=== PATIENT | male | born 1990 | race Two or more races ===

== ENCOUNTER 2016-12-29 13:28 | Inpatient (IN) | payer OTHER ==
--- NOTE | 2016-12-29 13:58 | PDOC ---
History of Present Illness - General History Source: EMS, Retirement Records, Old Records Exam Limitations: Clinical Condition - History of Present Illness Initial Comments: 12/29/16 16:01 The patient is a 26 year old male, with a significant past medical history of Cerebral palsy with spastic quadriparesis, severe developmental delay, Microcephaly, intractable seizures, cortical blindness, asthma, L hip Osteotomy , Scoliosis, Constipation, dysphagia BIBA from [facility] who presents to the emergency department s/p respiratory distress. As per EMS, the patient was found to be febrile, tachypneic, tachycardic and in respiratory distress saturating at 88%. Patient was sweating profusely in the [facility]. Patient received 2 Duonebs, additional nebulizer treatments and was suctioned. Subsequently, patient's O2 saturation zoila to 97% and was sent into the ED for further evaluation. Patient is a poor historian secondary to profound mental retardation. [facility] as patient is non verbal at baseline. Allergies: bee venom (honey bee), phenobarbita, pork derived (porcine) Past surgical history: See chart Social history: Noncontributory PCP: None <Bernice Riddle - Last Filed: 12/29/16 17:15> - General History Source: Retirement Records, Old Records Exam Limitations: Clinical Condition <Eboni Prasad - Last Filed: 12/30/16 09:19> - General Stated Complaint: RESPIRATORY Time Seen by Provider: 12/29/16 13:46 Past History <Bernice Riddle - Last Filed: 12/29/16 17:15> - Past Medical History Asthma: Yes COPD: Yes (asthma) GI Disorders: Yes (dysphagia, s/p peg insertion) Psychiatric Problems: (hyponatremia (due to meds)) Seizures: Yes - Surgical History Orthopedic Surgery: (Left Hip Osteotomy) - Immunization History Immunization Up to Date: Yes - Psycho/Social/Smoking Cessation Hx Suicidal Ideation: No Smoking History: Never smoked Have you smoked in the past 12 months: No Number of Cigarettes Smoked Daily: 0 Cigars Per Day: 0 Hx Alcohol Use: No Drug/Substance Use Hx: No Substance Use Type: None Hx Substance Use Treatment: No <Eboni Prasad - Last Filed: 12/30/16 09:19> - Past Medical History Allergies/Adverse Reactions: Allergies Allergy/AdvReac Type Severity Reaction Status Date / Time phenobarbital Allergy Verified 05/21/15 21:46 pork derived (porcine) Allergy Verified 05/21/15 21:46 venom-honey bee Allergy Verified 05/21/15 21:46 [bee venom (honey bee)] Home Medications: Ambulatory Orders Acetaminophen [Tylenol] 480 mg GT PRN PRN 01/19/15 Albuterol 2.5/Ipratropium 0.5 [Duoneb -] 1 neb IH QID PRN 01/19/15 Baclofen 20 mg PO BID 01/19/15 Cholecalciferol (Vitamin D3) [Vitamin D3] 2,000 unit GT DAILY 01/19/15 Clonidine HCl [Clonidine HCl ER] 0.2 mg PO HS 01/19/15 Diazepam *Pediatric Rectal* [Diastat *Pediatric Rectal Gel* -] 20 mg RC PRN Levetiracetam [Keppra Oral Solution -] 1,500 mg GT BID 01/19/15 Omeprazole [Prilosec] 20 mg GT DAILY 01/19/15 Budesonide [Pulmicort 0.5 mg Nebulizer -] 1 neb NEB BID 02/15/16 Tamsulosin HCl [Flomax -] 0.4 mg PO DAILY@0830 #30 cap.er.24h 02/25/16 Review of Systems - Review of Systems Able to Perform ROS?: No Comments:: 12/29/16 16:02 ROS unable to obtain due to clinical condition <Bernice Riddle - Last Filed: 12/29/16 17:15> *Physical Exam - Vital Signs Last Vital Signs Temp Pulse Resp BP Pulse Ox 98.2 F 129 H 22 122/88 98 12/29/16 13:57 12/29/16 13:57 12/29/16 13:57 12/29/16 13:57 12/29/16 13:57 - Physical Exam Comments: 12/29/16 16:02 GENERAL: The patient is in no acute distress. +contracted HEAD: Normal with no signs of trauma. EYES: PERRLA, EOMI, sclera anicteric, conjunctiva clear. ENT: Ears normal, nares patent, oropharynx clear without exudates. Moist mucous membranes. NECK: Normal range of motion, supple without lymphadenopathy, JVD, or masses. LUNGS: Breath sounds equal, clear to auscultation bilaterally. No wheezes, and no crackles. +Bilateral diffuse rhonchi. HEART:Regular rate and rhythm, normal S1 and S2 without murmur, rub or gallop. ABDOMEN: Soft, nontender, normoactive bowel sounds. No guarding, no rebound. EXTREMITIES: Normal range of motion, no edema. No clubbing or cyanosis. No erythema, or tenderness. NEUROLOGICAL: Cranial nerves II through XII grossly intact. No focal neurological deficits. MUSCULOSKELETAL: Back nontender to palpation, no CVA tenderness SKIN: Warm, Dry, normal turgor, no rashes or lesions noted. <Bernice Riddle - Last Filed: 12/29/16 17:15> Heart Score/ECG Review #1 ECG reviewed & interpreted by me at: 15:06 12/29/16 15:06 EKG: Sinus tachycardia rate of 109 bpm Chloride is normal Intervals: TN: 162ms, QRS:88ms, QTc: 417ms ? ST elevation II, t wave inversion v3 <Eboni Prasad - Last Filed: 12/30/16 09:19> ED Treatment Course - LABORATORY CBC & Chemistry Diagram: 12/29/16 14:26 12/29/16 14:00 <Bernice Riddle - Last Filed: 12/29/16 17:15> - LABORATORY CBC & Chemistry Diagram: 12/30/16 05:15 12/30/16 05:15 - RADIOLOGY Radiology Studies Ordered: Category Date Time Status CHEST X-RAY PORTABLE* [RAD] Stat Radiology 12/29/16 13:46 Ordered <Eboni Prasad - Last Filed: 12/30/16 09:19> Medical Decision Making - Medical Decision Making 12/29/16 14:23 Dr. Elizondo paged via phone answering service at 2:[address] Messina material handler floorperson, paged overhead at 2:24 PM <Bernice Riddle - Last Filed: 12/29/16 17:15> - Critical Care Time Total Critical Care Time (minutes): 60 Critical Care Statement: The care of this patient involved high complexity decision making to prevent further life threatening deterioration of the patient 's condition and/or to evalute & treat vital organ system(s) failure or risk of failure. - Medical Decision Making 12/29/16 13:57 A portion of this note was documented by scribe services under my direction. I have reviewed the details of the note, within reason, and agree with the documentation with the following case summary and management plan written by me. Nursing documentation reviewed and incorporated into medical decision making This is a 26 yo M from [place] who presents to the ER due to fevers, hypoxia and hypotension The patient is unable to give a history Per intermediate records, the patient was tachypneic, was give a neb which improved his hypoxia On examination: contractures Rhoncherous breath sounds diffusely No abd tendernesS??? Pt is 12/29/16 14:25 EKG concerning for ischemia I believe this is unlikely That said, will contact cardiology 12/29/16 15:14 Cardiology has seen this patient 12/29/16 16:11 Laboratory Tests 12/29/16 12/29/16 12/29/16 14:00 14:26 14:26 WBC 16.6 H D Hgb 14.2 D Hct 43.9 D Plt Count 316 Neutrophils % 86.4 H D Lymphocytes % 4.3 L D Sodium 137 Potassium 4.0 Chloride 99 Carbon Dioxide 26 BUN 11 Creatinine 0.7 D Random Glucose 68 L Lactic Acid 5.238 H* Creatine Kinase 628 H D Troponin I < 0.02 12/29/16 16:[address] Quintero Will admit to the ICU given temp 102, hypotension, elevated lactate, leukocytosis Given Vancomycin and Zosyn <Eboni Prasad - Last Filed: 12/30/16 09:19> *DC/Admit/Observation/Transfer - Attestations Scribe Attestion: 12/29/16 16:02 Documentation prepared by Bernice Riddle, acting as medical staff coordinator for Eboni Prasad MD/DO. <Brenice Riddle - Last Filed: 12/29/16 17:15> - Discharge Dispostion Admit: Yes <Eboni Prasad - Last Filed: 12/30/16 09:19> Diagnosis at time of Disposition: Sepsis Qualifiers: Sepsis type: sepsis due to unspecified organism Qualified Code(s): A41.9 - Sepsis, unspecified organism - Discharge Dispostion Condition at time of disposition: Guarded
[2016-12-29] MEDS ORDERED: SODIUM CHLORIDE 1,000 ML IV STA (14:08)
[2016-12-29 14:52] LABS: BASOPHIL 0.3 % (0-2.0); EOSINOPHIL 0.1 % (0-4.5); MCH 27.3 pg (25.7-33.7); MCHC 32.4 g/dl (32.0-35.9); MEAN CELL VOLUME 84.4 fl (80-96); MEAN PLT VOLUME 7.9 fl (7.5-11.1); NEUTROPHILS 86.4 % (42.8-82.8); PLATELET COUNT 316 K/MM3 (134-434); RDW 14.9 % (11.9-15.9); WHITE BLOOD COUNT 16.6 K/mm3 (4.0-10.0)
--- NOTE | 2016-12-29 15:05 | CON.CARD ---
[id number] Present Illness History of Present Illness: The patient is a 26 year old male, with a significant past medical history of Cerebral palsy with spastic quadriparesis, severe developmental delay, Microcephaly, intractable seizures, cortical blindness, asthma, L hip Osteotomy , Scoliosis, Constipation, dysphagia BIBA from [facility] who presents to the emergency department s/p respiratory distress. As per EMS, the patient was found to be febrile, tachypneic, tachycardic and in respiratory distress saturating at 88%. Patient was sweating profusely in the halfway. Patient received 2 Duonebs, additional nebulizer treatments and was suctioned. Subsequently, patient's O2 saturation zoila to 97% and was sent into the ED for further evaluation. Patient is a poor historian secondary to profound mental retardation. History provided by EMS, [facility] records as patient is non verbal at baseline. 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, Other (CP) Pulmonary: Yes: Asthma Musculoskeletal: Yes: Other (scoliosis) - Past Surgical History Past Surgical History: Yes: None - Alcohol/Substance Use Hx Alcohol Use: No History of Substance Use: reports: None - Smoking History Smoking history: Never smoked Have you smoked in the past 12 months: No Aproximately how many cigarettes per day: 0 - Social History Usual Living Arrangement: Half-Way ADL: Support Services History of Recent Travel: No Home Medications - Allergies Allergies/Adverse Reactions: Allergies Allergy/AdvReac Type Severity Reaction Status Date / Time phenobarbital Allergy Verified 05/21/15 21:46 pork derived (porcine) Allergy Verified 05/21/15 21:46 venom-honey bee Allergy Verified 05/21/15 21:46 [bee venom (honey bee)] - Home Medications Home Medications: Ambulatory Orders Acetaminophen [Tylenol] 480 mg GT PRN PRN 01/19/15 Albuterol 2.5/Ipratropium 0.5 [Duoneb -] 1 neb IH QID PRN 01/19/15 Baclofen 20 mg PO BID 01/19/15 Cholecalciferol (Vitamin D3) [Vitamin D3] 2,000 unit GT DAILY 01/19/15 Clonidine HCl [Clonidine HCl ER] 0.2 mg PO HS 01/19/15 Diazepam *Pediatric Rectal* [Diastat *Pediatric Rectal Gel* -] 20 mg RC PRN Levetiracetam [Keppra Oral Solution -] 1,500 mg GT BID 01/19/15 Omeprazole [Prilosec] 20 mg GT DAILY 01/19/15 Budesonide [Pulmicort 0.5 mg Nebulizer -] 1 neb NEB BID 02/15/16 Tamsulosin HCl [Flomax -] 0.4 mg PO DAILY@0830 #30 cap.er.24h 02/25/16 Review of Systems Unable to obtain ROS, reason: mental retarded; nonveral - Risk Factors Known Risk Factors: Yes: Physical Inactivity, Other (microencephaly) Vital Signs: Vital Signs Temperature 98.2 F 12/29/16 13:57 Pulse Rate 129 H 12/29/16 13:57 Respiratory Rate 22 12/29/16 13:57 Blood Pressure 122/88 12/29/16 13:57 O2 Sat by Pulse Oximetry (%) 98 12/29/16 13:57 Constitutional: Yes: Other (difficult to assess; appears in distress) Eyes: Yes: WNL HENT: Yes: Other (microencephaly; ? surgical scars of skull) Neck: Yes: Decreased ROM Respiratory: Yes: Tachypnea Gastrointestinal: Yes: Soft Renal/: No: Anuria Cardiovascular: Yes: Tachycardia JVD: No Carotid Bruit: No PMI: Non-Displaced Heart Sounds: Yes: S1, S2 Murmur: Yes: Systolic Murmur, Grade 2 Musculoskeletal: Yes: Muscle Weakness, Other (hands folded in and rigid; tremors of limbs) Edema: No Neurological: Yes: Pre-Existing Deficit, Tremors, Weakness Psychiatric: Yes: Other Imaging - Results EKG: Image Reviewed (sinus tachycardia; ST elevation 1 mV lead II; [address] depression V1, flat ST V2, mild depression V3) Problem List - Problems (1) Acute urinary retention Code(s): R33.8 - OTHER RETENTION OF URINE (2) Cerebral palsy Code(s): G80.9 - CEREBRAL PALSY, UNSPECIFIED Qualifiers: Cerebral palsy type: unspecified type Qualified Code(s): G80.9 - Cerebral palsy, unspecified (3) Hypoxemia Code(s): R09.02 - HYPOXEMIA (4) Lactic acidosis Assessment/Plan: markedly elevated latic acid; leukocytosis; tachypnea, tachycardia. F/u blood, urine cultures; on antibiotics. Code(s): E87.2 - ACIDOSIS (5) Pneumonia Code(s): J18.9 - PNEUMONIA, UNSPECIFIED ORGANISM Qualifiers: Pneumonia type: due to unspecified organism Laterality: left Lung location: lower lobe of lung Qualified Code(s): J18.1 - Lobar pneumonia, unspecified organism (6) Tachycardia Code(s): R00.0 - TACHYCARDIA, UNSPECIFIED (7) Tachypnea Code(s): R06.82 - TACHYPNEA, NOT ELSEWHERE CLASSIFIED (8) EKG abnormalities Assessment/Plan: EKG: sinus tachycardia; ?LAE; RAD; LVH; ST elevation lead II; R wave with mild ST depression V1 and V3. R/o infero-posterior NH, though pt is young, has LDL cholesterol 102, normal triglycerides and HDL 59 mg/dL. Septic. EKG with "posterior leads" (V7-9): no clear evidence of ST elevation. TNI serially (1st is 0.02). ECHO for LVEF, wall motion. TSH WNL. Consider IV heparin or Lovenox, statin. Treat septic state. Given pt's overall condition and mental status, I would recommend conservative therapy, even in the face of an NH. Code(s): R94.31 - ABNORMAL ELECTROCARDIOGRAM [ECG] [EKG] (9) Seizure Code(s): R56.9 - UNSPECIFIED CONVULSIONS
[2016-12-29 15:12] LABS: ALK PHOS 127 U/L (45-117); ANION GAP 12 (8-16); BILIRUBIN,TOTAL 0.3 mg/dL (0.2-1.0); CALCIUM 9.2 mg/dL (8.5-10.1); CO2 26 mmol/L (21-32); COCKROFT - GAULT 132.4; CREATININE 0.7 mg/dL (0.7-1.3); GLUCOSE,RANDOM 68 mg/dL (74-106); SGOT/AST 22 U/L (15-37); SGPT/ALT 34 U/L (12-78); TOT PROT 9.4 g/dl (6.4-8.2)
[2016-12-29 15:38] LABS: INR 1.25 (0.82-1.09); PROTHROMBIN TIME (PATIENT) 13.8 SEC (9.98-11.88)
[2016-12-29 15:40] LABS: ACTIVATED PTT 38.4 SECONDS (26.9-34.4)
[2016-12-29 15:50] LABS: CHOLESTEROL 168 mg/dL (50-200); LDL CHOLESTEROL (ONLY SJRH) 102 mg/dL (5-100)
[2016-12-29] MEDS ORDERED: PIPERACILLIN/TAZOB 3.375 GM/50 ML PRE-DOCKED IVPB ONE (15:52)
[2016-12-29] MEDS ORDERED: VANCOMYCIN 1,000 MG in DEXTROSE 5%-WATER - 250 ML IVPB ONE (15:52)
[2016-12-29 15:57] LABS: THYROID STIMULATING HORMONE 0.97 uIU/ml (0.358-3.74); TROPONIN I < 0.02 ng/ml (0.00-0.05)
[2016-12-29 15:59] LABS: URINE APPEARANCE CLEAR; URINE BILIRUBIN NEGATIVE (NEGATIVE); URINE BLOOD NEGATIVE (NEGATIVE); URINE COLOR STRAW; URINE GLUCOSE (UA) NEGATIVE (NEGATIVE); URINE KETONE NEGATIVE (NEGATIVE); URINE LEUK ESTERASE NEGATIVE (NEGATIVE); URINE NITRITE NEGATIVE (NEGATIVE); URINE PROTEIN NEGATIVE (NEGATIVE); URINE UROBILINOGEN NEGATIVE E.U./dl (0.2-1.0)
[2016-12-29] MEDS ORDERED: PIPERACILLIN/TAZOB 3.375 GM 50 ML IVPB ONE (16:06)
[2016-12-29] MEDS ORDERED: VANCOMYCIN 1 GRAM (PRE-DOCKED) 250 ML IVPB ONE (16:06)
[2016-12-29] MEDS ORDERED: ALBUTEROL SO4 0.083% IH SOL 2.5 MG/3 ML VIAL.NEB. NEB ONE ×2 (16:52→17:38)
[2016-12-29] MEDS ORDERED: methylPREDNISolone NA SUCC 125 MG/2 ML VIAL IVPB ONE (16:52)
--- NOTE | 2016-12-29 17:24 | HP ---
Admitting History and Physical - Admission Chief Complaint: hypoxia, tachycardia, tachypnea History of Present Illness: HPI: This is a 26 year old male of [facility] with PMHX of Cerebral palsy with spastic quadriparesis, severe developmental delay, Microcephaly, intractable seizures, cortical blindness, asthma, L hip Osteotomy, Scoliosis, Constipation, dysphagia BIBA presenting to the ED for resp distress. The patient is non verbal with MR at baseline. Information gathered from medical chart and ED record. Per EMS pt was diaphoretic, febrile, tachypneic and tachycardic with o2 saturation of 88% at [place]. He was given duonebs x2, suctioned and a third neb treatment with o2 sat rising to 97%. He is on chronic o2 There is an independent aid at the bedside. ED course: 1. Vanco/zosyn 2. Solumedrol 125mg 3. Lactic acid level 5.2 4. 1L bolus 5. EKG showed: Sinus tachycardia; ?LAE; RAD; LVH; ST elevation lead II; R wave with mild ST depression V1 and V3, posterior, seen by Cardiology r/o infero- posterior VT EKG with "posterior leads" (V7-9). 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, Other (CP) Pulmonary: Yes: Asthma Musculoskeletal: Yes: Other (scoliosis) - Past Surgical History Past Surgical History: Yes: None - Smoking History Smoking history: Never smoked Have you smoked in the past 12 months: No Aproximately how many cigarettes per day: 0 - Alcohol/Substance Use Hx Alcohol Use: No History of Substance Use: reports: None - Social History Usual Living Arrangement: Yes: Assisted Living ADL: Support Services History of Recent Travel: No Home Medications - Allergies Allergies/Adverse Reactions: Allergies Allergy/AdvReac Type Severity Reaction Status Date / Time phenobarbital Allergy Verified 05/21/15 21:46 pork derived (porcine) Allergy Verified 05/21/15 21:46 venom-honey bee Allergy Verified 05/21/15 21:46 [bee venom (honey bee)] - Home Medications Home Medications: Ambulatory Orders Acetaminophen [Tylenol] 480 mg GT PRN PRN 01/19/15 Albuterol 2.5/Ipratropium 0.5 [Duoneb -] 1 neb IH QID PRN 01/19/15 Baclofen 20 mg PO BID 01/19/15 Cholecalciferol (Vitamin D3) [Vitamin D3] 2,000 unit GT DAILY 01/19/15 Clonidine HCl [Clonidine HCl ER] 0.2 mg PO HS 01/19/15 Diazepam *Pediatric Rectal* [Diastat *Pediatric Rectal Gel* -] 20 mg RC PRN Levetiracetam [Keppra Oral Solution -] 1,500 mg GT BID 01/19/15 Omeprazole [Prilosec] 20 mg GT DAILY 01/19/15 Budesonide [Pulmicort 0.5 mg Nebulizer -] 1 neb NEB BID 02/15/16 Tamsulosin HCl [Flomax -] 0.4 mg PO DAILY@0830 #30 cap.er.24h 02/25/16 Review of Systems Unable to obtain ROS, reason: Non verbal at baseline Physical Examination Vital Signs: Vital Signs Temperature 97.6 F 12/29/16 15:33 Pulse Rate 79 12/29/16 15:33 Respiratory Rate 20 12/29/16 15:33 Blood Pressure 107/88 12/29/16 15:33 O2 Sat by Pulse Oximetry (%) 100 12/29/16 15:33 Constitutional: Yes: Diaphoresis Eyes: Yes: Conjunctiva Clear Neck: Yes: Supple Cardiovascular: Yes: Regular Rate and Rhythm, S1, S2 Respiratory: Yes: On Nasal O2, Rhonchi (bilateral), Other (gurgling) Gastrointestinal: Yes: Normal Bowel Sounds, Soft, Other (peg tube placed) Renal/: Yes: Qureshi Present (clear yellow urine) Extremities: Yes: Other (b/l UE contractrues) Edema: Yes (pedal edema +1) Integumentary: Yes: Other (PIV to B/l Lower extremeties) Neurological: Yes: Alert, Pre-Existing Deficit, Other (non verbal at baseline) Labs: CBC, BMP 12/29/16 14:26 12/29/16 14:00 Imaging - Results Chest X-ray: Report Reviewed (no acute pathology) Problem List - Problems (1) EKG abnormalities Code(s): R94.31 - ABNORMAL ELECTROCARDIOGRAM [ECG] [EKG] (2) Sepsis Code(s): A41.9 - SEPSIS, UNSPECIFIED ORGANISM Qualifiers: Sepsis type: sepsis due to unspecified organism Qualified Code(s): A41.9 - Sepsis, unspecified organism (3) Cerebral palsy Code(s): G80.9 - CEREBRAL PALSY, UNSPECIFIED Qualifiers: Cerebral palsy type: unspecified type Qualified Code(s): G80.9 - Cerebral palsy, unspecified (4) Hypoxemia Code(s): R09.02 - HYPOXEMIA (5) Lactic acidosis Code(s): E87.2 - ACIDOSIS (6) Pneumonia Code(s): J18.9 - PNEUMONIA, UNSPECIFIED ORGANISM Qualifiers: Pneumonia type: due to unspecified organism Laterality: left Lung location: lower lobe of lung Qualified Code(s): J18.1 - Lobar pneumonia, unspecified organism (7) Seizure Code(s): R56.9 - UNSPECIFIED CONVULSIONS (8) Tachycardia Code(s): R00.0 - TACHYCARDIA, UNSPECIFIED (9) Tachypnea Code(s): R06.82 - TACHYPNEA, NOT ELSEWHERE CLASSIFIED Assessment/Plan Assessment: 26 year old male admitted with lactic acidemia, PNA, and hypoxemia Plan: 1. Sepsis d/t possible HCAP - CXR negative for acute pathology - s/p vanco/zosyn in ED - Continue zosyn - Continue solumedrol for gurgling and rhonchi 40mg q8 - Duo nebs q4 magda - IVF @ 100cc/hr - Continue supplemental o2 - Repeat lactic acid level in 4 hrs - Sputum cx - CXR in AM - Follow blood and urine cultures - Viral panel - ICU monitoring - ID consulted 2. Lactic acidemia - Repeat level @1900 - Cont IVF; bolus as needed 3. Ischemic changes - Trop x1 negative - Cont serial trops - ECHO in AM assess LV - Cardiology seeing 4. Seizure - Continue Keppra 5. Chronic urinary retention - Flomax daily - Admitted with qureshi 6. HTN - Hold Clonidine 7. Hypoxemia - Improved with breathing treatment - Continue supplemental O2 - Follow ABG Visit type - Emergency Visit Emergency Visit: Yes ED Registration Date: 12/29/16 Care time: The patient presented to the Emergency Department on the above date and was hospitalized for further evaluation of their emergent condition. - New Patient This patient is new to me today: Yes Date on this admission: 12/30/16 - Critical Care Critical Care patient: No
[2016-12-29] MEDS ORDERED: methylPREDNISolone NA SUCC 125 MG/2 ML VIAL ONE (17:35)
[2016-12-29] MEDS ORDERED: IPRATROPIUM BR 0.02% 0.5 MG/2.5 ML VIAL.NEB. NEB ONE (17:35)
[2016-12-29] MEDS ORDERED: INSULIN REGULAR HUMAN 100 UNITS/ML *VIAL ONE (17:36)
[2016-12-29] MEDS ORDERED: SODIUM CHLORIDE 1,000 ML IV SCH (18:15)
[2016-12-29 18:59] LABS: ALLENS TEST POSITIVE; ARTERIAL BLD GAS O2 SATURATION 99.9 % (90-98.9); ARTERIAL BLOOD GAS BASE EXCESS -1.7 meq/l (-2-2)
[2016-12-29 19:00] LABS: ART PUNCT SITE LEFT RADIAL; ARTERIAL BLOOD GAS HCO3 18.8 meq/L (22-26); ARTERIAL BLOOD GAS pH 7.54 (7.35-7.45); LPM/O2% 3L; PT. ON O2? YES; TYPE OF O2 NASAL
[2016-12-29] MEDS: methylPREDNISolone NA SUCC 40 MG/1 ML VIAL IVPB SCH (19:00)
[2016-12-29] MEDS: ALBUTEROL SO4 2.5/IPRATROPIUM 0.5 INH SOL 3 ML VIAL.NEB. NEB SCH (19:00)
[2016-12-29] MEDS ORDERED: ALBUTEROL SO4 2.5/IPRATROPIUM 0.5 INH SOL 3 ML VIAL.NEB. NEB ONE ×2 (20:16→20:31)
[2016-12-29] MEDS ORDERED: methylPREDNISolone NA SUCC 40 MG/1 ML VIAL ONE (20:17)
[2016-12-29] MEDS ORDERED: levETIRAcetam 500 MG/5 ML ORAL SOLUTION (UNIT-DOSE CUPS) GT SCH (22:00)
[2016-12-29] MEDS ORDERED: SODIUM CHLORIDE 0.9% 1000 ML INFUS.BAG IV ONE (22:02)
[2016-12-29] MEDS ORDERED: levETIRAcetam 500 MG/5 ML INJECTION VIAL IVPB ONE (22:17)
--- NOTE | 2016-12-29 22:20 | EKG ---
Test Reason : Blood Pressure : / mmHG Vent. Rate : 109 BPM Atrial Rate : 109 BPM P-R Int : 162 ms QRS Dur : 088 ms QT Int : 310 ms P-R-T Axes : 048 082 054 degrees QTc Int : 417 ms SINUS TACHYCARDIA POSSIBLE LEFT ATRIAL ENLARGEMENT LEFT VENTRICULAR HYPERTROPHY INFERIOR-POSTERIOR INFARCT (CITED ON OR BEFORE 19-JAN-2015) ABNORMAL ECG WHEN COMPARED WITH ECG OF 18-FEB-2016 22:32, VENT. RATE HAS DECREASED Confirmed by ANJU ALMEIDA MD ([id number]) on 12/29/2016 10:19:40 PM Referred By: Confirmed By:ANJU ALMEIDA MD
--- NOTE | 2016-12-29 22:22 | CONSULT ---
Consult Consult Specialty:: Pulm/Critical Crae Reason for Consultation:: Sepsis, Hypoxemia - History of Present Illness Chief Complaint: Pt admitted to ICU for sepsis and hypoxemia History of Present Illness: This is a 26 y/o male who is a resident at [facility] with pmhx of Cerebral palsy with spastic quadriparesis, severe developmental delay with Intellectual Disability, Microcephaly, Seizure d/o, Cortical blindness, asthma, scoliosis, constipation, dysphagia s/p Peg insertion, who was BIBA today for respiratory distress. As per notes, pt was tachypneic, febrile, diaphoretic and tahcycardic with an SPO2 of 88%. He was given duonebs x2, suctioned and after 3rd neb treatment his spo2 increased to 97%. In the ED pt received a 1L NS bolus, blood culture and urine culture obtained and started on Vanco and Zosyn. Initial labs with lactic acidosis which improved post NS bolus. CXR with no acute pathology. Pt admitted to ICU for further medical care and monitoring. 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 (Cerebral Palsy, Intellectual Disability) Pulmonary: Yes: Asthma Musculoskeletal: Yes: Other (scoliosis) - Past Surgical History Past Surgical History: Yes: None - Alcohol/Substance Use Hx Alcohol Use: No History of Substance Use: reports: None - Smoking History Smoking history: Never smoked Have you smoked in the past 12 months: No Aproximately how many cigarettes per day: 0 - Social History Usual Living Arrangement: Correction ADL: Support Services History of Recent Travel: No Home Medications - Allergies Allergies/Adverse Reactions: Allergies Allergy/AdvReac Type Severity Reaction Status Date / Time phenobarbital Allergy Verified 05/21/15 21:46 pork derived (porcine) Allergy Verified 05/21/15 21:46 venom-honey bee Allergy Verified 05/21/15 21:46 [bee venom (honey bee)] - Home Medications Home Medications: Ambulatory Orders Acetaminophen [Tylenol] 480 mg GT PRN PRN 01/19/15 Albuterol 2.5/Ipratropium 0.5 [Duoneb -] 1 neb IH QID PRN 01/19/15 Baclofen 20 mg PO BID 01/19/15 Cholecalciferol (Vitamin D3) [Vitamin D3] 2,000 unit GT DAILY 01/19/15 Clonidine HCl [Clonidine HCl ER] 0.2 mg PO HS 01/19/15 Diazepam *Pediatric Rectal* [Diastat *Pediatric Rectal Gel* -] 20 mg RC PRN Levetiracetam [Keppra Oral Solution -] 1,500 mg GT BID 01/19/15 Omeprazole [Prilosec] 20 mg GT DAILY 01/19/15 Budesonide [Pulmicort 0.5 mg Nebulizer -] 1 neb NEB BID 02/15/16 Tamsulosin HCl [Flomax -] 0.4 mg PO DAILY@0830 #30 cap.er.24h 02/25/16 Physical Exam Vital Signs: Vital Signs Temperature 97.6 F 12/29/16 15:33 Pulse Rate 110 H 12/29/16 20:01 Respiratory Rate 25 H 12/29/16 20:01 Blood Pressure 104/50 12/29/16 20:01 O2 Sat by Pulse Oximetry (%) 98 12/29/16 20:55 Constitutional: Yes: No Distress, Calm, Diaphoresis HENT: Yes: Drooling, Other (Microcephaly) Neck: Yes: Supple, Trachea Midline Cardiovascular: Yes: Tachycardia, S1, S2 Respiratory: Yes: Rhonchi, Tachypnea Gastrointestinal: Yes: Normal Bowel Sounds, Soft, Other (PEG insertion site with erythema) ...Rectal Exam: Yes: Deferred Renal/: Yes: Werner Present Extremities: Yes: Other (B/L UE contractures) Edema: LUE: Trace, RUE: Trace, LLE: Trace, RLE: Trace Peripheral Pulses WNL: Yes Integumentary: Yes: WNL Neurological: Yes: Pre-Existing Deficit Labs: ABG Results ABG pH 7.54 (7.35-7.45) H 12/29/16 18:42 ABG pCO2 at Pt Temp 21.9 mmHg (35-45) L D 12/29/16 18:42 ABG pO2 at Pt Temp 209.0 mmHg (80-100) H* 12/29/16 18:42 ABG HCO3 18.8 meq/L (22-26) L 12/29/16 18:42 ABG O2 Sat (Measured) 99.9 % (90-98.9) H* 12/29/16 18:42 ABG O2 Content 19.6 % vol (15-22) 12/29/16 18:42 ABG Base Excess -1.7 meq/l (-2-2) 12/29/16 18:42 CBCD WBC 16.6 K/mm3 (4.0-10.0) H D 12/29/16 14:26 RBC 5.21 M/mm3 (4.00-5.60) D 12/29/16 14:26 Hgb 14.2 GM/dL (11.7-16.9) D 12/29/16 14:26 Hct 43.9 % (35.4-49) D 12/29/16 14:26 MCV 84.4 fl (80-96) 12/29/16 14:26 MCHC 32.4 g/dl (32.0-35.9) 12/29/16 14:26 RDW 14.9 % (11.9-15.9) 12/29/16 14:26 Plt Count 316 K/MM3 (134-434) 12/29/16 14:26 MPV 7.9 fl (7.5-11.1) 12/29/16 14:26 CMP Sodium 137 mmol/L (136-145) 12/29/16 14:00 Potassium 4.0 mmol/L (3.5-5.1) 12/29/16 14:00 Chloride 99 mmol/L (98-107) 12/29/16 14:00 Carbon Dioxide 26 mmol/L (21-32) 12/29/16 14:00 Anion Gap 12 (8-16) 12/29/16 14:00 BUN 11 mg/dL (7-18) 12/29/16 14:00 Creatinine 0.7 mg/dL (0.7-1.3) D 12/29/16 14:00 Creat Clearance w eGFR > 60 (>60) 12/29/16 14:00 Calcium 9.2 mg/dL (8.5-10.1) 12/29/16 14:00 Total Bilirubin 0.3 mg/dL (0.2-1.0) 12/29/16 14:00 AST 22 U/L (15-37) 12/29/16 14:00 ALT 34 U/L (12-78) 12/29/16 14:00 Alkaline Phosphatase 127 U/L (45-117) H 12/29/16 14:00 Total Protein 9.4 g/dl (6.4-8.2) H D 12/29/16 14:00 Albumin 4.0 g/dl (3.4-5.0) D 12/29/16 14:00 Hepatic Panel Total Bilirubin 0.3 mg/dL (0.2-1.0) 12/29/16 14:00 AST 22 U/L (15-37) 12/29/16 14:00 ALT 34 U/L (12-78) 12/29/16 14:00 Alkaline Phosphatase 127 U/L (45-117) H 12/29/16 14:00 Albumin 4.0 g/dl (3.4-5.0) D 12/29/16 14:00 Imaging - Results Chest X-ray: Image Reviewed (Poor inspiratory result, questionnable LLL pneumonia as diaphragm not well appreciated) Problem List - Problems (1) Sepsis Code(s): A41.9 - SEPSIS, UNSPECIFIED ORGANISM Qualifiers: Sepsis type: sepsis due to unspecified organism Qualified Code(s): A41.9 - Sepsis, unspecified organism (2) Hypoxemia Code(s): R09.02 - HYPOXEMIA (3) Lactic acidosis Code(s): E87.2 - ACIDOSIS (4) Pneumonia Code(s): J18.9 - PNEUMONIA, UNSPECIFIED ORGANISM Qualifiers: Pneumonia type: due to unspecified organism Laterality: left Lung location: lower lobe of lung Qualified Code(s): J18.1 - Lobar pneumonia, unspecified organism (5) Seizure Code(s): R56.9 - UNSPECIFIED CONVULSIONS (6) Tachycardia Code(s): R00.0 - TACHYCARDIA, UNSPECIFIED (7) Tachypnea Code(s): R06.82 - TACHYPNEA, NOT ELSEWHERE CLASSIFIED Assessment/Plan A: This is a 26 y/o male who is a resident at [facility] with a pmhx of Cerebral Palsy with spastic qaudriparesis, severe developmental delay and subsequent Intellectual Disability, Microcephaly, Seizures, cortical blindness, scoliosis and PEG insertion secondary to dysphagia who is now admitted to ICU with sepsis, possible HCAP. P: 1. 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 Lactic acidosis -Improving with fluid resuscitation -cont to trend 3. Hypoxemia -Possible secondary to LLL HCAP -Cont to trend SPO2 -pulimcort 0.5mg nebs bid -albuterol nebs prn 4. Seizure D/o -Keppra 1500mg IV [id number] as unable to access PEG Thank you for this interesting consult. Pt is critically ill. CCT 45 mins not including procedures
[2016-12-29] MEDS: levETIRAcetam 500 MG/5 ML INJECTION VIAL IVPB SCH (22:38)
[2016-12-30] MEDS: ALBUTEROL SO4 2.5/IPRATROPIUM 0.5 INH SOL 3 ML VIAL.NEB. NEB SCH ×4 (00:45→17:27)
[2016-12-30 01:35] VITALS: BMI 20.5
[2016-12-30] MEDS ORDERED: SODIUM CHLORIDE 0.9% 500 ML INFUS.BAG IV ONE (01:45)
[2016-12-30 02:17] LABS: ALLENS TEST POSITIVE; ART PUNCT SITE RIGHT RADIAL; ARTERIAL BLD GAS O2 SATURATION 95.2 % (90-98.9); ARTERIAL BLOOD GAS BASE EXCESS -5.1 meq/l (-2-2); ARTERIAL BLOOD GAS PO2 85.2 mmHg (80-100); ARTERIAL BLOOD GAS pH 7.37 (7.35-7.45); LPM/O2% 2L; PT. ON O2? YES; TYPE OF O2 NASAL
[2016-12-30 02:18] LABS: ARTERIAL BLOOD GAS HCO3 18.6 meq/L (22-26); PT'S TEMP 100.4
[2016-12-30] MEDS: PIPERACILLIN/TAZOB 3.375 GM/50 ML PRE-DOCKED IVPB SCH ×3 (02:39→17:29)
[2016-12-30] MEDS: methylPREDNISolone NA SUCC 40 MG/1 ML VIAL IVPB SCH ×3 (02:39→17:29)
[2016-12-30] MEDS: BACITRACIN 15 GM TUBE TOPICAL OINTMENT TP SCH ×3 (03:00→21:31)
[2016-12-30 06:12] LABS: BASOPHIL 0.2 % (0-2.0); MCH 27.9 pg (25.7-33.7); MCHC 33.4 g/dl (32.0-35.9); MEAN CELL VOLUME 83.6 fl (80-96); MEAN PLT VOLUME 8.1 fl (7.5-11.1); NEUTROPHILS 82.8 % (42.8-82.8); PLATELET COUNT 278 K/MM3 (134-434); RDW 14.9 % (11.9-15.9); WHITE BLOOD COUNT 5.8 K/mm3 (4.0-10.0)
[2016-12-30 06:35] LABS: ALBUMIN 3.3 g/dl (3.4-5.0); ANION GAP 11 (8-16); CALCIUM 8.6 mg/dL (8.5-10.1); CO2 22 mmol/L (21-32); GLUCOSE,RANDOM 99 mg/dL (74-106); MAGNESIUM 2.1 mg/dL (1.8-2.4); PHOSPHOROUS 3.6 mg/dL (2.5-4.9); SGOT/AST 33 U/L (15-37)
[2016-12-30 06:37] LABS: ALK PHOS 101 U/L (45-117); BILIRUBIN,TOTAL 0.3 mg/dL (0.2-1.0); CREATININE 0.5 mg/dL (0.7-1.3); SGPT/ALT 32 U/L (12-78); TOT PROT 7.8 g/dl (6.4-8.2)
[2016-12-30 06:52] LABS: COCKROFT - GAULT 155.32
--- NOTE | 2016-12-30 06:59 | PN ---
Physical Exam: SUBJECTIVE: Patient seen and examined patient lying in bed. Patient spikes of fever has decreased. will get influenza a and b rapid. follow cultures source of infection not clear, cxr reviewed: no infiltarte. Lactic acid is still elevated, will give him bolus of iv fluid and trend lactic acid b/l ronchi present, on solumedrol and duoneb, maintaing a saturation of 94 on 4L ECHO pending on zosyn and vanco. OBJECTIVE: Vital Signs Period Temp Pulse Resp BP Sys/Don Pulse Ox Last 24 Hr 99.7 F-100.6 F 108-142 22-31 91-137/50-95 97-98 GENERAL: The patient is awake, HEAD: Normal with no signs of trauma. EYES: PERRL, NECK: Trachea midline, LUNGS: Breath sounds equal, diffuse ronchi b/l HEART: Regular rate and rhythm, S1, S2 without murmur, rub or gallop. ABDOMEN: Soft, nontender, nondistended, normoactive bowel sounds, no guarding, no rebound, peg in situ . EXTREMITIES: 2+ pulses, warm, . SKIN: Warm, dry, Laboratory Results - last 24 hr 12/29/16 12/29/16 12/29/16 18:26 18:42 20:15 WBC RBC Hgb Hct MCV MCHC RDW Plt Count MPV Neutrophils % Lymphocytes % Monocytes % Eosinophils % Basophils % Anticoagulation Therapy Y Puncture Site Left radial Patient Temperature ABG pH 7.54 H ABG pCO2 at Pt Temp 21.9 L D ABG pO2 at Pt Temp 209.0 H* ABG HCO3 18.8 L ABG O2 Sat (Measured) 99.9 H* ABG O2 Content 19.6 ABG Base Excess -1.7 Richy Test Positive O2 Delivery Device Nasal Oxygen Flow Rate 3l Vent Mode Y Vent Rate Y Mechanical Rate Y PEEP 0.0 Pressure Support Vent Y Sodium Potassium Chloride Carbon Dioxide Anion Gap BUN Creatinine Creat Clearance w eGFR Random Glucose Lactic Acid 2.377 H* 2.820 H* Calcium Phosphorus Magnesium Total Bilirubin AST ALT Alkaline Phosphatase Total Protein Albumin 12/30/16 12/30/16 12/30/16 02:14 05:15 05:15 WBC 5.8 D RBC 4.21 Hgb 11.8 D Hct 35.1 L D MCV 83.6 MCHC 33.4 RDW 14.9 Plt Count 278 MPV 8.1 Neutrophils % 82.8 Lymphocytes % 14.9 D Monocytes % 2.1 L Eosinophils % 0.0 D Basophils % 0.2 Anticoagulation Therapy Puncture Site Right radial Patient Temperature 100.4 ABG pH 7.37 D ABG pCO2 at Pt Temp 33.1 L D ABG pO2 at Pt Temp 85.2 D ABG HCO3 18.6 L ABG O2 Sat (Measured) 95.2 ABG O2 Content 15.0 ABG Base Excess -5.1 L Richy Test Positive O2 Delivery Device Nasal Oxygen Flow Rate 2l Vent Mode Vent Rate Mechanical Rate PEEP 0.0 Pressure Support Vent Sodium 139 Potassium 4.2 Chloride 106 Carbon Dioxide 22 Anion Gap 11 BUN 4 L D Creatinine 0.5 L D Creat Clearance w eGFR > 60 Random Glucose 99 D Lactic Acid Calcium 8.6 Phosphorus 3.6 Magnesium 2.1 Total Bilirubin 0.3 AST 33 D ALT 32 Alkaline Phosphatase 101 D Total Protein 7.8 Albumin 3.3 L Active Medications Generic Name Dose Route Start Last Admin Trade Name Freq PRN Reason Stop Dose Admin Albuterol/Ipratropium 1 amp 12/29/16 18:00 12/30/16 06:00 Duoneb - NEB 1 amp QIDR ALEKSANDR Administration Bacitracin 1 applic 12/30/16 02:30 12/30/16 03:00 Bacitracin - TP 1 applic BID ALEKSANDR Administration Sodium Chloride 1,000 mls @ 100 mls/hr 12/29/16 18:15 12/29/16 20:56 Normal Saline - IV 100 mls/hr ASDIR ALEKSANDR Administration Levetiracetam 1,500 mg 12/29/16 22:30 12/29/16 22:38 Keppra Injection - IVPB 1,500 mg BID ALEKSANDR Administration Methylprednisolone Sodium Succinate 40 mg 12/29/16 18:00 12/30/16 02:39 Solu-Medrol - IVPB 40 mg Q8H-IV ALEKSANDR Administration Piperacillin Sod/Tazobactam Sod 3.375 gm 12/30/16 02:00 12/30/16 02:39 Zosyn 3.375gm Ivpb (Pre-Docked) IVPB 3.375 gm Q8H-IV ALEKSANDR Administration Protocol Tamsulosin HCl 0.4 mg 12/30/16 08:30 Flomax - PO DAILY@0830 ALEKSANDR Microbiology 12/29/16 14:26 Blood - Peripheral Venous Blood Culture - Preliminary NO GROWTH OBTAINED AFTER 24 HOURS, INCUBATION TO CONTINUE FOR 4 DAYS. 12/30/16 02:40 Nasopharyngeal Swab Influenza Types A,B Antigen (DIEGO) - Final 12/30/16 02:40 Nasopharyngeal Swab - Final 12/29/16 15:50 Urine - Urine - Catheterized Urine Culture - Final NO GROWTH OBTAINED 12/29/16 14:55 Blood - Peripheral Venous Blood Culture - Preliminary Pending Organism 12/30/16 02:40 Urine For Antigen Detection Legionella Antigen - Final ASSESSMENT/PLAN: 1. Sepsis - source not clear - wbc 5.8, spikes of fever decreased - CXR negative for acute pathology - continue with vanco and zosyn - IVF @ 100cc/hr - Continue supplemental o2 - lactic acid still high, will give him bolus of Iv fluid - follow blood, urine culture, influenza - ID consulted consult appreciated 2. Lactic acidemia - due to sepsis - trend lactic acid - on iv fluid - keep spo2> 90 and MAP > 65 3. Ischemic changes - Trop x1 negative - ECHO pending - started on aspirin and statin ( elevated LDL ) - allergic to porcine, so cant start on lovenox and heparin. - If AC required can start him on argatroban - cardiology on case 4. h/o Seizure - Continue Keppra 1500mg bid 5. Chronic urinary retention - Flomax daily 6. HTN - Clonidine on hold due to sepsis 7. Hypoxemia could be due to asthma excerbration - Continue supplemental O2 continue solumedrol 40mg bid continue duoneb keep spo2> 90 on venturi 4L fluid: NS 100ml/hr electrolyte: repeat in am nutrition : tube feed gi pro zantac dvt pro: scd b/l dispo: transfer to med surg Visit type - Emergency Visit Emergency Visit: Yes ED Registration Date: 12/29/16 Care time: The patient presented to the Emergency Department on the above date and was hospitalized for further evaluation of their emergent condition. - New Patient This patient is new to me today: Yes Date on this admission: 12/30/16 - Critical Care Critical Care patient: Yes Total Critical Care Time (in minutes): 45 Critical Care Statement: The care of this patient involved high complexity decision making to prevent further life threatening deterioration of the patient 's condition and/or to evalute & treat vital organ system(s) failure or risk of failure.
[2016-12-30] MEDS ORDERED: SODIUM CHLORIDE 500 ML IV STA (08:00)
[2016-12-30] MEDS ORDERED: TAMSULOSIN HCL 0.4 MG CAP.ER.24H (FP) PO SCH (08:30)
--- NOTE | 2016-12-30 08:43 | PN ---
Progress Note, Physician Chief Complaint: ID Full note dictated Vancomycin dose zosyn given Low grade fevers - Current Medication List Current Medications: Active Medications Albuterol/Ipratropium (Duoneb -) 1 amp NEB QIDR [facility] Last Admin: 12/30/16 06:00 Dose: 1 amp Atorvastatin Calcium (Lipitor -) 20 mg PO [facility] Bacitracin (Bacitracin -) 1 applic TP BID [facility] Last Admin: 12/30/16 03:00 Dose: 1 applic Sodium Chloride (Normal Saline -) 1,000 mls @ 100 mls/hr IV ASDIR [facility] Last Admin: 12/29/16 20:56 Dose: 100 mls/hr Sodium Chloride (Normal Saline -) 500 mls @ 500 mls/hr IV ASDIR STA Stop: 12/30/16 08:59 Last Admin: 12/30/16 08:31 Dose: 500 mls/hr Levetiracetam (Keppra Injection -) 1,500 mg IVPB BID [facility] Last Admin: 12/29/16 22:38 Dose: 1,500 mg Methylprednisolone Sodium Succinate (Solu-Medrol -) 40 mg IVPB Q8H-IV [facility] Last Admin: 12/30/16 02:39 Dose: 40 mg Piperacillin Sod/Tazobactam Sod (Zosyn 3.375gm Ivpb (Pre-Docked)) 3.375 gm IVPB Q8H-IV [facility] PRN Reason: Protocol Last Admin: 12/30/16 02:39 Dose: 3.375 gm Tamsulosin HCl (Flomax -) 0.4 mg PO DAILY@0830 [facility] - Objective Vital Signs: Vital Signs Temperature 99.8 F H 12/30/16 06:00 Pulse Rate 114 H 12/30/16 06:00 Respiratory Rate 25 H 12/30/16 06:00 Blood Pressure 124/72 12/30/16 06:00 O2 Sat by Pulse Oximetry (%) 97 12/29/16 22:00 Cardiovascular: Yes: Regular Rate and Rhythm, Tachycardia, S1, S2 Respiratory: Yes: Rhonchi Gastrointestinal: Yes: Soft Edema: No Labs: CBC, BMP 12/30/16 05:15 12/30/16 05:15 INR, PTT INR 1.25 (0.82-1.09) H 12/29/16 14:26 Problem List - Problems (1) Sepsis Code(s): A41.9 - SEPSIS, UNSPECIFIED ORGANISM Qualifiers: Sepsis type: sepsis due to unspecified organism Qualified Code(s): A41.9 - Sepsis, unspecified organism (2) Cerebral palsy Code(s): G80.9 - CEREBRAL PALSY, UNSPECIFIED Qualifiers: Cerebral palsy type: unspecified type Qualified Code(s): G80.9 - Cerebral palsy, unspecified Assessment/Plan Laboratory Tests 12/29/16 12/29/16 12/29/16 14:26 14:26 15:50 WBC 16.6 H D Hgb Hct Plt Count ABG pH Oxygen Flow Rate Lactic Acid 5.238 H* Urine Nitrite Negative 12/30/16 12/30/16 02:14 05:15 WBC 5.8 D Hgb 11.8 D Hct 35.1 L D Plt Count 278 ABG pH 7.37 D Oxygen Flow Rate 2l Lactic Acid Urine Nitrite Assessment Sepsis syndrome ? bacteremia Source of sepsis unclear Chest xray difficult to interpret Severe MR Respiratory distress Plan Pending cultures await continue with Sri Womack MD
[2016-12-30] MEDS ORDERED: PT OWN MED DRAWER 7, Y5N ONE (09:34)
[2016-12-30] MEDS: levETIRAcetam 500 MG/5 ML INJECTION VIAL IVPB SCH ×2 (09:36→21:32)
--- NOTE | 2016-12-30 09:52 | PN ---
Progress Note, Physician History of Present Illness: The patient is a 26 year old male, with a significant past medical history of Cerebral palsy with spastic quadriparesis, severe developmental delay, Microcephaly, intractable seizures, cortical blindness, asthma, L hip Osteotomy , Scoliosis, Constipation, dysphagia BIBA from [facility] who presents to the emergency department s/p respiratory distress. As per EMS, the patient was found to be febrile, tachypneic, tachycardic and in respiratory distress saturating at 88%. Patient was sweating profusely in the [facility]. Patient received 2 Duonebs, additional nebulizer treatments and was suctioned. Subsequently, patient's O2 saturation zoila to 97% and was sent into the ED for further evaluation. Patient is a poor historian secondary to profound mental retardation. History provided by EMS, [facility] records as patient is non verbal at baseline. Allergies: bee venom (honey bee), phenobarbital, pork derived (porcine) Past surgical history: See chart Social history: Noncontributory PCP: None - Current Medication List Current Medications: Active Medications Albuterol/Ipratropium (Duoneb -) 1 amp NEB QIDR [facility] Last Admin: 12/30/16 06:00 Dose: 1 amp Atorvastatin Calcium (Lipitor -) 20 mg PO HS ALEKSANDR Bacitracin (Bacitracin -) 1 applic TP BID [facility] Last Admin: 12/30/16 09:46 Dose: 1 applic Sodium Chloride (Normal Saline -) 1,000 mls @ 100 mls/hr IV ASDIR [facility] Last Admin: 12/29/16 20:56 Dose: 100 mls/hr Vancomycin HCl 750 mg/ (Dextrose) 250 mls @ 250 mls/hr IVPB BID [facility] PRN Reason: Protocol Last Admin: 12/30/16 09:37 Dose: 250 mls/hr Levetiracetam (Keppra Injection -) 1,500 mg IVPB BID [facility] Last Admin: 12/30/16 09:36 Dose: 1,500 mg Methylprednisolone Sodium Succinate (Solu-Medrol -) 40 mg IVPB Q8H-IV [facility] Last Admin: 12/30/16 09:37 Dose: 40 mg Piperacillin Sod/Tazobactam Sod (Zosyn 3.375gm Ivpb (Pre-Docked)) 3.375 gm IVPB Q8H-IV ALEKSANDR PRN Reason: Protocol Last Admin: 12/30/16 09:37 Dose: 3.375 gm Tamsulosin HCl (Flomax -) 0.4 mg PO DAILY@0830 [facility] - Objective Vital Signs: Vital Signs Temperature 99.8 F H 12/30/16 06:00 Pulse Rate 114 H 12/30/16 06:00 Respiratory Rate 25 H 12/30/16 06:00 Blood Pressure 124/72 12/30/16 06:00 O2 Sat by Pulse Oximetry (%) 97 12/29/16 22:00 Eyes: Yes: WNL, Conjunctiva Clear, EOM Intact HENT: Yes: WNL, Atraumatic, Normocephalic Neck: Yes: WNL, Supple, Trachea Midline Cardiovascular: Yes: WNL, Regular Rate and Rhythm Respiratory: Yes: WNL, Regular, CTA Bilaterally Gastrointestinal: Yes: WNL, Normal Bowel Sounds Genitourinary: Yes: WNL Musculoskeletal: Yes: WNL Extremities: Yes: WNL Edema: No Integumentary: Yes: WNL Neurological: Yes: Lethargy ...Motor Strength: WNL Psychiatric: Yes: WNL Labs: CBC, BMP 12/30/16 05:15 12/30/16 05:15 INR, PTT INR 1.25 (0.82-1.09) H 12/29/16 14:26 Assessment/Plan sepsis cerebral palsy HLP Ashley supportive care abx echo
[2016-12-30] MEDS ORDERED: VANCOMYCIN 750 MG in DEXTROSE 5%-WATER - 250 ML IVPB SCH (10:00)
--- NOTE | 2016-12-30 12:51 | PN ---
Teaching Attending Note Name of Resident: Supa Blackwell ATTENDING PHYSICIAN STATEMENT I saw and evaluated the patient. I reviewed the resident's note and discussed the case with the resident. I agree with the resident's findings and plan as documented. SUBJECTIVE: Pt seen and examined in the ICU. Fever curve trending down. Pt nonverbal. Hemodynamically stable. Lactate remains elevated. OBJECTIVE: Last Vital Signs Temp Pulse Resp BP Pulse Ox 98.6 F 90 18 122/70 98 12/30/16 11:00 12/30/16 11:00 12/30/16 11:00 12/30/16 11:00 12/30/16 10:36 Intake & Output 12/27/16 12/28/16 12/29/16 12/30/16 23:59 23:59 23:59 23:59 Intake Total 1200 1360 Output Total 800 1200 Balance 400 160 Weight 104 lb 12.8 oz 107 lb 3.2 oz Gen: mildly tachypneic at rest Heart: RRR Lung: bilateral rhonchi Abd: soft, nontender Ext: no edema, contracted CBC, BMP 12/30/16 05:15 12/30/16 05:15 Active Medications Albuterol/Ipratropium (Duoneb -) 1 amp NEB QIDR [facility] Last Admin: 12/30/16 12:10 Dose: 1 amp Aspirin (Asa -) 81 mg PO DAILY [facility] Atorvastatin Calcium (Lipitor -) 20 mg PO HS [facility] Bacitracin (Bacitracin -) 1 applic TP BID [facility] Last Admin: 12/30/16 09:46 Dose: 1 applic Sodium Chloride (Normal Saline -) 1,000 mls @ 100 mls/hr IV ASDIR [facility] Last Admin: 12/29/16 20:56 Dose: 100 mls/hr Vancomycin HCl 750 mg/ (Dextrose) 250 mls @ 250 mls/hr IVPB BID [facility] PRN Reason: Protocol Last Admin: 12/30/16 09:37 Dose: 250 mls/hr Levetiracetam (Keppra Injection -) 1,500 mg IVPB BID [facility] Last Admin: 12/30/16 09:36 Dose: 1,500 mg Methylprednisolone Sodium Succinate (Solu-Medrol -) 40 mg IVPB Q8H-IV [facility] Last Admin: 12/30/16 09:37 Dose: 40 mg Piperacillin Sod/Tazobactam Sod (Zosyn 3.375gm Ivpb (Pre-Docked)) 3.375 gm IVPB Q8H-IV ALEKSANDR PRN Reason: Protocol Last Admin: 12/30/16 09:37 Dose: 3.375 gm Tamsulosin HCl (Flomax -) 0.4 mg PO DAILY@0830 [facility] Last Admin: 12/30/16 10:28 Dose: 0.4 mg ASSESSMENT AND PLAN: r/o Pneumonia vs Viral Syndrome Acute Respiratory Distress r/o Acute Bronchospasm Sepsis Lactic Acidosis Mental Retardation Seizure Disorder - continue empiric antibiotics - send flu swab - continue empiric medrol - inhaled bronchodilators - IVF - trend lactate - aspiration precautions - DVT/GI prophylaxis - can monitor on floor
[2016-12-30] MEDS ORDERED: SODIUM CHLORIDE 1,000 ML IV STA (13:28)
--- NOTE | 2016-12-30 16:52 | CONS ---
DATE OF CONSULTATION: DATE OF DICTATION: 12/30/2016 INFECTIOUS DISEASE CONSULTATION HISTORY OF PRESENT ILLNESS: This is one of multiple prior admissions for this profoundly mentally retarded 26-year-old male from the [facility]. The patient has severe developmental delay with quadriparesis and microcephaly. He has been admitted now after he was noted to be febrile, tachypneic, and tachycardic with hypoxemia saturating at 88%. The patient was noted to be profusely diaphoretic in the half-way and was treated with nebulizer treatments which did improve his O2 saturation to 97%. He came to the hospital, where he is in the ICU now, empirically being treated for possible sepsis. He can of course offer no history. PAST MEDICAL HISTORY: As noted above. CURRENT MEDICATIONS: Include clonidine, Keppra, Prilosec, Pulmicort, Flomax. ALLERGIES: No antibiotic allergies. SOCIAL HISTORY: Living in a residential nursing facility. FAMILY HISTORY: Unobtainable. REVIEW OF SYSTEMS: Respiratory: Tachypnea, no cough. Cardiac: No chest pain, history of arrhythmia, heart murmur. Gastrointestinal: No abdominal pain, vomiting, diarrhea. Genitourinary: Incontinent of urine. No gross hematuria. PHYSICAL EXAMINATION: General: He appeared in mild respiratory distress, breathing approximately 25 times per minute. Vital signs: Temperature 100 degrees, pulse 114, blood pressure 124/72. Lungs: Bilateral rhonchi, upper airway sounds. Heart: S1, S2. Tachycardic. No audible murmur. Abdomen: Soft. No organomegaly. No obvious tenderness. Extremities: Contracted without edema. LABORATORY: White count is 16.6 initially, now 5.8. Hemoglobin 11.8, platelets 278. BUN of 4 with a creatinine 0.5 and initial lactic acid of 5.2. Urinalysis negative for nitrates. Blood cultures currently pending. Sputum culture pending. Chest x-ray was reviewed, shows spinal hardware difficult to determine for presence of infiltrate. Severe scoliosis. ASSESSMENT: Sepsis syndrome, source unclear. Bacteremia possible based on preliminary blood culture report. Difficult to rule out pneumonia. Obvious respiratory distress. Profound mental retardation, developmental delay. Continue current therapy, vancomycin and Zosyn as ordered pending cultures. MEENAKSHI OCONNOR M.D. ELISSA/[id number]
[2016-12-30] MEDS: SODIUM CHLORIDE 1,000 ML IV SCH (17:30)
--- NOTE | 2016-12-30 17:54 | PN ---
Physical Exam: SUBJECTIVE: Patient seen and examined in ICU. He appears stable in no acute distress Events: - Additional fluid bolus overnight OBJECTIVE: Vital Signs Period Temp Pulse Resp BP Sys/Don Pulse Ox Last 24 Hr 98.6 F-100.6 F 82-142 18-31 91-137/50-95 96-98 PE Neuro: awake, alert, non verbal at baseline Pulm: L lobe rhonci + crackles CV: s1 s2 rrr no mrg Abd: s nt nd +peg tube access Ext: b/l UE contractures, + pedal edema, le PIVs Laboratory Results - last 24 hr 12/30/16 12/30/16 12/30/16 02:14 05:15 05:15 WBC 5.8 D RBC 4.21 Hgb 11.8 D Hct 35.1 L D MCV 83.6 MCHC 33.4 RDW 14.9 Plt Count 278 MPV 8.1 Neutrophils % 82.8 Lymphocytes % 14.9 D Monocytes % 2.1 L Eosinophils % 0.0 D Basophils % 0.2 Anticoagulation Therapy Puncture Site Right radial Patient Temperature 100.4 ABG pH 7.37 D ABG pCO2 at Pt Temp 33.1 L D ABG pO2 at Pt Temp 85.2 D ABG HCO3 18.6 L ABG O2 Sat (Measured) 95.2 ABG O2 Content 15.0 ABG Base Excess -5.1 L Richy Test Positive O2 Delivery Device Nasal Oxygen Flow Rate 2l Vent Mode Vent Rate Mechanical Rate PEEP 0.0 Pressure Support Vent Sodium 139 Potassium 4.2 Chloride 106 Carbon Dioxide 22 Anion Gap 11 BUN 4 L D Creatinine 0.5 L D Creat Clearance w eGFR > 60 Random Glucose 99 D Lactic Acid Calcium 8.6 Phosphorus 3.6 Magnesium 2.1 Total Bilirubin 0.3 AST 33 D ALT 32 Alkaline Phosphatase 101 D Total Protein 7.8 Albumin 3.3 L 12/30/16 12/30/16 12/30/16 06:15 11:26 15:00 Lactic Acid 2.078 H* 2.138 H* 0.965 12/29/16 14:00 Triglycerides 106 Cholesterol 168 Total LDL Cholesterol 102 H HDL Cholesterol 59 TSH 0.97 Active Medications Generic Name Dose Route Start Last Admin Trade Name Freq PRN Reason Stop Dose Admin Albuterol/Ipratropium 1 amp 12/29/16 18:00 12/30/16 17:27 Duoneb - NEB 1 amp QIDR MAGDA Administration Aspirin 81 mg 12/31/16 10:00 Asa - PO DAILY MAGDA Atorvastatin Calcium 20 mg 12/30/16 22:00 Lipitor - PO HS MAGDA Bacitracin 1 applic 12/30/16 02:30 12/30/16 09:46 Bacitracin - TP 1 applic BID MAGDA Administration Vancomycin HCl 750 mg/ 250 mls @ 250 mls/hr 12/30/16 10:00 12/30/16 09:37 Dextrose IVPB 250 mls/hr BID MAGDA Administration Protocol Sodium Chloride 1,000 mls @ 75 mls/hr 12/30/16 17:19 12/30/16 17:30 Normal Saline - IV 75 mls/hr ASDIR MAGDA Administration Levetiracetam 1,500 mg 12/29/16 22:30 12/30/16 09:36 Keppra Injection - IVPB 1,500 mg BID MAGDA Administration Methylprednisolone Sodium Succinate 40 mg 12/29/16 18:00 12/30/16 17:29 Solu-Medrol - IVPB 40 mg Q8H-IV MAGDA Administration Piperacillin Sod/Tazobactam Sod 3.375 gm 12/30/16 02:00 12/30/16 17:29 Zosyn 3.375gm Ivpb (Pre-Docked) IVPB 3.375 gm Q8H-IV MAGDA Administration Protocol Ranitidine HCl 150 mg 12/30/16 22:00 Zantac - PO BID MAGDA Tamsulosin HCl 0.4 mg 12/30/16 08:30 12/30/16 10:28 Flomax - PO 0.4 mg DAILY@0830 MAGDA Administration Microbiology 12/29/16 14:26 Blood Culture - Preliminary Blood - Peripheral Venous NO GROWTH OBTAINED AFTER 24 HOURS, INCUBATION TO CONTINUE FOR 4 DAYS. 12/30/16 02:40 Influenza Types A,B Antigen (DIEGO) - Final Nasopharyngeal Swab - Final 12/29/16 15:50 Urine Culture - Final Urine - Urine - Catheterized NO GROWTH OBTAINED 12/29/16 14:55 Blood Culture - Preliminary Blood - Peripheral Venous Pending Organism 12/30/16 02:40 Legionella Antigen - Final Urine For Antigen Detection Assessment: 26 year old male admitted with lactic acidemia, PNA, and hypoxemia. Plan: 1. Sepsis d/t possible HCAP vs viral syndrome - CXR with no acute change - Continue emperic vanco/zosyn in ED - x1 BC positive; gm + cocci - Continue solumedrol 40mg q8, taper tomorrow pending resp status - Duo nebs q4 magda - IVF @ 75cc/hr - Continue supplemental o2 - Sputum cx pending - Influenza/legionella negative 2. Lactic acidemia - Resolved - Gentle fluids 75cc/hr 3. Ischemic changes - ECHO with lv normal, size, fxn, trace mild mr - Started on ASA and lipitor (LDL 102, consider d/c-ing) 4. Seizure - Continue IV Keppra 1500 BID 5. Chronic urinary retention - Flomax daily - Admitted with qureshi 6. HTN - Hold Clonidine 7. Hypoxemia with acute resp distress - Stable - Continue supplemental O2 8. PPX DVT: allergic porcine no lovenox, scds GI: Ranitidine 150 BID Problem List - Problems (1) EKG abnormalities Code(s): R94.31 - ABNORMAL ELECTROCARDIOGRAM [ECG] [EKG] (2) Sepsis Code(s): A41.9 - SEPSIS, UNSPECIFIED ORGANISM Qualifiers: Sepsis type: sepsis due to unspecified organism Qualified Code(s): A41.9 - Sepsis, unspecified organism (3) Cerebral palsy Code(s): G80.9 - CEREBRAL PALSY, UNSPECIFIED Qualifiers: Cerebral palsy type: unspecified type Qualified Code(s): G80.9 - Cerebral palsy, unspecified (4) Hypoxemia Code(s): R09.02 - HYPOXEMIA (5) Lactic acidosis Code(s): E87.2 - ACIDOSIS (6) Pneumonia Code(s): J18.9 - PNEUMONIA, UNSPECIFIED ORGANISM Qualifiers: Pneumonia type: due to unspecified organism Laterality: left Lung location: lower lobe of lung Qualified Code(s): J18.1 - Lobar pneumonia, unspecified organism (7) Seizure Code(s): R56.9 - UNSPECIFIED CONVULSIONS (8) Tachycardia Code(s): R00.0 - TACHYCARDIA, UNSPECIFIED (9) Tachypnea Code(s): R06.82 - TACHYPNEA, NOT ELSEWHERE CLASSIFIED Visit type - Emergency Visit Emergency Visit: Yes ED Registration Date: 12/29/16 Care time: The patient presented to the Emergency Department on the above date and was hospitalized for further evaluation of their emergent condition. - New Patient This patient is new to me today: No - Critical Care Critical Care patient: No
[2016-12-30] MEDS: ATORVASTATIN CA 20 MG TABLET (FP) PO SCH (21:32)
[2016-12-30] MEDS: RANITIDINE HCL 150 MG TABLET (FP) PO SCH (21:32)
[2016-12-30] MEDS: VANCOMYCIN 750 MG in DEXTROSE 5%-WATER - 250 ML IVPB SCH (21:41)
[2016-12-30] MEDS ORDERED: ATORVASTATIN CA 20 MG TABLET (FP) PO SCH (22:00)
[2016-12-31] MEDS: ALBUTEROL SO4 2.5/IPRATROPIUM 0.5 INH SOL 3 ML VIAL.NEB. NEB SCH ×4 (00:09→17:50)
[2016-12-31] MEDS: PIPERACILLIN/TAZOB 3.375 GM/50 ML PRE-DOCKED IVPB SCH ×3 (02:33→18:24)
[2016-12-31] MEDS: methylPREDNISolone NA SUCC 40 MG/1 ML VIAL IVPB SCH ×3 (02:33→18:25)
[2016-12-31] MEDS ORDERED: PT OWN MED DRAWER 7, Y5N ONE (05:59)
[2016-12-31 08:12] LABS: BASOPHIL 0.3 % (0-2.0); MCH 27.8 pg (25.7-33.7); MCHC 32.7 g/dl (32.0-35.9); MEAN CELL VOLUME 85.1 fl (80-96); MEAN PLT VOLUME 7.8 fl (7.5-11.1); NEUTROPHILS 79.9 % (42.8-82.8); PLATELET COUNT 284 K/MM3 (134-434); RDW 15.3 % (11.9-15.9); WHITE BLOOD COUNT 10.5 K/mm3 (4.0-10.0)
[2016-12-31 08:43] LABS: CALCIUM 9.1 mg/dL (8.5-10.1)
[2016-12-31 08:44] LABS: COCKROFT - GAULT 110.74; CREATININE 0.7 mg/dL (0.7-1.3)
[2016-12-31] MEDS: TAMSULOSIN HCL 0.4 MG CAP.ER.24H (FP) PO SCH (09:20)
--- NOTE | 2016-12-31 09:34 | PN ---
Physical Exam: SUBJECTIVE: Patient seen and examined. He is non verbal at baseline. OBJECTIVE: In no acute distress Rhonchi auscultated in bilateral lung bowie Monitor respiratory status Vital Signs Period Temp Pulse Resp BP Sys/Dno Pulse Ox Last 24 Hr 98.6 F-99.3 F 74-101 9-22 94-149/56-85 97-98 GENERAL: Hx of MR, non verbal HEAD: Normal with no signs of trauma. LUNGS: Rhonchi on anterior lungs HEART: Regular rate and rhythm ABDOMEN: Peg tube present EXTREMITIES: no edema. NEUROLOGICAL: seizure precautions PSYCH: Hx of MR SKIN: Warm, dry, normal turgor, no rashes or lesions noted Laboratory Results - last 24 hr 12/30/16 12/30/16 12/31/16 11:26 15:00 07:00 WBC 10.5 H D RBC 4.68 Hgb 13.0 D Hct 39.8 MCV 85.1 MCHC 32.7 RDW 15.3 Plt Count 284 MPV 7.8 Neutrophils % 79.9 Lymphocytes % 17.1 Monocytes % 2.7 L Eosinophils % 0.0 Basophils % 0.3 Sodium Potassium Chloride Carbon Dioxide Anion Gap BUN Creatinine Random Glucose Lactic Acid 2.138 H* 0.965 Calcium 12/31/16 07:00 WBC RBC Hgb Hct MCV MCHC RDW Plt Count MPV Neutrophils % Lymphocytes % Monocytes % Eosinophils % Basophils % Sodium 142 Potassium 3.9 Chloride 106 Carbon Dioxide 20 L Anion Gap 16 BUN 5 L D Creatinine 0.7 D Random Glucose 130 H D Lactic Acid Calcium 9.1 Active Medications Generic Name Dose Route Start Last Admin Trade Name Freq PRN Reason Stop Dose Admin Albuterol/Ipratropium 1 amp 12/31/16 00:00 12/31/16 07:17 Duoneb - NEB 1 amp QIDR ALEKSANDR Administration Aspirin 81 mg 12/31/16 10:00 Asa - PO DAILY ALEKSANDR Atorvastatin Calcium 20 mg 12/30/16 22:00 12/30/16 21:32 Lipitor - PO 20 mg HS ALEKSANDR Administration Bacitracin 1 applic 12/30/16 22:00 12/30/16 21:31 Bacitracin - TP 1 applic BID ALEKSANDR Administration Sodium Chloride 1,000 mls @ 75 mls/hr 12/30/16 17:19 12/30/16 17:30 Normal Saline - IV 75 mls/hr ASDIR ALEKSANDR Administration Vancomycin HCl 750 mg/ 250 mls @ 250 mls/hr 12/30/16 22:00 12/30/16 21:41 Dextrose IVPB 250 mls/hr BID ALEKSANDR Administration Protocol Levetiracetam 1,500 mg 12/30/16 22:00 12/30/16 21:32 Keppra Injection - IVPB 1,500 mg BID ALEKSANDR Administration Methylprednisolone Sodium Succinate 40 mg 12/31/16 02:00 12/31/16 02:33 Solu-Medrol - IVPB 40 mg Q8H-IV ALEKSANDR Administration Piperacillin Sod/Tazobactam Sod 3.375 gm 12/31/16 02:00 12/31/16 02:33 Zosyn 3.375gm Ivpb (Pre-Docked) IVPB 3.375 gm Q8H-IV ALEKSANDR Administration Protocol Ranitidine HCl 150 mg 12/30/16 22:00 12/30/16 21:32 Zantac - PO 150 mg BID ALEKSANDR Administration Tamsulosin HCl 0.4 mg 12/31/16 08:30 Flomax - PO DAILY@0830 [facility] ASSESSMENT/PLAN: Patient is a 26 year old male with a past medical history of profound MR and seizures, who was admitted on 12/29/2016 with sepsis, PNA, and hypoxemia. ID: Sepsis likely secondarty to HCAP Assessment/Plan: On Vanco and Zosyn On Solumedrol 40mg q8 NS @ 75cc/hr Oxygen as needed Scheduled duonebs Aspiration precautions Lactic acidosis resolved Neuro: Seizures Assessment/Plan: On Keppra 1500 mg BID Seizure precautions Cardiology: Hypertension Assessment/Plan: Monitor BP in setting of sepsis F.E.N. Fluids: Normal saline @ 75cc/hr Electrolytes: bmp in a.m. Nutrition: Jevity tube feeds Prophylaxis: SCDs Protonix Disposition: Requires inpatient hospitalization. Full Code. Visit type - Emergency Visit Emergency Visit: Yes ED Registration Date: 12/29/16 Care time: The patient presented to the Emergency Department on the above date and was hospitalized for further evaluation of their emergent condition. - New Patient This patient is new to me today: Yes Date on this admission: 01/03/17 - Critical Care Critical Care patient: No - Discharge Referral Referred to [facility] Med P.C.: No
[2016-12-31] MEDS ORDERED: ASPIRIN 81 MG CHEWABLE TABLETS PO SCH (10:00)
[2016-12-31] MEDS: RANITIDINE HCL 150 MG TABLET (FP) PO SCH ×2 (10:41→21:43)
[2016-12-31] MEDS: SODIUM CHLORIDE 1,000 ML IV SCH ×2 (10:42→18:25)
[2016-12-31] MEDS: ASPIRIN 81 MG CHEWABLE TABLETS PO SCH (10:42)
[2016-12-31] MEDS: levETIRAcetam 500 MG/5 ML INJECTION VIAL IVPB SCH ×2 (10:43→21:42)
[2016-12-31] MEDS: VANCOMYCIN 750 MG in DEXTROSE 5%-WATER - 250 ML IVPB SCH (10:44)
[2016-12-31] MEDS: BACITRACIN 15 GM TUBE TOPICAL OINTMENT TP SCH ×2 (10:52→21:42)
--- NOTE | 2016-12-31 11:00 | PN ---
Progress Note (short form) - Note Progress Note: Awake and in NAD on NC O2. Non-verbal. No acute events overnight. Intake & Output 12/28/16 12/29/16 12/30/16 12/31/16 23:59 23:59 23:59 23:59 Intake Total 1200 4035 1250 Output Total 800 2600 Balance 400 1435 1250 Weight 104 lb 12.8 oz 107 lb 3.2 oz 107 lb Last Vital Signs Temp Pulse Resp BP Pulse Ox 98.8 F 79 18 100/69 97 12/31/16 06:00 12/31/16 06:00 12/31/16 06:00 12/31/16 06:00 12/30/16 21:00 Active Medications Albuterol/Ipratropium (Duoneb -) 1 amp NEB QIDR [facility] Last Admin: 12/31/16 07:17 Dose: 1 amp Aspirin (Asa -) 81 mg PO DAILY [facility] Last Admin: 12/31/16 10:42 Dose: 81 mg Atorvastatin Calcium (Lipitor -) 20 mg PO HS [facility] Last Admin: 12/30/16 21:32 Dose: 20 mg Bacitracin (Bacitracin -) 1 applic TP BID [facility] Last Admin: 12/31/16 10:52 Dose: 1 applic Sodium Chloride (Normal Saline -) 1,000 mls @ 75 mls/hr IV ASDIR [facility] Last Admin: 12/31/16 10:42 Dose: 75 mls/hr Vancomycin HCl 750 mg/ (Dextrose) 250 mls @ 250 mls/hr IVPB BID [facility] PRN Reason: Protocol Last Admin: 12/31/16 10:44 Dose: 250 mls/hr Levetiracetam (Keppra Injection -) 1,500 mg IVPB BID [facility] Last Admin: 12/31/16 10:43 Dose: 1,500 mg Methylprednisolone Sodium Succinate (Solu-Medrol -) 40 mg IVPB Q8H-IV ALEKSANDR Last Admin: 12/31/16 10:43 Dose: 40 mg Piperacillin Sod/Tazobactam Sod (Zosyn 3.375gm Ivpb (Pre-Docked)) 3.375 gm IVPB Q8H-IV ALEKSANDR PRN Reason: Protocol Last Admin: 12/31/16 10:45 Dose: 3.375 gm Ranitidine HCl (Zantac -) 150 mg PO BID [facility] Last Admin: 12/31/16 10:41 Dose: 150 mg Tamsulosin HCl (Flomax -) 0.4 mg PO DAILY@0830 [facility] Last Admin: 12/31/16 09:20 Dose: 0.4 mg Gen: NAD Heart: RRR Lung: scattered bilateral rhonchi Abd: soft, nontender Ext: no edema, contracted Laboratory Results - last 24 hr 12/30/16 12/30/16 12/31/16 11:26 15:00 07:00 WBC 10.5 H D RBC 4.68 Hgb 13.0 D Hct 39.8 MCV 85.1 MCHC 32.7 RDW 15.3 Plt Count 284 MPV 7.8 Neutrophils % 79.9 Lymphocytes % 17.1 Monocytes % 2.7 L Eosinophils % 0.0 Basophils % 0.3 Sodium Potassium Chloride Carbon Dioxide Anion Gap BUN Creatinine Random Glucose Lactic Acid 2.138 H* 0.965 Calcium 12/31/16 07:00 WBC RBC Hgb Hct MCV MCHC RDW Plt Count MPV Neutrophils % Lymphocytes % Monocytes % Eosinophils % Basophils % Sodium 142 Potassium 3.9 Chloride 106 Carbon Dioxide 20 L Anion Gap 16 BUN 5 L D Creatinine 0.7 D Random Glucose 130 H D Lactic Acid Calcium 9.1 ASSESSMENT AND PLAN: r/o Pneumonia vs Viral Syndrome Acute Respiratory Distress Acute Bronchospasm Sepsis Lactic Acidosis Mental Retardation Seizure Disorder - ABX per ID - IV Medrol -> IF stable can quick taper starting tomorrow - inhaled bronchodilators - IVF - aspiration precautions - DVT/GI prophylaxis Dr Trevizo
--- NOTE | 2016-12-31 15:38 | PN ---
Progress Note (short form) - Note Progress Note: ID Vancomycin and Zosyn for presumed recurrent aspirations Selected Entries 12/31/16 14:31 Temperature 99.4 F Pulse Rate 111 H Respiratory 22 Rate Blood Pressure 113/58 Gurgling upper airway sounds noted Microbiology 12/30/16 02:40 Urine For Antigen Detection Legionella Antigen - Final 12/30/16 02:40 Nasopharyngeal Swab Influenza Types A,B Antigen (DIEGO) - Final 12/30/16 02:40 Nasopharyngeal Swab - Final 12/30/16 02:40 Nares - Mrsa Screen - Right MRSA Screen - Final NO MRSA ISOLATED 12/30/16 02:40 Nares - Mrsa Screen - Left MRSA Screen - Final NO MRSA ISOLATED 12/29/16 22:20 Sputum - Endotracheal Suction W/O Vent Sputum Culture - Preliminary 12/29/16 14:55 Blood - Peripheral Venous Blood Culture - Preliminary Staphylococcus Coagulase Neg 12/29/16 14:26 Blood - Peripheral Venous Blood Culture - Preliminary NO GROWTH OBTAINED AFTER 48 HOURS, INCUBATION TO CONTINUE FOR 3 DAYS. Laboratory Tests 12/29/16 12/30/16 12/31/16 14:26 15:00 07:00 WBC 16.6 H D 10.5 H D Hgb 13.0 D Plt Count 284 BUN Lactic Acid 0.965 12/31/16 07:00 WBC Hgb Plt Count BUN 5 L D Lactic Acid Assessment Unsure if had PNA but WBC elevation and lactic acid levels up improving Plan Tomorrow would consider switch to oral Aumentin solution bid for few more days >Kishan Womack MD Problem List - Problems (1) Sepsis Code(s): A41.9 - SEPSIS, UNSPECIFIED ORGANISM Qualifiers: Qualified Code(s): A41.9 - Sepsis, unspecified organism (2) Cerebral palsy Code(s): G80.9 - CEREBRAL PALSY, UNSPECIFIED Qualifiers: Qualified Code(s): G80.9 - Cerebral palsy, unspecified
--- NOTE | 2016-12-31 17:20 | EKG ---
Test Reason : Blood Pressure : / mmHG Vent. Rate : 077 BPM Atrial Rate : 077 BPM P-R Int : 138 ms QRS Dur : 090 ms QT Int : 362 ms P-R-T Axes : 036 033 065 degrees QTc Int : 409 ms SINUS RHYTHM WITH MARKED SINUS ARRHYTHMIA MODERATE VOLTAGE CRITERIA FOR LVH, MAY BE NORMAL VARIANT INFERIOR-POSTERIOR INFARCT (CITED ON OR BEFORE 19-JAN-2015) ABNORMAL ECG WHEN COMPARED WITH ECG OF 29-DEC-2016 15:43, NO SIGNIFICANT CHANGE WAS FOUND Confirmed by GIO FISCHER MD ([id number]) on 12/31/2016 5:20:09 PM Referred By: JULIA AYERS Confirmed By:GIO FISCHER MD
--- NOTE | 2016-12-31 17:33 | EKG ---
Test Reason : Blood Pressure : / mmHG Vent. Rate : 088 BPM Atrial Rate : 088 BPM P-R Int : 148 ms QRS Dur : 090 ms QT Int : 344 ms P-R-T Axes : 047 053 054 degrees QTc Int : 416 ms POOR DATA QUALITY, INTERPRETATION MAY BE ADVERSELY AFFECTED NORMAL SINUS RHYTHM WITH SINUS ARRHYTHMIA MINIMAL VOLTAGE CRITERIA FOR LVH, MAY BE NORMAL VARIANT INFERIOR-POSTERIOR INFARCT (CITED ON OR BEFORE 19-JAN-2015) ABNORMAL ECG WHEN COMPARED WITH ECG OF 29-DEC-2016 14:15, NO SIGNIFICANT CHANGE WAS FOUND Confirmed by GIO FISCHER MD ([id number]) on 12/31/2016 5:33:25 PM Referred By: Confirmed By:GIO FISCHER MD
[2016-12-31] MEDS: ATORVASTATIN CA 20 MG TABLET (FP) PO SCH (21:43)
[2017-01-01] MEDS: ALBUTEROL SO4 2.5/IPRATROPIUM 0.5 INH SOL 3 ML VIAL.NEB. NEB SCH ×5 (00:01→23:09)
[2017-01-01] MEDS: methylPREDNISolone NA SUCC 40 MG/1 ML VIAL IVPB SCH ×3 (01:38→17:18)
[2017-01-01] MEDS: PIPERACILLIN/TAZOB 3.375 GM/50 ML PRE-DOCKED IVPB SCH ×3 (02:16→18:07)
[2017-01-01] MEDS: SODIUM CHLORIDE 1,000 ML IV SCH ×3 (06:45→23:34)
[2017-01-01 08:25] LABS: MCH 27.8 pg (25.7-33.7); MEAN PLT VOLUME 7.9 fl (7.5-11.1); NEUTROPHILS 82.5 % (42.8-82.8); PLATELET COUNT 328 K/MM3 (134-434); RDW 15.5 % (11.9-15.9); WHITE BLOOD COUNT 12.1 K/mm3 (4.0-10.0)
[2017-01-01] MEDS: ACETAMINOPHEN 650 MG/20.3 ML ORAL SOLUTION (CUPS) PO PRN (09:00)
[2017-01-01] MEDS: ASPIRIN 81 MG CHEWABLE TABLETS PO SCH (09:01)
[2017-01-01] MEDS: TAMSULOSIN HCL 0.4 MG CAP.ER.24H (FP) PO SCH (09:01)
[2017-01-01] MEDS: RANITIDINE HCL 150 MG TABLET (FP) PO SCH ×2 (09:01→23:30)
[2017-01-01] MEDS: BACITRACIN 15 GM TUBE TOPICAL OINTMENT TP SCH ×2 (09:02→23:27)
[2017-01-01] MEDS: levETIRAcetam 500 MG/5 ML INJECTION VIAL IVPB SCH ×2 (09:28→23:28)
[2017-01-01] MEDS ORDERED: CLINDAMYCIN IVPB 300 MG in DEXTROSE 5%-WATER - 48 ML IVPB ONE (10:00)
[2017-01-01] MEDS ORDERED: CLINDAMYCIN 300 MG PREMIX IVPB 50 ML IVPB ONE (10:00)
[2017-01-01 11:40] LABS: URINE APPEARANCE CLEAR; URINE BILIRUBIN NEGATIVE (NEGATIVE); URINE BLOOD NEGATIVE (NEGATIVE); URINE COLOR LTYELLOW; URINE GLUCOSE (UA) 1+ (NEGATIVE); URINE KETONE 2+ (NEGATIVE); URINE NITRITE NEGATIVE (NEGATIVE); URINE UROBILINOGEN NEGATIVE E.U./dl (0.2-1.0)
--- NOTE | 2017-01-01 11:41 | PN ---
Physical Exam: SUBJECTIVE: Patient seen and examined pulmonology consult. patient lying in bed. Patient again had fever of > 101 Patient on 2L nasal canula 95% OBJECTIVE: Vital Signs Period Temp Pulse Resp BP Sys/Don Pulse Ox Last 24 Hr 98.8 F-101.5 F 98-111 18-22 95-149/41-88 95 GENERAL: The patient is awake, HEAD: Normal with no signs of trauma. EYES: PERRL, NECK: Trachea midline, LUNGS: Breath sounds equal, diffuse ronchi b/l HEART: Regular rate and rhythm, S1, S2 without murmur, rub or gallop. ABDOMEN: Soft, nontender, nondistended, normoactive bowel sounds, no guarding, no rebound, peg in situ, getting tube feed . EXTREMITIES: 2+ pulses, warm, . SKIN: Warm, dry, Laboratory Results - last 24 hr 01/01/17 06:30 WBC 12.1 H RBC 4.79 Hgb 13.3 Hct 40.3 MCV 84.0 MCHC 33.0 RDW 15.5 Plt Count 328 MPV 7.9 Neutrophils % 82.5 Lymphocytes % 11.6 D Monocytes % 5.9 D Eosinophils % 0.0 Basophils % 0.0 Active Medications Generic Name Dose Route Start Last Admin Trade Name Freq PRN Reason Stop Dose Admin Acetaminophen 650 mg 01/01/17 08:49 01/01/17 09:00 Tylenol Oral Solution - PO 650 mg Q6H PRN Administration FEVER OR PAIN Albuterol/Ipratropium 1 amp 12/31/16 00:00 01/01/17 06:55 Duoneb - NEB 1 amp QIDR ALEKSANDR Administration Aspirin 81 mg 12/31/16 10:00 01/01/17 09:01 Asa - PO 81 mg DAILY ALEKSANDR Administration Atorvastatin Calcium 20 mg 12/30/16 22:00 12/31/16 21:43 Lipitor - PO 20 mg HS ALEKSANDR Administration Bacitracin 1 applic 12/30/16 22:00 01/01/17 09:02 Bacitracin - TP 1 applic BID ALEKSANDR Administration Sodium Chloride 1,000 mls @ 75 mls/hr 12/30/16 17:19 01/01/17 06:45 Normal Saline - IV 75 mls/hr ASDIR ALEKSANDR Administration Levetiracetam 1,500 mg 12/30/16 22:00 01/01/17 09:28 Keppra Injection - IVPB 1,500 mg BID ALEKSANDR Administration Methylprednisolone Sodium Succinate 40 mg 12/31/16 02:00 01/01/17 01:38 Solu-Medrol - IVPB 40 mg Q8H-IV ALEKSANDR Administration Piperacillin Sod/Tazobactam Sod 3.375 gm 12/31/16 02:00 01/01/17 09:00 Zosyn 3.375gm Ivpb (Pre-Docked) IVPB 3.375 gm Q8H-IV ALEKSANDR Administration Protocol Ranitidine HCl 150 mg 12/30/16 22:00 01/01/17 09:01 Zantac - PO 150 mg BID ALEKSANDR Administration Tamsulosin HCl 0.4 mg 12/31/16 08:30 01/01/17 09:01 Flomax - PO 0.4 mg DAILY@0830 ALEKSANDR Administration Microbiology 12/30/16 02:40 Nasopharyngeal Swab Respiratory Virus Panel - Preliminary 12/29/16 22:20 Sputum - Endotracheal Suction W/O Vent Gram Stain - Final 12/29/16 22:20 Sputum - Endotracheal Suction W/O Vent Sputum Culture - Preliminary 12/29/16 14:26 Blood - Peripheral Venous Blood Culture - Preliminary NO GROWTH OBTAINED AFTER 48 HOURS, INCUBATION TO CONTINUE FOR 3 DAYS. 12/30/16 02:40 Nares - Mrsa Screen - Right MRSA Screen - Final NO MRSA ISOLATED 12/30/16 02:40 Nares - Mrsa Screen - Left MRSA Screen - Final NO MRSA ISOLATED 12/29/16 14:55 Blood - Peripheral Venous Blood Culture - Preliminary Staphylococcus Coagulase Neg 12/30/16 02:40 Nasopharyngeal Swab Influenza Types A,B Antigen (DIEGO) - Final 12/30/16 02:40 Nasopharyngeal Swab - Final 12/29/16 15:50 Urine - Urine - Catheterized Urine Culture - Final NO GROWTH OBTAINED 12/30/16 02:40 Urine For Antigen Detection Legionella Antigen - Final ASSESSMENT/PLAN: acute respiratry distress improved, ronchi decreased on 2L nc spo2 95% continue with solumedrol continue inhaled bronchodilator aspiration precautions/ keep headend elevated. sepsis improved but patient again had fever of >101 unknown source intial blod culture was positive for staphylococcuc coagulase cxr difficult to interpret antibiotics as per ID follow culture blood, urine dvt prophylaxis Visit type - Emergency Visit Emergency Visit: Yes ED Registration Date: 12/29/16 Care time: The patient presented to the Emergency Department on the above date and was hospitalized for further evaluation of their emergent condition. - New Patient This patient is new to me today: No - Critical Care Critical Care patient: No
[2017-01-01 11:57] LABS: URINE LEUK ESTERASE 1+ (NEGATIVE); URINE PROTEIN 1+ (NEGATIVE)
[2017-01-01 11:59] LABS: URINE BACTERIA RARE /hpf (NONE SEEN); URINE MUCUS RARE; URINE RBC 17 /hpf (0-3); URINE WBC 4 /hpf (3-5)
--- NOTE | 2017-01-01 12:06 | PN ---
Teaching Attending Note Name of Resident: Supa Blackwell ATTENDING PHYSICIAN STATEMENT I saw and evaluated the patient. I reviewed the resident's note and discussed the case with the resident. I agree with the resident's findings and plan as documented. Pedro Pablo Feldman MD
[2017-01-01 12:14] LABS: ALBUMIN 4.1 g/dl (3.4-5.0); ANION GAP 19 (8-16); BILIRUBIN,TOTAL 0.4 mg/dL (0.2-1.0); CALCIUM 9.4 mg/dL (8.5-10.1); CO2 18 mmol/L (21-32); COCKROFT - GAULT 96.89; CREATININE 0.8 mg/dL (0.7-1.3); GLUCOSE,RANDOM 95 mg/dL (74-106); SGOT/AST 44 U/L (15-37); SGPT/ALT 45 U/L (12-78); TOT PROT 9.2 g/dl (6.4-8.2)
[2017-01-01 12:15] LABS: ALK PHOS 96 U/L (45-117)
--- NOTE | 2017-01-01 16:38 | PN ---
Physical Exam: SUBJECTIVE: Patient seen and examined. Having fever today. OBJECTIVE: Fever of 101F: blood cultures, urine cultures, UA, chest xray ordered Unclear source but has qureshi catheter and is receiving tube feeds On Zosyn ID following Vital Signs Period Temp Pulse Resp BP Sys/Don Pulse Ox Last 24 Hr 98.8 F-101.5 F 94-110 18-22 95-149/41-88 95-97 GENERAL: Hx of MR, non verbal HEAD: Normal with no signs of trauma. LUNGS: Rhonchi on anterior lungs HEART: Regular rate and rhythm ABDOMEN: Peg tube present EXTREMITIES: no edema. NEUROLOGICAL: seizure precautions PSYCH: Hx of MR SKIN: Warm, dry, normal turgor, no rashes or lesions noted Laboratory Results - last 24 hr 01/01/17 01/01/17 01/01/17 06:30 06:30 10:00 WBC 12.1 H RBC 4.79 Hgb 13.3 Hct 40.3 MCV 84.0 MCHC 33.0 RDW 15.5 Plt Count 328 MPV 7.9 Neutrophils % 82.5 Lymphocytes % 11.6 D Monocytes % 5.9 D Eosinophils % 0.0 Basophils % 0.0 Sodium 143 Potassium 4.4 Chloride 106 Carbon Dioxide 18 L Anion Gap 19 H BUN 14 D Creatinine 0.8 Creat Clearance w eGFR > 60 Random Glucose 95 D Calcium 9.4 Total Bilirubin 0.4 D AST 44 H D ALT 45 D Alkaline Phosphatase 96 Total Protein 9.2 H Albumin 4.1 D Urine Color Ltyellow Urine Appearance Clear Urine pH 5.0 D Urine Protein 1+ H Urine Glucose (UA) 1+ H Urine Ketones 2+ H Urine Blood Negative Urine Nitrite Negative Urine Bilirubin Negative Urine Urobilinogen Negative Ur Leukocyte Esterase 1+ H Urine RBC 17 Urine WBC 4 Ur Epithelial Cells Rare Urine Bacteria Rare Urine Mucus Rare Active Medications Generic Name Dose Route Start Last Admin Trade Name Freq PRN Reason Stop Dose Admin Acetaminophen 650 mg 01/01/17 08:49 01/01/17 09:00 Tylenol Oral Solution - PO 650 mg Q6H PRN Administration FEVER OR PAIN Albuterol/Ipratropium 1 amp 12/31/16 00:00 01/01/17 11:53 Duoneb - NEB 1 amp QIDR ALEKSANDR Administration Aspirin 81 mg 12/31/16 10:00 05/05/17 09:01 Asa - PO 81 mg DAILY ALEKSANDR Administration Atorvastatin Calcium 20 mg 12/30/16 22:00 12/31/16 21:43 Lipitor - PO 20 mg HS ALEKSANDR Administration Bacitracin 1 applic 12/30/16 22:00 01/01/17 09:02 Bacitracin - TP 1 applic BID ALEKSANDR Administration Sodium Chloride 1,000 mls @ 75 mls/hr 12/30/16 17:19 01/01/17 06:45 Normal Saline - IV 75 mls/hr ASDIR ALEKSANDR Administration Levetiracetam 1,500 mg 12/30/16 22:00 01/01/17 09:28 Keppra Injection - IVPB 1,500 mg BID ALEKSANDR Administration Methylprednisolone Sodium Succinate 40 mg 12/31/16 02:00 01/01/17 11:45 Solu-Medrol - IVPB 40 mg Q8H-IV ALEKSANDR Administration Piperacillin Sod/Tazobactam Sod 3.375 gm 12/31/16 02:00 01/01/17 09:00 Zosyn 3.375gm Ivpb (Pre-Docked) IVPB 3.375 gm Q8H-IV ALEKSANDR Administration Protocol Ranitidine HCl 150 mg 12/30/16 22:00 01/01/17 09:01 Zantac - PO 150 mg BID ALEKSANDR Administration Tamsulosin HCl 0.4 mg 12/31/16 08:30 01/01/17 09:01 Flomax - PO 0.4 mg DAILY@0830 ALEKSANDR Administration ASSESSMENT/PLAN: Patient is a 26 year old male with a past medical history of profound MR and seizures, who was admitted on 12/29/2016 with sepsis, PNA, and hypoxemia. ID: Sepsis likely secondary to HCAP vs. aspiration pneumonia - fevers today - acute Assessment/Plan: On Zosyn, On Solumedrol 40mg q8 WBC 12.5, fevers of 101.5, tachycardia 90s-100s Again having fevers, tmax 101F, blood cultures, urine cultures and chest xray ordered Chest Xray reviewed NS @ 75cc/hr Oxygen as needed Scheduled duonebs Aspiration precautions Neuro: Seizures - chronic Assessment/Plan: On Keppra 1500 mg BID, Tegretol 100mg BID and Clonazepam TID Seizure precautions Cardiology: Hypertension - chronic Assessment/Plan: Monitor BP in setting of sepsis F.E.N. Fluids: Normal saline @ 75cc/hr Electrolytes: bmp in a.m. Nutrition: Jevity tube feeds Prophylaxis: DVT: SCDs bilaterally GI: Zantac 150mg BID via GTube Disposition: Requires inpatient hospitalization. Full Code. Visit type - Emergency Visit Emergency Visit: Yes ED Registration Date: 12/29/16 Care time: The patient presented to the Emergency Department on the above date and was hospitalized for further evaluation of their emergent condition. - New Patient This patient is new to me today: No - Critical Care Critical Care patient: No - Discharge Referral Referred to [facility] Med [facility] No
[2017-01-01] MEDS ORDERED: POLYETHYLENE GLYCOL 3350 119 GM BTL PO ONE (17:18)
[2017-01-01] MEDS ORDERED: BACLOFEN 10 MG TABLET (FP) PO SCH ×2 (18:00→22:00)
[2017-01-01] MEDS ORDERED: BACLOFEN 10 MG TABLET (FP) GT SCH ×2 (18:00)
[2017-01-01] MEDS: ENOXAPARIN NA (PORCINE) 40 MG/0.4 ML DISP.SYRIN SQ SCH (18:06)
[2017-01-01] MEDS ORDERED: carBAMazepine 200 MG/10 ML UNIT-DOSE CUP PO SCH (22:00)
[2017-01-01] MEDS: cloNIDine HCL 0.1 MG TABLET PO SCH (23:27)
[2017-01-01] MEDS: ATORVASTATIN CA 20 MG TABLET (FP) PO SCH (23:29)
[2017-01-01] MEDS: BACLOFEN 10 MG TABLET (FP) PO SCH (23:29)
[2017-01-01] MEDS: carBAMazepine 200 MG/10 ML UNIT-DOSE CUP GT SCH (23:30)
[2017-01-01] MEDS: clonazePAM 2 MG TABLET PO SCH (23:33)
[2017-01-02] MEDS: methylPREDNISolone NA SUCC 40 MG/1 ML VIAL IVPB SCH ×3 (01:54→17:56)
[2017-01-02] MEDS: PIPERACILLIN/TAZOB 3.375 GM/50 ML PRE-DOCKED IVPB SCH ×2 (01:54→11:15)
[2017-01-02] MEDS ORDERED: BACLOFEN 10 MG TABLET (FP) GT SCH (05:00)
[2017-01-02] MEDS: clonazePAM 2 MG TABLET PO SCH ×3 (05:48→22:01)
[2017-01-02] MEDS: ACETAMINOPHEN 650 MG/20.3 ML ORAL SOLUTION (CUPS) PO PRN (05:49)
[2017-01-02] MEDS: ALBUTEROL SO4 2.5/IPRATROPIUM 0.5 INH SOL 3 ML VIAL.NEB. NEB SCH ×4 (06:48→23:13)
[2017-01-02 07:52] LABS: BASOPHIL 0.1 % (0-2.0); MCHC 33.5 g/dl (32.0-35.9); MEAN CELL VOLUME 83.4 fl (80-96); MEAN PLT VOLUME 7.9 fl (7.5-11.1); NEUTROPHILS 83.2 % (42.8-82.8); PLATELET COUNT 265 K/MM3 (134-434); RDW 15.2 % (11.9-15.9); WHITE BLOOD COUNT 8.3 K/mm3 (4.0-10.0)
[2017-01-02 08:19] LABS: ALBUMIN 3.4 g/dl (3.4-5.0); ALK PHOS 74 U/L (45-117); ANION GAP 14 (8-16); BILIRUBIN,TOTAL 0.3 mg/dL (0.2-1.0); CO2 23 mmol/L (21-32); COCKROFT - GAULT 129.19; CREATININE 0.6 mg/dL (0.7-1.3); GLUCOSE,RANDOM 108 mg/dL (74-106); SGOT/AST 37 U/L (15-37); SGPT/ALT 49 U/L (12-78); TOT PROT 7.6 g/dl (6.4-8.2)
[2017-01-02] MEDS: ENOXAPARIN NA (PORCINE) 40 MG/0.4 ML DISP.SYRIN SQ SCH (09:01)
[2017-01-02] MEDS: levETIRAcetam 500 MG/5 ML INJECTION VIAL IVPB SCH ×2 (09:01→22:01)
[2017-01-02] MEDS: BACLOFEN 10 MG TABLET (FP) PO SCH ×2 (09:02→22:00)
[2017-01-02] MEDS: RANITIDINE HCL 150 MG TABLET (FP) PO SCH ×2 (09:02→22:01)
[2017-01-02] MEDS: ASPIRIN 81 MG CHEWABLE TABLETS PO SCH (09:03)
[2017-01-02] MEDS: TAMSULOSIN HCL 0.4 MG CAP.ER.24H (FP) PO SCH (09:03)
[2017-01-02] MEDS ORDERED: PT OWN MED DRAWER 7, Y5N ONE ×2 (09:07→23:31)
[2017-01-02] MEDS: carBAMazepine 200 MG/10 ML UNIT-DOSE CUP GT SCH ×2 (09:08→23:32)
[2017-01-02] MEDS ORDERED: POTASSIUM CHLORIDE ORAL LIQUID 20 MEQ/15 ML GT ONE (09:15)
--- NOTE | 2017-01-02 11:04 | PN ---
Physical Exam: SUBJECTIVE: Patient seen and examined. Having persistent fevers. Non verbal @ baseline. OBJECTIVE: Patient with persistent fevers >101.5 Spoke with ID who recommend pt be observed off antibiotics Will also stop Peg tube feeds now and order CT scan of abdomen Please change chronic qureshi catheter Vital Signs Period Temp Pulse Resp BP Sys/Don Pulse Ox Last 24 Hr 99.1 F-101.6 F 76-115 20-22 97-146/53-77 96-97 GENERAL: Hx of MR, non verbal HEAD: Normal with no signs of trauma. LUNGS: Rhonchi on anterior lungs HEART: Regular rate and rhythm ABDOMEN: Peg tube present - hard masses felt on RUQ and LLQ - CT of abdomen ordered EXTREMITIES: no edema. NEUROLOGICAL: seizure precautions PSYCH: Hx of MR SKIN: Warm, dry, normal turgor, no rashes or lesions noted Laboratory Results - last 24 hr 01/01/17 01/01/17 01/02/17 06:30 10:00 07:10 WBC 8.3 D RBC 4.29 Hgb 12.0 Hct 35.8 MCV 83.4 MCHC 33.5 RDW 15.2 Plt Count 265 MPV 7.9 Neutrophils % 83.2 H Lymphocytes % 10.8 Monocytes % 5.9 Eosinophils % 0.0 Basophils % 0.1 D Sodium 143 Potassium 4.4 Chloride 106 Carbon Dioxide 18 L Anion Gap 19 H BUN 14 D Creatinine 0.8 Creat Clearance w eGFR > 60 Random Glucose 95 D Calcium 9.4 Total Bilirubin 0.4 D AST 44 H D ALT 45 D Alkaline Phosphatase 96 Total Protein 9.2 H Albumin 4.1 D Urine Color Ltyellow Urine Appearance Clear Urine pH 5.0 D Ur Specific Kayenta 1.020 Urine Protein 1+ H Urine Glucose (UA) 1+ H Urine Ketones 2+ H Urine Blood Negative Urine Nitrite Negative Urine Bilirubin Negative Urine Urobilinogen Negative Ur Leukocyte Esterase 1+ H Urine RBC 17 Urine WBC 4 Ur Epithelial Cells Rare Urine Bacteria Rare Urine Mucus Rare 01/02/17 07:10 WBC RBC Hgb Hct MCV MCHC RDW Plt Count MPV Neutrophils % Lymphocytes % Monocytes % Eosinophils % Basophils % Sodium 146 H Potassium 3.3 L D Chloride 109 H Carbon Dioxide 23 D Anion Gap 14 BUN 18 D Creatinine 0.6 L D Creat Clearance w eGFR > 60 Random Glucose 108 H Calcium 9.0 Total Bilirubin 0.3 D AST 37 ALT 49 Alkaline Phosphatase 74 D Total Protein 7.6 Albumin 3.4 Urine Color Urine Appearance Urine pH Ur Specific Kayenta Urine Protein Urine Glucose (UA) Urine Ketones Urine Blood Urine Nitrite Urine Bilirubin Urine Urobilinogen Ur Leukocyte Esterase Urine RBC Urine WBC Ur Epithelial Cells Urine Bacteria Urine Mucus Active Medications Generic Name Dose Route Start Last Admin Trade Name Freq PRN Reason Stop Dose Admin Acetaminophen 650 mg 01/01/17 08:49 01/02/17 05:49 Tylenol Oral Solution - PO 650 mg Q6H PRN Administration FEVER OR PAIN Albuterol/Ipratropium 1 amp 12/31/16 00:00 01/02/17 06:48 Duoneb - NEB 1 amp QIDR ALEKSANDR Administration Aspirin 81 mg 12/31/16 10:00 01/02/17 09:03 Asa - PO 81 mg DAILY ALEKSANDR Administration Atorvastatin Calcium 20 mg 12/30/16 22:00 01/01/17 23:29 Lipitor - PO 20 mg HS ALEKSANDR Administration Bacitracin 1 applic 12/30/16 22:00 01/01/17 23:27 Bacitracin - TP 1 applic BID ALEKSANDR Administration Baclofen 30 mg 01/01/17 22:00 01/02/17 09:02 Lioresal - PO 30 mg BID ALEKSANDR Administration Carbamazepine 100 mg 01/01/17 22:00 01/02/17 09:08 Tegretol Oral Suspension - GT 100 mg BID ALEKSANDR Administration Clonazepam 1 mg 01/01/17 22:00 01/02/17 05:48 Klonopin - PO 1 mg TID ALEKSANDR Administration Clonidine 0.1 mg 01/01/17 22:00 01/01/17 23:27 Catapres - PO 0.1 mg HS ALEKSANDR Administration Enoxaparin Sodium 40 mg 01/01/17 17:00 01/02/17 09:01 Lovenox - SQ 40 mg DAILY ALEKSANDR Administration Sodium Chloride 1,000 mls @ 75 mls/hr 12/30/16 17:19 01/01/17 23:34 Normal Saline - IV 75 mls/hr ASDIR ALEKSANDR Administration Levetiracetam 1,500 mg 12/30/16 22:00 01/02/17 09:01 Keppra Injection - IVPB 1,500 mg BID ALEKSANDR Administration Methylprednisolone Sodium Succinate 40 mg 12/31/16 02:00 01/02/17 01:54 Solu-Medrol - IVPB 40 mg Q8H-IV ALEKSANDR Administration Ranitidine HCl 150 mg 12/30/16 22:00 01/02/17 09:02 Zantac - PO 150 mg BID ALEKSANDR Administration Tamsulosin HCl 0.4 mg 12/31/16 08:30 01/02/17 09:03 Flomax - PO 0.4 mg DAILY@0830 ALEKSANDR Administration ASSESSMENT/PLAN: Patient is a 26 year old male with a past medical history of profound MR and seizures, who was admitted on 12/29/2016 with sepsis, PNA, and hypoxemia. ID: Sepsis likely secondary to HCAP vs. aspiration pneumonia - having persistent fevers Assessment/Plan: Persistent fevers Spoke with ID who recommended pt to be monitored off Zosyn despite fever spikes Will d/c Zosyn and monitor fever curve Source of fever unknown, will stop Jevity feeds and order CT scan of abdomen after masses palpated on abdomen Continues on Solumedrol 40mg q8 for hypoxemia WBC improved today, but still with tachycardia Tmax 101F Blood cultures, urine cultures pending Chest Xray reviewed NS @ 75cc/hr Scheduled duonebs Aspiration precautions Neuro: Seizures - chronic Assessment/Plan: On Keppra 1500 mg BID, Tegretol 100mg BID and Clonazepam TID Seizure precautions Cardiology: Hypertension - chronic Assessment/Plan: Monitor BP in setting of sepsis F.E.N. Fluids: Normal saline @ 75cc/hr Electrolytes: bmp in a.m. Nutrition: Hold Jevity, OK to given GTube meds Prophylaxis: DVT: Lovenox 40mg daily GI: Zantac 150mg BID via GTube Disposition: Requires inpatient hospitalization. Full Code. Visit type - Emergency Visit Emergency Visit: Yes ED Registration Date: 12/29/16 Care time: The patient presented to the Emergency Department on the above date and was hospitalized for further evaluation of their emergent condition. - New Patient This patient is new to me today: No - Critical Care Critical Care patient: No - Discharge Referral Referred to [facility] Med P.C.: No
[2017-01-02] MEDS ORDERED: POTASSIUM CHLORIDE ORAL LIQUID 20 MEQ/15 ML ONE (11:17)
[2017-01-02] MEDS: BACITRACIN 15 GM TUBE TOPICAL OINTMENT TP SCH ×2 (11:20→21:59)
[2017-01-02] MEDS: SODIUM CHLORIDE 1,000 ML IV SCH (17:41)
[2017-01-02] MEDS: ATORVASTATIN CA 20 MG TABLET (FP) PO SCH (22:00)
[2017-01-02] MEDS: cloNIDine HCL 0.1 MG TABLET PO SCH (22:01)
--- NOTE | 2017-01-03 01:40 | PN ---
Progress Note, Physician Chief Complaint: Pt with eyes open; stentorous breathing intermittently. History of Present Illness: The patient is a 26 year old male, with a significant past medical history of Cerebral palsy with spastic quadriparesis, severe developmental delay, Microcephaly, intractable seizures, cortical blindness, asthma, L hip Osteotomy , Scoliosis, Constipation, dysphagia BIBA from [facility] who presents to the emergency department s/p respiratory distress. As per EMS, the patient was found to be febrile, tachypneic, tachycardic and in respiratory distress saturating at 88%. Patient was sweating profusely in the [facility]. Patient received 2 Duonebs, additional nebulizer treatments and was suctioned. Subsequently, patient's O2 saturation zoila to 97% and was sent into the ED for further evaluation. Patient is a poor historian secondary to profound mental retardation. History provided by EMS, old [facility] records as patient is non verbal at baseline. Allergies: bee venom (honey bee), phenobarbital, pork derived (porcine) Past surgical history: See chart Social history: Noncontributory PCP: None - Current Medication List Current Medications: Active Medications Acetaminophen (Tylenol Oral Solution -) 650 mg PO Q6H PRN PRN Reason: FEVER OR PAIN Last Admin: 01/02/17 05:49 Dose: 650 mg Albuterol/Ipratropium (Duoneb -) 1 amp NEB QIDR [facility] Last Admin: 01/02/17 23:13 Dose: 1 amp Aspirin (Asa -) 81 mg PO DAILY [facility] Last Admin: 01/02/17 09:03 Dose: 81 mg Atorvastatin Calcium (Lipitor -) 20 mg PO [facility] Last Admin: 01/02/17 22:00 Dose: 20 mg Bacitracin (Bacitracin -) 1 applic TP BID [facility] Last Admin: 01/02/17 21:59 Dose: 1 applic Baclofen (Lioresal -) 30 mg PO BID [facility] Last Admin: 01/02/17 22:00 Dose: 30 mg Carbamazepine (Tegretol Oral Suspension -) 100 mg GT BID [facility] Last Admin: 01/02/17 23:32 Dose: 100 mg Clonazepam (Klonopin -) 1 mg PO TID [facility] Last Admin: 01/02/17 22:01 Dose: 1 mg Clonidine (Catapres -) 0.1 mg PO [facility] Last Admin: 01/02/17 22:01 Dose: 0.1 mg Enoxaparin Sodium (Lovenox -) 40 mg SQ DAILY [facility] Last Admin: 01/02/17 09:01 Dose: 40 mg Sodium Chloride (Normal Saline -) 1,000 mls @ 75 mls/hr IV ASDIR [facility] Last Admin: 01/02/17 17:41 Dose: 75 mls/hr Levetiracetam (Keppra Injection -) 1,500 mg IVPB BID [facility] Last Admin: 01/02/17 22:01 Dose: 1,500 mg Methylprednisolone Sodium Succinate (Solu-Medrol -) 40 mg IVPB Q8H-IV [facility] Last Admin: 01/02/17 17:56 Dose: 40 mg Ranitidine HCl (Zantac -) 150 mg PO BID [facility] Last Admin: 01/02/17 22:01 Dose: 150 mg Tamsulosin HCl (Flomax -) 0.4 mg PO DAILY@0830 [facility] Last Admin: 01/02/17 09:03 Dose: 0.4 mg - Objective Vital Signs: Vital Signs Temperature 99.3 F 01/02/17 18:00 Pulse Rate 102 H 01/02/17 18:00 Respiratory Rate 18 01/02/17 18:00 Blood Pressure 126/77 01/02/17 18:00 O2 Sat by Pulse Oximetry (%) 96 01/02/17 09:30 Constitutional: Yes: Thin Eyes: Yes: WNL HENT: Yes: Drooling, Other (microencephaly) Neck: Yes: Decreased ROM Cardiovascular: Yes: Regular Rate and Rhythm Respiratory: Yes: Diminished Gastrointestinal: Yes: Soft Genitourinary: No: Anuria Musculoskeletal: Yes: Muscle Weakness Extremities: Yes: Cool, Other (arms drawn inward) Edema: No Peripheral Pulses WNL: Yes Neurological: Yes: Weakness, Other Psychiatric: Yes: Other Labs: CBC, BMP 01/02/17 07:10 01/02/17 07:10 INR, PTT INR 1.25 (0.82-1.09) H 12/29/16 14:26 Problem List - Problems (1) Acute urinary retention Code(s): R33.8 - OTHER RETENTION OF URINE (2) Cerebral palsy Code(s): G80.9 - CEREBRAL PALSY, UNSPECIFIED Qualifiers: Qualified Code(s): G80.9 - Cerebral palsy, unspecified (3) Hypoxemia Code(s): R09.02 - HYPOXEMIA (4) Lactic acidosis Assessment/Plan: markedly elevated latic acid; leukocytosis; tachypnea, tachycardia. F/u blood, urine cultures; on antibiotics. Code(s): E87.2 - ACIDOSIS (5) Pneumonia Code(s): J18.9 - PNEUMONIA, UNSPECIFIED ORGANISM Qualifiers: Qualified Code(s): J18.1 - Lobar pneumonia, unspecified organism (6) Tachycardia Code(s): R00.0 - TACHYCARDIA, UNSPECIFIED (7) Tachypnea Code(s): R06.82 - TACHYPNEA, NOT ELSEWHERE CLASSIFIED (8) EKG abnormalities Assessment/Plan: EKG: sinus tachycardia; ?LAE; RAD; LVH; ST elevation lead II; R wave with mild ST depression V1 and V3. R/o infero-posterior CO, though pt is young, has LDL cholesterol 102, normal triglycerides and HDL 59 mg/dL. Septic. EKG with "posterior leads" (V7-9): no clear evidence of ST elevation. TNI serially (1st is 0.02). ECHO for LVEF, wall motion. TSH WNL. Consider IV heparin or Lovenox, statin. Treat septic state. Given pt's overall condition and mental status, I would recommend conservative therapy, even in the face of an CO. Code(s): R94.31 - ABNORMAL ELECTROCARDIOGRAM [ECG] [EKG] (9) Seizure Code(s): R56.9 - UNSPECIFIED CONVULSIONS
--- NOTE | 2017-01-03 01:49 | PN ---
Progress Note, Physician Chief Complaint: Pt with eyes open; breathing changes when spoken to. History of Present Illness: The patient is a 26 year old male, with a significant past medical history of Cerebral palsy with spastic quadriparesis, severe developmental delay, Microcephaly, intractable seizures, cortical blindness, asthma, L hip Osteotomy , Scoliosis, Constipation, dysphagia BIBA from [facility] who presents to the emergency department s/p respiratory distress. As per EMS, the patient was found to be febrile, tachypneic, tachycardic and in respiratory distress saturating at 88%. Patient was sweating profusely in the [facility]. Patient received 2 Duonebs, additional nebulizer treatments and was suctioned. Subsequently, patient's O2 saturation zoila to 97% and was sent into the ED for further evaluation. Patient is a poor historian secondary to profound mental retardation. History provided by EMS, old [facility] records as patient is non verbal at baseline. Allergies: bee venom (honey bee), phenobarbital, pork derived (porcine) Past surgical history: See chart Social history: Noncontributory PCP: None - Current Medication List Current Medications: Active Medications Acetaminophen (Tylenol Oral Solution -) 650 mg PO Q6H PRN PRN Reason: FEVER OR PAIN Last Admin: 01/02/17 05:49 Dose: 650 mg Albuterol/Ipratropium (Duoneb -) 1 amp NEB QIDR [facility] Last Admin: 01/02/17 23:13 Dose: 1 amp Aspirin (Asa -) 81 mg PO DAILY [facility] Last Admin: 01/02/17 09:03 Dose: 81 mg Atorvastatin Calcium (Lipitor -) 20 mg PO [facility] Last Admin: 01/02/17 22:00 Dose: 20 mg Bacitracin (Bacitracin -) 1 applic TP BID [facility] Last Admin: 01/02/17 21:59 Dose: 1 applic Baclofen (Lioresal -) 30 mg PO BID [facility] Last Admin: 01/02/17 22:00 Dose: 30 mg Carbamazepine (Tegretol Oral Suspension -) 100 mg GT BID [facility] Last Admin: 01/02/17 23:32 Dose: 100 mg Clonazepam (Klonopin -) 1 mg PO TID [facility] Last Admin: 01/02/17 22:01 Dose: 1 mg Clonidine (Catapres -) 0.1 mg PO [facility] Last Admin: 01/02/17 22:01 Dose: 0.1 mg Enoxaparin Sodium (Lovenox -) 40 mg SQ DAILY [facility] Last Admin: 01/02/17 09:01 Dose: 40 mg Sodium Chloride (Normal Saline -) 1,000 mls @ 75 mls/hr IV ASDIR [facility] Last Admin: 01/02/17 17:41 Dose: 75 mls/hr Levetiracetam (Keppra Injection -) 1,500 mg IVPB BID [facility] Last Admin: 01/02/17 22:01 Dose: 1,500 mg Methylprednisolone Sodium Succinate (Solu-Medrol -) 40 mg IVPB Q8H-IV [facility] Last Admin: 01/02/17 17:56 Dose: 40 mg Ranitidine HCl (Zantac -) 150 mg PO BID [facility] Last Admin: 01/02/17 22:01 Dose: 150 mg Tamsulosin HCl (Flomax -) 0.4 mg PO DAILY@0830 [facility] Last Admin: 01/02/17 09:03 Dose: 0.4 mg - Objective Vital Signs: Vital Signs Temperature 99.3 F 01/02/17 18:00 Pulse Rate 102 H 01/02/17 18:00 Respiratory Rate 18 01/02/17 18:00 Blood Pressure 126/77 01/02/17 18:00 O2 Sat by Pulse Oximetry (%) 96 01/02/17 09:30 Constitutional: Yes: Thin Eyes: Yes: WNL Cardiovascular: Yes: Regular Rate and Rhythm, S1, S2 Respiratory: Yes: Diminished Gastrointestinal: Yes: Soft Genitourinary: No: Anuria Musculoskeletal: Yes: Other (dextroscoliosis; s/p [place] brown surgery) Extremities: Yes: Other Labs: CBC, BMP 01/02/17 07:10 01/02/17 07:10 INR, PTT INR 1.25 (0.82-1.09) H 12/29/16 14:26 - ....Imaging Chest X-ray: Image Reviewed (interestitial changes) EKG: Image Reviewed (no significant changes (?inferoposterior ischemia/injury).) Problem List - Problems (1) Acute urinary retention Code(s): R33.8 - OTHER RETENTION OF URINE (2) Cerebral palsy Code(s): G80.9 - CEREBRAL PALSY, UNSPECIFIED Qualifiers: Qualified Code(s): G80.9 - Cerebral palsy, unspecified (3) Hypoxemia Code(s): R09.02 - HYPOXEMIA (4) Lactic acidosis Assessment/Plan: markedly elevated latic acid initially; now 0.9; leukocytosis; tachypnea, tachycardia. F/u blood, urine cultures; on antibiotics. Code(s): E87.2 - ACIDOSIS (5) Pneumonia Code(s): J18.9 - PNEUMONIA, UNSPECIFIED ORGANISM Qualifiers: Qualified Code(s): J18.1 - Lobar pneumonia, unspecified organism (6) Tachycardia Code(s): R00.0 - TACHYCARDIA, UNSPECIFIED (7) Tachypnea Code(s): R06.82 - TACHYPNEA, NOT ELSEWHERE CLASSIFIED (8) EKG abnormalities Assessment/Plan: Cannot r/o myocardial injury, though pt's multiple physical and mental abnormalities may contribute to these changes. F/u TNI serially. Code(s): R94.31 - ABNORMAL ELECTROCARDIOGRAM [ECG] [EKG] (9) Seizure Code(s): R56.9 - UNSPECIFIED CONVULSIONS
[2017-01-03] MEDS: methylPREDNISolone NA SUCC 40 MG/1 ML VIAL IVPB SCH ×3 (02:24→17:04)
[2017-01-03] MEDS: clonazePAM 2 MG TABLET PO SCH ×3 (06:05→22:51)
[2017-01-03] MEDS: ALBUTEROL SO4 2.5/IPRATROPIUM 0.5 INH SOL 3 ML VIAL.NEB. NEB SCH ×4 (07:10→23:52)
[2017-01-03 07:52] LABS: BASOPHIL 0.1 % (0-2.0); MCH 28.3 pg (25.7-33.7); MCHC 33.6 g/dl (32.0-35.9); MEAN CELL VOLUME 84.4 fl (80-96); NEUTROPHILS 82.3 % (42.8-82.8); PLATELET COUNT 244 K/MM3 (134-434); RDW 14.9 % (11.9-15.9); WHITE BLOOD COUNT 9.5 K/mm3 (4.0-10.0)
[2017-01-03 08:25] LABS: ALBUMIN 3.3 g/dl (3.4-5.0); ALK PHOS 69 U/L (45-117); ANION GAP 15 (8-16); BILIRUBIN,TOTAL 0.6 mg/dL (0.2-1.0); CALCIUM 8.8 mg/dL (8.5-10.1); CO2 23 mmol/L (21-32); COCKROFT - GAULT 258.39; CREATININE 0.3 mg/dL (0.7-1.3); GLUCOSE,RANDOM 64 mg/dL (74-106); SGOT/AST 21 U/L (15-37); SGPT/ALT 43 U/L (12-78); TOT PROT 7.1 g/dl (6.4-8.2)
[2017-01-03] MEDS: ASPIRIN 81 MG CHEWABLE TABLETS PO SCH (09:06)
[2017-01-03] MEDS: BACLOFEN 10 MG TABLET (FP) PO SCH ×2 (09:06→22:51)
[2017-01-03] MEDS: RANITIDINE HCL 150 MG TABLET (FP) PO SCH ×2 (09:06→22:50)
[2017-01-03] MEDS: TAMSULOSIN HCL 0.4 MG CAP.ER.24H (FP) PO SCH (09:06)
[2017-01-03] MEDS: BACITRACIN 15 GM TUBE TOPICAL OINTMENT TP SCH ×2 (09:07→23:06)
[2017-01-03] MEDS: ENOXAPARIN NA (PORCINE) 40 MG/0.4 ML DISP.SYRIN SQ SCH (09:07)
[2017-01-03] MEDS: carBAMazepine 200 MG/10 ML UNIT-DOSE CUP GT SCH ×2 (09:18→22:52)
[2017-01-03] MEDS: levETIRAcetam 500 MG/5 ML INJECTION VIAL IVPB SCH ×2 (10:03→22:50)
[2017-01-03] MEDS: SODIUM CHLORIDE 1,000 ML IV SCH (10:46)
--- NOTE | 2017-01-03 12:03 | PN ---
Progress Note (short form) - Note Progress Note: PULMONARY NO OVERALL CHANGE IN EXAM NOTES/MICRO/MEDS/NOTES REVIEWED Febrile illness Acute Respiratory Distress resolving Sepsis Lactic Acidosis Mental Retardation Seizure Disorder - ABX on hold - IV Medrol to taper - inhaled bronchodilators - IVF - aspiration precautions - DVT/GI prophylaxis Brian SOLO MD
--- NOTE | 2017-01-03 16:54 | PN ---
Physical Exam: SUBJECTIVE: Patient seen and examined. His father at the bedside. OBJECTIVE: Fever curve improving, TMAX 101.6 on 01/02/17 0900 Monitor vitals Jevity feeds on hold secondary to persistent fevers CT scan negative for abscess Will start Jevity feeds tomorrow, for now D5 NS @75cc/hr Can still give patient his meds via Gtube Vital Signs Period Temp Pulse Resp BP Sys/Don Pulse Ox Last 24 Hr 97.7 F-99.3 F 82-102 18-22 110-126/43-77 95-95 GENERAL: Hx of MR, non verbal HEAD: Normal with no signs of trauma. LUNGS: Rhonchi on anterior lungs HEART: Regular rate and rhythm ABDOMEN: Peg tube present - masses felt on RUQ and LLQ - CT of abdomen ordered EXTREMITIES: no edema. NEUROLOGICAL: seizure precautions PSYCH: Hx of SKIN: Warm, dry, normal turgor, no rashes or lesions noted Laboratory Results - last 24 hr 01/03/17 01/03/17 06:20 06:20 WBC 9.5 RBC 4.32 Hgb 12.2 Hct 36.4 MCV 84.4 MCHC 33.6 RDW 14.9 Plt Count 244 MPV 8.0 Neutrophils % 82.3 Lymphocytes % 12.9 Monocytes % 4.7 Eosinophils % 0.0 Basophils % 0.1 Sodium 144 Potassium 3.9 Chloride 106 Carbon Dioxide 23 Anion Gap 15 BUN 18 Creatinine 0.3 L D Creat Clearance w eGFR > 60 Random Glucose 64 L D Calcium 8.8 Total Bilirubin 0.6 D AST 21 D ALT 43 Alkaline Phosphatase 69 Total Protein 7.1 Albumin 3.3 L Active Medications Generic Name Dose Route Start Last Admin Trade Name Freq PRN Reason Stop Dose Admin Acetaminophen 650 mg 01/01/17 08:49 01/02/17 05:49 Tylenol Oral Solution - PO 650 mg Q6H PRN Administration FEVER OR PAIN Albuterol/Ipratropium 1 amp 12/31/16 00:00 01/03/17 11:18 Duoneb - NEB 1 amp QIDR ALEKSANDR Administration Aspirin 81 mg 12/31/16 10:00 01/03/17 09:06 Asa - PO 81 mg DAILY ALEKSANDR Administration Atorvastatin Calcium 20 mg 12/30/16 22:00 01/02/17 22:00 Lipitor - PO 20 mg HS ALEKSANDR Administration Bacitracin 1 applic 12/30/16 22:00 01/03/17 09:07 Bacitracin - TP 1 applic BID ALEKSANDR Administration Baclofen 30 mg 01/01/17 22:00 01/03/17 09:06 Lioresal - PO 30 mg BID ALEKSANDR Administration Carbamazepine 100 mg 01/01/17 22:00 01/03/17 09:18 Tegretol Oral Suspension - GT 100 mg BID ALEKSANDR Administration Clonazepam 1 mg 01/01/17 22:00 01/03/17 13:04 Klonopin - PO 1 mg TID ALEKSANDR Administration Clonidine 0.1 mg 01/01/17 22:00 01/02/17 22:01 Catapres - PO 0.1 mg HS ALEKSANDR Administration Enoxaparin Sodium 40 mg 01/01/17 17:00 01/03/17 09:07 Lovenox - SQ 40 mg DAILY ALEKSANDR Administration Sodium Chloride 1,000 mls @ 75 mls/hr 12/30/16 17:19 01/03/17 10:46 Normal Saline - IV 75 mls/hr ASDIR ALEKSANDR Administration Levetiracetam 1,500 mg 12/30/16 22:00 01/03/17 10:03 Keppra Injection - IVPB 1,500 mg BID ALEKSANDR Administration Methylprednisolone Sodium Succinate 40 mg 12/31/16 02:00 01/03/17 09:05 Solu-Medrol - IVPB 40 mg Q8H-IV ALEKSANDR Administration Ranitidine HCl 150 mg 12/30/16 22:00 01/03/17 09:06 Zantac - PO 150 mg BID ALEKSANDR Administration Tamsulosin HCl 0.4 mg 12/31/16 08:30 01/03/17 09:06 Flomax - PO 0.4 mg DAILY@0830 ALEKSANDR Administration ASSESSMENT/PLAN: Patient is a 26 year old male with a past medical history of profound MR and seizures, who was admitted on 12/29/2016 with sepsis, PNA, and hypoxemia. Imaging: Abdominal CT 01/02/2017: No gross evidence of an intra-abdominal fluid collection that might represent an abscess. No evidence of bowel obstruction. Limited study. ID: Sepsis likely secondary to HCAP vs. aspiration pneumonia - having persistent fevers Assessment/Plan: Spoke with ID yesterday who recommended pt to be monitored off Zosyn despite fever spikes Zosyn d/c yesterday, tmax 101.6 on 01/02/2017, continue to monitor fever curve off antibiotics Source of fever unknown, will stop Jevity feeds and monitor CT scan of abdomen with no gross evidence of an intra-abdominal fluid collection that might represent an abscess Continues on Solumedrol 40mg q8 for hypoxemia WBC improving, but still with some tachycardia Blood cultures, urine cultures negative to date Chest Xray reviewed D5 NS @ 75cc/hr Scheduled duonebs Aspiration precautions Neuro: Seizures - chronic Assessment/Plan: On Keppra 1500 mg BID, Tegretol 100mg BID and Clonazepam TID Seizure precautions Cardiology: Hypertension - chronic Assessment/Plan: Monitor BP in setting of sepsis F.E.N. Fluids: D5 NS @ 75cc/hr Electrolytes: bmp in a.m. Nutrition: Hold Jevity, OK to given GTube meds Prophylaxis: DVT: Lovenox 40mg daily GI: Zantac 150mg BID via GTube Disposition: Requires inpatient hospitalization. Full Code. Visit type - Emergency Visit Emergency Visit: Yes ED Registration Date: 12/29/16 Care time: The patient presented to the Emergency Department on the above date and was hospitalized for further evaluation of their emergent condition. - New Patient This patient is new to me today: No - Critical Care Critical Care patient: No - Discharge Referral Referred to [facility] Med [facility] No
[2017-01-03] MEDS: DEXTROSE 5%-NORMAL SALINE 1,000 ML IV SCH (17:44)
[2017-01-03] MEDS ORDERED: PT OWN MED DRAWER 7, Y5N ONE ×2 (22:01→22:08)
[2017-01-03] MEDS: ATORVASTATIN CA 20 MG TABLET (FP) PO SCH (22:51)
[2017-01-03] MEDS: cloNIDine HCL 0.1 MG TABLET PO SCH (22:51)
[2017-01-04] MEDS: methylPREDNISolone NA SUCC 40 MG/1 ML VIAL IVPB SCH ×2 (02:31→09:14)
[2017-01-04] MEDS: clonazePAM 2 MG TABLET PO SCH ×2 (05:44→13:48)
[2017-01-04] MEDS: ALBUTEROL SO4 2.5/IPRATROPIUM 0.5 INH SOL 3 ML VIAL.NEB. NEB SCH ×3 (06:43→16:50)
[2017-01-04] MEDS: DEXTROSE 5%-NORMAL SALINE 1,000 ML IV SCH (07:44)
[2017-01-04 08:06] LABS: ANION GAP 13 (8-16); CALCIUM 8.3 mg/dL (8.5-10.1); CO2 24 mmol/L (21-32); GLUCOSE,RANDOM 102 mg/dL (74-106); SGOT/AST 15 U/L (15-37); SGPT/ALT 36 U/L (12-78)
[2017-01-04 08:07] LABS: ALK PHOS 63 U/L (45-117); BILIRUBIN,TOTAL 0.4 mg/dL (0.2-1.0); COCKROFT - GAULT 193.79; CREATININE 0.4 mg/dL (0.7-1.3); TOT PROT 6.6 g/dl (6.4-8.2)
[2017-01-04 08:14] LABS: BASOPHIL 0.1 % (0-2.0); MCH 28.3 pg (25.7-33.7); MCHC 33.7 g/dl (32.0-35.9); MEAN PLT VOLUME 7.8 fl (7.5-11.1); NEUTROPHILS 81.8 % (42.8-82.8); PLATELET COUNT 244 K/MM3 (134-434); RDW 14.8 % (11.9-15.9)
[2017-01-04] MEDS: TAMSULOSIN HCL 0.4 MG CAP.ER.24H (FP) PO SCH (08:40)
[2017-01-04] MEDS ORDERED: PT OWN MED DRAWER 7, Y5N ONE (09:07)
[2017-01-04] MEDS: RANITIDINE HCL 150 MG TABLET (FP) PO SCH (09:12)
[2017-01-04] MEDS: BACITRACIN 15 GM TUBE TOPICAL OINTMENT TP SCH (09:12)
[2017-01-04] MEDS: ASPIRIN 81 MG CHEWABLE TABLETS PO SCH (09:12)
[2017-01-04] MEDS: BACLOFEN 10 MG TABLET (FP) PO SCH (09:13)
[2017-01-04] MEDS: ENOXAPARIN NA (PORCINE) 40 MG/0.4 ML DISP.SYRIN SQ SCH (09:13)
[2017-01-04] MEDS: carBAMazepine 200 MG/10 ML UNIT-DOSE CUP GT SCH (09:14)
[2017-01-04] MEDS: levETIRAcetam 500 MG/5 ML INJECTION VIAL IVPB SCH (10:02)
[2017-01-04] MEDS ORDERED: KCL 10 MEQ IVPB 100 ML IVPB SCH (10:45)
--- NOTE | 2017-01-04 10:50 | PN ---
Physical Exam: SUBJECTIVE: Patient seen and examined lying comfortably in bed afebrile for> 24 hr on Iv fluid and tube feed. wbc 9.0, hr 70 OBJECTIVE: Vital Signs Period Temp Pulse Resp BP Sys/Don Pulse Ox Last 24 Hr 98.8 F-99.2 F 70-100 18-22 100-126/43-70 GENERAL: The patient is awake, HEAD: Normal with no signs of trauma. EYES: PERRL, LUNGS: Breath sounds equal, diffuse ronchi b/l HEART: Regular rate and rhythm, S1, S2 without murmur, rub or gallop. ABDOMEN: Soft, nontender, nondistended, normoactive bowel sounds, no guarding, no rebound, peg in situ, getting tube feed . EXTREMITIES: 2+ pulses, warm, . SKIN: Warm, dry, Laboratory Results - last 24 hr 01/04/17 01/04/17 06:45 07:40 WBC 9.0 RBC 4.13 Hgb 11.7 Hct 34.7 L MCV 84.0 MCHC 33.7 RDW 14.8 Plt Count 244 MPV 7.8 Neutrophils % 81.8 Lymphocytes % 13.5 Monocytes % 4.6 Eosinophils % 0.0 Basophils % 0.1 Sodium 144 Potassium 3.4 L Chloride 107 Carbon Dioxide 24 Anion Gap 13 BUN 10 D Creatinine 0.4 L D Creat Clearance w eGFR > 60 Random Glucose 102 D Calcium 8.3 L Total Bilirubin 0.4 D AST 15 D ALT 36 Alkaline Phosphatase 63 Total Protein 6.6 Albumin 3.0 L Active Medications Generic Name Dose Route Start Last Admin Trade Name Freq PRN Reason Stop Dose Admin Acetaminophen 650 mg 01/01/17 08:49 01/02/17 05:49 Tylenol Oral Solution - PO 650 mg Q6H PRN Administration FEVER OR PAIN Albuterol/Ipratropium 1 amp 12/31/16 00:00 01/04/17 06:43 Duoneb - NEB 1 amp QIDR ALEKSANDR Administration Aspirin 81 mg 12/31/16 10:00 01/04/17 09:12 Asa - PO 81 mg DAILY ALEKSANDR Administration Atorvastatin Calcium 20 mg 12/30/16 22:00 01/03/17 22:51 Lipitor - PO 20 mg HS ALEKSANDR Administration Bacitracin 1 applic 12/30/16 22:00 01/04/17 09:12 Bacitracin - TP 1 applic BID ALEKSANDR Administration Baclofen 30 mg 01/01/17 22:00 01/04/17 09:13 Lioresal - PO 30 mg BID ALEKSANDR Administration Carbamazepine 100 mg 01/01/17 22:00 01/04/17 09:14 Tegretol Oral Suspension - GT 100 mg BID ALEKSANDR Administration Clonazepam 1 mg 01/01/17 22:00 01/04/17 05:44 Klonopin - PO 1 mg TID ALEKSANDR Administration Clonidine 0.1 mg 01/01/17 22:00 01/03/17 22:51 Catapres - PO 0.1 mg HS ALEKSANDR Administration Enoxaparin Sodium 40 mg 01/01/17 17:00 01/04/17 09:13 Lovenox - SQ 40 mg DAILY ALEKSANDR Administration Dextrose/Sodium Chloride 1,000 mls @ 75 mls/hr 01/03/17 17:00 01/04/17 07:44 D5-Ns - IV 75 mls/hr ASDIR ALEKSANDR Administration Potassium Chloride 100 mls @ 100 mls/hr 01/04/17 10:45 Potassium Chloride 10 Meq Premix Ivpb - IVPB 01/04/17 11:44 Q60M ALEKSANDR Levetiracetam 1,500 mg 12/30/16 22:00 01/04/17 10:02 Keppra Injection - IVPB 1,500 mg BID ALEKSANDR Administration Methylprednisolone Sodium Succinate 40 mg 12/31/16 02:00 01/04/17 09:14 Solu-Medrol - IVPB 40 mg Q8H-IV ALEKSANDR Administration Ranitidine HCl 150 mg 12/30/16 22:00 01/04/17 09:12 Zantac - PO 150 mg BID ALEKSANDR Administration Tamsulosin HCl 0.4 mg 12/31/16 08:30 01/04/17 08:40 Flomax - PO 0.4 mg DAILY@0830 ALEKSANDR Administration Microbiology 01/01/17 09:45 Blood - Peripheral Venous Blood Culture - Preliminary NO GROWTH OBTAINED AFTER 72 HOURS, INCUBATION TO CONTINUE FOR 2 DAYS. 01/01/17 09:40 Blood - Peripheral Venous Blood Culture - Preliminary NO GROWTH OBTAINED AFTER 72 HOURS, INCUBATION TO CONTINUE FOR 2 DAYS. 12/29/16 14:26 Blood - Peripheral Venous Blood Culture - Final NO GROWTH AFTER 5 DAYS INCUBATION 12/29/16 14:55 Blood - Peripheral Venous Blood Culture - Final Staph Hominis Sub Sp Hominis 05/05/17 10:00 Urine - Urine Werner Urine Culture - Final NO GROWTH OBTAINED 12/29/16 22:20 Sputum - Endotracheal Suction W/O Vent Gram Stain - Final 12/29/16 22:20 Sputum - Endotracheal Suction W/O Vent Sputum Culture - Final 12/30/16 02:40 Nasopharyngeal Swab Respiratory Virus Panel - Preliminary 12/30/16 02:40 Nares - Mrsa Screen - Right MRSA Screen - Final NO MRSA ISOLATED 12/30/16 02:40 Nares - Mrsa Screen - Left MRSA Screen - Final NO MRSA ISOLATED 12/30/16 02:40 Nasopharyngeal Swab Influenza Types A,B Antigen (DIEGO) - Final 12/30/16 02:40 Nasopharyngeal Swab - Final 12/29/16 15:50 Urine - Urine - Catheterized Urine Culture - Final NO GROWTH OBTAINED 12/30/16 02:40 Urine For Antigen Detection Legionella Antigen - Final ASSESSMENT/PLAN: acute respiratry distress improved, on 2L nc spo2 > 95 taper steroid continue inhaled bronchodilator aspiration precautions/ keep headend elevated. sepsis improved afebrile for> 24 hr, hr 70, bp 102/70 antibiotics on hold recent blood and urine culture no growth. on IV fluid and tube feed. dvt prophylaxis : lovestephanie gi pro: zantac
--- NOTE | 2017-01-04 12:38 | PN ---
Progress Note (short form) - Note Progress Note: PULMONARY Pt nonverbal. No fevers recorded. Last Vital Signs Temp Pulse Resp BP Pulse Ox 98.9 F 70 18 102/70 95 01/04/17 06:00 01/04/17 06:00 01/04/17 06:00 01/04/17 06:00 01/03/17 09:36 Gen: NAD, breathing nonlabored Heart: RRR Lung: bilateral scattered rhonchi Abd: soft, nontender Ext: contracted, no edema CBC, BMP 01/04/17 07:40 01/04/17 06:45 Active Medications Acetaminophen (Tylenol Oral Solution -) 650 mg PO Q6H PRN PRN Reason: FEVER OR PAIN Last Admin: 01/02/17 05:49 Dose: 650 mg Albuterol/Ipratropium (Duoneb -) 1 amp NEB QIDR [facility] Last Admin: 01/04/17 06:43 Dose: 1 amp Aspirin (Asa -) 81 mg PO DAILY [facility] Last Admin: 01/04/17 09:12 Dose: 81 mg Atorvastatin Calcium (Lipitor -) 20 mg PO HS [facility] Last Admin: 01/03/17 22:51 Dose: 20 mg Bacitracin (Bacitracin -) 1 applic TP BID [facility] Last Admin: 01/04/17 09:12 Dose: 1 applic Baclofen (Lioresal -) 30 mg PO BID [facility] Last Admin: 01/04/17 09:13 Dose: 30 mg Carbamazepine (Tegretol Oral Suspension -) 100 mg GT BID [facility] Last Admin: 01/04/17 09:14 Dose: 100 mg Clonazepam (Klonopin -) 1 mg PO TID [facility] Last Admin: 01/04/17 05:44 Dose: 1 mg Clonidine (Catapres -) 0.1 mg PO HS [facility] Last Admin: 01/03/17 22:51 Dose: 0.1 mg Enoxaparin Sodium (Lovenox -) 40 mg SQ DAILY [facility] Last Admin: 01/04/17 09:13 Dose: 40 mg Dextrose/Sodium Chloride (D5-Ns -) 1,000 mls @ 75 mls/hr IV ASDIR [facility] Last Admin: 01/04/17 07:44 Dose: 75 mls/hr Levetiracetam (Keppra Injection -) 1,500 mg IVPB BID [facility] Last Admin: 01/04/17 10:02 Dose: 1,500 mg Methylprednisolone Sodium Succinate (Solu-Medrol -) 40 mg IVPB BID [facility] Ranitidine HCl (Zantac -) 150 mg PO BID [facility] Last Admin: 01/04/17 09:12 Dose: 150 mg Tamsulosin HCl (Flomax -) 0.4 mg PO DAILY@0830 [facility] Last Admin: 01/04/17 08:40 Dose: 0.4 mg A/P r/o Pneumonia vs Viral Syndrome Acute Respiratory Distress resolved r/o Acute Bronchospasm Sepsis resolving Lactic Acidosis resolved Mental Retardation Seizure Disorder - s/p empiric antibiotics - can change steroids to PO and rapidly taper off - inhaled bronchodilators - enteral feeds - aspiration precautions - DVT/GI prophylaxis
--- NOTE | 2017-01-04 14:14 | DS ---
Physical Exam: SUBJECTIVE: Patient seen and examined at the bedside. Appears comfortable at rest. OBJECTIVE: No fevers for 48 hours WBC within normal limits Abdominal CT negative Will restart Jevity feeds and monitor If tolerates feeds, can be d/cd back to [facility] today Left message for Dr. Mayorga to advise him of same and to provide sign out of the patient. Awaiting call back. Vital Signs Period Temp Pulse Resp BP Sys/Don Pulse Ox Last 24 Hr 98.1 F-99.2 F 63-100 18-22 100-126/43-70 95-97 PHYSICAL EXAM GENERAL: Hx of MR, non verbal HEAD: Normal with no signs of trauma. LUNGS: Rhonchi on anterior lungs HEART: Regular rate and rhythm ABDOMEN: Peg tube present - masses felt on RUQ and LLQ - CT of abdomen ordered EXTREMITIES: no edema. NEUROLOGICAL: seizure precautions PSYCH: Hx of MR SKIN: Warm, dry, normal turgor, no rashes or lesions noted LABS Laboratory Results - last 24 hr 01/04/17 01/04/17 06:45 07:40 WBC 9.0 RBC 4.13 Hgb 11.7 Hct 34.7 L MCV 84.0 MCHC 33.7 RDW 14.8 Plt Count 244 MPV 7.8 Neutrophils % 81.8 Lymphocytes % 13.5 Monocytes % 4.6 Eosinophils % 0.0 Basophils % 0.1 Sodium 144 Potassium 3.4 L Chloride 107 Carbon Dioxide 24 Anion Gap 13 BUN 10 D Creatinine 0.4 L D Creat Clearance w eGFR > 60 Random Glucose 102 D Calcium 8.3 L Total Bilirubin 0.4 D AST 15 D ALT 36 Alkaline Phosphatase 63 Total Protein 6.6 Albumin 3.0 L HOSPITAL COURSE: Date of Admission:12/29/16 Date of Discharge: 01/04/17 Patient is a 26 year old male with a past medical history of profound MR and seizures, who was admitted on 12/29/2016 with sepsis, PNA, and hypoxemia. Imaging: Abdominal CT 01/02/2017: No gross evidence of an intra-abdominal fluid collection that might represent an abscess. No evidence of bowel obstruction. Limited study. ID: Sepsis likely secondary to HCAP vs. aspiration pneumonia - resolved No fevers x 48 hours, WBC within normal limits CT scan of abdomen with no gross evidence of an intra-abdominal fluid collection that might represent an abscess Jevity feed restarted Prednisone quick taper ordered Blood cultures, urine cultures negative to date Aspiration precautions Neuro: Seizures - chronic Assessment/Plan: On Keppra 1500 mg BID, Tegretol 100mg BID and Clonazepam TID Seizure precautions Cardiology: Hypertension - chronic Assessment/Plan: Monitor BP Disposition: Return to [place] [facility]. Called Dr Mayorga, awaiting call back. Full Code. Minutes to complete discharge: 45 Discharge Summary Reason For Visit: SEPSIS Current Active Problems EKG abnormalities (Acute) Sepsis (Acute) Condition: Stable - Instructions Diet, Activity, Other Instructions: Please taper Prednisone as follows Date dose 01/05/2017 Prednisone 30mg 01/06/2017 Prednisone 20mg 01/07/2017 Prednisone 10mg 01/08/2017 Prednisone 5mg 01/09/2017 stop Prednisone Please return to the ER with persistent or worsening symptoms. Antibiotics completed on Wednesday, January 01. Recommendations: - TF Jevity 1.5 to 35 ml/hr (1260 kcal/53 gm Prot) - water flushes as per MD or 30 ml/hr (720 ml/d) - aspiration precautions- keep head elevated, re-position head as needed - MVI Disposition: ASSISTED FACILITY - Home Medications Comprehensive Discharge Medication List: Ambulatory Orders Acetaminophen [Tylenol] 480 mg GT PRN PRN 01/19/15 Albuterol 2.5/Ipratropium 0.5 [Duoneb -] 1 neb IH QID PRN 01/19/15 Baclofen 20 mg PO BID 01/19/15 Cholecalciferol (Vitamin D3) [Vitamin D3] 2,000 unit GT DAILY 01/19/15 Clonidine HCl [Clonidine HCl ER] 0.2 mg PO HS 01/19/15 Diazepam *Pediatric Rectal* [Diastat *Pediatric Rectal Gel* -] 20 mg RC PRN Levetiracetam [Keppra Oral Solution -] 1,500 mg GT BID 01/19/15 Omeprazole [Prilosec] 20 mg GT DAILY 01/19/15 Budesonide [Pulmicort 0.5 mg Nebulizer -] 1 neb NEB BID 02/15/16 Tamsulosin HCl [Flomax -] 0.4 mg PO DAILY@0830 #30 cap.er.24h 02/25/16 This patient is new to me today: Yes Date on this admission: 01/04/17 Emergency Visit: Yes ED Registration Date: 12/29/16 Care time: The patient presented to the Emergency Department on the above date and was hospitalized for further evaluation of their emergent condition. Critical Care patient: No - Discharge Referral Referred to [facility] No
[2017-01-04 18:34] VITALS: PULSE 59
[2017-01-04 19:03] VITALS: BP 122/60; TEMP 98
[2017-01-04] MEDS ORDERED: methylPREDNISolone NA SUCC 40 MG/1 ML VIAL IVPB SCH (22:00)
[2017-01-05] MEDS ORDERED: predniSONE 20 MG TABLET (UD) PO SCH (10:00)
== END 2017-01-04 19:38 | disposition home or self-care (01) | DRG 720 ==
LOC: JER 13:28 → JERBED 16:13 → JICU 21:15 → J5S 12-30 20:49
PROVIDERS: ADMIT Internal Medicine; ATTEND Nurse Practitioner Family
PROC: 3E0F7GC Introduction of Other Therapeutic Substance into Respiratory Tract, Via Natural or Artificial Opening (ICD-10-PCS; principal; 2016-12-29)
PROC: 3E0H76Z Introduction of Nutritional Substance into Lower GI, Via Natural or Artificial Opening (ICD-10-PCS; 2017-01-04)
DX: A41.9 Sepsis, unspecified organism (principal); J18.9 Pneumonia, unspecified organism; G80.0 Spastic quadriplegic cerebral palsy; Q02 Microcephaly; G40.909 Epilepsy, unspecified, not intractable, without status epilepticus; H47.619 Cortical blindness, unspecified side of brain; J45.909 Unspecified asthma, uncomplicated; R13.10 Dysphagia, unspecified; K59.00 Constipation, unspecified; R00.0 Tachycardia, unspecified; R09.02 Hypoxemia; M24.50 Contracture, unspecified joint; F72 Severe intellectual disabilities; M41.9 Scoliosis, unspecified; E87.2 Acidosis; R33.8 Other retention of urine; Z93.1 Gastrostomy status; I10 Essential (primary) hypertension; R94.31 Abnormal electrocardiogram [ECG] [EKG]; J80 Acute respiratory distress syndrome
CPT/HCPCS: 36415; 36600; 71010-TC; 74150-TC; 80048; 80053; 80061; 81003; 81015; 82550; 82553; 82803; 83605; 83721; 83735; 84100; 84443; 84484; 85025; 85610; 85730; 86850; 86900; 86901; 87040; 87070; 87081; 87086; 87186; 87205; 87254; 87804; 87899; 93005; 93010; 93306-TC; 94640; 94667; 97161-GP; 99283-25; J0475

== ENCOUNTER 2017-04-23 23:35 | Emergency (ER) | payer OTHER ==
[2017-04-24 00:17] VITALS: BMI 17.2
[2017-04-24] MEDS ORDERED: ALBUTEROL SO4 2.5/IPRATROPIUM 0.5 INH SOL 3 ML VIAL.NEB. NEB ONE (00:59)
--- NOTE | 2017-04-24 01:10 | PDOC ---
History of Present Illness - General Chief Complaint: Shortness of Breath Stated Complaint: SOB History Source: EMS, [facility] Exam Limitations: Physical Impairment - History of Present Illness Initial Comments: 04/24/17 01:05 26 yo M with h/o MR seizure disorder and CP and spastic quadriplegia, bedbound here from nursing facility ( [facility]) for hypoxia and sob. no f/c no n/v. was admitted recently in december for sepsis questionable aspiration pna vs. hcap. Past History - Past Medical History Allergies/Adverse Reactions: Allergies Allergy/AdvReac Type Severity Reaction Status Date / Time phenobarbital Allergy Verified 05/21/15 21:46 pork derived (porcine) Allergy Verified 05/21/15 21:46 venom-honey bee Allergy Verified 05/21/15 21:46 [bee venom (honey bee)] Home Medications: Ambulatory Orders Acetaminophen [Tylenol] 480 mg GT PRN PRN 01/19/15 Albuterol 2.5/Ipratropium 0.5 [Duoneb -] 1 neb IH QID PRN 01/19/15 Baclofen 20 mg PO BID 01/19/15 Cholecalciferol (Vitamin D3) [Vitamin D3] 2,000 unit GT DAILY 01/19/15 Clonidine HCl [Clonidine HCl ER] 0.2 mg PO HS 01/19/15 Diazepam *Pediatric Rectal* [Diastat *Pediatric Rectal Gel* -] 20 mg RC PRN Levetiracetam [Keppra Oral Solution -] 1,500 mg GT BID 01/19/15 Omeprazole [Prilosec] 20 mg GT DAILY 01/19/15 Budesonide [Pulmicort 0.5 mg Nebulizer -] 1 neb NEB BID 02/15/16 Tamsulosin HCl [Flomax -] 0.4 mg PO DAILY@0830 #30 cap.er.24h 02/25/16 Albuterol 2.5/Ipratropium 0.5 [Duoneb -] 1 amp NEB QIDR amp 01/04/17 Aspirin [ASA -] 81 mg PO DAILY tab.chew 01/04/17 Clonidine HCl [Catapres -] 0.1 mg PO HS tablet 01/04/17 Enoxaparin [Lovenox -] 40 mg SQ DAILY #30 syringe 01/04/17 Levetiracetam Injection [Keppra Injection -] 1,500 mg IVPB BID ml 01/04/17 Prednisone [Deltasone -] See Taper PO DAILY #14 tablet 01/04/17 Asthma: Yes COPD: Yes (asthma) Dementia: Yes (mental retardation) GI Disorders: Yes (dysphagia, s/p peg insertion) Psychiatric Problems: (hyponatremia (due to meds)) Seizures: Yes - Surgical History Orthopedic Surgery: (Left Hip Osteotomy) - Immunization History Immunization Up to Date: Yes - Psycho/Social/Smoking Cessation Hx Suicidal Ideation: No Smoking History: Never smoked Have you smoked in the past 12 months: No Number of Cigarettes Smoked Daily: 0 Cigars Per Day: 0 Information on smoking cessation initiated: No Hx Alcohol Use: No Drug/Substance Use Hx: No Substance Use Type: None Hx Substance Use Treatment: No Review of Systems - Review of Systems Able to Perform ROS?: No Is the patient limited [place] proficient: Yes *Physical Exam - Vital Signs Last Vital Signs Temp Pulse Resp BP Pulse Ox 91 H 19 80/54 99 04/24/17 00:14 04/24/17 00:14 04/24/17 00:14 04/24/17 00:14 - Physical Exam General Appearance: Yes: Nourished. No: Apparent Distress HEENT: negative: Normal Voice (nonverbal) Neck: positive: Trachea midline Respiratory/Chest: positive: Wheezing. negative: Chest Tender Cardiovascular: positive: Regular Rhythm, Regular Rate, S1, S2. negative: Edema , JVD, Murmur Gastrointestinal/Abdominal: positive: Normal Bowel Sounds Musculoskeletal: positive: Normal Inspection. negative: CVA Tenderness Integumentary: positive: Normal Color, Dry, Warm Neurologic: positive: Other (does not follow commands, nonverbal. ) ED Treatment Course - LABORATORY CBC & Chemistry Diagram: 04/24/17 01:34 04/24/17 01:34 - RADIOLOGY Radiology Studies Ordered: Category Date Time Status CHEST - PA [RAD] Stat Radiology 04/24/17 00:13 Taken Medical Decision Making - Medical Decision Making 04/24/17 01:13 26 yo M with h/o quadriplegia, mr seizure disorder, recent pneumonia, here wtih reports of hypoxia. pt with good sats here in ed. wheezin angela exam plan nebs. cxr labs r/o infection. reassess. bronchodilators. 04/24/17 02:31 pt saturation were 95 percent to 99 %. mild wheezing on exam. improved with nebs. pt on home oxygen at facility. labs unremarkable. wbc normal. cxr normal. will dc back to facility. *DC/Admit/Observation/Transfer Diagnosis at time of Disposition: Asthma attack - Discharge Dispostion Condition at time of disposition: Improved Admit: No - Patient Instructions Additional Instructions: use albuterol nebulized every 4 hours. oxygen saturation here in the ED was 95 % . return for any problems or concerns.
[2017-04-24 01:40] VITALS: TEMP 97.1
[2017-04-24 01:43] LABS: BASOPHIL 0.7 % (0-2.0); EOSINOPHIL 0.9 % (0-4.5); MCH 28.1 pg (25.7-33.7); MCHC 33.3 g/dl (32.0-35.9); MEAN CELL VOLUME 84.4 fl (80-96); MEAN PLT VOLUME 7.8 fl (7.5-11.1); NEUTROPHILS 54.5 % (42.8-82.8); PLATELET COUNT 371 K/MM3 (134-434); RDW 14.4 % (11.9-15.9); WHITE BLOOD COUNT 9.4 K/mm3 (4.0-10.0)
[2017-04-24 03:04] LABS: ALBUMIN 3.5 g/dl (3.4-5.0); ALK PHOS 107 U/L (45-117); ANION GAP 11 (8-16); BILIRUBIN,TOTAL 0.4 mg/dL (0.2-1.0); CALCIUM 8.7 mg/dL (8.5-10.1); CO2 26 mmol/L (21-32); CREATININE 0.3 mg/dL (0.7-1.3); GLUCOSE,RANDOM 96 mg/dL (74-106); SGPT/ALT 30 U/L (12-78); TOT PROT 7.7 g/dl (6.4-8.2)
[2017-04-24 03:22] LABS: SGOT/AST 27 U/L (15-37)
--- NOTE | 2017-04-24 05:22 | PDOC ---
*Physical Exam - Vital Signs Last Vital Signs Temp Pulse Resp BP Pulse Ox 97.1 F L 91 H 19 80/54 99 04/24/17 01:39 04/24/17 00:14 04/24/17 00:14 04/24/17 00:14 04/24/17 00:14 ED Treatment Course - LABORATORY CBC & Chemistry Diagram: 04/24/17 01:34 04/24/17 02:25 - ADDITIONAL ORDERS Additional order review: Laboratory Results 04/24/17 04/24/17 04/24/17 02:25 01:34 01:34 Sodium 136 Cancelled Potassium 3.5 Cancelled Chloride 99 Cancelled Carbon Dioxide 26 Cancelled Anion Gap 11 Cancelled BUN 8 Cancelled Creatinine 0.3 L D Cancelled Creat Clearance w eGFR > 60 Cancelled Random Glucose 96 Cancelled Lactic Acid 1.1 Calcium 8.7 Cancelled Total Bilirubin 0.4 Cancelled AST 27 D Cancelled ALT 30 Cancelled Alkaline Phosphatase 107 D Cancelled Creatine Kinase Cancelled Troponin I Cancelled Total Protein 7.7 Cancelled Albumin 3.5 Cancelled 04/24/17 01:34 RBC 4.94 MCV 84.4 MCHC 33.3 RDW 14.4 MPV 7.8 Neutrophils % 54.5 D Lymphocytes % 35.6 D Monocytes % 8.3 D Eosinophils % 0.9 D Basophils % 0.7 D - Medications Given in the ED: ED Medications Discontinued Medications Generic Name Dose Route Start Last Admin Trade Name Freq PRN Reason Stop Dose Admin Albuterol/Ipratropium 1 amp 04/24/17 00:59 04/24/17 01:39 Duoneb - NEB 04/24/17 01:00 1 amp ONCE ONE Administration Medical Decision Making - Medical Decision Making 04/24/17 05:10 Sign-out received from outgoing Emergency Physician Dr. Pompa Pt interviewed and examined Ancillary studies reviewed Case discussed in detail with oncoming Emergency Physician including history, physical exam and ancillary studies. Vital Signs Temp Pulse Resp BP Pulse Ox 97.1 F L 91 H 19 80/54 99 04/24/17 01:39 04/24/17 00:14 04/24/17 00:14 04/24/17 00:14 04/24/17 00:14 Was signed out this patient with multiple medical problems coming in with hypoxia from the nursing facility. Patient has been maintaining oxygenation saturation of 94-96% here in the emergency department. Patient was given nebulizers with improvement of symptoms. Was signed out awaiting chest x-ray and blood work. CBC, BMP 04/24/17 01:34 04/24/17 02:25 CMP Sodium 136 mmol/L (136-145) 04/24/17 02:25 Potassium 3.5 mmol/L (3.5-5.1) 04/24/17 02:25 Chloride 99 mmol/L (98-107) 04/24/17 02:25 Carbon Dioxide 26 mmol/L (21-32) 04/24/17 02:25 Anion Gap 11 (8-16) 04/24/17 02:25 BUN 8 mg/dL (7-18) 04/24/17 02:25 Creatinine 0.3 mg/dL (0.7-1.3) L D 04/24/17 02:25 Creat Clearance w eGFR > 60 (>60) 04/24/17 02:25 Random Glucose 96 mg/dL (74-106) 04/24/17 02:25 Lactic Acid 1.1 mmol/L (0.4-2.0) 04/24/17 01:34 Calcium 8.7 mg/dL (8.5-10.1) 04/24/17 02:25 Total Bilirubin 0.4 mg/dL (0.2-1.0) 04/24/17 02:25 AST 27 U/L (15-37) D 04/24/17 02:25 ALT 30 U/L (12-78) 04/24/17 02:25 Alkaline Phosphatase 107 U/L (45-117) D 04/24/17 02:25 Creatine Kinase Cancelled 04/24/17 01:34 Troponin I Cancelled 04/24/17 01:34 Total Protein 7.7 g/dl (6.4-8.2) 04/24/17 02:25 Albumin 3.5 g/dl (3.4-5.0) 04/24/17 02:25 Chest xray reviewed by me, pending official radiology read. No infiltrates. The patient is breathing more comfortably. Saturates 94 to 96 % I had spoken with the nurse at [facility] who states patient typically saturates at 94 to 96%. The patient can be discharged back to the [facility]. The facility accepts patient back. *DC/Admit/Observation/Transfer Diagnosis at time of Disposition: Asthma attack - Discharge Dispostion Disposition: [facility]IOR [facility]ARE FACILITY Condition at time of disposition: Improved Admit: No - Patient Instructions Printed Discharge Instructions: DI for Asthma -- Adult Additional Instructions: use albuterol nebulized every 4 hours for the next 24 hours. If the patient is persistently hypoxic, please return to the ER.
[2017-04-24 05:47] VITALS: BP 95/69; PULSE 96
== END 2017-04-24 05:51 ==
LOC: JER 23:35
PROC: 3E0F7GC Introduction of Other Therapeutic Substance into Respiratory Tract, Via Natural or Artificial Opening (ICD-10-PCS; principal; 2017-04-23)
DX: J45.901 Unspecified asthma with (acute) exacerbation (principal); G80.0 Spastic quadriplegic cerebral palsy; F79 Unspecified intellectual disabilities; G40.909 Epilepsy, unspecified, not intractable, without status epilepticus
CPT/HCPCS: 71010-TC; 80053; 83605; 85025; 87040; 94640; 99282-25

== ENCOUNTER 2017-07-07 18:21 | Inpatient (IN) | payer OTHER ==
--- NOTE | 2017-07-07 18:50 | PDOC ---
History of Present Illness - General History Source: Senior Living Records, Old Records Exam Limitations: Clinical Condition - History of Present Illness Initial Comments: 07/07/17 19:28 The patient is a 26 year old male brought via EMS from [facility] and presenting with his home care music therapist, with a significant past medical history of mental developmental delay, dysphagia, s/p peg insertion, seizures, hyponatremia (due to meds) and asthma, who presents to the emergency department with fever. The home care music therapist notes that the facility believes the patient may have pneumonia. He reports that the patient has been receiving antibiotics and Tylenol with little to no relief of the symptoms. On presentation the patient is nonverbal and uses a wheelchair on baseline. Allergies: Porcine, phenobarbital Past surgical history: Left Hip Osteotomy Social history: No alcohol, tobacco or drug use reported <Diego Bird - Last Filed: 07/07/17 19:28> <Rosemarie Jett - Last Filed: 07/08/17 19:49> - General Chief Complaint: SIRS, Suspected/Possible Stated Complaint: FEVER Time Seen by Provider: 07/07/17 18:24 Past History <Diego Bird - Last Filed: 07/07/17 19:28> - Past Medical History Asthma: Yes COPD: Yes (asthma) Dementia: Yes (mental retardation) GI Disorders: Yes (dysphagia, s/p peg insertion) Psychiatric Problems: (hyponatremia (due to meds)) Seizures: Yes - Surgical History Orthopedic Surgery: (Left Hip Osteotomy) - Immunization History Immunization Up to Date: Yes - Suicide/Smoking/Psychosocial Hx Smoking History: Never smoked Have you smoked in the past 12 months: No Number of Cigarettes Smoked Daily: 0 Cigars Per Day: 0 Information on smoking cessation initiated: No Hx Alcohol Use: No Drug/Substance Use Hx: No Substance Use Type: None Hx Substance Use Treatment: No <Rosemarie Jett - Last Filed: 07/08/17 19:49> - Past Medical History Allergies/Adverse Reactions: Allergies Allergy/AdvReac Type Severity Reaction Status Date / Time phenobarbital Allergy Verified 07/07/17 18:43 pork derived (porcine) Allergy Verified 07/07/17 18:43 venom-honey bee Allergy Verified 07/07/17 18:43 [bee venom (honey bee)] Home Medications: Ambulatory Orders Acetaminophen [Tylenol] 480 mg GT PRN PRN 01/19/15 Albuterol 2.5/Ipratropium 0.5 [Duoneb -] 1 neb IH QID PRN 01/19/15 Baclofen 20 mg PO BID 01/19/15 Cholecalciferol (Vitamin D3) [Vitamin D3] 2,000 unit GT DAILY 01/19/15 Clonidine HCl [Clonidine HCl ER] 0.2 mg PO HS 01/19/15 Diazepam *Pediatric Rectal* [Diastat *Pediatric Rectal Gel* -] 20 mg RC PRN Levetiracetam [Keppra Oral Solution -] 1,500 mg GT BID 01/19/15 Omeprazole [Prilosec] 20 mg GT DAILY 01/19/15 Budesonide [Pulmicort 0.5 mg Nebulizer -] 1 neb NEB BID 02/15/16 Tamsulosin HCl [Flomax -] 0.4 mg PO DAILY@0830 #30 cap.er.24h 02/25/16 Albuterol 2.5/Ipratropium 0.5 [Duoneb -] 1 amp NEB QIDR amp 01/04/17 Aspirin [ASA -] 81 mg PO DAILY tab.chew 01/04/17 Clonidine HCl [Catapres -] 0.1 mg PO HS tablet 01/04/17 Enoxaparin [Lovenox -] 40 mg SQ DAILY #30 syringe 01/04/17 Levetiracetam Injection [Keppra Injection -] 1,500 mg IVPB BID ml 01/04/17 Prednisone [Deltasone -] See Taper PO DAILY #14 tablet 01/04/17 Review of Systems - Review of Systems Able to Perform ROS?: No Comments:: 07/07/17 19:28 Unable to obtain ROS due to patient medical condition. <Diego Bird - Last Filed: 07/07/17 19:28> *Physical Exam - Vital Signs Last Vital Signs Temp Pulse Resp BP Pulse Ox 100.5 F H 119 H 22 97/64 97 07/07/17 18:43 07/07/17 18:43 07/07/17 18:43 07/07/17 18:43 07/07/17 18:43 <Diego Bird - Last Filed: 07/07/17 19:28> - Vital Signs Last Vital Signs Temp Pulse Resp BP Pulse Ox 100.5 F H 119 H 22 97/64 97 07/07/17 18:43 07/07/17 18:43 07/07/17 18:43 07/07/17 18:43 07/07/17 18:43 - Physical Exam Comments: GENERAL: Awake, alert, in no acute distress HEAD: No signs of trauma EYES: PERRLA, EOMI, sclera anicteric, conjunctiva clear ENT: Auricles normal inspection, hearing grossly normal, nares patent, oropharynx clear without exudates. Moist mucosa NECK: Normal ROM, supple, no lymphadenopathy, JVD, or masses LUNGS: Good air entry B/L, +diffuse rhonchi. HEART: Tachycardic with regular rhythm, normal S1 and S2, no murmurs, rubs or gallops ABDOMEN: Soft, +hyperactive bowel sounds. No guarding, no rebound. No masses. +PEG tube to LUQ, with erythema to the skin inferior to the insertion site. EXTREMITIES: Normal range of motion, no edema. No clubbing or cyanosis. No cords, erythema, or tenderness NEUROLOGICAL: Limited by severe MR, unable to follow commands. SKIN: Warm, Dry, normal turgor, no rashes or lesions noted. <Rosemarie Jett - Last Filed: 07/08/17 19:49> ED Treatment Course - LABORATORY CBC & Chemistry Diagram: 07/08/17 08:00 07/08/17 08:00 <Rosemarie Jett - Last Filed: 07/08/17 19:49> Medical Decision Making - Medical Decision Making Pt with fever, productive cough with copious sputum despite outpatient augmentin for 3 days so far. While the CXR is negative, patient's clinical presentation is concerning for pna (copious sputum production in ED requiring frequent suctioning), and he is high risk for aspiration. Also is a higher risk patient due to inability to communicate and chronically bedbound state. Treated with abx, admitted. <Rosemarie Jett - Last Filed: 07/08/17 19:49> *DC/Admit/Observation/Transfer - Attestations Scribe Attestion: 07/07/17 19:29 Documentation prepared by Diego Bird, acting as medical data entry clerk for Rosemarie Jett MD <Diego Bird - Last Filed: 07/07/17 19:28> - Discharge Dispostion Admit: Yes <Rosemarie Jett - Last Filed: 07/08/17 19:49> Diagnosis at time of Disposition: Pneumonia - Discharge Dispostion Condition at time of disposition: Guarded
[2017-07-07] MEDS ORDERED: SODIUM CHLORIDE 1,000 ML IV STA ×2 (19:15→22:51)
[2017-07-07 21:43] LABS: BASOPHIL 0.4 % (0-2.0); MCH 28.9 pg (25.7-33.7); MCHC 34.3 g/dl (32.0-35.9); MEAN PLT VOLUME 7.3 fl (7.5-11.1); NEUTROPHILS 49.4 % (42.8-82.8); PLATELET COUNT 318 K/MM3 (134-434); RDW 13.8 % (11.9-15.9); WHITE BLOOD COUNT 8.8 K/mm3 (4.0-10.0)
[2017-07-07 22:21] LABS: ALBUMIN 3.3 g/dl (3.4-5.0); ANION GAP 8 (8-16); CO2 26 mmol/L (21-32); CREATININE 0.4 mg/dL (0.7-1.3); GLUCOSE,RANDOM 88 mg/dL (74-106); SGPT/ALT 27 U/L (12-78)
[2017-07-07 22:23] LABS: ALK PHOS 100 U/L (45-117); BILIRUBIN,TOTAL 0.3 mg/dL (0.2-1.0); TOT PROT 7.5 g/dl (6.4-8.2)
[2017-07-07 22:25] LABS: SGOT/AST 26 U/L (15-37)
[2017-07-08] MEDS ORDERED: PIPERACILLIN/TAZOB 3.375 GM 50 ML IVPB ONE (00:53)
[2017-07-08] MEDS ORDERED: VANCOMYCIN 1,000 MG in DEXTROSE 5%-WATER - 250 ML IVPB ONE (00:54)
--- NOTE | 2017-07-08 04:55 | HP ---
CHIEF COMPLAINT: PCP: HISTORY OF PRESENT ILLNESS: 26 yo M from [facility] [place] with a significant PMHx of mental retardation, dysphagia, s/p peg insertion, seizures, hyponatremia (due to meds) and asthma, averbal and uses a wheel chair at baseline, presenting with an aide from the facility with fever and increased secretions. The aide reports that the patient has been receiving Augmentin at [place] for 5 days and Tylenol with little to no relief of the symptoms. Patient was noted to have a cough but appears able to protect his airway. ER course was notable for: (1) Tmax 1005 >97.5 (2) Lactic acid- 2.1>>1.2 (3) CXR- No acute pathology 4) CBC, CMP 5) Vanc and zosyn -given in ED Recent Travel: None PAST MEDICAL HISTORY: mental retardation, dysphagia, s/p peg insertion, seizures, hyponatremia (due to meds) asthma PAST SURGICAL HISTORY: Social History: Smoking: None Alcohol:None Drugs: None Family History: Allergies phenobarbital Allergy (Verified 07/07/17 18:43) pork derived (porcine) Allergy (Verified 07/07/17 18:43) venom-honey bee [bee venom (honey bee)] Allergy (Verified 07/07/17 18:43) HOME MEDICATIONS: Home Medications Medication Instructions Recorded Acetaminophen [Tylenol] 480 mg GT PRN PRN 01/19/15 Albuterol 2.5/Ipratropium 0.5 1 neb IH QID PRN 01/19/15 [Duoneb -] Baclofen 20 mg PO BID 01/19/15 Cholecalciferol (Vitamin D3) 2,000 unit GT DAILY 01/19/15 [Vitamin D3] Clonidine HCl [Clonidine HCl ER] 0.2 mg PO HS 01/19/15 Diazepam *Pediatric Rectal* 20 mg RC PRN 01/19/15 [Diastat *Pediatric Rectal Gel* -] Levetiracetam [Keppra Oral 1,500 mg GT BID 01/19/15 Solution -] Omeprazole [Prilosec] 20 mg GT DAILY 01/19/15 Budesonide [Pulmicort 0.5 mg 1 neb NEB BID 02/15/16 Nebulizer -] Tamsulosin HCl [Flomax -] 0.4 mg PO DAILY@0830 #30 cap.er.24h 02/25/16 Albuterol 2.5/Ipratropium 0.5 1 amp NEB QIDR amp 01/04/17 [Duoneb -] Aspirin [ASA -] 81 mg PO DAILY tab.chew 01/04/17 Clonidine HCl [Catapres -] 0.1 mg PO HS tablet 01/04/17 Enoxaparin [Lovenox -] 40 mg SQ DAILY #30 syringe 01/04/17 Levetiracetam Injection [Keppra 1,500 mg IVPB BID ml 01/04/17 Injection -] Prednisone [Deltasone -] See Taper PO DAILY #14 tablet 01/04/17 REVIEW OF SYSTEMS CONSTITUTIONAL: Absent: fever+, chills, diaphoresis, generalized weakness, malaise, loss of appetite, weight change HEENT: Absent: rhinorrhea, nasal congestion, throat pain, throat swelling, difficulty swallowing, mouth swelling, ear pain, eye pain, visual changes CARDIOVASCULAR: Absent: chest pain, syncope, palpitations, irregular heart rate, lightheadedness , peripheral edema RESPIRATORY: Absent: cough+, shortness of breath, dyspnea with exertion, orthopnea, wheezing , stridor, hemoptysis GASTROINTESTINAL: Absent: abdominal pain, abdominal distension, nausea, vomiting, diarrhea, constipation, melena, hematochezia GENITOURINARY: Absent: dysuria, frequency, urgency, hesitancy, hematuria, flank pain, genital pain MUSCULOSKELETAL: Absent: myalgia, arthralgia, joint swelling, back pain, neck pain SKIN: Absent: rash, itching, pallor HEMATOLOGIC/IMMUNOLOGIC: Absent: easy bleeding, easy bruising, lymphadenopathy, frequent infections ENDOCRINE: Absent: unexplained weight gain, unexplained weight loss, heat intolerance, cold intolerance NEUROLOGIC: Absent: headache, focal weakness or paresthesias, dizziness, unsteady gait, seizure, mentally retarded+, bladder or bowel incontinence PSYCHIATRIC: Absent: anxiety, depression, suicidal or homicidal ideation, hallucinations. PHYSICAL EXAMINATION Vital Signs - 24 hr 07/07/17 18:43 Temperature 100.5 F H Pulse Rate 119 H Respiratory 22 Rate Blood Pressure 97/64 O2 Sat by Pulse 97 Oximetry (%) GENERAL: Patient not awake HEAD: Normal with no signs of trauma. LUNGS:Coarse breath sounds HEART: Regular rhythm, tachycardic, S1 and S2 ABDOMEN: Soft, nontender, not distended, JPEG in place MUSCULOSKELETAL: contracted limbs UPPER EXTREMITIES: 2+ pulses, warm, well-perfused. No cyanosis. No clubbing. No peripheral edema. LOWER EXTREMITIES: 2+ pulses, warm, well-perfused. No calf tenderness. No peripheral edema. NEUROLOGICAL: Could not assess Laboratory Results - last 24 hr 07/07/17 07/07/17 07/07/17 21:30 21:30 21:30 WBC 8.8 RBC 4.80 Hgb 13.9 Hct 40.3 MCV 84.0 MCH 28.9 MCHC 34.3 RDW 13.8 Plt Count 318 MPV 7.3 L Neutrophils % 49.4 Lymphocytes % 39.7 Monocytes % 9.5 Eosinophils % 1.0 Basophils % 0.4 Sodium 135 L Potassium 3.8 Chloride 101 Carbon Dioxide 26 Anion Gap 8 BUN 7 Creatinine 0.4 L D Creat Clearance w eGFR > 60 Random Glucose 88 Lactic Acid 2.1 H* Calcium 8.0 L Total Bilirubin 0.3 D AST 26 ALT 27 Alkaline Phosphatase 100 Total Protein 7.5 Albumin 3.3 L 07/08/17 03:00 WBC RBC Hgb Hct MCV MCH MCHC RDW Plt Count MPV Neutrophils % Lymphocytes % Monocytes % Eosinophils % Basophils % Sodium Potassium Chloride Carbon Dioxide Anion Gap BUN Creatinine Creat Clearance w eGFR Random Glucose Lactic Acid 1.2 Calcium Total Bilirubin AST ALT Alkaline Phosphatase Total Protein Albumin ASSESSMENT/PLAN: [address] M from [facility] [place] with a significant PMHx of mental retardation, dysphagia, s/p peg insertion, seizures, hyponatremia (due to meds) and asthma, averbal presenting with fever cough and increased secretions and 5 days history of augmentin use #Sepsis 2/2 aspiration PNA Fever, tachycardia, cough and increased sputum production i.v. Zosyn 2.25mg- 2 doses given Stop Vancomycin ID consult- Dr Womack Pulm consult-Dr Trevizo Respiratory virus pcr iv normal saline @75/hr CXR Abd CT Hold Tube feeding for now Elevate head of bed Aspiration precautions #mental retardation Aspiration precautions #dysphagia, s/p peg insertion Hold JPEG for now #seizures Diazepam rectal PRN- on hold Levetiracetam [Keppra Oral #hyponatremia resolved Monitor lytes #asthma Resume Nebs #HTN Resume Clonidine #Urethral obstruction Resume Flomax #DVT propylaxis Resume lovenox SQ Visit type - Emergency Visit Emergency Visit: Yes ED Registration Date: 07/08/17 Care time: The patient presented to the Emergency Department on the above date and was hospitalized for further evaluation of their emergent condition. - New Patient This patient is new to me today: Yes Date on this admission: 07/08/17 - Critical Care Critical Care patient: No
[2017-07-08] MEDS ORDERED: PIPERACILLIN/TAZOB 2.25 GM/50 ML PREMIX BAG IVPB ONE (05:00)
--- NOTE | 2017-07-08 05:05 | PN ---
Teaching Attending Note Name of Resident: Shelbi Rodriguez ATTENDING PHYSICIAN STATEMENT I saw and evaluated the patient. Chart, data, imaging reviewed. I reviewed the resident's note and discussed the case with the resident. I agree with the resident's findings and plan as documented. SUBJECTIVE: 26 year old male with mental developmental delay, dysphagia, s/p peg insertion, seizures, brought via EMS from [facility] with matrix worker, presenting with fever of 100.5F and suspected aspiration PNA. Pt was taking Augmentin in longterm for 5 days with minimal improvement. He appears to have a productive cough and can protect his airway. Pt otherwise nonverbal. OBJECTIVE: Last Vital Signs Temp Pulse Resp BP Pulse Ox 97.5 F L 101 H 22 143/101 97 07/08/17 04:00 07/08/17 04:00 07/08/17 04:00 07/08/17 04:00 07/08/17 04:00 General- MR, bedbound, +cough HEENT- no sinus tenderness, moist oral mucosa neck -supple cv-s1+s2+ RRR Chest -coarse breath sounds b/l Abdomen - soft, NT, no masses appreciated, PEG +, no erythema around insertion site Abnormal Lab Results 07/07/17 07/07/17 07/07/17 21:30 21:30 21:30 MPV 7.3 L Sodium 135 L Creatinine 0.4 L D Lactic Acid 2.1 H* Calcium 8.0 L Albumin 3.[address] -reviewed ASSESSMENT AND PLAN: #26yo developmentally delayed man from longterm with fever, tachycardia, productive cough, coarse breath sounds, and some respiratory distress concerning for sepsis 2/2 aspiration PNA. Patient is at high risk for aspiration given his developmental delay. S/p vancomycin and pip/tazo in ER -admit to med/surg -supplemental oxygen via nasal cannula -pip/tazo 3.375g IV q6hrs -ID consult -IV fluid hydration -hold PEG feedings for now -aspiration precautions -elevate head of bed -EKG -repeat lactate Continue home medications for chronic medical problems #DVT ppx -heparin sc
[2017-07-08] MEDS: SODIUM CHLORIDE 1,000 ML IV SCH ×2 (05:25→20:58)
[2017-07-08 06:07] VITALS: BMI 21.3
[2017-07-08] MEDS ORDERED: ALBUTEROL SO4 2.5/IPRATROPIUM 0.5 INH SOL 3 ML VIAL.NEB. NEB PRN (06:11)
[2017-07-08 08:39] LABS: BASOPHIL 0.6 % (0-2.0); EOSINOPHIL 1.4 % (0-4.5); MCHC 33.3 g/dl (32.0-35.9); MEAN PLT VOLUME 7.4 fl (7.5-11.1); NEUTROPHILS 54.7 % (42.8-82.8); PLATELET COUNT 309 K/MM3 (134-434); RDW 13.4 % (11.9-15.9); WHITE BLOOD COUNT 6.1 K/mm3 (4.0-10.0)
[2017-07-08 09:00] LABS: ANION GAP 9 (8-16); CALCIUM 8.3 mg/dL (8.5-10.1); CO2 25 mmol/L (21-32); CREATININE 0.3 mg/dL (0.7-1.3); GLUCOSE,RANDOM 84 mg/dL (74-106); MAGNESIUM 2.1 mg/dL (1.8-2.4); PHOSPHOROUS 3.6 mg/dL (2.5-4.9)
[2017-07-08] MEDS ORDERED: PT OWN MED DRAWER 7, Y5N ONE ×2 (09:04→13:59)
[2017-07-08] MEDS: ENOXAPARIN NA (PORCINE) 40 MG/0.4 ML DISP.SYRIN SQ SCH (09:11)
[2017-07-08] MEDS: ASPIRIN 81 MG CHEWABLE TABLETS PO SCH (09:11)
[2017-07-08] MEDS: levETIRAcetam 500 MG/5 ML ORAL SOLUTION (UNIT-DOSE CUPS) GT SCH ×2 (09:11→21:40)
[2017-07-08] MEDS: TAMSULOSIN HCL 0.4 MG CAP.ER.24H (FP) PO SCH (09:11)
[2017-07-08] MEDS: BACLOFEN 10 MG TABLET (FP) PO SCH ×2 (09:11→21:40)
[2017-07-08] MEDS: PANTOPRAZOLE SOD 40 MG SUSPENSION PACKET GT SCH (09:11)
--- NOTE | 2017-07-08 09:15 | PN ---
Physical Exam: SUBJECTIVE: Patient seen and examined by me at bedside. Patient was coughing throughout examination. Suctioning was done and patient was then given DuoNeb with relief of cough. Patient is developmentally delayed and nonverbal. OBJECTIVE: Vital Signs Period Temp Pulse Resp BP Sys/Don Pulse Ox Last 24 Hr 97.5 F-100.5 F 101-119 22-22 97-143/64-101 97-97 GENERAL: The patient is drowsy, MR, nonverbal and disoriented. HEAD: Normal with no signs of trauma. EYES: Sclera anicteric, conjunctiva clear. ENT: Oropharynx clear without exudates, moist mucous membranes. LUNGS: Coarse breath sounds throughout bases bilaterally HEART:Tachycardic and regular rhythm, normal S1 and S2 without murmur, rub or gallop. ABDOMEN: Soft, nontender, nondistended, normoactive bowel sounds with no guarding. (+) PEG tube with mild erythema but no drainage around the insertion site. EXTREMITIES: No peripheral edema. NEUROLOGICAL: Non-verbal Laboratory Results - last 24 hr 07/07/17 07/07/17 07/07/17 21:30 21:30 21:30 WBC 8.8 RBC 4.80 Hgb 13.9 Hct 40.3 MCV 84.0 MCH 28.9 MCHC 34.3 RDW 13.8 Plt Count 318 MPV 7.3 L Neutrophils % 49.4 Lymphocytes % 39.7 Monocytes % 9.5 Eosinophils % 1.0 Basophils % 0.4 Sodium 135 L Potassium 3.8 Chloride 101 Carbon Dioxide 26 Anion Gap 8 BUN 7 Creatinine 0.4 L D Creat Clearance w eGFR > 60 Random Glucose 88 Lactic Acid 2.1 H* Calcium 8.0 L Total Bilirubin 0.3 D AST 26 ALT 27 Alkaline Phosphatase 100 Total Protein 7.5 Albumin 3.3 L 07/08/17 07/08/17 03:00 08:00 WBC 6.1 D RBC 4.48 Hgb 12.5 D Hct 37.6 MCV 84.0 MCH 28.0 MCHC 33.3 RDW 13.4 Plt Count 309 MPV 7.4 L Neutrophils % 54.7 Lymphocytes % 36.1 Monocytes % 7.2 Eosinophils % 1.4 Basophils % 0.6 Sodium Potassium Chloride Carbon Dioxide Anion Gap BUN Creatinine Creat Clearance w eGFR Random Glucose Lactic Acid 1.2 Calcium Total Bilirubin AST ALT Alkaline Phosphatase Total Protein Albumin Active Medications Generic Name Dose Route Start Last Admin Trade Name Freq PRN Reason Stop Dose Admin Albuterol/Ipratropium 1 amp 07/08/17 12:00 Duoneb - NEB QIDR ALEKSANDR Albuterol/Ipratropium 1 amp 07/08/17 06:11 Duoneb - NEB QID PRN COUGH Aspirin 81 mg 07/08/17 10:00 Asa - PO DAILY ALEKSANDR Baclofen 20 mg 07/08/17 10:00 Lioresal - PO BID ALEKSANDR Budesonide 1 amp 07/08/17 10:00 Pulmicort 0.5 Mg Nebulizer - NEB BID ALEKSANDR Cholecalciferol 2,000 unit 07/08/17 10:00 Vitamin D3 - GT DAILY ALEKSANDR Clonidine 0.1 mg 07/08/17 22:00 Catapres - PO HS ALEKSANDR Enoxaparin Sodium 40 mg 07/08/17 10:00 Lovenox - SQ DAILY [facility] Sodium Chloride 1,000 mls @ 75 mls/hr 07/08/17 04:45 07/08/17 05:25 Normal Saline - IV 75 mls/hr ASDIR ALEKSANDR Administration Levetiracetam 1,500 mg 07/08/17 10:00 Keppra Oral Solution - GT BID [facility] Non-Formulary Medication 0.2 mg 07/08/17 22:00 Clonidine Hcl [Clonidine Hcl Er] PO HS ALEKSANDR Pantoprazole Sodium 40 mg 07/08/17 10:00 Protonix Packets For Oral Suspension - GT DAILY [facility] Tamsulosin HCl 0.4 mg 07/08/17 08:30 Flomax - PO DAILY@0830 [facility] IMAGES: Chest X-ray (07/07/17): The heart size is within normal limits. No acute infiltrates or pleural effusions are present. Patient is S/P thoracic brown placement for a dextroscoliosis. Abdomen/Pelvis/Chest CT (07/07/17): Marked elevation of the right hemidiaphragm. Mild atelectatic changes/consolidation in the right lung base, posteriorly. Cannot rule out superimposed infiltrates. In the abdomen and pelvis , there is fluid stools in the sigmoid colon with an air-fluid level in the distal sigmoid colon at the rectosigmoid junction. Dislocated right femoral head , superiorly. Otherwise, there is no CT evidence of an acute process in the abdomen pelvis ASSESSMENT/PLAN: Patient is a 26 year old developmentally delayed male from [facility] who was brought in for a week history of cough and fevers. Patient was found to be septic and admitted to med/surg for further monitoring and management. Sepsis Likely secondary to RLL Pneumonia -Presented with fevers, tachycardia, tachypnea, lactic acidosis -Chest X-ray revealed no acute pathology. CT revealed possible superimposed infiltrates with mild atelectatic changes and consolidation in the right lung base. -Flu negative -Respratory virus PCR, urine legionella, and mycoplasma peumoniae IGM sent -Blood cultures pending -Continue Duo/Neb 1 amp NEB QID -IV NS @75mls/hr -Zosyn 2.25mg given -Ceftriaxone 1gm IV daily and Azithromycin 500mg IV daily -O2 NC PRN -ID consult ordered -Pulmonology consult ordered -Tube feeds held -Elevate head and aspiration precautions Seizure Disorder-Controlled -Continue Keppra 1500mg BID GT -Continue Baclofen 20mg BID GT Asthma- Controlled -Currently in no acute exacerbation -Continue Pulmicort 1 amp BID NEB -Continue DuoNebs QID -Continue to monitor 02 saturation -O2 NC HTN-Controlled -Continue Clonidine 0.1mg PO HS daily -Continue to monitor BP F/E/N -On IV NS @75mls/hr -Elevctrolytes wnl -NPO Prophylaxis -High risk due to immobility. Lovenox 40mg SQ daily for DVT -Protonix 40mg GT daily for GI Deconditioning -Patient is immobile and requires total care. Disposition -Full code -Requires IV antibiotics. Will need to remain inpatient for another night at least. Visit type - Emergency Visit Emergency Visit: Yes ED Registration Date: 07/08/17 Care time: The patient presented to the Emergency Department on the above date and was hospitalized for further evaluation of their emergent condition. - New Patient This patient is new to me today: Yes Date on this admission: 07/08/17 - Critical Care Critical Care patient: No
[2017-07-08] MEDS ORDERED: CHOLECALCIFEROL (VITAMIN D3) 1,000 UNIT TABLET (FP) GT SCH (10:00)
--- NOTE | 2017-07-08 10:27 | CON.PULM ---
Consult Consult Specialty:: PULM/CCM Referred by:: PMNgozi Reason for Consultation:: SOB - History of Present Illness Chief Complaint: Fever / SOB - History Source History Provided By: Medical Record Limitations to Obtaining History: Clinical Condition - Past Medical History [employer]: Yes: Seizure, Other (CP) Pulmonary: Yes: Asthma Musculoskeletal: Yes: Other (scoliosis) - Past Surgical History Past Surgical History: Yes: None - Alcohol/Substance Use Hx Alcohol Use: No History of Substance Use: reports: None - Smoking History Smoking history: Never smoked Have you smoked in the past 12 months: No Aproximately how many cigarettes per day: 0 - Social History Usual Living Arrangement: [facility] ADL: Support Services History of Recent Travel: No Home Medications - Allergies Allergies/Adverse Reactions: Allergies Allergy/AdvReac Type Severity Reaction Status Date / Time phenobarbital Allergy Verified 07/07/17 18:43 pork derived (porcine) Allergy Verified 07/07/17 18:43 venom-honey bee Allergy Verified 07/07/17 18:43 [bee venom (honey bee)] - Home Medications Home Medications: Ambulatory Orders Acetaminophen [Tylenol] 480 mg GT PRN PRN 01/19/15 Albuterol 2.5/Ipratropium 0.5 [Duoneb -] 1 neb IH QID PRN 01/19/15 Baclofen 20 mg PO BID 01/19/15 Cholecalciferol (Vitamin D3) [Vitamin D3] 2,000 unit GT DAILY 01/19/15 Clonidine HCl [Clonidine HCl ER] 0.2 mg PO HS 01/19/15 Diazepam *Pediatric Rectal* [Diastat *Pediatric Rectal Gel* -] 20 mg RC PRN Levetiracetam [Keppra Oral Solution -] 1,500 mg GT BID 01/19/15 Omeprazole [Prilosec] 20 mg GT DAILY 01/19/15 Budesonide [Pulmicort 0.5 mg Nebulizer -] 1 neb NEB BID 02/15/16 Tamsulosin HCl [Flomax -] 0.4 mg PO DAILY@0830 #30 cap.er.24h 02/25/16 Albuterol 2.5/Ipratropium 0.5 [Duoneb -] 1 amp NEB QIDR amp 01/04/17 Aspirin [ASA -] 81 mg PO DAILY tab.chew 05/08/17 Clonidine HCl [Catapres -] 0.1 mg PO HS tablet 01/04/17 Enoxaparin [Lovenox -] 40 mg SQ DAILY #30 syringe 01/04/17 Levetiracetam Injection [Keppra Injection -] 1,500 mg IVPB BID ml 01/04/17 Prednisone [Deltasone -] See Taper PO DAILY #14 tablet 01/04/17 Review of Systems Unable to obtain ROS, reason: not able to provide Physical Exam Vital Sings: Vital Signs Temperature 98.6 F 07/08/17 06:39 Pulse Rate 101 H 07/08/17 04:00 Respiratory Rate 22 07/08/17 04:00 Blood Pressure 143/101 07/08/17 04:00 O2 Sat by Pulse Oximetry (%) 97 07/08/17 04:00 Constitutional: Yes: No Distress Eyes: Yes: Conjunctiva Clear, EOM Intact HENT: Yes: Atraumatic, Normocephalic Neck: Yes: Supple, Trachea Midline Cardiovascular: Yes: Regular Rate and Rhythm Respiratory: Yes: Cough, Diminished, Dullness, On Nasal O2, Rhonchi. No: Accessory Muscle Use, Rales, Stridor, Tachypnea, Wheezes ...Inspection: Yes: WNL ...Clubbing: No Gastrointestinal: Yes: Normal Bowel Sounds, Soft, Other (PEG ) Renal/: Yes: WNL Musculoskeletal: Yes: WNL Extremities: Yes: WNL Edema: No Peripheral Pulses WNL: Yes Integumentary: Yes: WNL Neurological: Yes: Alert Psychiatric: Yes: Alert Labs: CBC, BMP 07/08/17 08:00 07/08/17 08:00 Imaging - Results Chest X-ray: Report Reviewed, Image Reviewed Cat Scan: Report Reviewed, Image Reviewed Problem List - Problems (1) Atelectasis of right lung Code(s): J98.11 - ATELECTASIS (2) Asthma Code(s): J45.909 - UNSPECIFIED ASTHMA, UNCOMPLICATED (3) Cerebral palsy Code(s): G80.9 - CEREBRAL PALSY, UNSPECIFIED Qualifiers: Cerebral palsy type: unspecified type Qualified Code(s): G80.9 - Cerebral palsy, unspecified (4) Lactic acidosis Code(s): E87.2 - ACIDOSIS (5) Seizure Code(s): R56.9 - UNSPECIFIED CONVULSIONS (6) Pneumonia Code(s): J18.9 - PNEUMONIA, UNSPECIFIED ORGANISM Assessment/Plan CT findings more consistent with focal consolidation/atelectasis in the RLL rather than a true aspiration. Noted ABX coverage. O2 as needed. Aspiration precautions. Check urinary antigen. BD TX PRN. If clinical condition worsens, can add Medrol 40mg daily Can likely restart feedings Will follow Thank you. Dr Trevizo
[2017-07-08 12:50] LABS: URINE APPEARANCE SLCLOUDY; URINE BILIRUBIN NEGATIVE (NEGATIVE); URINE BLOOD NEGATIVE (NEGATIVE); URINE COLOR LTYELLOW; URINE GLUCOSE (UA) NEGATIVE (NEGATIVE); URINE KETONE NEGATIVE (NEGATIVE); URINE NITRITE NEGATIVE (NEGATIVE); URINE PROTEIN NEGATIVE (NEGATIVE); URINE UROBILINOGEN NEGATIVE mg/dL (0.2-1.0)
--- NOTE | 2017-07-08 13:26 | PN ---
Progress Note (short form) - Note Progress Note: ID Consult dictated RLL pneumonia Possible sepsis secondary to pneumonia MR Pending cultures empiric ceftriaxone/ zithromax Aspiration precautions
--- NOTE | 2017-07-08 13:51 | CONS ---
DATE OF CONSULTATION: HISTORY: The patient is a 26-year-old male with a history of profound mental retardation, seizure disorder evaluated for pneumonia. The patient is a resident of [facility]. He was noted at the center to have fever. He was treated with Augmentin and Tylenol for presumed pneumonia. He was transferred to [facility] with reports of persistent fever. Chest x-ray on admission was read as negative; however, CAT scan of the chest, abdomen, and pelvis shows an elevated right hemidiaphragm and a right basilar infiltrate. He was empirically treated with vancomycin and Zosyn. He is unable to give any additional history. According to the aide, his breathing has been nonlabored. He has an occasional cough. He was last admitted to the hospital in March for respiratory issues. PAST MEDICAL HISTORY: Positive for profound mental retardation, seizure disorder, bronchial asthma. PAST SURGICAL HISTORY: Status post feeding gastrostomy and left hip osteotomy. ALLERGIES: PHENOBARBITAL. SOCIAL HISTORY: He is normally bed bound and wheelchair bound. He is not verbally responsive. LABORATORY DATA: White count 6.1, hematocrit 37.6, platelet count 309, BUN 4, creatinine 0.3, lactic acid 2.1. Influenza swab negative. Cultures pending. PHYSICAL EXAMINATION: General: He is in no acute distress. Vital Signs: Temperature 97.2, T-max 100.5, blood pressure 113/52, pulse 92 and regular, respirations 22 per minute. HEENT: Sclerae anicteric. There is conjunctival injection right eye without purulent drainage. Heart: Sounds S1, S2. Lungs: Bilateral rhonchi. Abdomen: Soft with feeding gastrostomy tube. Extremities: Positive for contractures. IMPRESSION: 1. Right lower lobe pneumonia. 2. Possible sepsis secondary to pneumonia. 3. Profound mental retardation. PLAN: Await cultures. Legionella and pneumococcal antigen. Empiric antibiotic coverage with Zithromax and ceftriaxone pending cultures. Aspiration precautions. We will follow. Thank you for the kind referral. SUNITA DALAL M.D. OMARI/[id number]
[2017-07-08] MEDS: CEFTRIAXONE 1 G/50 ML PREMIX 50 ML IVPB SCH (14:01)
[2017-07-08] MEDS: AZITHROMYCIN IVPB 500 MG in DEXTROSE 5%-WATER - 250 ML IVPB SCH (15:31)
[2017-07-08 16:18] LABS: URINE LEUK ESTERASE Negative (NEGATIVE)
[2017-07-08] MEDS: ALBUTEROL SO4 2.5/IPRATROPIUM 0.5 INH SOL 3 ML VIAL.NEB. NEB SCH ×2 (17:00→23:06)
[2017-07-08] MEDS: clonazePAM 2 MG TABLET PO SCH (18:30)
--- NOTE | 2017-07-08 20:33 | PN ---
Teaching Attending Note Name of Resident: Sara Tinsley ATTENDING PHYSICIAN STATEMENT I saw and evaluated the patient. I reviewed the resident's note and discussed the case with the resident. I agree with the resident's findings and plan as documented. SUBJECTIVE: Lying in bed with no acute distress, aid is at bedside. OBJECTIVE: Vital Signs Temperature 98.3 F 07/08/17 15:08 Pulse Rate 106 H 07/08/17 15:08 Respiratory Rate 18 07/08/17 15:08 Blood Pressure 98/54 07/08/17 15:08 O2 Sat by Pulse Oximetry (%) 97 07/08/17 09:00 CBCD WBC 6.1 K/mm3 (4.0-10.0) D 07/08/17 08:00 RBC 4.48 M/mm3 (4.00-5.60) 07/08/17 08:00 Hgb 12.5 GM/dL (11.7-16.9) D 07/08/17 08:00 Hct 37.6 % (35.4-49) 07/08/17 08:00 MCV 84.0 fl (80-96) 07/08/17 08:00 MCHC 33.3 g/dl (32.0-35.9) 07/08/17 08:00 RDW 13.4 % (11.9-15.9) 07/08/17 08:00 Plt Count 309 K/MM3 (134-434) 07/08/17 08:00 MPV 7.4 fl (7.5-11.1) L 07/08/17 08:00 CMP Sodium 140 mmol/L (136-145) 07/08/17 08:00 Potassium 3.8 mmol/L (3.5-5.1) 07/08/17 08:00 Chloride 106 mmol/L (98-107) 07/08/17 08:00 Carbon Dioxide 25 mmol/L (21-32) 07/08/17 08:00 Anion Gap 9 (8-16) 07/08/17 08:00 BUN 4 mg/dL (7-18) L D 07/08/17 08:00 Creatinine 0.3 mg/dL (0.7-1.3) L D 07/08/17 08:00 Creat Clearance w eGFR > 60 (>60) 07/07/17 21:30 Random Glucose 84 mg/dL (74-106) 07/08/17 08:00 Calcium 8.3 mg/dL (8.5-10.1) L 07/08/17 08:00 Total Bilirubin 0.3 mg/dL (0.2-1.0) D 07/07/17 21:30 AST 26 U/L (15-37) 07/07/17 21:30 ALT 27 U/L (12-78) 07/07/17 21:30 Alkaline Phosphatase 100 U/L (45-117) 07/07/17 21:30 Total Protein 7.5 g/dl (6.4-8.2) 07/07/17 21:30 Albumin 3.3 g/dl (3.4-5.0) L 07/07/17 21:30 Current Medications Generic Name Dose Route Start Last Admin Trade Name Freq PRN Reason Stop Dose Admin Albuterol/Ipratropium 1 amp 07/08/17 12:00 07/08/17 17:00 Duoneb - NEB 1 amp QIDR ALEKSANDR Administration Albuterol/Ipratropium 1 amp 07/08/17 06:11 Duoneb - NEB QID PRN COUGH Aspirin 81 mg 07/08/17 10:00 07/08/17 09:11 Asa - PO 81 mg DAILY ALEKSANDR Administration Baclofen 20 mg 07/08/17 10:00 07/08/17 09:11 Lioresal - PO 20 mg BID ALEKSANDR Administration Budesonide 1 amp 07/08/17 10:00 Pulmicort 0.5 Mg Nebulizer - NEB BID ALEKSANDR Carbamazepine 280 mg 07/08/17 18:15 Tegretol Oral Suspension - GT BID ALEKSANDR Clonazepam 1 mg 07/08/17 18:15 07/08/17 18:30 Klonopin - PO 1 mg TID ALEKSANDR Administration Clonidine 0.1 mg 07/08/17 22:00 Catapres - PO HS ALEKSANDR Enoxaparin Sodium 40 mg 07/08/17 10:00 07/08/17 09:11 Lovenox - SQ 40 mg DAILY ALEKSANDR Administration Sodium Chloride 1,000 mls @ 75 mls/hr 07/08/17 04:45 07/08/17 05:25 Normal Saline - IV 75 mls/hr ASDIR ALEKSANDR Administration CEFTRIAXONE 1 G/50 ML PREMIX 50 mls @ 100 mls/hr 07/08/17 13:30 07/08/17 14: 01 Ceftriaxone 1 Gm-D5w Bag IVPB 100 mls/hr DAILY ALEKSANDR Administration Azithromycin 500 mg/ Dextrose 250 mls @ 250 mls/hr 07/08/17 14:00 07/08/17 15 :31 IVPB 250 mls/hr DAILY ALEKSANDR Administration Levetiracetam 1,500 mg 07/08/17 10:00 07/08/17 09:11 Keppra Oral Solution - GT 1,500 mg BID ALEKSANDR Administration Pantoprazole Sodium 40 mg 07/08/17 10:00 07/08/17 09:11 Protonix Packets For Oral Suspension - GT 40 mg DAILY ALEKSANDR Administration Tamsulosin HCl 0.4 mg 07/08/17 08:30 07/08/17 09:11 Flomax - PO 0.4 mg DAILY@0830 ALEKSANDR Administration Home Medications Medication Instructions Recorded Acetaminophen [Tylenol] 480 mg GT PRN PRN 01/19/15 Albuterol 2.5/Ipratropium 0.5 1 neb IH QID PRN 01/19/15 [Duoneb -] Baclofen 20 mg PO BID 01/19/15 Cholecalciferol (Vitamin D3) 2,000 unit GT DAILY 01/19/15 [Vitamin D3] Clonidine HCl [Clonidine HCl ER] 0.2 mg PO HS 01/19/15 Diazepam *Pediatric Rectal* 20 mg RC PRN 01/19/15 [Diastat *Pediatric Rectal Gel* -] Levetiracetam [Keppra Oral 1,500 mg GT BID 01/19/15 Solution -] Omeprazole [Prilosec] 20 mg GT DAILY 01/19/15 Budesonide [Pulmicort 0.5 mg 1 neb NEB BID 02/15/16 Nebulizer -] Tamsulosin HCl [Flomax -] 0.4 mg PO DAILY@0830 #30 cap.er.24h 02/25/16 Albuterol 2.5/Ipratropium 0.5 1 amp NEB QIDR amp 01/04/17 [Duoneb -] Aspirin [ASA -] 81 mg PO DAILY tab.chew 01/04/17 Clonidine HCl [Catapres -] 0.1 mg PO HS tablet 01/04/17 Enoxaparin [Lovenox -] 40 mg SQ DAILY #30 syringe 01/04/17 Levetiracetam Injection [Keppra 1,500 mg IVPB BID ml 01/04/17 Injection -] Prednisone [Deltasone -] See Taper PO DAILY #14 tablet 01/04/17 PE: per resident's note ASSESSMENT AND PLAN: Patient is a 26yo developmentally delayed man from retirement presented with fever, tachycardia, productive cough, coarse breath sounds. #Acute respiratory distress possible due to aspiration PNA. Patient is at high risk for aspiration given his developmental delay. On vancomycin and pip/tazo continue, ID consult to see the patient. Continue to elevate head of Bed to 30- 45 degrees at all time to avoid aspiration. also ordered RSV , follow the result. # RLL pneumonia on IV Rocephin and Zithromax # Sepsis due to RLL PNA, on IV antibiotic, iD on the case # Continue home medications for chronic medical problems #DVT ppx: heparin sc
[2017-07-08] MEDS: carBAMazepine 200 MG/10 ML UNIT-DOSE CUP GT SCH (20:34)
[2017-07-08] MEDS: BUDESONIDE 0.5 MG/2 ML INH SUSP VIAL NEB SCH (21:34)
[2017-07-08] MEDS: cloNIDine HCL 0.1 MG TABLET PO SCH (21:40)
[2017-07-08] MEDS ORDERED: CLONIDINE HCL 0.2 MG PO SCH (22:00)
[2017-07-08] MEDS ORDERED: ACETAMINOPHEN 325 MG TABLET (FP) PO PRN (22:38)
[2017-07-08] MEDS ORDERED: ACETAMINOPHEN 650 MG/20.3 ML ORAL SOLUTION (CUPS) PO PRN (22:52)
[2017-07-09] MEDS: clonazePAM 2 MG TABLET PO SCH ×3 (05:57→23:02)
[2017-07-09] MEDS: SODIUM CHLORIDE 1,000 ML IV SCH (05:58)
[2017-07-09] MEDS: ALBUTEROL SO4 2.5/IPRATROPIUM 0.5 INH SOL 3 ML VIAL.NEB. NEB SCH ×4 (06:12→23:03)
--- NOTE | 2017-07-09 07:57 | PN ---
Physical Exam: SUBJECTIVE: Patient seen and examined by me at bedside. Patient continues to have cough with productive sputum. Low grade fever overnight of 100.3 with Tylenol ordered by the overnight team. Patient nonverbal requiring total care. OBJECTIVE: Vital Signs Period Temp Pulse Resp BP Sys/Don Pulse Ox Last 24 Hr 97.2 F-100.3 F 90-126 18-22 98-129/52-70 92-97 GENERAL: MR, nonverbal and disoriented. EYES: Sclera anicteric with green drainage out of right eye. ENT: Oropharynx clear without exudates, moist mucous membranes. LUNGS: Coarse breath sounds throughout bases bilaterally HEART:Tachycardic and regular rhythm, normal S1 and S2 without murmur, rub or gallop. ABDOMEN: Soft, nontender, nondistended, normoactive bowel sounds with no guarding. (+) PEG tube with mild erythema but no drainage around the insertion site. EXTREMITIES: No peripheral edema. NEUROLOGICAL: Non-verbal Laboratory Results - last 24 hr 07/08/17 07/08/17 07/08/17 06:07 08:00 08:00 WBC 6.1 D RBC 4.48 Hgb 12.5 D Hct 37.6 MCV 84.0 MCH 28.0 MCHC 33.3 RDW 13.4 Plt Count 309 MPV 7.4 L Neutrophils % 54.7 Lymphocytes % 36.1 Monocytes % 7.2 Eosinophils % 1.4 Basophils % 0.6 Sodium 140 Potassium 3.8 Chloride 106 Carbon Dioxide 25 Anion Gap 9 BUN 4 L D Creatinine 0.3 L D Random Glucose 84 Calcium 8.3 L Phosphorus 3.6 Magnesium 2.1 Urine Color Ltyellow Urine Appearance Slcloudy Urine pH 7.0 D Ur Specific [place] 1.008 Urine Protein Negative Urine Glucose (UA) Negative Urine Ketones Negative Urine Blood Negative Urine Nitrite Negative Urine Bilirubin Negative Urine Urobilinogen Negative Ur Leukocyte Esterase Negative Active Medications Generic Name Dose Route Start Last Admin Trade Name Freq PRN Reason Stop Dose Admin Acetaminophen 650 mg 07/08/17 22:38 07/08/17 23:12 Tylenol - PO 650 mg Q6H PRN Administration FEVER OR PAIN Acetaminophen 650 mg 07/08/17 22:52 Tylenol Oral Solution - PO Q6H PRN FEVER OR PAIN Albuterol/Ipratropium 1 amp 07/08/17 12:00 07/09/17 06:12 Duoneb - NEB 1 amp QIDR ALEKSANDR Administration Albuterol/Ipratropium 1 amp 07/08/17 06:11 Duoneb - NEB QID PRN COUGH Aspirin 81 mg 07/08/17 10:00 07/08/17 09:11 Asa - PO 81 mg DAILY ALEKSANDR Administration Baclofen 20 mg 07/08/17 10:00 07/08/17 21:40 Lioresal - PO 20 mg BID ALEKSANDR Administration Budesonide 1 amp 07/08/17 10:00 07/08/17 21:34 Pulmicort 0.5 Mg Nebulizer - NEB 1 amp BID ALEKSANDR Administration Carbamazepine 280 mg 07/08/17 18:15 07/08/17 20:34 Tegretol Oral Suspension - GT 280 mg BID ALEKSANDR Administration Clonazepam 1 mg 07/08/17 18:15 07/09/17 05:57 Klonopin - PO 1 mg TID ALEKSANDR Administration Clonidine 0.1 mg 07/08/17 22:00 07/08/17 21:40 Catapres - PO 0.1 mg HS ALEKSANDR Administration Enoxaparin Sodium 40 mg 07/08/17 10:00 07/08/17 09:11 Lovenox - SQ 40 mg DAILY ALEKSANDR Administration Sodium Chloride 1,000 mls @ 75 mls/hr 07/08/17 04:45 07/09/17 05:58 Normal Saline - IV Not Given ASDIR ALEKSANDR CEFTRIAXONE 1 G/50 ML PREMIX 50 mls @ 100 mls/hr 07/08/17 13:30 07/08/17 14: 01 Ceftriaxone 1 Gm-D5w Bag IVPB 100 mls/hr DAILY ALEKSANDR Administration Azithromycin 500 mg/ Dextrose 250 mls @ 250 mls/hr 07/08/17 14:00 07/08/17 15 :31 IVPB 250 mls/hr DAILY ALEKSANDR Administration Levetiracetam 1,500 mg 07/08/17 10:00 07/08/17 21:40 Keppra Oral Solution - GT 1,500 mg BID ALEKSANDR Administration Pantoprazole Sodium 40 mg 07/08/17 10:00 07/08/17 09:11 Protonix Packets For Oral Suspension - GT 40 mg DAILY ALEKSANDR Administration Tamsulosin HCl 0.4 mg 07/08/17 08:30 07/08/17 09:11 Flomax - PO 0.4 mg DAILY@0830 [facility] Administration Microbiology 07/07/17 22:38 Blood - Peripheral Venous Blood Culture - Preliminary NO GROWTH OBTAINED AFTER 24 HOURS, INCUBATION TO CONTINUE FOR 4 DAYS. 07/08/17 11:45 Urine For Antigen Detection Legionella Antigen - Final 07/08/17 11:45 Urine For Antigen Detection Streptococcus pneumoniae Antigen (M - Final 07/07/17 21:50 Nasopharyngeal Swab Influenza Types A,B Antigen (DIEGO) - Final 07/07/17 21:50 Nasopharyngeal Swab - Final IMAGES: Chest X-ray (07/07/17): The heart size is within normal limits. No acute infiltrates or pleural effusions are present. Patient is S/P thoracic brown placement for a dextroscoliosis. Abdomen/Pelvis/Chest CT (07/07/17): Marked elevation of the right hemidiaphragm. Mild atelectatic changes/consolidation in the right lung base, posteriorly. Cannot rule out superimposed infiltrates. In the abdomen and pelvis , there is fluid stools in the sigmoid colon with an air-fluid level in the distal sigmoid colon at the rectosigmoid junction. Dislocated right femoral head , superiorly. Otherwise, there is no CT evidence of an acute process in the abdomen pelvis ASSESSMENT/PLAN: Patient is a 26 year old developmentally delayed male from [facility] who was brought in for a week history of cough and fevers. Patient was found to be septic and admitted to med/surg for further monitoring and management. Sepsis Likely secondary to RLL Pneumonia -Presented with fevers, tachycardia, tachypnea, lactic acidosis -Chest X-ray revealed no acute pathology. CT revealed possible superimposed infiltrates with mild atelectatic changes and consolidation in the right lung base. -Flu negative -Respratory virus PCR, urine legionella, and mycoplasma peumoniae negative -Blood cultures NGTD -Continue Duo/Neb 1 amp NEB QID -IV NS @75mls/hr -Continue Ceftriaxone 1gm IV daily and Azithromycin 500mg IV daily day #2 -O2 NC PRN -ID consult ordered -Pulmonology consult appreciated -Tube feeds held -Elevate head and aspiration precautions Cerebral Palsy with Seizure Disorder-Controlled -Continue Keppra 1500mg BID GT -Continue Klonopin 1mg TID -Continue Tegretol 280mg BID -Continue Baclofen 20mg BID GT Asthma- Controlled -Currently in no acute exacerbation -Continue Pulmicort 1 amp BID NEB -Continue DuoNebs QID -Continue to monitor 02 saturation -O2 NC HTN-Controlled -Continue Clonidine 0.1mg PO HS daily -Continue to monitor BP Urinary Incontinence- controlled -Continue Flomax 0.4mg daily F/E/N -On IV NS @75mls/hr -Elevctrolytes wnl -NPO Prophylaxis -High risk due to immobility. Lovenox 40mg SQ daily for DVT -Protonix 40mg GT daily for GI Deconditioning -Patient is immobile and requires total care. Disposition -Full code -Requires IV antibiotics. Will need to remain inpatient for another night at least. Visit type - Emergency Visit Emergency Visit: Yes ED Registration Date: 07/08/17 Care time: The patient presented to the Emergency Department on the above date and was hospitalized for further evaluation of their emergent condition. - New Patient This patient is new to me today: No - Critical Care Critical Care patient: No
[2017-07-09 08:10] LABS: MCH 28.1 pg (25.7-33.7); MCHC 33.7 g/dl (32.0-35.9); MEAN CELL VOLUME 83.4 fl (80-96); MEAN PLT VOLUME 7.2 fl (7.5-11.1); PLATELET COUNT 318 K/MM3 (134-434); RDW 13.8 % (11.9-15.9)
[2017-07-09] MEDS: TAMSULOSIN HCL 0.4 MG CAP.ER.24H (FP) PO SCH (08:31)
[2017-07-09] MEDS ORDERED: PT OWN MED DRAWER 7, Y5N ONE ×2 (09:17→18:53)
[2017-07-09] MEDS: BUDESONIDE 0.5 MG/2 ML INH SUSP VIAL NEB SCH ×2 (09:34→22:45)
[2017-07-09] MEDS: PANTOPRAZOLE SOD 40 MG SUSPENSION PACKET GT SCH (09:38)
[2017-07-09] MEDS: ASPIRIN 81 MG CHEWABLE TABLETS PO SCH (09:38)
[2017-07-09] MEDS: BACLOFEN 10 MG TABLET (FP) PO SCH ×2 (09:38→23:02)
[2017-07-09] MEDS: ENOXAPARIN NA (PORCINE) 40 MG/0.4 ML DISP.SYRIN SQ SCH (09:39)
[2017-07-09] MEDS: levETIRAcetam 500 MG/5 ML ORAL SOLUTION (UNIT-DOSE CUPS) GT SCH ×2 (09:39→23:01)
[2017-07-09] MEDS: carBAMazepine 200 MG/10 ML UNIT-DOSE CUP GT SCH ×2 (09:41→23:04)
--- NOTE | 2017-07-09 13:11 | PN ---
Progress Note (short form) - Note Progress Note: PULMONARY TEMP CURVE DECREASING AWAKE/APPEARS STABLE ANICTERIC/MICROCEPHALIC SCATTERED MINIMAL RHONCHI S1S2 BS+ NO EDEMA LABS/MEDS/NOTES/IMAGES/MICRO REVIEWED (1) Atelectasis of right lung Code(s): J98.11 - ATELECTASIS (2) Asthma Code(s): J45.909 - UNSPECIFIED ASTHMA, UNCOMPLICATED (3) Cerebral palsy Code(s): G80.9 - CEREBRAL PALSY, UNSPECIFIED Qualifiers: Cerebral palsy type: unspecified type Qualified Code(s): G80.9 - Cerebral palsy, unspecified (4) Lactic acidosis Code(s): E87.2 - ACIDOSIS (5) Seizure Code(s): R56.9 - UNSPECIFIED CONVULSIONS (6) Pneumonia Code(s): J18.9 - PNEUMONIA, UNSPECIFIED ORGANISM Assessment/Plan ABX coverage. O2 as needed. Aspiration precautions. Negative urinary antigen. BD TX PRN. R GERMANIA PATRICK
--- NOTE | 2017-07-09 13:30 | PN ---
Progress Note, Physician History of Present Illness: Appears more comfortable Breathing non-labored Temps down afebrile - Current Medication List Current Medications: Active Medications Acetaminophen (Tylenol -) 650 mg PO Q6H PRN PRN Reason: FEVER OR PAIN Last Admin: 07/08/17 23:12 Dose: 650 mg Acetaminophen (Tylenol Oral Solution -) 650 mg PO Q6H PRN PRN Reason: FEVER OR PAIN Albuterol/Ipratropium (Duoneb -) 1 amp NEB QIDR [facility] Last Admin: 07/09/17 11:21 Dose: 1 amp Albuterol/Ipratropium (Duoneb -) 1 amp NEB QID PRN PRN Reason: COUGH Aspirin (Asa -) 81 mg PO DAILY [facility] Last Admin: 07/09/17 09:38 Dose: 81 mg Baclofen (Lioresal -) 20 mg PO BID [facility] Last Admin: 07/09/17 09:38 Dose: 20 mg Budesonide (Pulmicort 0.5 Mg Nebulizer -) 1 amp NEB BID [facility] Last Admin: 07/09/17 09:34 Dose: 1 amp Carbamazepine (Tegretol Oral Suspension -) 280 mg GT BID [facility] Last Admin: 07/09/17 09:41 Dose: 280 mg Clonazepam (Klonopin -) 1 mg PO TID [facility] Last Admin: 07/09/17 05:57 Dose: 1 mg Clonidine (Catapres -) 0.1 mg PO HS [facility] Last Admin: 07/08/17 21:40 Dose: 0.1 mg Enoxaparin Sodium (Lovenox -) 40 mg SQ DAILY [facility] Last Admin: 07/09/17 09:39 Dose: 40 mg Sodium Chloride (Normal Saline -) 1,000 mls @ 75 mls/hr IV ASDIR [facility] Last Admin: 07/09/17 05:58 Dose: Not Given CEFTRIAXONE 1 G/50 ML PREMIX (Ceftriaxone 1 Gm-D5w Bag) 50 mls @ 100 mls/hr IVPB DAILY [facility] Last Admin: 07/08/17 14:01 Dose: 100 mls/hr Azithromycin 500 mg/ Dextrose 250 mls @ 250 mls/hr IVPB DAILY [facility] Last Admin: 07/08/17 15:31 Dose: 250 mls/hr Levetiracetam (Keppra Oral Solution -) 1,500 mg GT BID [facility] Last Admin: 07/09/17 09:39 Dose: 1,500 mg Pantoprazole Sodium (Protonix Packets For Oral Suspension -) 40 mg GT DAILY [facility] Last Admin: 07/09/17 09:38 Dose: 40 mg Tamsulosin HCl (Flomax -) 0.4 mg PO DAILY@0830 [facility] Last Admin: 07/09/17 08:31 Dose: 0.4 mg - Objective Vital Signs: Vital Signs Temperature 98.4 F 07/09/17 06:46 Pulse Rate 90 07/09/17 06:46 Respiratory Rate 18 07/09/17 06:46 Blood Pressure 129/70 07/09/17 06:46 O2 Sat by Pulse Oximetry (%) 92 L 07/08/17 21:00 Constitutional: Yes: No Distress Cardiovascular: Yes: Regular Rate and Rhythm, S1, S2 Respiratory: Yes: Rhonchi Gastrointestinal: Yes: Normal Bowel Sounds, Soft. No: Tenderness Edema: No Labs: CBC, BMP 07/09/17 07:40 07/08/17 08:00 Assessment/Plan Pneumonia Possible sepsis secondary to pneumonia- improved MR Continue empiric ceftriaxone/ zithromax
[2017-07-09] MEDS: AZITHROMYCIN IVPB 500 MG in DEXTROSE 5%-WATER - 250 ML IVPB SCH (13:33)
[2017-07-09] MEDS: CEFTRIAXONE 1 G/50 ML PREMIX 50 ML IVPB SCH ×2 (13:33→15:50)
--- NOTE | 2017-07-09 15:56 | PN ---
Teaching Attending Note Name of Resident: Sara Tinsley ATTENDING PHYSICIAN STATEMENT I saw and evaluated the patient. I reviewed the resident's note and discussed the case with the resident. I agree with the resident's findings and plan as documented. SUBJECTIVE: Patient is comfortable wit no acute distress, continues to spit his sputum. No fever, no shortness of breath. OBJECTIVE: Vital Signs Temperature 98.3 F 07/09/17 14:00 Pulse Rate 101 H 07/09/17 14:00 Respiratory Rate 18 07/09/17 14:00 Blood Pressure 120/67 07/09/17 14:00 O2 Sat by Pulse Oximetry (%) 92 L 07/09/17 09:00 CBCD WBC 7.0 K/mm3 (4.0-10.0) 07/09/17 07:40 RBC 4.70 M/mm3 (4.00-5.60) 07/09/17 07:40 Hgb 13.2 GM/dL (11.7-16.9) 07/09/17 07:40 Hct 39.1 % (35.4-49) 07/09/17 07:40 MCV 83.4 fl (80-96) 07/09/17 07:40 MCHC 33.7 g/dl (32.0-35.9) 07/09/17 07:40 RDW 13.8 % (11.9-15.9) 07/09/17 07:40 Plt Count 318 K/MM3 (134-434) 07/09/17 07:40 MPV 7.2 fl (7.5-11.1) L 07/09/17 07:40 CMP Sodium 140 mmol/L (136-145) 07/08/17 08:00 Potassium 3.8 mmol/L (3.5-5.1) 07/08/17 08:00 Chloride 106 mmol/L (98-107) 07/08/17 08:00 Carbon Dioxide 25 mmol/L (21-32) 07/08/17 08:00 Anion Gap 9 (8-16) 07/08/17 08:00 BUN 4 mg/dL (7-18) L D 07/08/17 08:00 Creatinine 0.3 mg/dL (0.7-1.3) L D 07/08/17 08:00 Creat Clearance w eGFR > 60 (>60) 07/07/17 21:30 Random Glucose 84 mg/dL (74-106) 07/08/17 08:00 Calcium 8.3 mg/dL (8.5-10.1) L 07/08/17 08:00 Total Bilirubin 0.3 mg/dL (0.2-1.0) D 07/07/17 21:30 AST 26 U/L (15-37) 07/07/17 21:30 ALT 27 U/L (12-78) 07/07/17 21:30 Alkaline Phosphatase 100 U/L (45-117) 07/07/17 21:30 Total Protein 7.5 g/dl (6.4-8.2) 07/07/17 21:30 Albumin 3.3 g/dl (3.4-5.0) L 07/07/17 21:30 Current Medications Generic Name Dose Route Start Last Admin Trade Name Freq PRN Reason Stop Dose Admin Acetaminophen 650 mg 07/08/17 22:38 07/08/17 23:12 Tylenol - PO 650 mg Q6H PRN Administration FEVER OR PAIN Acetaminophen 650 mg 07/08/17 22:52 Tylenol Oral Solution - PO Q6H PRN FEVER OR PAIN Albuterol/Ipratropium 1 amp 07/08/17 12:00 07/09/17 11:21 Duoneb - NEB 1 amp QIDR LAEKSANDR Administration Albuterol/Ipratropium 1 amp 07/08/17 06:11 Duoneb - NEB QID PRN COUGH Aspirin 81 mg 07/08/17 10:00 07/09/17 09:38 Asa - PO 81 mg DAILY ALEKSANDR Administration Baclofen 20 mg 07/08/17 10:00 07/09/17 09:38 Lioresal - PO 20 mg BID ALEKSANDR Administration Budesonide 1 amp 07/08/17 10:00 07/09/17 09:34 Pulmicort 0.5 Mg Nebulizer - NEB 1 amp BID ALEKSANDR Administration Carbamazepine 280 mg 07/08/17 18:15 07/09/17 09:41 Tegretol Oral Suspension - GT 280 mg BID ALEKSANDR Administration Clonazepam 1 mg 07/08/17 18:15 07/09/17 05:57 Klonopin - PO 1 mg TID ALEKSANDR Administration Clonidine 0.1 mg 07/08/17 22:00 07/08/17 21:40 Catapres - PO 0.1 mg HS ALEKSANDR Administration Enoxaparin Sodium 40 mg 07/08/17 10:00 07/09/17 09:39 Lovenox - SQ 40 mg DAILY ALEKSANDR Administration Sodium Chloride 1,000 mls @ 75 mls/hr 07/08/17 04:45 07/09/17 05:58 Normal Saline - IV Not Given ASDIR ALEKSANDR CEFTRIAXONE 1 G/50 ML PREMIX 50 mls @ 100 mls/hr 07/08/17 13:30 07/09/17 15: 50 Ceftriaxone 1 Gm-D5w Bag IVPB 100 mls/hr DAILY ALEKSANDR Administration Azithromycin 500 mg/ Dextrose 250 mls @ 250 mls/hr 07/08/17 14:00 07/09/17 13 :33 IVPB Not Given DAILY ALEKSANDR Levetiracetam 1,500 mg 07/08/17 10:00 07/09/17 09:39 Keppra Oral Solution - GT 1,500 mg BID ALEKSANDR Administration Pantoprazole Sodium 40 mg 07/08/17 10:00 07/09/17 09:38 Protonix Packets For Oral Suspension - GT 40 mg DAILY ALEKSANDR Administration Tamsulosin HCl 0.4 mg 07/08/17 08:30 07/09/17 08:31 Flomax - PO 0.4 mg DAILY@0830 ALEKSANDR Administration PE: PER resident's note Lungs: BL rhonchi, with increased secretions. ASSESSMENT AND PLAN: Patient is a 26yo developmentally [place] presented with fever, tachycardia, productive cough, coarse breath sounds. #Acute respiratory distress possible due to aspiration PNA. Patient is at high risk for aspiration given his developmental delay. per ID , patient was placed on rocephin and Zithromax . Continue to elevate head of Bed to 30-45 degrees at all time to avoid aspiration. also ordered RSV still pending the result. # RLL pneumonia on IV Rocephin and Zithromax, switched to po antibiotic to Ceftin after the past dose of Rocephin and Zithromax. As per ID can switch to po antibiotic. Will start his tube feeding and and scopalamine patch since increased salivation. # Sepsis due to RLL PNA, on IV antibiotic, iD on the case # Continue home medications for chronic medical problems #DVT ppx: heparin sc if patient stays stable will discharge him in am back to [facility].
[2017-07-09] MEDS ORDERED: SCOPOLAMINE HYDROBROMIDE 1 PATCH PATCH.TD72 TD SCH (16:15)
[2017-07-09] MEDS ORDERED: CEFUROXIME AXETIL 250 MG/5 ML BOTTLE PO SCH (16:15)
[2017-07-09] MEDS: cloNIDine HCL 0.1 MG TABLET PO SCH (23:00)
[2017-07-09] MEDS: CEFUROXIME AXETIL 250 MG/5 ML BOTTLE PEG SCH (23:00)
[2017-07-10] MEDS: SODIUM CHLORIDE 1,000 ML IV SCH (06:07)
[2017-07-10] MEDS: clonazePAM 2 MG TABLET PO SCH ×3 (06:22→22:42)
[2017-07-10] MEDS: ALBUTEROL SO4 2.5/IPRATROPIUM 0.5 INH SOL 3 ML VIAL.NEB. NEB SCH ×3 (06:34→17:51)
[2017-07-10] MEDS ORDERED: PT OWN MED DRAWER 7, Y5N ONE (09:09)
[2017-07-10] MEDS: BUDESONIDE 0.5 MG/2 ML INH SUSP VIAL NEB SCH ×2 (09:15→23:20)
[2017-07-10] MEDS: ASPIRIN 81 MG CHEWABLE TABLETS PO SCH (09:17)
[2017-07-10] MEDS: ENOXAPARIN NA (PORCINE) 40 MG/0.4 ML DISP.SYRIN SQ SCH (09:17)
[2017-07-10] MEDS: BACLOFEN 10 MG TABLET (FP) PO SCH ×2 (09:17→22:42)
[2017-07-10] MEDS: PANTOPRAZOLE SOD 40 MG SUSPENSION PACKET GT SCH (09:17)
[2017-07-10] MEDS: TAMSULOSIN HCL 0.4 MG CAP.ER.24H (FP) PO SCH (09:17)
[2017-07-10] MEDS: levETIRAcetam 500 MG/5 ML ORAL SOLUTION (UNIT-DOSE CUPS) GT SCH ×2 (09:18→22:43)
[2017-07-10] MEDS: carBAMazepine 200 MG/10 ML UNIT-DOSE CUP GT SCH ×2 (09:19→22:43)
[2017-07-10] MEDS: CEFUROXIME AXETIL 250 MG/5 ML BOTTLE PEG SCH ×2 (09:20→22:46)
--- NOTE | 2017-07-10 10:08 | DS ---
Physical Exam: SUBJECTIVE: Patient seen and examined Lying in bed comfortably with no acute distress. OBJECTIVE: Vital Signs Temperature 98.1 F 07/10/17 06:00 Pulse Rate 81 07/10/17 10:00 Respiratory Rate 18 07/10/17 10:00 Blood Pressure 108/68 07/10/17 10:00 O2 Sat by Pulse Oximetry (%) 97% RA 07/09/17 10:00 PHYSICAL EXAM GENERAL: The patient is awake, alert, and fully oriented, in no acute distress. HEAD: Normal with no signs of trauma. EYES: PERRL, extraocular movements intact, sclera anicteric, conjunctiva clear. ENT: Ears normal, oropharynx clear without exudates, moist mucous membranes. NECK: Trachea midline, full range of motion, supple. LUNGS: Breath sounds equal, clear to auscultation bilaterally, no wheezes, no crackles, no accessory muscle use. HEART: Regular rate and rhythm, S1, S2 without murmur, rub or gallop. ABDOMEN: Soft, nontender, nondistended, normoactive bowel sounds, no guarding, no rebound, no hepatosplenomegaly, no masses. EXTREMITIES: 2+ pulses, warm, well-perfused, no edema. NEUROLOGICAL: Cranial nerves II through XII grossly intact. Normal speech, gait not observed. PSYCH: Normal mood, normal affect. SKIN: Warm, dry, normal turgor, no rashes or lesions noted. LABS Laboratory Results - last 24 hr 07/08/17 11:00 M.pneumoniae IgM Titer <770 CBCD WBC 7.0 K/mm3 (4.0-10.0) 07/09/17 07:40 RBC 4.70 M/mm3 (4.00-5.60) 07/09/17 07:40 Hgb 13.2 GM/dL (11.7-16.9) 07/09/17 07:40 Hct 39.1 % (35.4-49) 07/09/17 07:40 MCV 83.4 fl (80-96) 07/09/17 07:40 MCHC 33.7 g/dl (32.0-35.9) 07/09/17 07:40 RDW 13.8 % (11.9-15.9) 07/09/17 07:40 Plt Count 318 K/MM3 (134-434) 07/09/17 07:40 MPV 7.2 fl (7.5-11.1) L 07/09/17 07:40 CMP Sodium 140 mmol/L (136-145) 07/08/17 08:00 Potassium 3.8 mmol/L (3.5-5.1) 07/08/17 08:00 Chloride 106 mmol/L (98-107) 07/08/17 08:00 Carbon Dioxide 25 mmol/L (21-32) 07/08/17 08:00 Anion Gap 9 (8-16) 07/08/17 08:00 BUN 4 mg/dL (7-18) L D 07/08/17 08:00 Creatinine 0.3 mg/dL (0.7-1.3) L D 07/08/17 08:00 Creat Clearance w eGFR > 60 (>60) 07/07/17 21:30 Random Glucose 84 mg/dL (74-106) 07/08/17 08:00 Calcium 8.3 mg/dL (8.5-10.1) L 07/08/17 08:00 Total Bilirubin 0.3 mg/dL (0.2-1.0) D 07/07/17 21:30 AST 26 U/L (15-37) 07/07/17 21:30 ALT 27 U/L (12-78) 07/07/17 21:30 Alkaline Phosphatase 100 U/L (45-117) 07/07/17 21:30 Total Protein 7.5 g/dl (6.4-8.2) 07/07/17 21:30 Albumin 3.3 g/dl (3.4-5.0) L 07/07/17 21:30 Home Medication List Medication Instructions Recorded Confirmed Type Acetaminophen [Tylenol] 480 mg GT PRN PRN 01/19/15 07/08/17 History Albuterol 2.5/Ipratropium 0.5 1 neb IH QID PRN 01/19/15 07/08/17 History [Duoneb -] Baclofen 20 mg PO BID 01/19/15 07/08/17 History Cholecalciferol (Vitamin D3) 2,000 unit GT DAILY 01/19/15 07/08/17 History [Vitamin D3] Clonidine HCl [Clonidine HCl ER] 0.2 mg PO HS 01/19/15 07/08/17 History Diazepam *Pediatric Rectal* 20 mg RC PRN 01/19/15 07/08/17 History [Diastat *Pediatric Rectal Gel* -] Levetiracetam [Keppra Oral 1,500 mg GT BID 01/19/15 07/08/17 History Solution -] Omeprazole [Prilosec] 20 mg GT DAILY 01/19/15 07/08/17 History Budesonide [Pulmicort 0.5 mg 1 neb NEB BID 02/15/16 07/08/17 History Nebulizer -] Active Medications Generic Name Dose Route Start Last Admin Trade Name Freq PRN Reason Stop Dose Admin Acetaminophen 650 mg 07/08/17 22:38 07/08/17 23:12 Tylenol - PO 650 mg Q6H PRN Administration FEVER OR PAIN Acetaminophen 650 mg 07/08/17 22:52 Tylenol Oral Solution - PO Q6H PRN FEVER OR PAIN Albuterol/Ipratropium 1 amp 07/08/17 12:00 07/10/17 06:34 Duoneb - NEB 1 amp QIDR ALEKSANDR Administration Albuterol/Ipratropium 1 amp 07/08/17 06:11 Duoneb - NEB QID PRN COUGH Aspirin 81 mg 07/08/17 10:00 07/10/17 09:17 Asa - PO 81 mg DAILY ALEKSANDR Administration Baclofen 20 mg 07/08/17 10:00 07/10/17 09:17 Lioresal - PO 20 mg BID ALEKSANDR Administration Budesonide 1 amp 07/08/17 10:00 07/09/17 22:45 Pulmicort 0.5 Mg Nebulizer - NEB 1 amp BID ALEKSANDR Administration Carbamazepine 280 mg 07/08/17 18:15 07/10/17 09:19 Tegretol Oral Suspension - GT 280 mg BID ALEKSANDR Administration Cefuroxime Axetil 500 mg 07/09/17 22:00 07/10/17 09:20 Ceftin Oral Suspension - PEG 500 mg BID ALEKSANDR Administration Clonazepam 1 mg 07/08/17 18:15 07/10/17 06:22 Klonopin - PO 1 mg TID ALEKSANDR Administration Clonidine 0.1 mg 07/08/17 22:00 07/09/17 23:00 Catapres - PO 0.1 mg HS ALEKSANDR Administration Enoxaparin Sodium 40 mg 07/08/17 10:00 07/10/17 09:17 Lovenox - SQ 40 mg DAILY ALEKSANDR Administration Sodium Chloride 1,000 mls @ 75 mls/hr 07/08/17 04:45 07/10/17 06:07 Normal Saline - IV Not Given ASDIR ALEKSANDR Levetiracetam 1,500 mg 07/08/17 10:00 07/10/17 09:18 Keppra Oral Solution - GT 1,500 mg BID ALEKSANDR Administration Pantoprazole Sodium 40 mg 07/08/17 10:00 07/10/17 09:17 Protonix Packets For Oral Suspension - GT 40 mg DAILY ALEKSANDR Administration Scopolamine HBr 1 patch 07/09/17 16:15 07/09/17 18:23 Transderm-Scop - TD 1 patch Q72H ALEKSANDR Administration Tamsulosin HCl 0.4 mg 07/08/17 08:30 07/10/17 09:17 Flomax - PO 0.4 mg DAILY@0830 ALEKSANDR Administration HOSPITAL COURSE: Date of Admission:07/08/17 Date of Discharge: 07/10/17 Patient is a 26yo developmentally delayed man from [facility] presented with fever, tachycardia, productive cough, coarse breath sounds. #Acute respiratory distress possible due to aspiration PNA. Patient is at high risk for aspiration given his developmental delay. per ID , patient was placed on rocephin and Zithromax . Continue to elevate head of Bed to 30-45 degrees at all time to avoid aspiration. also ordered RSV still pending the result. # RLL pneumonia on IV Rocephin and Zithromax, switched to po antibiotic to Ceftin after the past dose of Rocephin and Zithromax. As per ID can switch to po antibiotic. Will start his tube feeding and and scopalamine patch since increased salivation. # Sepsis due to RLL PNA, on IV antibiotic, iD on the case # Continue home medications for chronic medical problems #DVT ppx: heparin sc if patient stays stable will discharge him in am back to [facility]. Discharge Summary Reason For Visit: PNEUMONIA Current Active Problems Atelectasis of right lung (Acute) Pneumonia (Acute) Pneumonia (Acute) Condition: Guarded - Instructions - Home Medications Comprehensive Discharge Medication List: Ambulatory Orders Acetaminophen [Tylenol] 480 mg GT PRN PRN 01/19/15 Albuterol 2.5/Ipratropium 0.5 [Duoneb -] 1 neb IH QID PRN 01/19/15 Baclofen 20 mg PO BID 01/19/15 Cholecalciferol (Vitamin D3) [Vitamin D3] 2,000 unit GT DAILY 01/19/15 Clonidine HCl [Clonidine HCl ER] 0.2 mg PO HS 01/19/15 Diazepam *Pediatric Rectal* [Diastat *Pediatric Rectal Gel* -] 20 mg RC PRN Levetiracetam [Keppra Oral Solution -] 1,500 mg GT BID 01/19/15 Omeprazole [Prilosec] 20 mg GT DAILY 01/19/15 Budesonide [Pulmicort 0.5 mg Nebulizer -] 1 neb NEB BID 02/15/16 Tamsulosin HCl [Flomax -] 0.4 mg PO DAILY@0830 #30 cap.er.24h 02/25/16 Albuterol 2.5/Ipratropium 0.5 [Duoneb -] 1 amp NEB QIDR amp 01/04/17 Aspirin [ASA -] 81 mg PO DAILY tab.chew 01/04/17 Clonidine HCl [Catapres -] 0.1 mg PO HS tablet 01/04/17 Enoxaparin [Lovenox -] 40 mg SQ DAILY #30 syringe 01/04/17 Levetiracetam Injection [Keppra Injection -] 1,500 mg IVPB BID ml 01/04/17 Prednisone [Deltasone -] See Taper PO DAILY #14 tablet 01/04/17
--- NOTE | 2017-07-10 11:35 | PN ---
Progress Note (short form) - Note Progress Note: PULMONARY No fevers recorded. Saturating well on room air. Last Vital Signs Temp Pulse Resp BP Pulse Ox 98.1 F 87 18 80/60 94 L 07/10/17 06:00 07/10/17 06:00 07/10/17 06:00 07/10/17 06:00 07/09/17 21:00 Gen: NAD at rest Heart: RRR Lung: decreased breath sounds at the bases Abd: soft, nontender Ext: contracted, no edema CBC, BMP 07/09/17 07:40 07/08/17 08:00 Active Medications Acetaminophen (Tylenol -) 650 mg PO Q6H PRN PRN Reason: FEVER OR PAIN Last Admin: 07/08/17 23:12 Dose: 650 mg Acetaminophen (Tylenol Oral Solution -) 650 mg PO Q6H PRN PRN Reason: FEVER OR PAIN Albuterol/Ipratropium (Duoneb -) 1 amp NEB QIDR [facility] Last Admin: 07/10/17 11:15 Dose: 1 amp Albuterol/Ipratropium (Duoneb -) 1 amp NEB QID PRN PRN Reason: COUGH Aspirin (Asa -) 81 mg PO DAILY [facility] Last Admin: 07/10/17 09:17 Dose: 81 mg Baclofen (Lioresal -) 20 mg PO BID [facility] Last Admin: 07/10/17 09:17 Dose: 20 mg Budesonide (Pulmicort 0.5 Mg Nebulizer -) 1 amp NEB BID [facility] Last Admin: 07/10/17 09:15 Dose: 1 amp Carbamazepine (Tegretol Oral Suspension -) 280 mg GT BID [facility] Last Admin: 07/10/17 09:19 Dose: 280 mg Cefuroxime Axetil (Ceftin Oral Suspension -) 500 mg PEG BID [facility] Last Admin: 07/10/17 09:20 Dose: 500 mg Clonazepam (Klonopin -) 1 mg PO TID [facility] Last Admin: 07/10/17 06:22 Dose: 1 mg Clonidine (Catapres -) 0.1 mg PO HS [facility] Last Admin: 07/09/17 23:00 Dose: 0.1 mg Enoxaparin Sodium (Lovenox -) 40 mg SQ DAILY [facility] Last Admin: 07/10/17 09:17 Dose: 40 mg Sodium Chloride (Normal Saline -) 1,000 mls @ 75 mls/hr IV ASDIR [facility] Last Admin: 07/10/17 06:07 Dose: Not Given Levetiracetam (Keppra Oral Solution -) 1,500 mg GT BID [facility] Last Admin: 07/10/17 09:18 Dose: 1,500 mg Pantoprazole Sodium (Protonix Packets For Oral Suspension -) 40 mg GT DAILY [facility] Last Admin: 07/10/17 09:17 Dose: 40 mg Scopolamine HBr (Transderm-Scop -) 1 patch TD Q72H [facility] Last Admin: 07/09/17 18:23 Dose: 1 patch Tamsulosin HCl (Flomax -) 0.4 mg PO DAILY@0830 [facility] Last Admin: 07/10/17 09:17 Dose: 0.4 mg A/P Pneumonia Seizure Disorder Mental Retardation Asthma Dysphagia - continue antibiotics - aspiration precautions - DVT prophylaxis - d/c planning
--- NOTE | 2017-07-10 18:21 | PN ---
Progress Note (short form) - Note Progress Note: Patient is saturating 97% on RA. No fever or chills, no shortness of breath. Vital Signs Temperature 98.1 F 07/10/17 17:06 Pulse Rate 104 H 07/10/17 17:06 Respiratory Rate 20 07/10/17 17:06 Blood Pressure 113/65 07/10/17 17:06 O2 Sat by Pulse Oximetry (%) 97 07/10/17 09:00 GENERAL: mentally delayed patient , in no acute distress. HEAD: AT, EYES: extraocular movements intact, sclera anicteric, conjunctiva clear. ENT: Ears normal, oropharynx clear without exudates, moist mucous membranes. NECK: Trachea midline, full range of motion, supple. LUNGS: GAEBL , no wheezes, no crackles, no accessory muscle use. HEART: Regular rate and rhythm, S1, S2 without murmur, rub or gallop. ABDOMEN: Soft, nontender, nondistended, normoactive bowel sounds, no guarding, no rebound, no hepatosplenomegaly, no masses. EXTREMITIES: 2+ pulses, warm, well-perfused, no edema. NEUROLOGICAL: Cranial nerves II through XII grossly intact. PSYCH: mentally delayed unable to access SKIN: Warm, dry, normal turgor, no rashes or lesions noted. CBCD WBC 7.0 K/mm3 (4.0-10.0) 07/09/17 07:40 RBC 4.70 M/mm3 (4.00-5.60) 07/09/17 07:40 Hgb 13.2 GM/dL (11.7-16.9) 07/09/17 07:40 Hct 39.1 % (35.4-49) 07/09/17 07:40 MCV 83.4 fl (80-96) 07/09/17 07:40 MCHC 33.7 g/dl (32.0-35.9) 07/09/17 07:40 RDW 13.8 % (11.9-15.9) 07/09/17 07:40 Plt Count 318 K/MM3 (134-434) 07/09/17 07:40 MPV 7.2 fl (7.5-11.1) L 07/09/17 07:40 CMP Sodium 140 mmol/L (136-145) 07/08/17 08:00 Potassium 3.8 mmol/L (3.5-5.1) 07/08/17 08:00 Chloride 106 mmol/L (98-107) 07/08/17 08:00 Carbon Dioxide 25 mmol/L (21-32) 07/08/17 08:00 Anion Gap 9 (8-16) 07/08/17 08:00 BUN 4 mg/dL (7-18) L D 07/08/17 08:00 Creatinine 0.3 mg/dL (0.7-1.3) L D 07/08/17 08:00 Creat Clearance w eGFR > 60 (>60) 07/07/17 21:30 Random Glucose 84 mg/dL (74-106) 07/08/17 08:00 Calcium 8.3 mg/dL (8.5-10.1) L 07/08/17 08:00 Total Bilirubin 0.3 mg/dL (0.2-1.0) D 07/07/17 21:30 AST 26 U/L (15-37) 07/07/17 21:30 ALT 27 U/L (12-78) 07/07/17 21:30 Alkaline Phosphatase 100 U/L (45-117) 07/07/17 21:30 Total Protein 7.5 g/dl (6.4-8.2) 07/07/17 21:30 Albumin 3.3 g/dl (3.4-5.0) L 07/07/17 21:30 Home Medication List Medication Instructions Recorded Confirmed Type Acetaminophen [Tylenol] 480 mg GT PRN PRN 01/19/15 07/08/17 History Albuterol 2.5/Ipratropium 0.5 1 neb IH QID PRN 01/19/15 07/08/17 History [Duoneb -] Baclofen 20 mg PO BID 01/19/15 07/08/17 History Cholecalciferol (Vitamin D3) 2,000 unit GT DAILY 01/19/15 07/08/17 History [Vitamin D3] Clonidine HCl [Clonidine HCl ER] 0.2 mg PO HS 01/19/15 07/08/17 History Diazepam *Pediatric Rectal* 20 mg RC PRN 01/19/15 07/08/17 History [Diastat *Pediatric Rectal Gel* -] Levetiracetam [Keppra Oral 1,500 mg GT BID 01/19/15 07/08/17 History Solution -] Omeprazole [Prilosec] 20 mg GT DAILY 01/19/15 07/08/17 History Budesonide [Pulmicort 0.5 mg 1 neb NEB BID 02/15/16 07/08/17 History Nebulizer -] Active Medications Generic Name Dose Route Start Last Admin Trade Name Freq PRN Reason Stop Dose Admin Acetaminophen 650 mg 07/08/17 22:38 07/08/17 23:12 Tylenol - PO 650 mg Q6H PRN Administration FEVER OR PAIN Acetaminophen 650 mg 07/08/17 22:52 Tylenol Oral Solution - PO Q6H PRN FEVER OR PAIN Albuterol/Ipratropium 1 amp 07/08/17 12:00 07/10/17 17:51 Duoneb - NEB 1 amp QIDR ALEKSANDR Administration Albuterol/Ipratropium 1 amp 07/08/17 06:11 Duoneb - NEB QID PRN COUGH Aspirin 81 mg 07/08/17 10:00 07/10/17 09:17 Asa - PO 81 mg DAILY ALEKSANDR Administration Baclofen 20 mg 07/08/17 10:00 07/10/17 09:17 Lioresal - PO 20 mg BID ALEKSANDR Administration Budesonide 1 amp 07/08/17 10:00 07/10/17 09:15 Pulmicort 0.5 Mg Nebulizer - NEB 1 amp BID ALEKSANDR Administration Carbamazepine 280 mg 07/08/17 18:15 07/10/17 09:19 Tegretol Oral Suspension - GT 280 mg BID ALEKSANDR Administration Cefuroxime Axetil 500 mg 07/09/17 22:00 07/10/17 09:20 Ceftin Oral Suspension - PEG 500 mg BID ALEKSANDR Administration Clonazepam 1 mg 07/08/17 18:15 07/10/17 13:35 Klonopin - PO 1 mg TID ALEKSANDR Administration Clonidine 0.1 mg 07/08/17 22:00 07/09/17 23:00 Catapres - PO 0.1 mg HS ALEKSANDR Administration Enoxaparin Sodium 40 mg 07/08/17 10:00 07/10/17 09:17 Lovenox - SQ 40 mg DAILY ALEKSANDR Administration Sodium Chloride 1,000 mls @ 75 mls/hr 07/08/17 04:45 07/10/17 06:07 Normal Saline - IV Not Given ASDIR ALEKSANDR Levetiracetam 1,500 mg 07/08/17 10:00 07/10/17 09:18 Keppra Oral Solution - GT 1,500 mg BID ALEKSANDR Administration Pantoprazole Sodium 40 mg 07/08/17 10:00 07/10/17 09:17 Protonix Packets For Oral Suspension - GT 40 mg DAILY ALEKSANDR Administration Scopolamine HBr 1 patch 07/09/17 16:15 07/09/17 18:23 Transderm-Scop - TD 1 patch Q72H ALEKSANDR Administration Tamsulosin HCl 0.4 mg 07/08/17 08:30 07/10/17 09:17 Flomax - PO 0.4 mg DAILY@0830 ALEKSANDR Administration A/P: Patient is a 26yo developmentally delayed man [facility] presented with fever, tachycardia, productive cough, coarse breath sounds. #Acute respiratory distress improved keep the head of the bed to 30-45 degrees at all time to avoid aspiration. also ordered RSV still pending the result. # RLL pneumonia on Ceftin now s/p Rocephin and Zithromax. On tube feeding now , doing well on scopalamine patch since increased salivation. # Sepsis due to RLL PNA, s/p IV antibiotic. As per iD can be discharged if stable # Continue home medications for chronic medical problems #DVT ppx: heparin sc Tried to discharge the patient back to [facility] [place] [facility], As per [facility] VICTOR[facility] in [facility] , will not accept any patient over the weekend. Visit type - Emergency Visit Emergency Visit: Yes ED Registration Date: 07/08/17 Care time: The patient presented to the Emergency Department on the above date and was hospitalized for further evaluation of their emergent condition. - New Patient This patient is new to me today: No - Critical Care Critical Care patient: No
[2017-07-10] MEDS: cloNIDine HCL 0.1 MG TABLET PO SCH (22:00)
[2017-07-11] MEDS: ALBUTEROL SO4 2.5/IPRATROPIUM 0.5 INH SOL 3 ML VIAL.NEB. NEB SCH ×5 (00:06→23:08)
[2017-07-11] MEDS: clonazePAM 2 MG TABLET PO SCH ×3 (06:42→22:26)
[2017-07-11] MEDS ORDERED: PT OWN MED DRAWER 7, Y5N ONE ×3 (09:03→19:36)
[2017-07-11] MEDS: TAMSULOSIN HCL 0.4 MG CAP.ER.24H (FP) PO SCH (09:19)
[2017-07-11] MEDS: ASPIRIN 81 MG CHEWABLE TABLETS PO SCH (09:19)
[2017-07-11] MEDS: BACLOFEN 10 MG TABLET (FP) PO SCH ×2 (09:19→22:27)
[2017-07-11] MEDS: ENOXAPARIN NA (PORCINE) 40 MG/0.4 ML DISP.SYRIN SQ SCH (09:20)
[2017-07-11] MEDS: PANTOPRAZOLE SOD 40 MG SUSPENSION PACKET GT SCH (09:20)
[2017-07-11] MEDS: levETIRAcetam 500 MG/5 ML ORAL SOLUTION (UNIT-DOSE CUPS) GT SCH ×2 (09:20→22:27)
[2017-07-11] MEDS: carBAMazepine 200 MG/10 ML UNIT-DOSE CUP GT SCH ×2 (09:21→22:27)
[2017-07-11] MEDS: CEFUROXIME AXETIL 250 MG/5 ML BOTTLE PEG SCH ×2 (09:22→22:28)
--- NOTE | 2017-07-11 10:37 | PN ---
Progress Note (short form) - Note Progress Note: Patient is comfortable with no ACUTE DISTRESS. No fever or chills. Vital Signs Temperature 100.1 F H 07/11/17 06:00 Pulse Rate 99 H 07/11/17 06:00 Respiratory Rate 20 07/11/17 06:00 Blood Pressure 100/64 07/11/17 06:00 O2 Sat by Pulse Oximetry (%) 97 07/10/17 21:00 GENERAL: mentally delayed patient , in no acute distress. HEAD: AT EYES: extraocular movements intact, sclera anicteric, conjunctiva clear. ENT: Ears normal, oropharynx clear without exudates, moist mucous membranes. NECK: Trachea midline, full range of motion, supple. LUNGS: GAEBL , no wheezes, no crackles, no accessory muscle use. HEART: Regular rate and rhythm, S1, S2 without murmur, rub or gallop. ABDOMEN: Soft, nontender, nondistended, normoactive bowel sounds, no guarding, no rebound, no hepatosplenomegaly, no masses. EXTREMITIES: 2+ pulses, warm, well-perfused, no edema. NEUROLOGICAL: Cranial nerves II through XII grossly intact. PSYCH: mentally delayed unable to access SKIN: Warm, dry, normal turgor, no rashes or lesions noted. CBCD WBC 7.0 K/mm3 (4.0-10.0) 07/09/17 07:40 RBC 4.70 M/mm3 (4.00-5.60) 07/09/17 07:40 Hgb 13.2 GM/dL (11.7-16.9) 07/09/17 07:40 Hct 39.1 % (35.4-49) 07/09/17 07:40 MCV 83.4 fl (80-96) 07/09/17 07:40 MCHC 33.7 g/dl (32.0-35.9) 07/09/17 07:40 RDW 13.8 % (11.9-15.9) 07/09/17 07:40 Plt Count 318 K/MM3 (134-434) 07/09/17 07:40 MPV 7.2 fl (7.5-11.1) L 07/09/17 07:40 CMP Sodium 140 mmol/L (136-145) 07/08/17 08:00 Potassium 3.8 mmol/L (3.5-5.1) 07/08/17 08:00 Chloride 106 mmol/L (98-107) 07/08/17 08:00 Carbon Dioxide 25 mmol/L (21-32) 07/08/17 08:00 Anion Gap 9 (8-16) 07/08/17 08:00 BUN 4 mg/dL (7-18) L D 07/08/17 08:00 Creatinine 0.3 mg/dL (0.7-1.3) L D 07/08/17 08:00 Creat Clearance w eGFR > 60 (>60) 07/07/17 21:30 Random Glucose 84 mg/dL (74-106) 07/08/17 08:00 Calcium 8.3 mg/dL (8.5-10.1) L 07/08/17 08:00 Total Bilirubin 0.3 mg/dL (0.2-1.0) D 07/07/17 21:30 AST 26 U/L (15-37) 07/07/17 21:30 ALT 27 U/L (12-78) 07/07/17 21:30 Alkaline Phosphatase 100 U/L (45-117) 07/07/17 21:30 Total Protein 7.5 g/dl (6.4-8.2) 07/07/17 21:30 Albumin 3.3 g/dl (3.4-5.0) L 07/07/17 21:30 Current Medications Generic Name Dose Route Start Last Admin Trade Name Freq PRN Reason Stop Dose Admin Acetaminophen 650 mg 07/08/17 22:38 07/08/17 23:12 Tylenol - PO 650 mg Q6H PRN Administration FEVER OR PAIN Acetaminophen 650 mg 07/08/17 22:52 Tylenol Oral Solution - PO Q6H PRN FEVER OR PAIN Albuterol/Ipratropium 1 amp 07/08/17 12:00 07/11/17 05:50 Duoneb - NEB 1 amp QIDR ALEKSANDR Administration Albuterol/Ipratropium 1 amp 07/08/17 06:11 Duoneb - NEB QID PRN COUGH Aspirin 81 mg 07/08/17 10:00 07/11/17 09:19 Asa - PO 81 mg DAILY ALEKSANDR Administration Baclofen 20 mg 07/08/17 10:00 07/11/17 09:19 Lioresal - PO 20 mg BID ALEKSANDR Administration Budesonide 1 amp 07/08/17 10:00 07/10/17 23:20 Pulmicort 0.5 Mg Nebulizer - NEB 1 amp BID ALEKSANDR Administration Carbamazepine 280 mg 07/08/17 18:15 07/11/17 09:21 Tegretol Oral Suspension - GT 280 mg BID ALEKSANDR Administration Cefuroxime Axetil 500 mg 07/09/17 22:00 07/11/17 09:22 Ceftin Oral Suspension - PEG 500 mg BID ALEKSANDR Administration Clonazepam 1 mg 07/08/17 18:15 07/11/17 06:42 Klonopin - PO 1 mg TID ALEKSANDR Administration Clonidine 0.1 mg 07/08/17 22:00 07/10/17 22:00 Catapres - PO 0.1 mg HS ALEKSANDR Administration Enoxaparin Sodium 40 mg 07/08/17 10:00 07/11/17 09:20 Lovenox - SQ 40 mg DAILY ALEKSANDR Administration Levetiracetam 1,500 mg 07/08/17 10:00 07/11/17 09:20 Keppra Oral Solution - GT 1,500 mg BID ALEKSANDR Administration Pantoprazole Sodium 40 mg 07/08/17 10:00 07/11/17 09:20 Protonix Packets For Oral Suspension - GT 40 mg DAILY ALEKSANDR Administration Scopolamine HBr 1 patch 07/09/17 16:15 07/09/17 18:23 Transderm-Scop - TD 1 patch Q72H ALEKSANDR Administration Tamsulosin HCl 0.4 mg 07/08/17 08:30 07/11/17 09:19 Flomax - PO 0.4 mg DAILY@0830 ALEKSANDR Administration Home Medication List Medication Instructions Recorded Confirmed Type Acetaminophen [Tylenol] 480 mg GT PRN PRN 01/19/15 07/08/17 History Albuterol 2.5/Ipratropium 0.5 1 neb IH QID PRN 01/19/15 07/08/17 History [Duoneb -] Baclofen 20 mg PO BID 01/19/15 07/08/17 History Cholecalciferol (Vitamin D3) 2,000 unit GT DAILY 01/19/15 07/08/17 History [Vitamin D3] Clonidine HCl [Clonidine HCl ER] 0.2 mg PO HS 01/19/15 07/08/17 History Diazepam *Pediatric Rectal* 20 mg RC PRN 01/19/15 07/08/17 History [Diastat *Pediatric Rectal Gel* -] Levetiracetam [Keppra Oral 1,500 mg GT BID 01/19/15 07/08/17 History Solution -] Omeprazole [Prilosec] 20 mg GT DAILY 01/19/15 07/08/17 History Budesonide [Pulmicort 0.5 mg 1 neb NEB BID 02/15/16 07/08/17 History Nebulizer -] Active Medications Generic Name Dose Route Start Last Admin Trade Name Freq PRN Reason Stop Dose Admin Acetaminophen 650 mg 07/08/17 22:38 07/08/17 23:12 Tylenol - PO 650 mg Q6H PRN Administration FEVER OR PAIN Acetaminophen 650 mg 07/08/17 22:52 Tylenol Oral Solution - PO Q6H PRN FEVER OR PAIN Albuterol/Ipratropium 1 amp 07/08/17 12:00 07/11/17 05:50 Duoneb - NEB 1 amp QIDR ALEKSANDR Administration Albuterol/Ipratropium 1 amp 07/08/17 06:11 Duoneb - NEB QID PRN COUGH Aspirin 81 mg 07/08/17 10:00 07/11/17 09:19 Asa - PO 81 mg DAILY ALEKSANDR Administration Baclofen 20 mg 07/08/17 10:00 07/11/17 09:19 Lioresal - PO 20 mg BID ALEKSANDR Administration Budesonide 1 amp 07/08/17 10:00 07/10/17 23:20 Pulmicort 0.5 Mg Nebulizer - NEB 1 amp BID ALEKSANDR Administration Carbamazepine 280 mg 07/08/17 18:15 07/11/17 09:21 Tegretol Oral Suspension - GT 280 mg BID ALEKSANDR Administration Cefuroxime Axetil 500 mg 07/09/17 22:00 07/11/17 09:22 Ceftin Oral Suspension - PEG 500 mg BID ALEKSANDR Administration Clonazepam 1 mg 07/08/17 18:15 07/11/17 06:42 Klonopin - PO 1 mg TID ALEKSANDR Administration Clonidine 0.1 mg 07/08/17 22:00 07/10/17 22:00 Catapres - PO 0.1 mg HS ALEKSANDR Administration Enoxaparin Sodium 40 mg 07/08/17 10:00 07/11/17 09:20 Lovenox - SQ 40 mg DAILY ALEKSANDR Administration Levetiracetam 1,500 mg 07/08/17 10:00 07/11/17 09:20 Keppra Oral Solution - GT 1,500 mg BID ALEKSANDR Administration Pantoprazole Sodium 40 mg 07/08/17 10:00 07/11/17 09:20 Protonix Packets For Oral Suspension - GT 40 mg DAILY ALEKSANDR Administration Scopolamine HBr 1 patch 07/09/17 16:15 07/09/17 18:23 Transderm-Scop - TD 1 patch [id number] ALEKSANDR Administration Tamsulosin HCl 0.4 mg 07/08/17 08:30 07/11/17 09:19 Flomax - PO 0.4 mg DAILY@0830 ALEKSANDR Administration A/P: Patient is a 26yo developmentally delayed man from [facility] presented with fever, tachycardia, productive cough, coarse breath sounds. #Acute respiratory distress improved keep the head of the bed to 30-45 degrees at all time to avoid aspiration. also ordered RSV still pending the result. # RLL pneumonia on Ceftin continue s/p Rocephin and Zithromax. On tube feeding continue , doing well on scopalamine patch since patient has increased salivation but is improving post scopalamine patch. # Sepsis due to RLL PNA,on oral Ceftin now s/p IV antibiotic. As per iD can be discharged if stable # Continue home medications for chronic medical problems #DVT ppx: heparin sc will discharge the patient back t [facility] home in am. Visit type - Emergency Visit Emergency Visit: Yes ED Registration Date: 07/08/17 Care time: The patient presented to the Emergency Department on the above date and was hospitalized for further evaluation of their emergent condition. - New Patient This patient is new to me today: No - Critical Care Critical Care patient: No
[2017-07-11] MEDS: BUDESONIDE 0.5 MG/2 ML INH SUSP VIAL NEB SCH ×2 (11:00→22:07)
--- NOTE | 2017-07-11 13:14 | PN ---
Progress Note (short form) - Note Progress Note: PULMONARY No fevers recorded. More tachypneic today. Last Vital Signs Temp Pulse Resp BP Pulse Ox 98.9 F 88 20 139/71 95 07/11/17 10:00 07/11/17 10:00 07/11/17 10:00 07/11/17 10:00 07/11/17 09:00 Gen: mildly tachypneic at rest Heart: RRR Lung: scattered rhonchi Abd: soft, nontender Ext: contracted, no edema CBC, BMP 07/09/17 07:40 07/08/17 08:00 Active Medications Acetaminophen (Tylenol -) 650 mg PO Q6H PRN PRN Reason: FEVER OR PAIN Last Admin: 07/08/17 23:12 Dose: 650 mg Acetaminophen (Tylenol Oral Solution -) 650 mg PO Q6H PRN PRN Reason: FEVER OR PAIN Albuterol/Ipratropium (Duoneb -) 1 amp NEB QIDR [facility] Last Admin: 07/11/17 12:00 Dose: 1 amp Albuterol/Ipratropium (Duoneb -) 1 amp NEB QID PRN PRN Reason: COUGH Aspirin (Asa -) 81 mg PO DAILY [facility] Last Admin: 07/11/17 09:19 Dose: 81 mg Baclofen (Lioresal -) 20 mg PO BID [facility] Last Admin: 07/11/17 09:19 Dose: 20 mg Budesonide (Pulmicort 0.5 Mg Nebulizer -) 1 amp NEB BID [facility] Last Admin: 07/11/17 12:00 Dose: 1 amp Carbamazepine (Tegretol Oral Suspension -) 280 mg GT BID [facility] Last Admin: 07/11/17 09:21 Dose: 280 mg Cefuroxime Axetil (Ceftin Oral Suspension -) 500 mg PEG BID [facility] Last Admin: 07/11/17 09:22 Dose: 500 mg Clonazepam (Klonopin -) 1 mg PO TID [facility] Last Admin: 07/11/17 06:42 Dose: 1 mg Clonidine (Catapres -) 0.1 mg PO HS [facility] Last Admin: 07/10/17 22:00 Dose: 0.1 mg Enoxaparin Sodium (Lovenox -) 40 mg SQ DAILY [facility] Last Admin: 07/11/17 09:20 Dose: 40 mg Levetiracetam (Keppra Oral Solution -) 1,500 mg GT BID [facility] Last Admin: 07/11/17 09:20 Dose: 1,500 mg Pantoprazole Sodium (Protonix Packets For Oral Suspension -) 40 mg GT DAILY [facility] Last Admin: 07/11/17 09:20 Dose: 40 mg Scopolamine HBr (Transderm-Scop -) 1 patch TD Q72H [facility] Last Admin: 07/09/17 18:23 Dose: 1 patch Tamsulosin HCl (Flomax -) 0.4 mg PO DAILY@0830 [facility] Last Admin: 07/11/17 09:19 Dose: 0.4 mg A/P Pneumonia Seizure Disorder Mental Retardation Asthma Dysphagia - continue antibiotics - inhaled bronchodilators - aspiration precautions - DVT prophylaxis
[2017-07-11] MEDS: cloNIDine HCL 0.1 MG TABLET PO SCH (22:26)
[2017-07-12] MEDS: clonazePAM 2 MG TABLET PO SCH ×2 (06:23→13:30)
[2017-07-12] MEDS: ALBUTEROL SO4 2.5/IPRATROPIUM 0.5 INH SOL 3 ML VIAL.NEB. NEB SCH ×2 (06:49→11:27)
[2017-07-12] MEDS ORDERED: PT OWN MED DRAWER 7, Y5N ONE ×2 (09:20→11:18)
[2017-07-12] MEDS: BACLOFEN 10 MG TABLET (FP) PO SCH (09:24)
[2017-07-12] MEDS: ASPIRIN 81 MG CHEWABLE TABLETS PO SCH (09:24)
[2017-07-12] MEDS: TAMSULOSIN HCL 0.4 MG CAP.ER.24H (FP) PO SCH (09:24)
[2017-07-12] MEDS: levETIRAcetam 500 MG/5 ML ORAL SOLUTION (UNIT-DOSE CUPS) GT SCH (09:25)
[2017-07-12] MEDS: PANTOPRAZOLE SOD 40 MG SUSPENSION PACKET GT SCH (09:25)
[2017-07-12] MEDS: carBAMazepine 200 MG/10 ML UNIT-DOSE CUP GT SCH (09:26)
[2017-07-12] MEDS: ENOXAPARIN NA (PORCINE) 40 MG/0.4 ML DISP.SYRIN SQ SCH (09:27)
[2017-07-12] MEDS: CEFUROXIME AXETIL 250 MG/5 ML BOTTLE PEG SCH (09:29)
--- NOTE | 2017-07-12 10:01 | DS ---
Physical Exam: SUBJECTIVE: Patient seen and examined. Pt looks better today, smiling. No fevers or chills. No events overnight. OBJECTIVE: Vital Signs Period Temp Pulse Resp BP Sys/Don Pulse Ox Last 24 Hr 97.8 F-98.9 F 86-107 18-20 112-139/68-83 PHYSICAL EXAM GENERAL: The patient is awake, alert, in no acute distress, MR, nonverbal. HEAD: No signs of trauma. EYES: Extraocular movements intact, sclera anicteric, conjunctiva clear. ENT: Moist mucous membranes. NECK: Trachea midline, supple. LUNGS: Breath sounds equal, clear to anterior auscultation bilaterally. HEART: Regular rate and rhythm, S1, S2 without murmur, rub or gallop. ABDOMEN: Soft, nontender, nondistended, normoactive bowel sounds, slight erythema around the G-Tube noted. EXTREMITIES: Warm, well-perfused, no edema. SKIN: Warm, dry, normal turgor, no rashes or lesions noted. LABS HOSPITAL COURSE: Date of Admission:07/08/17 Date of Discharge: 07/12/17 26yo M with PMH of developmental delay from [facility] presented with fever, tachycardia, productive cough, and coarse breath sounds, found to be septic likely secondary to Right lower lobe pneumonia. Pt received Rocephin and Zithromax for RLL pneumonia. Tube feeding resumed. Pt switched to po antibiotics, Ceftin BID x 5 days. 07/07/17 CXR -> no acute pathology 07/07/17 CT Chest/Ab/Pelvis -> cannot rule out superimposed infiltrates. Anteriorly dislocated Right femoral head also noted. 07/07/17 Influenza A&B (-) 07/07/17 blood cultures (-) x 96 hrs 07/08/17 urine culture (-) 07/08/17 Legionella and Strep pneumoniae (-) 07/08/17 repeat blood culture (-) x 72 hrs 07/08/17 RSV (PCR) pending Baseline mentation and functioning resumed. Pt medically stable to return to [facility]. Minutes to complete discharge: 35 Discharge Summary Reason For Visit: PNEUMONIA Current Active Problems Atelectasis of right lung (Acute) Lactic acidosis (Acute) Pneumonia (Acute) Pneumonia (Acute) Sepsis (Acute) Tachycardia (Acute) Tachypnea (Acute) Condition: Guarded - Instructions Diet, Activity, Other Instructions: You were treated for sepsis related to pneumonia. Please continue to take your medications as prescribed. Take Ceftin twice a day , including this evening's dose and through tomorrow, for a total of 3 more doses. Please see your Primary Care Practitioner (Brittany Bell) within 1 week of leaving the hospital. Please return to the hospital immediately if you experience persistent or increased difficulty breathing, fevers, or for any medical emergency. Referrals: Brittany Bell MD [Non Staff, Medical] - 1 Week - Home Medications Comprehensive Discharge Medication List: Ambulatory Orders Acetaminophen [Tylenol] 480 mg GT PRN PRN 01/19/15 Albuterol 2.5/Ipratropium 0.5 [Duoneb -] 1 neb IH QID PRN 01/19/15 Baclofen 20 mg PO BID 01/19/15 Cholecalciferol (Vitamin D3) [Vitamin D3] 2,000 unit GT DAILY 01/19/15 Clonidine HCl [Clonidine HCl ER] 0.2 mg PO HS 01/19/15 Diazepam *Pediatric Rectal* [Diastat *Pediatric Rectal Gel* -] 20 mg RC PRN Levetiracetam [Keppra Oral Solution -] 1,500 mg GT BID 01/19/15 Omeprazole [Prilosec] 20 mg GT DAILY 01/19/15 Budesonide [Pulmicort 0.5 mg Nebulizer -] 1 neb NEB BID 02/15/16 Tamsulosin HCl [Flomax -] 0.4 mg PO DAILY@0830 #30 cap.er.24h 02/25/16 Albuterol 2.5/Ipratropium 0.5 [Duoneb -] 1 amp NEB QIDR amp 01/04/17 Aspirin [ASA -] 81 mg PO DAILY tab.chew 01/04/17 Clonidine HCl [Catapres -] 0.1 mg PO HS tablet 01/04/17 Enoxaparin [Lovenox -] 40 mg SQ DAILY #30 syringe 01/04/17 Levetiracetam Injection [Keppra Injection -] 1,500 mg IVPB BID ml 01/04/17 Prednisone [Deltasone -] See Taper PO DAILY #14 tablet 01/04/17 This patient is new to me today: No Emergency Visit: Yes ED Registration Date: 07/08/17 Care time: The patient presented to the Emergency Department on the above date and was hospitalized for further evaluation of their emergent condition. Critical Care patient: No - Discharge Referral [facility]erred to [facility] No
[2017-07-12] MEDS: BUDESONIDE 0.5 MG/2 ML INH SUSP VIAL NEB SCH (11:27)
[2017-07-12 11:37] VITALS: BP 72/42; PULSE 84; TEMP 97.5
--- NOTE | 2017-07-12 16:29 | PN ---
Teaching Attending Note Name of Resident: Sara Tinsley ATTENDING PHYSICIAN STATEMENT I saw and evaluated the patient. I reviewed the resident's note and discussed the case with the resident. I agree with the resident's findings and plan as documented. SUBJECTIVE: Patient is feeling better, smiling today, looks very Happy. OBJECTIVE: Vital Signs Temperature 97.5 F L 07/12/17 08:25 Pulse Rate 84 07/12/17 08:25 Respiratory Rate 21 07/12/17 08:25 Blood Pressure 72/42 07/12/17 08:25 O2 Sat by Pulse Oximetry (%) 95 07/11/17 09:00 CBCD WBC 7.0 K/mm3 (4.0-10.0) 07/09/17 07:40 RBC 4.70 M/mm3 (4.00-5.60) 07/09/17 07:40 Hgb 13.2 GM/dL (11.7-16.9) 07/09/17 07:40 Hct 39.1 % (35.4-49) 07/09/17 07:40 MCV 83.4 fl (80-96) 07/09/17 07:40 MCHC 33.7 g/dl (32.0-35.9) 07/09/17 07:40 RDW 13.8 % (11.9-15.9) 07/09/17 07:40 Plt Count 318 K/MM3 (134-434) 07/09/17 07:40 MPV 7.2 fl (7.5-11.1) L 07/09/17 07:40 CMP Sodium 140 mmol/L (136-145) 07/08/17 08:00 Potassium 3.8 mmol/L (3.5-5.1) 07/08/17 08:00 Chloride 106 mmol/L (98-107) 07/08/17 08:00 Carbon Dioxide 25 mmol/L (21-32) 07/08/17 08:00 Anion Gap 9 (8-16) 07/08/17 08:00 BUN 4 mg/dL (7-18) L D 07/08/17 08:00 Creatinine 0.3 mg/dL (0.7-1.3) L D 07/08/17 08:00 Creat Clearance w eGFR > 60 (>60) 07/07/17 21:30 Random Glucose 84 mg/dL (74-106) 07/08/17 08:00 Calcium 8.3 mg/dL (8.5-10.1) L 07/08/17 08:00 Total Bilirubin 0.3 mg/dL (0.2-1.0) D 07/07/17 21:30 AST 26 U/L (15-37) 07/07/17 21:30 ALT 27 U/L (12-78) 07/07/17 21:30 Alkaline Phosphatase 100 U/L (45-117) 07/07/17 21:30 Total Protein 7.5 g/dl (6.4-8.2) 07/07/17 21:30 Albumin 3.3 g/dl (3.4-5.0) L 07/07/17 21:30 Home Medications Medication Instructions Recorded Acetaminophen [Tylenol] 480 mg GT PRN PRN 01/19/15 Albuterol 2.5/Ipratropium 0.5 1 neb IH QID PRN 01/19/15 [Duoneb -] Baclofen 20 mg PO BID 01/19/15 Cholecalciferol (Vitamin D3) 2,000 unit GT DAILY 01/19/15 [Vitamin D3] Clonidine HCl [Clonidine HCl ER] 0.2 mg PO HS 01/19/15 Diazepam *Pediatric Rectal* 20 mg RC PRN 01/19/15 [Diastat *Pediatric Rectal Gel* -] Levetiracetam [Keppra Oral 1,500 mg GT BID 01/19/15 Solution -] Omeprazole [Prilosec] 20 mg GT DAILY 01/19/15 Budesonide [Pulmicort 0.5 mg 1 neb NEB BID 02/15/16 Nebulizer -] Tamsulosin HCl [Flomax -] 0.4 mg PO DAILY@0830 #30 cap.er.24h 02/25/16 Albuterol 2.5/Ipratropium 0.5 1 amp NEB QIDR amp 01/04/17 [Duoneb -] Aspirin [ASA -] 81 mg PO DAILY tab.chew 01/04/17 Clonidine HCl [Catapres -] 0.1 mg PO HS tablet 01/04/17 Enoxaparin [Lovenox -] 40 mg SQ DAILY #30 syringe 01/04/17 Cefuroxime Axetil Suspension 500 mg PEG BID #3 ml 07/12/17 [Ceftin Suspension -] Clonazepam [KlonoPIN -] 1 mg PO TID tablet MDD 1.5 tabs 07/12/17 Mupirocin Ointment [Bactroban] 1 applic TP BID #1 tube 07/12/17 PE: per residenrt's note ASSESSMENT AND PLAN: Patient is a 26[facility] with fever, tachycardia, productive cough, coarse breath sounds. #Acute respiratory distress improved , will snd him back to [facility], comfortable with no acute distress, No shortness of breath. Continue to keep the head of the bed to 30-45 degrees at all time to avoid aspiration. # RLL pneumonia on Ceftin one more day . s/p Rocephin and Zithromax. On tube feeding continue , doing well on scopalamine patch since patient has increased salivation but is improving post scopalamine patch. # Sepsis due to RLL PNA,on oral Ceftin now s/p IV antibiotic. As per iD can be discharged if stable # Continue home medications for chronic medical problems will discharge the patient back t [facility] today .
== END 2017-07-12 15:11 | disposition home or self-care (01) | DRG 720 ==
LOC: JER 18:21 → JERBED 07-08 02:03 → UNDOADMIN 07-08 02:05 → JERBED 07-08 02:05 → J8W 07-08 03:56
PROVIDERS: ADMIT Internal Medicine; ATTEND Internal Medicine
DX: A41.9 Sepsis, unspecified organism (principal); R53.2 Functional quadriplegia; J18.9 Pneumonia, unspecified organism; E87.2 Acidosis; F72 Severe intellectual disabilities; R13.10 Dysphagia, unspecified; Z93.1 Gastrostomy status; M41.9 Scoliosis, unspecified; G40.89 Other seizures; G80.9 Cerebral palsy, unspecified; J45.909 Unspecified asthma, uncomplicated; R32 Unspecified urinary incontinence; E78.2 Mixed hyperlipidemia; J98.11 Atelectasis; I10 Essential (primary) hypertension; R00.0 Tachycardia, unspecified; Q02 Microcephaly
CPT/HCPCS: 36415; 71010-TC; 71250-TC; 74176-TC; 80048; 80053; 81003; 83605; 83735; 84100; 85025; 85027; 86738; 87040; 87086; 87633; 87804; 87899; 94640; 99281-25; J0475

== ENCOUNTER 2018-03-17 04:51 | Inpatient (IN) | payer OTHER ==
[2018-03-17] MEDS ORDERED: SODIUM CHLORIDE 0.9% 1000 ML INFUS.BAG IV STA (04:54)
--- NOTE | 2018-03-17 05:05 | PDOC ---
History of Present Illness - General Stated Complaint: SHORTNESS OF BREATH Time Seen by Provider: 03/17/18 04:54 - History of Present Illness Initial Comments: 03/17/18 04:59 26 yo M with h/o MR, non verbal and non communicative, dysphagia s/p peg insertion, seizures, hyponatremia (due to meds), asthma, who p/w fever, cough, SOB. Patient with aide at bedside p/w fever Tmax 101.1, "crackly cough," increased secretions, and wheezing. Received Tylenol at [facility], combivent x 1, and placed on NRB. Patient denies N/V, F,C, CP, SOB, urinary complaints, abdominal pain, diarrhea, constipation, lightheadedness, weakness, sensory changes. PMHx: as noted above ROS: as noted Allergies: Phenobarbital Past History - Past Medical History Allergies/Adverse Reactions: Allergies Allergy/AdvReac Type Severity Reaction Status Date / Time phenobarbital Allergy Verified 03/17/18 05:00 pork derived (porcine) Allergy Verified 03/17/18 05:00 venom-honey bee Allergy Verified 03/17/18 05:00 [bee venom (honey bee)] Home Medications: Ambulatory Orders Acetaminophen [Tylenol] 480 mg GT PRN PRN 01/19/15 Albuterol 2.5/Ipratropium 0.5 [Duoneb -] 1 neb IH QID PRN 01/19/15 Baclofen 10 mg PO ASDIR 01/19/15 Diazepam *Pediatric Rectal* [Diastat *Pediatric Rectal Gel* -] 20 mg RC PRN PRN 01/19/15 levETIRAcetam [Keppra Oral Solution -] 1,500 mg GT BID 01/19/15 Albuterol 2.5/Ipratropium 0.5 [Duoneb -] 1 amp NEB QIDR amp 01/04/17 Enoxaparin 80 mg SCJ DAILY 01/27/18 Aspirin [ASA -] 81 mg GT DAILY 03/17/18 Azithromycin 500 mg PO DAILY #5 tablet MDD 1 tab 03/17/18 Carbamazepine [Tegretol -] 280 mg GT BID 03/17/18 Cholecalciferol (Vitamin D3) [Vitamin D3] 2,000 unit GT DAILY 03/17/18 Omeprazole Magnesium [Prilosec] 20 mg GT DAILY 03/17/18 Tamsulosin HCl [Flomax -] 0.4 mg GT DAILY 03/17/18 cloNIDine HCL [Catapres -] 0.2 mg PO HS 03/17/18 clonazePAM [KlonoPIN -] 1 mg GT TID MDD 1.5 tabs 03/17/18 Asthma: Yes COPD: Yes (asthma) Dementia: Yes (mental retardation) GI Disorders: Yes (dysphagia, s/p peg insertion) Psychiatric Problems: (hyponatremia (due to meds)) Seizures: Yes - Surgical History Orthopedic Surgery: (Left Hip Osteotomy) - Immunization History Immunization Up to Date: Yes - Suicide/Smoking/Psychosocial Hx Smoking History: Never smoked Have you smoked in the past 12 months: No Number of Cigarettes Smoked Daily: 0 Cigars Per Day: 0 Hx Alcohol Use: No Drug/Substance Use Hx: No Substance Use Type: None Hx Substance Use Treatment: No Review of Systems - Review of Systems Comments:: 03/17/18 05:05 Unable to obtain d/t mental disability *Physical Exam - Physical Exam Comments: 03/17/18 05:06 GENERAL: Awake, alert. HEAD: No signs of trauma, normocephalic, atraumatic EYES: PERRLA, EOMI, sclera anicteric, conjunctiva clear ENT: Auricles normal inspection, hearing grossly normal, nares patent, oropharynx clear without exudates. Moist mucosa NECK: Normal ROM, supple, no lymphadenopathy, JVD, or masses LUNGS: Lungs CTA. Coarse exp lung sounds. HEART: Regular rate and rhythm, normal S1 and S2, no murmurs, rubs or gallops, peripheral pulses normal and equal bilaterally. ABDOMEN: Soft, nontender, normoactive bowel sounds. No guarding, no rebound. No masses EXTREMITIES : Normal inspection, Normal range of motion, no edema. No clubbing or cyanosis. SKIN: Warm, Dry, normal turgor, no rashes or lesions noted ED Treatment Course - LABORATORY CBC & Chemistry Diagram: 03/17/18 05:22 03/17/18 05:22 - RADIOLOGY Radiology Studies Ordered: Category Date Time Status CHEST X-RAY PORTABLE* [RAD] Stat Radiology 03/17/18 04:54 Ordered Medical Decision Making - Medical Decision Making 03/17/18 05:10 26 yo M with h/o MR, non verbal and non communicative, dysphagia s/p peg insertion, seizures, hyponatremia (due to meds), asthma, BIBA w/ fever Tmax 101.1, Spo2 73-80% RA, cough, SOB. HR 116, temp 99.3, vitals otherwise wnl. Likely infection from respiratory source, suspect aspiration PNA. Sepsis protocol initiated in ED. Ed course: CBC,CMP, LA, VBG, EKG, CXR UA 30 cc/kg NS Urine Cx. , Blood Cx. Tejinder Noriega 03/17/18 06:02 WBC: 10.6 03/17/18 06:24 EKG: ST elevation lead II consitent with previous EKG's. No acute ST changes, Nml interval and axis 03/17/18 06:46 Azithromycin sent to pharmacy CMP: Unremarkable Patient stable for d/c back to facility. *DC/Admit/Observation/Transfer Diagnosis at time of Disposition: Bronchitis - Discharge Dispostion Disposition: HOME Condition at time of disposition: Stable Decision to Admit order: No - Referrals - Patient Instructions Printed Discharge Instructions: DI for Acute Bronchitis Additional Instructions: Patient evaluated and treated at [facility] Emergency Department on. He/ She is safe and advised to return to work on the specified date with no restrictions. - Post Discharge Activity - Attestations Physician Attestion: 03/17/18 06:44 I attest to the information provided in this note.
--- NOTE | 2018-03-17 05:11 | PDOC ---
Attending Attestation - HPI HPI: 03/17/18 05:30 The patient is a 27 year old male brought in by EMS from [facility] and presenting with his excel developer, with a significant past medical history of mental developmental delay, hyponatremia (due to meds), dysphagia, s/p peg insertion, seizures, and asthma, who presents to the ED for evaluation of shortness of breath. As per excel developer, the patient had a fever of Tmax 101.1. The patient reports moderate cough, described as crackly. Pt reports associated symptoms of fever, wheezing, and increased secretions. The patient denies chest pain, headache, lightheadedness, chills, nausea, vomiting, any bowel/urinary symptoms. Allergies: Phenobarbital, pork derived, venom-honey bee. Social History: No reported alcohol, cigarette, or drug use. Surgical History: Peg insertion. - Physicial Exam PE: General Appearance: Yes: Appropriately Dressed. No: Apparent Distress, Intoxicated HEENT: positive: EOMI, SILVESTRE, Normal ENT Inspection, Normal Voice, TMs Normal, Pharynx Normal. negative: Pale Conjunctivae, Photophobia, Scleral Icterus (R), Scleral Icterus (L) Neck: positive: Trachea midline, Normal Thyroid, Supple. negative: Tender, Rigid, Carotid bruit, Stridor, Lymphadenopathy (R), Lymphadenopathy (L), Thyromegaly Respiratory/Chest: positive: Lungs Clear, Normal Breath Sounds. negative: Chest Tender, Respiratory Distress, Accessory Muscle Use, Labored Respiration, RES, Crackles, Rales, Rhonchi, Stridor, Wheezing, Dullness Cardiovascular: positive: Regular Rhythm, Regular Rate, S1, S2. negative: Edema , JVD, Murmur, Bradycardia, Tachycardia Vascular Pulses: Dorsalis-Pedis (R): 2+, Doralis-Pedis (L): 2+ Gastrointestinal/Abdominal: positive: Normal Bowel Sounds, Flat, Soft. negative : Tender, Organomegaly, Pulsatile Mass, Increased Bowel Sounds, Decreased BS, Distended, Guarding, Rebound, Hernia, Hepatomegaly, Splenomegaly Lymphatic: negative: Adenopathy, Tenderness Musculoskeletal: positive: Normal Inspection. negative: CVA Tenderness, Decreased Range of Motion Extremity: positive: Contracted. Normal Capillary Refill, Pelvis Stable. negative: Tender, Pedal Edema, Swelling, Erythema Integumentary: positive: Normal Color, Dry, Warm. negative: Cyanotic, Erythema , Jaundice, Rash Neurologic: positive: Nonverbal. negative: EOM Palsy, Facial Droop, Sensory Deficit <Ana Cristina Colbert - Last Filed: 03/17/18 05:45> - Resident Resident Name: Luis Enrique Duran - ED Attending Attestation I have performed the following: I have examined & evaluated the patient, The case was reviewed & discussed with the resident, I agree w/resident's findings & plan, Exceptions are as noted - Medical Decision Making 03/17/18 19:50 Pt admited for further evaluation and care <Diego Jerez - Last Filed: 03/17/18 19:50> Attestations - Attestations Documentation prepared by Ana Cristina Colbert, acting as medical laboratory technicians for Diego Jerez DO. <Ana Cristina Colbert - Last Filed: 03/17/18 05:45>
[2018-03-17 05:37] LABS: BASO % 0.5 % (0-2.0); EOS % 0.3 % (0-4.5); HEMATOCRIT 38.7 % (35.4-49); HEMOGLOBIN 13.3 GM/dL (11.7-16.9); LYMPH % 8.5 % (8-40); MCH 28.8 pg (25.7-33.7); MCHC 34.4 g/dl (32.0-35.9); MEAN CELL VOLUME 83.7 fl (80-96); MONO % 9.8 % (3.8-10.2); NEUT % 80.9 % (42.8-82.8); PLATELET COUNT 265 K/MM3 (134-434); RBC 4.62 M/mm3 (4.00-5.60); RDW 14.5 % (11.9-15.9); WHITE BLOOD COUNT 10.6 K/mm3 (4.0-10.0)
[2018-03-17 05:48] LABS: INR 1.18 (0.82-1.09); PROTHROMBIN TIME (PATIENT) 13.3 SEC (9.7-13.0)
[2018-03-17 05:51] LABS: ACTIVATED PTT 24.3 SECONDS (25.2-36.5)
[2018-03-17] MEDS ORDERED: PIPERACILLIN/TAZOB 4.5 GM 4.5 GM in DEXTROSE 5%-WATER 100 ML IVPB ONE (06:02)
[2018-03-17] MEDS ORDERED: VANCOMYCIN 1,500 MG in DEXTROSE 5%-WATER - 250 ML IVPB ONE (06:02)
[2018-03-17] MEDS ORDERED: VANCOMYCIN 1 GRAM (PRE-DOCKED) 1,000 MG/250 ML BAG IVPB ONE ×2 (06:08→08:14)
[2018-03-17] MEDS ORDERED: PIPERACILLIN/TAZOB 4.5 GM 4.5 GM/100 ML BAG IVPB ONE (06:08)
[2018-03-17 06:10] LABS: VENOUS PH 7.45 (7.32-7.42)
[2018-03-17 06:11] LABS: VENOUS PC02 33.8 mmHg (38-52)
[2018-03-17 06:17] LABS: URINE APPEARANCE CLOUDY; URINE BILIRUBIN NEGATIVE (<2.0 mg/dL); URINE COLOR YELLOW; URINE GLUCOSE (UA) NEGATIVE (NEGATIVE); URINE KETONE NEGATIVE (NEGATIVE); URINE LEUK ESTERASE NEGATIVE (NEGATIVE); URINE NITRITE NEGATIVE (NEGATIVE); URINE UROBILINOGEN NEGATIVE mg/dL (0.2-1.0)
[2018-03-17 06:25] LABS: ALBUMIN 3.7 g/dl (3.4-5.0); ANION GAP 11 (8-16); BLOOD UREA NITROGEN 14 mg/dL (7-18); CALCIUM 8.7 mg/dL (8.5-10.1); CHLORIDE 101 mmol/L (98-107); CO2 23 mmol/L (21-32); CREATININE 0.7 mg/dL (0.7-1.3); GLUCOSE,RANDOM 80 mg/dL (74-106); POTASSIUM 4.1 mmol/L (3.5-5.1); SGOT/AST 13 U/L (15-37); SGPT/ALT 27 U/L (12-78); SODIUM 135 mmol/L (136-145)
[2018-03-17 06:26] LABS: URINE PROTEIN 1+ (NEGATIVE)
[2018-03-17 06:28] LABS: URINE BACTERIA RARE /hpf (NONE SEEN); URINE MUCUS RARE
[2018-03-17 06:29] LABS: ALK PHOS 111 U/L (45-117); BILIRUBIN,TOTAL 0.2 mg/dL (0.2-1.0); TOT PROT 8.3 g/dl (6.4-8.2)
--- NOTE | 2018-03-17 07:22 | PDOC ---
*Physical Exam - Vital Signs Last Vital Signs Temp Pulse Resp BP Pulse Ox 99.3 F 116 H 24 106/63 100 03/17/18 05:00 03/17/18 05:00 03/17/18 05:00 03/17/18 05:00 03/17/18 05:00 - Physical Exam General Appearance: Yes: Thin, Other (Upper extremities contracted. ) Respiratory/Chest: positive: Other (Periodic snoring respirations, baseline per caregiver.). negative: Decreased Breath Sounds, Crackles, Rales, Rhonchi, Stridor, Wheezing Cardiovascular: positive: Regular Rhythm, Regular Rate Gastrointestinal/Abdominal: positive: Other (G-tube in place; site clean, dry, and intact.). negative: Tender, Soft ED Treatment Course - LABORATORY CBC & Chemistry Diagram: 03/17/18 05:22 03/17/18 05:22 - ADDITIONAL ORDERS Additional order review: Laboratory Results 03/17/18 03/17/18 03/17/18 06:00 05:45 05:22 PT with INR INR PTT (Actin FS) VBG pH 7.45 H POC VBG pCO2 33.8 L D POC VBG pO2 106.0 H D Mixed VBG HCO3 22.9 Sodium Potassium Chloride Carbon Dioxide Anion Gap BUN Creatinine Creat Clearance w eGFR Random Glucose Lactic Acid 3.7 H* Calcium Total Bilirubin AST ALT Alkaline Phosphatase Troponin I Total Protein Albumin Urine Color Yellow Urine Appearance Cloudy Urine pH 8.0 Ur Specific [place] 1.018 Urine Protein 1+ H Urine Glucose (UA) Negative Urine Ketones Negative Urine Blood Negative Urine Nitrite Negative Urine Bilirubin Negative Urine Urobilinogen Negative Ur Leukocyte Esterase Negative Urine WBC (Auto) 4 Urine RBC (Auto) 1 Urine Bacteria Rare Urine Mucus Rare 03/17/18 03/17/18 05:22 05:22 PT with INR 13.30 H INR 1.18 H PTT (Actin FS) 24.3 L D VBG pH POC VBG pCO2 POC VBG pO2 Mixed VBG HCO3 Sodium 135 L Potassium 4.1 Chloride 101 Carbon Dioxide 23 Anion Gap 11 BUN 14 Creatinine 0.7 Creat Clearance w eGFR > 60 Random Glucose 80 Lactic Acid Calcium 8.7 Total Bilirubin 0.2 AST 13 L D ALT 27 Alkaline Phosphatase 111 Troponin I < 0.02 Total Protein 8.3 H Albumin 3.7 Urine Color Urine Appearance Urine pH Ur Specific [place] Urine Protein Urine Glucose (UA) Urine Ketones Urine Blood Urine Nitrite Urine Bilirubin Urine Urobilinogen Ur Leukocyte Esterase Urine WBC (Auto) Urine RBC (Auto) Urine Bacteria Urine Mucus 03/17/18 05:22 RBC 4.62 MCV 83.7 MCHC 34.4 RDW 14.5 MPV 8.0 D Neutrophils % 80.9 D Lymphocytes % 8.5 D Monocytes % 9.8 Eosinophils % 0.3 Basophils % 0.5 - Medications Given in the ED: ED Medications Discontinued Medications Generic Name Dose Route Start Last Admin Trade Name Mercedez PRN Reason Stop Dose Admin Vancomycin HCl 1,500 mg/ 250 mls @ 250 mls/hr 03/17/18 06:02 03/17/18 06:51 Dextrose IVPB 03/17/18 07:01 Not Given ONCE ONE Protocol Piperacillin Sod/Tazobactam 100 mls @ 200 mls/hr 03/17/18 06:02 03/17/18 06: 16 Sod 4.5 gm/ Dextrose IVPB 03/17/18 06:31 200 mls/hr ONCE ONE Administration Protocol Sodium Chloride 1,500 ml 03/17/18 04:54 03/17/18 05:56 Normal Saline - IV 03/17/18 04:55 1,500 ml ONCE STA Administration Medical Decision Making - Medical Decision Making 03/17/18 07:51 Received sign out from Dr. Duran. 27 y/o developmentally delayed, non-verbal, G-tube dependent male presenting to [facility] from [facility] complaining of fever to 101F, diaphoresis, and hypoxia to high 80s (per EMS) around 3am this morning. Hypoxia resolved w/ 15LPM oxygen. CBC revealed leukocytosis to 10.4. Lactic Acid elevated to 3.7. CXR and UA unrevealing. BGL and urine cultures pending. Received 1500cc of NS and Pip-tazo. Ordered Vancomycin 1g to continue broad spectrum abx for sepsis of unknown origin. Repeat Lactic Acid ordered. 03/17/18 07:50 Microblog sent to [facility] for admission. 03/17/18 08:34 Afebrile on repeat oral temp. Hypotensive trend; maintaining MAP >65. Ordered additional 30cc/kg NS bolus. 03/17/18 08:51 Telephone consult with HILARY Noble with [facility]. Agrees to admit pt for observation. Pt admitted to hospitalist service for observation with concern for hypotension and elevated lactic acid in setting of recent fever without source. *DC/Admit/Observation/Transfer Diagnosis at time of Disposition: Hypotensive episode, Fever and chills, Lactic acid blood increased - Discharge Dispostion Condition at time of disposition: Guarded Decision to Admit order: Yes - Prescriptions - Referrals - Patient Instructions - Post Discharge Activity
[2018-03-17] MEDS ORDERED: VANCOMYCIN 1 GM PREMIX - 1 GM/200 ML BAG IVPB ONE (07:26)
[2018-03-17] MEDS ORDERED: SODIUM CHLORIDE 0.9% 500 ML INFUS.BAG IV ONE (08:31)
[2018-03-17] MEDS ORDERED: ACETAMINOPHEN 650 MG/20.3 ML ORAL SOLUTION (CUPS) PO PRN (09:22)
--- NOTE | 2018-03-17 09:28 | HP ---
CHIEF COMPLAINT: Fever, hypoxia PCP: [facility] HISTORY OF PRESENT ILLNESS: Per [facility] records, at 3:30pm patient displayed shortness of breath, diaphoresis, chest congestion, yellowish secretions around his mouth, temp 101.1 , pulse 181, SpO2 73-80%, RR 35, BP 107/23. He was sent to the ED. ER course was notable for: (1) (2) (3) Recent Travel: No PAST MEDICAL HISTORY: PAST SURGICAL HISTORY: Social History: Smoking: no Alcohol: no Drugs: no Family History: Allergies phenobarbital Allergy (Verified 03/17/18 05:00) venom-honey bee [bee venom (honey bee)] Allergy (Verified 03/17/18 05:00) Home Medications Medication Instructions Recorded Acetaminophen [Tylenol] 480 mg GT PRN PRN 01/19/15 Albuterol 2.5/Ipratropium 0.5 1 neb IH QID PRN 01/19/15 [Duoneb -] Baclofen 10 mg PO ASDIR 01/19/15 Diazepam *Pediatric Rectal* 20 mg RC PRN PRN 01/19/15 [Diastat *Pediatric Rectal Gel* -] levETIRAcetam [Keppra Oral 1,500 mg GT BID 01/19/15 Solution -] Albuterol 2.5/Ipratropium 0.5 1 amp NEB QIDR amp 01/04/17 [Duoneb -] Enoxaparin 80 mg SCJ DAILY 01/27/18 Aspirin [ASA -] 81 mg GT DAILY 03/17/18 Azithromycin 500 mg PO DAILY #5 tablet MDD 1 tab 03/17/18 Carbamazepine [Tegretol -] 280 mg GT BID 03/17/18 Cholecalciferol (Vitamin D3) 2,000 unit GT DAILY 03/17/18 [Vitamin D3] Omeprazole Magnesium [Prilosec] 20 mg GT DAILY 03/17/18 Tamsulosin HCl [Flomax -] 0.4 mg GT DAILY 03/17/18 cloNIDine HCL [Catapres -] 0.2 mg PO HS 03/17/18 clonazePAM [KlonoPIN -] 1 mg GT TID MDD 1.5 tabs 03/17/18 REVIEW OF SYSTEMS: Unable to obtain PHYSICAL EXAMINATION Vital Signs Temperature 98.2 F 03/17/18 15:32 Pulse Rate 76 03/17/18 15:32 Respiratory Rate 18 03/17/18 17:19 Blood Pressure 92/54 03/17/18 15:32 O2 Sat by Pulse Oximetry (%) 96 03/17/18 17:19 GENERAL: Awake. Nonverbal. Responds to physical stimuli. HEAD: microcephalic LUNGS: Snoring. Mild expiratory wheezing. HEART: Regular rate and rhythm, normal S1 and S2 ABDOMEN: Soft, nontender, not distended; PEG tube, surrounding skin intact UPPER EXTREMITIES: Contracted. 2+ pulses, warm, well-perfused. No cyanosis. No clubbing. No peripheral edema. LOWER EXTREMITIES: 2+ pulses, warm, well-perfused. No peripheral edema. Laboratory Results - last 24 hr 03/17/18 03/17/18 03/17/18 05:22 05:22 05:22 WBC 10.6 H RBC 4.62 Hgb 13.3 Hct 38.7 MCV 83.7 MCH 28.8 MCHC 34.4 RDW 14.5 Plt Count 265 MPV 8.0 D Absolute Neuts (auto) 8.6 Neutrophils % 80.9 D Lymphocytes % 8.5 D Monocytes % 9.8 Eosinophils % 0.3 Basophils % 0.5 Nucleated RBC % 0 PT with INR 13.30 H INR 1.18 H PTT (Actin FS) 24.3 L D VBG pH POC VBG pCO2 POC VBG pO2 Mixed VBG HCO3 Sodium 135 L Potassium 4.1 Chloride 101 Carbon Dioxide 23 Anion Gap 11 BUN 14 Creatinine 0.7 Creat Clearance w eGFR > 60 Random Glucose 80 Lactic Acid Calcium 8.7 Total Bilirubin 0.2 AST 13 L D ALT 27 Alkaline Phosphatase 111 Troponin I < 0.02 Total Protein 8.3 H Albumin 3.7 Urine Color Urine Appearance Urine pH Ur Specific [place] Urine Protein Urine Glucose (UA) Urine Ketones Urine Blood Urine Nitrite Urine Bilirubin Urine Urobilinogen Ur Leukocyte Esterase Urine WBC (Auto) Urine RBC (Auto) Urine Bacteria Urine Mucus 03/17/18 03/17/18 03/17/18 05:22 05:45 06:00 WBC RBC Hgb Hct MCV MCH MCHC RDW Plt Count MPV Absolute Neuts (auto) Neutrophils % Lymphocytes % Monocytes % Eosinophils % Basophils % Nucleated RBC % PT with INR INR PTT (Actin FS) VBG pH 7.45 H POC VBG pCO2 33.8 L D POC VBG pO2 106.0 H D Mixed VBG HCO3 22.9 Sodium Potassium Chloride Carbon Dioxide Anion Gap BUN Creatinine Creat Clearance w eGFR Random Glucose Lactic Acid 3.7 H* Calcium Total Bilirubin AST ALT Alkaline Phosphatase Troponin I Total Protein Albumin Urine Color Yellow Urine Appearance Cloudy Urine pH 8.0 Ur Specific [place] 1.018 Urine Protein 1+ H Urine Glucose (UA) Negative Urine Ketones Negative Urine Blood Negative Urine Nitrite Negative Urine Bilirubin Negative Urine Urobilinogen Negative Ur Leukocyte Esterase Negative Urine WBC (Auto) 4 Urine RBC (Auto) 1 Urine Bacteria Rare Urine Mucus Rare ASSESSMENT/PLAN 27 year-old male with a PMH significant for profound mental retardation, cerebral palsy with spastic quadriparesis, microcephaly, intractable seizures, cortical blindness, and asthma. Presented to the ED with a report of fever, chest congestion, and hypoxia while at [facility]. Fever Hypoxia Chest congestion --CXR unremarkable, CT chest significant only for RUL discoid atelectasis; CTAP unremarkable --has been afebrile since arrival, no leukocytosis --UA negative --received vanc and zosyn in ED; observe off antibiotics --duonebs --chest PT --titrate O2 to SpO2>92% h/o DVT --per conversation with Dr. Mayorga, in November 2015 had partially occluding thrombus right popliteal vein and has been on therapeutic lovenox since then; requested we get dopplers; in meantime, continue lovenox 60mg daily (1.5mg/kg). --Note: verified patient is NOT allergic to pork derived products; removed from allergy list Functional quadriplegia --profound mental retardation --spastic quadriparesis --cortical blindness --dependent for all ADLs Visit type - Emergency Visit Emergency Visit: Yes ED Registration Date: 03/17/18 Care time: The patient presented to the Emergency Department on the above date and was hospitalized for further evaluation of their emergent condition. - New Patient This patient is new to me today: Yes Date on this admission: 03/17/18 - Critical Care Critical Care patient: No Hospitalist Screening - Colonoscopy Questionnaire Colonoscopy Questionnaire: Colonoscopy Questionnaire - Patient: 50 - 75 years old and never had a screening colonoscopy: No History of colon or rectal polyps, or CA: No History of IBD, Crohn's disease or UC: No History of abdominal radiation therapy as a child: No - Relative: 1 with colon or rectal CA, or polyps at age 60 or younger: Unknown Colon or rectal CA diagnosed at age 45 or younger: Unknown Multiple relatives with colon or rectal CA: Unknown - Outcome: Screening Result: Negative Screen
[2018-03-17] MEDS ORDERED: PATIENT'S OWN MEDICATION (NON-FORMULARY) (Baclofen [Baclofen] 10 MG) PO SCH (09:30)
[2018-03-17] MEDS ORDERED: PATIENT'S OWN MEDICATION (NON-FORMULARY) (Omeprazole Magnesium [Prilosec] 20 MG) GT SCH (10:00)
[2018-03-17] MEDS ORDERED: ENOXAPARIN NA (PORCINE) 80 MG/0.8 ML DISP.SYRIN SQ SCH (10:00)
[2018-03-17] MEDS ORDERED: ENOXAPARIN 80 MG SCJ SCH (10:00)
[2018-03-17] MEDS ORDERED: DIAZEPAM ACUDIAL 12.5-15-20 20 MG KIT RC PRN (10:07)
[2018-03-17] MEDS: ASPIRIN 81 MG CHEWABLE TABLETS GT SCH (11:49)
[2018-03-17] MEDS: TAMSULOSIN HCL 0.4 MG CAP.ER.24H (FP) NR SCH (11:49)
[2018-03-17] MEDS: PANTOPRAZOLE SOD 40 MG SUSPENSION PACKET NGT SCH (11:50)
[2018-03-17] MEDS: levETIRAcetam 500 MG/5 ML ORAL SOLUTION (UNIT-DOSE CUPS) GT SCH ×2 (11:50→22:53)
[2018-03-17] MEDS: carBAMazepine 200 MG/10 ML UNIT-DOSE CUP GT SCH ×2 (11:51→22:53)
[2018-03-17] MEDS: ALBUTEROL SO4 2.5/IPRATROPIUM 0.5 INH SOL 3 ML VIAL.NEB. NEB SCH (11:51)
[2018-03-17] MEDS ORDERED: ASPIRIN 81 MG CHEWABLE TABLETS ONE (11:56)
[2018-03-17] MEDS ORDERED: ALBUTEROL SO4 2.5/IPRATROPIUM 0.5 INH SOL 3 ML VIAL.NEB. NEB ONE (12:09)
[2018-03-17] MEDS ORDERED: clonazePAM 0.5 MG TABLET ONE (13:27)
[2018-03-17] MEDS: clonazePAM 2 MG TABLET GT SCH ×2 (13:32→22:53)
--- NOTE | 2018-03-17 14:21 | EKG ---
Test Reason : Blood Pressure : / mmHG Vent. Rate : 089 BPM Atrial Rate : 089 BPM P-R Int : 152 ms QRS Dur : 088 ms QT Int : 348 ms P-R-T Axes : 033 079 058 degrees QTc Int : 423 ms NORMAL SINUS RHYTHM INFERIOR INFARCT (CITED ON OR BEFORE 19-JAN-2015) ACUTE OH / STEMI ABNORMAL ECG WHEN COMPARED WITH ECG OF 31-DEC-2016 13:51, T WAVE INVERSION LESS EVIDENT IN ANTERIOR LEADS Confirmed by GIO FISCHER MD ([id number]) on 03/17/2018 2:20:56 PM Referred By: Confirmed By:GIO FISCHER MD
[2018-03-17] MEDS: BACLOFEN 10 MG TABLET (FP) GT SCH (18:44)
[2018-03-17] MEDS: cloNIDine HCL 0.1 MG TABLET PO SCH (22:53)
[2018-03-18] MEDS: BACLOFEN 10 MG TABLET (FP) GT SCH ×2 (00:05→17:50)
[2018-03-18] MEDS: BACLOFEN 10 MG TABLET (FP) PO SCH ×2 (06:29→11:49)
[2018-03-18] MEDS: clonazePAM 2 MG TABLET GT SCH ×3 (06:29→21:40)
[2018-03-18] MEDS: ALBUTEROL SO4 2.5/IPRATROPIUM 0.5 INH SOL 3 ML VIAL.NEB. NEB SCH ×4 (07:38→21:20)
[2018-03-18] MEDS: TAMSULOSIN HCL 0.4 MG CAP.ER.24H (FP) NR SCH (08:18)
[2018-03-18 08:35] LABS: ALBUMIN 3.3 g/dl (3.4-5.0); ANION GAP 7 (8-16); BILIRUBIN,TOTAL 0.2 mg/dL (0.2-1.0); BLOOD UREA NITROGEN 7 mg/dL (7-18); CALCIUM 8.6 mg/dL (8.5-10.1); CHLORIDE 105 mmol/L (98-107); CO2 24 mmol/L (21-32); CREATININE 0.3 mg/dL (0.7-1.3); GLUCOSE,RANDOM 67 mg/dL (74-106); MAGNESIUM 2.2 mg/dL (1.8-2.4); SGOT/AST 20 U/L (15-37); SGPT/ALT 27 U/L (12-78); SODIUM 136 mmol/L (136-145); TOT PROT 7.2 g/dl (6.4-8.2)
[2018-03-18 08:36] LABS: ALK PHOS 99 U/L (45-117)
[2018-03-18 08:37] LABS: BASO % 0.7 % (0-2.0); EOS % 5.9 % (0-4.5); HEMATOCRIT 35.8 % (35.4-49); HEMOGLOBIN 11.8 GM/dL (11.7-16.9); LYMPH % 25.3 % (8-40); MCH 28.4 pg (25.7-33.7); MCHC 33.1 g/dl (32.0-35.9); MEAN CELL VOLUME 85.7 fl (80-96); MEAN PLT VOLUME 8.4 fl (7.5-11.1); MONO % 10.3 % (3.8-10.2); NEUT % 57.8 % (42.8-82.8); PLATELET COUNT 238 K/MM3 (134-434); RBC 4.17 M/mm3 (4.00-5.60); RDW 14.4 % (11.9-15.9); WHITE BLOOD COUNT 5.9 K/mm3 (4.0-10.0)
--- NOTE | 2018-03-18 08:44 | PN ---
Progress Note, Physician Chief Complaint: ID Respiratory distress and fever recorded at [facility] - Current Medication List Current Medications: Active Medications Acetaminophen (Tylenol Oral Solution -) 650 mg PO Q6H PRN PRN Reason: FEVER Albuterol/Ipratropium (Duoneb -) 1 amp NEB RTID [facility] Last Admin: 03/18/18 07:38 Dose: 1 amp Aspirin (Asa -) 81 mg GT DAILY [facility] Last Admin: 03/17/18 11:49 Dose: 81 mg Baclofen (Lioresal -) 10 mg PO DAILY@0600,1200 [facility] Last Admin: 03/18/18 06:29 Dose: 10 mg Baclofen (Lioresal -) 20 mg GT DAILY@1800,0000 [facility] Last Admin: 03/18/18 00:05 Dose: 20 mg Carbamazepine (Tegretol Oral Suspension -) 280 mg GT BID [facility] Last Admin: 03/17/18 22:53 Dose: 280 mg Clonazepam (Klonopin -) 1 mg GT TID [facility] Last Admin: 03/18/18 06:29 Dose: 1 mg Clonidine (Catapres -) 0.2 mg PO HS [facility] Last Admin: 03/17/18 22:53 Dose: Not Given Diazepam (Diastat Rectal Gel -) 20 mg RC PRN PRN PRN Reason: seizures Enoxaparin Sodium (Lovenox -) 60 mg SQ DAILY [facility] Levetiracetam (Keppra Oral Solution -) 1,500 mg GT BID [facility] Last Admin: 03/17/18 22:53 Dose: 1,500 mg Pantoprazole Sodium (Protonix Packets For Oral Suspension -) 20 mg NGT DAILY [facility] Last Admin: 03/17/18 11:50 Dose: 20 mg Tamsulosin HCl (Flomax -) 0.4 mg NR DAILY@0830 [facility] Last Admin: 03/18/18 08:18 Dose: 0.4 mg - Objective Vital Signs: Vital Signs Temperature 97.3 F L 03/18/18 06:40 Pulse Rate 90 03/18/18 06:40 Respiratory Rate 20 03/18/18 06:40 Blood Pressure 122/73 03/18/18 06:40 O2 Sat by Pulse Oximetry (%) 96 03/18/18 01:00 Labs: INR, PTT INR 1.18 (0.82-1.09) H 03/17/18 05:22 Problem List - Problems (1) Fever and chills Code(s): R50.9 - FEVER, UNSPECIFIED (2) Hypotensive episode Code(s): I95.9 - HYPOTENSION, UNSPECIFIED (3) Hypoxemia Code(s): R09.02 - HYPOXEMIA Assessment/Plan Microbiology 03/17/18 05:22 Blood - Peripheral Venous Blood Culture - Preliminary NO GROWTH OBTAINED AFTER 24 HOURS, INCUBATION TO CONTINUE FOR 4 DAYS. 03/17/18 05:00 Blood - Peripheral Venous Blood Culture - Preliminary NO GROWTH OBTAINED AFTER 24 HOURS, INCUBATION TO CONTINUE FOR 4 DAYS. Laboratory Tests 03/17/18 03/17/18 03/17/18 05:22 05:22 06:00 WBC 10.6 H Plt Count 265 Lactic Acid 3.7 H* Urine WBC (Auto) 4 Urine RBC (Auto) 1 03/17/18 08:48 WBC Plt Count Lactic Acid 3.8 H* Urine WBC (Auto) Urine RBC (Auto) Assessment Fever hypotension respiratory distress ? recurrent aspiration though no infiltrate seen Lactic acid not new Plan BLood cultures RSV screen Viral panel Vancomycin and Unasyn for now Vu PATRICK
--- NOTE | 2018-03-18 09:18 | CONS ---
DATE OF CONSULTATION: DATE OF DICTATION: 03/18/2018 HISTORY OF PRESENT ILLNESS: This is a one of several admissions for this 27-year-old male from the [facility] brought because of shortness of breath, diaphoresis, fever to 101, hypoxemia, and transient hypotension documented here in the emergency room. He underwent a CT scan of the chest which did not show evidence of acute pneumonia. He has apparently had prior admissions here with diagnosis of aspiration pneumonia in the past. He was empirically treated with broad spectrum antibiotics in the emergency room with 1.5 mg of vancomycin and piperacillin tazobactam, and I am asked to see him for further evaluation and treatment. PAST MEDICAL HISTORY: Includes [facility] residential status. MEDICATIONS: Flomax, Tegretol, Keppra, Klonopin, Duo-Neb, Catapres, Lioresal, aspirin, Protonix. ALLERGIES: To PHENOBARBITAL. SOCIAL HISTORY: A long-term residential facility, nonsmoker, no history of substance/alcohol abuse. FAMILY HISTORY: Unobtainable. REVIEW OF SYSTEMS: Respiratory: Shortness of breath, hypoxemia. Cardiac: No history of congenital heart disease. Gastrointestinal: PEG feeding tube. No vomiting, diarrhea. Genitourinary: Incontinent of urine. PHYSICAL EXAMINATION: General: Revealed a contracted male in no acute distress. Vital signs: Temperature 97.3, pulse 90, blood pressure 122/73, respirations 20. Lungs: Bilateral rhonchi. Heart: S1, S2, regular rhythm, no murmur. Abdomen: PEG feeding tube. Soft. Extremities: Contracted. No edema. Urinalysis with 4 RBCs, 1 WBC. White count of 10.6, hemoglobin 13.3, platelets 265. BUN 14, creatinine 0.7, lactic acid 3.7. Liver enzymes within normal limits. Two sets of blood cultures currently no growth. CT of the chest . ASSESSMENT: A 27-year-old male with history of aspirations in the past presents with acute respiratory distress and hypotension. The differential diagnosis would include sepsis. Aspiration always a consideration in this setting. He will be treated empirically with vancomycin 750 mg q.12 along with 2 g of ceftriaxone pending blood and urine cultures. Lactic acid noted, but has been elevated during previous admissions. Not sure an indicator of sepsis in this case. Will get RSV and viral panel screening for common respiratory viruses. MEENAKSHI OCONNOR M.D. ELISSA/[id number]
[2018-03-18] MEDS ORDERED: ENOXAPARIN NA (PORCINE) 60 MG/0.6 ML DISP.SYRIN SQ SCH (10:00)
[2018-03-18] MEDS ORDERED: cefTRIAXone SODIUM 1 GM VIAL ONE (10:08)
[2018-03-18] MEDS ORDERED: PT OWN MED DRAWER 7, Y5N ONE ×3 (10:08→20:55)
[2018-03-18] MEDS ORDERED: DEXTROSE 5%-WATER - 50 ML IVPB ONE (10:08)
[2018-03-18] MEDS: ASPIRIN 81 MG CHEWABLE TABLETS GT SCH (10:19)
[2018-03-18] MEDS: PANTOPRAZOLE SOD 40 MG SUSPENSION PACKET NGT SCH ×2 (10:19→11:58)
[2018-03-18] MEDS: carBAMazepine 200 MG/10 ML UNIT-DOSE CUP GT SCH ×2 (10:31→21:40)
[2018-03-18] MEDS: CEFTRIAXONE 1 GM in DEXTROSE 5%-WATER - 50 ML IVPB SCH (10:33)
[2018-03-18] MEDS: VANCOMYCIN 750 MG in DEXTROSE 5%-WATER - 250 ML IVPB SCH (11:08)
--- NOTE | 2018-03-18 11:43 | PN ---
Progress Note (short form) - Note Progress Note: Subjective: The patient is non-verbal at baseline WBC wnl Afebrile Current Medications Generic Name Dose Route Start Last Admin Trade Name Freq PRN Reason Stop Dose Admin Acetaminophen 650 mg 03/17/18 09:22 Tylenol Oral Solution - PO Q6H PRN FEVER Albuterol/Ipratropium 1 amp 03/18/18 08:00 03/18/18 07:38 Duoneb - NEB 1 amp RTID [facility]KSANDR Administration Aspirin 81 mg 03/17/18 10:00 03/18/18 10:19 Asa - GT 81 mg DAILY ALEKSANDR Administration Baclofen 10 mg 03/18/18 06:00 03/18/18 06:29 Lioresal - PO 10 mg DAILY@0600,1200 [facility] Administration Baclofen 20 mg 03/17/18 18:00 03/18/18 00:05 Lioresal - GT 20 mg DAILY@1800,0000 [facility] Administration Carbamazepine 280 mg 03/17/18 10:00 03/18/18 10:31 Tegretol Oral Suspension - GT 280 mg BID [facility]ANDR Administration Clonazepam 1 mg 03/17/18 14:00 03/18/18 06:29 Klonopin - GT 1 mg TID A[facility]ANDR Administration Clonidine 0.2 mg 03/17/18 22:00 03/17/18 22:53 Catapres - PO Not Given HS ALEKSANDR Diazepam 20 mg 03/17/18 10:07 Diastat Rectal Gel - RC PRN PRN seizures Enoxaparin Sodium 60 mg 03/18/18 10:00 03/18/18 10:31 Lovenox - SQ 60 mg DAILY [facility]ANDR Administration Vancomycin HCl 750 mg/ 250 mls @ 150 mls/hr 03/18/18 10:00 03/18/18 11:08 Dextrose IVPB 150 mls/hr DAILY@1000 [facility]AN[facility] Administration Protocol Ceftriaxone Sodium 1 gm/ 50 mls @ 100 mls/hr 03/18/18 10:00 03/18/18 10:33 Dextrose IVPB 100 mls/hr DAILY [facility]ANDR Administration Protocol Levetiracetam 1,500 mg 03/17/18 10:00 03/17/18 22:53 Keppra Oral Solution - GT 1,500 mg BID A[facility]KSANDR Administration Ranitidine HCl 150 mg 03/18/18 11:00 Zantac Oral Solution - NGT BID ALEKSANDR Tamsulosin HCl 0.4 mg 03/17/18 10:00 03/18/18 08:18 Flomax - NR 0.4 mg DAILY@0830 A[facility]ANDR Administration Objective: Vital Signs Period Temp Pulse Resp BP Sys/Don Pulse Ox Last 24 Hr 97.3 F-98.9 F 75-90 18-20 92-128/49-73 96-97 Physical Exam: CBCD WBC 5.9 K/mm3 (4.0-10.0) 03/18/18 06:20 RBC 4.17 M/mm3 (4.00-5.60) 03/18/18 06:20 Hgb 11.8 GM/dL (11.7-16.9) 03/18/18 06:20 Hct 35.8 % (35.4-49) 03/18/18 06:20 MCV 85.7 fl (80-96) 03/18/18 06:20 MCHC 33.1 g/dl (32.0-35.9) 03/18/18 06:20 RDW 14.4 % (11.9-15.9) 03/18/18 06:20 Plt Count 238 K/MM3 (134-434) 03/18/18 06:20 MPV 8.4 fl (7.5-11.1) 03/18/18 06:20 CMP Sodium 136 mmol/L (136-145) 03/18/18 06:20 Potassium 4.0 mmol/L (3.5-5.1) 03/18/18 06:20 Chloride 105 mmol/L (98-107) 03/18/18 06:20 Carbon Dioxide 24 mmol/L (21-32) 03/18/18 06:20 Anion Gap 7 (8-16) L 03/18/18 06:20 BUN 7 mg/dL (7-18) 03/18/18 06:20 Creatinine 0.3 mg/dL (0.7-1.3) L 03/18/18 06:20 Creat Clearance w eGFR > 60 (>60) 03/18/18 06:20 Random Glucose 67 mg/dL (74-106) L 03/18/18 06:20 Calcium 8.6 mg/dL (8.5-10.1) 03/18/18 06:20 Total Bilirubin 0.2 mg/dL (0.2-1.0) 03/18/18 06:20 AST 20 U/L (15-37) D 03/18/18 06:20 ALT 27 U/L (12-78) 03/18/18 06:20 Alkaline Phosphatase 99 U/L (45-117) D 03/18/18 06:20 Total Protein 7.2 g/dl (6.4-8.2) 03/18/18 06:20 Albumin 3.3 g/dl (3.4-5.0) L 03/18/18 06:20 CARDIAC ENZYMES Troponin I < 0.02 ng/ml (0.00-0.05) 03/17/18 05:22 Microbiology 03/17/18 06:00 Urine - Urine - Catheterized Urine Culture - Final NO GROWTH OBTAINED 03/17/18 05:00 Blood - Peripheral Venous Blood Culture - Preliminary NO GROWTH OBTAINED AFTER 24 HOURS, INCUBATION TO CONTINUE FOR 4 DAYS. 03/17/18 05:22 Blood - Peripheral Venous Blood Culture - Preliminary NO GROWTH OBTAINED AFTER 24 HOURS, INCUBATION TO CONTINUE FOR 4 DAYS. Assessment: This is a 27 year old male with PMHx of profound mental retardation , cerebral palsy, microcephaly, seizures, cortical blindness, asthma, who presented to the ED with fever, chest congestion, hypoxia while at [facility] Plan: 1) Fever, hypoxia, respiratory distress? - Symptoms reported at [facility], patient has been asymptomatic since arrive at [facility] - Lactic acid elevated, continue to trend, has had elevation in the past - Blood cultures with NGTD - F/u RSV Ag - Continue Vancomycin - Continue Ceftriaxone - Appreciate ID consult 2) Seizures - Continue Tegretol - Continue Keppra 3) Hx of DVT - Patient has a history of popliteal DVT diagnosed in 2016 - Doppler here negative for DVT - Will discontinue Lovenox - Outpatient follow-up with hematology 4) F/E/N - Tube feeds - Monitor electrolytes 5) Prophylaxis: - Heparin 5,000u sq bid 6) Dispo: - Requires continued inpatient care Visit type - Emergency Visit Emergency Visit: Yes ED Registration Date: 03/17/18 Care time: The patient presented to the Emergency Department on the above date and was hospitalized for further evaluation of their emergent condition. - New Patient This patient is new to me today: Yes Date on this admission: 03/18/18 - Critical Care Critical Care patient: No
[2018-03-18] MEDS: levETIRAcetam 500 MG/5 ML ORAL SOLUTION (UNIT-DOSE CUPS) GT SCH ×2 (11:48→21:41)
[2018-03-18] MEDS: RANITIDINE HCL 150 MG/10 ML UNIT-DOSE NGT SCH ×2 (11:57→21:40)
[2018-03-18] MEDS: cloNIDine HCL 0.1 MG TABLET PO SCH (21:45)
[2018-03-19] MEDS: BACLOFEN 10 MG TABLET (FP) GT SCH ×2 (00:03→17:14)
[2018-03-19] MEDS: clonazePAM 2 MG TABLET GT SCH ×3 (05:57→22:12)
[2018-03-19] MEDS: BACLOFEN 10 MG TABLET (FP) PO SCH ×2 (05:58→12:58)
[2018-03-19] MEDS: ALBUTEROL SO4 2.5/IPRATROPIUM 0.5 INH SOL 3 ML VIAL.NEB. NEB SCH ×3 (07:30→20:20)
--- NOTE | 2018-03-19 09:05 | PN ---
Progress Note (short form) - Note Progress Note: Subjective: The patient is non-verbal at baseline Afebrile Current Medications Generic Name Dose Route Start Last Admin Trade Name Freq PRN Reason Stop Dose Admin Acetaminophen 650 mg 03/17/18 09:22 Tylenol Oral Solution - PO Q6H PRN FEVER Albuterol/Ipratropium 1 amp 03/18/18 08:00 03/19/18 07:30 Duoneb - NEB 1 amp RTID ALEKSANDR Administration Aspirin 81 mg 03/17/18 10:00 03/18/18 10:19 Asa - GT 81 mg DAILY ALEKSANDR Administration Baclofen 10 mg 03/18/18 06:00 03/19/18 05:58 Lioresal - PO 10 mg DAILY@0600,1200 ALEKSANDR Administration Baclofen 20 mg 03/17/18 18:00 03/19/18 00:03 Lioresal - GT 20 mg DAILY@1800,0000 ALE[facility]ANDR Administration Carbamazepine 280 mg 03/17/18 10:00 03/18/18 21:40 Tegretol Oral Suspension - GT 280 mg BID ALEKSANDR Administration Clonazepam 1 mg 03/17/18 14:00 03/19/18 05:57 Klonopin - GT 1 mg TID ALEKSANDR Administration Clonidine 0.2 mg 03/17/18 22:00 03/18/18 21:45 Catapres - PO 0.2 mg HS ALEKSANDR Administration Diazepam 20 mg 03/17/18 10:07 Diastat Rectal Gel - RC PRN PRN seizures Heparin Sodium (Porcine) 5,000 unit 03/19/18 10:00 Heparin - SQ BID ALEKSANDR Vancomycin HCl 750 mg/ 250 mls @ 150 mls/hr 03/18/18 10:00 03/18/18 11:08 Dextrose IVPB 150 mls/hr DAILY@1000 ALEKSANDR Administration Protocol Ceftriaxone Sodium 1 gm/ 50 mls @ 100 mls/hr 03/18/18 10:00 03/18/18 10:33 Dextrose IVPB 100 mls/hr DAILY ALEKSANDR Administration Protocol Levetiracetam 1,500 mg 03/17/18 10:00 03/18/18 21:41 Keppra Oral Solution - GT 1,500 mg BID ALEKSANDR Administration Ranitidine HCl 150 mg 03/18/18 11:00 03/18/18 21:40 Zantac Oral Solution - NGT 150 mg BID ALEKSANDR Administration Tamsulosin HCl 0.4 mg 03/17/18 10:00 03/18/18 08:18 Flomax - NR 0.4 mg DAILY@0830 ALEKSANDR Administration Objective: Vital Signs Period Temp Pulse Resp BP Sys/Don Pulse Ox Last 24 Hr 97.4 F-98.4 F 49-83 20-20 96-137/46-89 96-96 Physical Exam: GENERAL: Awake. Nonverbal. Responds to physical stimuli. HEAD: microcephalic LUNGS: B/l rhonchi, no wheezing HEART: Regular rate and rhythm, normal S1 and S2 ABDOMEN: Soft, nontender, not distended; PEG tube, surrounding skin intact UPPER EXTREMITIES: Contracted. 2+ pulses, warm, well-perfused. No cyanosis. No clubbing. No peripheral edema. LOWER EXTREMITIES: 2+ pulses, warm, well-perfused. No peripheral edema. CBCD WBC 5.9 K/mm3 (4.0-10.0) 03/18/18 06:20 RBC 4.17 M/mm3 (4.00-5.60) 03/18/18 06:20 Hgb 11.8 GM/dL (11.7-16.9) 03/18/18 06:20 Hct 35.8 % (35.4-49) 03/18/18 06:20 MCV 85.7 fl (80-96) 03/18/18 06:20 MCHC 33.1 g/dl (32.0-35.9) 03/18/18 06:20 RDW 14.4 % (11.9-15.9) 03/18/18 06:20 Plt Count 238 K/MM3 (134-434) 03/18/18 06:20 MPV 8.4 fl (7.5-11.1) 03/18/18 06:20 CMP Sodium 136 mmol/L (136-145) 03/18/18 06:20 Potassium 4.0 mmol/L (3.5-5.1) 03/18/18 06:20 Chloride 105 mmol/L (98-107) 03/18/18 06:20 Carbon Dioxide 24 mmol/L (21-32) 03/18/18 06:20 Anion Gap 7 (8-16) L 03/18/18 06:20 BUN 7 mg/dL (7-18) 03/18/18 06:20 Creatinine 0.3 mg/dL (0.7-1.3) L 03/18/18 06:20 Creat Clearance w eGFR > 60 (>60) 03/18/18 06:20 Random Glucose 67 mg/dL (74-106) L 03/18/18 06:20 Calcium 8.6 mg/dL (8.5-10.1) 03/18/18 06:20 Total Bilirubin 0.2 mg/dL (0.2-1.0) 03/18/18 06:20 AST 20 U/L (15-37) D 03/18/18 06:20 ALT 27 U/L (12-78) 03/18/18 06:20 Alkaline Phosphatase 99 U/L (45-117) D 03/18/18 06:20 Total Protein 7.2 g/dl (6.4-8.2) 03/18/18 06:20 Albumin 3.3 g/dl (3.4-5.0) L 03/18/18 06:20 CARDIAC ENZYMES Troponin I < 0.02 ng/ml (0.00-0.05) 03/17/18 05:22 Microbiology 03/17/18 05:00 Blood - Peripheral Venous Blood Culture - Preliminary NO GROWTH OBTAINED AFTER 48 HOURS, INCUBATION TO CONTINUE FOR 3 DAYS. 03/17/18 05:22 Blood - Peripheral Venous Blood Culture - Preliminary NO GROWTH OBTAINED AFTER 48 HOURS, INCUBATION TO CONTINUE FOR 3 DAYS. 03/18/18 10:45 Nasopharyngeal Swab Respiratory Syncytial Virus Ag - Final 03/18/18 10:45 Nasopharyngeal Swab Respiratory Virus (PCR) - Preliminary 03/17/18 06:00 Urine - Urine - Catheterized Urine Culture - Final NO GROWTH OBTAINED Assessment: This is a 27 year old male with PMHx of profound mental retardation , cerebral palsy, microcephaly, seizures, cortical blindness, asthma, who presented to the ED with fever, chest congestion, hypoxia while at [place] Plan: 1) Fever, hypoxia, respiratory distress? - Symptoms reported at [place], patient has been asymptomatic since arrive at [facility] - Lactic acid wnl - Blood cultures with NGTD - F/u RSV Ag - Continue Vancomycin - Continue Ceftriaxone - Appreciate ID consult 2) Seizures - Continue Tegretol - Continue Keppra 3) Hx of DVT - Patient has a history of popliteal DVT diagnosed in 2016 - Doppler here negative for DVT - Will discontinue Lovenox - Outpatient follow-up with hematology 4) F/E/N - Tube feeds - Monitor electrolytes 5) Prophylaxis: - Heparin 5,000u sq bid 6) Dispo: - Requires continued inpatient care Visit type - Emergency Visit Emergency Visit: Yes ED Registration Date: 03/17/18 Care time: The patient presented to the Emergency Department on the above date and was hospitalized for further evaluation of their emergent condition. - New Patient This patient is new to me today: No - Critical Care Critical Care patient: No
[2018-03-19] MEDS ORDERED: PT OWN MED DRAWER 7, Y5N ONE (09:37)
[2018-03-19] MEDS ORDERED: cefTRIAXone SODIUM 1 GM VIAL ONE (09:38)
[2018-03-19] MEDS ORDERED: DEXTROSE 5%-WATER - 50 ML IVPB ONE (09:38)
[2018-03-19] MEDS: RANITIDINE HCL 150 MG/10 ML UNIT-DOSE NGT SCH ×2 (09:48→22:12)
[2018-03-19] MEDS: VANCOMYCIN 750 MG in DEXTROSE 5%-WATER - 250 ML IVPB SCH (09:48)
[2018-03-19] MEDS: ASPIRIN 81 MG CHEWABLE TABLETS GT SCH (09:48)
[2018-03-19] MEDS: HEPARIN NA (PORCINE) 5,000 UNITS/ML 1ML VIAL SQ SCH ×2 (09:53→22:11)
[2018-03-19] MEDS: levETIRAcetam 500 MG/5 ML ORAL SOLUTION (UNIT-DOSE CUPS) GT SCH ×2 (09:54→22:49)
[2018-03-19] MEDS: TAMSULOSIN HCL 0.4 MG CAP.ER.24H (FP) NR SCH (09:55)
[2018-03-19] MEDS: carBAMazepine 200 MG/10 ML UNIT-DOSE CUP GT SCH ×2 (09:57→22:49)
[2018-03-19] MEDS: CEFTRIAXONE 1 GM in DEXTROSE 5%-WATER - 50 ML IVPB SCH (11:01)
--- NOTE | 2018-03-19 11:16 | PN ---
Progress Note, Physician History of Present Illness: Not verbally responsive Breathing non-labored Afebrile WBC improved WNL - Current Medication List Current Medications: Active Medications Acetaminophen (Tylenol Oral Solution -) 650 mg PO Q6H PRN PRN Reason: FEVER Albuterol/Ipratropium (Duoneb -) 1 amp NEB RTID [facility] Last Admin: 03/19/18 07:30 Dose: 1 amp Aspirin (Asa -) 81 mg GT DAILY [facility] Last Admin: 03/19/18 09:48 Dose: 81 mg Baclofen (Lioresal -) 10 mg PO DAILY@0600,1200 [facility] Last Admin: 03/19/18 05:58 Dose: 10 mg Baclofen (Lioresal -) 20 mg GT DAILY@1800,0000 [facility] Last Admin: 03/19/18 00:03 Dose: 20 mg Carbamazepine (Tegretol Oral Suspension -) 280 mg GT BID [facility] Last Admin: 03/19/18 09:57 Dose: 280 mg Clonazepam (Klonopin -) 1 mg GT TID [facility] Last Admin: 03/19/18 05:57 Dose: 1 mg Clonidine (Catapres -) 0.2 mg PO HS [facility] Last Admin: 03/18/18 21:45 Dose: 0.2 mg Diazepam (Diastat Rectal Gel -) 20 mg RC PRN PRN PRN Reason: seizures Heparin Sodium (Porcine) (Heparin -) 5,000 unit SQ BID [facility] Last Admin: 03/19/18 09:53 Dose: 5,000 unit Vancomycin HCl 750 mg/ (Dextrose) 250 mls @ 150 mls/hr IVPB DAILY@1000 [facility]; Protocol Last Admin: 03/19/18 09:48 Dose: 150 mls/hr Ceftriaxone Sodium 1 gm/ (Dextrose) 50 mls @ 100 mls/hr IVPB DAILY [facility]; Protocol Last Admin: 03/19/18 11:01 Dose: 100 mls/hr Levetiracetam (Keppra Oral Solution -) 1,500 mg GT BID [facility] Last Admin: 03/19/18 09:54 Dose: 1,500 mg Ranitidine HCl (Zantac Oral Solution -) 150 mg NGT BID [facility] Last Admin: 03/19/18 09:48 Dose: 150 mg Tamsulosin HCl (Flomax -) 0.4 mg NR DAILY@0830 [facility] Last Admin: 03/19/18 09:55 Dose: 0.4 mg - Objective Vital Signs: Vital Signs Temperature 98.2 F 03/19/18 02:00 Pulse Rate 49 L 03/19/18 02:00 Respiratory Rate 20 03/19/18 05:00 Blood Pressure 96/46 03/19/18 02:00 O2 Sat by Pulse Oximetry (%) 96 03/19/18 05:00 Constitutional: Yes: No Distress Eyes: Yes: Conjunctiva Clear Cardiovascular: Yes: Regular Rate and Rhythm, S1, S2 Respiratory: Yes: Diminished Gastrointestinal: Yes: Normal Bowel Sounds, Soft. No: Tenderness Labs: CBC, BMP 03/18/18 06:20 03/18/18 06:20 INR, PTT INR 1.18 (0.82-1.09) H 03/17/18 05:22 Assessment/Plan S/P respiratory distress Probable aspiration pneumonia Lactic acidosis- resolved CP/MR may substitute Augmentin susp via GT bid x 7d
[2018-03-19] MEDS: cloNIDine HCL 0.1 MG TABLET PO SCH (22:12)
[2018-03-20] MEDS: BACLOFEN 10 MG TABLET (FP) GT SCH ×2 (00:33→17:18)
[2018-03-20] MEDS: clonazePAM 2 MG TABLET GT SCH ×3 (06:01→21:44)
[2018-03-20] MEDS: BACLOFEN 10 MG TABLET (FP) PO SCH ×2 (06:01→12:04)
[2018-03-20] MEDS: ALBUTEROL SO4 2.5/IPRATROPIUM 0.5 INH SOL 3 ML VIAL.NEB. NEB SCH ×3 (07:40→20:27)
[2018-03-20 08:03] LABS: BASO % 0.7 % (0-2.0); EOS % 3.2 % (0-4.5); HEMATOCRIT 38.7 % (35.4-49); HEMOGLOBIN 13.1 GM/dL (11.7-16.9); LYMPH % 21.4 % (8-40); MCH 28.7 pg (25.7-33.7); MCHC 33.9 g/dl (32.0-35.9); MEAN CELL VOLUME 84.6 fl (80-96); MEAN PLT VOLUME 8.4 fl (7.5-11.1); MONO % 8.2 % (3.8-10.2); NEUT % 66.5 % (42.8-82.8); PLATELET COUNT 247 K/MM3 (134-434); RBC 4.58 M/mm3 (4.00-5.60); RDW 14.3 % (11.9-15.9); WHITE BLOOD COUNT 6.6 K/mm3 (4.0-10.0)
[2018-03-20] MEDS ORDERED: cefTRIAXone SODIUM 1 GM VIAL ONE (09:47)
[2018-03-20] MEDS ORDERED: PT OWN MED DRAWER 7, Y5N ONE (09:47)
[2018-03-20] MEDS ORDERED: DEXTROSE 5%-WATER - 50 ML IVPB ONE (09:47)
[2018-03-20] MEDS: TAMSULOSIN HCL 0.4 MG CAP.ER.24H (FP) NR SCH (09:49)
[2018-03-20] MEDS: HEPARIN NA (PORCINE) 5,000 UNITS/ML 1ML VIAL SQ SCH ×2 (09:49→21:45)
[2018-03-20] MEDS: levETIRAcetam 500 MG/5 ML ORAL SOLUTION (UNIT-DOSE CUPS) GT SCH ×2 (09:50→21:46)
[2018-03-20] MEDS: CEFTRIAXONE 1 GM in DEXTROSE 5%-WATER - 50 ML IVPB SCH (09:51)
[2018-03-20] MEDS: carBAMazepine 200 MG/10 ML UNIT-DOSE CUP GT SCH ×2 (09:51→21:50)
[2018-03-20] MEDS: RANITIDINE HCL 150 MG/10 ML UNIT-DOSE NGT SCH ×2 (09:52→21:45)
[2018-03-20] MEDS: ASPIRIN 81 MG CHEWABLE TABLETS GT SCH (09:52)
--- NOTE | 2018-03-20 10:25 | PN ---
Progress Note (short form) - Note Progress Note: Subjective: The patient is non-verbal at baseline Afebrile Current Medications Generic Name Dose Route Start Last Admin Trade Name Mercedez PRN Reason Stop Dose Admin Acetaminophen 650 mg 03/17/18 09:22 Tylenol Oral Solution - PO Q6H PRN FEVER Albuterol/Ipratropium 1 amp 03/18/18 08:00 03/20/18 07:40 Duoneb - NEB 1 amp RTID [facility]LE[facility]ANDR Administration Aspirin 81 mg 03/17/18 10:00 03/20/18 09:52 Asa - GT 81 mg DAILY [facility] Administration Baclofen 10 mg 03/18/18 06:00 03/20/18 06:01 Lioresal - PO 10 mg DAILY@0600,1200 [facility] Administration Baclofen 20 mg 03/17/18 18:00 03/20/18 00:33 Lioresal - GT 20 mg DAILY@1800,0000 [facility] Administration Carbamazepine 280 mg 03/17/18 10:00 03/20/18 09:51 Tegretol Oral Suspension - GT 280 mg BID [facility]AN[facility] Administration Clonazepam 1 mg 03/17/18 14:00 03/20/18 06:01 Klonopin - GT 1 mg TID [facility]AN[facility] Administration Clonidine 0.2 mg 03/17/18 22:00 03/19/18 22:12 Catapres - PO 0.2 mg HS [facility]LEKSANDR Administration Heparin Sodium (Porcine) 5,000 unit 03/19/18 10:00 03/20/18 09:49 Heparin - SQ 5,000 unit BID [facility] Administration Vancomycin HCl 750 mg/ 250 mls @ 150 mls/hr 03/18/18 10:00 03/19/18 09:48 Dextrose IVPB 150 mls/hr DAILY@1000 [facility] Administration Protocol Ceftriaxone Sodium 1 gm/ 50 mls @ 100 mls/hr 03/18/18 10:00 03/20/18 09:51 Dextrose IVPB 100 mls/hr DAILY [facility] Administration Protocol Levetiracetam 1,500 mg 03/17/18 10:00 03/20/18 09:50 Keppra Oral Solution - GT 1,500 mg BID [facility] Administration Ranitidine HCl 150 mg 03/18/18 11:00 03/20/18 09:52 Zantac Oral Solution - NGT 150 mg BID [facility]AN[facility] Administration Tamsulosin HCl 0.4 mg 03/17/18 10:00 03/20/18 09:49 Flomax - NR 0.4 mg DAILY@0830 [facility] Administration Objective: Vital Signs Period Temp Pulse Resp BP Sys/Don Pulse Ox Last 24 Hr 98.2 F-99.0 F 73-94 18-20 106-142/69-85 96-96 Physical Exam: GENERAL: Awake. Nonverbal. Responds to physical stimuli. HEAD: microcephalic LUNGS: B/l rhonchi, no wheezing HEART: Regular rate and rhythm, normal S1 and S2 ABDOMEN: Soft, nontender, not distended; PEG tube, surrounding skin intact UPPER EXTREMITIES: Contracted. 2+ pulses, warm, well-perfused. No cyanosis. No clubbing. No peripheral edema. LOWER EXTREMITIES: 2+ pulses, warm, well-perfused. No peripheral edema. CBCD WBC 6.6 K/mm3 (4.0-10.0) 03/20/18 07:30 RBC 4.58 M/mm3 (4.00-5.60) 03/20/18 07:30 Hgb 13.1 GM/dL (11.7-16.9) 03/20/18 07:30 Hct 38.7 % (35.4-49) 03/20/18 07:30 MCV 84.6 fl (80-96) 03/20/18 07:30 MCHC 33.9 g/dl (32.0-35.9) 03/20/18 07:30 RDW 14.3 % (11.9-15.9) 03/20/18 07:30 Plt Count 247 K/MM3 (134-434) 03/20/18 07:30 MPV 8.4 fl (7.5-11.1) 03/20/18 07:30 CMP Sodium 136 mmol/L (136-145) 03/18/18 06:20 Potassium 4.0 mmol/L (3.5-5.1) 03/18/18 06:20 Chloride 105 mmol/L (98-107) 03/18/18 06:20 Carbon Dioxide 24 mmol/L (21-32) 03/18/18 06:20 Anion Gap 7 (8-16) L 03/18/18 06:20 BUN 7 mg/dL (7-18) 03/18/18 06:20 Creatinine 0.3 mg/dL (0.7-1.3) L 03/18/18 06:20 Creat Clearance w eGFR > 60 (>60) 03/18/18 06:20 Random Glucose 67 mg/dL (74-106) L 03/18/18 06:20 Calcium 8.6 mg/dL (8.5-10.1) 03/18/18 06:20 Total Bilirubin 0.2 mg/dL (0.2-1.0) 03/18/18 06:20 AST 20 U/L (15-37) D 03/18/18 06:20 ALT 27 U/L (12-78) 03/18/18 06:20 Alkaline Phosphatase 99 U/L (45-117) D 03/18/18 06:20 Total Protein 7.2 g/dl (6.4-8.2) 03/18/18 06:20 Albumin 3.3 g/dl (3.4-5.0) L 03/18/18 06:20 CARDIAC ENZYMES Troponin I < 0.02 ng/ml (0.00-0.05) 03/17/18 05:22 Microbiology 03/17/18 05:00 Blood - Peripheral Venous Blood Culture - Preliminary NO GROWTH OBTAINED AFTER 72 HOURS, INCUBATION TO CONTINUE FOR 2 DAYS. 03/17/18 05:22 Blood - Peripheral Venous Blood Culture - Preliminary NO GROWTH OBTAINED AFTER 72 HOURS, INCUBATION TO CONTINUE FOR 2 DAYS. 03/18/18 10:45 Nasopharyngeal Swab Respiratory Syncytial Virus Ag - Final 03/18/18 10:45 Nasopharyngeal Swab Respiratory Virus (PCR) - Preliminary 03/17/18 06:00 Urine - Urine - Catheterized Urine Culture - Final NO GROWTH OBTAINED Assessment: This is a 27 year old male with PMHx of profound mental retardation , cerebral palsy, microcephaly, seizures, cortical blindness, asthma, who presented to the ED with fever, chest congestion, hypoxia while at [place] Plan: 1) Fever, hypoxia, respiratory distress? - Symptoms reported at [place], patient has been asymptomatic since arrive at [facility] - Lactic acid wnl - Blood cultures with NGTD - F/u RSV Ag - Continue Vancomycin - Continue Ceftriaxone - Appreciate ID consult 2) Seizures - Continue Tegretol - Continue Keppra 3) Hx of DVT - Patient has a history of popliteal DVT diagnosed in 2016 - Doppler here negative for DVT - Will discontinue Lovenox - Outpatient follow-up with hematology 4) F/E/N - Tube feeds - Monitor electrolytes 5) Prophylaxis: - Heparin 5,000u sq bid 6) Dispo: - Requires continued inpatient care Visit type - Emergency Visit Emergency Visit: Yes ED Registration Date: 03/17/18 Care time: The patient presented to the Emergency Department on the above date and was hospitalized for further evaluation of their emergent condition. - New Patient This patient is new to me today: No - Critical Care Critical Care patient: No
[2018-03-20] MEDS: VANCOMYCIN 750 MG in DEXTROSE 5%-WATER - 250 ML IVPB SCH (10:32)
[2018-03-20 12:01] LABS: ALBUMIN 3.5 g/dl (3.4-5.0); ANION GAP 11 (8-16); BLOOD UREA NITROGEN 10 mg/dL (7-18); CALCIUM 8.9 mg/dL (8.5-10.1); CHLORIDE 100 mmol/L (98-107); CO2 25 mmol/L (21-32); CREATININE 0.4 mg/dL (0.7-1.3); GLUCOSE,RANDOM 88 mg/dL (74-106); POTASSIUM 4.3 mmol/L (3.5-5.1); SGOT/AST 12 U/L (15-37); SGPT/ALT 26 U/L (12-78); SODIUM 136 mmol/L (136-145)
[2018-03-20 12:03] LABS: ALK PHOS 110 U/L (45-117); BILIRUBIN,TOTAL 0.2 mg/dL (0.2-1.0); TOT PROT 8.1 g/dl (6.4-8.2)
[2018-03-20] MEDS ORDERED: ACETAMINOPHEN 650 MG/20.3 ML ORAL SOLUTION (CUPS) PO PRN (14:55)
[2018-03-20] MEDS ORDERED: cloNIDine HCL 0.1 MG TABLET PO SCH (22:00)
[2018-03-21] MEDS: BACLOFEN 10 MG TABLET (FP) GT SCH (00:46)
[2018-03-21] MEDS: BACLOFEN 10 MG TABLET (FP) PO SCH ×2 (06:04→11:40)
[2018-03-21] MEDS: clonazePAM 2 MG TABLET GT SCH (06:04)
[2018-03-21] MEDS: ALBUTEROL SO4 2.5/IPRATROPIUM 0.5 INH SOL 3 ML VIAL.NEB. NEB SCH (08:14)
[2018-03-21] MEDS ORDERED: TAMSULOSIN HCL 0.4 MG CAP.ER.24H (FP) NR SCH (08:30)
--- NOTE | 2018-03-21 08:54 | DS ---
Physical Examination Vital Signs: Vital Signs Temperature 99.9 F H 03/21/18 06:53 Pulse Rate 102 H 03/21/18 06:53 Respiratory Rate 20 03/21/18 06:53 Blood Pressure 159/100 03/21/18 06:53 O2 Sat by Pulse Oximetry (%) 96 03/20/18 22:52 Labs: CBC, BMP 03/20/18 07:30 03/20/18 07:30 Discharge Summary Reason For Visit: FEVER W CHILLS,HYPOTENSIVE EPISODE Current Active Problems Fever and chills (Acute) Hypotensive episode (Acute) Lactic acid blood increased (Acute) Condition: Improved - Instructions Diet, Activity, Other Instructions: Please return to the ED with new, persistent, or worsening symptoms. Please follow-up with providers as indicated. Continue Augmentin 875mg bid for 5 days. Please follow-up with your primary care provider within 1 week. Disposition: HOME - Home Medications Comprehensive Discharge Medication List: Ambulatory Orders Acetaminophen [Tylenol] 480 mg GT PRN PRN 01/19/15 Albuterol 2.5/Ipratropium 0.5 [Duoneb -] 1 neb IH QID PRN 01/19/15 Diazepam *Pediatric Rectal* [Diastat *Pediatric Rectal Gel* -] 20 mg RC PRN PRN 01/19/15 levETIRAcetam [Keppra Oral Solution -] 1,500 mg GT BID 01/19/15 Aspirin [ASA -] 81 mg GT DAILY 03/17/18 Carbamazepine [Tegretol -] 280 mg GT BID 03/17/18 Cholecalciferol (Vitamin D3) [Vitamin D3] 2,000 unit GT DAILY 03/17/18 Jevity 100 ml GT DAILY 03/17/18 Omeprazole Magnesium [Prilosec] 20 mg GT DAILY 03/17/18 Tamsulosin HCl [Flomax -] 0.4 mg GT DAILY 03/17/18 cloNIDine HCL [Catapres -] 0.2 mg PO HS 03/17/18 clonazePAM [KlonoPIN -] 1 mg GT TID MDD 1.5 tabs 03/17/18 Albuterol 2.5/Ipratropium 0.5 [Duoneb -] 1 amp NEB RTID amp 03/21/18 Baclofen [Lioresal -] 10 mg PO DAILY@0600,1200 tablet 03/21/18 Baclofen [Lioresal -] 20 mg GT DAILY@1800,0000 tablet 03/21/18
[2018-03-21] MEDS ORDERED: cefTRIAXone SODIUM 1 GM VIAL ONE (09:50)
[2018-03-21] MEDS ORDERED: DEXTROSE 5%-WATER - 50 ML IVPB ONE (09:51)
[2018-03-21] MEDS: CEFTRIAXONE 1 GM in DEXTROSE 5%-WATER - 50 ML IVPB SCH (09:53)
[2018-03-21] MEDS: VANCOMYCIN 750 MG in DEXTROSE 5%-WATER - 250 ML IVPB SCH (09:55)
[2018-03-21] MEDS: levETIRAcetam 500 MG/5 ML ORAL SOLUTION (UNIT-DOSE CUPS) GT SCH (09:56)
[2018-03-21] MEDS: HEPARIN NA (PORCINE) 5,000 UNITS/ML 1ML VIAL SQ SCH (09:57)
[2018-03-21] MEDS: RANITIDINE HCL 150 MG/10 ML UNIT-DOSE NGT SCH (09:57)
[2018-03-21] MEDS: carBAMazepine 200 MG/10 ML UNIT-DOSE CUP GT SCH (09:57)
[2018-03-21] MEDS ORDERED: ASPIRIN 81 MG CHEWABLE TABLETS GT SCH (10:00)
[2018-03-21 12:12] VITALS: BP 105/70; PULSE 101; TEMP 98.7
== END 2018-03-21 12:25 | disposition home or self-care (01) | DRG 137 ==
LOC: JER 04:51 → JERBED 09:09 → UNDOADMOB 09:09 → INTOOBSV 09:09 → JERBED 09:13 → J8W 15:35 → INTOOBSV 03-20 12:05 → OBSVTOIN 03-20 12:05 → UNDODISIN 03-20 14:48
PROVIDERS: ADMIT Hospitalist; ATTEND Registered Nurse
DX: J69.0 Pneumonitis due to inhalation of food and vomit (principal); I95.9 Hypotension, unspecified; R50.9 Fever, unspecified; E87.2 Acidosis; F73 Profound intellectual disabilities; R09.02 Hypoxemia; R53.2 Functional quadriplegia; J98.11 Atelectasis; H47.619 Cortical blindness, unspecified side of brain; Q02 Microcephaly; J45.909 Unspecified asthma, uncomplicated
CPT/HCPCS: 36415; 71045-TC-FY; 71260-TC; 74177-TC; 80053; 81003; 81015; 82803; 83605; 83735; 84100; 84484; 85025; 85610; 85730; 87040; 87086; 87420; 87633; 93005; 93010; 93970-TC; 94640; 99283-25; G0378; J0475; J0735; J1644; J7030; J7620

== ENCOUNTER 2018-07-12 03:19 | Inpatient (IN) | payer OTHER ==
[2018-07-12 03:44] VITALS: BMI 18.8
--- NOTE | 2018-07-12 04:13 | PDOC ---
History of Present Illness - General Chief Complaint: Respiratory Stated Complaint: FEVER, SOB Time Seen by Provider: 07/12/18 04:05 History Source: Patient Exam Limitations: No Limitations - History of Present Illness Initial Comments: 07/12/18 04:13 Mr Lara is a 26 yo M from [facility] with a significant PMHx of mental retardation, dysphagia, s/p peg insertion, seizures, hyponatremia (due to meds) and asthma, averbal and uses a wheel chair at baseline, presenting with an aide from the facility with fever and increased secretions. Temperature at 2am 101.2. Pt noted to be diaphoretic. He was given rectal tylenol and a neb. Pt sent to the ER for further evaluation (+) cough PAST MEDICAL HISTORY: mental retardation, dysphagia, s/p peg insertion, seizures, hyponatremia asthma Social History: Smoking: None Alcohol:None Drugs: None Allergies phenobarbital ROS: LIMITED PE: GENERAL: The patient is in no acute distress, resting comfortably, awake. HEAD: microcephaly EYES: pupils dilated 5 mm bilaterally, EOMI ENT: oropharynx clear without exudates. Moist mucous membranes. NECK: Normal range of motion, supple . LUNGS: rhoncherous breath sounds bilaterally HEART: Tachycardiac, regular rhythme, no murmur appreciated over rhoncherous lung sounds ABDOMEN: Soft, nontender, PEG in place, no surrounding erythema EXTREMITIES: (+) contractures, no edema, no erythema NEUROLOGICAL: at baseline, eyes open, limited extremity movement SKIN: Warm, Dry, normal turgor, no rashes or lesions noted. Past History - Past Medical History Allergies/Adverse Reactions: Allergies Allergy/AdvReac Type Severity Reaction Status Date / Time Beef Containing Products Allergy Unknown Verified 07/12/18 08:20 erythromycin base Allergy Verified 07/12/18 08:43 phenobarbital Allergy Verified 07/12/18 08:19 venom-honey bee Allergy Verified 07/12/18 08:19 [bee venom (honey bee)] Home Medications: Ambulatory Orders Acetaminophen [Tylenol] 480 mg GT PRN PRN 01/19/15 levETIRAcetam [Keppra Oral Solution -] 1,500 mg GT BID 01/19/15 Aspirin [ASA -] 81 mg GT HS 03/17/18 Carbamazepine [Tegretol -] 280 mg GT BID 03/17/18 Cholecalciferol (Vitamin D3) [Vitamin D3] 2,000 unit GT DAILY 03/17/18 Omeprazole Magnesium [Prilosec] 20 mg GT DAILY 03/17/18 Tamsulosin HCl [Flomax -] 0.4 mg GT DAILY 03/17/18 cloNIDine HCL [Catapres -] 0.2 mg PO HS 03/17/18 clonazePAM [KlonoPIN -] 1 mg GT TID 03/17/18 Baclofen [Lioresal -] 10 mg PO DAILY@0600,1200 tablet 03/21/18 Baclofen [Lioresal -] 20 mg GT DAILY@1800,0000 tablet 03/21/18 Bisacodyl 10 mg RC PRN PRN 07/12/18 Budesonide [Pulmicort 0.5 mg Nebulizer -] 1 neb NEB BID 07/12/18 Cholecalciferol (Vitamin D3) [Vitamin D3] 2,000 unit PO HS 07/12/18 Diazepam [Diastat Acudial] 20 mg RC PRN PRN 07/12/18 Ipratropium/Albuterol Sulfate [Iprat-Albut 0.5-3(2.5) mg/3 ml] 3 ml IH QID PRN 07/12/18 Lactose-Reduced Food/Fiber [Jevity 1.5 Hermes Liquid] 948 ml GT BID 07/12/18 Nystatin Ointment [Mycostatin Ointment -] 1 applic TP BID 07/12/18 Triamcinolone 0.1% Cream [Aristocort] 1 applic TP BID 07/12/18 Asthma: Yes COPD: Yes (asthma, aspiration pnuemonia and respiratory distress) Dementia: Yes (mental retardation) GI Disorders: Yes (dysphagia, s/p peg insertion) Psychiatric Problems: (hyponatremia (due to meds)) Seizures: Yes - Surgical History Orthopedic Surgery: (Left Hip Osteotomy) - Immunization History Immunization Up to Date: Yes - Suicide/Smoking/Psychosocial Hx Smoking History: Never smoked Have you smoked in the past 12 months: No Number of Cigarettes Smoked Daily: 0 Cigars Per Day: 0 Information on smoking cessation initiated: No Hx Alcohol Use: No Drug/Substance Use Hx: No Substance Use Type: None Hx Substance Use Treatment: No *Physical Exam - Vital Signs Last Vital Signs Temp Pulse Resp BP Pulse Ox 100.9 F H 127 H 24 H 165/78 98 1113/18 03:20 07/12/18 03:20 07/12/18 03:20 07/12/18 03:20 07/12/18 03:20 ED Treatment Course - LABORATORY CBC & Chemistry Diagram: 07/12/18 07:10 07/12/18 07:10 - RADIOLOGY Radiology Studies Ordered: Category Date Time Status CHEST X-RAY PORTABLE* [RAD] Stat Radiology 07/12/18 04:05 Ordered Medical Decision Making - Medical Decision Making 07/12/18 05:35 CXR seems similar to prior Will cover broadly Labs not reported NS 30 cc/kg bolus ordered Motrin per peg Vanc/Zosyn ordered EKG: Sinus tachycardia rate of 123bpm, Right axis deviation, t wave inversions anteriorly, no st elevations 07/12/18 07:02 HR noted to elevate Pt appears to be staring to the left ? seizure Ativan 2 mg IV ordered Continues to seize Ativan 2mg IV ordered again Keppra 1000mg ordered as well Labs pending Signed out *DC/Admit/Observation/Transfer Diagnosis at time of Disposition: Sepsis Qualifiers: Sepsis type: sepsis due to unspecified organism Qualified Code(s): A41.9 - Sepsis, unspecified organism - Discharge Dispostion Condition at time of disposition: Fair - Referrals - Patient Instructions - Post Discharge Activity
[2018-07-12] MEDS ORDERED: IBUPROFEN 100 MG/5 ML UNIT DOSE CUPS PEG ONE (05:45)
[2018-07-12] MEDS ORDERED: VANCOMYCIN 1,000 MG in DEXTROSE 5%-WATER - 250 ML IVPB ONE (06:25)
[2018-07-12] MEDS ORDERED: PIPERACILLIN/TAZOB 4.5 GM 4.5 GM in DEXTROSE 5%-WATER 100 ML IVPB ONE (06:25)
[2018-07-12] MEDS ORDERED: LORazepam 2 MG/ML SDV VIAL ONE ×3 (06:53→21:07)
[2018-07-12] MEDS ORDERED: VANCOMYCIN 1 GRAM (PRE-DOCKED) 1,000 MG/250 ML BAG IVPB ONE (06:54)
[2018-07-12] MEDS ORDERED: PIPERACILLIN/TAZOB 4.5 GM 4.5 GM/100 ML BAG IVPB ONE (06:54)
[2018-07-12] MEDS ORDERED: levETIRAcetam 500 MG/5 ML INJECTION VIAL IVPB ONE ×2 (06:59→07:09)
[2018-07-12 07:00] LABS: VENOUS PC02 35.8 mmHg (38-52); VENOUS PH 7.39 (7.32-7.42); VENOUS PO2 78.8 mmHg (28-48)
[2018-07-12] MEDS ORDERED: SODIUM CHLORIDE 0.9% 1000 ML INFUS.BAG IV SCH (07:00)
[2018-07-12] MEDS ORDERED: IBUPROFEN 100 MG/5 ML UNIT DOSE CUPS ONE (07:10)
[2018-07-12 07:31] LABS: BASO % 0.2 % (0-2.0); HEMATOCRIT 44.3 % (35.4-49); HEMOGLOBIN 14.7 GM/dL (11.7-16.9); MCH 28.4 pg (25.7-33.7); MCHC 33.2 g/dl (32.0-35.9); MEAN CELL VOLUME 85.4 fl (80-96); MEAN PLT VOLUME 8.3 fl (7.5-11.1); MONO % 6.8 % (3.8-10.2); PLATELET COUNT 284 K/MM3 (134-434); RBC 5.19 M/mm3 (4.00-5.60); RDW 14.7 % (11.9-15.9); WHITE BLOOD COUNT 14.7 K/mm3 (4.0-10.0)
[2018-07-12 08:04] LABS: INR 1.28 (0.83-1.09); PROTHROMBIN TIME (PATIENT) 15.2 SEC (9.7-13.0); URINE APPEARANCE CLEAR; URINE BILIRUBIN NEGATIVE (<2.0 mg/dL); URINE COLOR LTYELLOW; URINE GLUCOSE (UA) NEGATIVE (NEGATIVE); URINE KETONE NEGATIVE (NEGATIVE); URINE LEUK ESTERASE NEGATIVE (NEGATIVE); URINE NITRITE NEGATIVE (NEGATIVE); URINE PROTEIN NEGATIVE (NEGATIVE); URINE UROBILINOGEN NEGATIVE mg/dL (0.2-1.0)
[2018-07-12 08:07] LABS: ACTIVATED PTT 29.2 SECONDS (25.2-36.5)
[2018-07-12 08:19] LABS: ALBUMIN 4.4 g/dl (3.4-5.0); ALK PHOS 150 U/L (45-117); ANION GAP 12 MMOL/L (8-16); BILIRUBIN,TOTAL 0.4 mg/dL (0.2-1); BLOOD UREA NITROGEN 16 mg/dL (7-18); CALCIUM 9.4 mg/dL (8.5-10.1); CHLORIDE 98 mmol/L (98-107); CO2 22 mmol/L (21-32); CREATININE 0.6 mg/dL (0.55-1.3); GLUCOSE,RANDOM 95 mg/dL (74-106); SGOT/AST 27 U/L (15-37); SGPT/ALT 29 U/L (13-61); SODIUM 132 mmol/L (136-145); TOT PROT 9.6 g/dl (6.4-8.2)
--- NOTE | 2018-07-12 12:23 | PDOC ---
*Physical Exam - Vital Signs Last Vital Signs Temp Pulse Resp BP Pulse Ox 99.2 F 75 16 107/74 97 07/12/18 10:54 07/12/18 10:54 07/12/18 10:54 07/12/18 10:54 07/12/18 10:54 - Physical Exam Comments: 07/12/18 12:21 heart rate 100, afebrile, blood pressure within normal limits Nonverbal at baseline Respirations unchanged Abdomen soft and nontender ED Treatment Course - LABORATORY CBC & Chemistry Diagram: 07/12/18 07:10 07/12/18 07:10 - ADDITIONAL ORDERS Additional order review: Laboratory Results 07/12/18 07/12/18 07/12/18 08:25 07:10 07:10 PT with INR INR PTT (Actin FS) VBG pH POC VBG pCO2 POC VBG pO2 Mixed VBG HCO3 Sodium 132 L Potassium 4.0 Chloride 98 Carbon Dioxide 22 Anion Gap 12 BUN 16 Creatinine 0.6 Creat Clearance w eGFR > 60 Random Glucose 95 Lactic Acid 1.9 Calcium 9.4 Total Bilirubin 0.4 AST 27 ALT 29 Alkaline Phosphatase 150 H Troponin I 0.09 H Total Protein 9.6 H Albumin 4.4 Urine Color Urine Appearance Urine pH Ur Specific [place] Urine Protein Urine Glucose (UA) Urine Ketones Urine Blood Urine Nitrite Urine Bilirubin Urine Urobilinogen Ur Leukocyte Esterase 07/12/18 07/12/18 07/12/18 07:10 07:10 06:15 PT with INR 15.20 H INR 1.28 H PTT (Actin FS) 29.2 VBG pH POC VBG pCO2 POC VBG pO2 Mixed VBG HCO3 Sodium Potassium Chloride Carbon Dioxide Anion Gap BUN Creatinine Creat Clearance w eGFR Random Glucose Lactic Acid 2.3 H* Calcium Total Bilirubin AST ALT Alkaline Phosphatase Troponin I Total Protein Albumin Urine Color Ltyellow Urine Appearance Clear Urine pH 8.0 Ur Specific [place] 1.008 L Urine Protein Negative Urine Glucose (UA) Negative Urine Ketones Negative Urine Blood Negative Urine Nitrite Negative Urine Bilirubin Negative Urine Urobilinogen Negative Ur Leukocyte Esterase Negative 07/12/18 04:05 PT with INR INR PTT (Actin FS) VBG pH 7.39 POC VBG pCO2 35.8 L POC VBG pO2 78.8 H D Mixed VBG HCO3 21.4 Sodium Potassium Chloride Carbon Dioxide Anion Gap BUN Creatinine Creat Clearance w eGFR Random Glucose Lactic Acid Calcium Total Bilirubin AST ALT Alkaline Phosphatase Troponin I Total Protein Albumin Urine Color Urine Appearance Urine pH Ur Specific [place] Urine Protein Urine Glucose (UA) Urine Ketones Urine Blood Urine Nitrite Urine Bilirubin Urine Urobilinogen Ur Leukocyte Esterase 07/12/18 08:26 Influenza Types A,B Antigen - Final Nasopharyngeal Swab - Final 07/12/18 07:10 RBC 5.19 MCV 85.4 MCHC 33.2 RDW 14.7 MPV 8.3 Neutrophils % 88.0 H D Lymphocytes % 5.0 L D Monocytes % 6.8 Eosinophils % 0.0 D Basophils % 0.2 - RADIOLOGY Radiology Studies Ordered: Category Date Time Status ABDOMEN & PELVIS CT WITH CONTR [CT] Stat CT Scan 07/12/18 09:37 Completed - Medications Given in the ED: ED Medications Discontinued Medications Generic Name Dose Route Start Last Admin Trade Name Freq PRN Reason Stop Dose Admin Vancomycin HCl 1,000 mg/ 250 mls @ 166.667 mls/hr 07/12/18 06:25 07/12/18 08: 26 Dextrose IVPB 07/12/18 07:54 166.667 mls/hr ONCE ONE Administration Protocol Piperacillin Sod/Tazobactam 100 mls @ 200 mls/hr 07/12/18 06:25 07/12/18 07: 10 Sod 4.5 gm/ Dextrose IVPB 07/12/18 06:54 200 mls/hr ONCE ONE Administration Protocol Ibuprofen 600 mg 07/12/18 05:45 07/12/18 08:26 Motrin Oral Suspension - PEG 07/12/18 05:46 600 mg ONCE ONE Administration Levetiracetam 1,000 mg 07/12/18 06:59 07/12/18 08:26 Keppra Injection - IVPB 07/12/18 07:00 1,000 mg ONCE ONE Administration Lorazepam 2 mg 07/12/18 06:51 07/12/18 06:55 Ativan Injection - IVPUSH 07/12/18 06:52 2 mg ONCE ONE Administration Lorazepam 2 mg 07/12/18 07:01 07/12/18 07:05 Ativan Injection - IVPUSH 07/12/18 07:02 2 mg ONCE ONE Administration Medical Decision Making - Medical Decision Making 07/12/18 12:21 Received signout on this 27-year-old male with severe MRCP from [facility] home with fever, workup initially revealed leukocytosis with slightly elevated lactate, had episode of seizure in the emergency Department controlled with Ativan and Keppra. Urinalysis and chest x-ray were normal, so plan at sign out was to perform CT of the abdomen and pelvis to rule out intra-abdominal pathology given limited exam and to proceed with admission. CT shows no acute pathology, hemodynamically unchanged, lactate improved to 1.9 after fluid resuscitation, no further seizure activity, proceed with admission and sepsis workup. 07/12/18 12:43 accepted to inpatient tele by Dr. Holbrook, signout given to MADHURI Christina. *DC/Admit/Observation/Transfer Diagnosis at time of Disposition: Sepsis Qualifiers: Sepsis type: sepsis due to unspecified organism Qualified Code(s): A41.9 - Sepsis, unspecified organism - Discharge Dispostion Condition at time of disposition: Fair Decision to Admit order: Yes - Referrals - Patient Instructions - Post Discharge Activity
--- NOTE | 2018-07-12 12:41 | HP ---
CHIEF COMPLAINT: shortness of breath, fevers PCP: Stiven Henderson HISTORY OF PRESENT ILLNESS: Patient is a 26 year old male with a significant past medical history of mental retardation, dysphagia, s/p peg insertion, seizures, hyponatremia and asthma. Patient presents to the ED on 07/12/2018, accompanied by his aide for fevers, increased work of breathing and increased weakness. In the ED, initial workup revealed leukocytosis with slightly elevated lactate at 2.3. Patient then had an episode of seizure in the emergency fepartment that lasted apx 1 minute. Seizure controlled with Ativan and Keppra loading dose 1000mg. UA, chest xray CT of the abdomen and pelvis shows no acute pathology. Blood and urine cultures pending. Patient given Zosyn and Vanco in the ED. ER course was notable for: (1) Tmax 100.9 (2) Lactic acid- 2.3>>1.9 (3) CXR- No acute pathology (4) CBC, CMP (5) Vanc and zosyn -given in ED (6) wbc 14.7 (7) ck 2300 (8) trops 0.9, 0.18 Recent Travel: None PAST MEDICAL HISTORY: mental retardation, dysphagia, s/p peg insertion, seizures, hyponatremia (due to meds) asthma PAST SURGICAL HISTORY: Social History: Smoking: n/a Alcohol: n/a Drugs: n/a Family History: Allergies Beef Containing Products Allergy (Unknown, Verified 07/12/18 08:20) erythromycin base Allergy (Verified 07/12/18 08:43) phenobarbital Allergy (Verified 07/12/18 08:19) venom-honey bee [bee venom (honey bee)] Allergy (Verified 07/12/18 08:19) HOME MEDICATIONS: Home Medications Medication Instructions Recorded Acetaminophen [Tylenol] 480 mg GT PRN PRN 01/19/15 levETIRAcetam [Keppra Oral 1,500 mg GT BID 01/19/15 Solution -] Aspirin [ASA -] 81 mg GT HS 03/17/18 Carbamazepine [Tegretol -] 280 mg GT BID 03/17/18 Cholecalciferol (Vitamin D3) 2,000 unit GT DAILY 03/17/18 [Vitamin D3] Omeprazole Magnesium [Prilosec] 20 mg GT DAILY 03/17/18 Tamsulosin HCl [Flomax -] 0.4 mg GT DAILY 03/17/18 cloNIDine HCL [Catapres -] 0.2 mg PO HS 03/17/18 clonazePAM [KlonoPIN -] 1 mg GT TID 03/17/18 Baclofen [Lioresal -] 10 mg PO DAILY@0600,1200 tablet 03/21/18 Baclofen [Lioresal -] 20 mg GT DAILY@1800,0000 tablet 03/21/18 Bisacodyl 10 mg RC PRN PRN 07/12/18 Budesonide [Pulmicort 0.5 mg 1 neb NEB BID 07/12/18 Nebulizer -] Cholecalciferol (Vitamin D3) 2,000 unit PO HS 07/12/18 [Vitamin D3] Diazepam [Diastat Acudial] 20 mg RC PRN PRN 07/12/18 Ipratropium/Albuterol Sulfate 3 ml IH QID PRN 07/12/18 [Iprat-Albut 0.5-3(2.5) mg/3 ml] Lactose-Reduced Food/Fiber [Jevity 948 ml GT BID 07/12/18 1.5 Hermes Liquid] Nystatin Ointment [Mycostatin 1 applic TP BID 07/12/18 Ointment -] Triamcinolone 0.1% Cream 1 applic TP BID 07/12/18 [Aristocort] PHYSICAL EXAMINATION GENERAL: The patient is in no acute distress, mild shortness of breath at rest HEAD: microcephaly ENT: Ears normal, nares patent, oropharynx clear without exudates. Moist mucous membranes. NECK: Normal range of motion, supple without lymphadenopathy, JVD, or masses. LUNGS: mild wheezing on anterior lung bowie, diminished posteriorly HEART:Regular rate and rhythm ABDOMEN: Soft, nontender, normoactive bowel sounds. +peg tube EXTREMITIES: Normal range of motion, no edema. No clubbing or cyanosis. No erythema, or tenderness. NEUROLOGICAL: No focal neurological deficits. MUSCULOSKELETAL: contracted upper and lower ext. SKIN: Warm, Dry, normal turgor, no rashes or lesions noted Vital Signs - 24 hr 07/12/18 07/12/18 07/12/18 03:20 05:00 07:30 Temperature 100.9 F H 99.4 F Pulse Rate 127 H Pulse Rate [ Left Apical] Respiratory 24 H Rate Blood Pressure 165/78 Blood Pressure [Right Arm] O2 Sat by Pulse 98 97 Oximetry (%) 07/12/18 07/12/18 07/12/18 08:50 10:54 12:37 Temperature 99.2 F 99.0 F Pulse Rate Pulse Rate [ 114 H 75 73 Left Apical] Respiratory 22 H 16 16 Rate Blood Pressure Blood Pressure 153/84 107/74 108/65 [Right Arm] O2 Sat by Pulse 97 95 Oximetry (%) Laboratory Results - last 24 hr 07/12/18 07/12/18 07/12/18 04:05 06:15 07:10 WBC 14.7 H RBC 5.19 Hgb 14.7 Hct 44.3 MCV 85.4 MCH 28.4 MCHC 33.2 RDW 14.7 Plt Count 284 MPV 8.3 Absolute Neuts (auto) 13.0 H Neutrophils % 88.0 H D Lymphocytes % 5.0 L D Monocytes % 6.8 Eosinophils % 0.0 D Basophils % 0.2 Nucleated RBC % 0 PT with INR INR PTT (Actin FS) VBG pH 7.39 POC VBG pCO2 35.8 L POC VBG pO2 78.8 H D Mixed VBG HCO3 21.4 Sodium Potassium Chloride Carbon Dioxide Anion Gap BUN Creatinine Creat Clearance w eGFR Random Glucose Lactic Acid 2.3 H* Calcium Total Bilirubin AST ALT Alkaline Phosphatase Troponin I Total Protein Albumin Urine Color Urine Appearance Urine pH Ur Specific Turney Urine Protein Urine Glucose (UA) Urine Ketones Urine Blood Urine Nitrite Urine Bilirubin Urine Urobilinogen Ur Leukocyte Esterase 07/12/18 07/12/18 07/12/18 07:10 07:10 07:10 WBC RBC Hgb Hct MCV MCH MCHC RDW Plt Count MPV Absolute Neuts (auto) Neutrophils % Lymphocytes % Monocytes % Eosinophils % Basophils % Nucleated RBC % PT with INR 15.20 H INR 1.28 H PTT (Actin FS) 29.2 VBG pH POC VBG pCO2 POC VBG pO2 Mixed VBG HCO3 Sodium 132 L Potassium 4.0 Chloride 98 Carbon Dioxide 22 Anion Gap 12 BUN 16 Creatinine 0.6 Creat Clearance w eGFR > 60 Random Glucose 95 Lactic Acid Calcium 9.4 Total Bilirubin 0.4 AST 27 ALT 29 Alkaline Phosphatase 150 H Troponin I Total Protein 9.6 H Albumin 4.4 Urine Color Ltyellow Urine Appearance Clear Urine pH 8.0 Ur Specific Turney 1.008 L Urine Protein Negative Urine Glucose (UA) Negative Urine Ketones Negative Urine Blood Negative Urine Nitrite Negative Urine Bilirubin Negative Urine Urobilinogen Negative Ur Leukocyte Esterase Negative 07/12/18 07/12/18 07:10 08:25 WBC RBC Hgb Hct MCV MCH MCHC RDW Plt Count MPV Absolute Neuts (auto) Neutrophils % Lymphocytes % Monocytes % Eosinophils % Basophils % Nucleated RBC % PT with INR INR PTT (Actin FS) VBG pH POC VBG pCO2 POC VBG pO2 Mixed VBG HCO3 Sodium Potassium Chloride Carbon Dioxide Anion Gap BUN Creatinine Creat Clearance w eGFR Random Glucose Lactic Acid 1.9 Calcium Total Bilirubin AST ALT Alkaline Phosphatase Troponin I 0.09 H Total Protein Albumin Urine Color Urine Appearance Urine pH Ur Specific Turney Urine Protein Urine Glucose (UA) Urine Ketones Urine Blood Urine Nitrite Urine Bilirubin Urine Urobilinogen Ur Leukocyte Esterase ASSESSMENT/PLAN: Patient is a 26 year old male with a significant past medical history of mental retardation, dysphagia, s/p peg insertion, seizures, hyponatremia and asthma. Patient presents to the ED on 07/12/2018, accompanied by his aide for fevers, increased work of breathing and increased weakness. In the ED, initial workup revealed leukocytosis with slightly elevated lactate at 2.3. Patient then had an episode of seizure in the emergency fepartment that lasted apx 1 minute. Seizure controlled with Ativan and Keppra loading dose 1000mg. UA, chest xray CT of the abdomen and pelvis shows no acute pathology. Blood and urine cultures pending. Patient given Zosyn and Vanco in the ED. ID: Sepsis/unclear etiology Presents with leukocytosis, tachycardia, fever and lactic acidosis. Chest xray negative for acute process. mild wheezing on anterior lobes, clear to auscultation on posterior lobes. Chest Ct of abdomen/pelvis without acute pathology Blood and urine cultures pending Possible aspiration pneumoina, has chronic jevity feeds Vanco and zosyn given in the ED Duonebs ordered Card: Elevated troponins EKG with ST and possible inferior infarct, t wave abnormality, non specific changes in st segment in anterior leads Rule out for ACS Echo ordered Cardiology consult Neuro: Seizure, likely provoked due to acute illness, high fever Given Keppra loading dose in the ED Patient on keppra 1500 BID via gtube Ativan 1mg prn for any breakthrough seizure Tylenol IV for fevers Renal elevated CPK @ 2300 with normal bun/creat IVF hydrate and repeat cpk fen NS @ 100/cchr monitor electrolytes hold ngt feeds prophy heparin TID Visit type - Emergency Visit Emergency Visit: Yes ED Registration Date: 07/12/18 Care time: The patient presented to the Emergency Department on the above date and was hospitalized for further evaluation of their emergent condition. - New Patient This patient is new to me today: Yes Date on this admission: 07/12/18 - Critical Care Critical Care patient: No
[2018-07-12] MEDS ORDERED: PIPERACILLIN/TAZOB 3.375 GM 3.375 GM in DEXTROSE 5%-WATER - 50 ML IVPB ONE (14:15)
[2018-07-12] MEDS ORDERED: PIPERACILLIN/TAZOB 3.375 GM 3.375 GM/50 ML BAG IVPB ONE ×2 (15:47→19:48)
--- NOTE | 2018-07-12 16:23 | EKG ---
Test Reason : Blood Pressure : / mmHG Vent. Rate : 123 BPM Atrial Rate : 123 BPM P-R Int : 146 ms QRS Dur : 086 ms QT Int : 312 ms P-R-T Axes : 052 104 038 degrees QTc Int : 446 ms SINUS TACHYCARDIA POSSIBLE LEFT ATRIAL ENLARGEMENT RIGHTWARD AXIS POSSIBLE INFERIOR INFARCT (CITED ON OR BEFORE 19-JAN-2015) T WAVE ABNORMALITY, CONSIDER ANTERIOR ISCHEMIA ABNORMAL ECG WHEN COMPARED WITH ECG OF 17-MAR-2018 05:22, NON-SPECIFIC CHANGE IN ST SEGMENT IN ANTERIOR LEADS T WAVE INVERSION MORE EVIDENT IN ANTERIOR LEADS Confirmed by MD Dayanara, Junior ([id number]) on 07/12/2018 4:23:24 PM Referred By: Confirmed By:Junior Nichole MD
--- NOTE | 2018-07-12 17:31 | CON.ID ---
Consult Consult Specialty:: infectious disease Referred by:: hospitalist Reason for Consultation:: fever, cough - History of Present Illness Chief Complaint: fever, increased secretions, cough History of Present Illness: 27 yo man with cp/mr from [facility] nonverbal admitted with fever and cough not hypoxic admitting cxray unremarkable influenza screen negative wbc 14k LA 2.4 cpk over 1999 - History Source History Provided By: Medical Record, Caregiver Limitations to Obtaining History: Clinical Condition - Past Medical History [employer]: Yes: Seizure, Other (CP?MR) Pulmonary: Yes: Asthma Musculoskeletal: Yes: Other (scoliosis) - Past Surgical History Additional Surgical History: GT, scoliosis repair - Alcohol/Substance Use Hx Alcohol Use: No History of Substance Use: reports: None - Smoking History Smoking history: Never smoked Have you smoked in the past 12 months: No Aproximately how many cigarettes per day: 0 - Social History Usual Living Arrangement: Custodial ADL: Support Services History of Recent Travel: No Home Medications - Allergies Allergies/Adverse Reactions: Allergies Allergy/AdvReac Type Severity Reaction Status Date / Time Beef Containing Products Allergy Unknown Verified 07/12/18 08:20 erythromycin base Allergy Verified 07/12/18 08:43 phenobarbital Allergy Verified 07/12/18 08:19 venom-honey bee Allergy Verified 07/12/18 08:19 [bee venom (honey bee)] - Home Medications Home Medications: Ambulatory Orders Acetaminophen [Tylenol] 480 mg GT PRN PRN 01/19/15 levETIRAcetam [Keppra Oral Solution -] 1,500 mg GT BID 01/19/15 Aspirin [ASA -] 81 mg GT HS 03/17/18 Carbamazepine [Tegretol -] 280 mg GT BID 03/17/18 Cholecalciferol (Vitamin D3) [Vitamin D3] 2,000 unit GT DAILY 03/17/18 Omeprazole Magnesium [Prilosec] 20 mg GT DAILY 03/17/18 Tamsulosin HCl [Flomax -] 0.4 mg GT DAILY 03/17/18 cloNIDine HCL [Catapres -] 0.2 mg PO HS 03/17/18 clonazePAM [KlonoPIN -] 1 mg GT TID 03/17/18 Baclofen [Lioresal -] 10 mg PO DAILY@0600,1200 tablet 03/21/18 Baclofen [Lioresal -] 20 mg GT DAILY@1800,0000 tablet 03/21/18 Bisacodyl 10 mg RC PRN PRN 07/12/18 Budesonide [Pulmicort 0.5 mg Nebulizer -] 1 neb NEB BID 07/12/18 Cholecalciferol (Vitamin D3) [Vitamin D3] 2,000 unit PO HS 07/12/18 Diazepam [Diastat Acudial] 20 mg RC PRN PRN 07/12/18 Ipratropium/Albuterol Sulfate [Iprat-Albut 0.5-3(2.5) mg/3 ml] 3 ml IH QID PRN 07/12/18 Lactose-Reduced Food/Fiber [Jevity 1.5 Hermes Liquid] 948 ml GT BID 07/12/18 Nystatin Ointment [Mycostatin Ointment -] 1 applic TP BID 07/12/18 Triamcinolone 0.1% Cream [Aristocort] 1 applic TP BID 07/12/18 Family Disease History - Family Disease History Family History: Unable to Obtain Review of Systems - Review of Systems Constitutional: reports: Fever Respiratory: reports: Cough Physical Exam Vital Signs: Vital Signs Temperature 99.0 F 07/12/18 12:37 Pulse Rate 105 H 07/12/18 15:32 Respiratory Rate 16 07/12/18 15:32 Blood Pressure 111/70 07/12/18 15:32 O2 Sat by Pulse Oximetry (%) 96 07/12/18 15:32 Constitutional: Yes: No Distress, Calm HENT: Yes: Atraumatic Neck: Yes: Supple Cardiovascular: Yes: Regular Rate and Rhythm Respiratory: Yes: CTA Bilaterally, Diminished (at bases) Gastrointestinal: Yes: Normal Bowel Sounds, Soft, Other (GT) ...Rectal Exam: Yes: Deferred Edema: No Peripheral Pulses WNL: No Labs: CBC, BMP 07/12/18 07:10 07/12/18 07:10 Microbiology 07/12/18 08:26 Nasopharyngeal Swab Influenza Types A,B Antigen - Final 07/12/18 08:26 Nasopharyngeal Swab - Final Imaging - Results Chest X-ray: Report Reviewed, Image Reviewed Cat Scan: Report Reviewed (no acute pathology) Problem List - Problems (1) Pneumonia Code(s): J18.9 - PNEUMONIA, UNSPECIFIED ORGANISM (2) Cerebral palsy Code(s): G80.9 - CEREBRAL PALSY, UNSPECIFIED Qualifiers: Cerebral palsy type: unspecified type Qualified Code(s): G80.9 - Cerebral palsy, unspecified (3) Seizure Code(s): R56.9 - UNSPECIFIED CONVULSIONS Assessment/Plan continue zosyn alone for possible aspiration f/u cultures send RSV antigen and resp virus PCR screen legionella urinary antigen will follow erythromycin allergy
[2018-07-12] MEDS ORDERED: PIPERACILLIN/TAZOB 3.375 GM 3.375 GM in DEXTROSE 5%-WATER - 50 ML IVPB SCH (18:00)
[2018-07-12] MEDS: SODIUM CHLORIDE 1,000 ML IV SCH (18:54)
[2018-07-12] MEDS ORDERED: ALBUTEROL SO4 2.5/IPRATROPIUM 0.5 INH SOL 3 ML VIAL.NEB. NEB ONE ×2 (19:48→19:57)
[2018-07-12] MEDS ORDERED: clonazePAM 0.5 MG TABLET ONE (19:48)
[2018-07-12] MEDS ORDERED: ASPIRIN 81 MG CHEWABLE TABLETS ONE (19:48)
[2018-07-12] MEDS ORDERED: ALBUTEROL SO4 2.5/IPRATROPIUM 0.5 INH SOL 3 ML VIAL.NEB. NEB SCH (20:00)
[2018-07-12] MEDS: PIPERACILLIN/TAZOB 3.375 GM 3.375 GM in DEXTROSE 5%-WATER - 50 ML IVPB SCH (20:10)
[2018-07-12] MEDS: BACLOFEN 10 MG TABLET (FP) GT SCH (20:10)
[2018-07-12] MEDS: methylPREDNISolone NA SUCC 40 MG/1 ML VIAL IVPUSH SCH (20:11)
[2018-07-12] MEDS: levETIRAcetam 500 MG/5 ML ORAL SOLUTION (UNIT-DOSE CUPS) GT SCH (21:19)
[2018-07-12] MEDS: clonazePAM 0.5 MG TABLET GT SCH (21:19)
[2018-07-12] MEDS: carBAMazepine 200 MG/10 ML UNIT-DOSE CUP GT SCH (21:19)
[2018-07-12] MEDS: ASPIRIN 81 MG CHEWABLE TABLETS GT SCH (21:19)
[2018-07-12] MEDS: cloNIDine HCL 0.1 MG TABLET PO SCH (21:19)
[2018-07-12] MEDS: LORazepam 2 MG/ML SDV VIAL IVPUSH PRN (21:27)
[2018-07-12] MEDS ORDERED: SODIUM CHLORIDE 0.9% 500 ML INFUS.BAG IV ONE (22:03)
[2018-07-12] MEDS ORDERED: SODIUM CHLORIDE 1,000 ML IV ONE (22:15)
[2018-07-12] MEDS: ACETAMINOPHEN 1000 MG/100 ML VIAL (NON FORMULARY) IVPB PRN (22:32)
[2018-07-12] MEDS ORDERED: ACETAMINOPHEN INJECTION 100 ML IVPB ONE (22:33)
[2018-07-12] MEDS: TRIAMCINOLONE ACET 0.1% CREAM 15 GM TUBE TP SCH (22:53)
[2018-07-13] MEDS ORDERED: PIPERACILLIN/TAZOBACTAM 3.375 GM VIAL IVPB ONE ×2 (01:15→10:55)
[2018-07-13] MEDS ORDERED: DEXTROSE 5%-WATER - 50 ML IVPB ONE ×3 (01:15→12:33)
[2018-07-13] MEDS: BACLOFEN 10 MG TABLET (FP) GT SCH ×4 (01:34→17:52)
[2018-07-13] MEDS: methylPREDNISolone NA SUCC 40 MG/1 ML VIAL IVPUSH SCH ×3 (01:35→17:52)
[2018-07-13] MEDS: PIPERACILLIN/TAZOB 3.375 GM 3.375 GM in DEXTROSE 5%-WATER - 50 ML IVPB SCH ×2 (01:35→11:03)
[2018-07-13] MEDS: clonazePAM 0.5 MG TABLET GT SCH ×3 (06:58→22:06)
[2018-07-13] MEDS ORDERED: PT OWN MED DRAWER 7, Y5N ONE ×4 (07:10→21:09)
[2018-07-13 09:19] LABS: BASO % 0.2 % (0-2.0); HEMATOCRIT 40.3 % (35.4-49); HEMOGLOBIN 13.3 GM/dL (11.7-16.9); LYMPH % 5.5 % (8-40); MCH 28.6 pg (25.7-33.7); MCHC 33.1 g/dl (32.0-35.9); MEAN CELL VOLUME 86.4 fl (80-96); MEAN PLT VOLUME 7.7 fl (7.5-11.1); NEUT % 92.3 % (42.8-82.8); PLATELET COUNT 262 K/MM3 (134-434); RBC 4.66 M/mm3 (4.00-5.60); RDW 14.6 % (11.9-15.9); WHITE BLOOD COUNT 9.2 K/mm3 (4.0-10.0)
[2018-07-13 09:57] LABS: ALBUMIN 3.7 g/dl (3.4-5.0); ALK PHOS 123 U/L (45-117); ANION GAP 13 MMOL/L (8-16); BILIRUBIN,TOTAL 0.5 mg/dL (0.2-1); BLOOD UREA NITROGEN 10 mg/dL (7-18); CALCIUM 7.9 mg/dL (8.5-10.1); CHLORIDE 105 mmol/L (98-107); CO2 18 mmol/L (21-32); CREATININE 0.4 mg/dL (0.55-1.3); GLUCOSE,RANDOM 66 mg/dL (74-106); MAGNESIUM 2.1 mg/dL (1.8-2.4); PHOSPHOROUS 3.6 mg/dL (2.5-4.9); POTASSIUM 4.5 mmol/L (3.5-5.1); SGOT/AST 63 U/L (15-37); SGPT/ALT 36 U/L (13-61); SODIUM 136 mmol/L (136-145); TOT PROT 8.2 g/dl (6.4-8.2)
[2018-07-13] MEDS ORDERED: FLU VACCINE QUAD 60 MCG/0.5 ML (MDV 18-19) IM ONE (10:00)
--- NOTE | 2018-07-13 10:56 | CON.CARD ---
Consult Consult Specialty:: cardiology - History of Present Illness History of Present Illness: Patient is a 26 year old male with a significant past medical history of mental retardation, dysphagia, s/p peg insertion, seizures, hyponatremia and asthma. Patient presents to the ED on 07/12/2018, accompanied by his aide for fevers, increased work of breathing and increased weakness. In the ED, initial workup revealed leukocytosis with slightly elevated lactate at 2.3. Patient then had an episode of seizure in the emergency fepartment that lasted apx 1 minute. Seizure controlled with Ativan and Keppra loading dose 1000mg. UA, chest xray CT of the abdomen and pelvis shows no acute pathology. Blood and urine cultures pending. Patient given Zosyn and Vanco in the ED. 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[employer]: Yes: Seizure, Other (CP?MR) Pulmonary: Yes: Asthma Musculoskeletal: Yes: Other (scoliosis) - Past Surgical History Additional Surgical History: GT, scoliosis repair - Alcohol/Substance Use Hx Alcohol Use: No History of Substance Use: reports: None - Smoking History Smoking history: Never smoked Have you smoked in the past 12 months: No Aproximately how many cigarettes per day: 0 - Social History Usual Living Arrangement: Senior Care ADL: Support Services History of Recent Travel: No Home Medications - Allergies Allergies/Adverse Reactions: Allergies Allergy/AdvReac Type Severity Reaction Status Date / Time Beef Containing Products Allergy Unknown Verified 07/12/18 08:20 erythromycin base Allergy Verified 07/12/18 08:43 phenobarbital Allergy Verified 07/12/18 08:19 venom-honey bee Allergy Verified 07/12/18 08:19 [bee venom (honey bee)] - Home Medications Home Medications: Ambulatory Orders Acetaminophen [Tylenol] 480 mg GT PRN PRN 01/19/15 levETIRAcetam [Keppra Oral Solution -] 1,500 mg GT BID 01/19/15 Aspirin [ASA -] 81 mg GT HS 03/17/18 Carbamazepine [Tegretol -] 280 mg GT BID 03/17/18 Cholecalciferol (Vitamin D3) [Vitamin D3] 2,000 unit GT DAILY 03/17/18 Omeprazole Magnesium [Prilosec] 20 mg GT DAILY 03/17/18 Tamsulosin HCl [Flomax -] 0.4 mg GT DAILY 03/17/18 cloNIDine HCL [Catapres -] 0.2 mg PO HS 03/17/18 clonazePAM [KlonoPIN -] 1 mg GT TID 03/17/18 Baclofen [Lioresal -] 10 mg PO DAILY@0600,1200 tablet 03/21/18 Baclofen [Lioresal -] 20 mg GT DAILY@1800,0000 tablet 03/21/18 Bisacodyl 10 mg RC PRN PRN 07/12/18 Budesonide [Pulmicort 0.5 mg Nebulizer -] 1 neb NEB BID 07/12/18 Cholecalciferol (Vitamin D3) [Vitamin D3] 2,000 unit PO HS 07/12/18 Diazepam [Diastat Acudial] 20 mg RC PRN PRN 07/12/18 Ipratropium/Albuterol Sulfate [Iprat-Albut 0.5-3(2.5) mg/3 ml] 3 ml IH QID PRN 07/12/18 Lactose-Reduced Food/Fiber [Jevity 1.5 Hermes Liquid] 948 ml GT BID 07/12/18 Nystatin Ointment [Mycostatin Ointment -] 1 applic TP BID 07/12/18 Triamcinolone 0.1% Cream [Aristocort] 1 applic TP BID 07/12/18 Review of Systems Unable to obtain ROS, reason: mental retardation Vital Signs: Vital Signs Temperature 100.2 F H 07/13/18 06:00 Pulse Rate 138 H 07/13/18 10:00 Respiratory Rate 26 H 07/13/18 10:00 Blood Pressure 117/64 07/13/18 10:00 O2 Sat by Pulse Oximetry (%) 97 07/13/18 00:00 Constitutional: Yes: Well Nourished, No Distress, Calm Eyes: Yes: WNL, Conjunctiva Clear, EOM Intact HENT: Yes: WNL, Atraumatic, Normocephalic Neck: Yes: WNL, Supple, Trachea Midline Respiratory: Yes: WNL, Regular, CTA Bilaterally Gastrointestinal: Yes: WNL, Normal Bowel Sounds Renal/: Yes: WNL Cardiovascular: Yes: WNL, Regular Rate and Rhythm Musculoskeletal: Yes: WNL Extremities: Yes: WNL Integumentary: Yes: WNL ...Motor Strength: WNL Psychiatric: Yes: WNL, Alert, Oriented - Other Data Labs, Other Data: CBC, BMP 07/13/18 08:56 07/13/18 08:56 INR, PTT INR 1.28 (0.83-1.09) H 07/12/18 07:10 Troponin, BNP 07/12/18 07/12/18 15:41 23:00 Troponin I 0.18 H 0.14 H Troponin, BNP 07/12/18 07/12/18 15:41 23:00 Troponin I 0.18 H 0.14 H Imaging - Results Chest X-ray: Image Reviewed (no i/e) EKG: Image Reviewed (s tachy) Problem List - Problems (1) Sepsis Code(s): A41.9 - SEPSIS, UNSPECIFIED ORGANISM Qualifiers: Sepsis type: sepsis due to unspecified organism Qualified Code(s): A41.9 - Sepsis, unspecified organism (2) Acute urinary retention Code(s): R33.8 - OTHER RETENTION OF URINE (3) Asthma attack Code(s): J45.901 - UNSPECIFIED ASTHMA WITH (ACUTE) EXACERBATION (4) Atelectasis of right lung Code(s): J98.11 - ATELECTASIS (5) EKG abnormalities Code(s): R94.31 - ABNORMAL ELECTROCARDIOGRAM [ECG] [EKG] (6) Fever and chills Code(s): R50.9 - FEVER, UNSPECIFIED (7) Hypotensive episode Code(s): I95.9 - HYPOTENSION, UNSPECIFIED (8) Hypoxemia Code(s): R09.02 - HYPOXEMIA (9) Lactic acid blood increased Code(s): R79.89 - OTHER SPECIFIED ABNORMAL FINDINGS OF BLOOD CHEMISTRY (10) Lactic acidosis Code(s): E87.2 - ACIDOSIS (11) Pneumonia Code(s): J18.9 - PNEUMONIA, UNSPECIFIED ORGANISM Qualifiers: (12) Pneumonia Code(s): J18.9 - PNEUMONIA, UNSPECIFIED ORGANISM (13) RSV (acute bronchiolitis due to respiratory syncytial virus) Code(s): J21.0 - ACUTE BRONCHIOLITIS DUE TO RESPIRATORY SYNCYTIAL VIRUS (14) Rhinovirus Code(s): B34.8 - OTHER VIRAL INFECTIONS OF UNSPECIFIED SITE (15) Tachycardia Code(s): R00.0 - TACHYCARDIA, UNSPECIFIED (16) Tachypnea Code(s): R06.82 - TACHYPNEA, NOT ELSEWHERE CLASSIFIED (17) Asthma Code(s): J45.909 - UNSPECIFIED ASTHMA, UNCOMPLICATED (18) Cerebral palsy Code(s): G80.9 - CEREBRAL PALSY, UNSPECIFIED Qualifiers: Cerebral palsy type: unspecified type Qualified Code(s): G80.9 - Cerebral palsy, unspecified (19) Seizure Code(s): R56.9 - UNSPECIFIED CONVULSIONS Assessment/Plan sepsis seizures pos tnis most likely due to sepsis plan abx ivf echo will f/u
[2018-07-13] MEDS: SODIUM CHLORIDE 1,000 ML IV SCH ×2 (12:01→17:52)
--- NOTE | 2018-07-13 12:12 | ECHO ---
Name: ALETA MOYA Exam:Adult Echocardiogram Study Date: 07/13/2018 10:02 AM Age: 27 yrs Reason For Study: ELEVATED TROPONINS Height: 60 in Weight: 90 lb BSA: 1.3 m2 MMode/2D Measurements & Calculations IVSd: 0.71 cm Ao root diam: 3.3 cm LVIDd: 4.7 cm LA dimension: 3.1 cm LVIDs: 2.4 cm ACS: 2.1 cm LVPWd: 0.65 cm IVSs: 0.87 cm LVPWs: 1.1 cm EDV(Teich): 99.9 ml ESV(Teich): 20.8 ml Doppler Measurements & Calculations Ao V2 max: 105.9 cm/sec PA V2 max: 153.4 cm/sec Ao max P.5 mmHg PA max P.4 mmHg Ao V2 mean: 78.5 cm/sec PA V2 mean: 100.1 cm/sec Ao mean P.7 mmHg PA mean P.7 mmHg Ao V2 VTI: 14.5 cm PA V2 VTI: 14.8 cm Med Peak E' Mak: 22.6 cm/sec Lat Peak E' Mak: 5.3 cm/sec Procedure A two-dimensional transthoracic echocardiogram with color flow and Doppler was performed. The study w as technically difficult with many images being suboptimal in quality. Left Ventricle The left ventricular size, thickness and function are normal. The left ventricular ejection fraction is normal. Regional wall motion abnormalities cannot be excluded due to limited visualization. Right Ventricle The right ventricle is not well visualized. Atria Normal left and right atrial size and function. Mitral Valve There is mild mitral valve thickening. There is no mitral valve stenosis. There is trace to mild mitr al regurgitation. Tricuspid Valve The tricuspid valve is not well visualized. There is no tricuspid stenosis. There was insufficient TR detected to calculate RV systolic pressure. Aortic Valve The aortic valve is normal in structure and function. No hemodynamically significant valvular aortic stenosis. No aortic regurgitation is present. Pulmonic Valve The pulmonic valve is not well visualized. Great Vessels The aortic root is normal size. Pericardium/Pleura There is no pericardial effusion. Interpretation Summary The study was technically difficult with many images being suboptimal in quality. The left ventricular size, thickness and function are normal The left ventricular ejection fraction is normal. There is trace to mild mitral regurgitation. There was insufficient TR detected to calculate RV systolic pressure. Regional wall motion abnormalities cannot be excluded due to limited visualization. MD aTiwo Shanks 07/13/2018 12:11 PM
[2018-07-13] MEDS: LORazepam 2 MG/ML SDV VIAL IVPUSH PRN (12:22)
[2018-07-13] MEDS: carBAMazepine 200 MG/10 ML UNIT-DOSE CUP GT SCH ×2 (12:23→22:09)
--- NOTE | 2018-07-13 12:23 | PN ---
Progress Note (short form) - Note Progress Note: suspect he is seizing low grade fevers tachycardic this am, grunting tremor- ?seizure elevated cpk Vital Signs Period Temp Pulse Resp BP Sys/Don Pulse Ox Last 24 Hr 98.6 F-100.2 F 73-157 16-28 108-149/60-87 95-100 cor-rrr lungs decreased bs at bases abd soft,+GT ext no edema CBC, BMP 07/13/18 08:56 07/13/18 08:56 Microbiology 07/12/18 18:30 Urine For Antigen Detection Legionella Antigen - Preliminary- negative 07/12/18 18:30 Urine For Antigen Detection Streptococcus pneumoniae Antigen (M - Preliminary-negative 07/12/18 07:10 Urine - Urine - Catheterized Urine Culture - Final NO GROWTH OBTAINED 07/12/18 06:25 Blood - Peripheral Venous Blood Culture - Preliminary NO GROWTH OBTAINED AFTER 24 HOURS, INCUBATION TO CONTINUE FOR 4 DAYS. 07/12/18 06:30 Blood - Peripheral Venous Blood Culture - Preliminary NO GROWTH OBTAINED AFTER 24 HOURS, INCUBATION TO CONTINUE FOR 4 DAYS. 07/12/18 08:26 Nasopharyngeal Swab Influenza Types A,B Antigen - Final 07/12/18 08:26 Nasopharyngeal Swab - Final a/p seizures rhabdomyolysis ?bronchitis- bacterial versus viral d/c kirk fisher for now Problem List - Problems (1) Pneumonia Code(s): J18.9 - PNEUMONIA, UNSPECIFIED ORGANISM (2) Cerebral palsy Code(s): G80.9 - CEREBRAL PALSY, UNSPECIFIED Qualifiers: Cerebral palsy type: unspecified type Qualified Code(s): G80.9 - Cerebral palsy, unspecified (3) Seizure Code(s): R56.9 - UNSPECIFIED CONVULSIONS
[2018-07-13] MEDS: TRIAMCINOLONE ACET 0.1% CREAM 15 GM TUBE TP SCH ×2 (12:24→22:08)
[2018-07-13] MEDS: levETIRAcetam 500 MG/5 ML ORAL SOLUTION (UNIT-DOSE CUPS) GT SCH ×2 (12:24→22:09)
--- NOTE | 2018-07-13 12:25 | PN ---
Progress Note (short form) - Note Progress Note: PULMONARY CONSULTATION DICTATED 07/13/18 IMP ACUTE RESPIRATORY DISTRESS ? PNEUMONIA ? ASPIRATION ACUTE BRONCHITIS ASTHMA SEIZURES CEREBRAL PALSY MENTAL RETARDATION PLAN IV STEROIDS INHALED BRONCHODILATORS O2 ABX PER ID SEIZURE PRECAUTIONS ASPIRATION PRECAUTIONS ORAL PHARYNGEAL SUCTIONING DR WALSH
[2018-07-13] MEDS ORDERED: LORazepam 2 MG/ML SDV VIAL IVPUSH PRN (12:27)
[2018-07-13] MEDS ORDERED: cefTRIAXone SODIUM 1 GM VIAL ONE (12:33)
[2018-07-13] MEDS: CEFTRIAXONE 1 GM in DEXTROSE 5%-WATER - 50 ML IVPB SCH (12:36)
[2018-07-13] MEDS: METOPROLOL TARTRATE 5 MG/5 ML VIAL IVPUSH PRN ×2 (12:45→17:58)
[2018-07-13] MEDS: ALBUTEROL SO4 2.5/IPRATROPIUM 0.5 INH SOL 3 ML VIAL.NEB. NEB SCH ×3 (13:57→20:20)
[2018-07-13 14:15] LABS: ACANTHOCYTES 0; ANISOCYTOSIS 0; HELMET CELLS 0; HOWELL-JOLLY BODIES 0; MACROCYTOSIS 0; OVALOCYTE 0; PLATELET ESTIMATE NORMAL; ROULEAU 0; SICKELED CELLS 0; TARGET CELLS 0; TEAR DROP CELLS 0; TOXIC GRANULATION 0
--- NOTE | 2018-07-13 14:36 | PN ---
Physical Exam: SUBJECTIVE: Patient seen and examined at the bedside. non verbal at beside. grunting, staring to the right. some shaking of upper extremities noted. may be a seizure. having fevers, feels warm to touch. OBJECTIVE: patient had a seizure on admission, and likely had one when I was examining him. Will consult neurology on keppra, tegretol, baclophen, ativan prn for breakthrough seizures. further recommendations appreciated. rhabdomyolysis 2340->3324 tachycardia, given lopressor 5mg @ 1245, ekg now, start on lopressor 25mg bid Vital Signs Period Temp Pulse Resp BP Sys/Don Pulse Ox Last 24 Hr 98.6 F-100.2 F 82-159 16-28 108-149/60-87 96-100 GENERAL: The patient is in no acute distress, mild shortness of breath at rest HEAD: microcephaly ENT: Ears normal, nares patent, oropharynx clear without exudates. Moist mucous membranes. NECK: Normal range of motion, supple without lymphadenopathy, JVD, or masses. LUNGS: mild wheezing on anterior lung bowie, diminished posteriorly HEART:Regular rate and rhythm ABDOMEN: Soft, nontender, normoactive bowel sounds. +peg tube EXTREMITIES: Normal range of motion, no edema. No clubbing or cyanosis. No erythema, or tenderness. NEUROLOGICAL: seizure on exam, given ativan MUSCULOSKELETAL: contracted upper and lower ext. SKIN: Warm, Dry, normal turgor, no rashes or lesions noted Laboratory Results - last 24 hr 07/12/18 07/12/18 07/12/18 15:41 18:30 23:00 WBC RBC Hgb Hct MCV MCH MCHC RDW Plt Count MPV Absolute Neuts (auto) Neutrophils % Neutrophils % (Manual) Band Neutrophils % Lymphocytes % Lymphocytes % (Manual) Monocytes % Monocytes % (Manual) Eosinophils % Eosinophils % (Manual) Basophils % Basophils % (Manual) Myelocytes % (Man) Promyelocytes % (Man) Blast Cells % (Manual) Nucleated RBC % Metamyelocytes Hypochromia Toxic Granulation Dohle Bodies Platelet Estimate Polychromasia Poikilocytosis Basophilic Stippling Anisocytosis Microcytosis Macrocytosis Spherocytes Sickle Cells Target Cells Tear Drop Cells Ovalocytes Stomatocytes Helmet Cells [place] Bodies [place] Rings Christina Cells Acanthocytes (Spur) Rouleaux Fragmented RBCs Schistocytes Sodium Potassium Chloride Carbon Dioxide Anion Gap BUN Creatinine Creat Clearance w eGFR POC Glucometer Random Glucose Calcium Phosphorus Magnesium Total Bilirubin AST ALT Alkaline Phosphatase Creatine Kinase 2340 H Creatine Kinase Index 0.3 CK-MB (CK-2) 7.7 H Troponin I 0.18 H 0.14 H Total Protein Albumin RSV Rapid Negative 07/13/18 07/13/18 07/13/18 06:16 08:56 08:56 WBC 9.2 RBC 4.66 Hgb 13.3 Hct 40.3 MCV 86.4 MCH 28.6 MCHC 33.1 RDW 14.6 Plt Count 262 MPV 7.7 Absolute Neuts (auto) 8.5 H Neutrophils % 92.3 H Neutrophils % (Manual) 95.0 H Band Neutrophils % 0.0 Lymphocytes % 5.5 L Lymphocytes % (Manual) 3.0 L Monocytes % 2.0 L Monocytes % (Manual) 2 L Eosinophils % 0.0 Eosinophils % (Manual) 0.0 Basophils % 0.2 Basophils % (Manual) 0.0 Myelocytes % (Man) 0 Promyelocytes % (Man) 0 Blast Cells % (Manual) 0 Nucleated RBC % 0 Metamyelocytes 0 Hypochromia 0 Toxic Granulation 0 Dohle Bodies 0 Platelet Estimate Normal Polychromasia 0 Poikilocytosis 0 Basophilic Stippling 0 Anisocytosis 0 Microcytosis 0 Macrocytosis 0 Spherocytes 0 Sickle Cells 0 Target Cells 0 Tear Drop Cells 0 Ovalocytes 0 Stomatocytes 0 Helmet Cells 0 [place] Bodies 0 [place] Rings 0 Boelus Cells 0 Acanthocytes (Spur) 0 Rouleaux 0 Fragmented RBCs 0 Schistocytes 0 Sodium 136 Potassium 4.5 Chloride 105 Carbon Dioxide 18 L Anion Gap 13 BUN 10 Creatinine 0.4 L Creat Clearance w eGFR > 60 POC Glucometer 79 Random Glucose 66 L Calcium 7.9 L Phosphorus 3.6 Magnesium 2.1 Total Bilirubin 0.5 AST 63 H ALT 36 Alkaline Phosphatase 123 H Creatine Kinase 3324 H Creatine Kinase Index 0.2 CK-MB (CK-2) 9.4 H Troponin I Total Protein 8.2 Albumin 3.7 RSV Rapid 07/13/18 14:05 WBC RBC Hgb Hct MCV MCH MCHC RDW Plt Count MPV Absolute Neuts (auto) Neutrophils % Neutrophils % (Manual) Band Neutrophils % Lymphocytes % Lymphocytes % (Manual) Monocytes % Monocytes % (Manual) Eosinophils % Eosinophils % (Manual) Basophils % Basophils % (Manual) Myelocytes % (Man) Promyelocytes % (Man) Blast Cells % (Manual) Nucleated RBC % Metamyelocytes Hypochromia Toxic Granulation Dohle Bodies Platelet Estimate Polychromasia Poikilocytosis Basophilic Stippling Anisocytosis Microcytosis Macrocytosis Spherocytes Sickle Cells Target Cells Tear Drop Cells Ovalocytes Stomatocytes Helmet Cells [place]-Jewett Bodies [place] Rings Boelus Cells Acanthocytes (Spur) Rouleaux Fragmented RBCs Schistocytes Sodium Potassium Chloride Carbon Dioxide Anion Gap BUN Creatinine Creat Clearance w eGFR POC Glucometer 86 Random Glucose Calcium Phosphorus Magnesium Total Bilirubin AST ALT Alkaline Phosphatase Creatine Kinase Creatine Kinase Index CK-MB (CK-2) Troponin I Total Protein Albumin RSV Rapid Active Medications Generic Name Dose Route Start Last Admin Trade Name Freq PRN Reason Stop Dose Admin Acetaminophen 1,000 mg 07/12/18 17:31 07/12/18 22:32 Ofirmev Injection - IVPB 1,000 mg Q6H PRN Administration FEVER Albuterol/Ipratropium 1 amp 07/13/18 12:45 07/13/18 13:57 Duoneb - NEB 1 amp RQ4H ALEKSANDR Administration Aspirin 81 mg 07/12/18 22:00 07/12/18 21:19 Asa - GT 81 mg HS ALEKSANDR Administration Baclofen 10 mg 07/13/18 06:00 07/13/18 12:36 Lioresal - GT 10 mg DAILY@0600,1200 ALEKSANDR Administration Baclofen 20 mg 07/12/18 18:00 07/13/18 01:34 Lioresal - GT 20 mg DAILY@1800,0000 ALEKSANDR Administration Carbamazepine 280 mg 07/12/18 22:00 07/13/18 12:23 Tegretol Oral Suspension - GT 280 mg BID ALEKSANDR Administration Clonazepam 1 mg 07/12/18 22:00 07/13/18 06:58 Klonopin - GT 1 mg TID ALEKSANDR Administration Clonidine 0.2 mg 07/12/18 22:00 07/12/18 21:19 Catapres - PO Not Given HS ALEKSANDR Sodium Chloride 1,000 mls @ 100 mls/hr 07/12/18 17:45 07/13/18 12:01 Normal Saline - IV 100 mls/hr ASDIR ALEKSANDR Administration Ceftriaxone Sodium 1 gm/ 50 mls @ 100 mls/hr 07/13/18 12:45 07/13/18 12:36 Dextrose IVPB 100 mls/hr DAILY ALEKSANDR Administration Protocol Levalbuterol HCl 0.31 mg 07/13/18 08:00 Xopenex IH RTID ALEKSANDR Levetiracetam 1,500 mg 07/12/18 22:00 07/13/18 12:24 Keppra Oral Solution - GT 1,500 mg BID ALEKSANDR Administration Lorazepam 2 mg 07/13/18 12:27 Ativan Injection - IVPUSH Q6H PRN seizures Methylprednisolone Sodium Succinate 40 mg 07/12/18 20:00 07/13/18 11:03 Solu-Medrol - IVPUSH 40 mg Q8H-IV ALEKSANDR Administration Metoprolol Tartrate 5 mg 07/13/18 12:29 07/13/18 12:45 Lopressor Injection - IVPUSH 5 mg Q4H PRN Administration TACHYCARDIA Triamcinolone Acetonide 1 applic 07/12/18 22:00 07/13/18 12:24 Aristocort 0.1% Cream - TP Not Given BID ALEKSANDR ASSESSMENT/PLAN: Patient is a 26 year old male with a significant past medical history of mental retardation, dysphagia, s/p peg insertion, seizures, hyponatremia and asthma. Patient presents to the ED on 07/12/2018, accompanied by his aide for fevers, increased work of breathing and increased weakness. problem list ------- profound mental retardation microcephaly dysphagia with gt seizures hyponatremia asthma aspiration pneumonia ------ ID: Sepsis/unclear etiology. Presents with leukocytosis 14.2 now trending down within normal range Still with tachycardia, fevers, lactic acidosis now resolved Chest xray negative for acute process. mild wheezing on anterior lobes, clear to auscultation on posterior lobes. Chest Ct of abdomen/pelvis without acute pathology Blood and urine cultures pending Possible aspiration pneumoina, has chronic jevity feeds-which are on hold Vanco and zosyn given in the ED, now on ceftriaxone Duonebs ordered Card: Elevated troponins EKG with ST and possible inferior infarct, t wave abnormality, non specific changes in st segment in anterior leads Rule out for ACS, trops flat trending Echo reviewed Cardiology consulted Tachycardia ekg with sinus tachycardia, heart rate elevated 140-160s started on lopressor 5mg prn and lopressor 25mg bid Neuro: Seizures, likely provoked due to acute illness, high fevers Given Keppra loading dose in the ED, started on home dose of keppra 1500 BID via gtube Ativan 2mg prn for any breakthrough seizure on keppra, tegretol, baclophen Tylenol IV for fevers neurology consulted Renal rhabdo elevated CPK 2300>3200 with normal bun/creat IVF hydrate and repeat cpk in a.m. fen NS @ 100/cchr monitor electrolytes hold ngt feeds dispositon. full code. Visit type - Emergency Visit Emergency Visit: Yes ED Registration Date: 07/12/18 Care time: The patient presented to the Emergency Department on the above date and was hospitalized for further evaluation of their emergent condition. - New Patient This patient is new to me today: No - Critical Care Critical Care patient: No - Discharge Referral Referred to [facility] Med P.C.: No
--- NOTE | 2018-07-13 18:11 | CON.NEURO ---
Consult Consult Specialty:: Ramona Referred by:: PCP - History of Present Illness History of Present Illness: 27 years old manw ith Motor CP Spasicticity Dysphagia Asthma MR According to [facility] nurse Patient will have bilateral arma nd leg shaking with no gaze devaition Tonic movements Patient came in with fever Seen by ID and pulmonary - History Source History Provided By: Patient Limitations to Obtaining History: No Limitations - Past Medical History [employer]: Yes: Seizure, Other (CP?MR) Pulmonary: Yes: Asthma Musculoskeletal: Yes: Other (scoliosis) - Past Surgical History Additional Surgical History: GT, scoliosis repair - Alcohol/Substance Use Hx Alcohol Use: No History of Substance Use: reports: None - Smoking History Smoking history: Never smoked Have you smoked in the past 12 months: No Aproximately how many cigarettes per day: 0 - Social History Usual Living Arrangement: Prison ADL: Support Services History of Recent Travel: No Home Medications - Allergies Allergies/Adverse Reactions: Allergies Allergy/AdvReac Type Severity Reaction Status Date / Time Beef Containing Products Allergy Unknown Verified 07/12/18 08:20 erythromycin base Allergy Verified 07/12/18 08:43 phenobarbital Allergy Verified 07/12/18 08:19 venom-honey bee Allergy Verified 07/12/18 08:19 [bee venom (honey bee)] - Home Medications Home Medications: Ambulatory Orders Acetaminophen [Tylenol] 480 mg GT PRN PRN 01/19/15 levETIRAcetam [Keppra Oral Solution -] 1,500 mg GT BID 01/19/15 Aspirin [ASA -] 81 mg GT HS 03/17/18 Carbamazepine [Tegretol -] 280 mg GT BID 03/17/18 Cholecalciferol (Vitamin D3) [Vitamin D3] 2,000 unit GT DAILY 03/17/18 Omeprazole Magnesium [Prilosec] 20 mg GT DAILY 03/17/18 Tamsulosin HCl [Flomax -] 0.4 mg GT DAILY 03/17/18 cloNIDine HCL [Catapres -] 0.2 mg PO HS 03/17/18 clonazePAM [KlonoPIN -] 1 mg GT TID 03/17/18 Baclofen [Lioresal -] 10 mg PO DAILY@0600,1200 tablet 03/21/18 Baclofen [Lioresal -] 20 mg GT DAILY@1800,0000 tablet 03/21/18 Bisacodyl 10 mg RC PRN PRN 07/12/18 Budesonide [Pulmicort 0.5 mg Nebulizer -] 1 neb NEB BID 07/12/18 Cholecalciferol (Vitamin D3) [Vitamin D3] 2,000 unit PO HS 07/12/18 Diazepam [Diastat Acudial] 20 mg RC PRN PRN 07/12/18 Ipratropium/Albuterol Sulfate [Iprat-Albut 0.5-3(2.5) mg/3 ml] 3 ml IH QID PRN 07/12/18 Lactose-Reduced Food/Fiber [Jevity 1.5 Hermes Liquid] 948 ml GT BID 07/12/18 Nystatin Ointment [Mycostatin Ointment -] 1 applic TP BID 07/12/18 Triamcinolone 0.1% Cream [Aristocort] 1 applic TP BID 07/12/18 Family Disease History - Family Disease History Family History: Unable to Obtain Review of Systems Unable to obtain ROS, reason: ? Physical Exam-Neuro Vital Signs: Vital Signs Temperature 99.4 F 07/13/18 14:05 Pulse Rate 138 H 07/13/18 17:58 Respiratory Rate 24 H 07/13/18 14:05 Blood Pressure 112/64 07/13/18 17:58 O2 Sat by Pulse Oximetry (%) 97 07/13/18 09:00 Constitutional: Yes: Well Nourished Neck: Yes: WNL Labs: CBC, BMP 07/13/18 08:56 07/13/18 08:56 INR, PTT INR 1.28 (0.83-1.09) H 07/12/18 07:10 - Neuro Exam Level Of Consciousness: Yes: Alert Eyes: Yes: PERRLA Speech: Other Dominant Hand: Right Cranial Nerves II-XII Intact: Yes Gag: Present DTR's: 3+ Left Bicep, 3+ Right Bicep, 3+ Right Tricep, 3+ Left Brachioradialis, 3+ Left Achilles Motor Strength: 0/5: Left Arm (incraesed tone with contracutre ) Problem List - Problems (1) Seizure Assessment/Plan: Sz wont be induced with stimulus Seizure precautions Tegretol level Ativan prn meet [facility] same Code(s): R56.9 - UNSPECIFIED CONVULSIONS
[2018-07-13] MEDS: ACETAMINOPHEN 1000 MG/100 ML VIAL (NON FORMULARY) IVPB PRN (21:23)
[2018-07-13] MEDS ORDERED: METOPROLOL TARTRATE 25 MG TABLET (FP) GT SCH (22:00)
[2018-07-13] MEDS: METOPROLOL TARTRATE 50 MG TABLET (FP) GT SCH (22:06)
[2018-07-13] MEDS: cloNIDine HCL 0.1 MG TABLET PO SCH (22:06)
[2018-07-13] MEDS: ASPIRIN 81 MG CHEWABLE TABLETS GT SCH (22:06)
[2018-07-14] MEDS: ALBUTEROL SO4 2.5/IPRATROPIUM 0.5 INH SOL 3 ML VIAL.NEB. NEB SCH ×7 (00:09→23:00)
[2018-07-14] MEDS: BACLOFEN 10 MG TABLET (FP) GT SCH ×4 (01:11→17:27)
[2018-07-14] MEDS: methylPREDNISolone NA SUCC 40 MG/1 ML VIAL IVPUSH SCH ×3 (01:12→17:27)
[2018-07-14] MEDS: clonazePAM 0.5 MG TABLET GT SCH ×3 (07:08→22:48)
[2018-07-14 08:44] LABS: HEMATOCRIT 39.6 % (35.4-49); HEMOGLOBIN 12.8 GM/dL (11.7-16.9); MCH 28.3 pg (25.7-33.7); MCHC 32.5 g/dl (32.0-35.9); MEAN CELL VOLUME 87.2 fl (80-96); MEAN PLT VOLUME 7.7 fl (7.5-11.1); PLATELET COUNT 271 K/MM3 (134-434); RBC 4.54 M/mm3 (4.00-5.60); RDW 14.5 % (11.9-15.9); WHITE BLOOD COUNT 9.4 K/mm3 (4.0-10.0)
[2018-07-14 08:45] LABS: BASO % 0.1 % (0-2.0); LYMPH % 9.6 % (8-40); MONO % 5.2 % (3.8-10.2); NEUT % 85.1 % (42.8-82.8)
[2018-07-14] MEDS ORDERED: PT OWN MED DRAWER 7, Y5N ONE ×3 (09:40→22:45)
[2018-07-14] MEDS ORDERED: DEXTROSE 5%-WATER - 50 ML IVPB ONE (09:41)
[2018-07-14] MEDS ORDERED: cefTRIAXone SODIUM 1 GM VIAL ONE (09:41)
[2018-07-14] MEDS: SODIUM CHLORIDE 1,000 ML IV SCH ×2 (09:43→13:39)
[2018-07-14] MEDS: METOPROLOL TARTRATE 50 MG TABLET (FP) GT SCH ×2 (09:45→22:49)
[2018-07-14] MEDS: levETIRAcetam 500 MG/5 ML ORAL SOLUTION (UNIT-DOSE CUPS) GT SCH ×2 (09:46→22:48)
[2018-07-14] MEDS: CEFTRIAXONE 1 GM in DEXTROSE 5%-WATER - 50 ML IVPB SCH (09:47)
[2018-07-14 09:48] LABS: ALBUMIN 3.5 g/dl (3.4-5.0); ALK PHOS 116 U/L (45-117); ANION GAP 13 MMOL/L (8-16); BILIRUBIN,TOTAL 0.4 mg/dL (0.2-1); BLOOD UREA NITROGEN 12 mg/dL (7-18); CALCIUM 8.2 mg/dL (8.5-10.1); CHLORIDE 108 mmol/L (98-107); CO2 16 mmol/L (21-32); CREATININE 0.5 mg/dL (0.55-1.3); GLUCOSE,RANDOM 77 mg/dL (74-106); POTASSIUM 4.4 mmol/L (3.5-5.1); SGOT/AST 72 U/L (15-37); SGPT/ALT 39 U/L (13-61); SODIUM 138 mmol/L (136-145); TOT PROT 8.2 g/dl (6.4-8.2)
[2018-07-14] MEDS: TRIAMCINOLONE ACET 0.1% CREAM 15 GM TUBE TP SCH ×2 (09:50→22:38)
[2018-07-14] MEDS: carBAMazepine 200 MG/10 ML UNIT-DOSE CUP GT SCH ×2 (09:50→22:49)
[2018-07-14] MEDS: HEPARIN NA (PORCINE) 5,000 UNITS/ML 1ML VIAL SQ SCH ×2 (10:19→23:34)
--- NOTE | 2018-07-14 11:41 | PN ---
Progress Note, Physician Chief Complaint: Pt opens eyes to the light; regular breathing. History of Present Illness: Mr Lara is a 26 yo M from [facility] with a significant PMHx of cerebral palsy, mental retardation, dysphagia, s/p peg insertion, seizures, hyponatremia (due to meds) and asthma, averbal and uses a wheel chair at baseline, presenting with an aide from the facility with fever and increased secretions. Temperature at 2am 101.2. Pt noted to be diaphoretic. He was given rectal tylenol and a neb. Pt sent to the ER for further evaluation (+) cough Social History: Smoking: None Alcohol:None Drugs: None - Current Medication List Current Medications: Active Medications Acetaminophen (Ofirmev Injection -) 1,000 mg IVPB Q6H PRN PRN Reason: FEVER Last Admin: 07/13/18 21:23 Dose: 1,000 mg Albuterol/Ipratropium (Duoneb -) 1 amp NEB RQ4H ALEKSANDR Last Admin: 07/14/18 08:10 Dose: 1 amp Aspirin (Asa -) 81 mg GT HS ALEKSANDR Last Admin: 07/13/18 22:06 Dose: 81 mg Baclofen (Lioresal -) 10 mg GT DAILY@0600,1200 ALEKSANDR Last Admin: 07/14/18 07:09 Dose: 10 mg Baclofen (Lioresal -) 20 mg GT DAILY@1800,0000 [facility] Last Admin: 07/14/18 01:11 Dose: 20 mg Carbamazepine (Tegretol Oral Suspension -) 280 mg GT BID ALEKSANDR Last Admin: 07/14/18 09:50 Dose: 280 mg Clonazepam (Klonopin -) 1 mg GT TID ALEKSANDR Last Admin: 07/14/18 07:08 Dose: 1 mg Clonidine (Catapres -) 0.2 mg PO HS ALEKSANDR Last Admin: 07/13/18 22:06 Dose: 0.2 mg Heparin Sodium (Porcine) (Heparin -) 5,000 unit SQ BID ALEKSANDR Last Admin: 07/14/18 10:19 Dose: 5,000 unit Sodium Chloride (Normal Saline -) 1,000 mls @ 100 mls/hr IV ASDIR ALEKSANDR Last Admin: 07/14/18 09:43 Dose: 100 mls/hr Ceftriaxone Sodium 1 gm/ (Dextrose) 50 mls @ 100 mls/hr IVPB DAILY ALEKSANDR; Protocol Last Admin: 07/14/18 09:47 Dose: 100 mls/hr Levalbuterol HCl (Xopenex) 0.31 mg IH RTID ALEKSANDR Levetiracetam (Keppra Oral Solution -) 1,500 mg GT BID [facility] Last Admin: 07/14/18 09:46 Dose: 1,500 mg Lorazepam (Ativan Injection -) 2 mg IVPUSH Q6H PRN PRN Reason: seizures Methylprednisolone Sodium Succinate (Solu-Medrol -) 40 mg IVPUSH Q8H-IV ALEKSANDR Last Admin: 07/14/18 09:47 Dose: 40 mg Metoprolol Tartrate (Lopressor Injection -) 5 mg IVPUSH Q4H PRN PRN Reason: TACHYCARDIA Last Admin: 07/13/18 17:58 Dose: 5 mg Metoprolol Tartrate (Lopressor -) 50 mg GT BID [facility] Last Admin: 07/14/18 09:45 Dose: 50 mg Triamcinolone Acetonide (Aristocort 0.1% Cream -) 1 applic TP BID [facility] Last Admin: 07/14/18 09:50 Dose: Not Given - Objective Vital Signs: Vital Signs Temperature 99.0 F 07/14/18 08:53 Pulse Rate 117 H 07/14/18 08:53 Respiratory Rate 26 H 07/14/18 08:53 Blood Pressure 109/52 L 07/14/18 08:53 O2 Sat by Pulse Oximetry (%) 97 07/13/18 21:00 Constitutional: Yes: Other (upper limbs contracted) Eyes: Yes: WNL HENT: Yes: Other Neck: Yes: Decreased ROM Cardiovascular: Yes: Tachycardia, S1, S2 Respiratory: Yes: Poor Air Entry, Tachypnea Gastrointestinal: Yes: Other (PEG) Genitourinary: No: Anuria Musculoskeletal: Yes: Joint Stiffness, Muscle Weakness Extremities: Yes: Shortened, Other (contracted UEs) Edema: No Peripheral Pulses WNL: Yes Integumentary: Yes: Other Neurological: Yes: Other (cerebral palsy) Psychiatric: Yes: Other (mental retardation) Labs: CBC, BMP 07/14/18 08:10 07/14/18 08:10 INR, PTT INR 1.28 (0.83-1.09) H 07/12/18 07:10 Abnormal Lab Results 07/14/18 07/14/18 07/14/18 08:10 08:10 08:10 Neutrophils % 85.1 H Chloride 108 H Carbon Dioxide 16 L Creatinine 0.5 L Calcium 8.2 L AST 72 H Creatine Kinase 3002 H CK-MB (CK-2) 10.6 H TSH 0.25 L D Carbamazepine 12.8 H - ....Imaging Chest X-ray: Image Reviewed (?new right basal infiltrate; elevated Rt hemidiaphragm) Ultrasound: Report Reviewed (ECHO: limited study; normal LVEF) Problem List - Problems (1) Sepsis Assessment/Plan: ?PNA Initially leukocytotic. On antibiotics and antipyretics; f/u c/s. Code(s): A41.9 - SEPSIS, UNSPECIFIED ORGANISM Qualifiers: Sepsis type: sepsis due to unspecified organism Qualified Code(s): A41.9 - Sepsis, unspecified organism (2) Atelectasis of right lung Code(s): J98.11 - ATELECTASIS (3) EKG abnormalities Assessment/Plan: body habitus makes placement of precordial leads, and subsequent interpretation , difficult. TNI mildly elevated; CKMB unremarkable; while CAD cannot be ruled out, other factors, e.g. sepsis with tachycardia, CHF, may contribute to the rise. ECHO: normal LVEF. Code(s): R94.31 - ABNORMAL ELECTROCARDIOGRAM [ECG] [EKG] (4) Fever and chills Assessment/Plan: On antibiotics and antipyretics. Maintain fluids; f/u Is and Os. Code(s): R50.9 - FEVER, UNSPECIFIED (5) Hypotensive episode Code(s): I95.9 - HYPOTENSION, UNSPECIFIED (6) Tachycardia Assessment/Plan: Maintain fluids. Antipyretics. F/u BUN/Cr, Is and Os. F/u with caddie; r/o PE; on steroids, antibiotics, bronchodilators. 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
--- NOTE | 2018-07-14 11:50 | EKG ---
Test Reason : Blood Pressure : / mmHG Vent. Rate : 133 BPM Atrial Rate : 133 BPM P-R Int : 130 ms QRS Dur : 078 ms QT Int : 302 ms P-R-T Axes : 057 125 019 degrees QTc Int : 449 ms POOR DATA QUALITY, INTERPRETATION MAY BE ADVERSELY AFFECTED SINUS TACHYCARDIA POSSIBLE LEFT ATRIAL ENLARGEMENT RIGHT AXIS DEVIATION INFERIOR-POSTERIOR INFARCT (CITED ON OR BEFORE 19-JAN-2015) ABNORMAL ECG WHEN COMPARED WITH ECG OF 12-JUL-2018 05:09, NO SIGNIFICANT CHANGE WAS FOUND PATIENT CONTRACTED Confirmed by AALIYAH PATRICK, GIO ([id number]) on 07/14/2018 11:50:42 AM Referred By: Ngozi MINAYA Confirmed By:GIO FISCHER MD
[2018-07-14] MEDS ORDERED: LEVALBUTEROL HCL 0.31 MG/3 ML VIAL.NEB IH SCH (11:54)
--- NOTE | 2018-07-14 11:57 | PN ---
Physical Exam: SUBJECTIVE: Patient seen and examined at the bedside. Father present, discussed POC with father. will also call patient's mother later today after she gets home from work. father phone no. [phone]. I called medical management specialist at [facility] for update (Dr. Mayorga) [phone]. VM , left my cell phone no. awaiting call back. OBJECTIVE: Vital Signs Period Temp Pulse Resp BP Sys/Don Pulse Ox Last 24 Hr 98.8 F-101.0 F 103-159 18-28 99-145/46-78 97 GENERAL: The patient is in no acute distress, mild shortness of breath at rest HEAD: microcephaly ENT: Ears normal, nares patent, oropharynx clear without exudates. Moist mucous membranes. NECK: Normal range of motion, supple without lymphadenopathy, CHEST: scattered rhonchi, likely secondary to fluid overload. will give lasix 20mg x 1 dose now. HEART:Regular rate and rhythm ABDOMEN: Soft, nontender, normoactive bowel sounds. +peg tube EXTREMITIES: contracted upper and lower ext. bilateral hand edema noted. NEUROLOGICAL: more awake, more alert. looking around room. MUSCULOSKELETAL: contracted upper and lower ext. SKIN: Warm, Dry, normal turgor, no rashes or lesions noted Laboratory Results - last 24 hr 07/13/18 07/13/18 07/13/18 08:56 14:05 16:55 WBC RBC Hgb Hct MCV MCH MCHC RDW Plt Count MPV Absolute Neuts (auto) Neutrophils % Neutrophils % (Manual) 95.0 H Band Neutrophils % 0.0 Lymphocytes % Lymphocytes % (Manual) 3.0 L Monocytes % Monocytes % (Manual) 2 L Eosinophils % Eosinophils % (Manual) 0.0 Basophils % Basophils % (Manual) 0.0 Myelocytes % (Man) 0 Promyelocytes % (Man) 0 Blast Cells % (Manual) 0 Nucleated RBC % Metamyelocytes 0 Hypochromia 0 Toxic Granulation 0 Dohle Bodies 0 Platelet Estimate Normal Polychromasia 0 Poikilocytosis 0 Basophilic Stippling 0 Anisocytosis 0 Microcytosis 0 Macrocytosis 0 Spherocytes 0 Sickle Cells 0 Target Cells 0 Tear Drop Cells 0 Ovalocytes 0 Stomatocytes 0 Helmet Cells 0 [place] Bodies 0 [place] Rings 0 Christina Cells 0 Acanthocytes (Spur) 0 Rouleaux 0 Fragmented RBCs 0 Schistocytes 0 Sodium Potassium Chloride Carbon Dioxide Anion Gap BUN Creatinine Creat Clearance w eGFR POC Glucometer 86 75 Random Glucose Calcium Magnesium Total Bilirubin AST ALT Alkaline Phosphatase Creatine Kinase Creatine Kinase Index CK-MB (CK-2) Total Protein Albumin Carbamazepine 07/13/18 07/14/18 07/14/18 23:06 07:04 08:10 WBC 9.4 RBC 4.54 Hgb 12.8 Hct 39.6 MCV 87.2 MCH 28.3 MCHC 32.5 RDW 14.5 Plt Count 271 MPV 7.7 Absolute Neuts (auto) 8.0 Neutrophils % 85.1 H Neutrophils % (Manual) Band Neutrophils % Lymphocytes % 9.6 D Lymphocytes % (Manual) Monocytes % 5.2 D Monocytes % (Manual) Eosinophils % 0.0 Eosinophils % (Manual) Basophils % 0.1 Basophils % (Manual) Myelocytes % (Man) Promyelocytes % (Man) Blast Cells % (Manual) Nucleated RBC % 0 Metamyelocytes Hypochromia Toxic Granulation Dohle Bodies Platelet Estimate Polychromasia Poikilocytosis Basophilic Stippling Anisocytosis Microcytosis Macrocytosis Spherocytes Sickle Cells Target Cells Tear Drop Cells Ovalocytes Stomatocytes Helmet Cells [place] Bodies [place] Rings Hope Cells Acanthocytes (Spur) Rouleaux Fragmented RBCs Schistocytes Sodium Potassium Chloride Carbon Dioxide Anion Gap BUN Creatinine Creat Clearance w eGFR POC Glucometer 93 92 Random Glucose Calcium Magnesium Total Bilirubin AST ALT Alkaline Phosphatase Creatine Kinase Creatine Kinase Index CK-MB (CK-2) Total Protein Albumin Carbamazepine 07/14/18 07/14/18 08:10 08:10 WBC RBC Hgb Hct MCV MCH MCHC RDW Plt Count MPV Absolute Neuts (auto) Neutrophils % Neutrophils % (Manual) Band Neutrophils % Lymphocytes % Lymphocytes % (Manual) Monocytes % Monocytes % (Manual) Eosinophils % Eosinophils % (Manual) Basophils % Basophils % (Manual) Myelocytes % (Man) Promyelocytes % (Man) Blast Cells % (Manual) Nucleated RBC % Metamyelocytes Hypochromia Toxic Granulation Dohle Bodies Platelet Estimate Polychromasia Poikilocytosis Basophilic Stippling Anisocytosis Microcytosis Macrocytosis Spherocytes Sickle Cells Target Cells Tear Drop Cells Ovalocytes Stomatocytes Helmet Cells [place] Bodies [place] Rings Hope Cells Acanthocytes (Spur) Rouleaux Fragmented RBCs Schistocytes Sodium 138 Potassium 4.4 Chloride 108 H Carbon Dioxide 16 L Anion Gap 13 BUN 12 Creatinine 0.5 L Creat Clearance w eGFR > 60 POC Glucometer Random Glucose 77 Calcium 8.2 L Magnesium 2.0 Total Bilirubin 0.4 AST 72 H ALT 39 Alkaline Phosphatase 116 Creatine Kinase 3002 H Creatine Kinase Index 0.3 CK-MB (CK-2) 10.6 H Total Protein 8.2 Albumin 3.5 Carbamazepine 12.8 H Active Medications Generic Name Dose Route Start Last Admin Trade Name Freq PRN Reason Stop Dose Admin Acetaminophen 1,000 mg 07/12/18 17:31 07/13/18 21:23 Ofirmev Injection - IVPB 1,000 mg Q6H PRN Administration FEVER Albuterol/Ipratropium 1 amp 07/13/18 12:45 07/14/18 08:10 Duoneb - NEB 1 amp RQ4H ALEKSANDR Administration Aspirin 81 mg 07/12/18 22:00 07/13/18 22:06 Asa - GT 81 mg HS ALEKSANDR Administration Baclofen 10 mg 07/13/18 06:00 07/14/18 07:09 Lioresal - GT 10 mg DAILY@0600,1200 ALEKSANDR Administration Baclofen 20 mg 07/12/18 18:00 07/14/18 01:11 Lioresal - GT 20 mg DAILY@1800,0000 ALEKSANDR Administration Carbamazepine 280 mg 07/12/18 22:00 07/14/18 09:50 Tegretol Oral Suspension - GT 280 mg BID ALEKSANDR Administration Clonazepam 1 mg 07/12/18 22:00 07/14/18 07:08 Klonopin - GT 1 mg TID ALEKSANDR Administration Clonidine 0.2 mg 07/12/18 22:00 07/13/18 22:06 Catapres - PO 0.2 mg HS ALEKSANDR Administration Heparin Sodium (Porcine) 5,000 unit 07/14/18 10:15 07/14/18 10:19 Heparin - SQ 5,000 unit BID ALEKSANDR Administration Sodium Chloride 1,000 mls @ 100 mls/hr 07/12/18 17:45 07/14/18 09:43 Normal Saline - IV 100 mls/hr ASDIR ALEKSANDR Administration Ceftriaxone Sodium 1 gm/ 50 mls @ 100 mls/hr 07/13/18 12:45 07/14/18 09:47 Dextrose IVPB 100 mls/hr DAILY ALEKSANDR Administration Protocol Levalbuterol HCl 0.31 mg 07/14/18 11:54 Xopenex IH RTID ALEKSANDR Levetiracetam 1,500 mg 07/12/18 22:00 07/14/18 09:46 Keppra Oral Solution - GT 1,500 mg BID ALEKSANDR Administration Lorazepam 2 mg 07/13/18 12:27 Ativan Injection - IVPUSH Q6H PRN seizures Methylprednisolone Sodium Succinate 40 mg 07/12/18 20:00 07/14/18 09:47 Solu-Medrol - IVPUSH 40 mg Q8H-IV ALEKSANDR Administration Metoprolol Tartrate 5 mg 07/13/18 12:29 07/13/18 17:58 Lopressor Injection - IVPUSH 5 mg Q4H PRN Administration TACHYCARDIA Metoprolol Tartrate 50 mg 07/13/18 22:00 07/14/18 09:45 Lopressor - GT 50 mg BID ALEKSANDR Administration Triamcinolone Acetonide 1 applic 07/12/18 22:00 07/14/18 09:50 Aristocort 0.1% Cream - TP Not Given BID [facility] ASSESSMENT/PLAN: Patient is a 26 year old male with a significant past medical history of profound mental retardation, dysphagia, s/p peg insertion, seizures, hyponatremia and asthma. Patient presents to the ED on 07/12/2018, accompanied by his aide for fevers, increased work of breathing and increased weakness. problem list ------- profound mental retardation microcephaly dysphagia with gt seizures hyponatremia asthma aspiration pneumonia respiratory distress acute bronchitis ------ ID: Sepsis/unclear etiology, likely secondary to aspiration pnemonia, vs cap vs. acute bronchitis Presents with leukocytosis 14.2 now trending down within normal range Still with tachycardia, fevers. Patient started on metoprolol 50mg BID and lopressor 5mg pushes for tachycardia Fever curve improving More congested today, IVF decreased, chest xray ordered and given lasix 20mg x [address] of abdomen/pelvis without acute pathology Blood and urine cultures pending but negative for any growth so far Possible aspiration pneumoina? has chronic jevity feeds-which are on hold - may restart feeds tomorrow. consider changing to g/j tube once more stable. On ceftriaxone Duonebs ordered scheduled. Card: Elevated troponins EKG with ST and possible inferior infarct, t wave abnormality, non specific changes in st segment in anterior leads trops flat trending Echo reviewed Cardiology consulted Tachycardia ekg with sinus tachycardia, heart rate elevated at times to 140-160s started on lopressor 5mg prn and lopressor 50mg bid cardiology following. Neuro: Seizures, likely provoked due to acute illness, high fevers Given Keppra loading dose in the ED, started on home dose of keppra 1500 BID via gtube Ativan 2mg prn for any breakthrough seizure on keppra, tegretol, baclophen. keppra and tegretol levels pending. Tylenol IV for fevers neurology consulted and following. notes reviewed, recommendations appreciated. Renal rhabdo elevated CPK 2300>3000 with normal bun/creat IVF hydrate and repeat cpk in a.m. fen NS @ 50/cchr - decreased for congestion. monitor electrolytes hold ngt feeds dispositon. full code. Visit type - Emergency Visit Emergency Visit: Yes ED Registration Date: 07/12/18 Care time: The patient presented to the Emergency Department on the above date and was hospitalized for further evaluation of their emergent condition. - New Patient This patient is new to me today: No - Critical Care Critical Care patient: No - Discharge Referral Referred to [facility] Med P.C.: No
[2018-07-14] MEDS: LEVALBUTEROL HCL 0.31 MG/3 ML VIAL.NEB IH SCH ×2 (12:18→12:19)
--- NOTE | 2018-07-14 12:21 | CONS ---
DATE OF CONSULTATION: 07/13/2018 PULMONARY CONSULTATION REFERRING PHYSICIAN: Anand Fortune NP HISTORY OF PRESENT ILLNESS: History is obtained from the chart. The patient has severe mental retardation. He is a 27-year-old white male, a resident of [facility], with a past medical history of mental retardation, cerebral palsy, dysphagia status post PEG insertion, seizures, hyponatremia and asthma. He is essentially bed and wheelchair bound. He was transferred to [facility] secondary to fever and increased secretions. The patient apparently had a fever of 101.2 at the [facility] and was diaphoretic. He was transferred to [facility] for this. He was placed on antibiotic therapy and transferred to the medical floor for further management. A chest x-ray done on admission showed no acute infiltrates. He was evaluated by Infectious Disease and placed on steroids as well as antibiotics. PAST MEDICAL HISTORY: Again, this includes severe mental retardation, seizures , a history of PEG insertion, dysphagia, asthma. REVIEW OF SYSTEMS: Unable to obtain. CURRENT MEDICATIONS: Solu-Medrol, Aristocort, piperacillin, Keppra, Klonopin, Ativan, Catapres,and aspirin. PHYSICAL EXAMINATION: General: The patient is a thin male, awake, congested, in no acute distress. Vital Signs: Temperature is 99.8, heart rate is 138, respiratory rate 26. HEENT: Head is normocephalic, atraumatic. Neck: Supple. Heart: Tachycardic with S1, S2. Chest: Scattered bibasilar rhonchi. Abdomen: Soft. Bowel sounds are positive. Extremities: No cyanosis. He has bilateral lower extremity contractures. LABORATORY: WBC is 9.2, hemoglobin 13.3, hematocrit 40.4, platelet count of 262 ,000. INR is 1.28. Blood gases: pH is 7.38, PCO2 of 35, PO2 of 78. Chemistries: BUN 10, creatinine 0.4, CK is 3324. Troponin is 0.14. Legionella antigen is negative. Pneumococcal antigen negative. Influenza screen negative. A chest x-ray shows no infiltrates or effusions. IMPRESSION: 1. Chest congestion, likely acute bronchitis. 2. Asthma exacerbation secondary to no. 1. 3. Severe mental retardation. 4. Seizure disorder. 5. Cerebral palsy. 6. Positive troponins. 7. Rule out possible pneumonia, aspiration, although not evident on chest x- ray. PLAN: 1. Abx as per ID. 2. Aspiration precautions. 3. Pulmonary toilet. 4. Frequent oropharyngeal suctioning. 5. Cultures 6. F/U Chest x-rays 7. Inhaled bronchodilators 8. Solumedrol ZULEYKA WALSH M.D. EDDA/[id number] MTDD
[2018-07-14 12:56] LABS: CHOLESTEROL 145 mg/dL (50-200); HDL CHOLESTEROL 57 mg/dL (40-60); TRIGLYCERIDES 58 mg/dL (0-150)
[2018-07-14] MEDS ORDERED: MORPHINE SULFATE 2 MG/ML VIAL IM PRN (13:23)
--- NOTE | 2018-07-14 14:29 | PN ---
Progress Note (short form) - Note Progress Note: nad intermittent cough Vital Signs Period Temp Pulse Resp BP Sys/Don Pulse Ox Last 24 Hr 98.8 F-101.0 F 103-144 18-26 99-145/46-64 97 cor-rrr lungs scattered rhonchi abd soft, +GT ext no edema CBC, BMP 07/14/18 08:10 07/14/18 08:10 Microbiology 07/12/18 06:25 Blood - Peripheral Venous Blood Culture - Preliminary NO GROWTH OBTAINED AFTER 48 HOURS, INCUBATION TO CONTINUE FOR 3 DAYS. 07/12/18 06:30 Blood - Peripheral Venous Blood Culture - Preliminary NO GROWTH OBTAINED AFTER 48 HOURS, INCUBATION TO CONTINUE FOR 3 DAYS. 07/12/18 18:30 Urine For Antigen Detection Legionella Antigen - Final 07/12/18 18:30 Urine For Antigen Detection Streptococcus pneumoniae Antigen (M - Final 07/12/18 07:10 Urine - Urine - Catheterized Urine Culture - Final NO GROWTH OBTAINED 07/12/18 08:26 Nasopharyngeal Swab Influenza Types A,B Antigen - Final 07/12/18 08:26 Nasopharyngeal Swab - Final a/p seizures rhabdomyolysis ?bronchitis- bacterial versus viral resend rsv antigen and resp viral panel continue rocephin d/w father at bedside Problem List - Problems (1) Pneumonia Code(s): J18.9 - PNEUMONIA, UNSPECIFIED ORGANISM (2) Cerebral palsy Code(s): G80.9 - CEREBRAL PALSY, UNSPECIFIED Qualifiers: Cerebral palsy type: unspecified type Qualified Code(s): G80.9 - Cerebral palsy, unspecified (3) Seizure Code(s): R56.9 - UNSPECIFIED CONVULSIONS
--- NOTE | 2018-07-14 14:32 | PN ---
Progress Note (short form) - Note Progress Note: NAD on NC O2. Breathing is non-labored. Intake & Output 07/11/18 07/12/18 07/13/18 07/14/18 23:59 23:59 23:59 23:59 Intake Total 1500 1100 Balance 1500 1100 Weight 90 lb Last Vital Signs Temp Pulse Resp BP Pulse Ox 99.0 F 117 H 26 H 109/52 L 97 07/14/18 08:53 07/14/18 08:53 07/14/18 08:53 07/14/18 08:53 07/13/18 21:00 Active Medications Acetaminophen (Ofirmev Injection -) 1,000 mg IVPB Q6H PRN PRN Reason: FEVER Last Admin: 07/13/18 21:23 Dose: 1,000 mg Albuterol/Ipratropium (Duoneb -) 1 amp NEB RQ4H [facility] Last Admin: 07/14/18 12:02 Dose: 1 amp Aspirin (Asa -) 81 mg GT HS [facility] Last Admin: 07/13/18 22:06 Dose: 81 mg Baclofen (Lioresal -) 10 mg GT DAILY@0600,1200 [facility] Last Admin: 07/14/18 12:58 Dose: 10 mg Baclofen (Lioresal -) 20 mg GT DAILY@1800,0000 [facility] Last Admin: 07/14/18 01:11 Dose: 20 mg Carbamazepine (Tegretol Oral Suspension -) 280 mg GT BID [facility] Last Admin: 07/14/18 09:50 Dose: 280 mg Clonazepam (Klonopin -) 1 mg GT TID [facility] Last Admin: 07/14/18 13:37 Dose: 1 mg Clonidine (Catapres -) 0.2 mg PO HS [facility] Last Admin: 07/13/18 22:06 Dose: 0.2 mg Heparin Sodium (Porcine) (Heparin -) 5,000 unit SQ BID [facility] Last Admin: 07/14/18 10:19 Dose: 5,000 unit Ceftriaxone Sodium 1 gm/ (Dextrose) 50 mls @ 100 mls/hr IVPB DAILY [facility]; Protocol Last Admin: 07/14/18 09:47 Dose: 100 mls/hr Sodium Chloride (Normal Saline -) 1,000 mls @ 50 mls/hr IV ASDIR [facility] Last Admin: 07/14/18 13:39 Dose: 50 mls/hr Levetiracetam (Keppra Oral Solution -) 1,500 mg GT BID [facility] Last Admin: 07/14/18 09:46 Dose: 1,500 mg Lorazepam (Ativan Injection -) 2 mg IVPUSH Q6H PRN PRN Reason: seizures Methylprednisolone Sodium Succinate (Solu-Medrol -) 40 mg IVPUSH Q8H-IV ALEKSANDR Last Admin: 07/14/18 09:47 Dose: 40 mg Metoprolol Tartrate (Lopressor Injection -) 5 mg IVPUSH Q4H PRN PRN Reason: TACHYCARDIA Last Admin: 07/13/18 17:58 Dose: 5 mg Metoprolol Tartrate (Lopressor -) 50 mg GT BID [facility] Last Admin: 07/14/18 09:45 Dose: 50 mg Morphine Sulfate (Morphine Sulfate) 0.5 mg IM Q6H PRN PRN Reason: PAIN LEVEL 7 - 10 Last Admin: 07/14/18 13:37 Dose: 0.5 mg Triamcinolone Acetonide (Aristocort 0.1% Cream -) 1 applic TP BID [facility] Last Admin: 07/14/18 09:50 Dose: Not Given GENERAL: NAD HEAD: (-) trauma. EYES: PERRL, extraocular movements intact, sclera anicteric, conjunctiva clear. No ptosis. ENT: clear NECK: Trachea midline, full range of motion, supple. LUNGS: Bibasilar rhonchi, no accessory muscle use. HEART: Tachy ABDOMEN: Soft, NT, ND, EXTREMITIES: no edema. NEUROLOGICAL: non-focal Laboratory Results - last 24 hr 07/13/18 07/13/18 07/14/18 16:55 23:06 07:04 WBC RBC Hgb Hct MCV MCH MCHC RDW Plt Count MPV Absolute Neuts (auto) Neutrophils % Lymphocytes % Monocytes % Eosinophils % Basophils % Nucleated RBC % Sodium Potassium Chloride Carbon Dioxide Anion Gap BUN Creatinine Creat Clearance w eGFR POC Glucometer 75 93 92 Random Glucose Calcium Magnesium Total Bilirubin AST ALT Alkaline Phosphatase Creatine Kinase Creatine Kinase Index CK-MB (CK-2) Total Protein Albumin Triglycerides Cholesterol Total LDL Cholesterol HDL Cholesterol TSH Carbamazepine 07/14/18 07/14/18 07/14/18 08:10 08:10 08:10 WBC 9.4 RBC 4.54 Hgb 12.8 Hct 39.6 MCV 87.2 MCH 28.3 MCHC 32.5 RDW 14.5 Plt Count 271 MPV 7.7 Absolute Neuts (auto) 8.0 Neutrophils % 85.1 H Lymphocytes % 9.6 D Monocytes % 5.2 D Eosinophils % 0.0 Basophils % 0.1 Nucleated RBC % 0 Sodium 138 Potassium 4.4 Chloride 108 H Carbon Dioxide 16 L Anion Gap 13 BUN 12 Creatinine 0.5 L Creat Clearance w eGFR > 60 POC Glucometer Random Glucose 77 Calcium 8.2 L Magnesium 2.0 Total Bilirubin 0.4 AST 72 H ALT 39 Alkaline Phosphatase 116 Creatine Kinase 3002 H Creatine Kinase Index 0.3 CK-MB (CK-2) 10.6 H Total Protein 8.2 Albumin 3.5 Triglycerides 58 Cholesterol 145 Total LDL Cholesterol 79 HDL Cholesterol 57 TSH 0.25 L D Carbamazepine 12.8 H 07/14/18 12:21 WBC RBC Hgb Hct MCV MCH MCHC RDW Plt Count MPV Absolute Neuts (auto) Neutrophils % Lymphocytes % Monocytes % Eosinophils % Basophils % Nucleated RBC % Sodium Potassium Chloride Carbon Dioxide Anion Gap BUN Creatinine Creat Clearance w eGFR POC Glucometer 90 Random Glucose Calcium Magnesium Total Bilirubin AST ALT Alkaline Phosphatase Creatine Kinase Creatine Kinase Index CK-MB (CK-2) Total Protein Albumin Triglycerides Cholesterol Total LDL Cholesterol HDL Cholesterol TSH Carbamazepine Problem List - Problems (1) Pneumonia Code(s): J18.9 - PNEUMONIA, UNSPECIFIED ORGANISM (2) Cerebral palsy Code(s): G80.9 - CEREBRAL PALSY, UNSPECIFIED Qualifiers: Cerebral palsy type: unspecified type Qualified Code(s): G80.9 - Cerebral palsy, unspecified (3) Seizure Code(s): R56.9 - UNSPECIFIED CONVULSIONS IMP ACUTE RESPIRATORY DISTRESS ? PNEUMONIA ? ASPORATION ACUTE BRONCHITIS ASTHMA SEIZURES CEREBRAL PALSY MENTAL RETARDATION PLAN STEROIDS INHALED BRONCHODILATORS O2 ABX PER ID SEIZURE PRECAUTIONS ASPIRATION PRECAUTIONS ORAL PHARYNGEAL SUCTIONING DR HARKINS
[2018-07-14] MEDS ORDERED: FUROSEMIDE 40 MG/4 ML INJECTABLE VIAL IVPUSH ONE (16:16)
[2018-07-14] MEDS: METOPROLOL TARTRATE 5 MG/5 ML VIAL IVPUSH PRN (18:03)
[2018-07-14] MEDS: ACETAMINOPHEN 1000 MG/100 ML VIAL (NON FORMULARY) IVPB PRN (21:36)
[2018-07-14] MEDS: ASPIRIN 81 MG CHEWABLE TABLETS GT SCH (22:47)
[2018-07-14] MEDS: cloNIDine HCL 0.1 MG TABLET PO SCH (22:47)
[2018-07-15] MEDS: BACLOFEN 10 MG TABLET (FP) GT SCH ×4 (01:44→17:07)
[2018-07-15] MEDS: methylPREDNISolone NA SUCC 40 MG/1 ML VIAL IVPUSH SCH ×4 (01:44→22:08)
[2018-07-15] MEDS: ALBUTEROL SO4 2.5/IPRATROPIUM 0.5 INH SOL 3 ML VIAL.NEB. NEB SCH ×5 (04:12→21:25)
[2018-07-15] MEDS: clonazePAM 0.5 MG TABLET GT SCH ×3 (06:41→22:08)
[2018-07-15 09:35] LABS: BASO % 0.2 % (0-2.0); EOS % 0.1 % (0-4.5); HEMATOCRIT 41.6 % (35.4-49); HEMOGLOBIN 13.5 GM/dL (11.7-16.9); LYMPH % 5.5 % (8-40); MCH 28.6 pg (25.7-33.7); MCHC 32.4 g/dl (32.0-35.9); MEAN CELL VOLUME 88.4 fl (80-96); MEAN PLT VOLUME 8.6 fl (7.5-11.1); MONO % 6.5 % (3.8-10.2); NEUT % 87.7 % (42.8-82.8); PLATELET COUNT 255 K/MM3 (134-434); RDW 14.9 % (11.9-15.9); WHITE BLOOD COUNT 14.7 K/mm3 (4.0-10.0)
[2018-07-15] MEDS ORDERED: cefTRIAXone SODIUM 1 GM VIAL ONE (09:38)
[2018-07-15] MEDS ORDERED: DEXTROSE 5%-WATER - 50 ML IVPB ONE (09:38)
[2018-07-15] MEDS ORDERED: PT OWN MED DRAWER 7, Y5N ONE (09:38)
[2018-07-15] MEDS: METOPROLOL TARTRATE 50 MG TABLET (FP) GT SCH ×2 (09:40→22:08)
[2018-07-15] MEDS: CEFTRIAXONE 1 GM in DEXTROSE 5%-WATER - 50 ML IVPB SCH (09:40)
[2018-07-15] MEDS: levETIRAcetam 500 MG/5 ML ORAL SOLUTION (UNIT-DOSE CUPS) GT SCH ×2 (09:40→22:10)
[2018-07-15] MEDS: HEPARIN NA (PORCINE) 5,000 UNITS/ML 1ML VIAL SQ SCH ×2 (09:40→22:08)
[2018-07-15] MEDS: carBAMazepine 200 MG/10 ML UNIT-DOSE CUP GT SCH ×2 (09:41→22:11)
--- NOTE | 2018-07-15 09:42 | PN ---
Progress Note (short form) - Note Progress Note: nad resting comfortably Vital Signs Period Temp Pulse Resp BP Sys/Don Pulse Ox Last 24 Hr 98 F-100.3 F 100-142 18-24 91-125/55-77 94 cor-rrr llungs clear abd soft,nt +GT ext no edema CBC, BMP 07/15/18 06:30 07/15/18 05:30 Microbiology 07/12/18 06:25 Blood - Peripheral Venous Blood Culture - Preliminary NO GROWTH OBTAINED AFTER 72 HOURS, INCUBATION TO CONTINUE FOR 2 DAYS. 07/12/18 06:30 Blood - Peripheral Venous Blood Culture - Preliminary NO GROWTH OBTAINED AFTER 72 HOURS, INCUBATION TO CONTINUE FOR 2 DAYS. 07/12/18 18:30 Urine For Antigen Detection Legionella Antigen - Final 07/12/18 18:30 Urine For Antigen Detection Streptococcus pneumoniae Antigen (M - Final 07/12/18 07:10 Urine - Urine - Catheterized Urine Culture - Final NO GROWTH OBTAINED 07/12/18 08:26 Nasopharyngeal Swab Influenza Types A,B Antigen - Final 07/12/18 08:26 Nasopharyngeal Swab - Final RSV negative a/p seizures rhabdomyolysis fevers improved- ?viral vs bacterial suspect bronchitis no clear infiltrate on cxray, not hypoxic continue rocephin, f/u resp virus pcr Problem List - Problems (1) Pneumonia Code(s): J18.9 - PNEUMONIA, UNSPECIFIED ORGANISM (2) Cerebral palsy Code(s): G80.9 - CEREBRAL PALSY, UNSPECIFIED Qualifiers: Cerebral palsy type: unspecified type Qualified Code(s): G80.9 - Cerebral palsy, unspecified (3) Seizure Code(s): R56.9 - UNSPECIFIED CONVULSIONS
[2018-07-15 10:05] LABS: ALBUMIN 3.5 g/dl (3.4-5.0); ALK PHOS 104 U/L (45-117); ANION GAP 18 MMOL/L (8-16); BILIRUBIN,TOTAL 0.5 mg/dL (0.2-1); BLOOD UREA NITROGEN 20 mg/dL (7-18); CALCIUM 8.1 mg/dL (8.5-10.1); CHLORIDE 110 mmol/L (98-107); CO2 15 mmol/L (21-32); CREATININE 0.7 mg/dL (0.55-1.3); GLUCOSE,RANDOM 80 mg/dL (74-106); POTASSIUM 3.6 mmol/L (3.5-5.1); SGOT/AST 48 U/L (15-37); SGPT/ALT 41 U/L (13-61); SODIUM 143 mmol/L (136-145); TOT PROT 7.9 g/dl (6.4-8.2)
--- NOTE | 2018-07-15 11:13 | PN ---
Progress Note, Physician History of Present Illness: PULMONARY SLEEPING ,-RESP DISTRESS - Current Medication List Current Medications: Active Medications Acetaminophen (Ofirmev Injection -) 1,000 mg IVPB Q6H PRN PRN Reason: FEVER Last Admin: 07/14/18 21:36 Dose: 1,000 mg Albuterol/Ipratropium (Duoneb -) 1 amp NEB RQ4H ALEKSANDR Last Admin: 07/15/18 07:48 Dose: 1 amp Aspirin (Asa -) 81 mg GT HS ALEKSANDR Last Admin: 07/14/18 22:47 Dose: 81 mg Baclofen (Lioresal -) 10 mg GT DAILY@0600,1200 [facility] Last Admin: 07/15/18 06:41 Dose: 10 mg Baclofen (Lioresal -) 20 mg GT DAILY@1800,0000 [facility] Last Admin: 07/15/18 01:44 Dose: 20 mg Carbamazepine (Tegretol Oral Suspension -) 280 mg GT BID [facility] Last Admin: 07/15/18 09:41 Dose: 280 mg Clonazepam (Klonopin -) 1 mg GT TID [facility] Last Admin: 07/15/18 06:41 Dose: 1 mg Clonidine (Catapres -) 0.2 mg PO HS [facility] Last Admin: 07/14/18 22:47 Dose: 0.2 mg Heparin Sodium (Porcine) (Heparin -) 5,000 unit SQ BID [facility] Last Admin: 07/15/18 09:40 Dose: 5,000 unit Ceftriaxone Sodium 1 gm/ (Dextrose) 50 mls @ 100 mls/hr IVPB DAILY [facility]; Protocol Last Admin: 07/15/18 09:40 Dose: 100 mls/hr Sodium Chloride (Normal Saline -) 1,000 mls @ 50 mls/hr IV ASDIR ALEKSANDR Last Admin: 07/14/18 13:39 Dose: 50 mls/hr Levetiracetam (Keppra Oral Solution -) 1,500 mg GT BID [facility] Last Admin: 07/15/18 09:40 Dose: 1,500 mg Lorazepam (Ativan Injection -) 2 mg IVPUSH Q6H PRN PRN Reason: seizures Methylprednisolone Sodium Succinate (Solu-Medrol -) 40 mg IVPUSH Q8H-IV ALEKSANDR Last Admin: 07/15/18 09:40 Dose: 40 mg Metoprolol Tartrate (Lopressor Injection -) 5 mg IVPUSH Q4H PRN PRN Reason: TACHYCARDIA Last Admin: 07/14/18 18:03 Dose: 5 mg Metoprolol Tartrate (Lopressor -) 50 mg GT BID [facility] Last Admin: 07/15/18 09:40 Dose: 50 mg Morphine Sulfate (Morphine Sulfate) 0.5 mg IM Q6H PRN PRN Reason: PAIN LEVEL 7 - 10 Last Admin: 07/14/18 13:37 Dose: 0.5 mg Triamcinolone Acetonide (Aristocort 0.1% Cream -) 1 applic TP BID [facility] Last Admin: 07/14/18 22:38 Dose: Not Given - Objective Vital Signs: Vital Signs Temperature 98.8 F 07/15/18 10:00 Pulse Rate 70 07/15/18 10:00 Respiratory Rate 22 H 07/15/18 10:00 Blood Pressure 104/50 L 07/15/18 10:00 O2 Sat by Pulse Oximetry (%) 94 L 07/14/18 21:00 Constitutional: Yes: Thin, Other (SLEEPING) Eyes: Yes: WNL HENT: Yes: WNL Neck: Yes: WNL Cardiovascular: Yes: Regular Rate and Rhythm, S1, S2 Respiratory: Yes: Rhonchi (SCATTERED RHONCHI) Gastrointestinal: Yes: Normal Bowel Sounds, Soft Extremities: Yes: Other (CONTRACTURES) Labs: CBC, BMP 07/15/18 06:30 07/15/18 05:30 INR, PTT INR 1.28 (0.83-1.09) H 07/12/18 07:10 Problem List - Problems (1) Asthma attack Code(s): J45.901 - UNSPECIFIED ASTHMA WITH (ACUTE) EXACERBATION (2) Fever and chills Code(s): R50.9 - FEVER, UNSPECIFIED (3) Pneumonia Code(s): J18.9 - PNEUMONIA, UNSPECIFIED ORGANISM Qualifiers: (4) Tachycardia Code(s): R00.0 - TACHYCARDIA, UNSPECIFIED (5) Tachypnea Code(s): R06.82 - TACHYPNEA, NOT ELSEWHERE CLASSIFIED (6) Cerebral palsy Code(s): G80.9 - CEREBRAL PALSY, UNSPECIFIED Qualifiers: Cerebral palsy type: unspecified type Qualified Code(s): G80.9 - Cerebral palsy, unspecified (7) Seizure Code(s): R56.9 - UNSPECIFIED CONVULSIONS Assessment/Plan IMP ACUTE RESPIRATORY DISTRESS ? PNEUMONIA ? ASPIRATION ACUTE BRONCHITIS ASTHMA SEIZURES CEREBRAL PALSY MENTAL RETARDATION PLAN STEROIDS INHALED BRONCHODILATORS O2 ABX PER ID SEIZURE PRECAUTIONS ASPIRATION PRECAUTIONS ORAL PHARYNGEAL SUCTIONING DR WALSH
[2018-07-15] MEDS: TRIAMCINOLONE ACET 0.1% CREAM 15 GM TUBE TP SCH ×2 (11:48→22:11)
--- NOTE | 2018-07-15 14:13 | PN ---
Physical Exam: SUBJECTIVE: Patient seen and examined at the bedside. non verbal at baseline. appears improved. restart feeds. less congested OBJECTIVE: Vital Signs Period Temp Pulse Resp BP Sys/Don Pulse Ox Last 24 Hr 98 F-100.3 F 70-142 18-24 91-125/50-77 94 GENERAL: The patient is in no acute distress, awake. profound MR, unable to make his needs known. HEAD: microcephaly ENT: Ears normal, nares patent, oropharynx clear without exudates. Moist mucous membranes. NECK: Normal range of motion, supple without lymphadenopathy, CHEST: mild rhonchi on anterior lobes. on nasal cannula HEART:Regular rate and rhythm ABDOMEN: Soft, nontender, normoactive bowel sounds. +peg tube EXTREMITIES: contracted upper and lower ext. mild bilateral hand edema noted. NEUROLOGICAL: more awake, more alert. looking around room. MUSCULOSKELETAL: contracted upper and lower ext. SKIN: Warm, Dry, normal turgor, no rashes or lesions noted Laboratory Results - last 24 hr 07/14/18 07/15/18 07/15/18 17:31 01:51 05:30 WBC RBC Hgb Hct MCV MCH MCHC RDW Plt Count MPV Absolute Neuts (auto) Neutrophils % Lymphocytes % Monocytes % Eosinophils % Basophils % Nucleated RBC % Sodium Cancelled Potassium Cancelled Chloride Cancelled Carbon Dioxide Cancelled Anion Gap Cancelled BUN Cancelled Creatinine Cancelled Creat Clearance w eGFR Cancelled POC Glucometer 84 90 Random Glucose Cancelled Calcium Cancelled Magnesium Cancelled Total Bilirubin Cancelled AST Cancelled ALT Cancelled Alkaline Phosphatase Cancelled Total Protein Cancelled Albumin Cancelled Free T4 07/15/18 07/15/18 07/15/18 05:30 06:30 06:35 WBC 14.7 H RBC 4.70 Hgb 13.5 Hct 41.6 MCV 88.4 MCH 28.6 MCHC 32.4 RDW 14.9 Plt Count 255 MPV 8.6 D Absolute Neuts (auto) 12.9 H Neutrophils % 87.7 H Lymphocytes % 5.5 L D Monocytes % 6.5 Eosinophils % 0.1 D Basophils % 0.2 Nucleated RBC % 0 Sodium 143 Potassium 3.6 Chloride 110 H Carbon Dioxide 15 L Anion Gap 18 H BUN 20 H Creatinine 0.7 Creat Clearance w eGFR > 60 POC Glucometer 100 Random Glucose 80 Calcium 8.1 L Magnesium 2.0 Total Bilirubin 0.5 AST 48 H ALT 41 Alkaline Phosphatase 104 Total Protein 7.9 Albumin 3.5 Free T4 0.90 Active Medications Generic Name Dose Route Start Last Admin Trade Name Mercedez PRN Reason Stop Dose Admin Acetaminophen 1,000 mg 07/12/18 17:31 07/14/18 21:36 Ofirmev Injection - IVPB 1,000 mg Q6H PRN Administration FEVER Albuterol/Ipratropium 1 amp 07/13/18 12:45 07/15/18 11:29 Duoneb - NEB 1 amp RQ4H ALEKSANDR Administration Aspirin 81 mg 07/12/18 22:00 07/14/18 22:47 Asa - GT 81 mg HS ALEKSANDR Administration Baclofen 10 mg 07/13/18 06:00 07/15/18 11:52 Lioresal - GT 10 mg DAILY@0600,1200 ALEKSANDR Administration Baclofen 20 mg 07/12/18 18:00 07/15/18 01:44 Lioresal - GT 20 mg DAILY@1800,0000 ALEKSANDR Administration Carbamazepine 280 mg 07/12/18 22:00 07/15/18 09:41 Tegretol Oral Suspension - GT 280 mg BID ALEKSANDR Administration Clonazepam 1 mg 07/12/18 22:00 07/15/18 06:41 Klonopin - GT 1 mg TID ALEKSANDR Administration Clonidine 0.2 mg 07/12/18 22:00 07/14/18 22:47 Catapres - PO 0.2 mg HS ALEKSANDR Administration Heparin Sodium (Porcine) 5,000 unit 07/14/18 10:15 07/15/18 09:40 Heparin - SQ 5,000 unit BID ALEKSANDR Administration Ceftriaxone Sodium 1 gm/ 50 mls @ 100 mls/hr 07/13/18 12:45 07/15/18 09:40 Dextrose IVPB 100 mls/hr DAILY ALEKSANDR Administration Protocol Sodium Chloride 1,000 mls @ 50 mls/hr 07/14/18 13:22 07/14/18 13:39 Normal Saline - IV 50 mls/hr ASDIR ALEKSANDR Administration Levetiracetam 1,500 mg 07/12/18 22:00 07/15/18 09:40 Keppra Oral Solution - GT 1,500 mg BID ALEKSANDR Administration Lorazepam 2 mg 07/13/18 12:27 Ativan Injection - IVPUSH Q6H PRN seizures Methylprednisolone Sodium Succinate 40 mg 07/12/18 20:00 07/15/18 09:40 Solu-Medrol - IVPUSH 40 mg Q8H-IV ALEKSANDR Administration Metoprolol Tartrate 5 mg 07/13/18 12:29 07/14/18 18:03 Lopressor Injection - IVPUSH 5 mg Q4H PRN Administration TACHYCARDIA Metoprolol Tartrate 50 mg 07/13/18 22:00 07/15/18 09:40 Lopressor - GT 50 mg BID ALEKSANDR Administration Morphine Sulfate 0.5 mg 07/14/18 13:23 07/14/18 13:37 Morphine Sulfate IM 0.5 mg Q6H PRN Administration PAIN LEVEL 7 - 10 Triamcinolone Acetonide 1 applic 07/12/18 22:00 07/15/18 11:48 Aristocort 0.1% Cream - TP Not Given BID ALEKSANDR ASSESSMENT/PLAN: Patient is a 26 year old male with a significant past medical history of profound mental retardation, dysphagia, s/p peg insertion, seizures, hyponatremia and asthma. Patient presents to the ED on 07/12/2018, accompanied by his aide for fevers, increased work of breathing and increased weakness. problem list ------- profound mental retardation microcephaly dysphagia with gt seizures hyponatremia asthma aspiration pneumonia respiratory distress acute bronchitis ------ ID: Sepsis/unclear etiology, likely secondary to aspiration pnemonia, vs cap vs. acute bronchitis Presents with leukocytosis 14.2 now trending down within normal range Still with tachycardia, fevers. Patient started on metoprolol 50mg BID and lopressor 5mg pushes for tachycardia Fever curve improving Less congested, less dyspnea at rest. now on nasal cannula. Blood and urine cultures pending but negative for any growth so far Possible aspiration pneumoina? has chronic jevity feeds-which are on hold - may restart feeds tomorrow. consider changing to g/j tube once more stable. On ceftriaxone per ID Duenedina ordered scheduled. Card: Elevated troponins EKG with ST and possible inferior infarct, t wave abnormality, non specific changes in st segment in anterior leads trops flat trending Echo reviewed Cardiology consulted Tachycardia, improved on lopressor 5mg prn and lopressor 50mg bid cardiology following. Neuro: Seizures, likely provoked due to acute illness and elevated temps. seizures have now resolved Had 2 witnessed seizure since admission. no further seizure activity reported. On keppra, tegretol, baclophen. keppra and tegretol levels pending. neurology consulted and following. notes reviewed, recommendations appreciated. Renal rhabdo elevated CPK 2300>3000 with normal bun/creat IVF hydrate and repeat cpk in a.m. fen NS @ 50/cchr - decreased for congestion. monitor electrolytes restart jevity feeds, dietary consulted disposition. full code. Visit type - Emergency Visit Emergency Visit: Yes ED Registration Date: 07/12/18 Care time: The patient presented to the Emergency Department on the above date and was hospitalized for further evaluation of their emergent condition. - New Patient This patient is new to me today: No - Critical Care Critical Care patient: No - Discharge Referral Referred to [facility] Med P.C.: No
[2018-07-15] MEDS: SODIUM CHLORIDE 1,000 ML IV SCH (14:19)
[2018-07-15] MEDS: ASPIRIN 81 MG CHEWABLE TABLETS GT SCH (22:08)
[2018-07-15] MEDS: cloNIDine HCL 0.1 MG TABLET PO SCH (22:09)
[2018-07-16] MEDS: ALBUTEROL SO4 2.5/IPRATROPIUM 0.5 INH SOL 3 ML VIAL.NEB. NEB SCH ×6 (01:30→20:00)
[2018-07-16] MEDS: BACLOFEN 10 MG TABLET (FP) GT SCH ×5 (01:33→17:09)
[2018-07-16] MEDS: SODIUM CHLORIDE 1,000 ML IV SCH ×2 (05:16→14:13)
[2018-07-16] MEDS: clonazePAM 0.5 MG TABLET GT SCH ×3 (05:20→22:02)
[2018-07-16 07:00] LABS: BASO % 0.1 % (0-2.0); HEMATOCRIT 37.5 % (35.4-49); HEMOGLOBIN 12.1 GM/dL (11.7-16.9); MCH 28.2 pg (25.7-33.7); MCHC 32.3 g/dl (32.0-35.9); MEAN CELL VOLUME 87.2 fl (80-96); MEAN PLT VOLUME 7.8 fl (7.5-11.1); MONO % 11.6 % (3.8-10.2); NEUT % 53.3 % (42.8-82.8); PLATELET COUNT 240 K/MM3 (134-434); RDW 14.7 % (11.9-15.9); WHITE BLOOD COUNT 7.4 K/mm3 (4.0-10.0)
[2018-07-16] MEDS ORDERED: METOPROLOL TARTRATE 25 MG TABLET (FP) GT SCH (07:37)
[2018-07-16 08:07] LABS: ALBUMIN 3.2 g/dl (3.4-5.0); ALK PHOS 88 U/L (45-117); ANION GAP 14 MMOL/L (8-16); BILIRUBIN,TOTAL 0.4 mg/dL (0.2-1); BLOOD UREA NITROGEN 17 mg/dL (7-18); CALCIUM 8.3 mg/dL (8.5-10.1); CHLORIDE 110 mmol/L (98-107); CO2 21 mmol/L (21-32); CREATININE 0.5 mg/dL (0.55-1.3); GLUCOSE,RANDOM 71 mg/dL (74-106); POTASSIUM 3.4 mmol/L (3.5-5.1); SGOT/AST 27 U/L (15-37); SGPT/ALT 34 U/L (13-61); SODIUM 145 mmol/L (136-145); TOT PROT 7.2 g/dl (6.4-8.2)
--- NOTE | 2018-07-16 09:20 | PN ---
Progress Note, Physician History of Present Illness: pulmonary awake,congested,-resp distress - Current Medication List Current Medications: Active Medications Acetaminophen (Ofirmev Injection -) 1,000 mg IVPB Q6H PRN PRN Reason: FEVER Last Admin: 07/14/18 21:36 Dose: 1,000 mg Albuterol/Ipratropium (Duoneb -) 1 amp NEB RQ4H [facility] Last Admin: 07/16/18 05:00 Dose: 1 amp Aspirin (Asa -) 81 mg GT HS [facility] Last Admin: 07/15/18 22:08 Dose: 81 mg Baclofen (Lioresal -) 10 mg GT DAILY@0600,1200 [facility] Last Admin: 07/16/18 05:22 Dose: 10 mg Baclofen (Lioresal -) 20 mg GT DAILY@1800,0000 [facility] Last Admin: 07/16/18 01:38 Dose: 20 mg Carbamazepine (Tegretol Oral Suspension -) 280 mg GT BID [facility] Last Admin: 07/15/18 22:11 Dose: 280 mg Clonazepam (Klonopin -) 1 mg GT TID [facility] Last Admin: 07/16/18 05:20 Dose: 1 mg Clonidine (Catapres -) 0.2 mg PO HS [facility] Last Admin: 07/15/18 22:09 Dose: 0.2 mg Heparin Sodium (Porcine) (Heparin -) 5,000 unit SQ BID [facility] Last Admin: 07/15/18 22:08 Dose: 5,000 unit Ceftriaxone Sodium 1 gm/ (Dextrose) 50 mls @ 100 mls/hr IVPB DAILY [facility]; Protocol Last Admin: 07/15/18 09:40 Dose: 100 mls/hr Sodium Chloride (Normal Saline -) 1,000 mls @ 50 mls/hr IV ASDIR [facility] Last Admin: 07/16/18 05:16 Dose: 50 mls/hr Levetiracetam (Keppra Oral Solution -) 1,500 mg GT BID [facility] Last Admin: 07/15/18 22:10 Dose: 1,500 mg Lorazepam (Ativan Injection -) 2 mg IVPUSH Q6H PRN PRN Reason: seizures Methylprednisolone Sodium Succinate (Solu-Medrol -) 40 mg IVPUSH BID [facility] Last Admin: 07/15/18 22:08 Dose: 40 mg Metoprolol Tartrate (Lopressor -) 25 mg GT BID [facility] Morphine Sulfate (Morphine Sulfate) 0.5 mg IM Q6H PRN PRN Reason: PAIN LEVEL 7 - 10 Last Admin: 07/14/18 13:37 Dose: 0.5 mg Triamcinolone Acetonide (Aristocort 0.1% Cream -) 1 applic TP BID [facility] Last Admin: 07/15/18 22:11 Dose: Not Given - Objective Vital Signs: Vital Signs Temperature 98.2 F 07/16/18 05:14 Pulse Rate 102 H 07/16/18 05:14 Respiratory Rate 20 07/16/18 05:14 Blood Pressure 119/72 07/16/18 05:14 O2 Sat by Pulse Oximetry (%) 98 07/15/18 21:00 Constitutional: Yes: Calm, Thin, Other (contracted) Eyes: Yes: WNL HENT: Yes: WNL Neck: Yes: WNL Cardiovascular: Yes: Regular Rate and Rhythm, S1, S2 Respiratory: Yes: Rhonchi (bilateral rhonchi) Gastrointestinal: Yes: Normal Bowel Sounds, Soft Extremities: Yes: Other (contracted) Edema: No Labs: CBC, BMP 07/16/18 05:30 07/16/18 05:30 INR, PTT INR 1.28 (0.83-1.09) H 07/12/18 07:10 Assessment/Plan IMP ACUTE RESPIRATORY DISTRESS ? PNEUMONIA ? ASPIRATION ACUTE BRONCHITIS ASTHMA SEIZURES CEREBRAL PALSY MENTAL RETARDATION PLAN STEROIDS SAME DOSE INHALED BRONCHODILATORS O2 ABX PER ID SEIZURE PRECAUTIONS ASPIRATION PRECAUTIONS ORAL PHARYNGEAL SUCTIONING DR WALSH
[2018-07-16] MEDS ORDERED: PT OWN MED DRAWER 7, Y5N ONE ×2 (10:03→21:34)
[2018-07-16] MEDS ORDERED: cefTRIAXone SODIUM 1 GM VIAL ONE (10:04)
[2018-07-16] MEDS ORDERED: DEXTROSE 5%-WATER - 50 ML IVPB ONE (10:04)
[2018-07-16] MEDS: TRIAMCINOLONE ACET 0.1% CREAM 15 GM TUBE TP SCH ×2 (10:23→22:00)
[2018-07-16] MEDS: carBAMazepine 200 MG/10 ML UNIT-DOSE CUP GT SCH ×2 (10:24→22:03)
[2018-07-16] MEDS: levETIRAcetam 500 MG/5 ML ORAL SOLUTION (UNIT-DOSE CUPS) GT SCH ×2 (10:24→22:03)
[2018-07-16] MEDS: CEFTRIAXONE 1 GM in DEXTROSE 5%-WATER - 50 ML IVPB SCH (10:24)
[2018-07-16] MEDS: HEPARIN NA (PORCINE) 5,000 UNITS/ML 1ML VIAL SQ SCH ×2 (10:24→22:05)
[2018-07-16] MEDS: methylPREDNISolone NA SUCC 40 MG/1 ML VIAL IVPUSH SCH ×2 (10:25→22:02)
--- NOTE | 2018-07-16 11:57 | PN ---
Physical Exam: SUBJECTIVE: Patient seen and examined at the bedside. non verbal at baseline. clinically improving. bp low overnight, decreased dose of metoprolol. parameters added to bp meds. OBJECTIVE: Vital Signs Period Temp Pulse Resp BP Sys/Don Pulse Ox Last 24 Hr 97.7 F-98.8 F 53-102 14-22 71-135/43-72 98-98 GENERAL: The patient is in no acute distress, awake. profound MR, unable to make his needs known. HEAD: microcephaly ENT: Ears normal, nares patent, oropharynx clear without exudates. Moist mucous membranes. NECK: Normal range of motion, supple without lymphadenopathy, CHEST: mild rhonchi on anterior lobes. on nasal cannula HEART:Regular rate and rhythm ABDOMEN: Soft, nontender, normoactive bowel sounds. +peg tube EXTREMITIES: contracted upper and lower ext. mild bilateral hand edema noted. NEUROLOGICAL: more awake, more alert. looking around room. MUSCULOSKELETAL: contracted upper and lower ext. SKIN: Warm, Dry, normal turgor, no rashes or lesions noted Laboratory Results - last 24 hr 07/15/18 07/15/18 07/15/18 10:58 17:06 22:07 WBC RBC Hgb Hct MCV MCH MCHC RDW Plt Count MPV Absolute Neuts (auto) Neutrophils % Lymphocytes % Monocytes % Eosinophils % Basophils % Nucleated RBC % Sodium Potassium Chloride Carbon Dioxide Anion Gap BUN Creatinine Creat Clearance w eGFR POC Glucometer 88 106 Random Glucose Calcium Total Bilirubin AST ALT Alkaline Phosphatase Creatine Kinase Creatine Kinase Index CK-MB (CK-2) Total Protein Albumin Prolactin 23.6 H 07/16/18 07/16/18 07/16/18 05:30 05:30 06:08 WBC 7.4 RBC 4.30 Hgb 12.1 Hct 37.5 MCV 87.2 MCH 28.2 MCHC 32.3 RDW 14.7 Plt Count 240 MPV 7.8 Absolute Neuts (auto) 4.0 Neutrophils % 53.3 D Lymphocytes % 35.0 D Monocytes % 11.6 H Eosinophils % 0.0 D Basophils % 0.1 Nucleated RBC % 0 Sodium 145 Potassium 3.4 L Chloride 110 H Carbon Dioxide 21 Anion Gap 14 BUN 17 Creatinine 0.5 L Creat Clearance w eGFR > 60 POC Glucometer 87 Random Glucose 71 L Calcium 8.3 L Total Bilirubin 0.4 AST 27 ALT 34 Alkaline Phosphatase 88 Creatine Kinase 652 H Creatine Kinase Index 0.5 CK-MB (CK-2) 3.5 Total Protein 7.2 Albumin 3.2 L Prolactin 07/16/18 11:31 WBC RBC Hgb Hct MCV MCH MCHC RDW Plt Count MPV Absolute Neuts (auto) Neutrophils % Lymphocytes % Monocytes % Eosinophils % Basophils % Nucleated RBC % Sodium Potassium Chloride Carbon Dioxide Anion Gap BUN Creatinine Creat Clearance w eGFR POC Glucometer 153 Random Glucose Calcium Total Bilirubin AST ALT Alkaline Phosphatase Creatine Kinase Creatine Kinase Index CK-MB (CK-2) Total Protein Albumin Prolactin Active Medications Generic Name Dose Route Start Last Admin Trade Name Freq PRN Reason Stop Dose Admin Acetaminophen 1,000 mg 07/12/18 17:31 07/14/18 21:36 Ofirmev Injection - IVPB 1,000 mg Q6H PRN Administration FEVER Albuterol/Ipratropium 1 amp 07/13/18 12:45 07/16/18 11:53 Duoneb - NEB 1 amp RQ4H ALEKSANDR Administration Aspirin 81 mg 07/12/18 22:00 07/15/18 22:08 Asa - GT 81 mg HS ALEKSANDR Administration Baclofen 10 mg 07/13/18 06:00 07/16/18 11:32 Lioresal - GT 10 mg DAILY@0600,1200 ALEKSANDR Administration Baclofen 20 mg 07/12/18 18:00 07/16/18 01:38 Lioresal - GT 20 mg DAILY@1800,0000 ALEKSANDR Administration Carbamazepine 280 mg 07/12/18 22:00 07/16/18 10:24 Tegretol Oral Suspension - GT 280 mg BID ALEKSANDR Administration Clonazepam 1 mg 07/12/18 22:00 07/16/18 05:20 Klonopin - GT 1 mg TID ALEKSANDR Administration Clonidine 0.2 mg 07/12/18 22:00 07/15/18 22:09 Catapres - PO 0.2 mg HS ALEKSANDR Administration Heparin Sodium (Porcine) 5,000 unit 07/14/18 10:15 07/16/18 10:24 Heparin - SQ 5,000 unit BID ALEKSANDR Administration Ceftriaxone Sodium 1 gm/ 50 mls @ 100 mls/hr 07/13/18 12:45 07/16/18 10:24 Dextrose IVPB 100 mls/hr DAILY ALEKSANDR Administration Protocol Sodium Chloride 1,000 mls @ 50 mls/hr 07/14/18 13:22 07/16/18 05:16 Normal Saline - IV 50 mls/hr ASDIR ALEKSANDR Administration Levetiracetam 1,500 mg 07/12/18 22:00 07/16/18 10:24 Keppra Oral Solution - GT 1,500 mg BID ALEKSANDR Administration Lorazepam 2 mg 07/13/18 12:27 Ativan Injection - IVPUSH Q6H PRN seizures Methylprednisolone Sodium Succinate 40 mg 07/15/18 22:00 07/16/18 10:25 Solu-Medrol - IVPUSH 40 mg BID ALEKSANDR Administration Metoprolol Tartrate 25 mg 07/16/18 07:37 07/16/18 10:24 Lopressor - GT 25 mg BID ALEKSANDR Administration Morphine Sulfate 0.5 mg 07/14/18 13:23 07/14/18 13:37 Morphine Sulfate IM 0.5 mg Q6H PRN Administration PAIN LEVEL 7 - 10 Triamcinolone Acetonide 1 applic 07/12/18 22:00 07/16/18 10:23 Aristocort 0.1% Cream - TP Not Given BID [facility] ASSESSMENT/PLAN: Patient is a 27 year old male with a significant past medical history of profound mental retardation, dysphagia, s/p peg insertion, seizures, hyponatremia and asthma. Patient presents to the ED on 07/12/2018, accompanied by his aide for fevers, increased work of breathing and increased weakness. problem list ------- profound mental retardation microcephaly dysphagia with gt seizures hyponatremia asthma aspiration pneumonia respiratory distress acute bronchitis ------ ID: Sepsis. likely secondary to aspiration pneumonia, vs cap vs. acute bronchitis. improving. Leukocytosis resolved. No fevers recorded. tachycardia resolved. Metopolol decreased secondary to hypotension. parameters added. Less congested, less dyspnea at rest. now on nasal cannula. Blood and urine negative for any growth so far On ceftriaxone per ID Duonebs ordered scheduled. Card: Elevated troponins. not ACS per cardiology EKG with ST and possible inferior infarct, t wave abnormality, non specific changes in st segment in anterior leads trops flat trending. Echo reviewed Cardiology consulted Tachycardia, resolved. Metoprolol decreased. cardiology following. Neuro: Seizures, resolved. Had 2 witnessed seizure since admission. no further seizure activity reported. On keppra, tegretol, baclophen. keppra and tegretol levels pending. Renal rhabdo, resolving. CPK 2300>600 with normal bun/creat gently hydrate and repeat cpk in a.m. fen NS @ 50/cchr - decreased for congestion. monitor electrolytes on jevity feeds, dietary consulted disposition. full code. Visit type - Emergency Visit Emergency Visit: Yes ED Registration Date: 07/12/18 Care time: The patient presented to the Emergency Department on the above date and was hospitalized for further evaluation of their emergent condition. - New Patient This patient is new to me today: No - Critical Care Critical Care patient: No - Discharge Referral Referred to [facility] Med P.C.: No
--- NOTE | 2018-07-16 15:27 | PN ---
Progress Note (short form) - Note Progress Note: nad resting comfortably no fevers not tachycardic today Vital Signs Period Temp Pulse Resp BP Sys/Don Pulse Ox Last 24 Hr 98 F-98.9 F 53-102 20-22 71-135/40-72 98-98 cor-rrr lungs clear abd soft,nt +gt ext no edema CBC, BMP 07/16/18 05:30 07/16/18 05:30 Microbiology 07/12/18 06:25 Blood - Peripheral Venous Blood Culture - Preliminary NO GROWTH OBTAINED AFTER 96 HOURS, INCUBATION TO CONTINUE FOR 1 DAYS. 07/12/18 06:30 Blood - Peripheral Venous Blood Culture - Preliminary NO GROWTH OBTAINED AFTER 96 HOURS, INCUBATION TO CONTINUE FOR 1 DAYS. 07/12/18 18:30 Nasopharyngeal Swab Respiratory Virus (PCR) - Final 07/14/18 15:25 Nasopharyngeal Swab Respiratory Virus (PCR) - Preliminary 07/12/18 18:30 Urine For Antigen Detection Legionella Antigen - Final 07/12/18 18:30 Urine For Antigen Detection Streptococcus pneumoniae Antigen (M - Final 07/12/18 07:10 Urine - Urine - Catheterized Urine Culture - Final NO GROWTH OBTAINED 07/12/18 08:26 Nasopharyngeal Swab Influenza Types A,B Antigen - Final 07/12/18 08:26 Nasopharyngeal Swab - Final RSV negative a/p seizures rhabdomyolysis fevers improved- continue rocephin day #4 resp virus PCR panel is NEGATIVE planto switch to ceftin at time of discharge- ?wednesday Problem List - Problems (1) Pneumonia Code(s): J18.9 - PNEUMONIA, UNSPECIFIED ORGANISM (2) Cerebral palsy Code(s): G80.9 - CEREBRAL PALSY, UNSPECIFIED Qualifiers: Cerebral palsy type: unspecified type Qualified Code(s): G80.9 - Cerebral palsy, unspecified (3) Seizure Code(s): R56.9 - UNSPECIFIED CONVULSIONS
[2018-07-16] MEDS: METOPROLOL TARTRATE 25 MG TABLET (FP) GT SCH (21:23)
[2018-07-16] MEDS: cloNIDine HCL 0.1 MG TABLET PO SCH (22:02)
[2018-07-16] MEDS: ASPIRIN 81 MG CHEWABLE TABLETS GT SCH (22:02)
[2018-07-17] MEDS: ALBUTEROL SO4 2.5/IPRATROPIUM 0.5 INH SOL 3 ML VIAL.NEB. NEB SCH ×7 (00:27→23:53)
[2018-07-17] MEDS: BACLOFEN 10 MG TABLET (FP) GT SCH ×4 (00:42→17:50)
[2018-07-17] MEDS: clonazePAM 0.5 MG TABLET GT SCH ×3 (06:30→21:42)
[2018-07-17] MEDS ORDERED: DEXTROSE 5%-WATER - 50 ML IVPB ONE (09:05)
[2018-07-17] MEDS ORDERED: cefTRIAXone SODIUM 1 GM VIAL ONE (09:05)
[2018-07-17] MEDS ORDERED: PT OWN MED DRAWER 7, Y5N ONE ×2 (09:08→21:33)
--- NOTE | 2018-07-17 09:22 | PN ---
Progress Note, Physician History of Present Illness: PULMONARY AWAKE ALERT,STILL CONGESTED. - Current Medication List Current Medications: Active Medications Acetaminophen (Ofirmev Injection -) 1,000 mg IVPB Q6H PRN PRN Reason: FEVER Last Admin: 07/14/18 21:36 Dose: 1,000 mg Albuterol/Ipratropium (Duoneb -) 1 amp NEB RQ4H [facility] Last Admin: 07/17/18 07:45 Dose: 1 amp Aspirin (Asa -) 81 mg GT HS [facility] Last Admin: 07/16/18 22:02 Dose: 81 mg Baclofen (Lioresal -) 10 mg GT DAILY@0600,1200 [facility] Last Admin: 07/17/18 06:30 Dose: 10 mg Baclofen (Lioresal -) 20 mg GT DAILY@1800,0000 [facility] Last Admin: 07/17/18 00:42 Dose: 20 mg Carbamazepine (Tegretol Oral Suspension -) 280 mg GT BID [facility] Last Admin: 07/16/18 22:03 Dose: 280 mg Clonazepam (Klonopin -) 1 mg GT TID [facility] Last Admin: 07/17/18 06:30 Dose: 1 mg Clonidine (Catapres -) 0.2 mg PO HS [facility] Last Admin: 07/16/18 22:02 Dose: 0.2 mg Heparin Sodium (Porcine) (Heparin -) 5,000 unit SQ BID [facility] Last Admin: 07/16/18 22:05 Dose: 5,000 unit Ceftriaxone Sodium 1 gm/ (Dextrose) 50 mls @ 100 mls/hr IVPB DAILY [facility]; Protocol Last Admin: 07/16/18 10:24 Dose: 100 mls/hr Sodium Chloride (Normal Saline -) 1,000 mls @ 50 mls/hr IV ASDIR [facility] Last Admin: 07/16/18 14:13 Dose: 50 mls/hr Levetiracetam (Keppra Oral Solution -) 1,500 mg GT BID [facility] Last Admin: 07/16/18 22:03 Dose: 1,500 mg Lorazepam (Ativan Injection -) 2 mg IVPUSH Q6H PRN PRN Reason: seizures Methylprednisolone Sodium Succinate (Solu-Medrol -) 40 mg IVPUSH BID [facility] Last Admin: 07/16/18 22:02 Dose: 40 mg Metoprolol Tartrate (Lopressor -) 25 mg GT BID [facility] Last Admin: 07/16/18 21:23 Dose: Not Given Morphine Sulfate (Morphine Sulfate) 0.5 mg IM Q6H PRN PRN Reason: PAIN LEVEL 7 - 10 Last Admin: 07/14/18 13:37 Dose: 0.5 mg Scopolamine HBr (Transderm-Scop -) 1 patch TD Q72H [facility] Triamcinolone Acetonide (Aristocort 0.1% Cream -) 1 applic TP BID [facility] Last Admin: 07/16/18 22:00 Dose: Not Given - Objective Vital Signs: Vital Signs Temperature 98.2 F 07/17/18 05:00 Pulse Rate 98 H 07/17/18 05:00 Respiratory Rate 22 H 07/17/18 05:00 Blood Pressure 88/54 L 07/17/18 05:00 O2 Sat by Pulse Oximetry (%) 97 07/16/18 21:00 Constitutional: Yes: Calm, Thin Eyes: Yes: WNL HENT: Yes: WNL Neck: Yes: WNL Cardiovascular: Yes: Regular Rate and Rhythm, S1, S2 Respiratory: Yes: Rhonchi (BILATERAL RHONCHI) Gastrointestinal: Yes: Normal Bowel Sounds, Soft Extremities: Yes: WNL Edema: No Labs: CBC, BMP 07/16/18 05:30 07/16/18 05:30 INR, PTT INR 1.28 (0.83-1.09) H 07/12/18 07:10 Assessment/Plan IMP ACUTE RESPIRATORY DISTRESS ? PNEUMONIA ? ASPIRATION ACUTE BRONCHITIS ASTHMA SEIZURES CEREBRAL PALSY MENTAL RETARDATION PLAN CONTINUE STEROIDS WILL INCREASE TO 40 Q 8 INHALED BRONCHODILATORS O2 ABX PER ID SEIZURE PRECAUTIONS ASPIRATION PRECAUTIONS ORAL PHARYNGEAL SUCTIONING CHEST X-RAY DR WALSH
[2018-07-17] MEDS: carBAMazepine 200 MG/10 ML UNIT-DOSE CUP GT SCH ×2 (09:25→21:46)
[2018-07-17] MEDS: HEPARIN NA (PORCINE) 5,000 UNITS/ML 1ML VIAL SQ SCH (09:25)
[2018-07-17] MEDS: levETIRAcetam 500 MG/5 ML ORAL SOLUTION (UNIT-DOSE CUPS) GT SCH ×2 (09:25→21:46)
[2018-07-17] MEDS: methylPREDNISolone NA SUCC 40 MG/1 ML VIAL IVPUSH SCH ×3 (09:25→17:50)
[2018-07-17] MEDS: METOPROLOL TARTRATE 25 MG TABLET (FP) GT SCH ×2 (09:25→21:43)
[2018-07-17] MEDS: CEFTRIAXONE 1 GM in DEXTROSE 5%-WATER - 50 ML IVPB SCH (09:25)
[2018-07-17] MEDS: TRIAMCINOLONE ACET 0.1% CREAM 15 GM TUBE TP SCH ×2 (09:26→21:41)
[2018-07-17 09:36] LABS: BASO % 0.2 % (0-2.0); EOS % 0.2 % (0-4.5); HEMATOCRIT 34.8 % (35.4-49); HEMOGLOBIN 11.2 GM/dL (11.7-16.9); LYMPH % 39.2 % (8-40); MCH 27.9 pg (25.7-33.7); MCHC 32.2 g/dl (32.0-35.9); MEAN CELL VOLUME 86.6 fl (80-96); MEAN PLT VOLUME 7.6 fl (7.5-11.1); MONO % 9.5 % (3.8-10.2); NEUT % 50.9 % (42.8-82.8); PLATELET COUNT 217 K/MM3 (134-434); RBC 4.01 M/mm3 (4.00-5.60); RDW 14.7 % (11.9-15.9); WHITE BLOOD COUNT 7.9 K/mm3 (4.0-10.0)
[2018-07-17 10:04] LABS: ALK PHOS 82 U/L (45-117); ANION GAP 8 MMOL/L (8-16); BILIRUBIN,TOTAL 0.4 mg/dL (0.2-1); BLOOD UREA NITROGEN 13 mg/dL (7-18); CALCIUM 7.9 mg/dL (8.5-10.1); CHLORIDE 110 mmol/L (98-107); CO2 27 mmol/L (21-32); CREATININE 0.3 mg/dL (0.55-1.3); GLUCOSE,RANDOM 84 mg/dL (74-106); MAGNESIUM 1.9 mg/dL (1.8-2.4); SGOT/AST 18 U/L (15-37); SGPT/ALT 33 U/L (13-61); SODIUM 145 mmol/L (136-145); TOT PROT 6.7 g/dl (6.4-8.2)
[2018-07-17 10:15] LABS: POTASSIUM 2.6 mmol/L (3.5-5.1)
[2018-07-17] MEDS ORDERED: ACETAMINOPHEN 1000 MG/100 ML VIAL (NON FORMULARY) IVPB PRN (11:29)
[2018-07-17] MEDS ORDERED: SODIUM CHLORIDE 1,000 ML IV SCH (11:29)
[2018-07-17] MEDS: KCL 10 MEQ IVPB 10 MEQ/100 ML INFUS.BAG IVPB SCH ×3 (11:49→13:57)
[2018-07-17] MEDS: SCOPOLAMINE HYDROBROMIDE 1 PATCH PATCH.TD72 TD SCH (12:41)
--- NOTE | 2018-07-17 13:17 | PN ---
Physical Exam: SUBJECTIVE: Patient seen and examined at the bedside. more awake and alert, smiling, making brief eye contact.. OBJECTIVE: for g/j tube exchange multiple hospitalizations for aspiration pnemonia Vital Signs Period Temp Pulse Resp BP Sys/Don Pulse Ox Last 24 Hr 98.2 F-99.1 F 73-107 20-22 88-119/40-75 97-97 GENERAL: The patient is in no acute distress, awake. profound MR, unable to make his needs known. HEAD: microcephaly ENT: Ears normal, nares patent, oropharynx clear without exudates. Moist mucous membranes. NECK: Normal range of motion, supple without lymphadenopathy, CHEST: mild rhonchi on anterior lobes. on nasal cannula HEART:Regular rate and rhythm ABDOMEN: Soft, nontender, normoactive bowel sounds. +peg tube EXTREMITIES: contracted upper and lower ext. mild bilateral hand edema noted. NEUROLOGICAL: more awake, more alert. looking around room. MUSCULOSKELETAL: contracted upper and lower ext. SKIN: Warm, Dry, normal turgor, no rashes or lesions noted Laboratory Results - last 24 hr 07/17/18 07/17/18 09:05 09:05 WBC 7.9 RBC 4.01 Hgb 11.2 L Hct 34.8 L MCV 86.6 MCH 27.9 MCHC 32.2 RDW 14.7 Plt Count 217 MPV 7.6 Absolute Neuts (auto) 4.0 Neutrophils % 50.9 Lymphocytes % 39.2 Monocytes % 9.5 Eosinophils % 0.2 D Basophils % 0.2 Nucleated RBC % 0 Sodium 145 Potassium 2.6 L* Chloride 110 H Carbon Dioxide 27 Anion Gap 8 BUN 13 Creatinine 0.3 L Creat Clearance w eGFR > 60 Random Glucose 84 Calcium 7.9 L Magnesium 1.9 Total Bilirubin 0.4 AST 18 ALT 33 Alkaline Phosphatase 82 Total Protein 6.7 Albumin 3.0 L Active Medications Generic Name Dose Route Start Last Admin Trade Name Freq PRN Reason Stop Dose Admin Acetaminophen 1,000 mg 07/17/18 11:29 Ofirmev Injection - IVPB Q6H PRN FEVER Albuterol/Ipratropium 1 amp 07/17/18 12:00 07/17/18 12:59 Duoneb - NEB 1 amp RQ4H ALKESANDR Administration Aspirin 81 mg 07/17/18 22:00 Asa - GT HS ALEKSANDR Baclofen 10 mg 07/17/18 12:00 07/17/18 12:45 Lioresal - GT 10 mg DAILY@0600,1200 ALEKSANDR Administration Baclofen 20 mg 07/17/18 18:00 Lioresal - GT DAILY@1800,0000 ALEKSANDR Carbamazepine 280 mg 07/17/18 22:00 Tegretol Oral Suspension - GT BID ALEKSANDR Clonazepam 1 mg 07/17/18 14:00 Klonopin - GT TID ALEKSANDR Clonidine 0.2 mg 07/17/18 22:00 Catapres - PO HS ALEKSANDR Heparin Sodium (Porcine) 5,000 unit 07/17/18 22:00 Heparin - SQ BID ALEKSANDR Potassium Chloride 10 meq in 100 mls @ 100 mls/hr 07/17/18 10:45 07/17/18 12: 43 Potassium Chloride 10 Meq Premix Ivpb - IVPB 07/17/18 13:44 100 mls/hr Q60M ALEKSANDR Administration Ceftriaxone Sodium 1 gm/ 50 mls @ 100 mls/hr 07/18/18 10:00 Dextrose IVPB DAILY [facility] Protocol Sodium Chloride 1,000 mls @ 50 mls/hr 07/17/18 11:29 07/17/18 12:43 Normal Saline - IV 50 mls/hr ASDIR ALEKSANDR Administration Levetiracetam 1,500 mg 07/17/18 22:00 Keppra Oral Solution - GT BID [facility] Methylprednisolone Sodium Succinate 40 mg 07/17/18 10:00 07/17/18 11:46 Solu-Medrol - IVPUSH Not Given Q8H-IV ALEKSANDR Metoprolol Tartrate 25 mg 07/16/18 15:13 07/17/18 09:25 Lopressor - GT Not Given BID [facility] Scopolamine HBr 1 patch 07/17/18 10:00 07/17/18 12:41 Transderm-Scop - TD 1 patch Q72H ALEKSANDR Administration Triamcinolone Acetonide 1 applic 07/17/18 22:00 Aristocort 0.1% Cream - TP BID [facility] ASSESSMENT/PLAN: Patient is a 27 year old male with a significant past medical history of profound mental retardation, dysphagia, s/p peg insertion, seizures, hyponatremia and asthma. Patient presents to the ED on 07/12/2018, accompanied by his aide for fevers, increased work of breathing and increased weakness. problem list ------- profound mental retardation microcephaly dysphagia with gt seizures hyponatremia asthma aspiration pneumonia respiratory distress acute bronchitis ------ ID: Sepsis. likely secondary to aspiration pneumonia, vs cap vs. acute bronchitis. improving. Leukocytosis resolved. No fevers recorded. tachycardia resolved. Metopolol decreased secondary to hypotension. parameters added. Less congested, less dyspnea at rest. now on nasal cannula. Blood and urine negative for any growth so far On ceftriaxone per ID-possible change to GT antibiotics tomorrow. Duonebs ordered scheduled. Aspiration pneumonia. resolving. consider g tube change to g/j tube for recurrent asp. pna scopolamine patch placed for increased secretions. Card: Elevated troponins. not ACS per cardiology Tachycardia, resolved. Metoprolol decreased. cardiology following. Neuro: Seizures, resolved. Had 2 witnessed seizure since admission. no further seizure activity reported. On keppra, tegretol, baclophen. keppra and tegretol levels pending. Renal rhabdo, resolving. CPK 2300>600 with normal bun/creat gently hydrate and repeat cpk in a.m. fen NS @ 50/cchr - decreased for congestion. monitor electrolytes on jevity feeds, dietary consulted disposition. full code. Visit type - Emergency Visit Emergency Visit: Yes ED Registration Date: 07/12/18 Care time: The patient presented to the Emergency Department on the above date and was hospitalized for further evaluation of their emergent condition. - New Patient This patient is new to me today: No - Critical Care Critical Care patient: No - Discharge Referral Referred to [facility] Med P.C.: No
[2018-07-17] MEDS ORDERED: ACETAMINOPHEN 650 MG/20.3 ML ORAL SOLUTION (CUPS) GT PRN (16:59)
[2018-07-17] MEDS ORDERED: POTASSIUM CHLORIDE ORAL LIQUID 20 MEQ/15 ML GT ONE (21:00)
[2018-07-17] MEDS: cloNIDine HCL 0.1 MG TABLET PO SCH (21:48)
[2018-07-17] MEDS ORDERED: HEPARIN NA (PORCINE) 5,000 UNITS/ML 1ML VIAL SQ SCH (22:00)
[2018-07-17] MEDS: ASPIRIN 81 MG CHEWABLE TABLETS GT SCH (22:12)
[2018-07-18] MEDS: BACLOFEN 10 MG TABLET (FP) GT SCH ×5 (00:11→23:51)
[2018-07-18] MEDS: methylPREDNISolone NA SUCC 40 MG/1 ML VIAL IVPUSH SCH ×2 (02:47→10:01)
[2018-07-18] MEDS: clonazePAM 0.5 MG TABLET GT SCH ×3 (05:46→21:55)
[2018-07-18] MEDS: ALBUTEROL SO4 2.5/IPRATROPIUM 0.5 INH SOL 3 ML VIAL.NEB. NEB SCH ×4 (07:20→21:00)
[2018-07-18 07:50] LABS: BASO % 0.1 % (0-2.0); EOS % 0.3 % (0-4.5); HEMATOCRIT 38.3 % (35.4-49); HEMOGLOBIN 12.4 GM/dL (11.7-16.9); LYMPH % 22.8 % (8-40); MCH 28.1 pg (25.7-33.7); MCHC 32.3 g/dl (32.0-35.9); MEAN PLT VOLUME 7.9 fl (7.5-11.1); MONO % 3.3 % (3.8-10.2); NEUT % 73.5 % (42.8-82.8); PLATELET COUNT 233 K/MM3 (134-434); RDW 14.4 % (11.9-15.9); WHITE BLOOD COUNT 5.1 K/mm3 (4.0-10.0)
[2018-07-18 07:53] LABS: INR 1.24 (0.83-1.09); PROTHROMBIN TIME (PATIENT) 14.7 SEC (9.7-13.0)
[2018-07-18 09:08] LABS: ALBUMIN 3.2 g/dl (3.4-5.0); ALK PHOS 87 U/L (45-117); ANION GAP 9 MMOL/L (8-16); BILIRUBIN,TOTAL 0.3 mg/dL (0.2-1); BLOOD UREA NITROGEN 7 mg/dL (7-18); CALCIUM 8.6 mg/dL (8.5-10.1); CHLORIDE 103 mmol/L (98-107); CO2 28 mmol/L (21-32); CREATININE 0.3 mg/dL (0.55-1.3); GLUCOSE,RANDOM 104 mg/dL (74-106); MAGNESIUM 2.1 mg/dL (1.8-2.4); POTASSIUM 3.6 mmol/L (3.5-5.1); SGOT/AST 18 U/L (15-37); SGPT/ALT 34 U/L (13-61); SODIUM 140 mmol/L (136-145); TOT PROT 7.4 g/dl (6.4-8.2)
[2018-07-18] MEDS ORDERED: DEXTROSE 5%-WATER - 50 ML IVPB ONE (10:00)
[2018-07-18] MEDS ORDERED: CEFTRIAXONE 1 GM in DEXTROSE 5%-WATER - 50 ML IVPB SCH (10:00)
[2018-07-18] MEDS ORDERED: cefTRIAXone SODIUM 1 GM VIAL ONE (10:00)
--- NOTE | 2018-07-18 10:29 | DS ---
Physical Exam: SUBJECTIVE: Patient seen and examined at the bedside. awake, alert, smiling. making brief eye contact. comfortable at rest. no overnight events reported OBJECTIVE: had g/j tube replacement to minimize the risk of aspiration scopalamine patch placed, to be changed q [address] Mayorga, accepted pt back to [facility] will need 1 more day of antibiotic to complete a 7 day course of antibiotics. ceftriaxone started Vital Signs Period Temp Pulse Resp BP Sys/Don Pulse Ox Last 24 Hr 98.3 F-98.8 F 19-73 18-75 100-114/50-60 97 PHYSICAL EXAM GENERAL: The patient is in no acute distress, awake. profound MR, unable to make his needs known. non verbal at baseline. HEAD: microcephaly ENT: Ears normal, nares patent, oropharynx clear without exudates. Moist mucous membranes. NECK: Normal range of motion, supple without lymphadenopathy, CHEST: mild rhonchi on anterior lobes. on nasal cannula HEART:Regular rate and rhythm ABDOMEN: Soft, nontender, normoactive bowel sounds. +peg tube EXTREMITIES: contracted upper and lower ext. mild bilateral hand edema noted. NEUROLOGICAL: more awake, more alert. looking around room. MUSCULOSKELETAL: contracted upper and lower ext. SKIN: Warm, Dry, normal turgor, no rashes or lesions noted LABS Laboratory Results - last 24 hr 07/13/18 07/17/18 07/18/18 20:00 15:50 06:30 WBC 5.1 RBC 4.40 Hgb 12.4 Hct 38.3 MCV 87.0 MCH 28.1 MCHC 32.3 RDW 14.4 Plt Count 233 MPV 7.9 Absolute Neuts (auto) 3.8 Neutrophils % 73.5 D Lymphocytes % 22.8 D Monocytes % 3.3 L Eosinophils % 0.3 Basophils % 0.1 Nucleated RBC % 0 PT with INR INR Sodium Potassium 3.4 L Chloride Carbon Dioxide Anion Gap BUN Creatinine Creat Clearance w eGFR Random Glucose Calcium Magnesium Total Bilirubin AST ALT Alkaline Phosphatase Creatine Kinase Creatine Kinase Index CK-MB (CK-2) Total Protein Albumin Levetiracetam 25.1 07/18/18 07/18/18 07/18/18 06:30 06:30 06:30 WBC RBC Hgb Hct MCV MCH MCHC RDW Plt Count MPV Absolute Neuts (auto) Neutrophils % Lymphocytes % Monocytes % Eosinophils % Basophils % Nucleated RBC % PT with INR 14.70 H INR 1.24 H Sodium 140 Potassium 3.6 Chloride 103 Carbon Dioxide 28 Anion Gap 9 BUN 7 Creatinine 0.3 L Creat Clearance w eGFR > 60 Random Glucose 104 Calcium 8.6 Magnesium 2.1 Total Bilirubin 0.3 AST 18 ALT 34 Alkaline Phosphatase 87 Creatine Kinase 262 Creatine Kinase Index 0.6 CK-MB (CK-2) 1.6 Total Protein 7.4 Albumin 3.2 L Levetiracetam HOSPITAL COURSE: Patient is a 27 year old male with a significant past medical history of profound mental retardation, dysphasia, s/p peg insertion, seizures, hyponatremia and asthma. Patient presents to the ED on 07/12/2018, accompanied by his aide for fevers, increased work of breathing and increased weakness. problem list ------- profound mental retardation microcephaly dysphagia with gt feeds seizures hyponatremia asthma aspiration pneumonia/respiratory distress/acute bronchitis ------ ID: Sepsis. likely secondary to aspiration pneumonia, vs cap vs. acute bronchitis.resolved Leukocytosis resolved. No fevers. tachycardia resolved. Metopolol stopped, as pt is no longer tachycardic and is bp is on the lower side Less congested. now on nasal cannula at 2 liters, can be weaned off at [facility] Blood and urine negative for any growth Continue Ceftin 250mg bid x 1 more day to complete 7 day course Duonebs ordered scheduled. Aspiration pneumonia. resolved patient had g/j tube exchanged today. for discharge back to [facility] Jevity 1.5 feeds to be started at 30cc, then in 4 hours can be increased to 40cc /hr. if tolerated w/o issue can be discharged back to [facility]. scopolamine patch placed for increased secretions q 3 days. taper off steriods as noted in discharge instructions. Card: Elevated troponins. not ACS per cardiology, resolved. Tachycardia, resolved. blood pressure, controlled. Neuro: Seizures, resolved. Had 2 witnessed seizure since admission. no further seizure activity reported. On keppra, tegretol, baclophen. keppra and tegretol levels are within normal limits. Renal rhabdo, resolved. Functional quadriplegia. total care with all ADLs. Date of Admission:07/12/18 Date of Discharge: 07/18/18 Minutes to complete discharge: 60 Discharge Summary Reason For Visit: SEPSIS Current Active Problems Elevated prolactin level (Acute) Low TSH level (Acute) Sepsis (Acute) Condition: Improved - Instructions Diet, Activity, Other Instructions: Mr. Lara: You were admitted to [facility] on 07/12/2018 for sepsis secondary to aspiration pneumonia. Here are our recommendations: #Sepsis. secondary to aspiration pneumonia.resolved You have improved and we will be discharging you back to [facility]. We have treated you with IV antibiotics of Ceftriaxone and your last dose will be converted to pill form to be given via your GTube. (ceftin 250mg twice per day at 8am and 8pm -take on 07/19/2018. this is your last dose. We gave you an IV form during your stay at the hospital) Your Blood and urine cultures are negative for any growth, RSV negative. We recommend that you continue the duonebs/albuterol nebulizers as needed. #Aspiration pneumonia. resolved Please elevate the HOB to 45 degrees at all times during feeds. If care are to be given to patient, please stop the feeds. Patient had a G/J tube placed today 07/18/2018. Jevity feeds should be given through the J tube, medications should be given through the G tube. scopolamine patch placed for increased secretions q 3 days. Patient was treated with steroids during hospitalization. We virgen send him home with a taper as follows: On 07/19/2018 take Prednisone 40mg by GT at 8am - once per day On 07/20/2018 take Prednisone 30mg by GT at 8am - once per day On 07/21/2018 take Prednisone 20mg by GT at 8am - once per day On 07/22/2018 take Prednisone 10mg by GT at 8am - once per day - this is your last dose #Seizures, resolved. Had 2 witnessed seizures during hospitalization. no further seizure activity reported. On keppra, tegretol, baclophen. keppra and tegretol levels are within normal limits. Low TSH leve. @ 0.25. Please repeat as an outpatient. rhabdo, resolved. cpk elevated on admission, treated with IVF and now are within normal limits. Date of Admission:07/12/18 Date of Discharge: 07/18/18 Disposition: [facility] FACILITY - Home Medications Comprehensive Discharge Medication List: Ambulatory Orders Acetaminophen [Tylenol] 480 mg GT PRN PRN 05/23/15 levETIRAcetam [Keppra Oral Solution -] 1,500 mg GT BID 01/19/15 Aspirin [ASA -] 81 mg GT HS 03/17/18 Carbamazepine [Tegretol -] 280 mg GT BID 03/17/18 Cholecalciferol (Vitamin D3) [Vitamin D3] 2,000 unit GT DAILY 03/17/18 Omeprazole Magnesium [Prilosec] 20 mg GT DAILY 03/17/18 Tamsulosin HCl [Flomax -] 0.4 mg GT DAILY 03/17/18 cloNIDine HCL [Catapres -] 0.2 mg PO HS 03/17/18 clonazePAM [KlonoPIN -] 1 mg GT TID 03/17/18 Baclofen [Lioresal -] 10 mg PO DAILY@0600,1200 tablet 03/21/18 Baclofen [Lioresal -] 20 mg GT DAILY@1800,0000 tablet 03/21/18 Bisacodyl 10 mg RC PRN PRN 07/12/18 Budesonide [Pulmicort 0.5 mg Nebulizer -] 1 neb NEB BID 07/12/18 Cholecalciferol (Vitamin D3) [Vitamin D3] 2,000 unit PO HS 07/12/18 Diazepam [Diastat Acudial] 20 mg RC PRN PRN 07/12/18 Ipratropium/Albuterol Sulfate [Iprat-Albut 0.5-3(2.5) mg/3 ml] 3 ml IH QID PRN 07/12/18 Lactose-Reduced Food/Fiber [Jevity 1.5 Hermes Liquid] 948 ml GT BID 07/12/18 Nystatin Ointment [Mycostatin Ointment -] 1 applic TP BID 07/12/18 Triamcinolone 0.1% Cream [Aristocort] 1 applic TP BID 07/12/18 This patient is new to me today: No Emergency Visit: Yes ED Registration Date: 07/12/18 Care time: The patient presented to the Emergency Department on the above date and was hospitalized for further evaluation of their emergent condition. Critical Care patient: No - Discharge Referral Referred to [facility] Med P.C.: No
[2018-07-18] MEDS ORDERED: PT OWN MED DRAWER 7, Y5N ONE ×2 (12:10→21:23)
[2018-07-18] MEDS: levETIRAcetam 500 MG/5 ML ORAL SOLUTION (UNIT-DOSE CUPS) GT SCH ×2 (12:18→21:54)
[2018-07-18] MEDS: TRIAMCINOLONE ACET 0.1% CREAM 15 GM TUBE TP SCH ×2 (12:18→21:54)
[2018-07-18] MEDS: carBAMazepine 200 MG/10 ML UNIT-DOSE CUP GT SCH ×2 (12:18→21:55)
[2018-07-18] MEDS: METOPROLOL TARTRATE 25 MG TABLET (FP) GT SCH (12:27)
--- NOTE | 2018-07-18 12:27 | PN ---
Progress Note (short form) - Note Progress Note: PULMONARY Pt nonverbal. No fevers recorded. Vital Signs Period Temp Pulse Resp BP Sys/Don Pulse Ox Last 24 Hr 98.3 F-98.8 F 19-73 18-75 100-131/50-66 97 Gen: NAD at rest Heart: RRR Lung: scattered rhonchi Abd: soft, nontender Ext: contracted CBC, BMP 07/18/18 06:30 07/18/18 06:30 Active Medications Acetaminophen (Tylenol Oral Solution -) 650 mg GT Q6H PRN PRN Reason: PAIN LEVEL 6-10 Albuterol/Ipratropium (Duoneb -) 1 amp NEB RQ4H [facility] Last Admin: 07/18/18 11:08 Dose: Not Given Aspirin (Asa -) 81 mg GT HS [facility] Last Admin: 07/17/18 22:12 Dose: 81 mg Baclofen (Lioresal -) 10 mg GT DAILY@0600,1200 [facility] Last Admin: 07/18/18 05:46 Dose: Not Given Baclofen (Lioresal -) 20 mg GT DAILY@1800,0000 [facility] Last Admin: 07/18/18 00:11 Dose: 20 mg Carbamazepine (Tegretol Oral Suspension -) 280 mg GT BID [facility] Last Admin: 07/17/18 21:46 Dose: 280 mg Clonazepam (Klonopin -) 1 mg GT TID [facility] Last Admin: 07/18/18 05:46 Dose: Not Given Clonidine (Catapres -) 0.2 mg PO HS [facility] Last Admin: 07/17/18 21:48 Dose: Not Given Heparin Sodium (Porcine) (Heparin -) 5,000 unit SQ BID [facility] Last Admin: 07/17/18 21:45 Dose: 5,000 unit Ceftriaxone Sodium 1 gm/ (Dextrose) 50 mls @ 100 mls/hr IVPB DAILY [facility]; Protocol Last Admin: 07/18/18 10:01 Dose: 100 mls/hr Sodium Chloride (Normal Saline -) 1,000 mls @ 50 mls/hr IV ASDIR [facility] Last Admin: 07/17/18 12:43 Dose: 50 mls/hr Levetiracetam (Keppra Oral Solution -) 1,500 mg GT BID [facility] Last Admin: 07/17/18 21:46 Dose: 1,500 mg Scopolamine HBr (Transderm-Scop -) 1 patch TD Q72H [facility] Last Admin: 07/17/18 12:41 Dose: 1 patch Triamcinolone Acetonide (Aristocort 0.1% Cream -) 1 applic TP BID [facility] Last Admin: 07/17/18 21:41 Dose: 1 applic A/P Pneumonia Acute Bronchitis Seizure Disorder Mental Retardation Cerebral Palsy Functional Quadriplegia - complete antibiotics - f/u cultures - O2 to keep Spo2 >90% - can change steroids to PO prednisone and taper - DVT prophylaxis
[2018-07-18] MEDS: cloNIDine HCL 0.1 MG TABLET PO SCH (21:54)
[2018-07-18] MEDS: ASPIRIN 81 MG CHEWABLE TABLETS GT SCH (21:54)
[2018-07-19] MEDS: ALBUTEROL SO4 2.5/IPRATROPIUM 0.5 INH SOL 3 ML VIAL.NEB. NEB SCH ×6 (00:30→20:38)
[2018-07-19] MEDS: BACLOFEN 10 MG TABLET (FP) GT SCH ×3 (05:32→18:07)
[2018-07-19] MEDS: clonazePAM 0.5 MG TABLET GT SCH ×3 (05:33→22:06)
[2018-07-19] MEDS ORDERED: predniSONE 20 MG TABLET (UD) PO ONE (08:00)
[2018-07-19] MEDS ORDERED: CEFUROXIME AXETIL 250 MG TABLET GT ONE ×2 (08:00)
--- NOTE | 2018-07-19 08:55 | PN ---
Progress Note (short form) - Note Progress Note: Patient is lying in bed with no acute distress. No fever or chills. Vital Signs Temperature 98.4 F 07/19/18 07:51 Pulse Rate 78 07/19/18 07:51 Respiratory Rate 18 07/19/18 07:51 Blood Pressure 119/64 07/19/18 07:51 O2 Sat by Pulse Oximetry (%) 97 07/18/18 21:00 GENERAL: The patient is in no acute distress, awake. profound MR, non verbal at baseline. HEAD: microcephaly ENT: Ears normal, oropharynx clear without exudates. Moist mucous membranes. NECK: Normal range of motion, supple without lymphadenopathy, CHEST: decreased BS BL , improving . on nasal cannula HEART:Regular rate and rhythm ABDOMEN: Soft, nontender, normoactive bowel sounds. +peg tube EXTREMITIES: contracted upper and lower ext. mild bilateral hand edema noted. NEUROLOGICAL: more awake, more alert. looking around room. MUSCULOSKELETAL: contracted upper and lower ext. SKIN: Warm, Dry, normal turgor, no rashes or lesions noted CBCD WBC 5.1 K/mm3 (4.0-10.0) 07/18/18 06:30 RBC 4.40 M/mm3 (4.00-5.60) 07/18/18 06:30 Hgb 12.4 GM/dL (11.7-16.9) 07/18/18 06:30 Hct 38.3 % (35.4-49) 07/18/18 06:30 MCV 87.0 fl (80-96) 07/18/18 06:30 MCHC 32.3 g/dl (32.0-35.9) 07/18/18 06:30 RDW 14.4 % (11.9-15.9) 07/18/18 06:30 Plt Count 233 K/MM3 (134-434) 07/18/18 06:30 MPV 7.9 fl (7.5-11.1) 07/18/18 06:30 CMP Sodium 140 mmol/L (136-145) 07/18/18 06:30 Potassium 3.6 mmol/L (3.5-5.1) 07/18/18 06:30 Chloride 103 mmol/L (98-107) 07/18/18 06:30 Carbon Dioxide 28 mmol/L (21-32) 07/18/18 06:30 Anion Gap 9 MMOL/L (8-16) 07/18/18 06:30 BUN 7 mg/dL (7-18) 07/18/18 06:30 Creatinine 0.3 mg/dL (0.55-1.3) L 07/18/18 06:30 Creat Clearance w eGFR > 60 (>60) 07/18/18 06:30 Random Glucose 104 mg/dL (74-106) 07/18/18 06:30 Calcium 8.6 mg/dL (8.5-10.1) 07/18/18 06:30 Total Bilirubin 0.3 mg/dL (0.2-1) 07/18/18 06:30 AST 18 U/L (15-37) 07/18/18 06:30 ALT 34 U/L (13-61) 07/18/18 06:30 Alkaline Phosphatase 87 U/L (45-117) 07/18/18 06:30 Total Protein 7.4 g/dl (6.4-8.2) 07/18/18 06:30 Albumin 3.2 g/dl (3.4-5.0) L 07/18/18 06:30 CARDIAC ENZYMES Creatine Kinase 262 IU/L (26-308) 07/18/18 06:30 Troponin I 0.14 ng/ml (0.00-0.05) H 07/12/18 23:00 Current Medications Generic Name Dose Route Start Last Admin Trade Name Freq PRN Reason Stop Dose Admin Acetaminophen 650 mg 07/17/18 16:59 Tylenol Oral Solution - GT Q6H PRN PAIN LEVEL 6-10 Albuterol/Ipratropium 1 amp 07/17/18 12:00 07/19/18 04:30 Duoneb - NEB 1 amp RQ4H ALEKSANDR Administration Aspirin 81 mg 07/17/18 22:00 07/18/18 21:54 Asa - GT 81 mg HS ALEKSANDR Administration Baclofen 10 mg 07/17/18 12:00 07/19/18 05:32 Lioresal - GT 10 mg DAILY@0600,1200 ALEKSANDR Administration Baclofen 20 mg 07/17/18 18:00 07/18/18 23:51 Lioresal - GT 20 mg DAILY@1800,0000 ALEKSANDR Administration Carbamazepine 280 mg 07/17/18 22:00 07/18/18 21:55 Tegretol Oral Suspension - GT 280 mg BID ALEKSANDR Administration Clonazepam 1 mg 07/17/18 14:00 07/19/18 05:33 Klonopin - GT 1 mg TID ALEKSANDR Administration Clonidine 0.2 mg 07/17/18 22:00 07/18/18 21:54 Catapres - PO 0.2 mg HS ALEKSANDR Administration Heparin Sodium (Porcine) 5,000 unit 07/17/18 22:00 07/17/18 21:45 Heparin - SQ 5,000 unit BID ALEKSANDR Administration Levetiracetam 1,500 mg 07/17/18 22:00 07/18/18 21:54 Keppra Oral Solution - GT 1,500 mg BID ALEKSANDR Administration Scopolamine HBr 1 patch 07/17/18 10:00 07/17/18 12:41 Transderm-Scop - TD 1 patch Q72H ALEKSANDR Administration Triamcinolone Acetonide 1 applic 07/17/18 22:00 07/18/18 21:54 Aristocort 0.1% Cream - TP 1 applic BID ALEKSANDR Administration Home Medications Medication Instructions Recorded Acetaminophen [Tylenol] 480 mg GT PRN PRN 01/19/15 levETIRAcetam [Keppra Oral 1,500 mg GT BID 01/19/15 Solution -] Aspirin [ASA -] 81 mg GT HS 03/17/18 Carbamazepine [Tegretol -] 280 mg GT BID 03/17/18 Cholecalciferol (Vitamin D3) 2,000 unit GT DAILY 03/17/18 [Vitamin D3] Omeprazole Magnesium [Prilosec] 20 mg GT DAILY 03/17/18 Tamsulosin HCl [Flomax -] 0.4 mg GT DAILY 03/17/18 cloNIDine HCL [Catapres -] 0.2 mg PO HS 03/17/18 clonazePAM [KlonoPIN -] 1 mg GT TID 03/17/18 Baclofen [Lioresal -] 10 mg PO DAILY@0600,1200 tablet 03/21/18 Baclofen [Lioresal -] 20 mg GT DAILY@1800,0000 tablet 03/21/18 Bisacodyl 10 mg RC PRN PRN 07/12/18 Budesonide [Pulmicort 0.5 mg 1 neb NEB BID 07/12/18 Nebulizer -] Cholecalciferol (Vitamin D3) 2,000 unit PO HS 07/12/18 [Vitamin D3] Diazepam [Diastat Acudial] 20 mg RC PRN PRN 07/12/18 Ipratropium/Albuterol Sulfate 3 ml IH QID PRN 07/12/18 [Iprat-Albut 0.5-3(2.5) mg/3 ml] Lactose-Reduced Food/Fiber [Jevity 948 ml GT BID 07/12/18 1.5 Hermes Liquid] Nystatin Ointment [Mycostatin 1 applic TP BID 07/12/18 Ointment -] Triamcinolone 0.1% Cream 1 applic TP BID 07/12/18 [Aristocort 0.1% Cream -] Albuterol 2.5/Ipratropium 0.5 1 amp NEB RQ4H amp 07/18/18 [Duoneb -] Cefuroxime Axetil Suspension 250 mg PO BID #100 ml 07/18/18 [Ceftin Oral Suspension -] Prednisone 10 mg PO DAILY #10 tablet 07/18/18 Scopolamine Hydrobromide 1 patch TD Q72H #10 patch.td72 07/18/18 [Transderm-Scop -] Microbiology 07/14/18 15:25 Nasopharyngeal Swab Respiratory Virus (PCR) - Final----> Positive for Rhinovirus the culture 07/12/18 06:25 Blood - Peripheral Venous Blood Culture - Final NO GROWTH AFTER 5 DAYS INCUBATION 07/12/18 06:30 Blood - Peripheral Venous Blood Culture - Final NO GROWTH AFTER 5 DAYS INCUBATION 07/12/18 18:30 Nasopharyngeal Swab Respiratory Virus (PCR) - Final 07/12/18 18:30 Urine For Antigen Detection Legionella Antigen - Final 07/12/18 18:30 Urine For Antigen Detection Streptococcus pneumoniae Antigen (M - Final 07/12/18 07:10 Urine - Urine - Catheterized Urine Culture - Final NO GROWTH OBTAINED 07/12/18 08:26 Nasopharyngeal Swab Influenza Types A,B Antigen - Final 07/12/18 08:26 Nasopharyngeal Swab - Final A/P: Patient is a 27 year old male with a significant PMHx of profound mental retardation, dysphagia, s/p peg insertion, seizures, hyponatremia and asthma. Patient presents to the ED on 07/12/2018, accompanied by his aide for fevers, labored breathing and lethargy . # S/p Sepsis. likely secondary to aspiration pneumonia /acute bronchitis. improving. requiring o2 around 2-3 liter. off antibiotic now Positive for Rhinovirus the culture. will place him on contact isolation. scopolamine patch placed for increased secretions. #Aspiration pneumonia. resolving. G- tube changed j-tube for recurrent asp. pna # Elevated troponins. not ACS per cardiology #Tachycardia, resolved. Metoprolol decreased. cardiology following. #Seizures, resolved. Had 2 witnessed seizure since admission. no further seizure activity reported. On keppra, tegretol, baclophen. keppra and tegretol levels pending. #Rhabdo, resolving. CPK 2300>600 with normal bun/cr. on jevity feeds, dietary consulted, disposition. full code. # hyponatremia improved dvt px: Heparin sq will need oxygen to go to [facility] in am discussed with 's today , is accepted for am. [facility] home will get oxygen tank for him. Visit type - Emergency Visit Emergency Visit: Yes ED Registration Date: 07/12/18 Care time: The patient presented to the Emergency Department on the above date and was hospitalized for further evaluation of their emergent condition. - New Patient This patient is new to me today: Yes Date on this admission: 07/19/18 - Critical Care Critical Care patient: No - Discharge Referral Referred to [facility] Med P.C.: No
[2018-07-19] MEDS ORDERED: PT OWN MED DRAWER 7, Y5N ONE (09:25)
[2018-07-19] MEDS: carBAMazepine 200 MG/10 ML UNIT-DOSE CUP GT SCH ×2 (09:27→22:07)
[2018-07-19] MEDS: TRIAMCINOLONE ACET 0.1% CREAM 15 GM TUBE TP SCH ×2 (09:27→22:07)
[2018-07-19] MEDS: levETIRAcetam 500 MG/5 ML ORAL SOLUTION (UNIT-DOSE CUPS) GT SCH ×2 (09:27→22:07)
--- NOTE | 2018-07-19 11:16 | PN ---
Progress Note (short form) - Note Progress Note: PULMONARY Pt nonverbal. No fevers recorded but appears diaphoretic. Vital Signs Period Temp Pulse Resp BP Sys/Don Pulse Ox Last 24 Hr 98.1 F-99.2 F 71-115 18-20 95-149/60-96 97 Gen: NAD at rest Heart: RRR Lung: scattered rhonchi Abd: soft, nontender Ext: contracted CBC, BMP 07/18/18 06:30 07/18/18 06:30 Active Medications Acetaminophen (Tylenol Oral Solution -) 650 mg GT Q6H PRN PRN Reason: PAIN LEVEL 6-10 Albuterol/Ipratropium (Duoneb -) 1 amp NEB RQ4H [facility] Last Admin: 07/19/18 08:00 Dose: 1 amp Aspirin (Asa -) 81 mg GT HS [facility] Last Admin: 07/18/18 21:54 Dose: 81 mg Baclofen (Lioresal -) 10 mg GT DAILY@0600,1200 [facility] Last Admin: 07/19/18 05:32 Dose: 10 mg Baclofen (Lioresal -) 20 mg GT DAILY@1800,0000 [facility] Last Admin: 07/18/18 23:51 Dose: 20 mg Carbamazepine (Tegretol Oral Suspension -) 280 mg GT BID [facility] Last Admin: 07/19/18 09:27 Dose: 280 mg Clonazepam (Klonopin -) 1 mg GT TID [facility] Last Admin: 07/19/18 05:33 Dose: 1 mg Clonidine (Catapres -) 0.2 mg PO HS [facility] Last Admin: 07/18/18 21:54 Dose: 0.2 mg Heparin Sodium (Porcine) (Heparin -) 5,000 unit SQ BID [facility] Last Admin: 07/17/18 21:45 Dose: 5,000 unit Levetiracetam (Keppra Oral Solution -) 1,500 mg GT BID [facility] Last Admin: 07/19/18 09:27 Dose: 1,500 mg Scopolamine HBr (Transderm-Scop -) 1 patch TD Q72H [facility] Last Admin: 07/17/18 12:41 Dose: 1 patch Triamcinolone Acetonide (Aristocort 0.1% Cream -) 1 applic TP BID [facility] Last Admin: 07/19/18 09:27 Dose: 1 applic A/P Pneumonia Acute Bronchitis Seizure Disorder Mental Retardation Cerebral Palsy Functional Quadriplegia - completed antibiotics - O2 to keep Spo2 >90% - aspiration precautions - DVT prophylaxis
[2018-07-19] MEDS: ASPIRIN 81 MG CHEWABLE TABLETS GT SCH (22:06)
[2018-07-19] MEDS: cloNIDine HCL 0.1 MG TABLET PO SCH (22:16)
[2018-07-20] MEDS: BACLOFEN 10 MG TABLET (FP) GT SCH ×4 (00:10→17:12)
[2018-07-20] MEDS: ALBUTEROL SO4 2.5/IPRATROPIUM 0.5 INH SOL 3 ML VIAL.NEB. NEB SCH ×4 (00:43→16:01)
[2018-07-20] MEDS: clonazePAM 0.5 MG TABLET GT SCH ×2 (05:54→14:06)
[2018-07-20] MEDS: TRIAMCINOLONE ACET 0.1% CREAM 15 GM TUBE TP SCH (09:52)
[2018-07-20] MEDS: SCOPOLAMINE HYDROBROMIDE 1 PATCH PATCH.TD72 TD SCH (09:53)
[2018-07-20] MEDS: carBAMazepine 200 MG/10 ML UNIT-DOSE CUP GT SCH (09:56)
[2018-07-20] MEDS: levETIRAcetam 500 MG/5 ML ORAL SOLUTION (UNIT-DOSE CUPS) GT SCH (09:56)
--- NOTE | 2018-07-20 17:55 | DS ---
Physical Exam: SUBJECTIVE: Patient seen and examined, awake, alert, smiling. making brief eye contact. Comfortable at rest. no overnight events reported OBJECTIVE: Vital Signs Period Temp Pulse Resp BP Sys/Don Pulse Ox Last 24 Hr 97.9 F-98.7 F 73-110 18-20 92-136/56-77 94-99 PHYSICAL EXAM GENERAL: The patient is in no acute distress, awake. profound MR, unable to make his needs known. non verbal at baseline. HEAD: microcephaly ENT: Ears normal, nares patent, oropharynx clear without exudates. Moist mucous membranes. NECK: Normal range of motion, supple without lymphadenopathy, CHEST: mild rhonchi on anterior lobes. on nasal cannula HEART:Regular rate and rhythm ABDOMEN: Soft, nontender, normoactive bowel sounds. +peg tube EXTREMITIES: contracted upper and lower ext. mild bilateral hand edema noted. NEUROLOGICAL: more awake, more alert. looking around room. MUSCULOSKELETAL: contracted upper and lower ext. SKIN: Warm, Dry, normal turgor, no rashes or lesions noted LABS HOSPITAL COURSE: Date of Admission:07/12/18 Date of Discharge: 07/20/18 27 year old male with a PMH significant for profound mental retardation, dysphasia, s/p peg insertion, seizures, hyponatremia and asthma. Patient presented to the ED on 07/12/2018 with fever, weakness, and SOB. He was admitted for sepsis and terated with IV antibioties. Sepsis - Resolved; likely secondary to aspiration pneumonia, vs HAP vs. acute bronchitis. - Completed course of Ceftin and Ceftriaxone - Completed steroid taper - Metoprolol d/gerry for tachycardia - Weaned off nasal cannula, passed, pre and post test - Blood and urine cultures negative - G/j tube exchanged Seizures - Resolved; had 2 witnessed seizure since admission, no further seizure activity reported. - Continue keppra, tegretol, baclophen. - keppra and tegretol levels WNL Functional quadriplegia. total care with all ADLs. Discussed with Dr. Mayorga, accepted pt back to [facility] Minutes to complete discharge: 35 Discharge Summary Reason For Visit: SEPSIS Current Active Problems Elevated prolactin level (Acute) Low TSH level (Acute) Sepsis (Acute) Condition: Improved - Instructions Diet, Activity, Other Instructions: Mr. Lara: You were admitted to [facility] on 07/12/2018 for sepsis secondary to aspiration pneumonia you also had two seizures during your hospitalization. Here are our recommendations: #Sepsis. secondary to aspiration pneumonia.resolved You have improved and we will be discharging you back to [place]. We have treated you with IV antibiotics of Ceftriaxone and Ceftin. Your Blood and urine cultures are negative for any growth, RSV negative. We recommend that you continue the duonebs/albuterol nebulizers as needed. Continue supplemental oxygen as needed and titrate off as tolerated. #Aspiration pneumonia. resolved Please elevate the HOB to 45 degrees at all times during feeds. If care are to be given to patient, please stop the feeds. Patient had a G/J tube [id number]. Jevity feeds should be given through the J tube, medications should be given through the G tube. scopolamine patch placed for increased secretions q 3 days. Patient was treated with steroids during hospitalization. We virgen send him home with a taper as follows: On 07/21/2018 take Prednisone 20mg by GT at 8am - once per day On 07/22/2018 take Prednisone 10mg by GT at 8am - once per day - this is your last dose #Seizures, resolved. Had 2 witnessed seizures during hospitalization. no further seizure activity reported. On keppra, tegretol, baclophen. keppra and tegretol levels are within normal limits. Low TSH level. @ 0.25. Please repeat levels as an outpatient. rhabdo, resolved. cpk elevated on admission, treated with IVF and now are within normal limits. Date of Admission:07/12/18 Date of Discharge: 07/20/18 Disposition: [facility] - Home Medications Comprehensive Discharge Medication List: Ambulatory Orders Acetaminophen [Tylenol] 480 mg GT PRN PRN 01/19/15 levETIRAcetam [Keppra Oral Solution -] 1,500 mg GT BID 01/19/15 Aspirin [ASA -] 81 mg GT HS 03/17/18 Carbamazepine [Tegretol -] 280 mg GT BID 03/17/18 Cholecalciferol (Vitamin D3) [Vitamin D3] 2,000 unit GT DAILY 03/17/18 Omeprazole Magnesium [Prilosec] 20 mg GT DAILY 03/17/18 Tamsulosin HCl [Flomax -] 0.4 mg GT DAILY 03/17/18 cloNIDine HCL [Catapres -] 0.2 mg PO HS 03/17/18 clonazePAM [KlonoPIN -] 1 mg GT TID 03/17/18 Baclofen [Lioresal -] 10 mg PO DAILY@0600,1200 tablet 03/21/18 Baclofen [Lioresal -] 20 mg GT DAILY@1800,0000 tablet 03/21/18 Bisacodyl 10 mg RC PRN PRN 07/12/18 Budesonide [Pulmicort 0.5 mg Nebulizer -] 1 neb NEB BID 07/12/18 Cholecalciferol (Vitamin D3) [Vitamin D3] 2,000 unit PO HS 07/12/18 Diazepam [Diastat Acudial] 20 mg RC PRN PRN 07/12/18 Ipratropium/Albuterol Sulfate [Iprat-Albut 0.5-3(2.5) mg/3 ml] 3 ml IH QID PRN 07/12/18 Lactose-Reduced Food/Fiber [Jevity 1.5 Hermes Liquid] 948 ml GT BID 07/12/18 Nystatin Ointment [Mycostatin Ointment -] 1 applic TP BID 07/12/18 Triamcinolone 0.1% Cream [Aristocort 0.1% Cream -] 1 applic TP BID 07/12/18 Albuterol 2.5/Ipratropium 0.5 [Duoneb -] 1 amp NEB RQ4H amp 07/18/18 Cefuroxime Axetil Suspension [Ceftin Oral Suspension -] 250 mg PO BID #100 ml Prednisone 10 mg PO DAILY #10 tablet 07/18/18 Scopolamine Hydrobromide [Transderm-Scop -] 1 patch TD Q72H #10 patch.td72 07/18 This patient is new to me today: Yes Date on this admission: 07/20/18 Emergency Visit: No Critical Care patient: No - Discharge Referral Referred to [facility] No
[2018-07-20 19:23] VITALS: BP 104/64; PULSE 106; TEMP 99.1
== END 2018-07-20 19:05 | DRG 720 ==
LOC: JER 03:19 → JERBED 12:44 → J4W 07-13 00:41 → J6S 07-17 10:39
PROVIDERS: ADMIT Internal Medicine; ATTEND Nurse Practitioner Adult Health
DX: A41.9 Sepsis, unspecified organism (principal); J69.0 Pneumonitis due to inhalation of food and vomit; R53.2 Functional quadriplegia; E87.2 Acidosis; M62.82 Rhabdomyolysis; F73 Profound intellectual disabilities; R56.9 Unspecified convulsions; E87.1 Hypo-osmolality and hyponatremia; R13.10 Dysphagia, unspecified; Z93.1 Gastrostomy status; J44.9 Chronic obstructive pulmonary disease, unspecified; G80.9 Cerebral palsy, unspecified; J45.909 Unspecified asthma, uncomplicated; J20.9 Acute bronchitis, unspecified; Q02 Microcephaly
CPT/HCPCS: 36415; 49440; 71045-TC-FY; 74177-TC; 80053; 80061; 80156; 80177; 81003; 82550; 82553; 82803; 82962; 83605; 83721; 83735; 84100; 84132; 84146; 84439; 84443; 84484; 85025; 85610; 85730; 87040; 87086; 87633; 87804; 87899; 93005; 93010; 93306-TC; 94640; 94761; 99285-25; J0131; J0475; J0735; J1644; J7030

== ENCOUNTER 2018-08-05 01:27 | Observation (INO) | payer OTHER ==
--- NOTE | 2018-08-05 02:37 | PDOC ---
History of Present Illness - General Chief Complaint: G Tube Problem Stated Complaint: GT TUBE CLOGGED Time Seen by Provider: 08/05/18 02:23 History Source: Alf Records Exam Limitations: Clinical Condition - History of Present Illness Initial Comments: 08/05/18 02:32 The patient is a 27M with a PMH of profound MR (nonverbal), CP w/ spastic quadriparesis, severe developmental delay, intractable seizures, cortical blindness, asthma who presents to the ER for clogged JT and GT. The patient is unable to provide any history. The history is entirely from his medical records. Past History - Past Medical History Allergies/Adverse Reactions: Allergies Allergy/AdvReac Type Severity Reaction Status Date / Time Beef Containing Products Allergy Unknown Verified 07/12/18 08:20 erythromycin base Allergy Verified 07/12/18 08:43 phenobarbital Allergy Verified 07/12/18 08:19 venom-honey bee Allergy Verified 07/12/18 08:19 [bee venom (honey bee)] Home Medications: Ambulatory Orders Acetaminophen [Tylenol] 480 mg GT PRN PRN 01/19/15 levETIRAcetam [Keppra Oral Solution -] 1,500 mg GT BID 01/19/15 Aspirin [ASA -] 81 mg GT HS 03/17/18 Carbamazepine [Tegretol -] 280 mg GT BID 03/17/18 Cholecalciferol (Vitamin D3) [Vitamin D3] 2,000 unit GT DAILY 03/17/18 Omeprazole Magnesium [Prilosec] 20 mg GT DAILY 03/17/18 Tamsulosin HCl [Flomax -] 0.4 mg GT DAILY 03/17/18 cloNIDine HCL [Catapres -] 0.2 mg PO HS 03/17/18 clonazePAM [KlonoPIN -] 1 mg GT TID 03/17/18 Baclofen [Lioresal -] 10 mg PO DAILY@0600,1200 tablet 03/21/18 Baclofen [Lioresal -] 20 mg GT DAILY@1800,0000 tablet 03/21/18 Bisacodyl 10 mg RC PRN PRN 07/12/18 Budesonide [Pulmicort 0.5 mg Nebulizer -] 1 neb NEB BID 07/12/18 Cholecalciferol (Vitamin D3) [Vitamin D3] 2,000 unit PO HS 07/12/18 Diazepam [Diastat Acudial] 20 mg RC PRN PRN 07/12/18 Ipratropium/Albuterol Sulfate [Iprat-Albut 0.5-3(2.5) mg/3 ml] 3 ml IH QID PRN 07/12/18 Lactose-Reduced Food/Fiber [Jevity 1.5 Hermes Liquid] 948 ml GT BID 07/12/18 Nystatin Ointment [Mycostatin Ointment -] 1 applic TP BID 07/12/18 Triamcinolone 0.1% Cream [Aristocort 0.1% Cream -] 1 applic TP BID 07/12/18 Albuterol 2.5/Ipratropium 0.5 [Duoneb -] 1 amp NEB RQ4H amp 07/18/18 Cefuroxime Axetil Suspension [Ceftin Oral Suspension -] 250 mg PO BID #100 ml Prednisone 10 mg PO DAILY #10 tablet 07/18/18 Scopolamine Hydrobromide [Transderm-Scop -] 1 patch TD Q72H #10 patch.td72 07/18 Asthma: Yes COPD: Yes (asthma, aspiration pnuemonia and respiratory distress) Dementia: Yes (mental retardation) GI Disorders: Yes (dysphagia, s/p peg insertion) Psychiatric Problems: (hyponatremia (due to meds)) Seizures: Yes - Surgical History Orthopedic Surgery: (Left Hip Osteotomy) - Immunization History Immunization Up to Date: Yes - Suicide/Smoking/Psychosocial Hx Smoking History: Never smoked Have you smoked in the past 12 months: No Number of Cigarettes Smoked Daily: 0 Cigars Per Day: 0 Hx Alcohol Use: No Drug/Substance Use Hx: No Substance Use Type: None Hx Substance Use Treatment: No Review of Systems - Review of Systems Able to Perform ROS?: No (nonverbal) *Physical Exam - Physical Exam General Appearance: Yes: Nourished. No: Apparent Distress, Mild Distress HEENT: negative: Normal Voice Respiratory/Chest: positive: Lungs Clear, Normal Breath Sounds Cardiovascular: positive: Regular Rhythm, Regular Rate, S1, S2. negative: Diastolic Murmur, Systolic Murmur Gastrointestinal/Abdominal: positive: Flat, Soft, Other (G tube present). negative: Tender Musculoskeletal: positive: Muscle Spasm ED Treatment Course - LABORATORY CBC & Chemistry Diagram: 08/05/18 05:20 08/05/18 05:20 Medical Decision Making - Medical Decision Making 08/05/18 04:26 The patient is a 27M with MMP who presents to the ER with complaints of JG tube dysfunction. Due to the fact that it is also a J tube which was placed by IR on 07/19/18, will place pt in obs and have IR replace the tube. Microblog sent. Will order labs, T&S, and PT/INR. 08/05/18 07:15 Labs WNL. Order placed for IR replacement. I have endorsed the pt to Dr. Ferrari for admission. *DC/Admit/Observation/Transfer Diagnosis at time of Disposition: Gastrostomy tube dysfunction - Discharge Dispostion Condition at time of disposition: Guarded Decision to Admit order: Yes - Referrals - Patient Instructions - Post Discharge Activity
--- NOTE | 2018-08-05 04:09 | PDOC ---
Attending Attestation - Resident Resident Name: Chuck Russo - ED Attending Attestation I have performed the following: I have examined & evaluated the patient, The case was reviewed & discussed with the resident, I agree w/resident's findings & plan - HPI HPI: 08/05/18 04:09 27y/o M asphyxiation at with severe MR and developmental delay, h/o aspiration s/p GJ tube placement by IR on 07/19/18 presents now for tube dysfunction - leak from G-tube tract, obstructed J-tube tract. - Physicial Exam PE: 08/05/18 04:13 afebrile nonverbal, contracted, wheelchair bound GJ tube in place: confirmed leak from distal portion of tube when infusing fluids through G-tube portion, unable to infuse through J-tube portion abd otherwise soft/nt/nd - Medical Decision Making 08/05/18 04:15 27y/o M with GJ tube dysfunction, will need replacement obs med-surg for IR procedure in AM
[2018-08-05 06:03] LABS: BASO % 0.6 % (0-2.0); EOS % 1.1 % (0-4.5); HEMATOCRIT 40.4 % (35.4-49); HEMOGLOBIN 13.3 GM/dL (11.7-16.9); LYMPH % 34.3 % (8-40); MCH 28.5 pg (25.7-33.7); MEAN CELL VOLUME 86.6 fl (80-96); MEAN PLT VOLUME 7.5 fl (7.5-11.1); PLATELET COUNT 291 K/MM3 (134-434); RBC 4.66 M/mm3 (4.00-5.60); RDW 14.8 % (11.9-15.9); WHITE BLOOD COUNT 6.4 K/mm3 (4.0-10.0)
[2018-08-05 06:24] LABS: INR 1.19 (0.83-1.09); PROTHROMBIN TIME (PATIENT) 14.1 SEC (9.7-13.0)
[2018-08-05 06:29] LABS: ALBUMIN 3.3 g/dl (3.4-5.0); ALK PHOS 120 U/L (45-117); ANION GAP 8 MMOL/L (8-16); BILIRUBIN,TOTAL 0.2 mg/dL (0.2-1); BLOOD UREA NITROGEN 5 mg/dL (7-18); CALCIUM 8.5 mg/dL (8.5-10.1); CHLORIDE 102 mmol/L (98-107); CO2 26 mmol/L (21-32); CREATININE 0.3 mg/dL (0.55-1.3); GLUCOSE,RANDOM 85 mg/dL (74-106); SGOT/AST 19 U/L (15-37); SGPT/ALT 31 U/L (13-61); SODIUM 136 mmol/L (136-145); TOT PROT 7.6 g/dl (6.4-8.2)
[2018-08-05 07:07] VITALS: BMI 20.9
[2018-08-05] MEDS ORDERED: TAMSULOSIN HCL 0.4 MG CAP PO SCH (08:30)
[2018-08-05] MEDS ORDERED: ACETAMINOPHEN 325 MG TABLET (FP) PO PRN ×2 (09:08→09:33)
[2018-08-05] MEDS ORDERED: diazePAM ACUDIAL 5-7.5-10 MG 1 EACH KIT RC PRN (09:08)
[2018-08-05] MEDS ORDERED: BISACODYL 10 MG SUPP.RECT RC PRN (09:08)
[2018-08-05] MEDS ORDERED: ALBUTEROL SO4 2.5/IPRATROPIUM 0.5 INH SOL 3 ML VIAL.NEB. NEB PRN (09:08)
[2018-08-05] MEDS ORDERED: SCOPOLAMINE HYDROBROMIDE 1 PATCH PATCH.TD72 TD SCH (09:15)
--- NOTE | 2018-08-05 09:19 | HP ---
CHIEF COMPLAINT: G-tube failure PCP: [facility] HISTORY OF PRESENT ILLNESS: Pt is a 27 y/o M with numerous medical problems including dysphagia for which a G/J-tube was placed on 07/19. He was sent from [facility] because of tube malfunction. The tube was reportedly clogged and nicked. IR was made aware by ED. Pt is nonverbal at baseline. [employer] was present at bedside and stated adamantly that no other active issues were present. He stated that the tube leaks and sprays water out the side when flush is attempted. ER course was notable for: (1) vitals and labs unremarkable (2) (3) Recent Travel: none PAST MEDICAL HISTORY: profound MR (nonverbal), CP w/ spastic quadriparesis, severe developmental delay , intractable seizures, cortical blindness, asthma PAST SURGICAL HISTORY: G/J tube Social History: Smoking: no Alcohol: no Drugs: no Family History: Allergies Beef Containing Products Allergy (Unknown, Verified 07/12/18 08:20) erythromycin base Allergy (Verified 07/12/18 08:43) phenobarbital Allergy (Verified 07/12/18 08:19) venom-honey bee [bee venom (honey bee)] Allergy (Verified 07/12/18 08:19) HOME MEDICATIONS: Home Medications Medication Instructions Recorded Acetaminophen [Tylenol] 480 mg GT PRN PRN 01/19/15 levETIRAcetam [Keppra Oral 1,500 mg GT BID 01/19/15 Solution -] Aspirin [ASA -] 81 mg GT HS 03/17/18 Carbamazepine [Tegretol -] 280 mg GT BID 03/17/18 Cholecalciferol (Vitamin D3) 2,000 unit GT DAILY 03/17/18 [Vitamin D3] Omeprazole Magnesium [Prilosec] 20 mg GT DAILY 03/17/18 Tamsulosin HCl [Flomax -] 0.4 mg GT DAILY 03/17/18 cloNIDine HCL [Catapres -] 0.2 mg PO HS 03/17/18 clonazePAM [KlonoPIN -] 1 mg GT TID 03/17/18 Baclofen [Lioresal -] 10 mg PO DAILY@0600,1200 tablet 03/21/18 Baclofen [Lioresal -] 20 mg GT DAILY@1800,0000 tablet 03/21/18 Bisacodyl 10 mg RC PRN PRN 07/12/18 Budesonide [Pulmicort 0.5 mg 1 neb NEB BID 07/12/18 Nebulizer -] Cholecalciferol (Vitamin D3) 2,000 unit PO HS 07/12/18 [Vitamin D3] Diazepam [Diastat Acudial] 20 mg RC PRN PRN 07/12/18 Ipratropium/Albuterol Sulfate 3 ml IH QID PRN 07/12/18 [Iprat-Albut 0.5-3(2.5) mg/3 ml] Lactose-Reduced Food/Fiber [Jevity 948 ml GT BID 07/12/18 1.5 Hermes Liquid] Nystatin Ointment [Mycostatin 1 applic TP BID 07/12/18 Ointment -] Triamcinolone 0.1% Cream 1 applic TP BID 07/12/18 [Aristocort 0.1% Cream -] Albuterol 2.5/Ipratropium 0.5 1 amp NEB RQ4H amp 07/18/18 [Duoneb -] Cefuroxime Axetil Suspension 250 mg PO BID #100 ml 07/18/18 [Ceftin Oral Suspension -] Prednisone 10 mg PO DAILY #10 tablet 07/18/18 Scopolamine Hydrobromide 1 patch TD Q72H #10 patch.td72 07/18/18 [Transderm-Scop -] REVIEW OF SYSTEMS Unobtainable PHYSICAL EXAMINATION Vital Signs - 24 hr 08/05/18 03:32 Temperature 98.3 F Pulse Rate 97 H Respiratory 18 Rate Blood Pressure 114/56 L O2 Sat by Pulse 96 Oximetry (%) Gen: contracted, nonverbal, NAD HEENT: NCAT Cardio: rrr, normal s1s2, no mrg Pulm: cta b/l Abd: J/G tube in place, cdi Ext: wasting, contracted Laboratory Results - last 24 hr 08/05/18 08/05/18 08/05/18 05:20 05:20 05:20 WBC 6.4 RBC 4.66 Hgb 13.3 Hct 40.4 MCV 86.6 MCH 28.5 MCHC 33.0 RDW 14.8 Plt Count 291 D MPV 7.5 Absolute Neuts (auto) 3.7 Neutrophils % 57.0 D Lymphocytes % 34.3 D Monocytes % 7.0 D Eosinophils % 1.1 D Basophils % 0.6 D Nucleated RBC % 0 PT with INR 14.10 H INR 1.19 H Sodium 136 Potassium 4.0 Chloride 102 Carbon Dioxide 26 Anion Gap 8 BUN 5 L Creatinine 0.3 L Creat Clearance w eGFR > 60 Random Glucose 85 Calcium 8.5 Total Bilirubin 0.2 AST 19 ALT 31 Alkaline Phosphatase 120 H Total Protein 7.6 Albumin 3.3 L Blood Type Antibody Screen 08/05/18 05:20 WBC RBC Hgb Hct MCV MCH MCHC RDW Plt Count MPV Absolute Neuts (auto) Neutrophils % Lymphocytes % Monocytes % Eosinophils % Basophils % Nucleated RBC % PT with INR INR Sodium Potassium Chloride Carbon Dioxide Anion Gap BUN Creatinine Creat Clearance w eGFR Random Glucose Calcium Total Bilirubin AST ALT Alkaline Phosphatase Total Protein Albumin Blood Type A POSITIVE Antibody Screen Negative ASSESSMENT/PLAN: Pt is a 27 y/o M nonverbal sent from [facility] for adjustment/replacement of JG tube, which was placed by IR on 07/19. IR made aware by ED staff. Will follow up for recommendations and/or procedure by IR. Continue home meds for chronic medical problems. For G-tube meds, hold medication until G-tube is replaced. Visit type - Emergency Visit Emergency Visit: Yes ED Registration Date: 08/05/18 Care time: The patient presented to the Emergency Department on the above date and was hospitalized for further evaluation of their emergent condition. - New Patient This patient is new to me today: Yes Date on this admission: 08/05/18 - Critical Care Critical Care patient: No
[2018-08-05] MEDS ORDERED: LORazepam 2 MG/ML SDV VIAL IVPUSH PRN (09:31)
[2018-08-05] MEDS ORDERED: BUDESONIDE 0.5 MG/2 ML INH SUSP VIAL NEB SCH (09:45)
[2018-08-05] MEDS ORDERED: levETIRAcetam 500 MG/5 ML ORAL SOLUTION (UNIT-DOSE CUPS) GT SCH (10:00)
[2018-08-05] MEDS ORDERED: NYSTATIN 100000 UNIT/GM TOPICAL OINTMENT 15 GM TUBE TP SCH (10:00)
[2018-08-05] MEDS ORDERED: carBAMazepine 200 MG/10 ML UNIT-DOSE CUP GT SCH (10:00)
[2018-08-05] MEDS ORDERED: predniSONE 10 MG TABLET (UD) PO SCH (10:00)
[2018-08-05] MEDS ORDERED: CEFUROXIME AXETIL 250 MG/5 ML BOTTLE GT SCH (10:00)
[2018-08-05] MEDS ORDERED: TRIAMCINOLONE ACET 0.1% CREAM 15 GM TUBE TP SCH (10:00)
[2018-08-05] MEDS ORDERED: RANITIDINE HCL 150 MG/10 ML UNIT-DOSE GT SCH (10:00)
[2018-08-05] MEDS ORDERED: CHOLECALCIFEROL (VITAMIN D3) 1,000 UNIT TABLET (FP) GT SCH (10:00)
--- NOTE | 2018-08-05 11:59 | DS ---
Physical Exam: SUBJECTIVE: Patient seen and examined at bedside. Nonverbal OBJECTIVE: Vital Signs Period Temp Pulse Resp BP Sys/Don Pulse Ox Last 24 Hr 98.3 F-100 F 97-98 18-18 114-116/56-84 96-99 PHYSICAL EXAM Gen: contracted, nonverbal, NAD HEENT: NCAT Cardio: rrr, normal s1s2, no mrg Pulm: cta b/l Abd: J/G tube in place, cdi Ext: wasting, contracted LABS Laboratory Results - last 24 hr 08/05/18 08/05/18 08/05/18 05:20 05:20 05:20 WBC 6.4 RBC 4.66 Hgb 13.3 Hct 40.4 MCV 86.6 MCH 28.5 MCHC 33.0 RDW 14.8 Plt Count 291 D MPV 7.5 Absolute Neuts (auto) 3.7 Neutrophils % 57.0 D Lymphocytes % 34.3 D Monocytes % 7.0 D Eosinophils % 1.1 D Basophils % 0.6 D Nucleated RBC % 0 PT with INR 14.10 H INR 1.19 H Sodium 136 Potassium 4.0 Chloride 102 Carbon Dioxide 26 Anion Gap 8 BUN 5 L Creatinine 0.3 L Creat Clearance w eGFR > 60 Random Glucose 85 Calcium 8.5 Total Bilirubin 0.2 AST 19 ALT 31 Alkaline Phosphatase 120 H Total Protein 7.6 Albumin 3.3 L Blood Type Antibody Screen 08/05/18 05:20 WBC RBC Hgb Hct MCV MCH MCHC RDW Plt Count MPV Absolute Neuts (auto) Neutrophils % Lymphocytes % Monocytes % Eosinophils % Basophils % Nucleated RBC % PT with INR INR Sodium Potassium Chloride Carbon Dioxide Anion Gap BUN Creatinine Creat Clearance w eGFR Random Glucose Calcium Total Bilirubin AST ALT Alkaline Phosphatase Total Protein Albumin Blood Type A POSITIVE Antibody Screen Negative HOSPITAL COURSE: Date of Admission:08/05/18 Date of Discharge: 08/05/18 Pt is a 27 y/o M with multiple medical problems sent from [facility] for a malfunctioning G/J tube. The tube was replaced by IR. Pt is stable for transfer back to [place]. Minutes to complete discharge: 35 Discharge Summary Reason For Visit: GASTROSTOMY TUBE DYSFUNCTION,CEREBRAL PALSY Current Active Problems Gastrostomy tube dysfunction (Acute) Condition: Stable - Instructions Diet, Activity, Other Instructions: This patient was in the hospital because of a dysfunctional gastric tube. The tube will need proper care and maintenance to ensure it continues functioning appropriately. Special care should be taken with any sharp implement near the tube. Please make sure to flush the tube regularly, especially after feeding. Disposition: HOME - Home Medications Comprehensive Discharge Medication List: Ambulatory Orders Acetaminophen [Tylenol] 480 mg GT PRN PRN 01/19/15 levETIRAcetam [Keppra Oral Solution -] 1,500 mg GT BID 01/19/15 Aspirin [ASA -] 81 mg GT HS 03/17/18 Carbamazepine [Tegretol -] 280 mg GT BID 03/17/18 Cholecalciferol (Vitamin D3) [Vitamin D3] 2,000 unit GT DAILY 03/17/18 Omeprazole Magnesium [Prilosec] 20 mg GT DAILY 03/17/18 Tamsulosin HCl [Flomax -] 0.4 mg GT DAILY 03/17/18 cloNIDine HCL [Catapres -] 0.2 mg PO HS 03/17/18 clonazePAM [KlonoPIN -] 1 mg GT TID 03/17/18 Baclofen [Lioresal -] 10 mg PO DAILY@0600,1200 tablet 03/21/18 Baclofen [Lioresal -] 20 mg GT DAILY@1800,0000 tablet 03/21/18 Bisacodyl 10 mg RC PRN PRN 07/12/18 Budesonide [Pulmicort 0.5 mg Nebulizer -] 1 neb NEB BID 07/12/18 Cholecalciferol (Vitamin D3) [Vitamin D3] 2,000 unit PO HS 07/12/18 Diazepam [Diastat Acudial] 20 mg RC PRN PRN 07/12/18 Ipratropium/Albuterol Sulfate [Iprat-Albut 0.5-3(2.5) mg/3 ml] 3 ml IH QID PRN 07/12/18 Lactose-Reduced Food/Fiber [Jevity 1.5 Hermes Liquid] 948 ml GT BID 07/12/18 Nystatin Ointment [Mycostatin Ointment -] 1 applic TP BID 07/12/18 Triamcinolone 0.1% Cream [Aristocort 0.1% Cream -] 1 applic TP BID 07/12/18 Albuterol 2.5/Ipratropium 0.5 [Duoneb -] 1 amp NEB RQ4H amp 07/18/18 Cefuroxime Axetil Suspension [Ceftin Suspension -] 250 mg PO BID #100 ml Prednisone 10 mg PO DAILY #10 tablet 07/18/18 Scopolamine Hydrobromide [Transderm-Scop -] 1 patch TD Q72H #10 patch.td72 07/18 This patient is new to me today: Yes Date on this admission: 08/08/18 Emergency Visit: Yes ED Registration Date: 08/05/18 Care time: The patient presented to the Emergency Department on the above date and was hospitalized for further evaluation of their emergent condition. Critical Care patient: No - Discharge Referral Referred to [facility] No
[2018-08-05] MEDS ORDERED: ALBUTEROL SO4 2.5/IPRATROPIUM 0.5 INH SOL 3 ML VIAL.NEB. NEB SCH (12:00)
--- NOTE | 2018-08-05 13:33 | PN ---
Teaching Attending Note Name of Resident: Kalyan Ferrari ATTENDING PHYSICIAN STATEMENT I saw and evaluated the patient. I reviewed the resident's note and discussed the case with the resident. I agree with the resident's findings and plan as documented. SUBJECTIVE: Patient is a 27yo male from [facility], presented for G-tube replacement to ED. OBJECTIVE: Vital Signs Temperature 98.2 F 08/05/18 14:21 Pulse Rate 98 08/05/18 14:21 Respiratory Rate 20 08/05/18 14:21 Blood Pressure 145/85 08/05/18 14:21 O2 Sat by Pulse Oximetry (%) 98 08/05/18 14:21 Initial Vital Signs Temp Pulse Resp BP Pulse Ox 98.3 F 97 H 18 114/56 L 96 08/05/18 03:32 08/05/18 03:32 08/05/18 03:32 08/05/18 03:32 08/05/18 03:32 Gen: contracted, nonverbal, NAD HEENT: NCAT Cardio:mild tachycardia, RR, S1S2 positive, no murmur Pulm: CTA bl Abd: G-tube is placed, soft, NT, Ext: pulses are positive, wasted, contracted Neuro: non verbal CBCD WBC 6.4 K/mm3 (4.0-10.0) 08/05/18 05:20 RBC 4.66 M/mm3 (4.00-5.60) 08/05/18 05:20 Hgb 13.3 GM/dL (11.7-16.9) 08/05/18 05:20 Hct 40.4 % (35.4-49) 08/05/18 05:20 MCV 86.6 fl (80-96) 08/05/18 05:20 MCHC 33.0 g/dl (32.0-35.9) 08/05/18 05:20 RDW 14.8 % (11.9-15.9) 08/05/18 05:20 Plt Count 291 K/MM3 (134-434) D 08/05/18 05:20 MPV 7.5 fl (7.5-11.1) 08/05/18 05:20 CMP Sodium 136 mmol/L (136-145) 08/05/18 05:20 Potassium 4.0 mmol/L (3.5-5.1) 08/05/18 05:20 Chloride 102 mmol/L (98-107) 08/05/18 05:20 Carbon Dioxide 26 mmol/L (21-32) 08/05/18 05:20 Anion Gap 8 MMOL/L (8-16) 08/05/18 05:20 BUN 5 mg/dL (7-18) L 08/05/18 05:20 Creatinine 0.3 mg/dL (0.55-1.3) L 08/05/18 05:20 Creat Clearance w eGFR > 60 (>60) 08/05/18 05:20 Random Glucose 85 mg/dL (74-106) 08/05/18 05:20 Calcium 8.5 mg/dL (8.5-10.1) 08/05/18 05:20 Total Bilirubin 0.2 mg/dL (0.2-1) 08/05/18 05:20 AST 19 U/L (15-37) 08/05/18 05:20 ALT 31 U/L (13-61) 08/05/18 05:20 Alkaline Phosphatase 120 U/L (45-117) H 08/05/18 05:20 Total Protein 7.6 g/dl (6.4-8.2) 08/05/18 05:20 Albumin 3.3 g/dl (3.4-5.0) L 08/05/18 05:20 Current Medications Generic Name Dose Route Start Last Admin Trade Name Freq PRN Reason Stop Dose Admin Acetaminophen 325 mg 08/05/18 09:33 Tylenol - PO Q6H PRN FEVER Albuterol/Ipratropium 1 amp 08/05/18 12:00 Duoneb - NEB RQ4H ALEKSANDR Bisacodyl 10 mg 08/05/18 09:08 Dulcolax Suppository - RC PRN PRN CONSTIPATION Budesonide 1 amp 08/05/18 09:45 Pulmicort 0.5 Mg Nebulizer - NEB RBID ALEKSANDR Carbamazepine 280 mg 08/05/18 10:00 Tegretol Oral Suspension - GT BID [facility] Cefuroxime Axetil 250 mg 08/05/18 10:00 Ceftin Oral Suspension - GT BID [facility] Cholecalciferol 2,000 unit 08/05/18 10:00 Vitamin D3 - GT DAILY ALEKSANDR Cholecalciferol 2,000 unit 08/05/18 22:00 Vitamin D3 - PO HS [facility] Clonazepam 1 mg 08/05/18 14:00 Klonopin - GT TID ALEKSANDR Clonidine 0.2 mg 08/05/18 22:00 Catapres - PO HS ALEKSANDR Levetiracetam 1,500 mg 08/05/18 10:00 Keppra Oral Solution - GT BID ALEKSANDR Lorazepam 2 mg 08/05/18 09:31 Ativan Injection - IVPUSH Q6H PRN AGITATION Nystatin 1 applic 08/05/18 10:00 Mycostatin Ointment - TP BID ALEKSANDR Prednisone 10 mg 08/05/18 10:00 Deltasone - PO DAILY ALEKSANDR Ranitidine HCl 150 mg 08/05/18 10:00 Zantac Oral Solution - GT BID [facility] Scopolamine HBr 1 patch 08/05/18 09:15 Transderm-Scop - TD Q72H ALEKSANDR Triamcinolone Acetonide 1 applic 08/05/18 10:00 Aristocort 0.1% Cream - TP BID [facility] Home Medications Medication Instructions Recorded Acetaminophen [Tylenol] 480 mg GT PRN PRN 01/19/15 levETIRAcetam [Keppra Oral 1,500 mg GT BID 01/19/15 Solution -] Aspirin [ASA -] 81 mg GT HS 03/17/18 Carbamazepine [Tegretol -] 280 mg GT BID 03/17/18 Cholecalciferol (Vitamin D3) 2,000 unit GT DAILY 03/17/18 [Vitamin D3] Omeprazole Magnesium [Prilosec] 20 mg GT DAILY 03/17/18 Tamsulosin HCl [Flomax -] 0.4 mg GT DAILY 03/17/18 cloNIDine HCL [Catapres -] 0.2 mg PO HS 03/17/18 clonazePAM [KlonoPIN -] 1 mg GT TID 03/17/18 Baclofen [Lioresal -] 10 mg PO DAILY@0600,1200 tablet 03/21/18 Baclofen [Lioresal -] 20 mg GT DAILY@1800,0000 tablet 03/21/18 Bisacodyl 10 mg RC PRN PRN 07/12/18 Budesonide [Pulmicort 0.5 mg 1 neb NEB BID 07/12/18 Nebulizer -] Cholecalciferol (Vitamin D3) 2,000 unit PO HS 07/12/18 [Vitamin D3] Diazepam [Diastat Acudial] 20 mg RC PRN PRN 07/12/18 Ipratropium/Albuterol Sulfate 3 ml IH QID PRN 07/12/18 [Iprat-Albut 0.5-3(2.5) mg/3 ml] Lactose-Reduced Food/Fiber [Jevity 948 ml GT BID 07/12/18 1.5 Hermes Liquid] Nystatin Ointment [Mycostatin 1 applic TP BID 07/12/18 Ointment -] Triamcinolone 0.1% Cream 1 applic TP BID 07/12/18 [Aristocort 0.1% Cream -] Albuterol 2.5/Ipratropium 0.5 1 amp NEB RQ4H amp 07/18/18 [Duoneb -] Cefuroxime Axetil Suspension 250 mg PO BID #100 ml 07/18/18 [Ceftin Suspension -] Prednisone 10 mg PO DAILY #10 tablet 07/18/18 Scopolamine Hydrobromide 1 patch TD Q72H #10 patch.td72 07/18/18 [Transderm-Scop -] ASSESSMENT AND PLAN: Patient is a 27 yo male ,nonverbal sent from [facility] for adjustment/ replacement of J-G tube, which was placed by IR on 07/19. # G-tube replacement by IR. patient is returning back to [facility] home. G- tube can be used and flush the tube post feed and avoid sharp instruments Continue home meds for chronic medical problems. Patient can be discharged back to [facility]. discussed with the field nurse case manager.
[2018-08-05] MEDS ORDERED: clonazePAM 2 MG TABLET GT SCH (14:00)
[2018-08-05 17:40] VITALS: BP 123/78; PULSE 104; TEMP 99.1
[2018-08-05] MEDS ORDERED: cloNIDine HCL 0.1 MG TABLET PO SCH (22:00)
[2018-08-05] MEDS ORDERED: CHOLECALCIFEROL (VITAMIN D3) 1,000 UNIT TABLET (FP) PO SCH (22:00)
== END 2018-08-05 17:00 | disposition home or self-care (01) ==
LOC: JER 01:27 → JERBED 04:10
PROVIDERS: ADMIT Internal Medicine; ATTEND Internal Medicine
PROC: 0D20XUZ Change Feeding Device in Upper Intestinal Tract, External Approach (ICD-10-PCS; principal; 2018-08-05)
DX: K94.23 Gastrostomy malfunction (principal); G80.0 Spastic quadriplegic cerebral palsy; F73 Profound intellectual disabilities; R62.50 Unspecified lack of expected normal physiological development in childhood; G40.909 Epilepsy, unspecified, not intractable, without status epilepticus; H47.619 Cortical blindness, unspecified side of brain; J45.909 Unspecified asthma, uncomplicated
CPT/HCPCS: 36415; 49440; 71045-TC-FY; 76000-TC-FY; 80053; 85025; 85610; 86850; 86900; 86901; 99281-25; C1769; C1887; G0378

== ENCOUNTER 2018-08-11 07:23 | Observation (INO) | payer OTHER ==
[2018-08-11 07:52] VITALS: BMI 18.8
--- NOTE | 2018-08-11 08:15 | PDOC ---
Attending Attestation - HPI HPI: 08/11/18 11:03 Patient is a 27 year old male with a significant past medical history of MR, spastic quadriparesis, cerebral palsy, intractable seizures, cortical blindness , who presents to the ED with complaints of obstructed GJ tube. As per staff, patient had tube placed on 07/18/2018, and had a replacement placed on 2017. Denies chest pain, sob. Denies nausea, vomiting. Denies fevers, chills. Denies diarrhea, constipation. Denies dysuria, hematuria. Denies trauma to affected area. Denies contact with sick individuals, out of state travelling. Denies any other symptoms. Allergies: Beef Containing Products, erythromycin base, phenobarbital, venom- honey bee Social history: No smoking. No alcohol. No illicit drugs. Surgical history: G/J tube. PMD: Dr. Saleem <Jeffery Alvarenga - Last Filed: 08/11/18 11:03> - Resident Resident Name: Landon Velasquez - ED Attending Attestation I have performed the following: I have examined & evaluated the patient, The case was reviewed & discussed with the resident, I agree w/resident's findings & plan, Exceptions are as noted - Physicial Exam PE: GENERAL: Awake, alert, and fully oriented, in no acute distress HEAD: +Microcephaly. EYES: PERRLA, EOMI, sclera anicteric, conjunctiva clear ENT: Auricles normal inspection, hearing grossly normal, nares patent, oropharynx clear without exudates. Moist mucosa NECK: Normal ROM, supple, no lymphadenopathy, JVD, or masses LUNGS: Breath sounds equal, clear to auscultation bilaterally. No wheezes, and no crackles HEART: Regular rate and rhythm, normal S1 and S2, no murmurs, rubs or gallops ABDOMEN: Soft, nontender, normoactive bowel sounds. No guarding, no rebound. No masses. +JG tube in place, J-tube not flushing. EXTREMITIES: Normal range of motion, no edema. No clubbing or cyanosis. No cords, erythema, or tenderness NEUROLOGICAL: Limited by severe MR. Intermittent myoclonus in the limbs. Moving all extremities. SKIN: Warm, Dry, normal turgor, no rashes or lesions noted. - Medical Decision Making Pt with malfunctioning JG tube. Attempted to flush with go nicholas and with creon, both did not help. Will contact IR for replacement. <Rosemarie Jett - Last Filed: 08/11/18 14:42>
--- NOTE | 2018-08-11 08:28 | PDOC ---
History of Present Illness - General Chief Complaint: Pain, Acute Stated Complaint: CLOGGED GT TUBE Time Seen by Provider: 08/11/18 07:40 History Source: Patient, Group Home Records, Other ([place] nurse aid) Exam Limitations: No Limitations - History of Present Illness Initial Comments: 08/11/18 08:25 27 yo male pmh profound MR, spastic quadraparesis, cerebral palsy, intractable seizures, cortical blindness and multiple recent issues with GJ tube presents from [place] with a clogged GJ tube. Pt had tube placed on 07/18/2018 by IR with re-placement 08/05/2018. No recent changes or signs of distress as per [facility] Nurse Aid who is present Past History - Past Medical History Allergies/Adverse Reactions: Allergies Allergy/AdvReac Type Severity Reaction Status Date / Time Beef Containing Products Allergy Unknown Verified 08/11/18 13:21 erythromycin base Allergy Verified 08/11/18 13:21 phenobarbital Allergy Verified 08/11/18 13:21 venom-honey bee Allergy Verified 08/11/18 13:21 [bee venom (honey bee)] Home Medications: Ambulatory Orders levETIRAcetam [Keppra Oral Solution -] 1,500 mg GT BID 01/19/15 Aspirin [ASA -] 81 mg GT HS 03/17/18 Carbamazepine [Tegretol -] 280 mg GT BID 03/17/18 Cholecalciferol (Vitamin D3) [Vitamin D3] 2,000 unit GT DAILY 03/17/18 Omeprazole Magnesium [Prilosec] 20 mg GT DAILY 03/17/18 Tamsulosin HCl [Flomax -] 0.4 mg GT DAILY 03/17/18 cloNIDine HCL [Catapres -] 0.2 mg PO HS 03/17/18 clonazePAM [KlonoPIN -] 1 mg GT TID 03/17/18 Baclofen [Lioresal -] 10 mg PO DAILY@0600,1200 tablet 03/21/18 Baclofen [Lioresal -] 20 mg GT DAILY@1800,0000 tablet 03/21/18 Budesonide [Pulmicort 0.5 mg Nebulizer -] 1 neb NEB BID 07/12/18 Diazepam [Diastat Acudial] 20 mg RC PRN PRN 07/12/18 Ipratropium/Albuterol Sulfate [Iprat-Albut 0.5-3(2.5) mg/3 ml] 3 ml IH QID PRN 07/12/18 Nystatin Ointment [Mycostatin Ointment -] 1 applic TP BID 07/12/18 Triamcinolone 0.1% Cream [Aristocort 0.1% Cream -] 1 applic TP BID 07/12/18 Albuterol 2.5/Ipratropium 0.5 [Duoneb -] 1 amp NEB RQ4H amp 07/18/18 Scopolamine Hydrobromide [Transderm-Scop -] 1 patch TD Q72H #10 patch.td72 07/18 Lactose-Reduced Food/Fiber [Jevity 1.5 Hermes Liquid] 100 ml GT DAILY 08/11/18 Mupirocin Ointment [Bactroban] 1 applic TP TID 08/11/18 Asthma: Yes COPD: Yes (asthma, aspiration pnuemonia and respiratory distress) Dementia: Yes (mental retardation) GI Disorders: Yes (dysphagia, s/p peg insertion) Psychiatric Problems: (hyponatremia (due to meds)) Seizures: Yes - Surgical History Orthopedic Surgery: (Left Hip Osteotomy) - Immunization History Immunization Up to Date: Yes - Suicide/Smoking/Psychosocial Hx Smoking History: Never smoked Have you smoked in the past 12 months: No Number of Cigarettes Smoked Daily: 0 Cigars Per Day: 0 Hx Alcohol Use: No Drug/Substance Use Hx: No Substance Use Type: None Hx Substance Use Treatment: No Review of Systems - Review of Systems Able to Perform ROS?: No (MR and CP) *Physical Exam - Vital Signs Last Vital Signs Temp Pulse Resp BP Pulse Ox 97.8 F 57 L 16 134/96 99 08/11/18 07:36 08/11/18 07:36 08/11/18 07:36 08/11/18 07:36 08/11/18 07:36 - Physical Exam General Appearance: Yes: Nourished, Appropriately Dressed. No: Apparent Distress (at baseline) Respiratory/Chest: positive: Lungs Clear, Normal Breath Sounds Cardiovascular: positive: Regular Rhythm, Regular Rate. negative: Edema Vascular Pulses: Dorsalis-Pedis (R): 3+, Doralis-Pedis (L): 3+ Gastrointestinal/Abdominal: positive: Normal Bowel Sounds, Flat, Soft, Other ( gastric tube patent but Jejunal tube not with both water and go nicholas). negative: Distended Extremity: positive: Normal Capillary Refill Integumentary: positive: Normal Color, Dry, Warm Moderate Sedation - Procedure Monitoring Vital Signs: Procedure Monitoring Vital Signs Temperature 97.8 F 08/11/18 07:36 Pulse Rate 57 L 08/11/18 07:36 Respiratory Rate 16 08/11/18 07:36 Blood Pressure 134/96 08/11/18 07:36 O2 Sat by Pulse Oximetry (%) 99 08/11/18 07:36 Medical Decision Making - Medical Decision Making 08/11/18 08:42 27 yo male with MR and CP with GJ tube presents with clogged J tube portion. Vitals WNL G tube flushes easily with water. J tube portion does not flush with either water or go nicholas *DC/Admit/Observation/Transfer Diagnosis at time of Disposition: Encounter for gastrojejunal (GJ) tube placement - Discharge Dispostion Condition at time of disposition: Stable Decision to Admit order: Yes - Referrals - Patient Instructions - Post Discharge Activity
[2018-08-11] MEDS ORDERED: LIPASE/PROTEASE/AMYLASE 6,000 UNIT CAPSULE PO SCH ×3 (12:00)
[2018-08-11] MEDS ORDERED: LIPASE/PROTEASE/AMYLASE 36,000 UNIT CAPSULE PO SCH (12:00)
[2018-08-11] MEDS: LIPASE/PROTEASE/AMYLASE 6,000 UNIT CAPSULE PO SCH ×3 (12:58→23:00)
--- NOTE | 2018-08-11 16:42 | HP ---
CHIEF COMPLAINT: clogged G/J tube PCP: Dr. Mayorga HISTORY OF PRESENT ILLNESS: Pt was sent from [facility] because of clogged G/J tube. Pt was recently here for the same issue and had the tube changed by IR. Gastric portion of the tube found to be patent by ED team. J-tube port was clogged. ED team attempted to flush the tube and attempted pancreatic enzymes, which were unfortunately unsuccessful. Aide from [place] denies pt having fever, cough, rapid breathing. Will call Dr. Mayorga ([phone])in the morning to discuss options. Pt's father ([phone]) ER course was notable for: (1) pancreatic enzymes to open GJ tube (2) (3) Recent Travel: no PAST MEDICAL HISTORY: profound MR, spastic quadraparesis, cerebral palsy, intractable seizures, cortical blindness and multiple recent issues with GJ tube PAST SURGICAL HISTORY: G tube placed in 2004 Social History: Smoking: no Alcohol: no Drugs: no Family History: no Allergies Beef Containing Products Allergy (Unknown, Verified 08/11/18 13:21) erythromycin base Allergy (Verified 08/11/18 13:21) phenobarbital Allergy (Verified 08/11/18 13:21) venom-honey bee [bee venom (honey bee)] Allergy (Verified 08/11/18 13:21) HOME MEDICATIONS: Home Medications Medication Instructions Recorded levETIRAcetam [Keppra Oral 1,500 mg GT BID 01/19/15 Solution -] Aspirin [ASA -] 81 mg GT HS 03/17/18 Carbamazepine [Tegretol -] 280 mg GT BID 03/17/18 Cholecalciferol (Vitamin D3) 2,000 unit GT DAILY 03/17/18 [Vitamin D3] Omeprazole Magnesium [Prilosec] 20 mg GT DAILY 03/17/18 Tamsulosin HCl [Flomax -] 0.4 mg GT DAILY 03/17/18 cloNIDine HCL [Catapres -] 0.2 mg PO HS 03/17/18 clonazePAM [KlonoPIN -] 1 mg GT TID 03/17/18 Baclofen [Lioresal -] 10 mg PO DAILY@0600,1200 tablet 03/21/18 Baclofen [Lioresal -] 20 mg GT DAILY@1800,0000 tablet 03/21/18 Budesonide [Pulmicort 0.5 mg 1 neb NEB BID 07/12/18 Nebulizer -] Diazepam [Diastat Acudial] 20 mg RC PRN PRN 07/12/18 Ipratropium/Albuterol Sulfate 3 ml IH QID PRN 07/12/18 [Iprat-Albut 0.5-3(2.5) mg/3 ml] Nystatin Ointment [Mycostatin 1 applic TP BID 07/12/18 Ointment -] Triamcinolone 0.1% Cream 1 applic TP BID 07/12/18 [Aristocort 0.1% Cream -] Albuterol 2.5/Ipratropium 0.5 1 amp NEB RQ4H amp 07/18/18 [Duoneb -] Scopolamine Hydrobromide 1 patch TD Q72H #10 patch.td72 07/18/18 [Transderm-Scop -] Lactose-Reduced Food/Fiber [Jevity 100 ml GT DAILY 08/11/18 1.5 Hermes Liquid] Mupirocin Ointment [Bactroban] 1 applic TP TID 08/11/18 REVIEW OF SYSTEMS Unable to assess PHYSICAL EXAMINATION Vital Signs - 24 hr 08/11/18 08/11/18 07:36 08:00 Temperature 97.8 F Pulse Rate 57 L Respiratory 16 Rate Blood Pressure 134/96 O2 Sat by Pulse 99 99 Oximetry (%) Gen: nonverbal, NAD HEENT: tracks intermittently with eyes, moist membranes Neck: supple, no bruits Cardio: rrr, no mrg Pulm: cta b/l Abd: soft, nondistended. Tube in place, cdi extremities: nonedematous, contracted ASSESSMENT/PLAN: Pt is a 27 y/o M with profound MR, spastic quadraparesis, cerebral palsy, intractable seizures, cortical blindness and multiple recent issues with GJ tube who presents to the hospital with malfunctioning GJ tube. Will consult surgery for potential procedure in am. C/w home medsvia g-tube. Hold feeds for now. G-tube is evidently patent. Consider resuming once tube is replaced. Visit type - Emergency Visit Emergency Visit: Yes ED Registration Date: 08/11/18 Care time: The patient presented to the Emergency Department on the above date and was hospitalized for further evaluation of their emergent condition. - New Patient This patient is new to me today: Yes Date on this admission: 08/11/18 - Critical Care Critical Care patient: No
--- NOTE | 2018-08-11 16:44 | HP ---
CHIEF COMPLAINT: clogged J tube PCP: Dr. Mayorga HISTORY OF PRESENT ILLNESS: Patient is a 27 y/o male with a history of MR, spastic quadriparesis, cerebral palsy, intractable seizures, and cortical blindness who presents for clogged J tube. Aid is present at bedside and reports she does not know the story. Patient is non verbal. From ED sign out patient was sent in from [place] this am for clogged tube. Patient has a similar episode of clogged tube on 08/05, tube was successfully changed. G tube still functioning. ER course was notable for: (1) (2) (3) Recent Travel: no PAST MEDICAL HISTORY: MR, spastic quadriparesis, cerebral palsy, intractable seizures, and cortical blindness PAST SURGICAL HISTORY: GTube placement 2004 Social History: Smoking: no Alcohol: no Drugs: no Family History: Allergies Beef Containing Products Allergy (Unknown, Verified 08/11/18 13:21) erythromycin base Allergy (Verified 08/11/18 13:21) phenobarbital Allergy (Verified 08/11/18 13:21) venom-honey bee [bee venom (honey bee)] Allergy (Verified 08/11/18 13:21) HOME MEDICATIONS: Home Medications Medication Instructions Recorded levETIRAcetam [Keppra Oral 1,500 mg GT BID 01/19/15 Solution -] Aspirin [ASA -] 81 mg GT HS 03/17/18 Carbamazepine [Tegretol -] 280 mg GT BID 03/17/18 Cholecalciferol (Vitamin D3) 2,000 unit GT DAILY 03/17/18 [Vitamin D3] Omeprazole Magnesium [Prilosec] 20 mg GT DAILY 03/17/18 Tamsulosin HCl [Flomax -] 0.4 mg GT DAILY 03/17/18 cloNIDine HCL [Catapres -] 0.2 mg PO HS 03/17/18 clonazePAM [KlonoPIN -] 1 mg GT TID 03/17/18 Baclofen [Lioresal -] 10 mg PO DAILY@0600,1200 tablet 03/21/18 Baclofen [Lioresal -] 20 mg GT DAILY@1800,0000 tablet 03/21/18 Budesonide [Pulmicort 0.5 mg 1 neb NEB BID 07/12/18 Nebulizer -] Diazepam [Diastat Acudial] 20 mg RC PRN PRN 07/12/18 Ipratropium/Albuterol Sulfate 3 ml IH QID PRN 07/12/18 [Iprat-Albut 0.5-3(2.5) mg/3 ml] Nystatin Ointment [Mycostatin 1 applic TP BID 07/12/18 Ointment -] Triamcinolone 0.1% Cream 1 applic TP BID 07/12/18 [Aristocort 0.1% Cream -] Albuterol 2.5/Ipratropium 0.5 1 amp NEB RQ4H amp 07/18/18 [Duoneb -] Scopolamine Hydrobromide 1 patch TD Q72H #10 patch.td72 07/18/18 [Transderm-Scop -] Lactose-Reduced Food/Fiber [Jevity 100 ml GT DAILY 08/11/18 1.5 Hermes Liquid] Mupirocin Ointment [Bactroban] 1 applic TP TID 08/11/18 REVIEW OF SYSTEMS not able to answer PHYSICAL EXAMINATION Vital Signs - 24 hr 08/11/18 08/11/18 07:36 08:00 Temperature 97.8 F Pulse Rate 57 L Respiratory 16 Rate Blood Pressure 134/96 O2 Sat by Pulse 99 99 Oximetry (%) GENERAL: Awake, contracted, nonverbal HEAD: Normal with no signs of trauma. EYES: Pupils equal, round and reactive to light, extraocular movements intact, EARS, NOSE, THROAT: Ears normal, nares patent, oropharynx clear without exudates. Moist mucous membranes. LUNGS: Breath sounds equal, clear to auscultation bilaterally. No wheezes, and no crackles. No accessory muscle use. HEART: Regular rate and rhythm, normal S1 and S2 without murmur, rub or gallop. ABDOMEN: no erythema around G tube sight, no skin breakdown LOWER EXTREMITIES: 2+ pulses, warm, well-perfused. No calf tenderness. No peripheral edema. SKIN: no evidence of skin breakdown, no sacral or heel ulcer ASSESSMENT/PLAN: Patient is a 27 y/o male with a history of MR, spastic quadriparesis, cerebral palsy, intractable seizures, and cortical blindness who presents for clogged J tube. #clogged J tube - IR requested surgery to evaluate patient for treatment of clogged J tube. - ED spoke with Aleksey who reports, he will evaluate patient in the morning - continue medications through G tube - NPO for now #hx seizures - continue home medication through working G tube - continue home medications as prescribed from [facility] #DVT ppx - heparin TID Dispo: f/u with Dr. Mayorga in [facility] for code status, who makes decisions for patient and if patient has been fed through G tube before Visit type - Emergency Visit Emergency Visit: No - New Patient This patient is new to me today: No - Critical Care Critical Care patient: No
--- NOTE | 2018-08-11 16:45 | CONSULT ---
Consult Consult Specialty:: General Surgery Reason for Consultation:: clogged Jejunostomy port - History of Present Illness Chief Complaint: clogged GJ History of Present Illness: 27 yo male PMH severe MR, spastic quadriparesis, cerebral palsy, intractable seizures, and cortical blindness who presents for clogged J tube. Aid is present at bedside and reports she does not know the story. Patient is non verbal. From ED sign out patient was sent in from [facility] this am for clogged tube. Patient has a similar episode of clogged tube on 08/05, tube was successfully changed. G tube still functioning. we were called to assess and assist. Attemped bedside unclogging. Not successful. - History Source History Provided By: Patient, Medical Record Limitations to Obtaining History: No Limitations - Past Medical History COMMODITY LEAD: Yes: Seizure, Other (CP?MR) Pulmonary: Yes: Asthma Musculoskeletal: Yes: Other (scoliosis) - Alcohol/Substance Use Hx Alcohol Use: No History of Substance Use: reports: None - Smoking History Smoking history: Never smoked Have you smoked in the past 12 months: No Aproximately how many cigarettes per day: 0 - Social History Usual Living Arrangement: Long Term ADL: Support Services History of Recent Travel: No Home Medications - Allergies Allergies/Adverse Reactions: Allergies Allergy/AdvReac Type Severity Reaction Status Date / Time Beef Containing Products Allergy Unknown Verified 08/11/18 13:21 erythromycin base Allergy Verified 08/11/18 13:21 phenobarbital Allergy Verified 08/11/18 13:21 venom-honey bee Allergy Verified 08/11/18 13:21 [bee venom (honey bee)] - Home Medications Home Medications: Ambulatory Orders levETIRAcetam [Keppra Oral Solution -] 1,500 mg GT BID 01/19/15 Aspirin [ASA -] 81 mg GT HS 03/17/18 Carbamazepine [Tegretol -] 280 mg GT BID 03/17/18 Cholecalciferol (Vitamin D3) [Vitamin D3] 2,000 unit GT DAILY 03/17/18 Omeprazole Magnesium [Prilosec] 20 mg GT DAILY 03/17/18 Tamsulosin HCl [Flomax -] 0.4 mg GT DAILY 03/17/18 cloNIDine HCL [Catapres -] 0.2 mg PO HS 03/17/18 clonazePAM [KlonoPIN -] 1 mg GT TID 03/17/18 Baclofen [Lioresal -] 10 mg PO DAILY@0600,1200 tablet 03/21/18 Baclofen [Lioresal -] 20 mg GT DAILY@1800,0000 tablet 03/21/18 Budesonide [Pulmicort 0.5 mg Nebulizer -] 1 neb NEB BID 07/12/18 Diazepam [Diastat Acudial] 20 mg RC PRN PRN 07/12/18 Ipratropium/Albuterol Sulfate [Iprat-Albut 0.5-3(2.5) mg/3 ml] 3 ml IH QID PRN 07/12/18 Nystatin Ointment [Mycostatin Ointment -] 1 applic TP BID 07/12/18 Triamcinolone 0.1% Cream [Aristocort 0.1% Cream -] 1 applic TP BID 07/12/18 Albuterol 2.5/Ipratropium 0.5 [Duoneb -] 1 amp NEB RQ4H amp 07/18/18 Scopolamine Hydrobromide [Transderm-Scop -] 1 patch TD Q72H #10 patch.td72 07/18 Lactose-Reduced Food/Fiber [Jevity 1.5 Hermes Liquid] 100 ml GT DAILY 08/11/18 Mupirocin Ointment [Bactroban] 1 applic TP TID 08/11/18 Review of Systems - Review of Systems Constitutional: denies: Chills, Fever Eyes: denies: Blind Spots, Recent Change in Vision HENT: denies: Difficult Swallowing, Throat Pain Neck: denies: Pain on Movement, Tenderness Cardiovascular: denies: Chest Pain, Palpitations Respiratory: denies: Cough Gastrointestinal: denies: Abdominal Pain, Constipation, Diarrhea Genitourinary: denies: Discharge, Flank Pain Musculoskeletal: reports: Muscle Pain, Muscle Cramps, Muscle Weakness. denies: Back Pain Neurological: reports: Confusion. denies: Syncope, Tremors Endocrine: denies: Unexplained Weight Gain, Unexplained Weight Loss Hematology/Lymphatic: denies: Easily Bruised, Excessive Bleeding Psychiatric: denies: Altered Sleep Pattern, Anxiety, Depression Physical Exam Vital Signs: Vital Signs Temperature 97.8 F 08/11/18 07:36 Pulse Rate 57 L 08/11/18 07:36 Respiratory Rate 16 08/11/18 07:36 Blood Pressure 134/96 08/11/18 07:36 O2 Sat by Pulse Oximetry (%) 99 08/11/18 08:00 Constitutional: Yes: No Distress, Calm, Thin Eyes: Yes: Conjunctiva Clear, EOM Intact HENT: Yes: Atraumatic, Normocephalic Neck: Yes: Supple, Trachea Midline Cardiovascular: Yes: Regular Rate and Rhythm, S1, S2 Respiratory: Yes: Regular, CTA Bilaterally Gastrointestinal: Yes: Normal Bowel Sounds, Soft, Other (G-J tube with - patent gastrostomy and occluded jujunostomy) ...Rectal Exam: Yes: Deferred Renal/: No: CVA Tenderness - Left, CVA Tenderness - Right Musculoskeletal: Yes: Muscle Weakness. No: Muscle Pain Extremities: Yes: Other (contracted and stiff). No: Cool, Cyanosis Edema: No Peripheral Pulses WNL: Yes Integumentary: No: Jaundice, Rash, Skin Tear Wound/Incision: Yes: Clean/Dry, Well Approximated Neurological: Yes: Alert. No: Oriented Psychiatric: Yes: Alert. No: Oriented Imaging - Results X-ray: Report Reviewed, Image Reviewed Problem List - Problems (1) Gastrostomy tube dysfunction Assessment/Plan: 27yo male MMP clogged jejunostomy tube sent from [facility]. This feeing access has been placed multiple times most recently by Dr. Guillory on 08/05. IR is clearly the least invasive and safest way to manage this patient going forward and hopefully for the last time. He is a poor surgical candidate. This device dysfunction is NOT a technical error on the part of the medical team. The problem is NOT the method in which the feeing access is placed (IR for a Gastro Jejunostomy tube and Surgery for open jejunostomy). The problem is IMPROPER USE OF THE ACCESS BY [facility] STAFF at [facility]. Not running free water after tube feeds Not adding medication to adequate liquid Not flushing medication through the tube to assure that it remains patent THE STAFF REQUIRES TRAINING AND ADEQUATE SUPERVISION ON PROPER USE. PLEASE ADDRESS THIS WITH THE LEADERSHIP OF [facility]. Thank you for the opportunity to participate in the care of this patient. Code(s): K94.23 - GASTROSTOMY MALFUNCTION (2) Acute urinary retention Code(s): R33.8 - OTHER RETENTION OF URINE (3) Cerebral palsy Code(s): G80.9 - CEREBRAL PALSY, UNSPECIFIED Qualifiers: Cerebral palsy type: unspecified type Qualified Code(s): G80.9 - Cerebral palsy, unspecified (4) Seizure Code(s): R56.9 - UNSPECIFIED CONVULSIONS
[2018-08-11] MEDS ORDERED: diazePAM ACUDIAL 5-7.5-10 MG 1 EACH KIT RC PRN (17:14)
[2018-08-11] MEDS ORDERED: ALBUTEROL SO4 2.5/IPRATROPIUM 0.5 INH SOL 3 ML VIAL.NEB. NEB PRN (17:14)
--- NOTE | 2018-08-11 17:16 | PN ---
Teaching Attending Note Name of Resident: Carrie Jones ATTENDING PHYSICIAN STATEMENT I saw and evaluated the patient. I reviewed the resident's note and discussed the case with the resident. I agree with the resident's findings and plan as documented. SUBJECTIVE: CC: per aid and ER : dysfunctional J tube HPI: 27 y/o man with/o spastic quadriplegia, HTN, cerebral palsy, seizures, cortical blindness, and otehr medical problems who was sent from [facility] for dysfunctional J tube. has G-J tube and was here on 08/05 with same problem, at that time tube was changed by IR. no report of vomiting, fever, or abd distention . OBJECTIVE: NAD , pleasant, non verbal MMM, no facial droop. CV: RRR, no MRG Lungs: CTAB Abd: soft, NT, ND, feeding tube in epigastric area. nl BS Ext : non pitting edema on feet. foot drop ASSESSMENT AND PLAN: 27 y/o man with/o spastic quadriplegia, HTN, cerebral palsy, seizures, cortical blindness, and otehr medical problems who was sent from [place] for dysfunctional J tube. 1- Dysfunctional J tube: case was d/dw IR, who recommended surgical evaluation due to recurrent problems with tube - Surgery Recs pending - hold TF for now - give meds through G tube 2- H/o Seizures. - meds to be reconciled. - resume meds through G tube 3- H/o HTN: cont meds through G tube 4- DVT PX : SCDS and heparin. can hold heparin in am for any surgical intervention 5- Nutrition : Jevity to be held for now. add low dose IVF over night to contact [facility] for code status, decision making for him ., and other details
[2018-08-11] MEDS ORDERED: SCOPOLAMINE HYDROBROMIDE 1 PATCH PATCH.TD72 TD SCH (17:45)
[2018-08-11] MEDS ORDERED: SODIUM CHLORIDE 500 ML IV STA (18:07)
[2018-08-11] MEDS: SODIUM CHLORIDE 1,000 ML IV SCH (18:11)
[2018-08-11 18:27] LABS: BASO % 0.4 % (0-2.0); EOS % 1.4 % (0-4.5); HEMATOCRIT 41.2 % (35.4-49); HEMOGLOBIN 14.1 GM/dL (11.7-16.9); LYMPH % 28.8 % (8-40); MCH 29.6 pg (25.7-33.7); MCHC 34.3 g/dl (32.0-35.9); MEAN CELL VOLUME 86.3 fl (80-96); MEAN PLT VOLUME 7.8 fl (7.5-11.1); NEUT % 60.4 % (42.8-82.8); PLATELET COUNT 324 K/MM3 (134-434); RBC 4.77 M/mm3 (4.00-5.60); RDW 15.5 % (11.9-15.9); WHITE BLOOD COUNT 5.9 K/mm3 (4.0-10.0)
[2018-08-11 19:13] LABS: ALBUMIN 3.7 g/dl (3.4-5.0); ALK PHOS 131 U/L (45-117); ANION GAP 10 MMOL/L (8-16); BILIRUBIN,TOTAL 0.2 mg/dL (0.2-1); BLOOD UREA NITROGEN 5 mg/dL (7-18); CALCIUM 8.6 mg/dL (8.5-10.1); CHLORIDE 104 mmol/L (98-107); CO2 23 mmol/L (21-32); CREATININE 0.4 mg/dL (0.55-1.3); GLUCOSE,RANDOM 94 mg/dL (74-106); SGOT/AST 12 U/L (15-37); SGPT/ALT 29 U/L (13-61); SODIUM 137 mmol/L (136-145); TOT PROT 8.2 g/dl (6.4-8.2)
[2018-08-11] MEDS: BUDESONIDE 0.5 MG/2 ML INH SUSP VIAL NEB SCH (19:46)
[2018-08-11] MEDS: ALBUTEROL SO4 2.5/IPRATROPIUM 0.5 INH SOL 3 ML VIAL.NEB. NEB SCH (19:46)
[2018-08-11] MEDS ORDERED: cloNIDine HCL 0.1 MG TABLET PO SCH (22:00)
[2018-08-11] MEDS ORDERED: ASPIRIN 81 MG CHEWABLE TABLETS GT SCH (22:00)
[2018-08-11] MEDS ORDERED: PT OWN MED DRAWER 7, Y5N ONE (22:33)
[2018-08-11] MEDS: BACLOFEN 10 MG TABLET (FP) GT SCH ×2 (22:51→23:00)
[2018-08-11] MEDS: clonazePAM 2 MG TABLET GT SCH (22:56)
[2018-08-11] MEDS: TRIAMCINOLONE ACET 0.1% CREAM 15 GM TUBE TP SCH (22:57)
[2018-08-11] MEDS: MUPIROCIN 2% TOPICAL OINTMENT 22 GM TUBE TP SCH (22:57)
[2018-08-11] MEDS: levETIRAcetam 500 MG/5 ML ORAL SOLUTION (UNIT-DOSE CUPS) GT SCH (22:58)
[2018-08-11] MEDS: carBAMazepine 200 MG/10 ML UNIT-DOSE CUP GT SCH (22:58)
[2018-08-11] MEDS: HEPARIN NA (PORCINE) 5,000 UNITS/ML 1ML VIAL SQ SCH (22:58)
[2018-08-11] MEDS: NYSTATIN 100000 UNIT/GM TOPICAL OINTMENT 15 GM TUBE TP SCH (22:59)
[2018-08-12] MEDS: ALBUTEROL SO4 2.5/IPRATROPIUM 0.5 INH SOL 3 ML VIAL.NEB. NEB SCH ×5 (00:09→15:13)
[2018-08-12] MEDS: MUPIROCIN 2% TOPICAL OINTMENT 22 GM TUBE TP SCH ×2 (06:06→15:46)
[2018-08-12] MEDS: HEPARIN NA (PORCINE) 5,000 UNITS/ML 1ML VIAL SQ SCH (06:13)
[2018-08-12] MEDS: clonazePAM 2 MG TABLET GT SCH ×2 (07:08→14:00)
[2018-08-12] MEDS: LIPASE/PROTEASE/AMYLASE 6,000 UNIT CAPSULE PO SCH ×3 (07:08→17:39)
[2018-08-12] MEDS: BACLOFEN 10 MG TABLET (FP) PO SCH ×2 (07:08→13:00)
[2018-08-12 07:22] LABS: BASO % 0.3 % (0-2.0); EOS % 1.2 % (0-4.5); HEMATOCRIT 41.4 % (35.4-49); HEMOGLOBIN 13.4 GM/dL (11.7-16.9); LYMPH % 27.8 % (8-40); MCH 28.3 pg (25.7-33.7); MCHC 32.4 g/dl (32.0-35.9); MEAN CELL VOLUME 87.3 fl (80-96); MEAN PLT VOLUME 7.5 fl (7.5-11.1); MONO % 11.9 % (3.8-10.2); NEUT % 58.8 % (42.8-82.8); PLATELET COUNT 279 K/MM3 (134-434); RBC 4.74 M/mm3 (4.00-5.60); RDW 15.1 % (11.9-15.9); WHITE BLOOD COUNT 6.5 K/mm3 (4.0-10.0)
[2018-08-12 07:28] VITALS: TEMP 97.8
[2018-08-12] MEDS: BUDESONIDE 0.5 MG/2 ML INH SUSP VIAL NEB SCH (07:30)
[2018-08-12 08:08] LABS: ALBUMIN 3.5 g/dl (3.4-5.0); ALK PHOS 126 U/L (45-117); ANION GAP 9 MMOL/L (8-16); BILIRUBIN,TOTAL 0.2 mg/dL (0.2-1); BLOOD UREA NITROGEN 10 mg/dL (7-18); CALCIUM 8.4 mg/dL (8.5-10.1); CHLORIDE 105 mmol/L (98-107); CO2 24 mmol/L (21-32); CREATININE 0.5 mg/dL (0.55-1.3); GLUCOSE,RANDOM 84 mg/dL (74-106); POTASSIUM 4.3 mmol/L (3.5-5.1); SGOT/AST 12 U/L (15-37); SGPT/ALT 27 U/L (13-61); SODIUM 138 mmol/L (136-145); TOT PROT 7.8 g/dl (6.4-8.2)
[2018-08-12] MEDS ORDERED: PATIENT'S OWN MEDICATION (NON-FORMULARY) (Lactose-Reduced Food/Fiber [Jevity 1.5 Cal Liqui GT SCH (10:00)
[2018-08-12] MEDS ORDERED: RANITIDINE HCL 150 MG/10 ML UNIT-DOSE GT SCH (10:00)
[2018-08-12] MEDS ORDERED: CHOLECALCIFEROL (VITAMIN D3) 1,000 UNIT TABLET (FP) GT SCH (10:00)
--- NOTE | 2018-08-12 10:19 | EKG ---
Test Reason : Blood Pressure : / mmHG Vent. Rate : 079 BPM Atrial Rate : 079 BPM P-R Int : 138 ms QRS Dur : 082 ms QT Int : 382 ms P-R-T Axes : 035 099 069 degrees QTc Int : 438 ms POOR DATA QUALITY, INTERPRETATION MAY BE ADVERSELY AFFECTED SINUS RHYTHM WITH MARKED SINUS ARRHYTHMIA RIGHTWARD AXIS INFERIOR INFARCT (CITED ON OR BEFORE 19-JAN-2015) T WAVE ABNORMALITY, CONSIDER ANTERIOR ISCHEMIA ABNORMAL ECG WHEN COMPARED WITH ECG OF 13-JUL-2018 15:25, VENT. RATE HAS DECREASED BY 54 BPM T WAVE INVERSION NO LONGER EVIDENT IN INFERIOR LEADS Confirmed by WILBUR PATRICK, FELIZ ([id number]) on 08/12/2018 10:19:01 AM Referred By: Confirmed By:FELIZ BOWLES MD
[2018-08-12] MEDS: levETIRAcetam 500 MG/5 ML ORAL SOLUTION (UNIT-DOSE CUPS) GT SCH (11:42)
[2018-08-12] MEDS: carBAMazepine 200 MG/10 ML UNIT-DOSE CUP GT SCH (11:42)
[2018-08-12] MEDS: TRIAMCINOLONE ACET 0.1% CREAM 15 GM TUBE TP SCH (11:42)
[2018-08-12] MEDS: NYSTATIN 100000 UNIT/GM TOPICAL OINTMENT 15 GM TUBE TP SCH (11:43)
[2018-08-12] MEDS ORDERED: PT OWN MED DRAWER 7, Y5N ONE (15:41)
--- NOTE | 2018-08-12 15:48 | DS ---
Physical Exam: SUBJECTIVE: Patient is a 27 y/o male with a history of MR, spastic quadriparesis , cerebral palsy, intractable seizures, and cortical blindness who presents for clogged J tube. No acute events overnight. OBJECTIVE: Vital Signs Temperature 97.8 F 08/12/18 15:07 Pulse Rate 60 08/12/18 16:34 Respiratory Rate 22 H 08/12/18 16:34 Blood Pressure 110/71 08/12/18 16:34 O2 Sat by Pulse Oximetry (%) 98 08/12/18 16:00 PHYSICAL EXAM GENERAL: Awake, contracted, nonverbal HEAD: Normal with no signs of trauma. EYES: Pupils equal, round and reactive to light, extraocular movements intact, EARS, NOSE, THROAT: Ears normal, nares patent, oropharynx clear without exudates. Moist mucous membranes. LUNGS: Breath sounds equal, clear to auscultation bilaterally. No wheezes, and no crackles. No accessory muscle use. HEART: Regular rate and rhythm, normal S1 and S2 without murmur, rub or gallop. ABDOMEN: no erythema around G tube sight, no skin breakdown LOWER EXTREMITIES: 2+ pulses, warm, well-perfused. No calf tenderness. No peripheral edema. SKIN: no evidence of skin breakdown, no sacral or heel ulcer LABS CBC, BMP 08/12/18 06:45 08/12/18 06:45 HOSPITAL COURSE: Date of Admission:08/11/18 Patient was admitted from [facility] for clogged GJ tube. Patient was evaluated by IR and by surgery. Patients GJ tube was removed and a G tube was placed. Patients medications and feeds able to be continued through the Gtube. All medications remained the same. Spoke to patients family and made aware of the use of the G tube. Date of Discharge: 08/12/18 Minutes to complete discharge: 35 Discharge Summary Reason For Visit: GASTROSTOMY TUBE DYSFUNCTION Current Active Problems Gastrostomy tube dysfunction (Acute) Condition: Good - Instructions Diet, Activity, Other Instructions: You were admitted to the hospital for a clogged GJ tube. - continue medication and feeds through the G tube portion of your GJ tube. - need surgical eval. please refer to Dr. Astorga to fix J tube Please continue your home medications as prescribed. Return to the Emergency Department if you have fever, chills, trouble breathing , vomiting, or diarrhea. Referrals: Bernardo Mayorga Jr [Non Staff, Medical] - Phil Ryder MD [Staff Physician] - Disposition: HOME - Home Medications Comprehensive Discharge Medication List: Ambulatory Orders levETIRAcetam [Keppra Oral Solution -] 1,500 mg GT BID 01/19/15 Aspirin [ASA -] 81 mg GT HS 03/17/18 Carbamazepine [Tegretol -] 280 mg GT BID 03/17/18 Cholecalciferol (Vitamin D3) [Vitamin D3] 2,000 unit GT DAILY 03/17/18 Omeprazole Magnesium [Prilosec] 20 mg GT DAILY 03/17/18 Tamsulosin HCl [Flomax -] 0.4 mg GT DAILY 03/17/18 cloNIDine HCL [Catapres -] 0.2 mg PO HS 03/17/18 clonazePAM [KlonoPIN -] 1 mg GT TID 03/17/18 Baclofen [Lioresal -] 10 mg PO DAILY@0600,1200 tablet 03/21/18 Baclofen [Lioresal -] 20 mg GT DAILY@1800,0000 tablet 03/21/18 Budesonide [Pulmicort 0.5 mg Nebulizer -] 1 neb NEB BID 07/12/18 Diazepam [Diastat Acudial] 20 mg RC PRN PRN 07/12/18 Ipratropium/Albuterol Sulfate [Iprat-Albut 0.5-3(2.5) mg/3 ml] 3 ml IH QID PRN 07/12/18 Nystatin Ointment [Mycostatin Ointment -] 1 applic TP BID 07/12/18 Triamcinolone 0.1% Cream [Aristocort 0.1% Cream -] 1 applic TP BID 07/12/18 Albuterol 2.5/Ipratropium 0.5 [Duoneb -] 1 amp NEB RQ4H amp 07/18/18 Scopolamine Hydrobromide [Transderm-Scop -] 1 patch TD Q72H #10 patch.td72 07/18 Lactose-Reduced Food/Fiber [Jevity 1.5 Hermes Liquid] 100 ml GT DAILY 08/11/18 Mupirocin Ointment [Bactroban] 1 applic TP TID 08/11/18 This patient is new to me today: No Emergency Visit: No Critical Care patient: No - Discharge Referral Referred to [facility] Med P.C.: No
[2018-08-12] MEDS: SODIUM CHLORIDE 1,000 ML IV SCH (15:50)
[2018-08-12 16:35] VITALS: BP 110/71; PULSE 60
--- NOTE | 2018-08-12 16:45 | PN ---
Teaching Attending Note Name of Resident: Carrie Jones ATTENDING PHYSICIAN STATEMENT I saw and evaluated the patient. I reviewed the resident's note and discussed the case with the resident. I agree with the resident's findings and plan as documented. SUBJECTIVE: no events over night . OBJECTIVE: NAD, pleasant, non verbal MMM, no facial droop. CV: RRR, no MRG Lungs: CTAB Abd: soft, NT, ND, feeding tube in epigastric area. nl BS Ext : non pitting edema on feet. foot drop ASSESSMENT AND PLAN: 27 y/o man with/o spastic quadriplegia, HTN, cerebral palsy, seizures, cortical blindness, and otehr medical problems who was sent from [place] for dysfunctional J tube. 1- Dysfunctional J tube:GJ tube was replaced with a G tube at bed side by Dr. Guillory. resume feeding 2- H/o Seizures. - cont meds 3- H/o HTN: cont meds through G tube DC back to [facility] today
[2018-08-12] MEDS: BACLOFEN 10 MG TABLET (FP) GT SCH (17:42)
== END 2018-08-12 18:43 | disposition home or self-care (01) ==
LOC: JER 07:23 → JERBED 16:05 → J5S 18:46
PROVIDERS: ADMIT Internal Medicine; ATTEND Internal Medicine
PROC: 0D2DXUZ Change Feeding Device in Lower Intestinal Tract, External Approach (ICD-10-PCS; principal; 2018-08-11)
PROC: 3E0337Z Introduction of Electrolytic and Water Balance Substance into Peripheral Vein, Percutaneous Approach (ICD-10-PCS; 2018-08-11)
PROC: 3E0F7GC Introduction of Other Therapeutic Substance into Respiratory Tract, Via Natural or Artificial Opening (ICD-10-PCS; 2018-08-11)
DX: K94.23 Gastrostomy malfunction (principal); F73 Profound intellectual disabilities; G80.0 Spastic quadriplegic cerebral palsy; G40.919 Epilepsy, unspecified, intractable, without status epilepticus; H47.619 Cortical blindness, unspecified side of brain; J45.909 Unspecified asthma, uncomplicated; R33.8 Other retention of urine; Z79.82 Long term (current) use of aspirin
CPT/HCPCS: 36415; 49450; 71047-TC-FY; 74018-TC-FY; 80053; 85025; 93005; 93010; 94640; 96360; 99285-25; G0378; J0475; J0735; J7030

== ENCOUNTER 2018-09-22 03:44 | Inpatient (IN) | payer OTHER ==
--- NOTE | 2018-09-22 03:56 | PDOC ---
History of Present Illness - General Stated Complaint: FEVER History Source: Care Provider (Jacquelyn) Exam Limitations: Clinical Condition - History of Present Illness Initial Comments: 09/22/18 06:12 28 yo M with a hx of MR, spastic quadraparesis, cerebral palsy, intractable seizures, and cortical blindness ELINA presents to the emergency department with respiratory distress and fevers. Per the health aide, she states he began this evening feeling feverish, shaking, and breathing with effort at a fast rate. Denies other members at [facility] of having an illness. The patient's healthcare is decided by Dr. Mayorga. The patient is non verbal. Past History - Past Medical History Allergies/Adverse Reactions: Allergies Allergy/AdvReac Type Severity Reaction Status Date / Time Beef Containing Products Allergy Unknown Verified 09/22/18 04:04 erythromycin base Allergy Verified 09/22/18 04:04 phenobarbital Allergy Verified 09/22/18 04:04 venom-honey bee Allergy Verified 09/22/18 04:04 [bee venom (honey bee)] Home Medications: Ambulatory Orders levETIRAcetam [Keppra Oral Solution -] 1,500 mg GT BID 01/19/15 Aspirin [ASA -] 81 mg GT HS 03/17/18 Carbamazepine [Tegretol -] 280 mg GT BID 03/17/18 Cholecalciferol (Vitamin D3) [Vitamin D3] 2,000 unit GT DAILY 03/17/18 Omeprazole Magnesium [Prilosec] 20 mg GT DAILY 03/17/18 Tamsulosin HCl [Flomax -] 0.4 mg GT DAILY 03/17/18 cloNIDine HCL [Catapres -] 0.2 mg PO HS 03/17/18 clonazePAM [KlonoPIN -] 1 mg GT TID 03/17/18 Baclofen [Lioresal -] 10 mg PO DAILY@0600,1200 tablet 03/21/18 Baclofen [Lioresal -] 20 mg GT DAILY@1800,0000 tablet 03/21/18 Budesonide [Pulmicort 0.5 mg Nebulizer -] 1 neb NEB BID 07/12/18 Diazepam [Diastat Acudial] 20 mg RC PRN PRN 07/12/18 Ipratropium/Albuterol Sulfate [Iprat-Albut 0.5-3(2.5) mg/3 ml] 3 ml IH QID PRN 07/12/18 Nystatin Ointment [Mycostatin Ointment -] 1 applic TP BID 07/12/18 Triamcinolone 0.1% Cream [Aristocort 0.1% Cream -] 1 applic TP BID 07/12/18 Albuterol 2.5/Ipratropium 0.5 [Duoneb -] 1 amp NEB RQ4H amp 07/18/18 Scopolamine Hydrobromide [Transderm-Scop -] 1 patch TD Q72H #10 patch.td72 07/18 Lactose-Reduced Food/Fiber [Jevity 1.5 Hermes Liquid] 100 ml GT DAILY 08/11/18 Mupirocin Ointment [Bactroban] 1 applic TP TID 08/11/18 Asthma: Yes COPD: Yes (asthma, aspiration pnuemonia and respiratory distress) Dementia: Yes (mental retardation) GI Disorders: Yes (dysphagia, s/p peg insertion) Psychiatric Problems: (hyponatremia (due to meds)) Seizures: Yes - Surgical History Orthopedic Surgery: (Left Hip Osteotomy) - Immunization History Immunization Up to Date: Yes - Suicide/Smoking/Psychosocial Hx Smoking History: Never smoked Have you smoked in the past 12 months: No Number of Cigarettes Smoked Daily: 0 Cigars Per Day: 0 Hx Alcohol Use: No Drug/Substance Use Hx: No Substance Use Type: None Hx Substance Use Treatment: No Review of Systems - Review of Systems Able to Perform ROS?: No (non verbal) *Physical Exam - Physical Exam General Appearance: Yes: Nourished, Appropriately Dressed, Moderate Distress, Other (contracted extremities. microcephaly) HEENT: positive: Excessive drooling. negative: SILVESTRE, Pale Conjunctivae, Scleral Icterus (R), Scleral Icterus (L), Pharyngeal Erythema, Tonsillar Exudate , Tonsillar Erythema Neck: positive: Trachea midline. negative: Tender, Lymphadenopathy (L), Rigidity, Tender lateral, Tender midline Respiratory/Chest: positive: Respiratory Distress, Accessory Muscle Use, Labored Respiration, Rapid RR, Crackles, Rales, Rhonchi. negative: Chest Tender , Lungs Clear, Normal Breath Sounds Cardiovascular: positive: Regular Rhythm, S1, S2, Tachycardia. negative: Systolic Murmur Gastrointestinal/Abdominal: positive: Normal Bowel Sounds, Flat, Soft, Other (g tube in place without exudative process). negative: Tender Lymphatic: negative: Adenopathy Musculoskeletal: positive: Other (contracted in all 4 extremities). negative: Normal Inspection Extremity: positive: Normal Capillary Refill. negative: Normal Inspection, Normal Range of Motion, Tender, Swelling, Calf Tenderness, Erythema Integumentary: positive: Normal Color, Warm, Diaphoresis Neurologic: positive: Alert. negative: cleaning maid II-XII NML intact, Fully Oriented, Normal Mood/Affect, Motor Strength 5/5 Procedures - Intubation Time of Intubation: 05:00 Intubation Method: orotracheal Blade used: Mac Tube Size (Fr): 7.0 Medications: Etomidate, Rocuronium Tube position @ lip (cm): 22 Tube position confirmed by: Direct visualization, CO2 detector, Chest x-ray, Breath sounds Breath Sounds after Intubation: equal Intubation Complications: no complications Post Intubation Xray: Yes ED Treatment Course - LABORATORY CBC & Chemistry Diagram: 09/22/18 04:58 09/22/18 04:58 Medical Decision Making - Medical Decision Making 09/22/18 07:34 28 yo M with a hx of MR, spastic quadraparesis, cerebral palsy, intractable seizures, and cortical blindness BIBEMS presents to the emergency department with respiratory distress and fevers. Initial vitals: Initial Vital Signs Temp Pulse Resp BP Pulse Ox 101.7 F H 140 H 20 96/63 95 09/22/18 03:57 09/22/18 03:57 09/22/18 03:57 09/22/18 03:57 09/22/18 03:57 Work up: sepsis work up will commence. source of infection will be elucidated with CXR, UA, and labs Laboratory Tests 09/22/18 09/22/18 09/22/18 04:58 04:58 04:58 WBC Cancelled Corrected WBC (auto) Cancelled RBC Cancelled Hgb Cancelled Hct Cancelled MCV Cancelled MCH Cancelled MCHC Cancelled RDW Cancelled Plt Count Cancelled MPV Cancelled Absolute Neuts (auto) Cancelled Neutrophils % Cancelled Lymphocytes % Cancelled Monocytes % Cancelled Eosinophils % Cancelled Basophils % Cancelled Nucleated RBC % Cancelled Platelet Estimate Cancelled Platelet Comment Cancelled PT with INR Cancelled INR Cancelled PTT (Actin FS) Cancelled Sodium Cancelled Potassium Cancelled Chloride Cancelled Carbon Dioxide Cancelled Anion Gap Cancelled BUN Cancelled Creatinine Cancelled Creat Clearance w eGFR Cancelled Random Glucose Cancelled Lactic Acid Calcium Cancelled Total Bilirubin Cancelled AST Cancelled ALT Cancelled Alkaline Phosphatase Cancelled Troponin I Total Protein Cancelled Albumin Cancelled Urine Color Urine Appearance Urine pH Ur Specific [place] Urine Protein Urine Glucose (UA) Urine Ketones Urine Blood Urine Nitrite Urine Bilirubin Urine Urobilinogen Ur Leukocyte Esterase Urine WBC (Auto) Urine RBC (Auto) Ur Epithelial Cells Hyaline Casts Urine Mucus 09/22/18 09/22/18 09/22/18 04:58 05:00 05:47 WBC Corrected WBC (auto) RBC Hgb Hct MCV MCH MCHC RDW Plt Count MPV Absolute Neuts (auto) Neutrophils % Lymphocytes % Monocytes % Eosinophils % Basophils % Nucleated RBC % Platelet Estimate Platelet Comment PT with INR INR PTT (Actin FS) Sodium Potassium Chloride Carbon Dioxide Anion Gap BUN Creatinine Creat Clearance w eGFR Random Glucose Lactic Acid 5.2 H* Calcium Total Bilirubin AST ALT Alkaline Phosphatase Troponin I Cancelled Total Protein Albumin Urine Color Le Urine Appearance Cloudy Urine pH 5.0 D Ur Specific [place] 1.025 Urine Protein 2+ H Urine Glucose (UA) 1+ H Urine Ketones Trace H Urine Blood Negative Urine Nitrite Negative Urine Bilirubin Negative Urine Urobilinogen Negative Ur Leukocyte Esterase Negative Urine WBC (Auto) 3 Urine RBC (Auto) 3 Ur Epithelial Cells Rare Hyaline Casts 26 Urine Mucus Rare labs were hemolyzed per the lab. patient has respiratory distress in the department with increased work of breathing requiring greater O2 requirement plan to intubate initiated and was successful with 7.0 diameter plan to have placement of central line via subclavian initiated by Dr. Breaux Central line placement not successful. will sign out patient to day team to have central line placed. Patient signed out to Dr. Cueto. *DC/Admit/Observation/Transfer Diagnosis at time of Disposition: Sepsis Qualifiers: Sepsis type: sepsis due to unspecified organism Qualified Code(s): A41.9 - Sepsis, unspecified organism - Referrals - Patient Instructions - Post Discharge Activity
--- NOTE | 2018-09-22 03:57 | PDOC ---
Attending Attestation - Resident Resident Name: Rob Porter - ED Attending Attestation I have performed the following: I have examined & evaluated the patient, The case was reviewed & discussed with the resident, I agree w/resident's findings & plan - HPI HPI: 09/22/18 06:54 28-year-old male with history of cerebral palsy sent in for evaluation of acute onset of shortness of breath. Patient resides in a long-term care facility. - Physicial Exam PE: 09/22/18 06:55 Agree with resident's exam - Critical Care Time Total Critical Care Time: 55 (W not want any) Critical Care Statement: The care of this patient involved high complexity decision making to prevent further life threatening deterioration of the patient 's condition and/or to evaluate & treat vital organ system(s) failure or risk of failure. - Medical Decision Making 09/22/18 06:56 28-year-old male with fever and acute respiratory distress Sepsis protocol initiated Patient intubated due to severe respiratory distress and oxygen saturation of 80 % on nonrebreather ET tube placement confirmed with chest x-ray Attempts made to insert subclavian central lines bilaterally without success due to patient's body habitus Repeat chest x-ray as well as labs pending, plan for ICU admission when resulted Impression acute respiratory failure Sepsis
[2018-09-22] MEDS ORDERED: SODIUM CHLORIDE 1,000 ML IV STA (04:00)
[2018-09-22] MEDS ORDERED: ACETAMINOPHEN 1000 MG/100 ML VIAL (NON FORMULARY) IVPB ONE (04:00)
[2018-09-22] MEDS ORDERED: ACETAMINOPHEN INJECTION 100 ML IVPB ONE (04:35)
[2018-09-22] MEDS ORDERED: RAPID SEQUENCE INTUBATION KIT NR ONE (05:16)
[2018-09-22] MEDS ORDERED: ETOMIDATE 40 MG/20 ML VIAL IVPUSH ONE (05:38)
[2018-09-22] MEDS ORDERED: ROCURONIUM BROMIDE 50 MG/5 ML VIAL IV ONE (05:38)
[2018-09-22] MEDS ORDERED: PROPOFOL 200 MG/20 ML VIAL IVPUSH ONE (06:26)
[2018-09-22 06:38] LABS: URINE APPEARANCE CLOUDY; URINE BILIRUBIN NEGATIVE (<2.0 mg/dL); URINE COLOR AMBER; URINE GLUCOSE (UA) 1+ (NEGATIVE); URINE KETONE TRACE (NEGATIVE); URINE LEUK ESTERASE NEGATIVE (NEGATIVE); URINE NITRITE NEGATIVE (NEGATIVE); URINE PROTEIN 2+ (NEGATIVE); URINE UROBILINOGEN NEGATIVE mg/dL (0.2-1.0)
[2018-09-22] MEDS ORDERED: VANCOMYCIN 1,000 MG in DEXTROSE 5%-WATER - 250 ML IVPB ONE (06:39)
[2018-09-22] MEDS ORDERED: PIPERACILLIN/TAZOB 3.375 GM 3.375 GM in DEXTROSE 5%-WATER - 50 ML IVPB ONE (06:39)
[2018-09-22] MEDS ORDERED: PROPOFOL 1,000,000 MCG/100 ML VIAL ONE (06:43)
[2018-09-22 07:06] LABS: EPI CELLS RARE /HPF (FEW); URINE HYALINE CAST 26 /lpf; URINE MUCUS RARE
[2018-09-22] MEDS: FENTANYL INJECTION 500 MCG in DEXTROSE 5%-WATER - 90 ML IVPB SCH (07:33)
--- NOTE | 2018-09-22 07:52 | PDOC ---
*Physical Exam - Vital Signs Last Vital Signs Temp Pulse Resp BP Pulse Ox 101.7 F H 132 H 20 96/63 100 09/22/18 05:15 09/22/18 05:15 09/22/18 07:16 09/22/18 03:57 09/22/18 05:15 ED Treatment Course - LABORATORY CBC & Chemistry Diagram: 09/25/18 05:30 09/25/18 05:30 - ADDITIONAL ORDERS Additional order review: Laboratory Results 09/22/18 09/22/18 09/22/18 05:47 05:00 04:58 PT with INR INR PTT (Actin FS) Sodium Potassium Chloride Carbon Dioxide Anion Gap BUN Creatinine Creat Clearance w eGFR Random Glucose Lactic Acid 5.2 H* Calcium Total Bilirubin AST ALT Alkaline Phosphatase Troponin I Cancelled Total Protein Albumin Urine Color Le Urine Appearance Cloudy Urine pH 5.0 D Ur Specific [place] 1.025 Urine Protein 2+ H Urine Glucose (UA) 1+ H Urine Ketones Trace H Urine Blood Negative Urine Nitrite Negative Urine Bilirubin Negative Urine Urobilinogen Negative Ur Leukocyte Esterase Negative 09/22/18 09/22/18 04:58 04:58 PT with INR Cancelled INR Cancelled PTT (Actin FS) Cancelled Sodium Cancelled Potassium Cancelled Chloride Cancelled Carbon Dioxide Cancelled Anion Gap Cancelled BUN Cancelled Creatinine Cancelled Creat Clearance w eGFR Cancelled Random Glucose Cancelled Lactic Acid Calcium Cancelled Total Bilirubin Cancelled AST Cancelled ALT Cancelled Alkaline Phosphatase Cancelled Troponin I Total Protein Cancelled Albumin Cancelled Urine Color Urine Appearance Urine pH Ur Specific [place] Urine Protein Urine Glucose (UA) Urine Ketones Urine Blood Urine Nitrite Urine Bilirubin Urine Urobilinogen Ur Leukocyte Esterase 09/22/18 04:58 RBC Cancelled MCV Cancelled MCHC Cancelled RDW Cancelled MPV Cancelled Neutrophils % Cancelled Lymphocytes % Cancelled Monocytes % Cancelled Eosinophils % Cancelled Basophils % Cancelled - Medications Given in the ED: ED Medications Discontinued Medications Generic Name Dose Route Start Last Admin Trade Name Merced[place] PRN Reason Stop Dose Admin Acetaminophen 1,000 mg 09/22/18 04:00 09/22/18 05:02 Ofirmev Injection - IVPB 09/22/18 04:01 1,000 mg ONCE ONE Administration Etomidate 15 mg 09/22/18 05:38 09/22/18 06:01 Amidate - IVPUSH 09/22/18 05:39 15 mg NOW ONE Administration Fentanyl 100 mcg 09/22/18 07:20 09/22/18 07:33 Sublimaze Injection - IVPUSH 09/22/18 07:21 100 mcg ONCE ONE Administration Sodium Chloride 1,000 mls @ 1,000 mls/hr 09/22/18 04:00 09/22/18 05:02 Normal Saline - IV 09/22/18 04:59 1,000 mls/hr ASDIR STA Administration Propofol 40,000 mcg 09/22/18 06:26 09/22/18 07:33 Diprivan - IVPUSH 09/22/18 06:27 40,000 mcg ONCE ONE Administration Rocuronium [place] 50 mg 09/22/18 05:38 09/22/18 06:01 Zemuron - IV 09/22/18 05:39 50 mg ONCE ONE Administration Medical Decision Making - Critical Care Time Total Critical Care Time (minutes): 120 Critical Care Statement: The care of this patient involved high complexity decision making to prevent further life threatening deterioration of the patient 's condition and/or to evaluate & treat vital organ system(s) failure or risk of failure. - Medical Decision Making 09/22/18 10:57 09/22/18 07:46 Care received at 0700 Briefly, pt in septic shock, lactate 5, intubated, subclavean central line attempt b/l unsuccessful labs sent after fem stick 24G IV in R foot On propofol gtt and 1L NS On my evaluation, pt agitated HR 108, sinus tachy Sat 96%, BP 96/72 Switched propofol to fentanyl 100mcg bolus, started gtt Review of CXR with possible pneumothorax on R likely 2/2 subclavean attempt US with decreased lung sliding Plan for pig tail and central line access at this time 09/22/18 08:[address] Medina w/o ptx Spoke with Dr. Medina, does not see ptx but requests repeat CXR Obtaining central line at this time Will rpt CXR 09/22/18 10:06 Attempt at femoral line x2 unsuccessful R IJ placed successfully using ultrasound guidance under sterile conditions Post procedural CXR ordered HR 87, O2 sat 98%, BP 112/74, vitals stable Labs pending Once back, will get ICU bed. 09/22/18 10:57 +definite R ptx on CXR, setting up pigtail chest tube at this time CXR with central line in R atrium, plan to pull back 09/22/18 12:03 R sided pig tail placed w/o complication Connected to wall suction Rpt CXR ordered Case discussed with Dr. Trevizo, pt accepted to ICU 09/22/18 12:37 Rpt CXR with good placement, good expansion on lung Updated Dr. Quintero of the above, pt awaiting bed in ICU *DC/Admit/Observation/Transfer Diagnosis at time of Disposition: Fever, Tachycardia Sepsis Qualifiers: Sepsis type: sepsis due to unspecified organism Qualified Code(s): A41.9 - Sepsis, unspecified organism - Discharge Dispostion Condition at time of disposition: Stable Decision to Admit order: Yes - Referrals - Patient Instructions - Post Discharge Activity - Attestations Physician Attestion: 09/22/18 12:04 I, Dr. Jose Zamora MD, attest that this document has been prepared under my direction and personally reviewed by me in its entirety. I further attest, that it accurately reflects all work, treatment, procedures and medical decision -making performed by me.
[2018-09-22] MEDS ORDERED: PIPERACILLIN/TAZOB 3.375 GM 3.375 GM/50 ML BAG IVPB ONE (09:10)
[2018-09-22] MEDS ORDERED: VANCOMYCIN 1 GRAM (PRE-DOCKED) 1,000 MG/250 ML BAG IVPB ONE (09:10)
--- NOTE | 2018-09-22 10:16 | PDOC ---
*Physical Exam - Vital Signs Last Vital Signs Temp Pulse Resp BP Pulse Ox 99.3 F 78 18 114/70 99 09/22/18 08:25 09/22/18 09:16 09/22/18 09:16 09/22/18 09:16 09/22/18 09:16 ED Treatment Course - LABORATORY CBC & Chemistry Diagram: 09/22/18 10:47 09/22/18 04:58 - ADDITIONAL ORDERS Additional order review: Laboratory Results 09/22/18 09/22/18 09/22/18 05:47 05:00 04:58 PT with INR INR PTT (Actin FS) Sodium Potassium Chloride Carbon Dioxide Anion Gap BUN Creatinine Creat Clearance w eGFR Random Glucose Lactic Acid 5.2 H* Calcium Total Bilirubin AST ALT Alkaline Phosphatase Troponin I Cancelled Total Protein Albumin Urine Color Le Urine Appearance Cloudy Urine pH 5.0 D Ur Specific [place] 1.025 Urine Protein 2+ H Urine Glucose (UA) 1+ H Urine Ketones Trace H Urine Blood Negative Urine Nitrite Negative Urine Bilirubin Negative Urine Urobilinogen Negative Ur Leukocyte Esterase Negative Urine WBC (Auto) 3 Urine RBC (Auto) 3 Ur Epithelial Cells Rare Hyaline Casts 26 Urine Mucus Rare 09/22/18 09/22/18 04:58 04:58 PT with INR Cancelled INR Cancelled PTT (Actin FS) Cancelled Sodium Cancelled Potassium Cancelled Chloride Cancelled Carbon Dioxide Cancelled Anion Gap Cancelled BUN Cancelled Creatinine Cancelled Creat Clearance w eGFR Cancelled Random Glucose Cancelled Lactic Acid Calcium Cancelled Total Bilirubin Cancelled AST Cancelled ALT Cancelled Alkaline Phosphatase Cancelled Troponin I Total Protein Cancelled Albumin Cancelled Urine Color Urine Appearance Urine pH Ur Specific [place] Urine Protein Urine Glucose (UA) Urine Ketones Urine Blood Urine Nitrite Urine Bilirubin Urine Urobilinogen Ur Leukocyte Esterase Urine WBC (Auto) Urine RBC (Auto) Ur Epithelial Cells Hyaline Casts Urine Mucus 09/22/18 04:58 RBC Cancelled MCV Cancelled MCHC Cancelled RDW Cancelled MPV Cancelled Neutrophils % Cancelled Lymphocytes % Cancelled Monocytes % Cancelled Eosinophils % Cancelled Basophils % Cancelled - Medications Given in the ED: ED Medications Discontinued Medications Generic Name Dose Route Start Last Admin Trade Name Freq PRN Reason Stop Dose Admin Acetaminophen 1,000 mg 09/22/18 04:00 09/22/18 05:02 Ofirmev Injection - IVPB 09/22/18 04:01 1,000 mg ONCE ONE Administration Etomidate 15 mg 09/22/18 05:38 09/22/18 06:01 Amidate - IVPUSH 09/22/18 05:39 15 mg NOW ONE Administration Fentanyl 100 mcg 09/22/18 07:20 09/22/18 07:33 Sublimaze Injection - IVPUSH 09/22/18 07:21 100 mcg ONCE ONE Administration Fentanyl 50 mcg 09/22/18 09:01 09/22/18 09:16 Sublimaze Injection - IVPUSH 09/22/18 09:02 50 mcg ONCE ONE Administration Sodium Chloride 1,000 mls @ 1,000 mls/hr 09/22/18 04:00 09/22/18 05:02 Normal Saline - IV 09/22/18 04:59 1,000 mls/hr ASDIR STA Administration Piperacillin Sod/Tazobactam 50 mls @ 100 mls/hr 09/22/18 06:39 09/22/18 09:17 Sod 3.375 gm/ Dextrose IVPB 09/22/18 07:08 100 mls/hr ONCE ONE Administration Protocol Propofol 40,000 mcg 09/22/18 06:26 09/22/18 07:33 Diprivan - IVPUSH 09/22/18 06:27 40,000 mcg ONCE ONE Administration Rocuronium [place] 50 mg 09/22/18 05:38 09/22/18 06:01 Zemuron - IV 09/22/18 05:39 50 mg ONCE ONE Administration Medical Decision Making - Medical Decision Making 09/22/18 10:15 I performed a sterile central line procedure with good draw back from all ports in R IJ. Line at 16cm. CXR ordered to confirm placement. 09/22/18 11:49 I have performed a pigtail catheter in the patient's R chest for PTX, stevenson of air heard. All done in sterile fashion. CXR ordered to confirm placement. *DC/Admit/Observation/Transfer Diagnosis at time of Disposition: Sepsis Qualifiers: Sepsis type: sepsis due to unspecified organism Qualified Code(s): A41.9 - Sepsis, unspecified organism - Referrals - Patient Instructions - Post Discharge Activity Procedures - Central Line Central Line Lumen: triple Central Line Position: internal jugular (R) Anesthesia: 1% Lidocaine Amount of anesthesia (ccs): 2 Complications: none Post Central Line Insertion: sutured, good blood return - Chest Tube Right Ant. Axillary Line 4th ICS Indication: Pneumothorax Anesthesia: 1% Lidocaine Volume(ml): 4 Sterile Draping: Yes Sterile Technique: Yes Stevenson of Air [place]: Yes Vaseline Gauze Dressing: Yes Suction: Yes Curved Clamp: No Tube Sutured to Skin: Yes Complications: No Post Procedure CXR: Yes (pending) Progress: 09/22/18 11:49 Pigtail catheter 14 fr used
--- NOTE | 2018-09-22 10:17 | PDOC ---
*Physical Exam - Vital Signs Last Vital Signs Temp Pulse Resp BP Pulse Ox 99.3 F 78 18 114/70 99 09/22/18 08:25 09/22/18 09:16 09/22/18 09:16 09/22/18 09:16 09/22/18 09:16 - Physical Exam Comments: 09/22/18 10:17 GENERAL: Sedated, microephalic, intubated, upper extremities contracted HEAD: No signs of trauma, microcephalic, atraumatic ENT: oropharynx clear without exudates. Moist mucosa LUNGS: No distress, speaks full sentences, decreased breath sounds on R upper HEART: Regular rate and rhythm, normal S1 and S2, no murmurs, rubs or gallops, peripheral pulses normal and equal bilaterally. ABDOMEN: Soft, nontender, normoactive bowel sounds. No guarding, no rebound. No masses EXTREMITIES : Normal inspection, Normal range of motion, no edema. No clubbing or cyanosis. NEUROLOGICAL: sedated, intubated SKIN: Warm, Dry, normal turgor, no rashes or lesions noted ED Treatment Course - LABORATORY CBC & Chemistry Diagram: 10/10/18 08:05 10/10/18 06:45 - ADDITIONAL ORDERS Additional order review: Laboratory Results 09/22/18 09/22/18 09/22/18 05:47 05:00 04:58 PT with INR INR PTT (Actin FS) Sodium Potassium Chloride Carbon Dioxide Anion Gap BUN Creatinine Creat Clearance w eGFR Random Glucose Lactic Acid 5.2 H* Calcium Total Bilirubin AST ALT Alkaline Phosphatase Troponin I Cancelled Total Protein Albumin Urine Color Le Urine Appearance Cloudy Urine pH 5.0 D Ur Specific [place] 1.025 Urine Protein 2+ H Urine Glucose (UA) 1+ H Urine Ketones Trace H Urine Blood Negative Urine Nitrite Negative Urine Bilirubin Negative Urine Urobilinogen Negative Ur Leukocyte Esterase Negative Urine WBC (Auto) 3 Urine RBC (Auto) 3 Ur Epithelial Cells Rare Hyaline Casts 26 Urine Mucus Rare 09/22/18 09/22/18 04:58 04:58 PT with INR Cancelled INR Cancelled PTT (Actin FS) Cancelled Sodium Cancelled Potassium Cancelled Chloride Cancelled Carbon Dioxide Cancelled Anion Gap Cancelled BUN Cancelled Creatinine Cancelled Creat Clearance w eGFR Cancelled Random Glucose Cancelled Lactic Acid Calcium Cancelled Total Bilirubin Cancelled AST Cancelled ALT Cancelled Alkaline Phosphatase Cancelled Troponin I Total Protein Cancelled Albumin Cancelled Urine Color Urine Appearance Urine pH Ur Specific [place] Urine Protein Urine Glucose (UA) Urine Ketones Urine Blood Urine Nitrite Urine Bilirubin Urine Urobilinogen Ur Leukocyte Esterase Urine WBC (Auto) Urine RBC (Auto) Ur Epithelial Cells Hyaline Casts Urine Mucus 09/22/18 04:58 RBC Cancelled MCV Cancelled MCHC Cancelled RDW Cancelled MPV Cancelled Neutrophils % Cancelled Lymphocytes % Cancelled Monocytes % Cancelled Eosinophils % Cancelled Basophils % Cancelled - RADIOLOGY Radiology Studies Ordered: Category Date Time Status CHEST X-RAY PORTABLE* [RAD] Stat Radiology 09/22/18 10:09 Ordered - Medications Given in the ED: ED Medications Discontinued Medications Generic Name Dose Route Start Last Admin Trade Name Freq PRN Reason Stop Dose Admin Acetaminophen 1,000 mg 09/22/18 04:00 09/22/18 05:02 Ofirmev Injection - IVPB 09/22/18 04:01 1,000 mg ONCE ONE Administration Etomidate 15 mg 09/22/18 05:38 09/22/18 06:01 Amidate - IVPUSH 09/22/18 05:39 15 mg NOW ONE Administration Fentanyl 100 mcg 09/22/18 07:20 09/22/18 07:33 Sublimaze Injection - IVPUSH 09/22/18 07:21 100 mcg ONCE ONE Administration Fentanyl 50 mcg 09/22/18 09:01 09/22/18 09:16 Sublimaze Injection - IVPUSH 09/22/18 09:02 50 mcg ONCE ONE Administration Sodium Chloride 1,000 mls @ 1,000 mls/hr 09/22/18 04:00 09/22/18 05:02 Normal Saline - IV 09/22/18 04:59 1,000 mls/hr ASDIR STA Administration Piperacillin Sod/Tazobactam 50 mls @ 100 mls/hr 09/22/18 06:39 09/22/18 09:17 Sod 3.375 gm/ Dextrose IVPB 09/22/18 07:08 100 mls/hr ONCE ONE Administration Protocol Propofol 40,000 mcg 09/22/18 06:26 09/22/18 07:33 Diprivan - IVPUSH 09/22/18 06:27 40,000 mcg ONCE ONE Administration Rocuronium [place] 50 mg 09/22/18 05:38 09/22/18 06:01 Zemuron - IV 09/22/18 05:39 50 mg ONCE ONE Administration Medical Decision Making - Medical Decision Making 09/22/18 10:13 Patient signed out by resident Dr. Porter. In short this patient comes in from [place] shortness of breath and coughing green mucus, tachycardic, hypotensive, required intubation overnight. Lactic of 5.2 pending labs for admission requiring central line placement. ED Course: Central line placed. Patient admitted to medicine for further workup and evaluation/treatment. Of note wbc of 12 *DC/Admit/Observation/Transfer Diagnosis at time of Disposition: Fever, Tachycardia Sepsis Qualifiers: Sepsis type: sepsis due to unspecified organism Qualified Code(s): A41.9 - Sepsis, unspecified organism - Discharge Dispostion Disposition: RESIDENTIAL FACILITY Condition at time of disposition: Improved - Prescriptions - Referrals - Patient Instructions - Post Discharge Activity
[2018-09-22 11:08] LABS: HEMATOCRIT 38.4 % (35.4-49); HEMOGLOBIN 13.3 GM/dL (11.7-16.9); MCH 29.5 pg (25.7-33.7); MCHC 34.5 g/dl (32.0-35.9); MEAN CELL VOLUME 85.4 fl (80-96); MEAN PLT VOLUME 7.5 fl (7.5-11.1); PLATELET COUNT 307 K/MM3 (134-434); RDW 15.1 % (11.9-15.9)
[2018-09-22 11:29] LABS: INR 1.28 (0.83-1.09); PROTHROMBIN TIME (PATIENT) 15.1 SEC (9.7-13.0)
[2018-09-22 11:32] LABS: ACTIVATED PTT 31.1 SECONDS (25.2-36.5)
[2018-09-22 11:51] LABS: ALBUMIN 3.5 g/dl (3.4-5.0); ALK PHOS 122 U/L (45-117); ANION GAP 10 MMOL/L (8-16); BILIRUBIN,TOTAL 0.4 mg/dL (0.2-1); BLOOD UREA NITROGEN 21 mg/dL (7-18); CALCIUM 7.8 mg/dL (8.5-10.1); CHLORIDE 105 mmol/L (98-107); CO2 25 mmol/L (21-32); CREATININE 0.6 mg/dL (0.55-1.3); GLUCOSE,RANDOM 113 mg/dL (74-106); MAGNESIUM 2.5 mg/dL (1.8-2.4); POTASSIUM 3.3 mmol/L (3.5-5.1); SGOT/AST 26 U/L (15-37); SGPT/ALT 31 U/L (13-61); SODIUM 140 mmol/L (136-145); TOT PROT 7.8 g/dl (6.4-8.2)
--- NOTE | 2018-09-22 12:21 | EKG ---
Test Reason : Blood Pressure : / mmHG Vent. Rate : 089 BPM Atrial Rate : 089 BPM P-R Int : 146 ms QRS Dur : 100 ms QT Int : 360 ms P-R-T Axes : 038 090 084 degrees QTc Int : 438 ms NORMAL SINUS RHYTHM RIGHTWARD AXIS INFERIOR-POSTERIOR INFARCT (CITED ON OR BEFORE 19-JAN-2015) ABNORMAL ECG WHEN COMPARED WITH ECG OF 11-AUG-2018 17:21, ST NO LONGER DEPRESSED IN ANTERIOR LEADS Confirmed by GIO FISCHER MD ([id number]) on 09/22/2018 12:20:39 PM Referred By: Confirmed By:GIO FISCHER MD
--- NOTE | 2018-09-22 13:30 | HP ---
CHIEF COMPLAINT: shortness of breath PCP: Stiven Moss HISTORY OF PRESENT ILLNESS: Patient is a 28 year old male with a significant past medical history of profound mental retardation, cerebral palsy, dysphagia, peg tube, seizures, hyponatremia and asthma. Patient is a resident at [facility]. He has had multiple admissions to [facility] for aspiration pneumonia. He comes in to the ED for shortness of breath and coughing up green mucus. In the ED he was noted to be with tachycardia and hypotension. He was intubated to protect his airway after noted to be in acute respiratory distress. A central line was placed. Patient then developed a pneumothorax per chest xray and a pig tail connected to chest tube was placed. Labs revealed lactic acid of 5.2, wbc 12, K. 3.3, ck 966 and trop 0.02. per COMPUTERIZED MACHINE [employer] C[employer]TER, who was at bedside. Patient was well yesterday and participated in activities. He was brought in when he was noted to be having shortness of breath with more fatigue. ER course was notable for: (1) right sided chest tube placement (2) intubation, fentanyl (3) lactic acid 5.2, wbc 12, k. 3.3, ck 966, trop 0.02, trop 0.02 Social History: Smoking: none Alcohol: none Drugs: none Family History: Allergies Beef Containing Products Allergy (Unknown, Verified 09/22/18 04:04) erythromycin base Allergy (Verified 09/22/18 04:04 phenobarbital Allergy (Verified 09/22/18 04:04) venom-honey bee [bee venom (honey bee)] Allergy (Verified 09/22/18 04:04) HOME MEDICATIONS: Home Medications Medication Instructions Recorded levETIRAcetam [Keppra Oral 1,500 mg GT BID 01/19/15 Solution -] Aspirin [ASA -] 81 mg GT HS 03/17/18 Carbamazepine [Tegretol -] 280 mg GT BID 03/17/18 Cholecalciferol (Vitamin D3) 2,000 unit GT DAILY 03/17/18 [Vitamin D3] Omeprazole Magnesium [Prilosec] 20 mg GT DAILY 03/17/18 Tamsulosin HCl [Flomax -] 0.4 mg GT DAILY 03/17/18 cloNIDine HCL [Catapres -] 0.2 mg PO HS 03/17/18 clonazePAM [KlonoPIN -] 1 mg GT TID 03/17/18 Baclofen [Lioresal -] 10 mg PO DAILY@0600,1200 tablet 03/21/18 Baclofen [Lioresal -] 20 mg GT DAILY@1800,0000 tablet 03/21/18 Budesonide [Pulmicort 0.5 mg 1 neb NEB BID 07/12/18 Nebulizer -] Diazepam [Diastat Acudial] 20 mg RC PRN PRN 07/12/18 Ipratropium/Albuterol Sulfate 3 ml IH QID PRN 07/12/18 [Iprat-Albut 0.5-3(2.5) mg/3 ml] Nystatin Ointment [Mycostatin 1 applic TP BID 07/12/18 Ointment -] Triamcinolone 0.1% Cream 1 applic TP BID 07/12/18 [Aristocort 0.1% Cream -] Albuterol 2.5/Ipratropium 0.5 1 amp NEB RQ4H amp 07/18/18 [Duoneb -] Scopolamine Hydrobromide 1 patch TD Q72H #10 patch.td72 07/18/18 [Transderm-Scop -] Lactose-Reduced Food/Fiber [Jevity 100 ml GT DAILY 08/11/18 1.5 Hermes Liquid] Mupirocin Ointment [Bactroban] 1 applic TP TID 08/11/18 REVIEW OF SYSTEMS patient is intubated, and non verbal at baseline. PHYSICAL EXAMINATION Vital Signs - 24 hr 09/22/18 09/22/18 09/22/18 03:57 05:15 05:40 Temperature 101.7 F H 101.7 F H Pulse Rate 140 H 132 H Pulse Rate [ Left Radial] Respiratory 20 14 Rate Blood Pressure 96/63 Blood Pressure [Right Arm] O2 Sat by Pulse 95 100 Oximetry (%) 09/22/18 09/22/18 09/22/18 07:16 07:26 07:55 Temperature Pulse Rate Pulse Rate [ 92 H 96 H Left Radial] Respiratory 20 19 18 Rate Blood Pressure Blood Pressure 94/61 100/63 [Right Arm] O2 Sat by Pulse 98 99 Oximetry (%) 09/22/18 09/22/18 09/22/18 08:25 09:16 10:03 Temperature 99.3 F Pulse Rate Pulse Rate [ 102 H 78 Left Radial] Respiratory 18 18 20 Rate Blood Pressure Blood Pressure 123/78 114/70 [Right Arm] O2 Sat by Pulse 99 99 Oximetry (%) 09/22/18 09/22/18 09/22/18 10:29 10:59 12:26 Temperature Pulse Rate Pulse Rate [ 83 95 H 85 Left Radial] Respiratory 20 20 20 Rate Blood Pressure Blood Pressure 108/79 116/90 99/70 [Right Arm] O2 Sat by Pulse 99 99 100 Oximetry (%) 09/22/18 09/22/18 13:07 13:29 Temperature Pulse Rate Pulse Rate [ 85 Left Radial] Respiratory 20 21 H Rate Blood Pressure Blood Pressure 99/70 [Right Arm] O2 Sat by Pulse 100 Oximetry (%) GENERAL: intubated, sedated HEAD: Normal with no signs of trauma. EYES: Pupils equal, round and reactive to light EARS, NOSE, THROAT: Ears normal, nares patent, oropharynx clear without exudates. Moist mucous membranes. NECK: Normal range of motion, supple without lymphadenopathy, JVD, or masses. LUNGS: clear to auscultation bilaterally HEART: tachycardia 90s ABDOMEN: Soft, nontender, not distended, + g/j tube MUSCULOSKELETAL: contracted on all extremities UPPER EXTREMITIES: No peripheral edema. LOWER EXTREMITIES: No peripheral edema. NEUROLOGICAL: non verbal at baseline PSYCHIATRIC: calm SKIN: abrasions noted on left upper chest, no skin breakdown. Laboratory Results - last 24 hr 09/22/18 09/22/18 09/22/18 04:58 04:58 04:58 WBC Cancelled Corrected WBC (auto) Cancelled RBC Cancelled Hgb Cancelled Hct Cancelled MCV Cancelled MCH Cancelled MCHC Cancelled RDW Cancelled Plt Count Cancelled MPV Cancelled Absolute Neuts (auto) Cancelled Neutrophils % Cancelled Lymphocytes % Cancelled Monocytes % Cancelled Eosinophils % Cancelled Basophils % Cancelled Nucleated RBC % Cancelled Platelet Estimate Cancelled Platelet Comment Cancelled PT with INR Cancelled INR Cancelled PTT (Actin FS) Cancelled Sodium Cancelled Potassium Cancelled Chloride Cancelled Carbon Dioxide Cancelled Anion Gap Cancelled BUN Cancelled Creatinine Cancelled Creat Clearance w eGFR Cancelled Random Glucose Cancelled Lactic Acid Calcium Cancelled Magnesium Total Bilirubin Cancelled AST Cancelled ALT Cancelled Alkaline Phosphatase Cancelled Creatine Kinase Creatine Kinase Index CK-MB (CK-2) Troponin I Total Protein Cancelled Albumin Cancelled Urine Color Urine Appearance Urine pH Ur Specific Given Urine Protein Urine Glucose (UA) Urine Ketones Urine Blood Urine Nitrite Urine Bilirubin Urine Urobilinogen Ur Leukocyte Esterase Urine WBC (Auto) Urine RBC (Auto) Ur Epithelial Cells Hyaline Casts Urine Mucus HIV 1&2 Antibody Screen HIV P24 Antigen Influenza A (Rapid) Influenza B (Rapid) 09/22/18 09/22/18 09/22/18 04:58 05:00 05:47 WBC Corrected WBC (auto) RBC Hgb Hct MCV MCH MCHC RDW Plt Count MPV Absolute Neuts (auto) Neutrophils % Lymphocytes % Monocytes % Eosinophils % Basophils % Nucleated RBC % Platelet Estimate Platelet Comment PT with INR INR PTT (Actin FS) Sodium Potassium Chloride Carbon Dioxide Anion Gap BUN Creatinine Creat Clearance w eGFR Random Glucose Lactic Acid 5.2 H* Calcium Magnesium Total Bilirubin AST ALT Alkaline Phosphatase Creatine Kinase Creatine Kinase Index CK-MB (CK-2) Troponin I Cancelled Total Protein Albumin Urine Color Le Urine Appearance Cloudy Urine pH 5.0 D Ur Specific Given 1.025 Urine Protein 2+ H Urine Glucose (UA) 1+ H Urine Ketones Trace H Urine Blood Negative Urine Nitrite Negative Urine Bilirubin Negative Urine Urobilinogen Negative Ur Leukocyte Esterase Negative Urine WBC (Auto) 3 Urine RBC (Auto) 3 Ur Epithelial Cells Rare Hyaline Casts 26 Urine Mucus Rare HIV 1&2 Antibody Screen HIV P24 Antigen Influenza A (Rapid) Influenza B (Rapid) 09/22/18 09/22/18 09/22/18 07:58 09:03 10:47 WBC Corrected WBC (auto) RBC Hgb Hct MCV MCH MCHC RDW Plt Count MPV Absolute Neuts (auto) Neutrophils % Lymphocytes % Monocytes % Eosinophils % Basophils % Nucleated RBC % Platelet Estimate Platelet Comment PT with INR INR PTT (Actin FS) Sodium Potassium Chloride Carbon Dioxide Anion Gap BUN Creatinine Creat Clearance w eGFR Random Glucose Lactic Acid 1.0 Calcium Magnesium Total Bilirubin AST ALT Alkaline Phosphatase Creatine Kinase Creatine Kinase Index CK-MB (CK-2) Troponin I Total Protein Albumin Urine Color Urine Appearance Urine pH Ur Specific Given Urine Protein Urine Glucose (UA) Urine Ketones Urine Blood Urine Nitrite Urine Bilirubin Urine Urobilinogen Ur Leukocyte Esterase Urine WBC (Auto) Urine RBC (Auto) Ur Epithelial Cells Hyaline Casts Urine Mucus HIV 1&2 Antibody Screen Negative HIV P24 Antigen Negative Influenza A (Rapid) Negative Influenza B (Rapid) Negative 01/09/22/18 09/22/18 10:47 10:47 10:47 WBC 12.0 H Corrected WBC (auto) RBC 4.50 Hgb 13.3 Hct 38.4 MCV 85.4 MCH 29.5 MCHC 34.5 RDW 15.1 Plt Count 307 MPV 7.5 Absolute Neuts (auto) Neutrophils % Lymphocytes % Monocytes % Eosinophils % Basophils % Nucleated RBC % Platelet Estimate Platelet Comment PT with INR 15.10 H INR 1.28 H PTT (Actin FS) 31.1 Sodium 140 Potassium 3.3 L Chloride 105 Carbon Dioxide 25 Anion Gap 10 BUN 21 H Creatinine 0.6 Creat Clearance w eGFR > 60 Random Glucose 113 H Lactic Acid Calcium 7.8 L Magnesium 2.5 H Total Bilirubin 0.4 AST 26 ALT 31 Alkaline Phosphatase 122 H Creatine Kinase 966 H Creatine Kinase Index 0.7 CK-MB (CK-2) 7.6 H Troponin I 0.02 Total Protein 7.8 Albumin 3.5 Urine Color Urine Appearance Urine pH Ur Specific Given Urine Protein Urine Glucose (UA) Urine Ketones Urine Blood Urine Nitrite Urine Bilirubin Urine Urobilinogen Ur Leukocyte Esterase Urine WBC (Auto) Urine RBC (Auto) Ur Epithelial Cells Hyaline Casts Urine Mucus HIV 1&2 Antibody Screen HIV P24 Antigen Influenza A (Rapid) Influenza B (Rapid) ASSESSMENT/PLAN: Patient is a 28 year old male with a significant past medical history of profound mental retardation, cerebral palsy, dysphagia, peg tube, seizures, hyponatremia and asthma. Patient is a resident at [facility]. He has had multiple admissions to [facility] for aspiration pneumonia. He comes in to the ED for shortness of breath and coughing up green mucus. In the ED he was noted to be with tachycardia and hypotension. He was intubated to protect his airway after noted to be in acute respiratory distress. A central line was placed. Patient then developed a pneumothorax per chest xray and a pig tail connected to chest tube was placed. Labs revealed lactic acid of 5.2, wbc 12, K. 3.3, ck 966 and trop 0.02. per COMPUTERIZED MACHINE [employer]TER, who was at bedside. Patient was well yesterday and participated in activities. He was brought in when he was noted to be having shortness of breath with more fatigue. problem list ------- profound mental retardation microcephaly dysphagia, peg tube dependent seizures hyponatremia asthma aspiration pneumonia respiratory distress acute bronchitis rhabdo ------ ID: Severe Sepsis/unclear etiology, likely secondary to aspiration pnemonia, vs cap vs. acute bronchitis Patient presents in respiratory distress, desats with NRB mask. Intubated to protect airway. on a/c mode Patient has a patent g/j tube. On scopalamine patch for increased secretions. Given Zosyn and Vancomycin Blood cultures pending Lactic acid elevated, will continue to trend will order -influenza swab -rsv swab -repeat lactic Pulm: Right pneumothrax. Chest tube placed in the ED. Monitor chest xrays for resolution Neuro: Seizure history. On keppra, tegretol, baclophen. No reported seizures Renal rhabdo. presents with elevated cpk On ivf. bun/creat normal limits Card: Rule out ACS Trend troponins Tachycardia, in the setting of sepsis Neuro: Seizures, history Seizures on previous admissions. On keppra, tegretol, baclophen. Renal rhabdo, resolving. CPK 2300>600 with normal bun/creat gently hydrate and repeat cpk in a.m. Functional Quadraplegia. He is a total care, and requires q2 position changes to prevent skin breakdown. fen NS @ 50/cchr monitor electrolytes hold feeds disposition. full code. Visit type - Emergency Visit Emergency Visit: Yes ED Registration Date: 09/22/18 Care time: The patient presented to the Emergency Department on the above date and was hospitalized for further evaluation of their emergent condition. - New Patient This patient is new to me today: Yes Date on this admission: 09/22/18 - Critical Care Critical Care patient: Yes Total Critical Care Time (in minutes): 60 Critical Care Statement: The care of this patient involved high complexity decision making to prevent further life threatening deterioration of the patient 's condition and/or to evaluate & treat vital organ system(s) failure or risk of failure.
--- NOTE | 2018-09-22 13:46 | PN ---
Teaching Attending Note Name of Resident: Rosemarie Marshall ATTENDING PHYSICIAN STATEMENT I saw and evaluated the patient. I reviewed the resident's note and discussed the case with the resident. I agree with the resident's findings and plan as documented. SUBJECTIVE: Pt seen and examined in the ICU. Briefly, 28yo male with h/o severe mental retardation, cerebral palsy, seizure disorder, asthma who was transferred from [place] for shortness of breath, fevers. Noted to be febrile to 101.7, hypotensive, tachypneic subsequently intubated, responded to IVF resuscitation. Found to have a right sided pneumothorax in the ER, now s/p right sided pigtail catheter placement. Pt unable to provide further history at this time. OBJECTIVE: Vital Signs Period Temp Pulse Resp BP Sys/Don Pulse Ox Last 24 Hr 99.3 F-101.7 F 78-140 14-21 94-123/61-90 95-100 Intake & Output 09/19/18 09/20/18 09/21/18 09/22/18 23:59 23:59 23:59 23:59 Intake Total 1300 Output Total 250 Balance 1050 Weight 45.359 kg Gen: intubated, sedated Heart: tachycardic, regular Lung: scattered rhonchi Abd: soft, nontender Ext: contracted, no edema CBC, BMP 09/22/18 10:47 09/22/18 10:47 Active Medications Fentanyl 500 mcg/ Dextrose 100 mls @ 10 mls/hr IVPB TITR ALEKSANDR Last Admin: 09/22/18 07:33 Dose: 50 mcg/hr, 10 mls/hr ASSESSMENT AND PLAN: Acute Respiratory Failure r/o Pneumonia Severe Sepsis Lactic Acidosis +Troponins likely Demand Ischemia Mental Retardation/Cerebral Palsy Seizure Disorder Asthma Functional Quadriplegia - broad spectrum IV antibiotics - f/u cultures - IVF - monitor urine output, creatinine - replete lytes - continue home meds - check ABG - hold sedation in AM - spontaneous breathing trials as tolerated - enteral feeds - DVT/GI prophylaxis - ICU monitoring critical care time spent in reviewing chart, evaluating patient and formulating plan 35 min
[2018-09-22] MEDS ORDERED: fentaNYL CITRATE 250 MCG/5 ML VIAL ONE (14:10)
[2018-09-22] MEDS ORDERED: DEXTROSE 5%-WATER 100 ML IVPB ONE ×2 (14:11→21:17)
[2018-09-22] MEDS ORDERED: PIPERACILLIN/TAZOBACTAM 4.5 GM VIAL IVPB ONE ×2 (14:11→21:17)
[2018-09-22] MEDS: PIPERACILLIN/TAZOB 4.5 GM 4.5 GM in DEXTROSE 5%-WATER 100 ML IVPB SCH ×2 (14:18→21:35)
[2018-09-22] MEDS ORDERED: SODIUM CHLORIDE 1,000 ML IV SCH (14:30)
[2018-09-22] MEDS ORDERED: CALCIUM CHLORIDE 10% 1 GM/10 ML *VIAL IVPB ONE (16:01)
[2018-09-22] MEDS: PANTOPRAZOLE SODIUM 40 MG VIAL IVPUSH SCH (16:12)
[2018-09-22] MEDS: SCOPOLAMINE HYDROBROMIDE 1 PATCH PATCH.TD72 TD SCH (16:12)
--- NOTE | 2018-09-22 16:20 | CONSULT ---
Consult - History of Present Illness History of Present Illness: 28yo M with PMH of MR, CP, Spastic quadriparesis, intractable seizures, cortical blindness, asthma presenting with respiratory distress and fever. He has had a cough with green mucus. He has had prior admissions for aspiration pneumonia, most recently from June 2018. Patient is nonverbal at baseline and unable to provide history. Due to increased work of breathing, patient intubated while in the ED. Subclavian central line placed. CXR found to have right sided pneumothorax for which pigtail chest tube was placed. (Per chart) PMH: As above PSH: GJ tube Social Hx: [facility] resident - Past Medical History POCKET CUTTER: Yes: Seizure, Other (CP?MR) Pulmonary: Yes: Asthma Musculoskeletal: Yes: Other (scoliosis) - Alcohol/Substance Use Hx Alcohol Use: No History of Substance Use: reports: None - Smoking History Smoking history: Never smoked Have you smoked in the past 12 months: No Aproximately how many cigarettes per day: 0 - Social History Usual Living Arrangement: [facility] ADL: Support Services History of Recent Travel: No Home Medications - Allergies Allergies/Adverse Reactions: Allergies Allergy/AdvReac Type Severity Reaction Status Date / Time Beef Containing Products Allergy Unknown Verified 09/22/18 04:04 erythromycin base Allergy Verified 09/22/18 04:04 phenobarbital Allergy Verified 09/22/18 04:04 venom-honey bee Allergy Verified 09/22/18 04:04 [bee venom (honey bee)] - Home Medications Home Medications: Ambulatory Orders levETIRAcetam [Keppra Oral Solution -] 1,500 mg GT BID 01/19/15 Aspirin [ASA -] 81 mg GT HS 03/17/18 Carbamazepine [Tegretol -] 280 mg GT BID 03/17/18 Cholecalciferol (Vitamin D3) [Vitamin D3] 2,000 unit GT DAILY 03/17/18 Omeprazole Magnesium [Prilosec] 20 mg GT DAILY 03/17/18 Tamsulosin HCl [Flomax -] 0.4 mg GT DAILY 03/17/18 cloNIDine HCL [Catapres -] 0.2 mg PO HS 03/17/18 clonazePAM [KlonoPIN -] 1 mg GT TID 03/17/18 Baclofen [Lioresal -] 10 mg PO DAILY@0600,1200 tablet 03/21/18 Baclofen [Lioresal -] 20 mg GT DAILY@1800,0000 tablet 03/21/18 Budesonide [Pulmicort 0.5 mg Nebulizer -] 1 neb NEB BID 07/12/18 Diazepam [Diastat Acudial] 20 mg RC PRN PRN 07/12/18 Ipratropium/Albuterol Sulfate [Iprat-Albut 0.5-3(2.5) mg/3 ml] 3 ml IH QID PRN 07/12/18 Nystatin Ointment [Mycostatin Ointment -] 1 applic TP BID 07/12/18 Triamcinolone 0.1% Cream [Aristocort 0.1% Cream -] 1 applic TP BID 07/12/18 Albuterol 2.5/Ipratropium 0.5 [Duoneb -] 1 amp NEB RQ4H amp 07/18/18 Scopolamine Hydrobromide [Transderm-Scop -] 1 patch TD Q72H #10 patch.td72 07/18 Lactose-Reduced Food/Fiber [Jevity 1.5 Hermes Liquid] 100 ml GT DAILY 08/11/18 Mupirocin Ointment [Bactroban] 1 applic TP TID 08/11/18 Review of Systems Unable to obtain ROS, reason: pt nonverbal; intubated Physical Exam Vital Signs: Vital Signs Temperature 98 F 09/22/18 13:55 Pulse Rate 84 09/22/18 14:23 Respiratory Rate 16 09/22/18 14:23 Blood Pressure 131/82 09/22/18 14:23 O2 Sat by Pulse Oximetry (%) 100 09/22/18 14:00 General: Intubated and sedated Head: No signs of trauma Eyes: EOMI, sclera anicteric ENT: Moist mucus membranes Neck: Normal ROM, supple Lungs: Scattered rhonchi Cardio: Regular rhythm, S1 and S2 present Abdomen: Soft, nontender Extremities: Distal pulses present SKIN: Warm, Dry, normal turgor Neurologic: Sedated, upper extremities contracted Labs: CBC, BMP 09/22/18 10:47 09/22/18 10:47 Imaging - Results Chest X-ray: Report Reviewed Assessment/Plan ASSESSMENT 28yo M with PMH of MR, CP, Spastic quadriparesis, intractable seizures, cortical blindness, asthma presenting with respiratory distress and fever. Due to increased work of breathing, patient intubated while in the ED. Subclavian central line placed. CXR found to have right sided pneumothorax for which pigtail chest tube was placed. PLAN NEURO Chronic MR, CP, Spastic quadriparesis, intractable seizures, cortical blindness -Continue home meds -Sedated for patient comfort and vent synchrony PULM Respiratory distress likely due to aspiration pneumonia -Covered with Vanc/Zosyn -Intubated -Settings: Rate 14/ TV 300/ PEEP 5/ FiO2 40 (from 60) Pneumothorax -Pigtail chest tube placed -on suction now, consider transitioning to water seal tomorrow -CXR for tomorrow AM CV Tpn negative EKG: rate 89, QTc 438, NSR, when compared with ECG of 08/11/18, ST no longer depressed in anterior leads RENAL Acute Kidney Injury -BUN/Cr 92/3.4 (from 16/1.1) -Follow BMP ID Severe sepsis, likely due to aspiration pneumonia -given Vanc/Zosyn in the ED -consult for ID -lactate of 5.2 decreased to 1.0 -Follow blood cultures -Follow urine cultures -HIV, influenza negative. HCV pending RENAL Rhabdomyolysis, resolving -CPK 2300>600 with normal BUN/Cr -Gently hydrate and repeat CPK in AM FEN Monitor electrolytes -Replete as needed -K low at 3.1 today, repleted -Ca low at 7.8, repleted NS 50cc/hr NPO PPX -VTE: Heparin -GI: Protonix 40 #DISPO: Continue to monitor in the ICU
[2018-09-22] MEDS ORDERED: CALCIUM CHLORIDE 1 GM/10 ML *DISP.SYRIN ONE (16:29)
[2018-09-22] MEDS: BACLOFEN 10 MG TABLET (FP) GT SCH (17:12)
[2018-09-22] MEDS ORDERED: PT OWN MED DRAWER 7, Y5N ONE ×2 (17:14→21:16)
[2018-09-22] MEDS ORDERED: POTASSIUM CHLORIDE 20 MEQ PREMIX IVPB 100 ML IVPB ONE (17:15)
[2018-09-22] MEDS: HEPARIN NA (PORCINE) 5,000 UNITS/ML 1ML VIAL SQ SCH (21:31)
[2018-09-22] MEDS: ASPIRIN 81 MG CHEWABLE TABLETS GT SCH (21:31)
[2018-09-22] MEDS: cloNIDine HCL 0.1 MG TABLET PO SCH (21:33)
[2018-09-22] MEDS: clonazePAM 0.5 MG TABLET GT SCH (21:33)
[2018-09-22] MEDS: CHLORHEXIDINE GLUCONATE 4% CLEANSER FOR DECOLONIZATION TP SCH (21:35)
[2018-09-22] MEDS: VANCOMYCIN 750 MG in DEXTROSE 5%-WATER - 250 ML IVPB SCH (21:39)
[2018-09-22] MEDS: MUPIROCIN 2% TOPICAL OINTMENT FOR DECOLONIZATION NS SCH (21:39)
[2018-09-22] MEDS ORDERED: carBAMazepine 100 MG TAB.CHEW GT SCH (22:00)
[2018-09-22] MEDS: levETIRAcetam 500 MG/5 ML ORAL SOLUTION (UNIT-DOSE CUPS) GT SCH (22:07)
[2018-09-22] MEDS: carBAMazepine 200 MG/10 ML UNIT-DOSE CUP PO SCH (22:07)
--- NOTE | 2018-09-22 23:25 | PN ---
Progress Note (short form) - Note Progress Note: ID CONSULT DICTATED R/O HCAP SEPSIS R/O SEPTIC SHOCK RESP FAILURE FEVER/LEUKOCYTOSIS PNEUMOTHORAX LACTIC ACIDOSIS PENDING SEPSIS WORKUP, EMPIRIC ZOSYN/VANCOMYCIN
[2018-09-23] MEDS: BACLOFEN 10 MG TABLET (FP) GT SCH ×4 (00:39→19:26)
[2018-09-23] MEDS ORDERED: PIPERACILLIN/TAZOBACTAM 3.375 GM VIAL IVPB ONE ×2 (01:17→09:44)
[2018-09-23] MEDS ORDERED: DEXTROSE 5%-WATER - 50 ML IVPB ONE ×2 (01:18→09:45)
[2018-09-23] MEDS: PIPERACILLIN/TAZOB 3.375 GM 3.375 GM in DEXTROSE 5%-WATER - 50 ML IVPB SCH ×3 (01:30→11:19)
[2018-09-23] MEDS ORDERED: fentaNYL CITRATE 250 MCG/5 ML VIAL ONE ×3 (02:57→14:39)
[2018-09-23] MEDS: FENTANYL INJECTION 500 MCG in DEXTROSE 5%-WATER - 90 ML IVPB SCH ×2 (03:35→14:44)
[2018-09-23] MEDS ORDERED: PT OWN MED DRAWER 7, Y5N ONE ×5 (05:30→22:31)
[2018-09-23] MEDS: clonazePAM 0.5 MG TABLET GT SCH ×3 (05:30→22:33)
--- NOTE | 2018-09-23 07:10 | CONS ---
DATE OF CONSULTATION: DATE OF DICTATION: 09/23/2018 HISTORY OF PRESENT ILLNESS: The patient is a 28-year-old male, a resident of [facility], who was admitted to the hospital on September 22, 2018, after a 1-day history of increasing shortness of breath, green sputum production, and fever. He was noted to be tachycardic and hypotensive. He was transferred to [facility] ER where he required intubation. Chest x-ray showed elevated right hemidiaphragm, but no evidence of pneumonia. His clinical course was complicated by hypotension, lactic acidosis. He was empirically treated with vancomycin and Zosyn. He developed iatrogenic pneumothorax and is status post chest tube insertion. At the present time, he is awake, he is in no acute respiratory distress. Patient suffers from profound mental retardation. He is unable to offer any additional details. PAST MEDICAL HISTORY: Positive for cerebral palsy, mental retardation, seizure disorder, history of recurrent aspiration pneumonia. ALLERGIES: To ERYTHROMYCIN, PHENOBARBITAL. SOCIAL HISTORY: He is a resident of a group home facility, totally dependent in activities of daily living, a nonsmoker/nondrinker. SYSTEMS REVIEW: Neurologic: Positive for profound mental retardation, cerebral palsy. No seizure activity or focal weakness. Cardiac: Negative for chest pain or palpitations. Respiratory: As per HPI. Gastrointestinal: Negative for vomiting or diarrhea. Genitourinary: Negative for urinary tract infection. LABORATORY DATA: White count 12.0, hematocrit 38.4, platelet count 307. Creatinine 0.6. Urinalysis 3 white cells. Influenza swab negative. Rapid HIV test negative. Blood and sputum cultures pending. Urine legionella and pneumococcal antigens negative. PHYSICAL EXAMINATION: General: He is not verbally responsive on mechanical ventilation. Vital signs: Temperature 98, blood pressure 127/78, pulse 102 and regular, respirations 21 per minute. HEENT: Sclerae anicteric. Heart: Heart sounds S1, S2. Lungs: Air entry bilaterally. Abdomen: Soft and nontender. Extremities: Negative for edema. Chest tube is in place. IMPRESSION: 1. Acute respiratory failure. 2. Possible aspiration pneumonia. 3. Fever, leukocytosis, probable sepsis secondary to aspiration. 4. Pneumothorax. 5. Lactic acidosis. Await culture results, empiric antibiotic coverage with Zosyn plus stat dose vancomycin, continue ventilatory and hemodynamic support, await culture results. Will follow. Thank you for the kind referral. SUNITA DALAL M.D. OMARI/[id number]
[2018-09-23 07:11] LABS: BASO % 0.6 % (0-2.0); EOS % 1.2 % (0-4.5); HEMATOCRIT 33.3 % (35.4-49); HEMOGLOBIN 11.5 GM/dL (11.7-16.9); LYMPH % 14.6 % (8-40); MCHC 34.5 g/dl (32.0-35.9); MEAN CELL VOLUME 87.1 fl (80-96); MEAN PLT VOLUME 8.1 fl (7.5-11.1); MONO % 11.2 % (3.8-10.2); NEUT % 72.4 % (42.8-82.8); PLATELET COUNT 253 K/MM3 (134-434); RBC 3.83 M/mm3 (4.00-5.60); RDW 14.5 % (11.9-15.9); WHITE BLOOD COUNT 10.6 K/mm3 (4.0-10.0)
[2018-09-23 07:29] LABS: ALK PHOS 99 U/L (45-117); ANION GAP 8 MMOL/L (8-16); BILIRUBIN,TOTAL 0.8 mg/dL (0.2-1); BLOOD UREA NITROGEN 15 mg/dL (7-18); CALCIUM 7.8 mg/dL (8.5-10.1); CHLORIDE 103 mmol/L (98-107); CO2 25 mmol/L (21-32); CREATININE 0.4 mg/dL (0.55-1.3); GLUCOSE,RANDOM 101 mg/dL (74-106); MAGNESIUM 1.9 mg/dL (1.8-2.4); PHOSPHOROUS 3.6 mg/dL (2.5-4.9); POTASSIUM 3.7 mmol/L (3.5-5.1); SGOT/AST 23 U/L (15-37); SGPT/ALT 26 U/L (13-61); SODIUM 136 mmol/L (136-145); TOT PROT 6.8 g/dl (6.4-8.2)
[2018-09-23 08:33] LABS: ARTERIAL BLD GAS O2 SATURATION 99.4 % (90-98.9); ARTERIAL BLOOD GAS BASE EXCESS 0.2 meq/l (-2-2); ARTERIAL BLOOD GAS PCO2 36.2 mmHg (35-45); ARTERIAL BLOOD GAS pH 7.43 (7.35-7.45)
[2018-09-23 08:40] LABS: ALLENS TEST POSITIVE
[2018-09-23 08:48] LABS: INR 1.4 (0.83-1.09); PROTHROMBIN TIME (PATIENT) 16.6 SEC (9.7-13.0)
[2018-09-23] MEDS ORDERED: CALCIUM GLUCONATE 10% - 1,000 MG/10 ML VIAL IVPB ONE (08:55)
--- NOTE | 2018-09-23 09:40 | PN ---
Physical Exam: SUBJECTIVE: Patient seen and examined in the icu. non verbal at baseline. OBJECTIVE: remains intubated awake, alert chest tube with <5cc sero sang output Vital Signs Period Temp Pulse Resp BP Sys/Don Pulse Ox Last 24 Hr 97.6 F-98.1 F 72-102 14-22 99-140/65-90 99-100 GENERAL: intubated, awake HEAD: Normal with no signs of trauma. EYES: Pupils equal, round and reactive to light EARS, NOSE, THROAT: Ears normal, nares patent, oropharynx clear without exudates. Moist mucous membranes. NECK: Normal range of motion, supple without lymphadenopathy, JVD, or masses. LUNGS: clear to auscultation anteriorly/bilaterally HEART: tachycardia 90s ABDOMEN: Soft, nontender, not distended, + g/j tube MUSCULOSKELETAL: contracted on all extremities UPPER EXTREMITIES: No peripheral edema. LOWER EXTREMITIES: No peripheral edema. NEUROLOGICAL: non verbal at baseline PSYCHIATRIC: calm SKIN: abrasions noted on left upper chest, no skin breakdown. Laboratory Results - last 24 hr 09/22/18 09/22/18 09/22/18 07:58 09:03 10:47 WBC RBC Hgb Hct MCV MCH MCHC RDW Plt Count MPV Absolute Neuts (auto) Neutrophils % Lymphocytes % Monocytes % Eosinophils % Basophils % Nucleated RBC % PT with INR INR PTT (Actin FS) Puncture Site ABG pH ABG pCO2 at Pt Temp ABG pO2 at Pt Temp ABG HCO3 ABG O2 Sat (Measured) ABG O2 Content ABG Base Excess Richy Test Oxygen Flow Rate Sodium Potassium Chloride Carbon Dioxide Anion Gap BUN Creatinine Creat Clearance w eGFR Random Glucose Lactic Acid 1.0 Calcium Phosphorus Magnesium Total Bilirubin AST ALT Alkaline Phosphatase Creatine Kinase Creatine Kinase Index CK-MB (CK-2) Troponin I Total Protein Albumin HIV 1&2 Antibody Screen Negative HIV P24 Antigen Negative Influenza A (Rapid) Negative Influenza B (Rapid) Negative 09/22/18 09/22/18 09/22/18 10:47 10:47 10:47 WBC 12.0 H RBC 4.50 Hgb 13.3 Hct 38.4 MCV 85.4 MCH 29.5 MCHC 34.5 RDW 15.1 Plt Count 307 MPV 7.5 Absolute Neuts (auto) Neutrophils % Lymphocytes % Monocytes % Eosinophils % Basophils % Nucleated RBC % PT with INR 15.10 H INR 1.28 H PTT (Actin FS) 31.1 Puncture Site ABG pH ABG pCO2 at Pt Temp ABG pO2 at Pt Temp ABG HCO3 ABG O2 Sat (Measured) ABG O2 Content ABG Base Excess Richy Test Oxygen Flow Rate Sodium 140 Potassium 3.3 L Chloride 105 Carbon Dioxide 25 Anion Gap 10 BUN 21 H Creatinine 0.6 Creat Clearance w eGFR > 60 Random Glucose 113 H Lactic Acid Calcium 7.8 L Phosphorus Magnesium 2.5 H Total Bilirubin 0.4 AST 26 ALT 31 Alkaline Phosphatase 122 H Creatine Kinase 966 H Creatine Kinase Index 0.7 CK-MB (CK-2) 7.6 H Troponin I 0.02 Total Protein 7.8 Albumin 3.5 HIV 1&2 Antibody Screen HIV P24 Antigen Influenza A (Rapid) Influenza B (Rapid) 09/22/18 09/23/18 09/23/18 21:00 05:15 05:15 WBC 10.6 H RBC 3.83 L Hgb 11.5 L Hct 33.3 L MCV 87.1 MCH 30.0 MCHC 34.5 RDW 14.5 Plt Count 253 MPV 8.1 Absolute Neuts (auto) 7.7 Neutrophils % 72.4 D Lymphocytes % 14.6 D Monocytes % 11.2 H Eosinophils % 1.2 Basophils % 0.6 Nucleated RBC % 0 PT with INR INR PTT (Actin FS) Puncture Site ABG pH ABG pCO2 at Pt Temp ABG pO2 at Pt Temp ABG HCO3 ABG O2 Sat (Measured) ABG O2 Content ABG Base Excess Richy Test Oxygen Flow Rate Sodium 136 Potassium 3.7 Chloride 103 Carbon Dioxide 25 Anion Gap 8 BUN 15 Creatinine 0.4 L Creat Clearance w eGFR > 60 Random Glucose 101 Lactic Acid Calcium 7.8 L Phosphorus 3.6 Magnesium 1.9 Total Bilirubin 0.8 AST 23 ALT 26 Alkaline Phosphatase 99 Creatine Kinase Creatine Kinase Index CK-MB (CK-2) Troponin I < 0.02 Total Protein 6.8 Albumin 3.0 L HIV 1&2 Antibody Screen HIV P24 Antigen Influenza A (Rapid) Influenza B (Rapid) 09/23/18 09/23/18 09/23/18 05:15 07:50 08:18 WBC RBC Hgb Hct MCV MCH MCHC RDW Plt Count MPV Absolute Neuts (auto) Neutrophils % Lymphocytes % Monocytes % Eosinophils % Basophils % Nucleated RBC % PT with INR 16.60 H INR 1.40 H PTT (Actin FS) Puncture Site No Result Required. ABG pH 7.43 ABG pCO2 at Pt Temp 36.2 ABG pO2 at Pt Temp 143.0 H D ABG HCO3 23.7 ABG O2 Sat (Measured) 99.4 H ABG O2 Content 15.3 ABG Base Excess 0.2 Richy Test Positive Oxygen Flow Rate Yes Sodium Potassium Chloride Carbon Dioxide Anion Gap BUN Creatinine Creat Clearance w eGFR Random Glucose Lactic Acid Calcium Phosphorus Magnesium Total Bilirubin AST ALT Alkaline Phosphatase Creatine Kinase 617 H Creatine Kinase Index 0.5 CK-MB (CK-2) 3.7 H Troponin I Total Protein Albumin HIV 1&2 Antibody Screen HIV P24 Antigen Influenza A (Rapid) Influenza B (Rapid) Active Medications Generic Name Dose Route Start Last Admin Trade Name Freq PRN Reason Stop Dose Admin Aspirin 81 mg 09/22/18 22:00 09/22/18 21:31 Asa - GT 81 mg HS ALEKSANDR Administration Baclofen 10 mg 09/23/18 06:00 09/23/18 05:30 Lioresal - GT 10 mg DAILY@0600,1200 ALEKSANDR Administration Baclofen 20 mg 09/22/18 18:00 09/23/18 00:39 Lioresal - GT 20 mg DAILY@1800,0000 ALEKSANDR Administration Carbamazepine 280 mg 09/22/18 22:00 09/22/18 22:07 Tegretol Oral Suspension - PO 280 mg BID ALEKSANDR Administration Chlorhexidine Gluconate 1 applic 09/22/18 22:00 09/22/18 21:35 Hibiclens For Decolonization - TP 1 applic HS ALEKSANDR Administration Cholecalciferol 2,000 unit 09/23/18 10:00 Vitamin D3 - GT DAILY ALEKSANDR Clonazepam 1 mg 09/22/18 22:00 09/23/18 05:30 Klonopin - GT 1 mg TID ALEKSANDR Administration Clonidine 0.2 mg 09/22/18 22:00 09/22/18 21:33 Catapres - PO 0.2 mg HS ALEKSANDR Administration Heparin Sodium (Porcine) 5,000 unit 09/22/18 22:00 09/22/18 21:31 Heparin - SQ 5,000 unit BID ALEKSANDR Administration Fentanyl 500 mcg/ Dextrose 100 mls @ 10 mls/hr 09/22/18 07:30 09/23/18 03:35 IVPB 50 mcg/hr TITR ALEKSANDR 10 mls/hr Administration 50 MCG/HR Vancomycin HCl 750 mg/ 250 mls @ 166.667 mls/hr 09/22/18 22:00 09/22/18 21:39 Dextrose IVPB 166.667 mls/hr BID@1000,2200 ALEKSANDR Administration Protocol Sodium Chloride 1,000 mls @ 50 mls/hr 09/22/18 14:30 09/22/18 14:29 Normal Saline - IV 09/23/18 14:20 50 mls/hr ASDIR ALEKSANDR Administration Piperacillin Sod/Tazobactam 50 mls @ 100 mls/hr 09/23/18 02:00 09/23/18 01:30 Sod 3.375 gm/ Dextrose IVPB 100 mls/hr Q8H-IV ALEKSANDR Administration Protocol Levetiracetam 1,500 mg 09/22/18 22:00 09/22/18 22:07 Keppra Oral Solution - GT 1,500 mg BID ALEKSANDR Administration Lorazepam 1 mg 09/22/18 14:15 Ativan Injection - IVPUSH Q6H PRN seizures Mupirocin 1 applic 09/22/18 22:00 09/22/18 21:39 Bactroban Ointment (For Decolonization) - NS 09/27/18 21:59 1 applic BID ALEKSANDR Administration Pantoprazole Sodium 40 mg 09/22/18 15:30 09/22/18 16:12 Protonix Iv IVPUSH 40 mg DAILY ALEKSANDR Administration Scopolamine HBr 1 patch 09/22/18 14:15 09/22/18 16:12 Transderm-Scop - TD 1 patch Q72H ALEKSANDR Administration ASSESSMENT/PLAN: Patient is a 28 year old male with a significant past medical history of profound mental retardation, cerebral palsy, dysphagia, peg tube, seizures, hyponatremia and asthma. Patient is a resident at [facility]. He has had multiple admissions to [facility] for aspiration pneumonia. He comes in to the ED for shortness of breath and coughing up green mucus. In the ED he was noted to be with tachycardia and hypotension. He was intubated to protect his airway after noted to be in acute respiratory distress. A central line was placed. Patient then developed a pneumothorax per chest xray and a pig tail connected to chest tube was placed. problem list ------- profound mental retardation microcephaly dysphagia, peg tube dependent seizures hyponatremia asthma aspiration pneumonia respiratory distress acute bronchitis rhabdo pneumothorax ------ ID: Severe Sepsis/unclear etiology, likely secondary to aspiration pnemonia, vs cap vs. acute bronchitis Intubated on admission to protect airway. on a/c mode Patient has a patent g/j tube. On scopalamine patch for increased secretions. Given Zosyn and Vancomycin Blood cultures pending Lactic acid normalized negative for flu rsv swab pending Pulm: Right pneumothrax. Chest tube placed in the ED. Monitor chest xrays for resolution Neuro: Seizure history. On keppra, tegretol, baclophen. No reported seizures Renal rhabdo. presents with elevated cpk, now 617 On ivf. bun/creat normal limits Card: Rule out ACS troponins negative Tachycardia, in the setting of sepsis Neuro: Seizures, history Seizures on previous admissions. On keppra, tegretol, baclophen. Functional Quadraplegia. He is a total care, and requires q2 position changes to prevent skin breakdown. fen NS @ 50/cchr monitor electrolytes jevity feeds on hold disposition. full code. Visit type - Emergency Visit Emergency Visit: Yes ED Registration Date: 09/22/18 Care time: The patient presented to the Emergency Department on the above date and was hospitalized for further evaluation of their emergent condition. - New Patient This patient is new to me today: No - Critical Care Critical Care patient: Yes Total Critical Care Time (in minutes): 45 Critical Care Statement: The care of this patient involved high complexity decision making to prevent further life threatening deterioration of the patient 's condition and/or to evaluate & treat vital organ system(s) failure or risk of failure.
[2018-09-23] MEDS: PANTOPRAZOLE SODIUM 40 MG VIAL IVPUSH SCH (09:48)
[2018-09-23] MEDS: CHOLECALCIFEROL (VITAMIN D3) 1,000 UNIT TABLET (FP) GT SCH (09:49)
[2018-09-23] MEDS: HEPARIN NA (PORCINE) 5,000 UNITS/ML 1ML VIAL SQ SCH ×2 (09:49→22:33)
[2018-09-23] MEDS: VANCOMYCIN 750 MG in DEXTROSE 5%-WATER - 250 ML IVPB SCH ×2 (10:01→22:34)
[2018-09-23] MEDS: MUPIROCIN 2% TOPICAL OINTMENT FOR DECOLONIZATION NS SCH ×2 (10:03→22:33)
--- NOTE | 2018-09-23 11:12 | PN ---
Teaching Attending Note Name of Resident: Rosemarie Marshall ATTENDING PHYSICIAN STATEMENT I saw and evaluated the patient. I reviewed the resident's note and discussed the case with the resident. I agree with the resident's findings and plan as documented. SUBJECTIVE: Patient seen and examined in the ICU. Intubated and sedated. AC Mode of vent, 40% FiO2, PEEP 5. No pressors. Pigtail intact without an air leak. CXR: No PTX / ETT in good position Intake & Output 09/20/18 09/21/18 09/22/18 09/23/18 23:59 23:59 23:59 23:59 Intake Total 2660 470 Output Total 550 300 Balance 2110 170 Weight 104 lb 4.458 oz 104 lb 2 oz Last Vital Signs Temp Pulse Resp BP Pulse Ox 88 F L 88 20 138/73 100 09/23/18 10:00 09/23/18 10:00 09/23/18 10:31 09/23/18 10:00 09/22/18 20:34 Active Medications Aspirin (Asa -) 81 mg GT HS [facility] Last Admin: 09/22/18 21:31 Dose: 81 mg Baclofen (Lioresal -) 10 mg GT DAILY@0600,1200 [facility] Last Admin: 09/23/18 05:30 Dose: 10 mg Baclofen (Lioresal -) 20 mg GT DAILY@1800,0000 [facility] Last Admin: 09/23/18 00:39 Dose: 20 mg Carbamazepine (Tegretol Oral Suspension -) 280 mg PO BID [facility] Last Admin: 09/22/18 22:07 Dose: 280 mg Chlorhexidine Gluconate (Hibiclens For Decolonization -) 1 applic TP [facility] Last Admin: 09/22/18 21:35 Dose: 1 applic Cholecalciferol (Vitamin D3 -) 2,000 unit GT DAILY [facility] Last Admin: 09/23/18 09:49 Dose: 2,000 unit Clonazepam (Klonopin -) 1 mg GT TID [facility] Last Admin: 09/23/18 05:30 Dose: 1 mg Clonidine (Catapres -) 0.2 mg PO HS [facility] Last Admin: 09/22/18 21:33 Dose: 0.2 mg Heparin Sodium (Porcine) (Heparin -) 5,000 unit SQ BID [facility] Last Admin: 09/23/18 09:49 Dose: 5,000 unit Fentanyl 500 mcg/ Dextrose 100 mls @ 10 mls/hr IVPB TITR [facility] Last Admin: 09/23/18 03:35 Dose: 50 mcg/hr, 10 mls/hr Vancomycin HCl 750 mg/ (Dextrose) 250 mls @ 166.667 mls/hr IVPB BID@1000,2200 ALEKSANDR; Protocol Last Admin: 09/23/18 10:01 Dose: 166.667 mls/hr Sodium Chloride (Normal Saline -) 1,000 mls @ 50 mls/hr IV ASDIR [facility] Stop: 09/23/18 14:20 Last Admin: 09/22/18 14:29 Dose: 50 mls/hr Piperacillin Sod/Tazobactam (Sod 3.375 gm/ Dextrose) 50 mls @ 100 mls/hr IVPB Q8H-IV ALEKSANDR; Protocol Last Admin: 09/23/18 01:30 Dose: 100 mls/hr Levetiracetam (Keppra Oral Solution -) 1,500 mg GT BID [facility] Last Admin: 09/22/18 22:07 Dose: 1,500 mg Lorazepam (Ativan Injection -) 1 mg IVPUSH Q6H PRN PRN Reason: seizures Mupirocin (Bactroban Ointment (For Decolonization) -) 1 applic NS BID [facility] Stop: 09/27/18 21:59 Last Admin: 09/23/18 10:03 Dose: 1 applic Pantoprazole Sodium (Protonix Iv) 40 mg IVPUSH DAILY [facility] Last Admin: 09/23/18 09:48 Dose: 40 mg Scopolamine HBr (Transderm-Scop -) 1 patch TD Q72H [facility] Last Admin: 09/22/18 16:12 Dose: 1 patch OBJECTIVE: Gen: intubated, sedated Heart: tachycardic, regular Lung: scattered rhonchi, right pigtail catheter intact W/O an air leak Abd: soft, nontender Ext: contracted, no edema Laboratory Results - last 24 hr 09/22/18 09/22/18 09/22/18 07:58 10:47 10:47 WBC RBC Hgb Hct MCV MCH MCHC RDW Plt Count MPV Absolute Neuts (auto) Neutrophils % Lymphocytes % Monocytes % Eosinophils % Basophils % Nucleated RBC % PT with INR INR PTT (Actin FS) Puncture Site ABG pH ABG pCO2 at Pt Temp ABG pO2 at Pt Temp ABG HCO3 ABG O2 Sat (Measured) ABG O2 Content ABG Base Excess Richy Test Oxygen Flow Rate Sodium 140 Potassium 3.3 L Chloride 105 Carbon Dioxide 25 Anion Gap 10 BUN 21 H Creatinine 0.6 Creat Clearance w eGFR > 60 Random Glucose 113 H Lactic Acid 1.0 Calcium 7.8 L Phosphorus Magnesium 2.5 H Total Bilirubin 0.4 AST 26 ALT 31 Alkaline Phosphatase 122 H Creatine Kinase 966 H Creatine Kinase Index 0.7 CK-MB (CK-2) 7.6 H Troponin I 0.02 Total Protein 7.8 Albumin 3.5 HIV 1&2 Antibody Screen Negative HIV P24 Antigen Negative 09/22/18 09/22/18 09/22/18 10:47 10:47 21:00 WBC 12.0 H RBC 4.50 Hgb 13.3 Hct 38.4 MCV 85.4 MCH 29.5 MCHC 34.5 RDW 15.1 Plt Count 307 MPV 7.5 Absolute Neuts (auto) Neutrophils % Lymphocytes % Monocytes % Eosinophils % Basophils % Nucleated RBC % PT with INR 15.10 H INR 1.28 H PTT (Actin FS) 31.1 Puncture Site ABG pH ABG pCO2 at Pt Temp ABG pO2 at Pt Temp ABG HCO3 ABG O2 Sat (Measured) ABG O2 Content ABG Base Excess Richy Test Oxygen Flow Rate Sodium Potassium Chloride Carbon Dioxide Anion Gap BUN Creatinine Creat Clearance w eGFR Random Glucose Lactic Acid Calcium Phosphorus Magnesium Total Bilirubin AST ALT Alkaline Phosphatase Creatine Kinase Creatine Kinase Index CK-MB (CK-2) Troponin I < 0.02 Total Protein Albumin HIV 1&2 Antibody Screen HIV P24 Antigen 09/23/18 09/23/18 09/23/18 05:15 05:15 05:15 WBC 10.6 H RBC 3.83 L Hgb 11.5 L Hct 33.3 L MCV 87.1 MCH 30.0 MCHC 34.5 RDW 14.5 Plt Count 253 MPV 8.1 Absolute Neuts (auto) 7.7 Neutrophils % 72.4 D Lymphocytes % 14.6 D Monocytes % 11.2 H Eosinophils % 1.2 Basophils % 0.6 Nucleated RBC % 0 PT with INR INR PTT (Actin FS) Puncture Site ABG pH ABG pCO2 at Pt Temp ABG pO2 at Pt Temp ABG HCO3 ABG O2 Sat (Measured) ABG O2 Content ABG Base Excess Richy Test Oxygen Flow Rate Sodium 136 Potassium 3.7 Chloride 103 Carbon Dioxide 25 Anion Gap 8 BUN 15 Creatinine 0.4 L Creat Clearance w eGFR > 60 Random Glucose 101 Lactic Acid Calcium 7.8 L Phosphorus 3.6 Magnesium 1.9 Total Bilirubin 0.8 AST 23 ALT 26 Alkaline Phosphatase 99 Creatine Kinase 617 H Creatine Kinase Index 0.5 CK-MB (CK-2) 3.7 H Troponin I Total Protein 6.8 Albumin 3.0 L HIV 1&2 Antibody Screen HIV P24 Antigen 09/23/18 09/23/18 07:50 08:18 WBC RBC Hgb Hct MCV MCH MCHC RDW Plt Count MPV Absolute Neuts (auto) Neutrophils % Lymphocytes % Monocytes % Eosinophils % Basophils % Nucleated RBC % PT with INR 16.60 H INR 1.40 H PTT (Actin FS) Puncture Site No Result Required. ABG pH 7.43 ABG pCO2 at Pt Temp 36.2 ABG pO2 at Pt Temp 143.0 H D ABG HCO3 23.7 ABG O2 Sat (Measured) 99.4 H ABG O2 Content 15.3 ABG Base Excess 0.2 Richy Test Positive Oxygen Flow Rate Yes Sodium Potassium Chloride Carbon Dioxide Anion Gap BUN Creatinine Creat Clearance w eGFR Random Glucose Lactic Acid Calcium Phosphorus Magnesium Total Bilirubin AST ALT Alkaline Phosphatase Creatine Kinase Creatine Kinase Index CK-MB (CK-2) Troponin I Total Protein Albumin HIV 1&2 Antibody Screen HIV P24 Antigen ASSESSMENT AND PLAN: Acute Respiratory Failure r/o Pneumonia Severe Sepsis Lactic Acidosis +Troponins likely Demand Ischemia Mental Retardation/Cerebral Palsy Seizure Disorder Asthma Functional Quadriplegia - Pigtail to water seal and can clamp later today and likely remove in AM - Empiric ABX - f/u cultures - IVF - monitor urine output, creatinine - replete lytes - Can start SBTs - enteral feeds - DVT/GI prophylaxis - ICU monitoring Dr Trevizo Critical care time spent in reviewing chart, evaluating patient and formulating plan 35 min
[2018-09-23] MEDS: levETIRAcetam 500 MG/5 ML ORAL SOLUTION (UNIT-DOSE CUPS) GT SCH (11:21)
[2018-09-23] MEDS: carBAMazepine 200 MG/10 ML UNIT-DOSE CUP PO SCH ×2 (12:03→22:34)
[2018-09-23] MEDS ORDERED: LORazepam 2 MG/ML SDV VIAL IVPUSH PRN (13:16)
[2018-09-23] MEDS ORDERED: ACETAMINOPHEN 1000 MG/100 ML VIAL (NON FORMULARY) IVPB PRN (14:31)
--- NOTE | 2018-09-23 14:48 | PN ---
Progress Note (short form) - Note Progress Note: SUBJECTIVE Patient seen and examined at the bedside. OBJECTIVE Vital Signs Temperature 88 F L 09/23/18 10:00 Pulse Rate 95 H 09/23/18 12:00 Respiratory Rate 19 09/23/18 12:05 Blood Pressure 150/79 09/23/18 12:00 O2 Sat by Pulse Oximetry (%) 100 09/22/18 20:34 General: Intubated and sedated Head: No signs of trauma Eyes: EOMI, sclera anicteric ENT: Moist mucus membranes, copious secretions Neck: Normal ROM, supple Lungs: Scattered rhonchi Cardio: Regular rhythm, S1 and S2 present Abdomen: Soft, nontender Extremities: Distal pulses present SKIN: Warm, Dry, normal turgor Neurologic: Sedated, upper extremities contracted ASSESSMENT 28yo M with PMH of MR, CP, Spastic quadriparesis, intractable seizures, cortical blindness, asthma presenting with respiratory distress and fever. Due to increased work of breathing, patient intubated while in the ED. Subclavian central line placed. CXR found to have right sided pneumothorax for which pigtail chest tube was placed. HOD#2. PLAN NEURO Chronic MR, CP, Spastic quadriparesis, intractable seizures, cortical blindness -Continue home meds -Sedated for patient comfort and vent synchrony PULM Respiratory distress likely due to aspiration pneumonia -Covered with Vanc/Zosyn -Intubated -Settings: Rate 14/ TV 300/ PEEP 5/ FiO2 40 (from 60) -Consider spontaneous breathing trial tomorrow Pneumothorax -Pigtail chest tube placed -on water seal now, consider removing the tube tomorrow -if unstable, put pleura-vac back on suction -CXR for tomorrow AM CV Tpn negative EKG: rate 89, QTc 438, NSR, when compared with ECG of 08/11/18, ST no longer depressed in anterior leads ID Severe sepsis, likely due to aspiration pneumonia -given Vanc/Zosyn in the ED -consult for ID -lactate of 5.2 decreased to 1.0 -Follow blood cultures -Follow urine cultures -HIV, influenza negative. HCV pending RENAL ABG is within normal limits Rhabdomyolysis, resolving -CPK 2300>600 with normal BUN/Cr -Gently hydrate and repeat CPK in AM FEN Monitor electrolytes -Replete as needed -Ca low at 7.8, repleted NS 50cc/hr NPO PPX -VTE: Heparin -GI: Protonix 40 #DISPO: Continue to monitor in the ICU
[2018-09-23] MEDS: CHLORHEXIDINE GLUCONATE 4% CLEANSER FOR DECOLONIZATION TP SCH (22:33)
[2018-09-23] MEDS: levETIRAcetam 500 MG/5 ML INJECTION VIAL IVPB SCH (22:33)
[2018-09-23] MEDS: cloNIDine HCL 0.1 MG TABLET PO SCH (22:33)
[2018-09-23] MEDS: ASPIRIN 81 MG CHEWABLE TABLETS GT SCH (22:33)
[2018-09-24] MEDS: BACLOFEN 10 MG TABLET (FP) GT SCH ×4 (00:32→17:11)
[2018-09-24] MEDS ORDERED: PIPERACILLIN/TAZOBACTAM 3.375 GM VIAL IVPB ONE ×3 (00:33→17:04)
[2018-09-24] MEDS ORDERED: DEXTROSE 5%-WATER - 50 ML IVPB ONE ×3 (00:33→17:04)
[2018-09-24] MEDS ORDERED: fentaNYL CITRATE 250 MCG/5 ML VIAL ONE ×2 (00:33→17:04)
[2018-09-24] MEDS ORDERED: SODIUM CHLORIDE 500 ML IV STA (02:25)
[2018-09-24] MEDS: PIPERACILLIN/TAZOB 3.375 GM 3.375 GM in DEXTROSE 5%-WATER - 50 ML IVPB SCH ×4 (02:51→17:12)
[2018-09-24 06:00] LABS: BASO % 0.5 % (0-2.0); EOS % 4.4 % (0-4.5); HEMATOCRIT 26.7 % (35.4-49); HEMOGLOBIN 9.4 GM/dL (11.7-16.9); LYMPH % 21.8 % (8-40); MCH 30.5 pg (25.7-33.7); MCHC 35.2 g/dl (32.0-35.9); MEAN CELL VOLUME 86.6 fl (80-96); MEAN PLT VOLUME 7.6 fl (7.5-11.1); MONO % 13.6 % (3.8-10.2); NEUT % 59.7 % (42.8-82.8); PLATELET COUNT 200 K/MM3 (134-434); RBC 3.08 M/mm3 (4.00-5.60); RDW 14.4 % (11.9-15.9); WHITE BLOOD COUNT 7.7 K/mm3 (4.0-10.0)
[2018-09-24] MEDS: clonazePAM 0.5 MG TABLET GT SCH ×3 (06:14→21:04)
[2018-09-24 06:40] LABS: ALBUMIN 2.4 g/dl (3.4-5.0); ALK PHOS 80 U/L (45-117); ANION GAP 7 MMOL/L (8-16); BILIRUBIN,TOTAL 0.6 mg/dL (0.2-1); BLOOD UREA NITROGEN 9 mg/dL (7-18); CALCIUM 7.2 mg/dL (8.5-10.1); CHLORIDE 105 mmol/L (98-107); CO2 24 mmol/L (21-32); CREATININE 0.3 mg/dL (0.55-1.3); GLUCOSE,RANDOM 95 mg/dL (74-106); MAGNESIUM 1.9 mg/dL (1.8-2.4); SGOT/AST 39 U/L (15-37); SGPT/ALT 28 U/L (13-61); SODIUM 136 mmol/L (136-145); TOT PROT 5.7 g/dl (6.4-8.2)
[2018-09-24] MEDS: FENTANYL INJECTION 500 MCG in DEXTROSE 5%-WATER - 90 ML IVPB SCH ×2 (07:55→17:13)
[2018-09-24] MEDS: SODIUM CHLORIDE 1,000 ML IV SCH (07:55)
--- NOTE | 2018-09-24 08:10 | PN ---
Progress Note (short form) - Note Progress Note: PULM/CCM Patient seen and examined in the ICU. Intubated and sedated. AC Mode of vent, 40% FiO2, PEEP 5. No pressors. Pigtail intact without an air leak off LWS. Active Medications Acetaminophen (Ofirmev Injection -) 750 mg IVPB Q6H PRN PRN Reason: FEVER Last Admin: 09/23/18 14:57 Dose: 750 mg Aspirin (Asa -) 81 mg GT HS [facility] Last Admin: 09/23/18 22:33 Dose: 81 mg Baclofen (Lioresal -) 10 mg GT DAILY@0600,1200 [facility] Last Admin: 09/24/18 11:32 Dose: 10 mg Baclofen (Lioresal -) 20 mg GT DAILY@1800,0000 [facility] Last Admin: 09/24/18 17:11 Dose: 20 mg Carbamazepine (Tegretol Oral Suspension -) 280 mg PO BID [facility] Last Admin: 09/24/18 09:19 Dose: 280 mg Chlorhexidine Gluconate (Hibiclens For Decolonization -) 1 applic TP HS [facility] Last Admin: 09/23/18 22:33 Dose: 1 applic Cholecalciferol (Vitamin D3 -) 2,000 unit GT DAILY [facility] Last Admin: 09/24/18 09:20 Dose: 2,000 unit Clonazepam (Klonopin -) 1 mg GT TID [facility] Last Admin: 09/24/18 13:37 Dose: 1 mg Clonidine (Catapres -) 0.2 mg PO HS [facility] Last Admin: 09/23/18 22:33 Dose: 0.2 mg Heparin Sodium (Porcine) (Heparin -) 5,000 unit SQ BID [facility] Last Admin: 09/24/18 09:19 Dose: 5,000 unit Fentanyl 500 mcg/ Dextrose 100 mls @ 10 mls/hr IVPB TITR [facility] Last Admin: 09/24/18 17:13 Dose: 25 mcg/hr, 5 mls/hr Vancomycin HCl 750 mg/ (Dextrose) 250 mls @ 166.667 mls/hr IVPB BID@1000,2200 [facility]; Protocol Last Admin: 09/24/18 09:30 Dose: 166.667 mls/hr Piperacillin Sod/Tazobactam (Sod 3.375 gm/ Dextrose) 50 mls @ 100 mls/hr IVPB Q8H-IV [facility]; Protocol Last Admin: 09/24/18 17:12 Dose: 100 mls/hr Sodium Chloride (Normal Saline -) 1,000 mls @ 100 mls/hr IV ASDIR [facility] Last Admin: 09/24/18 07:55 Dose: Not Given Potassium Chloride (Potassium Chloride 10 Meq Premix Ivpb -) 10 meq in 100 mls @ 100 mls/hr IVPB Q60M ALEKSANDR Stop: 09/24/18 18:44 Levetiracetam (Keppra Injection -) 1,500 mg IVPB BID [facility] Last Admin: 09/24/18 09:17 Dose: 1,500 mg Lorazepam (Ativan Injection -) 1 mg IVPUSH Q6H PRN PRN Reason: seizures Mupirocin (Bactroban Ointment (For Decolonization) -) 1 applic NS BID [facility] Stop: 09/27/18 21:59 Last Admin: 09/24/18 09:18 Dose: 1 applic Pantoprazole Sodium (Protonix Iv) 40 mg IVPUSH DAILY [facility] Last Admin: 09/24/18 09:19 Dose: 40 mg Potassium Chloride (Potassium Chloride 20 Meq Premix Ivpb -) 20 meq IVPB ONCE STA Stop: 09/24/18 17:32 Scopolamine HBr (Transderm-Scop -) 1 patch TD Q72H [facility] Last Admin: 09/22/18 16:12 Dose: 1 patch Vital Signs Period Temp Pulse Resp BP Sys/Don Pulse Ox Last 24 Hr 98 F-99.8 F 49-98 12-20 88-145/31-78 100-100 Intake & Output 09/21/18 09/22/18 09/23/18 09/24/18 23:59 23:59 23:59 23:59 Intake Total 2660 470 2645 Output Total 540 074 8315 Balance 2110 70 1245 Weight 47.3 kg 47.23 kg 47.5 kg Gen: intubated, sedated Heart: tachycardic, regular Lung: scattered rhonchi, right pigtail catheter intact W/O an air leak Abd: PEG, +BS, soft, nontender Ext: contracted, no edema CBC, BMP 09/24/18 05:30 09/24/18 13:30 Microbiology 09/22/18 14:00 Sputum - Endotrachea Suction/Ventilator Gram Stain - Final 09/22/18 14:00 Sputum - Endotrachea Suction/Ventilator Sputum Culture - Preliminary Pending Organism 09/22/18 05:00 Blood - Peripheral Venous Blood Culture - Preliminary Pending Organism 09/22/18 05:00 Blood - Peripheral Venous Blood Culture - Preliminary NO GROWTH OBTAINED AFTER 48 HOURS, INCUBATION TO CONTINUE FOR 3 DAYS. RECENT IMAGING TO NOTE: CXR 09/23: A single view the chest reveals an elevated right hemidiaphragm, right upper quadrant / right base tubing, spinal support hardware, right jugular line and endotracheal tube with tip above osmany. There is a large heart. An acute chest process is not seen. ASSESS: Resolving Acute Respiratory Failure r/o Pneumonia ResolvingSepsis Resolving Lactic Acidosis s/p +Troponins likely Demand Ischemia Mental Retardation/Cerebral Palsy Seizure Disorder Asthma Functional Quadriplegia PLAN: - D/c Sedation - Hold TFs after midnight - Check CXR - SBT & Extubate a/p - Maintain Pigtail to water seal - D/c pigtail once off PP - Empiric ABX - f/u cultures - IVFs - monitor urine output, creatinine - replete lytes - DVT/GI prophylaxis - D/c back to Med Surg CCT spent in reviewing chart, evaluating patient and formulating plan 36" JOANIE, VILMAP-BC [facility] ICU PULM/CCM [id number]
--- NOTE | 2018-09-24 08:22 | PN ---
Physical Exam: SUBJECTIVE: Patient seen and examined in the icu. awake alert. hypotensive overnight, still slightly hypotensive. on ivf @ 100 OBJECTIVE: replete K, repeat levels anerobic bottle + pending organism repeat blood cultures start jevity feeds Vital Signs Period Temp Pulse Resp BP Sys/Don Pulse Ox Last 24 Hr 88 F-100.7 F 51-95 12-20 88-150/34-79 100-100 GENERAL: intubated, awake HEAD: Normal with no signs of trauma. EYES: Pupils equal, round and reactive to light EARS, NOSE, THROAT: Ears normal, nares patent, oropharynx clear without exudates. Moist mucous membranes. NECK: Normal range of motion, supple without lymphadenopathy, JVD, or masses. LUNGS: mild congestion anteriorly HEART: tachycardia 90s ABDOMEN: Soft, nontender, not distended, + g/j tube intact MUSCULOSKELETAL: contracted on all extremities UPPER EXTREMITIES: No peripheral edema. LOWER EXTREMITIES: No peripheral edema. NEUROLOGICAL: non verbal at baseline PSYCHIATRIC: calm SKIN: abrasions noted on left upper chest, no skin breakdown. Laboratory Results - last 24 hr 09/22/18 09/23/18 09/23/18 07:50 05:15 07:50 WBC 10.6 H RBC 3.83 L Hgb 11.5 L Hct 33.3 L MCV 87.1 MCH 30.0 MCHC 34.5 RDW 14.5 Plt Count 253 MPV 8.1 Absolute Neuts (auto) 7.7 Neutrophils % 72.4 D Lymphocytes % 14.6 D Monocytes % 11.2 H Eosinophils % 1.2 Basophils % 0.6 Nucleated RBC % 0 PT with INR 16.60 H INR 1.40 H Puncture Site ABG pH ABG pCO2 at Pt Temp ABG pO2 at Pt Temp ABG HCO3 ABG O2 Sat (Measured) ABG O2 Content ABG Base Excess Richy Test Oxygen Flow Rate Sodium Potassium Chloride Carbon Dioxide Anion Gap BUN Creatinine Creat Clearance w eGFR Random Glucose Calcium Magnesium Total Bilirubin AST ALT Alkaline Phosphatase Total Protein Albumin HIV Genotype Non reactive 09/23/18 09/24/18 09/24/18 08:18 05:30 05:30 WBC 7.7 RBC 3.08 L Hgb 9.4 L Hct 26.7 L D MCV 86.6 MCH 30.5 MCHC 35.2 RDW 14.4 Plt Count 200 D MPV 7.6 Absolute Neuts (auto) 4.6 Neutrophils % 59.7 Lymphocytes % 21.8 D Monocytes % 13.6 H Eosinophils % 4.4 D Basophils % 0.5 Nucleated RBC % 0 PT with INR INR Puncture Site No Result Required. ABG pH 7.43 ABG pCO2 at Pt Temp 36.2 ABG pO2 at Pt Temp 143.0 H D ABG HCO3 23.7 ABG O2 Sat (Measured) 99.4 H ABG O2 Content 15.3 ABG Base Excess 0.2 Richy Test Positive Oxygen Flow Rate Yes Sodium 136 Potassium 3.0 L Chloride 105 Carbon Dioxide 24 Anion Gap 7 L BUN 9 Creatinine 0.3 L Creat Clearance w eGFR > 60 Random Glucose 95 Calcium 7.2 L Magnesium 1.9 Total Bilirubin 0.6 AST 39 H ALT 28 Alkaline Phosphatase 80 Total Protein 5.7 L Albumin 2.4 L HIV Genotype Active Medications Generic Name Dose Route Start Last Admin Trade Name Freq PRN Reason Stop Dose Admin Acetaminophen 750 mg 09/23/18 14:31 09/23/18 14:57 Ofirmev Injection - IVPB 750 mg Q6H PRN Administration FEVER Aspirin 81 mg 09/22/18 22:00 09/23/18 22:33 Asa - GT 81 mg HS ALEKSANDR Administration Baclofen 10 mg 09/23/18 06:00 09/24/18 06:14 Lioresal - GT 10 mg DAILY@0600,1200 ALEKSANDR Administration Baclofen 20 mg 09/22/18 18:00 09/24/18 00:32 Lioresal - GT 20 mg DAILY@1800,0000 ALEKSANDR Administration Carbamazepine 280 mg 09/22/18 22:00 09/23/18 22:34 Tegretol Oral Suspension - PO 280 mg BID ALEKSANDR Administration Chlorhexidine Gluconate 1 applic 09/22/18 22:00 09/23/18 22:33 Hibiclens For Decolonization - TP 1 applic HS ALEKSANDR Administration Cholecalciferol 2,000 unit 09/23/18 10:00 09/23/18 09:49 Vitamin D3 - GT 2,000 unit DAILY ALEKSANDR Administration Clonazepam 1 mg 09/22/18 22:00 09/24/18 06:14 Klonopin - GT 1 mg TID ALEKSANDR Administration Clonidine 0.2 mg 09/22/18 22:00 09/23/18 22:33 Catapres - PO 0.2 mg HS ALEKSANDR Administration Heparin Sodium (Porcine) 5,000 unit 09/22/18 22:00 09/23/18 22:33 Heparin - SQ 5,000 unit BID ALEKSANDR Administration Fentanyl 500 mcg/ Dextrose 100 mls @ 10 mls/hr 09/22/18 07:30 09/24/18 07:55 IVPB Not Given TITR ALEKSANDR 50 MCG/HR Vancomycin HCl 750 mg/ 250 mls @ 166.667 mls/hr 09/22/18 22:00 09/23/18 22:34 Dextrose IVPB 166.667 mls/hr BID@1000,2200 ALEKSANDR Administration Protocol Piperacillin Sod/Tazobactam 50 mls @ 100 mls/hr 09/23/18 02:00 09/24/18 02:51 Sod 3.375 gm/ Dextrose IVPB 100 mls/hr Q8H-IV ALEKSANDR Administration Protocol Sodium Chloride 1,000 mls @ 100 mls/hr 09/24/18 06:45 09/24/18 07:55 Normal Saline - IV Not Given ASDIR ALEKSANDR Potassium Chloride 10 meq in 100 mls @ 100 mls/hr 09/24/18 08:15 Potassium Chloride 10 Meq Premix Ivpb - IVPB 09/24/18 10:14 Q60M ALEKSANDR Levetiracetam 1,500 mg 09/23/18 22:00 09/23/18 22:33 Keppra Injection - IVPB 1,500 mg BID ALEKSANDR Administration Lorazepam 1 mg 09/23/18 13:16 Ativan Injection - IVPUSH Q6H PRN seizures Mupirocin 1 applic 09/22/18 22:00 09/23/18 22:33 Bactroban Ointment (For Decolonization) - NS 09/27/18 21:59 1 applic BID ALEKSANDR Administration Pantoprazole Sodium 40 mg 09/22/18 15:30 09/23/18 09:48 Protonix Iv IVPUSH 40 mg DAILY ALEKSANDR Administration Scopolamine HBr 1 patch 09/22/18 14:15 09/22/18 16:12 Transderm-Scop - TD 1 patch Q72H ALEKSANDR Administration ASSESSMENT/PLAN: Patient is a 28 year old male with a significant past medical history of profound mental retardation, cerebral palsy, dysphagia, peg tube, seizures, hyponatremia and asthma. Patient is a resident at [facility]. He has had multiple admissions to [facility] for aspiration pneumonia. He comes in to the ED for shortness of breath and coughing up green mucus. In the ED he was noted to be with tachycardia and hypotension. He was intubated to protect his airway after noted to be in acute respiratory distress. A central line was placed. Patient then developed a pneumothorax per chest xray and a pig tail connected to chest tube was placed. problem list ------- profound mental retardation microcephaly dysphagia, peg tube dependent seizures hyponatremia asthma aspiration pneumonia respiratory distress acute bronchitis rhabdo pneumothorax ------ ID: Severe Sepsis/unclear etiology, likely secondary to aspiration pnemonia, vs cap vs. acute bronchitis Intubated on admission to protect airway. on a/c mode. remains intubated hypotensive overnight blood cultures being re drawn On zosyn and vanco Pulm: Right pneumothrax. Chest tube placed in the ED. less than <5cc noted. sero sang. Neuro: Seizure history. On keppra, tegretol, baclophen. Renal rhabdo. presents with elevated cpk, cpk 600 as of 09/23. repeat levels today On ivf. bun/creat normal limits Card: Rule out ACS troponins negative Tachycardia, in the setting of sepsis Functional Quadraplegia. He is a total care, and requires q2 position changes to prevent skin breakdown. fen NS @ 100/cchr monitor electrolytes start jevity feeds disposition. full code. Visit type - Emergency Visit Emergency Visit: Yes ED Registration Date: 09/22/18 Care time: The patient presented to the Emergency Department on the above date and was hospitalized for further evaluation of their emergent condition. - New Patient This patient is new to me today: No - Critical Care Critical Care patient: Yes Total Critical Care Time (in minutes): 45 Critical Care Statement: The care of this patient involved high complexity decision making to prevent further life threatening deterioration of the patient 's condition and/or to evaluate & treat vital organ system(s) failure or risk of failure. - Discharge Referral Referred to [facility] No
[2018-09-24] MEDS: levETIRAcetam 500 MG/5 ML INJECTION VIAL IVPB SCH ×2 (09:17→21:04)
[2018-09-24] MEDS: MUPIROCIN 2% TOPICAL OINTMENT FOR DECOLONIZATION NS SCH ×2 (09:18→21:04)
[2018-09-24] MEDS: HEPARIN NA (PORCINE) 5,000 UNITS/ML 1ML VIAL SQ SCH ×2 (09:19→21:04)
[2018-09-24] MEDS: PANTOPRAZOLE SODIUM 40 MG VIAL IVPUSH SCH (09:19)
[2018-09-24] MEDS: carBAMazepine 200 MG/10 ML UNIT-DOSE CUP PO SCH ×2 (09:19→21:05)
[2018-09-24] MEDS: CHOLECALCIFEROL (VITAMIN D3) 1,000 UNIT TABLET (FP) GT SCH (09:20)
[2018-09-24] MEDS ORDERED: PT OWN MED DRAWER 7, Y5N ONE ×4 (09:25→21:06)
[2018-09-24] MEDS: KCL 10 MEQ IVPB 10 MEQ/100 ML INFUS.BAG IVPB SCH ×2 (09:28→09:29)
[2018-09-24] MEDS: VANCOMYCIN 750 MG in DEXTROSE 5%-WATER - 250 ML IVPB SCH ×2 (09:30→21:06)
[2018-09-24] MEDS ORDERED: BENZOIN/ALOE VERA/STORAX/TOLU 58 ML BOTTLE ONE (15:30)
[2018-09-24] MEDS ORDERED: POTASSIUM CHLORIDE 20 MEQ PREMIX IVPB 100 ML IVPB STA (17:31)
[2018-09-24] MEDS ORDERED: KCL 10 MEQ IVPB 10 MEQ/100 ML INFUS.BAG IVPB SCH (17:45)
[2018-09-24] MEDS ORDERED: INSULIN (NOVOLOG) ASPART 100 UNITS/ML 10ML VIAL ONE (20:21)
[2018-09-24] MEDS: CHLORHEXIDINE GLUCONATE 4% CLEANSER FOR DECOLONIZATION TP SCH (21:04)
[2018-09-24] MEDS: cloNIDine HCL 0.1 MG TABLET PO SCH (21:04)
[2018-09-24] MEDS: ASPIRIN 81 MG CHEWABLE TABLETS GT SCH (21:04)
[2018-09-24 23:42] VITALS: BMI 20.2
[2018-09-25] MEDS: BACLOFEN 10 MG TABLET (FP) GT SCH ×4 (00:49→17:38)
[2018-09-25] MEDS ORDERED: PIPERACILLIN/TAZOBACTAM 3.375 GM VIAL IVPB ONE ×3 (03:24→17:33)
[2018-09-25] MEDS ORDERED: DEXTROSE 5%-WATER - 50 ML IVPB ONE ×3 (03:24→17:34)
[2018-09-25] MEDS: PIPERACILLIN/TAZOB 3.375 GM 3.375 GM in DEXTROSE 5%-WATER - 50 ML IVPB SCH ×3 (03:39→17:37)
[2018-09-25] MEDS: clonazePAM 0.5 MG TABLET GT SCH ×3 (04:59→21:19)
[2018-09-25 05:48] LABS: BASO % 0.9 % (0-2.0); EOS % 5.8 % (0-4.5); HEMOGLOBIN 9.4 GM/dL (11.7-16.9); LYMPH % 29.3 % (8-40); MCH 30.2 pg (25.7-33.7); MCHC 34.9 g/dl (32.0-35.9); MEAN CELL VOLUME 86.6 fl (80-96); MEAN PLT VOLUME 7.8 fl (7.5-11.1); MONO % 2.4 % (3.8-10.2); NEUT % 61.6 % (42.8-82.8); PLATELET COUNT 203 K/MM3 (134-434); RBC 3.12 M/mm3 (4.00-5.60); RDW 14.9 % (11.9-15.9); WHITE BLOOD COUNT 5.8 K/mm3 (4.0-10.0)
[2018-09-25 07:00] LABS: ALBUMIN 2.4 g/dl (3.4-5.0); ALK PHOS 77 U/L (45-117); ANION GAP 8 MMOL/L (8-16); BILIRUBIN,TOTAL 0.6 mg/dL (0.2-1); BLOOD UREA NITROGEN 4 mg/dL (7-18); CALCIUM 7.5 mg/dL (8.5-10.1); CHLORIDE 108 mmol/L (98-107); CO2 24 mmol/L (21-32); CREATININE 0.5 mg/dL (0.55-1.3); GLUCOSE,RANDOM 90 mg/dL (74-106); MAGNESIUM 1.5 mg/dL (1.8-2.4); POTASSIUM 3.6 mmol/L (3.5-5.1); SGOT/AST 24 U/L (15-37); SGPT/ALT 29 U/L (13-61); SODIUM 141 mmol/L (136-145); TOT PROT 5.7 g/dl (6.4-8.2)
[2018-09-25] MEDS: FENTANYL INJECTION 500 MCG in DEXTROSE 5%-WATER - 90 ML IVPB SCH (08:35)
--- NOTE | 2018-09-25 09:01 | PN ---
Physical Exam: SUBJECTIVE: Patient seen and examined in the ICU. extubated. OBJECTIVE: tolerating feeds extubated today Vital Signs Period Temp Pulse Resp BP Sys/Don Pulse Ox Last 24 Hr 98 F-99.1 F 53-110 13-19 89-144/31-90 100-100 GENERAL:extubated today, awake alert. HEAD: Normal with no signs of trauma/microcephaly EYES: Pupils equal, round and reactive to light EARS, NOSE, THROAT: Ears normal, nares patent, oropharynx clear without exudates. Moist mucous membranes. NECK: Normal range of motion, supple without lymphadenopathy, JVD, or masses. LUNGS: mild congestion anteriorly HEART: tachycardia 90s ABDOMEN: Soft, nontender, not distended, + g/j tube intact MUSCULOSKELETAL: contracted on all extremities UPPER EXTREMITIES: No peripheral edema. LOWER EXTREMITIES: No peripheral edema. NEUROLOGICAL: non verbal at baseline PSYCHIATRIC: calm SKIN: abrasions noted on left upper chest, no skin breakdown. Laboratory Results - last 24 hr 09/22/18 09/24/18 09/24/18 12:42 05:30 13:30 WBC RBC Hgb Hct MCV MCH MCHC RDW Plt Count MPV Absolute Neuts (auto) Neutrophils % Lymphocytes % Monocytes % Eosinophils % Basophils % Nucleated RBC % Sodium 136 Potassium 3.0 L 3.2 L Chloride 105 Carbon Dioxide 24 Anion Gap 7 L BUN 9 Creatinine 0.3 L Creat Clearance w eGFR > 60 Random Glucose 95 Calcium 7.2 L Magnesium 1.9 Total Bilirubin 0.6 AST 39 H ALT 28 Alkaline Phosphatase 80 Creatine Kinase 1825 H Creatine Kinase Index 0.1 CK-MB (CK-2) 3.2 Total Protein 5.7 L Albumin 2.4 L HIV 1&2 Antibody Screen Cancelled HIV P24 Antigen Cancelled 09/25/18 09/25/18 05:30 05:30 WBC 5.8 RBC 3.12 L Hgb 9.4 L Hct 27.0 L MCV 86.6 MCH 30.2 MCHC 34.9 RDW 14.9 Plt Count 203 MPV 7.8 Absolute Neuts (auto) 3.6 Neutrophils % 61.6 Lymphocytes % 29.3 D Monocytes % 2.4 L D Eosinophils % 5.8 H Basophils % 0.9 Nucleated RBC % 0 Sodium 141 Potassium 3.6 Chloride 108 H Carbon Dioxide 24 Anion Gap 8 BUN 4 L Creatinine 0.5 L Creat Clearance w eGFR > 60 Random Glucose 90 Calcium 7.5 L Magnesium 1.5 L Total Bilirubin 0.6 AST 24 ALT 29 Alkaline Phosphatase 77 Creatine Kinase 1019 H Creatine Kinase Index 0.1 CK-MB (CK-2) 1.7 Total Protein 5.7 L Albumin 2.4 L HIV 1&2 Antibody Screen HIV P24 Antigen Active Medications Generic Name Dose Route Start Last Admin Trade Name Freq PRN Reason Stop Dose Admin Acetaminophen 750 mg 09/23/18 14:31 09/23/18 14:57 Ofirmev Injection - IVPB 750 mg Q6H PRN Administration FEVER Aspirin 81 mg 09/22/18 22:00 09/24/18 21:04 Asa - GT 81 mg HS ALEKSANDR Administration Baclofen 10 mg 09/23/18 06:00 09/25/18 05:01 Lioresal - GT 10 mg DAILY@0600,1200 ALEKSANDR Administration Baclofen 20 mg 09/22/18 18:00 09/25/18 00:49 Lioresal - GT 20 mg DAILY@1800,0000 ALEKSANDR Administration Carbamazepine 280 mg 09/22/18 22:00 09/24/18 21:05 Tegretol Oral Suspension - PO 280 mg BID ALEKSANDR Administration Chlorhexidine Gluconate 1 applic 09/22/18 22:00 09/24/18 21:04 Hibiclens For Decolonization - TP 1 applic HS ALEKSANDR Administration Cholecalciferol 2,000 unit 09/23/18 10:00 09/24/18 09:20 Vitamin D3 - GT 2,000 unit DAILY ALEKSANDR Administration Clonazepam 1 mg 09/22/18 22:00 09/25/18 04:59 Klonopin - GT 1 mg TID ALEKSANDR Administration Clonidine 0.2 mg 09/22/18 22:00 09/24/18 21:04 Catapres - PO 0.2 mg HS ALEKSANDR Administration Heparin Sodium (Porcine) 5,000 unit 09/22/18 22:00 09/24/18 21:04 Heparin - SQ 5,000 unit BID ALEKSANDR Administration Fentanyl 500 mcg/ Dextrose 100 mls @ 10 mls/hr 09/22/18 07:30 09/25/18 08:35 IVPB Not Given TITR ALEKSANDR 50 MCG/HR Vancomycin HCl 750 mg/ 250 mls @ 166.667 mls/hr 09/22/18 22:00 09/24/18 21:06 Dextrose IVPB 166.667 mls/hr BID@1000,2200 ALEKSANDR Administration Protocol Piperacillin Sod/Tazobactam 50 mls @ 100 mls/hr 09/23/18 02:00 09/25/18 03:39 Sod 3.375 gm/ Dextrose IVPB 100 mls/hr Q8H-IV ALEKSANDR Administration Protocol Sodium Chloride 1,000 mls @ 100 mls/hr 09/24/18 06:45 09/24/18 07:55 Normal Saline - IV Not Given ASDIR ALEKSANDR Levetiracetam 1,500 mg 09/23/18 22:00 09/24/18 21:04 Keppra Injection - IVPB 1,500 mg BID ALEKSANDR Administration Lorazepam 1 mg 09/23/18 13:16 09/24/18 18:43 Ativan Injection - IVPUSH 1 mg Q6H PRN Administration seizures Mupirocin 1 applic 09/22/18 22:00 09/24/18 21:04 Bactroban Ointment (For Decolonization) - NS 09/27/18 21:59 1 applic BID ALEKSANDR Administration Pantoprazole Sodium 40 mg 09/22/18 15:30 09/24/18 09:19 Protonix Iv IVPUSH 40 mg DAILY ALEKSANDR Administration Scopolamine HBr 1 patch 09/22/18 14:15 09/22/18 16:12 Transderm-Scop - TD 1 patch Q72H ALEKSANDR Administration ASSESSMENT/PLAN: Patient is a 28 year old male with a significant past medical history of profound mental retardation, cerebral palsy, dysphagia, peg tube, seizures, hyponatremia and asthma. Patient is a resident at [facility]. He has had multiple admissions to [facility] for aspiration pneumonia. He comes in to the ED for shortness of breath and coughing up green mucus. In the ED he was noted to be with tachycardia and hypotension. He was intubated on admission, extubated on 2018. On admission patient developed a pneumothorax per chest xray and a pig tail connected to chest tube was placed. problem list ------- profound mental retardation microcephaly dysphagia, peg tube dependent seizures hyponatremia asthma aspiration pneumonia respiratory distress acute bronchitis rhabdo pneumothorax ------ ID: Severe Sepsis/likely secondary to aspiration pnemonia, vs cap vs. acute bronchitis Severe sepsis resolved Intubated on admission to protect airway. extubated today BP more stable. repeat blood cultures pending, +1 positive blood culture On zosyn and vanco per ID Pulm: Right pneumothrax. Chest tube placed in the ED. less than 70cc noted. sero sang. Neuro: Seizure history. no seizures since admission On keppra, tegretol, baclophen. Renal rhabdo. presents with elevated cpk, cpk 600 as of 09/23. repeat levels today On ivf. bun/creat normal limits Card: Rule out ACS troponins negative Tachycardia, in the setting of sepsis - resolved Functional Quadraplegia. He is a total care, and requires q2 position changes to prevent skin breakdown. fen NS @ 100/cchr monitor electrolytes start jevity feeds disposition. full code. Visit type - Emergency Visit Emergency Visit: Yes ED Registration Date: 09/22/18 Care time: The patient presented to the Emergency Department on the above date and was hospitalized for further evaluation of their emergent condition. - New Patient This patient is new to me today: No - Critical Care Critical Care patient: No - Discharge Referral Referred to [facility] No
[2018-09-25] MEDS ORDERED: MAGNESIUM SULF 50% (8.12 MEQ/2 ML-1 GM VIAL) IVPB ONE (09:11)
[2018-09-25] MEDS: SODIUM CHLORIDE 1,000 ML IV SCH (09:55)
[2018-09-25] MEDS: HEPARIN NA (PORCINE) 5,000 UNITS/ML 1ML VIAL SQ SCH ×2 (09:56→21:20)
[2018-09-25] MEDS: levETIRAcetam 500 MG/5 ML INJECTION VIAL IVPB SCH ×2 (09:57→21:19)
[2018-09-25] MEDS: PANTOPRAZOLE SODIUM 40 MG VIAL IVPUSH SCH (09:57)
[2018-09-25] MEDS: CHOLECALCIFEROL (VITAMIN D3) 1,000 UNIT TABLET (FP) GT SCH (09:58)
--- NOTE | 2018-09-25 09:58 | PN ---
Progress Note (short form) - Note Progress Note: PULM/CCM Patient seen and examined in the ICU. Intubated, AC Mode of vent, 40% FiO2, PEEP 5. No pressors. Pigtail intact without an air leak off LWS. Active Medications Acetaminophen (Ofirmev Injection -) 750 mg IVPB Q6H PRN PRN Reason: FEVER Last Admin: 09/23/18 14:57 Dose: 750 mg Aspirin (Asa -) 81 mg GT HS [facility] Last Admin: 09/24/18 21:04 Dose: 81 mg Baclofen (Lioresal -) 10 mg GT DAILY@0600,1200 [facility] Last Admin: 09/25/18 05:01 Dose: 10 mg Baclofen (Lioresal -) 20 mg GT DAILY@1800,0000 [facility] Last Admin: 09/25/18 00:49 Dose: 20 mg Carbamazepine (Tegretol Oral Suspension -) 280 mg PO BID [facility] Last Admin: 09/24/18 21:05 Dose: 280 mg Chlorhexidine Gluconate (Hibiclens For Decolonization -) 1 applic TP HS [facility] Last Admin: 09/24/18 21:04 Dose: 1 applic Cholecalciferol (Vitamin D3 -) 2,000 unit GT DAILY [facility] Last Admin: 09/24/18 09:20 Dose: 2,000 unit Clonazepam (Klonopin -) 1 mg GT TID [facility] Last Admin: 09/25/18 04:59 Dose: 1 mg Clonidine (Catapres -) 0.2 mg PO HS [facility] Last Admin: 09/24/18 21:04 Dose: 0.2 mg Heparin Sodium (Porcine) (Heparin -) 5,000 unit SQ BID [facility] Last Admin: 09/24/18 21:04 Dose: 5,000 unit Fentanyl 500 mcg/ Dextrose 100 mls @ 10 mls/hr IVPB TITR [facility] Last Admin: 09/25/18 08:35 Dose: Not Given Vancomycin HCl 750 mg/ (Dextrose) 250 mls @ 166.667 mls/hr IVPB BID@1000,2200 [facility]; Protocol Last Admin: 09/24/18 21:06 Dose: 166.667 mls/hr Piperacillin Sod/Tazobactam (Sod 3.375 gm/ Dextrose) 50 mls @ 100 mls/hr IVPB Q8H-IV [facility]; Protocol Last Admin: 09/25/18 03:39 Dose: 100 mls/hr Sodium Chloride (Normal Saline -) 1,000 mls @ 100 mls/hr IV ASDIR [facility] Last Admin: 09/24/18 07:55 Dose: Not Given Levetiracetam (Keppra Injection -) 1,500 mg IVPB BID [facility] Last Admin: 09/24/18 21:04 Dose: 1,500 mg Lorazepam (Ativan Injection -) 1 mg IVPUSH Q6H PRN PRN Reason: seizures Last Admin: 09/24/18 18:43 Dose: 1 mg Mupirocin (Bactroban Ointment (For Decolonization) -) 1 applic NS BID [facility] Stop: 09/27/18 21:59 Last Admin: 09/24/18 21:04 Dose: 1 applic Pantoprazole Sodium (Protonix Iv) 40 mg IVPUSH DAILY [facility] Last Admin: 09/24/18 09:19 Dose: 40 mg Scopolamine HBr (Transderm-Scop -) 1 patch TD Q72H [facility] Last Admin: 09/22/18 16:12 Dose: 1 patch Vital Signs Period Temp Pulse Resp BP Sys/Don Pulse Ox Last 24 Hr 98 F-99.1 F 53-110 13-19 89-144/31-90 100-100 Intake & Output 09/22/18 09/23/18 09/24/18 09/25/18 23:59 23:59 23:59 23:59 Intake Total 2660 470 3445 1970 Output Total 422 533 7552 1000 Balance 2110 70 2045 970 Weight 47.3 kg 47.23 kg 47.174 kg 50.258 kg CBC, BMP 09/25/18 05:30 09/25/18 05:30 Microbiology 09/22/18 05:00 Blood - Peripheral Venous Blood Culture - Preliminary Corynebacterium Species 09/24/18 08:30 Blood - Peripheral Venous Blood Culture - Preliminary NO GROWTH OBTAINED AFTER 24 HOURS, INCUBATION TO CONTINUE FOR 4 DAYS. 09/24/18 08:30 Blood - Peripheral Venous Blood Culture - Preliminary NO GROWTH OBTAINED AFTER 24 HOURS, INCUBATION TO CONTINUE FOR 4 DAYS. 09/22/18 05:00 Blood - Peripheral Venous Blood Culture - Preliminary NO GROWTH OBTAINED AFTER 72 HOURS, INCUBATION TO CONTINUE FOR 2 DAYS. 09/22/18 14:00 Sputum - Endotrachea Suction/Ventilator Gram Stain - Final 09/22/18 14:00 Sputum - Endotrachea Suction/Ventilator Sputum Culture - Preliminary Pending Organism 09/22/18 05:47 Urine - Urine Clean Catch Urine Culture - Final NO GROWTH OBTAINED 09/22/18 14:00 Urine For Antigen Detection Legionella Antigen - Final 09/22/18 14:00 Urine For Antigen Detection Streptococcus pneumoniae Antigen (M - Final RECENT IMAGING TO NOTE: CXR 09/25: A single view the chest is been submitted. Since 09/23/2018, the right line, right-sided pigtail catheter spinal support hardware is again noted. There is a weak inspiration, scoliosis and some atelectatic changes at the bases. A right jugular line is again noted and the tip is to be in the right atrium. Correlation recommended. Impression: Little change since prior study. CXR 09/23: A single view the chest reveals an elevated right hemidiaphragm, right upper quadrant / right base tubing, spinal support hardware, right jugular line and endotracheal tube with tip above osmany. There is a large heart. An acute chest process is not seen. ASSESS: Resolving Acute Respiratory Failure r/o Pneumonia ResolvingSepsis Resolving Lactic Acidosis s/p +Troponins likely Demand Ischemia Mental Retardation/Cerebral Palsy Seizure Disorder Asthma Functional Quadriplegia PLAN: - D/c Sedation NOW - Extubate - D/c TLC - Once off PPV D/c Pig Tail - Cont Empiric ABX - f/u cultures - IVFs - monitor urine output, creatinine - replete lytes - DVT/GI prophylaxis - D/c back to Med Surg CCT spent in reviewing chart, evaluating patient and formulating plan 36" JOANIE, [facility] ICU PULM/[facility] [id number] Critical Care Total Critical Care Time (in minutes): 36 Critical Care Statement: The care of this patient involved high complexity decision making to prevent further life threatening deterioration of the patient 's condition and/or to evaluate & treat vital organ system(s) failure or risk of failure.
[2018-09-25] MEDS: carBAMazepine 200 MG/10 ML UNIT-DOSE CUP PO SCH ×2 (11:00→21:20)
[2018-09-25] MEDS: VANCOMYCIN 750 MG in DEXTROSE 5%-WATER - 250 ML IVPB SCH ×2 (11:00→21:19)
[2018-09-25] MEDS: MUPIROCIN 2% TOPICAL OINTMENT FOR DECOLONIZATION NS SCH ×2 (11:12→21:20)
[2018-09-25] MEDS: SCOPOLAMINE HYDROBROMIDE 1 PATCH PATCH.TD72 TD SCH (13:18)
[2018-09-25] MEDS ORDERED: PT OWN MED DRAWER 7, Y5N ONE (21:09)
[2018-09-25] MEDS: cloNIDine HCL 0.1 MG TABLET PO SCH (21:19)
[2018-09-25] MEDS: ASPIRIN 81 MG CHEWABLE TABLETS GT SCH (21:19)
[2018-09-25] MEDS: CHLORHEXIDINE GLUCONATE 4% CLEANSER FOR DECOLONIZATION TP SCH (21:20)
[2018-09-26] MEDS: BACLOFEN 10 MG TABLET (FP) GT SCH ×4 (00:36→17:36)
[2018-09-26] MEDS ORDERED: PT OWN MED DRAWER 7, Y5N ONE ×4 (04:42→23:12)
[2018-09-26] MEDS ORDERED: PIPERACILLIN/TAZOBACTAM 3.375 GM VIAL IVPB ONE ×3 (04:43→16:28)
[2018-09-26] MEDS ORDERED: DEXTROSE 5%-WATER - 50 ML IVPB ONE ×3 (04:43→16:28)
[2018-09-26] MEDS: PIPERACILLIN/TAZOB 3.375 GM 3.375 GM in DEXTROSE 5%-WATER - 50 ML IVPB SCH ×3 (04:51→17:37)
[2018-09-26] MEDS: clonazePAM 0.5 MG TABLET GT SCH ×3 (05:23→21:46)
[2018-09-26 05:43] LABS: BASO % 0.7 % (0-2.0); HEMOGLOBIN 10.8 GM/dL (11.7-16.9); LYMPH % 40.7 % (8-40); MCH 30.4 pg (25.7-33.7); MCHC 34.9 g/dl (32.0-35.9); MEAN PLT VOLUME 7.5 fl (7.5-11.1); MONO % 13.1 % (3.8-10.2); NEUT % 41.5 % (42.8-82.8); PLATELET COUNT 246 K/MM3 (134-434); RBC 3.56 M/mm3 (4.00-5.60); RDW 14.6 % (11.9-15.9); WHITE BLOOD COUNT 5.8 K/mm3 (4.0-10.0)
[2018-09-26 07:21] LABS: ALBUMIN 2.5 g/dl (3.4-5.0); ALK PHOS 85 U/L (45-117); ANION GAP 5 MMOL/L (8-16); BILIRUBIN,TOTAL 0.3 mg/dL (0.2-1); BLOOD UREA NITROGEN 10 mg/dL (7-18); CALCIUM 7.4 mg/dL (8.5-10.1); CHLORIDE 109 mmol/L (98-107); CO2 30 mmol/L (21-32); CREATININE 0.6 mg/dL (0.55-1.3); GLUCOSE,RANDOM 112 mg/dL (74-106); POTASSIUM 3.2 mmol/L (3.5-5.1); SGOT/AST 33 U/L (15-37); SGPT/ALT 32 U/L (13-61); SODIUM 144 mmol/L (136-145); TOT PROT 6.5 g/dl (6.4-8.2)
[2018-09-26] MEDS ORDERED: POTASSIUM CHLORIDE ORAL LIQUID 20 MEQ/15 ML GT ONE (07:23)
--- NOTE | 2018-09-26 08:36 | PN ---
Physical Exam: SUBJECTIVE: Patient seen and examined in the icu. extubated on 09/25/18. still has pig tail and chest tube with 90cc total output non verbal at baseline. more alert and awake OBJECTIVE: Vital Signs Period Temp Pulse Resp BP Sys/Don Pulse Ox Last 24 Hr 98.0 F-100.3 F 70-115 17-26 110-140/55-76 96-96 GENERAL:extubated, awake alert. tolerating room air HEAD: Normal with no signs of trauma/microcephaly EYES: Pupils equal, round and reactive to light EARS, NOSE, THROAT: Ears normal, nares patent, oropharynx clear without exudates. Moist mucous membranes. NECK: Normal range of motion, supple without lymphadenopathy, JVD, or masses. LUNGS: mild congestion anteriorly HEART: nsr ABDOMEN: Soft, nontender, not distended, + g/j tube intact - skin breakdown beneath peg tube. bacitricin MUSCULOSKELETAL: contracted on all extremities - baseline UPPER EXTREMITIES: No peripheral edema. LOWER EXTREMITIES: No peripheral edema. NEUROLOGICAL: non verbal at baseline PSYCHIATRIC: calm Laboratory Results - last 24 hr 09/26/18 09/26/18 05:15 05:15 WBC 5.8 RBC 3.56 L Hgb 10.8 L Hct 31.0 L MCV 87.0 MCH 30.4 MCHC 34.9 RDW 14.6 Plt Count 246 D MPV 7.5 Absolute Neuts (auto) 2.4 Neutrophils % 41.5 L D Lymphocytes % 40.7 H D Monocytes % 13.1 H D Eosinophils % 4.0 Basophils % 0.7 Nucleated RBC % 0 Sodium 144 Potassium 3.2 L Chloride 109 H Carbon Dioxide 30 Anion Gap 5 L BUN 10 Creatinine 0.6 Creat Clearance w eGFR > 60 Random Glucose 112 H Calcium 7.4 L Magnesium 2.0 Total Bilirubin 0.3 AST 33 ALT 32 Alkaline Phosphatase 85 Total Protein 6.5 Albumin 2.5 L Active Medications Generic Name Dose Route Start Last Admin Trade Name Freq PRN Reason Stop Dose Admin Acetaminophen 750 mg 09/23/18 14:31 09/23/18 14:57 Ofirmev Injection - IVPB 750 mg Q6H PRN Administration FEVER Aspirin 81 mg 09/22/18 22:00 09/25/18 21:19 Asa - GT 81 mg HS ALEKSANDR Administration Bacitracin 1 applic 09/26/18 10:00 Bacitracin - TP DAILY ALEKSANDR Baclofen 10 mg 09/23/18 06:00 09/26/18 06:41 Lioresal - GT 10 mg DAILY@0600,1200 ALEKSANDR Administration Baclofen 20 mg 09/22/18 18:00 09/26/18 00:36 Lioresal - GT 20 mg DAILY@1800,0000 ALEKSANDR Administration Carbamazepine 280 mg 09/22/18 22:00 09/25/18 21:20 Tegretol Oral Suspension - PO 280 mg BID ALEKSANDR Administration Chlorhexidine Gluconate 1 applic 09/22/18 22:00 09/25/18 21:20 Hibiclens For Decolonization - TP 1 applic HS ALEKSANDR Administration Cholecalciferol 2,000 unit 09/23/18 10:00 09/25/18 09:58 Vitamin D3 - GT 2,000 unit DAILY ALEKSANDR Administration Clonazepam 1 mg 09/22/18 22:00 09/26/18 05:23 Klonopin - GT 1 mg TID ALEKSANDR Administration Clonidine 0.2 mg 09/22/18 22:00 09/25/18 21:19 Catapres - PO 0.2 mg HS ALEKSANDR Administration Heparin Sodium (Porcine) 5,000 unit 09/22/18 22:00 09/25/18 21:20 Heparin - SQ 5,000 unit BID ALEKSANDR Administration Vancomycin HCl 750 mg/ 250 mls @ 166.667 mls/hr 09/22/18 22:00 09/25/18 21:19 Dextrose IVPB 166.667 mls/hr BID@1000,2200 ALEKSANDR Administration Protocol Piperacillin Sod/Tazobactam 50 mls @ 100 mls/hr 09/23/18 02:00 09/26/18 04:51 Sod 3.375 gm/ Dextrose IVPB 100 mls/hr Q8H-IV ALEKSANDR Administration Protocol Levetiracetam 1,500 mg 09/23/18 22:00 09/25/18 21:19 Keppra Injection - IVPB 1,500 mg BID ALEKSANDR Administration Lorazepam 1 mg 09/23/18 13:16 09/24/18 18:43 Ativan Injection - IVPUSH 1 mg Q6H PRN Administration seizures Mupirocin 1 applic 09/22/18 22:00 09/25/18 21:20 Bactroban Ointment (For Decolonization) - NS 09/27/18 21:59 1 applic BID ALEKSANDR Administration Pantoprazole Sodium 40 mg 09/22/18 15:30 09/25/18 09:57 Protonix Iv IVPUSH 40 mg DAILY ALEKSANDR Administration Scopolamine HBr 1 patch 09/22/18 14:15 09/25/18 13:18 Transderm-Scop - TD 1 patch Q72H ALEKSANDR Administration ASSESSMENT/PLAN: Patient is a 28 year old male with a significant past medical history of profound mental retardation, cerebral palsy, dysphagia, peg tube, seizures, hyponatremia and asthma. Patient is a resident at [facility]. He has had multiple admissions to [facility] for aspiration pneumonia. He comes in to the ED for shortness of breath and coughing up green mucus. In the ED he was noted to be with tachycardia and hypotension. He was intubated on admission, extubated on 2018. On admission patient developed a pneumothorax per chest xray and a pig tail connected to chest tube was placed. problem list ------- profound mental retardation microcephaly dysphagia, peg tube dependent seizures hyponatremia asthma aspiration pneumonia respiratory distress acute bronchitis rhabdo pneumothorax ------ ID: Severe Sepsis/likely secondary to aspiration pnemonia, vs cap vs. acute bronchitis - resolved. extubated 09/25/2018. bp stable. no fevers. repeat blood cultures pending, +1 positive blood culture with possible contaminant On zosyn and vanco per ID day 5 Pulm: Right pneumothrax. Chest tube placed in the ED. less than 90cc noted. sero sang. Neuro: Seizure history. no seizures since admission On keppra, tegretol, baclophen. Renal rhabdo. presents with elevated cpk, improving on ivf. On ivf. bun/creat normal limits Card: Rule out ACS troponins negative Tachycardia, in the setting of sepsis - resolved Functional Quadraplegia. He is a total care, and requires q2 position changes to prevent skin breakdown. fen NS @ 100/cchr monitor electrolytes tolerating jevity feeds disposition. full code. Visit type - Emergency Visit Emergency Visit: Yes ED Registration Date: 09/22/18 Care time: The patient presented to the Emergency Department on the above date and was hospitalized for further evaluation of their emergent condition. - New Patient This patient is new to me today: No - Critical Care Critical Care patient: Yes Total Critical Care Time (in minutes): 30 Critical Care Statement: The care of this patient involved high complexity decision making to prevent further life threatening deterioration of the patient 's condition and/or to evaluate & treat vital organ system(s) failure or risk of failure.
[2018-09-26 08:39] LABS: PHOSPHOROUS 3.6 mg/dL (2.5-4.9)
[2018-09-26] MEDS: HEPARIN NA (PORCINE) 5,000 UNITS/ML 1ML VIAL SQ SCH ×2 (09:00→21:46)
[2018-09-26] MEDS: PANTOPRAZOLE SODIUM 40 MG VIAL IVPUSH SCH (09:01)
[2018-09-26] MEDS: CHOLECALCIFEROL (VITAMIN D3) 1,000 UNIT TABLET (FP) GT SCH (09:14)
[2018-09-26] MEDS: carBAMazepine 200 MG/10 ML UNIT-DOSE CUP PO SCH ×2 (09:17→21:48)
[2018-09-26] MEDS ORDERED: BACITRACIN 15 GM TUBE TOPICAL OINTMENT TP SCH (10:00)
[2018-09-26] MEDS: MUPIROCIN 2% TOPICAL OINTMENT FOR DECOLONIZATION NS SCH ×2 (10:38→21:46)
[2018-09-26] MEDS: VANCOMYCIN 750 MG in DEXTROSE 5%-WATER - 250 ML IVPB SCH ×2 (10:39→21:45)
[2018-09-26] MEDS: levETIRAcetam 500 MG/5 ML INJECTION VIAL IVPB SCH ×2 (11:00→21:46)
--- NOTE | 2018-09-26 11:07 | PN ---
Teaching Attending Note Name of Resident: Rosemarie Marshall ATTENDING PHYSICIAN STATEMENT I saw and evaluated the patient. I reviewed the resident's note and discussed the case with the resident. I agree with the resident's findings and plan as documented. SUBJECTIVE: Patient seen and examined in the ICU. Remains extubated. Right pigtail remains to water seal. No pressors. Intake & Output 09/23/18 09/24/18 09/25/18 09/26/18 23:59 23:59 23:59 23:59 Intake Total 470 3445 2770 800 Output Total 400 1400 3500 Balance 70 2045 -730 800 Weight 104 lb 2 oz 104 lb 110 lb 12.8 oz 104 lb 3.2 oz Last Vital Signs Temp Pulse Resp BP Pulse Ox 98.7 F 80 17 112/55 L 96 09/26/18 06:00 09/26/18 07:52 09/26/18 07:52 09/26/18 07:52 09/26/18 07:52 Active Medications Acetaminophen (Ofirmev Injection -) 750 mg IVPB Q6H PRN PRN Reason: FEVER Last Admin: 09/23/18 14:57 Dose: 750 mg Aspirin (Asa -) 81 mg GT HS [facility] Last Admin: 09/25/18 21:19 Dose: 81 mg Bacitracin (Bacitracin -) 1 applic TP DAILY [facility] Last Admin: 09/26/18 08:59 Dose: 1 applic Baclofen (Lioresal -) 10 mg GT DAILY@0600,1200 [facility] Last Admin: 09/26/18 06:41 Dose: 10 mg Baclofen (Lioresal -) 20 mg GT DAILY@1800,0000 [facility] Last Admin: 09/26/18 00:36 Dose: 20 mg Carbamazepine (Tegretol Oral Suspension -) 280 mg PO BID [facility] Last Admin: 09/26/18 09:17 Dose: 280 mg Chlorhexidine Gluconate (Hibiclens For Decolonization -) 1 applic TP HS [facility] Last Admin: 09/25/18 21:20 Dose: 1 applic Cholecalciferol (Vitamin D3 -) 2,000 unit GT DAILY [facility] Last Admin: 09/26/18 09:14 Dose: 2,000 unit Clonazepam (Klonopin -) 1 mg GT TID [facility] Last Admin: 09/26/18 05:23 Dose: 1 mg Clonidine (Catapres -) 0.2 mg PO HS [facility] Last Admin: 09/25/18 21:19 Dose: 0.2 mg Heparin Sodium (Porcine) (Heparin -) 5,000 unit SQ BID [facility] Last Admin: 09/26/18 09:00 Dose: 5,000 unit Vancomycin HCl 750 mg/ (Dextrose) 250 mls @ 166.667 mls/hr IVPB BID@1000,2200 [facility]; Protocol Last Admin: 09/26/18 10:39 Dose: 166.667 mls/hr Piperacillin Sod/Tazobactam (Sod 3.375 gm/ Dextrose) 50 mls @ 100 mls/hr IVPB Q8H-IV ALEKSANDR; Protocol Last Admin: 09/26/18 09:14 Dose: 100 mls/hr Levetiracetam (Keppra Injection -) 1,500 mg IVPB BID [facility] Last Admin: 09/25/18 21:19 Dose: 1,500 mg Lorazepam (Ativan Injection -) 1 mg IVPUSH Q6H PRN PRN Reason: seizures Last Admin: 09/24/18 18:43 Dose: 1 mg Mupirocin (Bactroban Ointment (For Decolonization) -) 1 applic NS BID [facility] Stop: 09/27/18 21:59 Last Admin: 09/26/18 10:38 Dose: 1 applic Pantoprazole Sodium (Protonix Iv) 40 mg IVPUSH DAILY [facility] Last Admin: 09/26/18 09:01 Dose: 40 mg Scopolamine HBr (Transderm-Scop -) 1 patch TD Q72H [facility] Last Admin: 09/25/18 13:18 Dose: 1 patch OBJECTIVE: Gen: Extubated, NAD Heart: S1S2, regular Lung: scattered rhonchi, right pigtail catheter intact W/O an air leak Abd: soft, nontender Ext: contracted, no edema Laboratory Results - last 24 hr 09/26/18 09/26/18 05:15 05:15 WBC 5.8 RBC 3.56 L Hgb 10.8 L Hct 31.0 L MCV 87.0 MCH 30.4 MCHC 34.9 RDW 14.6 Plt Count 246 D MPV 7.5 Absolute Neuts (auto) 2.4 Neutrophils % 41.5 L D Lymphocytes % 40.7 H D Monocytes % 13.1 H D Eosinophils % 4.0 Basophils % 0.7 Nucleated RBC % 0 Sodium 144 Potassium 3.2 L Chloride 109 H Carbon Dioxide 30 Anion Gap 5 L BUN 10 Creatinine 0.6 Creat Clearance w eGFR > 60 Random Glucose 112 H Calcium 7.4 L Phosphorus 3.6 Magnesium 2.0 Total Bilirubin 0.3 AST 33 ALT 32 Alkaline Phosphatase 85 Total Protein 6.5 Albumin 2.5 L ASSESSMENT AND PLAN: Acute Respiratory Failure Pneumonia Right PTX: S/P Right pigtail catheter insertion Severe Sepsis Lactic Acidosis +Troponins likely Demand Ischemia Mental Retardation/Cerebral Palsy Seizure Disorder Asthma Functional Quadriplegia - Remove pigtail today - ABX coverage - Decrease free water intake - monitor urine output, creatinine - replete lytes - enteral feeds - Aspiration precautions - DVT/GI prophylaxis - Floor Dr Trevizo Critical care time spent in reviewing chart, evaluating patient and formulating plan 35 min
--- NOTE | 2018-09-26 11:24 | PN ---
Progress Note (short form) - Note Progress Note: SUBJECTIVE Patient seen and examined at the bedside. OBJECTIVE Vital Signs Temperature 98.7 F 09/26/18 06:00 Pulse Rate 80 09/26/18 07:52 Respiratory Rate 17 09/26/18 07:52 Blood Pressure 112/55 L 09/26/18 07:52 O2 Sat by Pulse Oximetry (%) 96 09/26/18 07:52 General: Awake, alert Head: No signs of trauma Eyes: EOMI, sclera anicteric ENT: Moist mucus membranes, copious secretions Neck: Normal ROM, supple Lungs: Scattered rhonchi Cardio: Regular rhythm, S1 and S2 present Abdomen: Soft, nontender Extremities: Distal pulses present SKIN: Warm, Dry, normal turgor Neurologic: Tracks with eyes ASSESSMENT 28yo M with PMH of MR, CP, Spastic quadriparesis, intractable seizures, cortical blindness, asthma presenting with respiratory distress and fever. Due to increased work of breathing, patient intubated while in the ED. Subclavian central line placed. CXR found to have right sided pneumothorax for which pigtail chest tube was placed. HOD#5. PLAN NEURO Chronic MR, CP, Spastic quadriparesis, intractable seizures, cortical blindness -Continue home meds PULM Respiratory distress likely due to aspiration pneumonia -Covered with Vanc/Zosyn -Extubated over the weekend -Satting 96 well on room air Pneumothorax -Pigtail chest tube placed -on water seal now -plan for chest tube removal with follow-up CXR CV Tpn negative EKG: rate 89, QTc 438, NSR, when compared with ECG of 08/11/18, ST no longer depressed in anterior leads ID Severe sepsis, likely due to aspiration pneumonia -given Vanc/Zosyn in the ED -consult for ID -lactate of 5.2 decreased to 1.0 -Follow blood cultures, no growth to date -Follow urine cultures, no growth to date -HIV, influenza negative. HCV pending RENAL ABG is within normal limits Rhabdomyolysis, resolving -CPK 2300>600 with normal BUN/Cr -Gently hydrate and repeat CPK in AM FEN Monitor electrolytes -Replete as needed -K low at 3.2, repleted Advanced to jevity diet over the weekend PPX -VTE: Heparin -GI: Protonix 40 #DISPO: Continue to monitor in the ICU
[2018-09-26] MEDS: ASPIRIN 81 MG CHEWABLE TABLETS GT SCH (21:45)
[2018-09-26] MEDS: cloNIDine HCL 0.1 MG TABLET PO SCH (21:45)
[2018-09-26] MEDS: CHLORHEXIDINE GLUCONATE 4% CLEANSER FOR DECOLONIZATION TP SCH (21:46)
[2018-09-27] MEDS ORDERED: DEXTROSE 5%-WATER - 50 ML IVPB ONE ×2 (00:07→08:49)
[2018-09-27] MEDS ORDERED: PIPERACILLIN/TAZOBACTAM 3.375 GM VIAL IVPB ONE ×2 (00:07→08:49)
[2018-09-27] MEDS: BACLOFEN 10 MG TABLET (FP) GT SCH ×4 (01:04→17:02)
[2018-09-27] MEDS: PIPERACILLIN/TAZOB 3.375 GM 3.375 GM in DEXTROSE 5%-WATER - 50 ML IVPB SCH ×2 (02:50→09:16)
[2018-09-27] MEDS: clonazePAM 0.5 MG TABLET GT SCH ×3 (05:22→23:16)
[2018-09-27 08:09] LABS: BASO % 0.5 % (0-2.0); EOS % 4.5 % (0-4.5); HEMATOCRIT 33.1 % (35.4-49); HEMOGLOBIN 11.3 GM/dL (11.7-16.9); MCH 29.7 pg (25.7-33.7); MCHC 34.3 g/dl (32.0-35.9); MEAN CELL VOLUME 86.6 fl (80-96); MEAN PLT VOLUME 7.5 fl (7.5-11.1); MONO % 14.1 % (3.8-10.2); NEUT % 48.9 % (42.8-82.8); PLATELET COUNT 263 K/MM3 (134-434); RBC 3.82 M/mm3 (4.00-5.60); RDW 14.7 % (11.9-15.9); WHITE BLOOD COUNT 6.2 K/mm3 (4.0-10.0)
[2018-09-27 08:32] LABS: ALBUMIN 2.9 g/dl (3.4-5.0); ALK PHOS 84 U/L (45-117); ANION GAP 5 MMOL/L (8-16); BILIRUBIN,TOTAL 0.4 mg/dL (0.2-1); BLOOD UREA NITROGEN 14 mg/dL (7-18); CALCIUM 8.2 mg/dL (8.5-10.1); CHLORIDE 105 mmol/L (98-107); CO2 30 mmol/L (21-32); CREATININE 0.8 mg/dL (0.55-1.3); GLUCOSE,RANDOM 84 mg/dL (74-106); MAGNESIUM 2.1 mg/dL (1.8-2.4); PHOSPHOROUS 4.2 mg/dL (2.5-4.9); POTASSIUM 3.8 mmol/L (3.5-5.1); SGOT/AST 24 U/L (15-37); SGPT/ALT 35 U/L (13-61); SODIUM 140 mmol/L (136-145); TOT PROT 7.4 g/dl (6.4-8.2)
[2018-09-27] MEDS: HEPARIN NA (PORCINE) 5,000 UNITS/ML 1ML VIAL SQ SCH ×2 (09:17→23:16)
[2018-09-27] MEDS: BACITRACIN 15 GM TUBE TOPICAL OINTMENT TP SCH (09:17)
[2018-09-27] MEDS: PANTOPRAZOLE SODIUM 40 MG VIAL IVPUSH SCH (09:17)
[2018-09-27] MEDS: CHOLECALCIFEROL (VITAMIN D3) 1,000 UNIT TABLET (FP) GT SCH ×2 (09:18→09:42)
[2018-09-27] MEDS: carBAMazepine 200 MG/10 ML UNIT-DOSE CUP PO SCH ×3 (09:18→23:17)
[2018-09-27] MEDS ORDERED: VANCOMYCIN 750 MG in DEXTROSE 5%-WATER - 250 ML IVPB SCH (10:00)
[2018-09-27] MEDS ORDERED: MUPIROCIN 2% TOPICAL OINTMENT FOR DECOLONIZATION NS SCH (10:00)
[2018-09-27] MEDS ORDERED: PT OWN MED DRAWER 7, Y5N ONE ×3 (10:27→22:07)
--- NOTE | 2018-09-27 10:40 | PN ---
Progress Note (short form) - Note Progress Note: PULMONARY Pt nonverbal, no fevers recorded. Vital Signs Period Temp Pulse Resp BP Sys/Don Pulse Ox Last 24 Hr 98.0 F-98.6 F 65-89 21-23 105-150/60-86 97-98 Gen: NAD at rest Heart: RRR Lung: decreased breath sounds at the bases Abd: soft, nontender Ext: no edema, contracted CBC, BMP 09/27/18 07:55 09/27/18 07:55 Active Medications Acetaminophen (Ofirmev Injection -) 750 mg IVPB Q6H PRN PRN Reason: FEVER Aspirin (Asa -) 81 mg GT HS [facility] Bacitracin (Bacitracin -) 1 applic TP DAILY [facility] Last Admin: 09/27/18 09:17 Dose: 1 applic Baclofen (Lioresal -) 10 mg GT DAILY@0600,1200 [facility] Last Admin: 09/27/18 05:22 Dose: 10 mg Baclofen (Lioresal -) 20 mg GT DAILY@1800,0000 [facility] Last Admin: 09/27/18 01:04 Dose: 20 mg Carbamazepine (Tegretol Oral Suspension -) 280 mg PO BID [facility] Last Admin: 09/27/18 09:38 Dose: Not Given Cholecalciferol (Vitamin D3 -) 2,000 unit GT DAILY [facility] Last Admin: 09/27/18 09:42 Dose: Not Given Clonazepam (Klonopin -) 1 mg GT TID [facility] Last Admin: 09/27/18 05:22 Dose: 1 mg Clonidine (Catapres -) 0.2 mg PO [facility] Heparin Sodium (Porcine) (Heparin -) 5,000 unit SQ BID [facility] Last Admin: 09/27/18 09:17 Dose: 5,000 unit Vancomycin HCl 750 mg/ (Dextrose) 250 mls @ 166.667 mls/hr IVPB BID@1000,2200 [facility]; Protocol Last Admin: 09/27/18 09:18 Dose: 166.667 mls/hr Piperacillin Sod/Tazobactam (Sod 3.375 gm/ Dextrose) 50 mls @ 100 mls/hr IVPB Q8H-IV [facility]; Protocol Last Admin: 09/27/18 09:16 Dose: 100 mls/hr Levetiracetam (Keppra Injection -) 1,500 mg IVPB BID [facility] Pantoprazole Sodium (Protonix Iv) 40 mg IVPUSH DAILY [facility] Last Admin: 09/27/18 09:17 Dose: 40 mg Scopolamine HBr (Transderm-Scop -) 1 patch TD Q72H ALEKSANDR A/P s/p Acute Respiratory Failure r/o Pneumonia Severe Sepsis resolving +Troponins likely Demand Ischemia Mental Retardation/Cerebral Palsy Seizure Disorder Asthma Functional Quadriplegia - continue antibiotics - monitor urine output, creatinine - aspiration precautions - DVT/GI prophylaxis
--- NOTE | 2018-09-27 10:50 | PN ---
Physical Exam: SUBJECTIVE: Patient seen and examined. He appear stable. coughing, no acute distress. Event: - G tube pulled out today, insertion site secured with qureshi. AM seizure meds not given. OBJECTIVE: Vital Signs Period Temp Pulse Resp BP Sys/Don Pulse Ox Last 24 Hr 98.0 F-98.6 F 65-89 21-23 105-150/60-86 97-98 PE Neuro: alert, awake, non verbal Pulm: + wet cough, diffuse rhonchi CV: s1 s2 rrr Abd: + pig tail now with qureshi inserted Ext: UE/LE contracture, Laboratory Results - last 24 hr 09/27/18 09/27/18 07:55 07:55 WBC 6.2 RBC 3.82 L Hgb 11.3 L Hct 33.1 L MCV 86.6 MCH 29.7 MCHC 34.3 RDW 14.7 Plt Count 263 MPV 7.5 Absolute Neuts (auto) 3.0 Neutrophils % 48.9 Lymphocytes % 32.0 D Monocytes % 14.1 H Eosinophils % 4.5 Basophils % 0.5 Nucleated RBC % 0 Sodium 140 Potassium 3.8 Chloride 105 Carbon Dioxide 30 Anion Gap 5 L BUN 14 Creatinine 0.8 Creat Clearance w eGFR > 60 Random Glucose 84 Calcium 8.2 L Phosphorus 4.2 Magnesium 2.1 Total Bilirubin 0.4 AST 24 ALT 35 Alkaline Phosphatase 84 Total Protein 7.4 Albumin 2.9 L Active Medications Generic Name Dose Route Start Last Admin Trade Name Freq PRN Reason Stop Dose Admin Acetaminophen 750 mg 09/26/18 23:15 Ofirmev Injection - IVPB Q6H PRN FEVER Aspirin 81 mg 09/27/18 22:00 Asa - GT HS ALEKSANDR Bacitracin 1 applic 09/27/18 10:00 09/27/18 09:17 Bacitracin - TP 1 applic DAILY ALEKSANDR Administration Baclofen 10 mg 09/27/18 06:00 09/27/18 05:22 Lioresal - GT 10 mg DAILY@0600,1200 ALEKSANDR Administration Baclofen 20 mg 09/27/18 00:00 09/27/18 01:04 Lioresal - GT 20 mg DAILY@1800,0000 ALEKSANDR Administration Carbamazepine 280 mg 09/27/18 10:00 09/27/18 09:38 Tegretol Oral Suspension - PO Not Given BID ALEKSANDR Cholecalciferol 2,000 unit 09/27/18 10:00 09/27/18 09:42 Vitamin D3 - GT Not Given DAILY ALEKSANDR Clonazepam 1 mg 09/27/18 06:00 09/27/18 05:22 Klonopin - GT 1 mg TID ALEKSANDR Administration Clonidine 0.2 mg 09/27/18 22:00 Catapres - PO HS ALEKSANDR Heparin Sodium (Porcine) 5,000 unit 09/27/18 10:00 09/27/18 09:17 Heparin - SQ 5,000 unit BID ALEKSANDR Administration Vancomycin HCl 750 mg/ 250 mls @ 166.667 mls/hr 09/27/18 10:00 09/27/18 09:18 Dextrose IVPB 166.667 mls/hr BID@1000,2200 ALEKSANDR Administration Protocol Piperacillin Sod/Tazobactam 50 mls @ 100 mls/hr 09/27/18 02:00 09/27/18 09:16 Sod 3.375 gm/ Dextrose IVPB 100 mls/hr Q8H-IV ALEKSANDR Administration Protocol Levetiracetam 1,500 mg 09/27/18 10:00 Keppra Injection - IVPB BID ALEKSANDR Pantoprazole Sodium 40 mg 09/27/18 10:00 09/27/18 09:17 Protonix Iv IVPUSH 40 mg DAILY ALEKSANDR Administration Scopolamine HBr 1 patch 09/28/18 14:15 Transderm-Scop - TD Q72H [facility] Microbiology 09/24/18 08:30 Blood Culture - Preliminary Blood - Peripheral Venous NO GROWTH OBTAINED AFTER 72 HOURS, INCUBATION TO CONTINUE FOR 2 DAYS. 09/24/18 08:30 Blood Culture - Preliminary Blood - Peripheral Venous NO GROWTH OBTAINED AFTER 72 HOURS, INCUBATION TO CONTINUE FOR 2 DAYS. 09/22/18 05:00 Blood Culture - Final Blood - Peripheral Venous NO GROWTH AFTER 5 DAYS INCUBATION Assessment: 28 year old male of [facility], with pmhx of profound mental retardation, cerebral palsy, dysphasia, peg tube, seizures, hyponatremia and asthma multiple admissions for aspiration PNA, admitted for shortness of breath and cough. Hospital course complicated by pneumothorax per chest xray and a pig tail connected to chest tube was placed, s/p intubation and extubation on 2018. Plan: 1. Dysphagia - Replace G tube today in IR - Resume tube feeds after 2. Acute Respiratory Failure - Resolved, s/p extubation 3. Severe Sepsis/likely secondary to aspiration pneumonia - Repeat BC NGTD - Continue antibiotics per ID (day 6) 4. R/O ACS - Trops downtrended; likely Demand Ischemia from above 5. Right pneumothroax - s/p pig tail removal 09/26 - Stable on RA 6. Seizure history - cont keppra, tegretol, baclophen 7. Rhabdo - Check CPK 8. Functional Quadraplegia. - Total care, and requires q2 position changes to prevent skin breakdown CODE STATUS: FULL CODE Visit type - Emergency Visit Emergency Visit: Yes ED Registration Date: 09/22/18 Care time: The patient presented to the Emergency Department on the above date and was hospitalized for further evaluation of their emergent condition. - New Patient This patient is new to me today: Yes Date on this admission: 09/27/18 - Critical Care Critical Care patient: No
[2018-09-27] MEDS: levETIRAcetam 500 MG/5 ML INJECTION VIAL IVPB SCH (13:02)
[2018-09-27] MEDS ORDERED: DEXTROSE 5%-WATER 100 ML IVPB ONE (17:37)
[2018-09-27] MEDS: CEFTRIAXONE 2 GM in DEXTROSE 5%-WATER 100 ML IVPB SCH (17:38)
[2018-09-27] MEDS ORDERED: CHLORHEXIDINE GLUCONATE 4% CLEANSER FOR DECOLONIZATION TP SCH (22:00)
[2018-09-27] MEDS: ASPIRIN 81 MG CHEWABLE TABLETS GT SCH (23:15)
[2018-09-27] MEDS: cloNIDine HCL 0.1 MG TABLET PO SCH (23:16)
[2018-09-28] MEDS: levETIRAcetam 500 MG/5 ML INJECTION VIAL IVPB SCH ×3 (01:41→22:15)
[2018-09-28] MEDS: BACLOFEN 10 MG TABLET (FP) GT SCH ×5 (01:42→23:46)
[2018-09-28] MEDS ORDERED: PT OWN MED DRAWER 7, Y5N ONE ×4 (06:01→21:39)
[2018-09-28] MEDS: clonazePAM 0.5 MG TABLET GT SCH ×3 (06:29→22:16)
[2018-09-28 07:58] LABS: ANION GAP 6 MMOL/L (8-16); BLOOD UREA NITROGEN 16 mg/dL (7-18); CALCIUM 8.3 mg/dL (8.5-10.1); CHLORIDE 110 mmol/L (98-107); CO2 29 mmol/L (21-32); CREATININE 0.7 mg/dL (0.55-1.3); GLUCOSE,RANDOM 107 mg/dL (74-106); POTASSIUM 3.8 mmol/L (3.5-5.1); SODIUM 144 mmol/L (136-145)
[2018-09-28] MEDS ORDERED: DEXTROSE 5%-WATER 100 ML IVPB ONE (08:57)
[2018-09-28] MEDS: PANTOPRAZOLE SODIUM 40 MG VIAL IVPUSH SCH (09:21)
[2018-09-28] MEDS: carBAMazepine 200 MG/10 ML UNIT-DOSE CUP PO SCH ×2 (09:21→22:17)
[2018-09-28] MEDS: CEFTRIAXONE 2 GM in DEXTROSE 5%-WATER 100 ML IVPB SCH (09:21)
[2018-09-28] MEDS: BACITRACIN 15 GM TUBE TOPICAL OINTMENT TP SCH (09:22)
[2018-09-28] MEDS: CHOLECALCIFEROL (VITAMIN D3) 1,000 UNIT TABLET (FP) GT SCH (09:22)
[2018-09-28] MEDS: HEPARIN NA (PORCINE) 5,000 UNITS/ML 1ML VIAL SQ SCH ×2 (09:22→22:16)
--- NOTE | 2018-09-28 12:41 | PN ---
Progress Note (short form) - Note Progress Note: Subjective: The patient was seen and examined at the bedside, he is non-verbal. Current Medications Generic Name Dose Route Start Last Admin Trade Name Freq PRN Reason Stop Dose Admin Acetaminophen 750 mg 09/26/18 23:15 09/28/18 13:15 Ofirmev Injection - IVPB 750 mg Q6H PRN Administration FEVER Albuterol Sulfate 1 amp 09/28/18 11:54 Ventolin 0.083% Nebulizer Soln - NEB Q4H PRN SHORT OF BREATH/WHEEZING Aspirin 81 mg 09/27/18 22:00 09/27/18 23:15 Asa - GT 81 mg HS ALEKSANDR Administration Bacitracin 1 applic 09/27/18 10:00 09/28/18 09:22 Bacitracin - TP 1 applic DAILY ALEKSANDR Administration Baclofen 10 mg 09/27/18 06:00 09/28/18 11:35 Lioresal - GT 10 mg DAILY@0600,1200 [facility] Administration Baclofen 20 mg 09/27/18 00:00 09/28/18 01:42 Lioresal - GT 20 mg DAILY@1800,0000 [facility] Administration Carbamazepine 280 mg 09/27/18 10:00 09/28/18 09:21 Tegretol Oral Suspension - PO 280 mg BID ALEKSANDR Administration Cholecalciferol 2,000 unit 09/27/18 10:00 09/28/18 09:22 Vitamin D3 - GT 2,000 unit DAILY A[facility]KSANDR Administration Clonazepam 1 mg 09/27/18 06:00 09/28/18 13:15 Klonopin - GT 1 mg TID A[facility]KSANDR Administration Clonidine 0.2 mg 09/27/18 22:00 09/27/18 23:16 Catapres - PO 0.2 mg HS ALEKSANDR Administration Heparin Sodium (Porcine) 5,000 unit 09/27/18 10:00 09/28/18 09:22 Heparin - SQ 5,000 unit BID A[facility]KSAN[facility] Administration Ceftriaxone Sodium 2 gm/ 100 mls @ 200 mls/hr 09/27/18 15:30 09/28/18 09:21 Dextrose IVPB 200 mls/hr DAILY ALEKSAN[facility] Administration Protocol Levetiracetam 1,500 mg 09/27/18 10:00 09/28/18 09:21 Keppra Injection - IVPB 1,500 mg BID A[facility]KSAN[facility] Administration Pantoprazole Sodium 40 mg 09/27/18 10:00 09/28/18 09:21 Protonix Iv IVPUSH 40 mg DAILY [facility] Administration Scopolamine HBr 1 patch 09/28/18 14:15 09/28/18 13:15 Transderm-Scop - TD 1 patch Q72H [facility]AN[facility] Administration Objective: Vital Signs Period Temp Pulse Resp BP Sys/Don Pulse Ox Last 24 Hr 98.5 F-100.3 F 77-123 18-20 109-144/53-92 97-98 Physical Exam: General: NAD Lungs: Diffuse rhonchi Heart: RRR, S1S2 Abd: G-tube in place Ext: Upper and lower extremity contractions CBCD WBC 6.2 K/mm3 (4.0-10.0) 09/27/18 07:55 RBC 3.82 M/mm3 (4.00-5.60) L 09/27/18 07:55 Hgb 11.3 GM/dL (11.7-16.9) L 09/27/18 07:55 Hct 33.1 % (35.4-49) L 09/27/18 07:55 MCV 86.6 fl (80-96) 09/27/18 07:55 MCHC 34.3 g/dl (32.0-35.9) 09/27/18 07:55 RDW 14.7 % (11.9-15.9) 09/27/18 07:55 Plt Count 263 K/MM3 (134-434) 09/27/18 07:55 MPV 7.5 fl (7.5-11.1) 09/27/18 07:55 CMP Sodium 144 mmol/L (136-145) 09/28/18 06:30 Potassium 3.8 mmol/L (3.5-5.1) 09/28/18 06:30 Chloride 110 mmol/L (98-107) H 09/28/18 06:30 Carbon Dioxide 29 mmol/L (21-32) 09/28/18 06:30 Anion Gap 6 MMOL/L (8-16) L 09/28/18 06:30 BUN 16 mg/dL (7-18) 09/28/18 06:30 Creatinine 0.7 mg/dL (0.55-1.3) 09/28/18 06:30 Creat Clearance w eGFR > 60 (>60) 09/28/18 06:30 Random Glucose 107 mg/dL (74-106) H 09/28/18 06:30 Calcium 8.3 mg/dL (8.5-10.1) L 09/28/18 06:30 Total Bilirubin 0.4 mg/dL (0.2-1) 09/27/18 07:55 AST 24 U/L (15-37) 09/27/18 07:55 ALT 35 U/L (13-61) 09/27/18 07:55 Alkaline Phosphatase 84 U/L (45-117) 09/27/18 07:55 Total Protein 7.4 g/dl (6.4-8.2) 09/27/18 07:55 Albumin 2.9 g/dl (3.4-5.0) L 09/27/18 07:55 CARDIAC ENZYMES Creatine Kinase 528 U/L (26-308) H 09/28/18 06:30 Troponin I < 0.02 ng/ml (0.00-0.05) 09/22/18 21:00 Microbiology 09/24/18 08:30 Blood - Peripheral Venous Blood Culture - Preliminary NO GROWTH OBTAINED AFTER 96 HOURS, INCUBATION TO CONTINUE FOR 1 DAYS. 09/24/18 08:30 Blood - Peripheral Venous Blood Culture - Preliminary NO GROWTH OBTAINED AFTER 96 HOURS, INCUBATION TO CONTINUE FOR 1 DAYS. 09/22/18 05:00 Blood - Peripheral Venous Blood Culture - Final NO GROWTH AFTER 5 DAYS INCUBATION 09/22/18 14:00 Sputum - Endotrachea Suction/Ventilator Gram Stain - Final 09/22/18 14:00 Sputum - Endotrachea Suction/Ventilator Sputum Culture - Final Moraxella (Bran.) Catarrhalis 09/22/18 05:00 Blood - Peripheral Venous Blood Culture - Final Dermabacter Hominis 09/22/18 05:47 Urine - Urine Clean Catch Urine Culture - Final NO GROWTH OBTAINED 09/22/18 14:00 Urine For Antigen Detection Legionella Antigen - Final 09/22/18 14:00 Urine For Antigen Detection Streptococcus pneumoniae Antigen (M - Final Assessment: This is a 28 year old male of [facility], with PMHx of profound mental retardation, cerebral palsy, dysphasia, peg tube, seizures, hyponatremia and asthma multiple admissions for aspiration PNA, admitted for shortness of breath and cough. Hospital course complicated by pneumothorax per chest xray s/ p intubation and extubation on 09/25/2018. Plan: 1) Severe sepsis likely 2/2 aspiration pneumonia - 1/2 blood culture vials + for dermabacer hominis - Repeat blood cultures with NGTD - Tmax 100.3 - Continue Ceftriaxone - Appreciate ID consult 2) G-tube displacement - Replaced yesterday - Resumed on tube feeds yesterday 3) Acute Respiratory Failure - Resolved, s/p extubation 4) Right pneumothroax - s/p pig tail removal 09/26 - Stable on RA 5) Rhabdo - CPK continues to downtrend, continue to monitor 6) Seizure disorder - cont keppra, tegretol, baclophen 7) R/O ACS - Trops downtrended; likely Demand Ischemia from above 8) Functional Quadraplegia. - Total care, and requires q2 position changes to prevent skin breakdown CODE STATUS: FULL CODE Visit type - Emergency Visit Emergency Visit: Yes ED Registration Date: 09/22/18 Care time: The patient presented to the Emergency Department on the above date and was hospitalized for further evaluation of their emergent condition. - New Patient This patient is new to me today: Yes Date on this admission: 09/28/18 - Critical Care Critical Care patient: No
[2018-09-28] MEDS: SCOPOLAMINE HYDROBROMIDE 1 PATCH PATCH.TD72 TD SCH (13:15)
[2018-09-28] MEDS: ACETAMINOPHEN 1000 MG/100 ML VIAL (NON FORMULARY) IVPB PRN (13:15)
--- NOTE | 2018-09-28 14:31 | PN ---
Progress Note, Physician History of Present Illness: pulmonary awake,no distress,less congestion - Current Medication List Current Medications: Active Medications Acetaminophen (Ofirmev Injection -) 750 mg IVPB Q6H PRN PRN Reason: FEVER Last Admin: 09/28/18 13:15 Dose: 750 mg Albuterol Sulfate (Ventolin 0.083% Nebulizer Soln -) 1 amp NEB Q4H PRN PRN Reason: SHORT OF BREATH/WHEEZING Aspirin (Asa -) 81 mg GT HS [facility] Last Admin: 09/27/18 23:15 Dose: 81 mg Bacitracin (Bacitracin -) 1 applic TP DAILY [facility] Last Admin: 09/28/18 09:22 Dose: 1 applic Baclofen (Lioresal -) 10 mg GT DAILY@0600,1200 [facility] Last Admin: 09/28/18 11:35 Dose: 10 mg Baclofen (Lioresal -) 20 mg GT DAILY@1800,0000 [facility] Last Admin: 09/28/18 01:42 Dose: 20 mg Carbamazepine (Tegretol Oral Suspension -) 280 mg PO BID [facility] Last Admin: 09/28/18 09:21 Dose: 280 mg Cholecalciferol (Vitamin D3 -) 2,000 unit GT DAILY [facility] Last Admin: 09/28/18 09:22 Dose: 2,000 unit Clonazepam (Klonopin -) 1 mg GT TID [facility] Last Admin: 09/28/18 13:15 Dose: 1 mg Clonidine (Catapres -) 0.2 mg PO HS [facility] Last Admin: 09/27/18 23:16 Dose: 0.2 mg Heparin Sodium (Porcine) (Heparin -) 5,000 unit SQ BID [facility] Last Admin: 09/28/18 09:22 Dose: 5,000 unit Ceftriaxone Sodium 2 gm/ (Dextrose) 100 mls @ 200 mls/hr IVPB DAILY [facility]; Protocol Last Admin: 09/28/18 09:21 Dose: 200 mls/hr Levetiracetam (Keppra Injection -) 1,500 mg IVPB BID [facility] Last Admin: 09/28/18 09:21 Dose: 1,500 mg Pantoprazole Sodium (Protonix Iv) 40 mg IVPUSH DAILY [facility] Last Admin: 09/28/18 09:21 Dose: 40 mg Scopolamine HBr (Transderm-Scop -) 1 patch TD Q72H [facility] Last Admin: 09/28/18 13:15 Dose: 1 patch - Objective Vital Signs: Vital Signs Temperature 100.3 F H 09/28/18 13:18 Pulse Rate 123 H 09/28/18 13:18 Respiratory Rate 20 09/28/18 13:18 Blood Pressure 128/92 09/28/18 13:18 O2 Sat by Pulse Oximetry (%) 97 09/28/18 09:00 Constitutional: Yes: Calm, Thin Eyes: Yes: WNL HENT: Yes: WNL Neck: Yes: WNL Cardiovascular: Yes: Regular Rate and Rhythm, S1, S2 Respiratory: Yes: Rhonchi (scattered kristie rhonchi) Gastrointestinal: Yes: Normal Bowel Sounds, Soft Extremities: Yes: Other (contracted) Edema: No Labs: CBC, BMP 09/27/18 07:55 09/28/18 06:30 INR, PTT INR 1.40 (0.83-1.09) H 09/23/18 07:50 Problem List - Problems (1) Fever Code(s): R50.9 - FEVER, UNSPECIFIED (2) Sepsis Code(s): A41.9 - SEPSIS, UNSPECIFIED ORGANISM Qualifiers: Sepsis type: sepsis due to unspecified organism Qualified Code(s): A41.9 - Sepsis, unspecified organism (3) Tachycardia Code(s): R00.0 - TACHYCARDIA, UNSPECIFIED (4) Gastrostomy tube dysfunction Code(s): K94.23 - GASTROSTOMY MALFUNCTION (5) Cerebral palsy Code(s): G80.9 - CEREBRAL PALSY, UNSPECIFIED Qualifiers: Cerebral palsy type: unspecified type Qualified Code(s): G80.9 - Cerebral palsy, unspecified (6) Seizure Code(s): R56.9 - UNSPECIFIED CONVULSIONS (7) Asthma Code(s): J45.909 - UNSPECIFIED ASTHMA, UNCOMPLICATED Assessment/Plan A/P s/p Acute Respiratory Failure r/o Pneumonia Severe Sepsis resolving +Troponins likely Demand Ischemia Mental Retardation/Cerebral Palsy Seizure Disorder Asthma Functional Quadriplegia - continue antibiotics - monitor urine output, creatinine - aspiration precautions - DVT/GI prophylaxis DR WALSH
--- NOTE | 2018-09-28 19:08 | EKG ---
Test Reason : Blood Pressure : / mmHG Vent. Rate : 104 BPM Atrial Rate : 104 BPM P-R Int : 136 ms QRS Dur : 084 ms QT Int : 342 ms P-R-T Axes : 051 060 038 degrees QTc Int : 449 ms SINUS TACHYCARDIA INFERIOR-POSTERIOR INFARCT (CITED ON OR BEFORE 19-JAN-2015) ABNORMAL ECG WHEN COMPARED WITH ECG OF 22-SEP-2018 07:51, NON-SPECIFIC CHANGE IN ST SEGMENT IN ANTERIOR LEADS Confirmed by FELIZ BOWLES MD ([id number]) on 09/28/2018 7:08:33 PM Referred By: GAYLA MADSEN Confirmed By:FELIZ BOWLES MD
[2018-09-28] MEDS: cloNIDine HCL 0.1 MG TABLET PO SCH (22:16)
[2018-09-28] MEDS: ASPIRIN 81 MG CHEWABLE TABLETS GT SCH (22:16)
[2018-09-29] MEDS ORDERED: PT OWN MED DRAWER 7, Y5N ONE (04:43)
[2018-09-29] MEDS: BACLOFEN 10 MG TABLET (FP) GT SCH ×4 (05:45→23:55)
[2018-09-29] MEDS: clonazePAM 0.5 MG TABLET GT SCH ×3 (05:45→22:10)
[2018-09-29 08:45] LABS: BASO % 0.5 % (0-2.0); EOS % 3.7 % (0-4.5); HEMATOCRIT 32.6 % (35.4-49); HEMOGLOBIN 11.3 GM/dL (11.7-16.9); LYMPH % 28.9 % (8-40); MCH 30.4 pg (25.7-33.7); MCHC 34.6 g/dl (32.0-35.9); MEAN CELL VOLUME 87.9 fl (80-96); MEAN PLT VOLUME 7.6 fl (7.5-11.1); NEUT % 54.9 % (42.8-82.8); PLATELET COUNT 297 K/MM3 (134-434); RDW 14.9 % (11.9-15.9); WHITE BLOOD COUNT 8.3 K/mm3 (4.0-10.0)
[2018-09-29] MEDS ORDERED: DEXTROSE 5%-WATER 100 ML IVPB ONE (09:03)
[2018-09-29 09:15] LABS: ALBUMIN 2.8 g/dl (3.4-5.0); ALK PHOS 72 U/L (45-117); ANION GAP 8 MMOL/L (8-16); BILIRUBIN,TOTAL 0.2 mg/dL (0.2-1); BLOOD UREA NITROGEN 20 mg/dL (7-18); CALCIUM 8.7 mg/dL (8.5-10.1); CHLORIDE 112 mmol/L (98-107); CO2 26 mmol/L (21-32); CREATININE 0.6 mg/dL (0.55-1.3); GLUCOSE,RANDOM 97 mg/dL (74-106); POTASSIUM 3.8 mmol/L (3.5-5.1); SGOT/AST 12 U/L (15-37); SGPT/ALT 26 U/L (13-61); SODIUM 146 mmol/L (136-145); TOT PROT 7.1 g/dl (6.4-8.2)
[2018-09-29] MEDS: HEPARIN NA (PORCINE) 5,000 UNITS/ML 1ML VIAL SQ SCH ×2 (10:04→22:10)
[2018-09-29] MEDS: BACITRACIN 15 GM TUBE TOPICAL OINTMENT TP SCH (10:04)
[2018-09-29] MEDS: levETIRAcetam 500 MG/5 ML INJECTION VIAL IVPB SCH ×2 (10:13→22:09)
[2018-09-29] MEDS: PANTOPRAZOLE SODIUM 40 MG VIAL IVPUSH SCH (10:18)
[2018-09-29] MEDS: CHOLECALCIFEROL (VITAMIN D3) 1,000 UNIT TABLET (FP) GT SCH (10:19)
[2018-09-29] MEDS: carBAMazepine 200 MG/10 ML UNIT-DOSE CUP PO SCH ×2 (10:19→22:10)
--- NOTE | 2018-09-29 10:29 | PN ---
Progress Note (short form) - Note Progress Note: PULMONARY Pt nonverbal, no fevers recorded. Vital Signs Period Temp Pulse Resp BP Sys/Don Pulse Ox Last 24 Hr 98.2 F-100.3 F 79-123 20-20 108-130/59-92 98 Gen: NAD at rest Heart: RRR Lung: decreased breath sounds at the bases Abd: soft, nontender Ext: no edema, contracted CBC, BMP 09/29/18 08:32 09/29/18 08:32 Active Medications Acetaminophen (Ofirmev Injection -) 750 mg IVPB Q6H PRN PRN Reason: FEVER Last Admin: 09/28/18 13:15 Dose: 750 mg Albuterol Sulfate (Ventolin 0.083% Nebulizer Soln -) 1 amp NEB Q4H PRN PRN Reason: SHORT OF BREATH/WHEEZING Aspirin (Asa -) 81 mg GT HS [facility] Last Admin: 09/28/18 22:16 Dose: 81 mg Bacitracin (Bacitracin -) 1 applic TP DAILY [facility] Last Admin: 09/29/18 10:04 Dose: 1 applic Baclofen (Lioresal -) 10 mg GT DAILY@0600,1200 [facility] Last Admin: 09/29/18 05:45 Dose: 10 mg Baclofen (Lioresal -) 20 mg GT DAILY@1800,0000 [facility] Last Admin: 09/28/18 23:46 Dose: 20 mg Carbamazepine (Tegretol Oral Suspension -) 280 mg PO BID [facility] Last Admin: 09/29/18 10:19 Dose: 280 mg Cholecalciferol (Vitamin D3 -) 2,000 unit GT DAILY [facility] Last Admin: 09/29/18 10:19 Dose: 2,000 unit Clonazepam (Klonopin -) 1 mg GT TID [facility] Last Admin: 09/29/18 05:45 Dose: 1 mg Clonidine (Catapres -) 0.2 mg PO HS [facility] Last Admin: 09/28/18 22:16 Dose: 0.2 mg Heparin Sodium (Porcine) (Heparin -) 5,000 unit SQ BID [facility] Last Admin: 09/29/18 10:04 Dose: 5,000 unit Ceftriaxone Sodium 2 gm/ (Dextrose) 100 mls @ 200 mls/hr IVPB DAILY [facility]; Protocol Last Admin: 09/28/18 09:21 Dose: 200 mls/hr Levetiracetam (Keppra Injection -) 1,500 mg IVPB BID [facility] Last Admin: 09/29/18 10:13 Dose: 1,500 mg Pantoprazole Sodium (Protonix Iv) 40 mg IVPUSH DAILY [facility] Last Admin: 09/29/18 10:18 Dose: 40 mg Scopolamine HBr (Transderm-Scop -) 1 patch TD Q72H [facility] Last Admin: 09/28/18 13:15 Dose: 1 patch A/P s/p Acute Respiratory Failure r/o Pneumonia Severe Sepsis resolving +Troponins likely Demand Ischemia Mental Retardation/Cerebral Palsy Seizure Disorder Asthma Functional Quadriplegia - complete antibiotics - monitor urine output, creatinine - aspiration precautions - DVT/GI prophylaxis
[2018-09-29] MEDS: CEFTRIAXONE 2 GM in DEXTROSE 5%-WATER 100 ML IVPB SCH (11:31)
--- NOTE | 2018-09-29 11:50 | PN ---
Physical Exam: SUBJECTIVE: Patient seen and examined. No acute distress this AM. OBJECTIVE: Vital Signs Period Temp Pulse Resp BP Sys/Don Pulse Ox Last 24 Hr 98.2 F-100.3 F 79-123 20-20 108-130/59-92 98 PE Neuro: alert, awake, non verbal Pulm: diffuse rhonchi CV: s1 s2 rrr Abd: + pig tail now with qureshi inserted Ext: UE/LE contracture, warm Laboratory Results - last 24 hr 09/29/18 09/29/18 08:32 08:32 WBC 8.3 RBC 3.70 L Hgb 11.3 L Hct 32.6 L MCV 87.9 MCH 30.4 MCHC 34.6 RDW 14.9 Plt Count 297 MPV 7.6 Absolute Neuts (auto) 4.5 Neutrophils % 54.9 Lymphocytes % 28.9 Monocytes % 12.0 H Eosinophils % 3.7 Basophils % 0.5 Nucleated RBC % 0 Sodium 146 H Potassium 3.8 Chloride 112 H Carbon Dioxide 26 Anion Gap 8 BUN 20 H Creatinine 0.6 Creat Clearance w eGFR > 60 Random Glucose 97 Calcium 8.7 Total Bilirubin 0.2 AST 12 L ALT 26 Alkaline Phosphatase 72 Creatine Kinase 415 H Creatine Kinase Index 0.5 CK-MB (CK-2) 2.3 Total Protein 7.1 Albumin 2.8 L Active Medications Generic Name Dose Route Start Last Admin Trade Name Freq PRN Reason Stop Dose Admin Acetaminophen 750 mg 09/26/18 23:15 09/28/18 13:15 Ofirmev Injection - IVPB 750 mg Q6H PRN Administration FEVER Albuterol Sulfate 1 amp 09/28/18 11:54 Ventolin 0.083% Nebulizer Soln - NEB Q4H PRN SHORT OF BREATH/WHEEZING Aspirin 81 mg 09/27/18 22:00 09/28/18 22:16 Asa - GT 81 mg HS [facility]KSANDR Administration Bacitracin 1 applic 09/27/18 10:00 09/29/18 10:04 Bacitracin - TP 1 applic DAILY A[facility]KSANDR Administration Baclofen 10 mg 09/27/18 06:00 09/29/18 05:45 Lioresal - GT 10 mg DAILY@0600,1200 A[facility]ANDR Administration Baclofen 20 mg 09/27/18 00:00 09/28/18 23:46 Lioresal - GT 20 mg DAILY@1800,0000 [facility]AN[facility] Administration Carbamazepine 280 mg 09/27/18 10:00 09/29/18 10:19 Tegretol Oral Suspension - PO 280 mg BID [facility]ANDR Administration Cholecalciferol 2,000 unit 09/27/18 10:00 09/29/18 10:19 Vitamin D3 - GT 2,000 unit DAILY A[facility]KSANDR Administration Clonazepam 1 mg 09/27/18 06:00 09/29/18 05:45 Klonopin - GT 1 mg TID A[facility]KSANDR Administration Clonidine 0.2 mg 09/27/18 22:00 09/28/18 22:16 Catapres - PO 0.2 mg HS [facility]KSANDR Administration Heparin Sodium (Porcine) 5,000 unit 09/27/18 10:00 09/29/18 10:04 Heparin - SQ 5,000 unit BID A[facility]KSANDR Administration Ceftriaxone Sodium 2 gm/ 100 mls @ 200 mls/hr 09/27/18 15:30 09/29/18 11:31 Dextrose IVPB 200 mls/hr DAILY [facility]AN[facility] Administration Protocol Levetiracetam 1,500 mg 09/27/18 10:00 09/29/18 10:13 Keppra Injection - IVPB 1,500 mg BID A[facility]ANDR Administration Pantoprazole Sodium 40 mg 09/27/18 10:00 09/29/18 10:18 Protonix Iv IVPUSH 40 mg DAILY [facility]AN[facility] Administration Scopolamine HBr 1 patch 09/28/18 14:15 09/28/18 13:15 Transderm-Scop - TD 1 patch Q72H [facility]AN[facility] Administration Microbiology 09/24/18 08:30 Blood Culture - Final Blood - Peripheral Venous NO GROWTH AFTER 5 DAYS INCUBATION 09/24/18 08:30 Blood Culture - Final Blood - Peripheral Venous NO GROWTH AFTER 5 DAYS INCUBATION Assessment: This is a 28 year old male of [facility], with PMHx of profound mental retardation, cerebral palsy, dysphasia, peg tube, seizures, hyponatremia and asthma multiple admissions for aspiration PNA, admitted for shortness of breath and cough. Hospital course complicated by pneumothorax per chest xray s/ p intubation and extubation on 09/25/2018. Plan: 1. Severe sepsis likely 2/2 aspiration pneumonia - Afebrile overnight - Continue Ceftriaxone (2 day) - ID following 2. G-tube displacement - Replaced 09/27 - Resumed on tube feeds 3. Acute Respiratory Failure - Resolved, s/p extubation 4. Right pneumothroax - s/p pig tail removal 09/26 - Stable on RA 5. Rhabdo - CPK significant improvement, trend 6. Seizure disorder - Cont keppra, tegretol, baclophen 7. R/O ACS - Trops downtrended; likely Demand Ischemia from above 8. Functional Quadraplegia. - Total care, and requires q2 position changes to prevent skin breakdown 9. Mild Hypernatremia - Monitor CODE STATUS: FULL CODE Visit type - Emergency Visit Emergency Visit: Yes ED Registration Date: 09/22/18 Care time: The patient presented to the Emergency Department on the above date and was hospitalized for further evaluation of their emergent condition. - New Patient This patient is new to me today: No - Critical Care Critical Care patient: No
[2018-09-29] MEDS ORDERED: ACETAMINOPHEN 650 MG SUPP.RECT PR ONE (21:13)
--- NOTE | 2018-09-29 21:28 | RAPID ---
Physical Examination Vital Signs: Vital Signs Temperature 98.9 F 09/29/18 17:59 Pulse Rate 116 H 09/29/18 17:59 Respiratory Rate 20 09/29/18 17:59 Blood Pressure 124/69 09/29/18 17:59 O2 Sat by Pulse Oximetry (%) 97 09/29/18 09:00 Constitutional: Yes: Anxious Eyes: Yes: WNL HENT: Yes: Atraumatic Neck: Yes: Supple Cardiovascular: Yes: Tachycardia Respiratory: Yes: Wheezes Gastrointestinal: Yes: Soft Peripheral Pulses WNL: Yes Neurological: Yes: Other (nonverbal) Labs: CBC, BMP 09/29/18 08:32 09/29/18 08:32 Rapid Response - Rapid Response Assessment: Rapid response called at approx 9pm as pt was noted to be tachycardic with HR into 170's. Also appeared to be in distress. Team arrived at bedside. Vitals 102.1F rectal temp 134/78 mmHg HR 170 on arrival, recheck 136bpm. sat 100% on RA PE GENERAL: in mild distress, intermittently coughing HEENT: microcephalic, atraumatic. PERRL NECK: supple CARDIO: +tachycardic rate. no r/m/g PULM: +inspiratory wheezes appreciated anteriorly. without crackles ABDOMEN: soft, NTND EXT: no edema, contracted Plan 28 y/o M with hx CP who was tx for septic shock, aspiration PNA, recently transferred to floor from ICU with tachycardia. -will do septic w/u: start on 1/2 NS as mildly elevated Na 100 cc/hr. -tachycardic likely 2/2 sepsis, fever. will see how responds to IVF, tylenol suppository 650mg given x 1 . -will start on vanc 1g IVPB qd, zosyn 4.5 q6h to tx for HCAP as pt from intermediate. had recently been on rocephin day 2 prior -f/u lactic, CXR -f/u repeat ucx, blood cx
[2018-09-29] MEDS ORDERED: VANCOMYCIN 1 GRAM (PRE-DOCKED) 1,000 MG/250 ML BAG IVPB SCH (21:30)
[2018-09-29] MEDS ORDERED: PIPERACILLIN/TAZOB 4.5 GM 4.5 GM in DEXTROSE 5%-WATER 100 ML IVPB SCH (21:30)
[2018-09-29] MEDS: SODIUM CHLORIDE 0.45% 1,000 ML IV SCH (22:10)
[2018-09-29] MEDS: cloNIDine HCL 0.1 MG TABLET PO SCH (22:10)
[2018-09-29] MEDS: ASPIRIN 81 MG CHEWABLE TABLETS GT SCH (22:10)
[2018-09-30] MEDS ORDERED: DEXTROSE 5%-WATER 100 ML IVPB ONE ×4 (02:37→20:42)
[2018-09-30] MEDS ORDERED: PIPERACILLIN/TAZOBACTAM 4.5 GM VIAL IVPB ONE ×4 (02:37→20:42)
[2018-09-30] MEDS: PIPERACILLIN/TAZOB 4.5 GM 4.5 GM in DEXTROSE 5%-WATER 100 ML IVPB SCH ×4 (03:33→21:48)
[2018-09-30] MEDS: clonazePAM 0.5 MG TABLET GT SCH ×3 (05:55→21:52)
[2018-09-30] MEDS: BACLOFEN 10 MG TABLET (FP) GT SCH ×3 (05:55→17:17)
[2018-09-30 07:22] LABS: ANION GAP 7 MMOL/L (8-16); BLOOD UREA NITROGEN 18 mg/dL (7-18); CALCIUM 7.8 mg/dL (8.5-10.1); CHLORIDE 104 mmol/L (98-107); CO2 27 mmol/L (21-32); CREATININE 0.6 mg/dL (0.55-1.3); GLUCOSE,RANDOM 78 mg/dL (74-106); POTASSIUM 3.8 mmol/L (3.5-5.1); SODIUM 137 mmol/L (136-145)
[2018-09-30] MEDS: ALBUTEROL SO4 0.083% IH SOL 2.5 MG/3 ML VIAL.NEB. NEB PRN ×2 (07:36→23:34)
--- NOTE | 2018-09-30 08:13 | PN ---
Progress Note, Physician Chief Complaint: No interval changes History of Present Illness: 28 year old male with a significant past medical history of profound mental retardation, cerebral palsy, dysphagia, peg tube, seizures, hyponatremia and asthma. Patient is a resident at [facility]. He has had multiple admissions to [facility] for aspiration pneumonia. He comes in to the ED for shortness of breath and coughing up green mucus. In the ED he was noted to be with tachycardia and hypotension.Developed Pneumothorax Rt sided - Current Medication List Current Medications: Active Medications Acetaminophen (Ofirmev Injection -) 750 mg IVPB Q6H PRN PRN Reason: FEVER Last Admin: 09/28/18 13:15 Dose: 750 mg Albuterol Sulfate (Ventolin 0.083% Nebulizer Soln -) 1 amp NEB Q4H PRN PRN Reason: SHORT OF BREATH/WHEEZING Last Admin: 09/30/18 07:36 Dose: 1 amp Aspirin (Asa -) 81 mg GT HS [facility] Last Admin: 09/29/18 22:10 Dose: 81 mg Bacitracin (Bacitracin -) 1 applic TP DAILY [facility] Last Admin: 09/29/18 10:04 Dose: 1 applic Baclofen (Lioresal -) 10 mg GT DAILY@0600,1200 [facility] Last Admin: 09/30/18 05:55 Dose: 10 mg Baclofen (Lioresal -) 20 mg GT DAILY@1800,0000 [facility] Last Admin: 09/29/18 23:55 Dose: 20 mg Carbamazepine (Tegretol Oral Suspension -) 280 mg PO BID [facility] Last Admin: 09/29/18 22:10 Dose: 280 mg Cholecalciferol (Vitamin D3 -) 2,000 unit GT DAILY [facility] Last Admin: 09/29/18 10:19 Dose: 2,000 unit Clonazepam (Klonopin -) 1 mg GT TID [facility] Last Admin: 09/30/18 05:55 Dose: 1 mg Clonidine (Catapres -) 0.2 mg PO HS [facility] Last Admin: 09/29/18 22:10 Dose: 0.2 mg Heparin Sodium (Porcine) (Heparin -) 5,000 unit SQ BID [facility] Last Admin: 09/29/18 22:10 Dose: 5,000 unit Vancomycin HCl 1,000 mg/ (Dextrose) 250 mls @ 200 mls/hr IVPB Q24H [facility]; Protocol Sodium Chloride (1/2 Normal Saline) 1,000 mls @ 100 mls/hr IV ASDIR [facility] Last Admin: 09/29/18 22:10 Dose: 100 mls/hr Piperacillin Sod/Tazobactam (Sod 4.5 gm/ Dextrose) 100 mls @ 200 mls/hr IVPB Q6H-IV [facility]; Protocol Piperacillin Sod/Tazobactam (Sod 4.5 gm/ Dextrose) 100 mls @ 200 mls/hr IVPB Q6H-IV [facility]; Protocol Stop: 09/30/18 21:29 Last Admin: 09/30/18 03:33 Dose: 200 mls/hr Levetiracetam (Keppra Injection -) 1,500 mg IVPB BID [facility] Last Admin: 09/29/18 22:09 Dose: 1,500 mg Pantoprazole Sodium (Protonix Iv) 40 mg IVPUSH DAILY [facility] Last Admin: 09/29/18 10:18 Dose: 40 mg Scopolamine HBr (Transderm-Scop -) 1 patch TD Q72H [facility] Last Admin: 09/28/18 13:15 Dose: 1 patch - Objective Vital Signs: Vital Signs Temperature 98.2 F 09/30/18 05:00 Pulse Rate 74 09/30/18 05:00 Respiratory Rate 20 09/30/18 05:00 Blood Pressure 130/70 09/30/18 05:00 O2 Sat by Pulse Oximetry (%) 100 09/29/18 21:00 Non verbal, not in distress HEENT: Mm moist, NECK: No JVd No Bruit CHEST: conducted sounds ABD: s/p S/P PEG EXT: Contracture [employer]: Non verbal advanced Cerebral palsy Labs: CBC, BMP 09/29/18 08:32 09/30/18 06:00 INR, PTT INR 1.40 (0.83-1.09) H 09/23/18 07:50 Problem List - Problems (1) Sepsis Assessment/Plan: Due to aspiration Pneumonia on Zosyn Code(s): A41.9 - SEPSIS, UNSPECIFIED ORGANISM Qualifiers: Sepsis type: sepsis due to unspecified organism Qualified Code(s): A41.9 - Sepsis, unspecified organism (2) Aspiration pneumonia Assessment/Plan: On Zosyn CBC normal afebrile Code(s): J69.0 - PNEUMONITIS DUE TO INHALATION OF FOOD AND VOMIT (3) Cerebral palsy Assessment/Plan: No active issue Code(s): G80.9 - CEREBRAL PALSY, UNSPECIFIED Qualifiers: Cerebral palsy type: unspecified type Qualified Code(s): G80.9 - Cerebral palsy, unspecified (4) Seizure Assessment/Plan: Cont current meds at present seizures free Code(s): R56.9 - UNSPECIFIED CONVULSIONS (5) Asthma Code(s): J45.909 - UNSPECIFIED ASTHMA, UNCOMPLICATED
[2018-09-30] MEDS ORDERED: PT OWN MED DRAWER 7, Y5N ONE ×2 (08:39→20:42)
[2018-09-30] MEDS: levETIRAcetam 500 MG/5 ML INJECTION VIAL IVPB SCH ×2 (09:18→21:52)
[2018-09-30] MEDS: PANTOPRAZOLE SODIUM 40 MG VIAL IVPUSH SCH (09:18)
[2018-09-30] MEDS: HEPARIN NA (PORCINE) 5,000 UNITS/ML 1ML VIAL SQ SCH ×2 (09:18→21:51)
[2018-09-30] MEDS: carBAMazepine 200 MG/10 ML UNIT-DOSE CUP PO SCH ×2 (09:18→21:55)
[2018-09-30] MEDS: CHOLECALCIFEROL (VITAMIN D3) 1,000 UNIT TABLET (FP) GT SCH (09:19)
[2018-09-30] MEDS: BACITRACIN 15 GM TUBE TOPICAL OINTMENT TP SCH (09:19)
[2018-09-30] MEDS: SODIUM CHLORIDE 0.45% 1,000 ML IV SCH ×2 (09:21→21:48)
--- NOTE | 2018-09-30 14:18 | PN ---
Progress Note (short form) - Note Progress Note: Events from yesterday noted. Temps better today. Breathing is non-labored. Intake & Output 09/27/18 09/28/18 09/29/18 09/30/18 23:59 23:59 23:59 23:59 Intake Total 745 1125 1700 Balance 745 1125 1700 Last Vital Signs Temp Pulse Resp BP Pulse Ox 98.0 F 79 20 134/80 97 09/30/18 09:00 09/30/18 09:00 09/30/18 09:00 09/30/18 09:00 09/30/18 09:00 Active Medications Acetaminophen (Ofirmev Injection -) 750 mg IVPB Q6H PRN PRN Reason: FEVER Last Admin: 09/28/18 13:15 Dose: 750 mg Albuterol Sulfate (Ventolin 0.083% Nebulizer Soln -) 1 amp NEB Q4H PRN PRN Reason: SHORT OF BREATH/WHEEZING Last Admin: 09/30/18 07:36 Dose: 1 amp Aspirin (Asa -) 81 mg GT HS [facility] Last Admin: 09/29/18 22:10 Dose: 81 mg Bacitracin (Bacitracin -) 1 applic TP DAILY [facility] Last Admin: 09/30/18 09:19 Dose: 1 applic Baclofen (Lioresal -) 10 mg GT DAILY@0600,1200 [facility] Last Admin: 09/30/18 11:40 Dose: 10 mg Baclofen (Lioresal -) 20 mg GT DAILY@1800,0000 [facility] Last Admin: 09/29/18 23:55 Dose: 20 mg Carbamazepine (Tegretol Oral Suspension -) 280 mg PO BID [facility] Last Admin: 09/30/18 09:18 Dose: 280 mg Cholecalciferol (Vitamin D3 -) 2,000 unit GT DAILY [facility] Last Admin: 09/30/18 09:19 Dose: 2,000 unit Clonazepam (Klonopin -) 1 mg GT TID [facility] Last Admin: 09/30/18 13:24 Dose: 1 mg Clonidine (Catapres -) 0.2 mg PO HS [facility] Last Admin: 09/29/18 22:10 Dose: 0.2 mg Heparin Sodium (Porcine) (Heparin -) 5,000 unit SQ BID [facility] Last Admin: 09/30/18 09:18 Dose: 5,000 unit Vancomycin HCl 1,000 mg/ (Dextrose) 250 mls @ 200 mls/hr IVPB Q24H [facility]; Protocol Sodium Chloride (1/2 Normal Saline) 1,000 mls @ 100 mls/hr IV ASDIR [facility] Last Admin: 09/30/18 09:21 Dose: 100 mls/hr Piperacillin Sod/Tazobactam (Sod 4.5 gm/ Dextrose) 100 mls @ 200 mls/hr IVPB Q6H-IV [facility]; Protocol Piperacillin Sod/Tazobactam (Sod 4.5 gm/ Dextrose) 100 mls @ 200 mls/hr IVPB Q6H-IV [facility]; Protocol Stop: 09/30/18 21:29 Last Admin: 09/30/18 14:15 Dose: 200 mls/hr Levetiracetam (Keppra Injection -) 1,500 mg IVPB BID [facility] Last Admin: 09/30/18 09:18 Dose: 1,500 mg Pantoprazole Sodium (Protonix Iv) 40 mg IVPUSH DAILY [facility] Last Admin: 09/30/18 09:18 Dose: 40 mg Scopolamine HBr (Transderm-Scop -) 1 patch TD Q72H [facility] Last Admin: 09/28/18 13:15 Dose: 1 patch Gen: NAD at rest Heart: RRR Lung: decreased breath sounds at the bases Abd: soft, nontender Ext: no edema, contracted A/P s/p Acute Respiratory Failure Suspected Aspiration Pneumonitis / Pneumonia Severe Sepsis resolving +Troponins likely Demand Ischemia Mental Retardation/Cerebral Palsy Seizure Disorder Asthma Functional Quadriplegia - Noted Zosyn - IVF - aspiration precautions - DVT/GI prophylaxis Dr Trevizo
[2018-09-30] MEDS: ASPIRIN 81 MG CHEWABLE TABLETS GT SCH (21:50)
[2018-09-30] MEDS: cloNIDine HCL 0.1 MG TABLET PO SCH (21:59)
[2018-10-01] MEDS: BACLOFEN 10 MG TABLET (FP) GT SCH ×4 (01:23→18:17)
[2018-10-01] MEDS: clonazePAM 0.5 MG TABLET GT SCH ×3 (05:22→22:14)
--- NOTE | 2018-10-01 08:26 | PN ---
Progress Note, Physician Chief Complaint: No interval changes History of Present Illness: 28 year old male with a significant past medical history of profound mental retardation, cerebral palsy, dysphagia, peg tube, seizures, hyponatremia and asthma. Patient is a resident at [facility]. He has had multiple admissions to [facility] for aspiration pneumonia. He comes in to the ED for shortness of breath and coughing up green mucus. In the ED he was noted to be with tachycardia and hypotension.Developed Pneumothorax Rt sided - Current Medication List Current Medications: Active Medications Acetaminophen (Ofirmev Injection -) 750 mg IVPB Q6H PRN PRN Reason: FEVER Last Admin: 09/28/18 13:15 Dose: 750 mg Albuterol Sulfate (Ventolin 0.083% Nebulizer Soln -) 1 amp NEB Q4H PRN PRN Reason: SHORT OF BREATH/WHEEZING Last Admin: 09/30/18 23:34 Dose: 1 amp Aspirin (Asa -) 81 mg GT HS [facility] Last Admin: 09/30/18 21:50 Dose: 81 mg Bacitracin (Bacitracin -) 1 applic TP DAILY [facility] Last Admin: 09/30/18 09:19 Dose: 1 applic Baclofen (Lioresal -) 10 mg GT DAILY@0600,1200 [facility] Last Admin: 10/01/18 05:22 Dose: 10 mg Baclofen (Lioresal -) 20 mg GT DAILY@1800,0000 [facility] Last Admin: 10/01/18 01:23 Dose: 20 mg Carbamazepine (Tegretol Oral Suspension -) 280 mg PO BID [facility] Last Admin: 09/30/18 21:55 Dose: 280 mg Cholecalciferol (Vitamin D3 -) 2,000 unit GT DAILY [facility] Last Admin: 09/30/18 09:19 Dose: 2,000 unit Clonazepam (Klonopin -) 1 mg GT TID [facility] Last Admin: 10/01/18 05:22 Dose: 1 mg Clonidine (Catapres -) 0.2 mg PO HS [facility] Last Admin: 09/30/18 21:59 Dose: 0.2 mg Heparin Sodium (Porcine) (Heparin -) 5,000 unit SQ BID [facility] Last Admin: 09/30/18 21:51 Dose: 5,000 unit Vancomycin HCl 1,000 mg/ (Dextrose) 250 mls @ 200 mls/hr IVPB Q24H [facility]; Protocol Sodium Chloride (1/2 Normal Saline) 1,000 mls @ 100 mls/hr IV ASDIR [facility] Last Admin: 09/30/18 21:48 Dose: 100 mls/hr Piperacillin Sod/Tazobactam (Sod 4.5 gm/ Dextrose) 100 mls @ 200 mls/hr IVPB Q6H-IV [facility]; Protocol Levetiracetam (Keppra Injection -) 1,500 mg IVPB BID [facility] Last Admin: 09/30/18 21:52 Dose: 1,500 mg Pantoprazole Sodium (Protonix Iv) 40 mg IVPUSH DAILY [facility] Last Admin: 09/30/18 09:18 Dose: 40 mg Scopolamine HBr (Transderm-Scop -) 1 patch TD Q72H [facility] Last Admin: 09/28/18 13:15 Dose: 1 patch - Objective Vital Signs: Vital Signs Temperature 97.8 F 10/01/18 05:00 Pulse Rate 93 H 10/01/18 05:00 Respiratory Rate 20 10/01/18 05:00 Blood Pressure 130/62 10/01/18 05:00 O2 Sat by Pulse Oximetry (%) 97 09/30/18 21:00 Non verbal, not in distress HEENT: Mm moist, NECK: No JVd No Bruit CHEST: conducted sounds ABD: s/p S/P PEG EXT: Contracture 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: Non verbal advanced Cerebral palsy Labs: CBC, BMP 09/29/18 08:32 09/30/18 06:00 INR, PTT INR 1.40 (0.83-1.09) H 09/23/18 07:50 Problem List - Problems (1) Sepsis Assessment/Plan: Due to aspiration Pneumonia on Zosyn Code(s): A41.9 - SEPSIS, UNSPECIFIED ORGANISM Qualifiers: Sepsis type: sepsis due to unspecified organism Qualified Code(s): A41.9 - Sepsis, unspecified organism (2) Aspiration pneumonia Assessment/Plan: On Zosyn CBC normal afebrile Code(s): J69.0 - PNEUMONITIS DUE TO INHALATION OF FOOD AND VOMIT (3) Cerebral palsy Assessment/Plan: No active issue Code(s): G80.9 - CEREBRAL PALSY, UNSPECIFIED Qualifiers: Cerebral palsy type: unspecified type Qualified Code(s): G80.9 - Cerebral palsy, unspecified (4) Seizure Assessment/Plan: Cont current meds at present seizures free Code(s): R56.9 - UNSPECIFIED CONVULSIONS (5) Asthma Assessment/Plan: cont nebs treatment Code(s): J45.909 - UNSPECIFIED ASTHMA, UNCOMPLICATED
[2018-10-01 10:30] LABS: BASO % 0.7 % (0-2.0); EOS % 6.9 % (0-4.5); HEMATOCRIT 29.7 % (35.4-49); HEMOGLOBIN 10.1 GM/dL (11.7-16.9); LYMPH % 37.8 % (8-40); MCH 29.8 pg (25.7-33.7); MCHC 33.9 g/dl (32.0-35.9); MEAN CELL VOLUME 87.7 fl (80-96); MEAN PLT VOLUME 7.7 fl (7.5-11.1); MONO % 11.2 % (3.8-10.2); NEUT % 43.4 % (42.8-82.8); PLATELET COUNT 314 K/MM3 (134-434); RBC 3.39 M/mm3 (4.00-5.60); RDW 14.8 % (11.9-15.9); WHITE BLOOD COUNT 5.3 K/mm3 (4.0-10.0)
[2018-10-01] MEDS: levETIRAcetam 500 MG/5 ML INJECTION VIAL IVPB SCH ×2 (10:50→22:13)
[2018-10-01] MEDS: CHOLECALCIFEROL (VITAMIN D3) 1,000 UNIT TABLET (FP) GT SCH (10:51)
[2018-10-01] MEDS: PANTOPRAZOLE SODIUM 40 MG VIAL IVPUSH SCH (10:51)
[2018-10-01] MEDS: carBAMazepine 200 MG/10 ML UNIT-DOSE CUP PO SCH ×2 (10:58→22:18)
[2018-10-01] MEDS ORDERED: PT OWN MED DRAWER 7, Y5N ONE ×2 (10:58→20:57)
--- NOTE | 2018-10-01 10:58 | PN ---
Progress Note (short form) - Note Progress Note: Breathing is non-focal. Temps better today. Intake & Output 09/28/18 09/29/18 09/30/18 10/01/18 23:59 23:59 23:59 23:59 Intake Total 1125 1700 1000 2100 Balance 1125 1700 1000 2100 Last Vital Signs Temp Pulse Resp BP Pulse Ox 97.8 F 93 H 20 130/62 97 10/01/18 05:00 10/01/18 05:00 10/01/18 05:00 10/01/18 05:00 09/30/18 21:00 Active Medications Acetaminophen (Ofirmev Injection -) 750 mg IVPB Q6H PRN PRN Reason: FEVER Last Admin: 09/28/18 13:15 Dose: 750 mg Albuterol Sulfate (Ventolin 0.083% Nebulizer Soln -) 1 amp NEB Q4H PRN PRN Reason: SHORT OF BREATH/WHEEZING Last Admin: 09/30/18 23:34 Dose: 1 amp Aspirin (Asa -) 81 mg GT HS [facility] Last Admin: 09/30/18 21:50 Dose: 81 mg Bacitracin (Bacitracin -) 1 applic TP DAILY [facility] Last Admin: 09/30/18 09:19 Dose: 1 applic Baclofen (Lioresal -) 10 mg GT DAILY@0600,1200 [facility] Last Admin: 10/01/18 05:22 Dose: 10 mg Baclofen (Lioresal -) 20 mg GT DAILY@1800,0000 [facility] Last Admin: 10/01/18 01:23 Dose: 20 mg Carbamazepine (Tegretol Oral Suspension -) 280 mg PO BID [facility] Last Admin: 09/30/18 21:55 Dose: 280 mg Cholecalciferol (Vitamin D3 -) 2,000 unit GT DAILY [facility] Last Admin: 09/30/18 09:19 Dose: 2,000 unit Clonazepam (Klonopin -) 1 mg GT TID [facility] Last Admin: 10/01/18 05:22 Dose: 1 mg Clonidine (Catapres -) 0.2 mg PO HS [facility] Last Admin: 09/30/18 21:59 Dose: 0.2 mg Heparin Sodium (Porcine) (Heparin -) 5,000 unit SQ BID [facility] Last Admin: 09/30/18 21:51 Dose: 5,000 unit Vancomycin HCl 1,000 mg/ (Dextrose) 250 mls @ 200 mls/hr IVPB Q24H [facility]; Protocol Sodium Chloride (1/2 Normal Saline) 1,000 mls @ 100 mls/hr IV ASDIR [facility] Last Admin: 09/30/18 21:48 Dose: 100 mls/hr Piperacillin Sod/Tazobactam (Sod 4.5 gm/ Dextrose) 100 mls @ 200 mls/hr IVPB Q6H-IV [facility]; Protocol Levetiracetam (Keppra Injection -) 1,500 mg IVPB BID [facility] Last Admin: 09/30/18 21:52 Dose: 1,500 mg Pantoprazole Sodium (Protonix Iv) 40 mg IVPUSH DAILY [facility] Last Admin: 09/30/18 09:18 Dose: 40 mg Scopolamine HBr (Transderm-Scop -) 1 patch TD Q72H [facility] Last Admin: 09/28/18 13:15 Dose: 1 patch Gen: NAD at rest Heart: RRR Lung: decreased breath sounds at the bases Abd: soft, nontender Ext: no edema, contracted Laboratory Results - last 24 hr 10/01/18 09:55 WBC 5.3 RBC 3.39 L Hgb 10.1 L Hct 29.7 L MCV 87.7 MCH 29.8 MCHC 33.9 RDW 14.8 Plt Count 314 MPV 7.7 Absolute Neuts (auto) 2.3 Neutrophils % 43.4 D Lymphocytes % 37.8 D Monocytes % 11.2 H Eosinophils % 6.9 H D Basophils % 0.7 Nucleated RBC % 0 A/P s/p Acute Respiratory Failure Suspected Aspiration Pneumonitis / Pneumonia Severe Sepsis resolving +Troponins likely Demand Ischemia Mental Retardation/Cerebral Palsy Seizure Disorder Asthma Functional Quadriplegia - Noted Zosyn - IVF - aspiration precautions - DVT/GI prophylaxis Dr Trevizo
[2018-10-01] MEDS: HEPARIN NA (PORCINE) 5,000 UNITS/ML 1ML VIAL SQ SCH ×2 (10:59→22:16)
[2018-10-01] MEDS: BACITRACIN 15 GM TUBE TOPICAL OINTMENT TP SCH (11:00)
[2018-10-01 11:53] LABS: ANION GAP 8 MMOL/L (8-16); BLOOD UREA NITROGEN 12 mg/dL (7-18); CALCIUM 8.3 mg/dL (8.5-10.1); CHLORIDE 108 mmol/L (98-107); CO2 26 mmol/L (21-32); CREATININE 0.5 mg/dL (0.55-1.3); GLUCOSE,RANDOM 93 mg/dL (74-106); POTASSIUM 3.8 mmol/L (3.5-5.1); SODIUM 142 mmol/L (136-145)
[2018-10-01] MEDS: SCOPOLAMINE HYDROBROMIDE 1 PATCH PATCH.TD72 TD SCH (15:45)
[2018-10-01] MEDS: cloNIDine HCL 0.1 MG TABLET PO SCH (22:14)
[2018-10-01] MEDS: ASPIRIN 81 MG CHEWABLE TABLETS GT SCH (22:16)
[2018-10-01] MEDS: SODIUM CHLORIDE 0.45% 1,000 ML IV SCH (22:17)
[2018-10-02] MEDS: BACLOFEN 10 MG TABLET (FP) GT SCH ×6 (01:09→23:07)
[2018-10-02] MEDS: clonazePAM 0.5 MG TABLET GT SCH ×4 (05:19→22:41)
[2018-10-02 06:49] LABS: BASO % 0.9 % (0-2.0); EOS % 5.9 % (0-4.5); HEMATOCRIT 29.3 % (35.4-49); HEMOGLOBIN 10.2 GM/dL (11.7-16.9); LYMPH % 47.7 % (8-40); MCHC 34.7 g/dl (32.0-35.9); MEAN CELL VOLUME 86.6 fl (80-96); MEAN PLT VOLUME 8.3 fl (7.5-11.1); MONO % 7.7 % (3.8-10.2); NEUT % 37.8 % (42.8-82.8); PLATELET COUNT 326 K/MM3 (134-434); RBC 3.39 M/mm3 (4.00-5.60); RDW 14.9 % (11.9-15.9); WHITE BLOOD COUNT 5.4 K/mm3 (4.0-10.0)
[2018-10-02 07:25] LABS: ANION GAP 5 MMOL/L (8-16); BLOOD UREA NITROGEN 10 mg/dL (7-18); CALCIUM 7.9 mg/dL (8.5-10.1); CHLORIDE 108 mmol/L (98-107); CO2 26 mmol/L (21-32); CREATININE 0.4 mg/dL (0.55-1.3); GLUCOSE,RANDOM 79 mg/dL (74-106); POTASSIUM 3.9 mmol/L (3.5-5.1); SODIUM 139 mmol/L (136-145)
[2018-10-02] MEDS ORDERED: PT OWN MED DRAWER 7, Y5N ONE (09:49)
[2018-10-02] MEDS: levETIRAcetam 500 MG/5 ML INJECTION VIAL IVPB SCH ×2 (09:52→22:40)
[2018-10-02] MEDS: PANTOPRAZOLE SODIUM 40 MG VIAL IVPUSH SCH (09:53)
[2018-10-02] MEDS: carBAMazepine 200 MG/10 ML UNIT-DOSE CUP PO SCH ×2 (09:53→22:42)
[2018-10-02] MEDS: BACITRACIN 15 GM TUBE TOPICAL OINTMENT TP SCH (09:53)
[2018-10-02] MEDS: CHOLECALCIFEROL (VITAMIN D3) 1,000 UNIT TABLET (FP) GT SCH (09:53)
[2018-10-02] MEDS: HEPARIN NA (PORCINE) 5,000 UNITS/ML 1ML VIAL SQ SCH ×2 (09:53→22:41)
--- NOTE | 2018-10-02 10:24 | PN ---
Progress Note, Physician Chief Complaint: No interval changes History of Present Illness: 28 year old male with a significant past medical history of profound mental retardation, cerebral palsy, dysphagia, peg tube, seizures, hyponatremia and asthma. Patient is a resident at [facility]. He has had multiple admissions to [facility] for aspiration pneumonia. He comes in to the ED for shortness of breath and coughing up green mucus. In the ED he was noted to be with tachycardia and hypotension.Developed Pneumothorax Rt sided - Current Medication List Current Medications: Active Medications Acetaminophen (Ofirmev Injection -) 750 mg IVPB Q6H PRN PRN Reason: FEVER Last Admin: 09/28/18 13:15 Dose: 750 mg Albuterol Sulfate (Ventolin 0.083% Nebulizer Soln -) 1 amp NEB Q4H PRN PRN Reason: SHORT OF BREATH/WHEEZING Last Admin: 09/30/18 23:34 Dose: 1 amp Aspirin (Asa -) 81 mg GT HS [facility] Last Admin: 10/01/18 22:16 Dose: 81 mg Bacitracin (Bacitracin -) 1 applic TP DAILY [facility] Last Admin: 10/02/18 09:53 Dose: 1 applic Baclofen (Lioresal -) 10 mg GT DAILY@0600,1200 [facility] Last Admin: 10/02/18 05:19 Dose: 10 mg Baclofen (Lioresal -) 20 mg GT DAILY@1800,0000 [facility] Last Admin: 10/02/18 01:09 Dose: 20 mg Carbamazepine (Tegretol Oral Suspension -) 280 mg PO BID [facility] Last Admin: 10/02/18 09:53 Dose: 280 mg Cholecalciferol (Vitamin D3 -) 2,000 unit GT DAILY [facility] Last Admin: 10/02/18 09:53 Dose: 2,000 unit Clonazepam (Klonopin -) 1 mg GT TID [facility] Last Admin: 10/02/18 05:19 Dose: 1 mg Clonidine (Catapres -) 0.2 mg PO HS [facility] Last Admin: 10/01/18 22:14 Dose: 0.2 mg Heparin Sodium (Porcine) (Heparin -) 5,000 unit SQ BID [facility] Last Admin: 10/02/18 09:53 Dose: 5,000 unit Vancomycin HCl 1,000 mg/ (Dextrose) 250 mls @ 200 mls/hr IVPB Q24H [facility]; Protocol Sodium Chloride (1/2 Normal Saline) 1,000 mls @ 100 mls/hr IV ASDIR [facility] Last Admin: 10/01/18 22:17 Dose: 100 mls/hr Piperacillin Sod/Tazobactam (Sod 4.5 gm/ Dextrose) 100 mls @ 200 mls/hr IVPB Q6H-IV [facility]; Protocol Levetiracetam (Keppra Injection -) 1,500 mg IVPB BID [facility] Last Admin: 10/02/18 09:52 Dose: 1,500 mg Pantoprazole Sodium (Protonix Iv) 40 mg IVPUSH DAILY [facility] Last Admin: 10/02/18 09:53 Dose: 40 mg Scopolamine HBr (Transderm-Scop -) 1 patch TD Q72H [facility] Last Admin: 10/01/18 15:45 Dose: 1 patch - Objective Vital Signs: Vital Signs Temperature 97.7 F 10/02/18 05:47 Pulse Rate 51 L 10/02/18 05:47 Respiratory Rate 20 10/02/18 05:47 Blood Pressure 111/59 L 10/02/18 05:47 O2 Sat by Pulse Oximetry (%) 97 10/01/18 21:00 Non verbal, not in distress HEENT: Mm moist, NECK: No JVd No Bruit CHEST: conducted sounds ABD: s/p S/P PEG EXT: Contracture 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 advanced Cerebral palsy Labs: CBC, BMP 10/02/18 05:15 10/02/18 05:15 INR, PTT INR 1.40 (0.83-1.09) H 09/23/18 07:50 Problem List - Problems (1) Sepsis Assessment/Plan: Due to aspiration Pneumonia on Zosyn Code(s): A41.9 - SEPSIS, UNSPECIFIED ORGANISM Qualifiers: Sepsis type: sepsis due to unspecified organism Qualified Code(s): A41.9 - Sepsis, unspecified organism (2) Aspiration pneumonia Assessment/Plan: DC Zosyn CBC normal afebrile Code(s): J69.0 - PNEUMONITIS DUE TO INHALATION OF FOOD AND VOMIT (3) Cerebral palsy Assessment/Plan: No active issue Code(s): G80.9 - CEREBRAL PALSY, UNSPECIFIED Qualifiers: Cerebral palsy type: unspecified type Qualified Code(s): G80.9 - Cerebral palsy, unspecified (4) Seizure Assessment/Plan: Cont current meds at present seizures free Code(s): R56.9 - UNSPECIFIED CONVULSIONS (5) Asthma Assessment/Plan: cont nebs treatment Code(s): J45.909 - UNSPECIFIED ASTHMA, UNCOMPLICATED (6) Functional quadriplegia Assessment/Plan: Secondary to sever Cerbral palsy Code(s): R53.2 - FUNCTIONAL QUADRIPLEGIA
--- NOTE | 2018-10-02 10:48 | PN ---
Progress Note (short form) - Note Progress Note: Breathing is non-labored. No acute events overnight. Intake & Output 09/29/18 09/30/18 10/01/18 10/02/18 23:59 23:59 23:59 23:59 Intake Total 1700 1000 3300 2200 Balance 1700 1000 3300 2200 Last Vital Signs Temp Pulse Resp BP Pulse Ox 97.7 F 51 L 20 111/59 L 97 10/02/18 05:47 10/02/18 05:47 10/02/18 05:47 10/02/18 05:47 10/01/18 21:00 Active Medications Acetaminophen (Ofirmev Injection -) 750 mg IVPB Q6H PRN PRN Reason: FEVER Last Admin: 09/28/18 13:15 Dose: 750 mg Albuterol Sulfate (Ventolin 0.083% Nebulizer Soln -) 1 amp NEB Q4H PRN PRN Reason: SHORT OF BREATH/WHEEZING Last Admin: 09/30/18 23:34 Dose: 1 amp Aspirin (Asa -) 81 mg GT HS [facility] Last Admin: 10/01/18 22:16 Dose: 81 mg Bacitracin (Bacitracin -) 1 applic TP DAILY [facility] Last Admin: 10/02/18 09:53 Dose: 1 applic Baclofen (Lioresal -) 10 mg GT DAILY@0600,1200 [facility] Last Admin: 10/02/18 05:19 Dose: 10 mg Baclofen (Lioresal -) 20 mg GT DAILY@1800,0000 [facility] Last Admin: 10/02/18 01:09 Dose: 20 mg Carbamazepine (Tegretol Oral Suspension -) 280 mg PO BID [facility] Last Admin: 10/02/18 09:53 Dose: 280 mg Cholecalciferol (Vitamin D3 -) 2,000 unit GT DAILY [facility] Last Admin: 10/02/18 09:53 Dose: 2,000 unit Clonazepam (Klonopin -) 1 mg GT TID [facility] Last Admin: 10/02/18 05:19 Dose: 1 mg Clonidine (Catapres -) 0.2 mg PO HS [facility] Last Admin: 10/01/18 22:14 Dose: 0.2 mg Heparin Sodium (Porcine) (Heparin -) 5,000 unit SQ BID [facility] Last Admin: 10/02/18 09:53 Dose: 5,000 unit Vancomycin HCl 1,000 mg/ (Dextrose) 250 mls @ 200 mls/hr IVPB Q24H [facility]; Protocol Sodium Chloride (1/2 Normal Saline) 1,000 mls @ 100 mls/hr IV ASDIR [facility] Last Admin: 10/01/18 22:17 Dose: 100 mls/hr Piperacillin Sod/Tazobactam (Sod 4.5 gm/ Dextrose) 100 mls @ 200 mls/hr IVPB Q6H-IV [facility]; Protocol Levetiracetam (Keppra Injection -) 1,500 mg IVPB BID [facility] Last Admin: 10/02/18 09:52 Dose: 1,500 mg Pantoprazole Sodium (Protonix Iv) 40 mg IVPUSH DAILY [facility] Last Admin: 10/02/18 09:53 Dose: 40 mg Scopolamine HBr (Transderm-Scop -) 1 patch TD Q72H [facility] Last Admin: 10/01/18 15:45 Dose: 1 patch Gen: NAD at rest Heart: RRR Lung: decreased breath sounds at the bases Abd: soft, nontender Ext: no edema, contracted Laboratory Results - last 24 hr 10/01/18 10/02/18 10/02/18 09:55 05:15 05:15 WBC 5.4 RBC 3.39 L Hgb 10.2 L Hct 29.3 L MCV 86.6 MCH 30.0 MCHC 34.7 RDW 14.9 Plt Count 326 MPV 8.3 Absolute Neuts (auto) 2.0 Neutrophils % 37.8 L Lymphocytes % 47.7 H D Monocytes % 7.7 Eosinophils % 5.9 H Basophils % 0.9 Nucleated RBC % 0 Sodium 142 139 Potassium 3.8 3.9 Chloride 108 H 108 H Carbon Dioxide 26 26 Anion Gap 8 5 L BUN 12 10 Creatinine 0.5 L 0.4 L Creat Clearance w eGFR > 60 > 60 Random Glucose 93 79 Calcium 8.3 L 7.9 L A/P s/p Acute Respiratory Failure Suspected Aspiration Pneumonitis / Pneumonia Severe Sepsis resolving +Troponins likely Demand Ischemia Mental Retardation/Cerebral Palsy Seizure Disorder Asthma Functional Quadriplegia - ABX per ID - O2 as needed - aspiration precautions - DVT/GI prophylaxis Dr Trevizo
--- NOTE | 2018-10-02 12:11 | PN ---
Progress Note (short form) - Note Progress Note: resting comfortably Vital Signs Period Temp Pulse Resp BP Sys/Don Pulse Ox Last 24 Hr 97.5 F-99 F 51-100 20-20 111-138/59-73 97-98 cor-rrr lungs clear abd soft,nt ext no edema CBC, BMP 10/02/18 05:15 10/02/18 05:15 Microbiology 09/29/18 10:45 Blood - Peripheral Venous Blood Culture - Preliminary Staphylococcus Coagulase Neg 09/29/18 10:45 Blood - Peripheral Venous Blood Culture - Preliminary NO GROWTH OBTAINED AFTER 48 HOURS, INCUBATION TO CONTINUE FOR 3 DAYS. 09/29/18 08:00 Urine - Urine Clean Catch Urine Culture - Final 09/24/18 08:30 Blood - Peripheral Venous Blood Culture - Final NO GROWTH AFTER 5 DAYS INCUBATION 09/24/18 08:30 Blood - Peripheral Venous Blood Culture - Final NO GROWTH AFTER 5 DAYS INCUBATION 09/22/18 05:00 Blood - Peripheral Venous Blood Culture - Final NO GROWTH AFTER 5 DAYS INCUBATION 09/22/18 14:00 Sputum - Endotrachea Suction/Ventilator Gram Stain - Final 09/22/18 14:00 Sputum - Endotrachea Suction/Ventilator Sputum Culture - Final Moraxella (Bran.) Catarrhalis 09/22/18 05:00 Blood - Peripheral Venous Blood Culture - Final Dermabacter Hominis 09/22/18 05:47 Urine - Urine Clean Catch Urine Culture - Final NO GROWTH OBTAINED 09/22/18 14:00 Urine For Antigen Detection Legionella Antigen - Final 09/22/18 14:00 Urine For Antigen Detection Streptococcus pneumoniae Antigen (M - Final a/p blood culture isolates- contaminants has completed antibiotic course for aspiration/HCAP will d/c antibiotics and observe
[2018-10-02] MEDS: VANCOMYCIN 1,000 MG in DEXTROSE 5%-WATER - 250 ML IVPB SCH ×2 (13:05→13:06)
--- NOTE | 2018-10-02 13:40 | PN ---
Progress Note, Physician Chief Complaint: No interval changes, less chest signs and saturating well. History of Present Illness: 28 year old male with a significant past medical history of profound mental retardation, cerebral palsy, dysphagia, peg tube, seizures, hyponatremia and asthma. Patient is a resident at [facility]. He has had multiple admissions to [facility] for aspiration pneumonia. He comes in to the ED for shortness of breath and coughing up green mucus. In the ED he was noted to be with tachycardia and hypotension.Developed Pneumothorax Rt sided - Current Medication List Current Medications: Active Medications Acetaminophen (Ofirmev Injection -) 750 mg IVPB Q6H PRN PRN Reason: FEVER Last Admin: 09/28/18 13:15 Dose: 750 mg Albuterol Sulfate (Ventolin 0.083% Nebulizer Soln -) 1 amp NEB Q4H PRN PRN Reason: SHORT OF BREATH/WHEEZING Last Admin: 09/30/18 23:34 Dose: 1 amp Aspirin (Asa -) 81 mg GT HS [facility] Last Admin: 10/01/18 22:16 Dose: 81 mg Bacitracin (Bacitracin -) 1 applic TP DAILY [facility] Last Admin: 10/02/18 09:53 Dose: 1 applic Baclofen (Lioresal -) 10 mg GT DAILY@0600,1200 [facility] Last Admin: 10/02/18 05:19 Dose: 10 mg Baclofen (Lioresal -) 20 mg GT DAILY@1800,0000 [facility] Last Admin: 10/02/18 01:09 Dose: 20 mg Carbamazepine (Tegretol Oral Suspension -) 280 mg PO BID [facility] Last Admin: 10/02/18 09:53 Dose: 280 mg Cholecalciferol (Vitamin D3 -) 2,000 unit GT DAILY [facility] Last Admin: 10/02/18 09:53 Dose: 2,000 unit Clonazepam (Klonopin -) 1 mg GT TID [facility] Last Admin: 10/02/18 05:19 Dose: 1 mg Clonidine (Catapres -) 0.2 mg PO HS [facility] Last Admin: 10/01/18 22:14 Dose: 0.2 mg Heparin Sodium (Porcine) (Heparin -) 5,000 unit SQ BID [facility] Last Admin: 10/02/18 09:53 Dose: 5,000 unit Sodium Chloride (1/2 Normal Saline) 1,000 mls @ 100 mls/hr IV ASDIR [facility] Last Admin: 10/01/18 22:17 Dose: 100 mls/hr Levetiracetam (Keppra Injection -) 1,500 mg IVPB BID [facility] Last Admin: 10/02/18 09:52 Dose: 1,500 mg Pantoprazole Sodium (Protonix Iv) 40 mg IVPUSH DAILY [facility] Last Admin: 10/02/18 09:53 Dose: 40 mg Scopolamine HBr (Transderm-Scop -) 1 patch TD Q72H [facility] Last Admin: 10/01/18 15:45 Dose: 1 patch - Objective Vital Signs: Vital Signs Temperature 98.9 F 10/02/18 13:35 Pulse Rate 83 10/02/18 13:35 Respiratory Rate 20 10/02/18 13:35 Blood Pressure 129/76 10/02/18 13:35 O2 Sat by Pulse Oximetry (%) 98 10/02/18 09:00 Non verbal, not in distress HEENT: Mm moist, NECK: No JVd No Bruit CHEST: conducted sounds ABD: s/p S/P PEG EXT: Contracture 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 Code(s): A41.9 - SEPSIS, UNSPECIFIED ORGANISM Qualifiers: Sepsis type: sepsis due to unspecified organism Qualified Code(s): A41.9 - Sepsis, unspecified organism (2) Aspiration pneumonia Assessment/Plan: Off Zosyn observe CBC normal afebrile Code(s): J69.0 - PNEUMONITIS DUE TO INHALATION OF FOOD AND VOMIT (3) Cerebral palsy Assessment/Plan: No active issue Code(s): G80.9 - CEREBRAL PALSY, UNSPECIFIED Qualifiers: Cerebral palsy type: unspecified type Qualified Code(s): G80.9 - Cerebral palsy, unspecified (4) Seizure Assessment/Plan: Cont current meds at present seizures free Code(s): R56.9 - UNSPECIFIED CONVULSIONS (5) Asthma Assessment/Plan: cont nebs treatment Code(s): J45.909 - UNSPECIFIED ASTHMA, UNCOMPLICATED
[2018-10-02] MEDS: cloNIDine HCL 0.1 MG TABLET PO SCH (22:41)
[2018-10-02] MEDS: ASPIRIN 81 MG CHEWABLE TABLETS GT SCH (22:41)
[2018-10-03] MEDS: BACLOFEN 10 MG TABLET (FP) GT SCH ×3 (05:39→17:19)
[2018-10-03] MEDS: clonazePAM 0.5 MG TABLET GT SCH ×3 (05:39→22:15)
[2018-10-03] MEDS: ALBUTEROL SO4 0.083% IH SOL 2.5 MG/3 ML VIAL.NEB. NEB PRN ×2 (07:15→20:20)
[2018-10-03 08:10] LABS: BASO % 0.6 % (0-2.0); EOS % 1.2 % (0-4.5); HEMATOCRIT 31.8 % (35.4-49); HEMOGLOBIN 11.1 GM/dL (11.7-16.9); LYMPH % 20.7 % (8-40); MCH 30.1 pg (25.7-33.7); MCHC 34.8 g/dl (32.0-35.9); MEAN CELL VOLUME 86.4 fl (80-96); MEAN PLT VOLUME 8.1 fl (7.5-11.1); MONO % 6.6 % (3.8-10.2); NEUT % 70.9 % (42.8-82.8); PLATELET COUNT 401 K/MM3 (134-434); RBC 3.68 M/mm3 (4.00-5.60); RDW 14.9 % (11.9-15.9); WHITE BLOOD COUNT 8.6 K/mm3 (4.0-10.0)
[2018-10-03 08:26] LABS: ANION GAP 8 MMOL/L (8-16); BLOOD UREA NITROGEN 11 mg/dL (7-18); CALCIUM 8.6 mg/dL (8.5-10.1); CHLORIDE 106 mmol/L (98-107); CO2 23 mmol/L (21-32); CREATININE 0.5 mg/dL (0.55-1.3); GLUCOSE,RANDOM 102 mg/dL (74-106); POTASSIUM 3.9 mmol/L (3.5-5.1); SODIUM 138 mmol/L (136-145)
[2018-10-03] MEDS ORDERED: PT OWN MED DRAWER 7, Y5N ONE (09:10)
[2018-10-03] MEDS: PANTOPRAZOLE SODIUM 40 MG VIAL IVPUSH SCH (09:42)
[2018-10-03] MEDS: CHOLECALCIFEROL (VITAMIN D3) 1,000 UNIT TABLET (FP) GT SCH (09:42)
[2018-10-03] MEDS: levETIRAcetam 500 MG/5 ML INJECTION VIAL IVPB SCH ×2 (09:42→22:15)
[2018-10-03] MEDS: HEPARIN NA (PORCINE) 5,000 UNITS/ML 1ML VIAL SQ SCH ×2 (09:42→22:16)
[2018-10-03] MEDS: carBAMazepine 200 MG/10 ML UNIT-DOSE CUP PO SCH ×2 (09:45→22:16)
[2018-10-03] MEDS: BACITRACIN 15 GM TUBE TOPICAL OINTMENT TP SCH (09:46)
--- NOTE | 2018-10-03 10:02 | PN ---
Progress Note (short form) - Note Progress Note: Breathing is non-labored. No acute events overnight. Afebrile. Intake & Output 09/30/18 10/01/18 10/02/18 10/03/18 23:59 23:59 23:59 23:59 Intake Total 1000 3300 3150 100 Balance 1000 3300 3150 100 Last Vital Signs Temp Pulse Resp BP Pulse Ox 98.6 F 98 H 20 137/87 98 10/03/18 06:00 10/03/18 06:00 10/03/18 06:00 10/03/18 06:00 10/02/18 21:00 Active Medications Acetaminophen (Ofirmev Injection -) 750 mg IVPB Q6H PRN PRN Reason: FEVER Last Admin: 09/28/18 13:15 Dose: 750 mg Albuterol Sulfate (Ventolin 0.083% Nebulizer Soln -) 1 amp NEB Q4H PRN PRN Reason: SHORT OF BREATH/WHEEZING Last Admin: 10/03/18 07:15 Dose: 1 amp Aspirin (Asa -) 81 mg GT HS [facility] Last Admin: 10/02/18 22:41 Dose: 81 mg Bacitracin (Bacitracin -) 1 applic TP DAILY [facility] Last Admin: 10/03/18 09:46 Dose: 1 applic Baclofen (Lioresal -) 10 mg GT DAILY@0600,1200 [facility] Last Admin: 10/03/18 05:39 Dose: 10 mg Baclofen (Lioresal -) 20 mg GT DAILY@1800,0000 [facility] Last Admin: 10/02/18 23:07 Dose: 20 mg Carbamazepine (Tegretol Oral Suspension -) 280 mg PO BID [facility] Last Admin: 10/03/18 09:45 Dose: 280 mg Cholecalciferol (Vitamin D3 -) 2,000 unit GT DAILY [facility] Last Admin: 10/03/18 09:42 Dose: 2,000 unit Clonazepam (Klonopin -) 1 mg GT TID [facility] Last Admin: 10/03/18 05:39 Dose: 1 mg Clonidine (Catapres -) 0.2 mg PO HS [facility] Last Admin: 10/02/18 22:41 Dose: 0.2 mg Heparin Sodium (Porcine) (Heparin -) 5,000 unit SQ BID [facility] Last Admin: 10/03/18 09:42 Dose: 5,000 unit Levetiracetam (Keppra Injection -) 1,500 mg IVPB BID [facility] Last Admin: 10/03/18 09:42 Dose: 1,500 mg Pantoprazole Sodium (Protonix Iv) 40 mg IVPUSH DAILY [facility] Last Admin: 10/03/18 09:42 Dose: 40 mg Scopolamine HBr (Transderm-Scop -) 1 patch TD Q72H [facility] Last Admin: 10/01/18 15:45 Dose: 1 patch Gen: NAD at rest Heart: RRR Lung: decreased breath sounds at the bases Abd: soft, nontender Ext: no edema, contracted Laboratory Results - last 24 hr 10/03/18 10/03/18 07:25 07:25 WBC 8.6 RBC 3.68 L Hgb 11.1 L Hct 31.8 L MCV 86.4 MCH 30.1 MCHC 34.8 RDW 14.9 Plt Count 401 D MPV 8.1 Absolute Neuts (auto) 6.1 Neutrophils % 70.9 D Lymphocytes % 20.7 D Monocytes % 6.6 Eosinophils % 1.2 Basophils % 0.6 Nucleated RBC % 0 Sodium 138 Potassium 3.9 Chloride 106 Carbon Dioxide 23 Anion Gap 8 BUN 11 Creatinine 0.5 L Creat Clearance w eGFR > 60 Random Glucose 102 Calcium 8.6 A/P s/p Acute Respiratory Failure Suspected Aspiration Pneumonitis / Pneumonia Severe Sepsis resolving +Troponins likely Demand Ischemia Mental Retardation/Cerebral Palsy Seizure Disorder Asthma Functional Quadriplegia - Off ABX per ID - O2 as needed - aspiration precautions - DVT/GI prophylaxis - No Pulmonary contraindication for D/C Dr Trevizo
--- NOTE | 2018-10-03 14:21 | PN ---
Physical Exam: SUBJECTIVE: Patient seen and examined. He appears comfortable. He is non- verbal. He had temp 99.9 this morning and is requiring oxygen - 86% on room air , improves to 90% with 3 L NC. OBJECTIVE: Vital Signs Period Temp Pulse Resp BP Sys/Don Pulse Ox Last 24 Hr 97.5 F-99.9 F 90-112 20-20 111-141/80-87 96-98 GENERAL: The patient is awake, alert, non-verbal, in no acute distress. LUNGS: Breath sounds equal, scattered rhonchi, no wheezes, no crackles, no accessory muscle use. HEART: Regular rhythm, tachycardic, S1, S2 without murmur, rub or gallop. ABDOMEN: Soft, nondistended, normoactive bowel sounds, no guarding, no rebound, no hepatosplenomegaly, no masses. EXTREMITIES: 2+ pulses, warm, well-perfused, no edema. Laboratory Results - last 24 hr 10/03/18 10/03/18 07:25 07:25 WBC 8.6 RBC 3.68 L Hgb 11.1 L Hct 31.8 L MCV 86.4 MCH 30.1 MCHC 34.8 RDW 14.9 Plt Count 401 D MPV 8.1 Absolute Neuts (auto) 6.1 Neutrophils % 70.9 D Lymphocytes % 20.7 D Monocytes % 6.6 Eosinophils % 1.2 Basophils % 0.6 Nucleated RBC % 0 Sodium 138 Potassium 3.9 Chloride 106 Carbon Dioxide 23 Anion Gap 8 BUN 11 Creatinine 0.5 L Creat Clearance w eGFR > 60 Random Glucose 102 Calcium 8.6 Active Medications Generic Name Dose Route Start Last Admin Trade Name Mercedez PRN Reason Stop Dose Admin Acetaminophen 750 mg 09/26/18 23:15 09/28/18 13:15 Ofirmev Injection - IVPB 750 mg Q6H PRN Administration FEVER Albuterol Sulfate 1 amp 10/03/18 14:18 Ventolin 0.083% Nebulizer Soln - NEB Q4H PRN SHORT OF BREATH/WHEEZING Aspirin 81 mg 09/27/18 22:00 10/02/18 22:41 Asa - GT 81 mg HS ALEKSANDR Administration Bacitracin 1 applic 09/27/18 10:00 10/03/18 09:46 Bacitracin - TP 1 applic DAILY ALEKSANDR Administration Baclofen 10 mg 09/27/18 06:00 02/04/19 11:48 Lioresal - GT 10 mg DAILY@0600,1200 ALEKSANDR Administration Baclofen 20 mg 09/27/18 00:00 10/02/18 23:07 Lioresal - GT 20 mg DAILY@1800,0000 ALEKSANDR Administration Carbamazepine 280 mg 09/27/18 10:00 10/03/18 09:45 Tegretol Oral Suspension - PO 280 mg BID ALEKSANDR Administration Cholecalciferol 2,000 unit 09/27/18 10:00 10/03/18 09:42 Vitamin D3 - GT 2,000 unit DAILY ALEKSANDR Administration Clonazepam 1 mg 09/27/18 06:00 10/03/18 13:24 Klonopin - GT 1 mg TID ALEKSANDR Administration Clonidine 0.2 mg 09/27/18 22:00 10/02/18 22:41 Catapres - PO 0.2 mg HS ALEKSANDR Administration Heparin Sodium (Porcine) 5,000 unit 09/27/18 10:00 10/03/18 09:42 Heparin - SQ 5,000 unit BID ALEKSANDR Administration Levetiracetam 1,500 mg 09/27/18 10:00 10/03/18 09:42 Keppra Injection - IVPB 1,500 mg BID ALEKSANDR Administration Pantoprazole Sodium 40 mg 09/27/18 10:00 10/03/18 09:42 Protonix Iv IVPUSH 40 mg DAILY ALEKSANDR Administration Scopolamine HBr 1 patch 09/28/18 14:15 10/01/18 15:45 Transderm-Scop - TD 1 patch Q72H ALEKSANDR Administration ASSESSMENT/PLAN: This is a 28 year old man from [facility] with a history of profound mental retardation, cerebral palsy, dysphagia, G-tube, seizure disorder , HTN, asthma who was sent to the ED for evaluation of productive cough and SOB. 1. Sepsis secondary to healthcare associated pneumonia, probable aspiration - Tmax 99.9 and WBC normal - Completed Zosyn - continue to observe of antibiotics 2. Acute hypoxic respiratory failure - s/p intubation - extubated 09/25 - Continue oxygen to maintain saturation >90% 3. Right pneumothorax - Pigtail catheter removed 09/26 4. Cerebral palsy with profound mental retardation - Continue Baclofen 5. Seizure disorder - Continue Keppra, Klonopin, Tegretol 6. Asthma - Continue albuterol nebs as needed 7. Dysphagia with aspiration - Continue Jevity via PEG 8. Hypernatremia - Improved 9. Hypokalemia - Improved 10. HTN - Continue Clonidine Visit type - Emergency Visit Emergency Visit: Yes ED Registration Date: 09/22/18 Care time: The patient presented to the Emergency Department on the above date and was hospitalized for further evaluation of their emergent condition. - New Patient This patient is new to me today: Yes Date on this admission: 10/03/18 - Critical Care Critical Care patient: No - Discharge Referral Referred to [facility] Med P.C.: No
[2018-10-03] MEDS: ACETAMINOPHEN 1000 MG/100 ML VIAL (NON FORMULARY) IVPB PRN (17:20)
[2018-10-03] MEDS: cloNIDine HCL 0.1 MG TABLET PO SCH (22:15)
[2018-10-03] MEDS: ASPIRIN 81 MG CHEWABLE TABLETS GT SCH (22:15)
[2018-10-04] MEDS: BACLOFEN 10 MG TABLET (FP) GT SCH ×5 (01:36→23:09)
[2018-10-04] MEDS: clonazePAM 0.5 MG TABLET GT SCH ×3 (05:39→22:58)
[2018-10-04 08:06] LABS: ANION GAP 7 MMOL/L (8-16); BLOOD UREA NITROGEN 19 mg/dL (7-18); CALCIUM 8.6 mg/dL (8.5-10.1); CHLORIDE 107 mmol/L (98-107); CO2 26 mmol/L (21-32); CREATININE 0.6 mg/dL (0.55-1.3); GLUCOSE,RANDOM 99 mg/dL (74-106); POTASSIUM 4.3 mmol/L (3.5-5.1); SODIUM 140 mmol/L (136-145)
[2018-10-04 08:07] LABS: HEMATOCRIT 31.3 % (35.4-49); HEMOGLOBIN 10.7 GM/dL (11.7-16.9); MCH 30.3 pg (25.7-33.7); MEAN CELL VOLUME 88.4 fl (80-96); RBC 3.54 M/mm3 (4.00-5.60); WHITE BLOOD COUNT 7.1 K/mm3 (4.0-10.0)
[2018-10-04 08:08] LABS: BASO % 0.7 % (0-2.0); EOS % 4.1 % (0-4.5); LYMPH % 33.8 % (8-40); MCHC 34.2 g/dl (32.0-35.9); MEAN PLT VOLUME 7.8 fl (7.5-11.1); MONO % 9.6 % (3.8-10.2); NEUT % 51.8 % (42.8-82.8); PLATELET COUNT 391 K/MM3 (134-434); RDW 15.1 % (11.9-15.9)
--- NOTE | 2018-10-04 10:48 | PN ---
Progress Note (short form) - Note Progress Note: Breathing is non-labored on NC O2. Low grade temps. Intake & Output 10/01/18 10/02/18 10/03/18 10/04/18 23:59 23:59 23:59 23:59 Intake Total 3300 3150 300 100 Balance 3300 3150 300 100 Last Vital Signs Temp Pulse Resp BP Pulse Ox 98.3 F 82 20 123/72 97 10/04/18 07:40 10/04/18 06:00 10/04/18 06:00 10/04/18 06:00 10/03/18 21:00 Active Medications Acetaminophen (Ofirmev Injection -) 750 mg IVPB Q6H PRN PRN Reason: FEVER Last Admin: 10/03/18 17:20 Dose: 750 mg Albuterol Sulfate (Ventolin 0.083% Nebulizer Soln -) 1 amp NEB Q4H PRN PRN Reason: SHORT OF BREATH/WHEEZING Last Admin: 10/03/18 20:20 Dose: 1 amp Aspirin (Asa -) 81 mg GT HS [facility] Last Admin: 10/03/18 22:15 Dose: 81 mg Bacitracin (Bacitracin -) 1 applic TP DAILY [facility] Last Admin: 10/03/18 09:46 Dose: 1 applic Baclofen (Lioresal -) 10 mg GT DAILY@0600,1200 [facility] Last Admin: 10/04/18 05:39 Dose: 10 mg Baclofen (Lioresal -) 20 mg GT DAILY@1800,0000 [facility] Last Admin: 10/04/18 01:36 Dose: 20 mg Carbamazepine (Tegretol Oral Suspension -) 280 mg PO BID [facility] Last Admin: 10/03/18 22:16 Dose: 280 mg Cholecalciferol (Vitamin D3 -) 2,000 unit GT DAILY [facility] Last Admin: 10/03/18 09:42 Dose: 2,000 unit Clonazepam (Klonopin -) 1 mg GT TID [facility] Last Admin: 10/04/18 05:39 Dose: 1 mg Clonidine (Catapres -) 0.2 mg PO HS [facility] Last Admin: 10/03/18 22:15 Dose: 0.2 mg Heparin Sodium (Porcine) (Heparin -) 5,000 unit SQ BID [facility] Last Admin: 10/03/18 22:16 Dose: 5,000 unit Levetiracetam (Keppra Injection -) 1,500 mg IVPB BID [facility] Last Admin: 10/03/18 22:15 Dose: 1,500 mg Pantoprazole Sodium (Protonix Iv) 40 mg IVPUSH DAILY [facility] Last Admin: 10/03/18 09:42 Dose: 40 mg Scopolamine HBr (Transderm-Scop -) 1 patch TD Q72H [facility] Last Admin: 10/01/18 15:45 Dose: 1 patch Gen: NAD at rest Heart: RRR Lung: decreased breath sounds at the bases, few scattered rhonchi Abd: soft, nontender Ext: no edema, contracted Laboratory Results - last 24 hr 10/04/18 10/04/18 06:30 06:30 WBC 7.1 RBC 3.54 L Hgb 10.7 L Hct 31.3 L MCV 88.4 MCH 30.3 MCHC 34.2 RDW 15.1 Plt Count 391 MPV 7.8 Absolute Neuts (auto) 3.7 Neutrophils % 51.8 D Lymphocytes % 33.8 D Monocytes % 9.6 Eosinophils % 4.1 D Basophils % 0.7 Nucleated RBC % 0 Sodium 140 Potassium 4.3 Chloride 107 Carbon Dioxide 26 Anion Gap 7 L BUN 19 H Creatinine 0.6 Creat Clearance w eGFR > 60 Random Glucose 99 Calcium 8.6 A/P s/p Acute Respiratory Failure Suspected Aspiration Pneumonitis / Pneumonia Severe Sepsis resolving +Troponins likely Demand Ischemia Mental Retardation/Cerebral Palsy Seizure Disorder Asthma Functional Quadriplegia - Check CXR - Off ABX per ID - O2 as needed - aspiration precautions - DVT/GI prophylaxis - No Pulmonary contraindication for D/C planning to [place] with supplemental O2 Dr Trevizo
--- NOTE | 2018-10-04 11:11 | PN ---
Physical Exam: SUBJECTIVE: Patient seen and examined at the bedside. still having low grade fevers. non verbal at baseline. OBJECTIVE: Vital Signs Period Temp Pulse Resp BP Sys/Don Pulse Ox Last 24 Hr 97.5 F-100.2 F 82-108 18-20 111-143/72-86 97 GENERAL awake alert. tolerating 2 liters nasal cannula. HEAD: Normal with no signs of trauma/microcephaly EYES: Pupils equal, round and reactive to light EARS, NOSE, THROAT: Ears normal, nares patent, oropharynx clear without exudates. Moist mucous membranes. NECK: Normal range of motion, supple without lymphadenopathy, JVD, or masses. LUNGS: mild congestion anteriorly HEART: nsr ABDOMEN: Soft, nontender, not distended, + g/j tube intact MUSCULOSKELETAL: contracted on all extremities - baseline UPPER EXTREMITIES: No peripheral edema. LOWER EXTREMITIES: No peripheral edema. NEUROLOGICAL: non verbal at baseline PSYCHIATRIC: calm Laboratory Results - last 24 hr 10/04/18 10/04/18 06:30 06:30 WBC 7.1 RBC 3.54 L Hgb 10.7 L Hct 31.3 L MCV 88.4 MCH 30.3 MCHC 34.2 RDW 15.1 Plt Count 391 MPV 7.8 Absolute Neuts (auto) 3.7 Neutrophils % 51.8 D Lymphocytes % 33.8 D Monocytes % 9.6 Eosinophils % 4.1 D Basophils % 0.7 Nucleated RBC % 0 Sodium 140 Potassium 4.3 Chloride 107 Carbon Dioxide 26 Anion Gap 7 L BUN 19 H Creatinine 0.6 Creat Clearance w eGFR > 60 Random Glucose 99 Calcium 8.6 Active Medications Generic Name Dose Route Start Last Admin Trade Name Santoq PRN Reason Stop Dose Admin Acetaminophen 750 mg 09/26/18 23:15 10/03/18 17:20 Ofirmev Injection - IVPB 750 mg Q6H PRN Administration FEVER Albuterol Sulfate 1 amp 10/03/18 14:18 10/03/18 20:20 Ventolin 0.083% Nebulizer Soln - NEB 1 amp Q4H PRN Administration SHORT OF BREATH/WHEEZING Aspirin 81 mg 09/27/18 22:00 10/03/18 22:15 Asa - GT 81 mg HS ALEKSANDR Administration Bacitracin 1 applic 09/27/18 10:00 10/03/18 09:46 Bacitracin - TP 1 applic DAILY ALEKSANDR Administration Baclofen 10 mg 09/27/18 06:00 10/04/18 05:39 Lioresal - GT 10 mg DAILY@0600,1200 ALEKSANDR Administration Baclofen 20 mg 09/27/18 00:00 10/04/18 01:36 Lioresal - GT 20 mg DAILY@1800,0000 ALEKSANDR Administration Carbamazepine 280 mg 09/27/18 10:00 10/03/18 22:16 Tegretol Oral Suspension - PO 280 mg BID ALEKSANDR Administration Cholecalciferol 2,000 unit 09/27/18 10:00 10/03/18 09:42 Vitamin D3 - GT 2,000 unit DAILY ALEKSANDR Administration Clonazepam 1 mg 09/27/18 06:00 10/04/18 05:39 Klonopin - GT 1 mg TID ALEKSANDR Administration Clonidine 0.2 mg 09/27/18 22:00 10/03/18 22:15 Catapres - PO 0.2 mg HS ALEKSANDR Administration Heparin Sodium (Porcine) 5,000 unit 09/27/18 10:00 10/03/18 22:16 Heparin - SQ 5,000 unit BID ALEKSANDR Administration Levetiracetam 1,500 mg 09/27/18 10:00 10/03/18 22:15 Keppra Injection - IVPB 1,500 mg BID ALEKSANDR Administration Pantoprazole Sodium 40 mg 09/27/18 10:00 10/03/18 09:42 Protonix Iv IVPUSH 40 mg DAILY ALEKSANDR Administration Scopolamine HBr 1 patch 09/28/18 14:15 10/01/18 15:45 Transderm-Scop - TD 1 patch Q72H ALEKSANDR Administration ASSESSMENT/PLAN: Patient is a 28 year old male with a significant past medical history of profound mental retardation, cerebral palsy, dysphagia, peg tube, seizures, hyponatremia and asthma. Patient is a resident at [facility]. He has had multiple admissions to [facility] for aspiration pneumonia. He comes in to the ED for shortness of breath and coughing up green mucus. In the ED he was noted to be with tachycardia and hypotension. He was intubated on admission, extubated on 2018. On admission patient developed a pneumothorax per chest xray and a pig tail connected to chest tube was placed. Chest tube removed on 09/26/2018. problem list ------- profound mental retardation microcephaly dysphagia, peg tube dependent seizures hyponatremia asthma aspiration pneumonia respiratory distress acute bronchitis rhabdo pneumothorax ------ ID: Severe Sepsis/likely secondary to aspiration pneumonia, vs cap vs. acute bronchitis - resolved. extubated 09/25/2018. bp stable. still having low grade fevers Completed Zosyn and Vanco, observe off antibiotics per ID Pulm: Right pneumothrax.- resolved. Pig tail to chest tube placed in the ED. less than 90cc noted. sero sang. pig tail removed 09/26/2018 On 3 liters of nasal cannula. Neuro: Seizure history. no seizures since admission On keppra, tegretol, baclophen. Renal rhabdo. presents with elevated cpk, now resolved. Card: Rule out ACS troponins negative Tachycardia, in the setting of sepsis Patient was a rapid response for tachycardia on 09/29/2018. heart rate stable, off antibiotics. Functional Quadraplegia. He is a total care, and requires q2 position changes to prevent skin breakdown. fen tube feeds monitor electrolytes tolerating jevity feeds disposition. full code. Visit type - Emergency Visit Emergency Visit: Yes ED Registration Date: 09/22/18 Care time: The patient presented to the Emergency Department on the above date and was hospitalized for further evaluation of their emergent condition. - New Patient This patient is new to me today: No - Critical Care Critical Care patient: No - Discharge Referral Referred to [facility] Med P.C.: No
[2018-10-04] MEDS: levETIRAcetam 500 MG/5 ML INJECTION VIAL IVPB SCH ×2 (11:40→22:57)
[2018-10-04] MEDS: HEPARIN NA (PORCINE) 5,000 UNITS/ML 1ML VIAL SQ SCH ×2 (11:42→22:58)
[2018-10-04] MEDS: CHOLECALCIFEROL (VITAMIN D3) 1,000 UNIT TABLET (FP) GT SCH (11:42)
[2018-10-04] MEDS: PANTOPRAZOLE SODIUM 40 MG VIAL IVPUSH SCH (11:44)
[2018-10-04] MEDS ORDERED: PT OWN MED DRAWER 7, Y5N ONE (11:44)
[2018-10-04] MEDS: carBAMazepine 200 MG/10 ML UNIT-DOSE CUP PO SCH ×2 (11:44→22:57)
[2018-10-04] MEDS: BACITRACIN 15 GM TUBE TOPICAL OINTMENT TP SCH (12:55)
[2018-10-04] MEDS: SCOPOLAMINE HYDROBROMIDE 1 PATCH PATCH.TD72 TD SCH (15:22)
[2018-10-04] MEDS: ALBUTEROL SO4 0.083% IH SOL 2.5 MG/3 ML VIAL.NEB. NEB PRN (20:11)
[2018-10-04] MEDS: ACETAMINOPHEN 1000 MG/100 ML VIAL (NON FORMULARY) IVPB PRN (22:56)
[2018-10-04] MEDS: cloNIDine HCL 0.1 MG TABLET PO SCH (22:57)
[2018-10-04] MEDS: ASPIRIN 81 MG CHEWABLE TABLETS GT SCH (22:58)
[2018-10-05] MEDS: BACLOFEN 10 MG TABLET (FP) GT SCH ×4 (05:26→23:24)
[2018-10-05] MEDS: clonazePAM 0.5 MG TABLET GT SCH ×3 (05:26→21:33)
[2018-10-05 10:03] LABS: BASO % 0.3 % (0-2.0); EOS % 2.6 % (0-4.5); HEMATOCRIT 34.7 % (35.4-49); HEMOGLOBIN 12.1 GM/dL (11.7-16.9); LYMPH % 26.2 % (8-40); MCH 30.4 pg (25.7-33.7); MCHC 34.8 g/dl (32.0-35.9); MEAN CELL VOLUME 87.2 fl (80-96); MEAN PLT VOLUME 7.7 fl (7.5-11.1); MONO % 5.5 % (3.8-10.2); NEUT % 65.4 % (42.8-82.8); PLATELET COUNT 501 K/MM3 (134-434); RBC 3.98 M/mm3 (4.00-5.60); RDW 15.2 % (11.9-15.9); WHITE BLOOD COUNT 12.5 K/mm3 (4.0-10.0)
[2018-10-05] MEDS: levETIRAcetam 500 MG/5 ML INJECTION VIAL IVPB SCH (10:16)
[2018-10-05] MEDS: HEPARIN NA (PORCINE) 5,000 UNITS/ML 1ML VIAL SQ SCH ×2 (10:16→21:33)
[2018-10-05] MEDS: PANTOPRAZOLE SODIUM 40 MG VIAL IVPUSH SCH (10:17)
[2018-10-05] MEDS: BACITRACIN 15 GM TUBE TOPICAL OINTMENT TP SCH (10:17)
[2018-10-05] MEDS: carBAMazepine 200 MG/10 ML UNIT-DOSE CUP PO SCH ×2 (10:17→21:32)
[2018-10-05] MEDS: CHOLECALCIFEROL (VITAMIN D3) 1,000 UNIT TABLET (FP) GT SCH (10:17)
[2018-10-05 11:22] LABS: ALBUMIN 3.3 g/dl (3.4-5.0); ALK PHOS 90 U/L (45-117); ANION GAP 9 MMOL/L (8-16); BILIRUBIN,TOTAL 0.3 mg/dL (0.2-1); BLOOD UREA NITROGEN 15 mg/dL (7-18); CALCIUM 8.8 mg/dL (8.5-10.1); CHLORIDE 103 mmol/L (98-107); CO2 24 mmol/L (21-32); CREATININE 0.5 mg/dL (0.55-1.3); GLUCOSE,RANDOM 103 mg/dL (74-106); POTASSIUM 4.2 mmol/L (3.5-5.1); SGOT/AST 18 U/L (15-37); SGPT/ALT 30 U/L (13-61); SODIUM 136 mmol/L (136-145); TOT PROT 8.3 g/dl (6.4-8.2)
--- NOTE | 2018-10-05 17:35 | PN ---
Physical Exam: SUBJECTIVE: Patient seen and examined at the bedside. non verbal. requires some suctioning prn. OBJECTIVE: wbc bumped up to 12.5, low grade fevers overnight. monitor for now if wbc better in a.m. and no fevers, will discharge back to [place] Vital Signs Period Temp Pulse Resp BP Sys/Dno Pulse Ox Last 24 Hr 98.1 F-100.1 F 82-104 18-20 106-133/61-80 99 GENERAL awake alert. tolerating 2 liters nasal cannula. HEAD: Normal with no signs of trauma/microcephaly EYES: Pupils equal, round and reactive to light EARS, NOSE, THROAT: Ears normal, nares patent, oropharynx clear without exudates. Moist mucous membranes. NECK: Normal range of motion, supple without lymphadenopathy, JVD, or masses. LUNGS: mild congestion anteriorly HEART: nsr ABDOMEN: Soft, nontender, not distended, + g/j tube intact MUSCULOSKELETAL: contracted on all extremities - baseline UPPER EXTREMITIES: No peripheral edema. LOWER EXTREMITIES: No peripheral edema. NEUROLOGICAL: non verbal at baseline PSYCHIATRIC: calm Laboratory Results - last 24 hr 10/05/18 10/05/18 09:36 09:36 WBC 12.5 H RBC 3.98 L Hgb 12.1 Hct 34.7 L MCV 87.2 MCH 30.4 MCHC 34.8 RDW 15.2 Plt Count 501 H D MPV 7.7 Absolute Neuts (auto) 8.2 H Neutrophils % 65.4 D Lymphocytes % 26.2 D Monocytes % 5.5 Eosinophils % 2.6 Basophils % 0.3 Nucleated RBC % 0 Sodium 136 Potassium 4.2 Chloride 103 Carbon Dioxide 24 Anion Gap 9 BUN 15 Creatinine 0.5 L Creat Clearance w eGFR > 60 Random Glucose 103 Calcium 8.8 Total Bilirubin 0.3 AST 18 ALT 30 Alkaline Phosphatase 90 Total Protein 8.3 H Albumin 3.3 L Active Medications Generic Name Dose Route Start Last Admin Trade Name Freq PRN Reason Stop Dose Admin Albuterol Sulfate 1 amp 10/03/18 14:18 10/04/18 20:11 Ventolin 0.083% Nebulizer Soln - NEB 1 amp Q4H PRN Administration SHORT OF BREATH/WHEEZING Aspirin 81 mg 09/27/18 22:00 10/04/18 22:58 Asa - GT 81 mg HS ALEKSANDR Administration Bacitracin 1 applic 09/27/18 10:00 10/05/18 10:17 Bacitracin - TP 1 applic DAILY ALEKSANDR Administration Baclofen 10 mg 09/27/18 06:00 10/05/18 12:57 Lioresal - GT 10 mg DAILY@0600,1200 ALEKSANDR Administration Baclofen 20 mg 09/27/18 00:00 10/04/18 23:09 Lioresal - GT 20 mg DAILY@1800,0000 ALEKSANDR Administration Carbamazepine 280 mg 09/27/18 10:00 10/05/18 10:17 Tegretol Oral Suspension - PO 280 mg BID ALEKSANDR Administration Cholecalciferol 2,000 unit 09/27/18 10:00 10/05/18 10:17 Vitamin D3 - GT 2,000 unit DAILY ALEKSANDR Administration Clonazepam 1 mg 09/27/18 06:00 10/05/18 14:52 Klonopin - GT 1 mg TID ALEKSANDR Administration Clonidine 0.2 mg 09/27/18 22:00 10/04/18 22:57 Catapres - PO 0.2 mg HS ALEKSANDR Administration Heparin Sodium (Porcine) 5,000 unit 09/27/18 10:00 10/05/18 10:16 Heparin - SQ 5,000 unit BID ALEKSANDR Administration Levetiracetam 1,500 mg 10/05/18 22:00 Keppra Oral Solution - GT BID ALEKSANDR Pantoprazole Sodium 40 mg 09/27/18 10:00 10/05/18 10:17 Protonix Iv IVPUSH 40 mg DAILY ALEKSANDR Administration Scopolamine HBr 1 patch 09/28/18 14:15 10/04/18 15:22 Transderm-Scop - TD 1 patch Q72H ALEKSANDR Administration ASSESSMENT/PLAN: Patient is a 28 year old male with a significant past medical history of profound mental retardation, cerebral palsy, dysphagia, peg tube, seizures, hyponatremia and asthma. Patient is a resident at [facility]. He has had multiple admissions to [facility] for aspiration pneumonia. He comes in to the ED for shortness of breath and coughing up green mucus. In the ED he was noted to be with tachycardia and hypotension. He was intubated on admission, extubated on 2018. On admission patient developed a pneumothorax per chest xray and a pig tail connected to chest tube was placed. Chest tube removed on 09/26/2018. problem list ------- profound mental retardation microcephaly dysphagia, peg tube dependent seizures hyponatremia asthma aspiration pneumonia respiratory distress acute bronchitis rhabdo pneumothorax ------ ID: Severe Sepsis/likely secondary to aspiration pneumonia, vs cap vs. acute bronchitis - resolved. extubated 09/25/2018. bp stable. still having low grade fevers Completed Zosyn and Vanco, observe off antibiotics per ID Leukocytosis, mild bump up today. monitor. if fevers start and wbc remains elevated, will re-consult ID Pulm: Right pneumothrax.- resolved. Pig tail to chest tube placed in the ED. less than 90cc noted. sero sang. pig tail removed 09/26/2018 On 3 liters of nasal cannula. Neuro: Seizure history. no seizures since admission On keppra, tegretol, baclophen. Renal rhabdo. presents with elevated cpk, now resolved. Card: Rule out ACS troponins negative Tachycardia, in the setting of sepsis Patient was a rapid response for tachycardia on 09/29/2018. heart rate stable, off antibiotics. Functional Quadraplegia. He is a total care, and requires q2 position changes to prevent skin breakdown. fen tube feeds monitor electrolytes tolerating jevity feeds disposition. full code. Visit type - Emergency Visit Emergency Visit: Yes ED Registration Date: 09/22/18 Care time: The patient presented to the Emergency Department on the above date and was hospitalized for further evaluation of their emergent condition. - New Patient This patient is new to me today: No - Critical Care Critical Care patient: No - Discharge Referral Referred to [facility] Med P.C.: No
[2018-10-05] MEDS: ALBUTEROL SO4 0.083% IH SOL 2.5 MG/3 ML VIAL.NEB. NEB PRN (20:11)
[2018-10-05] MEDS: ASPIRIN 81 MG CHEWABLE TABLETS GT SCH (21:31)
[2018-10-05] MEDS: levETIRAcetam 500 MG/5 ML ORAL SOLUTION (UNIT-DOSE CUPS) GT SCH (21:32)
[2018-10-05] MEDS: cloNIDine HCL 0.1 MG TABLET PO SCH (21:33)
[2018-10-06] MEDS: BACLOFEN 10 MG TABLET (FP) GT SCH ×3 (05:49→17:40)
[2018-10-06] MEDS: clonazePAM 0.5 MG TABLET GT SCH ×3 (05:49→22:11)
[2018-10-06] MEDS ORDERED: PT OWN MED DRAWER 7, Y5N ONE ×2 (10:13→21:05)
[2018-10-06] MEDS: CHOLECALCIFEROL (VITAMIN D3) 1,000 UNIT TABLET (FP) GT SCH (10:17)
[2018-10-06] MEDS: HEPARIN NA (PORCINE) 5,000 UNITS/ML 1ML VIAL SQ SCH ×2 (10:18→22:10)
[2018-10-06] MEDS: PANTOPRAZOLE SODIUM 40 MG VIAL IVPUSH SCH (10:18)
[2018-10-06] MEDS: carBAMazepine 200 MG/10 ML UNIT-DOSE CUP PO SCH ×2 (10:19→22:12)
[2018-10-06] MEDS: levETIRAcetam 500 MG/5 ML ORAL SOLUTION (UNIT-DOSE CUPS) GT SCH ×2 (10:19→22:10)
[2018-10-06] MEDS: BACITRACIN 15 GM TUBE TOPICAL OINTMENT TP SCH (10:19)
--- NOTE | 2018-10-06 10:44 | PN ---
Progress Note (short form) - Note Progress Note: Breathing is non-labored on NC O2. Afebrile this AM. Intake & Output 10/03/18 10/04/18 10/05/18 10/06/18 23:59 23:59 23:59 23:59 Intake Total 300 640 515 315 Balance 300 640 515 315 Last Vital Signs Temp Pulse Resp BP Pulse Ox 97.4 F L 89 18 126/76 97 10/06/18 02:00 10/06/18 06:00 10/06/18 06:00 10/06/18 06:00 10/05/18 21:00 Active Medications Albuterol Sulfate (Ventolin 0.083% Nebulizer Soln -) 1 amp NEB Q4H PRN PRN Reason: SHORT OF BREATH/WHEEZING Last Admin: 10/05/18 20:11 Dose: 1 amp Aspirin (Asa -) 81 mg GT HS [facility] Last Admin: 10/05/18 21:31 Dose: 81 mg Bacitracin (Bacitracin -) 1 applic TP DAILY [facility] Last Admin: 10/06/18 10:19 Dose: 1 applic Baclofen (Lioresal -) 10 mg GT DAILY@0600,1200 [facility] Last Admin: 10/06/18 05:49 Dose: 10 mg Baclofen (Lioresal -) 20 mg GT DAILY@1800,0000 [facility] Last Admin: 10/05/18 23:24 Dose: 20 mg Carbamazepine (Tegretol Oral Suspension -) 280 mg PO BID [facility] Last Admin: 10/06/18 10:19 Dose: 280 mg Cholecalciferol (Vitamin D3 -) 2,000 unit GT DAILY [facility] Last Admin: 10/06/18 10:17 Dose: 2,000 unit Clonazepam (Klonopin -) 1 mg GT TID [facility] Last Admin: 10/06/18 05:49 Dose: 1 mg Clonidine (Catapres -) 0.2 mg PO HS [facility] Last Admin: 10/05/18 21:33 Dose: 0.2 mg Heparin Sodium (Porcine) (Heparin -) 5,000 unit SQ BID [facility] Last Admin: 10/06/18 10:18 Dose: 5,000 unit Levetiracetam (Keppra Oral Solution -) 1,500 mg GT BID [facility] Last Admin: 10/06/18 10:19 Dose: 1,500 mg Pantoprazole Sodium (Protonix Iv) 40 mg IVPUSH DAILY [facility] Last Admin: 10/06/18 10:18 Dose: 40 mg Scopolamine HBr (Transderm-Scop -) 1 patch TD Q72H [facility] Last Admin: 10/04/18 15:22 Dose: 1 patch Gen: NAD at rest Heart: RRR Lung: decreased breath sounds at the bases, few scattered rhonchi Abd: soft, nontender Ext: no edema, contracted Laboratory Results - last 24 hr 10/05/18 09:36 Sodium 136 Potassium 4.2 Chloride 103 Carbon Dioxide 24 Anion Gap 9 BUN 15 Creatinine 0.5 L Creat Clearance w eGFR > 60 Random Glucose 103 Calcium 8.8 Total Bilirubin 0.3 AST 18 ALT 30 Alkaline Phosphatase 90 Total Protein 8.3 H Albumin 3.3 L A/P s/p Acute Respiratory Failure Suspected Aspiration Pneumonitis / Pneumonia Severe Sepsis resolving +Troponins likely Demand Ischemia Mental Retardation/Cerebral Palsy Seizure Disorder Asthma Functional Quadriplegia - Off ABX per ID - O2 as needed - aspiration precautions - DVT/GI prophylaxis - No Pulmonary contraindication for D/C planning to [place] with supplemental O2 Dr Trevizo
[2018-10-06 11:13] LABS: BASO % 0.4 % (0-2.0); EOS % 2.1 % (0-4.5); HEMATOCRIT 33.7 % (35.4-49); HEMOGLOBIN 11.5 GM/dL (11.7-16.9); LYMPH % 22.6 % (8-40); MCH 29.8 pg (25.7-33.7); MCHC 34.1 g/dl (32.0-35.9); MEAN CELL VOLUME 87.5 fl (80-96); MEAN PLT VOLUME 7.6 fl (7.5-11.1); MONO % 6.1 % (3.8-10.2); NEUT % 68.8 % (42.8-82.8); PLATELET COUNT 503 K/MM3 (134-434); RBC 3.86 M/mm3 (4.00-5.60); RDW 15.5 % (11.9-15.9); WHITE BLOOD COUNT 9.3 K/mm3 (4.0-10.0)
[2018-10-06 11:33] LABS: ALBUMIN 3.1 g/dl (3.4-5.0); ALK PHOS 82 U/L (45-117); ANION GAP 7 MMOL/L (8-16); BILIRUBIN,TOTAL 0.2 mg/dL (0.2-1); BLOOD UREA NITROGEN 16 mg/dL (7-18); CHLORIDE 103 mmol/L (98-107); CO2 25 mmol/L (21-32); CREATININE 0.4 mg/dL (0.55-1.3); GLUCOSE,RANDOM 109 mg/dL (74-106); POTASSIUM 4.2 mmol/L (3.5-5.1); SGOT/AST 12 U/L (15-37); SGPT/ALT 26 U/L (13-61); SODIUM 135 mmol/L (136-145); TOT PROT 7.8 g/dl (6.4-8.2)
--- NOTE | 2018-10-06 15:50 | DS ---
Physical Exam: SUBJECTIVE: Patient seen and examined at the bedside. Feels well, in no acute distress, mentation back to baseline. He is non verbal and has profound MR but appears back to his baseline. OBJECTIVE: discharge back to [place] Vital Signs Period Temp Pulse Resp BP Sys/Don Pulse Ox Last 24 Hr 97.4 F-99.4 F 67-107 18-18 116-135/73-90 97 PHYSICAL EXAM GENERAL awake alert. tolerating 2 liters nasal cannula. HEAD: Normal with no signs of trauma/microcephaly EYES: Pupils equal, round and reactive to light EARS, NOSE, THROAT: Ears normal, nares patent, oropharynx clear without exudates. Moist mucous membranes. NECK: Normal range of motion, supple without lymphadenopathy, JVD, or masses. LUNGS: mild congestion anteriorly HEART: nsr ABDOMEN: Soft, nontender, not distended, + g/j tube intact MUSCULOSKELETAL: contracted on all extremities - baseline UPPER EXTREMITIES: No peripheral edema. LOWER EXTREMITIES: No peripheral edema. NEUROLOGICAL: non verbal at baseline PSYCHIATRIC: calm LABS Laboratory Results - last 24 hr 10/06/18 10/06/18 10:40 10:40 WBC 9.3 RBC 3.86 L Hgb 11.5 L Hct 33.7 L MCV 87.5 MCH 29.8 MCHC 34.1 RDW 15.5 Plt Count 503 H MPV 7.6 Absolute Neuts (auto) 6.4 Neutrophils % 68.8 Lymphocytes % 22.6 Monocytes % 6.1 Eosinophils % 2.1 Basophils % 0.4 Nucleated RBC % 0 Sodium 135 L Potassium 4.2 Chloride 103 Carbon Dioxide 25 Anion Gap 7 L BUN 16 Creatinine 0.4 L Creat Clearance w eGFR > 60 Random Glucose 109 H Calcium 9.0 Total Bilirubin 0.2 AST 12 L ALT 26 Alkaline Phosphatase 82 Total Protein 7.8 Albumin 3.1 L Date of Admission:09/22/18 Date of Discharge: 10/06/18 HOSPITAL COURSE: Patient is a 28 year old male with a significant past medical history of profound mental retardation, cerebral palsy, dysphagia, peg tube, seizures, hyponatremia and asthma. Patient is a resident at [facility]. He has had multiple admissions to [facility] for aspiration pneumonia. He comes in to the ED for shortness of breath and coughing up green mucus. In the ED he was noted to be with tachycardia and hypotension. He was intubated on admission for worsening dyspnea. He was extubated on 09/25/2018. On admission patient developed a pneumothorax per chest xray and a pig tail connected to chest tube was placed. Chest tube removed on 09/26/2018 and his chest xray has been stable. HOSPITAL COURSE BY PROBLEM LIST: ------- profound mental retardation, chronic microcephaly, chronic dysphagia, peg tube dependent - replaced 09/27/2018 seizures, none during hospitalization hyponatremia, resolved asthma, stable aspiration pneumonia, measures to prevent outlined in d/c instructions respiratory distress, resolved acute bronchitis, resolved rhabdo, resolved pneumothorax, treated and resolved ------ ID: Severe Sepsis/likely secondary to aspiration pneumonia, vs cap vs. acute bronchitis - resolved. Completed Zosyn and Vanco and we have observed him off antibiotics. He remains afebrile and his WBC are now within normal limits. He was intubated on admssion to protect his airway and extubated on 09/25/2018. vitals signs are stable. No fevers. Leukocytosis, resolved. Pulm: Right pneumothrax.- resolved. Pig tail to chest tube placed in the ED on admission. less than 90cc noted. sero sang. pig tail removed 09/26/2018 On 3 liters of nasal cannula. Neuro: Seizure history. no seizures during hospitalization On keppra, tegretol, baclophen. Renal rhabdo. presents with elevated cpk, now resolved. Card: Rule out ACS troponins negative Tachycardia, in the setting of sepsis Patient was a rapid response for tachycardia on 09/29/2018. heart rate stable, off antibiotics. Has maintain normal heart rate. Functional Quadraplegia. He is a total care, and requires q2 position changes to prevent skin breakdown. DISCHARGE PLAN: Pulmonary follow up outpatient within 1-2 weeks of discharge Keep Head of BED up at 45 degrees with feeds. Stop feeds 1/2 hour before laying patient flat. Recommend that he receives his feeds in an upright position. Minutes to complete discharge: 60 Discharge Summary Reason For Visit: SEPSIS Current Active Problems Aspiration pneumonia (Acute) Fever (Acute) Functional quadriplegia (Acute) Sepsis (Acute) Tachycardia (Acute) Condition: Improved - Instructions Diet, Activity, Other Instructions: [facility] Staff: Mr. Lara was admitted on 09/22/2018 for sepsis due to pneumonia. On admission, he was intubated to protect his airway as he was having difficulty breathing. We have extubated him on 09/25/2018. During placement of a central catheter, he developed a right pneumothorax and had a pig tail catheter placed with a chest tube. The pig tail catheter was removed on 09/26/2018 and his breathing has stabilized. He has been followed by infectious disease and clinical exercise specialist during his stay. We recommend that he follows up with the clinical exercise specialist within 1-2 weeks after discharge for follow up visit. Here are our recommendations: SEPSIS. RESOLVED Acute Pneumonia, Aspiration Pneumonia Please stop tube feeds before laying patient flat. Maintain HOB at least 45 degrees with feeds and check for any residual. He will require continuous oxygen at 2 liters until he fully recovers. He has completed his full antibiotic course and will be sent back home without any further antibiotics. He remains fever free and his WBC is now stable. GT Tube > replaced on 09/27/2018 RIGHT PNEUMOTHORAX. RESOLVED Pig tail to chest tube placed in the ED. less than 90cc noted. sero sang. pig tail removed 09/26/2018 On 2 liters of nasal cannula. Maintain oxygen levels at 92% or better on the supplemental oxygen NEURO: Seizure history. no seizures during hospitalization On keppra, tegretol, baclophen. FUNCTIONAL QUADRIPLEGIA He is a total care, and requires q2 position changes to prevent skin breakdown. FOLLOW UP: We highly recommend that he is seen by the clinical exercise specialist within 1-2 weeks after he is discharged. This will help us determine his ongoing need for oxygen. Please flush his G tube to keep it patent. It has been replaced on 09/27/2018. I am available for any questions and concerns. thank you for allowing us to care for Mr. Lara. Carri Briannarick [place] [facility] @ [facility] [phone] Referrals: Inocente Trevizo MD [Staff Physician] - 1 Week Disposition: [facility] - Home Medications Comprehensive Discharge Medication List: Ambulatory Orders levETIRAcetam [Keppra Oral Solution -] 1,500 mg GT BID 01/19/15 Aspirin [ASA -] 81 mg GT HS 03/17/18 Carbamazepine [Tegretol -] 280 mg GT BID 03/17/18 Cholecalciferol (Vitamin D3) [Vitamin D3] 2,000 unit GT DAILY 03/17/18 Omeprazole Magnesium [Prilosec] 20 mg GT DAILY 03/17/18 Tamsulosin HCl [Flomax -] 0.4 mg GT DAILY 03/17/18 cloNIDine HCL [Catapres -] 0.2 mg PO HS 03/17/18 clonazePAM [KlonoPIN -] 1 mg GT TID 03/17/18 Baclofen [Lioresal -] 10 mg PO DAILY@0600,1200 tablet 03/21/18 Baclofen [Lioresal -] 20 mg GT DAILY@1800,0000 tablet 03/21/18 Budesonide [Pulmicort 0.5 mg Nebulizer -] 1 neb NEB BID 07/12/18 Diazepam [Diastat Acudial] 20 mg RC PRN PRN 07/12/18 Ipratropium/Albuterol Sulfate [Iprat-Albut 0.5-3(2.5) mg/3 ml] 3 ml IH QID PRN 07/12/18 Nystatin Ointment [Mycostatin Ointment -] 1 applic TP BID 07/12/18 Triamcinolone 0.1% Cream [Aristocort 0.1% Cream -] 1 applic TP BID 07/12/18 Albuterol 2.5/Ipratropium 0.5 [Duoneb -] 1 amp NEB RQ4H amp 07/18/18 Scopolamine Hydrobromide [Transderm-Scop -] 1 patch TD Q72H #10 patch.td72 07/18 Lactose-Reduced Food/Fiber [Jevity 1.5 Hermes Liquid] 100 ml GT DAILY 08/11/18 Mupirocin Ointment [Bactroban 2% Ointment -] 1 applic TP TID 08/11/18 levETIRAcetam [Keppra Oral Solution -] 1,500 mg GT BID cup 10/06/18 This patient is new to me today: No Emergency Visit: Yes ED Registration Date: 09/22/18 Care time: The patient presented to the Emergency Department on the above date and was hospitalized for further evaluation of their emergent condition. Critical Care patient: No - Discharge Referral Referred to [facility] Med P.C.: No
[2018-10-06] MEDS: cloNIDine HCL 0.1 MG TABLET PO SCH (22:11)
[2018-10-06] MEDS: ASPIRIN 81 MG CHEWABLE TABLETS GT SCH (22:12)
[2018-10-07] MEDS: BACLOFEN 10 MG TABLET (FP) GT SCH ×4 (01:13→17:40)
[2018-10-07] MEDS ORDERED: PT OWN MED DRAWER 7, Y5N ONE (01:36)
[2018-10-07] MEDS: clonazePAM 0.5 MG TABLET GT SCH ×3 (05:28→23:52)
[2018-10-07] MEDS: carBAMazepine 200 MG/10 ML UNIT-DOSE CUP PO SCH ×2 (10:30→23:54)
[2018-10-07] MEDS: PANTOPRAZOLE SODIUM 40 MG VIAL IVPUSH SCH (10:30)
[2018-10-07] MEDS: levETIRAcetam 500 MG/5 ML ORAL SOLUTION (UNIT-DOSE CUPS) GT SCH ×2 (10:30→23:54)
[2018-10-07] MEDS: BACITRACIN 15 GM TUBE TOPICAL OINTMENT TP SCH (10:30)
[2018-10-07] MEDS: HEPARIN NA (PORCINE) 5,000 UNITS/ML 1ML VIAL SQ SCH ×2 (10:30→23:52)
[2018-10-07] MEDS: CHOLECALCIFEROL (VITAMIN D3) 1,000 UNIT TABLET (FP) GT SCH (10:30)
[2018-10-07] MEDS: SCOPOLAMINE HYDROBROMIDE 1 PATCH PATCH.TD72 TD SCH (13:22)
--- NOTE | 2018-10-07 14:19 | PN ---
Progress Note, Physician History of Present Illness: PULMONARY ALERT,NO DISTRESS - Current Medication List Current Medications: Active Medications Albuterol Sulfate (Ventolin 0.083% Nebulizer Soln -) 1 amp NEB Q4H PRN PRN Reason: SHORT OF BREATH/WHEEZING Last Admin: 10/05/18 20:11 Dose: 1 amp Aspirin (Asa -) 81 mg GT HS [facility] Last Admin: 10/06/18 22:12 Dose: 81 mg Bacitracin (Bacitracin -) 1 applic TP DAILY [facility] Last Admin: 10/07/18 10:30 Dose: 1 applic Baclofen (Lioresal -) 10 mg GT DAILY@0600,1200 [facility] Last Admin: 10/07/18 13:21 Dose: 10 mg Baclofen (Lioresal -) 20 mg GT DAILY@1800,0000 [facility] Last Admin: 10/07/18 01:13 Dose: 20 mg Carbamazepine (Tegretol Oral Suspension -) 280 mg PO BID [facility] Last Admin: 10/07/18 10:30 Dose: 280 mg Cholecalciferol (Vitamin D3 -) 2,000 unit GT DAILY [facility] Last Admin: 10/07/18 10:30 Dose: 2,000 unit Clonazepam (Klonopin -) 1 mg GT TID [facility] Last Admin: 10/07/18 13:22 Dose: 1 mg Clonidine (Catapres -) 0.2 mg PO HS [facility] Last Admin: 10/06/18 22:11 Dose: 0.2 mg Heparin Sodium (Porcine) (Heparin -) 5,000 unit SQ BID [facility] Last Admin: 10/07/18 10:30 Dose: 5,000 unit Levetiracetam (Keppra Oral Solution -) 1,500 mg GT BID [facility] Last Admin: 10/07/18 10:30 Dose: 1,500 mg Pantoprazole Sodium (Protonix Iv) 40 mg IVPUSH DAILY [facility] Last Admin: 10/07/18 10:30 Dose: 40 mg Scopolamine HBr (Transderm-Scop -) 1 patch TD Q72H [facility] Last Admin: 10/07/18 13:22 Dose: 1 patch - Objective Vital Signs: Vital Signs Temperature 98.4 F 10/07/18 06:38 Pulse Rate 87 10/07/18 06:38 Respiratory Rate 20 10/07/18 06:38 Blood Pressure 138/81 10/07/18 06:38 O2 Sat by Pulse Oximetry (%) 99 10/06/18 21:00 Constitutional: Yes: Calm, Thin Eyes: Yes: WNL HENT: Yes: WNL Neck: Yes: WNL Cardiovascular: Yes: Regular Rate and Rhythm, S1, S2 Respiratory: Yes: Rhonchi (SCATTERED RHONCHI) Gastrointestinal: Yes: Normal Bowel Sounds, Soft Extremities: Yes: Other (CONTRACTED) Edema: No Labs: CBC, BMP Problem List - Problems (1) Fever Code(s): R50.9 - FEVER, UNSPECIFIED (2) Sepsis Code(s): A41.9 - SEPSIS, UNSPECIFIED ORGANISM Qualifiers: Sepsis type: sepsis due to unspecified organism Qualified Code(s): A41.9 - Sepsis, unspecified organism (3) Tachycardia Code(s): R00.0 - TACHYCARDIA, UNSPECIFIED (4) Gastrostomy tube dysfunction Code(s): K94.23 - GASTROSTOMY MALFUNCTION (5) Cerebral palsy Code(s): G80.9 - CEREBRAL PALSY, UNSPECIFIED Qualifiers: Cerebral palsy type: unspecified type Qualified Code(s): G80.9 - Cerebral palsy, unspecified (6) Seizure Code(s): R56.9 - UNSPECIFIED CONVULSIONS (7) Asthma Code(s): J45.909 - UNSPECIFIED ASTHMA, UNCOMPLICATED Assessment/Plan A/P s/p Acute Respiratory Failure r/o Pneumonia Severe Sepsis resolving +Troponins likely [place] Ischemia Mental Retardation/Cerebral Palsy Seizure Disorder Asthma Functional Quadriplegia - continue antibiotics - monitor urine output, creatinine - aspiration precautions - DVT/GI prophylaxis DR WALSH
[2018-10-07] MEDS ORDERED: SODIUM CHLORIDE 500 ML IV STA (20:28)
--- NOTE | 2018-10-07 20:39 | HOSP ---
Physical Examination Vital Signs: Vital Signs Temperature 99.2 F 10/07/18 18:37 Pulse Rate 89 10/07/18 18:37 Respiratory Rate 20 10/07/18 18:37 Blood Pressure 134/96 10/07/18 18:37 O2 Sat by Pulse Oximetry (%) 98 10/07/18 09:00 Labs: CBC, BMP 10/06/18 10:40 10/06/18 10:40 Hospitalist Encounter Assessment: Called to evaluate patient due to elevated heart rate prior to discharge. Informed that EMS arrived to transport back to [place]. Vitals HR 180 reported prior to arrival, 140 on arrival 150/70s Temp 101 95% on 2L Nonverbal, mild distress, diaphoretic Diffuse Rhonchi, audible gurgling noted without stethoscope Tachycardic, seemingly regular rhythm A/P Sepsis possibly secondary to aspiration CBC, CMP, Lactic Acid, Blood/Urine c/s CXR EKG 500 cc bolus NS Vanc/Zosyn after cultures Notified primary coverage Visit type - Emergency Visit Emergency Visit: Yes ED Registration Date: 09/22/18 Care time: The patient presented to the Emergency Department on the above date and was hospitalized for further evaluation of their emergent condition. - New Patient This patient is new to me today: Yes Date on this admission: 10/07/18 - Critical Care Critical Care patient: No
--- NOTE | 2018-10-07 21:20 | HOSP ---
Subjective - Review of Symptoms General: Yes: Other Pulmonary: Yes: Cough Physical Examination Vital Signs: Vital Signs Temperature 99.2 F 10/07/18 18:37 Pulse Rate 89 10/07/18 18:37 Respiratory Rate 20 10/07/18 18:37 Blood Pressure 134/96 10/07/18 18:37 O2 Sat by Pulse Oximetry (%) 98 10/07/18 09:00 Constitutional: Yes: No Distress Respiratory: Yes: Cough Gastrointestinal: Yes: Other Labs: CBC, BMP 10/06/18 10:40 10/06/18 10:40 Hospitalist Encounter Assessment: Patient seen and examined at the bedside. RN at bed side No overnight events Patient vitals are stable, sunctioned prn with clear phlegm No fevers --- Plan: discharge back to [place] Awaiting oxygen tank to be delivered to facility. Discussed with RN and SW Signout given to Dr. Mayorga on 10/06/18, patient accepted back
[2018-10-07] MEDS ORDERED: ACETAMINOPHEN 325 MG TABLET (FP) ONE (21:21)
[2018-10-07 21:32] LABS: BASO % 0.4 % (0-2.0); EOS % 0.2 % (0-4.5); HEMOGLOBIN 13.1 GM/dL (11.7-16.9); LYMPH % 7.4 % (8-40); MCHC 35.4 g/dl (32.0-35.9); MEAN CELL VOLUME 87.5 fl (80-96); MEAN PLT VOLUME 7.7 fl (7.5-11.1); MONO % 5.1 % (3.8-10.2); NEUT % 86.9 % (42.8-82.8); PLATELET COUNT 578 K/MM3 (134-434); RBC 4.23 M/mm3 (4.00-5.60); RDW 15.2 % (11.9-15.9); WHITE BLOOD COUNT 14.5 K/mm3 (4.0-10.0)
[2018-10-07 22:03] LABS: ALBUMIN 3.7 g/dl (3.4-5.0); ALK PHOS 105 U/L (45-117); ANION GAP 9 MMOL/L (8-16); BILIRUBIN,TOTAL 0.3 mg/dL (0.2-1); BLOOD UREA NITROGEN 17 mg/dL (7-18); CALCIUM 9.3 mg/dL (8.5-10.1); CHLORIDE 103 mmol/L (98-107); CO2 24 mmol/L (21-32); CREATININE 0.6 mg/dL (0.55-1.3); GLUCOSE,RANDOM 98 mg/dL (74-106); POTASSIUM 4.2 mmol/L (3.5-5.1); SGOT/AST 19 U/L (15-37); SGPT/ALT 30 U/L (13-61); SODIUM 137 mmol/L (136-145); TOT PROT 9.1 g/dl (6.4-8.2)
[2018-10-07] MEDS ORDERED: VANCOMYCIN 750 MG in DEXTROSE 5%-WATER - 250 ML IVPB ONE (23:00)
[2018-10-07] MEDS ORDERED: PIPERACILLIN/TAZOB 3.375 GM 3.375 GM in DEXTROSE 5%-WATER - 50 ML IVPB ONE (23:00)
[2018-10-07] MEDS: ASPIRIN 81 MG CHEWABLE TABLETS GT SCH (23:52)
[2018-10-07] MEDS: cloNIDine HCL 0.1 MG TABLET PO SCH (23:52)
[2018-10-08] MEDS: BACLOFEN 10 MG TABLET (FP) GT SCH ×4 (01:38→17:56)
[2018-10-08] MEDS ORDERED: PIPERACILLIN/TAZOBACTAM 3.375 GM VIAL IVPB ONE ×2 (02:45→14:11)
[2018-10-08] MEDS ORDERED: DEXTROSE 5%-WATER - 50 ML IVPB ONE ×3 (02:46→17:47)
[2018-10-08] MEDS: clonazePAM 0.5 MG TABLET GT SCH ×3 (05:47→22:56)
[2018-10-08] MEDS: ALBUTEROL SO4 0.083% IH SOL 2.5 MG/3 ML VIAL.NEB. NEB PRN (07:45)
--- NOTE | 2018-10-08 10:43 | PN ---
Physical Exam: SUBJECTIVE: Patient seen and examined at the bedside. awake and alert overnight became tachycardic, with fever and possible shaking chills per report. given vanco and zosyn. discharge cancelled. ID reconsulted. overnight was given 500cc bolus, vanco/zosyn x 1. chest xray unchanged, lactic acid 2.0 OBJECTIVE: Vital Signs Period Temp Pulse Resp BP Sys/Don Pulse Ox Last 24 Hr 97.8 F-101 F 89-108 20-22 85-138/52-96 99 GENERAL awake alert. tolerating 2 liters nasal cannula. HEAD: Normal with no signs of trauma/microcephaly EYES: Pupils equal, round and reactive to light EARS, NOSE, THROAT: Ears normal, nares patent, oropharynx clear without exudates. Moist mucous membranes. NECK: Normal range of motion, supple without lymphadenopathy, JVD, or masses. LUNGS: mild congestion anteriorly HEART: nsr, tachy overnight ABDOMEN: Soft, nontender, not distended, + g/j tube intact MUSCULOSKELETAL: contracted on all extremities - baseline UPPER EXTREMITIES: No peripheral edema. LOWER EXTREMITIES: No peripheral edema. NEUROLOGICAL: non verbal at baseline PSYCHIATRIC: calm Laboratory Results - last 24 hr 10/07/18 10/07/18 10/07/18 21:00 21:00 21:00 WBC 14.5 H RBC 4.23 Hgb 13.1 Hct 37.0 MCV 87.5 MCH 31.0 MCHC 35.4 RDW 15.2 Plt Count 578 H MPV 7.7 Absolute Neuts (auto) 12.6 H Neutrophils % 86.9 H D Lymphocytes % 7.4 L D Monocytes % 5.1 Eosinophils % 0.2 D Basophils % 0.4 Nucleated RBC % 0 Sodium 137 Potassium 4.2 Chloride 103 Carbon Dioxide 24 Anion Gap 9 BUN 17 Creatinine 0.6 Creat Clearance w eGFR > 60 Random Glucose 98 Lactic Acid 2.0 Calcium 9.3 Total Bilirubin 0.3 AST 19 ALT 30 Alkaline Phosphatase 105 Total Protein 9.1 H Albumin 3.7 Active Medications Generic Name Dose Route Start Last Admin Trade Name Freq PRN Reason Stop Dose Admin Albuterol Sulfate 1 amp 10/03/18 14:18 10/08/18 07:45 Ventolin 0.083% Nebulizer Soln - NEB 1 amp Q4H PRN Administration SHORT OF BREATH/WHEEZING Aspirin 81 mg 09/27/18 22:00 10/07/18 23:52 Asa - GT 81 mg HS ALEKSANDR Administration Bacitracin 1 applic 09/27/18 10:00 10/07/18 10:30 Bacitracin - TP 1 applic DAILY ALEKSANDR Administration Baclofen 10 mg 09/27/18 06:00 10/08/18 05:47 Lioresal - GT 10 mg DAILY@0600,1200 ALEKSANDR Administration Baclofen 20 mg 09/27/18 00:00 10/08/18 01:38 Lioresal - GT 20 mg DAILY@1800,0000 ALEKSANDR Administration Carbamazepine 280 mg 09/27/18 10:00 10/07/18 23:54 Tegretol Oral Suspension - PO 280 mg BID ALEKSANDR Administration Cholecalciferol 2,000 unit 09/27/18 10:00 10/07/18 10:30 Vitamin D3 - GT 2,000 unit DAILY ALEKSANDR Administration Clonazepam 1 mg 09/27/18 06:00 10/08/18 05:47 Klonopin - GT 1 mg TID ALEKSANDR Administration Clonidine 0.2 mg 09/27/18 22:00 10/07/18 23:52 Catapres - PO 0.2 mg HS ALEKSANDR Administration Heparin Sodium (Porcine) 5,000 unit 09/27/18 10:00 10/07/18 23:52 Heparin - SQ 5,000 unit BID ALEKSANDR Administration Levetiracetam 1,500 mg 10/05/18 22:00 10/07/18 23:54 Keppra Oral Solution - GT 1,500 mg BID ALEKSANDR Administration Pantoprazole Sodium 40 mg 09/27/18 10:00 10/07/18 10:30 Protonix Iv IVPUSH 40 mg DAILY ALEKSANDR Administration Scopolamine HBr 1 patch 09/28/18 14:15 10/07/18 13:22 Transderm-Scop - TD 1 patch Q72H ALEKSANDR Administration Date of Admission:09/22/18 Date of Discharge: 10/06/18 HOSPITAL COURSE: Patient is a 28 year old male with a significant past medical history of profound mental retardation, cerebral palsy, dysphagia, peg tube, seizures, hyponatremia and asthma. Patient is a resident at [facility]. He has had multiple admissions to [facility] for aspiration pneumonia. He comes in to the ED for shortness of breath and coughing up green mucus. In the ED he was noted to be with tachycardia and hypotension. He was intubated on admission for worsening dyspnea. He was extubated on 09/25/2018. On admission patient developed a pneumothorax per chest xray and a pig tail connected to chest tube was placed. Chest tube removed on 09/26/2018 and his chest xray has been stable. On 10/07/2018 patient was scheduled for discharge back to [place]. Discharge cancelled when patient became hypotensivve, tachycardic and febrile. problem list ------- profound mental retardation, chronic microcephaly, chronic dysphagia, peg tube dependent - replaced 09/27/2018 seizures, none during hospitalization hyponatremia, resolved asthma, stable aspiration pneumonia, measures to prevent outlined in d/c instructions respiratory distress, resolved acute bronchitis, resolved rhabdo, resolved pneumothorax, treated and resolved ------ ID: Sepsis/likely secondary to aspiration pneumonia Initially completed IV antibiotics. Given a dose of vanco/zosyn overnight for fevers. blood cultures pending. WBC 14.5 ID to follow for possible resumption of antibiotics Leukocytosis, 14.5 monitor fever curve Pulm: Right pneumothrax.- resolved. Pig tail to chest tube placed in the ED on admission. less than 90cc noted. sero sang. pig tail removed 09/26/2018 On 2 liters of nasal cannula. Chest xray unchanged from previous Maintain sats above 90% Pulmonary following Neuro: Seizure history. no seizures during hospitalization On keppra, tegretol, baclophen. Renal rhabdo. presents with elevated cpk, resolved. Card: Rule out ACS troponins negative Tachycardia, in the setting of sepsis. tachycardic again overnight. ID to follow for possible resumption of antibiotics Functional Quadraplegia. He is a total care, and requires q2 position changes to prevent skin breakdown. fen IVF, gentle hydration monitor cmp restart feeds prophy protonix Visit type - Emergency Visit Emergency Visit: Yes ED Registration Date: 09/22/18 Care time: The patient presented to the Emergency Department on the above date and was hospitalized for further evaluation of their emergent condition. - New Patient This patient is new to me today: No - Critical Care Critical Care patient: No - Discharge Referral Referred to [facility] Med P.C.: No
[2018-10-08] MEDS ORDERED: PT OWN MED DRAWER 7, Y5N ONE ×2 (11:31→21:11)
[2018-10-08] MEDS: PANTOPRAZOLE SODIUM 40 MG VIAL IVPUSH SCH (11:33)
[2018-10-08] MEDS: HEPARIN NA (PORCINE) 5,000 UNITS/ML 1ML VIAL SQ SCH ×2 (11:35→22:55)
[2018-10-08] MEDS: levETIRAcetam 500 MG/5 ML ORAL SOLUTION (UNIT-DOSE CUPS) GT SCH ×2 (11:35→22:54)
[2018-10-08] MEDS: BACITRACIN 15 GM TUBE TOPICAL OINTMENT TP SCH (11:36)
[2018-10-08] MEDS: carBAMazepine 200 MG/10 ML UNIT-DOSE CUP PO SCH ×2 (11:36→22:56)
[2018-10-08] MEDS: CHOLECALCIFEROL (VITAMIN D3) 1,000 UNIT TABLET (FP) GT SCH (11:36)
[2018-10-08] MEDS ORDERED: PIPERACILLIN/TAZOB 3.375 GM 3.375 GM in DEXTROSE 5%-WATER - 50 ML IVPB ONE (11:53)
[2018-10-08] MEDS: ALBUTEROL SO4 2.5/IPRATROPIUM 0.5 INH SOL 3 ML VIAL.NEB. NEB SCH ×3 (12:00→20:50)
--- NOTE | 2018-10-08 15:19 | PN ---
Progress Note, Physician History of Present Illness: WAS FOR DISCHARGE; BECAME DIAPHORETIC, FEBRILE, TACHYCARDIC, HYPOTENSIVE, AUDIBLY CONGESTED WBC INC 14K BC, CXR OBTAINED - Current Medication List Current Medications: Active Medications Albuterol Sulfate (Ventolin 0.083% Nebulizer Soln -) 1 amp NEB Q4H PRN PRN Reason: SHORT OF BREATH/WHEEZING Last Admin: 10/08/18 07:45 Dose: 1 amp Albuterol/Ipratropium (Duoneb -) 1 amp NEB RQ4H [facility] Aspirin (Asa -) 81 mg GT HS [facility] Last Admin: 10/07/18 23:52 Dose: 81 mg Bacitracin (Bacitracin -) 1 applic TP DAILY [facility] Last Admin: 10/08/18 11:36 Dose: 1 applic Baclofen (Lioresal -) 10 mg GT DAILY@0600,1200 [facility] Last Admin: 10/08/18 14:15 Dose: 10 mg Baclofen (Lioresal -) 20 mg GT DAILY@1800,0000 [facility] Last Admin: 10/08/18 01:38 Dose: 20 mg Carbamazepine (Tegretol Oral Suspension -) 280 mg PO BID [facility] Last Admin: 10/08/18 11:36 Dose: 280 mg Cholecalciferol (Vitamin D3 -) 2,000 unit GT DAILY [facility] Last Admin: 10/08/18 11:36 Dose: 2,000 unit Clonazepam (Klonopin -) 1 mg GT TID [facility] Last Admin: 10/08/18 14:15 Dose: 1 mg Clonidine (Catapres -) 0.2 mg PO HS [facility] Last Admin: 10/07/18 23:52 Dose: 0.2 mg Heparin Sodium (Porcine) (Heparin -) 5,000 unit SQ BID [facility] Last Admin: 10/08/18 11:35 Dose: 5,000 unit Levetiracetam (Keppra Oral Solution -) 1,500 mg GT BID [facility] Last Admin: 10/08/18 11:35 Dose: 1,500 mg Pantoprazole Sodium (Protonix Iv) 40 mg IVPUSH DAILY [facility] Last Admin: 10/08/18 11:33 Dose: 40 mg Scopolamine HBr (Transderm-Scop -) 1 patch TD Q72H [facility] Last Admin: 10/07/18 13:22 Dose: 1 patch - Objective Vital Signs: Vital Signs Temperature 98.4 F 10/08/18 10:00 Pulse Rate 93 H 10/08/18 10:00 Respiratory Rate 20 10/08/18 10:00 Blood Pressure 158/92 10/08/18 10:00 O2 Sat by Pulse Oximetry (%) 99 10/07/18 21:00 Constitutional: Yes: No Distress Cardiovascular: Yes: Regular Rate and Rhythm, S1, S2 Respiratory: Yes: Rhonchi Gastrointestinal: Yes: Normal Bowel Sounds, Soft. No: Tenderness Labs: CBC, BMP 10/07/18 21:00 10/07/18 21:00 INR, PTT INR 1.40 (0.83-1.09) H 09/23/18 07:50 Assessment/Plan R/O ASPIRATION/ SEPSIS HX RESP FAILURE/ PMX CP/MR AWAIT C/S CONTINUE ZOSYN
--- NOTE | 2018-10-08 15:42 | PN ---
Progress Note, Physician History of Present Illness: pulmonary comfortable ,,-resp distress,less congested,tmax 101 - Current Medication List Current Medications: Active Medications Albuterol Sulfate (Ventolin 0.083% Nebulizer Soln -) 1 amp NEB Q4H PRN PRN Reason: SHORT OF BREATH/WHEEZING Last Admin: 10/08/18 07:45 Dose: 1 amp Albuterol/Ipratropium (Duoneb -) 1 amp NEB RQ4H [facility] Last Admin: 10/08/18 15:34 Dose: 1 amp Aspirin (Asa -) 81 mg GT HS [facility] Last Admin: 10/07/18 23:52 Dose: 81 mg Bacitracin (Bacitracin -) 1 applic TP DAILY [facility] Last Admin: 10/08/18 11:36 Dose: 1 applic Baclofen (Lioresal -) 10 mg GT DAILY@0600,1200 [facility] Last Admin: 10/08/18 14:15 Dose: 10 mg Baclofen (Lioresal -) 20 mg GT DAILY@1800,0000 [facility] Last Admin: 10/08/18 01:38 Dose: 20 mg Carbamazepine (Tegretol Oral Suspension -) 280 mg PO BID [facility] Last Admin: 10/08/18 11:36 Dose: 280 mg Cholecalciferol (Vitamin D3 -) 2,000 unit GT DAILY [facility] Last Admin: 10/08/18 11:36 Dose: 2,000 unit Clonazepam (Klonopin -) 1 mg GT TID [facility] Last Admin: 10/08/18 14:15 Dose: 1 mg Clonidine (Catapres -) 0.2 mg PO HS [facility] Last Admin: 10/07/18 23:52 Dose: 0.2 mg Heparin Sodium (Porcine) (Heparin -) 5,000 unit SQ BID [facility] Last Admin: 10/08/18 11:35 Dose: 5,000 unit Piperacillin Sod/Tazobactam (Sod 2.25 gm/ Dextrose) 50 mls @ 100 mls/hr IVPB Q8H-IV [facility]; Protocol Levetiracetam (Keppra Oral Solution -) 1,500 mg GT BID [facility] Last Admin: 10/08/18 11:35 Dose: 1,500 mg Pantoprazole Sodium (Protonix Iv) 40 mg IVPUSH DAILY [facility] Last Admin: 10/08/18 11:33 Dose: 40 mg Scopolamine HBr (Transderm-Scop -) 1 patch TD Q72H [facility] Last Admin: 10/07/18 13:22 Dose: 1 patch - Objective Vital Signs: Vital Signs Temperature 98.4 F 10/08/18 15:29 Pulse Rate 84 10/08/18 15:29 Respiratory Rate 20 10/08/18 15:29 Blood Pressure 123/78 10/08/18 15:29 O2 Sat by Pulse Oximetry (%) 99 10/07/18 21:00 Constitutional: Yes: Calm, Thin Eyes: Yes: WNL HENT: Yes: WNL Neck: Yes: WNL Cardiovascular: Yes: Regular Rate and Rhythm, S1, S2 Respiratory: Yes: Rhonchi (scattered rhonchi) Gastrointestinal: Yes: Normal Bowel Sounds, Soft Extremities: Yes: Other (contracted) Labs: CBC, BMP 10/07/18 21:00 10/07/18 21:00 INR, PTT INR 1.40 (0.83-1.09) H 09/23/18 07:50 - ....Imaging X-ray: Report Reviewed, Image Reviewed (no change,- infiltrates) Problem List - Problems (1) Fever Code(s): R50.9 - FEVER, UNSPECIFIED (2) Sepsis Code(s): A41.9 - SEPSIS, UNSPECIFIED ORGANISM Qualifiers: Sepsis type: sepsis due to unspecified organism Qualified Code(s): A41.9 - Sepsis, unspecified organism (3) Tachycardia Code(s): R00.0 - TACHYCARDIA, UNSPECIFIED (4) Gastrostomy tube dysfunction Code(s): K94.23 - GASTROSTOMY MALFUNCTION (5) Cerebral palsy Code(s): G80.9 - CEREBRAL PALSY, UNSPECIFIED Qualifiers: Cerebral palsy type: unspecified type Qualified Code(s): G80.9 - Cerebral palsy, unspecified (6) Seizure Code(s): R56.9 - UNSPECIFIED CONVULSIONS (7) Asthma Code(s): J45.909 - UNSPECIFIED ASTHMA, UNCOMPLICATED Assessment/Plan A/P s/p Acute Respiratory Failure r/o Pneumonia Severe Sepsis resolving +Troponins likely Demand Ischemia Mental Retardation/Cerebral Palsy Seizure Disorder Asthma Functional Quadriplegia - antibiotics as per id - monitor urine output, creatinine - aspiration precautions - DVT/GI prophylaxis DR WALSH
[2018-10-08] MEDS ORDERED: PIPERACILLIN/TAZOBACTAM 2.25 GM VIAL IVPB ONE (17:46)
[2018-10-08] MEDS: PIPERACILLIN/TAZOB 2.25 GM 2.25 GM in DEXTROSE 5%-WATER - 50 ML IVPB SCH (17:51)
[2018-10-08] MEDS: cloNIDine HCL 0.1 MG TABLET PO SCH (22:55)
[2018-10-08] MEDS: ASPIRIN 81 MG CHEWABLE TABLETS GT SCH (22:55)
[2018-10-09] MEDS: BACLOFEN 10 MG TABLET (FP) GT SCH ×4 (00:18→17:26)
[2018-10-09] MEDS ORDERED: PIPERACILLIN/TAZOBACTAM 2.25 GM VIAL IVPB ONE ×3 (01:56→17:08)
[2018-10-09] MEDS ORDERED: DEXTROSE 5%-WATER - 50 ML IVPB ONE ×3 (01:56→17:08)
[2018-10-09] MEDS: ALBUTEROL SO4 2.5/IPRATROPIUM 0.5 INH SOL 3 ML VIAL.NEB. NEB SCH ×7 (03:03→23:32)
[2018-10-09] MEDS: PIPERACILLIN/TAZOB 2.25 GM 2.25 GM in DEXTROSE 5%-WATER - 50 ML IVPB SCH ×3 (04:18→17:26)
[2018-10-09] MEDS: clonazePAM 0.5 MG TABLET GT SCH ×3 (05:34→22:18)
[2018-10-09] MEDS: PANTOPRAZOLE SODIUM 40 MG VIAL IVPUSH SCH (10:21)
[2018-10-09] MEDS: HEPARIN NA (PORCINE) 5,000 UNITS/ML 1ML VIAL SQ SCH ×2 (10:21→22:17)
[2018-10-09] MEDS: CHOLECALCIFEROL (VITAMIN D3) 1,000 UNIT TABLET (FP) GT SCH (10:21)
[2018-10-09] MEDS ORDERED: PT OWN MED DRAWER 7, Y5N ONE (10:23)
[2018-10-09] MEDS: levETIRAcetam 500 MG/5 ML ORAL SOLUTION (UNIT-DOSE CUPS) GT SCH ×2 (10:24→22:17)
[2018-10-09] MEDS: BACITRACIN 15 GM TUBE TOPICAL OINTMENT TP SCH (10:24)
[2018-10-09] MEDS: carBAMazepine 200 MG/10 ML UNIT-DOSE CUP PO SCH ×2 (10:24→22:18)
--- NOTE | 2018-10-09 12:37 | PN ---
Physical Exam: SUBJECTIVE: Patient seen and examined. awake, alert. no fevers. OBJECTIVE: started on zosyn. no fevers overnight. awaiting today's labs. Vital Signs Period Temp Pulse Resp BP Sys/Don Pulse Ox Last 24 Hr 98.4 F-98.8 F 65-99 18-20 103-128/50-79 100 GENERAL awake alert. tolerating 2 liters nasal cannula. HEAD: Normal with no signs of trauma/microcephaly EYES: Pupils equal, round and reactive to light EARS, NOSE, THROAT: Ears normal, nares patent, oropharynx clear without exudates. Moist mucous membranes. NECK: Normal range of motion, supple without lymphadenopathy, JVD, or masses. LUNGS: mild congestion anteriorly HEART: nsr, tachy overnight ABDOMEN: Soft, nontender, not distended, + g/j tube intact MUSCULOSKELETAL: contracted on all extremities - baseline UPPER EXTREMITIES: No peripheral edema. LOWER EXTREMITIES: No peripheral edema. NEUROLOGICAL: non verbal at baseline PSYCHIATRIC: calm Active Medications Generic Name Dose Route Start Last Admin Trade Name Freq PRN Reason Stop Dose Admin Albuterol Sulfate 1 amp 10/03/18 14:18 10/08/18 07:45 Ventolin 0.083% Nebulizer Soln - NEB 1 amp Q4H PRN Administration SHORT OF BREATH/WHEEZING Albuterol/Ipratropium 1 amp 10/08/18 12:00 10/09/18 11:29 Duoneb - NEB 1 amp RQ4H [facility] Administration Aspirin 81 mg 09/27/18 22:00 10/08/18 22:55 Asa - GT 81 mg HS [facility] Administration Bacitracin 1 applic 09/27/18 10:00 10/09/18 10:24 Bacitracin - TP 1 applic DAILY [facility] Administration Baclofen 10 mg 09/27/18 06:00 10/09/18 11:23 Lioresal - GT 10 mg DAILY@0600,1200 [facility] Administration Baclofen 20 mg 09/27/18 00:00 10/09/18 00:18 Lioresal - GT 20 mg DAILY@1800,0000 [facility] Administration Carbamazepine 280 mg 09/27/18 10:00 10/09/18 10:24 Tegretol Oral Suspension - PO 280 mg BID [facility] Administration Cholecalciferol 2,000 unit 09/27/18 10:00 10/09/18 10:21 Vitamin D3 - GT 2,000 unit DAILY [facility] Administration Clonazepam 1 mg 09/27/18 06:00 10/09/18 05:34 Klonopin - GT 1 mg TID [facility] Administration Clonidine 0.2 mg 09/27/18 22:00 10/08/18 22:55 Catapres - PO 0.2 mg HS [facility] Administration Heparin Sodium (Porcine) 5,000 unit 09/27/18 10:00 10/09/18 10:21 Heparin - SQ 5,000 unit BID [facility] Administration Piperacillin Sod/Tazobactam 50 mls @ 100 mls/hr 10/08/18 18:00 10/09/18 10:21 Sod 2.25 gm/ Dextrose IVPB 100 mls/hr Q8H-IV [facility] Administration Protocol Levetiracetam 1,500 mg 10/05/18 22:00 10/09/18 10:24 Keppra Oral Solution - GT 1,500 mg BID [facility] Administration Pantoprazole Sodium 40 mg 09/27/18 10:00 10/09/18 10:21 Protonix Iv IVPUSH 40 mg DAILY [facility] Administration Scopolamine HBr 1 patch 09/28/18 14:15 10/07/18 13:22 Transderm-Scop - TD 1 patch Q72H [facility] Administration ASSESSMENT/PLAN: Patient is a 28 year old male with a significant past medical history of profound mental retardation, cerebral palsy, dysphagia, peg tube, seizures, hyponatremia and asthma. Patient is a resident at [facility]. He has had multiple admissions to [facility] for aspiration pneumonia. He comes in to the ED for shortness of breath and coughing up green mucus. In the ED he was noted to be with tachycardia and hypotension. He was intubated on admission for worsening dyspnea. He was extubated on 09/25/2018. On admission patient developed a pneumothorax per chest xray and a pig tail connected to chest tube was placed. Chest tube removed on 09/26/2018 and his chest xray has been stable. On 10/07/2018 patient was scheduled for discharge back to [facility]. Discharge cancelled when patient became hypotensivve, tachycardic and febrile. He has been cultured and now back on Zon. ID: Sepsis/likely secondary to aspiration pneumonia Initially completed IV antibiotics. But became febrile, diaphoretic, tachycardic on day of discharge (10/07/18). Was jennings cultured and started back on Zosyn. Afebrile overnight. WBC 14.5, awaiting today's labs. ID following Pulm: Right pneumothrax.- resolved. Pig tail to chest tube placed in the ED on admission. less than 90cc noted. sero sang. pig tail removed 09/26/2018 On 2 liters of nasal cannula. Chest xray unchanged from previous Neuro: Seizure history. no seizures during hospitalization On keppra, tegretol, baclophen. Renal rhabdo. resolved. Card: Rule out ACS troponins negative Functional Quadraplegia. He is a total care, and requires q2 position changes to prevent skin breakdown. fen IVF, gentle hydration monitor cmp restart feeds prophy protonix Visit type - Emergency Visit Emergency Visit: Yes ED Registration Date: 09/22/18 Care time: The patient presented to the Emergency Department on the above date and was hospitalized for further evaluation of their emergent condition. - New Patient This patient is new to me today: No - Critical Care Critical Care patient: No - Discharge Referral Referred to [facility] Med P.C.: No
[2018-10-09 13:24] LABS: EOS % 5.5 % (0-4.5); HEMOGLOBIN 11.6 GM/dL (11.7-16.9); LYMPH % 32.9 % (8-40); MCH 30.8 pg (25.7-33.7); MCHC 35.1 g/dl (32.0-35.9); MEAN CELL VOLUME 87.8 fl (80-96); MEAN PLT VOLUME 7.3 fl (7.5-11.1); MONO % 10.2 % (3.8-10.2); NEUT % 50.4 % (42.8-82.8); PLATELET COUNT 461 K/MM3 (134-434); RBC 3.75 M/mm3 (4.00-5.60); RDW 15.4 % (11.9-15.9); WHITE BLOOD COUNT 5.5 K/mm3 (4.0-10.0)
[2018-10-09 13:50] LABS: ALBUMIN 3.2 g/dl (3.4-5.0); ALK PHOS 93 U/L (45-117); ANION GAP 7 MMOL/L (8-16); BILIRUBIN,TOTAL 0.3 mg/dL (0.2-1); BLOOD UREA NITROGEN 14 mg/dL (7-18); CALCIUM 8.5 mg/dL (8.5-10.1); CHLORIDE 102 mmol/L (98-107); CO2 27 mmol/L (21-32); CREATININE 0.5 mg/dL (0.55-1.3); GLUCOSE,RANDOM 98 mg/dL (74-106); POTASSIUM 3.9 mmol/L (3.5-5.1); SGOT/AST 12 U/L (15-37); SGPT/ALT 29 U/L (13-61); SODIUM 136 mmol/L (136-145); TOT PROT 8.2 g/dl (6.4-8.2)
--- NOTE | 2018-10-09 15:39 | PN ---
Progress Note, Physician History of Present Illness: PULMONARY AWAKE,-RESP DISTRESS - Current Medication List Current Medications: Active Medications Albuterol Sulfate (Ventolin 0.083% Nebulizer Soln -) 1 amp NEB Q4H PRN PRN Reason: SHORT OF BREATH/WHEEZING Last Admin: 10/08/18 07:45 Dose: 1 amp Albuterol/Ipratropium (Duoneb -) 1 amp NEB RQ4H [facility] Last Admin: 10/09/18 15:29 Dose: 1 amp Aspirin (Asa -) 81 mg GT HS [facility] Last Admin: 10/08/18 22:55 Dose: 81 mg Bacitracin (Bacitracin -) 1 applic TP DAILY [facility] Last Admin: 10/09/18 10:24 Dose: 1 applic Baclofen (Lioresal -) 10 mg GT DAILY@0600,1200 [facility] Last Admin: 10/09/18 11:23 Dose: 10 mg Baclofen (Lioresal -) 20 mg GT DAILY@1800,0000 [facility] Last Admin: 10/09/18 00:18 Dose: 20 mg Carbamazepine (Tegretol Oral Suspension -) 280 mg PO BID [facility] Last Admin: 10/09/18 10:24 Dose: 280 mg Cholecalciferol (Vitamin D3 -) 2,000 unit GT DAILY [facility] Last Admin: 10/09/18 10:21 Dose: 2,000 unit Clonazepam (Klonopin -) 1 mg GT TID [facility] Last Admin: 10/09/18 13:41 Dose: 1 mg Clonidine (Catapres -) 0.2 mg PO HS [facility] Last Admin: 10/08/18 22:55 Dose: 0.2 mg Heparin Sodium (Porcine) (Heparin -) 5,000 unit SQ BID [facility] Last Admin: 10/09/18 10:21 Dose: 5,000 unit Piperacillin Sod/Tazobactam (Sod 2.25 gm/ Dextrose) 50 mls @ 100 mls/hr IVPB Q8H-IV [facility]; Protocol Last Admin: 10/09/18 10:21 Dose: 100 mls/hr Levetiracetam (Keppra Oral Solution -) 1,500 mg GT BID [facility] Last Admin: 10/09/18 10:24 Dose: 1,500 mg Pantoprazole Sodium (Protonix Iv) 40 mg IVPUSH DAILY [facility] Last Admin: 10/09/18 10:21 Dose: 40 mg Scopolamine HBr (Transderm-Scop -) 1 patch TD Q72H [facility] Last Admin: 10/07/18 13:22 Dose: 1 patch - Objective Vital Signs: Vital Signs Temperature 98.8 F 10/09/18 10:00 Pulse Rate 72 10/09/18 10:00 Respiratory Rate 18 10/09/18 10:00 Blood Pressure 114/78 10/09/18 10:00 O2 Sat by Pulse Oximetry (%) 98 10/09/18 09:00 Constitutional: Yes: Calm, Thin Eyes: Yes: WNL HENT: Yes: WNL Neck: Yes: WNL Cardiovascular: Yes: Regular Rate and Rhythm, S1, S2 Respiratory: Yes: Rhonchi (FEW RHONCHI) Gastrointestinal: Yes: Normal Bowel Sounds, Soft Extremities: Yes: Other (CONTRACTED) Edema: No Labs: CBC, BMP 10/09/18 12:58 10/09/18 12:58 INR, PTT INR 1.40 (0.83-1.09) H 09/23/18 07:50 Problem List - Problems (1) Fever Code(s): R50.9 - FEVER, UNSPECIFIED (2) Sepsis Code(s): A41.9 - SEPSIS, UNSPECIFIED ORGANISM Qualifiers: Sepsis type: sepsis due to unspecified organism Qualified Code(s): A41.9 - Sepsis, unspecified organism (3) Tachycardia Code(s): R00.0 - TACHYCARDIA, UNSPECIFIED (4) Gastrostomy tube dysfunction Code(s): K94.23 - GASTROSTOMY MALFUNCTION (5) Cerebral palsy Code(s): G80.9 - CEREBRAL PALSY, UNSPECIFIED Qualifiers: Cerebral palsy type: unspecified type Qualified Code(s): G80.9 - Cerebral palsy, unspecified (6) Seizure Code(s): R56.9 - UNSPECIFIED CONVULSIONS (7) Asthma Code(s): J45.909 - UNSPECIFIED ASTHMA, UNCOMPLICATED Assessment/Plan A/P s/p Acute Respiratory Failure r/o Pneumonia Severe Sepsis resolving +Troponins likely Demand Ischemia Mental Retardation/Cerebral Palsy Seizure Disorder Asthma Functional Quadriplegia - antibiotics as per id - monitor urine output, creatinine - aspiration precautions - DVT/GI prophylaxis DR WALSH
[2018-10-09] MEDS: cloNIDine HCL 0.1 MG TABLET PO SCH (22:17)
[2018-10-09] MEDS: ASPIRIN 81 MG CHEWABLE TABLETS GT SCH (22:17)
[2018-10-10] MEDS ORDERED: DEXTROSE 5%-WATER - 50 ML IVPB ONE ×2 (02:13→09:00)
[2018-10-10] MEDS ORDERED: PIPERACILLIN/TAZOBACTAM 2.25 GM VIAL IVPB ONE ×2 (02:13→09:00)
[2018-10-10] MEDS: PIPERACILLIN/TAZOB 2.25 GM 2.25 GM in DEXTROSE 5%-WATER - 50 ML IVPB SCH ×2 (02:22→10:09)
[2018-10-10] MEDS: ALBUTEROL SO4 2.5/IPRATROPIUM 0.5 INH SOL 3 ML VIAL.NEB. NEB SCH ×4 (04:09→15:40)
[2018-10-10] MEDS: BACLOFEN 10 MG TABLET (FP) GT SCH ×4 (05:46→17:09)
[2018-10-10] MEDS: clonazePAM 0.5 MG TABLET GT SCH ×2 (05:47→14:21)
[2018-10-10 08:27] LABS: ALBUMIN 3.1 g/dl (3.4-5.0); ALK PHOS 85 U/L (45-117); ANION GAP 8 MMOL/L (8-16); BILIRUBIN,TOTAL 0.3 mg/dL (0.2-1); BLOOD UREA NITROGEN 17 mg/dL (7-18); CALCIUM 8.4 mg/dL (8.5-10.1); CHLORIDE 102 mmol/L (98-107); CO2 24 mmol/L (21-32); CREATININE 0.4 mg/dL (0.55-1.3); GLUCOSE,RANDOM 91 mg/dL (74-106); POTASSIUM 4.7 mmol/L (3.5-5.1); SGOT/AST 24 U/L (15-37); SGPT/ALT 26 U/L (13-61); SODIUM 134 mmol/L (136-145); TOT PROT 8.1 g/dl (6.4-8.2)
[2018-10-10 08:55] LABS: BASO % 0.9 % (0-2.0); EOS % 5.5 % (0-4.5); HEMATOCRIT 34.3 % (35.4-49); HEMOGLOBIN 11.8 GM/dL (11.7-16.9); LYMPH % 40.9 % (8-40); MCH 30.6 pg (25.7-33.7); MCHC 34.3 g/dl (32.0-35.9); MEAN CELL VOLUME 89.2 fl (80-96); MEAN PLT VOLUME 7.7 fl (7.5-11.1); MONO % 9.8 % (3.8-10.2); NEUT % 42.9 % (42.8-82.8); PLATELET COUNT 459 K/MM3 (134-434); RBC 3.85 M/mm3 (4.00-5.60); RDW 15.7 % (11.9-15.9); WHITE BLOOD COUNT 6.6 K/mm3 (4.0-10.0)
[2018-10-10] MEDS: PANTOPRAZOLE SODIUM 40 MG VIAL IVPUSH SCH (10:09)
[2018-10-10] MEDS: HEPARIN NA (PORCINE) 5,000 UNITS/ML 1ML VIAL SQ SCH (10:11)
[2018-10-10] MEDS: CHOLECALCIFEROL (VITAMIN D3) 1,000 UNIT TABLET (FP) GT SCH (10:11)
[2018-10-10] MEDS: carBAMazepine 200 MG/10 ML UNIT-DOSE CUP PO SCH (10:12)
[2018-10-10] MEDS: levETIRAcetam 500 MG/5 ML ORAL SOLUTION (UNIT-DOSE CUPS) GT SCH (10:12)
[2018-10-10] MEDS: BACITRACIN 15 GM TUBE TOPICAL OINTMENT TP SCH (10:13)
--- NOTE | 2018-10-10 14:11 | PN ---
Progress Note, Physician History of Present Illness: PULMONARY ALERT,NO DISTRESS,COMFORTABLE - Current Medication List Current Medications: Active Medications Albuterol Sulfate (Ventolin 0.083% Nebulizer Soln -) 1 amp NEB Q4H PRN PRN Reason: SHORT OF BREATH/WHEEZING Last Admin: 10/08/18 07:45 Dose: 1 amp Albuterol/Ipratropium (Duoneb -) 1 amp NEB RQ4H [facility] Last Admin: 10/10/18 11:33 Dose: 1 amp Aspirin (Asa -) 81 mg GT HS [facility] Last Admin: 10/09/18 22:17 Dose: 81 mg Bacitracin (Bacitracin -) 1 applic TP DAILY [facility] Last Admin: 10/10/18 10:13 Dose: 1 applic Baclofen (Lioresal -) 10 mg GT DAILY@0600,1200 [facility] Last Admin: 10/10/18 11:54 Dose: 10 mg Baclofen (Lioresal -) 20 mg GT DAILY@1800,0000 [facility] Last Admin: 10/10/18 00:00 Dose: 20 mg Carbamazepine (Tegretol Oral Suspension -) 280 mg PO BID [facility] Last Admin: 10/10/18 10:12 Dose: 280 mg Cholecalciferol (Vitamin D3 -) 2,000 unit GT DAILY [facility] Last Admin: 10/10/18 10:11 Dose: 2,000 unit Clonazepam (Klonopin -) 1 mg GT TID [facility] Last Admin: 10/10/18 05:47 Dose: 1 mg Clonidine (Catapres -) 0.2 mg PO HS [facility] Last Admin: 10/09/18 22:17 Dose: 0.2 mg Heparin Sodium (Porcine) (Heparin -) 5,000 unit SQ BID [facility] Last Admin: 10/10/18 10:11 Dose: 5,000 unit Piperacillin Sod/Tazobactam (Sod 2.25 gm/ Dextrose) 50 mls @ 100 mls/hr IVPB Q8H-IV [facility]; Protocol Last Admin: 10/10/18 10:09 Dose: 100 mls/hr Levetiracetam (Keppra Oral Solution -) 1,500 mg GT BID [facility] Last Admin: 10/10/18 10:12 Dose: 1,500 mg Pantoprazole Sodium (Protonix Iv) 40 mg IVPUSH DAILY [facility] Last Admin: 10/10/18 10:09 Dose: 40 mg Scopolamine HBr (Transderm-Scop -) 1 patch TD Q72H [facility] Last Admin: 10/07/18 13:22 Dose: 1 patch - Objective Vital Signs: Vital Signs Temperature 98.9 F 10/10/18 13:16 Pulse Rate 81 10/10/18 13:16 Respiratory Rate 18 10/10/18 13:16 Blood Pressure 119/69 10/10/18 13:16 O2 Sat by Pulse Oximetry (%) 97 10/10/18 09:00 Constitutional: Yes: Calm, Thin Eyes: Yes: WNL HENT: Yes: WNL Neck: Yes: WNL Cardiovascular: Yes: Regular Rate and Rhythm, S1, S2 Respiratory: Yes: Rhonchi (FEW RHONCHI) Gastrointestinal: Yes: Normal Bowel Sounds, Soft Extremities: Yes: WNL, Other (CONTRACTED) Edema: LUE: Trace Labs: CBC, BMP 10/10/18 08:05 10/10/18 06:45 INR, PTT INR 1.40 (0.83-1.09) H 09/23/18 07:50 Problem List - Problems (1) Fever Code(s): R50.9 - FEVER, UNSPECIFIED (2) Sepsis Code(s): A41.9 - SEPSIS, UNSPECIFIED ORGANISM Qualifiers: Sepsis type: sepsis due to unspecified organism Qualified Code(s): A41.9 - Sepsis, unspecified organism (3) Tachycardia Code(s): R00.0 - TACHYCARDIA, UNSPECIFIED (4) Gastrostomy tube dysfunction Code(s): K94.23 - GASTROSTOMY MALFUNCTION (5) Cerebral palsy Code(s): G80.9 - CEREBRAL PALSY, UNSPECIFIED Qualifiers: Cerebral palsy type: unspecified type Qualified Code(s): G80.9 - Cerebral palsy, unspecified (6) Seizure Code(s): R56.9 - UNSPECIFIED CONVULSIONS (7) Asthma Code(s): J45.909 - UNSPECIFIED ASTHMA, UNCOMPLICATED Assessment/Plan A/P s/p Acute Respiratory Failure improved r/o Pneumonia Severe Sepsis resolved +Troponins likely Demand Ischemia Mental Retardation/Cerebral Palsy Seizure Disorder Asthma Functional Quadriplegia - antibiotics as per id - monitor urine output, creatinine - aspiration precautions - DVT/GI prophylaxis DR WALSH
[2018-10-10] MEDS: SCOPOLAMINE HYDROBROMIDE 1 PATCH PATCH.TD72 TD SCH (14:22)
--- NOTE | 2018-10-10 14:45 | PN ---
Progress Note, Physician History of Present Illness: NON VERBAL BREATHING NON LABORED AFEBRILE WBC WNL BC NO GROWTH CXR UNCHANGED - Current Medication List Current Medications: Active Medications Albuterol Sulfate (Ventolin 0.083% Nebulizer Soln -) 1 amp NEB Q4H PRN PRN Reason: SHORT OF BREATH/WHEEZING Last Admin: 10/08/18 07:45 Dose: 1 amp Albuterol/Ipratropium (Duoneb -) 1 amp NEB RQ4H [facility] Last Admin: 10/10/18 11:33 Dose: 1 amp Aspirin (Asa -) 81 mg GT HS [facility] Last Admin: 10/09/18 22:17 Dose: 81 mg Bacitracin (Bacitracin -) 1 applic TP DAILY [facility] Last Admin: 10/10/18 10:13 Dose: 1 applic Baclofen (Lioresal -) 10 mg GT DAILY@0600,1200 [facility] Last Admin: 10/10/18 11:54 Dose: 10 mg Baclofen (Lioresal -) 20 mg GT DAILY@1800,0000 [facility] Last Admin: 10/10/18 00:00 Dose: 20 mg Carbamazepine (Tegretol Oral Suspension -) 280 mg PO BID [facility] Last Admin: 10/10/18 10:12 Dose: 280 mg Cholecalciferol (Vitamin D3 -) 2,000 unit GT DAILY [facility] Last Admin: 10/10/18 10:11 Dose: 2,000 unit Clonazepam (Klonopin -) 1 mg GT TID [facility] Last Admin: 10/10/18 14:21 Dose: 1 mg Clonidine (Catapres -) 0.2 mg PO HS [facility] Last Admin: 10/09/18 22:17 Dose: 0.2 mg Heparin Sodium (Porcine) (Heparin -) 5,000 unit SQ BID [facility] Last Admin: 10/10/18 10:11 Dose: 5,000 unit Piperacillin Sod/Tazobactam (Sod 2.25 gm/ Dextrose) 50 mls @ 100 mls/hr IVPB Q8H-IV [facility]; Protocol Last Admin: 10/10/18 10:09 Dose: 100 mls/hr Levetiracetam (Keppra Oral Solution -) 1,500 mg GT BID [facility] Last Admin: 10/10/18 10:12 Dose: 1,500 mg Pantoprazole Sodium (Protonix Iv) 40 mg IVPUSH DAILY [facility] Last Admin: 10/10/18 10:09 Dose: 40 mg Scopolamine HBr (Transderm-Scop -) 1 patch TD Q72H [facility] Last Admin: 10/10/18 14:22 Dose: 1 patch - Objective Vital Signs: Vital Signs Temperature 98.9 F 10/10/18 13:16 Pulse Rate 81 10/10/18 13:16 Respiratory Rate 18 10/10/18 13:16 Blood Pressure 119/69 10/10/18 13:16 O2 Sat by Pulse Oximetry (%) 97 10/10/18 09:00 Constitutional: Yes: No Distress Cardiovascular: Yes: Regular Rate and Rhythm, S1, S2 Respiratory: Yes: Diminished Labs: CBC, BMP 10/10/18 08:05 10/10/18 06:45 INR, PTT INR 1.40 (0.83-1.09) H 09/23/18 07:50 Assessment/Plan R/O ASPIRATION HX RESP FAILURE/ PMX CP/MR AFEBRILE WBC WNL C/S NEG CXR NO CHANGE SUBSTITUTE AUGMENTIN VIA GT
--- NOTE | 2018-10-10 16:17 | DS ---
Physical Exam: SUBJECTIVE: Patient seen and examined OBJECTIVE: Vital Signs Period Temp Pulse Resp BP Sys/Don Pulse Ox Last 24 Hr 98.1 F-99.0 F 66-87 18-20 101-140/57-80 97-98 PHYSICAL EXAM GENERAL awake alert. tolerating 2 liters nasal cannula. HEAD: Normal with no signs of trauma/microcephaly EYES: Pupils equal, round and reactive to light EARS, NOSE, THROAT: Ears normal, nares patent, oropharynx clear without exudates. Moist mucous membranes. NECK: Normal range of motion, supple without lymphadenopathy, JVD, or masses. LUNGS: mild congestion anteriorly HEART: nsr, tachy overnight ABDOMEN: Soft, nontender, not distended, + g/j tube intact MUSCULOSKELETAL: contracted on all extremities - baseline UPPER EXTREMITIES: No peripheral edema. LOWER EXTREMITIES: No peripheral edema. NEUROLOGICAL: non verbal at baseline PSYCHIATRIC: calm LABS Laboratory Results - last 24 hr 10/10/18 10/10/18 06:45 08:05 WBC 6.6 RBC 3.85 L Hgb 11.8 Hct 34.3 L MCV 89.2 MCH 30.6 MCHC 34.3 RDW 15.7 Plt Count 459 H MPV 7.7 Absolute Neuts (auto) 2.8 Neutrophils % 42.9 Lymphocytes % 40.9 H D Monocytes % 9.8 Eosinophils % 5.5 H Basophils % 0.9 Nucleated RBC % 0 Sodium 134 L Potassium 4.7 Chloride 102 Carbon Dioxide 24 Anion Gap 8 BUN 17 Creatinine 0.4 L Creat Clearance w eGFR > 60 Random Glucose 91 Calcium 8.4 L Total Bilirubin 0.3 AST 24 ALT 26 Alkaline Phosphatase 85 Total Protein 8.1 Albumin 3.1 L HOSPITAL COURSE: Date of Admission:09/22/18 Date of Discharge: 10/10/18 stable for discharge. see below. we will send home with augmentin 250mg bid x 5 days. accepted back to [facility]. Signout given to Dr. Mayorga. Minutes to complete discharge: 60 Discharge Summary Reason For Visit: SEPSIS Current Active Problems Aspiration pneumonia (Acute) Fever (Acute) Functional quadriplegia (Acute) Sepsis (Acute) Tachycardia (Acute) Condition: Improved - Instructions Diet, Activity, Other Instructions: [place] Staff: Mr. Lara was admitted on 09/22/2018 for sepsis due to pneumonia. On admission, he was intubated to protect his airway as he was having difficulty breathing. We have extubated him on 09/25/2018. During placement of a central catheter, he developed a right pneumothorax and had a pig tail catheter placed with a chest tube. The pig tail catheter was removed on 09/26/2018 and his breathing has stabilized. He has been followed by infectious disease and camp recreation specialist during his stay. We recommend that he follows up with the camp recreation specialist within 1-2 weeks after discharge for follow up visit. Here are our recommendations: SEPSIS. RESOLVED Acute Pneumonia, Aspiration Pneumonia Please stop tube feeds before laying patient flat. Maintain HOB at least 45 degrees with feeds and check for any residual. He will require continuous oxygen at 2 liters until he fully recovers. He has completed his full antibiotic course and will be sent back home with Augmentin liquid twice per day for 5 more days. He remains fever free and his WBC is now stable. GT Tube > replaced on 09/27/2018 RIGHT PNEUMOTHORAX. RESOLVED Pig tail to chest tube placed in the ED. pig tail removed 09/26/2018 On 2 liters of nasal cannula. Maintain oxygen levels at 92% or better on the supplemental oxygen NEURO: Seizure history. no seizures during hospitalization On keppra, tegretol, baclophen. FUNCTIONAL QUADRIPLEGIA He is a total care, and requires q2 position changes to prevent skin breakdown. FOLLOW UP: We highly recommend that he is seen by the camp recreation specialist within 1-2 weeks after he is discharged. This will help us determine his ongoing need for oxygen. Please flush his G tube to keep it patent. It has been replaced on . no new medications have been ordered, other than the oxygen I am available for any questions and concerns. thank you for allowing us to care for Mr. Lara. [facility] @ [facility] [phone] Referrals: Inocente Trevizo MD [Staff Physician] - 1 Week Disposition: [facility] - Home Medications Comprehensive Discharge Medication List: Ambulatory Orders levETIRAcetam [Keppra Oral Solution -] 1,500 mg GT BID 01/19/15 Aspirin [ASA -] 81 mg GT HS 03/17/18 Carbamazepine [Tegretol -] 280 mg GT BID 03/17/18 Cholecalciferol (Vitamin D3) [Vitamin D3] 2,000 unit GT DAILY 03/17/18 Omeprazole Magnesium [Prilosec] 20 mg GT DAILY 03/17/18 Tamsulosin HCl [Flomax -] 0.4 mg GT DAILY 03/17/18 cloNIDine HCL [Catapres -] 0.2 mg PO HS 03/17/18 clonazePAM [KlonoPIN -] 1 mg GT TID 03/17/18 Baclofen [Lioresal -] 10 mg PO DAILY@0600,1200 tablet 03/21/18 Baclofen [Lioresal -] 20 mg GT DAILY@1800,0000 tablet 03/21/18 Budesonide [Pulmicort 0.5 mg Nebulizer -] 1 neb NEB BID 07/12/18 Diazepam [Diastat Acudial] 20 mg RC PRN PRN 07/12/18 Ipratropium/Albuterol Sulfate [Iprat-Albut 0.5-3(2.5) mg/3 ml] 3 ml IH QID PRN 07/12/18 Nystatin Ointment [Mycostatin Ointment -] 1 applic TP BID 07/12/18 Triamcinolone 0.1% Cream [Aristocort 0.1% Cream -] 1 applic TP BID 07/12/18 Albuterol 2.5/Ipratropium 0.5 [Duoneb -] 1 amp NEB RQ4H amp 07/18/18 Scopolamine Hydrobromide [Transderm-Scop -] 1 patch TD Q72H #10 patch.td72 07/18 Lactose-Reduced Food/Fiber [Jevity 1.5 Hermes Liquid] 100 ml GT DAILY 08/11/18 Mupirocin Ointment [Bactroban 2% Ointment -] 1 applic TP TID 08/11/18 levETIRAcetam [Keppra Oral Solution -] 1,500 mg GT BID cup 10/06/18 Amox-Tr/K Cl [Augmentin Suspension -] 250 mg PO BID@0800,1730 ml 10/10/18 This patient is new to me today: No Emergency Visit: Yes ED Registration Date: 09/22/18 Care time: The patient presented to the Emergency Department on the above date and was hospitalized for further evaluation of their emergent condition. Critical Care patient: No - Discharge Referral Referred to [facility] Med P.C.: No
[2018-10-10] MEDS ORDERED: AMOX TR/POTASSIUM CLAVULANATE 250 MG/5 ML BOTTLE PO SCH ×2 (17:30)
[2018-10-10 20:01] VITALS: BP 141/71; PULSE 85; TEMP 99.5
== END 2018-10-10 20:27 | disposition home or self-care (01) | DRG 710 ==
LOC: JER 03:44 → JERBED 12:05 → JICU 13:21 → J7W 09-26 23:37
PROVIDERS: ADMIT Internal Medicine; ATTEND Nurse Practitioner Family
PROC: 5A1945Z Respiratory Ventilation, 24-96 Consecutive Hours (ICD-10-PCS; principal; 2018-09-22)
PROC: 0BH17EZ Insertion of Endotracheal Airway into Trachea, Via Natural or Artificial Opening (ICD-10-PCS; 2018-09-22)
PROC: 0W9930Z Drainage of Right Pleural Cavity with Drainage Device, Percutaneous Approach (ICD-10-PCS; 2018-09-22)
PROC: 05HM33Z Insertion of Infusion Device into Right Internal Jugular Vein, Percutaneous Approach (ICD-10-PCS; 2018-09-22)
PROC: 3E0G36Z Introduction of Nutritional Substance into Upper GI, Percutaneous Approach (ICD-10-PCS; 2018-09-27)
PROC: 0DH63UZ Insertion of Feeding Device into Stomach, Percutaneous Approach (ICD-10-PCS; 2018-09-27)
PROC: 0DP63UZ Removal of Feeding Device from Stomach, Percutaneous Approach (ICD-10-PCS; 2018-09-27)
DX: A41.9 Sepsis, unspecified organism (principal); R53.2 Functional quadriplegia; Q02 Microcephaly; J93.9 Pneumothorax, unspecified; M62.82 Rhabdomyolysis; H47.619 Cortical blindness, unspecified side of brain; N17.9 Acute kidney failure, unspecified; F73 Profound intellectual disabilities; E87.2 Acidosis; J69.0 Pneumonitis due to inhalation of food and vomit; R00.0 Tachycardia, unspecified; K94.23 Gastrostomy malfunction; G80.9 Cerebral palsy, unspecified; R56.9 Unspecified convulsions; I95.9 Hypotension, unspecified; R13.10 Dysphagia, unspecified; E87.1 Hypo-osmolality and hyponatremia; J20.9 Acute bronchitis, unspecified; R65.20 Severe sepsis without septic shock; D72.829 Elevated white blood cell count, unspecified; E87.6 Hypokalemia; I10 Essential (primary) hypertension; J96.01 Acute respiratory failure with hypoxia; G40.909 Epilepsy, unspecified, not intractable, without status epilepticus; E87.0 Hyperosmolality and hypernatremia; J45.909 Unspecified asthma, uncomplicated; J96.00 Acute respiratory failure, unspecified whether with hypoxia or hypercapnia
CPT/HCPCS: 36415; 36600; 49450; 71045-TC-FY; 74018-TC-FY; 76000-TC-FY; 80048; 80053; 81003; 81015; 82550; 82553; 82803; 83605; 83735; 84100; 84132; 84484; 85025; 85027; 85610; 85730; 87040; 87070; 87086; 87186; 87205; 87389; 87522; 87804; 87899; 87902; 93005; 93010; 94002; 94640; 94761; 99285-25; J0131; J0475; J0735; J1644; J7030

== ENCOUNTER 2019-02-11 22:43 | Emergency (ER) | payer OTHER ==
[2019-02-11 22:59] VITALS: BP 119/83; PULSE 82; TEMP 98.1; BMI 28.3
--- NOTE | 2019-02-11 23:10 | PDOC ---
History of Present Illness - General Chief Complaint: G Tube Problem Stated Complaint: GT TUBE CLOGGED Time Seen by Provider: 02/11/19 23:10 History Source: Care Provider, [facility]dc Records Exam Limitations: Clinical Condition - History of Present Illness Initial Comments: 02/11/19 23:11 28 year old male with PMH cerebral palsy, MR, dysphagia, peg-tube, seizure disorder, hyponatremia, asthma, aspiration pneumonia, pneumothorax 2/2 central line placement BIBA to ED for peg-tube clogging. Past History - Past Medical History Allergies/Adverse Reactions: Allergies Allergy/AdvReac Type Severity Reaction Status Date / Time Beef Containing Products Allergy Unknown Verified 09/22/18 04:04 erythromycin base Allergy Verified 09/22/18 04:04 phenobarbital Allergy Verified 09/22/18 04:04 venom-honey bee Allergy Verified 09/22/18 04:04 [bee venom (honey bee)] Home Medications: Ambulatory Orders levETIRAcetam [Keppra Oral Solution -] 1,500 mg GT BID 01/19/15 Aspirin [ASA -] 81 mg GT HS 03/17/18 Carbamazepine [Tegretol -] 280 mg GT BID 03/17/18 Cholecalciferol (Vitamin D3) [Vitamin D3] 2,000 unit GT DAILY 03/17/18 Omeprazole Magnesium [Prilosec] 20 mg GT DAILY 03/17/18 Tamsulosin HCl [Flomax -] 0.4 mg GT DAILY 03/17/18 cloNIDine HCL [Catapres -] 0.2 mg PO HS 03/17/18 clonazePAM [KlonoPIN -] 1 mg GT TID 03/17/18 Baclofen [Lioresal -] 10 mg PO DAILY@0600,1200 tablet 03/21/18 Baclofen [Lioresal -] 20 mg GT DAILY@1800,0000 tablet 03/21/18 Budesonide [Pulmicort 0.5 mg Nebulizer -] 1 neb NEB BID 07/12/18 Diazepam [Diastat Acudial] 20 mg RC PRN PRN 07/12/18 Ipratropium/Albuterol Sulfate [Iprat-Albut 0.5-3(2.5) mg/3 ml] 3 ml IH QID PRN 07/12/18 Nystatin Ointment [Mycostatin Ointment -] 1 applic TP BID 07/12/18 Triamcinolone 0.1% Cream [Aristocort 0.1% Cream -] 1 applic TP BID 07/12/18 Albuterol 2.5/Ipratropium 0.5 [Duoneb -] 1 amp NEB RQ4H amp 07/18/18 Scopolamine Hydrobromide [Transderm-Scop -] 1 patch TD Q72H #10 patch.td72 07/18 Lactose-Reduced Food/Fiber [Jevity 1.5 Hermes Liquid] 100 ml GT DAILY 08/11/18 Mupirocin Ointment [Bactroban 2% Ointment -] 1 applic TP TID 08/11/18 levETIRAcetam [Keppra Oral Solution -] 1,500 mg GT BID cup 10/06/18 Amox-Tr/K Cl [Augmentin Suspension -] 250 mg PO BID@0800,1730 ml 10/10/18 Amox-Tr/K Cl [Augmentin Suspension -] 250 mg PO BID@0800,1730 5 Days #1 bottle 10/10/18 Asthma: Yes COPD: Yes (asthma, aspiration pnuemonia and respiratory distress) Dementia: Yes (mental retardation) GI Disorders: Yes (dysphagia, s/p peg insertion) Psychiatric Problems: (hyponatremia (due to meds)) Seizures: Yes - Surgical History Orthopedic Surgery: (Left Hip Osteotomy) - Immunization History Immunization Up to Date: Yes - Suicide/Smoking/Psychosocial Hx Smoking History: Never smoked Have you smoked in the past 12 months: No Number of Cigarettes Smoked Daily: 0 Cigars Per Day: 0 Hx Alcohol Use: No Drug/Substance Use Hx: No Substance Use Type: None Hx Substance Use Treatment: No Review of Systems - Review of Systems Able to Perform ROS?: No (Baseline MR) *Physical Exam - Vital Signs Last Vital Signs Temp Pulse Resp BP Pulse Ox 98.1 F 82 20 119/83 98 02/11/19 22:57 02/11/19 22:57 02/11/19 22:57 02/11/19 22:57 02/11/19 22:57 - Physical Exam Comments: 02/11/19 23:13 Constitutional: contracted upper extremities, sitting in wheelchair, in no apparent distress. HEENT: head is microcephaly, atraumatic. EOMI. PERRLA. Neck: supple. Full ROM. Heart: regular rhythm. no murmurs, rubs or gallops. Lungs: clear to auscultation bilaterally. no crackles, rhonchi or wheezing. no stridor. Abdomen: G-tube in place, no surrounding erythema or signs of infection. soft, nontender. normal bowel sounds. no rebound, guarding, masses. Extremities: peripheral pulses intact. no lower extremity edema. Neurological: CN 2-12 grossly intact. moves all four extremities. Psych: awake, alert. does not follow commands. Medical Decision Making - Medical Decision Making 02/11/19 23:59 28 year old male with above PMH presented to ED for peg-tube clogging. Initial Vital Signs Temp Pulse Resp BP Pulse Ox 98.1 F 82 20 119/83 98 02/11/19 22:57 02/11/19 22:57 02/11/19 22:57 02/11/19 22:57 02/11/19 22:57 Afebrile. No tachycardia. No tachypnea. No hypertension. No hypoxia on room air. Labs ordered: none Imaging ordered: Abdomen XR Medications ordered: none Balloon was necrotic, deflated with needle under US guidance by Dr. Calvert. Pending imaging for placement. 02/12/19 01:06 XR report: Perducantous gastrostomy tube in satisfactory position. Contrast material fills stomach and proximal small bowel. No contrast extravasation. Upper abdomen incompletely seen. Fixation thoracolumbar spine, sacrum, and iliac bones. Levoscoliosis. Moderate air in nondilated colon and minimal air in nondilated small bowel. Pt reassessed, small clot to G-tube insertion site, no active bleeding. Abdomen soft, nontender to palpation. Pt discharged. *DC/Admit/Observation/Transfer Diagnosis at time of Disposition: Gastrostomy tube dysfunction - Discharge Dispostion Disposition: [facility] Condition at time of disposition: Improved Decision to Admit order: No - Referrals - Patient Instructions Printed Discharge Instructions: How to Care for Your PEG Tube, DI for Feeding Tube Exchange Additional Instructions: The G-tube balloon was necrotic. It was replaced and verified with X-ray. Follow up with his primary care doctor within 3 days. His care is not complete until he follows up. Return to the Emergency Department for difficulty using peg tube, vomiting, fever, abdominal distension, abdominal pain, redness around site, discharge from site or any other new, worsening or concerning symptoms. - Post Discharge Activity
--- NOTE | 2019-02-12 00:18 | PDOC ---
Documentation entered by Venkatesh Bernal SCRIBE, acting as scribe for Patricia Calvert DO. Patricia Calvert DO: This documentation has been prepared by the Gabe sharma Daniel, SCRIBE, under my direction and personally reviewed by me in its entirety. I confirm that the documentation accurately reflects all work, treatment, procedures, and medical decision making performed by me. Attending Attestation - Resident Resident Name: Kim Young - ED Attending Attestation I have performed the following: I have examined & evaluated the patient, The case was reviewed & discussed with the resident, I agree w/resident's findings & plan, Exceptions are as noted - HPI HPI: 02/12/19 00:19 The patient is a 28 year old male with a past medical history of cerebral palsy , spastic quadraparesis, intractable seizures, and cortical blindes here today for evaluation of G tube obstruction. The patients aide reports that the patients G tube became clogged and came to the ER for evaluation. Patient is non verbal and could not provide history. - Physicial Exam PE: 02/12/19 00:19 Constitutional: patient non verbal. No acute distress. Head: Normocephalic. Atraumatic Eyes: PERRL. EOMI. Conjunctivae are not pale. ENT: Mucous membranes are moist and intact. Posterior pharynx without exudates or erythema. Uvula midline. Neck: Supple. Full ROM. No lymphadenopathy. Cardiovascular: Regular rate. Regular rhythm. S1, S2 regular. Distal pulses are 2+ and symmetric. Pulmonary/Chest: No evidence of respiratory distress. Clear to auscultation bilaterally No wheezing, rales or rhonchi. Abdominal: Soft and non-distended. There is no tenderness. No rebound, guarding or rigidity. No organomegaly. No palpable masses. Good bowel sounds. Back: No CVA tenderness. Musculoskeletal: Patient is wheelchair bound. Contracted upper extremities. No edema. No cyanosis. No clubbing. No calf tenderness. Radial/pedal pulses are intact and 2+ bilaterally Skin: Skin is warm and dry. No petechiae. No purpura. - Medical Decision Making 02/12/19 00:17 I, Dr. Patricia Calvert DO, attest that this document has been prepared under my direction and personally reviewed by me in its entirety. I further attest, that it accurately reflects all work, treatment, procedures and medical decision -making performed by me. 02/12/19 00:32 a/p: 28yo male with cp with clogged g tube -g tube could not be flushed -g tube was removed and then a new 18f g tube was placed -the facility brought the new g tube -pt sent to xray with gastrograffin for a confirmatory test -balloon would not deflate, had to be popped, on eval of old g tube, tube feeds within the balloon -pt tolerated the procedure well -no bleeding at the site, dressing applied 02/12/19 00:34 xray appears to show g tube in place, sent to [facility] for official read, if in place will be stable for dc to home 02/12/19 01:[address] per official read stable for dc to home
== END 2019-02-12 01:37 ==
LOC: JER 22:43
PROC: 0DH63UZ Insertion of Feeding Device into Stomach, Percutaneous Approach (ICD-10-PCS; principal; 2019-02-11)
DX: K94.23 Gastrostomy malfunction (principal); G80.0 Spastic quadriplegic cerebral palsy; H47.619 Cortical blindness, unspecified side of brain; G40.909 Epilepsy, unspecified, not intractable, without status epilepticus; J45.909 Unspecified asthma, uncomplicated; Z88.8 Allergy status to other drugs, medicaments and biological substances; Z91.018 Allergy to other foods
CPT/HCPCS: 43762; 74019-TC-FY; 99281-25

== ENCOUNTER 2019-03-07 18:40 | Inpatient (IN) | payer OTHER ==
[2019-03-07] MEDS ORDERED: ACETAMINOPHEN 1000 MG/100 ML VIAL (NON FORMULARY) IVPB ONE (19:32)
[2019-03-07] MEDS ORDERED: VANCOMYCIN 1 GM in D5W (PRE-DOCKED) 1,000 MG/250 ML IVPB ONE (19:37)
[2019-03-07] MEDS ORDERED: PIPERACILLIN/TAZOB 3.375 GM 3.375 GM in DEXTROSE 5%-WATER - 50 ML IVPB ONE (19:37)
--- NOTE | 2019-03-07 19:37 | PDOC ---
History of Present Illness - General Chief Complaint: SIRS, Suspected/Possible Stated Complaint: PNEUMONIA Time Seen by Provider: 03/07/19 19:25 - History of Present Illness Initial Comments: Tony Bañuelos is a 28yo man with a PMH of profound intellectual disability, CP w/ spastic quadriparesis, microcephaly, intractable seizures, corticle blindness, asthma, scoliosis s/p repair (07/2006), dysphagia, hyponatremia, s/p G-tube who presents from [place] with fever, diaphoresis, rigors, tachypnea, tachycardia, and abnormal respiration. The staff member present at beside is unaware of any specific symptoms including cough, problems with the G-tube or vomiting, diarrhea, rash, or any other known abnormalities. His temp on arrival to the ED was noted to be 101F. Past History - Past Medical History Allergies/Adverse Reactions: Allergies Allergy/AdvReac Type Severity Reaction Status Date / Time Beef Containing Products Allergy Unknown Verified 03/07/19 19:08 erythromycin base Allergy Verified 03/07/19 19:08 phenobarbital Allergy Verified 03/07/19 19:08 venom-honey bee Allergy Verified 03/07/19 19:08 [bee venom (honey bee)] Home Medications: Ambulatory Orders Aspirin [ASA -] 81 mg GT HS 03/17/18 Carbamazepine [Tegretol -] 280 mg GT BID 03/17/18 Cholecalciferol (Vitamin D3) [Vitamin D3] 2,000 unit GT DAILY 03/17/18 Omeprazole Magnesium [Prilosec] 20 mg GT DAILY 03/17/18 Tamsulosin HCl [Flomax -] 0.4 mg GT DAILY 03/17/18 cloNIDine HCL [Catapres -] 0.2 mg PO HS 03/17/18 clonazePAM [KlonoPIN -] 1 mg GT TID 03/17/18 Baclofen [Lioresal -] 10 mg PO DAILY@0600,1200 tablet 03/21/18 Baclofen [Lioresal -] 20 mg GT DAILY@1800,0000 tablet 03/21/18 Budesonide [Pulmicort 0.5 mg Nebulizer -] 1 neb NEB BID 07/12/18 Diazepam [Diastat Acudial] 20 mg RC PRN PRN 07/12/18 Ipratropium/Albuterol Sulfate [Iprat-Albut 0.5-3(2.5) mg/3 ml] 3 ml IH QID PRN 07/12/18 Nystatin Ointment [Mycostatin Ointment -] 1 applic TP BID 07/12/18 Triamcinolone 0.1% Cream [Aristocort 0.1% Cream -] 1 applic TP BID 07/12/18 Albuterol 2.5/Ipratropium 0.5 [Duoneb -] 1 amp NEB RQ4H amp 07/18/18 Scopolamine Hydrobromide [Transderm-Scop -] 1 patch TD Q72H #10 patch.td72 07/18 Mupirocin Ointment [Bactroban 2% Ointment -] 1 applic TP TID 08/11/18 levETIRAcetam [Keppra Oral Solution -] 1,500 mg GT BID cup 10/06/18 Carbamazepine Oral Suspension [Tegretol 100mg/5mL Oral Suspension -] 1 supp GT BID 03/07/19 Asthma: Yes COPD: Yes (asthma, aspiration pnuemonia and respiratory distress) Dementia: Yes (mental retardation) GI Disorders: Yes (dysphagia, s/p peg insertion) Psychiatric Problems: (hyponatremia (due to meds)) Seizures: Yes - Surgical History Orthopedic Surgery: (Left Hip Osteotomy) - Immunization History Td Vaccination: Yes TDAP Vaccination: Yes Immunization Up to Date: Yes - Suicide/Smoking/Psychosocial Hx Smoking History: Unknown if ever smoked Have you smoked in the past 12 months: No Number of Cigarettes Smoked Daily: 0 Cigars Per Day: 0 Hx Alcohol Use: No Drug/Substance Use Hx: No Substance Use Type: None Hx Substance Use Treatment: No Review of Systems - Review of Systems Comments:: Pt nonverbal, could not obtain *Physical Exam - Vital Signs Last Vital Signs Temp Pulse Resp BP Pulse Ox 101 F H 101 H 18 98/58 L 99 03/07/19 18:40 03/07/19 18:40 03/07/19 18:40 03/07/19 18:40 03/07/19 18:40 - Physical Exam Comments: General: Diaphoretic, significant contractures HEENT: Marked microcephaly, eyes closed, poor dentition, sonorous upper respiratory sounds Cards: Tachycardic, regular, no murmur appreciated Pulm: Loud upper respiratory noise, no distinct crackles or wheezing appreciated , normal sats w/ 2L by NC Ext: Atraumatic. 1+ pedal edema. Markedly increased tone w/ contractures Vasc: Extremities WWP Skin: Normal color, no rashes or lesions Neuro: Awake, unresponsive to verbal stimuli, CN grossly intact ED Treatment Course - LABORATORY CBC & Chemistry Diagram: 03/07/19 20:00 03/07/19 20:00 - RADIOLOGY Radiology Studies Ordered: Category Date Time Status CHEST X-RAY PORTABLE* [RAD] Stat Radiology 03/07/19 19:31 Ordered Medical Decision Making - Medical Decision Making 03/07/19 19:32 Tony Bañuelos is a 28yo man with a PMH of profound intellectual disability, CP w/ spastic quadriparesis, microcephaly, intractable seizures, corticle blindness, asthma, scoliosis s/p repair (07/2006), dysphagia, hyponatremia, s/p G-tube who presents from [place] with fever, diaphoresis, rigors, tachypnea, tachycardia, and abnormal respiration. - Per notes from [place], staff physician was concerned for pneumonia due to tachypnea and sats at 95% on RA - IV placed by EMS, NS bolus running - Sepsis order set - Acetaminophen for fever 03/07/19 21:02 - CXR with increased hilar vascular markings - CBC without concerning abnormalities. Lactate 1.8. UA negative. Chemistry pending - HR now in 80's, comfortable on 2L by NC, sats in high 90's 03/07/19 21:35 - Hypotensive to the 70's. Per chart review, is normally between 110-120 systolic - Additional 1L NS ordered 03/07/19 23:04 - BP imporved w/ additional fluids - Microblog sent to hospitalist for admission. Discussed w/ Dr Bunn. Will admit to Dr Greco's service Discussed with Dr Vicente. Yomaira Alas PGY2 *DC/Admit/Observation/Transfer Diagnosis at time of Disposition: Sepsis associated hypotension Sepsis Qualifiers: Sepsis type: sepsis due to unspecified organism Qualified Code(s): A41.9 - Sepsis, unspecified organism - Discharge Dispostion Decision to Admit order: Yes - Referrals - Patient Instructions - Post Discharge Activity
[2019-03-07] MEDS ORDERED: ACETAMINOPHEN INJECTION 100 ML IVPB ONE (19:56)
[2019-03-07] MEDS ORDERED: VANCOMYCIN 1 GRAM (PRE-DOCKED) 1,000 MG/250 ML BAG IVPB ONE ×2 (19:56→20:58)
[2019-03-07] MEDS ORDERED: PIPERACILLIN/TAZOB 3.375 GM 3.375 GM/50 ML BAG IVPB ONE ×2 (19:57→20:58)
[2019-03-07 20:27] LABS: BASO % 0.1 % (0-2.0); HEMATOCRIT 38.9 % (35.4-49); HEMOGLOBIN 12.8 GM/dL (11.7-16.9); LYMPH % 6.6 % (8-40); MCH 27.1 pg (25.7-33.7); MCHC 32.9 g/dl (32.0-35.9); MEAN CELL VOLUME 82.6 fl (80-96); MEAN PLT VOLUME 7.5 fl (7.5-11.1); MONO % 6.8 % (3.8-10.2); NEUT % 86.5 % (42.8-82.8); PLATELET COUNT 247 K/MM3 (134-434); RBC 4.71 M/mm3 (4.00-5.60); RDW 18.3 % (11.9-15.9); WHITE BLOOD COUNT 9.5 K/mm3 (4.0-10.0)
[2019-03-07 20:40] LABS: INR 1.29 (0.83-1.09); PROTHROMBIN TIME (PATIENT) 15.3 SEC (9.7-13.0)
[2019-03-07 20:43] LABS: ACTIVATED PTT 33.5 SECONDS (25.2-36.5)
[2019-03-07 20:52] LABS: PH,URINE 7.5 (5.0-8.0); URINE APPEARANCE CLEAR; URINE BILIRUBIN NEGATIVE (NEGATIVE); URINE COLOR YELLOW; URINE GLUCOSE (UA) NEGATIVE (NEGATIVE); URINE KETONE NEGATIVE (NEGATIVE); URINE LEUK ESTERASE NEGATIVE (NEGATIVE); URINE NITRITE NEGATIVE (NEGATIVE); URINE PROTEIN TRACE (NEGATIVE); URINE UROBILINOGEN 0.2 mg/dL (0.2-1.0)
[2019-03-07 21:17] LABS: ALBUMIN 2.8 g/dl (3.4-5.0); ALK PHOS 89 U/L (45-117); ANION GAP 8 MMOL/L (8-16); BILIRUBIN,TOTAL < 0.1 mg/dL (0.2-1); CHLORIDE 108 mmol/L (98-107); CO2 23 mmol/L (21-32); CREATININE 0.4 mg/dL (0.55-1.3); GLUCOSE,RANDOM 59 mg/dL (74-106); POTASSIUM 3.5 mmol/L (3.5-5.1); SGOT/AST 9 U/L (15-37); SGPT/ALT 26 U/L (13-61); SODIUM 139 mmol/L (136-145); TOT PROT 6.3 g/dl (6.4-8.2)
[2019-03-07 21:18] LABS: CALCIUM 6.9 mg/dL (8.5-10.1)
[2019-03-07] MEDS ORDERED: SODIUM CHLORIDE 0.9% 500 ML INFUS.BAG IV ONE (21:34)
--- NOTE | 2019-03-07 23:31 | PN ---
Teaching Attending Note Name of Resident: Brandon Fernandes ATTENDING PHYSICIAN STATEMENT I saw and evaluated the patient. I reviewed the resident's note and discussed the case with the resident. I agree with the resident's findings and plan as documented. SUBJECTIVE: Patient is a 28 year old male with a PMH of microcephaly, intellectual disability, cerebral palsy with spastic quadriparesis, intractable seizures, cortical blindness, asthma, scoliosis (s/p repair in 07/2006), dysphagia, and hyponatremia, s/p G-tube portable who presents to the ER from [place] via EMS with fevers since earlier today. As per [facility], patient had some associated diaphoresis, rigors, tachypnea, tachycardia, and abnormal respiration. Staff member present at beside is unaware of any specific symptoms including cough, problems with the G-tube or vomiting, diarrhea, rash, or any other known abnormalities. His temp on arrival to the ER was 101F. No other symptoms or complaints noted. OBJECTIVE: Alert Vital Signs Period Temp Pulse Resp BP Sys/Don Pulse Ox Last 24 Hr 101 F 80-101 18-26 78-98/45-58 92-99 HEENT: No Jaundice, eye redness or discharge, PERRLA, EOMI. Normocephalic, atraumatic. External ears are normal. No nasal discharge. Neck: Supple, nontender. No palpable adenopathy or thyromegaly. No JVD Chest: Good effort. Rales right lung base. Clear to percussion. Heart: Regular. No S3, rub or murmur Abdomen: Not distended, soft, nontender and no HSM. G tube in place. No rebound or guarding. Normal bowel sounds. Ext: Peripheral pulses intact. No leg edema. Skin: Warm and dry. No petechiae, rash or ecchymosis. Neuro: Alert. Nonverbal. CN 2-12 grossly intact. Sensation grossly intact in all four extremities and DTR are symmetric. Psych: Appropriate mood and affect. Current Medications Generic Name Dose Route Start Last Admin Trade Name Freq PRN Reason Stop Dose Admin Enoxaparin Sodium 40 mg 03/08/19 10:00 Lovenox - SQ DAILY [facility] Sodium Chloride 1,000 mls @ 42 mls/hr 03/07/19 23:45 Normal Saline - IV ASDIR [facility] Home Medications Medication Instructions Recorded Aspirin [ASA -] 81 mg GT HS 03/17/18 Carbamazepine [Tegretol -] 280 mg GT BID 03/17/18 Cholecalciferol (Vitamin D3) 2,000 unit GT DAILY 03/17/18 [Vitamin D3] Omeprazole Magnesium [Prilosec] 20 mg GT DAILY 03/17/18 Tamsulosin HCl [Flomax -] 0.4 mg GT DAILY 03/17/18 cloNIDine HCL [Catapres -] 0.2 mg PO HS 03/17/18 clonazePAM [KlonoPIN -] 1 mg GT TID 03/17/18 Baclofen [Lioresal -] 10 mg PO DAILY@0600,1200 tablet 03/21/18 Baclofen [Lioresal -] 20 mg GT DAILY@1800,0000 tablet 03/21/18 Budesonide [Pulmicort 0.5 mg 1 neb NEB BID 07/12/18 Nebulizer -] Diazepam [Diastat Acudial] 20 mg RC PRN PRN 07/12/18 Ipratropium/Albuterol Sulfate 3 ml IH QID PRN 07/12/18 [Iprat-Albut 0.5-3(2.5) mg/3 ml] Nystatin Ointment [Mycostatin 1 applic TP BID 07/12/18 Ointment -] Triamcinolone 0.1% Cream 1 applic TP BID 07/12/18 [Aristocort 0.1% Cream -] Albuterol 2.5/Ipratropium 0.5 1 amp NEB RQ4H amp 07/18/18 [Duoneb -] Scopolamine Hydrobromide 1 patch TD Q72H #10 patch.td72 07/18/18 [Transderm-Scop -] Mupirocin Ointment [Bactroban 2% 1 applic TP TID 08/11/18 Ointment -] levETIRAcetam [Keppra Oral 1,500 mg GT BID cup 10/06/18 Solution -] Carbamazepine Oral Suspension 1 supp GT BID 03/07/19 [Tegretol 100mg/5mL Oral Suspension -] Abnormal Lab Results 03/07/19 03/07/19 03/07/19 20:00 20:00 20:00 RDW 18.3 H Absolute Neuts (auto) 8.3 H Neutrophils % 86.5 H D Lymphocytes % 6.6 L D PT with INR 15.30 H INR 1.29 H Chloride 108 H Creatinine 0.4 L Random Glucose 59 L Calcium 6.9 L* Total Bilirubin < 0.1 L AST 9 L Total Protein 6.3 L Albumin 2.8 L ASSESSMENT AND PLAN: 1. Sepsis - Likely due to aspiration pneumonia. CXR shows scoliosis, elevated right hemidiaphragm and increased interstitial markings. Sepsis workup being done. Will continue IV NS, IV Vancomycin and Zosyn for now. Cause of elevated right hemidiaphragm is unclear. Will get CT chest, abdomen/pelvis with contrast. Urine legionella antigen. Implement aspiration and seizure precautions. Continue comprehensive care of his comorbid conditions. 2. Hypoalbuminemia - Possibly due to combined effects of malnutrition and inflammation associated with comorbid chronic conditions. Will ensure adequate dietary protein intake and also consult glass curvature gauger. 3. DVT prophylaxis - Lovenox 40 mg SQ q 24 hours. 4. Advance directives - Full code
[2019-03-07] MEDS ORDERED: SODIUM CHLORIDE 1,000 ML IV SCH (23:45)
--- NOTE | 2019-03-08 00:31 | HP ---
CHIEF COMPLAINT: Labored breathing PCP: [facility] HISTORY OF PRESENT ILLNESS: 28M with PMH of intellectual disability, Cerebral palsy with spastic quadriparesis, microcephaly, intractable seizures, cortical blindness, asthma, scoliosis, dysphagia, s/p G-tube who presents today with labored breathing and tachycardia. Patient was at his nursing facility when the staff found him to have labored breathing. They found the patient diaphoretic, with a pulse oximeter reading of 94% on RA, along with heart rates in the 130s. The facility administered pulmicort for the patient. He had 2 normal bowel movements, urinated a normal amount, and was having his feeds in the daytime through his G-tube. They did not notice any rashes. He had no diarrhea or vomiting today or in the last few days. Of note the DCP accompanying the patient noted that more residents at the facility have had similar symptoms and been sick recently. ER course was notable for: (1)Chest x-ray: right diaphragm is elevated, hardware is in place to repair scoliosis, right hilar infiltrates. Difficult to appreciate any right lower lobe pathology due to elevated diaphragm. (2)Patient was febrile at 101, hypotensive at 78/45. (3)Patient was given 1 L NS, and vancomycin/zoysn. Recent Travel:None PAST MEDICAL HISTORY: Intellectual delay, cerebral palsy with spastic quadriparesis, microcephaly, intractable seizures, cortical blindness, asthma, scoliosis, dysphagia, hyponatremia PAST SURGICAL HISTORY: Left hip osteotomy, scoliosis repair in 2005. Social History: Smoking:None Alcohol:None Drugs: None Family History: Unable to determine Allergies Beef Containing Products Allergy (Unknown, Verified 03/07/19 19:08) erythromycin base Allergy (Verified 03/07/19 19:08) phenobarbital Allergy (Verified 03/07/19 19:08) venom-honey bee [bee venom (honey bee)] Allergy (Verified 03/07/19 19:08) HOME MEDICATIONS: Home Medications Medication Instructions Recorded Aspirin [ASA -] 81 mg GT HS 03/17/18 Carbamazepine [Tegretol -] 280 mg GT BID 03/17/18 Cholecalciferol (Vitamin D3) 2,000 unit GT DAILY 03/17/18 [Vitamin D3] Omeprazole Magnesium [Prilosec] 20 mg GT DAILY 03/17/18 Tamsulosin HCl [Flomax -] 0.4 mg GT DAILY 03/17/18 cloNIDine HCL [Catapres -] 0.2 mg PO HS 03/17/18 clonazePAM [KlonoPIN -] 1 mg GT TID 03/17/18 Baclofen [Lioresal -] 10 mg PO DAILY@0600,1200 tablet 03/21/18 Baclofen [Lioresal -] 20 mg GT DAILY@1800,0000 tablet 03/21/18 Budesonide [Pulmicort 0.5 mg 1 neb NEB BID 07/12/18 Nebulizer -] Diazepam [Diastat Acudial] 20 mg RC PRN PRN 07/12/18 Ipratropium/Albuterol Sulfate 3 ml IH QID PRN 07/12/18 [Iprat-Albut 0.5-3(2.5) mg/3 ml] Nystatin Ointment [Mycostatin 1 applic TP BID 07/12/18 Ointment -] Triamcinolone 0.1% Cream 1 applic TP BID 07/12/18 [Aristocort 0.1% Cream -] Albuterol 2.5/Ipratropium 0.5 1 amp NEB RQ4H amp 07/18/18 [Duoneb -] Scopolamine Hydrobromide 1 patch TD Q72H #10 patch.td72 07/18/18 [Transderm-Scop -] Mupirocin Ointment [Bactroban 2% 1 applic TP TID 08/11/18 Ointment -] levETIRAcetam [Keppra Oral 1,500 mg GT BID cup 10/06/18 Solution -] Carbamazepine Oral Suspension 1 supp GT BID 03/07/19 [Tegretol 100mg/5mL Oral Suspension -] REVIEW OF SYSTEMS See above CONSTITUTIONAL: Absent: fever, chills, diaphoresis, generalized weakness, malaise, loss of appetite, weight change HEENT: Absent: rhinorrhea, nasal congestion, throat pain, throat swelling, difficulty swallowing, mouth swelling, ear pain, eye pain, visual changes CARDIOVASCULAR: tachycardia Absent: chest pain, syncope, palpitations, irregular heart rate, lightheadedness , peripheral edema RESPIRATORY: labored breathing Absent: cough, orthopnea, wheezing, stridor, hemoptysis GASTROINTESTINAL: Absent: abdominal pain, abdominal distension, nausea, vomiting, diarrhea, constipation, melena, hematochezia GENITOURINARY: Absent: dysuria, frequency, urgency, hesitancy, hematuria, flank pain, genital pain MUSCULOSKELETAL: Absent: myalgia, arthralgia, joint swelling, back pain, neck pain SKIN: Absent: rash, itching, pallor HEMATOLOGIC/IMMUNOLOGIC: Absent: easy bleeding, easy bruising, lymphadenopathy, frequent infections ENDOCRINE: Absent: unexplained weight gain, unexplained weight loss, heat intolerance, cold intolerance NEUROLOGIC: Absent: headache, focal weakness or paresthesias, dizziness, unsteady gait, seizure, mental status changes, bladder or bowel incontinence PSYCHIATRIC: Absent: anxiety, depression, suicidal or homicidal ideation, hallucinations. PHYSICAL EXAMINATION Vital Signs - 24 hr 03/07/19 03/07/19 03/07/19 18:40 20:35 20:48 Temperature 101 F H Pulse Rate 101 H 86 Pulse Rate [ Apical] Respiratory 18 Rate Blood Pressure 98/58 L Blood Pressure [Left Arm] O2 Sat by Pulse 99 99 96 Oximetry (%) 03/07/19 21:22 Temperature Pulse Rate Pulse Rate [ 80 Apical] Respiratory 26 H Rate Blood Pressure Blood Pressure 78/45 L [Left Arm] O2 Sat by Pulse 92 L Oximetry (%) GENERAL: Asleep, resting comfortably, snoring when examiner entered room. HEAD: Microcephaly with no signs of trauma.. EARS, NOSE, THROAT: Ears normal, nares patent, oropharynx clear without exudates. Moist mucous membranes. NECK: Normal range of motion, supple without lymphadenopathy, JVD, or masses. LUNGS: Rales throughout the right lung HEART: Regular rate and rhythm, normal S1 and S2 without murmur, rub or gallop. ABDOMEN: Soft, nontender, not distended, normoactive bowel sounds, no guarding, no rebound, no masses. MUSCULOSKELETAL: Contracted posture. UPPER EXTREMITIES: 2+ pulses, warm, well-perfused. LOWER EXTREMITIES: 2+ pulses, warm, well-perfused. No calf tenderness. +1 pitting edema b/l SKIN: Warm,normal capillary refill. Erythema noted in left lower leg. Laboratory Results - last 24 hr 03/07/19 03/07/19 03/07/19 20:00 20:00 20:00 WBC 9.5 RBC 4.71 Hgb 12.8 Hct 38.9 MCV 82.6 MCH 27.1 D MCHC 32.9 RDW 18.3 H Plt Count 247 D MPV 7.5 Absolute Neuts (auto) 8.3 H Neutrophils % 86.5 H D Lymphocytes % 6.6 L D Monocytes % 6.8 Eosinophils % 0.0 D Basophils % 0.1 Nucleated RBC % 0 PT with INR 15.30 H INR 1.29 H PTT (Actin FS) 33.5 Sodium 139 Potassium 3.5 Chloride 108 H Carbon Dioxide 23 Anion Gap 8 BUN 10.0 Creatinine 0.4 L Est GFR (CKD-EPI)AfAm 188.66 Est GFR (CKD-EPI)NonAf 162.78 Random Glucose 59 L Lactic Acid Calcium 6.9 L* Total Bilirubin < 0.1 L AST 9 L ALT 26 Alkaline Phosphatase 89 Troponin I 0.03 Total Protein 6.3 L Albumin 2.8 L Urine Color Urine Appearance Urine pH Ur Specific [place] Urine Protein Urine Glucose (UA) Urine Ketones Urine Blood Urine Nitrite Urine Bilirubin Urine Urobilinogen Ur Leukocyte Esterase 03/07/19 03/07/19 20:00 20:28 WBC RBC Hgb Hct MCV MCH MCHC RDW Plt Count MPV Absolute Neuts (auto) Neutrophils % Lymphocytes % Monocytes % Eosinophils % Basophils % Nucleated RBC % PT with INR INR PTT (Actin FS) Sodium Potassium Chloride Carbon Dioxide Anion Gap BUN Creatinine Est GFR (CKD-EPI)AfAm Est GFR (CKD-EPI)NonAf Random Glucose Lactic Acid 1.8 Calcium Total Bilirubin AST ALT Alkaline Phosphatase Troponin I Total Protein Albumin Urine Color Yellow Urine Appearance Clear Urine pH 7.5 D Ur Specific [place] 1.015 Urine Protein Trace Urine Glucose (UA) Negative Urine Ketones Negative Urine Blood Negative Urine Nitrite Negative Urine Bilirubin Negative Urine Urobilinogen 0.2 Ur Leukocyte Esterase Negative ASSESSMENT/PLAN: 28 M with PMH of intellectual disability and cerebral palsy with spastic quadraparesis who presents from his nursing facility with likely pneumonia. 1) Right lobe Pneumonia: Vancomycin/Zoysn Pending Blood Culture Pending Urine Culture Pending Urine Legionella Antigen Elevated right diaphragm makes it difficult to fully appreciate right lower lobe on imaging- follow up Chest CT and Abd/Pelvis CT w contrast 2)Malnourished NS @42 ml/hr Hypoalbuminemia, hypoproteinemia, hypocalcemia, hyperchloremia likely from inadequate feeds Begin feeds at max tomorrow morning after finding out which kinds of feeds were given at [facility] contact #: [phone] DVT prophylaxis: Lovenox 40 mg SQ QDaily F: NS @42 ml/hr E: Monitor albumin, calcium, chloride N: Resume tube feeds Problem List - Problem (1) Aspiration pneumonia Code(s): J69.0 - PNEUMONITIS DUE TO INHALATION OF FOOD AND VOMIT (2) Fever Code(s): R50.9 - FEVER, UNSPECIFIED (3) Functional quadriplegia Code(s): R53.2 - FUNCTIONAL QUADRIPLEGIA (4) Tachycardia Code(s): R00.0 - TACHYCARDIA, UNSPECIFIED Visit type - Emergency Visit Emergency Visit: Yes ED Registration Date: 03/07/19 Care time: The patient presented to the Emergency Department on the above date and was hospitalized for further evaluation of their emergent condition. - New Patient This patient is new to me today: Yes Date on this admission: 03/08/19 - Critical Care Critical Care patient: No ATTENDING PHYSICIAN STATEMENT I saw and evaluated the patient. I reviewed the resident's note and discussed the case with the resident. I agree with the resident's findings and plan as documented. SUBJECTIVE: OBJECTIVE: ASSESSMENT AND PLAN:
--- NOTE | 2019-03-08 02:08 | PDOC ---
Documentation entered by Arlette Whalen SCRIBE, acting as scribe for Lidia Vicente MD. Lidia Vicente MD: This documentation has been prepared by the scribe, Arlette Whalen SCRIBE, under my direction and personally reviewed by me in its entirety. I confirm that the documentation accurately reflects all work, treatment, procedures, and medical decision making performed by me. Attending Attestation - Resident Resident Name: Yomaira Alas - ED Attending Attestation I have performed the following: I have examined & evaluated the patient, The case was reviewed & discussed with the resident, I agree w/resident's findings & plan, Exceptions are as noted - HPI HPI: 03/07/19 19:36 28-year-old male brought in by ambulance from [facility] for fever. 03/07/19 19:57 The patient is a 28 year old male with a significant past medical history of microcephaly, intellectual disability, cerebral palsy, w/ spastic quadriparesis , intractable seizures, corticle blindness, asthma, scoliosis s/p repair (2005), dysphagia, and hyponatremia, s/p G-tube portable who presents to the emergency department from [place] via EMS with fevers since earlier today. As per home, patient had some associated diaphoresis, rigors, tachypnea, tachycardia, and abnormal respiration.Staff member present at beside is unaware of any specific symptoms including cough, problems with the G-tube or vomiting, diarrhea, rash, or any other known abnormalities. His temp on arrival to the ED was noted to be 101F. No other symptoms or complaints noted. - Physicial Exam PE: 03/07/19 19:58 GENERAL: Well developed, well nourished. Awake and alert. No acute distress. HEENT: Normocephalic, atraumatic. PERRLA, EOMI. No conjunctival pallor. Sclera are non- icteric. Moist mucous membranes. Oropharynx is clear. NECK: Supple. Full ROM. No JVD. Carotid pulses 2+ and symmetric, without bruits. No thyromegaly. No lymphadenopathy. CARDIOVASCULAR:(+)tachy. Regular rhythm. No murmurs, rubs, or gallops. Distal pulses are 2+ and symmetric. PULMONARY: No evidence of respiratory distress. Lungs clear to auscultation bilaterally. No wheezing, rales or rhonchi. ABDOMINAL:(+)G-tube in place. No drainage or erythema. Soft. Non-tender. Non-distended. No rebound or guarding. No organomegaly. Normoactive bowel sounds. MUSCULOSKELETAL Normal range of motion at all joints. No bony deformities or tenderness. No CVA tenderness. EXTREMITIES: No cyanosis. No clubbing. No edema. No calf tenderness. SKIN: Warm and dry. Normal capillary refill. No rashes. No jaundice. NEUROLOGICAL: (+)non-verbal, non-ambulatory at baseline. Alert, awake, appropriate. Cranial nerves 2-12 intact. No deficits to light touch and temperature in face, upper extremities and lower extremities. No motor deficits in the face, upper extremities and lower extremities. Normoreflexic in the upper and lower extremities. Normal speech. Toes are down- going bilaterally. Gait deferred. PSYCHIATRIC: Cooperative. Good eye contact. Appropriate mood and affect. - Medical Decision Making 03/07/19 19:37 past medical history significant for Cerebral paolsy with Spastic Quadriplegia, scoliosis,Cortical Blindness, seizures surgical history for GC G-tube insertion, left hip osteotomy 03/07/19 19:45 signs reviewed. Patient had a 101 temp rectally, pulse tachycardia, rate of 106 and his pulse ox is 97% on 3 L O2 nasal cannula Differential diagnosis includes community-acquired pneumonia, urosepsis, bacteremia. Plan includes blood cultures, urine cultures, complete sepsis workup., IV fluids and antibiotics and admission
--- NOTE | 2019-03-08 07:03 | PN ---
Physical Exam: SUBJECTIVE: Patient seen and examined by the bedside. OBJECTIVE: Vital Signs Period Temp Pulse Resp BP Sys/Don Pulse Ox Last 24 Hr 99.1 F-101 F 72-101 18-26 78-141/45-71 92-99 GENERAL: The patient is awake, alert, not oriented in time or place HEAD: Microcephalic features present EYES: No ptosis. LUNGS: Breath sounds diminished B/L, no accessory muscle use. HEART: Regular rate and rhythm, S1, S2 without murmur, rub or gallop. ABDOMEN: G Tube seen, soft, nontender, nondistended, normoactive bowel sounds, no guarding, no rebound, no hepatosplenomegaly, no masses. EXTREMITIES: well-perfused, no edema. NEUROLOGICAL: no speech, no gait SKIN: Warm, dry, normal turgor, no rashes or lesions noted, no decubitus ulcers noticed Laboratory Results - last 24 hr 03/07/19 03/07/19 03/07/19 20:00 20:00 20:00 WBC 9.5 RBC 4.71 Hgb 12.8 Hct 38.9 MCV 82.6 MCH 27.1 D MCHC 32.9 RDW 18.3 H Plt Count 247 D MPV 7.5 Absolute Neuts (auto) 8.3 H Neutrophils % 86.5 H D Lymphocytes % 6.6 L D Monocytes % 6.8 Eosinophils % 0.0 D Basophils % 0.1 Nucleated RBC % 0 PT with INR 15.30 H INR 1.29 H PTT (Actin FS) 33.5 Sodium 139 Potassium 3.5 Chloride 108 H Carbon Dioxide 23 Anion Gap 8 BUN 10.0 Creatinine 0.4 L Est GFR (CKD-EPI)AfAm 188.66 Est GFR (CKD-EPI)NonAf 162.78 Random Glucose 59 L Lactic Acid Calcium 6.9 L* Total Bilirubin < 0.1 L AST 9 L ALT 26 Alkaline Phosphatase 89 Troponin I 0.03 Total Protein 6.3 L Albumin 2.8 L Urine Color Urine Appearance Urine pH Ur Specific [place] Urine Protein Urine Glucose (UA) Urine Ketones Urine Blood Urine Nitrite Urine Bilirubin Urine Urobilinogen Ur Leukocyte Esterase 03/07/19 03/07/19 20:00 20:28 WBC RBC Hgb Hct MCV MCH MCHC RDW Plt Count MPV Absolute Neuts (auto) Neutrophils % Lymphocytes % Monocytes % Eosinophils % Basophils % Nucleated RBC % PT with INR INR PTT (Actin FS) Sodium Potassium Chloride Carbon Dioxide Anion Gap BUN Creatinine Est GFR (CKD-EPI)AfAm Est GFR (CKD-EPI)NonAf Random Glucose Lactic Acid 1.8 Calcium Total Bilirubin AST ALT Alkaline Phosphatase Troponin I Total Protein Albumin Urine Color Yellow Urine Appearance Clear Urine pH 7.5 D Ur Specific [place] 1.015 Urine Protein Trace Urine Glucose (UA) Negative Urine Ketones Negative Urine Blood Negative Urine Nitrite Negative Urine Bilirubin Negative Urine Urobilinogen 0.2 Ur Leukocyte Esterase Negative Active Medications Generic Name Dose Route Start Last Admin Trade Name Freq PRN Reason Stop Dose Admin Enoxaparin Sodium 40 mg 03/08/19 10:00 Lovenox - SQ DAILY ALEKSANDR Sodium Chloride 1,000 mls @ 42 mls/hr 03/07/19 23:45 03/08/19 01:05 Normal Saline - IV 42 mls/hr ASDIR ALEKSANDR Administration Vancomycin HCl 1,250 mg/ 250 mls @ 166.667 mls/hr 03/08/19 10:00 Dextrose IVPB 03/08/19 11:29 Q12H ALEKSANDR Protocol Piperacillin Sod/Tazobactam 50 mls @ 100 mls/hr 03/08/19 10:00 Sod 3.375 gm/ Dextrose IVPB 03/08/19 10:29 BID ALEKSANDR Protocol Vancomycin HCl 1,250 mg/ 250 mls @ 166.667 mls/hr 03/08/19 22:00 Dextrose IVPB Q12H ALEKSANDR Protocol Piperacillin Sod/Tazobactam 50 mls @ 100 mls/hr 03/08/19 22:00 Sod 3.375 gm/ Dextrose IVPB BID ALEKSANDR Protocol Current Medications Enoxaparin Sodium (Lovenox -) 40 mg SQ DAILY ALEKSANDR Sodium Chloride (Normal Saline -) 1,000 mls @ 42 mls/hr IV ASDIR ALEKSANDR Last Admin: 03/08/19 01:05 Dose: 42 mls/hr Vancomycin HCl 1,250 mg/ (Dextrose) 250 mls @ 166.667 mls/hr IVPB Q12H ALEKSANDR; Protocol Stop: 03/08/19 11:29 Piperacillin Sod/Tazobactam (Sod 3.375 gm/ Dextrose) 50 mls @ 100 mls/hr IVPB BID ALEKSANDR; Protocol Stop: 03/08/19 10:29 Vancomycin HCl 1,250 mg/ (Dextrose) 250 mls @ 166.667 mls/hr IVPB Q12H ALEKSANDR; Protocol Piperacillin Sod/Tazobactam (Sod 3.375 gm/ Dextrose) 50 mls @ 100 mls/hr IVPB BID ALEKSANDR; Protocol 28M with PMH of microcephaly, intellectual disability, cerebral palsy with spastic quadriparesis, intractable seizures, cortical blindness, asthma, scoliosis, dysphagia, G-tube insertion, who presented to the ER from [place] with fevers (101) since early Wednesday, labored breathing, tachycardia, and hypotensive (75/48) ASSESSMENT/PLAN: 28 M with PMH of intellectual disability and cerebral palsy with spastic quadraparesis who presents from his nursing facility with likely aspiration pneumonia. #Sepsis/Aspiration Pneumonia: -CXR: right diaphragm is elevated, scoliosis hardware visible, right hilar infiltrates. Difficult to appreciate any right lower lobe pathology due to elevated diaphragm. -IV N/S, Vancomycin, Zoysn -ID Consult pending (is vanco necessary?) -Blood, urine cx pending, urine Legionella pending -CT Chest/Abd/Pelvis (03/08): Pneumonic infiltrates in R lung base, bladder distension #Potential retention -CT showing bladder distension, but diaper is saturated -check diaper for evidence of output -Abdomen USG ordered for this evening -If evidence of retention on USG, pass qureshi #Hypotension: -monitor BP for rebound hypertension (pt on clonidine) -reduce clonoide from 2x 0.1mg to 1x 0.1 mg if hypertensive #Hypoglycemia -03/07-03/08 59, 76 -Tube feed, DW5 started #DVT prophylaxis -Lovenox 40 mg SQ QDaily #FEN -NS @42 ml/hr -Albumin low 2.8, Ca low 6.9, Protein low 6.8, Cl high 108 -Resume tube feeds Visit type - Emergency Visit Emergency Visit: Yes ED Registration Date: 03/07/19 Care time: The patient presented to the Emergency Department on the above date and was hospitalized for further evaluation of their emergent condition. - New Patient This patient is new to me today: Yes Date on this admission: 03/08/19 - Critical Care Critical Care patient: No - Discharge Referral Referred to [facility] Med [facility].C[facility] No ATTENDING PHYSICIAN STATEMENT I saw and evaluated the patient. I reviewed the resident's note and discussed the case with the resident. I agree with the resident's findings and plan as documented. SUBJECTIVE: OBJECTIVE: ASSESSMENT AND PLAN:
--- NOTE | 2019-03-08 08:33 | EKG ---
Test Reason : Blood Pressure : / mmHG Vent. Rate : 075 BPM Atrial Rate : 075 BPM P-R Int : 164 ms QRS Dur : 096 ms QT Int : 418 ms P-R-T Axes : 035 048 064 degrees QTc Int : 466 ms NORMAL SINUS RHYTHM MINIMAL VOLTAGE CRITERIA FOR LVH, MAY BE NORMAL VARIANT ST ELEVATION, CONSIDER EARLY REPOLARIZATION BORDERLINE ECG WHEN COMPARED WITH ECG OF 29-SEP-2018 21:05, VENT. RATE HAS DECREASED BY [address] ELEVATION NOW PRESENT IN LATERAL LEADS Confirmed by WILBUR PATRICK, FELIZ ([id number]) on 03/08/2019 8:32:44 AM Referred By: Confirmed By:FELIZ BOWLES MD
[2019-03-08] MEDS ORDERED: ALBUTEROL SO4 2.5/IPRATROPIUM 0.5 INH SOL 3 ML VIAL.NEB. NEB PRN (08:36)
[2019-03-08] MEDS ORDERED: diazePAM ACUDIAL 5-7.5-10 MG 1 EACH KIT RC PRN (08:36)
[2019-03-08 09:50] LABS: BASO % 0.3 % (0-2.0); EOS % 0.6 % (0-4.5); HEMATOCRIT 39.5 % (35.4-49); LYMPH % 8.8 % (8-40); MCH 27.1 pg (25.7-33.7); MCHC 32.8 g/dl (32.0-35.9); MEAN CELL VOLUME 82.5 fl (80-96); MEAN PLT VOLUME 7.5 fl (7.5-11.1); MONO % 6.5 % (3.8-10.2); NEUT % 83.8 % (42.8-82.8); PLATELET COUNT 275 K/MM3 (134-434); RBC 4.79 M/mm3 (4.00-5.60); RDW 18.3 % (11.9-15.9); WHITE BLOOD COUNT 9.6 K/mm3 (4.0-10.0)
[2019-03-08] MEDS ORDERED: VANCOMYCIN 1,250 MG in DEXTROSE 5%-WATER - 250 ML IVPB SCH ×2 (10:00→22:00)
[2019-03-08] MEDS ORDERED: PIPERACILLIN/TAZOB 3.375 GM 3.375 GM in DEXTROSE 5%-WATER - 50 ML IVPB SCH ×2 (10:00→22:00)
[2019-03-08] MEDS ORDERED: NYSTATIN 100000 UNIT/GM TOPICAL OINTMENT 15 GM TUBE TP SCH (10:00)
[2019-03-08 10:17] LABS: ALBUMIN 3.3 g/dl (3.4-5.0); BILIRUBIN,TOTAL 0.3 mg/dL (0.2-1); BLOOD UREA NITROGEN 3.9 mg/dL (7-18); CALCIUM 8.5 mg/dL (8.5-10.1); CREATININE 0.4 mg/dL (0.55-1.3); MAGNESIUM 2.4 mg/dL (1.8-2.4); PHOSPHOROUS 3.2 mg/dL (2.5-4.9); TOT PROT 7.7 g/dl (6.4-8.2)
[2019-03-08] MEDS ORDERED: PIPERACILLIN/TAZOBACTAM 3.375 GM VIAL IVPB ONE ×2 (10:52→18:16)
[2019-03-08] MEDS ORDERED: DEXTROSE 5%-WATER - 50 ML IVPB ONE ×2 (10:52→18:16)
[2019-03-08] MEDS ORDERED: PT OWN MED DRAWER 7, Y5N ONE ×4 (10:53→23:06)
[2019-03-08] MEDS: TAMSULOSIN HCL 0.4 MG CAP PO SCH (10:56)
[2019-03-08] MEDS: RANITIDINE HCL 150 MG/10 ML UNIT-DOSE GT SCH ×2 (10:56→23:13)
[2019-03-08] MEDS: levETIRAcetam 500 MG/5 ML ORAL SOLUTION (UNIT-DOSE CUPS) GT SCH (10:56)
[2019-03-08] MEDS: BUDESONIDE 0.5 MG/2 ML INH SUSP VIAL NEB SCH ×2 (10:57→21:14)
[2019-03-08] MEDS: ENOXAPARIN NA (PORCINE) 40 MG/0.4 ML DISP.SYRIN SQ SCH (10:57)
[2019-03-08] MEDS: carBAMazepine 200 MG/10 ML UNIT-DOSE CUP GT SCH ×2 (10:58→23:13)
[2019-03-08] MEDS ORDERED: PIPERACILLIN/TAZOB 3.375 GM 3.375 GM in DEXTROSE 5%-WATER - 50 ML IVPB ONE (11:05)
[2019-03-08] MEDS: ALBUTEROL SO4 2.5/IPRATROPIUM 0.5 INH SOL 3 ML VIAL.NEB. NEB SCH ×3 (11:40→20:22)
[2019-03-08 13:16] VITALS: BMI 24.1
[2019-03-08] MEDS: clonazePAM 2 MG TABLET GT SCH ×2 (13:23→23:10)
[2019-03-08] MEDS: BACLOFEN 10 MG TABLET (FP) PO SCH (13:23)
[2019-03-08] MEDS: CHOLECALCIFEROL (VIT D SOLUTION) 400 UNIT/1 ML DROPS GT SCH (13:24)
[2019-03-08] MEDS: DEXTROSE 5%-NORMAL SALINE 1,000 ML IV SCH (13:24)
[2019-03-08] MEDS ORDERED: MUPIROCIN 2% TOPICAL OINTMENT 22 GM TUBE TP SCH (14:00)
--- NOTE | 2019-03-08 15:09 | PN ---
Teaching Attending Note Name of Resident: Carrie Jones ATTENDING PHYSICIAN STATEMENT I saw and evaluated the patient. I reviewed the resident's note and discussed the case with the resident. I agree with the resident's findings and plan as documented. SUBJECTIVE: unable to obtain ROS. OBJECTIVE: NAD , awake, face mask on CV: RRR Lungs: rales b/l Abd: sfot, PEG in , with green material around insertion site Ext : muscular atrophy of legs , no edema ASSESSMENT AND PLAN: 28 y/o man with h/o MR, cortical blindness, HTN, microcephaly, cerebral palsy, quadriplegia, seizure disorder, scoliosis, hyponatremia, and other medical problems who presented from [place] due to fever and resp distres, he was found to have sepsis and acute hypoxic resp dailure 1- Acute hypoxic resp failure, due to RLL PNA, likley aspiration PNA - cont zosyn . gave extra dose this am , p ending ID approval. - No h/o MRSA but had staph Hominis bacteremia before. ID to decide on need for vanco - supplemental O2 . - nebs 2- Sepsis 2/2 PNA: - Abx as above - follow blood cx sent in ER - consult ID - IVF: change to D5NS due to hypoglycemia - send urine for legionella 3- H/o Seizure: resume all his meds 4- Nutrition : will confirm and resume TF 5- H./o HTN: will confirm his meds and restart clonidine if BP allows Dispo: OC.
[2019-03-08] MEDS ORDERED: TRIAMCINOLONE ACET 0.1% CREAM 15 GM TUBE TP SCH (16:00)
--- NOTE | 2019-03-08 17:15 | CON.ID ---
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, Other (CP/MR) Pulmonary: Yes: Asthma Musculoskeletal: Yes: Other (scoliosis) - Past Surgical History Additional Surgical History: Kong rods, GT - Alcohol/Substance Use Hx Alcohol Use: No History of Substance Use: reports: None - Smoking History Smoking history: Unknown if ever smoked Have you smoked in the past 12 months: No Aproximately how many cigarettes per day: 0 - Social History Usual Living Arrangement: Group Home ADL: Support Services History of Recent Travel: No Home Medications - Allergies Allergies/Adverse Reactions: Allergies Allergy/AdvReac Type Severity Reaction Status Date / Time Beef Containing Products Allergy Unknown Verified 03/07/19 19:08 erythromycin base Allergy Verified 03/07/19 19:08 phenobarbital Allergy Verified 03/07/19 19:08 venom-honey bee Allergy Verified 03/07/19 19:08 [bee venom (honey bee)] - Home Medications Home Medications: Ambulatory Orders Aspirin [ASA -] 81 mg GT HS 03/17/18 Carbamazepine [Tegretol -] 280 mg GT BID 03/17/18 Cholecalciferol (Vitamin D3) [Vitamin D3] 2,000 unit GT DAILY 03/17/18 Omeprazole Magnesium [Prilosec] 20 mg GT DAILY 03/17/18 Tamsulosin HCl [Flomax -] 0.4 mg GT DAILY 03/17/18 cloNIDine HCL [Catapres -] 0.2 mg PO HS 03/17/18 clonazePAM [KlonoPIN -] 1 mg GT TID 03/17/18 Baclofen [Lioresal -] 10 mg PO DAILY@0600,1200 tablet 03/21/18 Budesonide [Pulmicort 0.5 mg Nebulizer -] 1 neb NEB BID 07/12/18 Diazepam [Diastat Acudial] 20 mg RC PRN PRN 07/12/18 Ipratropium/Albuterol Sulfate [Iprat-Albut 0.5-3(2.5) mg/3 ml] 3 ml IH QID PRN 07/12/18 Nystatin Ointment [Mycostatin Ointment -] 1 applic TP BID 07/12/18 Triamcinolone 0.1% Cream [Aristocort 0.1% Cream -] 1 applic TP BID 07/12/18 Scopolamine Hydrobromide [Transderm-Scop -] 1 patch TD Q72H #10 patch.td72 07/18 Mupirocin Ointment [Bactroban 2% Ointment -] 1 applic TP TID 08/11/18 levETIRAcetam [Keppra Oral Solution -] 1,500 mg GT BID cup 10/06/18 Baclofen 20 mg PO 03/08/19 Family Disease History - Family Disease History Family History: Unable to Obtain Review of Systems Unable to obtain ROS, reason: as per NH sheet - Review of Systems Constitutional: reports: No Symptoms Eyes: reports: No Symptoms HENT: reports: No Symptoms Neck: reports: No Symptoms Cardiovascular: reports: Other (tachycardia) Respiratory: reports: SOB Gastrointestinal: denies: Diarrhea, Vomiting Integumentary: denies: Rash Physical Exam Vital Signs: Vital Signs Temperature 98.7 F 03/08/19 14:00 Pulse Rate 111 H 03/08/19 14:00 Respiratory Rate 20 03/08/19 14:00 Blood Pressure 139/65 03/08/19 14:00 O2 Sat by Pulse Oximetry (%) 100 03/08/19 13:01 Constitutional: Yes: No Distress Eyes: Yes: Conjunctiva Clear HENT: Yes: Atraumatic, Other (microcephaly) Cardiovascular: Yes: Regular Rate and Rhythm Respiratory: Yes: Regular, Rhonchi. No: Wheezes Gastrointestinal: Yes: Normal Bowel Sounds, Soft, Other (GT) ...Rectal Exam: Yes: Deferred Edema: No Labs: CBC, BMP 03/08/19 09:13 03/08/19 09:13 Imaging - Results Chest X-ray: Report Reviewed, Image Reviewed Cat Scan: Report Reviewed, Image Reviewed Problem List - Problems (1) Fever Code(s): R50.9 - FEVER, UNSPECIFIED (2) Pneumonia Code(s): J18.9 - PNEUMONIA, UNSPECIFIED ORGANISM (3) Functional quadriplegia Code(s): R53.2 - FUNCTIONAL QUADRIPLEGIA Assessment/Plan continue zosyn alone for aspiration/cap f/u cultures, urinary antigens for legionella and pneumococcus
[2019-03-08] MEDS: BACLOFEN 10 MG TABLET (FP) GT SCH (18:10)
[2019-03-08] MEDS: TRIAMCINOLONE ACET 0.1% CREAM 15 GM TUBE TP SCH ×2 (18:11→23:10)
[2019-03-08] MEDS: PIPERACILLIN/TAZOB 3.375 GM 3.375 GM in DEXTROSE 5%-WATER - 50 ML IVPB SCH (18:21)
[2019-03-08] MEDS ORDERED: cloNIDine HCL 0.1 MG TABLET PO SCH (22:00)
[2019-03-08] MEDS: MUPIROCIN 2% TOPICAL OINTMENT 22 GM TUBE TP SCH (23:09)
[2019-03-08] MEDS: ASPIRIN 81 MG CHEWABLE TABLETS GT SCH (23:11)
[2019-03-08] MEDS: NYSTATIN 100000 UNIT/GM TOPICAL OINTMENT 15 GM TUBE TP SCH (23:12)
[2019-03-09] MEDS: ALBUTEROL SO4 2.5/IPRATROPIUM 0.5 INH SOL 3 ML VIAL.NEB. NEB SCH ×7 (00:10→23:33)
[2019-03-09] MEDS: levETIRAcetam 500 MG/5 ML ORAL SOLUTION (UNIT-DOSE CUPS) GT SCH ×3 (00:34→21:46)
[2019-03-09] MEDS: BACLOFEN 10 MG TABLET (FP) GT SCH ×2 (00:36→20:19)
[2019-03-09] MEDS ORDERED: PIPERACILLIN/TAZOBACTAM 3.375 GM VIAL IVPB ONE ×3 (02:23→17:25)
[2019-03-09] MEDS ORDERED: DEXTROSE 5%-WATER - 50 ML IVPB ONE ×3 (02:23→17:25)
[2019-03-09] MEDS: PIPERACILLIN/TAZOB 3.375 GM 3.375 GM in DEXTROSE 5%-WATER - 50 ML IVPB SCH ×3 (02:30→22:34)
[2019-03-09] MEDS ORDERED: PT OWN MED DRAWER 7, Y5N ONE ×3 (05:56→21:32)
[2019-03-09] MEDS: clonazePAM 2 MG TABLET GT SCH ×3 (06:38→21:47)
[2019-03-09] MEDS: MUPIROCIN 2% TOPICAL OINTMENT 22 GM TUBE TP SCH ×3 (06:38→22:02)
[2019-03-09] MEDS: BACLOFEN 10 MG TABLET (FP) PO SCH ×2 (06:39→12:00)
[2019-03-09 07:28] LABS: HEMATOCRIT 36.2 % (35.4-49); HEMOGLOBIN 12.2 GM/dL (11.7-16.9); MCH 27.6 pg (25.7-33.7); MCHC 33.6 g/dl (32.0-35.9); MEAN CELL VOLUME 82.1 fl (80-96); MEAN PLT VOLUME 8.3 fl (7.5-11.1); PLATELET COUNT 194 K/MM3 (134-434); RBC 4.41 M/mm3 (4.00-5.60); RDW 18.8 % (11.9-15.9); WHITE BLOOD COUNT 8.6 K/mm3 (4.0-10.0)
--- NOTE | 2019-03-09 07:34 | PN ---
Physical Exam: SUBJECTIVE: Patient seen and examined by the bedside. OBJECTIVE: Vital Signs Period Temp Pulse Resp BP Sys/Don Pulse Ox Last 24 Hr 98.6 F-99.4 F 91-111 18-20 109-139/65-78 100-100 GENERAL: The patient is awake, alert, not oriented in time or place HEAD: Microcephalic features present EYES: No ptosis. LUNGS: Breath sounds diminished B/L, no accessory muscle use. HEART: Regular rate and rhythm, S1, S2 without murmur, rub or gallop. ABDOMEN: G Tube seen, soft, nontender, nondistended, normoactive bowel sounds, no guarding, no rebound, no hepatosplenomegaly, no masses. EXTREMITIES: well-perfused, no edema. NEUROLOGICAL: no speech, no gait SKIN: Warm, dry, normal turgor, no rashes or lesions noted, no decubitus ulcers noticed Laboratory Results - last 24 hr 03/08/19 03/08/19 03/08/19 09:13 09:13 09:13 WBC 9.6 RBC 4.79 Hgb 13.0 Hct 39.5 MCV 82.5 MCH 27.1 MCHC 32.8 RDW 18.3 H Plt Count 275 MPV 7.5 Absolute Neuts (auto) 8.1 H Neutrophils % 83.8 H Lymphocytes % 8.8 D Monocytes % 6.5 Eosinophils % 0.6 D Basophils % 0.3 Nucleated RBC % 0 Sodium 138 Potassium 4.0 Chloride 107 Carbon Dioxide 27 Anion Gap 4 L BUN 3.9 L Creatinine 0.4 L Est GFR (CKD-EPI)AfAm 188.66 Est GFR (CKD-EPI)NonAf 162.78 Random Glucose 76 Calcium 8.5 Phosphorus 3.2 Magnesium 2.4 Total Bilirubin 0.3 AST 14 L ALT 31 Alkaline Phosphatase 118 H Total Protein 7.7 Albumin 3.3 L Random Vancomycin 7.6 L Active Medications Generic Name Dose Route Start Last Admin Trade Name Freq PRN Reason Stop Dose Admin Albuterol/Ipratropium 1 amp 03/08/19 12:00 03/09/19 04:00 Duoneb - NEB 1 amp RQ4H ALEKSANDR Administration Albuterol/Ipratropium 1 amp 03/08/19 08:36 Duoneb - NEB QID PRN WHEEZING Aspirin 81 mg 03/08/19 22:00 03/08/19 23:11 Asa - GT 81 mg HS ALEKSANDR Administration Baclofen 10 mg 03/08/19 12:00 03/09/19 06:39 Lioresal - PO 10 mg DAILY@0600,1200 ALEKSANDR Administration Baclofen 20 mg 03/08/19 18:00 03/09/19 00:36 Lioresal - GT 20 mg DAILY@1800,0000 ALEKSANDR Administration Budesonide 1 amp 03/08/19 10:00 03/08/19 21:14 Pulmicort 0.5 Mg Nebulizer - NEB 1 amp BID ALEKSANDR Administration Carbamazepine 280 mg 03/08/19 10:00 03/08/19 23:13 Tegretol Oral Suspension - GT 280 mg BID ALEKSANDR Administration Cholecalciferol 2,000 unit 03/08/19 10:00 03/08/19 13:24 Vitamin D3 Oral Solution - GT 2,000 unit DAILY ALEKSANDR Administration Clonazepam 1 mg 03/08/19 14:00 03/09/19 06:38 Klonopin - GT 1 mg TID ALEKSANDR Administration Diazepam 20 mg 03/08/19 08:36 Diastat Rectal Gel - RC PRN PRN Seizures occuring 5 min + Enoxaparin Sodium 40 mg 03/08/19 10:00 03/08/19 10:57 Lovenox - SQ 40 mg DAILY ALEKSANDR Administration Dextrose/Sodium Chloride 1,000 mls @ 100 mls/hr 03/08/19 11:15 03/08/19 13:24 D5-Ns - IV 100 mls/hr ASDIR ALEKSANDR Administration Piperacillin Sod/Tazobactam 50 mls @ 100 mls/hr 03/08/19 18:00 03/09/19 02:30 Sod 3.375 gm/ Dextrose IVPB 100 mls/hr Q8H-IV ALEKSANDR Administration Protocol Levetiracetam 1,500 mg 03/08/19 10:00 03/09/19 00:34 Keppra Oral Solution - GT 1,500 mg BID ALEKSANDR Administration Mupirocin 1 applic 03/08/19 22:00 03/09/19 06:38 Bactroban 2% Ointment - TP 1 applic TID ALEKSANDR Administration Nystatin 1 applic 03/08/19 15:56 03/08/19 23:12 Mycostatin Ointment - TP 1 applic BID ALEKSANDR Administration Ranitidine HCl 150 mg 03/08/19 11:00 03/08/19 23:13 Zantac Oral Solution - GT 150 mg BID ALEKSANDR Administration Tamsulosin HCl 0.4 mg 03/08/19 10:00 03/08/19 10:56 Flomax - PO 0.4 mg DAILY@0830 ALEKSANDR Administration Triamcinolone Acetonide 1 applic 03/08/19 16:00 03/08/19 23:10 Aristocort 0.1% Cream - TP 1 applic BID ALEKSANDR Administration CBC, BMP 03/09/19 06:40 03/09/19 06:40 Current Medications Albuterol/Ipratropium (Duoneb -) 1 amp NEB RQ4H [facility] Last Admin: 03/09/19 12:06 Dose: 1 amp Albuterol/Ipratropium (Duoneb -) 1 amp NEB QID PRN PRN Reason: WHEEZING Aspirin (Asa -) 81 mg GT HS [facility] Last Admin: 03/08/19 23:11 Dose: 81 mg Baclofen (Lioresal -) 10 mg PO DAILY@0600,1200 [facility] Last Admin: 03/09/19 12:00 Dose: 10 mg Baclofen (Lioresal -) 20 mg GT DAILY@1800,0000 [facility] Last Admin: 03/09/19 00:36 Dose: 20 mg Budesonide (Pulmicort 0.5 Mg Nebulizer -) 1 amp NEB BID [facility] Last Admin: 03/09/19 09:30 Dose: 1 amp Carbamazepine (Tegretol Oral Suspension -) 280 mg GT BID [facility] Last Admin: 03/08/19 23:13 Dose: 280 mg Cholecalciferol (Vitamin D3 Oral Solution -) 2,000 unit GT DAILY [facility] Last Admin: 03/09/19 11:48 Dose: 2,000 unit Clonazepam (Klonopin -) 1 mg GT TID [facility] Last Admin: 03/09/19 06:38 Dose: 1 mg Clonidine (Catapres -) 0.2 mg PO HS ALEKSANDR Diazepam (Diastat Rectal Gel -) 20 mg RC PRN PRN PRN Reason: Seizures occuring 5 min + Enoxaparin Sodium (Lovenox -) 40 mg SQ DAILY [facility] Last Admin: 03/09/19 11:47 Dose: 40 mg Dextrose/Sodium Chloride (D5-Ns -) 1,000 mls @ 100 mls/hr IV ASDIR [facility] Last Admin: 03/08/19 13:24 Dose: 100 mls/hr Piperacillin Sod/Tazobactam (Sod 3.375 gm/ Dextrose) 50 mls @ 100 mls/hr IVPB Q8H-IV ALEKSANDR; Protocol Last Admin: 03/09/19 11:47 Dose: 100 mls/hr Levetiracetam (Keppra Oral Solution -) 1,500 mg GT BID [facility] Last Admin: 03/09/19 00:34 Dose: 1,500 mg Mupirocin (Bactroban 2% Ointment -) 1 applic TP TID [facility] Last Admin: 03/09/19 06:38 Dose: 1 applic Nystatin (Mycostatin Ointment -) 1 applic TP BID [facility] Last Admin: 03/08/19 23:12 Dose: 1 applic Ranitidine HCl (Zantac Oral Solution -) 150 mg GT BID [facility] Last Admin: 03/09/19 11:46 Dose: 150 mg Tamsulosin HCl (Flomax -) 0.4 mg PO DAILY@0830 [facility] Last Admin: 03/09/19 12:30 Dose: Not Given Triamcinolone Acetonide (Aristocort 0.1% Cream -) 1 applic TP BID [facility] Last Admin: 03/08/19 23:10 Dose: 1 applic ASSESSMENT/PLAN: 28 M with PMH of intellectual disability and cerebral palsy with spastic quadraparesis who presents from his nursing facility with likely aspiration pneumonia. #Sepsis/Aspiration Pneumonia: -CT Chest/Abd/Pelvis (03/08): Pneumonic infiltrates in R lung base, R renal hydronephrosis and bladder distension -Blood cx prelim report no growth after 4 days; urine cx, urine Legionella & Strep P antigen NEGATIVE -IV Zoysn (03/08) (previously on Vanco as well) -Hx of Staph Hominis, ID consult pending for Zosyn stronger dose & Vanco -CXR(03/07): right diaphragm is elevated, scoliosis hardware visible, right hilar infiltrates. Difficult to appreciate any right lower lobe pathology due to elevated diaphragm. #Potential retention -CT showing bladder distension, qureshi inserted ) -Output 400ml (03/08) 60ml from midnight to 8AM #Hypotension: -monitor BP (03/07) 98/58 (03/08) 1PM 109/65 2PM 139/65 6PM 129/78 10PM 118/75 (03/09) 7AM 140/69 -Clonoide 0.2mg HS #Hypoglycemia -03/07-03/09 59, 76, 89 -Tube feed, DW5 started (03/08) #Hx of seizure -resumed seizure home meds (03/08) #DVT prophylaxis -PT with INR high 15.30 -INR high 1.29 -Lovenox 40 mg SQ QDaily #FEN -D5N/S 100ml/h -Albumin low 2.8, 3.3, 3.1, Ca low 6.9, 8.5n, low8.2 Protein low 6.3, 7.7n, 7.5n , Cl high 108 -Resumed tube feeds (03/08) Visit type - Emergency Visit Emergency Visit: Yes ED Registration Date: 03/07/19 Care time: The patient presented to the Emergency Department on the above date and was hospitalized for further evaluation of their emergent condition. - New Patient This patient is new to me today: No - Critical Care Critical Care patient: No - Discharge Referral Referred to [facility] Med P.C.: No ATTENDING PHYSICIAN STATEMENT I saw and evaluated the patient. I reviewed the resident's note and discussed the case with the resident. I agree with the resident's findings and plan as documented. SUBJECTIVE: OBJECTIVE: ASSESSMENT AND PLAN:
[2019-03-09 08:10] LABS: ALBUMIN 3.1 g/dl (3.4-5.0); BILIRUBIN,TOTAL 0.4 mg/dL (0.2-1); BLOOD UREA NITROGEN 3.4 mg/dL (7-18); CALCIUM 8.2 mg/dL (8.5-10.1); CREATININE 0.4 mg/dL (0.55-1.3); POTASSIUM 3.8 mmol/L (3.5-5.1); TOT PROT 7.5 g/dl (6.4-8.2)
[2019-03-09] MEDS: BUDESONIDE 0.5 MG/2 ML INH SUSP VIAL NEB SCH ×2 (09:30→21:17)
[2019-03-09] MEDS: DEXTROSE 5%-NORMAL SALINE 1,000 ML IV SCH (11:15)
[2019-03-09] MEDS: RANITIDINE HCL 150 MG/10 ML UNIT-DOSE GT SCH ×2 (11:46→21:46)
[2019-03-09] MEDS: ENOXAPARIN NA (PORCINE) 40 MG/0.4 ML DISP.SYRIN SQ SCH (11:47)
[2019-03-09] MEDS: CHOLECALCIFEROL (VIT D SOLUTION) 400 UNIT/1 ML DROPS GT SCH (11:48)
[2019-03-09] MEDS: TAMSULOSIN HCL 0.4 MG CAP PO SCH (12:30)
--- NOTE | 2019-03-09 14:34 | PN ---
Teaching Attending Note Name of Resident: Tony Brady ATTENDING PHYSICIAN STATEMENT I saw and evaluated the patient. I reviewed the resident's note and discussed the case with the resident. I agree with the resident's findings and plan as documented. SUBJECTIVE: No events over night. increased secretions per RN. OBJECTIVE: NAD, awake CV: RRR Lungs: rales b/l Abd: soft, PEG in , with dry green material around insertion site Ext : muscular atrophy of legs, no edema ASSESSMENT AND PLAN: 28 y/o man with h/o MR, cortical blindness, HTN, microcephaly, cerebral palsy, quadriplegia, seizure disorder, scoliosis, hyponatremia, and other medical problems who presented from [place] due to fever and resp distres, he was found to have sepsis and acute hypoxic resp dailure 1- Acute hypoxic resp failure, due to RLL PNA, likely aspiration PNA. - cont zosyn day 2. - supplemental O2. - nebs 2- Sepsis 2/2 PNA: - Abx as above - follow blood cx - legionella neg - IVF: will dc if no longer hypoglycemic. if still , can decrease dose 3- H/o Seizure: cont meds 4- Nutrition :TF 5- H/o HTN: resume clonidine Dispo: HLOC.
[2019-03-09] MEDS: TRIAMCINOLONE ACET 0.1% CREAM 15 GM TUBE TP SCH ×2 (15:38→22:25)
[2019-03-09] MEDS: NYSTATIN 100000 UNIT/GM TOPICAL OINTMENT 15 GM TUBE TP SCH ×2 (15:39→22:30)
[2019-03-09] MEDS: carBAMazepine 200 MG/10 ML UNIT-DOSE CUP GT SCH ×2 (15:42→21:47)
[2019-03-09] MEDS: cloNIDine HCL 0.1 MG TABLET PO SCH (21:46)
[2019-03-09] MEDS: ASPIRIN 81 MG CHEWABLE TABLETS GT SCH (21:46)
[2019-03-10] MEDS: BACLOFEN 10 MG TABLET (FP) GT SCH ×2 (00:25→18:53)
[2019-03-10] MEDS ORDERED: PIPERACILLIN/TAZOBACTAM 3.375 GM VIAL IVPB ONE ×3 (04:23→18:48)
[2019-03-10] MEDS ORDERED: DEXTROSE 5%-WATER - 50 ML IVPB ONE ×3 (04:24→18:48)
[2019-03-10] MEDS: PIPERACILLIN/TAZOB 3.375 GM 3.375 GM in DEXTROSE 5%-WATER - 50 ML IVPB SCH ×3 (04:30→18:53)
[2019-03-10] MEDS: ALBUTEROL SO4 2.5/IPRATROPIUM 0.5 INH SOL 3 ML VIAL.NEB. NEB SCH ×5 (04:45→21:03)
[2019-03-10] MEDS: clonazePAM 2 MG TABLET GT SCH ×2 (06:27→14:43)
[2019-03-10] MEDS: BACLOFEN 10 MG TABLET (FP) PO SCH ×2 (06:27→12:08)
[2019-03-10] MEDS: MUPIROCIN 2% TOPICAL OINTMENT 22 GM TUBE TP SCH ×2 (06:31→14:43)
[2019-03-10] MEDS: BUDESONIDE 0.5 MG/2 ML INH SUSP VIAL NEB SCH ×2 (07:25→21:12)
[2019-03-10 07:46] LABS: HEMATOCRIT 33.9 % (35.4-49); HEMOGLOBIN 11.4 GM/dL (11.7-16.9); MCH 27.6 pg (25.7-33.7); MCHC 33.5 g/dl (32.0-35.9); MEAN CELL VOLUME 82.3 fl (80-96); MEAN PLT VOLUME 7.7 fl (7.5-11.1); PLATELET COUNT 253 K/MM3 (134-434); RBC 4.12 M/mm3 (4.00-5.60); WHITE BLOOD COUNT 6.9 K/mm3 (4.0-10.0)
--- NOTE | 2019-03-10 08:24 | PN ---
Physical Exam: SUBJECTIVE: Patient seen and examined OBJECTIVE: Vital Signs Period Temp Pulse Resp BP Sys/Don Pulse Ox Last 24 Hr 97.9 F-98.8 F 63-100 18-20 109-136/52-86 97-97 GENERAL: The patient is awake, alert, not oriented in time or place HEAD: Microcephalic features present EYES: No ptosis. LUNGS: Breath sounds diminished B/L, no accessory muscle use. HEART: Regular rate and rhythm, S1, S2 without murmur, rub or gallop. ABDOMEN: G Tube seen, soft, nontender, nondistended, normoactive bowel sounds, no guarding, no rebound, no hepatosplenomegaly, no masses. EXTREMITIES: well-perfused, no edema. NEUROLOGICAL: no speech, no gait SKIN: Warm, dry, normal turgor, no rashes or lesions noted, no decubitus ulcers noticed Laboratory Results - last 24 hr 03/09/19 03/09/19 03/09/19 06:40 06:40 15:23 WBC 8.6 RBC 4.41 Hgb 12.2 Hct 36.2 MCV 82.1 MCH 27.6 MCHC 33.6 RDW 18.8 H Plt Count 194 D MPV 8.3 D Sodium 139 Potassium 3.8 Chloride 108 H Carbon Dioxide 24 Anion Gap 7 L BUN 3.4 L Creatinine 0.4 L Est GFR (CKD-EPI)AfAm 188.66 Est GFR (CKD-EPI)NonAf 162.78 POC Glucometer 112 Random Glucose 89 Calcium 8.2 L Total Bilirubin 0.4 AST 12 L ALT 28 Alkaline Phosphatase 113 Total Protein 7.5 Albumin 3.1 L Active Medications Generic Name Dose Route Start Last Admin Trade Name Freq PRN Reason Stop Dose Admin Albuterol/Ipratropium 1 amp 03/08/19 12:00 03/10/19 04:45 Duoneb - NEB 1 amp RQ4H ALEKSANDR Administration Albuterol/Ipratropium 1 amp 03/08/19 08:36 Duoneb - NEB QID PRN WHEEZING Aspirin 81 mg 03/08/19 22:00 03/09/19 21:46 Asa - GT 81 mg HS ALEKSANDR Administration Baclofen 10 mg 03/08/19 12:00 03/10/19 06:27 Lioresal - PO 10 mg DAILY@0600,1200 ALEKSANDR Administration Baclofen 20 mg 03/08/19 18:00 03/10/19 00:25 Lioresal - GT 20 mg DAILY@1800,0000 ALEKSANDR Administration Budesonide 1 amp 03/08/19 10:00 03/09/19 21:17 Pulmicort 0.5 Mg Nebulizer - NEB 1 amp BID ALEKSANDR Administration Carbamazepine 280 mg 03/08/19 10:00 03/09/19 21:47 Tegretol Oral Suspension - GT 280 mg BID ALEKSANDR Administration Cholecalciferol 2,000 unit 03/08/19 10:00 03/09/19 11:48 Vitamin D3 Oral Solution - GT 2,000 unit DAILY ALEKSANDR Administration Clonazepam 1 mg 03/08/19 14:00 03/10/19 06:27 Klonopin - GT 1 mg TID ALEKSANDR Administration Clonidine 0.2 mg 03/09/19 22:00 03/09/19 21:46 Catapres - PO 0.2 mg HS ALEKSANDR Administration Diazepam 20 mg 03/08/19 08:36 Diastat Rectal Gel - RC PRN PRN Seizures occuring 5 min + Enoxaparin Sodium 40 mg 03/08/19 10:00 03/09/19 11:47 Lovenox - SQ 40 mg DAILY ALEKSANDR Administration Piperacillin Sod/Tazobactam 50 mls @ 100 mls/hr 03/08/19 18:00 03/10/19 04:30 Sod 3.375 gm/ Dextrose IVPB 100 mls/hr Q8H-IV ALEKSANDR Administration Protocol Levetiracetam 1,500 mg 03/08/19 10:00 03/09/19 21:46 Keppra Oral Solution - GT 1,500 mg BID ALEKSANDR Administration Mupirocin 1 applic 03/08/19 22:00 03/10/19 06:31 Bactroban 2% Ointment - TP 1 applic TID ALEKSANDR Administration Nystatin 1 applic 03/08/19 15:56 03/09/19 22:30 Mycostatin Ointment - TP 1 applic BID ALEKSANDR Administration Ranitidine HCl 150 mg 03/08/19 11:00 03/09/19 21:46 Zantac Oral Solution - GT 150 mg BID ALEKSANDR Administration Tamsulosin HCl 0.4 mg 03/08/19 10:00 03/09/19 12:30 Flomax - PO Not Given DAILY@0830 [facility] Triamcinolone Acetonide 1 applic 03/08/19 16:00 03/09/19 22:25 Aristocort 0.1% Cream - TP 1 applic BID [facility] Administration Current Medications Albuterol/Ipratropium (Duoneb -) 1 amp NEB RQ4H [facility] Last Admin: 03/10/19 11:09 Dose: 1 amp Albuterol/Ipratropium (Duoneb -) 1 amp NEB QID PRN PRN Reason: WHEEZING Aspirin (Asa -) 81 mg GT HS [facility] Last Admin: 03/09/19 21:46 Dose: 81 mg Baclofen (Lioresal -) 10 mg PO DAILY@0600,1200 [facility] Last Admin: 03/10/19 12:08 Dose: 10 mg Baclofen (Lioresal -) 20 mg GT DAILY@1800,0000 [facility] Last Admin: 03/10/19 00:25 Dose: 20 mg Budesonide (Pulmicort 0.5 Mg Nebulizer -) 1 amp NEB BID [facility] Last Admin: 03/10/19 07:25 Dose: 1 amp Carbamazepine (Tegretol Oral Suspension) 280 mg GT BID [facility] Cholecalciferol (Vitamin D3 Oral Solution -) 2,000 unit GT DAILY [facility] Last Admin: 03/10/19 10:48 Dose: 2,000 unit Clonazepam (Klonopin -) 1 mg GT TID [facility] Last Admin: 03/10/19 06:27 Dose: 1 mg Clonidine (Catapres -) 0.2 mg PO HS [facility] Last Admin: 03/09/19 21:46 Dose: 0.2 mg Diazepam (Diastat Rectal Gel -) 20 mg RC PRN PRN PRN Reason: Seizures occuring 5 min + Enoxaparin Sodium (Lovenox -) 40 mg SQ DAILY [facility] Last Admin: 03/10/19 12:03 Dose: 40 mg Piperacillin Sod/Tazobactam (Sod 3.375 gm/ Dextrose) 50 mls @ 100 mls/hr IVPB Q8H-IV [facility]; Protocol Last Admin: 03/10/19 10:48 Dose: 100 mls/hr Levetiracetam (Keppra Oral Solution -) 1,500 mg GT BID [facility] Last Admin: 03/10/19 11:53 Dose: 1,500 mg Mupirocin (Bactroban 2% Ointment -) 1 applic TP TID [facility] Last Admin: 03/10/19 06:31 Dose: 1 applic Nystatin (Mycostatin Ointment -) 1 applic TP BID [facility] Last Admin: 03/10/19 12:02 Dose: 1 applic Ranitidine HCl (Zantac Oral Solution -) 150 mg GT BID [facility] Last Admin: 03/10/19 10:48 Dose: 150 mg Tamsulosin HCl (Flomax -) 0.4 mg PO DAILY@0830 [facility] Last Admin: 03/10/19 10:52 Dose: Not Given Triamcinolone Acetonide (Aristocort 0.1% Cream -) 1 applic TP BID [facility] Last Admin: 03/10/19 12:01 Dose: 1 applic ASSESSMENT/PLAN: 28 M with PMH of intellectual disability and cerebral palsy with spastic quadraparesis who presents from his nursing facility with likely aspiration pneumonia. #Sepsis/Aspiration Pneumonia: -ID Consult: Rec switching to Augmentin PO and complete 7 days, IV Zoysn 4th day (03/08) (previously on Vanco as well) -CT Chest/Abd/Pelvis (03/08): Pneumonic infiltrates in R lung base, R renal hydronephrosis and bladder distension -Blood cx prelim report no growth after 4 days; urine cx, urine Legionella & Strep P antigen NEGATIVE -Hx of Staph Hominis, ID consult pending for Zosyn stronger dose & Vanco -CXR(03/07): right diaphragm is elevated, scoliosis hardware visible, right hilar infiltrates. Difficult to appreciate any right lower lobe pathology due to elevated diaphragm. #Potential retention -750ml output today -Werner D/C #Hypotension: -monitor BP (03/09) 140/69, 138/68, 131/71, 122/52 (03/10) 109/52 -Clonoide 0.2mg HS #Hypoglycemia -03/07-03/09 59, 76, 89 -Tube feed, DW5 started (03/08) #Hx of seizure -resumed seizure home meds (03/08) #DVT prophylaxis -PT with INR high 15.30 -INR high 1.29 -Lovenox 40 mg SQ QDaily #FEN -D5N/S 100ml/h -Albumin low 2.8, 3.3, 3.1, Ca low 6.9, 8.5n, low8.2 Protein low 6.3, 7.7n, 7.5n , Cl high 108 -Resumed tube feeds (03/08) Visit type - Emergency Visit Emergency Visit: Yes ED Registration Date: 03/07/19 Care time: The patient presented to the Emergency Department on the above date and was hospitalized for further evaluation of their emergent condition. - New Patient This patient is new to me today: No - Critical Care Critical Care patient: No - Discharge Referral Referred to [facility] Med P.C.: No ATTENDING PHYSICIAN STATEMENT I saw and evaluated the patient. I reviewed the resident's note and discussed the case with the resident. I agree with the resident's findings and plan as documented. SUBJECTIVE: OBJECTIVE: ASSESSMENT AND PLAN:
[2019-03-10 08:31] LABS: BILIRUBIN,TOTAL 0.3 mg/dL (0.2-1); BLOOD UREA NITROGEN 6.6 mg/dL (7-18); CALCIUM 8.1 mg/dL (8.5-10.1); CREATININE 0.5 mg/dL (0.55-1.3); POTASSIUM 3.4 mmol/L (3.5-5.1); TOT PROT 7.2 g/dl (6.4-8.2)
[2019-03-10] MEDS ORDERED: PT OWN MED DRAWER 7, Y5N ONE ×2 (10:39→22:29)
[2019-03-10] MEDS: RANITIDINE HCL 150 MG/10 ML UNIT-DOSE GT SCH (10:48)
[2019-03-10] MEDS: CHOLECALCIFEROL (VIT D SOLUTION) 400 UNIT/1 ML DROPS GT SCH (10:48)
[2019-03-10] MEDS: TAMSULOSIN HCL 0.4 MG CAP PO SCH (10:52)
[2019-03-10] MEDS ORDERED: POTASSIUM CHLORIDE ORAL LIQUID 20 MEQ/15 ML PO ONE (11:20)
[2019-03-10] MEDS: levETIRAcetam 500 MG/5 ML ORAL SOLUTION (UNIT-DOSE CUPS) GT SCH (11:53)
[2019-03-10] MEDS: carBAMazepine 200 MG/10 ML UNIT-DOSE CUP GT SCH (11:54)
[2019-03-10] MEDS: TRIAMCINOLONE ACET 0.1% CREAM 15 GM TUBE TP SCH (12:01)
[2019-03-10] MEDS: NYSTATIN 100000 UNIT/GM TOPICAL OINTMENT 15 GM TUBE TP SCH (12:02)
[2019-03-10] MEDS: ENOXAPARIN NA (PORCINE) 40 MG/0.4 ML DISP.SYRIN SQ SCH (12:03)
--- NOTE | 2019-03-10 14:38 | PN ---
Teaching Attending Note Name of Resident: Tony Brady ATTENDING PHYSICIAN STATEMENT I saw and evaluated the patient. I reviewed the resident's note and discussed the case with the resident. I agree with the resident's findings and plan as documented. SUBJECTIVE: No events over night OBJECTIVE: NAD, awake CV: RRR Lungs: rales b/l Abd: soft, PEG in , NL BS , ND Ext: muscular atrophy of legs, no edema ASSESSMENT AND PLAN: 28 y/o man with h/o MR, cortical blindness, HTN, microcephaly, cerebral palsy, quadriplegia, seizure disorder, scoliosis, hyponatremia, and other medical problems who presented from [place] due to fever and resp distres, he was found to have sepsis and acute hypoxic resp dailure 1- Acute hypoxic resp failure, due to RLL PNA, likely aspiration PNA. - cont zosyn day 3. - supplemental O2. - nebs 2- Sepsis 2/2 PNA: - Abx as above - follow blood cx - dc ivf 3- H/o Seizure: cont meds 4- Urinary retention : dc qureshi. voiding trial 5- H/o HTN: clonidine 6- nutrition: adjust TF per dietitian recommendation Dispo: HLOC.
--- NOTE | 2019-03-10 14:53 | PN ---
Progress Note (short form) - Note Progress Note: day #3 zosyn doing well NAD looks comfortable Vital Signs Period Temp Pulse Resp BP Sys/Don Pulse Ox Last 24 Hr 97.9 F-98.0 F 63-79 18-18 102-122/50-52 97-98 cor-rrr lungs scattered rhonchi abd soft,nt ext no edema qureshi out- CBC, BMP 03/10/19 06:45 03/10/19 06:45 Microbiology 03/07/19 20:00 Blood - Peripheral Venous Blood Culture - Preliminary NO GROWTH OBTAINED AFTER 48 HOURS, INCUBATION TO CONTINUE FOR 3 DAYS. 03/07/19 20:00 Blood - Peripheral Venous Blood Culture - Preliminary NO GROWTH OBTAINED AFTER 48 HOURS, INCUBATION TO CONTINUE FOR 3 DAYS. 03/09/19 07:45 Urine For Antigen Detection Legionella Antigen - Final 03/09/19 07:45 Urine For Antigen Detection Streptococcus pneumoniae Antigen (M - Final 03/07/19 20:28 Urine - Urine - Catheterized Urine Culture - Final NO GROWTH OBTAINED a/p pneumonia doing well on zosyn day #3 can switch to augmentin via gt and finish total 7 days
[2019-03-11] MEDS: ALBUTEROL SO4 2.5/IPRATROPIUM 0.5 INH SOL 3 ML VIAL.NEB. NEB SCH ×6 (00:30→20:34)
[2019-03-11] MEDS: RANITIDINE HCL 150 MG/10 ML UNIT-DOSE GT SCH ×3 (00:39→23:33)
[2019-03-11] MEDS: ASPIRIN 81 MG CHEWABLE TABLETS GT SCH ×2 (00:39→23:34)
[2019-03-11] MEDS: carBAMazepine 100 MG/5 ML UNIT-DOSE CUP GT SCH ×3 (00:39→23:49)
[2019-03-11] MEDS: cloNIDine HCL 0.1 MG TABLET PO SCH (00:39)
[2019-03-11] MEDS: levETIRAcetam 500 MG/5 ML ORAL SOLUTION (UNIT-DOSE CUPS) GT SCH ×3 (00:39→23:36)
[2019-03-11] MEDS: clonazePAM 2 MG TABLET GT SCH ×4 (00:40→23:34)
[2019-03-11] MEDS: MUPIROCIN 2% TOPICAL OINTMENT 22 GM TUBE TP SCH ×4 (00:42→23:45)
[2019-03-11] MEDS: TRIAMCINOLONE ACET 0.1% CREAM 15 GM TUBE TP SCH ×3 (00:42→23:35)
[2019-03-11] MEDS ORDERED: PIPERACILLIN/TAZOBACTAM 3.375 GM VIAL IVPB ONE ×2 (01:02→16:34)
[2019-03-11] MEDS ORDERED: DEXTROSE 5%-WATER - 50 ML IVPB ONE (01:03)
[2019-03-11] MEDS: BACLOFEN 10 MG TABLET (FP) GT SCH ×2 (01:11→17:08)
[2019-03-11] MEDS: NYSTATIN 100000 UNIT/GM TOPICAL OINTMENT 15 GM TUBE TP SCH ×3 (01:12→23:35)
[2019-03-11] MEDS: PIPERACILLIN/TAZOB 3.375 GM 3.375 GM in DEXTROSE 5%-WATER - 50 ML IVPB SCH (01:44)
[2019-03-11] MEDS: BACLOFEN 10 MG TABLET (FP) PO SCH ×2 (07:00→12:30)
[2019-03-11] MEDS ORDERED: AMOX TR/POT CLAV 875MG/125MG TABLETS (FP) PO SCH (08:00)
[2019-03-11 08:14] LABS: ALBUMIN 3.2 g/dl (3.4-5.0); BILIRUBIN,TOTAL 0.3 mg/dL (0.2-1); BLOOD UREA NITROGEN 8.1 mg/dL (7-18); CALCIUM 8.4 mg/dL (8.5-10.1); CREATININE 0.6 mg/dL (0.55-1.3); HEMATOCRIT 34.2 % (35.4-49); HEMOGLOBIN 11.5 GM/dL (11.7-16.9); MCH 27.8 pg (25.7-33.7); MCHC 33.5 g/dl (32.0-35.9); MEAN CELL VOLUME 83.1 fl (80-96); MEAN PLT VOLUME 7.5 fl (7.5-11.1); POTASSIUM 3.8 mmol/L (3.5-5.1); RBC 4.12 M/mm3 (4.00-5.60); RDW 18.5 % (11.9-15.9); TOT PROT 7.6 g/dl (6.4-8.2); WHITE BLOOD COUNT 5.3 K/mm3 (4.0-10.0)
[2019-03-11 09:10] LABS: PLATELET COUNT 267 K/MM3 (134-434)
[2019-03-11] MEDS ORDERED: SODIUM CHLORIDE 1,000 ML IV SCH (10:15)
[2019-03-11] MEDS ORDERED: SODIUM CHLORIDE 250 ML IV STA ×2 (10:19→12:04)
[2019-03-11] MEDS: BUDESONIDE 0.5 MG/2 ML INH SUSP VIAL NEB SCH ×2 (10:40→22:56)
[2019-03-11] MEDS: TAMSULOSIN HCL 0.4 MG CAP PO SCH (10:50)
[2019-03-11] MEDS: ENOXAPARIN NA (PORCINE) 40 MG/0.4 ML DISP.SYRIN SQ SCH (10:50)
[2019-03-11] MEDS: CHOLECALCIFEROL (VIT D SOLUTION) 400 UNIT/1 ML DROPS GT SCH (10:51)
--- NOTE | 2019-03-11 12:41 | PN ---
Teaching Attending Note Name of Resident: Marah Hunt ATTENDING PHYSICIAN STATEMENT I saw and evaluated the patient. I reviewed the resident's note and discussed the case with the resident. I agree with the resident's findings and plan as documented. SUBJECTIVE: No events over night. now hypotensive but looks comfortable OBJECTIVE: NAD, awake, NC on CV: RRR Lungs: rales b/l Abd: soft, PEG in. NL BS , ND Ext: muscular atrophy of legs, no edema ASSESSMENT AND PLAN: 28 y/o man with h/o MR, cortical blindness, HTN, microcephaly, cerebral palsy, quadriplegia, seizure disorder, scoliosis, hyponatremia, and other medical problems who presented from [place] due to fever and resp distres, he was found to have sepsis and acute hypoxic resp dailure 1- Acute hypoxic resp failure, due to RLL PNA, likely aspiration PNA. - Switch to Augmentin. appreciate Id Recs - Supplemental O2. - Nebs 2- Hypotension; unclear etiology, might be hypovolemia while on clonidine. Doubt sepsis as Abx worked - give NS bolus then IVF - reculture blood - repeat Cxray. - dc clonidine 3- Aspiration PNA: - Augmentin - follow blood cx 4- H/o Seizure: cont meds. 5- Urinary retention : voiding after qureshi removal 5- H/o HTN: dc clonidine for now 6- nutrition:TF Dispo: HLOC.
[2019-03-11] MEDS ORDERED: SODIUM CHLORIDE 500 ML IV STA (14:38)
--- NOTE | 2019-03-11 14:40 | HOSP ---
Subjective - Review of Symptoms Events since last encounter: saw patient again. BP 69/50. sleeping, calm and comfortable. dry MM lungs still sound clear anteriorly ext: no edema . hyper pigmentation of L leg a/p Hypotension is from possible volume depletion in addition to being on clonidine. Unlikely septic again. No increase in O2 requirements. - give bolus of 500 and increase maintenance fluids - dc TF - check US of both LE. - transfer to [facility] . - place back on [facility] for now. Physical Examination Vital Signs: Vital Signs Temperature 96.7 F L 03/11/19 09:00 Pulse Rate 52 L 03/11/19 14:25 Respiratory Rate 18 03/11/19 09:00 Blood Pressure 69/36 L 03/11/19 14:25 O2 Sat by Pulse Oximetry (%) 98 03/10/19 21:00 Labs: CBC, BMP 03/11/19 07:30 03/11/19 07:30
--- NOTE | 2019-03-11 16:02 | EKG ---
Test Reason : Blood Pressure : / mmHG Vent. Rate : 054 BPM Atrial Rate : 054 BPM P-R Int : 150 ms QRS Dur : 086 ms QT Int : 458 ms P-R-T Axes : 013 041 076 degrees QTc Int : 434 ms SINUS BRADYCARDIA WITH MARKED SINUS ARRHYTHMIA INFERIOR-POSTERIOR INFARCT , AGE UNDETERMINED MARKED ST ABNORMALITY, POSSIBLE ANTERIOR SUBENDOCARDIAL INJURY MARKED ST ABNORMALITY, POSSIBLE INFEROLATERAL SUBENDOCARDIAL INJURY ABNORMAL ECG Confirmed by FELIZ BOWLES MD ([id number]) on 03/11/2019 4:02:03 PM Referred By: Deanne BROUSSARD Confirmed By:FELIZ BOWLES MD
[2019-03-11] MEDS ORDERED: SODIUM CHLORIDE 50 ML IVPB ONE (16:34)
[2019-03-11] MEDS: SODIUM CHLORIDE 1,000 ML IV SCH (16:45)
[2019-03-11] MEDS: PIPERACILLIN/TAZOB 3.375 GM 3.375 GM in SODIUM CHLORIDE 50 ML IVPB SCH (17:09)
[2019-03-11] MEDS ORDERED: PIPERACILLIN/TAZOB 3.375 GM 3.375 GM in DEXTROSE 5%-WATER - 50 ML IVPB SCH (18:00)
--- NOTE | 2019-03-11 18:02 | PN ---
Physical Exam: SUBJECTIVE: Patient seen and examined at bedside this morning. No acute events overnight. Patient noted to be hypotensive this morning. Fluid boluses given. No fevers, chills, SOB, diarrhea, urinary symptoms. OBJECTIVE: Vital Signs Temperature 97.1 F L 03/11/19 16:28 Pulse Rate 83 03/11/19 16:28 Respiratory Rate 16 03/11/19 14:42 Blood Pressure 119/98 03/11/19 16:28 O2 Sat by Pulse Oximetry (%) 98 03/11/19 09:00 GENERAL: The patient is sleeping comfortably, in no acute distress. HEAD: Normal with no signs of trauma. NECK: supple. LUNGS: Breath sounds equal, clear to auscultation anteriorly HEART: Regular rate and rhythm, S1, S2 without murmur, rub or gallop. ABDOMEN: Soft, normoactive bowel sounds. PEG tube in place. EXTREMITIES: 2+ pulses, warm, well-perfused, no edema. B/L UE contracted. SKIN: Warm, dry, normal turgor, no rashes or lesions noted Laboratory Results - last 24 hr 03/11/19 03/11/19 03/11/19 07:30 07:30 16:26 WBC 5.3 RBC 4.12 Hgb 11.5 L Hct 34.2 L MCV 83.1 MCH 27.8 MCHC 33.5 RDW 18.5 H Plt Count 267 MPV 7.5 Sodium 136 Potassium 3.8 Chloride 104 Carbon Dioxide 26 Anion Gap 7 L BUN 8.1 Creatinine 0.6 Est GFR (CKD-EPI)AfAm 159.70 Est GFR (CKD-EPI)NonAf 137.79 Random Glucose 101 Calcium 8.4 L Total Bilirubin 0.3 AST 11 L ALT 27 Alkaline Phosphatase 98 Creatine Kinase 314 H Creatine Kinase Index 1.4 CK-MB (CK-2) 4.7 H Troponin I < 0.02 Total Protein 7.6 Albumin 3.2 L Active Medications Generic Name Dose Route Start Last Admin Trade Name Freq PRN Reason Stop Dose Admin Albuterol/Ipratropium 1 amp 03/08/19 12:00 03/11/19 16:14 Duoneb - NEB 1 amp RQ4H ALEKSANDR Administration Albuterol/Ipratropium 1 amp 03/08/19 08:36 Duoneb - NEB QID PRN WHEEZING Aspirin 81 mg 03/08/19 22:00 03/11/19 00:39 Asa - GT 81 mg HS ALEKSANDR Administration Baclofen 10 mg 03/08/19 12:00 03/11/19 12:30 Lioresal - PO 10 mg DAILY@0600,1200 ALEKSANDR Administration Baclofen 20 mg 03/08/19 18:00 03/11/19 17:08 Lioresal - GT 20 mg DAILY@1800,0000 ALEKSANDR Administration Budesonide 1 amp 03/08/19 10:00 03/11/19 10:40 Pulmicort 0.5 Mg Nebulizer - NEB 1 amp BID ALEKSANDR Administration Carbamazepine 280 mg 03/10/19 11:35 03/11/19 10:51 Tegretol Oral Suspension GT 280 mg BID ALEKSANDR Administration Cholecalciferol 2,000 unit 03/08/19 10:00 03/11/19 10:51 Vitamin D3 Oral Solution - GT 2,000 unit DAILY ALEKSANDR Administration Clonazepam 1 mg 03/08/19 14:00 03/11/19 15:02 Klonopin - GT 1 mg TID ALEKSANDR Administration Enoxaparin Sodium 40 mg 03/08/19 10:00 03/11/19 10:50 Lovenox - SQ 40 mg DAILY ALEKSANDR Administration Sodium Chloride 1,000 mls @ 100 mls/hr 03/11/19 14:38 03/11/19 16:45 Normal Saline - IV 100 mls/hr ASDIR ALEKSANDR Administration Piperacillin Sod/Tazobactam 50 mls @ 100 mls/hr 03/11/19 18:00 Sod 3.375 gm/ Dextrose IVPB Q8H-IV ALEKSANDR Protocol Piperacillin Sod/Tazobactam 50 mls @ 100 mls/hr 03/11/19 18:00 03/11/19 17:09 Sod 3.375 gm/ Sodium Chloride IVPB 03/12/19 10:29 100 mls/hr Q8H-IV ALEKSANDR Administration Levetiracetam 1,500 mg 03/08/19 10:00 03/11/19 10:49 Keppra Oral Solution - GT 1,500 mg BID ALEKSANDR Administration Mupirocin 1 applic 03/08/19 22:00 03/11/19 17:02 Bactroban 2% Ointment - TP 1 applic TID ALEKSANDR Administration Nystatin 1 applic 03/08/19 15:56 03/11/19 10:51 Mycostatin Ointment - TP 1 applic BID ALEKSANDR Administration Ranitidine HCl 150 mg 03/08/19 11:00 03/11/19 10:49 Zantac Oral Solution - GT 150 mg BID ALEKSANDR Administration Triamcinolone Acetonide 1 applic 03/08/19 16:00 03/11/19 10:50 Aristocort 0.1% Cream - TP 1 applic BID ALEKSANDR Administration ASSESSMENT/PLAN: Patient is a 28 year old male with PMH of intellectual disability and cerebral palsy with spastic quadraparesis who presents from [place] due to fever and respiratory distress. #Acute hypoxic respiratory failure 2/2 aspiration pneumonia -was switched to Augmentin to complete 7 days as per ID -ID (Dr. Valencia) consulted, recs appreciated. -Due to persistent hypotension, will resume zosyn for now. -Supplemental O2 prn #Hypotension -unclear etiology at this time. -IVF boluses given, maintenance IV NS @100cc/hr -Clonidine discontinued -Blood culture repeated -EKG - no changes from previous -CXR -B/L LE US to rule out DVT/PE -Start Zosyn -transfer to tele #Urinary retention -removal of qureshi done yesterday, patient with good urine output #Hx of Seizures -Continue home meds #FEN -IV NS @100cc/hr -Electrolytes wnl, routien bmp monitoring -tube feed, hold for now #Prophylaxis -Lovenox 40mg sq daily #Disposition -full code -transfer to tele Visit type - Emergency Visit Emergency Visit: Yes ED Registration Date: 03/07/19 Care time: The patient presented to the Emergency Department on the above date and was hospitalized for further evaluation of their emergent condition. - New Patient This patient is new to me today: Yes Date on this admission: 03/11/19 - Critical Care Critical Care patient: No ATTENDING PHYSICIAN STATEMENT I saw and evaluated the patient. I reviewed the resident's note and discussed the case with the resident. I agree with the resident's findings and plan as documented. SUBJECTIVE: OBJECTIVE: ASSESSMENT AND PLAN:
--- NOTE | 2019-03-11 18:48 | PROC ---
Central Line Insertion Indication: Poor Venous Access Risks and Benefits Explained: Yes Consent on Chart: Yes Central Line: Triple Lumen Catheter Anesthesia: 1% Lidocaine Sterile Technique: Yes Ultrasound Guided Assistance: No Position: Right Subclavian Post Insertion: Yes: Bilateral Breath Sounds, Bilateral Chest Expansion, Chest X-Ray Ordered Sterile Dressing Applied: Yes
[2019-03-11] MEDS ORDERED: TRIPLE LUMEN FLUSH 4 ML ML IVPUSH PRN (19:03)
[2019-03-11] MEDS: ENOXAPARIN NA (PORCINE) 60 MG/0.6 ML DISP.SYRIN SQ SCH (23:33)
[2019-03-12] MEDS: BACLOFEN 10 MG TABLET (FP) GT SCH ×2 (00:43→17:01)
--- NOTE | 2019-03-12 00:56 | PN ---
Progress Note (short form) - Note Progress Note: Came to check if CTA was done, told by nurse that it was not done because they couldn't inject contrast with a g22 needle, and they can't push contrast in the neck because there is no ingot header present. Called radiology if MD could push the contrast through the central line, I was informed it was against hospital policy and that they dont want to risk "bursting" the vein in the neck. Anticoagulation given earlier. Patient remains stable. Cardiac profile done x2. Ordered echo for the morning.
[2019-03-12] MEDS ORDERED: PIPERACILLIN/TAZOBACTAM 3.375 GM VIAL IVPB ONE ×2 (01:47→10:29)
[2019-03-12] MEDS ORDERED: SODIUM CHLORIDE 50 ML IVPB ONE ×2 (01:47→10:29)
[2019-03-12] MEDS: PIPERACILLIN/TAZOB 3.375 GM 3.375 GM in SODIUM CHLORIDE 50 ML IVPB SCH ×2 (02:25→11:01)
[2019-03-12] MEDS: ALBUTEROL SO4 2.5/IPRATROPIUM 0.5 INH SOL 3 ML VIAL.NEB. NEB SCH ×6 (02:38→20:30)
[2019-03-12] MEDS ORDERED: SODIUM CHLORIDE 1,000 ML IV STA (03:19)
[2019-03-12 03:46] LABS: BASO % 0.4 % (0-2.0); EOS % 3.2 % (0-4.5); HEMATOCRIT 31.6 % (35.4-49); HEMOGLOBIN 10.5 GM/dL (11.7-16.9); LYMPH % 42.2 % (8-40); MCH 27.8 pg (25.7-33.7); MCHC 33.3 g/dl (32.0-35.9); MEAN CELL VOLUME 83.4 fl (80-96); MEAN PLT VOLUME 7.5 fl (7.5-11.1); MONO % 7.8 % (3.8-10.2); NEUT % 46.4 % (42.8-82.8); PLATELET COUNT 238 K/MM3 (134-434); RBC 3.79 M/mm3 (4.00-5.60); RDW 17.9 % (11.9-15.9); WHITE BLOOD COUNT 6.1 K/mm3 (4.0-10.0)
[2019-03-12 04:15] LABS: BLOOD UREA NITROGEN 5.2 mg/dL (7-18); CALCIUM 7.6 mg/dL (8.5-10.1); CREATININE 0.3 mg/dL (0.55-1.3); POTASSIUM 3.2 mmol/L (3.5-5.1)
[2019-03-12] MEDS: BACLOFEN 10 MG TABLET (FP) PO SCH ×2 (05:22→11:30)
[2019-03-12] MEDS: MUPIROCIN 2% TOPICAL OINTMENT 22 GM TUBE TP SCH ×3 (05:22→21:44)
[2019-03-12] MEDS: clonazePAM 2 MG TABLET GT SCH ×3 (05:22→21:43)
[2019-03-12] MEDS ORDERED: ALBUTEROL SO4 2.5/IPRATROPIUM 0.5 INH SOL 3 ML VIAL.NEB. NEB PRN (06:52)
[2019-03-12 07:06] LABS: BASO % 0.5 % (0-2.0); EOS % 3.6 % (0-4.5); HEMATOCRIT 33.5 % (35.4-49); HEMOGLOBIN 11.2 GM/dL (11.7-16.9); LYMPH % 41.3 % (8-40); MCH 27.8 pg (25.7-33.7); MCHC 33.4 g/dl (32.0-35.9); MEAN CELL VOLUME 83.2 fl (80-96); MEAN PLT VOLUME 7.5 fl (7.5-11.1); MONO % 7.3 % (3.8-10.2); NEUT % 47.3 % (42.8-82.8); PLATELET COUNT 248 K/MM3 (134-434); RBC 4.02 M/mm3 (4.00-5.60); RDW 17.5 % (11.9-15.9); WHITE BLOOD COUNT 5.3 K/mm3 (4.0-10.0)
[2019-03-12 07:29] LABS: BILIRUBIN,TOTAL 0.4 mg/dL (0.2-1); BLOOD UREA NITROGEN 3.5 mg/dL (7-18); CALCIUM 7.9 mg/dL (8.5-10.1); CREATININE 0.3 mg/dL (0.55-1.3); MAGNESIUM 2.2 mg/dL (1.8-2.4); PHOSPHOROUS 3.5 mg/dL (2.5-4.9); POTASSIUM 3.5 mmol/L (3.5-5.1); TOT PROT 7.1 g/dl (6.4-8.2)
--- NOTE | 2019-03-12 08:56 | PN ---
Progress Note (short form) - Note Progress Note: Subjective: Over night, hypotension was present but improved form before. CTA was not done due to radiology receptionist unable to inject IV dye through a central line. Objective: Last Vital Signs Temp Pulse Resp BP Pulse Ox 97.1 F L 53 L 16 103/79 98 03/11/19 16:28 03/12/19 06:00 03/11/19 14:42 03/12/19 06:00 03/11/19 21:00 Laboratory Results - last 24 hr 03/11/19 03/11/19 03/12/19 07:30 16:26 01:00 WBC 5.3 RBC 4.12 Hgb 11.5 L Hct 34.2 L MCV 83.1 MCH 27.8 MCHC 33.5 RDW 18.5 H Plt Count 267 MPV 7.5 Absolute Neuts (auto) Neutrophils % Lymphocytes % Monocytes % Eosinophils % Basophils % Nucleated RBC % Sodium Potassium Chloride Carbon Dioxide Anion Gap BUN Creatinine Est GFR (CKD-EPI)AfAm Est GFR (CKD-EPI)NonAf Random Glucose Lactic Acid Calcium Phosphorus Magnesium Total Bilirubin AST ALT Alkaline Phosphatase Creatine Kinase 314 H 381 H Creatine Kinase Index 1.4 1.4 CK-MB (CK-2) 4.7 H 5.6 H Troponin I < 0.02 < 0.02 Total Protein Albumin 03/12/19 03/12/19 03/12/19 03:15 03:15 03:15 WBC 6.1 RBC 3.79 L Hgb 10.5 L Hct 31.6 L MCV 83.4 MCH 27.8 MCHC 33.3 RDW 17.9 H Plt Count 238 MPV 7.5 Absolute Neuts (auto) 2.8 Neutrophils % 46.4 D Lymphocytes % 42.2 H D Monocytes % 7.8 Eosinophils % 3.2 D Basophils % 0.4 Nucleated RBC % 0 Sodium 141 Potassium 3.2 L Chloride 108 H Carbon Dioxide 27 Anion Gap 5 L BUN 5.2 L Creatinine 0.3 L Est GFR (CKD-EPI)AfAm 212.34 Est GFR (CKD-EPI)NonAf 183.21 Random Glucose 86 Lactic Acid 0.4 Calcium 7.6 L Phosphorus Magnesium Total Bilirubin AST ALT Alkaline Phosphatase Creatine Kinase Creatine Kinase Index CK-MB (CK-2) Troponin I Total Protein Albumin 03/12/19 03/12/19 06:30 06:30 WBC 5.3 RBC 4.02 Hgb 11.2 L Hct 33.5 L MCV 83.2 MCH 27.8 MCHC 33.4 RDW 17.5 H Plt Count 248 MPV 7.5 Absolute Neuts (auto) 2.5 Neutrophils % 47.3 Lymphocytes % 41.3 H Monocytes % 7.3 Eosinophils % 3.6 Basophils % 0.5 Nucleated RBC % 0 Sodium 141 Potassium 3.5 Chloride 110 H Carbon Dioxide 27 Anion Gap 4 L BUN 3.5 L Creatinine 0.3 L Est GFR (CKD-EPI)AfAm 212.34 Est GFR (CKD-EPI)NonAf 183.21 Random Glucose 81 Lactic Acid Calcium 7.9 L Phosphorus 3.5 Magnesium 2.2 Total Bilirubin 0.4 AST 10 L ALT 25 Alkaline Phosphatase 92 Creatine Kinase Creatine Kinase Index CK-MB (CK-2) Troponin I Total Protein 7.1 Albumin 3.0 L NAD, awake, NC on 4 L of FiO2 CV: RRR Lungs: clear anteriorly Abd: soft, PEG in. NL BS , ND Ext: muscular atrophy of legs, no edema . Hyperpigmentation on L leg ASSESSMENT AND PLAN: 28 y/o man with h/o MR, cortical blindness, HTN, microcephaly, cerebral palsy, quadriplegia, seizure disorder, scoliosis, hyponatremia, and other medical problems who presented from [place] due to fever and resp distres, he was found to have sepsis and acute hypoxic resp dailure 1- Hypotension: hypovolemis Vs r/o PE. - absence of tachycardia and response of BP to fluids is reassuring. but still need CTA - get Echo - Pulm consult - cont IVF - tele reviewed. sinus meño over night. - cont to hold clonidine 2-Acute hypoxic resp failure, due to RLL aspiration PNA. R/o PE - CTA today. spoke to [employer] and checked the central line which is compatible with power injector and IV dye. consent obtained from his mother over the phone - Pulm consult - Tejinder for now. if cont to be stable will switch to po augmentin tomorrow - follow repeat blood cx - Supplemental O2. - Nebs 3- H/o Seizure: cont meds. 4- Urinary retention : resolved 5- H/o HTN: off clonidine now due to hypotension 6- Nutrition:TF on hold. will depending on CTA results Dispo: HLOC. spoke to reyna Lara. update given and consent obtained [phone] Visit type - Emergency Visit Emergency Visit: Yes ED Registration Date: 03/07/19 Care time: The patient presented to the Emergency Department on the above date and was hospitalized for further evaluation of their emergent condition. - New Patient This patient is new to me today: No - Critical Care Critical Care patient: No
[2019-03-12] MEDS: BUDESONIDE 0.5 MG/2 ML INH SUSP VIAL NEB SCH ×2 (10:52→22:15)
[2019-03-12] MEDS: levETIRAcetam 500 MG/5 ML ORAL SOLUTION (UNIT-DOSE CUPS) GT SCH ×2 (11:04→21:47)
[2019-03-12] MEDS: carBAMazepine 100 MG/5 ML UNIT-DOSE CUP GT SCH ×2 (11:04→21:46)
[2019-03-12] MEDS: ENOXAPARIN NA (PORCINE) 60 MG/0.6 ML DISP.SYRIN SQ SCH (11:05)
[2019-03-12] MEDS: CHOLECALCIFEROL (VIT D SOLUTION) 400 UNIT/1 ML DROPS GT SCH (11:05)
[2019-03-12] MEDS: NYSTATIN 100000 UNIT/GM TOPICAL OINTMENT 15 GM TUBE TP SCH ×2 (11:06→21:44)
--- NOTE | 2019-03-12 11:17 | CON.PULM ---
Consult Consult Specialty:: PULMONARY Referred by:: NORRIS Reason for Consultation:: DVT R/O PE - History of Present Illness History of Present Illness: Patient is a 28 year old male with a PMH of microcephaly, intellectual disability, cerebral palsy with spastic quadriparesis, intractable seizures, cortical blindness, asthma, scoliosis (s/p repair in 07/2006), dysphagia, and hyponatremia, s/p G-tube portable who presents to the ER from [place] via EMS with fevers since earlier today. As per Residential, patient had some associated diaphoresis, rigors, tachypnea, tachycardia, and abnormal respiration. Staff member present at beside is unaware of any specific symptoms including cough, problems with the G-tube or vomiting, diarrhea, rash, or any other known abnormalities. His temp on arrival to the ER was 101F. No other symptoms or complaints noted. - History Source History Provided By: Medical Record Limitations to Obtaining History: Clinical Condition - Past Medical History [employer]: Yes: Seizure, Other (CP/MR) Pulmonary: Yes: Asthma Musculoskeletal: Yes: Other (scoliosis) - Past Surgical History Additional Surgical History: Kong rods, GT - Alcohol/Substance Use Hx Alcohol Use: No History of Substance Use: reports: None - Smoking History Smoking history: Unknown if ever smoked Have you smoked in the past 12 months: No Aproximately how many cigarettes per day: 0 - Social History Usual Living Arrangement: Long Term ADL: Support Services History of Recent Travel: No Home Medications - Allergies Allergies/Adverse Reactions: Allergies Allergy/AdvReac Type Severity Reaction Status Date / Time Beef Containing Products Allergy Unknown Verified 03/07/19 19:08 erythromycin base Allergy Verified 03/07/19 19:08 phenobarbital Allergy Verified 03/07/19 19:08 venom-honey bee Allergy Verified 03/07/19 19:08 [bee venom (honey bee)] - Home Medications Home Medications: Ambulatory Orders Aspirin [ASA -] 81 mg GT HS 03/17/18 Carbamazepine [Tegretol -] 280 mg GT BID 03/17/18 Cholecalciferol (Vitamin D3) [Vitamin D3] 2,000 unit GT DAILY 03/17/18 Omeprazole Magnesium [Prilosec] 20 mg GT DAILY 03/17/18 Tamsulosin HCl [Flomax -] 0.4 mg GT DAILY 03/17/18 cloNIDine HCL [Catapres -] 0.2 mg PO HS 03/17/18 clonazePAM [KlonoPIN -] 1 mg GT TID 03/17/18 Baclofen [Lioresal -] 10 mg PO DAILY@0600,1200 tablet 03/21/18 Budesonide [Pulmicort 0.5 mg Nebulizer -] 1 neb NEB BID 07/12/18 Diazepam [Diastat Acudial] 20 mg RC PRN PRN 07/12/18 Ipratropium/Albuterol Sulfate [Iprat-Albut 0.5-3(2.5) mg/3 ml] 3 ml IH QID PRN 07/12/18 Nystatin Ointment [Mycostatin Ointment -] 1 applic TP BID 07/12/18 Triamcinolone 0.1% Cream [Aristocort 0.1% Cream -] 1 applic TP BID 07/12/18 Scopolamine Hydrobromide [Transderm-Scop -] 1 patch TD Q72H #10 patch.td72 07/18 Mupirocin Ointment [Bactroban 2% Ointment -] 1 applic TP TID 08/11/18 levETIRAcetam [Keppra Oral Solution -] 1,500 mg GT BID cup 10/06/18 Baclofen 20 mg PO 03/08/19 Family Disease History - Family Disease History Family History: Unable to Obtain Physical Exam Vital Sings: Vital Signs Temperature 97.1 F L 03/11/19 16:28 Pulse Rate 53 L 03/12/19 06:00 Respiratory Rate 16 03/12/19 10:00 Blood Pressure 103/79 03/12/19 06:00 O2 Sat by Pulse Oximetry (%) 98 03/12/19 09:00 Constitutional: Yes: Other (FUNCTIONAL QUAD/CONTRACTED) Eyes: No: Ptosis HENT: Yes: Other (MICROCEPHALIC) Neck: Yes: Decreased ROM Cardiovascular: Yes: Pulse Irregular, S1, S2 Respiratory: Yes: Rhonchi Gastrointestinal: Yes: Soft Extremities: Yes: Shortened Neurological: Yes: Pre-Existing Deficit Labs: CBC, BMP 03/12/19 06:30 03/12/19 06:30 REST REVIEWED Imaging - Results Chest X-ray: Report Reviewed, Image Reviewed Cat Scan: Report Reviewed, Image Reviewed EKG: Report Reviewed, Image Reviewed Problem List - Problems (1) DVT (deep venous thrombosis) Code(s): I82.409 - ACUTE EMBOLISM AND THOMBOS UNSP DEEP VN UNSP LOWER EXTREMITY (2) Pneumonia Code(s): J18.9 - PNEUMONIA, UNSPECIFIED ORGANISM (3) Functional quadriplegia Code(s): R53.2 - FUNCTIONAL QUADRIPLEGIA (4) Tachycardia Code(s): R00.0 - TACHYCARDIA, UNSPECIFIED (5) Cerebral palsy Code(s): G80.9 - CEREBRAL PALSY, UNSPECIFIED Qualifiers: Cerebral palsy type: unspecified type Qualified Code(s): G80.9 - Cerebral palsy, unspecified Assessment/Plan CTA REVEALS PNEUMONIA/NO PE DVT RIGHT POPLITEAL VEIN FUNCTIONAL QUAD/CP/MR/SNF RESIDENT WILL NEED ANTICOAGULATION AGREE WITH POLA CASIANO 3-6 MONTHS (IF THIS IS THE FIRST EPISODE OF VTE) ANTIBIOTICS PER PRIMARY CONTINUE O2 SUPPLEMENTATION NEEDED THANK YOU FOR THIS CONSULT Brian SOLO MD
[2019-03-12] MEDS ORDERED: ALBUTEROL SO4 0.083% IH SOL 2.5 MG/3 ML VIAL.NEB. NEB PRN ×2 (11:21→11:22)
[2019-03-12] MEDS: RANITIDINE HCL 150 MG/10 ML UNIT-DOSE GT SCH ×2 (11:26→21:47)
[2019-03-12] MEDS: TRIAMCINOLONE ACET 0.1% CREAM 15 GM TUBE TP SCH ×2 (11:27→21:44)
[2019-03-12] MEDS ORDERED: PT OWN MED DRAWER 7, Y5N ONE ×2 (11:47→21:12)
[2019-03-12] MEDS: SODIUM CHLORIDE 1,000 ML IV SCH ×2 (13:15→15:40)
[2019-03-12] MEDS: ASPIRIN 81 MG CHEWABLE TABLETS GT SCH (21:43)
[2019-03-12] MEDS: APIXABAN 5 MG TABLET PO SCH (21:43)
[2019-03-13] MEDS: ALBUTEROL SO4 2.5/IPRATROPIUM 0.5 INH SOL 3 ML VIAL.NEB. NEB SCH ×7 (00:10→23:46)
[2019-03-13] MEDS: BACLOFEN 10 MG TABLET (FP) GT SCH ×2 (00:45→18:06)
[2019-03-13] MEDS: clonazePAM 2 MG TABLET GT SCH ×3 (05:35→22:28)
[2019-03-13] MEDS: MUPIROCIN 2% TOPICAL OINTMENT 22 GM TUBE TP SCH ×3 (05:36→22:27)
[2019-03-13] MEDS: BACLOFEN 10 MG TABLET (FP) PO SCH ×2 (05:36→12:15)
[2019-03-13] MEDS ORDERED: PT OWN MED DRAWER 7, Y5N ONE ×3 (07:25→21:41)
[2019-03-13] MEDS: BUDESONIDE 0.5 MG/2 ML INH SUSP VIAL NEB SCH ×2 (09:36→22:00)
--- NOTE | 2019-03-13 10:36 | PN ---
Progress Note, Physician History of Present Illness: PULMONARY AWAKE,CONGESTED ,-RESP DISTRESS - Current Medication List Current Medications: Active Medications Albuterol Sulfate (Ventolin 0.083% Nebulizer Soln -) 1 amp NEB QID PRN PRN Reason: SHORT OF BREATH/WHEEZING Albuterol/Ipratropium (Duoneb -) 1 amp NEB RQ4H [facility] Last Admin: 03/13/19 07:35 Dose: 1 amp Apixaban (Eliquis -) 10 mg PO BID [facility] Last Admin: 03/12/19 21:43 Dose: 10 mg Aspirin (Asa -) 81 mg GT HS [facility] Last Admin: 03/12/19 21:43 Dose: 81 mg Baclofen (Lioresal -) 10 mg PO DAILY@0600,1200 [facility] Last Admin: 03/13/19 05:36 Dose: 10 mg Baclofen (Lioresal -) 20 mg GT DAILY@1800,0000 [facility] Last Admin: 03/13/19 00:45 Dose: 20 mg Budesonide (Pulmicort 0.5 Mg Nebulizer -) 1 amp NEB BID [facility] Last Admin: 03/13/19 09:36 Dose: Not Given Carbamazepine (Carbamazepine) 280 mg GT BID [facility] Last Admin: 03/12/19 21:46 Dose: 280 mg Cholecalciferol (Vitamin D3 Oral Solution -) 2,000 unit GT DAILY [facility] Last Admin: 03/12/19 11:05 Dose: 2,000 unit Clonazepam (Klonopin -) 1 mg GT TID [facility] Last Admin: 03/13/19 05:35 Dose: 1 mg IV Flush (Triple Lumen Flush) 4 ml IVPUSH PRN PRN PRN Reason: Protocol Sodium Chloride (Normal Saline -) 1,000 mls @ 100 mls/hr IV ASDIR [facility] Last Admin: 03/12/19 15:40 Dose: 100 mls/hr Piperacillin Sod/Tazobactam (Sod 3.375 gm/ Dextrose) 50 mls @ 100 mls/hr IVPB Q8H-IV ALEKSANDR; Protocol Levetiracetam (Keppra Oral Solution -) 1,500 mg GT BID [facility] Last Admin: 03/12/19 21:47 Dose: 1,500 mg Mupirocin (Bactroban 2% Ointment -) 1 applic TP TID [facility] Last Admin: 03/13/19 05:36 Dose: 1 applic Nystatin (Mycostatin Ointment -) 1 applic TP BID [facility] Last Admin: 03/12/19 21:44 Dose: 1 applic Ranitidine HCl (Zantac Oral Solution -) 150 mg GT BID [facility] Last Admin: 03/12/19 21:47 Dose: 150 mg Triamcinolone Acetonide (Aristocort 0.1% Cream -) 1 applic TP BID [facility] Last Admin: 03/12/19 21:44 Dose: 1 applic - Objective Vital Signs: Vital Signs Temperature 98.2 F 03/13/19 05:00 Pulse Rate 78 03/13/19 10:00 Respiratory Rate 22 H 03/13/19 10:00 Blood Pressure 122/66 03/13/19 10:00 O2 Sat by Pulse Oximetry (%) 98 03/13/19 09:53 Constitutional: Yes: Calm, Thin Eyes: Yes: WNL HENT: Yes: Other (MICROCEPHALIC) Neck: Yes: WNL Cardiovascular: Yes: Regular Rate and Rhythm, S1, S2 Respiratory: Yes: Rhonchi (BILATERAL RHONCHI) Gastrointestinal: Yes: Normal Bowel Sounds, Soft Extremities: Yes: Shortened, Other (CONTRACTED) Edema: No Labs: Assessment/Plan Problem List - Problems (1) DVT (deep venous thrombosis) Code(s): I82.409 - ACUTE EMBOLISM AND THOMBOS UNSP DEEP VN UNSP LOWER EXTREMITY (2) Pneumonia Code(s): J18.9 - PNEUMONIA, UNSPECIFIED ORGANISM (3) Functional quadriplegia Code(s): R53.2 - FUNCTIONAL QUADRIPLEGIA (4) Tachycardia Code(s): R00.0 - TACHYCARDIA, UNSPECIFIED (5) Cerebral palsy Code(s): G80.9 - CEREBRAL PALSY, UNSPECIFIED Qualifiers: Cerebral palsy type: unspecified type Qualified Code(s): G80.9 - Cerebral palsy, unspecified Assessment/Plan CTA REVEALS PNEUMONIA/NO PE DVT RIGHT POPLITEAL VEIN FUNCTIONAL QUAD/CP/MR/SNF RESIDENT ANTICOAGULATION AGREE WITH LOVENOX TO ELIQUIS 3-6 MONTHS (IF THIS IS THE FIRST EPISODE OF VTE) ANTIBIOTICS CONTINUE O2 INHALED BRONCHODILATORS SHORT COURSE OF HERMINIO WALSH
[2019-03-13] MEDS: APIXABAN 5 MG TABLET PO SCH ×2 (11:08→22:28)
[2019-03-13] MEDS: RANITIDINE HCL 150 MG/10 ML UNIT-DOSE GT SCH ×2 (11:08→22:28)
[2019-03-13] MEDS: carBAMazepine 100 MG/5 ML UNIT-DOSE CUP GT SCH ×2 (11:09→22:29)
[2019-03-13] MEDS: CHOLECALCIFEROL (VIT D SOLUTION) 400 UNIT/1 ML DROPS GT SCH (11:10)
[2019-03-13] MEDS: levETIRAcetam 500 MG/5 ML ORAL SOLUTION (UNIT-DOSE CUPS) GT SCH ×2 (11:11→22:30)
[2019-03-13] MEDS: NYSTATIN 100000 UNIT/GM TOPICAL OINTMENT 15 GM TUBE TP SCH ×2 (11:19→22:27)
[2019-03-13] MEDS: TRIAMCINOLONE ACET 0.1% CREAM 15 GM TUBE TP SCH ×2 (11:19→22:47)
[2019-03-13] MEDS: methylPREDNISolone NA SUCC 40 MG/1 ML VIAL IVPUSH SCH ×2 (11:52→19:24)
--- NOTE | 2019-03-13 12:48 | ECHO ---
Name: ALETA MOYA Exam:Adult Echocardiogram Study Date: 03/13/2019 09:17 AM Age: 28 yrs Reason For Study: possible pe,r/o right heart strain Height: 60 in Weight: 123 lb BSA: 1.5 m2 MMode/2D Measurements & Calculations IVSd: 0.81 cm Ao root diam: 3.1 cm LVIDd: 4.8 cm LA dimension: 3.0 cm LVIDs: 2.8 cm ACS: 2.0 cm LVPWd: 0.77 cm IVSs: 1.0 cm LVPWs: 1.2 cm EDV(Teich): 105.7 ml ESV(Teich): 30.2 ml Doppler Measurements & Calculations MV E max mak: 68.8 cm/sec Ao V2 max: 85.5 cm/sec MV A max mak: 53.3 cm/sec Ao max P.9 mmHg MV E/A: 1.3 Ao V2 mean: 58.9 cm/sec Ao mean P.6 mmHg Ao V2 VTI: 17.6 cm Med Peak E' Mak: 6.9 cm/sec Med E/e': 10.0 Lat Peak E' Mak: 8.0 cm/sec Lat E/e': 8.6 Procedure A complete two-dimensional transthoracic echocardiogram was performed (2D, M-mode, Doppler and color flow Doppler). Left Ventricle The left ventricle is normal in size. Left ventricular systolic function is normal. Ejection Fraction = 65- 70%. No regional wall motion abnormalities noted. Right Ventricle The right ventricle is normal size. The right ventricular systolic function is normal. Atria The left atrial size is normal. Right atrial size is normal. Mitral Valve The mitral valve is normal in structure and function. There is no mitral regurgitation noted. Tricuspid Valve The tricuspid valve is normal in structure and function. No tricuspid regurgitation. Aortic Valve The aortic valve is normal in structure and function. No aortic regurgitation is present. Pulmonic Valve The pulmonic valve is not well visualized. Great Vessels The aortic root is normal size. Pericardium/Pleura There is no pericardial effusion. Interpretation Summary The left ventricle is normal in size. Left ventricular systolic function is normal. No regional wall motion abnormalities noted. Ejection Fraction = 65-70%. The right ventricular systolic function is normal. The left atrial size is normal. Right atrial size is normal. No significant valvular regurgitations There is no pericardial effusion. When compared to study dated 07/13/18, no significant changes Kristian Eller MD 03/13/2019 12:48 PM
--- NOTE | 2019-03-13 15:29 | PN ---
Teaching Attending Note Name of Resident: Donya Perez ATTENDING PHYSICIAN STATEMENT I saw and evaluated the patient. I reviewed the resident's note and discussed the case with the resident. I agree with the resident's findings and plan as documented. SUBJECTIVE: no events over night OBJECTIVE: NAD, awake, comfortable CV: RRR Lungs: rales b/l Abd: soft, PEG in. NL BS, ND Ext: muscular atrophy of legs, no edema . Hyperpigmentation on L leg ASSESSMENT AND PLAN: 28 y/o man with h/o MR, cortical blindness, HTN, microcephaly, cerebral palsy, quadriplegia, seizure disorder, scoliosis, hyponatremia, and other medical problems who presented from [place] due to fever and resp distres, he was found to have sepsis and acute hypoxic resp dailure 1- Hypotension: possible hypovolemis. responded to IVF. NO PE. - trial to dc IVf and monitor BP - Echo pending - tele reviewed. No events - cont to hold clonidine . will probably not resume at dc 2-Acute hypoxic resp failure, due to RLL aspiration PNA. PNA was treated. no PE on CTA - steroids added by pulm - FiO2 through [place] - day of b. switch to augementin x 1 more day -repeat blood cx neg x 48 hr - check pre-post for need of O2 3- H/o Seizure: cont meds. 4- Urinary retention : resolved 5- H/o HTN: off clonidine. 6- Nutrition:TF increase free water Dispo: HLOC.
--- NOTE | 2019-03-13 17:37 | PN ---
Physical Exam: SUBJECTIVE: Patient seen and examined OBJECTIVE: Vital Signs Period Temp Pulse Resp BP Sys/Don Pulse Ox Last 24 Hr 97.9 F-98.6 F 77-110 20-22 102-122/65-71 88-98 GENERAL: The patient is awake, alert, not oriented in time or place HEAD: Microcephalic features present EYES: No ptosis. LUNGS: Breath sounds diminished B/L, crackles noticed B/L HEART: Regular rate and rhythm, S1, S2 without murmur, rub or gallop. ABDOMEN: G Tube seen, soft, nontender, nondistended, normoactive bowel sounds, no guarding, no rebound, no hepatosplenomegaly, no masses. EXTREMITIES: R knee is swollen and erythematous NEUROLOGICAL: no speech, no gait SKIN: Warm, dry, normal turgor, no rashes or lesions noted, no decubitus ulcers noticed Active Medications Generic Name Dose Route Start Last Admin Trade Name Freq PRN Reason Stop Dose Admin Albuterol Sulfate 1 amp 03/12/19 11:22 Ventolin 0.083% Nebulizer Soln - NEB QID PRN SHORT OF BREATH/WHEEZING Albuterol/Ipratropium 1 amp 03/12/19 08:00 03/13/19 16:54 Duoneb - NEB 1 amp RQ4H ALEKSANDR Administration Amoxicillin/Clavulanate Potassium 1 tab 03/13/19 17:30 Augmentin - 875mg Tablet PO 03/14/19 17:31 BID@0800,1730 ALEKSANDR Apixaban 10 mg 03/12/19 22:00 03/13/19 11:08 Eliquis - PO 10 mg BID ALEKSANDR Administration Aspirin 81 mg 03/12/19 22:00 03/12/19 21:43 Asa - GT 81 mg HS ALEKSANDR Administration Baclofen 10 mg 03/12/19 12:00 03/13/19 12:15 Lioresal - PO 10 mg DAILY@0600,1200 ALEKSANDR Administration Baclofen 20 mg 03/12/19 18:00 03/13/19 00:45 Lioresal - GT 20 mg DAILY@1800,0000 ALEKSANDR Administration Budesonide 1 amp 03/12/19 10:00 03/13/19 09:36 Pulmicort 0.5 Mg Nebulizer - NEB Not Given BID ALEKSANDR Carbamazepine 280 mg 03/12/19 10:00 03/13/19 11:09 Carbamazepine GT 280 mg BID ALEKSANDR Administration Cholecalciferol 2,000 unit 03/12/19 10:00 03/13/19 11:10 Vitamin D3 Oral Solution - GT 2,000 unit DAILY ALEKSANDR Administration Clonazepam 1 mg 03/12/19 14:00 03/13/19 14:02 Klonopin - GT 1 mg TID ALEKSANDR Administration IV Flush 4 ml 03/11/19 19:03 Triple Lumen Flush IVPUSH PRN PRN Protocol Levetiracetam 1,500 mg 03/12/19 10:00 03/13/19 11:11 Keppra Oral Solution - GT 1,500 mg BID ALEKSANDR Administration Methylprednisolone Sodium Succinate 40 mg 03/13/19 10:45 03/13/19 11:52 Solu-Medrol - IVPUSH 40 mg Q8H-IV ALEKSANDR Administration Mupirocin 1 applic 03/12/19 14:00 03/13/19 14:10 Bactroban 2% Ointment - TP 1 applic TID ALEKSANDR Administration Nystatin 1 applic 03/12/19 10:00 03/13/19 11:19 Mycostatin Ointment - TP 1 applic BID ALEKSANDR Administration Ranitidine HCl 150 mg 03/12/19 10:00 03/13/19 11:08 Zantac Oral Solution - GT 150 mg BID ALEKSANDR Administration Triamcinolone Acetonide 1 applic 03/12/19 10:00 03/13/19 11:19 Aristocort 0.1% Cream - TP 1 applic BID ALEKSANDR Administration Current Medications Albuterol Sulfate (Ventolin 0.083% Nebulizer Soln -) 1 amp NEB QID PRN PRN Reason: SHORT OF BREATH/WHEEZING Albuterol/Ipratropium (Duoneb -) 1 amp NEB RQ4H [facility] Last Admin: 03/13/19 16:54 Dose: 1 amp Amoxicillin/Clavulanate Potassium (Augmentin - 875mg Tablet) 1 tab PO BID@0800, 1730 [facility] Stop: 03/14/19 17:31 Apixaban (Eliquis -) 10 mg PO BID [facility] Last Admin: 03/13/19 11:08 Dose: 10 mg Aspirin (Asa -) 81 mg GT HS [facility] Last Admin: 03/12/19 21:43 Dose: 81 mg Baclofen (Lioresal -) 10 mg PO DAILY@0600,1200 [facility] Last Admin: 03/13/19 12:15 Dose: 10 mg Baclofen (Lioresal -) 20 mg GT DAILY@1800,0000 [facility] Last Admin: 03/13/19 00:45 Dose: 20 mg Budesonide (Pulmicort 0.5 Mg Nebulizer -) 1 amp NEB BID [facility] Last Admin: 03/13/19 09:36 Dose: Not Given Carbamazepine (Carbamazepine) 280 mg GT BID [facility] Last Admin: 03/13/19 11:09 Dose: 280 mg Cholecalciferol (Vitamin D3 Oral Solution -) 2,000 unit GT DAILY [facility] Last Admin: 03/13/19 11:10 Dose: 2,000 unit Clonazepam (Klonopin -) 1 mg GT TID [facility] Last Admin: 03/13/19 14:02 Dose: 1 mg IV Flush (Triple Lumen Flush) 4 ml IVPUSH PRN PRN PRN Reason: Protocol Levetiracetam (Keppra Oral Solution -) 1,500 mg GT BID [facility] Last Admin: 03/13/19 11:11 Dose: 1,500 mg Methylprednisolone Sodium Succinate (Solu-Medrol -) 40 mg IVPUSH Q8H-IV [facility] Last Admin: 03/13/19 11:52 Dose: 40 mg Mupirocin (Bactroban 2% Ointment -) 1 applic TP TID [facility] Last Admin: 03/13/19 14:10 Dose: 1 applic Nystatin (Mycostatin Ointment -) 1 applic TP BID [facility] Last Admin: 03/13/19 11:19 Dose: 1 applic Ranitidine HCl (Zantac Oral Solution -) 150 mg GT BID [facility] Last Admin: 03/13/19 11:08 Dose: 150 mg Triamcinolone Acetonide (Aristocort 0.1% Cream -) 1 applic TP BID [facility] Last Admin: 03/13/19 11:19 Dose: 1 applic ASSESSMENT/PLAN: 28 M with PMH of intellectual disability and cerebral palsy with spastic quadraparesis who presents from his nursing facility with likely aspiration pneumonia. #Sepsis/Aspiration Pneumonia: -Started on Augmentin 875mg PO (03/13) -USG (03/13) R Popliteal thrombus -CT Chest: (03/12) No PE, atelectasis R upper, R&L lower lobes -Pulm consult: (03/12) Medrol IV 40mg Q8 -Blood cx: Prelim shows no growth after 48h -urine cx, urine Legionella & Strep P antigen NEGATIVE -Hx of Staph Hominis -CXR(03/07): right diaphragm is elevated, scoliosis hardware visible, right hilar infiltrates. #Urinary retention (resolved) -Werner D/C (03/11) #Hypotension: -monitor BP (110-120/65-70 today) -Clonidine 0.2mg on hold #Hypoglycemia -03/07-03/09 59, 76, 89 -Tube feed, DW5 started (03/08) #Hx of seizure -resumed seizure home meds (03/08) #DVT prophylaxis -Add Eliquis 10 mg PO BID (03/12) -Lovenox 40 mg SQ QDaily #FEN -Albumin low 3.0, 3.2, 3.0 Ca low 8.1, 8.4, 7.9 Protein low7.2, 7.6, 7.1 Cl high 106, 104, 110 -Resumed tube feeds (03/08) Visit type - Emergency Visit Emergency Visit: Yes ED Registration Date: 03/07/19 Care time: The patient presented to the Emergency Department on the above date and was hospitalized for further evaluation of their emergent condition. - New Patient This patient is new to me today: No - Critical Care Critical Care patient: No - Discharge Referral Referred to [facility] Med P.C.: No ATTENDING PHYSICIAN STATEMENT I saw and evaluated the patient. I reviewed the resident's note and discussed the case with the resident. I agree with the resident's findings and plan as documented. SUBJECTIVE: OBJECTIVE: ASSESSMENT AND PLAN:
[2019-03-13] MEDS: AMOX TR/POT CLAV 875MG/125MG TABLETS (FP) PO SCH ×2 (18:06→18:53)
[2019-03-13] MEDS: ASPIRIN 81 MG CHEWABLE TABLETS GT SCH (22:29)
[2019-03-14] MEDS ORDERED: PT OWN MED DRAWER 7, Y5N ONE ×3 (01:05→16:54)
[2019-03-14] MEDS: BACLOFEN 10 MG TABLET (FP) GT SCH ×2 (01:09→17:01)
[2019-03-14] MEDS: methylPREDNISolone NA SUCC 40 MG/1 ML VIAL IVPUSH SCH ×2 (01:09→11:24)
[2019-03-14] MEDS: ALBUTEROL SO4 2.5/IPRATROPIUM 0.5 INH SOL 3 ML VIAL.NEB. NEB SCH ×3 (03:37→11:40)
[2019-03-14] MEDS: clonazePAM 2 MG TABLET GT SCH ×2 (06:17→14:18)
[2019-03-14] MEDS: BACLOFEN 10 MG TABLET (FP) PO SCH ×2 (06:17→12:24)
[2019-03-14] MEDS: MUPIROCIN 2% TOPICAL OINTMENT 22 GM TUBE TP SCH ×2 (06:18→14:19)
[2019-03-14 06:57] LABS: HEMATOCRIT 33.6 % (35.4-49); HEMOGLOBIN 11.3 GM/dL (11.7-16.9); MCHC 33.6 g/dl (32.0-35.9); MEAN CELL VOLUME 83.3 fl (80-96); MEAN PLT VOLUME 7.6 fl (7.5-11.1); RBC 4.04 M/mm3 (4.00-5.60); RDW 17.6 % (11.9-15.9); WHITE BLOOD COUNT 7.6 K/mm3 (4.0-10.0)
[2019-03-14 07:31] LABS: ALBUMIN 3.3 g/dl (3.4-5.0); BILIRUBIN,TOTAL 0.2 mg/dL (0.2-1); BLOOD UREA NITROGEN 5.5 mg/dL (7-18); CALCIUM 8.4 mg/dL (8.5-10.1); CREATININE 0.3 mg/dL (0.55-1.3); TOT PROT 7.9 g/dl (6.4-8.2)
[2019-03-14] MEDS ORDERED: AMOX TR/POTASSIUM CLAVULANATE 600 MG/5 ML PO SCH (08:00)
[2019-03-14 08:03] LABS: PLATELET COUNT 253 K/MM3 (134-434)
--- NOTE | 2019-03-14 10:20 | PN ---
Progress Note, Physician History of Present Illness: pulmonary awake,comfortable,-resp distress - Current Medication List Current Medications: Active Medications Albuterol Sulfate (Ventolin 0.083% Nebulizer Soln -) 1 amp NEB QID PRN PRN Reason: SHORT OF BREATH/WHEEZING Albuterol/Ipratropium (Duoneb -) 1 amp NEB RQ4H [facility] Last Admin: 03/14/19 07:38 Dose: 1 amp Amoxicillin/Clavulanate Potassium (Augmentin 250 Mg/5 Ml Oral Suspension -) 500 mg PO BID@0800,1730 [facility] Apixaban (Eliquis -) 10 mg PO BID [facility] Last Admin: 03/13/19 22:28 Dose: 10 mg Aspirin (Asa -) 81 mg GT HS [facility] Last Admin: 03/13/19 22:29 Dose: 81 mg Baclofen (Lioresal -) 10 mg PO DAILY@0600,1200 [facility] Last Admin: 03/14/19 06:17 Dose: 10 mg Baclofen (Lioresal -) 20 mg GT DAILY@1800,0000 [facility] Last Admin: 03/14/19 01:09 Dose: 20 mg Budesonide (Pulmicort 0.5 Mg Nebulizer -) 1 amp NEB BID [facility] Last Admin: 03/13/19 22:00 Dose: 1 amp Carbamazepine (Carbamazepine) 280 mg GT BID [facility] Last Admin: 03/13/19 22:29 Dose: 280 mg Cholecalciferol (Vitamin D3 Oral Solution -) 2,000 unit GT DAILY [facility] Last Admin: 03/13/19 11:10 Dose: 2,000 unit Clonazepam (Klonopin -) 1 mg GT TID [facility] Last Admin: 03/14/19 06:17 Dose: 1 mg IV Flush (Triple Lumen Flush) 4 ml IVPUSH PRN PRN PRN Reason: Protocol Levetiracetam (Keppra Oral Solution -) 1,500 mg GT BID [facility] Last Admin: 03/13/19 22:30 Dose: 1,500 mg Methylprednisolone Sodium Succinate (Solu-Medrol -) 40 mg IVPUSH Q8H-IV [facility] Last Admin: 03/14/19 01:09 Dose: 40 mg Mupirocin (Bactroban 2% Ointment -) 1 applic TP TID [facility] Last Admin: 03/14/19 06:18 Dose: 1 applic Nystatin (Mycostatin Ointment -) 1 applic TP BID [facility] Last Admin: 03/13/19 22:27 Dose: 1 applic Ranitidine HCl (Zantac Oral Solution -) 150 mg GT BID [facility] Last Admin: 03/13/19 22:28 Dose: 150 mg Triamcinolone Acetonide (Aristocort 0.1% Cream -) 1 applic TP BID [facility] Last Admin: 03/13/19 22:47 Dose: 1 applic - Objective Vital Signs: Vital Signs Temperature 99.0 F 03/14/19 09:33 Pulse Rate 89 03/14/19 09:33 Respiratory Rate 20 03/14/19 09:33 Blood Pressure 103/44 L 03/14/19 09:33 O2 Sat by Pulse Oximetry (%) 97 03/14/19 09:00 Constitutional: Yes: Calm, Thin Eyes: Yes: WNL HENT: Yes: Other (microcephalic) Cardiovascular: Yes: Regular Rate and Rhythm, S1, S2 Respiratory: Yes: Rhonchi (less rhonchi bilaterally) Gastrointestinal: Yes: Normal Bowel Sounds, Soft Extremities: Yes: Shortened, Other (contractated,) Labs: CBC, BMP 03/14/19 06:00 03/14/19 06:00 INR, PTT INR 1.29 (0.83-1.09) H 03/07/19 20:00 Assessment/Plan Problem List - Problems (1) DVT (deep venous thrombosis) Code(s): I82.409 - ACUTE EMBOLISM AND THOMBOS UNSP DEEP VN UNSP LOWER EXTREMITY (2) Pneumonia Code(s): J18.9 - PNEUMONIA, UNSPECIFIED ORGANISM (3) Functional quadriplegia Code(s): R53.2 - FUNCTIONAL QUADRIPLEGIA (4) Tachycardia Code(s): R00.0 - TACHYCARDIA, UNSPECIFIED (5) Cerebral palsy Code(s): G80.9 - CEREBRAL PALSY, UNSPECIFIED Qualifiers: Cerebral palsy type: unspecified type Qualified Code(s): G80.9 - Cerebral palsy, unspecified Assessment/Plan CTA REVEALS PNEUMONIA/NO PE DVT RIGHT POPLITEAL VEIN FUNCTIONAL QUAD/CP/MR/SNF RESIDENT ANTICOAGULATION AGREE WITH LOVENOX TO ELIQUIS 3-6 MONTHS (IF THIS IS THE FIRST EPISODE OF VTE) ANTIBIOTICS CONTINUE O2 INHALED BRONCHODILATORS TAPER HERMINIO WALSH
[2019-03-14] MEDS: BUDESONIDE 0.5 MG/2 ML INH SUSP VIAL NEB SCH (10:35)
[2019-03-14] MEDS: AMOX TR/POTASSIUM CLAVULANATE 250 MG/5 ML BOTTLE PO SCH ×2 (11:10→17:01)
[2019-03-14] MEDS: APIXABAN 5 MG TABLET PO SCH (11:11)
[2019-03-14] MEDS: RANITIDINE HCL 150 MG/10 ML UNIT-DOSE GT SCH (11:12)
[2019-03-14] MEDS: levETIRAcetam 500 MG/5 ML ORAL SOLUTION (UNIT-DOSE CUPS) GT SCH (11:12)
[2019-03-14] MEDS: CHOLECALCIFEROL (VIT D SOLUTION) 400 UNIT/1 ML DROPS GT SCH (11:14)
[2019-03-14] MEDS: carBAMazepine 100 MG/5 ML UNIT-DOSE CUP GT SCH (11:15)
[2019-03-14] MEDS: NYSTATIN 100000 UNIT/GM TOPICAL OINTMENT 15 GM TUBE TP SCH (11:18)
[2019-03-14] MEDS: TRIAMCINOLONE ACET 0.1% CREAM 15 GM TUBE TP SCH (11:19)
--- NOTE | 2019-03-14 14:15 | PN ---
Teaching Attending Note Name of Resident: Tony Brady ATTENDING PHYSICIAN STATEMENT I saw and evaluated the patient. I reviewed the resident's note and discussed the case with the resident. I agree with the resident's findings and plan as documented. SUBJECTIVE: No events over night OBJECTIVE: NAD, awake, comfortable CV: RRR Lungs: rales b/l Abd: soft, PEG in. NL BS, ND Ext: muscular atrophy of legs, no edema . Hyperpigmentation on L leg ASSESSMENT AND PLAN: 28 y/o man with h/o MR, cortical blindness, HTN, microcephaly, cerebral palsy, quadriplegia, seizure disorder, scoliosis, hyponatremia, and other medical problems who presented from [place] due to fever and resp distres, he was found to have sepsis and acute hypoxic resp dailure 1- Hypotension: possible hypovolemis. responded to IVF. NO PE. stable off IVF since yesterday. - echo reviewed. - will not resume clonidine at dc. - Recommend careful monitoring of BP in [place]. In case anti-hypertensive need to be resumed 2-Acute hypoxic resp failure, due to RLL aspiration PNA. finished abx today need O2 at home cont steroids taper 3- H/o Seizure: cont meds. 4- Urinary retention : resolved 5- H/o HTN: off clonidine. will not resume 6- Nutrition:cont at dc Dc to [place]
[2019-03-14 15:02] VITALS: BP 99/48; PULSE 88; TEMP 98.8
--- NOTE | 2019-03-15 15:24 | DS ---
Physical Exam: SUBJECTIVE: Patient seen and examined by the bedside. OBJECTIVE: PHYSICAL EXAM GENERAL: The patient is awake, alert, not oriented in time or place HEAD: Microcephalic features present EYES: No ptosis. LUNGS: Breath sounds diminished B/L, crackles noticed B/L HEART: Regular rate and rhythm, S1, S2 without murmur, rub or gallop. ABDOMEN: G Tube seen, soft, nontender, nondistended, normoactive bowel sounds, no guarding, no rebound, no hepatosplenomegaly, no masses. EXTREMITIES: R knee is swollen and erythematous NEUROLOGICAL: no speech, no gait SKIN: Warm, dry, normal turgor, no rashes or lesions noted, no decubitus ulcers noticed LABS HOSPITAL COURSE: Date of Admission:03/07/19 Date of Discharge: 03/15/19 The patient is a 28 male with PMH of intellectual disability and cerebral palsy with spastic quadraparesis who presented from his nursing facility ([place]) with a fever and cough. He was admitted for likely aspiration pneumonia. CXR showed right hilar infiltrates. Blood and urine cx were negative. Patient was started on IV Zosyn, later switched to Augmentin PO. He developed swelling in his Rt knee, vascular scan showed evidence of Rt Popliteal thrombus on 03/11. CT did not show PE. Patient was started on Eliquis 10mg PO. Pt was discharged upon resolution of pneumonia symptoms. Minutes to complete discharge: 20 Discharge Summary Reason For Visit: SEPSIS Condition: Improved - Instructions Diet, Activity, Other Instructions: You were admitted to the hospital because of an infection in your lungs. While you were here, we gave you antibiotics for the infection, and performed a scan ( CT Scan). You're infection has now resolved and you completed treatment. You will finish a steroid taper to help any inflammation in your lungs. Please continue to use 2L of oxygen via nasal cannula to keep your oxygen saturation above 90. titrate up and down as needed While you were here, you developed a clot in a vein in your right leg, which we found after we performed a scan of your leg (ultrasound) To make sure the clot does not worsen and you don't have any more clots we have started you on a medication Eliquis, you will take 10 mg by G tube twice a days for 5 more days then 5 mg BID after then for 3-6 month. Medications You were started on new medications. Please take them as prescribed. 1. Prednisone 40mg once by G tube March 14 and March 15 2. Prednisone 30mg once by G tube March 16 and March 17 3. Prednisone 20m once by G tube March 18 and March 19 4. Prednisone 10mg once by G tube March 20 and March 21 5. Eliquis 10mg by G tube, once in the morning and once in the evening for 5 more days then 5 mg BID after then for 3-6 months. 6. Aspirin was stopped inlight of eliquis 7. Clonidine was stopped due to hypotension Continue taking all your other home medications. Follow up 1. Please follow up with Dr. Mayorga Additional info Please return to the Emergency Department if you have any of the following: Nausea, vomiting, diarrhea, difficulty breathing, bleeding that will not stop, or persistent headache Tube feeds Jevity 1.5 at 45 cc/hr and water 35 cc/hr. Monitor BP closely , in case anti-hypertensives need to be started again Referrals: Bernardo Mayorga Jr [Non Staff, Medical] - Disposition: LONG TERM FACILITY - Home Medications Comprehensive Discharge Medication List: Ambulatory Orders Carbamazepine [Tegretol -] 280 mg GT BID 03/17/18 Cholecalciferol (Vitamin D3) [Vitamin D3] 2,000 unit GT DAILY 03/17/18 Omeprazole Magnesium [Prilosec] 20 mg GT DAILY 03/17/18 Tamsulosin HCl [Flomax -] 0.4 mg GT DAILY 03/17/18 clonazePAM [KlonoPIN -] 1 mg GT TID 03/17/18 Baclofen [Lioresal -] 10 mg PO DAILY@0600,1200 tablet 03/21/18 Budesonide [Pulmicort 0.5 mg Nebulizer -] 1 neb NEB BID 07/12/18 Diazepam [Diastat Acudial] 20 mg RC PRN PRN 07/12/18 Ipratropium/Albuterol Sulfate [Iprat-Albut 0.5-3(2.5) mg/3 ml] 3 ml IH QID PRN 07/12/18 Nystatin Ointment [Mycostatin Ointment -] 1 applic TP BID 07/12/18 Triamcinolone 0.1% Cream [Aristocort 0.1% Cream -] 1 applic TP BID 07/12/18 Scopolamine Hydrobromide [Transderm-Scop -] 1 patch TD Q72H #10 patch.td72 07/18 Mupirocin Ointment [Bactroban 2% Ointment -] 1 applic TP TID 08/11/18 levETIRAcetam [Keppra Oral Solution -] 1,500 mg GT BID cup 10/06/18 Baclofen 20 mg PO DAILY 03/08/19 Apixaban [Eliquis] 10 mg PO BID #60 tablet 03/14/19 predniSONE [Deltasone -] See Taper PO ASDIR #20 tab 03/14/19 This patient is new to me today: No Emergency Visit: Yes ED Registration Date: 03/07/19 Care time: The patient presented to the Emergency Department on the above date and was hospitalized for further evaluation of their emergent condition. Critical Care patient: No - Discharge Referral Referred to [facility] Med P.C.: No ATTENDING PHYSICIAN STATEMENT I saw and evaluated the patient. I reviewed the resident's note and discussed the case with the resident. I agree with the resident's findings and plan as documented. SUBJECTIVE: OBJECTIVE: ASSESSMENT AND PLAN:
== END 2019-03-14 17:09 | DRG 720 ==
LOC: JER 18:40 → JERBED 21:36 → J5S 03-08 08:07 → J4W 03-11 22:27
PROVIDERS: ADMIT Internal Medicine; ATTEND Internal Medicine
PROC: 05H533Z Insertion of Infusion Device into Right Subclavian Vein, Percutaneous Approach (ICD-10-PCS; principal; 2019-03-11)
PROC: B516ZZA Fluoroscopy of Right Subclavian Vein, Guidance (ICD-10-PCS; 2019-03-11)
DX: A41.89 Other specified sepsis (principal); F73 Profound intellectual disabilities; G80.0 Spastic quadriplegic cerebral palsy; Q02 Microcephaly; H47.619 Cortical blindness, unspecified side of brain; J45.909 Unspecified asthma, uncomplicated; M41.80 Other forms of scoliosis, site unspecified; R13.19 Other dysphagia; E16.2 Hypoglycemia, unspecified; R00.0 Tachycardia, unspecified; I95.89 Other hypotension; R56.9 Unspecified convulsions; J96.01 Acute respiratory failure with hypoxia; R50.9 Fever, unspecified; J98.11 Atelectasis; R33.9 Retention of urine, unspecified; R53.2 Functional quadriplegia; E88.09 Other disorders of plasma-protein metabolism, not elsewhere classified; E46 Unspecified protein-calorie malnutrition; Z68.24 Body mass index [BMI] 24.0-24.9, adult; E87.1 Hypo-osmolality and hyponatremia; E83.51 Hypocalcemia; E77.8 Other disorders of glycoprotein metabolism; E87.8 Other disorders of electrolyte and fluid balance, not elsewhere classified; N13.30 Unspecified hydronephrosis; N32.89 Other specified disorders of bladder; Z93.1 Gastrostomy status; I82.431 Acute embolism and thrombosis of right popliteal vein
CPT/HCPCS: 36415; 71045-TC-FY; 71250-TC; 71275-TC; 74177-TC; 80048; 80053; 81003; 82550; 82553; 82962; 83605; 83735; 84100; 84484; 85025; 85027; 85610; 85730; 87040; 87086; 87899; 93005; 93010; 93306-TC; 93970-TC; 94640; 94761; 99285-25; G0480; J0131; J0475; J0735; J7030

== ENCOUNTER 2019-03-26 18:28 | Inpatient (IN) | payer OTHER ==
[2019-03-26 19:07] VITALS: BMI 19.1
[2019-03-26] MEDS ORDERED: SODIUM CHLORIDE 1,334 ML IV ONE (19:12)
[2019-03-26] MEDS ORDERED: ACETAMINOPHEN 1000 MG/100 ML VIAL (NON FORMULARY) IVPB ONE (19:13)
--- NOTE | 2019-03-26 19:49 | PDOC ---
History of Present Illness <Caitlin Jerry - Last Filed: 03/26/19 21:38> - General History Source: Patient Exam Limitations: No Limitations - History of Present Illness Initial Comments: 03/26/19 21:43 28yo M with a PMH of profound intellectual disability, CP w/ spastic quadriparesis, microcephaly, intractable seizures, cortical blindness, asthma, scoliosis s/p repair (07/2006), dysphagia, hyponatremia, s/p G-tube who presents from [place] with fever, diaphoresis, rigors, tachypnea, tachycardia, and abnormal respiration. Per the nursing staff, he was found this evening to be tachycardia and fevers. Denies seizure activity at the home. Patient is non verbal thus history taking is limited. While in the emergency department, the patient had rigor activity that is consistent <Rob Porter - Last Filed: 03/26/19 21:56> - General Chief Complaint: SIRS, Suspected/Possible Stated Complaint: TACHYCARDIA Past History <Caitlin Jerry - Last Filed: 03/26/19 21:38> - Past Medical History Asthma: Yes COPD: Yes (asthma, aspiration pnuemonia and respiratory distress) Dementia: Yes (mental retardation) GI Disorders: Yes (dysphagia, s/p peg insertion) Disorders: Yes (left testicular torsion, scrotal pain) Psychiatric Problems: (hyponatremia (due to meds)) Seizures: Yes - Surgical History Orthopedic Surgery: (Left Hip Osteotomy) - Immunization History Td Vaccination: Yes TDAP Vaccination: Yes Immunization Up to Date: Yes - Suicide/Smoking/Psychosocial Hx Smoking History: Never smoked Have you smoked in the past 12 months: No Number of Cigarettes Smoked Daily: 0 Cigars Per Day: 0 Information on smoking cessation initiated: No Hx Alcohol Use: No Drug/Substance Use Hx: No Substance Use Type: None Hx Substance Use Treatment: No <Rob Porter - Last Filed: 03/26/19 21:56> - Past Medical History Allergies/Adverse Reactions: Allergies Allergy/AdvReac Type Severity Reaction Status Date / Time Beef Containing Products Allergy Unknown Verified 03/26/19 21:00 erythromycin base Allergy Verified 03/26/19 21:00 phenobarbital Allergy Verified 03/26/19 21:00 venom-honey bee Allergy Verified 03/26/19 21:00 [bee venom (honey bee)] Home Medications: Ambulatory Orders Carbamazepine [Tegretol -] 280 mg GT BID 03/17/18 Cholecalciferol (Vitamin D3) [Vitamin D3] 2,000 unit GT DAILY 03/17/18 Omeprazole Magnesium [Prilosec] 20 mg GT DAILY 03/17/18 Tamsulosin HCl [Flomax -] 0.4 mg GT DAILY 03/17/18 clonazePAM [KlonoPIN -] 1 mg GT TID 03/17/18 Baclofen [Lioresal -] 10 mg PO DAILY@0600,1200 tablet 03/21/18 Budesonide [Pulmicort 0.5 mg Nebulizer -] 1 neb NEB BID 07/12/18 Diazepam [Diastat Acudial] 20 mg RC PRN PRN 07/12/18 Ipratropium/Albuterol Sulfate [Iprat-Albut 0.5-3(2.5) mg/3 ml] 3 ml IH QID PRN 07/12/18 Nystatin Ointment [Mycostatin Ointment -] 1 applic TP BID 07/12/18 Triamcinolone 0.1% Cream [Aristocort 0.1% Cream -] 1 applic TP BID 07/12/18 Scopolamine Hydrobromide [Transderm-Scop -] 1 patch TD Q72H #10 patch.td72 07/18 Mupirocin Ointment [Bactroban 2% Ointment -] 1 applic TP TID 08/11/18 levETIRAcetam [Keppra Oral Solution -] 1,500 mg GT BID cup 10/06/18 Baclofen 20 mg PO DAILY 03/08/19 predniSONE [Deltasone -] See Taper PO ASDIR #20 tab 03/14/19 Apixaban [Eliquis] 5 mg PO BID 03/26/19 Aspirin 81 mg PEG 03/26/19 Clonidine HCl 0.2 mg PEG HS 03/26/19 *Physical Exam - Vital Signs Last Vital Signs Temp Pulse Resp BP Pulse Ox 101.7 F H 160 H 40 H 136/86 98 03/26/19 18:55 03/26/19 20:52 03/26/19 20:52 03/26/19 20:52 03/26/19 18:55 <Caitlin Jerry - Last Filed: 07/28/19 21:38> - Vital Signs Last Vital Signs Temp Pulse Resp BP Pulse Ox 101.7 F H 141 H 26 H 138/83 98 03/26/19 18:55 03/26/19 18:55 03/26/19 18:55 03/26/19 18:55 03/26/19 18:55 <Rob Porter - Last Filed: 03/26/19 21:56> ED Treatment Course - LABORATORY CBC & Chemistry Diagram: 03/26/19 21:04 03/26/19 21:04 - ADDITIONAL ORDERS Additional order review: Laboratory Results 03/26/19 03/26/19 03/26/19 21:04 20:27 20:27 PT with INR 15.10 H INR 1.28 H VBG pH 7.28 L POC VBG pCO2 33.5 L POC VBG pO2 41.3 H VBG HCO3 15.3 L VBG O2 Sat (Rafa) 61.4 L VBG Base Excess -10.1 L Lactic Acid 13.7 H* - Medications Given in the ED: ED Medications Discontinued Medications Generic Name Dose Route Start Last Admin Trade Name Mercedez PRN Reason Stop Dose Admin Acetaminophen 1,000 mg 03/26/19 19:13 03/26/19 20:47 Ofirmev Injection - IVPB 03/26/19 19:14 1,000 mg ONCE ONE Administration Diazepam 2.5 mg 03/26/19 20:31 03/26/19 20:47 Diastat *Pediatric Rectal Gel* - [place] 03/26/19 20:32 2.5 mg ONCE ONE Administration Sodium Chloride 1,334 mls @ 667 mls/hr 03/26/19 19:12 03/26/19 20:47 Normal Saline - 30 ml/kg infuse over 2 hr (1334 ml) 03/26/19 21:11 667 mls/ hr IV Administration ONCE ONE Ceftriaxone Sodium 1 gm/ 50 mls @ 100 mls/hr 03/26/19 20:31 03/26/19 21:04 Dextrose IVPB 03/26/19 21:00 100 mls/hr ONCE ONE Administration Piperacillin Sod/Tazobactam 50 mls @ 100 mls/hr 03/26/19 20:43 03/26/19 21:33 Sod 3.375 gm/ Dextrose IVPB 03/26/19 21:12 100 mls/hr ONCE ONE Administration Protocol Lorazepam 2 mg 03/26/19 20:29 03/26/19 20:47 Ativan Injection - IVPUSH 03/26/19 20:30 2 mg ONCE ONE Administration <Caitlin Jerry - Last Filed: 03/26/19 21:38> - LABORATORY CBC & Chemistry Diagram: 03/26/19 21:04 03/26/19 21:04 <Rob Porter - Last Filed: 03/26/19 21:56> *DC/Admit/Observation/Transfer - Discharge Dispostion Decision to Admit order: Yes <Caitlin Jerry - Last Filed: 03/26/19 21:38> <Rob Porter - Last Filed: 03/26/19 21:56> Diagnosis at time of Disposition: Sepsis, Seizure, Functional quadriplegia, Cerebral palsy - Discharge Dispostion Condition at time of disposition: Critical
[2019-03-26] MEDS ORDERED: LORazepam 2 MG/ML SDV VIAL ONE (20:07)
[2019-03-26] MEDS ORDERED: diazePAM 2.5 MG PEDIATRIC RECTAL APP GEL RC ONE (20:15)
[2019-03-26] MEDS ORDERED: ACETAMINOPHEN 650 MG SUPP.RECT ONE (20:17)
[2019-03-26] MEDS ORDERED: LORazepam 20 MG/10 ML 10 ML MDV ONE (20:30)
[2019-03-26] MEDS ORDERED: CEFTRIAXONE 1 GM in DEXTROSE 5%-WATER - 50 ML IVPB ONE (20:31)
[2019-03-26] MEDS ORDERED: diazePAM 2.5 MG PEDIATRIC RECTAL APP GEL PR ONE (20:31)
[2019-03-26] MEDS ORDERED: ACETAMINOPHEN INJECTION 100 ML IVPB ONE (20:34)
[2019-03-26 20:40] LABS: VENOUS PC02 33.5 mmHg (41-51); VENOUS PH 7.28 (7.31-7.41); VENOUS PO2 41.3 mmHg (30-40)
[2019-03-26] MEDS ORDERED: PIPERACILLIN/TAZOB 3.375 GM 3.375 GM in DEXTROSE 5%-WATER - 50 ML IVPB ONE (20:43)
[2019-03-26] MEDS ORDERED: CEFTRIAXONE 1 GM/50 ML BAG ONE (20:48)
[2019-03-26] MEDS ORDERED: PIPERACILLIN/TAZOB 3.375 GM 3.375 GM/50 ML BAG IVPB ONE (21:29)
[2019-03-26 21:30] LABS: BASO % 0.4 % (0-2.0); EOS % 0.1 % (0-4.5); HEMATOCRIT 43.8 % (35.4-49); HEMOGLOBIN 14.5 GM/dL (11.7-16.9); LYMPH % 8.6 % (8-40); MCHC 33.1 g/dl (32.0-35.9); MEAN CELL VOLUME 84.8 fl (80-96); MEAN PLT VOLUME 8.2 fl (7.5-11.1); MONO % 7.6 % (3.8-10.2); NEUT % 83.3 % (42.8-82.8); PLATELET COUNT 422 K/MM3 (134-434); RBC 5.17 M/mm3 (4.00-5.60); RDW 18.1 % (11.9-15.9); WHITE BLOOD COUNT 23.6 K/mm3 (4.0-10.0)
[2019-03-26 21:36] LABS: INR 1.28 (0.83-1.09); PROTHROMBIN TIME (PATIENT) 15.1 SEC (9.7-13.0)
[2019-03-26 21:50] LABS: ALBUMIN 4.6 g/dl (3.4-5.0); BILIRUBIN,TOTAL 0.2 mg/dL (0.2-1); BLOOD UREA NITROGEN 10.5 mg/dL (7-18); CALCIUM 10.6 mg/dL (8.5-10.1); CREATININE 0.9 mg/dL (0.55-1.3); POTASSIUM 5.4 mmol/L (3.5-5.1); TOT PROT 9.9 g/dl (6.4-8.2)
--- NOTE | 2019-03-26 22:23 | PDOC ---
Documentation entered by Esthela Blackburn SCRIBE, acting as scribe for Caitlin Jerry MD. Caitlin Jerry MD: This documentation has been prepared by the Bere sharma Nirvannie, SCRIBE, under my direction and personally reviewed by me in its entirety. I confirm that the documentation accurately reflects all work, treatment, procedures, and medical decision making performed by me. Attending Attestation - Resident Resident Name: Rob Porter - ED Attending Attestation I have performed the following: I have examined & evaluated the patient, The case was reviewed & discussed with the resident, I agree w/resident's findings & plan - HPI HPI: 03/26/19 21:22 The patient is a year old male, with a significant past medical history of MR, epilepsy, microcephaly, cortical blindness, asthma, scoliosis, dysphagia, spastic quadriplegic, who presents to the emergency department with, tachycardia , diaphoresis, and fever. Patients vitals at the facility was: 100.8F 98% 163/90s 198 bpm 60- Respiratory rate Primary Care Physician: [facility] - Physicial Exam PE: 03/26/19 21:42 GENERAL:+Diaphoretic. Awake. HEAD: +Microcephaly. EYES: PERRLA. LUNGS: +Rhonchorous blt. HEART: Tachycardic. ABDOMEN: +Peg tube in place and clean. Soft, nontender, normoactive bowel sounds. No guarding, no rebound. No masses EXTREMITIES: +Contracted blt UE. LE decreased ROM and stunted. NEUROLOGICAL: +Severe MR. SKIN: Warm, Dry, normal turgor, no rashes or lesions noted. - Medical Decision Making 03/27/19 01:19 Pt comes with tachycardia, sepsis, fever. He has a peg tube and likely an aspiration pneumonia. He came with tachycardia to 200bpm. After hydration, antiseizure meds, zosyn and IV tylenol, and he went down to 90bpm. Pt looking better and more comfortable. He was admitted to the hospitalist for sepsis. His initial lactic acd was 13+ and 2nd LA was 2+ 03/27/19 01:22 Levels of antiseizure meds are normal/pending. Pt has WBC of 24
[2019-03-26 22:38] LABS: URINE APPEARANCE CLOUDY; URINE BILIRUBIN NEGATIVE (NEGATIVE); URINE COLOR YELLOW; URINE GLUCOSE (UA) NEGATIVE (NEGATIVE); URINE KETONE NEGATIVE (NEGATIVE); URINE LEUK ESTERASE NEGATIVE (NEGATIVE); URINE NITRITE NEGATIVE (NEGATIVE); URINE PROTEIN NEGATIVE (NEGATIVE); URINE UROBILINOGEN 0.2 mg/dL (0.2-1.0)
[2019-03-26 22:50] LABS: ARTERIAL BLD GAS O2 SATURATION 99.6 % (95-98); ARTERIAL BLOOD GAS BASE EXCESS -1.9 meq/l (-2-2); ARTERIAL BLOOD GAS PCO2 33.9 mmHg (35-45); ARTERIAL BLOOD GAS PO2 203 mmHg (80-105); ARTERIAL BLOOD GAS pH 7.42 (7.35-7.45)
[2019-03-26 22:54] LABS: ALLENS TEST POSITIVE
--- NOTE | 2019-03-26 23:03 | HP ---
<Rupa Judge - Last Filed: 03/27/19 07:40> CHIEF COMPLAINT: fever, tachypnea PCP: HISTORY OF PRESENT ILLNESS: Mr. Lara is a 28yo male with history of CP w/ spastic quadriparesis, inretractable seizures, cortical blindness, scoliosis s/p repair 2005, and dysphagia who presents with fever and tachypnea from [facility]. An increase in respiration was noted today at 4:00pm. Temp was not taken prior to arrival. Aide at bedside denies any recent changes in behavior. No witnessed seizure. Pt was discharged from here on 03/15 with Augmentin and Prednisone taper for likely aspiration pneumonia as well as Eliquis for R popliteal DVT that was diagnosed on 03/11. Pt is non-verbal. ER course was notable for: (1) ceftriaxone and Zosyn admin (2) CXR with no acute changes from 03/08/19 (3) IV Tylenol for fever (4) NS 667mL/hr x 2 hours Recent Travel: no PAST MEDICAL HISTORY: 1. CP w/ spastic quadriparesis 2. inretractable seizures 3. cortical blindness 4. scoliosis s/p repair 2005 5. dysphagia PAST SURGICAL HISTORY: Kong rods for scoliosis gastrostomy Social History: Smoking: no Alcohol: no Drugs: no Family History: none Allergies Beef Containing Products Allergy (Unknown, Verified 03/26/19 21:00) erythromycin base Allergy (Verified 03/26/19 21:00) phenobarbital Allergy (Verified 03/26/19 21:00) venom-honey bee [bee venom (honey bee)] Allergy (Verified 03/26/19 21:00) HOME MEDICATIONS: Home Medications Medication Instructions Recorded Carbamazepine [Tegretol -] 280 mg GT BID 03/17/18 Cholecalciferol (Vitamin D3) 2,000 unit GT DAILY 03/17/18 [Vitamin D3] Omeprazole Magnesium [Prilosec] 20 mg GT DAILY 03/17/18 Tamsulosin HCl [Flomax -] 0.4 mg GT DAILY 03/17/18 clonazePAM [KlonoPIN -] 1 mg GT TID 03/17/18 Baclofen [Lioresal -] 10 mg PO DAILY@0600,1200 tablet 03/21/18 Budesonide [Pulmicort 0.5 mg 1 neb NEB BID 07/12/18 Nebulizer -] Diazepam [Diastat Acudial] 20 mg RC PRN PRN 07/12/18 Ipratropium/Albuterol Sulfate 3 ml IH QID PRN 07/12/18 [Iprat-Albut 0.5-3(2.5) mg/3 ml] Nystatin Ointment [Mycostatin 1 applic TP BID 07/12/18 Ointment -] Triamcinolone 0.1% Cream 1 applic TP BID 07/12/18 [Aristocort 0.1% Cream -] Scopolamine Hydrobromide 1 patch TD Q72H #10 patch.td72 07/18/18 [Transderm-Scop -] Mupirocin Ointment [Bactroban 2% 1 applic TP TID 08/11/18 Ointment -] levETIRAcetam [Keppra Oral 1,500 mg GT BID cup 10/06/18 Solution -] Baclofen 20 mg PO DAILY 03/08/19 predniSONE [Deltasone -] See Taper PO ASDIR #20 tab 03/14/19 Apixaban [Eliquis] 5 mg PO BID 03/26/19 Aspirin 81 mg PEG 03/26/19 Clonidine HCl 0.2 mg PEG HS 03/26/19 REVIEW OF SYSTEMS CONSTITUTIONAL: Present: fever, diaphoresis Absent: weight change HEENT: Absent: unable to obtain CARDIOVASCULAR: Absent: unable to obtain RESPIRATORY: Present: cough, tachypnea GASTROINTESTINAL: Absent: vomiting GENITOURINARY: Absent: unable to obtain MUSCULOSKELETAL: Absent: joint swelling SKIN: Absent: rash, itching, pallor HEMATOLOGIC/IMMUNOLOGIC: Absent: easy bleeding, easy bruising ENDOCRINE: Absent: unexplained weight gain, unexplained weight loss, heat intolerance, cold intolerance NEUROLOGIC: Absent: unable to obtain PSYCHIATRIC: Absent: unable to obtain PHYSICAL EXAMINATION Vital Signs - 24 hr 03/26/19 03/26/19 03/26/19 18:55 20:41 20:52 Temperature 101.7 F H Pulse Rate 141 H Pulse Rate [ 190 H 160 H Apical] Respiratory 26 H 50 H 40 H Rate Blood Pressure 138/83 Blood Pressure 195/116 H 136/86 [Right Arm] O2 Sat by Pulse 98 Oximetry (%) 03/26/19 22:43 Temperature Pulse Rate Pulse Rate [ 114 H Apical] Respiratory 24 H Rate Blood Pressure Blood Pressure [Right Arm] O2 Sat by Pulse Oximetry (%) GENERAL: Awake and alert, not in distress HEAD: Normal with no signs of trauma. EYES: Pupils equal, round and reactive to light, extraocular movements intact, sclera anicteric, conjunctiva clear. No lid lag. EARS, NOSE, THROAT: Ears normal, nares patent. Moist mucous membranes. NECK: Normal range of motion, supple without lymphadenopathy, JVD, or masses. LUNGS: Wheezing noted bilaterally. No accessory muscle use. HEART: Tachycardic, normal rhythm, normal S1 and S2 without murmur, rub or gallop. ABDOMEN: Soft, nontender, not distended, normoactive bowel sounds, no guarding, no rebound, no masses. G-tube placed. MUSCULOSKELETAL: limbs contracted UPPER EXTREMITIES: 2+ pulses, warm, well-perfused. No cyanosis. No clubbing. No peripheral edema. LOWER EXTREMITIES: 2+ pulses, warm, well-perfused. No calf tenderness. Minimal pedal edema bilaterally. NEUROLOGICAL: Cranial nerves II-XII intact. PSYCHIATRIC: Cooperative SKIN: Warm, dry, normal turgor, no rashes or lesions noted, normal capillary refill. Laboratory Results - last 24 hr 03/26/19 03/26/19 03/26/19 20:27 20:27 21:04 WBC 23.6 H RBC 5.17 Hgb 14.5 Hct 43.8 D MCV 84.8 MCH 28.0 MCHC 33.1 RDW 18.1 H Plt Count 422 D MPV 8.2 Absolute Neuts (auto) 19.7 H Neutrophils % 83.3 H D Lymphocytes % 8.6 D Monocytes % 7.6 Eosinophils % 0.1 D Basophils % 0.4 Nucleated RBC % 0 PT with INR INR Anticoagulation Therapy Puncture Site ABG pH ABG pCO2 at Pt Temp ABG pO2 at Pt Temp ABG HCO3 ABG O2 Sat (Measured) ABG O2 Content ABG Base Excess Richy Test VBG pH 7.28 L POC VBG pCO2 33.5 L POC VBG pO2 41.3 H VBG HCO3 15.3 L VBG O2 Sat (Rafa) 61.4 L VBG Base Excess -10.1 L O2 Delivery Device Oxygen Flow Rate Vent Mode Vent Rate Mechanical Rate Pressure Support Vent Sodium Potassium Chloride Carbon Dioxide Anion Gap BUN Creatinine Est GFR (CKD-EPI)AfAm Est GFR (CKD-EPI)NonAf Random Glucose Lactic Acid 13.7 H* Calcium Total Bilirubin AST ALT Alkaline Phosphatase Total Protein Albumin Urine Color Urine Appearance Urine pH Ur Specific Perkins Urine Protein Urine Glucose (UA) Urine Ketones Urine Blood Urine Nitrite Urine Bilirubin Urine Urobilinogen Ur Leukocyte Esterase Carbamazepine 03/26/19 03/26/19 03/26/19 21:04 21:04 21:15 WBC RBC Hgb Hct MCV MCH MCHC RDW Plt Count MPV Absolute Neuts (auto) Neutrophils % Lymphocytes % Monocytes % Eosinophils % Basophils % Nucleated RBC % PT with INR 15.10 H INR 1.28 H Anticoagulation Therapy Puncture Site ABG pH ABG pCO2 at Pt Temp ABG pO2 at Pt Temp ABG HCO3 ABG O2 Sat (Measured) ABG O2 Content ABG Base Excess Richy Test VBG pH POC VBG pCO2 POC VBG pO2 VBG HCO3 VBG O2 Sat (Rafa) VBG Base Excess O2 Delivery Device Oxygen Flow Rate Vent Mode Vent Rate Mechanical Rate Pressure Support Vent Sodium 139 Potassium 5.4 H Chloride 102 Carbon Dioxide 17 L Anion Gap 21 H BUN 10.5 Creatinine 0.9 Est GFR (CKD-EPI)AfAm 135.19 Est GFR (CKD-EPI)NonAf 116.64 Random Glucose 99 Lactic Acid Calcium 10.6 H Total Bilirubin 0.2 AST 29 ALT 38 Alkaline Phosphatase 159 H Total Protein 9.9 H Albumin 4.6 Urine Color Yellow Urine Appearance Cloudy Urine pH 8.0 Ur Specific Perkins 1.010 Urine Protein Negative Urine Glucose (UA) Negative Urine Ketones Negative Urine Blood Trace Urine Nitrite Negative Urine Bilirubin Negative Urine Urobilinogen 0.2 Ur Leukocyte Esterase Negative Carbamazepine 03/26/19 03/26/19 21:20 22:18 WBC RBC Hgb Hct MCV MCH MCHC RDW Plt Count MPV Absolute Neuts (auto) Neutrophils % Lymphocytes % Monocytes % Eosinophils % Basophils % Nucleated RBC % PT with INR INR Anticoagulation Therapy No Result Required. Puncture Site Right radial ABG pH 7.42 ABG pCO2 at Pt Temp 33.9 L ABG pO2 at Pt Temp 203 H ABG HCO3 21.4 L ABG O2 Sat (Measured) 99.6 H ABG O2 Content 18.6 ABG Base Excess -1.9 Richy Test Positive VBG pH POC VBG pCO2 POC VBG pO2 VBG HCO3 VBG O2 Sat (Rafa) VBG Base Excess O2 Delivery Device Nrb mask Oxygen Flow Rate 100 Vent Mode No Result Required. Vent Rate No Result Required. Mechanical Rate No Result Required. Pressure Support Vent No Result Required. Sodium Potassium Chloride Carbon Dioxide Anion Gap BUN Creatinine Est GFR (CKD-EPI)AfAm Est GFR (CKD-EPI)NonAf Random Glucose Lactic Acid Calcium Total Bilirubin AST ALT Alkaline Phosphatase Total Protein Albumin Urine Color Urine Appearance Urine pH Ur Specific Perkins Urine Protein Urine Glucose (UA) Urine Ketones Urine Blood Urine Nitrite Urine Bilirubin Urine Urobilinogen Ur Leukocyte Esterase Carbamazepine 4.7 ASSESSMENT/PLAN: The pt is a 28yo male with intellectual disabilities, intractable seizures, hx of aspiration pneumonia who presents from nursing facility with fevers and tachypnea. 1. leukocytosis- WBC 23.6. temp 101.7. Also tachypneic (50) and hypertensive ( max 195/116). UA negative. CXR appears improved from last admission. No overt pneumonia appreciated. Urine and blood cultures pending. Pt has hx of seizures with no recent known activity. If leukocytosis resolves quickly then may be due to an unwitnessed seizure. Pt was on Zosyn followed by Augmentin on last admission. Given Zosyn in ED. -monitor CBC -cover for pneumonia with Vanc and Zosyn -[employer] Ag and sputum culture -EEG for seizure activity 2. lactic acidosis- 13.7-->2.6. Could be from infection vs seizure. pH 7.42, Bicarb 21.4, pCO2 33.9, pO2 203. Metabolic acidosis with respiratory compensation. -trend lactic acid -CBC -EEG 3. seizure disorder- -check carbamazepine and Keppra levels -continue home meds DVT Ppe continue Eliquis FEN IV NS monitor bicarb NPO Visit type - Emergency Visit Emergency Visit: Yes ED Registration Date: 03/26/19 Care time: The patient presented to the Emergency Department on the above date and was hospitalized for further evaluation of their emergent condition. - New Patient This patient is new to me today: Yes Date on this admission: 03/26/19 - Critical Care Critical Care patient: No ATTENDING PHYSICIAN STATEMENT I saw and evaluated the patient. I reviewed the resident's note and discussed the case with the resident. I agree with the resident's findings and plan as documented. SUBJECTIVE: OBJECTIVE: ASSESSMENT AND PLAN: <Rob Zuniga - Last Filed: 05/25/19 03:00> PMH PSH,reviewed and are as per chart Patient is nonverbal. Despite resident documentation it is physically impossible for him to communicate ROS. Social history is negative for active IVDU, red-flag social concerns. Stiven reisdabby. Family history negative for sudden cardiac , discussed at length and reviewed and was otherwise noncontributory. ATTENDING PHYSICIAN STATEMENT I saw and evaluated the patient. I reviewed the resident's note and discussed the case with the resident. I agree with the resident's findings and plan as documented. SUBJECTIVE: OBJECTIVE: ASSESSMENT AND PLAN:
[2019-03-26] MEDS ORDERED: VANCOMYCIN HCL 1,250 MG in DEXTROSE 5%-WATER - 250 ML IVPB ONE (23:15)
[2019-03-26 23:22] LABS: PLATELET ESTIMATE NORMAL
[2019-03-26] MEDS: LACTATED RINGERS SOLUTION 1,000 ML/1,000 ML INFUS.BAG IV SCH (23:33)
[2019-03-26] MEDS ORDERED: ALBUTEROL SO4 2.5/IPRATROPIUM 0.5 INH SOL 3 ML VIAL.NEB. NEB PRN (23:59)
[2019-03-27] MEDS: levETIRAcetam 500 MG/5 ML ORAL SOLUTION (UNIT-DOSE CUPS) GT SCH ×3 (01:48→21:06)
[2019-03-27] MEDS: clonazePAM 0.5 MG TABLET GT SCH ×4 (01:48→21:06)
[2019-03-27] MEDS: carBAMazepine 200 MG/10 ML UNIT-DOSE CUP GT SCH ×3 (01:49→21:06)
[2019-03-27] MEDS ORDERED: PIPERACILLIN/TAZOB 3.375 GM 3.375 GM in DEXTROSE 5%-WATER - 50 ML IVPB SCH (04:00)
[2019-03-27] MEDS ORDERED: PIPERACILLIN/TAZOBACTAM 3.375 GM VIAL IVPB ONE ×3 (04:16→14:53)
[2019-03-27] MEDS ORDERED: DEXTROSE 5%-WATER - 50 ML IVPB ONE ×3 (04:17→14:53)
[2019-03-27] MEDS: PIPERACILLIN/TAZOB 3.375 GM 3.375 GM in DEXTROSE 5%-WATER - 50 ML IVPB SCH ×5 (04:34→20:36)
--- NOTE | 2019-03-27 06:13 | PN ---
Teaching Attending Note Name of Resident: Rupa Judge ATTENDING PHYSICIAN STATEMENT I saw and evaluated the patient. I reviewed the resident's note and discussed the case with the resident. I agree with the resident's findings and plan as documented. Seen and examined; please refer to resident note for further historical information. Yessy, patient presents with severe sinus tachycardia, lactic acidosis, and documented desats but high PaO2 on ABG which is conflicting. Tachycardia was fluid responsive and his lactic acidosis resolved. Very high risk for aspiration but given relative lack of findings on CXR (rehydrating and rechecking) and ABG will monitor SPO2 carefully, consider repeating ABG, and consider other causes of lactic acidosis. If CXR remains clear, no diarrhea, no UTI, no meningeal signs, no abdominal pain. Need nursing assistance to recheck for decub but no grossly large issues on recent admit. Will admit to medicine with ID consultation, consider pulm consult, observe for seizures as this could be cause of a lactic acidosis in an epileptic nonverbal patient; if he had a small seizure and aspirated,unwitnessed, etc. Unfortunately couldn't speak to anyone who was present prior to him coming in who may have seen. VS labs imaging reviewed NAD, AAO, resting in bed sinus tachy s1/2 NT ND +BS Lungs with some bronchial sounds and occasional coarse sounds but poor effort Neuro exam unchanged from prior EKG reviewed Tele reivewed Prior imaging/cardiac studies reviewed ASSESSMENT AND PLAN: Patient presents with lactic acidosis and tachycardia with high risk for aspiration but normal PaO2 on ABG on NRB (he had it off half his face saturating well during my assessment, though did have some documented desats). No witnessed seixure but history of epilepsy. On empiric abx and consulting his ID specialist. Monitor for seizures; can check EEG and consult neurology; try to talk to [facility] day team to elucidate surrounding events; would be late for a prolactin but may be worth checking a CK which could be elevated post seizure even with hydration. Try to wean to minimum required O2 and consider checking ABG again. Followup labs. # Lactic acidosis, sinus tachycardia, r/o sepsis 2/2 aspiration, etc. (PaO2 noted) # Metabolic acidosis with respiratory compensation 2/2 above # Chronic aspiration # Hx nonverbal MR/CP; functional quadraplegia #
[2019-03-27 08:02] LABS: BASO % 0.4 % (0-2.0); EOS % 0.6 % (0-4.5); HEMATOCRIT 32.7 % (35.4-49); LYMPH % 11.1 % (8-40); MCH 28.6 pg (25.7-33.7); MCHC 33.8 g/dl (32.0-35.9); MEAN CELL VOLUME 84.5 fl (80-96); MEAN PLT VOLUME 7.2 fl (7.5-11.1); MONO % 8.9 % (3.8-10.2); PLATELET COUNT 243 K/MM3 (134-434); RBC 3.87 M/mm3 (4.00-5.60); RDW 17.9 % (11.9-15.9)
[2019-03-27] MEDS: BUDESONIDE 0.5 MG/2 ML INH SUSP VIAL NEB SCH ×2 (08:17→20:32)
[2019-03-27 08:34] LABS: ALBUMIN 2.7 g/dl (3.4-5.0); BILIRUBIN,TOTAL 0.3 mg/dL (0.2-1); BLOOD UREA NITROGEN 10.1 mg/dL (7-18); CALCIUM 7.6 mg/dL (8.5-10.1); CREATININE 0.3 mg/dL (0.55-1.3); POTASSIUM 3.5 mmol/L (3.5-5.1)
[2019-03-27 08:39] LABS: TOT PROT 5.8 g/dl (6.4-8.2)
[2019-03-27] MEDS ORDERED: PT OWN MED DRAWER 7, Y5N ONE ×2 (09:22→21:02)
[2019-03-27] MEDS: APIXABAN 5 MG TABLET PO SCH ×2 (09:34→21:06)
[2019-03-27] MEDS ORDERED: ENOXAPARIN NA (PORCINE) 40 MG/0.4 ML DISP.SYRIN SQ SCH (10:00)
[2019-03-27] MEDS ORDERED: VANCOMYCIN HCL 1,250 MG in DEXTROSE 5%-WATER - 250 ML IVPB SCH (10:00)
--- NOTE | 2019-03-27 10:09 | EKG ---
Test Reason : Blood Pressure : / mmHG Vent. Rate : 141 BPM Atrial Rate : 141 BPM P-R Int : 136 ms QRS Dur : 082 ms QT Int : 284 ms P-R-T Axes : 043 142 011 degrees QTc Int : 434 ms SINUS TACHYCARDIA POSSIBLE LATERAL INFARCT , AGE UNDETERMINED POSSIBLE INFERIOR INFARCT (CITED ON OR BEFORE 11-MAR-2019) ABNORMAL ECG WHEN COMPARED WITH ECG OF 11-MAR-2019 15:42, VENT. RATE HAS INCREASED Confirmed by JUAN PABLO PATRICK, ANJU ([id number]) on 03/27/2019 10:09:27 AM Referred By: Confirmed By:ANJU ALMEIDA MD
[2019-03-27] MEDS: TAMSULOSIN HCL 0.4 MG CAP NR SCH (11:00)
--- NOTE | 2019-03-27 12:19 | PN ---
Teaching Attending Note Name of Resident: Beverley Haney ATTENDING PHYSICIAN STATEMENT I saw and evaluated the patient. I reviewed the resident's note and discussed the case with the resident. I agree with the resident's findings and plan as documented. SUBJECTIVE: unable to obtain hx,but aid at bedside confirms that patient is now at his baseline, comfortable and gurgling. she was not here yesterday to describe what happened . stiven reilly reviewed. fever , tachypnea , and resp distresss. OBJECTIVE: NAD CV: RRR, no mRG lungs: course crackles and rales b/l Abd: NL BS. slightly distended. NT. Ext : muscle atrophy and hyperpigmentation over the L leg. No edema or erythema Skin: No decubitus ulcers ASSESSMENT AND PLAN: 28 y/o man with h/o MR, cortical blindness, HTN, microcephaly, cerebral palsy, quadriplegia, seizure disorder, scoliosis, hyponatremia, other medical problems , and recent hospitalization for PNA and DVT , who presented from [facility] due to fever and resp distress again. 1- Possible sepsis: suspected source is lung. but wit the very elevated lactic acid, need to r/o Abd source as well ( ischemia VS infection ) - order CT of chest and Abd/Pelvis - cont with zosyn, treating empirically for aspiration PNA and any abdominal source - repeat lactic acid. - follow blood cx - No decubes on sacral area. - ID consult - breathing seems to be at base line and with no O2 requirements. 2- Acute resp distress at facility: possible aspiration/asp PNA VS mucus plugging. per aid breathing is at base line follow chest CT. add mucomyst 3- H/o Seizures: doubt he had a seizure but possible - cont his home meds 4- rRecent diagnosis of DVT: - cont Eliquis 5- H/o HTN, was hypotensive last admissionand lconidine was discontinued. will confirm with [facility] if it had been restarted. Will contact [facility] for further details .
--- NOTE | 2019-03-27 14:02 | PN ---
Progress Note (short form) - Note Progress Note: ID CONSULT DICTATED FEVER/ LEUKOCYTOSIS / LACTIC ACIDOSIS ? RECURRENT ASPIRATION CP/MR AWAIT C/S CONTINUE EMPIRIC ZOSYN
--- NOTE | 2019-03-27 17:48 | CONS ---
DATE OF CONSULTATION: DATE OF DICTATION: 03/27/2019 INFECTIOUS DISEASE CONSULTATION HISTORY OF PRESENT ILLNESS: The patient is a 28-year-old male with history of profound mental retardation, microcephaly, seizure disorder, evaluated for sepsis. History was obtained from the chart, as he cannot give a history. He was admitted from [facility] ([place] on March 26, 2019, with reports of tachycardia, fever, and diaphoresis. He was evaluated in the emergency room where is temperature was 101.7, white blood cell count markedly elevated at 23,000. He also has lactic acid of 5.0. Cultures were obtained. He was empirically treated with Zosyn and vancomycin. Patient is unable to give any additional history. His bedside sitter reports that he had been congested at the facility and is noted to have cough. He was hospitalized at [facility] from March 07 through March 14 with aspiration pneumonia. A CAT scan at that time showed atelectasis involving the right upper and both lower lobes. PAST MEDICAL HISTORY: Positive for microcephaly, profound mental retardation, seizure disorder, asthma, scoliosis. PAST SURGICAL HISTORY: Status post feeding gastrostomy and Kong rods. ALLERGIES: ERYTHROMYCIN, PHENOBARBITAL, and BEEF-CONTAINING PRODUCTS. LABORATORY DATA: White count on admission 23,000, 83 neutrophils, 19 lymphocytes, 8 monocytes. Hematocrit 32.7, platelet count 243. BUN 10, creatinine 0.3. Lactic acid 5.0. Urinalysis negative. Liver enzymes normal. PHYSICAL EXAMINATION: General: On exam, he is awake, he is not verbally responsive. He is congested. Vital signs: Temperature 98.7, blood pressure 110/73, pulse 94 regular, respirations 20 per minute. HEENT: Sclerae anicteric. Cardiovascular: Heart sounds S1, S2. Lungs: Bilateral rhonchi. Abdomen: Soft. Feeding gastrostomy tube site no erythema or tenderness. Extremities: Contracted. IMPRESSION: 1. Fever, leukocytosis, lactic acidosis consistent with sepsis. 2. Rule out recurrent aspiration pneumonia. 3. Rule out occult intraabdominal focus. Await cultures. CAT scans have been ordered. Continue empiric coverage. Healthcare acquired associated pathogens with Zosyn. Aspiration precautions. Will follow. Thank you for the kind referral. SUNITA DALAL M.D. OMARI/[id number]
--- NOTE | 2019-03-27 18:26 | PN ---
Physical Exam: SUBJECTIVE: Patient seen and examined by the bedside, AOx0 OBJECTIVE: Vital Signs Period Temp Pulse Resp BP Sys/Don Pulse Ox Last 24 Hr 98.3 F-101.7 F 87-190 20-50 110-195/57-116 96-100 GENERAL: The patient is awake, AOx0 HEAD: Microcephalic features EYES: PERRL, extraocular movements intact, sclera anicteric, conjunctiva clear. No ptosis. NECK: Trachea midline, full range of motion, supple. LUNGS: unable to appreciate breath sounds due to patient actively gurgling HEART: unable to appreciate heart soudnds due to patient gurgling ABDOMEN: J tube present,Soft, nontender, nondistended, normoactive bowel sounds , no guarding, no rebound, no hepatosplenomegaly, no masses. EXTREMITIES: 2+ pulses, warm, well-perfused, no edema. NEUROLOGICAL: gait and speech not observed since patient unable to do either SKIN: Warm, dry, normal turgor, no rashes or lesions noted Laboratory Results - last 24 hr 03/26/19 03/26/19 03/26/19 20:27 20:27 21:04 WBC 23.6 H RBC 5.17 Hgb 14.5 Hct 43.8 D MCV 84.8 MCH 28.0 MCHC 33.1 RDW 18.1 H Plt Count 422 D MPV 8.2 Absolute Neuts (auto) 19.7 H Total Counted 100 Neutrophils % 83.3 H D Neutrophils % (Manual) 86.0 H Lymphocytes % 8.6 D Lymphocytes % (Manual) 7.0 L D Monocytes % 7.6 Monocytes % (Manual) 7 D Eosinophils % 0.1 D Basophils % 0.4 Nucleated RBC % 0 Platelet Estimate Normal Platelet Comment No clumping noted PT with INR INR Anticoagulation Therapy Puncture Site ABG pH ABG pCO2 at Pt Temp ABG pO2 at Pt Temp ABG HCO3 ABG O2 Sat (Measured) ABG O2 Content ABG Base Excess Richy Test VBG pH 7.28 L POC VBG pCO2 33.5 L POC VBG pO2 41.3 H VBG HCO3 15.3 L VBG O2 Sat (Rafa) 61.4 L VBG Base Excess -10.1 L O2 Delivery Device Oxygen Flow Rate Vent Mode Vent Rate Mechanical Rate Pressure Support Vent Sodium Potassium Chloride Carbon Dioxide Anion Gap BUN Creatinine Est GFR (CKD-EPI)AfAm Est GFR (CKD-EPI)NonAf Random Glucose Lactic Acid 13.7 H* Calcium Magnesium Total Bilirubin GGT AST ALT Alkaline Phosphatase Creatine Kinase Creatine Kinase Index CK-MB (CK-2) Troponin I Total Protein Albumin Urine Color Urine Appearance Urine pH Ur Specific Prospect Urine Protein Urine Glucose (UA) Urine Ketones Urine Blood Urine Nitrite Urine Bilirubin Urine Urobilinogen Ur Leukocyte Esterase Carbamazepine 03/26/19 03/26/19 03/26/19 21:04 21:04 21:15 WBC RBC Hgb Hct MCV MCH MCHC RDW Plt Count MPV Absolute Neuts (auto) Total Counted Neutrophils % Neutrophils % (Manual) Lymphocytes % Lymphocytes % (Manual) Monocytes % Monocytes % (Manual) Eosinophils % Basophils % Nucleated RBC % Platelet Estimate Platelet Comment PT with INR 15.10 H INR 1.28 H Anticoagulation Therapy Puncture Site ABG pH ABG pCO2 at Pt Temp ABG pO2 at Pt Temp ABG HCO3 ABG O2 Sat (Measured) ABG O2 Content ABG Base Excess Richy Test VBG pH POC VBG pCO2 POC VBG pO2 VBG HCO3 VBG O2 Sat (Rafa) VBG Base Excess O2 Delivery Device Oxygen Flow Rate Vent Mode Vent Rate Mechanical Rate Pressure Support Vent Sodium 139 Potassium 5.4 H Chloride 102 Carbon Dioxide 17 L Anion Gap 21 H BUN 10.5 Creatinine 0.9 Est GFR (CKD-EPI)AfAm 135.19 Est GFR (CKD-EPI)NonAf 116.64 Random Glucose 99 Lactic Acid Calcium 10.6 H Magnesium Total Bilirubin 0.2 GGT AST 29 ALT 38 Alkaline Phosphatase 159 H Creatine Kinase Creatine Kinase Index CK-MB (CK-2) Troponin I Total Protein 9.9 H Albumin 4.6 Urine Color Yellow Urine Appearance Cloudy Urine pH 8.0 Ur Specific Prospect 1.010 Urine Protein Negative Urine Glucose (UA) Negative Urine Ketones Negative Urine Blood Trace Urine Nitrite Negative Urine Bilirubin Negative Urine Urobilinogen 0.2 Ur Leukocyte Esterase Negative Carbamazepine 03/26/19 03/26/19 03/26/19 21:20 22:18 22:41 WBC RBC Hgb Hct MCV MCH MCHC RDW Plt Count MPV Absolute Neuts (auto) Total Counted Neutrophils % Neutrophils % (Manual) Lymphocytes % Lymphocytes % (Manual) Monocytes % Monocytes % (Manual) Eosinophils % Basophils % Nucleated RBC % Platelet Estimate Platelet Comment PT with INR INR Anticoagulation Therapy No Result Required. Puncture Site Right radial ABG pH 7.42 ABG pCO2 at Pt Temp 33.9 L ABG pO2 at Pt Temp 203 H ABG HCO3 21.4 L ABG O2 Sat (Measured) 99.6 H ABG O2 Content 18.6 ABG Base Excess -1.9 Richy Test Positive VBG pH POC VBG pCO2 POC VBG pO2 VBG HCO3 VBG O2 Sat (Rafa) VBG Base Excess O2 Delivery Device Nrb mask Oxygen Flow Rate 100 Vent Mode No Result Required. Vent Rate No Result Required. Mechanical Rate No Result Required. Pressure Support Vent No Result Required. Sodium Potassium Chloride Carbon Dioxide Anion Gap BUN Creatinine Est GFR (CKD-EPI)AfAm Est GFR (CKD-EPI)NonAf Random Glucose Lactic Acid 2.6 H* Calcium Magnesium Total Bilirubin GGT AST ALT Alkaline Phosphatase Creatine Kinase Creatine Kinase Index CK-MB (CK-2) Troponin I Total Protein Albumin Urine Color Urine Appearance Urine pH Ur Specific Prospect Urine Protein Urine Glucose (UA) Urine Ketones Urine Blood Urine Nitrite Urine Bilirubin Urine Urobilinogen Ur Leukocyte Esterase Carbamazepine 4.7 03/27/19 03/27/19 03/27/19 01:30 01:30 01:30 WBC RBC Hgb Hct MCV MCH MCHC RDW Plt Count MPV Absolute Neuts (auto) Total Counted Neutrophils % Neutrophils % (Manual) Lymphocytes % Lymphocytes % (Manual) Monocytes % Monocytes % (Manual) Eosinophils % Basophils % Nucleated RBC % Platelet Estimate Platelet Comment PT with INR INR Anticoagulation Therapy Puncture Site ABG pH ABG pCO2 at Pt Temp ABG pO2 at Pt Temp ABG HCO3 ABG O2 Sat (Measured) ABG O2 Content ABG Base Excess Richy Test VBG pH POC VBG pCO2 POC VBG pO2 VBG HCO3 VBG O2 Sat (Rafa) VBG Base Excess O2 Delivery Device Oxygen Flow Rate Vent Mode Vent Rate Mechanical Rate Pressure Support Vent Sodium Cancelled Potassium Cancelled Chloride Cancelled Carbon Dioxide Cancelled Anion Gap Cancelled BUN Cancelled Creatinine Cancelled Est GFR (CKD-EPI)AfAm Cancelled Est GFR (CKD-EPI)NonAf Cancelled Random Glucose Cancelled Lactic Acid Calcium Cancelled Magnesium Total Bilirubin GGT AST ALT Alkaline Phosphatase Creatine Kinase Cancelled Creatine Kinase Index CK-MB (CK-2) Troponin I Cancelled Total Protein Albumin Urine Color Urine Appearance Urine pH Ur Specific [place] Urine Protein Urine Glucose (UA) Urine Ketones Urine Blood Urine Nitrite Urine Bilirubin Urine Urobilinogen Ur Leukocyte Esterase Carbamazepine 03/27/19 03/27/19 03/27/19 01:30 07:30 07:30 WBC 9.0 RBC 3.87 L Hgb 11.0 L Hct 32.7 L D MCV 84.5 MCH 28.6 MCHC 33.8 RDW 17.9 H Plt Count 243 D MPV 7.2 L D Absolute Neuts (auto) 7.1 Total Counted Neutrophils % 79.0 Neutrophils % (Manual) Lymphocytes % 11.1 D Lymphocytes % (Manual) Monocytes % 8.9 Monocytes % (Manual) Eosinophils % 0.6 D Basophils % 0.4 Nucleated RBC % 0 Platelet Estimate Platelet Comment PT with INR INR Anticoagulation Therapy Puncture Site ABG pH ABG pCO2 at Pt Temp ABG pO2 at Pt Temp ABG HCO3 ABG O2 Sat (Measured) ABG O2 Content ABG Base Excess Richy Test VBG pH POC VBG pCO2 POC VBG pO2 VBG HCO3 VBG O2 Sat (Rafa) VBG Base Excess O2 Delivery Device Oxygen Flow Rate Vent Mode Vent Rate Mechanical Rate Pressure Support Vent Sodium Potassium Chloride Carbon Dioxide Anion Gap BUN Creatinine Est GFR (CKD-EPI)AfAm Est GFR (CKD-EPI)NonAf Random Glucose Lactic Acid 5.0 H* Calcium Magnesium Total Bilirubin GGT Cancelled AST ALT Alkaline Phosphatase Creatine Kinase Creatine Kinase Index CK-MB (CK-2) Troponin I Total Protein Albumin Urine Color Urine Appearance Urine pH Ur Specific [place] Urine Protein Urine Glucose (UA) Urine Ketones Urine Blood Urine Nitrite Urine Bilirubin Urine Urobilinogen Ur Leukocyte Esterase Carbamazepine 03/27/19 03/27/19 07:30 13:42 WBC RBC Hgb Hct MCV MCH MCHC RDW Plt Count MPV Absolute Neuts (auto) Total Counted Neutrophils % Neutrophils % (Manual) Lymphocytes % Lymphocytes % (Manual) Monocytes % Monocytes % (Manual) Eosinophils % Basophils % Nucleated RBC % Platelet Estimate Platelet Comment PT with INR INR Anticoagulation Therapy Puncture Site ABG pH ABG pCO2 at Pt Temp ABG pO2 at Pt Temp ABG HCO3 ABG O2 Sat (Measured) ABG O2 Content ABG Base Excess Richy Test VBG pH POC VBG pCO2 POC VBG pO2 VBG HCO3 VBG O2 Sat (Rafa) VBG Base Excess O2 Delivery Device Oxygen Flow Rate Vent Mode Vent Rate Mechanical Rate Pressure Support Vent Sodium 139 Potassium 3.5 Chloride 106 Carbon Dioxide 21 Anion Gap 11 BUN 10.1 Creatinine 0.3 L Est GFR (CKD-EPI)AfAm 212.34 Est GFR (CKD-EPI)NonAf 183.21 Random Glucose 72 L Lactic Acid 0.8 Calcium 7.6 L Magnesium 2.0 Total Bilirubin 0.3 GGT 67 AST 27 ALT 27 Alkaline Phosphatase 89 Creatine Kinase 1270 H Creatine Kinase Index 0.4 CK-MB (CK-2) 6.2 H Troponin I 0.03 Total Protein 5.8 L Albumin 2.7 L Urine Color Urine Appearance Urine pH Ur Specific Prospect Urine Protein Urine Glucose (UA) Urine Ketones Urine Blood Urine Nitrite Urine Bilirubin Urine Urobilinogen Ur Leukocyte Esterase Carbamazepine Active Medications Generic Name Dose Route Start Last Admin Trade Name Freq PRN Reason Stop Dose Admin Acetylcysteine 600 mg 03/27/19 20:00 Mucomyst 20 Oral / Inh Use Only* NEB RBID ALEKSANDR Albuterol Sulfate 1 amp 03/27/19 20:00 Ventolin 0.083% Nebulizer Soln - NEB RBID ALEKSANDR Albuterol/Ipratropium 1 amp 03/26/19 23:59 Duoneb - NEB QID PRN WHEEZING Apixaban 5 mg 03/27/19 10:00 03/27/19 09:34 Eliquis - PO 5 mg BID ALEKSANDR Administration Budesonide 1 amp 03/27/19 08:00 03/27/19 08:17 Pulmicort 0.5 Mg Nebulizer - NEB 1 amp RBID ALEKSANDR Administration Carbamazepine 280 mg 03/27/19 00:15 03/27/19 09:34 Tegretol Oral Suspension - GT 280 mg BID ALEKSANDR Administration Clonazepam 1 mg 03/27/19 00:00 03/27/19 14:07 Klonopin - GT 1 mg TID ALEKSANDR Administration Lactated Ringer's 1,000 ml in 1,000 mls @ 100 mls/hr 03/26/19 23:00 03/26/19 23:33 Lactated Ringers Solution IV 100 mls/hr ASDIR ALEKSANDR Administration Piperacillin Sod/Tazobactam 50 mls @ 100 mls/hr 03/27/19 14:00 03/27/19 16:58 Sod 3.375 gm/ Dextrose IVPB 100 mls/hr Q8H-IV ALEKSANDR Administration Protocol Levetiracetam 1,500 mg 03/27/19 00:15 03/27/19 09:33 Keppra Oral Solution - GT 1,500 mg BID ALEKSANDR Administration Tamsulosin HCl 0.4 mg 03/27/19 10:00 03/27/19 11:00 Flomax - NR Not Given DAILY ALEKSANDR ASSESSMENT/PLAN: 28 yo male with PMH of CP, seizures, and scoliosis,was ni to the ER from [place] after he was noticed to have a fever with labored breathing and a BP of 163/98. Pt was previously admitted for aspiration pneumonia and R poplitela DVT, was DCed 03/15 on Augmentin, Prednisone taper, ad Eliquis. # Sepsis, undetermined source - WBC 23.6 now 9.0 - ID consult: Zosyn 03/27, DC Hario (Zosyn then Augmentin on last admission) - CT Chest (wo contrast): Rt lower lobe infiltrate, small rt pleural effusion, mild basilar discoid atelectasis - CT Abdomen (w0 contrast): pending - CXR unchanged from last admission. - Urine and blood cultures pending # Lactic acidosis - Following Lactic Acid 13.7, 2.6, 5.0. 0.8 # Hx of seizures - Home meds: Tegratol, Keppra, Clonazepam #FEN - IV NS - Jevity G tube - monitor bicarb and AG #DVT PE - continue Eliquis (Hx of Rt popliteal DVT) Visit type - Emergency Visit Emergency Visit: Yes ED Registration Date: 03/26/19 Care time: The patient presented to the Emergency Department on the above date and was hospitalized for further evaluation of their emergent condition. - New Patient This patient is new to me today: No - Critical Care Critical Care patient: No - Discharge Referral Referred to [facility] Med P.C.: No ATTENDING PHYSICIAN STATEMENT I saw and evaluated the patient. I reviewed the resident's note and discussed the case with the resident. I agree with the resident's findings and plan as documented. SUBJECTIVE: OBJECTIVE: ASSESSMENT AND PLAN:
[2019-03-27] MEDS: ACETYLCYSTEINE 20% 200MG/ML 4 ML VIAL *FOR ORAL / INH USE ONLY NEB SCH (20:32)
[2019-03-27] MEDS: ALBUTEROL SO4 0.083% IH SOL 2.5 MG/3 ML VIAL.NEB. NEB SCH (20:33)
[2019-03-27] MEDS: LACTATED RINGERS SOLUTION 1,000 ML/1,000 ML INFUS.BAG IV SCH ×2 (21:06→23:50)
[2019-03-28] MEDS ORDERED: PIPERACILLIN/TAZOBACTAM 3.375 GM VIAL IVPB ONE ×3 (01:07→16:45)
[2019-03-28] MEDS ORDERED: DEXTROSE 5%-WATER - 50 ML IVPB ONE ×3 (01:07→16:45)
[2019-03-28] MEDS: PIPERACILLIN/TAZOB 3.375 GM 3.375 GM in DEXTROSE 5%-WATER - 50 ML IVPB SCH ×3 (01:08→17:28)
[2019-03-28] MEDS: clonazePAM 0.5 MG TABLET GT SCH ×3 (05:27→21:59)
[2019-03-28] MEDS: SODIUM CHLORIDE 1,000 ML IV SCH (08:04)
[2019-03-28] MEDS ORDERED: VANCOMYCIN 750 MG in DEXTROSE 5%-WATER - 250 ML IVPB ONE (08:30)
[2019-03-28] MEDS: BUDESONIDE 0.5 MG/2 ML INH SUSP VIAL NEB SCH ×2 (08:49→20:55)
[2019-03-28] MEDS: ACETYLCYSTEINE 20% 200MG/ML 4 ML VIAL *FOR ORAL / INH USE ONLY NEB SCH ×2 (08:52→20:56)
[2019-03-28] MEDS: ALBUTEROL SO4 0.083% IH SOL 2.5 MG/3 ML VIAL.NEB. NEB SCH ×2 (08:53→20:56)
[2019-03-28 09:01] LABS: HEMATOCRIT 33.5 % (35.4-49); HEMOGLOBIN 11.2 GM/dL (11.7-16.9); MCH 28.1 pg (25.7-33.7); MCHC 33.3 g/dl (32.0-35.9); MEAN CELL VOLUME 84.3 fl (80-96); MEAN PLT VOLUME 7.4 fl (7.5-11.1); PLATELET COUNT 226 K/MM3 (134-434); RBC 3.97 M/mm3 (4.00-5.60); RDW 17.6 % (11.9-15.9); WHITE BLOOD COUNT 5.4 K/mm3 (4.0-10.0)
[2019-03-28] MEDS ORDERED: PT OWN MED DRAWER 7, Y5N ONE ×3 (09:07→21:57)
[2019-03-28] MEDS: levETIRAcetam 500 MG/5 ML ORAL SOLUTION (UNIT-DOSE CUPS) GT SCH ×2 (09:19→21:59)
[2019-03-28] MEDS: APIXABAN 5 MG TABLET PO SCH ×2 (09:21→21:59)
[2019-03-28 09:30] LABS: ALBUMIN 3.1 g/dl (3.4-5.0); BILIRUBIN,TOTAL 0.2 mg/dL (0.2-1); BLOOD UREA NITROGEN 4.4 mg/dL (7-18); CALCIUM 8.2 mg/dL (8.5-10.1); CREATININE 0.4 mg/dL (0.55-1.3); POTASSIUM 3.4 mmol/L (3.5-5.1); TOT PROT 7.1 g/dl (6.4-8.2)
[2019-03-28] MEDS: carBAMazepine 200 MG/10 ML UNIT-DOSE CUP GT SCH ×2 (09:53→21:59)
[2019-03-28] MEDS ORDERED: POTASSIUM CHLORIDE ORAL LIQUID 20 MEQ/15 ML GT ONE (13:00)
[2019-03-28] MEDS: TAMSULOSIN HCL 0.4 MG CAP NR SCH (15:00)
--- NOTE | 2019-03-28 17:47 | PN ---
Physical Exam: SUBJECTIVE: Patient seen and examined by the bedside. OBJECTIVE: Vital Signs Period Temp Pulse Resp BP Sys/Don Pulse Ox Last 24 Hr 97.8 F-98.9 F 70-96 16-21 96-141/38-81 100-100 GENERAL: The patient is awake, AOx0 HEAD: Microcephalic features EYES: PERRL, extraocular movements intact, sclera anicteric, conjunctiva clear. No ptosis. NECK: Trachea midline, full range of motion, supple. LUNGS: B/L crackles HEART: unable to appreciate heart soudnds due to patient gurgling ABDOMEN: J tube present,Soft, nontender, nondistended, normoactive bowel sounds , no guarding, no rebound, no hepatosplenomegaly, no masses. EXTREMITIES: 2+ pulses, warm, well-perfused, no edema. NEUROLOGICAL: gait and speech not observed since patient unable to do either SKIN: Warm, dry, normal turgor, no rashes or lesions noted Laboratory Results - last 24 hr 03/28/19 03/28/19 03/28/19 08:30 08:30 10:53 WBC 5.4 RBC 3.97 L Hgb 11.2 L Hct 33.5 L MCV 84.3 MCH 28.1 MCHC 33.3 RDW 17.6 H Plt Count 226 MPV 7.4 L Sodium 139 Potassium 3.4 L Chloride 105 Carbon Dioxide 26 Anion Gap 8 BUN 4.4 L Creatinine 0.4 L Est GFR (CKD-EPI)AfAm 188.66 Est GFR (CKD-EPI)NonAf 162.78 Random Glucose 79 Calcium 8.2 L Total Bilirubin 0.2 AST 29 ALT 36 Alkaline Phosphatase 103 Creatine Kinase Cancelled 916 H Creatine Kinase Index 0.4 CK-MB (CK-2) 4.5 H Total Protein 7.1 Albumin 3.1 L Active Medications Generic Name Dose Route Start Last Admin Trade Name Freq PRN Reason Stop Dose Admin Acetylcysteine 600 mg 03/27/19 20:00 03/28/19 08:52 Mucomyst 20 Oral / Inh Use Only* NEB 600 mg RBID ALEKSANDR Administration Albuterol Sulfate 1 amp 03/27/19 20:00 03/28/19 08:53 Ventolin 0.083% Nebulizer Soln - NEB 1 amp RBID ALEKSANDR Administration Albuterol/Ipratropium 1 amp 03/26/19 23:59 Duoneb - NEB QID PRN WHEEZING Apixaban 5 mg 03/27/19 10:00 03/28/19 09:21 Eliquis - PO 5 mg BID ALEKSANDR Administration Budesonide 1 amp 03/27/19 08:00 03/28/19 08:49 Pulmicort 0.5 Mg Nebulizer - NEB 1 amp RBID ALEKSANDR Administration Carbamazepine 280 mg 03/27/19 00:15 03/28/19 09:53 Tegretol Oral Suspension - GT 280 mg BID ALEKSANDR Administration Clonazepam 1 mg 03/27/19 00:00 03/28/19 13:23 Klonopin - GT 1 mg TID ALEKSANDR Administration Piperacillin Sod/Tazobactam 50 mls @ 100 mls/hr 03/27/19 14:00 03/28/19 17:28 Sod 3.375 gm/ Dextrose IVPB 100 mls/hr Q8H-IV ALEKSANDR Administration Protocol Sodium Chloride 1,000 mls @ 75 mls/hr 03/28/19 07:45 03/28/19 08:04 Normal Saline - IV 75 mls/hr ASDIR ALEKSANDR Administration Vancomycin HCl 1,000 mg in 250 mls @ 166.667 mls/hr 03/28/19 21:00 Vancomycin (Pre-Docked) IVPB Q12H ALEKSANDR Protocol Levetiracetam 1,500 mg 03/27/19 00:15 03/28/19 09:19 Keppra Oral Solution - GT 1,500 mg BID ALEKSANDR Administration Tamsulosin HCl 0.4 mg 03/27/19 10:00 03/28/19 15:00 Flomax - NR 0.4 mg DAILY ALEKSANDR Administration ASSESSMENT/PLAN: 28 yo male with PMH of CP, seizures, and scoliosis,was brought to the ER from [place] after he was noticed to have a fever with labored breathing and a BP of 163/98. Pt was previously admitted for aspiration pneumonia and R poplitela DVT, was DCed 03/15 on Augmentin, Prednisone taper, and Eliquis. # Sepsis, undetermined source - WBC 23.6, down to 5.4 - Zosyn 03/27, Vancov started due to blood cx showing Gram POS Cocci in clusters (Zosyn then Augmentin on last admission) - CT Chest (wo contrast): Rt lower lobe infiltrate, small rt pleural effusion, mild basilar discoid atelectasis - CT Abdomen (wp contrast): no acute pathology - CXR unchanged from last admission. - Urine and blood cultures pending # Lactic acidosis - Following Lactic Acid 13.7, 2.6, 5.0. 0.8 # Hx of seizures - Follow [facility] for rhabdo - Home meds: Tegratol, Keppra, Clonazepam #FEN - IV NS - Jevity G tube - monitor bicarb and AG #DVT PE - continue Eliquis (Hx of Rt popliteal DVT) Visit type - Emergency Visit Emergency Visit: Yes ED Registration Date: 03/26/19 Care time: The patient presented to the Emergency Department on the above date and was hospitalized for further evaluation of their emergent condition. - New Patient This patient is new to me today: No - Critical Care Critical Care patient: No - Discharge Referral Referred to [facility] Med P.C.: No ATTENDING PHYSICIAN STATEMENT I saw and evaluated the patient. I reviewed the resident's note and discussed the case with the resident. I agree with the resident's findings and plan as documented. SUBJECTIVE: OBJECTIVE: ASSESSMENT AND PLAN:
--- NOTE | 2019-03-28 17:50 | PN ---
Teaching Attending Note Name of Resident: Beverley Haney ATTENDING PHYSICIAN STATEMENT I saw and evaluated the patient. I reviewed the resident's note and discussed the case with the resident. I agree with the resident's findings and plan as documented. SUBJECTIVE: No events over night OBJECTIVE: NAD CV: RRR, no MRG Lungs: course crackles and rales b/l. Abd: NL BS. slightly distended. NT. Ext : muscle atrophy and hyperpigmentation over the L leg. No edema or erythema Skin: No decubitus ulcers ASSESSMENT AND PLAN: 28 y/o man with h/o MR, cortical blindness, HTN, microcephaly, cerebral palsy, quadriplegia, seizure disorder, scoliosis, hyponatremia, other medical problems , and recent hospitalization for PNA and DVT , who presented from [place] due to fever and resp distress again. 1- Severe Sepsis: due to RLL PNA. - blood cx positive for G+ cocci in clusters in all 4 bottles. - gave a dose of vanco . ID help - cont zosyn - repeat blood cx . - No intra-abdominal source of infection 2- Acute resp distress at facility: Now at [facility] . 3- H/o Seizures: - cont his home meds 4- Recent diagnosis of DVT: - cont Eliquis 5- H/o HTN, was hypotensive last and mission and clonidine was discontinued. will confirm with [place] if it had been restarted. 6- Rhabdo: cont IVF HLOC ASSESSMENT AND PLAN:
[2019-03-28] MEDS: VANCOMYCIN 1 GRAM (PRE-DOCKED) 1,000 MG/250 ML BAG IVPB SCH (21:59)
[2019-03-29] MEDS ORDERED: DEXTROSE 5%-WATER - 50 ML IVPB ONE ×3 (01:05→17:13)
[2019-03-29] MEDS ORDERED: PIPERACILLIN/TAZOBACTAM 3.375 GM VIAL IVPB ONE ×3 (01:05→17:13)
[2019-03-29] MEDS: PIPERACILLIN/TAZOB 3.375 GM 3.375 GM in DEXTROSE 5%-WATER - 50 ML IVPB SCH ×3 (01:09→17:40)
[2019-03-29] MEDS: SODIUM CHLORIDE 1,000 ML IV SCH ×2 (05:10→09:50)
[2019-03-29] MEDS: clonazePAM 0.5 MG TABLET GT SCH ×3 (05:10→22:06)
[2019-03-29 08:06] LABS: HEMATOCRIT 35.9 % (35.4-49); HEMOGLOBIN 11.9 GM/dL (11.7-16.9); MCH 28.1 pg (25.7-33.7); MCHC 33.1 g/dl (32.0-35.9); MEAN CELL VOLUME 84.7 fl (80-96); MEAN PLT VOLUME 7.5 fl (7.5-11.1); PLATELET COUNT 257 K/MM3 (134-434); RBC 4.23 M/mm3 (4.00-5.60); RDW 17.4 % (11.9-15.9)
[2019-03-29] MEDS: ALBUTEROL SO4 0.083% IH SOL 2.5 MG/3 ML VIAL.NEB. NEB SCH ×2 (08:15→20:34)
[2019-03-29] MEDS: ACETYLCYSTEINE 20% 200MG/ML 4 ML VIAL *FOR ORAL / INH USE ONLY NEB SCH ×2 (08:20→20:34)
[2019-03-29 09:01] LABS: ALBUMIN 3.3 g/dl (3.4-5.0); BILIRUBIN,TOTAL 0.4 mg/dL (0.2-1); BLOOD UREA NITROGEN 3.4 mg/dL (7-18); CALCIUM 8.4 mg/dL (8.5-10.1); CREATININE 0.7 mg/dL (0.55-1.3); POTASSIUM 3.6 mmol/L (3.5-5.1); TOT PROT 7.5 g/dl (6.4-8.2)
[2019-03-29] MEDS ORDERED: PT OWN MED DRAWER 7, Y5N ONE ×2 (09:13→22:04)
--- NOTE | 2019-03-29 09:31 | PN ---
Teaching Attending Note Name of Resident: Tony Brady ATTENDING PHYSICIAN STATEMENT I saw and evaluated the patient. I reviewed the resident's note and discussed the case with the resident. I agree with the resident's findings and plan as documented. SUBJECTIVE: Patient looks better, no fever or chills, breathing improving. OBJECTIVE: Vital Signs Temperature 98.2 F 03/29/19 05:21 Pulse Rate 95 H 03/29/19 05:21 Respiratory Rate 18 03/29/19 05:21 Blood Pressure 125/76 03/29/19 05:21 O2 Sat by Pulse Oximetry (%) 98 03/28/19 21:00 GENERAL: The patient is from [facility] , non verbal with mental retardation . HEAD: Normal with no signs of trauma. EYES: PERRL, extraocular movements intact, sclera anicteric, conjunctiva clear.. ENT: Ears normal, oropharynx clear without exudates, moist mucous membranes. NECK: Trachea midline, full range of motion, supple. LUNGS: decreased Breath sounds equal, positive for rhonchi , no crackles, no accessory muscle use. HEART: Regular rate and rhythm, S1, S2 without murmur, rub or gallop. ABDOMEN: Soft, nontender, nondistended, normoactive bowel sounds, no guarding, no rebound, no hepatosplenomegaly, no masses. EXTREMITIES: 2+ pulses, warm, well-perfused, no edema. NEUROLOGICAL: Cranial nerves II through XII grossly intact. nonverbal , contracted. PSYCH: non verbal SKIN: Warm, dry, normal turgor, no rashes or lesions noted CBCD WBC 9.0 K/mm3 (4.0-10.0) 03/29/19 07:20 RBC 4.23 M/mm3 (4.00-5.60) 03/29/19 07:20 Hgb 11.9 GM/dL (11.7-16.9) 03/29/19 07:20 Hct 35.9 % (35.4-49) 03/29/19 07:20 MCV 84.7 fl (80-96) 03/29/19 07:20 MCHC 33.1 g/dl (32.0-35.9) 03/29/19 07:20 RDW 17.4 % (11.9-15.9) H 03/29/19 07:20 Plt Count 257 K/MM3 (134-434) 03/29/19 07:20 MPV 7.5 fl (7.5-11.1) 03/29/19 07:20 CMP Sodium 141 mmol/L (136-145) 03/29/19 07:20 Potassium 3.6 mmol/L (3.5-5.1) 03/29/19 07:20 Chloride 108 mmol/L (98-107) H 03/29/19 07:20 Carbon Dioxide 23 mmol/L (21-32) 03/29/19 07:20 Anion Gap 10 MMOL/L (8-16) 03/29/19 07:20 BUN 3.4 mg/dL (7-18) L 03/29/19 07:20 Creatinine 0.7 mg/dL (0.55-1.3) 03/29/19 07:20 Random Glucose 75 mg/dL (74-106) 03/29/19 07:20 Calcium 8.4 mg/dL (8.5-10.1) L 03/29/19 07:20 Total Bilirubin 0.4 mg/dL (0.2-1) 03/29/19 07:20 AST 26 U/L (15-37) 03/29/19 07:20 ALT 36 U/L (13-61) 03/29/19 07:20 Alkaline Phosphatase 102 U/L (45-117) 03/29/19 07:20 Total Protein 7.5 g/dl (6.4-8.2) 03/29/19 07:20 Albumin 3.3 g/dl (3.4-5.0) L 03/29/19 07:20 CARDIAC ENZYMES Creatine Kinase 882 U/L (26-308) H 03/29/19 07:20 Troponin I 0.03 ng/ml (0.00-0.05) 03/27/19 07:30 Current Medications Generic Name Dose Route Start Last Admin Trade Name Freq PRN Reason Stop Dose Admin Acetylcysteine 600 mg 03/27/19 20:00 03/28/19 20:56 Mucomyst 20 Oral / Inh Use Only* NEB 600 mg RBID ALEKSANDR Administration Albuterol Sulfate 1 amp 03/27/19 20:00 03/28/19 20:56 Ventolin 0.083% Nebulizer Soln - NEB 1 amp RBID ALEKSANDR Administration Albuterol/Ipratropium 1 amp 03/26/19 23:59 Duoneb - NEB QID PRN WHEEZING Apixaban 5 mg 03/27/19 10:00 03/28/19 21:59 Eliquis - PO 5 mg BID ALEKSANDR Administration Budesonide 1 amp 03/27/19 08:00 03/28/19 20:55 Pulmicort 0.5 Mg Nebulizer - NEB 1 amp RBID ALEKSANDR Administration Carbamazepine 280 mg 03/27/19 00:15 03/28/19 21:59 Tegretol Oral Suspension - GT 280 mg BID ALEKSANDR Administration Clonazepam 1 mg 03/27/19 00:00 03/29/19 05:10 Klonopin - GT 1 mg TID ALEKSANDR Administration Piperacillin Sod/Tazobactam 50 mls @ 100 mls/hr 03/27/19 14:00 03/29/19 01:09 Sod 3.375 gm/ Dextrose IVPB 100 mls/hr Q8H-IV ALEKSANDR Administration Protocol Sodium Chloride 1,000 mls @ 75 mls/hr 03/28/19 07:45 03/29/19 05:10 Normal Saline - IV 75 mls/hr ASDIR ALEKSANDR Administration Vancomycin HCl 1,000 mg in 250 mls @ 166.667 mls/hr 03/28/19 21:00 03/28/19 21:59 Vancomycin (Pre-Docked) IVPB 166.667 mls/hr Q12H ALEKSANDR Administration Protocol Levetiracetam 1,500 mg 03/27/19 00:15 03/28/19 21:59 Keppra Oral Solution - GT 1,500 mg BID ALEKSANDR Administration Tamsulosin HCl 0.4 mg 03/27/19 10:00 03/28/19 15:00 Flomax - NR 0.4 mg DAILY ALEKSANDR Administration Home Medications Medication Instructions Recorded Carbamazepine [Tegretol -] 280 mg GT BID 03/17/18 Cholecalciferol (Vitamin D3) 2,000 unit GT DAILY 03/17/18 [Vitamin D3] Omeprazole Magnesium [Prilosec] 20 mg GT DAILY 03/17/18 Tamsulosin HCl [Flomax -] 0.4 mg GT DAILY 03/17/18 clonazePAM [KlonoPIN -] 1 mg GT TID 03/17/18 Baclofen [Lioresal -] 10 mg PO DAILY@0600,1200 tablet 03/21/18 Budesonide [Pulmicort 0.5 mg 1 neb NEB BID 07/12/18 Nebulizer -] Diazepam [Diastat Acudial] 20 mg RC PRN PRN 07/12/18 Ipratropium/Albuterol Sulfate 3 ml IH QID PRN 07/12/18 [Iprat-Albut 0.5-3(2.5) mg/3 ml] Nystatin Ointment [Mycostatin 1 applic TP BID 07/12/18 Ointment -] Triamcinolone 0.1% Cream 1 applic TP BID 07/12/18 [Aristocort 0.1% Cream -] Scopolamine Hydrobromide 1 patch TD Q72H #10 patch.td72 07/18/18 [Transderm-Scop -] Mupirocin Ointment [Bactroban 2% 1 applic TP TID 08/11/18 Ointment -] levETIRAcetam [Keppra Oral 1,500 mg GT BID cup 10/06/18 Solution -] Baclofen 20 mg PO ASDIR 03/08/19 predniSONE [Deltasone -] See Taper PO ASDIR #20 tab 03/14/19 Apixaban [Eliquis] 5 mg PO BID 03/26/19 Aspirin 81 mg PEG 03/26/19 Microbiology 03/26/19 18:20 Blood - Peripheral Venous Blood Culture - Preliminary Staphylococcus Coagulase Neg 03/28/19 08:15 Blood - Peripheral Venous Blood Culture - Preliminary NO GROWTH OBTAINED AFTER 24 HOURS, INCUBATION TO CONTINUE FOR 4 DAYS. 03/26/19 18:20 Blood - Peripheral Venous Blood Culture - Preliminary Staphylococcus Coagulase Neg Staphylococcus Coagulase Neg#2 Staphylococcus Coagulase Neg#3 03/28/19 08:30 Blood - Peripheral Venous Blood Culture - Preliminary NO GROWTH OBTAINED AFTER 24 HOURS, INCUBATION TO CONTINUE FOR 4 DAYS. 03/26/19 21:10 Urine - Urine - Catheterized Urine Culture - Final NO GROWTH OBTAINED ASSESSMENT AND PLAN: Patient is a 28 y/o man with h/o MR, cortical blindness, HTN, microcephaly, cerebral palsy, quadriplegia, seizure disorder, scoliosis, hyponatremia, and recent hospitalization for PNA and DVT , who presented from [place] due to fever and resp distress again. Patient is a 28 y/o man with h/o MR, cortical blindness, HTN, microcephaly, cerebral palsy, quadriplegia, seizure disorder, scoliosis, hyponatremia, and recent hospitalization for PNA and DVT , who presented from [place] due to fever and resp distress again. # s/p Sepsis: due to RLL PNA. On Zosyn and Vancomycin continue as per ID. # Gram positive bacteremia with ; G+ cocci in clusters in all 4 bottles. continue vanco and zosyn , continue as per ID. # Acute resp distress: improved at his baseline now #H/o Seizures: cont his home meds # Recent diagnosis of DVT: cont Eliquis # H/o HTN: normotensive now # Rhabdo: s/p IVF DVT Px: Eliquis
[2019-03-29] MEDS: VANCOMYCIN 1 GRAM (PRE-DOCKED) 1,000 MG/250 ML BAG IVPB SCH ×2 (10:07→20:25)
[2019-03-29] MEDS: APIXABAN 5 MG TABLET PO SCH ×2 (10:09→22:06)
[2019-03-29] MEDS: TAMSULOSIN HCL 0.4 MG CAP NR SCH (10:09)
[2019-03-29] MEDS: levETIRAcetam 500 MG/5 ML ORAL SOLUTION (UNIT-DOSE CUPS) GT SCH ×2 (10:11→22:07)
[2019-03-29] MEDS: carBAMazepine 200 MG/10 ML UNIT-DOSE CUP GT SCH ×2 (10:11→22:08)
[2019-03-29] MEDS: BUDESONIDE 0.5 MG/2 ML INH SUSP VIAL NEB SCH ×2 (10:26→20:34)
--- NOTE | 2019-03-29 15:35 | PN ---
Physical Exam: SUBJECTIVE: Patient seen and examined by the bedside. OBJECTIVE: Vital Signs Period Temp Pulse Resp BP Sys/Don Pulse Ox Last 24 Hr 97.7 F-98.3 F 67-98 17-18 103-125/47-90 98 GENERAL: The patient is awake, AOx0 HEAD: Microcephalic features EYES: PERRL, extraocular movements intact, sclera anicteric, conjunctiva clear. No ptosis. NECK: Trachea midline, full range of motion, supple. LUNGS: B/L crackles HEART: unable to appreciate heart soudnds due to patient gurgling ABDOMEN: J tube present, distended, soft, nontender EXTREMITIES: 2+ pulses, warm, well-perfused, no edema. NEUROLOGICAL: gait and speech not observed since patient unable to do either SKIN: Warm, dry, normal turgor, no rashes or lesions noted Laboratory Results - last 24 hr 03/26/19 03/29/19 03/29/19 21:20 07:20 07:20 WBC 9.0 RBC 4.23 Hgb 11.9 Hct 35.9 MCV 84.7 MCH 28.1 MCHC 33.1 RDW 17.4 H Plt Count 257 MPV 7.5 Sodium 141 Potassium 3.6 Chloride 108 H Carbon Dioxide 23 Anion Gap 10 BUN 3.4 L Creatinine 0.7 Est GFR (CKD-EPI)AfAm 149.90 Est GFR (CKD-EPI)NonAf 129.33 Random Glucose 75 Lactic Acid Calcium 8.4 L Total Bilirubin 0.4 AST 26 ALT 36 Alkaline Phosphatase 102 Creatine Kinase 882 H Creatine Kinase Index 0.5 CK-MB (CK-2) 5.2 H Total Protein 7.5 Albumin 3.3 L Levetiracetam 5.6 L 03/29/19 07:20 WBC RBC Hgb Hct MCV MCH MCHC RDW Plt Count MPV Sodium Potassium Chloride Carbon Dioxide Anion Gap BUN Creatinine Est GFR (CKD-EPI)AfAm Est GFR (CKD-EPI)NonAf Random Glucose Lactic Acid 0.6 Calcium Total Bilirubin AST ALT Alkaline Phosphatase Creatine Kinase Creatine Kinase Index CK-MB (CK-2) Total Protein Albumin Levetiracetam Active Medications Generic Name Dose Route Start Last Admin Trade Name Freq PRN Reason Stop Dose Admin Acetylcysteine 600 mg 03/27/19 20:00 07/31/19 08:20 Mucomyst 20 Oral / Inh Use Only* NEB 600 mg RBID ALEKSANDR Administration Albuterol Sulfate 1 amp 03/27/19 20:00 03/29/19 08:15 Ventolin 0.083% Nebulizer Soln - NEB 1 amp RBID ALEKSANDR Administration Albuterol/Ipratropium 1 amp 03/26/19 23:59 Duoneb - NEB QID PRN WHEEZING Apixaban 5 mg 03/27/19 10:00 03/29/19 10:09 Eliquis - PO 5 mg BID ALEKSANDR Administration Budesonide 1 amp 03/27/19 08:00 03/29/19 10:26 Pulmicort 0.5 Mg Nebulizer - NEB 1 amp RBID ALEKSANDR Administration Carbamazepine 280 mg 03/27/19 00:15 03/29/19 10:11 Tegretol Oral Suspension - GT 280 mg BID ALEKSANDR Administration Clonazepam 1 mg 03/27/19 00:00 03/29/19 05:10 Klonopin - GT 1 mg TID ALEKSANDR Administration Piperacillin Sod/Tazobactam 50 mls @ 100 mls/hr 03/27/19 14:00 03/29/19 09:56 Sod 3.375 gm/ Dextrose IVPB 100 mls/hr Q8H-IV ALEKSANDR Administration Protocol Sodium Chloride 1,000 mls @ 75 mls/hr 03/28/19 07:45 03/29/19 09:50 Normal Saline - IV Not Given ASDIR ALEKSANDR Vancomycin HCl 1,000 mg in 250 mls @ 166.667 mls/hr 03/28/19 21:00 03/29/19 10:07 Vancomycin (Pre-Docked) IVPB 166.667 mls/hr Q12H ALEKSANDR Administration Protocol Levetiracetam 1,500 mg 03/27/19 00:15 03/29/19 10:11 Keppra Oral Solution - GT 1,500 mg BID ALEKSANDR Administration Tamsulosin HCl 0.4 mg 03/27/19 10:00 03/29/19 10:09 Flomax - NR 0.4 mg DAILY ALEKSANDR Administration ASSESSMENT/PLAN: 28 yo male with PMH of CP, seizures, and scoliosis,was brought to the ER from [place] after he was noticed to have a fever with labored breathing and a BP of 163/98. Pt was previously admitted for aspiration pneumonia and R poplitela DVT, was DCed 7/17 on Augmentin, Prednisone taper, and Eliquis. # Sepsis, undetermined source - WBC 23.6, down to 9.0 today - Zosyn 03/27, Vanco 03/28 - blood cx no growth after 24 hours, last blood cx Staph coagulase NEG; Urine cx no growth - CT Chest (wo contrast): Rt lower lobe infiltrate, small rt pleural effusion, mild basilar discoid atelectasis - CT Abdomen (wo contrast): no acute pathology - CXR unchanged from last admission. #Suspicion of bladder distension - Scan performed, will pass qureshi if retaining # Lactic acidosis (resolved) - Following Lactic Acid 13.7, 2.6, 5.0. 0.8, 0.6 # Hx of seizures - Follow CK for rhabdo 1270, 916, 882 - Home meds: Tegratol, Keppra, Clonazepam #FEN - IV NS - Jevity G tube #DVT PE - continue Eliquis (Hx of Rt popliteal DVT) Visit type - Emergency Visit Emergency Visit: Yes ED Registration Date: 03/26/19 Care time: The patient presented to the Emergency Department on the above date and was hospitalized for further evaluation of their emergent condition. - New Patient This patient is new to me today: No - Critical Care Critical Care patient: No - Discharge Referral Referred to [facility] No ATTENDING PHYSICIAN STATEMENT I saw and evaluated the patient. I reviewed the resident's note and discussed the case with the resident. I agree with the resident's findings and plan as documented. SUBJECTIVE: OBJECTIVE: ASSESSMENT AND PLAN:
[2019-03-30] MEDS ORDERED: DEXTROSE 5%-WATER - 50 ML IVPB ONE ×2 (01:05→08:18)
[2019-03-30] MEDS ORDERED: PIPERACILLIN/TAZOBACTAM 3.375 GM VIAL IVPB ONE ×2 (01:05→08:18)
[2019-03-30] MEDS: PIPERACILLIN/TAZOB 3.375 GM 3.375 GM in DEXTROSE 5%-WATER - 50 ML IVPB SCH ×2 (02:28→10:13)
[2019-03-30] MEDS: clonazePAM 0.5 MG TABLET GT SCH ×3 (05:33→23:27)
[2019-03-30] MEDS: ALBUTEROL SO4 0.083% IH SOL 2.5 MG/3 ML VIAL.NEB. NEB SCH ×2 (08:00→20:20)
[2019-03-30] MEDS: ACETYLCYSTEINE 20% 200MG/ML 4 ML VIAL *FOR ORAL / INH USE ONLY NEB SCH ×2 (08:00→20:20)
[2019-03-30] MEDS: BUDESONIDE 0.5 MG/2 ML INH SUSP VIAL NEB SCH ×2 (08:00→20:30)
[2019-03-30 08:07] LABS: HEMATOCRIT 35.5 % (35.4-49); HEMOGLOBIN 11.7 GM/dL (11.7-16.9); MCH 27.9 pg (25.7-33.7); MCHC 33.1 g/dl (32.0-35.9); MEAN CELL VOLUME 84.2 fl (80-96); MEAN PLT VOLUME 7.5 fl (7.5-11.1); PLATELET COUNT 234 K/MM3 (134-434); RBC 4.22 M/mm3 (4.00-5.60); RDW 17.4 % (11.9-15.9); WHITE BLOOD COUNT 7.1 K/mm3 (4.0-10.0)
[2019-03-30 08:34] LABS: BILIRUBIN,TOTAL 0.3 mg/dL (0.2-1); BLOOD UREA NITROGEN 4.8 mg/dL (7-18); CALCIUM 8.3 mg/dL (8.5-10.1); CREATININE 1.3 mg/dL (0.55-1.3); POTASSIUM 3.2 mmol/L (3.5-5.1); TOT PROT 6.9 g/dl (6.4-8.2)
[2019-03-30] MEDS: SODIUM CHLORIDE 1,000 ML IV SCH (08:34)
[2019-03-30] MEDS: VANCOMYCIN 1 GRAM (PRE-DOCKED) 1,000 MG/250 ML BAG IVPB SCH (08:34)
[2019-03-30] MEDS ORDERED: POTASSIUM CHLORIDE ORAL LIQUID 20 MEQ/15 ML GT ONE (08:53)
[2019-03-30] MEDS ORDERED: PT OWN MED DRAWER 7, Y5N ONE ×4 (09:54→22:55)
[2019-03-30] MEDS: APIXABAN 5 MG TABLET PO SCH ×2 (10:14→23:26)
[2019-03-30] MEDS: levETIRAcetam 500 MG/5 ML ORAL SOLUTION (UNIT-DOSE CUPS) GT SCH ×2 (10:15→23:26)
[2019-03-30] MEDS: carBAMazepine 200 MG/10 ML UNIT-DOSE CUP GT SCH ×2 (10:15→23:30)
[2019-03-30] MEDS: TAMSULOSIN HCL 0.4 MG CAP NR SCH (10:16)
--- NOTE | 2019-03-30 15:16 | PN ---
Physical Exam: SUBJECTIVE: Patient seen and examined by the bedside, AOx0 OBJECTIVE: Vital Signs Period Temp Pulse Resp BP Sys/Don Pulse Ox Last 24 Hr 98.0 F-997.9 F 75-107 16-20 85-126/58-80 99-99 GENERAL: The patient is awake, AOx0 HEAD: Microcephalic features EYES: PERRL, extraocular movements intact, sclera anicteric, conjunctiva clear. No ptosis. ENT: Ears normal, nares patent, oropharynx clear without exudates, moist mucous membranes. NECK: Trachea midline, full range of motion, supple. LUNGS: B/L crackles HEART: unable to appreciate heart soudnds due to patient gurgling ABDOMEN: J tube present, distended, soft, nontender EXTREMITIES: 2+ pulses, warm, well-perfused, no edema. NEUROLOGICAL: gait and speech not observed since patient unable to do either SKIN: Warm, dry, normal turgor, no rashes or lesions noted Laboratory Results - last 24 hr 03/30/19 03/30/19 07:25 07:25 WBC 7.1 RBC 4.22 Hgb 11.7 Hct 35.5 MCV 84.2 MCH 27.9 MCHC 33.1 RDW 17.4 H Plt Count 234 MPV 7.5 Sodium 142 Potassium 3.2 L Chloride 110 H Carbon Dioxide 25 Anion Gap 7 L BUN 4.8 L Creatinine 1.3 Est GFR (CKD-EPI)AfAm 86.67 Est GFR (CKD-EPI)NonAf 74.78 Random Glucose 94 Calcium 8.3 L Total Bilirubin 0.3 AST 19 ALT 33 Alkaline Phosphatase 90 Creatine Kinase 620 H Creatine Kinase Index 0.4 CK-MB (CK-2) 2.9 Total Protein 6.9 Albumin 3.0 L Active Medications Generic Name Dose Route Start Last Admin Trade Name Freq PRN Reason Stop Dose Admin Acetylcysteine 600 mg 03/27/19 20:00 03/30/19 08:00 Mucomyst 20 Oral / Inh Use Only* NEB 600 mg RBID ALEKSANDR Administration Albuterol Sulfate 1 amp 03/27/19 20:00 03/30/19 08:00 Ventolin 0.083% Nebulizer Soln - NEB 1 amp RBID ALEKSANDR Administration Albuterol/Ipratropium 1 amp 03/26/19 23:59 Duoneb - NEB QID PRN WHEEZING Apixaban 5 mg 03/27/19 10:00 03/30/19 10:14 Eliquis - PO 5 mg BID ALEKSANDR Administration Budesonide 1 amp 03/27/19 08:00 03/30/19 08:00 Pulmicort 0.5 Mg Nebulizer - NEB 1 amp RBID ALEKSANDR Administration Carbamazepine 280 mg 03/27/19 00:15 03/30/19 10:15 Tegretol Oral Suspension - GT 280 mg BID ALEKSANDR Administration Clonazepam 1 mg 03/27/19 00:00 03/30/19 14:27 Klonopin - GT 1 mg TID ALEKSANDR Administration Piperacillin Sod/Tazobactam 50 mls @ 100 mls/hr 03/27/19 14:00 03/30/19 10:13 Sod 3.375 gm/ Dextrose IVPB 100 mls/hr Q8H-IV ALEKSANDR Administration Protocol Sodium Chloride 1,000 mls @ 75 mls/hr 03/28/19 07:45 03/30/19 08:34 Normal Saline - IV 75 mls/hr ASDIR ALEKSANDR Administration Vancomycin HCl 1,000 mg in 250 mls @ 166.667 mls/hr 03/28/19 21:00 03/30/19 08:34 Vancomycin (Pre-Docked) IVPB 166.667 mls/hr Q12H ALEKSANDR Administration Protocol Levetiracetam 1,500 mg 03/27/19 00:15 03/30/19 10:15 Keppra Oral Solution - GT 1,500 mg BID ALEKSANDR Administration Tamsulosin HCl 0.4 mg 03/27/19 10:00 03/30/19 10:16 Flomax - NR Not Given DAILY ALEKSANDR ASSESSMENT/PLAN: 28 yo male with PMH of CP, seizures, and scoliosis,was brought to the ER from [place] after he was noticed to have a fever with labored breathing and a BP of 163/98. Pt was previously admitted for aspiration pneumonia and R popliteal DVT, was DCed 03/15 on Augmentin, Prednisone taper, and Eliquis. # Sepsis, undetermined source - ID consult: Substitute Augmentin Suspension 600MG BID X 7D; Zosyn DC after 4 days, Vanco D/C after 3 days - blood cx no growth after 24 hours, last blood cx Staph coagulase NEG; Urine cx no growth, endotrach sputum pending - CT Chest (wo contrast): Rt lower lobe infiltrate, small rt pleural effusion, mild basilar discoid atelectasis - CT Abdomen (wo contrast): no acute pathology - CXR unchanged from last admission. #Suspicion of bladder distension - bladder last night showed 7mll, no qureshi placed # Lactic acidosis (resolved) - Following Lactic Acid 13.7, 2.6, 5.0. 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 - New Patient This patient is new to me today: No - Critical Care Critical Care patient: No - Discharge Referral [facility] No ATTENDING PHYSICIAN STATEMENT I saw and evaluated the patient. I reviewed the resident's note and discussed the case with the resident. I agree with the resident's findings and plan as documented. SUBJECTIVE: OBJECTIVE: ASSESSMENT AND PLAN:
--- NOTE | 2019-03-30 15:20 | PN ---
Progress Note, Physician History of Present Illness: BREATHING LESS LABORED FEVER/ LEUKOCYTOSIS RESOLVED +BC C/W CONTAMINATION - Current Medication List Current Medications: Active Medications Acetylcysteine (Mucomyst 20 Oral / Inh Use Only*) 600 mg NEB RBID ALEKSANDR Last Admin: 03/30/19 08:00 Dose: 600 mg Albuterol Sulfate (Ventolin 0.083% Nebulizer Soln -) 1 amp NEB RBID ALEKSANDR Last Admin: 03/30/19 08:00 Dose: 1 amp Albuterol/Ipratropium (Duoneb -) 1 amp NEB QID PRN PRN Reason: WHEEZING Apixaban (Eliquis -) 5 mg PO BID ALEKSANDR Last Admin: 03/30/19 10:14 Dose: 5 mg Budesonide (Pulmicort 0.5 Mg Nebulizer -) 1 amp NEB RBID ALEKSANDR Last Admin: 03/30/19 08:00 Dose: 1 amp Carbamazepine (Tegretol Oral Suspension -) 280 mg GT BID ALEKSANDR Last Admin: 03/30/19 10:15 Dose: 280 mg Clonazepam (Klonopin -) 1 mg GT TID ALEKSANDR Last Admin: 03/30/19 14:27 Dose: 1 mg Piperacillin Sod/Tazobactam (Sod 3.375 gm/ Dextrose) 50 mls @ 100 mls/hr IVPB Q8H-IV ALEKSANDR; Protocol Last Admin: 03/30/19 10:13 Dose: 100 mls/hr Sodium Chloride (Normal Saline -) 1,000 mls @ 75 mls/hr IV ASDIR ALEKSANDR Last Admin: 03/30/19 08:34 Dose: 75 mls/hr Vancomycin HCl (Vancomycin (Pre-Docked)) 1,000 mg in 250 mls @ 166.667 mls/hr IVPB Q12H ALEKSANDR; Protocol Last Admin: 03/30/19 08:34 Dose: 166.667 mls/hr Levetiracetam (Keppra Oral Solution -) 1,500 mg GT BID ALEKSANDR Last Admin: 03/30/19 10:15 Dose: 1,500 mg Tamsulosin HCl (Flomax -) 0.4 mg NR DAILY ALEKSANDR Last Admin: 03/30/19 10:16 Dose: Not Given - Objective Vital Signs: Vital Signs Temperature 997.9 F H 03/30/19 08:10 Pulse Rate 86 03/30/19 08:10 Respiratory Rate 18 03/30/19 08:10 Blood Pressure 101/69 03/30/19 08:10 O2 Sat by Pulse Oximetry (%) 99 03/30/19 08:06 Constitutional: Yes: No Distress Cardiovascular: Yes: Regular Rate and Rhythm, S1, S2 Respiratory: Yes: Rhonchi Gastrointestinal: Yes: Normal Bowel Sounds, Soft. No: Tenderness Labs: CBC, BMP 03/30/19 07:25 03/30/19 07:25 INR, PTT INR 1.28 (0.83-1.09) H 03/26/19 21:04 Assessment/Plan PROBABLE RECURRENT ASPIRATION FEVER/ LEUKOCYTOSIS- RESOLVED LACTIC ACIDOSIS RESOLVED DAY 4 ZOSYN SUBSTITUTE AUGMENTIN SUSP 600MG BID X 7D
[2019-03-30] MEDS: AMOX TR/POTASSIUM CLAVULANATE 600 MG/5 ML PO SCH (17:21)
--- NOTE | 2019-03-30 18:57 | PN ---
Teaching Attending Note Name of Resident: Tony Brady ATTENDING PHYSICIAN STATEMENT I saw and evaluated the patient. I reviewed the resident's note and discussed the case with the resident. I agree with the resident's findings and plan as documented. SUBJECTIVE: Patient is comfortable with no ACUTE DIStress. OBJECTIVE: Vital Signs Temperature 99.9 F H 03/30/19 16:00 Pulse Rate 82 03/30/19 16:00 Respiratory Rate 18 03/30/19 16:00 Blood Pressure 109/69 03/30/19 16:00 O2 Sat by Pulse Oximetry (%) 99 03/30/19 08:06 GENERAL: The patient is from [facility] , non verbal with mental retardation . HEAD: Normal with no signs of trauma. EYES: PERRL, extraocular movements intact, sclera anicteric, conjunctiva clear.. ENT: Ears normal, oropharynx clear without exudates, moist mucous membranes. NECK: Trachea midline, full range of motion, supple. LUNGS: decreased Breath sounds equal, positive for rhonchi , no crackles, no accessory muscle use. HEART: Regular rate and rhythm, S1, S2 without murmur, rub or gallop. ABDOMEN: Soft, NT, ND, normoactive bowel sounds, no guarding, no rebound, no hepatosplenomegaly, no masses. EXTREMITIES: 2+ pulses, warm, well-perfused, no edema. NEUROLOGICAL: Cranial nerves II through XII grossly intact. nonverbal , contracted. PSYCH: non verbal SKIN: Warm, dry, normal turgor, no rashes or lesions noted CBCD WBC 7.1 K/mm3 (4.0-10.0) 03/30/19 07:25 RBC 4.22 M/mm3 (4.00-5.60) 03/30/19 07:25 Hgb 11.7 GM/dL (11.7-16.9) 03/30/19 07:25 Hct 35.5 % (35.4-49) 03/30/19 07:25 MCV 84.2 fl (80-96) 03/30/19 07:25 MCHC 33.1 g/dl (32.0-35.9) 03/30/19 07:25 RDW 17.4 % (11.9-15.9) H 03/30/19 07:25 Plt Count 234 K/MM3 (134-434) 03/30/19 07:25 MPV 7.5 fl (7.5-11.1) 03/30/19 07:25 CMP Sodium 142 mmol/L (136-145) 03/30/19 07:25 Potassium 3.2 mmol/L (3.5-5.1) L 03/30/19 07:25 Chloride 110 mmol/L (98-107) H 03/30/19 07:25 Carbon Dioxide 25 mmol/L (21-32) 03/30/19 07:25 Anion Gap 7 MMOL/L (8-16) L 03/30/19 07:25 BUN 4.8 mg/dL (7-18) L 03/30/19 07:25 Creatinine 1.3 mg/dL (0.55-1.3) 03/30/19 07:25 Random Glucose 94 mg/dL (74-106) 03/30/19 07:25 Calcium 8.3 mg/dL (8.5-10.1) L 03/30/19 07:25 Total Bilirubin 0.3 mg/dL (0.2-1) 03/30/19 07:25 AST 19 U/L (15-37) 03/30/19 07:25 ALT 33 U/L (13-61) 03/30/19 07:25 Alkaline Phosphatase 90 U/L (45-117) 03/30/19 07:25 Total Protein 6.9 g/dl (6.4-8.2) 03/30/19 07:25 Albumin 3.0 g/dl (3.4-5.0) L 03/30/19 07:25 CARDIAC ENZYMES Creatine Kinase 620 U/L (26-308) H 03/30/19 07:25 Troponin I 0.03 ng/ml (0.00-0.05) 03/27/19 07:30 Current Medications Generic Name Dose Route Start Last Admin Trade Name Freq PRN Reason Stop Dose Admin Acetylcysteine 600 mg 03/27/19 20:00 03/30/19 08:00 Mucomyst 20 Oral / Inh Use Only* NEB 600 mg RBID ALEKSANDR Administration Albuterol Sulfate 1 amp 03/27/19 20:00 03/30/19 08:00 Ventolin 0.083% Nebulizer Soln - NEB 1 amp RBID ALEKSANDR Administration Albuterol/Ipratropium 1 amp 07/28/19 23:59 Duoneb - NEB QID PRN WHEEZING Amoxicillin/Clavulanate Potassium 600 mg 03/30/19 17:30 03/30/19 17:21 Augmentin 600 Mg/5 Ml Oral Suspension - PO 600 mg BID@0800,1730 ALEKSANDR Administration Apixaban 5 mg 03/27/19 10:00 03/30/19 10:14 Eliquis - PO 5 mg BID ALEKSANDR Administration Budesonide 1 amp 03/27/19 08:00 03/30/19 08:00 Pulmicort 0.5 Mg Nebulizer - NEB 1 amp RBID ALEKSANDR Administration Carbamazepine 280 mg 03/27/19 00:15 03/30/19 10:15 Tegretol Oral Suspension - GT 280 mg BID ALEKSANDR Administration Clonazepam 1 mg 03/27/19 00:00 03/30/19 14:27 Klonopin - GT 1 mg TID ALEKSANDR Administration Sodium Chloride 1,000 mls @ 75 mls/hr 03/28/19 07:45 03/30/19 08:34 Normal Saline - IV 75 mls/hr ASDIR ALEKSANDR Administration Levetiracetam 1,500 mg 03/27/19 00:15 03/30/19 10:15 Keppra Oral Solution - GT 1,500 mg BID ALEKSANDR Administration Tamsulosin HCl 0.4 mg 03/27/19 10:00 03/30/19 10:16 Flomax - NR Not Given DAILY [facility] Home Medications Medication Instructions Recorded Carbamazepine [Tegretol -] 280 mg GT BID 03/17/18 Cholecalciferol (Vitamin D3) 2,000 unit GT DAILY 03/17/18 [Vitamin D3] Omeprazole Magnesium [Prilosec] 20 mg GT DAILY 03/17/18 Tamsulosin HCl [Flomax -] 0.4 mg GT DAILY 03/17/18 clonazePAM [KlonoPIN -] 1 mg GT TID 03/17/18 Baclofen [Lioresal -] 10 mg PO DAILY@0600,1200 tablet 03/21/18 Budesonide [Pulmicort 0.5 mg 1 neb NEB BID 07/12/18 Nebulizer -] Diazepam [Diastat Acudial] 20 mg RC PRN PRN 07/12/18 Ipratropium/Albuterol Sulfate 3 ml IH QID PRN 07/12/18 [Iprat-Albut 0.5-3(2.5) mg/3 ml] Nystatin Ointment [Mycostatin 1 applic TP BID 07/12/18 Ointment -] Triamcinolone 0.1% Cream 1 applic TP BID 07/12/18 [Aristocort 0.1% Cream -] Scopolamine Hydrobromide 1 patch TD Q72H #10 patch.td72 07/18/18 [Transderm-Scop -] Mupirocin Ointment [Bactroban 2% 1 applic TP TID 08/11/18 Ointment -] levETIRAcetam [Keppra Oral 1,500 mg GT BID cup 10/06/18 Solution -] Baclofen 20 mg PO ASDIR 03/08/19 predniSONE [Deltasone -] See Taper PO ASDIR #20 tab 03/14/19 Apixaban [Eliquis] 5 mg PO BID 03/26/19 Aspirin 81 mg PEG 03/26/19 03/26/19 18:20 Blood - Peripheral Venous Blood Culture - Preliminary Staphylococcus Coagulase Neg 03/28/19 08:15 Blood - Peripheral Venous Blood Culture - Preliminary NO GROWTH OBTAINED AFTER 24 HOURS, INCUBATION TO CONTINUE FOR 4 DAYS. 03/26/19 18:20 Blood - Peripheral Venous Blood Culture - Preliminary Staphylococcus Coagulase Neg Staphylococcus Coagulase Neg#2 Staphylococcus Coagulase Neg#3 03/28/19 08:30 Blood - Peripheral Venous Blood Culture - Preliminary NO GROWTH OBTAINED AFTER 24 HOURS, INCUBATION TO CONTINUE FOR 4 DAYS. 03/26/19 21:10 Urine - Urine - Catheterized Urine Culture - Final NO GROWTH OBTAINED ASSESSMENT AND PLAN: Patient is a 28 y/o man with h/o MR, cortical blindness, HTN, microcephaly, cerebral palsy, quadriplegia, seizure disorder, scoliosis, hyponatremia, and recent hospitalization for PNA and DVT , who presented from [place] due to fever and resp distress again. # s/p Sepsis: due to RLL PNA. On Augmentin po now # Gram positive bacteremia with ; G+ cocci in clusters in all 4 bottles. s/p vanco and zosyn , as per ID placed the patient on Oral Augmentin. # Acute resp distress: improved at his baseline now #H/o Seizures: cont his home meds # Recent diagnosis of DVT: cont Eliquis # H/o HTN: normotensive now # Rhabdo: s/p IVF DVT Px: [facility] patient to [facility] in am
[2019-03-31] MEDS: clonazePAM 0.5 MG TABLET GT SCH ×3 (06:08→23:11)
[2019-03-31] MEDS: ACETYLCYSTEINE 20% 200MG/ML 4 ML VIAL *FOR ORAL / INH USE ONLY NEB SCH ×2 (07:25→20:30)
[2019-03-31] MEDS: ALBUTEROL SO4 0.083% IH SOL 2.5 MG/3 ML VIAL.NEB. NEB SCH ×2 (07:25→20:30)
[2019-03-31 08:32] LABS: BILIRUBIN,TOTAL 0.3 mg/dL (0.2-1); CALCIUM 8.3 mg/dL (8.5-10.1); CREATININE 1.3 mg/dL (0.55-1.3); POTASSIUM 3.5 mmol/L (3.5-5.1); TOT PROT 7.1 g/dl (6.4-8.2)
[2019-03-31] MEDS: SODIUM CHLORIDE 1,000 ML IV SCH (08:44)
[2019-03-31] MEDS: AMOX TR/POTASSIUM CLAVULANATE 600 MG/5 ML PO SCH (08:44)
[2019-03-31] MEDS: BUDESONIDE 0.5 MG/2 ML INH SUSP VIAL NEB SCH ×2 (08:45→20:45)
[2019-03-31 09:22] LABS: BLOOD UREA NITROGEN 6.2 mg/dL (7-18)
[2019-03-31] MEDS ORDERED: PT OWN MED DRAWER 7, Y5N ONE ×3 (09:44→23:08)
[2019-03-31] MEDS: carBAMazepine 200 MG/10 ML UNIT-DOSE CUP GT SCH ×2 (09:59→23:24)
[2019-03-31] MEDS: APIXABAN 5 MG TABLET PO SCH ×2 (09:59→23:10)
[2019-03-31] MEDS: TAMSULOSIN HCL 0.4 MG CAP NR SCH (09:59)
[2019-03-31] MEDS: levETIRAcetam 500 MG/5 ML ORAL SOLUTION (UNIT-DOSE CUPS) GT SCH ×2 (09:59→23:23)
[2019-03-31] MEDS ORDERED: PIPERACILLIN/TAZOBACTAM 3.375 GM VIAL IVPB ONE ×2 (11:57→16:53)
[2019-03-31] MEDS ORDERED: DEXTROSE 5%-WATER - 50 ML IVPB ONE ×2 (11:57→16:53)
--- NOTE | 2019-03-31 12:10 | CON.CARD ---
Consult Consult Specialty:: Cardiology Referred by:: Dr. Zuniga Reason for Consultation:: Abnl ECG - History of Present Illness Chief Complaint: T wave changes History of Present Illness: 28yo M with a PMH of profound intellectual disability, CP w/ spastic quadriparesis, microcephaly, intractable seizures, cortical blindness, asthma, scoliosis s/p repair (07/2006), dysphagia, hyponatremia, s/p G-tube who presents from [place] with fever, diaphoresis, rigors, tachypnea, tachycardia, and abnormal respiration. Per the nursing staff, he was found this evening to be tachycardia and fevers. Denies seizure activity at the home. Patient is non verbal thus history taking is limited. While in the emergency department, the patient had rigor activity that is consistent Patient is nonverbal, contracted. No history can be obtained. It is obtained from review of chart He has had an abnl EEG c/w seizures Per records, he has had a recent dx of DVT and is on Eliquis. 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: Seizure, Other (CP/MR) Pulmonary: Yes: Asthma Musculoskeletal: Yes: Other (scoliosis) - Alcohol/Substance Use Hx Alcohol Use: No History of Substance Use: reports: None - Smoking History Smoking history: Never smoked Have you smoked in the past 12 months: No Aproximately how many cigarettes per day: 0 - Social History Usual Living Arrangement: Shelter ADL: Support Services History of Recent Travel: No Home Medications - Allergies Allergies/Adverse Reactions: Allergies Allergy/AdvReac Type Severity Reaction Status Date / Time Beef Containing Products Allergy Unknown Verified 03/26/19 21:00 erythromycin base Allergy Verified 03/26/19 21:00 phenobarbital Allergy Verified 03/26/19 21:00 venom-honey bee Allergy Verified 03/26/19 21:00 [bee venom (honey bee)] - Home Medications Home Medications: Ambulatory Orders Carbamazepine [Tegretol -] 280 mg GT BID 03/17/18 Cholecalciferol (Vitamin D3) [Vitamin D3] 2,000 unit GT DAILY 03/17/18 Omeprazole Magnesium [Prilosec] 20 mg GT DAILY 03/17/18 Tamsulosin HCl [Flomax -] 0.4 mg GT DAILY 03/17/18 clonazePAM [KlonoPIN -] 1 mg GT TID 03/17/18 Baclofen [Lioresal -] 10 mg PO DAILY@0600,1200 tablet 03/21/18 Budesonide [Pulmicort 0.5 mg Nebulizer -] 1 neb NEB BID 07/12/18 Diazepam [Diastat Acudial] 20 mg RC PRN PRN 07/12/18 Ipratropium/Albuterol Sulfate [Iprat-Albut 0.5-3(2.5) mg/3 ml] 3 ml IH QID PRN 07/12/18 Nystatin Ointment [Mycostatin Ointment -] 1 applic TP BID 07/12/18 Triamcinolone 0.1% Cream [Aristocort 0.1% Cream -] 1 applic TP BID 07/12/18 Scopolamine Hydrobromide [Transderm-Scop -] 1 patch TD Q72H #10 patch.td72 07/18 Mupirocin Ointment [Bactroban 2% Ointment -] 1 applic TP TID 08/11/18 levETIRAcetam [Keppra Oral Solution -] 1,500 mg GT BID cup 10/06/18 Baclofen 20 mg PO ASDIR 03/08/19 predniSONE [Deltasone -] See Taper PO ASDIR #20 tab 03/14/19 Apixaban [Eliquis] 5 mg PO BID 03/26/19 Aspirin 81 mg PEG 03/26/19 Family Disease History - Family Disease History Family History: Unable to Obtain Review of Systems - Review of Systems Constitutional: denies: No Symptoms, Chills, Diaphoresis, Fever, Lethargy, Loss of Appetite, Malaise, Night Sweats, Unintentional Wgt. Loss, Weakness, Other Eyes: denies: No Symptoms, Blind Spots, Blurred Vision, Double Vision, Eye Pain , Floaters, Photophobia, Recent Change in Vision, Other HENT: denies: No Symptoms, Difficult Swallowing, Ear Discharge, Ear Pain, Epistaxis, Gingival Bleeding, Hearing Loss, Mouth Swelling, Nasal Congestion, Ocular Prosthesis, Throat Pain, Toothache, Ringing in Ears, Other Neck: denies: No Symptoms, Decreased ROM, Lumps, Pain on Movement, Stiffness, Swollen Glands, Tenderness, Other Cardiovascular: denies: No Symptoms, Chest Pain, Edema, Palpitations, Shortness of Breath, Other Respiratory: denies: No Symptoms, Cough, Exercise Intolerance, Hemoptysis, Orthopnea, PND, Snoring, SOB, SOB on Exertion, Wheezing, Other Gastrointestinal: denies: No Symptoms, Abdominal Pain, Bloating, Constipation, Diarrhea, Dysphagia, Indigestion, Melena, Nausea, Rectal Bleeding, Vomiting, Vomiting Blood, Other Genitourinary: denies: No Symptoms, Burning, Discharge, Dysuria, Flank Pain, Frequency, Hematuria, Incontinence, Lesions, Menses, Pain, Testicular Mass, Testicular Pain, Testicular Swelling, Urgency, Vaginal Bleeding, Other Breasts: denies: No Symptoms Reported, See HPI, Breast Implants, Discharge from Nipple, Lumps, Pain, Skin Changes, Other Musculoskeletal: denies: No Symptoms, Back Pain, Crepitus, Decreased ROM, Extremity Pain, Joint Pain, Joint Swelling, Muscle Pain, Muscle Cramps, Muscle Weakness, Other Integumentary: denies: No Symptoms, Blister, Bruising, Change in Color, Eczema, Erythema, Incision, Lesions, Lump, Pallor, Pruritis, Rash, Wound, Other Neurological: denies: No Symptoms, Change in LOC, Change in Speech, Confusion, Dizziness, Headache, Incoordination, Numbness, Parasthesia, Pre-Existing Deficit , Seizure, Syncope, Tremors, Unsteady Gait, Weakness, Other Endocrine: denies: No Symptoms, Excessive Sweating, Flushing, Increased Hunger, Increased Thirst, Intolerance to Cold, Intolerance to Heat, Unexplained Weight Gain, Unexplained Weight Loss, Other Hematology/Lymphatic: denies: No Symptoms, Easily Bruised, Excessive Bleeding, Swollen Glands, Other Psychiatric: denies: No Symptoms, Altered Sleep Pattern, Anxiety, Depression, Hallucinations, Panic, Paranoia, Suicidal, Other Vital Signs: Vital Signs Temperature 98.5 F 03/31/19 08:45 Pulse Rate 94 H 03/31/19 08:45 Respiratory Rate 18 03/31/19 08:45 Blood Pressure 100/69 03/31/19 08:45 O2 Sat by Pulse Oximetry (%) 99 03/30/19 21:00 Constitutional: Yes: No Distress Eyes: Yes: Conjunctiva Clear Respiratory: Yes: Rhonchi Gastrointestinal: Yes: Soft, Other (PEG tube) Cardiovascular: Yes: Regular Rate and Rhythm JVD: No Carotid Bruit: No Heart Sounds: Yes: S1, S2 (RRR) Edema: Yes Edema: LLE: 1+, RLE: 1+ Neurological: Yes: Other (NONVERBAL) - Other Data Labs, Other Data: CBC, BMP 03/30/19 07:25 03/31/19 06:45 INR, PTT INR 1.28 (0.83-1.09) H 03/26/19 21:04 Microbiology 03/30/19 04:00 Sputum - Endotracheal Suction W/O Vent Sputum Culture - Preliminary Gram Negative Dm 03/28/19 08:30 Blood - Peripheral Venous Blood Culture - Preliminary NO GROWTH OBTAINED AFTER 72 HOURS, INCUBATION TO CONTINUE FOR 2 DAYS. 03/28/19 08:15 Blood - Peripheral Venous Blood Culture - Preliminary NO GROWTH OBTAINED AFTER 72 HOURS, INCUBATION TO CONTINUE FOR 2 DAYS. 03/26/19 18:20 Blood - Peripheral Venous Blood Culture - Preliminary Staphylococcus Coagulase Neg Staphylococcus Coagulase Neg#2 Staphylococcus Coagulase Neg#3 03/26/19 18:20 Blood - Peripheral Venous Blood Culture - Preliminary Staphylococcus Coagulase Neg Laboratory Tests 03/27/19 03/28/19 03/29/19 07:30 10:53 07:20 WBC Hgb Plt Count Sodium Potassium Creatinine Creatine Kinase 916 H 882 H Troponin I 0.03 03/30/19 03/30/19 03/31/19 07:25 07:25 06:45 WBC 7.1 Hgb 11.7 Plt Count 234 Sodium 145 Potassium 3.5 Creatinine 1.3 Creatine Kinase 620 H Troponin I TWI V2, V3, new from admission ECG Imaging - Results Cat Scan: Report Reviewed, Image Reviewed EKG: Report Reviewed, Image Reviewed (ST, inferior qs, lateral qs (initial) Today: NSR, inferior Qs, TWI V2, V3) Assessment/Plan IMP: 1. RLL PNA, SIRS 2. Seizure disorder 3. Severe developmental disorder 4. History of DVT on AC 5. Nonspecific T wave changes on ECG REC: -Nonspecific T wave changes may be seen in setting of VICE PRESIDENT events including seizures, CVAs etc. Suspect current T wave variation secondary to seizures -Doubt ischemic, given young age and lack of risk factors. Cycling cardiac enzymes may be helpful, but would not be surprised to see a low positive TnI is setting of acute seizures -Doubt patient can be adequately positioned for echo (contracted, unable to comply with instructions) -cont supplimental O2/abx as per ID for PNA and bacteremia -Cont Eliquis for DVT; duration of treatment per PMD/primary medical team. -Keep K+ and Mg2+ WNL
[2019-03-31] MEDS: PIPERACILLIN/TAZOB 3.375 GM 3.375 GM in DEXTROSE 5%-WATER - 50 ML IVPB SCH ×2 (12:11→17:01)
--- NOTE | 2019-03-31 13:47 | PN ---
Physical Exam: SUBJECTIVE: Patient seen and examined by the bedside, AOx0 OBJECTIVE: Vital Signs Period Temp Pulse Resp BP Sys/Don Pulse Ox Last 24 Hr 98.3 F-99.9 F 82-104 18-20 100-124/62-71 94-99 GENERAL: The patient is awake, AOx0 HEAD: Microcephalic features EYES: PERRL, extraocular movements intact, sclera anicteric, conjunctiva clear. No ptosis. ENT: Ears normal, nares patent, oropharynx clear without exudates, moist mucous membranes. NECK: Trachea midline, full range of motion, supple. LUNGS: B/L crackles HEART: unable to appreciate heart soudnds due to patient gurgling ABDOMEN: J tube present, distended, soft, nontender EXTREMITIES: 2+ pulses, warm, well-perfused, no edema. NEUROLOGICAL: gait and speech not observed since patient unable to do either SKIN: Warm, dry, normal turgor, no rashes or lesions noted Laboratory Results - last 24 hr 03/31/19 06:45 Sodium 145 Potassium 3.5 Chloride 111 H Carbon Dioxide 26 Anion Gap 9 BUN 6.2 L Creatinine 1.3 Est GFR (CKD-EPI)AfAm 86.67 Est GFR (CKD-EPI)NonAf 74.78 Random Glucose 80 Calcium 8.3 L Total Bilirubin 0.3 AST 15 ALT 29 Alkaline Phosphatase 87 Total Protein 7.1 Albumin 3.0 L Active Medications Generic Name Dose Route Start Last Admin Trade Name Freq PRN Reason Stop Dose Admin Acetylcysteine 600 mg 03/27/19 20:00 03/31/19 07:25 Mucomyst 20 Oral / Inh Use Only* NEB 600 mg RBID ALEKSANDR Administration Albuterol Sulfate 1 amp 03/27/19 20:00 03/31/19 07:25 Ventolin 0.083% Nebulizer Soln - NEB 1 amp RBID ALEKSANDR Administration Albuterol/Ipratropium 1 amp 03/26/19 23:59 Duoneb - NEB QID PRN WHEEZING Apixaban 5 mg 03/27/19 10:00 03/31/19 09:59 Eliquis - PO 5 mg BID ALEKSANDR Administration Budesonide 1 amp 03/27/19 08:00 03/31/19 08:45 Pulmicort 0.5 Mg Nebulizer - NEB 1 amp RBID ALEKSANDR Administration Carbamazepine 280 mg 03/27/19 00:15 03/31/19 09:59 Tegretol Oral Suspension - GT 280 mg BID ALEKSANDR Administration Clonazepam 1 mg 03/27/19 00:00 03/31/19 06:08 Klonopin - GT 1 mg TID ALEKSANDR Administration Sodium Chloride 1,000 mls @ 75 mls/hr 03/28/19 07:45 03/31/19 08:44 Normal Saline - IV 75 mls/hr ASDIR ALEKSANDR Administration Piperacillin Sod/Tazobactam 50 mls @ 100 mls/hr 03/31/19 10:45 03/31/19 12:11 Sod 3.375 gm/ Dextrose IVPB 100 mls/hr Q8H-IV ALEKSANDR Administration Protocol Levetiracetam 1,500 mg 03/27/19 00:15 03/31/19 09:59 Keppra Oral Solution - GT 1,500 mg BID ALEKSANDR Administration Tamsulosin HCl 0.4 mg 03/27/19 10:00 03/31/19 09:59 Flomax - NR Not Given DAILY ALEKSANDR ASSESSMENT/PLAN: 28 yo male with PMH of CP, seizures, and scoliosis,was brought to the ER from [place] after he was noticed to have a fever with labored breathing and a BP of 163/98. Pt was previously admitted for aspiration pneumonia and R popliteal DVT, was DCed 03/15 on Augmentin, Prednisone taper, and Eliquis. # RLL PNA - Switched back to IV Zosyn, requested continued IV abx rx as prerequisite for return to [place]. Augmentin Suspension 600MG BID DCd - blood cx no growth after 24 hours, last blood cx Staph coagulase NEG; Urine cx no growth, endotrach sputum pending - CT Chest (wo contrast): Rt lower lobe infiltrate, small rt pleural effusion, mild basilar discoid atelectasis - CT Abdomen (wo contrast): no acute pathology - CXR unchanged from last admission. #Abnormal EKG - requested cardio consult and EKG as prerequisite for return to [place] - EKG: possible lateral infarct (age undetermined), possible inf infarct (on or before 03/11/19), compared to EKG on 03/11 ventricular rate has increased) - Cardio consult: Non specific T wave changes probably due to seizures, ischemia unlikely, monitor K and Mg - Echo (03/13): EF 65-70, LV normal size, function, RV normal function, LA and RA normal size, No regurg or pericardial effusion #Suspicion of bladder distension - diaper saturated overnight # Lactic acidosis (resolved) - Following Lactic Acid 13.7, 2.6, 5.0. 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 - New Patient This patient is new to me today: No - Critical Care Critical Care patient: No - Discharge Referral Referred to [facility] Med [facility] No ATTENDING PHYSICIAN STATEMENT I saw and evaluated the patient. I reviewed the resident's note and discussed the case with the resident. I agree with the resident's findings and plan as documented. SUBJECTIVE: OBJECTIVE: ASSESSMENT AND PLAN:
--- NOTE | 2019-03-31 13:59 | EKG ---
Test Reason : Blood Pressure : / mmHG Vent. Rate : 088 BPM Atrial Rate : 088 BPM P-R Int : 150 ms QRS Dur : 094 ms QT Int : 360 ms P-R-T Axes : 029 062 042 degrees QTc Int : 435 ms NORMAL SINUS RHYTHM MINIMAL VOLTAGE CRITERIA FOR LVH, MAY BE NORMAL VARIANT INFERIOR-POSTERIOR INFARCT (CITED ON OR BEFORE 11-MAR-2019) ABNORMAL ECG WHEN COMPARED WITH ECG OF 26-MAR-2019 18:41, VENT. RATE HAS DECREASED BY 53 BPM BORDERLINE CRITERIA FOR LATERAL INFARCT ARE NO LONGER PRESENT T WAVE INVERSION NO LONGER EVIDENT IN INFERIOR LEADS T WAVE INVERSION MORE EVIDENT IN ANTERIOR LEADS Confirmed by SUNITA CHOUDHARY MD ([id number]) on 03/31/2019 1:58:51 PM Referred By: [facility] CENTERChandrika Confirmed By:SUNITA CHOUDHARY MD
--- NOTE | 2019-03-31 19:07 | PN ---
Teaching Attending Note Name of Resident: Tony Brady ATTENDING PHYSICIAN STATEMENT I saw and evaluated the patient. I reviewed the resident's note and discussed the case with the resident. I agree with the resident's findings and plan as documented. SUBJECTIVE: Patient has no new changes. OBJECTIVE: Vital Signs Temperature 100.6 F H 03/31/19 18:59 Pulse Rate 94 H 03/31/19 18:00 Respiratory Rate 18 03/31/19 18:00 Blood Pressure 129/84 03/31/19 18:00 O2 Sat by Pulse Oximetry (%) 94 L 03/31/19 10:00 GENERAL: The patient is from [facility] , non verbal with mental retardation . HEAD: Normal with no signs of trauma. EYES: PERRL, extraocular movements intact, sclera anicteric, conjunctiva clear.. ENT: Ears normal, oropharynx clear without exudates, moist mucous membranes. NECK: Trachea midline, full range of motion, supple. LUNGS: decreased Breath sounds equal, positive for rhonchi , no crackles, no accessory muscle use. HEART: Regular rate and rhythm, S1, S2 without murmur, rub or gallop. ABDOMEN: Soft, NT, ND, normoactive bowel sounds, no guarding, no rebound, no hepatosplenomegaly, no masses. EXTREMITIES: 2+ pulses, warm, well-perfused, no edema. NEUROLOGICAL: Cranial nerves II through XII grossly intact. nonverbal , contracted. PSYCH: non verbal SKIN: Warm, dry, normal turgor, no rashes or lesions noted CBCD WBC 7.1 K/mm3 (4.0-10.0) 03/30/19 07:25 RBC 4.22 M/mm3 (4.00-5.60) 03/30/19 07:25 Hgb 11.7 GM/dL (11.7-16.9) 03/30/19 07:25 Hct 35.5 % (35.4-49) 03/30/19 07:25 MCV 84.2 fl (80-96) 03/30/19 07:25 MCHC 33.1 g/dl (32.0-35.9) 03/30/19 07:25 RDW 17.4 % (11.9-15.9) H 03/30/19 07:25 Plt Count 234 K/MM3 (134-434) 03/30/19 07:25 MPV 7.5 fl (7.5-11.1) 03/30/19 07:25 CMP Sodium 145 mmol/L (136-145) 03/31/19 06:45 Potassium 3.5 mmol/L (3.5-5.1) 03/31/19 06:45 Chloride 111 mmol/L (98-107) H 03/31/19 06:45 Carbon Dioxide 26 mmol/L (21-32) 03/31/19 06:45 Anion Gap 9 MMOL/L (8-16) 03/31/19 06:45 BUN 6.2 mg/dL (7-18) L 03/31/19 06:45 Creatinine 1.3 mg/dL (0.55-1.3) 03/31/19 06:45 Random Glucose 80 mg/dL (74-106) 03/31/19 06:45 Calcium 8.3 mg/dL (8.5-10.1) L 03/31/19 06:45 Total Bilirubin 0.3 mg/dL (0.2-1) 03/31/19 06:45 AST 15 U/L (15-37) 03/31/19 06:45 ALT 29 U/L (13-61) 03/31/19 06:45 Alkaline Phosphatase 87 U/L (45-117) 03/31/19 06:45 Total Protein 7.1 g/dl (6.4-8.2) 03/31/19 06:45 Albumin 3.0 g/dl (3.4-5.0) L 03/31/19 06:45 CARDIAC ENZYMES Creatine Kinase 620 U/L (26-308) H 03/30/19 07:25 Troponin I 0.03 ng/ml (0.00-0.05) 03/27/19 07:30 Current Medications Generic Name Dose Route Start Last Admin Trade Name Freq PRN Reason Stop Dose Admin Acetylcysteine 600 mg 03/27/19 20:00 03/31/19 07:25 Mucomyst 20 Oral / Inh Use Only* NEB 600 mg RBID ALEKSANDR Administration Albuterol Sulfate 1 amp 03/27/19 20:00 03/31/19 07:25 Ventolin 0.083% Nebulizer Soln - NEB 1 amp RBID ALEKSANDR Administration Albuterol/Ipratropium 1 amp 03/26/19 23:59 Duoneb - NEB QID PRN WHEEZING Apixaban 5 mg 03/27/19 10:00 03/31/19 09:59 Eliquis - PO 5 mg BID ALEKSANDR Administration Budesonide 1 amp 03/27/19 08:00 03/31/19 08:45 Pulmicort 0.5 Mg Nebulizer - NEB 1 amp RBID ALEKSANDR Administration Carbamazepine 280 mg 03/27/19 00:15 03/31/19 09:59 Tegretol Oral Suspension - GT 280 mg BID ALEKSANDR Administration Clonazepam 1 mg 03/27/19 00:00 03/31/19 15:39 Klonopin - GT 1 mg TID ALEKSANDR Administration Piperacillin Sod/Tazobactam 50 mls @ 100 mls/hr 03/31/19 10:45 03/31/19 17:01 Sod 3.375 gm/ Dextrose IVPB 100 mls/hr Q8H-IV ALEKSANDR Administration Protocol Levetiracetam 1,500 mg 03/27/19 00:15 03/31/19 09:59 Keppra Oral Solution - GT 1,500 mg BID ALEKSANDR Administration Tamsulosin HCl 0.4 mg 03/27/19 10:00 03/31/19 09:59 Flomax - NR Not Given DAILY [facility] Home Medications Medication Instructions Recorded Carbamazepine [Tegretol -] 280 mg GT BID 03/17/18 Cholecalciferol (Vitamin D3) 2,000 unit GT DAILY 03/17/18 [Vitamin D3] Omeprazole Magnesium [Prilosec] 20 mg GT DAILY 03/17/18 Tamsulosin HCl [Flomax -] 0.4 mg GT DAILY 03/17/18 clonazePAM [KlonoPIN -] 1 mg GT TID 03/17/18 Baclofen [Lioresal -] 10 mg PO DAILY@0600,1200 tablet 03/21/18 Budesonide [Pulmicort 0.5 mg 1 neb NEB BID 07/12/18 Nebulizer -] Diazepam [Diastat Acudial] 20 mg RC PRN PRN 07/12/18 Ipratropium/Albuterol Sulfate 3 ml IH QID PRN 07/12/18 [Iprat-Albut 0.5-3(2.5) mg/3 ml] Nystatin Ointment [Mycostatin 1 applic TP BID 07/12/18 Ointment -] Triamcinolone 0.1% Cream 1 applic TP BID 07/12/18 [Aristocort 0.1% Cream -] Scopolamine Hydrobromide 1 patch TD Q72H #10 patch.td72 07/18/18 [Transderm-Scop -] Mupirocin Ointment [Bactroban 2% 1 applic TP TID 08/11/18 Ointment -] levETIRAcetam [Keppra Oral 1,500 mg GT BID cup 10/06/18 Solution -] Baclofen 20 mg PO ASDIR 03/08/19 predniSONE [Deltasone -] See Taper PO ASDIR #20 tab 03/14/19 Apixaban [Eliquis] 5 mg PO BID 03/26/19 Aspirin 81 mg PEG 03/26/19 ASSESSMENT AND PLAN: Patient is a 28 y/o man with h/o MR, cortical blindness, HTN, microcephaly, cerebral palsy, quadriplegia, seizure disorder, scoliosis, hyponatremia, and recent hospitalization for PNA and DVT , who presented from [place] due to fever and resp distress again. # EKG changes: seen and evaluated by # s/p Sepsis: due to RLL PNA. On Augmentin po now # Gram positive bacteremia with ; G+ cocci in clusters in all 4 bottles. s/p vanco , continue Zosyn. # Acute resp distress: improved at his baseline now #H/o Seizures: cont his home meds # Recent diagnosis of DVT: cont Eliquis # H/o HTN: normotensive now # Rhabdo: s/p IVF DVT Px: Eliquis
[2019-03-31 23:03] LABS: PH,URINE 5.5 (5.0-8.0); URINE APPEARANCE CLEAR; URINE BILIRUBIN NEGATIVE (NEGATIVE); URINE COLOR YELLOW; URINE GLUCOSE (UA) NEGATIVE (NEGATIVE); URINE KETONE NEGATIVE (NEGATIVE); URINE LEUK ESTERASE NEGATIVE (NEGATIVE); URINE NITRITE NEGATIVE (NEGATIVE); URINE PROTEIN NEGATIVE (NEGATIVE); URINE UROBILINOGEN 0.2 mg/dL (0.2-1.0)
[2019-03-31] MEDS: ACETAMINOPHEN 650 MG/20.3 ML ORAL SOLUTION (CUPS) PO PRN (23:10)
[2019-04-01] MEDS ORDERED: PIPERACILLIN/TAZOBACTAM 3.375 GM VIAL IVPB ONE ×3 (01:09→17:05)
[2019-04-01] MEDS ORDERED: DEXTROSE 5%-WATER - 50 ML IVPB ONE ×3 (01:10→17:05)
[2019-04-01] MEDS: PIPERACILLIN/TAZOB 3.375 GM 3.375 GM in DEXTROSE 5%-WATER - 50 ML IVPB SCH ×3 (01:47→17:21)
[2019-04-01] MEDS: clonazePAM 0.5 MG TABLET GT SCH ×3 (05:43→23:10)
[2019-04-01] MEDS: ALBUTEROL SO4 0.083% IH SOL 2.5 MG/3 ML VIAL.NEB. NEB SCH (07:20)
[2019-04-01] MEDS: BUDESONIDE 0.5 MG/2 ML INH SUSP VIAL NEB SCH ×2 (07:20→20:48)
[2019-04-01] MEDS: ACETYLCYSTEINE 20% 200MG/ML 4 ML VIAL *FOR ORAL / INH USE ONLY NEB SCH ×2 (07:20→20:48)
[2019-04-01 07:41] LABS: HEMATOCRIT 32.2 % (35.4-49); MCH 28.6 pg (25.7-33.7); MCHC 34.2 g/dl (32.0-35.9); MEAN CELL VOLUME 83.6 fl (80-96); MEAN PLT VOLUME 7.5 fl (7.5-11.1); PLATELET COUNT 221 K/MM3 (134-434); RBC 3.85 M/mm3 (4.00-5.60); RDW 17.8 % (11.9-15.9); WHITE BLOOD COUNT 6.4 K/mm3 (4.0-10.0)
[2019-04-01 08:09] LABS: ALBUMIN 2.8 g/dl (3.4-5.0); BILIRUBIN,TOTAL 0.4 mg/dL (0.2-1); BLOOD UREA NITROGEN 11.1 mg/dL (7-18); CALCIUM 7.9 mg/dL (8.5-10.1); CREATININE 1.3 mg/dL (0.55-1.3); POTASSIUM 3.3 mmol/L (3.5-5.1); TOT PROT 6.9 g/dl (6.4-8.2)
--- NOTE | 2019-04-01 09:35 | PN ---
Progress Note, Physician History of Present Illness: No CV events overnight Tele reviewed: SB in 40s - Current Medication List Current Medications: Active Medications Acetaminophen (Tylenol Oral Solution -) 650 mg PO Q6H PRN PRN Reason: FEVER Last Admin: 03/31/19 23:10 Dose: 650 mg Acetylcysteine (Mucomyst 20 Oral / Inh Use Only*) 600 mg NEB RBID ALEKSANDR Last Admin: 04/01/19 07:20 Dose: 600 mg Albuterol Sulfate (Ventolin 0.083% Nebulizer Soln -) 1 amp NEB RBID ALEKSANDR Last Admin: 04/01/19 07:20 Dose: 1 amp Albuterol/Ipratropium (Duoneb -) 1 amp NEB QID PRN PRN Reason: WHEEZING Apixaban (Eliquis -) 5 mg PO BID [facility] Last Admin: 03/31/19 23:10 Dose: 5 mg Budesonide (Pulmicort 0.5 Mg Nebulizer -) 1 amp NEB RBID ALEKSANDR Last Admin: 04/01/19 07:20 Dose: 1 amp Carbamazepine (Tegretol Oral Suspension -) 280 mg GT BID [facility] Last Admin: 03/31/19 23:24 Dose: 280 mg Clonazepam (Klonopin -) 1 mg GT TID [facility] Last Admin: 04/01/19 05:43 Dose: 1 mg Piperacillin Sod/Tazobactam (Sod 3.375 gm/ Dextrose) 50 mls @ 100 mls/hr IVPB Q8H-IV ALEKSANDR; Protocol Last Admin: 04/01/19 01:47 Dose: 100 mls/hr Levetiracetam (Keppra Oral Solution -) 1,500 mg GT BID [facility] Last Admin: 03/31/19 23:23 Dose: 1,500 mg Tamsulosin HCl (Flomax -) 0.4 mg NR DAILY [facility] Last Admin: 03/31/19 09:59 Dose: Not Given - Objective Vital Signs: Vital Signs Temperature 98.8 F 04/01/19 05:55 Pulse Rate 85 04/01/19 05:55 Respiratory Rate 18 04/01/19 05:55 Blood Pressure 132/84 04/01/19 05:55 O2 Sat by Pulse Oximetry (%) 94 L 03/31/19 21:00 Constitutional: Yes: No Distress Eyes: Yes: Other (Open eyes to stimuli) Cardiovascular: Yes: Regular Rate and Rhythm Respiratory: Yes: CTA Bilaterally Musculoskeletal: Yes: Other (Contracted) Labs: CBC, BMP 04/01/19 06:50 04/01/19 06:50 INR, PTT INR 1.28 (0.83-1.09) H 03/26/19 21:04 Assessment/Plan IMP: 1. RLL PNA, SIRS 2. Seizure disorder 3. Severe developmental disorder 4. History of DVT on AC 5. Nonspecific T wave changes on ECG - doubt cardiac etiology REC: -cont supplimental O2/abx as per ID for PNA and bacteremia -Cont Eliquis for DVT; duration of treatment per PMD/primary medical team. -Keep K+ and Mg2+ WNL
[2019-04-01] MEDS ORDERED: PT OWN MED DRAWER 7, Y5N ONE ×2 (09:59→23:09)
[2019-04-01] MEDS: ACETAMINOPHEN 650 MG/20.3 ML ORAL SOLUTION (CUPS) PO PRN (10:14)
[2019-04-01] MEDS: TAMSULOSIN HCL 0.4 MG CAP NR SCH (10:15)
[2019-04-01] MEDS: levETIRAcetam 500 MG/5 ML ORAL SOLUTION (UNIT-DOSE CUPS) GT SCH ×2 (10:15→23:10)
[2019-04-01] MEDS: APIXABAN 5 MG TABLET PO SCH ×2 (10:15→23:10)
[2019-04-01] MEDS: carBAMazepine 200 MG/10 ML UNIT-DOSE CUP GT SCH ×2 (10:16→23:11)
--- NOTE | 2019-04-01 18:17 | PN ---
Progress Note (short form) - Note Progress Note: Patient is stable, no fever or chill. Vital Signs Temperature 98.3 F 04/01/19 13:54 Pulse Rate 79 04/01/19 13:54 Respiratory Rate 18 04/01/19 13:54 Blood Pressure 122/71 04/01/19 13:54 O2 Sat by Pulse Oximetry (%) 98 04/01/19 09:00 GENERAL: The patient is from [facility] , non verbal with mental retardation . HEAD: Normal with no signs of trauma. EYES: PERRL, extraocular movements intact, sclera anicteric, conjunctiva clear.. ENT: Ears normal, oropharynx clear without exudates, moist mucous membranes. NECK: Trachea midline, full range of motion, supple. LUNGS: decreased Breath sounds equal, positive for rhonchi , no crackles, no accessory muscle use. HEART: Regular rate and rhythm, S1, S2 without murmur, rub or gallop. ABDOMEN: Soft, NT, ND, normoactive bowel sounds, no guarding, no rebound, no hepatosplenomegaly, no masses. EXTREMITIES: 2+ pulses, warm, well-perfused, no edema. NEUROLOGICAL: Cranial nerves II through XII grossly intact. nonverbal , contracted. PSYCH: non verbal SKIN: Warm, dry, normal turgor, no rashes or lesions noted CBCD WBC 6.4 K/mm3 (4.0-10.0) 04/01/19 06:50 RBC 3.85 M/mm3 (4.00-5.60) L 04/01/19 06:50 Hgb 11.0 GM/dL (11.7-16.9) L 04/01/19 06:50 Hct 32.2 % (35.4-49) L 04/01/19 06:50 MCV 83.6 fl (80-96) 04/01/19 06:50 MCHC 34.2 g/dl (32.0-35.9) 04/01/19 06:50 RDW 17.8 % (11.9-15.9) H 04/01/19 06:50 Plt Count 221 K/MM3 (134-434) 04/01/19 06:50 MPV 7.5 fl (7.5-11.1) 04/01/19 06:50 CMP Sodium 145 mmol/L (136-145) 04/01/19 06:50 Potassium 3.3 mmol/L (3.5-5.1) L 04/01/19 06:50 Chloride 110 mmol/L (98-107) H 04/01/19 06:50 Carbon Dioxide 27 mmol/L (21-32) 04/01/19 06:50 Anion Gap 8 MMOL/L (8-16) 04/01/19 06:50 BUN 11.1 mg/dL (7-18) 04/01/19 06:50 Creatinine 1.3 mg/dL (0.55-1.3) 04/01/19 06:50 Random Glucose 90 mg/dL (74-106) 04/01/19 06:50 Calcium 7.9 mg/dL (8.5-10.1) L 04/01/19 06:50 Total Bilirubin 0.4 mg/dL (0.2-1) 04/01/19 06:50 AST 15 U/L (15-37) 04/01/19 06:50 ALT 25 U/L (13-61) 04/01/19 06:50 Alkaline Phosphatase 77 U/L (45-117) 04/01/19 06:50 Total Protein 6.9 g/dl (6.4-8.2) 04/01/19 06:50 Albumin 2.8 g/dl (3.4-5.0) L 04/01/19 06:50 CARDIAC ENZYMES Creatine Kinase 620 U/L (26-308) H 03/30/19 07:25 Troponin I 0.03 ng/ml (0.00-0.05) 03/27/19 07:30 Current Medications Generic Name Dose Route Start Last Admin Trade Name Freq PRN Reason Stop Dose Admin Acetaminophen 650 mg 03/31/19 19:12 04/01/19 10:14 Tylenol Oral Solution - PO 650 mg Q6H PRN Administration FEVER Acetylcysteine 600 mg 03/27/19 20:00 04/01/19 07:20 Mucomyst 20 Oral / Inh Use Only* NEB 600 mg RBID ALEKSANDR Administration Albuterol Sulfate 1 amp 03/27/19 20:00 04/01/19 07:20 Ventolin 0.083% Nebulizer Soln - NEB 1 amp RBID ALEKSANDR Administration Albuterol/Ipratropium 1 amp 03/26/19 23:59 Duoneb - NEB QID PRN WHEEZING Apixaban 5 mg 03/27/19 10:00 04/01/19 10:15 Eliquis - PO 5 mg BID ALEKSANDR Administration Budesonide 1 amp 03/27/19 08:00 04/01/19 07:20 Pulmicort 0.5 Mg Nebulizer - NEB 1 amp RBID ALEKSANDR Administration Carbamazepine 280 mg 03/27/19 00:15 04/01/19 10:16 Tegretol Oral Suspension - GT 280 mg BID ALEKSANDR Administration Clonazepam 1 mg 03/27/19 00:00 04/01/19 13:20 Klonopin - GT 1 mg TID ALEKSANDR Administration Piperacillin Sod/Tazobactam 50 mls @ 100 mls/hr 03/31/19 10:45 04/01/19 17:21 Sod 3.375 gm/ Dextrose IVPB 100 mls/hr Q8H-IV ALEKSANDR Administration Protocol Levetiracetam 1,500 mg 03/27/19 00:15 04/01/19 10:15 Keppra Oral Solution - GT 1,500 mg BID ALEKSANDR Administration Potassium Chloride 20 meq 04/01/19 22:00 Potassium Chloride Oral Liquid PO 04/03/19 21:59 BID ALEKSANDR Tamsulosin HCl 0.4 mg 03/27/19 10:00 04/01/19 10:15 Flomax - NR 0.4 mg DAILY ALEKSANDR Administration Patient is a 28 y/o man with h/o MR, cortical blindness, HTN, microcephaly, cerebral palsy, quadriplegia, seizure disorder, scoliosis, hyponatremia, and recent hospitalization for PNA and DVT , who presented from [place] due to fever and resp distress again. # EKG changes: seen and evaluated by and , as per cardio nothing to do , will repeat the EKG in am. # s/p Sepsis: due to RLL PNA. continue IV antibiotic Zosyn for now # Gram positive bacteremia with ; G+ cocci in clusters in all 4 bottles. s/p vanco , continue Zosyn. # Acute resp distress: improved at his baseline now #H/o Seizures: cont his home meds # Recent diagnosis of DVT: cont Eliquis # H/o HTN: normotensive now # Rhabdo: s/p IVF DVT Px: Eliquis Visit type - Emergency Visit Emergency Visit: Yes ED Registration Date: 03/26/19 Care time: The patient presented to the Emergency Department on the above date and was hospitalized for further evaluation of their emergent condition. - New Patient This patient is new to me today: No - Critical Care Critical Care patient: No - Discharge Referral Referred to [facility] No
[2019-04-01] MEDS: POTASSIUM CHLORIDE ORAL LIQUID 20 MEQ/15 ML PO SCH (23:10)
[2019-04-02] MEDS ORDERED: DEXTROSE 5%-WATER - 50 ML IVPB ONE ×3 (01:26→17:30)
[2019-04-02] MEDS ORDERED: PIPERACILLIN/TAZOBACTAM 3.375 GM VIAL IVPB ONE ×3 (01:26→17:30)
[2019-04-02] MEDS: PIPERACILLIN/TAZOB 3.375 GM 3.375 GM in DEXTROSE 5%-WATER - 50 ML IVPB SCH ×3 (02:25→17:50)
[2019-04-02] MEDS: ACETAMINOPHEN 650 MG/20.3 ML ORAL SOLUTION (CUPS) PO PRN ×2 (02:53→18:16)
[2019-04-02] MEDS: clonazePAM 0.5 MG TABLET GT SCH ×3 (05:50→23:00)
--- NOTE | 2019-04-02 07:55 | PN ---
Teaching Attending Note Name of Resident: Tony Brady ATTENDING PHYSICIAN STATEMENT I saw and evaluated the patient. I reviewed the resident's note and discussed the case with the resident. I agree with the resident's findings and plan as documented. SUBJECTIVE: Patient had a low grade fever over night. OBJECTIVE: Vital Signs Temperature 97.7 F 04/02/19 06:00 Pulse Rate 81 04/02/19 06:00 Respiratory Rate 18 04/02/19 06:00 Blood Pressure 106/61 04/02/19 06:00 O2 Sat by Pulse Oximetry (%) 100 04/01/19 21:00 GENERAL: The patient is from [facility] , non verbal with mental retardation . HEAD: Normal with no signs of trauma. EYES: PERRL, extraocular movements intact, sclera anicteric, conjunctiva clear.. ENT: Ears normal, oropharynx clear without exudates, moist mucous membranes. NECK: Trachea midline, full range of motion, supple. LUNGS: decreased Breath sounds equal, positive for rhonchi , no crackles, no accessory muscle use. HEART: Regular rate and rhythm, S1, S2 without murmur, rub or gallop. ABDOMEN: Soft, NT, ND, normoactive bowel sounds, no guarding, no rebound, no hepatosplenomegaly, no masses. EXTREMITIES: 2+ pulses, warm, well-perfused, no edema. NEUROLOGICAL: Cranial nerves II through XII grossly intact. nonverbal , contracted. PSYCH: non verbal SKIN: Warm, dry, normal turgor, no rashes or lesions noted CBCD WBC 6.4 K/mm3 (4.0-10.0) 04/01/19 06:50 RBC 3.85 M/mm3 (4.00-5.60) L 04/01/19 06:50 Hgb 11.0 GM/dL (11.7-16.9) L 04/01/19 06:50 Hct 32.2 % (35.4-49) L 04/01/19 06:50 MCV 83.6 fl (80-96) 04/01/19 06:50 MCHC 34.2 g/dl (32.0-35.9) 04/01/19 06:50 RDW 17.8 % (11.9-15.9) H 04/01/19 06:50 Plt Count 221 K/MM3 (134-434) 04/01/19 06:50 MPV 7.5 fl (7.5-11.1) 04/01/19 06:50 CMP Sodium 145 mmol/L (136-145) 04/01/19 06:50 Potassium 3.3 mmol/L (3.5-5.1) L 04/01/19 06:50 Chloride 110 mmol/L (98-107) H 04/01/19 06:50 Carbon Dioxide 27 mmol/L (21-32) 04/01/19 06:50 Anion Gap 8 MMOL/L (8-16) 04/01/19 06:50 BUN 11.1 mg/dL (7-18) 04/01/19 06:50 Creatinine 1.3 mg/dL (0.55-1.3) 04/01/19 06:50 Random Glucose 90 mg/dL (74-106) 04/01/19 06:50 Calcium 7.9 mg/dL (8.5-10.1) L 04/01/19 06:50 Total Bilirubin 0.4 mg/dL (0.2-1) 04/01/19 06:50 AST 15 U/L (15-37) 04/01/19 06:50 ALT 25 U/L (13-61) 04/01/19 06:50 Alkaline Phosphatase 77 U/L (45-117) 04/01/19 06:50 Total Protein 6.9 g/dl (6.4-8.2) 04/01/19 06:50 Albumin 2.8 g/dl (3.4-5.0) L 04/01/19 06:50 CARDIAC ENZYMES Creatine Kinase 620 U/L (26-308) H 03/30/19 07:25 Troponin I 0.03 ng/ml (0.00-0.05) 03/27/19 07:30 Current Medications Generic Name Dose Route Start Last Admin Trade Name Freq PRN Reason Stop Dose Admin Acetaminophen 650 mg 03/31/19 19:12 04/02/19 02:53 Tylenol Oral Solution - PO 650 mg Q6H PRN Administration FEVER Acetylcysteine 600 mg 03/27/19 20:00 04/01/19 20:48 Mucomyst 20 Oral / Inh Use Only* NEB 600 mg RBID ALEKSANDR Administration Albuterol/Ipratropium 1 amp 03/26/19 23:59 04/01/19 20:49 Duoneb - NEB 1 amp QID PRN Administration WHEEZING Apixaban 5 mg 03/27/19 10:00 04/01/19 23:10 Eliquis - PO 5 mg BID ALEKSANDR Administration Budesonide 1 amp 03/27/19 08:00 04/01/19 20:48 Pulmicort 0.5 Mg Nebulizer - NEB 1 amp RBID ALEKSANDR Administration Carbamazepine 280 mg 03/27/19 00:15 04/01/19 23:11 Tegretol Oral Suspension - GT 280 mg BID ALEKSANDR Administration Clonazepam 1 mg 03/27/19 00:00 04/02/19 05:50 Klonopin - GT 1 mg TID ALEKSANDR Administration Piperacillin Sod/Tazobactam 50 mls @ 100 mls/hr 03/31/19 10:45 04/02/19 02:25 Sod 3.375 gm/ Dextrose IVPB 100 mls/hr Q8H-IV ALEKSANDR Administration Protocol Levetiracetam 1,500 mg 03/27/19 00:15 04/01/19 23:10 Keppra Oral Solution - GT 1,500 mg BID ALEKSANDR Administration Potassium Chloride 20 meq 04/01/19 22:00 04/01/19 23:10 Potassium Chloride Oral Liquid PO 04/03/19 21:59 20 meq BID ALEKSANDR Administration Tamsulosin HCl 0.4 mg 03/27/19 10:00 04/01/19 10:15 Flomax - NR 0.4 mg DAILY ALEKSANDR Administration Home Medications Medication Instructions Recorded Carbamazepine [Tegretol -] 280 mg GT BID 03/17/18 Cholecalciferol (Vitamin D3) 2,000 unit GT DAILY 03/17/18 [Vitamin D3] Omeprazole Magnesium [Prilosec] 20 mg GT DAILY 03/17/18 Tamsulosin HCl [Flomax -] 0.4 mg GT DAILY 03/17/18 clonazePAM [KlonoPIN -] 1 mg GT TID 03/17/18 Baclofen [Lioresal -] 10 mg PO DAILY@0600,1200 tablet 03/21/18 Budesonide [Pulmicort 0.5 mg 1 neb NEB BID 07/12/18 Nebulizer -] Diazepam [Diastat Acudial] 20 mg RC PRN PRN 07/12/18 Ipratropium/Albuterol Sulfate 3 ml IH QID PRN 07/12/18 [Iprat-Albut 0.5-3(2.5) mg/3 ml] Nystatin Ointment [Mycostatin 1 applic TP BID 07/12/18 Ointment -] Triamcinolone 0.1% Cream 1 applic TP BID 07/12/18 [Aristocort 0.1% Cream -] Scopolamine Hydrobromide 1 patch TD Q72H #10 patch.td72 07/18/18 [Transderm-Scop -] Mupirocin Ointment [Bactroban 2% 1 applic TP TID 08/11/18 Ointment -] levETIRAcetam [Keppra Oral 1,500 mg GT BID cup 10/06/18 Solution -] Baclofen 20 mg PO ASDIR 03/08/19 predniSONE [Deltasone -] See Taper PO ASDIR #20 tab 03/14/19 Apixaban [Eliquis] 5 mg PO BID 03/26/19 Aspirin 81 mg PEG 03/26/19 Microbiology 03/30/19 04:00 Sputum - Endotracheal Suction W/O Vent Gram Stain - Final 03/30/19 04:00 Sputum - Endotracheal Suction W/O Vent Sputum Culture - Final Citrobacter Koseri 03/31/19 22:15 Urine - Urine - Catheterized Urine Culture - Final NO GROWTH OBTAINED 03/28/19 08:15 Blood - Peripheral Venous Blood Culture - Final NO GROWTH AFTER 5 DAYS INCUBATION 03/28/19 08:30 Blood - Peripheral Venous Blood Culture - Final NO GROWTH AFTER 5 DAYS INCUBATION 03/31/19 22:00 Blood - Peripheral Venous Blood Culture - Preliminary NO GROWTH OBTAINED AFTER 24 HOURS, INCUBATION TO CONTINUE FOR 4 DAYS. 03/31/19 22:00 Blood - Peripheral Venous Blood Culture - Preliminary NO GROWTH OBTAINED AFTER 24 HOURS, INCUBATION TO CONTINUE FOR 4 DAYS. 03/26/19 18:20 Blood - Peripheral Venous Blood Culture - Final Staph Capitis Subsp Capitis 03/26/19 18:20 Blood - Peripheral Venous Blood Culture - Final Staph Capitis Subsp Capitis 03/26/19 21:10 Urine - Urine - Catheterized Urine Culture - Final NO GROWTH OBTAINED ASSESSMENT AND PLAN: Patient is a 28 y/o man with h/o MR, cortical blindness, HTN, microcephaly, cerebral palsy, quadriplegia, seizure disorder, scoliosis, hyponatremia, and recent hospitalization for PNA and DVT , who presented from [place] due to fever and resp distress again. # EKG changes: seen and evaluated by and , as per cardio nothing to do ,will repeat the EKG in am. # s/p Sepsis: due to RLL PNA. continue IV antibiotic Zosyn , since patient had low grade fever , will repeat the cxr, will repeat the cbc for am. # Gram positive bacteremia with ; G+ cocci in clusters in all 4 bottles. s/p vanco , continue Zosyn. # Acute resp distress: improved at his baseline now #H/o Seizures: cont his home meds # Recent diagnosis of DVT: cont Eliquis # H/o HTN: normotensive now # Rhabdo: s/p IVF DVT Px: Eliquis
[2019-04-02] MEDS: ACETYLCYSTEINE 20% 200MG/ML 4 ML VIAL *FOR ORAL / INH USE ONLY NEB SCH ×2 (08:40→19:55)
[2019-04-02] MEDS: BUDESONIDE 0.5 MG/2 ML INH SUSP VIAL NEB SCH ×2 (08:41→19:55)
[2019-04-02] MEDS: TAMSULOSIN HCL 0.4 MG CAP NR SCH (09:07)
[2019-04-02] MEDS: POTASSIUM CHLORIDE ORAL LIQUID 20 MEQ/15 ML PO SCH ×2 (09:07→23:00)
[2019-04-02] MEDS: APIXABAN 5 MG TABLET PO SCH ×2 (09:07→23:00)
[2019-04-02] MEDS ORDERED: PT OWN MED DRAWER 7, Y5N ONE (09:10)
[2019-04-02] MEDS: levETIRAcetam 500 MG/5 ML ORAL SOLUTION (UNIT-DOSE CUPS) GT SCH ×2 (09:13→23:01)
[2019-04-02] MEDS: carBAMazepine 200 MG/10 ML UNIT-DOSE CUP GT SCH ×2 (09:13→23:01)
--- NOTE | 2019-04-02 10:20 | PN ---
Progress Note, Physician History of Present Illness: No CV events Tele: NSR - Current Medication List Current Medications: Active Medications Acetaminophen (Tylenol Oral Solution -) 650 mg PO Q6H PRN PRN Reason: FEVER Last Admin: 04/02/19 02:53 Dose: 650 mg Acetylcysteine (Mucomyst 20 Oral / Inh Use Only*) 600 mg NEB RBID [facility] Last Admin: 04/02/19 08:40 Dose: 600 mg Albuterol/Ipratropium (Duoneb -) 1 amp NEB QID PRN PRN Reason: WHEEZING Last Admin: 04/01/19 20:49 Dose: 1 amp Apixaban (Eliquis -) 5 mg PO BID [facility] Last Admin: 04/02/19 09:07 Dose: 5 mg Budesonide (Pulmicort 0.5 Mg Nebulizer -) 1 amp NEB RBID [facility] Last Admin: 04/02/19 08:41 Dose: 1 amp Carbamazepine (Tegretol Oral Suspension -) 280 mg GT BID [facility] Last Admin: 04/02/19 09:13 Dose: 280 mg Clonazepam (Klonopin -) 1 mg GT TID [facility] Last Admin: 04/02/19 05:50 Dose: 1 mg Piperacillin Sod/Tazobactam (Sod 3.375 gm/ Dextrose) 50 mls @ 100 mls/hr IVPB Q8H-IV ALEKSANDR; Protocol Last Admin: 04/02/19 09:07 Dose: 100 mls/hr Levetiracetam (Keppra Oral Solution -) 1,500 mg GT BID [facility] Last Admin: 04/02/19 09:13 Dose: 1,500 mg Potassium Chloride (Potassium Chloride Oral Liquid) 20 meq PO BID [facility] Stop: 04/03/19 21:59 Last Admin: 04/02/19 09:07 Dose: 20 meq Tamsulosin HCl (Flomax -) 0.4 mg NR DAILY [facility] Last Admin: 04/02/19 09:07 Dose: 0.4 mg - Objective Vital Signs: Vital Signs Temperature 97.7 F 04/02/19 06:00 Pulse Rate 81 04/02/19 06:00 Respiratory Rate 18 04/02/19 06:00 Blood Pressure 106/61 04/02/19 06:00 O2 Sat by Pulse Oximetry (%) 100 04/01/19 21:00 Constitutional: Yes: No Distress Cardiovascular: Yes: Regular Rate and Rhythm Respiratory: Yes: CTA Bilaterally Musculoskeletal: Yes: Other (Contracted) Labs: CBC, BMP 04/01/19 06:50 04/01/19 06:50 INR, PTT INR 1.28 (0.83-1.09) H 03/26/19 21:04 Assessment/Plan IMP: 1. RLL PNA, SIRS 2. Seizure disorder 3. Severe developmental disorder 4. History of DVT on AC 5. Nonspecific T wave changes on ECG - doubt cardiac etiology REC: -cont supplimental O2/abx as per ID for PNA and bacteremia -Cont Eliquis for DVT; duration of treatment per PMD/primary medical team. -Keep K+ and Mg2+ WNL
--- NOTE | 2019-04-02 12:49 | PN ---
Physical Exam: SUBJECTIVE: Patient seen and examined by the bedside, AOx0. OBJECTIVE: Vital Signs Period Temp Pulse Resp BP Sys/Don Pulse Ox Last 24 Hr 97.7 F-100.4 F 79-102 18-19 106-128/56-78 98-100 GENERAL: The patient is awake, AOx0 HEAD: Microcephalic features EYES: PERRL, extraocular movements intact, sclera anicteric, conjunctiva clear. No ptosis. NECK: Trachea midline, full range of motion, supple. LUNGS: B/L crackles HEART: unable to appreciate heart soudnds due to patient gurgling ABDOMEN: J tube present, distended, soft, nontender EXTREMITIES: 2+ pulses, warm, well-perfused, no edema. NEUROLOGICAL: gait and speech not observed since patient unable to do either SKIN: Warm, dry, normal turgor, no rashes or lesions noted Active Medications Generic Name Dose Route Start Last Admin Trade Name Freq PRN Reason Stop Dose Admin Acetaminophen 650 mg 03/31/19 19:12 04/02/19 02:53 Tylenol Oral Solution - PO 650 mg Q6H PRN Administration FEVER Acetylcysteine 600 mg 03/27/19 20:00 04/02/19 08:40 Mucomyst 20 Oral / Inh Use Only* NEB 600 mg RBID ALEKSANDR Administration Albuterol/Ipratropium 1 amp 03/26/19 23:59 04/01/19 20:49 Duoneb - NEB 1 amp QID PRN Administration WHEEZING Apixaban 5 mg 03/27/19 10:00 04/02/19 09:07 Eliquis - PO 5 mg BID ALEKSANDR Administration Budesonide 1 amp 03/27/19 08:00 04/02/19 08:41 Pulmicort 0.5 Mg Nebulizer - NEB 1 amp RBID ALEKSANDR Administration Carbamazepine 280 mg 03/27/19 00:15 04/02/19 09:13 Tegretol Oral Suspension - GT 280 mg BID ALEKSANDR Administration Clonazepam 1 mg 03/27/19 00:00 04/02/19 05:50 Klonopin - GT 1 mg TID ALEKSANDR Administration Piperacillin Sod/Tazobactam 50 mls @ 100 mls/hr 03/31/19 10:45 04/02/19 09:07 Sod 3.375 gm/ Dextrose IVPB 100 mls/hr Q8H-IV ALEKSANDR Administration Protocol Levetiracetam 1,500 mg 03/27/19 00:15 04/02/19 09:13 Keppra Oral Solution - GT 1,500 mg BID ALEKSANDR Administration Potassium Chloride 20 meq 04/01/19 22:00 04/02/19 09:07 Potassium Chloride Oral Liquid PO 04/03/19 21:59 20 meq BID ALEKSANDR Administration Tamsulosin HCl 0.4 mg 03/27/19 10:00 04/02/19 09:07 Flomax - NR 0.4 mg DAILY ALEKSANDR Administration ASSESSMENT/PLAN: 28 yo male with PMH of CP, seizures, and scoliosis,was brought to the ER from [place] after he was noticed to have a fever with labored breathing and a BP of 163/98. Pt was previously admitted for aspiration pneumonia and R popliteal DVT, was DCed 03/15 on Augmentin, Prednisone taper, and Eliquis. # RLL PNA - IV Zosyn day 3 - fever of 100.6 on 02/28 - Repeat blood cx no growth after 24 hours, last blood cx Staph Capitis - Endotrach sputum Citrobacter Koseri - Urine cx no growth #Abnormal EKG - EKG: possible lateral infarct (age undetermined), possible inf infarct (on or before 03/11/19), compared to EKG on 03/11 vent rate has increased - Cardio consult: Non specific T wave changes probably due to seizures, ischemia unlikely, monitor K and Mg - Echo (03/13): EF 65-70, LV normal size, function, RV normal function, LA and RA normal size, No regurg or pericardial effusion #Suspicion of bladder distension - diaper saturated overnight # Hx of seizures - CK initially elevated, likely rhabdo due to seizures 1270, 916, 882, 620 - Home meds: Tegratol, Keppra, Clonazepam #FEN - IV NS - Jevity G tube, target not reached consulted stove carriage operator #DVT PE - continue Eliquis (Hx of Rt popliteal DVT) Visit type - Emergency Visit Emergency Visit: Yes ED Registration Date: 03/26/19 Care time: The patient presented to the Emergency Department on the above date and was hospitalized for further evaluation of their emergent condition. - New Patient This patient is new to me today: No - Critical Care Critical Care patient: No - Discharge Referral Referred to [facility] No ATTENDING PHYSICIAN STATEMENT I saw and evaluated the patient. I reviewed the resident's note and discussed the case with the resident. I agree with the resident's findings and plan as documented. SUBJECTIVE: OBJECTIVE: ASSESSMENT AND PLAN:
[2019-04-03] MEDS ORDERED: PIPERACILLIN/TAZOBACTAM 3.375 GM VIAL IVPB ONE ×2 (01:08→08:59)
[2019-04-03] MEDS ORDERED: DEXTROSE 5%-WATER - 50 ML IVPB ONE ×2 (01:09→08:59)
[2019-04-03] MEDS: PIPERACILLIN/TAZOB 3.375 GM 3.375 GM in DEXTROSE 5%-WATER - 50 ML IVPB SCH ×2 (01:58→11:09)
[2019-04-03 07:40] LABS: ALBUMIN 2.7 g/dl (3.4-5.0); BILIRUBIN,TOTAL 0.3 mg/dL (0.2-1); BLOOD UREA NITROGEN 15.8 mg/dL (7-18); CALCIUM 8.3 mg/dL (8.5-10.1); CREATININE 1.1 mg/dL (0.55-1.3); POTASSIUM 3.7 mmol/L (3.5-5.1)
[2019-04-03] MEDS: BUDESONIDE 0.5 MG/2 ML INH SUSP VIAL NEB SCH (07:45)
[2019-04-03] MEDS: ACETYLCYSTEINE 20% 200MG/ML 4 ML VIAL *FOR ORAL / INH USE ONLY NEB SCH ×2 (07:46→08:04)
[2019-04-03] MEDS ORDERED: ALBUTEROL SO4 0.083% IH SOL 2.5 MG/3 ML VIAL.NEB. NEB SCH ×3 (08:00→08:06)
[2019-04-03 08:09] LABS: HEMATOCRIT 33.5 % (35.4-49); HEMOGLOBIN 11.1 GM/dL (11.7-16.9); MCH 28.6 pg (25.7-33.7); MCHC 33.1 g/dl (32.0-35.9); MEAN CELL VOLUME 86.4 fl (80-96); MEAN PLT VOLUME 7.8 fl (7.5-11.1); PLATELET COUNT 228 K/MM3 (134-434); RBC 3.87 M/mm3 (4.00-5.60); RDW 16.8 % (11.9-15.9); WHITE BLOOD COUNT 7.9 K/mm3 (4.0-10.0)
--- NOTE | 2019-04-03 10:02 | PN ---
Progress Note, Physician Chief Complaint: pna History of Present Illness: contracted, non-verbal, not cooperative with exam/instructions calm - Current Medication List Current Medications: Active Medications Acetaminophen (Tylenol Oral Solution -) 650 mg PO Q6H PRN PRN Reason: FEVER Last Admin: 04/02/19 18:16 Dose: 650 mg Acetylcysteine (Mucomyst 20 Oral / Inh Use Only*) 600 mg NEB RBID ALEKSANDR Last Admin: 04/03/19 08:04 Dose: 600 mg Albuterol Sulfate (Ventolin 0.083% Nebulizer Soln -) 1 amp NEB RBID ALEKSANDR Albuterol/Ipratropium (Duoneb -) 1 amp NEB QID PRN PRN Reason: WHEEZING Last Admin: 04/01/19 20:49 Dose: 1 amp Apixaban (Eliquis -) 5 mg PO BID [facility] Last Admin: 04/02/19 23:00 Dose: 5 mg Budesonide (Pulmicort 0.5 Mg Nebulizer -) 1 amp NEB RBID ALEKSANDR Last Admin: 04/03/19 07:45 Dose: 1 amp Carbamazepine (Tegretol Oral Suspension -) 280 mg GT BID [facility] Last Admin: 04/02/19 23:01 Dose: 280 mg Piperacillin Sod/Tazobactam (Sod 3.375 gm/ Dextrose) 50 mls @ 100 mls/hr IVPB Q8H-IV ALEKSANDR; Protocol Last Admin: 04/03/19 01:58 Dose: 100 mls/hr Levetiracetam (Keppra Oral Solution -) 1,500 mg GT BID [facility] Last Admin: 04/02/19 23:01 Dose: 1,500 mg Potassium Chloride (Potassium Chloride Oral Liquid) 20 meq PO BID [facility] Stop: 04/03/19 21:59 Last Admin: 04/02/19 23:00 Dose: 20 meq Tamsulosin HCl (Flomax -) 0.4 mg NR DAILY [facility] Last Admin: 04/02/19 09:07 Dose: 0.4 mg - Objective Vital Signs: Vital Signs Temperature 98.8 F 04/03/19 08:26 Pulse Rate 83 04/03/19 08:26 Respiratory Rate 17 04/03/19 08:26 Blood Pressure 112/61 04/03/19 08:26 O2 Sat by Pulse Oximetry (%) 100 04/02/19 21:00 Constitutional: Yes: Well Nourished, No Distress, Calm Cardiovascular: Yes: Regular Rate and Rhythm, S1, S2. No: Gallop, Murmur Respiratory: Yes: Regular, CTA Bilaterally (anteriorly). No: Accessory Muscle Use Extremities: No: Cold Edema: No Neurological: Yes: Alert. No: Seizure Psychiatric: No: Agitated Labs: CBC, BMP 04/03/19 06:45 04/03/19 06:45 INR, PTT INR 1.28 (0.83-1.09) H 03/26/19 21:04 Assessment/Plan tele; NSR IMP: 1. RLL PNA, SIRS 2. Seizure disorder 3. Severe developmental disorder 4. History of DVT on AC 5. Nonspecific T wave changes on ECG - doubt cardiac etiology REC: -cont supplimental O2/abx as per ID for PNA and bacteremia -Cont Eliquis for DVT; duration of treatment per PMD/primary medical team. -Keep K+ and Mg2+ WNL d/c tele
[2019-04-03] MEDS ORDERED: PT OWN MED DRAWER 7, Y5N ONE (11:05)
[2019-04-03] MEDS: POTASSIUM CHLORIDE ORAL LIQUID 20 MEQ/15 ML PO SCH (11:09)
[2019-04-03] MEDS: TAMSULOSIN HCL 0.4 MG CAP NR SCH (11:09)
[2019-04-03] MEDS: APIXABAN 5 MG TABLET PO SCH (11:09)
[2019-04-03] MEDS: levETIRAcetam 500 MG/5 ML ORAL SOLUTION (UNIT-DOSE CUPS) GT SCH (11:10)
[2019-04-03] MEDS: carBAMazepine 200 MG/10 ML UNIT-DOSE CUP GT SCH (11:11)
--- NOTE | 2019-04-03 12:58 | PN ---
Teaching Attending Note Name of Resident: Tony Brady ATTENDING PHYSICIAN STATEMENT I saw and evaluated the patient. I reviewed the resident's note and discussed the case with the resident. I agree with the resident's findings and plan as documented. SUBJECTIVE: Patient is feeling better with no acute distress, smiles when you call his name. OBJECTIVE: Vital Signs Temperature 98.8 F 04/03/19 08:26 Pulse Rate 83 04/03/19 08:26 Respiratory Rate 17 04/03/19 08:26 Blood Pressure 112/61 04/03/19 08:26 O2 Sat by Pulse Oximetry (%) 99 04/03/19 09:00 GENERAL: The patient is from [facility] , non verbal with severe mental retardation . HEAD: Normal with no signs of trauma. EYES: PERRL, extraocular movements intact, sclera anicteric, conjunctiva clear.. ENT: Ears normal, oropharynx clear without exudates, moist mucous membranes. NECK: Trachea midline, full range of motion, supple. LUNGS: decreased Breath sounds equal, positive for rhonchi , no crackles, no accessory muscle use. HEART: Regular rate and rhythm, S1, S2 without murmur, rub or gallop. ABDOMEN: Soft, NT, ND, normoactive bowel sounds, no guarding, no rebound, no hepatosplenomegaly, no masses. EXTREMITIES: 2+ pulses, warm, well-perfused, no edema. NEUROLOGICAL: Cranial nerves II through XII grossly intact. nonverbal , contracted. PSYCH: non verbal SKIN: Warm, dry, normal turgor, no rashes or lesions noted CBCD WBC 7.9 K/mm3 (4.0-10.0) 04/03/19 06:45 RBC 3.87 M/mm3 (4.00-5.60) L 04/03/19 06:45 Hgb 11.1 GM/dL (11.7-16.9) L 04/03/19 06:45 Hct 33.5 % (35.4-49) L 04/03/19 06:45 MCV 86.4 fl (80-96) 04/03/19 06:45 MCHC 33.1 g/dl (32.0-35.9) 04/03/19 06:45 RDW 16.8 % (11.9-15.9) H 04/03/19 06:45 Plt Count 228 K/MM3 (134-434) 04/03/19 06:45 MPV 7.8 fl (7.5-11.1) 04/03/19 06:45 CMP Sodium 143 mmol/L (136-145) 04/03/19 06:45 Potassium 3.7 mmol/L (3.5-5.1) 04/03/19 06:45 Chloride 107 mmol/L (98-107) 04/03/19 06:45 Carbon Dioxide 29 mmol/L (21-32) 04/03/19 06:45 Anion Gap 7 MMOL/L (8-16) L 04/03/19 06:45 BUN 15.8 mg/dL (7-18) 04/03/19 06:45 Creatinine 1.1 mg/dL (0.55-1.3) 04/03/19 06:45 Random Glucose 110 mg/dL (74-106) H 04/03/19 06:45 Calcium 8.3 mg/dL (8.5-10.1) L 04/03/19 06:45 Total Bilirubin 0.3 mg/dL (0.2-1) 04/03/19 06:45 AST 14 U/L (15-37) L 04/03/19 06:45 ALT 23 U/L (13-61) 04/03/19 06:45 Alkaline Phosphatase 72 U/L (45-117) 04/03/19 06:45 Total Protein 7.0 g/dl (6.4-8.2) 04/03/19 06:45 Albumin 2.7 g/dl (3.4-5.0) L 04/03/19 06:45 CARDIAC ENZYMES Creatine Kinase 620 U/L (26-308) H 03/30/19 07:25 Troponin I 0.03 ng/ml (0.00-0.05) 03/27/19 07:30 Current Medications Generic Name Dose Route Start Last Admin Trade Name Freq PRN Reason Stop Dose Admin Acetaminophen 650 mg 03/31/19 19:12 04/02/19 18:16 Tylenol Oral Solution - PO 650 mg Q6H PRN Administration FEVER Acetylcysteine 600 mg 03/27/19 20:00 04/03/19 08:04 Mucomyst 20 Oral / Inh Use Only* NEB 600 mg RBID ALEKSANDR Administration Albuterol Sulfate 1 amp 08/05/19 08:06 Ventolin 0.083% Nebulizer Soln - NEB RBID ALEKSANDR Albuterol/Ipratropium 1 amp 03/26/19 23:59 04/01/19 20:49 Duoneb - NEB 1 amp QID PRN Administration WHEEZING Apixaban 5 mg 03/27/19 10:00 04/03/19 11:09 Eliquis - PO 5 mg BID ALEKSANDR Administration Budesonide 1 amp 03/27/19 08:00 04/03/19 07:45 Pulmicort 0.5 Mg Nebulizer - NEB 1 amp RBID ALEKSANDR Administration Carbamazepine 280 mg 03/27/19 00:15 04/03/19 11:11 Tegretol Oral Suspension - GT 280 mg BID ALEKSANDR Administration Piperacillin Sod/Tazobactam 50 mls @ 100 mls/hr 03/31/19 10:45 04/03/19 11:09 Sod 3.375 gm/ Dextrose IVPB 100 mls/hr Q8H-IV ALEKSANDR Administration Protocol Levetiracetam 1,500 mg 03/27/19 00:15 04/03/19 11:10 Keppra Oral Solution - GT 1,500 mg BID ALEKSANDR Administration Potassium Chloride 20 meq 04/01/19 22:00 04/03/19 11:09 Potassium Chloride Oral Liquid PO 04/03/19 21:59 20 meq BID ALEKSANDR Administration Tamsulosin HCl 0.4 mg 03/27/19 10:00 04/03/19 11:09 Flomax - NR 0.4 mg DAILY ALEKSANDR Administration Home Medications Medication Instructions Recorded Carbamazepine [Tegretol -] 280 mg GT BID 03/17/18 Cholecalciferol (Vitamin D3) 2,000 unit GT DAILY 03/17/18 [Vitamin D3] Omeprazole Magnesium [Prilosec] 20 mg GT DAILY 03/17/18 Tamsulosin HCl [Flomax -] 0.4 mg GT DAILY 03/17/18 clonazePAM [KlonoPIN -] 1 mg GT TID 03/17/18 Baclofen [Lioresal -] 10 mg PO DAILY@0600,1200 tablet 03/21/18 Budesonide [Pulmicort 0.5 mg 1 neb NEB BID 07/12/18 Nebulizer -] Diazepam [Diastat Acudial] 20 mg RC PRN PRN 07/12/18 Ipratropium/Albuterol Sulfate 3 ml IH QID PRN 07/12/18 [Iprat-Albut 0.5-3(2.5) mg/3 ml] Nystatin Ointment [Mycostatin 1 applic TP BID 07/12/18 Ointment -] Triamcinolone 0.1% Cream 1 applic TP BID 07/12/18 [Aristocort 0.1% Cream -] Scopolamine Hydrobromide 1 patch TD Q72H #10 patch.td72 07/18/18 [Transderm-Scop -] Mupirocin Ointment [Bactroban 2% 1 applic TP TID 08/11/18 Ointment -] levETIRAcetam [Keppra Oral 1,500 mg GT BID cup 10/06/18 Solution -] Baclofen 20 mg PO ASDIR 03/08/19 predniSONE [Deltasone -] See Taper PO ASDIR #20 tab 03/14/19 Apixaban [Eliquis] 5 mg PO BID 03/26/19 Aspirin 81 mg PEG 03/26/19 Microbiology 03/30/19 04:00 Sputum - Endotracheal Suction W/O Vent Gram Stain - Final 03/30/19 04:00 Sputum - Endotracheal Suction W/O Vent Sputum Culture - Preliminary Citrobacter Koseri 03/31/19 22:00 Blood - Peripheral Venous Blood Culture - Preliminary NO GROWTH OBTAINED AFTER 48 HOURS, INCUBATION TO CONTINUE FOR 3 DAYS. 03/31/19 22:00 Blood - Peripheral Venous Blood Culture - Preliminary NO GROWTH OBTAINED AFTER 48 HOURS, INCUBATION TO CONTINUE FOR 3 DAYS. 03/31/19 22:15 Urine - Urine - Catheterized Urine Culture - Final NO GROWTH OBTAINED 03/28/19 08:15 Blood - Peripheral Venous Blood Culture - Final NO GROWTH AFTER 5 DAYS INCUBATION 03/28/19 08:30 Blood - Peripheral Venous Blood Culture - Final NO GROWTH AFTER 5 DAYS INCUBATION 03/26/19 18:20 Blood - Peripheral Venous Blood Culture - Final Staph Capitis Subsp Capitis 03/26/19 18:20 Blood - Peripheral Venous Blood Culture - Final Staph Capitis Subsp Capitis 03/26/19 21:10 Urine - Urine - Catheterized Urine Culture - Final NO GROWTH OBTAINED ASSESSMENT AND PLAN: Patient is a 28 y/o man with h/o MR, cortical blindness, HTN, microcephaly, cerebral palsy, quadriplegia, seizure disorder, scoliosis, hyponatremia, and recent hospitalization for PNA and DVT , who presented from [place] due to fever and resp distress again. # EKG changes: seen and evaluated by and by as per cardio nothing to do, doubt is cardiac as per cardiology. # s/p Sepsis: due to RLL PNA. completed IV Zosyn will continue 7 chris days with Augmentin through the Peg tube. s/p vanco , continue Zosyn. will add scopalamine for his secretions. # Acute resp distress: improved at his baseline now #H/o Seizures: cont his home meds # Recent diagnosis of DVT: cont Eliquis # H/o HTN: normotensive now # Rhabdo: s/p IVF # Functional quadraplegia DVT Px: Eliquis will discharge patient back to rehab.
[2019-04-03] MEDS ORDERED: SCOPOLAMINE HYDROBROMIDE 1 PATCH PATCH.TD72 TD SCH (13:15)
--- NOTE | 2019-04-03 16:11 | DS ---
Physical Exam: SUBJECTIVE: Patient seen and examined by the bedside, AOx0. OBJECTIVE: Vital Signs Period Temp Pulse Resp BP Sys/Don Pulse Ox Last 24 Hr 97.6 F-98.8 F 75-112 17-18 97-145/61-91 99-100 PHYSICAL EXAM GENERAL: The patient is awake, alert, and fully oriented, in no acute distress. HEAD: Normal with no signs of trauma. EYES: PERRL, extraocular movements intact, sclera anicteric, conjunctiva clear. ENT: Ears normal, nares patent, oropharynx clear without exudates, moist mucous membranes. NECK: Trachea midline, full range of motion, supple. LUNGS: Breath sounds equal, clear to auscultation bilaterally, no wheezes, no crackles, no accessory muscle use. HEART: Regular rate and rhythm, S1, S2 without murmur, rub or gallop. ABDOMEN: Soft, nontender, nondistended, normoactive bowel sounds, no guarding, no rebound, no hepatosplenomegaly, no masses. EXTREMITIES: 2+ pulses, warm, well-perfused, no edema. NEUROLOGICAL: Cranial nerves II through XII grossly intact. Normal speech, gait not observed. PSYCH: Normal mood, normal affect. SKIN: Warm, dry, normal turgor, no rashes or lesions noted. LABS Laboratory Results - last 24 hr 04/03/19 04/03/19 06:45 06:45 WBC 7.9 RBC 3.87 L Hgb 11.1 L Hct 33.5 L MCV 86.4 MCH 28.6 MCHC 33.1 RDW 16.8 H Plt Count 228 MPV 7.8 Sodium 143 Potassium 3.7 Chloride 107 Carbon Dioxide 29 Anion Gap 7 L BUN 15.8 Creatinine 1.1 Est GFR (CKD-EPI)AfAm 106.06 Est GFR (CKD-EPI)NonAf 91.51 Random Glucose 110 H Calcium 8.3 L Total Bilirubin 0.3 AST 14 L ALT 23 Alkaline Phosphatase 72 Total Protein 7.0 Albumin 2.7 L HOSPITAL COURSE: Date of Admission:03/26/19 28 yo male with PMH of CP, seizures, and scoliosis,was brought to the ER from [place] after he was noticed to have a fever with labored breathing and a BP of 163/98. Pt was previously admitted for aspiration pneumonia and R popliteal DVT, was DCed 03/15 on Augmentin, Prednisone taper, and Eliquis. Date of Discharge: 04/03/19 CT chest showed R lower lobe infiltrates, suggestive of aspiration pneumonia. Patient was given for Zosyn 8 days. First blood cx showed Staph Capitis, repeat showed no growth. Endotrach sputum cx showed Citrobacter Koseri CK was initially elevated, likely rhabdo due to seizures, but was trending down after admission (1270, 916, 882, 620). EKG showed possible lateral infarct (age undetermined), compared to EKG on 03/11 vent rate has increased. Cardio was consulted, suggested that T wave changes were probably due to seizures, ischemia unlikely, no firther intervention recommended. Previous echo on 03/13 showed EF 65-70. Patient was discharged on home meds as well as Augmentin 600mg Q12 and Scopolamine patch Q72h. Minutes to complete discharge: 39 Discharge Summary Reason For Visit: CEREBAL PALSY/SEIZURE/FUNCTIONAL QUADRIPLEGIA/ Current Active Problems Cerebral palsy (Chronic) Functional quadriplegia (Chronic) Seizure (Chronic) Condition: Stable - Instructions Diet, Activity, Other Instructions: You were admitted to the hospital because you had an infection (sepsis). We performed scans of your lungs (CT and X Ray), which showed an infection in your lungs, which we treated with intravenous antibiotics. You will continue taking Augmentin per peg tube for 7 more days, keep the head of the bed to 45 degrees elevated. Additionally, you were seen by the photocopy operator due to changes seen in your EKG. Upon cardiac evaluation, these abnormalities were likely due to seizure activity and unlikely caused by an acute cardiac condition. While you were admitted, we gave you IV antibiotics and fluids. Medications: - Please resume ALL of your home meds. - Please continue taking Augmentin syrup by G tube 10 mL daily for 7 days. - Please use a Scopolamine patch behind your ear once every 3 days. - Please take Liquid Tylenol 650 mg every 6 hours as needed. - Please continue taking Oxygen at 2L Follow up: Please make the following appointments within one week: - With your PCP, Dr. Mayorga. - With our Infectious Disease specialist, Dr. Vasiliy Her Additional Information: Please return to the Emergency Department if you have any of the following: Loss of consciousness, nausea, dizziness, vomiting, shortness of breath, diarrhea, bleeding that will not stop, or persistent headache. Referrals: Vasiliy Hre MD [Staff Physician] - 1 Week Bernardo Mayorga Jr [Non Staff, Medical] - Disposition: HOME - Home Medications Comprehensive Discharge Medication List: Ambulatory Orders Carbamazepine [Tegretol -] 280 mg GT BID 03/17/18 Cholecalciferol (Vitamin D3) [Vitamin D3] 2,000 unit GT DAILY 03/17/18 Omeprazole Magnesium [Prilosec] 20 mg GT DAILY 03/17/18 Tamsulosin HCl [Flomax -] 0.4 mg GT DAILY 03/17/18 clonazePAM [KlonoPIN -] 1 mg GT TID 03/17/18 Baclofen [Lioresal -] 10 mg PO DAILY@0600,1200 tablet 03/21/18 Budesonide [Pulmicort 0.5 mg Nebulizer -] 1 neb NEB BID 07/12/18 Diazepam [Diastat Acudial] 20 mg RC PRN PRN 07/12/18 Ipratropium/Albuterol Sulfate [Iprat-Albut 0.5-3(2.5) mg/3 ml] 3 ml IH QID PRN 07/12/18 Nystatin Ointment [Mycostatin Ointment -] 1 applic TP BID 07/12/18 Triamcinolone 0.1% Cream [Aristocort 0.1% Cream -] 1 applic TP BID 07/12/18 Scopolamine Hydrobromide [Transderm-Scop -] 1 patch TD Q72H #10 patch.td72 07/18 Mupirocin Ointment [Bactroban 2% Ointment -] 1 applic TP TID 08/11/18 levETIRAcetam [Keppra Oral Solution -] 1,500 mg GT BID cup 10/06/18 Baclofen 20 mg PO ASDIR 03/08/19 predniSONE [Deltasone -] See Taper PO ASDIR #20 tab 03/14/19 Apixaban [Eliquis] 5 mg PO BID 03/26/19 Acetaminophen Oral Solution [Tylenol Oral Solution -] 650 mg PO Q6H PRN soln.oral 04/03/19 Amoxicillin/Potassium Clav [Augmentin ES Suspension] 10 ml GT DAILY #70 ml 04/03 This patient is new to me today: No Emergency Visit: Yes ED Registration Date: 03/26/19 Care time: The patient presented to the Emergency Department on the above date and was hospitalized for further evaluation of their emergent condition. Critical Care patient: No - Discharge Referral Referred to [facility] No ATTENDING PHYSICIAN STATEMENT I saw and evaluated the patient. I reviewed the resident's note and discussed the case with the resident. I agree with the resident's findings and plan as documented. SUBJECTIVE: OBJECTIVE: ASSESSMENT AND PLAN:
[2019-04-03 16:35] VITALS: BP 93/53; PULSE 90; TEMP 99.4
== END 2019-04-03 18:19 | disposition home or self-care (01) | DRG 720 ==
LOC: JER 18:28 → JERBED 21:39 → J4S 03-27 00:07
PROVIDERS: ADMIT Internal Medicine; ATTEND Internal Medicine
DX: A41.89 Other specified sepsis (principal); I10 Essential (primary) hypertension; G80.9 Cerebral palsy, unspecified; D72.829 Elevated white blood cell count, unspecified; Q02 Microcephaly; G40.909 Epilepsy, unspecified, not intractable, without status epilepticus; M62.82 Rhabdomyolysis; H47.619 Cortical blindness, unspecified side of brain; J69.0 Pneumonitis due to inhalation of food and vomit; E87.2 Acidosis; R53.2 Functional quadriplegia; R00.0 Tachycardia, unspecified; R63.4 Abnormal weight loss; Z68.1 Body mass index [BMI] 19.9 or less, adult; F73 Profound intellectual disabilities
CPT/HCPCS: 36415; 36600; 71045-TC-FY; 71250-TC; 74176-TC; 80053; 80156; 80177; 81003; 82550; 82553; 82803; 82977; 83605; 83735; 84484; 85025; 85027; 85610; 87040; 87070; 87086; 87186; 87205; 93005; 93010; 94640; 95816; 99283-25; J0131; J7030

== ENCOUNTER 2019-05-14 08:32 | Inpatient (IN) | payer OTHER ==
[2019-05-14] MEDS ORDERED: ACETAMINOPHEN 1000 MG/100 ML VIAL (NON FORMULARY) IVPB ONE (09:28)
[2019-05-14] MEDS ORDERED: ACETAMINOPHEN INJECTION 100 ML IVPB ONE (09:35)
[2019-05-14 09:47] LABS: BASO % 0.7 % (0-2.0); EOS % 0.5 % (0-4.5); HEMATOCRIT 44.1 % (35.4-49); LYMPH % 23.2 % (8-40); MEAN CELL VOLUME 85.1 fl (80-96); MEAN PLT VOLUME 7.2 fl (7.5-11.1); MONO % 7.8 % (3.8-10.2); NEUT % 67.8 % (42.8-82.8); PLATELET COUNT 402 K/MM3 (134-434); RBC 5.18 M/mm3 (4.00-5.60); RDW 15.2 % (11.9-15.9); WHITE BLOOD COUNT 8.2 K/mm3 (4.0-10.0)
[2019-05-14 09:49] LABS: PH,URINE >= 9.0 (5.0-8.0); URINE APPEARANCE CLEAR; URINE BILIRUBIN NEGATIVE (NEGATIVE); URINE COLOR YELLOW; URINE GLUCOSE (UA) NEGATIVE (NEGATIVE); URINE KETONE NEGATIVE (NEGATIVE); URINE LEUK ESTERASE NEGATIVE (NEGATIVE); URINE NITRITE NEGATIVE (NEGATIVE); URINE PROTEIN NEGATIVE (NEGATIVE); URINE UROBILINOGEN 0.2 mg/dL (0.2-1.0)
[2019-05-14 09:55] LABS: VENOUS PH 7.43 (7.31-7.41)
[2019-05-14 09:58] LABS: ARTERIAL BLD GAS O2 SATURATION 94.6 % (95-98); ARTERIAL BLOOD GAS BASE EXCESS 0.3 meq/l (-2-2); ARTERIAL BLOOD GAS PCO2 35.3 mmHg (35-45); ARTERIAL BLOOD GAS PO2 79.4 mmHg (80-100); ARTERIAL BLOOD GAS pH 7.44 (7.35-7.45); CARBOXYHEMOGLOBIN 0.9 % (0-2)
[2019-05-14] MEDS ORDERED: methylPREDNISolone NA SUCC 125 MG/2 ML VIAL IVPB ONE (10:04)
[2019-05-14] MEDS ORDERED: VANCOMYCIN 1,000 MG in DEXTROSE 5%-WATER - 250 ML IVPB ONE (10:05)
[2019-05-14] MEDS ORDERED: MAGNESIUM SULF 50% (8.12 MEQ/2 ML-1 GM VIAL) IVPB ONE (10:05)
[2019-05-14] MEDS ORDERED: PIPERACILLIN/TAZOB 4.5 GM 4.5 GM in DEXTROSE 5%-WATER - 100 ML IVPB ONE (10:06)
[2019-05-14 10:07] LABS: INR 1.23 (0.83-1.09); PROTHROMBIN TIME (PATIENT) 14.5 SEC (9.7-13.0)
[2019-05-14 10:09] LABS: ACTIVATED PTT 40.3 SECONDS (25.2-36.5)
[2019-05-14 10:12] LABS: ALBUMIN 3.9 g/dl (3.4-5.0); BILIRUBIN,TOTAL 0.2 mg/dL (0.2-1); CALCIUM 9.5 mg/dL (8.5-10.1); CREATININE 0.6 mg/dL (0.55-1.3); POTASSIUM 4.1 mmol/L (3.5-5.1); TOT PROT 8.9 g/dl (6.4-8.2)
[2019-05-14] MEDS ORDERED: ALBUTEROL SO4 2.5/IPRATROPIUM 0.5 INH SOL 3 ML VIAL.NEB. NEB ONE ×3 (10:18→10:55)
[2019-05-14] MEDS ORDERED: MAGNESIUM SULF 50% (8.12 MEQ/2 ML-1 GM VIAL) ONE (10:18)
[2019-05-14] MEDS ORDERED: VANCOMYCIN 1 GRAM (PRE-DOCKED) 1,000 MG/250 ML BAG IVPB ONE (10:19)
[2019-05-14] MEDS ORDERED: methylPREDNISolone NA SUCC 125 MG/2 ML VIAL ONE (10:19)
[2019-05-14] MEDS ORDERED: PIPERACILLIN/TAZOB 4.5 GM 4.5 GM/100 ML BAG IVPB ONE (10:19)
[2019-05-14] MEDS: ALBUTEROL SO4 2.5/IPRATROPIUM 0.5 INH SOL 3 ML VIAL.NEB. NEB SCH ×6 (10:27→19:51)
--- NOTE | 2019-05-14 10:46 | PDOC ---
History of Present Illness - General Chief Complaint: SIRS, Suspected/Possible Stated Complaint: SHORTNESS OF BREATH Time Seen by Provider: 05/14/19 08:54 - History of Present Illness Initial Comments: 05/14/19 11:36 28yo M with a PMH of profound intellectual disability, CP w/ spastic quadriparesis, microcephaly, intractable seizures, cortical blindness, asthma, scoliosis s/p repair (07/2006), dysphagia, hyponatremia, s/p G-tube who presents from [facility] with fever, diaphoresis tachypnea, tachycardia, and abnormal respiration. Similar presentation than last visit, Past History - Past Medical History Allergies/Adverse Reactions: Allergies Allergy/AdvReac Type Severity Reaction Status Date / Time Beef Containing Products Allergy Unknown Verified 05/14/19 09:02 erythromycin base Allergy Verified 05/14/19 09:02 phenobarbital Allergy Verified 05/14/19 09:02 venom-honey bee Allergy Verified 05/14/19 09:02 [bee venom (honey bee)] Home Medications: Ambulatory Orders Carbamazepine [Tegretol -] 280 mg GT BID 03/17/18 Cholecalciferol (Vitamin D3) [Vitamin D3] 2,000 unit GT DAILY 03/17/18 Omeprazole Magnesium [Prilosec] 20 mg GT DAILY 03/17/18 clonazePAM [KlonoPIN -] 1 mg GT TID 03/17/18 Baclofen [Lioresal -] 10 mg PO DAILY@0600,1200 tablet 03/21/18 Budesonide [Pulmicort 0.5 mg Nebulizer -] 1 neb NEB BID 07/12/18 Diazepam [Diastat Acudial] 20 mg RC PRN PRN 07/12/18 Ipratropium/Albuterol Sulfate [Iprat-Albut 0.5-3(2.5) mg/3 ml] 3 ml IH QID PRN 07/12/18 levETIRAcetam [Keppra Oral Solution -] 1,500 mg GT BID cup 10/06/18 Baclofen 20 mg PO ASDIR 03/08/19 Acetaminophen Oral Solution [Tylenol Oral Solution -] 480 mg PO Q6H 05/14/19 Apixaban [Eliquis] 5 mg PO BID 05/14/19 Asthma: Yes Cancer: No Cardiac Disorders: No COPD: Yes (asthma, aspiration pnuemonia and respiratory distress) CHF: No Dementia: Yes (mental retardation) Diabetes: No GI Disorders: Yes (dysphagia, s/p peg insertion) Disorders: Yes (left testicular torsion, scrotal pain) HTN: No Hypercholesterolemia: No Psychiatric Problems: (hyponatremia (due to meds)) Seizures: Yes - Surgical History Orthopedic Surgery: (Left Hip Osteotomy) - Immunization History Td Vaccination: Yes TDAP Vaccination: Yes Immunization Up to Date: Yes - Suicide/Smoking/Psychosocial Hx Smoking History: Never smoked Have you smoked in the past 12 months: No Number of Cigarettes Smoked Daily: 0 Cigars Per Day: 0 Information on smoking cessation initiated: No Hx Alcohol Use: No Drug/Substance Use Hx: No Substance Use Type: None Hx Substance Use Treatment: No Review of Systems - Review of Systems Able to Perform ROS?: No (non-verbal) *Physical Exam - Vital Signs Last Vital Signs Temp Pulse Resp BP Pulse Ox 101.1 F H 111 H 20 115/88 90 L 05/14/19 09:05 05/14/19 09:05 05/14/19 09:05 05/14/19 09:05 05/14/19 09:05 - Physical Exam General Appearance: Yes: Mild Distress, Cachetic HEENT: positive: Other (cortical blindness. ) Respiratory/Chest: positive: Respiratory Distress, Labored Respiration, Crackles , Rhonchi, Wheezing. negative: Chest Tender, Lungs Clear Cardiovascular: positive: S1, S2, Tachycardia. negative: Regular Rate Gastrointestinal/Abdominal: positive: Normal Bowel Sounds, Flat, Soft. negative : Tender Musculoskeletal: positive: Other (contracted all 4 limbs.) Extremity: positive: Normal Capillary Refill, Normal Inspection Integumentary: positive: Normal Color, Dry, Warm Neurologic: positive: Respond to painful stimul ED Treatment Course - LABORATORY CBC & Chemistry Diagram: 05/15/19 05:30 05/15/19 05:30 - ADDITIONAL ORDERS Additional order review: Laboratory Results 05/14/19 05/14/19 05/14/19 09:50 09:40 09:15 PT with INR INR PTT (Actin FS) Anticoagulation Therapy No Result Required. Puncture Site No Result Required. ABG pH 7.44 ABG pCO2 at Pt Temp 35.3 ABG pO2 at Pt Temp 79.4 L ABG HCO3 23.5 ABG O2 Sat (Measured) 94.6 L ABG O2 Content 19.2 ABG Base Excess 0.3 Richy Test No Result Required. VBG pH 7.43 H POC VBG pCO2 39.0 POC VBG pO2 53.0 H VBG HCO3 25.1 VBG O2 Sat (Rafa) 83.9 H VBG Base Excess 1.3 Carboxyhemoglobin 0.9 Methemoglobin < 1.0 O2 Delivery Device No Result Required. Oxygen Flow Rate 50 Vent Mode No Result Required. Vent Rate No Result Required. Mechanical Rate No Result Required. Pressure Support Vent No Result Required. Sodium Potassium Chloride Carbon Dioxide Anion Gap BUN Creatinine Est GFR (CKD-EPI)AfAm Est GFR (CKD-EPI)NonAf Random Glucose Lactic Acid Calcium Total Bilirubin AST ALT Alkaline Phosphatase Total Protein Albumin Urine Color Yellow Urine Appearance Clear Urine pH >= 9.0 H D Ur Specific [place] 1.009 L Urine Protein Negative Urine Glucose (UA) Negative Urine Ketones Negative Urine Blood Negative Urine Nitrite Negative Urine Bilirubin Negative Urine Urobilinogen 0.2 Ur Leukocyte Esterase Negative 05/14/19 05/14/19 05/14/19 09:15 09:15 09:02 PT with INR 14.50 H INR 1.23 H PTT (Actin FS) 40.3 H Anticoagulation Therapy Puncture Site ABG pH ABG pCO2 at Pt Temp ABG pO2 at Pt Temp ABG HCO3 ABG O2 Sat (Measured) ABG O2 Content ABG Base Excess Richy Test VBG pH POC VBG pCO2 POC VBG pO2 VBG HCO3 VBG O2 Sat (Rafa) VBG Base Excess Carboxyhemoglobin Methemoglobin O2 Delivery Device Oxygen Flow Rate Vent Mode Vent Rate Mechanical Rate Pressure Support Vent Sodium 134 L Potassium 4.1 Chloride 100 Carbon Dioxide 27 Anion Gap 8 BUN 9.0 Creatinine 0.6 Est GFR (CKD-EPI)AfAm 159.70 Est GFR (CKD-EPI)NonAf 137.79 Random Glucose 86 Lactic Acid 1.5 Calcium 9.5 Total Bilirubin 0.2 AST 18 ALT 35 Alkaline Phosphatase 140 H Total Protein 8.9 H Albumin 3.9 Urine Color Urine Appearance Urine pH Ur Specific [place] Urine Protein Urine Glucose (UA) Urine Ketones Urine Blood Urine Nitrite Urine Bilirubin Urine Urobilinogen Ur Leukocyte Esterase 05/14/19 09:15 RBC 5.18 MCV 85.1 MCHC 34.0 RDW 15.2 MPV 7.2 L Neutrophils % 67.8 Lymphocytes % 23.2 D Monocytes % 7.8 Eosinophils % 0.5 Basophils % 0.7 - RADIOLOGY Radiology Studies Ordered: Category Date Time Status CHEST X-RAY PORTABLE* [RAD] Stat Radiology 05/14/19 08:54 Completed - Medications Given in the ED: ED Medications Discontinued Medications Generic Name Dose Route Start Last Admin Trade Name Mercedez PRN Reason Stop Dose Admin Acetaminophen 1,000 mg 05/14/19 09:28 05/14/19 09:49 Ofirmev Injection - IVPB 05/14/19 09:29 1,000 mg ONCE ONE Administration Magnesium Sulfate 2 gm 05/14/19 10:05 05/14/19 10:25 Magnesium Sulfate IVPB 05/14/19 10:06 2 gm ONCE ONE Administration Methylprednisolone Sodium Succinate 125 mg 05/14/19 10:04 05/14/19 10:20 Solu-Medrol - IVPB 05/14/19 10:05 125 mg ONCE ONE Administration Medical Decision Making - Medical Decision Making 05/14/19 12:28 28yo M with a PMH of profound intellectual disability, CP w/ spastic quadriparesis, microcephaly, intractable seizures, cortical blindness, asthma, scoliosis s/p repair (07/2006), dysphagia, hyponatremia, s/p G-tube who presents from [facility] with fever, diaphoresis tachypnea, tachycardia, and abnormal respiration. Septic order set. Patient still hypoxic at 88% on nasal cannula, placed on ventimask, duonebs and steroids. Vitals now stabilized. Xray unremarkable, looking better that last time but will empirically treat with abx due to respiratory distress and fever. Negative troponins, EKG abnormal with T wave inversions and deep Q waves but unchanged from previous one. Patient admitted to Med/surg for asthma exacerbation/respiratory distress. *DC/Admit/Observation/Transfer Diagnosis at time of Disposition: Functional quadriplegia, Pneumonia, Respiratory distress - Referrals - Patient Instructions - Post Discharge Activity
--- NOTE | 2019-05-14 10:51 | PDOC ---
Documentation entered by Venkatesh Bernal SCRIBE, acting as scribe for Jose Zamora MD. Jose Zamora MD: This documentation has been prepared by the Gabe sharma Daniel, SCRIBE, under my direction and personally reviewed by me in its entirety. I confirm that the documentation accurately reflects all work, treatment, procedures, and medical decision making performed by me. Attending Attestation - Resident Resident Name: John Hoyt - ED Attending Attestation I have performed the following: I have examined & evaluated the patient, The case was reviewed & discussed with the resident, I agree w/resident's findings & plan, Exceptions are as noted - HPI HPI: 05/14/19 10:09 The patient is a 28 year old male with a past medical history of mitral regurgitation, epilepsy, microcephaly, cortical blindness, asthma (recent admission this year with intubation), scoliosis, dysphagia, and spastic quadripalegia brought in today by EMS from [place] for evaluation of fever and hypoxia. Patient is non verbal so history provided by aide at bedside. As per the aide, the patient was audibly wheezing last night and was diaphoretic this morning. Allergies: beef containing products, erythromycin base, phenobarbital, honey bee venom - Physicial Exam PE: 05/14/19 10:10 GENERAL: Awake, alert, in no acute distress. Turns and smiles to examiner when at bedside. HEAD: No signs of trauma EYES: Sclera anicteric, conjunctiva clear NECK: Supple, no lymphadenopathy, JVD, or masses LUNGS: Diffuse wheezing with fair air movement. Mild subcostal WOB. No crackles HEART: Tachy but regular to 110, no murmurs, rubs or gallops ABDOMEN: Soft, nontender, normoactive bowel sounds. No guarding, no rebound. No masses EXTREMITIES: contracted x4, WWP distally NEUROLOGICAL: Non verbal, eyes with roving movements, SKIN: Warm, Dry, normal turgor, no rashes or lesions noted. - Medical Decision Making 05/14/19 10:35 28yo M with MMP including ashtma presents to the ED with wheezing, fever, diaphoresis Vitals with tachycardia, hypoxia, fever Exam with wheezing, mild WOB ABG on facemask unremarkable Likely asthma +/- PNA Pt ordered for nebs, steroids, Mg, antibiotics Anticipate admission Heart Score/ECG Review #1 05/14/19 10:33 EKG read and int by me: NSR, rate 78. RAD. Q waves inferiorly, TWI V2-V5. When compared to EKG from 03/31, no significant changes.
--- NOTE | 2019-05-14 13:22 | HP ---
CHIEF COMPLAINT: sent from [facility] with fever, hypoxia, wheezing, diaphoresis PCP: Dr. Mayorga at [facility] HISTORY OF PRESENT ILLNESS: 28 yom with PMHx of cerebral palsy with spastic quadriparesis, cortical blindness, HTN, microcephaly, seizure disorder, scoliosis, hyponatremia, dysphagia on PEG feeds, Popliteal DVT 02/2019 on eliquis, recurrent admissions with aspiration Pneumonia sent from [facility] with fevers, hypoxia 89%, wheezing and diaphoresis. ER course was notable for: fevers, 101.1, Oxygen 89% RA and 90% 3 L Zosyn 4.5 g/Vancomycin 1 g/Solumedrol 125 mg/Magnesium 2 gm IV/Tylenol 1g IV Recent Travel: None PAST MEDICAL HISTORY: cerebral palsy with spastic quadriparesis, cortical blindness, HTN, microcephaly, seizure disorder, scoliosis, hyponatremia, dysphagia, Popliteal DVT 02/2019 on eliquis, recurrent admissions with aspiration Pneumonia PAST SURGICAL HISTORY: Kong rods for scoliosis, Gastrostomy Social History: Smoking: none Alcohol: none Drugs: none [facility] facility, dependent in ADLs Family History: not available Allergies Beef Containing Products Allergy (Unknown, Verified 05/14/19 09:02) erythromycin base Allergy (Verified 05/14/19 09:02) phenobarbital Allergy (Verified 05/14/19 09:02) venom-honey bee [bee venom (honey bee)] Allergy (Verified 05/14/19 09:02) HOME MEDICATIONS: Home Medications Medication Instructions Recorded Carbamazepine [Tegretol -] 280 mg GT BID 03/17/18 Cholecalciferol (Vitamin D3) 2,000 unit GT DAILY 03/17/18 [Vitamin D3] Omeprazole Magnesium [Prilosec] 20 mg GT DAILY 03/17/18 clonazePAM [KlonoPIN -] 1 mg GT TID 03/17/18 Baclofen [Lioresal -] 10 mg PO DAILY@0600,1200 tablet 03/21/18 Budesonide [Pulmicort 0.5 mg 1 neb NEB BID 07/12/18 Nebulizer -] Diazepam [Diastat Acudial] 20 mg RC PRN PRN 07/12/18 Ipratropium/Albuterol Sulfate 3 ml IH QID PRN 07/12/18 [Iprat-Albut 0.5-3(2.5) mg/3 ml] levETIRAcetam [Keppra Oral 1,500 mg GT BID cup 10/06/18 Solution -] Baclofen 20 mg PO ASDIR 03/08/19 Acetaminophen Oral Solution 480 mg PO Q6H 05/14/19 [Tylenol Oral Solution -] Apixaban [Eliquis] 5 mg PO BID 05/14/19 REVIEW OF SYSTEMS CONSTITUTIONAL: Absent: fever, chills, diaphoresis, generalized weakness, malaise, loss of appetite, weight change HEENT: Absent: rhinorrhea, nasal congestion, throat pain, throat swelling, difficulty swallowing, mouth swelling, ear pain, eye pain, visual changes CARDIOVASCULAR: Absent: chest pain, syncope, palpitations, irregular heart rate, lightheadedness , peripheral edema RESPIRATORY: Absent: cough, shortness of breath, dyspnea with exertion, orthopnea, wheezing, stridor, hemoptysis GASTROINTESTINAL: Absent: abdominal pain, abdominal distension, nausea, vomiting, diarrhea, constipation, melena, hematochezia GENITOURINARY: Absent: dysuria, frequency, urgency, hesitancy, hematuria, flank pain, genital pain MUSCULOSKELETAL: Absent: myalgia, arthralgia, joint swelling, back pain, neck pain SKIN: Absent: rash, itching, pallor HEMATOLOGIC/IMMUNOLOGIC: Absent: easy bleeding, easy bruising, lymphadenopathy, frequent infections ENDOCRINE: Absent: unexplained weight gain, unexplained weight loss, heat intolerance, cold intolerance NEUROLOGIC: Absent: headache, focal weakness or paresthesias, dizziness, unsteady gait, seizure, mental status changes, bladder or bowel incontinence PSYCHIATRIC: Absent: anxiety, depression, suicidal or homicidal ideation, hallucinations. PHYSICAL EXAMINATION Vital Signs - 24 hr 05/14/19 05/14/19 05/14/19 08:43 09:05 09:15 Temperature 101.1 F H 101.1 F H Pulse Rate 111 H 111 H Pulse Rate [ 111 H Right Radial] Respiratory 20 20 Rate Blood Pressure 114/88 Blood Pressure 115/88 [Right Arm] O2 Sat by Pulse 89 L 90 L 92 L Oximetry (%) 05/14/19 05/14/19 09:45 11:57 Temperature 97.7 F Pulse Rate Pulse Rate [ 80 Right Radial] Respiratory 18 Rate Blood Pressure Blood Pressure 102/61 [Right Arm] O2 Sat by Pulse 100 100 Oximetry (%) GENERAL: Awake, mild tachypnea, non verbal HEAD: Normal with no signs of trauma. EYES: Pupils equal, round and reactive to light, extraocular movements intact, sclera anicteric, conjunctiva clear. No lid lag. Facial erythema EARS, NOSE, THROAT: Ears normal, nares patent, oropharynx clear without exudates. Moist mucous membranes. NECK: limited ROM given habitus LUNGS: occasional scattered wheeze, rales, good air entry bilaterally HEART: Regular rate and rhythm, normal S1 and S2 ABDOMEN: Soft, midly distended, PEG in place, no voluntary or involuntary guarding or rigidity MUSCULOSKELETAL:contracted extremities UPPER EXTREMITIES: contractures, no edema, pos pulses LOWER EXTREMITIES: contractures, no edema, pos pulses NEUROLOGICAL: Awake, respond to voice, PERRL, facial symmetry, contractures, non verbal further exam limitedCranial nerves II-XII intact. PSYCHIATRIC: responds to voice SKIN: Warm, dry, normal turgor, no rashes or lesions noted, normal capillary refill. Laboratory Results - last 24 hr 05/14/19 05/14/19 05/14/19 09:02 09:10 09:15 WBC RBC Hgb Hct MCV MCH MCHC RDW Plt Count MPV Absolute Neuts (auto) Neutrophils % Lymphocytes % Monocytes % Eosinophils % Basophils % Nucleated RBC % PT with INR 14.50 H INR 1.23 H PTT (Actin FS) 40.3 H Anticoagulation Therapy Puncture Site ABG pH ABG pCO2 at Pt Temp ABG pO2 at Pt Temp ABG HCO3 ABG O2 Sat (Measured) ABG O2 Content ABG Base Excess Richy Test VBG pH POC VBG pCO2 POC VBG pO2 VBG HCO3 VBG O2 Sat (Rafa) VBG Base Excess Carboxyhemoglobin Methemoglobin O2 Delivery Device Oxygen Flow Rate Vent Mode Vent Rate Mechanical Rate Pressure Support Vent Sodium Potassium Chloride Carbon Dioxide Anion Gap BUN Creatinine Est GFR (CKD-EPI)AfAm Est GFR (CKD-EPI)NonAf Random Glucose Lactic Acid 1.5 Calcium Total Bilirubin AST ALT Alkaline Phosphatase Troponin I < 0.02 Total Protein Albumin Urine Color Urine Appearance Urine pH Ur Specific [place] Urine Protein Urine Glucose (UA) Urine Ketones Urine Blood Urine Nitrite Urine Bilirubin Urine Urobilinogen Ur Leukocyte Esterase 05/14/19 05/14/19 05/14/19 09:15 09:15 09:15 WBC 8.2 RBC 5.18 Hgb 15.0 Hct 44.1 D MCV 85.1 MCH 29.0 MCHC 34.0 RDW 15.2 Plt Count 402 D MPV 7.2 L Absolute Neuts (auto) 5.5 Neutrophils % 67.8 Lymphocytes % 23.2 D Monocytes % 7.8 Eosinophils % 0.5 Basophils % 0.7 Nucleated RBC % 0 PT with INR INR PTT (Actin FS) Anticoagulation Therapy Puncture Site ABG pH ABG pCO2 at Pt Temp ABG pO2 at Pt Temp ABG HCO3 ABG O2 Sat (Measured) ABG O2 Content ABG Base Excess Richy Test VBG pH 7.43 H POC VBG pCO2 39.0 POC VBG pO2 53.0 H VBG HCO3 25.1 VBG O2 Sat (Rafa) 83.9 H VBG Base Excess 1.3 Carboxyhemoglobin Methemoglobin O2 Delivery Device Oxygen Flow Rate Vent Mode Vent Rate Mechanical Rate Pressure Support Vent Sodium 134 L Potassium 4.1 Chloride 100 Carbon Dioxide 27 Anion Gap 8 BUN 9.0 Creatinine 0.6 Est GFR (CKD-EPI)AfAm 159.70 Est GFR (CKD-EPI)NonAf 137.79 Random Glucose 86 Lactic Acid Calcium 9.5 Total Bilirubin 0.2 AST 18 ALT 35 Alkaline Phosphatase 140 H Troponin I Total Protein 8.9 H Albumin 3.9 Urine Color Urine Appearance Urine pH Ur Specific [place] Urine Protein Urine Glucose (UA) Urine Ketones Urine Blood Urine Nitrite Urine Bilirubin Urine Urobilinogen Ur Leukocyte Esterase 05/14/19 05/14/19 09:40 09:50 WBC RBC Hgb Hct MCV MCH MCHC RDW Plt Count MPV Absolute Neuts (auto) Neutrophils % Lymphocytes % Monocytes % Eosinophils % Basophils % Nucleated RBC % PT with INR INR PTT (Actin FS) Anticoagulation Therapy No Result Required. Puncture Site No Result Required. ABG pH 7.44 ABG pCO2 at Pt Temp 35.3 ABG pO2 at Pt Temp 79.4 L ABG HCO3 23.5 ABG O2 Sat (Measured) 94.6 L ABG O2 Content 19.2 ABG Base Excess 0.3 Richy Test No Result Required. VBG pH POC VBG pCO2 POC VBG pO2 VBG HCO3 VBG O2 Sat (Rafa) VBG Base Excess Carboxyhemoglobin 0.9 Methemoglobin < 1.0 O2 Delivery Device No Result Required. Oxygen Flow Rate 50 Vent Mode No Result Required. Vent Rate No Result Required. Mechanical Rate No Result Required. Pressure Support Vent No Result Required. Sodium Potassium Chloride Carbon Dioxide Anion Gap BUN Creatinine Est GFR (CKD-EPI)AfAm Est GFR (CKD-EPI)NonAf Random Glucose Lactic Acid Calcium Total Bilirubin AST ALT Alkaline Phosphatase Troponin I Total Protein Albumin Urine Color Yellow Urine Appearance Clear Urine pH >= 9.0 H D Ur Specific [place] 1.009 L Urine Protein Negative Urine Glucose (UA) Negative Urine Ketones Negative Urine Blood Negative Urine Nitrite Negative Urine Bilirubin Negative Urine Urobilinogen 0.2 Ur Leukocyte Esterase Negative CXR results and images reviewed elevated right hemidiaphragm, improved prior RUL atelectasis and fluid in fissure EKG: NDR, T inversions in V1-V3, Q in II/III/aVF, LVH (unchanged from prior EKG) 2D echo 03/13/2019: EF 65-70% ASSESSMENT/PLAN: 28 yom with PMHx of cerebral palsy with spastic quadriparesis, cortical blindness, HTN, microcephaly, seizure disorder, scoliosis, hyponatremia, dysphagia on PEG feeds, Popliteal DVT 02/2019 on eliquis, recurrent admissions with aspiration Pneumonia admitted with fevers, hypoxia, wheezing and diaphoresis -Sepsis -Suspected aspiration Pneumonia -HTN -Abnormal EKG -Cerebral palsy with spastic quadriparesis -Cortical blindness -HTN -Microcephaly -Seizure disorder -Scoliosis -Dysphagia on PEG feeds -Popliteal DVT 02/2019 - Plan: Zosyn, ID input noted. Blood cultures. Sputum cultures if available IV solumedrol, standing and prn nebs, chest PT Hold tube feeds. gentle hydration for now. Continue eliquis, anti-epileptics. DVTPPX as above Dispo pending clinical improvement. Admit to med-surg. Discussed with aide at bedside, all questions answered Care co-ordinated with ED Total admit time 65 min . Visit type - Emergency Visit Emergency Visit: Yes ED Registration Date: 05/14/19 Care time: The patient presented to the Emergency Department on the above date and was hospitalized for further evaluation of their emergent condition. - New Patient This patient is new to me today: Yes Date on this admission: 05/14/19 - Critical Care Critical Care patient: No
[2019-05-14] MEDS ORDERED: ACETAMINOPHEN 1000 MG/100 ML VIAL (NON FORMULARY) IVPB PRN (13:25)
[2019-05-14] MEDS ORDERED: ALBUTEROL SO4 0.083% IH SOL 2.5 MG/3 ML VIAL.NEB. NEB PRN (13:25)
[2019-05-14] MEDS ORDERED: BACLOFEN 10 MG TABLET (FP) ONE (13:41)
[2019-05-14] MEDS ORDERED: PANTOPRAZOLE SODIUM 40 MG VIAL ONE (13:41)
[2019-05-14] MEDS: BACLOFEN 10 MG TABLET (FP) GT SCH ×2 (13:55→17:18)
[2019-05-14] MEDS: DEXTROSE 5%-NORMAL SALINE 1,000 ML IV SCH (13:55)
[2019-05-14] MEDS: PANTOPRAZOLE SODIUM 40 MG VIAL IVPUSH SCH (13:55)
[2019-05-14] MEDS: clonazePAM 0.5 MG TABLET GT SCH ×2 (15:55→23:14)
--- NOTE | 2019-05-14 16:32 | EKG ---
Test Reason : Blood Pressure : / mmHG Vent. Rate : 078 BPM Atrial Rate : 078 BPM P-R Int : 138 ms QRS Dur : 088 ms QT Int : 390 ms P-R-T Axes : 020 118 048 degrees QTc Int : 444 ms NORMAL SINUS RHYTHM RIGHT AXIS DEVIATION INFERIOR INFARCT (CITED ON OR BEFORE 11-MAR-2019) POSTERIOR INFARCT ABNORMAL ECG Confirmed by MD KAYLA, MAXIMILIANO ([id number]) on 05/14/2019 4:32:41 PM Referred By: Confirmed By:MAXIMILIANO GARZA MD
[2019-05-14] MEDS ORDERED: PIPERACILLIN/TAZOBACTAM 3.375 GM VIAL IVPB ONE (16:58)
[2019-05-14] MEDS ORDERED: DEXTROSE 5%-WATER - 50 ML IVPB ONE (16:59)
[2019-05-14] MEDS ORDERED: PIPERACILLIN/TAZOB 3.375 GM 3.375 GM in DEXTROSE 5%-WATER - 50 ML IVPB SCH (18:00)
[2019-05-14 18:16] VITALS: BMI 21.9
[2019-05-14] MEDS: methylPREDNISolone NA SUCC 40 MG/1 ML VIAL IVPUSH SCH (18:26)
[2019-05-14] MEDS: PIPERACILLIN/TAZOB 3.375 GM 3.375 GM in DEXTROSE 5%-WATER - 50 ML IVPB SCH (18:26)
[2019-05-14] MEDS: BUDESONIDE 0.5 MG/2 ML INH SUSP VIAL NEB SCH (22:38)
[2019-05-14] MEDS: levETIRAcetam 500 MG/5 ML ORAL SOLUTION (UNIT-DOSE CUPS) GT SCH (23:15)
[2019-05-14] MEDS: APIXABAN 5 MG TABLET PO SCH (23:15)
[2019-05-14] MEDS: carBAMazepine 100 MG/5 ML UNIT-DOSE CUP GT SCH (23:19)
[2019-05-15] MEDS: BACLOFEN 10 MG TABLET (FP) GT SCH ×3 (00:03→13:14)
[2019-05-15] MEDS ORDERED: PIPERACILLIN/TAZOBACTAM 3.375 GM VIAL IVPB ONE (01:24)
[2019-05-15] MEDS ORDERED: DEXTROSE 5%-WATER - 50 ML IVPB ONE (01:24)
[2019-05-15] MEDS: PIPERACILLIN/TAZOB 3.375 GM 3.375 GM in DEXTROSE 5%-WATER - 50 ML IVPB SCH (01:36)
[2019-05-15] MEDS: methylPREDNISolone NA SUCC 40 MG/1 ML VIAL IVPUSH SCH ×3 (01:37→21:46)
[2019-05-15] MEDS: clonazePAM 0.5 MG TABLET GT SCH ×3 (05:48→21:49)
[2019-05-15] MEDS ORDERED: PT OWN MED DRAWER 7, Y5N ONE ×3 (06:45→21:40)
[2019-05-15 07:06] LABS: BASO % 0.1 % (0-2.0); HEMATOCRIT 37.1 % (35.4-49); HEMOGLOBIN 12.4 GM/dL (11.7-16.9); LYMPH % 12.7 % (8-40); MCH 29.6 pg (25.7-33.7); MCHC 33.5 g/dl (32.0-35.9); MEAN CELL VOLUME 88.3 fl (80-96); MEAN PLT VOLUME 7.5 fl (7.5-11.1); MONO % 1.9 % (3.8-10.2); NEUT % 85.3 % (42.8-82.8); PLATELET COUNT 321 K/MM3 (134-434); RDW 15.2 % (11.9-15.9); WHITE BLOOD COUNT 7.5 K/mm3 (4.0-10.0)
[2019-05-15 07:32] LABS: ALBUMIN 3.1 g/dl (3.4-5.0); BILIRUBIN,TOTAL 0.3 mg/dL (0.2-1); BLOOD UREA NITROGEN 12.2 mg/dL (7-18); CALCIUM 8.3 mg/dL (8.5-10.1); CREATININE 0.6 mg/dL (0.55-1.3); MAGNESIUM 2.7 mg/dL (1.8-2.4); PHOSPHOROUS 4.2 mg/dL (2.5-4.9); POTASSIUM 4.2 mmol/L (3.5-5.1); TOT PROT 7.3 g/dl (6.4-8.2)
[2019-05-15] MEDS: ALBUTEROL SO4 2.5/IPRATROPIUM 0.5 INH SOL 3 ML VIAL.NEB. NEB SCH ×3 (08:20→20:30)
--- NOTE | 2019-05-15 09:05 | PN ---
Progress Note (short form) - Note Progress Note: ID consult dictated imp/reccd 28 yo male with multiple developmental disabilities admitted from [facility] with fever and hypoxia no clear infiltrate UA is negative polymicrobrial bacteremia- unclear source suggest ct scan abd/pelvis and chest to look for source resume vancomycin add levaquin gentamicin one dose repeat blood cultures multiple developmental disabilities Problem List - Problems (1) Bacteremia Code(s): R78.81 - BACTEREMIA (2) Polymicrobial bacterial infection Code(s): A49.9 - BACTERIAL INFECTION, UNSPECIFIED (3) Profound developmental delay Code(s): R62.50 - UNSP LACK OF EXPECTED NORMAL PHYSIOL DEV IN CHILDHOOD (4) Cerebral palsy Code(s): G80.9 - CEREBRAL PALSY, UNSPECIFIED
[2019-05-15] MEDS ORDERED: GENTAMICIN 100 MG/100 ML BAG IVPB ONE (09:30)
[2019-05-15] MEDS ORDERED: VANCOMYCIN 1,000 MG in DEXTROSE 5%-WATER - 250 ML IVPB SCH (09:30)
[2019-05-15] MEDS ORDERED: VANCOMYCIN 1 GM in D5W (PRE-DOCKED) 1,000 MG/250 ML IVPB ONE (10:00)
[2019-05-15] MEDS ORDERED: PIPERACILLIN/TAZOB 3.375 GM 3.375 GM in DEXTROSE 5%-WATER - 50 ML IVPB SCH (10:00)
[2019-05-15] MEDS: BUDESONIDE 0.5 MG/2 ML INH SUSP VIAL NEB SCH ×2 (10:13→21:51)
[2019-05-15] MEDS: CHOLECALCIFEROL (VIT D3) 1,000 UNIT (25 MCG) TABLET GT SCH (10:33)
[2019-05-15] MEDS: APIXABAN 5 MG TABLET PO SCH ×2 (10:33→21:49)
[2019-05-15] MEDS: levETIRAcetam 500 MG/5 ML ORAL SOLUTION (UNIT-DOSE CUPS) GT SCH ×2 (10:33→21:49)
[2019-05-15] MEDS: PANTOPRAZOLE SODIUM 40 MG VIAL IVPUSH SCH (10:34)
[2019-05-15] MEDS: carBAMazepine 100 MG/5 ML UNIT-DOSE CUP GT SCH ×2 (10:36→21:50)
[2019-05-15] MEDS: VANCOMYCIN 750 MG in DEXTROSE 5%-WATER - 250 ML IVPB SCH ×2 (11:14→21:46)
--- NOTE | 2019-05-15 11:47 | PN ---
Physical Exam: SUBJECTIVE: Patient seen and examined at bedside. Pt nonverbal. OBJECTIVE: Vital Signs Period Temp Pulse Resp BP Sys/Don Pulse Ox Last 24 Hr 97.4 F-98.3 F 46-92 18-22 100-127/45-70 98-100 GEN: , On partial nonrebreather mask, NAD HEENT: Microcephalic Neck: no jvd Cardio: rrr, normal s1s2, no mrg Pulm: cta b/l Abd: soft, nondistended Ext: contracted Laboratory Results - last 24 hr 05/15/19 05/15/19 05/15/19 05:30 05:30 08:15 WBC 7.5 RBC 4.20 Hgb 12.4 Hct 37.1 D MCV 88.3 MCH 29.6 MCHC 33.5 RDW 15.2 Plt Count 321 D MPV 7.5 Absolute Neuts (auto) 6.4 Neutrophils % 85.3 H D Lymphocytes % 12.7 D Monocytes % 1.9 L Eosinophils % 0.0 D Basophils % 0.1 Nucleated RBC % 0 Sodium 137 Potassium 4.2 Chloride 103 Carbon Dioxide 24 Anion Gap 10 BUN 12.2 Creatinine 0.6 Est GFR (CKD-EPI)AfAm 159.70 Est GFR (CKD-EPI)NonAf 137.79 Random Glucose 122 H Calcium 8.3 L Phosphorus 4.2 Magnesium 2.7 H Total Bilirubin 0.3 AST 11 L ALT 29 Alkaline Phosphatase 106 Total Protein 7.3 Albumin 3.1 L Random Vancomycin 2.7 L Active Medications Generic Name Dose Route Start Last Admin Trade Name Freq PRN Reason Stop Dose Admin Acetaminophen 1,000 mg 05/14/19 13:25 Ofirmev Injection - IVPB Q6H PRN FEVER Albuterol Sulfate 1 amp 05/14/19 13:25 Ventolin 0.083% Nebulizer Soln - NEB Q4H PRN SHORT OF BREATH/WHEEZING Albuterol/Ipratropium 1 amp 05/14/19 14:00 05/15/19 08:20 Duoneb - NEB 1 amp RTID ALEKSANDR Administration Apixaban 5 mg 05/14/19 22:00 05/15/19 10:33 Eliquis - PO 5 mg BID ALEKSANDR Administration Baclofen 10 mg 05/15/19 06:00 05/15/19 05:32 Lioresal - GT 10 mg DAILY@0600,1200 ALEKSANDR Administration Baclofen 20 mg 05/14/19 18:00 05/15/19 00:03 Lioresal - GT 20 mg BID@0000,1800 ALEKSANDR Administration Budesonide 1 amp 05/14/19 22:00 05/15/19 10:13 Pulmicort 0.5 Mg Nebulizer - NEB 1 amp BID ALEKSANDR Administration Carbamazepine 280 mg 05/14/19 22:00 05/15/19 10:36 Carbamazepine GT 280 mg BID ALEKSANDR Administration Cholecalciferol 2,000 unit 05/15/19 10:00 05/15/19 10:33 Vitamin D3 - GT 2,000 unit DAILY ALEKSANDR Administration Clonazepam 1 mg 05/14/19 14:00 05/15/19 05:48 Klonopin - GT 1 mg TID ALEKSANDR Administration Dextrose/Sodium Chloride 1,000 mls @ 75 mls/hr 05/14/19 13:30 05/14/19 13:55 D5-Ns - IV 75 mls/hr ASDIR ALEKSANDR Administration Levofloxacin 500 mg in 100 mls @ 100 mls/hr 05/15/19 10:00 05/15/19 11:02 Levaquin 500 Mg Premixed Ivpb - IVPB 100 mls/hr DAILY ALEKSANDR Administration Protocol Vancomycin HCl 750 mg/ 250 mls @ 166.667 mls/hr 05/15/19 10:00 Dextrose IVPB BID ALEKSANDR Protocol Levetiracetam 1,500 mg 05/14/19 22:00 05/15/19 10:33 Keppra Oral Solution - GT 1,500 mg BID ALEKSANDR Administration Methylprednisolone Sodium Succinate 40 mg 05/14/19 18:00 05/15/19 10:35 Solu-Medrol - IVPUSH 40 mg Q8H-IV ALEKSANDR Administration Pantoprazole Sodium 40 mg 05/14/19 13:30 05/15/19 10:34 Protonix Iv IVPUSH 40 mg DAILY ALEKSANDR Administration ASSESSMENT/PLAN: 28 yom with PMHx of cerebral palsy with spastic quadriparesis, cortical blindness, HTN, microcephaly, seizure disorder, scoliosis, hyponatremia, dysphagia on PEG feeds, Popliteal DVT 02/2019 on eliquis, recurrent admissions with aspiration Pneumonia admitted with fevers, hypoxia, wheezing and diaphoresis -Sepsis. Now afebrile without leukocytosis -Suspected aspiration Pneumonia -HTN -Abnormal EKG -Cerebral palsy with spastic quadriparesis -Cortical blindness -HTN -Microcephaly -Seizure disorder -Scoliosis -Dysphagia on PEG feeds -Popliteal DVT 02/2019 - Plan: Tejinder, JEANINE input noted. Blood cultures pos for gnb (anaerobic bottle) & gpc in pairs (both bottles). Sputum cultures if available. repeat BCx pending IV solumedrol, standing and prn nebs, chest PT Hold tube feeds. gentle hydration for now. Continue eliquis, anti-epileptics. DVTPPX as above Visit type - Emergency Visit Emergency Visit: No - New Patient This patient is new to me today: No - Critical Care Critical Care patient: No ATTENDING PHYSICIAN STATEMENT I saw and evaluated the patient. I reviewed the resident's note and discussed the case with the resident. I agree with the resident's findings and plan as documented. SUBJECTIVE: OBJECTIVE: ASSESSMENT AND PLAN:
--- NOTE | 2019-05-15 11:59 | CONS ---
INFECTIOUS DISEASE CONSULTATION DATE OF CONSULTATION: DATE OF DICTATION: 05/15/2019 REQUESTING PHYSICIAN: Hospitalist service HISTORY: This is a 28-year-old man who is a resident of the [facility] He has a history of mental retardation, seizure disorder, cortical blindness, developmental delay, microcephaly. He had repeated admissions for aspiration pneumonia to [facility]. Most recently was here March 26 to April 03. Prior to that was here earlier in February for popliteal DVT and was treated last with Zosyn on the last admission. During that admission, had some blood cultures with coagulase-negative staphylococcus that was felt to be a contaminant. He is now sent from the [facility] to the hospital with complaints of fever, hypoxia, and wheezing. He was noted to have O2 saturation at 89% on room air. He was given Zosyn, vancomycin, Solu-Medrol, magnesium, and Tylenol in the ER and admitted to the floor. He had blood cultures drawn, which are now growing gram-negative bacillus in an aerobic bottle and gram-positive cocci in both aerobic and anerobic bottles. His fevers have resolved, but he continues on Solu-Medrol. He is unable to give any history. PAST MEDICAL HISTORY: Notable for profound mental retardation, cerebral palsy with spastic quadriparesis, severe developmental delay, microcephaly, intractable seizures, cortical blindness, asthma, left hip osteotomy, scoliosis. He has had Jasmin fundoplication surgery with G-tube insertion, scoliosis repair. He has a history of constipation and vitamin D deficiency. CURRENT MEDICATIONS: Include Tegretol, vitamin D, Prilosec, Klonopin, baclofen, Pulmicort, diazepam, Ventolin, Keppra, Tylenol, and Eliquis. He most recently had a popliteal DVT in February 2019 for which he will on Eliquis. ALLERGIES: He is allergic to BEEF-CONTAINING PRODUCTS, ERYTHROMYCIN, PHENOBARBITAL, and BEE VENOM. SOCIAL HISTORY: He resides at the [facility]. No history of cigarette, alcohol, or substance use. He requires assistance with all his activities. He is nonverbal and cannot follow any commands. REVIEW OF SYSTEMS: As per HPI. No other history is available. PHYSICAL EXAMINATION: Vital Signs: His maximum temperature was 101.1 at the [facility], currently is 97.8, pulse is 46, blood pressure 101/45, respiratory rate is 20. He is saturating 98% on a venturi mask. HEENT: He has microcephaly. He will not follow any commands or open his mouth. Lungs: Diminished breath sounds at the bases. Heart: Regular rate and rhythm. Abdomen: Soft. He has a G-tube in place site of which is clean. He has no skin breakdown. LABORATORIES: Notable for admitting white count of 8.2, hemoglobin 15, platelets of 402, BUN 9, creatinine 0.6. Liver function tests are normal. Urinalysis is negative. Vancomycin level this morning is 2.7. In summary, this is a 28-year-old developmentally disabled man admitted from the snf with polymicrobial bacteremia of unclear etiology. Chest x-ray appears clear for infiltrate. On his prior admission, he had a very resistant Citrobacter that was sensitive only to quinolones and aminoglycosides. Would suggest at this time we repeat blood cultures. Would treat him with vancomycin, Levaquin, and gentamicin 1 dose while we wait for his cultures. Would suggest we obtained a CAT scan of his chest, abdomen, and pelvis to help elucidate the source of his bacteremia as the urinalysis is clear and the chest x-ray shows no obvious infiltrate. We will discuss his care with the hospitalist. FLORINA FLETCHER M.D. [id number]
--- NOTE | 2019-05-15 12:57 | PN ---
Teaching Attending Note Name of Resident: Kalyan Ferrari ATTENDING PHYSICIAN STATEMENT I saw and evaluated the patient. I reviewed the resident's note and discussed the case with the resident. I agree with the resident's findings and plan as documented with exceptions below. SUBJECTIVE: Patient seen and examined, non verbal. OBJECTIVE: Vital Signs Period Temp Pulse Resp BP Sys/Don Pulse Ox Last 24 Hr 97.4 F-98.3 F 46-92 21-22 100-127/45-70 98-100 Intake & Output 05/12/19 05/13/19 05/14/19 05/15/19 23:59 23:59 23:59 23:59 Intake Total 350 925 Output Total 50 Balance 300 925 Weight 112 lb General: lying in bed, no respiratory distress Neck: contracted Chest: limited exam, coarse scattered rales, no wheezing, pos air entry Abdomen;Soft, distended, pos bowel sounds, PEG in place Extremities: contractures Home Medications Medication Instructions Recorded Carbamazepine [Tegretol -] 280 mg GT BID 03/17/18 Cholecalciferol (Vitamin D3) 2,000 unit GT DAILY 03/17/18 [Vitamin D3] Omeprazole Magnesium [Prilosec] 20 mg GT DAILY 03/17/18 clonazePAM [KlonoPIN -] 1 mg GT TID 03/17/18 Baclofen [Lioresal -] 10 mg PO DAILY@0600,1200 tablet 03/21/18 Budesonide [Pulmicort 0.5 mg 1 neb NEB BID 07/12/18 Nebulizer -] Diazepam [Diastat Acudial] 20 mg RC PRN PRN 07/12/18 Ipratropium/Albuterol Sulfate 3 ml IH QID PRN 07/12/18 [Iprat-Albut 0.5-3(2.5) mg/3 ml] levETIRAcetam [Keppra Oral 1,500 mg GT BID cup 10/06/18 Solution -] Baclofen 20 mg PO ASDIR 03/08/19 Acetaminophen Oral Solution 480 mg PO Q6H 05/14/19 [Tylenol Oral Solution -] Apixaban [Eliquis] 5 mg PO BID 05/14/19 Active Medications Acetaminophen (Ofirmev Injection -) 1,000 mg IVPB Q6H PRN PRN Reason: FEVER Albuterol Sulfate (Ventolin 0.083% Nebulizer Soln -) 1 amp NEB Q4H PRN PRN Reason: SHORT OF BREATH/WHEEZING Albuterol/Ipratropium (Duoneb -) 1 amp NEB RTID ALEKSANDR Last Admin: 05/15/19 08:20 Dose: 1 amp Apixaban (Eliquis -) 5 mg PO BID ALEKSANDR Last Admin: 05/15/19 10:33 Dose: 5 mg Baclofen (Lioresal -) 10 mg GT DAILY@0600,1200 [facility] Last Admin: 05/15/19 05:32 Dose: 10 mg Baclofen (Lioresal -) 20 mg GT BID@0000,1800 [facility] Last Admin: 05/15/19 00:03 Dose: 20 mg Budesonide (Pulmicort 0.5 Mg Nebulizer -) 1 amp NEB BID ALEKSANDR Last Admin: 05/15/19 10:13 Dose: 1 amp Carbamazepine (Carbamazepine) 280 mg GT BID ALEKSANDR Last Admin: 05/15/19 10:36 Dose: 280 mg Cholecalciferol (Vitamin D3 -) 2,000 unit GT DAILY ALEKSANDR Last Admin: 05/15/19 10:33 Dose: 2,000 unit Clonazepam (Klonopin -) 1 mg GT TID ALEKSANDR Last Admin: 05/15/19 05:48 Dose: 1 mg Dextrose/Sodium Chloride (D5-Ns -) 1,000 mls @ 75 mls/hr IV ASDIR ALEKSANDR Last Admin: 05/14/19 13:55 Dose: 75 mls/hr Levofloxacin (Levaquin 500 Mg Premixed Ivpb -) 500 mg in 100 mls @ 100 mls/hr IVPB DAILY ALEKSANDR; Protocol Last Admin: 05/15/19 11:02 Dose: 100 mls/hr Vancomycin HCl 750 mg/ (Dextrose) 250 mls @ 166.667 mls/hr IVPB BID ALEKSANDR; Protocol Levetiracetam (Keppra Oral Solution -) 1,500 mg GT BID ALEKSANDR Last Admin: 05/15/19 10:33 Dose: 1,500 mg Methylprednisolone Sodium Succinate (Solu-Medrol -) 40 mg IVPUSH Q8H-IV ALEKSANDR Last Admin: 05/15/19 10:35 Dose: 40 mg Pantoprazole Sodium (Protonix Iv) 40 mg IVPUSH DAILY ALEKSANDR Last Admin: 05/15/19 10:34 Dose: 40 mg Laboratory Results - last 24 hr 09/16/19 09/16/19 09/16/19 05:30 05:30 08:15 WBC 7.5 RBC 4.20 Hgb 12.4 Hct 37.1 D MCV 88.3 MCH 29.6 MCHC 33.5 RDW 15.2 Plt Count 321 D MPV 7.5 Absolute Neuts (auto) 6.4 Neutrophils % 85.3 H D Lymphocytes % 12.7 D Monocytes % 1.9 L Eosinophils % 0.0 D Basophils % 0.1 Nucleated RBC % 0 Sodium 137 Potassium 4.2 Chloride 103 Carbon Dioxide 24 Anion Gap 10 BUN 12.2 Creatinine 0.6 Est GFR (CKD-EPI)AfAm 159.70 Est GFR (CKD-EPI)NonAf 137.79 Random Glucose 122 H Calcium 8.3 L Phosphorus 4.2 Magnesium 2.7 H Total Bilirubin 0.3 AST 11 L ALT 29 Alkaline Phosphatase 106 Total Protein 7.3 Albumin 3.1 L Random Vancomycin 2.7 L Microbiology 05/14/19 09:15 Blood - Peripheral Venous Blood Culture - Preliminary NO GROWTH OBTAINED AFTER 24 HOURS, INCUBATION TO CONTINUE FOR 4 DAYS. 05/14/19 09:40 Urine - Urine - Catheterized Urine Culture - Final NO GROWTH OBTAINED 05/14/19 09:15 Blood - Peripheral Venous Blood Culture - Preliminary Lactose Fermenting Neg Bacilli Pending Organism#2 ASSESSMENT AND PLAN: 28 yom with PMHx of cerebral palsy with spastic quadriparesis, cortical blindness, HTN, microcephaly, seizure disorder, scoliosis, hyponatremia, dysphagia on PEG feeds, Popliteal DVT 02/2019 on eliquis, recurrent admissions with aspiration Pneumonia admitted with fevers, hypoxia, wheezing and diaphoresis -Sepsis -Suspected aspiration Pneumonia -Polymicrobial bacteremia -HTN -Abnormal EKG -Cerebral palsy with spastic quadriparesis -Cortical blindness -HTN -Microcephaly -Seizure disorder -Scoliosis -Dysphagia on PEG feeds -Popliteal DVT 02/2019 - Plan: Blood cx noted. ID input noted. Levaquin/vancomycin. Gentamicin x [address] Chest/A/P. Respiratory status improved, current dose of solumedrol. Standing and prn nebs. Chest PT. Hold tube feeds, resume in 24 hours if continues to improve. gentle hydration for now. Continue eliquis, anti-epileptics. DVTPPX as above Dispo pending clinical improvement. Discussed with nursing and aide at bedside, all questions answered.
[2019-05-16] MEDS: BACLOFEN 10 MG TABLET (FP) GT SCH ×5 (04:26→17:23)
[2019-05-16] MEDS: clonazePAM 0.5 MG TABLET GT SCH ×3 (05:53→22:02)
[2019-05-16] MEDS: DEXTROSE 5%-NORMAL SALINE 1,000 ML IV SCH ×2 (05:55→22:50)
[2019-05-16 08:02] LABS: HEMATOCRIT 34.9 % (35.4-49); HEMOGLOBIN 11.5 GM/dL (11.7-16.9); MEAN CELL VOLUME 87.9 fl (80-96); MEAN PLT VOLUME 7.3 fl (7.5-11.1); PLATELET COUNT 277 K/MM3 (134-434); RBC 3.97 M/mm3 (4.00-5.60); WHITE BLOOD COUNT 12.9 K/mm3 (4.0-10.0)
[2019-05-16] MEDS: ALBUTEROL SO4 2.5/IPRATROPIUM 0.5 INH SOL 3 ML VIAL.NEB. NEB SCH ×3 (08:02→20:30)
[2019-05-16] MEDS: BUDESONIDE 0.5 MG/2 ML INH SUSP VIAL NEB SCH ×2 (10:00→22:51)
[2019-05-16] MEDS ORDERED: PT OWN MED DRAWER 7, Y5N ONE ×3 (10:58→21:36)
[2019-05-16] MEDS: carBAMazepine 100 MG/5 ML UNIT-DOSE CUP GT SCH ×2 (11:00→21:57)
[2019-05-16] MEDS: CHOLECALCIFEROL (VIT D3) 1,000 UNIT (25 MCG) TABLET GT SCH (11:00)
[2019-05-16] MEDS: VANCOMYCIN 750 MG in DEXTROSE 5%-WATER - 250 ML IVPB SCH ×2 (11:00→21:49)
[2019-05-16] MEDS: PANTOPRAZOLE SODIUM 40 MG VIAL IVPUSH SCH (11:00)
[2019-05-16] MEDS: levETIRAcetam 500 MG/5 ML ORAL SOLUTION (UNIT-DOSE CUPS) GT SCH ×2 (11:00→21:53)
[2019-05-16] MEDS: methylPREDNISolone NA SUCC 40 MG/1 ML VIAL IVPUSH SCH (11:00)
--- NOTE | 2019-05-16 11:57 | PN ---
Teaching Attending Note Name of Resident: Kalyan Ferrari ATTENDING PHYSICIAN STATEMENT I saw and evaluated the patient. I reviewed the resident's note and discussed the case with the resident. I agree with the resident's findings and plan as documented with exceptions below. SUBJECTIVE: Patient seen and examined, non verbal, comfortable. OBJECTIVE: Vital Signs Period Temp Pulse Resp BP Sys/Don Pulse Ox Last 24 Hr 97.9 F-98.8 F 68-89 20 108-140/45-66 100 Intake & Output 05/13/19 05/14/19 05/15/19 05/16/19 23:59 23:59 23:59 23:59 Intake Total 350 2275 963 Output Total 50 500 Balance 300 2275 463 Weight 112 lb General: comfortable in bed, no use of accessory muscles of respiration Neck: contracted CVS:S1S2 regular Chest: improved air entry, no coarse rales or wheezing appreciated today Abdomen:soft, NT Extremities: contractures Home Medications Medication Instructions Recorded Carbamazepine [Tegretol -] 280 mg GT BID 03/17/18 Cholecalciferol (Vitamin D3) 2,000 unit GT DAILY 03/17/18 [Vitamin D3] Omeprazole Magnesium [Prilosec] 20 mg GT DAILY 03/17/18 clonazePAM [KlonoPIN -] 1 mg GT TID 03/17/18 Baclofen [Lioresal -] 10 mg PO DAILY@0600,1200 tablet 03/21/18 Budesonide [Pulmicort 0.5 mg 1 neb NEB BID 07/12/18 Nebulizer -] Diazepam [Diastat Acudial] 20 mg RC PRN PRN 07/12/18 Ipratropium/Albuterol Sulfate 3 ml IH QID PRN 07/12/18 [Iprat-Albut 0.5-3(2.5) mg/3 ml] levETIRAcetam [Keppra Oral 1,500 mg GT BID cup 10/06/18 Solution -] Baclofen 20 mg PO ASDIR 03/08/19 Acetaminophen Oral Solution 480 mg PO Q6H 05/14/19 [Tylenol Oral Solution -] Apixaban [Eliquis] 5 mg PO BID 05/14/19 Active Medications Acetaminophen (Ofirmev Injection -) 1,000 mg IVPB Q6H PRN PRN Reason: FEVER Albuterol Sulfate (Ventolin 0.083% Nebulizer Soln -) 1 amp NEB Q4H PRN PRN Reason: SHORT OF BREATH/WHEEZING Albuterol/Ipratropium (Duoneb -) 1 amp NEB RTID [facility] Last Admin: 05/16/19 08:02 Dose: 1 amp Apixaban (Eliquis -) 5 mg PO BID ALEKSANDR Last Admin: 05/15/19 21:49 Dose: 5 mg Baclofen (Lioresal -) 10 mg GT DAILY@0600,1200 [facility] Last Admin: 05/16/19 05:54 Dose: 10 mg Baclofen (Lioresal -) 20 mg GT BID@0000,1800 [facility] Last Admin: 05/16/19 04:27 Dose: 20 mg Budesonide (Pulmicort 0.5 Mg Nebulizer -) 1 amp NEB BID [facility] Last Admin: 05/15/19 21:51 Dose: 1 amp Carbamazepine (Carbamazepine) 280 mg GT BID [facility] Last Admin: 05/15/19 21:50 Dose: 280 mg Cholecalciferol (Vitamin D3 -) 2,000 unit GT DAILY [facility] Last Admin: 05/15/19 10:33 Dose: 2,000 unit Clonazepam (Klonopin -) 1 mg GT TID [facility] Last Admin: 05/16/19 05:53 Dose: 1 mg Dextrose/Sodium Chloride (D5-Ns -) 1,000 mls @ 75 mls/hr IV ASDIR [facility] Last Admin: 05/16/19 05:55 Dose: 75 mls/hr Levofloxacin (Levaquin 500 Mg Premixed Ivpb -) 500 mg in 100 mls @ 100 mls/hr IVPB DAILY [facility]; Protocol Last Admin: 05/15/19 11:02 Dose: 100 mls/hr Vancomycin HCl 750 mg/ (Dextrose) 250 mls @ 166.667 mls/hr IVPB BID [facility]; Protocol Last Admin: 05/15/19 21:46 Dose: 166.667 mls/hr Levetiracetam (Keppra Oral Solution -) 1,500 mg GT BID [facility] Last Admin: 05/15/19 21:49 Dose: 1,500 mg Methylprednisolone Sodium Succinate (Solu-Medrol -) 40 mg IVPUSH BID [facility] Last Admin: 05/15/19 21:46 Dose: 40 mg Pantoprazole Sodium (Protonix Iv) 40 mg IVPUSH DAILY [facility] Last Admin: 05/15/19 10:34 Dose: 40 mg Laboratory Results - last 24 hr 05/16/19 07:55 WBC 12.9 H RBC 3.97 L Hgb 11.5 L Hct 34.9 L MCV 87.9 MCH 29.0 MCHC 33.0 RDW 15.0 Plt Count 277 MPV 7.3 L Microbiology 05/15/19 10:25 Blood - Peripheral Venous Blood Culture - Preliminary NO GROWTH OBTAINED AFTER 24 HOURS, INCUBATION TO CONTINUE FOR 4 DAYS. 05/15/19 10:39 Blood - Peripheral Venous Blood Culture - Preliminary NO GROWTH OBTAINED AFTER 24 HOURS, INCUBATION TO CONTINUE FOR 4 DAYS. 05/14/19 09:15 Blood - Peripheral Venous Blood Culture - Preliminary Klebsiella Pneumoniae Staphylococcus Coagulase Neg Staphylococcus Coagulase Neg#2 05/14/19 09:15 Blood - Peripheral Venous Blood Culture - Preliminary NO GROWTH OBTAINED AFTER 48 HOURS, INCUBATION TO CONTINUE FOR 3 DAYS. 05/14/19 09:40 Urine - Urine - Catheterized Urine Culture - Final NO GROWTH OBTAINED ASSESSMENT AND PLAN: 28 yom with PMHx of cerebral palsy with spastic quadriparesis, cortical blindness, HTN, microcephaly, seizure disorder, scoliosis, hyponatremia, dysphagia on PEG feeds, Popliteal DVT 02/2019 on eliquis, recurrent admissions with aspiration Pneumonia admitted with fevers, hypoxia, wheezing and diaphoresis -Sepsis -Suspected aspiration Pneumonia -Polymicrobial bacteremia, klebsiella pneumonia/Coag neg staph -HTN -Abnormal EKG -Cerebral palsy with spastic quadriparesis -Cortical blindness -HTN -Microcephaly -Seizure disorder -Scoliosis -Dysphagia on PEG feeds -Popliteal DVT 02/2019 - Plan: Blood cx noted. ID input noted. Levaquin/vancomycin. Gentamicin x [address] chest/A/P neg for concerns. Repeat blood cx neg so far. Respiratory status improved, change to short course po prednisone. Standing and prn nebs. Chest PT. Resume tube feeds, dietary consult, aspiration precautions. Continue eliquis, anti-epileptics. DVTPPX as above Dispo back to [place] in 24-48 hours if afebrile, clinically improved pending ID plans for abx. Discussed with nursing, all questions answered.
[2019-05-16] MEDS: APIXABAN 5 MG TABLET PO SCH ×2 (12:30→21:56)
--- NOTE | 2019-05-16 15:59 | PN ---
Progress Note (short form) - Note Progress Note: NAD no more fevers Vital Signs Period Temp Pulse Resp BP Sys/Don Pulse Ox Last 24 Hr 97.7 F-98.8 F 68-89 20 108-140/45-76 100 cor-rrr lungs clear decreased bs at bases abd soft,nt +GT ext no edema CBC, BMP 05/16/19 07:55 05/15/19 05:30 Microbiology 05/15/19 10:25 Blood - Peripheral Venous Blood Culture - Preliminary NO GROWTH OBTAINED AFTER 24 HOURS, INCUBATION TO CONTINUE FOR 4 DAYS. 05/15/19 10:39 Blood - Peripheral Venous Blood Culture - Preliminary NO GROWTH OBTAINED AFTER 24 HOURS, INCUBATION TO CONTINUE FOR 4 DAYS. 05/14/19 09:15 Blood - Peripheral Venous Blood Culture - Preliminary Klebsiella Pneumoniae Staphylococcus Coagulase Neg Staphylococcus Coagulase Neg#2 05/14/19 09:15 Blood - Peripheral Venous Blood Culture - Preliminary NO GROWTH OBTAINED AFTER 48 HOURS, INCUBATION TO CONTINUE FOR 3 DAYS. 05/14/19 09:40 Urine - Urine - Catheterized Urine Culture - Final NO GROWTH OBTAINED ct scan chest/abd/pelvis- no pneumonia, no intra-abdominal process a/p polymicrobrial bacteremia- unclear source, SCN most likely contaminant- await ID vancomycin and ceftriaxone for now f/u cultures multiple developmental disabilities Problem List - Problems (1) Bacteremia Code(s): R78.81 - BACTEREMIA (2) Polymicrobial bacterial infection Code(s): A49.9 - BACTERIAL INFECTION, UNSPECIFIED (3) Profound developmental delay Code(s): R62.50 - UNSP LACK OF EXPECTED NORMAL PHYSIOL DEV IN CHILDHOOD (4) Cerebral palsy Code(s): G80.9 - CEREBRAL PALSY, UNSPECIFIED
--- NOTE | 2019-05-16 17:00 | PN ---
Physical Exam: SUBJECTIVE: Patient seen and examined at bedside. No events. Nonverbal. OBJECTIVE: Vital Signs Period Temp Pulse Resp BP Sys/Don Pulse Ox Last 24 Hr 97.7 F-98.8 F 68-89 20 108-140/45-76 100 GEN: , On partial nonrebreather mask, NAD HEENT: Microcephalic Neck: no jvd Cardio: rrr, normal s1s2, no mrg Pulm: cta b/l Abd: soft, nondistended Ext: contracted Laboratory Results - last 24 hr 05/16/19 07:55 WBC 12.9 H RBC 3.97 L Hgb 11.5 L Hct 34.9 L MCV 87.9 MCH 29.0 MCHC 33.0 RDW 15.0 Plt Count 277 MPV 7.3 L Active Medications Generic Name Dose Route Start Last Admin Trade Name Freq PRN Reason Stop Dose Admin Acetaminophen 1,000 mg 05/14/19 13:25 Ofirmev Injection - IVPB Q6H PRN FEVER Albuterol Sulfate 1 amp 05/14/19 13:25 Ventolin 0.083% Nebulizer Soln - NEB Q4H PRN SHORT OF BREATH/WHEEZING Albuterol/Ipratropium 1 amp 05/14/19 14:00 05/16/19 14:00 Duoneb - NEB 1 amp RTID ALEKSANDR Administration Apixaban 5 mg 05/14/19 22:00 05/16/19 12:30 Eliquis - PO 5 mg BID ALEKSANDR Administration Baclofen 10 mg 05/15/19 06:00 05/16/19 11:00 Lioresal - GT 10 mg DAILY@0600,1200 ALEKSANDR Administration Baclofen 20 mg 05/14/19 18:00 05/16/19 04:27 Lioresal - GT 20 mg BID@0000,1800 ALEKSANDR Administration Budesonide 1 amp 05/14/19 22:00 05/16/19 10:00 Pulmicort 0.5 Mg Nebulizer - NEB 1 amp BID ALEKSANDR Administration Carbamazepine 280 mg 05/14/19 22:00 05/16/19 11:00 Carbamazepine GT 280 mg BID ALEKSANDR Administration Cholecalciferol 2,000 unit 05/15/19 10:00 05/16/19 11:00 Vitamin D3 - GT 2,000 unit DAILY ALEKSANDR Administration Clonazepam 1 mg 05/14/19 14:00 05/16/19 11:00 Klonopin - GT 1 mg TID ALEKSANDR Administration Dextrose/Sodium Chloride 1,000 mls @ 75 mls/hr 05/14/19 13:30 05/16/19 05:55 D5-Ns - IV 75 mls/hr ASDIR ALEKSANDR Administration Vancomycin HCl 750 mg/ 250 mls @ 166.667 mls/hr 05/15/19 10:00 05/16/19 11:00 Dextrose IVPB 166.667 mls/hr BID ALEKSANDR Administration Protocol Ceftriaxone Sodium 1 gm/ 50 mls @ 100 mls/hr 05/16/19 16:00 Dextrose IVPB DAILY ALEKSANDR Protocol Levetiracetam 1,500 mg 05/14/19 22:00 05/16/19 11:00 Keppra Oral Solution - GT 1,500 mg BID ALEKSANDR Administration Pantoprazole Sodium 40 mg 05/14/19 13:30 05/16/19 11:00 Protonix Iv IVPUSH 40 mg DAILY ALEKSANDR Administration Prednisone 40 mg 05/17/19 10:00 Deltasone - GT DAILY ALEKSANDR ASSESSMENT/PLAN: 28 y/o M with PMHx of cerebral palsy with spastic quadriparesis, cortical blindness, HTN, microcephaly, seizure disorder, scoliosis, hyponatremia, dysphagia on PEG feeds, Popliteal DVT 02/2019 on eliquis, recurrent admissions with aspiration Pneumonia admitted with fevers, hypoxia, wheezing and diaphoresis #Sepsis. Now afebrile without leukocytosis -Suspected aspiration Pneumonia -ID on board -Vanc, Ceftriaxone #HTN -hold antihypertensives -BP stable at this time #Congenital problems -Cerebral palsy with spastic quadriparesis -Cortical blindness -Microcephaly -Seizure disorder -Scoliosis -c/w AEDs #Dysphagia -PEG feeds -Dietary recs apperciated Visit type - Emergency Visit Emergency Visit: No - New Patient This patient is new to me today: No - Critical Care Critical Care patient: No ATTENDING PHYSICIAN STATEMENT I saw and evaluated the patient. I reviewed the resident's note and discussed the case with the resident. I agree with the resident's findings and plan as documented. SUBJECTIVE: OBJECTIVE: ASSESSMENT AND PLAN:
[2019-05-16] MEDS ORDERED: cefTRIAXone SODIUM 1 GM VIAL ONE (17:13)
[2019-05-16] MEDS ORDERED: DEXTROSE 5%-WATER - 50 ML IVPB ONE (17:13)
[2019-05-16] MEDS: CEFTRIAXONE 1 GM in DEXTROSE 5%-WATER - 50 ML IVPB SCH (17:19)
[2019-05-17] MEDS ORDERED: PT OWN MED DRAWER 7, Y5N ONE ×2 (00:53→11:24)
[2019-05-17] MEDS: BACLOFEN 10 MG TABLET (FP) GT SCH ×4 (01:00→17:43)
[2019-05-17] MEDS: clonazePAM 0.5 MG TABLET GT SCH ×2 (06:12→14:08)
[2019-05-17] MEDS: ALBUTEROL SO4 2.5/IPRATROPIUM 0.5 INH SOL 3 ML VIAL.NEB. NEB SCH ×2 (07:50→14:20)
[2019-05-17 08:24] LABS: BASO % 0.9 % (0-2.0); EOS % 0.3 % (0-4.5); HEMATOCRIT 35.8 % (35.4-49); HEMOGLOBIN 11.8 GM/dL (11.7-16.9); LYMPH % 47.2 % (8-40); MCH 29.2 pg (25.7-33.7); MEAN CELL VOLUME 88.7 fl (80-96); MEAN PLT VOLUME 8.4 fl (7.5-11.1); MONO % 10.6 % (3.8-10.2); PLATELET COUNT 246 K/MM3 (134-434); RBC 4.04 M/mm3 (4.00-5.60); RDW 14.9 % (11.9-15.9); WHITE BLOOD COUNT 6.9 K/mm3 (4.0-10.0)
[2019-05-17 08:52] LABS: BLOOD UREA NITROGEN 4.7 mg/dL (7-18); CREATININE 0.3 mg/dL (0.55-1.3); POTASSIUM 3.3 mmol/L (3.5-5.1)
[2019-05-17 08:53] LABS: CALCIUM 8.4 mg/dL (8.5-10.1)
[2019-05-17] MEDS: BUDESONIDE 0.5 MG/2 ML INH SUSP VIAL NEB SCH (09:50)
[2019-05-17] MEDS ORDERED: POTASSIUM CHLORIDE ORAL LIQUID 20 MEQ/15 ML GT ONE (10:00)
[2019-05-17] MEDS ORDERED: predniSONE 5 MG/5 ML ORAL SOLN- UNIT-DOSE CUP GT SCH (10:00)
[2019-05-17] MEDS ORDERED: cefTRIAXone SODIUM 1 GM VIAL ONE (11:26)
[2019-05-17] MEDS ORDERED: DEXTROSE 5%-WATER - 50 ML IVPB ONE (11:26)
[2019-05-17] MEDS: carBAMazepine 100 MG/5 ML UNIT-DOSE CUP GT SCH (11:54)
[2019-05-17] MEDS: APIXABAN 5 MG TABLET PO SCH (11:56)
[2019-05-17] MEDS: levETIRAcetam 500 MG/5 ML ORAL SOLUTION (UNIT-DOSE CUPS) GT SCH (11:57)
[2019-05-17] MEDS: PANTOPRAZOLE SODIUM 40 MG VIAL IVPUSH SCH (11:58)
[2019-05-17] MEDS: CEFTRIAXONE 1 GM in DEXTROSE 5%-WATER - 50 ML IVPB SCH (11:59)
[2019-05-17] MEDS: CHOLECALCIFEROL (VIT D3) 1,000 UNIT (25 MCG) TABLET GT SCH (12:00)
[2019-05-17 14:22] VITALS: BP 126/72; PULSE 69; TEMP 97.4
--- NOTE | 2019-05-17 14:55 | PN ---
Progress Note (short form) - Note Progress Note: NAD nonverbal Vital Signs Period Temp Pulse Resp BP Sys/Don Pulse Ox Last 24 Hr 97.4 F-98.3 F 59-81 17-21 96-135/45-81 97 cor-rrr lungs clear abd soft,nt ext no edema CBC, BMP 05/17/19 06:45 05/17/19 06:45 Microbiology 05/14/19 09:15 Blood - Peripheral Venous Blood Culture - Preliminary Klebsiella Pneumoniae Staphylococcus Epidermidis Staphylococcus Coagulase Neg#2 05/15/19 10:25 Blood - Peripheral Venous Blood Culture - Preliminary NO GROWTH OBTAINED AFTER 48 HOURS, INCUBATION TO CONTINUE FOR 3 DAYS. 05/15/19 10:39 Blood - Peripheral Venous Blood Culture - Preliminary NO GROWTH OBTAINED AFTER 48 HOURS, INCUBATION TO CONTINUE FOR 3 DAYS. 05/14/19 09:15 Blood - Peripheral Venous Blood Culture - Preliminary NO GROWTH OBTAINED AFTER 72 HOURS, INCUBATION TO CONTINUE FOR 2 DAYS. 05/14/19 09:40 Urine - Urine - Catheterized Urine Culture - Final NO GROWTH OBTAINED ct scan chest/abd/pelvis- no pneumonia, no intra-abdominal process a/p polymicrobrial bacteremia- unclear source, ct scans unrevealing SCN most likely contaminant- d/c vancomycin- day #3 antiibotics can switch to po levaquin (via GT)- 500 mg daily for 7 days ?bronchitis- improved seizure disorder- monitor on the levaquin multiple developmental disabilities d/w resident dr hill Problem List - Problems (1) Bacteremia Code(s): R78.81 - BACTEREMIA (2) Polymicrobial bacterial infection Code(s): A49.9 - BACTERIAL INFECTION, UNSPECIFIED (3) Profound developmental delay Code(s): R62.50 - UNSP LACK OF EXPECTED NORMAL PHYSIOL DEV IN CHILDHOOD (4) Cerebral palsy Code(s): G80.9 - CEREBRAL PALSY, UNSPECIFIED
[2019-05-17] MEDS: VANCOMYCIN 750 MG in DEXTROSE 5%-WATER - 250 ML IVPB SCH (14:56)
--- NOTE | 2019-05-17 15:06 | PN ---
Teaching Attending Note Name of Resident: Kalyan Ferrari ATTENDING PHYSICIAN STATEMENT I saw and evaluated the patient. I reviewed the resident's note and discussed the case with the resident. I agree with the resident's findings and plan as documented. Seen and examined; nonverbal. Nonagitated. On chronic O2; afebrile and hemodynamically stable overnight. Discussed with ID service and patient is clear to discharge back to [facility]. Placing on Levaquin x1 week per their orders and resident team did discuss case with Dr. Mayorga. No further culture growth and this is likely to be contamination. Couldn't obtain ROS due to underlying clinical issues VS, labs, imaging reviewed NAD, AAOx0 but will track and responds to stimuli, resting in bed on 2L O2 Not agitated, cannot do full psych assessment Moves all 4 extremities, sensorium intact, no fnds apparent. Noncooperative with full exam at baseline RRR s1/2 Lungs with poor effort but no focal exam findings Microbiology without further growth Microbiology 05/14/19 09:15 Blood - Peripheral Venous Blood Culture - Preliminary Klebsiella Pneumoniae Staphylococcus Epidermidis Staphylococcus Coagulase Neg#2 05/15/19 10:25 Blood - Peripheral Venous Blood Culture - Preliminary NO GROWTH OBTAINED AFTER 48 HOURS, INCUBATION TO CONTINUE FOR 3 DAYS. 05/15/19 10:39 Blood - Peripheral Venous Blood Culture - Preliminary NO GROWTH OBTAINED AFTER 48 HOURS, INCUBATION TO CONTINUE FOR 3 DAYS. 05/14/19 09:15 Blood - Peripheral Venous Blood Culture - Preliminary NO GROWTH OBTAINED AFTER 72 HOURS, INCUBATION TO CONTINUE FOR 2 DAYS. 05/14/19 09:40 Urine - Urine - Catheterized Urine Culture - Final NO GROWTH OBTAINED ASSESSMENT AND PLAN: Patient presented for suspected sepsis; he was found to have polymicrobial bacteremia which is likely contamination. He has no identifiable source of infection at this juncture. He remains afebrile and hemodynamically stable without further culture growth. He will be discharged home to the [facility]. He is on baseline O2 via NC at 2L. Completing a course of empiric levaquin per ID. Case discussed with Dr. Mayorga by resident. His problem list includes: -Sepsis -Suspected aspiration Pneumonia; completing levaquin, no further fevers or secretions, ? true infection? 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 Followup: -PCP: Per facility, ideally within 72 hours -ID: 1-2 weeks Meds: Continue Levaquin for 7-day course as recommended by ID Guarded prognosis; his underlying chronic medical issues for which there is no cure puts him at extreme risk of bounceback and decompensation.
--- NOTE | 2019-05-17 21:12 | DS ---
Physical Exam: SUBJECTIVE: Patient seen and examined at bedside. Nonverbal OBJECTIVE: Vital Signs Period Temp Pulse Resp BP Sys/Don Pulse Ox Last 24 Hr 97.4 F-97.6 F 59-81 17-18 104-135/45-72 98 PHYSICAL EXAM GEN: , NC, NAD HEENT: Microcephalic Neck: no jvd Cardio: rrr, normal s1s2, no mrg Pulm: cta b/l Abd: soft, nondistended Ext: contracted LABS Laboratory Results - last 24 hr 05/17/19 05/17/19 06:45 06:45 WBC 6.9 RBC 4.04 Hgb 11.8 Hct 35.8 MCV 88.7 MCH 29.2 MCHC 33.0 RDW 14.9 Plt Count 246 MPV 8.4 D Absolute Neuts (auto) 2.8 Neutrophils % 41.0 L D Lymphocytes % 47.2 H D Monocytes % 10.6 H D Eosinophils % 0.3 D Basophils % 0.9 D Nucleated RBC % 0 Sodium 139 Potassium 3.3 L Chloride 105 Carbon Dioxide 27 Anion Gap 7 L BUN 4.7 L Creatinine 0.3 L Est GFR (CKD-EPI)AfAm 212.34 Est GFR (CKD-EPI)NonAf 183.21 Random Glucose 94 Calcium 8.4 L HOSPITAL COURSE: Date of Admission:05/14/19 Date of Discharge: 05/17/19 28 y/o M with PMHx of cerebral palsy with spastic quadriparesis, cortical blindness, HTN, microcephaly, seizure disorder, scoliosis, hyponatremia, dysphagia on PEG feeds, Popliteal DVT 02/2019 on eliquis, recurrent admissions with aspiration Pneumonia admitted with fevers, hypoxia, wheezing and diaphoresis Mr. Lara was treated for Sepsis likely 2/2 aspiration PNA. His fever and leukocytosis resolved. He was seen by ID and was given IV antibiotics. His oxygen requirement was transiently increased but resolved to his baseline as his clinical picture improved. He discharged on po antibiotics. His HTN medications were held in the setting of sepsis. His congenital problems were treated with home medications. Minutes to complete discharge: 30 Discharge Summary Reason For Visit: PNEUMONIA Current Active Problems Bacteremia (Acute) Pneumonia (Acute) Polymicrobial bacterial infection (Acute) Profound developmental delay (Acute) Respiratory distress (Acute) Functional quadriplegia (Chronic) Condition: Improved - Instructions Diet, Activity, Other Instructions: You were in the hospital because of shortness of breath and fevers. You need to follow up with the following doctors: Dr. Mayorga, primary care Dr. Her, infectious diseases You are being sent on the following medications: Levaquin by G-tube, 500mg once daily for 1 week If your symptoms get worse, call your doctor or return to the emergency department. Referrals: Vasiliy Her MD [Staff Physician] - Disposition: [facility] - Home Medications Comprehensive Discharge Medication List: Ambulatory Orders Carbamazepine [Tegretol -] 280 mg GT BID 03/17/18 Cholecalciferol (Vitamin D3) [Vitamin D3] 2,000 unit GT DAILY 03/17/18 Omeprazole Magnesium [Prilosec] 20 mg GT DAILY 03/17/18 clonazePAM [KlonoPIN -] 1 mg GT TID 03/17/18 Baclofen [Lioresal -] 10 mg PO DAILY@0600,1200 tablet 03/21/18 Budesonide [Pulmicort 0.5 mg Nebulizer -] 1 neb NEB BID 07/12/18 Diazepam [Diastat Acudial] 20 mg RC PRN PRN 07/12/18 Ipratropium/Albuterol Sulfate [Iprat-Albut 0.5-3(2.5) mg/3 ml] 3 ml IH QID PRN 07/12/18 levETIRAcetam [Keppra Oral Solution -] 1,500 mg GT BID cup 10/06/18 Baclofen 20 mg PO ASDIR 03/08/19 Acetaminophen Oral Solution [Tylenol 160mg/5mL Oral Solution -] 480 mg PO Q6H Apixaban [Eliquis] 5 mg PO BID 05/14/19 Levofloxacin [Levaquin] 500 mg PO DAILY #7 tablet 05/17/19 This patient is new to me today: No Emergency Visit: No Critical Care patient: No - Discharge Referral Referred to [facility] Med P.C[facility] No ATTENDING PHYSICIAN STATEMENT I saw and evaluated the patient. I reviewed the resident's note and discussed the case with the resident. I agree with the resident's findings and plan as documented. SUBJECTIVE: OBJECTIVE: ASSESSMENT AND PLAN:
== END 2019-05-17 21:30 | disposition home or self-care (01) | DRG 720 ==
LOC: JER 08:32 → JERBED 10:07 → J6S 14:57
PROVIDERS: ADMIT Hospitalist; ATTEND Internal Medicine
DX: A41.89 Other specified sepsis (principal); Q02 Microcephaly; I10 Essential (primary) hypertension; R13.10 Dysphagia, unspecified; R06.03 Acute respiratory distress; R09.02 Hypoxemia; G40.909 Epilepsy, unspecified, not intractable, without status epilepticus; G80.9 Cerebral palsy, unspecified; Z93.1 Gastrostomy status; H47.619 Cortical blindness, unspecified side of brain; Z98.83 Filtering (vitreous) bleb after glaucoma surgery status; F73 Profound intellectual disabilities; G80.0 Spastic quadriplegic cerebral palsy; Q67.5 Congenital deformity of spine; J69.0 Pneumonitis due to inhalation of food and vomit; R64 Cachexia; Z68.21 Body mass index [BMI] 21.0-21.9, adult
CPT/HCPCS: 36415; 36600; 71045-TC-FY; 71260-TC; 74177-TC; 80048; 80053; 81003; 82375; 82803; 83050; 83605; 83735; 84100; 84484; 85025; 85027; 85610; 85730; 87040; 87086; 87186; 93005; 93010; 94640; 99285-25; G0480; J0131; J0475; Q9967

== ENCOUNTER 2019-05-21 02:25 | Inpatient (IN) | payer OTHER ==
--- NOTE | 2019-05-21 04:16 | PDOC ---
History of Present Illness - General History Source: EMS Exam Limitations: Physical Impairment, Unresponsive <JerryCaitlin - Last Filed: 05/21/19 07:19> <Greg Rodriguez - Last Filed: 05/21/19 10:24> - General Chief Complaint: SIRS, Suspected/Possible Stated Complaint: FEVER Time Seen by Provider: 05/21/19 04:16 Past History - Travel Traveled outside of the country in the last 30 days: No Close contact w/someone who was outside of country & ill: No - Past Medical History Asthma: Yes Cancer: No Cardiac Disorders: No COPD: Yes (asthma, aspiration pnuemonia and respiratory distress) CHF: No Dementia: Yes (mental retardation) Diabetes: No GI Disorders: Yes (dysphagia, s/p peg insertion) Disorders: Yes (left testicular torsion, scrotal pain) HTN: No Hypercholesterolemia: No Psychiatric Problems: (hyponatremia (due to meds)) Seizures: Yes - Surgical History Neurologic Surgery: Yes (scoliosis w/ mcelroy rods) Orthopedic Surgery: (Left Hip Osteotomy) - Immunization History Td Vaccination: Yes TDAP Vaccination: Yes Immunization Up to Date: Yes - Suicide/Smoking/Psychosocial Hx Smoking History: Unknown if ever smoked Have you smoked in the past 12 months: No Number of Cigarettes Smoked Daily: 0 Cigars Per Day: 0 Information on smoking cessation initiated: No Hx Alcohol Use: No Drug/Substance Use Hx: No Substance Use Type: None Hx Substance Use Treatment: No <Caitlin Jerry - Last Filed: 05/21/19 07:19> <Greg Rodriguez - Last Filed: 05/21/19 10:24> - Past Medical History Allergies/Adverse Reactions: Allergies Allergy/AdvReac Type Severity Reaction Status Date / Time Beef Containing Products Allergy Unknown Verified 05/21/19 02:30 erythromycin base Allergy Verified 05/21/19 02:30 phenobarbital Allergy Verified 05/21/19 02:30 venom-honey bee Allergy Verified 05/21/19 02:30 [bee venom (honey bee)] Home Medications: Ambulatory Orders Carbamazepine [Tegretol -] 280 mg GT BID 03/17/18 Cholecalciferol (Vitamin D3) [Vitamin D3] 2,000 unit GT DAILY 03/17/18 Omeprazole Magnesium [Prilosec] 20 mg GT DAILY 03/17/18 clonazePAM [KlonoPIN -] 1 mg GT TID 03/17/18 Budesonide [Pulmicort 0.5 mg Nebulizer -] 1 neb NEB BID 07/12/18 Diazepam [Diastat Acudial] 20 mg RC PRN PRN 07/12/18 Ipratropium/Albuterol Sulfate [Iprat-Albut 0.5-3(2.5) mg/3 ml] 3 ml IH QID PRN 07/12/18 levETIRAcetam [Keppra Oral Solution -] 1,500 mg GT BID cup 10/06/18 Baclofen 20 mg GT ASDIR 03/08/19 Acetaminophen Oral Solution [Tylenol 160mg/5mL Oral Solution -] 480 mg PO Q6H Apixaban [Eliquis] 5 mg GT BID 05/14/19 Aspirin [ASA -] 81 mg GT DAILY 05/21/19 Tamsulosin HCl [Flomax] 0.4 mg GT DAILY 05/21/19 Review of Systems - Review of Systems Able to Perform ROS?: No (Pt is unable to speak) <Caitlin Jerry - Last Filed: 05/21/19 07:19> *Physical Exam - Vital Signs Last Vital Signs Temp Pulse Resp BP Pulse Ox 102.6 F H 105 H 16 107/80 89 L 05/21/19 02:39 05/21/19 02:30 05/21/19 02:30 05/21/19 02:30 05/21/19 02:30 - Physical Exam General Appearance: Yes: Mild Distress, Other (contracted and bed ridden) HEENT: positive: EOMI, SILVESTRE. negative: Normal ENT Inspection, Normal Voice, Symmetrical, TMs Normal, Pharynx Normal, Pale Conjunctivae, Photophobia, Scleral Icterus (R), Scleral Icterus (L), Muffled/Hoarse voice, Pharyngeal Erythema, Tonsillar Exudate, Tonsillar Erythema, Nasal Congestion, Rhinorrhea, Sinus Tenderness, Orbits, Hearing Decreased, Hearing Grossly Normal, TM Bulging , TM Dull, TM Erythema, Lesions, [place], Excessive drooling, Thrush, Other Neck: positive: Supple Respiratory/Chest: positive: Respiratory Distress, Rhonchi Cardiovascular: positive: Regular Rate, S1, S2, Tachycardia Gastrointestinal/Abdominal: positive: Flat, Soft Musculoskeletal: positive: Normal Inspection. negative: CVA Tenderness Extremity: positive: Other (p[t has contracted thin extremities) <Caitlin Jerry - Last Filed: 05/21/19 07:19> - Vital Signs Last Vital Signs Temp Pulse Resp BP Pulse Ox 99.2 F 101 H 22 H 149/85 99 05/21/19 09:35 05/21/19 09:35 05/21/19 09:35 05/21/19 09:35 05/21/19 09:35 <Greg Rodriguez - Last Filed: 05/21/19 10:24> ED Treatment Course - LABORATORY CBC & Chemistry Diagram: 05/21/19 05:00 05/21/19 05:00 <Caitlin Jerry - Last Filed: 05/21/19 07:19> - LABORATORY CBC & Chemistry Diagram: 05/21/19 05:00 05/21/19 05:00 - ADDITIONAL ORDERS Additional order review: Laboratory Results 05/21/19 05/21/19 05/21/19 08:00 05:00 05:00 WBC RBC Hgb Hct MCV MCH MCHC RDW Plt Count MPV Absolute Neuts (auto) Neutrophils % Lymphocytes % Monocytes % Eosinophils % Basophils % Nucleated RBC % PT with INR 15.40 H INR 1.30 H PTT (Actin FS) Sodium Potassium Chloride Carbon Dioxide Anion Gap BUN Creatinine Est GFR (CKD-EPI)AfAm Est GFR (CKD-EPI)NonAf Random Glucose Lactic Acid 2.1 H Calcium Total Bilirubin AST ALT Alkaline Phosphatase Troponin I Total Protein Albumin Urine Color Yellow Urine Appearance Clear Urine pH 8.5 H Ur Specific [place] 1.009 L Urine Protein Negative Urine Glucose (UA) Negative Urine Ketones Negative Urine Blood Negative Urine Nitrite Negative Urine Bilirubin Negative Urine Urobilinogen 0.2 Ur Leukocyte Esterase Negative 05/21/19 05/21/19 05/21/19 05:00 05:00 05:00 WBC 12.2 H RBC 4.95 Hgb 14.6 Hct 42.9 D MCV 86.6 MCH 29.6 MCHC 34.2 RDW 14.8 Plt Count 352 D MPV 7.4 L D Absolute Neuts (auto) 7.1 Neutrophils % 57.7 D Lymphocytes % 31.7 D Monocytes % 9.5 Eosinophils % 0.7 D Basophils % 0.4 Nucleated RBC % 0 PT with INR INR PTT (Actin FS) 48.5 H Sodium 131 L Potassium 3.7 Chloride 94 L Carbon Dioxide 27 Anion Gap 10 BUN 8.3 Creatinine 0.6 Est GFR (CKD-EPI)AfAm 159.70 Est GFR (CKD-EPI)NonAf 137.79 Random Glucose 119 H Lactic Acid Calcium 9.4 Total Bilirubin 0.3 AST 16 ALT 34 Alkaline Phosphatase 115 Troponin I Total Protein 8.5 H Albumin 3.7 Urine Color Urine Appearance Urine pH Ur Specific [place] Urine Protein Urine Glucose (UA) Urine Ketones Urine Blood Urine Nitrite Urine Bilirubin Urine Urobilinogen Ur Leukocyte Esterase 05/21/19 05:00 WBC RBC Hgb Hct MCV MCH MCHC RDW Plt Count MPV Absolute Neuts (auto) Neutrophils % Lymphocytes % Monocytes % Eosinophils % Basophils % Nucleated RBC % PT with INR INR PTT (Actin FS) Sodium Potassium Chloride Carbon Dioxide Anion Gap BUN Creatinine Est GFR (CKD-EPI)AfAm Est GFR (CKD-EPI)NonAf Random Glucose Lactic Acid Calcium Total Bilirubin AST ALT Alkaline Phosphatase Troponin I < 0.02 Total Protein Albumin Urine Color Urine Appearance Urine pH Ur Specific [place] Urine Protein Urine Glucose (UA) Urine Ketones Urine Blood Urine Nitrite Urine Bilirubin Urine Urobilinogen Ur Leukocyte Esterase 05/21/19 05:00 RBC 4.95 MCV 86.6 MCHC 34.2 RDW 14.8 MPV 7.4 L D Neutrophils % 57.7 D Lymphocytes % 31.7 D Monocytes % 9.5 Eosinophils % 0.7 D Basophils % 0.4 - Medications Given in the ED: ED Medications Discontinued Medications Generic Name Dose Route Start Last Admin Trade Name Freq PRN Reason Stop Dose Admin Acetaminophen 650 mg 05/21/19 07:11 05/21/19 07:20 Tylenol Suppository - [place] 05/21/19 07:12 650 mg ONCE ONE Administration Clindamycin Phosphate 600 mg in 50 mls @ 100 mls/hr 05/21/19 04:22 05/21/19 08:45 Cleocin 600 Mg Premix Ivpb - IVPB 05/21/19 04:51 Not Given ONCE ONE Ceftriaxone Sodium 1 gm/ 100 mls @ 200 mls/hr 05/21/19 04:23 05/21/19 08:46 Dextrose IVPB 05/21/19 04:52 Not Given ONCE ONE Sodium Chloride 1,000 mls @ 1,000 mls/hr 05/21/19 08:10 05/21/19 08:15 Normal Saline - IV 05/21/19 09:09 1,000 mls/hr ASDIR STA Administration Piperacillin Sod/Tazobactam 50 mls @ 100 mls/hr 05/21/19 08:12 05/21/19 08:15 Sod 3.375 gm/ Dextrose IVPB 05/21/19 08:41 100 mls/hr ONCE ONE Administration Protocol Vancomycin HCl 1,000 mg 05/21/19 08:12 05/21/19 08:45 Vancomycin (Pre-Docked) IVPB 05/21/19 08:13 1,000 mg ONCE ONE Administration Protocol <Greg Rodriguez - Last Filed: 05/21/19 10:24> Medical Decision Making - Medical Decision Making 05/21/19 07:21 Pt is septic and he will require labs and admission <Caitlin Jerry - Last Filed: 05/21/19 07:19> *DC/Admit/Observation/Transfer <Caitlin Jerry - Last Filed: 05/21/19 07:19> - Discharge Dispostion Decision to Admit order: Yes <Greg Rodriguez - Last Filed: 05/21/19 10:24> Diagnosis at time of Disposition: Sepsis, Pneumonia
[2019-05-21] MEDS ORDERED: CLINDAMYCIN 600MG PREMIX IVPB 600 MG/50 ML BAG IVPB ONE ×2 (04:22→08:10)
[2019-05-21] MEDS ORDERED: CEFTRIAXONE 1 GM in DEXTROSE 5%-WATER - 100 ML IVPB ONE (04:23)
[2019-05-21 05:27] LABS: BASO % 0.4 % (0-2.0); EOS % 0.7 % (0-4.5); HEMATOCRIT 42.9 % (35.4-49); HEMOGLOBIN 14.6 GM/dL (11.7-16.9); LYMPH % 31.7 % (8-40); MCH 29.6 pg (25.7-33.7); MCHC 34.2 g/dl (32.0-35.9); MEAN CELL VOLUME 86.6 fl (80-96); MEAN PLT VOLUME 7.4 fl (7.5-11.1); MONO % 9.5 % (3.8-10.2); NEUT % 57.7 % (42.8-82.8); PLATELET COUNT 352 K/MM3 (134-434); RBC 4.95 M/mm3 (4.00-5.60); RDW 14.8 % (11.9-15.9); WHITE BLOOD COUNT 12.2 K/mm3 (4.0-10.0)
[2019-05-21 05:38] LABS: INR 1.3 (0.83-1.09); PROTHROMBIN TIME (PATIENT) 15.4 SEC (9.7-13.0)
[2019-05-21 05:48] LABS: ALBUMIN 3.7 g/dl (3.4-5.0); BILIRUBIN,TOTAL 0.3 mg/dL (0.2-1); BLOOD UREA NITROGEN 8.3 mg/dL (7-18); CALCIUM 9.4 mg/dL (8.5-10.1); CREATININE 0.6 mg/dL (0.55-1.3); POTASSIUM 3.7 mmol/L (3.5-5.1); TOT PROT 8.5 g/dl (6.4-8.2)
[2019-05-21] MEDS ORDERED: ACETAMINOPHEN 650 MG SUPP.RECT PR ONE (07:11)
[2019-05-21] MEDS ORDERED: ACETAMINOPHEN 650 MG SUPP.RECT ONE (07:14)
[2019-05-21] MEDS ORDERED: CEFTRIAXONE 1 GM/50 ML BAG ONE (08:10)
[2019-05-21] MEDS ORDERED: SODIUM CHLORIDE 1,000 ML IV STA (08:10)
[2019-05-21] MEDS ORDERED: VANCOMYCIN 1 GM in D5W (PRE-DOCKED) 1,000 MG/250 ML IVPB ONE (08:12)
[2019-05-21] MEDS ORDERED: PIPERACILLIN/TAZOB 3.375 GM 3.375 GM in DEXTROSE 5%-WATER - 50 ML IVPB ONE (08:12)
[2019-05-21] MEDS ORDERED: VANCOMYCIN 1 GRAM (PRE-DOCKED) 1,000 MG/250 ML BAG IVPB ONE (08:21)
[2019-05-21] MEDS ORDERED: PIPERACILLIN/TAZOB 3.375 GM 3.375 GM/50 ML BAG IVPB ONE (08:21)
[2019-05-21 08:55] LABS: PH,URINE 8.5 (5.0-8.0); URINE APPEARANCE CLEAR; URINE BILIRUBIN NEGATIVE (NEGATIVE); URINE COLOR YELLOW; URINE GLUCOSE (UA) NEGATIVE (NEGATIVE); URINE KETONE NEGATIVE (NEGATIVE); URINE LEUK ESTERASE NEGATIVE (NEGATIVE); URINE NITRITE NEGATIVE (NEGATIVE); URINE PROTEIN NEGATIVE (NEGATIVE); URINE UROBILINOGEN 0.2 mg/dL (0.2-1.0)
--- NOTE | 2019-05-21 12:39 | HP ---
CHIEF COMPLAINT: Nonverbal; PCP: HISTORY OF PRESENT ILLNESS: Seen and examined; no ER documentation available regarding HPI; discussed with provider who took over in AM and in essence pateint who is well-known to our service from multiple prior admissions presents with sepsis. Slightly increased O2 needs, but no minh findings on pneumonia. Limited examination due to his underlying medical comorbidities. Considering other causes of fever, he has had DVT in the past but is on eliquis. He has no meningeal signs, no diarrhea. He doesn't appear uncomfortable. Pending nursing assistance in turning patient. He was brought to med surg and found to have an increased Lactic Acid and worsening tachycardia. Will bolus, recheck vitals, and decide dispo. Noted to be hyponatremic, as well as hypochloremic. Has pending urine and serum osm and urine Na. Could not accurately obtain ROS due to his severe underlying clinical issues. Recent Travel: None PAST MEDICAL HISTORY: Spastic quadriparesis, microcephaly, intractable seizures , cortical blindness, asthma, scoliosis s/p repair (07/2006), dysphagia, hyponatremia, s/p G-tube, DVT on eliquis, chronic microaspiration secondary to dysphagia. PAST SURGICAL HISTORY: G tube insertion, scoliosis repair. Social History: Resident of [facility] with profound developmental disability; functionally quadraplegic with total assist required and no concerns of EtOH, tobacco, or drug abuse. Allergies Beef Containing Products Allergy (Unknown, Verified 05/21/19 02:30) erythromycin base Allergy (Verified 05/21/19 02:30) phenobarbital Allergy (Verified 05/21/19 02:30) venom-honey bee [bee venom (honey bee)] Allergy (Verified 05/21/19 02:30) HOME MEDICATIONS: Home Medications Medication Instructions Recorded Carbamazepine [Tegretol -] 280 mg GT BID 03/17/18 Cholecalciferol (Vitamin D3) 2,000 unit GT DAILY 03/17/18 [Vitamin D3] Omeprazole Magnesium [Prilosec] 20 mg GT DAILY 03/17/18 clonazePAM [KlonoPIN -] 1 mg GT TID 03/17/18 Budesonide [Pulmicort 0.5 mg 1 neb NEB BID 07/12/18 Nebulizer -] Diazepam [Diastat Acudial] 20 mg RC PRN PRN 07/12/18 Ipratropium/Albuterol Sulfate 3 ml IH QID PRN 07/12/18 [Iprat-Albut 0.5-3(2.5) mg/3 ml] levETIRAcetam [Keppra Oral 1,500 mg GT BID cup 10/06/18 Solution -] Baclofen 20 mg GT ASDIR 03/08/19 Acetaminophen Oral Solution 480 mg PO Q6H 05/14/19 [Tylenol 160mg/5mL Oral Solution -] Apixaban [Eliquis] 5 mg GT BID 05/14/19 Aspirin [ASA -] 81 mg GT DAILY 05/21/19 Tamsulosin HCl [Flomax] 0.4 mg GT DAILY 05/21/19 PHYSICAL EXAMINATION Vital Signs - 24 hr 05/21/19 05/21/19 05/21/19 02:30 02:39 03:00 Temperature 102.6 F H Pulse Rate 105 H Pulse Rate [ Apical] Respiratory 16 Rate Blood Pressure 107/80 Blood Pressure [Left Calf] O2 Sat by Pulse 89 L 96 Oximetry (%) 05/21/19 05/21/19 05/21/19 07:30 08:39 09:35 Temperature 99.2 F Pulse Rate 128 H Pulse Rate [ 112 H 101 H Apical] Respiratory 20 22 H Rate Blood Pressure Blood Pressure 136/82 149/85 [Left Calf] O2 Sat by Pulse 99 100 99 Oximetry (%) 05/21/19 05/21/19 09:58 12:01 Temperature 99.2 F 100 F H Pulse Rate Pulse Rate [ 103 H 120 H Apical] Respiratory 20 24 H Rate Blood Pressure Blood Pressure 145/85 150/87 [Left Calf] O2 Sat by Pulse 100 95 Oximetry (%) Laboratory Results - last 24 hr 05/21/19 05/21/19 05/21/19 05:00 05:00 05:00 WBC 12.2 H RBC 4.95 Hgb 14.6 Hct 42.9 D MCV 86.6 MCH 29.6 MCHC 34.2 RDW 14.8 Plt Count 352 D MPV 7.4 L D Absolute Neuts (auto) 7.1 Neutrophils % 57.7 D Lymphocytes % 31.7 D Monocytes % 9.5 Eosinophils % 0.7 D Basophils % 0.4 Nucleated RBC % 0 PT with INR INR PTT (Actin FS) 48.5 H Sodium Potassium Chloride Carbon Dioxide Anion Gap BUN Creatinine Est GFR (CKD-EPI)AfAm Est GFR (CKD-EPI)NonAf Random Glucose Lactic Acid Calcium Total Bilirubin AST ALT Alkaline Phosphatase Troponin I < 0.02 Total Protein Albumin Urine Color Urine Appearance Urine pH Ur Specific [place] Urine Protein Urine Glucose (UA) Urine Ketones Urine Blood Urine Nitrite Urine Bilirubin Urine Urobilinogen Ur Leukocyte Esterase 05/21/19 05/21/19 05/21/19 05:00 05:00 05:00 WBC RBC Hgb Hct MCV MCH MCHC RDW Plt Count MPV Absolute Neuts (auto) Neutrophils % Lymphocytes % Monocytes % Eosinophils % Basophils % Nucleated RBC % PT with INR 15.40 H INR 1.30 H PTT (Actin FS) Sodium 131 L Potassium 3.7 Chloride 94 L Carbon Dioxide 27 Anion Gap 10 BUN 8.3 Creatinine 0.6 Est GFR (CKD-EPI)AfAm 159.70 Est GFR (CKD-EPI)NonAf 137.79 Random Glucose 119 H Lactic Acid 2.1 H Calcium 9.4 Total Bilirubin 0.3 AST 16 ALT 34 Alkaline Phosphatase 115 Troponin I Total Protein 8.5 H Albumin 3.7 Urine Color Urine Appearance Urine pH Ur Specific [place] Urine Protein Urine Glucose (UA) Urine Ketones Urine Blood Urine Nitrite Urine Bilirubin Urine Urobilinogen Ur Leukocyte Esterase 05/21/19 05/21/19 08:00 10:03 WBC RBC Hgb Hct MCV MCH MCHC RDW Plt Count MPV Absolute Neuts (auto) Neutrophils % Lymphocytes % Monocytes % Eosinophils % Basophils % Nucleated RBC % PT with INR INR PTT (Actin FS) Sodium Potassium Chloride Carbon Dioxide Anion Gap BUN Creatinine Est GFR (CKD-EPI)AfAm Est GFR (CKD-EPI)NonAf Random Glucose Lactic Acid 3.0 H* Calcium Total Bilirubin AST ALT Alkaline Phosphatase Troponin I Total Protein Albumin Urine Color Yellow Urine Appearance Clear Urine pH 8.5 H Ur Specific [place] 1.009 L Urine Protein Negative Urine Glucose (UA) Negative Urine Ketones Negative Urine Blood Negative Urine Nitrite Negative Urine Bilirubin Negative Urine Urobilinogen 0.2 Ur Leukocyte Esterase Negative CXR reviewed Echo reviewed Prior imaging reviewed New imaging pending Microbiology reviewed; recalling suspected polymicrobial bacteremia likely ASSESSMENT/PLAN: In summation, he is a 28 y/o p/w sepsis of unknown etiology (CXR clear with CT and cultures pending) with PMHx as indicated. He is at high risk for decompensation, and as expected he continues to bounce back to the hospital with recurring infective processes. 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 Consulting nephrology for recurring hypoNa and checking osms and urine Na. Continue seizure meds and undertake seizure precautions. Full code Visit type - Emergency Visit Emergency Visit: Yes ED Registration Date: 05/21/19 Care time: The patient presented to the Emergency Department on the above date and was hospitalized for further evaluation of their emergent condition. - New Patient This patient is new to me today: Yes Date on this admission: 05/21/19 - Critical Care Critical Care patient: No
[2019-05-21] MEDS ORDERED: ALBUTEROL SO4 2.5/IPRATROPIUM 0.5 INH SOL 3 ML VIAL.NEB. NEB PRN (12:46)
[2019-05-21] MEDS ORDERED: BUDESONIDE 0.5 MG/2 ML INH SUSP VIAL NEB SCH (13:00)
[2019-05-21] MEDS ORDERED: TAMSULOSIN HCL 0.4 MG CAP PO SCH (13:00)
[2019-05-21] MEDS ORDERED: SODIUM CHLORIDE 0.9% 1000 ML INFUS.BAG IV ONE (13:30)
[2019-05-21] MEDS: LACTATED RINGERS SOLUTION 1,000 ML/1,000 ML INFUS.BAG IV SCH ×2 (13:41→16:06)
[2019-05-21] MEDS: RANITIDINE HCL 150 MG/10 ML UNIT-DOSE GT SCH ×2 (13:41→21:56)
[2019-05-21] MEDS: levETIRAcetam 500 MG/5 ML ORAL SOLUTION (UNIT-DOSE CUPS) GT SCH ×2 (13:42→21:54)
[2019-05-21] MEDS: ASPIRIN 81 MG CHEWABLE TABLETS GT SCH (13:42)
[2019-05-21] MEDS: clonazePAM 0.5 MG TABLET GT SCH ×2 (13:44→21:59)
--- NOTE | 2019-05-21 13:46 | PN ---
Progress Note (short form) - Note Progress Note: ID consult dictated imp/reccd recurrent fever 28 yo man developmentally disabled admitted 05/14 to 05/17 with fever- resolved immediately jennings ct chest/abd/pelvis negative admission blood culture one set with kelbsiella and 2 different coagn neg staph he was switched to levaquin by GT now admitted with fever 102.9 source not clear agree with cultures, ct scans vancomycin and zosyn will follow with you d/w hospitalist Problem List - Problems (1) Fever Code(s): R50.9 - FEVER, UNSPECIFIED (2) Profound developmental delay Code(s): R62.50 - UNSP LACK OF EXPECTED NORMAL PHYSIOL DEV IN CHILDHOOD
[2019-05-21] MEDS: APIXABAN 5 MG TABLET PO SCH ×2 (14:06→21:58)
[2019-05-21 14:20] LABS: MAGNESIUM 2.3 mg/dL (1.8-2.4); N-TERMINAL BNP 178.1 pg/ml (5-125)
[2019-05-21 15:27] LABS: ARTERIAL BLD GAS O2 SATURATION 98.6 % (95-98); ARTERIAL BLOOD GAS BASE EXCESS -0.4 meq/l (-2-2); ARTERIAL BLOOD GAS PCO2 36.6 mmHg (35-45); ARTERIAL BLOOD GAS PO2 121 mmHg (80-100); ARTERIAL BLOOD GAS pH 7.42 (7.35-7.45)
[2019-05-21 15:29] LABS: ALLENS TEST POSITIVE
[2019-05-21] MEDS: carBAMazepine 100 MG/5 ML UNIT-DOSE CUP GT SCH ×2 (16:06→22:00)
[2019-05-21] MEDS ORDERED: DEXTROSE 5%-WATER - 50 ML IVPB ONE (16:41)
[2019-05-21] MEDS ORDERED: PIPERACILLIN/TAZOBACTAM 3.375 GM VIAL IVPB ONE (16:41)
--- NOTE | 2019-05-21 16:58 | CONS ---
INFECTIOUS DISEASE CONSULTATION DATE OF CONSULTATION: DATE OF DICTATION: 05/21/2019 HISTORY: This is a developmentally disabled young man. He is 28. He was admitted from the [facility] with fever of 102.6. He was recently in the hospital from the to the . During that admission, he was sent with hypoxia, low-grade fever, and wheezing. He was treated with vancomycin and Zosyn. One set of blood cultures grew Klebsiella pneumoniae in 1 bottle and 2 different coagulase-negative staphylococcus, which were felt to be contaminant. Repeat blood cultures were negative. He had CAT scans of his chest, abdomen, and pelvis that were unremarkable. He was discharged to complete a week of Levaquin. He is now readmitted with fever at the correction as high as 102.6 in the ER. He is unable to contribute to the history. PAST MEDICAL HISTORY: Notable for profound mental retardation, cerebral palsy with spastic quadriparesis, severe developmental delay, microcephaly, intractable seizures, cortical blindness, asthma, left hip osteotomy, scoliosis, Jasmni fundoplication surgery with G-tube insertion, scoliosis repair with Kong rods. He has a history of constipation and vitamin D deficiency. He also has a history of recurrent aspiration pneumonia. MEDICATIONS: At the correction include Keppra, Klonopin, Flomax, Prilosec, albuterol, ipratropium nebulizer, diazepam, vitamin D, Tegretol, Pulmicort nebulizer, baclofen, aspirin, Eliquis. He was recently started on the Levaquin at discharge. SOCIAL HISTORY: Not available. There is no history of any substance use or cigarette smoking, of course. REVIEW OF SYSTEMS: As well, not available. PHYSICAL EXAMINATION: General: He is resting comfortably in no distress. Vital Signs: Current temperature is 100, pulse is 120, blood pressure 150/87, respiratory rate is 24. He is saturating 95% on 3 L. HEENT: He is microcephalic. His eyes are anicteric. Lungs: Clear to auscultation. Heart: Tachycardic. Abdomen: Soft, nontender. He has a G-tube. Extremities: Without edema. Skin: He has no skin breakdown. White count is 12.2, hemoglobin 14.6, platelets are 352. His lactic acid is 1.4. It was as high as 3. His chemistries are notable for a sodium of 131, BUN 8, creatinine 0.6 with normal LFTs. He had a urinalysis that was sent and was negative, and chest x-ray is negative. Blood cultures and urine cultures are pending. In summary, this is a 28-year-old man who was just discharged who is now readmitted with fever of unclear etiology. Would agree with cultures and CT scan, vancomycin and Zosyn. Further recommendations to follow. Case was discussed with the hospitalist. FLORINA FLETCHER M.D. [id number]
[2019-05-21] MEDS: ACETAMINOPHEN 650 MG/20.3 ML ORAL SOLUTION (CUPS) PO SCH ×2 (17:21→23:22)
[2019-05-21] MEDS: BACLOFEN 10 MG TABLET (FP) GT SCH ×2 (17:22→23:22)
[2019-05-21] MEDS: PIPERACILLIN/TAZOB 3.375 GM 3.375 GM in DEXTROSE 5%-WATER - 50 ML IVPB SCH (17:22)
[2019-05-21] MEDS ORDERED: PIPERACILLIN/TAZOB 3.375 GM 3.375 GM in DEXTROSE 5%-WATER - 50 ML IVPB SCH (18:00)
--- NOTE | 2019-05-21 18:00 | CONSULT ---
Consult Consult Specialty:: Nephrology Reason for Consultation:: hyponatremia - History of Present Illness Chief Complaint: sent in for fever History of Present Illness: Pt is a 28 year old male with pmhx of developmental delay, cerebral palsy, seizures, scoliosis and asthma who was sent in with fever. He was found to have hyponatremia and rhabdo. I was called to evaluate him. He is not verbal and unable to give history. I reviewed the chart and spoke to his health aid from the [facility]. Pt is being worked up for source of fever. - History Source History Provided By: Medical Record - Past Medical History STOCK RAISER: Yes: Seizure, Other (CP/MR) Pulmonary: Yes: Asthma Musculoskeletal: Yes: Other (scoliosis) - Alcohol/Substance Use Hx Alcohol Use: No History of Substance Use: reports: None - Smoking History Smoking history: Unknown if ever smoked Have you smoked in the past 12 months: No Aproximately how many cigarettes per day: 0 - Social History Usual Living Arrangement: Long Term ADL: Support Services History of Recent Travel: No Home Medications - Allergies Allergies/Adverse Reactions: Allergies Allergy/AdvReac Type Severity Reaction Status Date / Time Beef Containing Products Allergy Unknown Verified 05/21/19 02:30 erythromycin base Allergy Verified 05/21/19 02:30 phenobarbital Allergy Verified 05/21/19 02:30 venom-honey bee Allergy Verified 05/21/19 02:30 [bee venom (honey bee)] - Home Medications Home Medications: Ambulatory Orders Carbamazepine [Tegretol -] 280 mg GT BID 03/17/18 Cholecalciferol (Vitamin D3) [Vitamin D3] 2,000 unit GT DAILY 03/17/18 Omeprazole Magnesium [Prilosec] 20 mg GT DAILY 03/17/18 clonazePAM [KlonoPIN -] 1 mg GT TID 03/17/18 Budesonide [Pulmicort 0.5 mg Nebulizer -] 1 neb NEB BID 07/12/18 Diazepam [Diastat Acudial] 20 mg RC PRN PRN 07/12/18 Ipratropium/Albuterol Sulfate [Iprat-Albut 0.5-3(2.5) mg/3 ml] 3 ml IH QID PRN 07/12/18 levETIRAcetam [Keppra Oral Solution -] 1,500 mg GT BID cup 10/06/18 Baclofen 20 mg GT ASDIR 03/08/19 Acetaminophen Oral Solution [Tylenol 160mg/5mL Oral Solution -] 480 mg PO Q6H Apixaban [Eliquis] 5 mg GT BID 05/14/19 Aspirin [ASA -] 81 mg GT DAILY 05/21/19 Tamsulosin HCl [Flomax] 0.4 mg GT DAILY 05/21/19 Family Medical History Family History: Unable to Obtain Review of Systems Unable to obtain ROS, reason: pt not verbal Physical Exam Vital Signs: Vital Signs Temperature 98 F 05/21/19 17:42 Pulse Rate 76 05/21/19 17:42 Respiratory Rate 20 05/21/19 14:00 Blood Pressure 101/55 L 05/21/19 14:00 O2 Sat by Pulse Oximetry (%) 99 05/21/19 13:00 Constitutional: Yes: Calm Cardiovascular: Yes: S1, S2 Respiratory: Yes: On Nasal O2 Gastrointestinal: Yes: Soft, Other (peg) Renal/: Yes: Incontinence Musculoskeletal: Yes: Muscle Weakness Edema: No Neurological: Yes: Lethargy, Pre-Existing Deficit Labs: CBC, BMP 05/21/19 05:00 05/21/19 05:00 Laboratory Tests 05/14/19 05/17/19 05/21/19 09:15 06:45 05:00 WBC 12.2 H Sodium 139 Potassium Creatinine 0.6 Lactic Acid Creatine Kinase 05/21/19 05/21/19 05/21/19 05:00 05:00 10:03 WBC Sodium 131 L Potassium 3.7 Creatinine 0.6 Lactic Acid 2.1 H 3.0 H* Creatine Kinase 05/21/19 05/21/19 13:14 13:14 WBC Sodium Potassium Creatinine Lactic Acid 1.4 Creatine Kinase 1487 H Imaging - Results Chest X-ray: Report Reviewed Problem List - Problems (1) Hyponatremia Code(s): E87.1 - HYPO-OSMOLALITY AND HYPONATREMIA (2) Rhabdomyolysis Code(s): M62.82 - RHABDOMYOLYSIS (3) Pneumonia Code(s): J18.9 - PNEUMONIA, UNSPECIFIED ORGANISM (4) Asthma Code(s): J45.909 - UNSPECIFIED ASTHMA, UNCOMPLICATED (5) Cerebral palsy Code(s): G80.9 - CEREBRAL PALSY, UNSPECIFIED Assessment/Plan Current Medications Generic Name Dose Route Start Last Admin Trade Name Freq PRN Reason Stop Dose Admin Acetaminophen 480 mg 05/21/19 18:00 05/21/19 17:21 Tylenol Oral Solution - PO 480 mg Q6HPO ALEKSANDR Administration Albuterol/Ipratropium 1 amp 05/21/19 12:46 Duoneb - NEB QID PRN WHEEZING Apixaban 5 mg 05/21/19 12:46 05/21/19 14:06 Eliquis - PO 5 mg BID ALEKSANDR Administration Aspirin 81 mg 05/21/19 13:00 05/21/19 13:42 Asa - GT 81 mg DAILY ALEKSANDR Administration Baclofen 20 mg 05/21/19 18:00 05/21/19 17:22 Lioresal - GT 20 mg 0000,1800 ALEKSANDR Administration Budesonide 1 amp 05/21/19 13:12 Pulmicort 0.5 Mg Nebulizer - NEB RBID ALEKSANDR Carbamazepine 280 mg 05/21/19 14:00 05/21/19 16:06 Carbamazepine GT 280 mg BID ALEKSANDR Administration Clonazepam 1 mg 05/21/19 14:00 05/21/19 13:44 Klonopin - GT 1 mg TID ALEKSANDR Administration Lactated Ringer's 1,000 ml in 1,000 mls @ 125 mls/hr 05/21/19 12:45 05/21/19 16:06 Lactated Ringers Solution IV 125 mls/hr ASDIR ALEKSANDR Administration Piperacillin Sod/Tazobactam 50 mls @ 100 mls/hr 05/21/19 18:00 05/21/19 17:22 Sod 3.375 gm/ Dextrose IVPB 100 mls/hr Q8H-IV ALEKSANDR Administration Protocol Levetiracetam 1,500 mg 05/21/19 13:00 05/21/19 13:42 Keppra Oral Solution - GT 1,500 mg BID ALEKSANDR Administration Ranitidine HCl 150 mg 05/21/19 13:00 05/21/19 13:41 Zantac Oral Solution - GT 150 mg BID ALEKSANDR Administration Vancomycin HCl 1,000 mg 05/22/19 10:00 Vancomycin (Pre-Docked) IVPB DAILY ALEKSANDR Protocol Vancomycin HCl 1,000 mg 05/22/19 09:00 Vancomycin (Pre-Docked) IVPB 05/22/19 09:01 ONCE ONE Impression 1. hyponatremia 2. rhabdo - mild 3. fever 4. cerebral palsy 5. developemental delay 6. epilepsy 7. scoliosis with repair 8. lactic acidosis Plan - change fluids to ns - repeat labs in am - if sodium is still low will order further workup - repeat cpk - follow cultures - workup for fever in progress
[2019-05-21] MEDS: SODIUM CHLORIDE 1,000 ML IV SCH (19:02)
[2019-05-21] MEDS: BUDESONIDE 0.5 MG/2 ML INH SUSP VIAL NEB SCH (19:57)
[2019-05-21] MEDS ORDERED: HEPARIN NA (PORCINE) 5,000 UNITS/ML 1ML VIAL SQ SCH (22:00)
[2019-05-22] MEDS ORDERED: PIPERACILLIN/TAZOBACTAM 3.375 GM VIAL IVPB ONE ×3 (01:42→17:33)
[2019-05-22] MEDS ORDERED: DEXTROSE 5%-WATER - 50 ML IVPB ONE ×3 (01:42→17:33)
[2019-05-22] MEDS: PIPERACILLIN/TAZOB 3.375 GM 3.375 GM in DEXTROSE 5%-WATER - 50 ML IVPB SCH ×3 (02:00→17:44)
[2019-05-22] MEDS: clonazePAM 0.5 MG TABLET GT SCH ×3 (05:42→22:08)
[2019-05-22] MEDS: ACETAMINOPHEN 650 MG/20.3 ML ORAL SOLUTION (CUPS) PO SCH ×2 (05:42→14:14)
[2019-05-22] MEDS: BUDESONIDE 0.5 MG/2 ML INH SUSP VIAL NEB SCH ×2 (07:38→20:26)
--- NOTE | 2019-05-22 08:18 | PN ---
Physical Exam: SUBJECTIVE: Patient seen and examined; remains noncommunicative due to underlying clinical disorder Still pending CT read Discussed with ID; continue abx. Pending micro Nephrology changed fluids to NS; trend CK and monitor Na. Couldn't reliably obtain ROS due to the patient's underlying clinical condition. OBJECTIVE: Vital Signs Period Temp Pulse Resp BP Sys/Don Pulse Ox Last 24 Hr 97.4 F-100 F 74-120 20-24 91-150/45-87 95-100 GENERAL: The patient is awake, alert, and fully oriented, in no acute distress. HEAD: Normal with no signs of trauma. EYES: PERRL, extraocular movements intact, sclera anicteric, conjunctiva clear. No ptosis. ENT: Ears normal, nares patent, oropharynx clear without exudates, moist mucous membranes. NECK: Trachea midline, full range of motion, supple. LUNGS: Breath sounds equal, clear to auscultation bilaterally, no wheezes, no crackles, no accessory muscle use. HEART: Regular rate and rhythm, S1, S2 without murmur, rub or gallop. ABDOMEN: Soft, nontender, nondistended, normoactive bowel sounds, no guarding, no rebound, no hepatosplenomegaly, no masses. EXTREMITIES: 2+ pulses, warm, well-perfused, no edema. NEUROLOGICAL: Cranial nerves II through XII grossly intact. Normal speech, gait not observed. PSYCH: Normal mood, normal affect. SKIN: Warm, dry, normal turgor, no rashes or lesions noted Laboratory Results - last 24 hr 05/21/19 05/21/19 05/21/19 08:00 10:03 13:14 ESR Anticoagulation Therapy Puncture Site ABG pH ABG pCO2 at Pt Temp ABG pO2 at Pt Temp ABG HCO3 ABG O2 Sat (Measured) ABG O2 Content ABG Base Excess Richy Test O2 Delivery Device Oxygen Flow Rate Vent Mode Vent Rate Mechanical Rate Pressure Support Vent Serum Osmolality Lactic Acid 3.0 H* 1.4 Magnesium Creatine Kinase Creatine Kinase Index CK-MB (CK-2) Troponin I C-Reactive Protein B-Natriuretic Peptide Urine Color Yellow Urine Appearance Clear Urine pH 8.5 H Ur Specific [place] 1.009 L Urine Protein Negative Urine Glucose (UA) Negative Urine Ketones Negative Urine Blood Negative Urine Nitrite Negative Urine Bilirubin Negative Urine Urobilinogen 0.2 Ur Leukocyte Esterase Negative Urine Osmolality Ur Random Sodium 05/21/19 05/21/19 05/21/19 13:14 13:14 13:14 ESR 28 H Anticoagulation Therapy Puncture Site ABG pH ABG pCO2 at Pt Temp ABG pO2 at Pt Temp ABG HCO3 ABG O2 Sat (Measured) ABG O2 Content ABG Base Excess Richy Test O2 Delivery Device Oxygen Flow Rate Vent Mode Vent Rate Mechanical Rate Pressure Support Vent Serum Osmolality Lactic Acid Magnesium 2.3 Creatine Kinase 1487 H Creatine Kinase Index 0.2 CK-MB (CK-2) 3.8 H Troponin I < 0.02 C-Reactive Protein 2.3 H B-Natriuretic Peptide 178.1 H Urine Color Urine Appearance Urine pH Ur Specific [place] Urine Protein Urine Glucose (UA) Urine Ketones Urine Blood Urine Nitrite Urine Bilirubin Urine Urobilinogen Ur Leukocyte Esterase Urine Osmolality Ur Random Sodium 05/21/19 05/21/19 05/21/19 13:14 15:10 20:40 ESR Anticoagulation Therapy No Result Required. Puncture Site Left radial ABG pH 7.42 ABG pCO2 at Pt Temp 36.6 ABG pO2 at Pt Temp 121 H ABG HCO3 23.2 ABG O2 Sat (Measured) 98.6 H ABG O2 Content 19.2 ABG Base Excess -0.4 Richy Test Positive O2 Delivery Device No Result Required. Oxygen Flow Rate 2l Vent Mode No Result Required. Vent Rate No Result Required. Mechanical Rate No Result Required. Pressure Support Vent No Result Required. Serum Osmolality 284 Lactic Acid Magnesium Creatine Kinase Creatine Kinase Index CK-MB (CK-2) Troponin I C-Reactive Protein B-Natriuretic Peptide Urine Color Urine Appearance Urine pH Ur Specific [place] Urine Protein Urine Glucose (UA) Urine Ketones Urine Blood Urine Nitrite Urine Bilirubin Urine Urobilinogen Ur Leukocyte Esterase Urine Osmolality Ur Random Sodium 27 L 05/21/19 20:40 ESR Anticoagulation Therapy Puncture Site ABG pH ABG pCO2 at Pt Temp ABG pO2 at Pt Temp ABG HCO3 ABG O2 Sat (Measured) ABG O2 Content ABG Base Excess Richy Test O2 Delivery Device Oxygen Flow Rate Vent Mode Vent Rate Mechanical Rate Pressure Support Vent Serum Osmolality Lactic Acid Magnesium Creatine Kinase Creatine Kinase Index CK-MB (CK-2) Troponin I C-Reactive Protein B-Natriuretic Peptide Urine Color Urine Appearance Urine pH Ur Specific [place] Urine Protein Urine Glucose (UA) Urine Ketones Urine Blood Urine Nitrite Urine Bilirubin Urine Urobilinogen Ur Leukocyte Esterase Urine Osmolality 166 L Ur Random Sodium Active Medications Generic Name Dose Route Start Last Admin Trade Name Freq PRN Reason Stop Dose Admin Acetaminophen 480 mg 05/21/19 18:00 05/22/19 05:42 Tylenol Oral Solution - PO 480 mg Q6HPO ALEKSANDR Administration Albuterol/Ipratropium 1 amp 05/21/19 12:46 Duoneb - NEB QID PRN WHEEZING Apixaban 5 mg 05/21/19 12:46 05/21/19 21:58 Eliquis - PO 5 mg BID ALEKSANDR Administration Aspirin 81 mg 05/21/19 13:00 05/21/19 13:42 Asa - GT 81 mg DAILY ALEKSANDR Administration Baclofen 20 mg 05/21/19 18:00 05/21/19 23:22 Lioresal - GT 20 mg 0000,1800 ALEKSANDR Administration Budesonide 1 amp 05/21/19 13:12 05/22/19 07:38 Pulmicort 0.5 Mg Nebulizer - NEB 1 amp RBID ALEKSANDR Administration Carbamazepine 280 mg 05/21/19 14:00 05/21/19 22:00 Carbamazepine GT 280 mg BID ALEKSANDR Administration Clonazepam 1 mg 05/21/19 14:00 05/22/19 05:42 Klonopin - GT 1 mg TID ALEKSANDR Administration Piperacillin Sod/Tazobactam 50 mls @ 100 mls/hr 05/21/19 18:00 05/22/19 02:00 Sod 3.375 gm/ Dextrose IVPB 100 mls/hr Q8H-IV ALEKSANDR Administration Protocol Sodium Chloride 1,000 mls @ 100 mls/hr 05/21/19 18:15 05/21/19 19:02 Normal Saline - IV 100 mls/hr ASDIR ALEKSANDR Administration Levetiracetam 1,500 mg 05/21/19 13:00 05/21/19 21:54 Keppra Oral Solution - GT 1,500 mg BID ALEKSANDR Administration Ranitidine HCl 150 mg 05/21/19 13:00 05/21/19 21:56 Zantac Oral Solution - GT 150 mg BID ALEKSANDR Administration Vancomycin HCl 1,000 mg 05/22/19 10:00 Vancomycin (Pre-Docked) IVPB DAILY ALEKSANDR Protocol Vancomycin HCl 1,000 mg 05/22/19 09:00 Vancomycin (Pre-Docked) IVPB 05/22/19 09:01 ONCE ONE ASSESSMENT/PLAN: In summation, he is a 28 y/o p/w sepsis of unknown etiology (CXR clear with CT and cultures pending) with PMHx as indicated. He is at high risk for decompensation, and as expected he continues to bounce back to the hospital with recurring infective processes. He presents with elevated CK, sepsis, and hyponatremia. Pending imaging for source identification and micro, trending CK and Na. Improving and no longer septic. Fluids changed to NS, continue to monitor on the floor with subspecialty consults. -Sepsis (pending CT read, pending micro. abx per ID) -Hyponatremia, recurring (Continue NS) -Elevated CK (On isotonic, monitor is and os and renal fucntion, nephrology following) -Hx recurring aspiration Pneumonia -HTN -Abnormal EKG -Cerebral palsy with spastic quadriparesis -Cortical blindness -HTN -Microcephaly -Seizure disorder -Scoliosis s/p repair -Dysphagia on PEG feeds -Popliteal DVT 02/2019 Code status unchanged Visit type - Emergency Visit Emergency Visit: No - New Patient This patient is new to me today: No - Critical Care Critical Care patient: No
[2019-05-22 08:26] LABS: ALBUMIN 2.8 g/dl (3.4-5.0); BILIRUBIN,TOTAL 0.3 mg/dL (0.2-1); BLOOD UREA NITROGEN 5.1 mg/dL (7-18); CALCIUM 8.2 mg/dL (8.5-10.1); CREATININE 0.3 mg/dL (0.55-1.3); PHOSPHOROUS 3.6 mg/dL (2.5-4.9); POTASSIUM 3.3 mmol/L (3.5-5.1); TOT PROT 6.2 g/dl (6.4-8.2)
[2019-05-22] MEDS ORDERED: VANCOMYCIN 1 GM in D5W (PRE-DOCKED) 1,000 MG/250 ML IVPB ONE (09:00)
[2019-05-22] MEDS ORDERED: VANCOMYCIN 1 GM in D5W (PRE-DOCKED) 1,000 MG/250 ML IVPB SCH (10:00)
[2019-05-22] MEDS ORDERED: PT OWN MED DRAWER 7, Y5N ONE ×3 (10:35→17:37)
[2019-05-22] MEDS: ASPIRIN 81 MG CHEWABLE TABLETS GT SCH (10:37)
[2019-05-22] MEDS: levETIRAcetam 500 MG/5 ML ORAL SOLUTION (UNIT-DOSE CUPS) GT SCH ×2 (10:41→22:09)
[2019-05-22] MEDS: RANITIDINE HCL 150 MG/10 ML UNIT-DOSE GT SCH ×2 (10:41→22:09)
[2019-05-22] MEDS: carBAMazepine 100 MG/5 ML UNIT-DOSE CUP GT SCH ×2 (10:41→21:52)
[2019-05-22] MEDS: APIXABAN 5 MG TABLET PO SCH (10:41)
--- NOTE | 2019-05-22 11:09 | PN ---
Progress Note (short form) - Note Progress Note: resting comfortably chest ct d/w pulmonary- dr vargas- he has secretions in his right mainstem bronchus - ?recurrent aspiration, ?bronchitis Vital Signs Period Temp Pulse Resp BP Sys/Don Pulse Ox Last 24 Hr 97.4 F-100 F 74-120 20-24 91-150/45-87 95-100 cor-rrr lungs decreased bs at bases abd soft,nt ext no edema CBC, BMP 05/21/19 05:00 05/22/19 07:40 Microbiology 05/21/19 08:00 Urine - Urine - Catheterized Urine Culture - Final NO GROWTH OBTAINED 05/21/19 04:30 Blood - Peripheral Venous Blood Culture - Preliminary NO GROWTH OBTAINED AFTER 24 HOURS, INCUBATION TO CONTINUE FOR 4 DAYS. 05/21/19 04:30 Blood - Peripheral Venous Blood Culture - Preliminary NO GROWTH OBTAINED AFTER 24 HOURS, INCUBATION TO CONTINUE FOR 4 DAYS. Active Medications Acetaminophen (Tylenol Oral Solution -) 480 mg PO Q6HPO [facility] Last Admin: 05/22/19 05:42 Dose: 480 mg Albuterol/Ipratropium (Duoneb -) 1 amp NEB QID PRN PRN Reason: WHEEZING Apixaban (Eliquis -) 5 mg PO BID [facility] Last Admin: 05/22/19 10:41 Dose: 5 mg Aspirin (Asa -) 81 mg GT DAILY [facility] Last Admin: 05/22/19 10:37 Dose: 81 mg Baclofen (Lioresal -) 20 mg GT 0000,1800 [facility] Last Admin: 05/21/19 23:22 Dose: 20 mg Budesonide (Pulmicort 0.5 Mg Nebulizer -) 1 amp NEB RBID ALEKSANDR Last Admin: 05/22/19 07:38 Dose: 1 amp Carbamazepine (Carbamazepine) 280 mg GT BID ALEKSANDR Last Admin: 05/22/19 10:41 Dose: 280 mg Clonazepam (Klonopin -) 1 mg GT TID ALEKSANDR Last Admin: 05/22/19 05:42 Dose: 1 mg Piperacillin Sod/Tazobactam (Sod 3.375 gm/ Dextrose) 50 mls @ 100 mls/hr IVPB Q8H-IV ALEKSANDR; Protocol Last Admin: 05/22/19 02:00 Dose: 100 mls/hr Sodium Chloride (Normal Saline -) 1,000 mls @ 100 mls/hr IV ASDIR ALEKSANDR Last Admin: 05/21/19 19:02 Dose: 100 mls/hr Levetiracetam (Keppra Oral Solution -) 1,500 mg GT BID [facility] Last Admin: 05/22/19 10:41 Dose: 1,500 mg Ranitidine HCl (Zantac Oral Solution -) 150 mg GT BID [facility] Last Admin: 05/22/19 10:41 Dose: 150 mg Vancomycin HCl (Vancomycin (Pre-Docked)) 1,000 mg IVPB DAILY [facility]; Protocol imp/reccd recurrent fever-suspected bronchitis/aspiration- note chest ct findings above 28 yo man developmentally disabled admitted 05/14 to 05/17 with fever- resolved immediately jennings ct chest/abd/pelvis negative admission blood culture one set with kelbsiella and 2 different coag neg staph repeat blood cultures are negative d/c vancomycin continue zosyn plmonary to add mucolytics and chest PT
--- NOTE | 2019-05-22 11:23 | CON.PULM ---
Consult Consult Specialty:: PULMONARY Referred by:: Dr Zuniga Reason for Consultation:: fever - History of Present Illness Chief Complaint: fever History of Present Illness: 28yo male with h/o cerebral palsy, mental retardation, seizure disorder, asthma , h/o DVT, recurrent aspiration who was admitted from [place] for fevers. Pt unable to provide further history at this time. Febrile to 102.3 on presentation. No infiltrates on imaging but with mucous plug in right mainstem bronchus. Started on antibiotics with improvement. 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, Other (CP/MR) Pulmonary: Yes: Asthma Musculoskeletal: Yes: Other (scoliosis) - Alcohol/Substance Use Hx Alcohol Use: No History of Substance Use: reports: None - Smoking History Smoking history: Unknown if ever smoked Have you smoked in the past 12 months: No Aproximately how many cigarettes per day: 0 - Social History Usual Living Arrangement: Long-Term ADL: Support Services History of Recent Travel: No Home Medications - Allergies Allergies/Adverse Reactions: Allergies Allergy/AdvReac Type Severity Reaction Status Date / Time Beef Containing Products Allergy Unknown Verified 05/21/19 02:30 erythromycin base Allergy Verified 05/21/19 02:30 phenobarbital Allergy Verified 05/21/19 02:30 venom-honey bee Allergy Verified 05/21/19 02:30 [bee venom (honey bee)] - Home Medications Home Medications: Ambulatory Orders Carbamazepine [Tegretol -] 280 mg GT BID 03/17/18 Cholecalciferol (Vitamin D3) [Vitamin D3] 2,000 unit GT DAILY 03/17/18 Omeprazole Magnesium [Prilosec] 20 mg GT DAILY 03/17/18 clonazePAM [KlonoPIN -] 1 mg GT TID 03/17/18 Budesonide [Pulmicort 0.5 mg Nebulizer -] 1 neb NEB BID 07/12/18 Diazepam [Diastat Acudial] 20 mg RC PRN PRN 07/12/18 Ipratropium/Albuterol Sulfate [Iprat-Albut 0.5-3(2.5) mg/3 ml] 3 ml IH QID PRN 07/12/18 levETIRAcetam [Keppra Oral Solution -] 1,500 mg GT BID cup 10/06/18 Baclofen 20 mg GT ASDIR 03/08/19 Acetaminophen Oral Solution [Tylenol 160mg/5mL Oral Solution -] 480 mg PO Q6H Apixaban [Eliquis] 5 mg GT BID 05/14/19 Aspirin [ASA -] 81 mg GT DAILY 05/21/19 Tamsulosin HCl [Flomax] 0.4 mg GT DAILY 05/21/19 Review of Systems Unable to obtain ROS, reason: pt nonverbal Physical Exam Vital Sings: Vital Signs Temperature 97.4 F L 05/22/19 06:33 Pulse Rate 82 05/22/19 06:33 Respiratory Rate 20 05/22/19 06:33 Blood Pressure 92/50 L 05/22/19 06:33 O2 Sat by Pulse Oximetry (%) 100 05/21/19 21:00 Constitutional: Yes: Calm Eyes: Yes: Conjunctiva Clear, EOM Intact HENT: Yes: Other (microcephaly) Neck: Yes: Supple, Trachea Midline Cardiovascular: Yes: Regular Rate and Rhythm Respiratory: Yes: Rhonchi (scattered) ...Clubbing: No Gastrointestinal: Yes: Normal Bowel Sounds, Soft. No: Tenderness Extremities: Yes: Other (contracted) Neurological: Yes: Alert Labs: CBC, BMP 05/21/19 05:00 05/22/19 07:40 ABG Results ABG pH 7.42 (7.35-7.45) 05/21/19 15:10 ABG pCO2 at Pt Temp 36.6 mmHg (35-45) 05/21/19 15:10 ABG pO2 at Pt Temp 121 mmHg (80-100) H 05/21/19 15:10 ABG HCO3 23.2 mmol/L (22-27) 05/21/19 15:10 ABG O2 Sat (Measured) 98.6 % (95-98) H 05/21/19 15:10 ABG O2 Content 19.2 % vol 05/21/19 15:10 ABG Base Excess -0.4 meq/l (-2-2) 05/21/19 15:10 Imaging - Results Chest X-ray: Report Reviewed, Image Reviewed Cat Scan: Report Reviewed, Image Reviewed (no infiltrates, right mainstem mucous plug) Assessment/Plan Fevers Mucous Plug/Likely Recurrent Aspiration Rhabdomyolysis Hyponatremia improving Asthma Cerebral Palsy Mental Retardation Seizure Disorder h/o DVT Functional Quadriplegia - continue antibiotics per ID - f/u pending cultures - inhaled bronchodilators - chest PT - aspiration precautions - IVF - monitor CPK - continue anticoagulation Thank you for this consult Luis Quintero MD
[2019-05-22] MEDS ORDERED: ALBUTEROL SO4 0.083% IH SOL 2.5 MG/3 ML VIAL.NEB. NEB PRN (11:24)
[2019-05-22] MEDS: ALBUTEROL SO4 2.5/IPRATROPIUM 0.5 INH SOL 3 ML VIAL.NEB. NEB SCH ×3 (12:17→20:27)
[2019-05-22] MEDS: ACETAMINOPHEN 650 MG/20.3 ML ORAL SOLUTION (CUPS) PEG SCH ×3 (14:22→23:35)
[2019-05-22] MEDS: SODIUM CHLORIDE 1,000 ML IV SCH (14:25)
[2019-05-22] MEDS ORDERED: POTASSIUM CHLORIDE ORAL LIQUID 20 MEQ/15 ML PEG ONE (15:45)
--- NOTE | 2019-05-22 15:45 | PN ---
Progress Note, Physician History of Present Illness: Pt seen and examined at bedside. No great change in status. - Current Medication List Current Medications: Active Medications Acetaminophen (Tylenol Oral Solution -) 480 mg PEG Q6HPO [facility] Last Admin: 05/22/19 14:22 Dose: 480 mg Albuterol Sulfate (Ventolin 0.083% Nebulizer Soln -) 1 amp NEB Q4H PRN PRN Reason: SHORT OF BREATH/WHEEZING Albuterol/Ipratropium (Duoneb -) 1 amp NEB RQID [facility] Last Admin: 05/22/19 15:30 Dose: 1 amp Apixaban (Eliquis -) 5 mg PEG BID [facility] Aspirin (Asa -) 81 mg GT DAILY [facility] Last Admin: 05/22/19 10:37 Dose: 81 mg Baclofen (Lioresal -) 20 mg GT 0000,1800 [facility] Last Admin: 05/21/19 23:22 Dose: 20 mg Budesonide (Pulmicort 0.5 Mg Nebulizer -) 1 amp NEB RBID [facility] Last Admin: 05/22/19 07:38 Dose: 1 amp Carbamazepine (Carbamazepine) 280 mg GT BID [facility] Last Admin: 05/22/19 10:41 Dose: 280 mg Clonazepam (Klonopin -) 1 mg GT TID [facility] Last Admin: 05/22/19 14:21 Dose: 1 mg Piperacillin Sod/Tazobactam (Sod 3.375 gm/ Dextrose) 50 mls @ 100 mls/hr IVPB Q8H-IV [facility]; Protocol Last Admin: 05/22/19 12:49 Dose: 100 mls/hr Sodium Chloride (Normal Saline -) 1,000 mls @ 100 mls/hr IV ASDIR [facility] Last Admin: 05/22/19 14:25 Dose: 100 mls/hr Levetiracetam (Keppra Oral Solution -) 1,500 mg GT BID [facility] Last Admin: 05/22/19 10:41 Dose: 1,500 mg Ranitidine HCl (Zantac Oral Solution -) 150 mg GT BID [facility] Last Admin: 05/22/19 10:41 Dose: 150 mg - Objective Vital Signs: Vital Signs Temperature 97.4 F L 05/22/19 06:33 Pulse Rate 82 05/22/19 06:33 Respiratory Rate 20 05/22/19 06:33 Blood Pressure 92/50 L 05/22/19 06:33 O2 Sat by Pulse Oximetry (%) 100 05/21/19 21:00 Constitutional: Yes: Calm Eyes: Yes: Conjunctiva Clear Cardiovascular: Yes: S1, S2 Respiratory: Yes: CTA Bilaterally Gastrointestinal: Yes: Soft, Other (peg) Genitourinary: Yes: Incontinence Musculoskeletal: Yes: Muscle Weakness Edema: No Neurological: Yes: Pre-Existing Deficit Labs: CBC, BMP 05/21/19 05:00 05/22/19 07:40 INR, PTT INR 1.30 (0.83-1.09) H 05/21/19 05:00 Problem List - Problems (1) Hyponatremia Code(s): E87.1 - HYPO-OSMOLALITY AND HYPONATREMIA (2) Rhabdomyolysis Code(s): M62.82 - RHABDOMYOLYSIS (3) Pneumonia Code(s): J18.9 - PNEUMONIA, UNSPECIFIED ORGANISM (4) Asthma Code(s): J45.909 - UNSPECIFIED ASTHMA, UNCOMPLICATED (5) Cerebral palsy Code(s): G80.9 - CEREBRAL PALSY, UNSPECIFIED Assessment/Plan Current Medications Generic Name Dose Route Start Last Admin Trade Name Freq PRN Reason Stop Dose Admin Acetaminophen 480 mg 05/22/19 14:00 05/22/19 14:22 Tylenol Oral Solution - PEG 480 mg Q6HPO [facility] Administration Albuterol Sulfate 1 amp 05/22/19 11:24 Ventolin 0.083% Nebulizer Soln - NEB Q4H PRN SHORT OF BREATH/WHEEZING Albuterol/Ipratropium 1 amp 05/22/19 12:00 05/22/19 15:30 Duoneb - NEB 1 amp RQID [facility] Administration Apixaban 5 mg 05/22/19 22:00 Eliquis - PEG BID [facility] Aspirin 81 mg 05/21/19 13:00 05/22/19 10:37 Asa - GT 81 mg DAILY [facility] Administration Baclofen 20 mg 05/21/19 18:00 05/21/19 23:22 Lioresal - GT 20 mg 0000,1800 [facility] Administration Budesonide 1 amp 05/21/19 13:12 05/22/19 07:38 Pulmicort 0.5 Mg Nebulizer - NEB 1 amp RBID [facility] Administration Carbamazepine 280 mg 05/21/19 14:00 05/22/19 10:41 Carbamazepine GT 280 mg BID [facility] Administration Clonazepam 1 mg 05/21/19 14:00 05/22/19 14:21 Klonopin - GT 1 mg TID [facility] Administration Piperacillin Sod/Tazobactam 50 mls @ 100 mls/hr 05/21/19 18:00 05/22/19 12:49 Sod 3.375 gm/ Dextrose IVPB 100 mls/hr Q8H-IV [facility] Administration Protocol Sodium Chloride 1,000 mls @ 100 mls/hr 05/21/19 18:15 05/22/19 14:25 Normal Saline - IV 100 mls/hr ASDIR [facility] Administration Levetiracetam 1,500 mg 05/21/19 13:00 05/22/19 10:41 Keppra Oral Solution - GT 1,500 mg BID [facility] Administration Ranitidine HCl 150 mg 05/21/19 13:00 05/22/19 10:41 Zantac Oral Solution - GT 150 mg BID [facility] Administration Impression 1. hyponatremia 2. rhabdo - mild 3. fever 4. cerebral palsy 5. developemental delay 6. epilepsy 7. scoliosis with repair 8. lactic acidosis Plan - replace potassium - cont fluids - monitor cpk - sodium is improved - follow cultures - workup for fever in progress
[2019-05-22] MEDS: LACTATED RINGERS SOLUTION 1,000 ML/1,000 ML INFUS.BAG IV SCH (17:42)
[2019-05-22] MEDS: BACLOFEN 10 MG TABLET (FP) GT SCH ×2 (17:44→23:40)
[2019-05-22] MEDS: APIXABAN 5 MG TABLET PEG SCH (22:08)
[2019-05-23] MEDS ORDERED: DEXTROSE 5%-WATER - 50 ML IVPB ONE ×3 (01:07→17:13)
[2019-05-23] MEDS ORDERED: PIPERACILLIN/TAZOBACTAM 3.375 GM VIAL IVPB ONE ×3 (01:07→17:13)
[2019-05-23] MEDS: PIPERACILLIN/TAZOB 3.375 GM 3.375 GM in DEXTROSE 5%-WATER - 50 ML IVPB SCH ×3 (01:23→17:40)
[2019-05-23] MEDS: ACETAMINOPHEN 650 MG/20.3 ML ORAL SOLUTION (CUPS) PEG SCH ×3 (05:47→17:39)
[2019-05-23] MEDS: clonazePAM 0.5 MG TABLET GT SCH ×3 (05:47→21:43)
[2019-05-23] MEDS: LACTATED RINGERS SOLUTION 1,000 ML/1,000 ML INFUS.BAG IV SCH ×3 (05:48→17:39)
[2019-05-23 07:46] LABS: HEMATOCRIT 35.5 % (35.4-49); HEMOGLOBIN 11.9 GM/dL (11.7-16.9); MCH 29.4 pg (25.7-33.7); MCHC 33.5 g/dl (32.0-35.9); MEAN CELL VOLUME 87.5 fl (80-96); MEAN PLT VOLUME 7.8 fl (7.5-11.1); PLATELET COUNT 260 K/MM3 (134-434); RBC 4.06 M/mm3 (4.00-5.60); RDW 14.6 % (11.9-15.9); WHITE BLOOD COUNT 12.1 K/mm3 (4.0-10.0)
[2019-05-23 08:00] LABS: BLOOD UREA NITROGEN 3.9 mg/dL (7-18); CALCIUM 8.3 mg/dL (8.5-10.1); CREATININE 0.4 mg/dL (0.55-1.3); POTASSIUM 3.5 mmol/L (3.5-5.1)
[2019-05-23] MEDS: ALBUTEROL SO4 2.5/IPRATROPIUM 0.5 INH SOL 3 ML VIAL.NEB. NEB SCH ×4 (08:24→20:00)
[2019-05-23] MEDS: BUDESONIDE 0.5 MG/2 ML INH SUSP VIAL NEB SCH ×2 (08:34→20:10)
--- NOTE | 2019-05-23 10:25 | PN ---
Progress Note (short form) - Note Progress Note: PULMONARY Pt nonverbal. No fevers recorded. Vital Signs Period Temp Pulse Resp BP Sys/Don Pulse Ox Last 24 Hr 97.7 F-99 F 48-121 20-22 98-119/44-64 97 Gen: NAD, nonverbal Heart: RRR Lung: scattered rhonchi Abd: soft, nontender Ext: no edema, contracted CBC, BMP 05/23/19 06:40 05/23/19 06:40 Active Medications Acetaminophen (Tylenol Oral Solution -) 480 mg PEG Q6HPO [facility] Last Admin: 05/23/19 05:47 Dose: 480 mg Albuterol Sulfate (Ventolin 0.083% Nebulizer Soln -) 1 amp NEB Q4H PRN PRN Reason: SHORT OF BREATH/WHEEZING Albuterol/Ipratropium (Duoneb -) 1 amp NEB RQID [facility] Last Admin: 05/23/19 08:24 Dose: 1 amp Apixaban (Eliquis -) 5 mg PEG BID [facility] Last Admin: 05/22/19 22:08 Dose: 5 mg Aspirin (Asa -) 81 mg GT DAILY [facility] Last Admin: 05/22/19 10:37 Dose: 81 mg Baclofen (Lioresal -) 20 mg GT 0000,1800 [facility] Last Admin: 05/22/19 23:40 Dose: 20 mg Budesonide (Pulmicort 0.5 Mg Nebulizer -) 1 amp NEB RBID [facility] Last Admin: 05/23/19 08:34 Dose: 1 amp Carbamazepine (Carbamazepine) 280 mg GT BID [facility] Last Admin: 05/22/19 21:52 Dose: 280 mg Clonazepam (Klonopin -) 1 mg GT TID [facility] Last Admin: 05/23/19 05:47 Dose: 1 mg Piperacillin Sod/Tazobactam (Sod 3.375 gm/ Dextrose) 50 mls @ 100 mls/hr IVPB Q8H-IV [facility]; Protocol Last Admin: 05/23/19 01:23 Dose: 100 mls/hr Lactated Ringer's (Lactated Ringers Solution) 1,000 ml in 1,000 mls @ 100 mls/ hr IV ASDIR [facility] Last Admin: 05/23/19 05:48 Dose: 100 mls/hr Levetiracetam (Keppra Oral Solution -) 1,500 mg GT BID [facility] Last Admin: 05/22/19 22:09 Dose: 1,500 mg Ranitidine HCl (Zantac Oral Solution -) 150 mg GT BID [facility] Last Admin: 05/22/19 22:09 Dose: 150 mg A/P Mucous Plug/Likely Recurrent Aspiration Rhabdomyolysis Hyponatremia improving Asthma Cerebral Palsy Mental Retardation Seizure Disorder h/o DVT Functional Quadriplegia - continue antibiotics per ID - f/u pending cultures - inhaled bronchodilators - chest PT - aspiration precautions - IVF - trend CPK - continue anticoagulation
[2019-05-23 10:36] LABS: ERYTHROCYTE SEDIMENTATION RATE 23 mm/hr (0-10)
[2019-05-23] MEDS ORDERED: PT OWN MED DRAWER 7, Y5N ONE (10:38)
[2019-05-23] MEDS: ASPIRIN 81 MG CHEWABLE TABLETS GT SCH (10:43)
[2019-05-23] MEDS: APIXABAN 5 MG TABLET PEG SCH ×2 (10:43→21:43)
[2019-05-23] MEDS: levETIRAcetam 500 MG/5 ML ORAL SOLUTION (UNIT-DOSE CUPS) GT SCH ×2 (10:43→21:51)
[2019-05-23] MEDS: carBAMazepine 100 MG/5 ML UNIT-DOSE CUP GT SCH ×2 (10:44→21:51)
[2019-05-23] MEDS: RANITIDINE HCL 150 MG/10 ML UNIT-DOSE GT SCH ×2 (11:03→21:43)
[2019-05-23] MEDS ORDERED: SODIUM CHLORIDE 1,000 ML IV STA (11:35)
--- NOTE | 2019-05-23 13:27 | PN ---
Progress Note, Physician History of Present Illness: Pt seen and examined at bedside. He appears comfortable. - Current Medication List Current Medications: Active Medications Acetaminophen (Tylenol Oral Solution -) 480 mg PEG Q6HPO [facility] Last Admin: 05/23/19 12:53 Dose: 480 mg Albuterol Sulfate (Ventolin 0.083% Nebulizer Soln -) 1 amp NEB Q4H PRN PRN Reason: SHORT OF BREATH/WHEEZING Albuterol/Ipratropium (Duoneb -) 1 amp NEB RQID [facility] Last Admin: 05/23/19 12:50 Dose: 1 amp Apixaban (Eliquis -) 5 mg PEG BID [facility] Last Admin: 05/23/19 10:43 Dose: 5 mg Aspirin (Asa -) 81 mg GT DAILY [facility] Last Admin: 05/23/19 10:43 Dose: 81 mg Baclofen (Lioresal -) 20 mg GT 0000,1800 [facility] Last Admin: 05/22/19 23:40 Dose: 20 mg Budesonide (Pulmicort 0.5 Mg Nebulizer -) 1 amp NEB RBID [facility] Last Admin: 05/23/19 08:34 Dose: 1 amp Carbamazepine (Carbamazepine) 280 mg GT BID [facility] Last Admin: 05/23/19 10:44 Dose: 280 mg Clonazepam (Klonopin -) 1 mg GT TID [facility] Last Admin: 05/23/19 05:47 Dose: 1 mg Piperacillin Sod/Tazobactam (Sod 3.375 gm/ Dextrose) 50 mls @ 100 mls/hr IVPB Q8H-IV [facility]; Protocol Last Admin: 05/23/19 10:43 Dose: 100 mls/hr Lactated Ringer's (Lactated Ringers Solution) 1,000 ml in 1,000 mls @ 100 mls/ hr IV ASDIR [facility] Last Admin: 05/23/19 05:48 Dose: 100 mls/hr Levetiracetam (Keppra Oral Solution -) 1,500 mg GT BID [facility] Last Admin: 05/23/19 10:43 Dose: 1,500 mg Ranitidine HCl (Zantac Oral Solution -) 150 mg GT BID [facility] Last Admin: 05/23/19 11:03 Dose: 150 mg - Objective Vital Signs: Vital Signs Temperature 100.5 F H 05/23/19 10:00 Pulse Rate 99 H 05/23/19 10:00 Respiratory Rate 18 05/23/19 10:00 Blood Pressure 107/62 05/23/19 10:00 O2 Sat by Pulse Oximetry (%) 97 05/22/19 21:00 Constitutional: Yes: Calm, Other (non verbal) Cardiovascular: Yes: S1, S2 Respiratory: Yes: CTA Bilaterally Gastrointestinal: Yes: Soft, Other (peg) Genitourinary: Yes: Incontinence Musculoskeletal: Yes: Muscle Weakness Edema: No Neurological: Yes: Pre-Existing Deficit Labs: CBC, BMP 05/23/19 06:40 05/23/19 06:40 INR, PTT INR 1.30 (0.83-1.09) H 05/21/19 05:00 Problem List - Problems (1) Hyponatremia Code(s): E87.1 - HYPO-OSMOLALITY AND HYPONATREMIA (2) Rhabdomyolysis Code(s): M62.82 - RHABDOMYOLYSIS (3) Pneumonia Code(s): J18.9 - PNEUMONIA, UNSPECIFIED ORGANISM (4) Asthma Code(s): J45.909 - UNSPECIFIED ASTHMA, UNCOMPLICATED (5) Cerebral palsy Code(s): G80.9 - CEREBRAL PALSY, UNSPECIFIED Assessment/Plan Current Medications Generic Name Dose Route Start Last Admin Trade Name Freq PRN Reason Stop Dose Admin Acetaminophen 480 mg 05/22/19 14:00 05/23/19 12:53 Tylenol Oral Solution - PEG 480 mg Q6HPO [facility] Administration Albuterol Sulfate 1 amp 05/22/19 11:24 Ventolin 0.083% Nebulizer Soln - NEB Q4H PRN SHORT OF BREATH/WHEEZING Albuterol/Ipratropium 1 amp 05/22/19 12:00 05/23/19 12:50 Duoneb - NEB 1 amp RQID [facility] Administration Apixaban 5 mg 05/22/19 22:00 05/23/19 10:43 Eliquis - PEG 5 mg BID [facility] Administration Aspirin 81 mg 05/21/19 13:00 05/23/19 10:43 Asa - GT 81 mg DAILY [facility] Administration Baclofen 20 mg 05/21/19 18:00 05/22/19 23:40 Lioresal - GT 20 mg 0000,1800 [facility] Administration Budesonide 1 amp 05/21/19 13:12 05/23/19 08:34 Pulmicort 0.5 Mg Nebulizer - NEB 1 amp RBID [facility] Administration Carbamazepine 280 mg 05/21/19 14:00 05/23/19 10:44 Carbamazepine GT 280 mg BID [facility] Administration Clonazepam 1 mg 05/21/19 14:00 05/23/19 05:47 Klonopin - GT 1 mg TID [facility] Administration Piperacillin Sod/Tazobactam 50 mls @ 100 mls/hr 05/21/19 18:00 05/23/19 10:43 Sod 3.375 gm/ Dextrose IVPB 100 mls/hr Q8H-IV [facility] Administration Protocol Lactated Ringer's 1,000 ml in 1,000 mls @ 100 mls/hr 05/22/19 16:00 05/23/19 05:48 Lactated Ringers Solution IV 100 mls/hr ASDIR [facility]AN[facility] Administration Levetiracetam 1,500 mg 05/21/19 13:00 05/23/19 10:43 Keppra Oral Solution - GT 1,500 mg BID [facility] Administration Ranitidine HCl 150 mg 05/21/19 13:00 05/23/19 11:03 Zantac Oral Solution - GT 150 mg BID [facility] Administration Impression 1. hyponatremia 2. rhabdo - mild 3. fever 4. cerebral palsy 5. developemental delay 6. epilepsy 7. scoliosis with repair 8. lactic acidosis Plan - monitor sodium - cont fluids - pt remains npo - check cpk - follow cultures - workup for fever in progress
[2019-05-23 16:21] LABS: BLOOD UREA NITROGEN 3.5 mg/dL (7-18); CALCIUM 7.8 mg/dL (8.5-10.1); CREATININE 0.4 mg/dL (0.55-1.3)
[2019-05-23 16:42] LABS: POTASSIUM 2.9 mmol/L (3.5-5.1)
[2019-05-23] MEDS ORDERED: POTASSIUM CHLORIDE ORAL LIQUID 20 MEQ/15 ML PO ONE (16:42)
[2019-05-24] MEDS: ACETAMINOPHEN 650 MG/20.3 ML ORAL SOLUTION (CUPS) PEG SCH ×4 (00:04→17:23)
[2019-05-24] MEDS ORDERED: PIPERACILLIN/TAZOBACTAM 3.375 GM VIAL IVPB ONE ×3 (00:06→18:27)
[2019-05-24] MEDS ORDERED: DEXTROSE 5%-WATER - 50 ML IVPB ONE ×3 (00:07→18:27)
[2019-05-24] MEDS: BACLOFEN 10 MG TABLET (FP) GT SCH ×3 (00:08→17:23)
[2019-05-24] MEDS: PIPERACILLIN/TAZOB 3.375 GM 3.375 GM in DEXTROSE 5%-WATER - 50 ML IVPB SCH ×3 (01:23→19:23)
[2019-05-24] MEDS: clonazePAM 0.5 MG TABLET GT SCH ×3 (05:53→23:36)
[2019-05-24] MEDS: BUDESONIDE 0.5 MG/2 ML INH SUSP VIAL NEB SCH ×2 (08:11→21:13)
[2019-05-24] MEDS: ALBUTEROL SO4 2.5/IPRATROPIUM 0.5 INH SOL 3 ML VIAL.NEB. NEB SCH ×4 (08:12→21:14)
[2019-05-24 08:15] LABS: BASO % 0.4 % (0-2.0); EOS % 1.8 % (0-4.5); HEMATOCRIT 31.5 % (35.4-49); HEMOGLOBIN 10.7 GM/dL (11.7-16.9); LYMPH % 9.3 % (8-40); MCH 29.8 pg (25.7-33.7); MCHC 34.1 g/dl (32.0-35.9); MEAN CELL VOLUME 87.5 fl (80-96); MEAN PLT VOLUME 7.6 fl (7.5-11.1); MONO % 8.9 % (3.8-10.2); NEUT % 79.6 % (42.8-82.8); PLATELET COUNT 234 K/MM3 (134-434); RDW 14.8 % (11.9-15.9)
[2019-05-24 08:29] LABS: ALBUMIN 2.7 g/dl (3.4-5.0); BILIRUBIN,TOTAL 0.2 mg/dL (0.2-1); BLOOD UREA NITROGEN 5.5 mg/dL (7-18); CREATININE 0.4 mg/dL (0.55-1.3)
[2019-05-24 08:41] LABS: POTASSIUM 2.9 mmol/L (3.5-5.1)
[2019-05-24] MEDS: RANITIDINE HCL 150 MG/10 ML UNIT-DOSE GT SCH ×2 (11:34→23:34)
[2019-05-24] MEDS: levETIRAcetam 500 MG/5 ML ORAL SOLUTION (UNIT-DOSE CUPS) GT SCH ×2 (11:35→23:35)
[2019-05-24] MEDS: APIXABAN 5 MG TABLET PEG SCH ×2 (11:35→23:36)
[2019-05-24] MEDS: ASPIRIN 81 MG CHEWABLE TABLETS GT SCH (11:35)
[2019-05-24] MEDS: carBAMazepine 100 MG/5 ML UNIT-DOSE CUP GT SCH ×2 (11:37→23:38)
[2019-05-24] MEDS ORDERED: PT OWN MED DRAWER 7, Y5N ONE ×2 (13:06→22:50)
--- NOTE | 2019-05-24 13:46 | PN ---
Progress Note (short form) - Note Progress Note: PULMONARY Pt nonverbal. No fevers recorded. Vital Signs Period Temp Pulse Resp BP Sys/Don Pulse Ox Last 24 Hr 98.6 F-99.0 F 98-113 18-20 92-130/58-75 94 Gen: NAD, nonverbal Heart: RRR Lung: scattered rhonchi Abd: soft, nontender Ext: no edema, contracted CBC, BMP 05/24/19 06:30 05/24/19 06:30 Active Medications Acetaminophen (Tylenol Oral Solution -) 480 mg PEG Q6HPO [facility] Last Admin: 05/24/19 11:32 Dose: 480 mg Albuterol Sulfate (Ventolin 0.083% Nebulizer Soln -) 1 amp NEB Q4H PRN PRN Reason: SHORT OF BREATH/WHEEZING Albuterol/Ipratropium (Duoneb -) 1 amp NEB RQID [facility] Last Admin: 05/24/19 13:01 Dose: 1 amp Apixaban (Eliquis -) 5 mg PEG BID [facility] Last Admin: 05/24/19 11:35 Dose: 5 mg Aspirin (Asa -) 81 mg GT DAILY [facility] Last Admin: 05/24/19 11:35 Dose: 81 mg Baclofen (Lioresal -) 20 mg GT 0000,1800 [facility] Last Admin: 05/24/19 07:20 Dose: Not Given Budesonide (Pulmicort 0.5 Mg Nebulizer -) 1 amp NEB RBID [facility] Last Admin: 05/24/19 08:11 Dose: 1 amp Carbamazepine (Carbamazepine) 280 mg GT BID [facility] Last Admin: 05/24/19 11:37 Dose: 280 mg Clonazepam (Klonopin -) 1 mg GT TID [facility] Last Admin: 05/24/19 05:53 Dose: 1 mg Piperacillin Sod/Tazobactam (Sod 3.375 gm/ Dextrose) 50 mls @ 100 mls/hr IVPB Q8H-IV [facility]; Protocol Last Admin: 05/24/19 11:33 Dose: 100 mls/hr Lactated Ringer's (Lactated Ringers Solution) 1,000 ml in 1,000 mls @ 50 mls/ hr IV ASDIR [facility] Last Admin: 05/23/19 17:39 Dose: 50 mls/hr Levetiracetam (Keppra Oral Solution -) 1,500 mg GT BID [facility] Last Admin: 05/24/19 11:35 Dose: 1,500 mg Ranitidine HCl (Zantac Oral Solution -) 150 mg GT BID [facility] Last Admin: 05/24/19 11:34 Dose: 150 mg A/P Mucous Plug/Likely Recurrent Aspiration Rhabdomyolysis Hyponatremia improving Asthma Cerebral Palsy Mental Retardation Seizure Disorder h/o DVT Functional Quadriplegia - continue antibiotics per ID - inhaled bronchodilators - chest PT - aspiration precautions - IVF - replete lytes - trend CPK - continue anticoagulation
--- NOTE | 2019-05-24 13:48 | PN ---
Progress Note, Physician History of Present Illness: Pt seen and examined at bedside. No great change. - Current Medication List Current Medications: Active Medications Acetaminophen (Tylenol Oral Solution -) 480 mg PEG Q6HPO [facility] Last Admin: 05/24/19 11:32 Dose: 480 mg Albuterol Sulfate (Ventolin 0.083% Nebulizer Soln -) 1 amp NEB Q4H PRN PRN Reason: SHORT OF BREATH/WHEEZING Albuterol/Ipratropium (Duoneb -) 1 amp NEB RQID [facility] Last Admin: 05/24/19 13:01 Dose: 1 amp Apixaban (Eliquis -) 5 mg PEG BID [facility] Last Admin: 05/24/19 11:35 Dose: 5 mg Aspirin (Asa -) 81 mg GT DAILY [facility] Last Admin: 05/24/19 11:35 Dose: 81 mg Baclofen (Lioresal -) 20 mg GT 0000,1800 [facility] Last Admin: 05/24/19 07:20 Dose: Not Given Budesonide (Pulmicort 0.5 Mg Nebulizer -) 1 amp NEB RBID [facility] Last Admin: 05/24/19 08:11 Dose: 1 amp Carbamazepine (Carbamazepine) 280 mg GT BID [facility] Last Admin: 05/24/19 11:37 Dose: 280 mg Clonazepam (Klonopin -) 1 mg GT TID [facility] Last Admin: 05/24/19 05:53 Dose: 1 mg Piperacillin Sod/Tazobactam (Sod 3.375 gm/ Dextrose) 50 mls @ 100 mls/hr IVPB Q8H-IV [facility]; Protocol Last Admin: 05/24/19 11:33 Dose: 100 mls/hr Lactated Ringer's (Lactated Ringers Solution) 1,000 ml in 1,000 mls @ 50 mls/ hr IV ASDIR [facility] Last Admin: 05/23/19 17:39 Dose: 50 mls/hr Levetiracetam (Keppra Oral Solution -) 1,500 mg GT BID [facility] Last Admin: 05/24/19 11:35 Dose: 1,500 mg Ranitidine HCl (Zantac Oral Solution -) 150 mg GT BID [facility] Last Admin: 05/24/19 11:34 Dose: 150 mg - Objective Vital Signs: Vital Signs Temperature 98.8 F 05/24/19 09:00 Pulse Rate 113 H 05/24/19 09:00 Respiratory Rate 20 05/24/19 09:00 Blood Pressure 106/60 05/24/19 09:00 O2 Sat by Pulse Oximetry (%) 94 L 05/23/19 21:00 Constitutional: Yes: Calm Eyes: Yes: Conjunctiva Clear Cardiovascular: Yes: S1, S2 Respiratory: Yes: CTA Bilaterally Gastrointestinal: Yes: Soft Genitourinary: Yes: Incontinence Musculoskeletal: Yes: Other Edema: No Neurological: Yes: Pre-Existing Deficit Labs: CBC, BMP 05/24/19 06:30 05/24/19 06:30 INR, PTT INR 1.30 (0.83-1.09) H 05/21/19 05:00 Problem List - Problems (1) Hyponatremia Code(s): E87.1 - HYPO-OSMOLALITY AND HYPONATREMIA (2) Rhabdomyolysis Code(s): M62.82 - RHABDOMYOLYSIS (3) Pneumonia Code(s): J18.9 - PNEUMONIA, UNSPECIFIED ORGANISM (4) Asthma Code(s): J45.909 - UNSPECIFIED ASTHMA, UNCOMPLICATED (5) Cerebral palsy Code(s): G80.9 - CEREBRAL PALSY, UNSPECIFIED Assessment/Plan Current Medications Generic Name Dose Route Start Last Admin Trade Name Freq PRN Reason Stop Dose Admin Acetaminophen 480 mg 05/22/19 14:00 05/24/19 11:32 Tylenol Oral Solution - PEG 480 mg Q6HPO [facility] Administration Albuterol Sulfate 1 amp 05/22/19 11:24 Ventolin 0.083% Nebulizer Soln - NEB Q4H PRN SHORT OF BREATH/WHEEZING Albuterol/Ipratropium 1 amp 05/22/19 12:00 05/24/19 13:01 Duoneb - NEB 1 amp RQID [facility] Administration Apixaban 5 mg 05/22/19 22:00 05/24/19 11:35 Eliquis - PEG 5 mg BID [facility] Administration Aspirin 81 mg 05/21/19 13:00 05/24/19 11:35 Asa - GT 81 mg DAILY [facility] Administration Baclofen 20 mg 05/21/19 18:00 05/24/19 07:20 Lioresal - GT Not Given 0000,1800 [facility] Budesonide 1 amp 05/21/19 13:12 05/24/19 08:11 Pulmicort 0.5 Mg Nebulizer - NEB 1 amp RBID [facility] Administration Carbamazepine 280 mg 05/21/19 14:00 05/24/19 11:37 Carbamazepine GT 280 mg BID [facility] Administration Clonazepam 1 mg 05/21/19 14:00 05/24/19 05:53 Klonopin - GT 1 mg TID [facility] Administration Piperacillin Sod/Tazobactam 50 mls @ 100 mls/hr 05/21/19 18:00 05/24/19 11:33 Sod 3.375 gm/ Dextrose IVPB 100 mls/hr Q8H-IV [facility] Administration Protocol Lactated Ringer's 1,000 ml in 1,000 mls @ 50 mls/hr 05/23/19 16:43 05/23/19 17:39 Lactated Ringers Solution IV 50 mls/hr ASDIR [facility]AN[facility] Administration Levetiracetam 1,500 mg 05/21/19 13:00 05/24/19 11:35 Keppra Oral Solution - GT 1,500 mg BID [facility] Administration Potassium Chloride 40 meq 05/24/19 14:00 Potassium Chloride Oral Liquid PO 05/24/19 22:01 BID [facility] Ranitidine HCl 150 mg 05/21/19 13:00 05/24/19 11:34 Zantac Oral Solution - GT 150 mg BID [facility] Administration Impression 1. hyponatremia 2. rhabdo - mild 3. fever 4. cerebral palsy 5. developemental delay 6. epilepsy 7. scoliosis with repair 8. lactic acidosis 9. hypokalemia Plan - decrease fluids - replace potassium - pt starting feeds - follow cpk - follow cultures
--- NOTE | 2019-05-24 14:50 | PN ---
Progress Note (short form) - Note Progress Note: NAD Vital Signs Period Temp Pulse Resp BP Sys/Don Pulse Ox Last 24 Hr 98.6 F-99.0 F 98-113 20-20 92-130/58-75 94 cor-rrr lungs decreased bs at bases abd soft,nt ext no edema CBC, BMP 05/24/19 06:30 05/24/19 06:30 Microbiology 05/22/19 12:15 Sputum - Oropharynx Suctioned Sputum Gram Stain - Final 05/22/19 12:15 Sputum - Oropharynx Suctioned Sputum Sputum Culture - Final NORMAL RESPIRATORY SHAQ 05/21/19 04:30 Blood - Peripheral Venous Blood Culture - Preliminary NO GROWTH OBTAINED AFTER 72 HOURS, INCUBATION TO CONTINUE FOR 2 DAYS. 05/21/19 04:30 Blood - Peripheral Venous Blood Culture - Preliminary NO GROWTH OBTAINED AFTER 72 HOURS, INCUBATION TO CONTINUE FOR 2 DAYS. 05/22/19 12:15 Urine For Antigen Detection Legionella Antigen - Final 05/22/19 12:15 Urine For Antigen Detection Streptococcus pneumoniae Antigen (M - Final 05/21/19 08:00 Urine - Urine - Catheterized Urine Culture - Final NO GROWTH OBTAINED Current Medications Acetaminophen (Tylenol Oral Solution -) 480 mg PEG Q6HPO [facility] Last Admin: 05/24/19 11:32 Dose: 480 mg Albuterol Sulfate (Ventolin 0.083% Nebulizer Soln -) 1 amp NEB Q4H PRN PRN Reason: SHORT OF BREATH/WHEEZING Albuterol/Ipratropium (Duoneb -) 1 amp NEB RQID [facility] Last Admin: 05/24/19 13:01 Dose: 1 amp Apixaban (Eliquis -) 5 mg PEG BID [facility] Last Admin: 05/24/19 11:35 Dose: 5 mg Aspirin (Asa -) 81 mg GT DAILY [facility] Last Admin: 05/24/19 11:35 Dose: 81 mg Baclofen (Lioresal -) 20 mg GT 0000,1800 [facility] Last Admin: 05/24/19 07:20 Dose: Not Given Budesonide (Pulmicort 0.5 Mg Nebulizer -) 1 amp NEB RBID [facility] Last Admin: 05/24/19 08:11 Dose: 1 amp Carbamazepine (Carbamazepine) 280 mg GT BID [facility] Last Admin: 05/24/19 11:37 Dose: 280 mg Clonazepam (Klonopin -) 1 mg GT TID [facility] Last Admin: 05/24/19 05:53 Dose: 1 mg Piperacillin Sod/Tazobactam (Sod 3.375 gm/ Dextrose) 50 mls @ 100 mls/hr IVPB Q8H-IV [facility]; Protocol Last Admin: 05/24/19 11:33 Dose: 100 mls/hr Lactated Ringer's (Lactated Ringers Solution) 1,000 ml in 1,000 mls @ 50 mls/ hr IV ASDIR [facility] Last Admin: 05/23/19 17:39 Dose: 50 mls/hr Potassium Chloride (Potassium Chloride 10 Meq Premix Ivpb -) 10 meq in 100 mls @ 100 mls/hr IVPB Q60M [facility] Stop: 05/24/19 15:59 Levetiracetam (Keppra Oral Solution -) 1,500 mg GT BID [facility] Last Admin: 05/24/19 11:35 Dose: 1,500 mg Potassium Chloride (Potassium Chloride Oral Liquid) 40 meq PO BID [facility] Stop: 05/24/19 22:01 Ranitidine HCl (Zantac Oral Solution -) 150 mg GT BID [facility] Last Admin: 05/24/19 11:34 Dose: 150 mg a/p fevers resolved mucous plug rhabdomyolysis day #3 zosyn continue chest PT and nebs consider d/c tylenol and observe Problem List - Problems (1) Fever Code(s): R50.9 - FEVER, UNSPECIFIED (2) Profound developmental delay Code(s): R62.50 - UNSP LACK OF EXPECTED NORMAL PHYSIOL DEV IN CHILDHOOD
[2019-05-24] MEDS: POTASSIUM CHLORIDE ORAL LIQUID 20 MEQ/15 ML PO SCH ×2 (15:04→23:43)
[2019-05-24] MEDS: KCL 10 MEQ IVPB 10 MEQ/100 ML INFUS.BAG IVPB SCH ×2 (15:13→17:22)
[2019-05-24] MEDS: LACTATED RINGERS SOLUTION 1,000 ML/1,000 ML INFUS.BAG IV SCH (17:22)
[2019-05-24] MEDS ORDERED: ACETAMINOPHEN 650 MG/20.3 ML ORAL SOLUTION (CUPS) PEG PRN (17:57)
--- NOTE | 2019-05-24 18:12 | PN ---
Physical Exam: SUBJECTIVE: Patient seen and examined, non verbal OBJECTIVE: Vital Signs Period Temp Pulse Resp BP Sys/Don Pulse Ox Last 24 Hr 98.1 F-99.0 F 98-118 20-20 92-130/58-89 94 Intake & Output 05/21/19 05/22/19 05/23/19 05/24/19 23:59 23:59 23:59 23:59 Intake Total 2450 2250 2200 1350 Output Total 1200 Balance 2450 2250 1000 1350 Weight 105 lb 5 oz 105 lb 104 lb 3.2 oz General: sitting in bed, no acute distress or use of accessory muscles of respiration neck: contracted CVS:S1S2 regular Chest: pos air entry, no rales or wheezing Extremities: no edema Laboratory Results - last 24 hr 05/24/19 05/24/19 06:30 06:30 WBC 8.0 RBC 3.60 L Hgb 10.7 L Hct 31.5 L MCV 87.5 MCH 29.8 MCHC 34.1 RDW 14.8 Plt Count 234 MPV 7.6 Absolute Neuts (auto) 6.4 Neutrophils % 79.6 D Lymphocytes % 9.3 D Monocytes % 8.9 Eosinophils % 1.8 D Basophils % 0.4 Nucleated RBC % 0 Sodium 136 Potassium 2.9 L* Chloride 103 Carbon Dioxide 22 Anion Gap 10 BUN 5.5 L Creatinine 0.4 L Est GFR (CKD-EPI)AfAm 188.66 Est GFR (CKD-EPI)NonAf 162.78 Random Glucose 124 H Calcium 8.0 L Total Bilirubin 0.2 AST 28 ALT 35 Alkaline Phosphatase 85 Creatine Kinase 1038 H Creatine Kinase Index 0.1 CK-MB (CK-2) 1.9 Total Protein 6.0 L Albumin 2.7 L Active Medications Generic Name Dose Route Start Last Admin Trade Name Freq PRN Reason Stop Dose Admin Acetaminophen 480 mg 05/24/19 17:57 Tylenol Oral Solution - PEG Q6H PRN FEVER Albuterol Sulfate 1 amp 05/22/19 11:24 Ventolin 0.083% Nebulizer Soln - NEB Q4H PRN SHORT OF BREATH/WHEEZING Albuterol/Ipratropium 1 amp 05/22/19 12:00 05/24/19 16:52 Duoneb - NEB 1 amp RQID ALEKSANDR Administration Apixaban 5 mg 05/22/19 22:00 05/24/19 11:35 Eliquis - PEG 5 mg BID ALEKSANDR Administration Aspirin 81 mg 05/21/19 13:00 05/24/19 11:35 Asa - GT 81 mg DAILY ALEKSANDR Administration Baclofen 20 mg 05/21/19 18:00 05/24/19 17:23 Lioresal - GT 20 mg 0000,1800 ALEKSANDR Administration Budesonide 1 amp 05/21/19 13:12 05/24/19 08:11 Pulmicort 0.5 Mg Nebulizer - NEB 1 amp RBID ALEKSANDR Administration Carbamazepine 280 mg 05/21/19 14:00 05/24/19 11:37 Carbamazepine GT 280 mg BID ALEKSANDR Administration Clonazepam 1 mg 05/21/19 14:00 05/24/19 15:04 Klonopin - GT 1 mg TID ALEKSANDR Administration Piperacillin Sod/Tazobactam 50 mls @ 100 mls/hr 05/21/19 18:00 05/24/19 11:33 Sod 3.375 gm/ Dextrose IVPB 100 mls/hr Q8H-IV ALEKSANDR Administration Protocol Lactated Ringer's 1,000 ml in 1,000 mls @ 50 mls/hr 05/23/19 16:43 05/24/19 17:22 Lactated Ringers Solution IV Not Given ASDIR ALEKASNDR Levetiracetam 1,500 mg 05/21/19 13:00 05/24/19 11:35 Keppra Oral Solution - GT 1,500 mg BID ALEKSANDR Administration Potassium Chloride 40 meq 05/24/19 14:00 05/24/19 15:04 Potassium Chloride Oral Liquid PO 05/24/19 22:01 40 meq BID ALEKSANDR Administration Ranitidine HCl 150 mg 05/21/19 13:00 05/24/19 11:34 Zantac Oral Solution - GT 150 mg BID ALEKSANDR Administration Home Medications Medication Instructions Recorded Carbamazepine [Tegretol -] 280 mg GT BID 03/17/18 Cholecalciferol (Vitamin D3) 2,000 unit GT DAILY 03/17/18 [Vitamin D3] Omeprazole Magnesium [Prilosec] 20 mg GT DAILY 03/17/18 clonazePAM [KlonoPIN -] 1 mg GT TID 03/17/18 Budesonide [Pulmicort 0.5 mg 1 neb NEB BID 07/12/18 Nebulizer -] Diazepam [Diastat Acudial] 20 mg RC PRN PRN 07/12/18 Ipratropium/Albuterol Sulfate 3 ml IH QID PRN 07/12/18 [Iprat-Albut 0.5-3(2.5) mg/3 ml] levETIRAcetam [Keppra Oral 1,500 mg GT BID cup 10/06/18 Solution -] Baclofen 20 mg GT ASDIR 03/08/19 Acetaminophen Oral Solution 480 mg PO Q6H 05/14/19 [Tylenol 160mg/5mL Oral Solution -] Apixaban [Eliquis] 5 mg GT BID 05/14/19 Aspirin [ASA -] 81 mg GT DAILY 05/21/19 Tamsulosin HCl [Flomax] 0.4 mg GT DAILY 05/21/19 Microbiology 05/22/19 12:15 Sputum - Oropharynx Suctioned Sputum Gram Stain - Final 05/22/19 12:15 Sputum - Oropharynx Suctioned Sputum Sputum Culture - Final NORMAL RESPIRATORY SHAQ 05/21/19 04:30 Blood - Peripheral Venous Blood Culture - Preliminary NO GROWTH OBTAINED AFTER 72 HOURS, INCUBATION TO CONTINUE FOR 2 DAYS. 05/21/19 04:30 Blood - Peripheral Venous Blood Culture - Preliminary NO GROWTH OBTAINED AFTER 72 HOURS, INCUBATION TO CONTINUE FOR 2 DAYS. 05/22/19 12:15 Urine For Antigen Detection Legionella Antigen - Final 05/22/19 12:15 Urine For Antigen Detection Streptococcus pneumoniae Antigen (M - Final 05/21/19 08:00 Urine - Urine - Catheterized Urine Culture - Final NO GROWTH OBTAINED CT chest/A/P results reviewed ASSESSMENT/PLAN: 28 yom with PMHx of cerebral palsy with spastic quadriparesis, cortical blindness, HTN, microcephaly, seizure disorder, scoliosis, hyponatremia, dysphagia on PEG feeds, Popliteal DVT 02/2019 on eliquis, recurrent admissions with aspiration Pneumonia, recently admitted with polymicrobial bacteremia, readmitted with increased oxygen needs, tachycardia and elevated lactate -Sepsis -Suspected aspiration Pneumonia -Hyponatremia, suspect from hypovolumia/sepsis -Recent Polymicrobial bacteremia, klebsiella pneumonia/Coag neg staph -HTN -Abnormal EKG -Cerebral palsy with spastic quadriparesis -Cortical blindness -HTN -Microcephaly -Seizure disorder -Scoliosis -Dysphagia on PEG feeds -Popliteal DVT 02/2019 Plan: ID input noted Zosyn. Chest PT, mucolytics Prn nebs, resumed tube feeds D/c standing tylenol Continue anti-epileptics DVTPPX on eliquis Dispo pending to [facility] pending clinical improvement Discussed with nursing. - Visit type - Emergency Visit Emergency Visit: Yes ED Registration Date: 05/21/19 Care time: The patient presented to the Emergency Department on the above date and was hospitalized for further evaluation of their emergent condition. - New Patient This patient is new to me today: Yes Date on this admission: 05/24/19 - Critical Care Critical Care patient: No - Discharge Referral Referred to [facility] Med [facility] No
[2019-05-25] MEDS: BACLOFEN 10 MG TABLET (FP) GT SCH ×2 (00:41→22:51)
[2019-05-25] MEDS ORDERED: PT OWN MED DRAWER 7, Y5N ONE ×4 (00:58→13:58)
[2019-05-25] MEDS ORDERED: DEXTROSE 5%-WATER - 50 ML IVPB ONE ×3 (01:19→17:36)
[2019-05-25] MEDS ORDERED: PIPERACILLIN/TAZOBACTAM 3.375 GM VIAL IVPB ONE ×3 (01:19→17:36)
[2019-05-25] MEDS: PIPERACILLIN/TAZOB 3.375 GM 3.375 GM in DEXTROSE 5%-WATER - 50 ML IVPB SCH ×3 (01:24→22:51)
[2019-05-25] MEDS: clonazePAM 0.5 MG TABLET GT SCH ×3 (06:49→23:30)
[2019-05-25] MEDS: ALBUTEROL SO4 2.5/IPRATROPIUM 0.5 INH SOL 3 ML VIAL.NEB. NEB SCH ×4 (07:35→20:10)
[2019-05-25] MEDS: BUDESONIDE 0.5 MG/2 ML INH SUSP VIAL NEB SCH ×2 (07:40→20:16)
--- NOTE | 2019-05-25 09:51 | PN ---
Progress Note (short form) - Note Progress Note: PULMONARY Pt nonverbal. No fevers recorded. Vital Signs Period Temp Pulse Resp BP Sys/Don Pulse Ox Last 24 Hr 97.5 F-98.5 F 93-118 20-20 104-142/48-91 95 Gen: NAD, nonverbal Heart: RRR Lung: scattered rhonchi Abd: soft, nontender Ext: no edema, contracted CBC, BMP 05/24/19 06:30 05/24/19 06:30 Active Medications Acetaminophen (Tylenol Oral Solution -) 480 mg PEG Q6H PRN PRN Reason: FEVER Albuterol Sulfate (Ventolin 0.083% Nebulizer Soln -) 1 amp NEB Q4H PRN PRN Reason: SHORT OF BREATH/WHEEZING Albuterol/Ipratropium (Duoneb -) 1 amp NEB RQID [facility] Last Admin: 05/25/19 07:35 Dose: 1 amp Apixaban (Eliquis -) 5 mg PEG BID [facility] Last Admin: 05/24/19 23:36 Dose: 5 mg Aspirin (Asa -) 81 mg GT DAILY [facility] Last Admin: 05/24/19 11:35 Dose: 81 mg Baclofen (Lioresal -) 20 mg GT 0000,1800 ALEKSANDR Last Admin: 05/25/19 00:41 Dose: 20 mg Budesonide (Pulmicort 0.5 Mg Nebulizer -) 1 amp NEB RBID [facility] Last Admin: 05/25/19 07:40 Dose: 1 amp Carbamazepine (Carbamazepine) 280 mg GT BID [facility] Last Admin: 05/24/19 23:38 Dose: 280 mg Clonazepam (Klonopin -) 1 mg GT TID [facility] Last Admin: 05/25/19 06:49 Dose: 1 mg Piperacillin Sod/Tazobactam (Sod 3.375 gm/ Dextrose) 50 mls @ 100 mls/hr IVPB Q8H-IV ALEKSANDR; Protocol Last Admin: 05/25/19 01:24 Dose: 100 mls/hr Lactated Ringer's (Lactated Ringers Solution) 1,000 ml in 1,000 mls @ 50 mls/ hr IV ASDIR ALEKSANDR Last Admin: 05/24/19 17:22 Dose: Not Given Levetiracetam (Keppra Oral Solution -) 1,500 mg GT BID [facility] Last Admin: 05/24/19 23:35 Dose: 1,500 mg Ranitidine HCl (Zantac Oral Solution -) 150 mg GT BID ALEKSANDR Last Admin: 05/24/19 23:34 Dose: 150 mg A/P Mucous Plug/Likely Recurrent Aspiration Rhabdomyolysis Hyponatremia improving Asthma Cerebral Palsy Mental Retardation Seizure Disorder h/o DVT Functional Quadriplegia - continue antibiotics per ID - inhaled bronchodilators - chest PT - aspiration precautions - IVF - replete lytes - trend CPK - continue anticoagulation
[2019-05-25] MEDS: levETIRAcetam 500 MG/5 ML ORAL SOLUTION (UNIT-DOSE CUPS) GT SCH ×2 (10:13→23:30)
[2019-05-25] MEDS: RANITIDINE HCL 150 MG/10 ML UNIT-DOSE GT SCH ×2 (10:13→23:30)
[2019-05-25] MEDS: APIXABAN 5 MG TABLET PEG SCH ×2 (10:14→23:30)
[2019-05-25] MEDS: carBAMazepine 100 MG/5 ML UNIT-DOSE CUP GT SCH ×2 (10:14→23:31)
[2019-05-25] MEDS: ASPIRIN 81 MG CHEWABLE TABLETS GT SCH (10:14)
[2019-05-25 10:28] LABS: ALBUMIN 3.2 g/dl (3.4-5.0); BILIRUBIN,TOTAL 0.3 mg/dL (0.2-1); BLOOD UREA NITROGEN 3.5 mg/dL (7-18); CALCIUM 8.8 mg/dL (8.5-10.1); CREATININE 0.4 mg/dL (0.55-1.3); POTASSIUM 3.8 mmol/L (3.5-5.1); TOT PROT 7.5 g/dl (6.4-8.2)
[2019-05-25 10:31] LABS: HEMATOCRIT 38.2 % (35.4-49); HEMOGLOBIN 12.7 GM/dL (11.7-16.9); MCH 29.1 pg (25.7-33.7); MCHC 33.1 g/dl (32.0-35.9); MEAN CELL VOLUME 87.8 fl (80-96); MEAN PLT VOLUME 7.6 fl (7.5-11.1); PLATELET COUNT 255 K/MM3 (134-434); RBC 4.35 M/mm3 (4.00-5.60); RDW 14.9 % (11.9-15.9); WHITE BLOOD COUNT 5.5 K/mm3 (4.0-10.0)
--- NOTE | 2019-05-25 15:09 | PN ---
Progress Note (short form) - Note Progress Note: NAD less cough today no fevers off tylenol Vital Signs Period Temp Pulse Resp BP Sys/Don Pulse Ox Last 24 Hr 97.5 F-98.1 F 93-118 20-20 107-142/48-91 95 cor-rrr lungs decreased bs at bases abd soft,nt ext no edema CBC, BMP 05/25/19 09:05 05/25/19 09:05 Microbiology 05/21/19 04:30 Blood - Peripheral Venous Blood Culture - Preliminary NO GROWTH OBTAINED AFTER 96 HOURS, INCUBATION TO CONTINUE FOR 1 DAYS. 05/21/19 04:30 Blood - Peripheral Venous Blood Culture - Preliminary NO GROWTH OBTAINED AFTER 96 HOURS, INCUBATION TO CONTINUE FOR 1 DAYS. 05/22/19 12:15 Sputum - Oropharynx Suctioned Sputum Gram Stain - Final 05/22/19 12:15 Sputum - Oropharynx Suctioned Sputum Sputum Culture - Final NORMAL RESPIRATORY SHAQ 05/22/19 12:15 Urine For Antigen Detection Legionella Antigen - Final 05/22/19 12:15 Urine For Antigen Detection Streptococcus pneumoniae Antigen (M - Final 05/21/19 08:00 Urine - Urine - Catheterized Urine Culture - Final NO GROWTH OBTAINED a/p fevers resolved mucous plug rhabdomyolysis-improved day #4 zosyn continue chest PT and nebs, mucolytics consider change to augmentin next 24 to 48 hours Problem List - Problems (1) Fever Code(s): R50.9 - FEVER, UNSPECIFIED (2) Profound developmental delay Code(s): R62.50 - UNSP LACK OF EXPECTED NORMAL PHYSIOL DEV IN CHILDHOOD
--- NOTE | 2019-05-25 17:29 | PN ---
Teaching Attending Note Name of Resident: Marcellus Parada ATTENDING PHYSICIAN STATEMENT I saw and evaluated the patient. I reviewed the resident's note and discussed the case with the resident. I agree with the resident's findings and plan as documented with exceptions below. SUBJECTIVE: patient seen and examined. smiling, unable to assess for ROS. OBJECTIVE: Vital Signs Period Temp Pulse Resp BP Sys/Don Pulse Ox Last 24 Hr 97.5 F-98.6 F 79-112 20-20 92-148/48-97 95-95 Intake & Output 05/22/19 05/23/19 05/24/19 05/25/19 23:59 23:59 23:59 23:59 Intake Total 2250 2200 2125 685 Output Total 1200 1100 100 Balance 2250 1000 1025 585 Weight 105 lb 104 lb 3.2 oz 106 lb 2 oz General: sitting in bed, no acute distress or use of accessory muscles of respiration neck: contracted CVS:S1S2 regular Chest: pos air entry, no rales or wheezing Extremities: no edema Home Medications Medication Instructions Recorded Carbamazepine [Tegretol -] 280 mg GT BID 03/17/18 Cholecalciferol (Vitamin D3) 2,000 unit GT DAILY 03/17/18 [Vitamin D3] Omeprazole Magnesium [Prilosec] 20 mg GT DAILY 03/17/18 clonazePAM [KlonoPIN -] 1 mg GT TID 03/17/18 Budesonide [Pulmicort 0.5 mg 1 neb NEB BID 07/12/18 Nebulizer -] Diazepam [Diastat Acudial] 20 mg RC PRN PRN 07/12/18 Ipratropium/Albuterol Sulfate 3 ml IH QID PRN 07/12/18 [Iprat-Albut 0.5-3(2.5) mg/3 ml] levETIRAcetam [Keppra Oral 1,500 mg GT BID cup 10/06/18 Solution -] Baclofen 20 mg GT ASDIR 03/08/19 Acetaminophen Oral Solution 480 mg PO Q6H 05/14/19 [Tylenol 160mg/5mL Oral Solution -] Apixaban [Eliquis] 5 mg GT BID 05/14/19 Aspirin [ASA -] 81 mg GT DAILY 05/21/19 Tamsulosin HCl [Flomax] 0.4 mg GT DAILY 05/21/19 Active Medications Acetaminophen (Tylenol Oral Solution -) 480 mg PEG Q6H PRN PRN Reason: FEVER Albuterol Sulfate (Ventolin 0.083% Nebulizer Soln -) 1 amp NEB Q4H PRN PRN Reason: SHORT OF BREATH/WHEEZING Albuterol/Ipratropium (Duoneb -) 1 amp NEB RQID [facility] Last Admin: 05/25/19 15:45 Dose: 1 amp Apixaban (Eliquis -) 5 mg PEG BID [facility] Last Admin: 05/25/19 10:14 Dose: 5 mg Aspirin (Asa -) 81 mg GT DAILY [facility] Last Admin: 05/25/19 10:14 Dose: 81 mg Baclofen (Lioresal -) 20 mg GT 0000,1800 [facility] Last Admin: 05/25/19 00:41 Dose: 20 mg Budesonide (Pulmicort 0.5 Mg Nebulizer -) 1 amp NEB RBID [facility] Last Admin: 05/25/19 07:40 Dose: 1 amp Carbamazepine (Carbamazepine) 280 mg GT BID [facility] Last Admin: 05/25/19 10:14 Dose: 280 mg Clonazepam (Klonopin -) 1 mg GT TID [facility] Last Admin: 05/25/19 13:54 Dose: 1 mg Piperacillin Sod/Tazobactam (Sod 3.375 gm/ Dextrose) 50 mls @ 100 mls/hr IVPB Q8H-IV ALEKSANDR; Protocol Last Admin: 05/25/19 10:14 Dose: 100 mls/hr Lactated Ringer's (Lactated Ringers Solution) 1,000 ml in 1,000 mls @ 50 mls/ hr IV ASDIR [facility] Last Admin: 05/24/19 17:22 Dose: Not Given Levetiracetam (Keppra Oral Solution -) 1,500 mg GT BID [facility] Last Admin: 05/25/19 10:13 Dose: 1,500 mg Ranitidine HCl (Zantac Oral Solution -) 150 mg GT BID [facility] Last Admin: 05/25/19 10:13 Dose: 150 mg Laboratory Results - last 24 hr 05/25/19 05/25/19 09:05 09:05 WBC 5.5 RBC 4.35 Hgb 12.7 Hct 38.2 D MCV 87.8 MCH 29.1 MCHC 33.1 RDW 14.9 Plt Count 255 MPV 7.6 Sodium 139 Potassium 3.8 Chloride 106 Carbon Dioxide 24 Anion Gap 9 BUN 3.5 L Creatinine 0.4 L Est GFR (CKD-EPI)AfAm 188.66 Est GFR (CKD-EPI)NonAf 162.78 Random Glucose 110 H Calcium 8.8 Total Bilirubin 0.3 AST 22 ALT 39 Alkaline Phosphatase 103 Creatine Kinase 625 H Creatine Kinase Index 0.3 CK-MB (CK-2) 2.2 Total Protein 7.5 Albumin 3.2 L Microbiology 05/21/19 04:30 Blood - Peripheral Venous Blood Culture - Preliminary NO GROWTH OBTAINED AFTER 96 HOURS, INCUBATION TO CONTINUE FOR 1 DAYS. 05/21/19 04:30 Blood - Peripheral Venous Blood Culture - Preliminary NO GROWTH OBTAINED AFTER 96 HOURS, INCUBATION TO CONTINUE FOR 1 DAYS. 05/22/19 12:15 Sputum - Oropharynx Suctioned Sputum Gram Stain - Final 05/22/19 12:15 Sputum - Oropharynx Suctioned Sputum Sputum Culture - Final NORMAL RESPIRATORY SHAQ 05/22/19 12:15 Urine For Antigen Detection Legionella Antigen - Final 05/22/19 12:15 Urine For Antigen Detection Streptococcus pneumoniae Antigen (M - Final 05/21/19 08:00 Urine - Urine - Catheterized Urine Culture - Final NO GROWTH OBTAINED ASSESSMENT AND PLAN: 28 yom with PMHx of cerebral palsy with spastic quadriparesis, cortical blindness, HTN, microcephaly, seizure disorder, scoliosis, hyponatremia, dysphagia on PEG feeds, Popliteal DVT 02/2019 on eliquis, recurrent admissions with aspiration Pneumonia, recently admitted with polymicrobial bacteremia, readmitted with increased oxygen needs, tachycardia and elevated lactate -Sepsis -Suspected aspiration Pneumonia -Hyponatremia, suspect from hypovolumia/sepsis -Recent Polymicrobial bacteremia, klebsiella pneumonia/Coag neg staph -Hypokalemia -HTN -Abnormal EKG -Cerebral palsy with spastic quadriparesis -Cortical blindness -HTN -Microcephaly -Seizure disorder -Scoliosis -Dysphagia on PEG feeds -Popliteal DVT 02/2019 Plan: ID input noted Zosyn. Augmentin in 24-48 hours. Afebrile. Chest PT, mucolytics Prn nebs, Resumed tube feeds Continue anti-epileptics DVTPPX on eliquis Dispo to [facility] in 24-48 hours if afebrile and no new concerns. Discussed with nursing.
--- NOTE | 2019-05-25 19:25 | PN ---
Progress Note, Physician History of Present Illness: Pt seen and examined at bedside. No great change in status. - Current Medication List Current Medications: Active Medications Acetaminophen (Tylenol Oral Solution -) 480 mg PEG Q6H PRN PRN Reason: FEVER Albuterol Sulfate (Ventolin 0.083% Nebulizer Soln -) 1 amp NEB Q4H PRN PRN Reason: SHORT OF BREATH/WHEEZING Last Admin: 05/25/19 17:45 Dose: 1 amp Albuterol/Ipratropium (Duoneb -) 1 amp NEB RQID ALEKSANDR Last Admin: 05/25/19 15:45 Dose: 1 amp Apixaban (Eliquis -) 5 mg PEG BID ALEKSANDR Last Admin: 05/25/19 10:14 Dose: 5 mg Aspirin (Asa -) 81 mg GT DAILY ALEKSANDR Last Admin: 05/25/19 10:14 Dose: 81 mg Baclofen (Lioresal -) 20 mg GT 0000,1800 ALEKSANDR Last Admin: 05/25/19 00:41 Dose: 20 mg Budesonide (Pulmicort 0.5 Mg Nebulizer -) 1 amp NEB RBID ALEKSANDR Last Admin: 05/25/19 07:40 Dose: 1 amp Carbamazepine (Carbamazepine) 280 mg GT BID ALEKSANDR Last Admin: 05/25/19 10:14 Dose: 280 mg Clonazepam (Klonopin -) 1 mg GT TID ALEKSANDR Last Admin: 05/25/19 13:54 Dose: 1 mg Piperacillin Sod/Tazobactam (Sod 3.375 gm/ Dextrose) 50 mls @ 100 mls/hr IVPB Q8H-IV ALEKSANDR; Protocol Last Admin: 05/25/19 10:14 Dose: 100 mls/hr Lactated Ringer's (Lactated Ringers Solution) 1,000 ml in 1,000 mls @ 50 mls/ hr IV ASDIR ALEKSANDR Last Admin: 05/24/19 17:22 Dose: Not Given Levetiracetam (Keppra Oral Solution -) 1,500 mg GT BID ALEKSANDR Last Admin: 05/25/19 10:13 Dose: 1,500 mg Ranitidine HCl (Zantac Oral Solution -) 150 mg GT BID ALEKSANDR Last Admin: 05/25/19 10:13 Dose: 150 mg - Objective Vital Signs: Vital Signs Temperature 98.0 F 05/25/19 16:49 Pulse Rate 79 05/25/19 16:49 Respiratory Rate 20 05/25/19 16:49 Blood Pressure 92/53 L 05/25/19 16:49 O2 Sat by Pulse Oximetry (%) 95 05/25/19 09:00 Constitutional: Yes: Calm Eyes: Yes: Conjunctiva Clear Neck: Yes: Supple Cardiovascular: Yes: S1, S2 Respiratory: Yes: CTA Bilaterally Gastrointestinal: Yes: Soft Genitourinary: Yes: Incontinence Musculoskeletal: Yes: Muscle Weakness Edema: No Neurological: Yes: Pre-Existing Deficit Labs: CBC, BMP 05/25/19 09:05 05/25/19 09:05 INR, PTT INR 1.30 (0.83-1.09) H 05/21/19 05:00 Problem List - Problems (1) Hyponatremia Code(s): E87.1 - HYPO-OSMOLALITY AND HYPONATREMIA (2) Rhabdomyolysis Code(s): M62.82 - RHABDOMYOLYSIS (3) Pneumonia Code(s): J18.9 - PNEUMONIA, UNSPECIFIED ORGANISM (4) Asthma Code(s): J45.909 - UNSPECIFIED ASTHMA, UNCOMPLICATED (5) Cerebral palsy Code(s): G80.9 - CEREBRAL PALSY, UNSPECIFIED Assessment/Plan Current Medications Generic Name Dose Route Start Last Admin Trade Name Freq PRN Reason Stop Dose Admin Acetaminophen 480 mg 05/24/19 17:57 Tylenol Oral Solution - PEG Q6H PRN FEVER Albuterol Sulfate 1 amp 05/22/19 11:24 05/25/19 17:45 Ventolin 0.083% Nebulizer Soln - NEB 1 amp Q4H PRN Administration SHORT OF BREATH/WHEEZING Albuterol/Ipratropium 1 amp 05/22/19 12:00 05/25/19 15:45 Duoneb - NEB 1 amp RQID ALEKSANDR Administration Apixaban 5 mg 05/22/19 22:00 05/25/19 10:14 Eliquis - PEG 5 mg BID ALEKSANDR Administration Aspirin 81 mg 05/21/19 13:00 05/25/19 10:14 Asa - GT 81 mg DAILY ALEKSANDR Administration Baclofen 20 mg 05/21/19 18:00 05/25/19 00:41 Lioresal - GT 20 mg 0000,1800 ALEKSANDR Administration Budesonide 1 amp 05/21/19 13:12 09/26/19 07:40 Pulmicort 0.5 Mg Nebulizer - NEB 1 amp RBID ALEKSANDR Administration Carbamazepine 280 mg 05/21/19 14:00 05/25/19 10:14 Carbamazepine GT 280 mg BID ALEKSANDR Administration Clonazepam 1 mg 05/21/19 14:00 05/25/19 13:54 Klonopin - GT 1 mg TID ALEKSANDR Administration Piperacillin Sod/Tazobactam 50 mls @ 100 mls/hr 05/21/19 18:00 05/25/19 10:14 Sod 3.375 gm/ Dextrose IVPB 100 mls/hr Q8H-IV ALEKSANDR Administration Protocol Lactated Ringer's 1,000 ml in 1,000 mls @ 50 mls/hr 05/23/19 16:43 05/24/19 17:22 Lactated Ringers Solution IV Not Given ASDIR ALEKSANDR Levetiracetam 1,500 mg 05/21/19 13:00 05/25/19 10:13 Keppra Oral Solution - GT 1,500 mg BID ALEKSANDR Administration Ranitidine HCl 150 mg 05/21/19 13:00 05/25/19 10:13 Zantac Oral Solution - GT 150 mg BID ALEKSANDR Administration Impression 1. hyponatremia 2. rhabdo - mild 3. fever 4. cerebral palsy 5. developemental delay 6. epilepsy 7. scoliosis with repair 8. lactic acidosis 9. hypokalemia Plan - cpk improving - sodium improved - can d/c fluids - no fevers - pt tolerating feeds - follow cultures
[2019-05-26] MEDS: BACLOFEN 10 MG TABLET (FP) GT SCH ×2 (00:16→17:22)
[2019-05-26] MEDS ORDERED: PIPERACILLIN/TAZOBACTAM 3.375 GM VIAL IVPB ONE ×2 (02:10→09:52)
[2019-05-26] MEDS ORDERED: DEXTROSE 5%-WATER - 50 ML IVPB ONE ×2 (02:10→09:52)
[2019-05-26] MEDS: PIPERACILLIN/TAZOB 3.375 GM 3.375 GM in DEXTROSE 5%-WATER - 50 ML IVPB SCH ×2 (02:24→09:58)
[2019-05-26] MEDS: clonazePAM 0.5 MG TABLET GT SCH ×2 (05:52→14:12)
[2019-05-26] MEDS: ALBUTEROL SO4 2.5/IPRATROPIUM 0.5 INH SOL 3 ML VIAL.NEB. NEB SCH ×2 (07:40→11:40)
[2019-05-26] MEDS: BUDESONIDE 0.5 MG/2 ML INH SUSP VIAL NEB SCH (07:40)
[2019-05-26 08:40] LABS: BLOOD UREA NITROGEN 3.6 mg/dL (7-18); CALCIUM 8.3 mg/dL (8.5-10.1); CREATININE 0.3 mg/dL (0.55-1.3); POTASSIUM 3.4 mmol/L (3.5-5.1)
[2019-05-26] MEDS: APIXABAN 5 MG TABLET PEG SCH (09:59)
[2019-05-26] MEDS: ASPIRIN 81 MG CHEWABLE TABLETS GT SCH (09:59)
[2019-05-26] MEDS ORDERED: POTASSIUM CHLORIDE ORAL LIQUID 20 MEQ/15 ML GT SCH (10:00)
[2019-05-26] MEDS: carBAMazepine 100 MG/5 ML UNIT-DOSE CUP GT SCH (10:00)
[2019-05-26] MEDS: levETIRAcetam 500 MG/5 ML ORAL SOLUTION (UNIT-DOSE CUPS) GT SCH (10:00)
[2019-05-26] MEDS: RANITIDINE HCL 150 MG/10 ML UNIT-DOSE GT SCH (10:00)
--- NOTE | 2019-05-26 13:43 | PN ---
Progress Note (short form) - Note Progress Note: NAD Vital Signs Period Temp Pulse Resp BP Sys/Don Pulse Ox Last 24 Hr 97.7 F-99.3 F 74-131 20-28 92-129/53-91 94-96 cor-rrr llungs clear abd soft,nt ext no edema CBC, BMP 05/25/19 09:05 05/26/19 07:33 Microbiology 05/21/19 04:30 Blood - Peripheral Venous Blood Culture - Final NO GROWTH AFTER 5 DAYS INCUBATION 05/21/19 04:30 Blood - Peripheral Venous Blood Culture - Final NO GROWTH AFTER 5 DAYS INCUBATION 05/22/19 12:15 Sputum - Oropharynx Suctioned Sputum Gram Stain - Final 05/22/19 12:15 Sputum - Oropharynx Suctioned Sputum Sputum Culture - Final NORMAL RESPIRATORY SHAQ 05/22/19 12:15 Urine For Antigen Detection Legionella Antigen - Final 05/22/19 12:15 Urine For Antigen Detection Streptococcus pneumoniae Antigen (M - Final 05/21/19 08:00 Urine - Urine - Catheterized Urine Culture - Final NO GROWTH OBTAINED a/p fevers resolved mucous plug rhabdomyolysis-improved day # 5 zosyn continue chest PT and nebs, mucolytics no objection to switch to po augmentin to complete 7 days total, need to continue chest PT and mucolytics Problem List - Problems (1) Fever Code(s): R50.9 - FEVER, UNSPECIFIED (2) Profound developmental delay Code(s): R62.50 - UNSP LACK OF EXPECTED NORMAL PHYSIOL DEV IN CHILDHOOD
--- NOTE | 2019-05-26 14:34 | PN ---
Progress Note (short form) - Note Progress Note: PULMONARY APPEARS STABLE NONVERBAL NOT ON O2 VSS/AFEBRILE MICROCEPHALY CLEAR B/L ANTERIOR LUNG MOCK S1S2 PEG NO EDEMA LABS/MEDS/NOTES/IMAGES REVIEWED Mucous Plug/Likely Recurrent Aspiration resolved Rhabdomyolysis Hyponatremia improved Asthma Cerebral Palsy Mental Retardation Seizure Disorder h/o DVT Functional Quadriplegia - antibiotics per ID - inhaled bronchodilators - chest PT - aspiration precautions - IVF as needed - continue anticoagulation no objection to continue treatment in the facility Brian SOLO MD
--- NOTE | 2019-05-26 14:41 | PN ---
Teaching Attending Note Name of Resident: Marcellus Parada ATTENDING PHYSICIAN STATEMENT I saw and evaluated the patient. I reviewed the resident's note and discussed the case with the resident. I agree with the resident's findings and plan as documented with exceptions below. SUBJECTIVE: Patient seen and examined, non verbal, comfortable. OBJECTIVE: Vital Signs Period Temp Pulse Resp BP Sys/Don Pulse Ox Last 24 Hr 97.7 F-99.3 F 74-131 20-28 92-129/53-91 94-96 Intake & Output 05/23/19 05/24/19 05/25/19 05/26/19 23:59 23:59 23:59 23:59 Intake Total 2200 2125 885 Output Total 1200 1100 500 600 Balance 1000 1025 385 -600 Weight 105 lb 104 lb 3.2 oz 106 lb 2 oz 106 lb 4.8 oz ASSESSMENT AND PLAN: 28 yom with PMHx of cerebral palsy with spastic quadriparesis, cortical blindness, HTN, microcephaly, seizure disorder, scoliosis, hyponatremia, dysphagia on PEG feeds, Popliteal DVT 02/2019 on eliquis, recurrent admissions with aspiration Pneumonia, recently admitted with polymicrobial bacteremia, readmitted with increased oxygen needs, tachycardia and elevated lactate -Sepsis -Suspected aspiration Pneumonia -Hyponatremia, suspect from hypovolumia/sepsis -Recent Polymicrobial bacteremia, klebsiella pneumonia/Coag neg staph -Hypokalemia -HTN -Abnormal EKG -Cerebral palsy with spastic quadriparesis -Cortical blindness -HTN -Microcephaly -Seizure disorder -Scoliosis -Dysphagia on PEG feeds -Popliteal DVT 02/2019 Plan: ID input noted Doing well, afebrile, respi status stable. Change PO po augment Pulmonary/ID input ntoed. Chest PT, mucolytics Prn nebs, Resumed tube feeds Continue anti-epileptics DVTPPX on eliquis Dispo to [place] today if arrangements made. Discussed with nursing and social work.
--- NOTE | 2019-05-26 15:24 | DS ---
Physical Exam: SUBJECTIVE: Nonverbal. Minimal secretions, however reported increased secretions and held feeds overnight. Reinstated feeds and tolerating. OBJECTIVE: Vital Signs Period Temp Pulse Resp BP Sys/Don Pulse Ox Last 24 Hr 97.7 F-99.3 F 74-131 20-28 92-129/53-91 94-96 PHYSICAL EXAM GEN: NAD, awake, nonverbal HEENT: Microcephaly, MMM, minimal secretions Neck: No JVD Lungs: CTA b/l on RA without any accessory muscle use CARD: RRR no murmur ABD: NT/ND, soft, PEG in place without any drainage around site, residual 0 on check today Ext: No edema, contracted LABS Laboratory Results - last 24 hr 05/26/19 07:33 Sodium 137 Potassium 3.4 L Chloride 103 Carbon Dioxide 26 Anion Gap 8 BUN 3.6 L Creatinine 0.3 L Est GFR (CKD-EPI)AfAm 212.34 Est GFR (CKD-EPI)NonAf 183.21 Random Glucose 101 Calcium 8.3 L Active Medications Acetaminophen (Tylenol Oral Solution -) 480 mg PEG Q6H PRN PRN Reason: FEVER Albuterol Sulfate (Ventolin 0.083% Nebulizer Soln -) 1 amp NEB Q4H PRN PRN Reason: SHORT OF BREATH/WHEEZING Last Admin: 05/25/19 17:45 Dose: 1 amp Albuterol/Ipratropium (Duoneb -) 1 amp NEB RQID [facility] Last Admin: 05/26/19 11:40 Dose: 1 amp Amoxicillin/Clavulanate Potassium (Augmentin - 875mg Tablet) 1 tab PO BID@0800, 1730 [facility] Stop: 06/02/19 17:29 Apixaban (Eliquis -) 5 mg PEG BID [facility] Last Admin: 05/26/19 09:59 Dose: 5 mg Aspirin (Asa -) 81 mg GT DAILY [facility] Last Admin: 05/26/19 09:59 Dose: 81 mg Baclofen (Lioresal -) 20 mg GT 0000,1800 [facility] Last Admin: 05/26/19 00:16 Dose: 20 mg Budesonide (Pulmicort 0.5 Mg Nebulizer -) 1 amp NEB RBID [facility] Last Admin: 05/26/19 07:40 Dose: 1 amp Carbamazepine (Carbamazepine) 280 mg GT BID [facility] Last Admin: 05/26/19 10:00 Dose: 280 mg Clonazepam (Klonopin -) 1 mg GT TID [facility] Last Admin: 05/26/19 14:12 Dose: 1 mg Levetiracetam (Keppra Oral Solution -) 1,500 mg GT BID [facility] Last Admin: 05/26/19 10:00 Dose: 1,500 mg Potassium Chloride (Potassium Chloride Oral Liquid) 20 meq GT BID [facility] Last Admin: 05/26/19 10:00 Dose: 20 meq Ranitidine HCl (Zantac Oral Solution -) 150 mg GT BID [facility] Last Admin: 05/26/19 10:00 Dose: 150 mg Microbiology 05/21/19 04:30 Blood - Peripheral Venous Blood Culture - Final NO GROWTH AFTER 5 DAYS INCUBATION 05/21/19 04:30 Blood - Peripheral Venous Blood Culture - Final NO GROWTH AFTER 5 DAYS INCUBATION 05/22/19 12:15 Sputum - Oropharynx Suctioned Sputum Gram Stain - Final 05/22/19 12:15 Sputum - Oropharynx Suctioned Sputum Sputum Culture - Final NORMAL RESPIRATORY SHAQ 05/22/19 12:15 Urine For Antigen Detection Legionella Antigen - Final 05/22/19 12:15 Urine For Antigen Detection Streptococcus pneumoniae Antigen (M - Final 05/21/19 08:00 Urine - Urine - Catheterized Urine Culture - Final NO GROWTH OBTAINED Imaging: CT Abdomen w/o contrast: Secretions and fluid suspected filling the right main bronchus. Pulmonary correlate and if necessary bronchoscopy can be obtained. Essentially clear lungs. Rule out cystitis. PEG in place. HOSPITAL COURSE: Date of Admission:05/21/19 Date of Discharge: 05/26/19 Pt was admitted on 05/21/2019 due to increase oxygen needs and suspected sepsis. Pt was admitted with suspicion of aspiration pneumonia. Pt's tube feeds were held and he was noted to have fevers in workup. Pt was treated with Zosyn for 6 days and was seen by our infectious disease physicians. Blood culture and sputum cultures were taken which did not reveal any organisms. Pt's secretions decreased and his feeds were reinstated at low rate and increased to goal per protocol. Pt was switched to Augmentin 875mg BID PO for another 7 days on and he was seen by respiratory for assessment of oxygen requirement (does not need any oxygen). Feeds currently are Jevity 1.5 with 20cc/hr with titration of 10cc per 2hr interval for goal of 40cc/hr with 35cc water flushes to continue. Minutes to complete discharge: 35 Discharge Summary Problems reviewed: Yes Reason For Visit: PNEUMONIA Current Active Problems Hyponatremia (Acute) Pneumonia (Acute) Rhabdomyolysis (Acute) Sepsis (Acute) Condition: Improved - Instructions Diet, Activity, Other Instructions: You were here for pneumonia related to aspiration. We treated you with antibiotics MEDICATIONS: Continue with all the medications as below: Eliquis 5mg BID GT Carbamazepine 280mg BID GT Keppra 1500mg BID GT Klonopin 1mg TID GT ASA 81mg GT qdaily Duoneb as needed max QID Pt will continue with 7 more days worth of Augmentin 875mg BID GT --This has been sent to [facility] pharmacy used by [facility] Feeds can continue at 20cc/hr with goal of 40cc/hr with free water flush of 35 on Jevity 1.5 Follow-up: Please follow-up with Dr. Mayorga at the facility Referrals: Bernardo Mayorga Jr [Non Staff, Medical] - Disposition: [facility] HOME FACILITY - Home Medications Comprehensive Discharge Medication List: Ambulatory Orders Carbamazepine [Tegretol -] 280 mg GT BID 03/17/18 Cholecalciferol (Vitamin D3) [Vitamin D3] 2,000 unit GT DAILY 03/17/18 Omeprazole Magnesium [Prilosec] 20 mg GT DAILY 03/17/18 clonazePAM [KlonoPIN -] 1 mg GT TID 03/17/18 Budesonide [Pulmicort 0.5 mg Nebulizer -] 1 neb NEB BID 07/12/18 Diazepam [Diastat Acudial] 20 mg RC PRN PRN 07/12/18 Ipratropium/Albuterol Sulfate [Iprat-Albut 0.5-3(2.5) mg/3 ml] 3 ml IH QID PRN 07/12/18 levETIRAcetam [Keppra Oral Solution -] 1,500 mg GT BID cup 10/06/18 Baclofen 20 mg GT ASDIR 03/08/19 Acetaminophen Oral Solution [Tylenol 160mg/5mL Oral Solution -] 480 mg PO Q6H Apixaban [Eliquis] 5 mg GT BID 05/14/19 Aspirin [ASA -] 81 mg GT DAILY 05/21/19 Tamsulosin HCl [Flomax] 0.4 mg GT DAILY 05/21/19 This patient is new to me today: No Emergency Visit: Yes ED Registration Date: 05/21/19 Care time: The patient presented to the Emergency Department on the above date and was hospitalized for further evaluation of their emergent condition. Critical Care patient: No - Discharge Referral Referred to [facility] No ATTENDING PHYSICIAN STATEMENT I saw and evaluated the patient. I reviewed the resident's note and discussed the case with the resident. I agree with the resident's findings and plan as documented. SUBJECTIVE: OBJECTIVE: ASSESSMENT AND PLAN:
[2019-05-26 15:37] VITALS: BP 92/54; PULSE 76; TEMP 98.1
[2019-05-26] MEDS ORDERED: AMOX TR/POT CLAV 875MG/125MG TABLETS (FP) PO SCH (17:30)
--- NOTE | 2019-05-26 18:00 | PN ---
Progress Note, Physician History of Present Illness: Pt seen and examined at bedside. He appears comfortable. - Current Medication List Current Medications: Active Medications Acetaminophen (Tylenol Oral Solution -) 480 mg PEG Q6H PRN PRN Reason: FEVER Albuterol Sulfate (Ventolin 0.083% Nebulizer Soln -) 1 amp NEB Q4H PRN PRN Reason: SHORT OF BREATH/WHEEZING Last Admin: 05/25/19 17:45 Dose: 1 amp Albuterol/Ipratropium (Duoneb -) 1 amp NEB RQID [facility] Last Admin: 05/26/19 11:40 Dose: 1 amp Amoxicillin/Clavulanate Potassium (Augmentin - 875mg Tablet) 1 tab PO BID@0800, 1730 [facility] Stop: 06/02/19 17:29 Last Admin: 05/26/19 17:22 Dose: 1 tab Apixaban (Eliquis -) 5 mg PEG BID [facility] Last Admin: 05/26/19 09:59 Dose: 5 mg Aspirin (Asa -) 81 mg GT DAILY [facility] Last Admin: 05/26/19 09:59 Dose: 81 mg Baclofen (Lioresal -) 20 mg GT 0000,1800 [facility] Last Admin: 05/26/19 17:22 Dose: 20 mg Budesonide (Pulmicort 0.5 Mg Nebulizer -) 1 amp NEB RBID [facility] Last Admin: 05/26/19 07:40 Dose: 1 amp Carbamazepine (Carbamazepine) 280 mg GT BID [facility] Last Admin: 05/26/19 10:00 Dose: 280 mg Clonazepam (Klonopin -) 1 mg GT TID [facility] Last Admin: 05/26/19 14:12 Dose: 1 mg Levetiracetam (Keppra Oral Solution -) 1,500 mg GT BID [facility] Last Admin: 05/26/19 10:00 Dose: 1,500 mg Potassium Chloride (Potassium Chloride Oral Liquid) 20 meq GT BID [facility] Last Admin: 05/26/19 10:00 Dose: 20 meq Ranitidine HCl (Zantac Oral Solution -) 150 mg GT BID [facility] Last Admin: 05/26/19 10:00 Dose: 150 mg - Objective Vital Signs: Vital Signs Temperature 98.1 F 05/26/19 14:00 Pulse Rate 76 05/26/19 14:00 Respiratory Rate 20 05/26/19 14:00 Blood Pressure 92/54 L 05/26/19 14:00 O2 Sat by Pulse Oximetry (%) 95 05/26/19 12:51 Constitutional: Yes: Calm Eyes: Yes: Conjunctiva Clear HENT: Yes: Atraumatic Cardiovascular: Yes: S1, S2 Respiratory: Yes: CTA Bilaterally Gastrointestinal: Yes: Soft, Other (peg) Genitourinary: Yes: Incontinence Musculoskeletal: Yes: Muscle Weakness Edema: No Neurological: Yes: Pre-Existing Deficit Labs: CBC, BMP 05/25/19 09:05 05/26/19 07:33 INR, PTT INR 1.30 (0.83-1.09) H 05/21/19 05:00 Problem List - Problems (1) Hyponatremia Code(s): E87.1 - HYPO-OSMOLALITY AND HYPONATREMIA (2) Rhabdomyolysis Code(s): M62.82 - RHABDOMYOLYSIS (3) Pneumonia Code(s): J18.9 - PNEUMONIA, UNSPECIFIED ORGANISM (4) Asthma Code(s): J45.909 - UNSPECIFIED ASTHMA, UNCOMPLICATED (5) Cerebral palsy Code(s): G80.9 - CEREBRAL PALSY, UNSPECIFIED Assessment/Plan Current Medications Generic Name Dose Route Start Last Admin Trade Name Freq PRN Reason Stop Dose Admin Acetaminophen 480 mg 05/24/19 17:57 Tylenol Oral Solution - PEG Q6H PRN FEVER Albuterol Sulfate 1 amp 05/22/19 11:24 05/25/19 17:45 Ventolin 0.083% Nebulizer Soln - NEB 1 amp Q4H PRN Administration SHORT OF BREATH/WHEEZING Albuterol/Ipratropium 1 amp 05/22/19 12:00 05/26/19 11:40 Duoneb - NEB 1 amp RQID [facility] Administration Amoxicillin/Clavulanate Potassium 1 tab 05/26/19 17:30 05/26/19 17:22 Augmentin - 875mg Tablet PO 06/02/19 17:29 1 tab BID@0800,1730 [facility] Administration Apixaban 5 mg 05/22/19 22:00 05/26/19 09:59 Eliquis - PEG 5 mg BID [facility] Administration Aspirin 81 mg 05/21/19 13:00 05/26/19 09:59 Asa - GT 81 mg DAILY [facility] Administration Baclofen 20 mg 05/21/19 18:00 05/26/19 17:22 Lioresal - GT 20 mg 0000,1800 [facility] Administration Budesonide 1 amp 05/21/19 13:12 05/26/19 07:40 Pulmicort 0.5 Mg Nebulizer - NEB 1 amp RBID [facility] Administration Carbamazepine 280 mg 05/21/19 14:00 05/26/19 10:00 Carbamazepine GT 280 mg BID [facility] Administration Clonazepam 1 mg 05/21/19 14:00 05/26/19 14:12 Klonopin - GT 1 mg TID [facility] Administration Levetiracetam 1,500 mg 05/21/19 13:00 05/26/19 10:00 Keppra Oral Solution - GT 1,500 mg BID [facility] Administration Potassium Chloride 20 meq 05/26/19 10:00 05/26/19 10:00 Potassium Chloride Oral Liquid GT 20 meq BID [facility] Administration Ranitidine HCl 150 mg 05/21/19 13:00 05/26/19 10:00 Zantac Oral Solution - GT 150 mg BID [facility] Administration Impression 1. hyponatremia 2. rhabdo - mild 3. fever 4. cerebral palsy 5. developemental delay 6. epilepsy 7. scoliosis with repair 8. lactic acidosis 9. hypokalemia Plan - replace potassium - monitor lytes - cont feeds - no fevers - pt tolerating feeds - will follow prn
[2019-05-31 10:47] VITALS: BMI 22.1
== END 2019-05-26 18:11 | disposition home or self-care (01) | DRG 720 ==
LOC: JER 02:25 → JERBED 10:24 → J8W 12:36
PROVIDERS: ADMIT Internal Medicine; ATTEND Hospitalist
PROC: 3E0G76Z Introduction of Nutritional Substance into Upper GI, Via Natural or Artificial Opening (ICD-10-PCS; principal; 2019-05-23)
DX: A41.9 Sepsis, unspecified organism (principal); J69.0 Pneumonitis due to inhalation of food and vomit; H47.619 Cortical blindness, unspecified side of brain; R53.2 Functional quadriplegia; Q02 Microcephaly; T17.590A Other foreign object in bronchus causing asphyxiation, initial encounter; E87.1 Hypo-osmolality and hyponatremia; Z93.1 Gastrostomy status; G80.0 Spastic quadriplegic cerebral palsy; R13.10 Dysphagia, unspecified; F73 Profound intellectual disabilities; E87.2 Acidosis; M62.82 Rhabdomyolysis; E55.9 Vitamin D deficiency, unspecified; G40.909 Epilepsy, unspecified, not intractable, without status epilepticus; Z86.718 Personal history of other venous thrombosis and embolism; J45.909 Unspecified asthma, uncomplicated; R94.31 Abnormal electrocardiogram [ECG] [EKG]; E87.6 Hypokalemia; X58.XXXA Exposure to other specified factors, initial encounter; Y93.9 Activity, unspecified; Y92.89 Other specified places as the place of occurrence of the external cause; Y99.8 Other external cause status
CPT/HCPCS: 36415; 36600; 71045-TC-FY; 71250-TC; 74176-TC; 80048; 80053; 81003; 82550; 82553; 82803; 83605; 83735; 83880; 83930; 83935; 84100; 84300; 84484; 85025; 85027; 85610; 85651; 85730; 86140; 87040; 87070; 87086; 87205; 87633; 87899; 94640; 94761; 99285-25; J0475; J7030

== ENCOUNTER 2019-06-06 09:49 | Inpatient (IN) | payer OTHER ==
[2019-06-06 10:06] VITALS: BMI 20.2
[2019-06-06] MEDS ORDERED: SODIUM CHLORIDE 1,361 ML IV ONE (10:12)
[2019-06-06] MEDS ORDERED: ACETAMINOPHEN 1000 MG/100 ML VIAL (NON FORMULARY) IVPB ONE (10:13)
--- NOTE | 2019-06-06 10:24 | PDOC ---
History of Present Illness - General Chief Complaint: SIRS, Suspected/Possible Stated Complaint: Shortness of Breath History Source: Group Home Records, Old Records Exam Limitations: Physical Impairment - History of Present Illness Initial Comments: 06/06/19 10:23 28y M with PMH of MR, CP with Spastic quadriparesis, Microcephaly, Seizure d/o, cortical blindness, Asthma, scoliosis s/p repair (07/2006), Dysphagia, hyponatremia, s/p G-tube BIBA from [facility] for tachypnea and fever. Patient was found to be tachycardic to the 160s, temperature of 100.6, tachypneic and saturating at 93% NC. Previous blood culture grew Klebsiella pneumoniae. Aide at bedside who says she knows patient but does not know what happened this morning. Has not seen patient vomit. Past History - Past Medical History Allergies/Adverse Reactions: Allergies Allergy/AdvReac Type Severity Reaction Status Date / Time Beef Containing Products Allergy Unknown Verified 06/06/19 10:04 erythromycin base Allergy Verified 06/06/19 10:04 phenobarbital Allergy Verified 06/06/19 10:04 venom-honey bee Allergy Verified 06/06/19 10:04 [bee venom (honey bee)] Home Medications: Ambulatory Orders Carbamazepine [Tegretol -] 280 mg GT BID 03/17/18 Cholecalciferol (Vitamin D3) [Vitamin D3] 2,000 unit GT DAILY 03/17/18 Omeprazole Magnesium [Prilosec] 20 mg GT DAILY 03/17/18 clonazePAM [KlonoPIN -] 1 mg GT TID 03/17/18 Budesonide [Pulmicort 0.5 mg Nebulizer -] 1 neb NEB BID 07/12/18 Diazepam [Diastat Acudial] 20 mg RC PRN PRN 07/12/18 Ipratropium/Albuterol Sulfate [Iprat-Albut 0.5-3(2.5) mg/3 ml] 3 ml IH QID PRN 07/12/18 levETIRAcetam [Keppra Oral Solution -] 1,500 mg GT BID cup 10/06/18 Baclofen 20 mg GT ASDIR 03/08/19 Acetaminophen Oral Solution [Tylenol 160mg/5mL Oral Solution -] 480 mg GT Q6H Apixaban [Eliquis] 5 mg GT BID 05/14/19 Aspirin [ASA -] 81 mg GT DAILY 05/21/19 Tamsulosin HCl [Flomax] 0.4 mg GT DAILY 05/21/19 Amox-Tr/K Cl [Augmentin 875-125mg Tablet -] 1 tab GT BID@0800,1730 06/06/19 Anemia: No Asthma: Yes Cancer: No Cardiac Disorders: No CVA: No COPD: Yes (asthma, aspiration pnuemonia and respiratory distress) CHF: No Dementia: Yes (mental retardation) Diabetes: No GI Disorders: Yes (dysphagia, s/p peg insertion) Disorders: Yes (left testicular torsion, scrotal pain) HTN: No Hypercholesterolemia: No Liver Disease: No Psychiatric Problems: (hyponatremia (due to meds)) Seizures: Yes Thyroid Disease: No - Surgical History Abdominal Surgery: No Appendectomy: No Cardiac Surgery: No Cholecystectomy: No GI Surgery: Yes (G- TUBE) Lung Surgery: No Neurologic Surgery: Yes (scoliosis w/ mcelroy rods) Orthopedic Surgery: (Left Hip Osteotomy) - Immunization History Td Vaccination: Yes TDAP Vaccination: Yes Immunization Up to Date: Yes - Psycho Social/Smoking Cessation Hx Smoking History: Never smoked Have you smoked in the past 12 months: No Number of Cigarettes Smoked Daily: 0 Cigars Per Day: 0 Hx Alcohol Use: No Drug/Substance Use Hx: No Substance Use Type: None Hx Substance Use Treatment: No Review of Systems - Review of Systems Able to Perform ROS?: No *Physical Exam - Vital Signs Last Vital Signs Temp Pulse Resp BP Pulse Ox 100.8 F H 150 H 32 H 126/86 99 06/06/19 10:15 06/06/19 10:15 06/06/19 10:04 06/06/19 10:04 06/06/19 10:11 - Physical Exam General Appearance: Yes: Thin, Other (contracted, microcephaly, diaphoretic) HEENT: positive: EOMI, SILVESTRE (sluggish to react), Pharynx Normal Neck: positive: Trachea midline, Supple. negative: Lymphadenopathy (R), Lymphadenopathy (L) Respiratory/Chest: positive: Crackles, Rhonchi. negative: Stridor, Wheezing Cardiovascular: positive: S1, S2, Tachycardia. negative: Edema, JVD, Murmur Vascular Pulses: Dorsalis-Pedis (R): 2+, Doralis-Pedis (L): 2+ Gastrointestinal/Abdominal: positive: Normal Bowel Sounds, Soft. negative: Tender Musculoskeletal: positive: Other (contracted upper extremities. spontaneously moving lower extremities). negative: CVA Tenderness Extremity: positive: Normal Capillary Refill. 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 vitals: tachycardic, normotensive, tachypneic, febrile. ddx includes but not limited to pna, uti, dysrhythmia. low suspicion for pe given fever and history of pna. pt could have aspirated. sepsis w/u. 30cc/kg fluids, ofirmev. labs show no leukocytosis. cxr does not show consolidations or infiltrates however limited due to AP view only. lact 2.2 no acidosis, all other labs wnl. vanc/zosyn. hr in the 80s after fluids. will admit for pna. accepted by hospitalist. Discharge - Discharge Information Problems reviewed: Yes Clinical Impression/Diagnosis: PNA (pneumonia) Qualifiers: Pneumonia type: due to unspecified organism Laterality: unspecified laterality Lung location: unspecified part of lung Qualified Code(s): J18.9 - Pneumonia, unspecified organism Sepsis Qualifiers: Sepsis type: sepsis due to unspecified organism Sepsis acute organ dysfunction status: unspecified Qualified Code(s): A41.9 - Sepsis, unspecified organism Condition: Stable - Admission Yes - Follow up/Referral - Patient Discharge Instructions - Post Discharge Activity
[2019-06-06 10:40] LABS: PH,URINE 8.5 (5.0-8.0); URINE APPEARANCE CLEAR; URINE BILIRUBIN NEGATIVE (NEGATIVE); URINE COLOR YELLOW; URINE GLUCOSE (UA) NEGATIVE (NEGATIVE); URINE KETONE NEGATIVE (NEGATIVE); URINE LEUK ESTERASE NEGATIVE (NEGATIVE); URINE NITRITE NEGATIVE (NEGATIVE); URINE PROTEIN NEGATIVE (NEGATIVE); URINE UROBILINOGEN 0.2 mg/dL (0.2-1.0)
[2019-06-06] MEDS ORDERED: PIPERACILLIN/TAZOB 3.375 GM 3.375 GM in DEXTROSE 5%-WATER - 50 ML IVPB ONE (10:52)
[2019-06-06] MEDS ORDERED: ACETAMINOPHEN INJECTION 100 ML IVPB ONE (10:53)
[2019-06-06] MEDS ORDERED: VANCOMYCIN 750 MG in DEXTROSE 5%-WATER - 150 ML IVPB ONE (11:00)
[2019-06-06] MEDS ORDERED: VANCOMYCIN 1 GRAM (PRE-DOCKED) 1,000 MG/250 ML BAG IVPB ONE (11:14)
[2019-06-06] MEDS ORDERED: PIPERACILLIN/TAZOB 3.375 GM 3.375 GM/50 ML BAG IVPB ONE ×2 (11:14→18:12)
[2019-06-06 11:24] LABS: VENOUS PC02 40.3 mmHg (38-52); VENOUS PH 7.44 (7.31-7.41); VENOUS PO2 58.4 mmHg (28-48)
[2019-06-06 11:26] LABS: BASO % 0.3 % (0-2.0); EOS % 0.7 % (0-4.5); HEMATOCRIT 38.3 % (35.4-49); HEMOGLOBIN 13.1 GM/dL (11.7-16.9); LYMPH % 21.4 % (8-40); MCH 29.6 pg (25.7-33.7); MCHC 34.2 g/dl (32.0-35.9); MEAN CELL VOLUME 86.5 fl (80-96); MEAN PLT VOLUME 7.1 fl (7.5-11.1); MONO % 8.9 % (3.8-10.2); NEUT % 68.7 % (42.8-82.8); PLATELET COUNT 408 K/MM3 (134-434); RBC 4.42 M/mm3 (4.00-5.60); RDW 14.5 % (11.9-15.9); WHITE BLOOD COUNT 7.6 K/mm3 (4.0-10.0)
--- NOTE | 2019-06-06 11:29 | PDOC ---
Attending Attestation - Resident Resident Name: Tri Rayo - ED Attending Attestation I have performed the following: I have examined & evaluated the patient, The case was reviewed & discussed with the resident, I agree w/resident's findings & plan, Exceptions are as noted - HPI HPI: 06/06/19 11:27 28y M with PMH of Intellectual Disabilty, CP with Spastic quadriparesis, Microcephaly, Seizure d/o, cortical blindness, Asthma, scoliosis s/p repair (2005), Dysphagia, hyponatremia, s/p G-tube BIBA from [facility] for SOB. Pt is unable to contribute history due to severe developmental delay. Pt was noted at [place] to have fever and SOB. Patient was found to be tachycardic to the 160s, febrile, and hypoxic to 80s. - Physicial Exam PE: 06/06/19 11:28 GENERAL: Awake, alert EYES: PERRLA, clear conjunctiva NOSE: Nose is clear without discharge EARS: EACs and TMs are normal THROAT: Moist mucosa, oropharynx is clear without erythema or exudates, NECK: Supple, no adenopathy, no meningismus CHEST: + rhonchi HEART: Regular rhythm, normal S1 and S2, no murmurs ABDOMEN: Soft and nontender with normal bowel sounds, no organomegaly, no mass, no rebound, no guarding EXTREMITIES: Normal NEURO: + bilateral contractures SKIN: Unremarkable, no rash, no swelling, no bruising, no signs of injury - Critical Care Time Total Critical Care Time: 60 Critical Care Statement: The care of this patient involved high complexity decision making to prevent further life threatening deterioration of the patient 's condition and/or to evaluate & treat vital organ system(s) failure or risk of failure. - Medical Decision Making 06/06/19 11:28 28 M with fever, hypoxia, SOB. Likely PNA given h/o recurrent PNAs. - Labs, cultures - CXR, UA - IVF, tylenol, abx
[2019-06-06 11:47] LABS: INR 1.23 (0.83-1.09); PROTHROMBIN TIME (PATIENT) 14.6 SEC (9.7-13.0)
[2019-06-06 11:50] LABS: ACTIVATED PTT 37.3 SECONDS (25.2-36.5)
[2019-06-06 12:02] LABS: ALBUMIN 3.1 g/dl (3.4-5.0); BILIRUBIN,TOTAL 0.1 mg/dL (0.2-1); BLOOD UREA NITROGEN 3.7 mg/dL (7-18); CALCIUM 8.5 mg/dL (8.5-10.1); CREATININE 0.4 mg/dL (0.55-1.3); POTASSIUM 3.6 mmol/L (3.5-5.1); TOT PROT 7.1 g/dl (6.4-8.2)
--- NOTE | 2019-06-06 12:19 | EKG ---
Test Reason : Blood Pressure : / mmHG Vent. Rate : 113 BPM Atrial Rate : 113 BPM P-R Int : 150 ms QRS Dur : 088 ms QT Int : 352 ms P-R-T Axes : 027 120 012 degrees QTc Int : 482 ms POOR DATA QUALITY, INTERPRETATION MAY BE ADVERSELY AFFECTED SINUS TACHYCARDIA RIGHT AXIS DEVIATION RIGHT VENTRICULAR HYPERTROPHY WITH REPOLARIZATION ABNORMALITY INFERIOR INFARCT (CITED ON OR BEFORE 11-MAR-2019) ABNORMAL ECG WHEN COMPARED WITH ECG OF 14-MAY-2019 10:18, T WAVE INVERSION NOW EVIDENT IN INFERIOR LEADS Confirmed by Cristo Srivastava ([id number]) on 06/06/2019 12:18:52 PM Referred By: Confirmed By:Cristo Srivastava
[2019-06-06] MEDS ORDERED: HEPARIN NA (PORCINE) 5,000 UNITS/ML 1ML VIAL SQ SCH (14:00)
[2019-06-06] MEDS ORDERED: ACETAMINOPHEN 1000 MG/100 ML VIAL (NON FORMULARY) IVPB PRN (14:28)
--- NOTE | 2019-06-06 15:18 | HP ---
Addendum entered and electronically signed by Marcellus Parada, RESIDENT 06/06/19 19:27: EDIT: PCP: Dr. Mayorga CC: Hypoxia Plan include: Seizure precautions Reviewed Echo 02/2019: EF 60% Original Note: <Marcellus Parada - Last Filed: 06/06/19 19:26> CHIEF COMPLAINT: PCP: HISTORY OF PRESENT ILLNESS: 28yo M with developmental disability, seizur disorder, and chronic aspiration related to dysphagia who presents from [facility] due to fever and acute respiratory distress. Pt was recently discharged 10/01 to likely aspiraiton pneumonia and was treated with Zosyn at that time. In the interim pt was in [facility] until today where he was noted to have respiratory distress and hypoxia. Pt was placed on 4LNC with resulting increase in saturation and sent to ER for further investigation. In the ER pt was increased to 5LNC and was given Vancomycin and Zosyn. In addition pt was noted to have LA of 2.2 without any leukocytosis and was febrile alongside tachycardia. During my exam pt remained on oxygen, however looked comfortable without any tachpnea or distress noted. HPI limited due to developmental delay and nonverbal state. PAST MEDICAL HISTORY: Microcephaly Seizure disorder Asthma Quadriparesis Chronic hyponatremia Dysphagia s/p G-Tube Chronic microaspirations PAST SURGICAL HISTORY: Scoliosis repair (07/2006) G-Tube insertion Social History: Resient of [facility] Allergies Beef Containing Products Allergy (Unknown, Verified 06/06/19 10:04) erythromycin base Allergy (Verified 06/06/19 10:04) phenobarbital Allergy (Verified 06/06/19 10:04) venom-honey bee [bee venom (honey bee)] Allergy (Verified 06/06/19 10:04) HOME MEDICATIONS: Home Medications Medication Instructions Recorded Carbamazepine [Tegretol -] 280 mg GT BID 03/17/18 Cholecalciferol (Vitamin D3) 2,000 unit GT DAILY 03/17/18 [Vitamin D3] Omeprazole Magnesium [Prilosec] 20 mg GT DAILY 03/17/18 clonazePAM [KlonoPIN -] 1 mg GT TID 03/17/18 Budesonide [Pulmicort 0.5 mg 1 neb NEB BID 07/12/18 Nebulizer -] Diazepam [Diastat Acudial] 20 mg RC PRN PRN 11/13/18 Ipratropium/Albuterol Sulfate 3 ml IH QID PRN 07/12/18 [Iprat-Albut 0.5-3(2.5) mg/3 ml] levETIRAcetam [Keppra Oral 1,500 mg GT BID cup 10/06/18 Solution -] Baclofen 20 mg GT ASDIR 03/08/19 Acetaminophen Oral Solution 480 mg GT Q6H 05/14/19 [Tylenol 160mg/5mL Oral Solution -] Apixaban [Eliquis] 5 mg GT BID 05/14/19 Aspirin [ASA -] 81 mg GT DAILY 05/21/19 Tamsulosin HCl [Flomax] 0.4 mg GT DAILY 05/21/19 Amox-Tr/K Cl [Augmentin 875-125mg 1 tab GT BID@0800,1730 06/06/19 Tablet -] REVIEW OF SYSTEMS As per HPI PHYSICAL EXAMINATION Vital Signs - 24 hr 06/06/19 06/06/19 06/06/19 10:04 10:09 10:11 Temperature 100.8 F H Pulse Rate 150 H Pulse Rate [ Apical] Respiratory 32 H Rate Blood Pressure 126/86 Blood Pressure [Right Arm] O2 Sat by Pulse 91 L 100 99 Oximetry (%) 06/06/19 06/06/19 06/06/19 10:15 11:27 11:40 Temperature 100.8 F H 99.4 F Pulse Rate 150 H Pulse Rate [ 118 H 113 H Apical] Respiratory 26 H 32 H Rate Blood Pressure Blood Pressure 122/85 [Right Arm] O2 Sat by Pulse 97 100 Oximetry (%) 06/06/19 13:15 Temperature Pulse Rate Pulse Rate [ 92 H Apical] Respiratory 26 H Rate Blood Pressure Blood Pressure 119/78 [Right Arm] O2 Sat by Pulse 99 Oximetry (%) GEN: NAD, awake, nonverbal HEENT: Microcephaly, MMM, minimal secretions, NC in place Neck: No JVD Lungs: CTA b/l on RA without any accessory muscle use CARD: RRR no murmur ABD: NT/ND, soft, PEG in place without any drainage around site Ext: No edema, contracted Laboratory Results - last 24 hr 06/06/19 06/06/19 06/06/19 10:30 11:00 11:00 WBC 7.6 RBC 4.42 Hgb 13.1 Hct 38.3 MCV 86.5 MCH 29.6 MCHC 34.2 RDW 14.5 Plt Count 408 D MPV 7.1 L Absolute Neuts (auto) 5.2 Neutrophils % 68.7 Lymphocytes % 21.4 D Monocytes % 8.9 Eosinophils % 0.7 Basophils % 0.3 Nucleated RBC % 0 PT with INR INR PTT (Actin FS) VBG pH POC VBG pCO2 POC VBG pO2 VBG HCO3 VBG O2 Sat (Rafa) VBG Base Excess Sodium Potassium Chloride Carbon Dioxide Anion Gap BUN Creatinine Est GFR (CKD-EPI)AfAm Est GFR (CKD-EPI)NonAf Random Glucose Lactic Acid Calcium Total Bilirubin AST ALT Alkaline Phosphatase Troponin I < 0.02 Total Protein Albumin Urine Color Yellow Urine Appearance Clear Urine pH 8.5 H Ur Specific [place] 1.005 L Urine Protein Negative Urine Glucose (UA) Negative Urine Ketones Negative Urine Blood Negative Urine Nitrite Negative Urine Bilirubin Negative Urine Urobilinogen 0.2 Ur Leukocyte Esterase Negative Influenza A (Rapid) Influenza B (Rapid) 06/06/19 06/06/19 06/06/19 11:00 11:00 11:00 WBC RBC Hgb Hct MCV MCH MCHC RDW Plt Count MPV Absolute Neuts (auto) Neutrophils % Lymphocytes % Monocytes % Eosinophils % Basophils % Nucleated RBC % PT with INR INR PTT (Actin FS) VBG pH 7.44 H POC VBG pCO2 40.3 POC VBG pO2 58.4 H VBG HCO3 26.6 VBG O2 Sat (Rafa) 89.4 H VBG Base Excess 2.7 H Sodium 135 L Potassium 3.6 Chloride 101 Carbon Dioxide 26 Anion Gap 8 BUN 3.7 L Creatinine 0.4 L Est GFR (CKD-EPI)AfAm 188.66 Est GFR (CKD-EPI)NonAf 162.78 Random Glucose 108 H Lactic Acid 2.2 H* Calcium 8.5 Total Bilirubin 0.1 L AST 42 H ALT 34 Alkaline Phosphatase 100 Troponin I Total Protein 7.1 Albumin 3.1 L Urine Color Urine Appearance Urine pH Ur Specific [place] Urine Protein Urine Glucose (UA) Urine Ketones Urine Blood Urine Nitrite Urine Bilirubin Urine Urobilinogen Ur Leukocyte Esterase Influenza A (Rapid) Influenza B (Rapid) 06/06/19 06/06/19 11:00 12:20 WBC RBC Hgb Hct MCV MCH MCHC RDW Plt Count MPV Absolute Neuts (auto) Neutrophils % Lymphocytes % Monocytes % Eosinophils % Basophils % Nucleated RBC % PT with INR 14.60 H INR 1.23 H PTT (Actin FS) 37.3 H VBG pH POC VBG pCO2 POC VBG pO2 VBG HCO3 VBG O2 Sat (Rafa) VBG Base Excess Sodium Potassium Chloride Carbon Dioxide Anion Gap BUN Creatinine Est GFR (CKD-EPI)AfAm Est GFR (CKD-EPI)NonAf Random Glucose Lactic Acid Calcium Total Bilirubin AST ALT Alkaline Phosphatase Troponin I Total Protein Albumin Urine Color Urine Appearance Urine pH Ur Specific [place] Urine Protein Urine Glucose (UA) Urine Ketones Urine Blood Urine Nitrite Urine Bilirubin Urine Urobilinogen Ur Leukocyte Esterase Influenza A (Rapid) Negative Influenza B (Rapid) Negative Active Medications Acetaminophen (Ofirmev Injection -) 750 mg IVPB Q6H PRN PRN Reason: FEVER Aspirin (Asa -) 81 mg GT DAILY [facility] Carbamazepine (Carbamazepine) 280 mg GT BID [facility] Clonazepam (Klonopin -) 1 mg GT TID [facility] Diazepam (Diastat Rectal Gel -) 20 mg RC DAILY PRN PRN Reason: Seizures occuring 5 min + Heparin Sodium (Porcine) (Heparin -) 5,000 unit SQ TID [facility] Last Admin: 06/06/19 14:43 Dose: 5,000 unit Sodium Chloride (Normal Saline -) 1,000 mls @ 100 mls/hr IV ASDIR [facility] Last Admin: 06/06/19 15:28 Dose: 100 mls/hr Piperacillin Sod/Tazobactam (Sod 3.375 gm/ Dextrose) 50 mls @ 100 mls/hr IVPB Q8H-IV ALEKSANDR; Protocol Piperacillin Sod/Tazobactam (Sod 3.375 gm/ Dextrose) 50 mls @ 100 mls/hr IVPB Q8H-IV ALEKSANDR Stop: 06/07/19 10:29 Last Admin: 06/06/19 18:21 Dose: 100 mls/hr Levetiracetam (Keppra Oral Solution -) 1,500 mg GT BID [facility] ASSESSMENT/PLAN: Sepsis 2/2 to URI R/o Aspiration PNA HTN Cerebral palsy with functional quadriplegia Seizure disorder Popliteal DVT (02/2019) --Given septic picture will cover with empiric Zosyn for now --ID consult --Trend Lactate --IVF: NS@100cc/hr --Ordered influenza rapid A+B; to f/u --Respiratory virus panel to f/u --CXR reviewed without over infiltrates --SpO2 >90% titrated if oxygen needed --Albuterol Neb PRN q4h for wheezing/distress --Continue home medications: Keppra 1500mg GT BID Diazepam MA PRN for breakthrough seizures Klonopin 1mg GT TID Carbamazepine 280mg GT BID ASA 81mg GT daily Eliquis 5mg BID PEG FEN: Fluids: NS@100cc/hr Electrolye abnormalities: Mild hypoNa Nutrition: Holding feeds for now PPX: DVT - Aleady on Eliquis Dispo: Admit M/S Case discussed with Dr. Nadia Parada, DO - IM PGY-3 Family Medical History Family History: Unable to Obtain Visit type - Emergency Visit Emergency Visit: Yes ED Registration Date: 06/06/19 Care time: The patient presented to the Emergency Department on the above date and was hospitalized for further evaluation of their emergent condition. - New Patient This patient is new to me today: Yes Date on this admission: 06/06/19 - Critical Care Critical Care patient: No ATTENDING PHYSICIAN STATEMENT I saw and evaluated the patient. I reviewed the resident's note and discussed the case with the resident. I agree with the resident's findings and plan as documented. SUBJECTIVE: OBJECTIVE: ASSESSMENT AND PLAN: <Rob Zuniga - Last Filed: 06/07/19 11:05> Attending Addendum I have seen and examined the indicated patient independently/along with the resident team. I have personally verified all gaming exam findings and historical components. I have personally interpreted all diagnostics indicated per todays orders and reviewed interpretation of indicated subspecialty services. This patient meets a high level of medical complexity and warrants inpatient admission to avoid decompensation and worsening of the indicated illness. 60 minutes have been spent in the completion of this admission. S: Agree with historical findings as outlined in resident documentation regarding history of present illness. Patient cannot provide history. Technically septic due to tachycardia, fever with presumed pulmonary source as increased O2 requirement. Admitting for acute hypoxic RF r/o pneumonia. 10 system ROS cannot be completed secondary to underlying clinical condition. Past Medical History and Past Surgical Histories reviewed in depth; per resident note Social history is reviewed; per resident note; Complete family history is reviewed with patient and is non-pertinent aside from the indicated issues outlined above. No sudden history of cardiac . O: All vital signs reviewed per ER records and are as per EMR Mild distress, tracks and responds to verbal stimuli, Resting in bed; mentating at baseline per prior encounters, supplemental O2 noted. AT EOMI PERRLA Neck supple, trachea midline, no minh LN Tachycardic s1/2 Lungs without focal consolidation and scattered rales with difficult respiratory effort 2/2 clinical condition; w/ sym expansion NT ND +BS No skin breakdown or rashes noted CN2-12 wnl, no new focal deficits noted Muscle tone normal, no deficits in motor function or strength noted Not agitated, limited psychiatric exam 2/2 underling clinical condition EKG reviewed Preliminary CXR reviewed A/P: Patient seen, examined, and discussed in depth with resident team. Problem list reviewed per resident note and agree with their discussion aside from as supplemented by myself below. Problems include: -Acute hypoxic respiratory failure (r/o aspiration PNA vs. microaspiration causing pneumonitis; in the setting of readmission with recent viral URI) -Sepsis (Hydrated, cultured, Zosyn with ID consult. As worsening hypoxia check flu/viral pannel, legionella/pnc, sputum cx. Lactate did trend down) -Hx Seizure Disorder (No seizure activity noted; continue to monitor on the floor and continue all home medications as prescribed) -Hx MR/CP/Functional Quadraplegia-Unchanged from prior encounters Further plan per resident note. Dispo is pending ID clearance and weaning from additional supplemental O2 as well as resoltion of sepsis Continue to monitor on the floor; agree with plan as documented per resident note. ATTENDING PHYSICIAN STATEMENT I saw and evaluated the patient. I reviewed the resident's note and discussed the case with the resident. I agree with the resident's findings and plan as documented. SUBJECTIVE: OBJECTIVE: ASSESSMENT AND PLAN:
[2019-06-06] MEDS: SODIUM CHLORIDE 1,000 ML IV SCH ×2 (15:28→22:10)
[2019-06-06] MEDS ORDERED: INSULIN (NOVOLOG) ASPART 100 UNITS/ML 10ML VIAL ONE (15:48)
[2019-06-06 18:01] LABS: N-TERMINAL BNP 47.4 pg/ml (5-125)
[2019-06-06] MEDS: PIPERACILLIN/TAZOB 3.375 GM 3.375 GM in DEXTROSE 5%-WATER - 50 ML IVPB SCH (18:21)
[2019-06-06] MEDS: carBAMazepine 100 MG/5 ML UNIT-DOSE CUP GT SCH (22:14)
[2019-06-06] MEDS: levETIRAcetam 500 MG/5 ML ORAL SOLUTION (UNIT-DOSE CUPS) GT SCH (22:14)
[2019-06-06] MEDS: APIXABAN 5 MG TABLET PEG SCH (22:17)
[2019-06-06] MEDS: clonazePAM 0.5 MG TABLET GT SCH (22:18)
[2019-06-07] MEDS ORDERED: PIPERACILLIN/TAZOBACTAM 3.375 GM VIAL IVPB ONE ×3 (02:15→17:27)
[2019-06-07] MEDS ORDERED: DEXTROSE 5%-WATER - 50 ML IVPB ONE ×3 (02:15→17:27)
[2019-06-07] MEDS: PIPERACILLIN/TAZOB 3.375 GM 3.375 GM in DEXTROSE 5%-WATER - 50 ML IVPB SCH ×4 (02:26→18:01)
[2019-06-07] MEDS: clonazePAM 0.5 MG TABLET GT SCH ×3 (06:41→22:08)
[2019-06-07 08:18] LABS: HEMATOCRIT 36.1 % (35.4-49); HEMOGLOBIN 11.9 GM/dL (11.7-16.9); MCH 29.4 pg (25.7-33.7); MCHC 32.8 g/dl (32.0-35.9); MEAN CELL VOLUME 89.5 fl (80-96); MEAN PLT VOLUME 7.7 fl (7.5-11.1); PLATELET COUNT 344 K/MM3 (134-434); RBC 4.03 M/mm3 (4.00-5.60); RDW 14.5 % (11.9-15.9); WHITE BLOOD COUNT 8.2 K/mm3 (4.0-10.0)
[2019-06-07 08:46] LABS: BLOOD UREA NITROGEN 3.7 mg/dL (7-18); CALCIUM 8.1 mg/dL (8.5-10.1); CREATININE 0.3 mg/dL (0.55-1.3); POTASSIUM 3.7 mmol/L (3.5-5.1)
--- NOTE | 2019-06-07 10:11 | PN ---
Progress Note (short form) - Note Progress Note: HPI: No acute events. Pt comfortable. HPI limited Vital Signs Temperature 98.4 F 06/07/19 10:15 Pulse Rate 87 06/07/19 10:15 Respiratory Rate 18 06/07/19 10:15 Blood Pressure 100/55 L 06/07/19 10:15 O2 Sat by Pulse Oximetry (%) 100 06/06/19 20:30 GEN: NAD, awake, nonverbal HEENT: Microcephaly, MMM, minimal secretions, NC in place Neck: No JVD Lungs: CTA b/l on RA without any accessory muscle use CARD: RRR no murmur ABD: NT/ND, soft, PEG in place without any drainage around site Ext: No edema, contracted CBC, BMP 06/07/19 06:55 06/07/19 06:55 Active Medications Acetaminophen (Ofirmev Injection -) 750 mg IVPB Q6H PRN PRN Reason: FEVER Apixaban (Eliquis -) 5 mg PEG BID [facility] Last Admin: 06/07/19 10:41 Dose: 5 mg Aspirin (Asa -) 81 mg GT DAILY [facility] Last Admin: 06/07/19 10:41 Dose: 81 mg Carbamazepine (Carbamazepine) 280 mg GT BID [facility] Last Admin: 06/07/19 10:43 Dose: 280 mg Clonazepam (Klonopin -) 1 mg GT TID [facility] Last Admin: 06/07/19 06:41 Dose: 1 mg Diazepam (Diastat Rectal Gel -) 20 mg RC DAILY PRN PRN Reason: Seizures occuring 5 min + Sodium Chloride (Normal Saline -) 1,000 mls @ 100 mls/hr IV ASDIR [facility] Last Admin: 06/06/19 22:10 Dose: 100 mls/hr Piperacillin Sod/Tazobactam (Sod 3.375 gm/ Dextrose) 50 mls @ 100 mls/hr IVPB Q8H-IV ALEKSANDR; Protocol Influenza Virus Vaccine Quadrival (Flulaval Quad ) 60 mcg IM .ONCE ONE Stop: 06/07/19 12:01 Levetiracetam (Keppra Oral Solution -) 1,500 mg GT BID [facility] Last Admin: 06/07/19 10:42 Dose: 1,500 mg Microbiology 06/06/19 10:30 Urine - Urine - Catheterized Urine Culture - Final NO GROWTH OBTAINED 06/06/19 11:00 Blood - Peripheral Venous Blood Culture - Preliminary NO GROWTH OBTAINED AFTER 24 HOURS, INCUBATION TO CONTINUE FOR 4 DAYS. 06/06/19 11:00 Blood - Peripheral Venous Blood Culture - Preliminary NO GROWTH OBTAINED AFTER 24 HOURS, INCUBATION TO CONTINUE FOR 4 DAYS. ASSESSMENT/PLAN: Sepsis / to URI R/o Aspiration PNA HTN Cerebral palsy with functional quadriplegia Seizure disorder Popliteal DVT (02/2019) --Given septic picture will cover with empiric Zosyn for now; appreciated ID consult --IVF: NS@100cc/hr --Influenza negative --Respiratory virus panel pending --SpO2 >90% titrated if oxygen needed --Albuterol Neb PRN q4h for wheezing/distress --sputum and legionella ordered --Continue home medications: Keppra 1500mg GT BID Diazepam GA PRN for breakthrough seizures Klonopin 1mg GT TID Carbamazepine 280mg GT BID ASA 81mg GT daily Eliquis 5mg BID PEG FEN: Fluids: NS@100cc/hr Electrolye abnormalities: Nutrition: Holding feeds for now PPX: DVT - Aleady on Eliquis Dispo: Admit M/S Case discussed with Dr. Nadia Parada, DO - IM PGY-3 <Marcellus Parada - Last Filed: 06/07/19 11:57> - Note Progress Note: Attending Addendum I have seen and examined the indicated patient independently/along with the resident team. I have personally verified all gaming exam findings and historical components. I have personally interpreted all diagnostics indicated per todays orders and reviewed interpretation of indicated subspecialty services. This patient meets a high level of medical complexity and warrants inpatient admission to avoid decompensation and worsening of the indicated illness. 60 minutes have been spent in the completion of this admission. S: Agree with historical findings as outlined in resident documentation regarding history of present illness. Patient has negative cultures to date, final results pending. Negative pneumococcal and Legionella antigen. Cannot provide review of systems secondary to underlying medical condition which is chronic. O: Physical exam is essentially unchanged from yesterday. Resting in bed, responds to verbal and tactile stimuli, on 2 L oxygen via nasal cannula, does not appear to be in distress Atraumatic, PERRLA, EOMI Regular rate and rhythm, S1-S2 Lungs with scattered rhonchi and poor respiratory effort; this is his baseline respiratory exam with no focal consolidations noted. Nontender nondistended positive bowel sounds No focal neurologic deficits, cranial nerve exam remains at baseline and intact. Essentially unchanged neurologic exam. Patient is nonagitated, cannot provide full psychiatric assessment due to his underlying clinical condition. No new rashes or skin breakdown noted. Trachea is midline, no minh lymphadenopathy noted. EKG reviewed Preliminary CXR reviewed A/P: Patient seen, examined, and discussed in depth with resident team. Problem list reviewed per resident note and agree with their discussion aside from as supplemented by myself below. Problems include: -Acute hypoxic respiratory failure (r/o aspiration PNA vs. microaspiration causing pneumonitis; in the setting of readmission with recent viral URI. Pending infectious disease consult. No cx growth yet. Legionella and pneumococcus are negative, final culture results pending but the preliminary are negative.) -Sepsis (Resolved with isotonic fluids/abx) -Hx Seizure Disorder (No seizure activity noted; continue to monitor on the floor and continue all home medications as prescribed) -Hx MR/CP/Functional Quadraplegia-Unchanged from prior encounters Further plan per resident note. Continue to monitor on the floor; agree with plan as documented per resident note. <Rob Zuniga - Last Filed: 06/08/19 12:50>
[2019-06-07] MEDS: APIXABAN 5 MG TABLET PEG SCH ×2 (10:41→22:08)
[2019-06-07] MEDS: ASPIRIN 81 MG CHEWABLE TABLETS GT SCH (10:41)
[2019-06-07] MEDS: levETIRAcetam 500 MG/5 ML ORAL SOLUTION (UNIT-DOSE CUPS) GT SCH ×2 (10:42→22:11)
[2019-06-07] MEDS: carBAMazepine 100 MG/5 ML UNIT-DOSE CUP GT SCH ×2 (10:43→22:09)
--- NOTE | 2019-06-07 11:29 | PN ---
Progress Note (short form) - Note Progress Note: ID consult dictated third recent admission for this 28 yo developmentaly disable man from the [facility] started on 05/26 with augmentin at the facility transferred yesterday with temp 100.5, and wheezing, no response to Duonebs currently afebrile +congested with scattered wheeze and rhonchi cxra is clear influenza screen is negative ?aspiration continue zosyn check rsv antigen Problem List - Problems (1) Aspiration pneumonia Code(s): J69.0 - PNEUMONITIS DUE TO INHALATION OF FOOD AND VOMIT (2) Profound developmental delay Code(s): R62.50 - UNSP LACK OF EXPECTED NORMAL PHYSIOL DEV IN CHILDHOOD
[2019-06-07] MEDS ORDERED: FLU VACCINE QUAD 60 MCG/0.5 ML (MDV 19-20) IM ONE (12:00)
[2019-06-07] MEDS: SODIUM CHLORIDE 1,000 ML IV SCH (16:50)
--- NOTE | 2019-06-07 22:55 | CONS ---
INFECTIOUS DISEASE CONSULTATION DATE OF CONSULTATION: DATE OF DICTATION: 06/07/2019 This is a 28-year-old man from [facility], who this is his third admission in the last 1 month. He had an admission in early April for possible pneumonia and had a polymicrobial bacteremia of unclear etiology. He was readmitted again for possible pneumonia from May 21 to May 26. During that admission, he had had increased secretions, and he improved quite rapidly. He was discharged on Augmentin. The aide who is with him reports that he was doing well at [facility] where he lives, which is a home for developmentally disabled people, and he yesterday developed temperature of 100.5 and wheezing. Did not have a good response to DuoNebs and was sent to the emergency room. He is currently afebrile. He sounds quite congested with scattered wheezes and rhonchi. Chest x-ray is clear. He is unable to contribute any history. PAST MEDICAL HISTORY: Notable for profound mental retardation, cerebral palsy with spastic quadriparesis, severe developmental delay, microcephaly, intractable seizures, cortical blindness, asthma, left hip osteotomy, scoliosis, Domenic fundoplication surgery with G-tube insertion, scoliosis repair with Kong rods. He has a history of constipation, vitamin D deficiency, recurrent aspiration pneumonia. During his last admission in April, he had a chest CT that revealed secretions and fluid suspected filling the right main stem bronchus. ALLERGIES: He is allergic to BEEF-CONTAINING PRODUCTS, ERYTHROMYCIN, PHENOBARBITAL, and VENOM OF THE HONEY BEE. MEDICATIONS AT THE PRISON: Include Keppra, Klonopin, Flomax, Prilosec, DuoNebs, Diastat, vitamin D3, Tegretol, Pulmicort, baclofen, Eliquis, and Tylenol. SOCIAL HISTORY: He resides at [facility]. REVIEW OF SYSTEMS: As per HPI. PHYSICAL EXAMINATION: Vital Signs: His temperature is 98.4. His pulse is 87. Blood pressure 100/55. Respiratory rate is 18. General: He is in no distress, but he sounds quite congested. He had a fever of 100.8 on admission. HEENT: He is microcephalic. He does not follow any commands. Lungs: Diffuse rhonchi and wheezes. Heart: Regular rate and rhythm. Abdomen: Soft. He has a G tube. Extremities: Without edema. LABORATORY DATA: White count is 8.2, hemoglobin 11.9, platelets are 344. BUN is 3.7 and creatinine 0.3. Lactic acid was 2.2 on admission; it is now 1.1. LFTs are normal. Urinalysis is negative. His influenza screen is negative. Blood cultures have been sent. Chest x-ray is normal. In summary, this is the third recent admission for this 28-year-old, developmentally disabled man from [facility], who was admitted for: 1. Chest congestion, low-grade fever, and wheezing. He is currently afebrile, with negative influenza screen. This is aspiration or perhaps a viral process. Would continue Zosyn and check RSV antigens. A respiratory virus panel PCR has been sent as well. 2. History of seizure disorder. 3. Developmental disabilities as noted. Further recommendations to follow. FLORINA FLETCHER M.D. ASHLEY/[id number]
[2019-06-08] MEDS ORDERED: PIPERACILLIN/TAZOBACTAM 3.375 GM VIAL IVPB ONE ×3 (01:23→17:50)
[2019-06-08] MEDS ORDERED: DEXTROSE 5%-WATER - 50 ML IVPB ONE ×2 (01:23→17:50)
[2019-06-08] MEDS: PIPERACILLIN/TAZOB 3.375 GM 3.375 GM in DEXTROSE 5%-WATER - 50 ML IVPB SCH ×3 (02:42→18:12)
[2019-06-08] MEDS ORDERED: guaiFENesin 200 MG/10 ML 10 ML UNIT-DOSE CUPS PO ONE (04:46)
[2019-06-08] MEDS ORDERED: ALBUTEROL SO4 0.083% IH SOL 2.5 MG/3 ML VIAL.NEB. NEB ONE (05:27)
[2019-06-08] MEDS: clonazePAM 0.5 MG TABLET GT SCH ×3 (07:05→22:59)
[2019-06-08 09:33] LABS: HEMATOCRIT 36.6 % (35.4-49); HEMOGLOBIN 12.3 GM/dL (11.7-16.9); MCH 29.6 pg (25.7-33.7); MCHC 33.5 g/dl (32.0-35.9); MEAN CELL VOLUME 88.4 fl (80-96); MEAN PLT VOLUME 7.1 fl (7.5-11.1); PLATELET COUNT 360 K/MM3 (134-434); RBC 4.14 M/mm3 (4.00-5.60); RDW 14.8 % (11.9-15.9); WHITE BLOOD COUNT 8.7 K/mm3 (4.0-10.0)
[2019-06-08] MEDS ORDERED: DEXTROSE 5%-WATER - 100 ML IVPB ONE (10:31)
[2019-06-08] MEDS: APIXABAN 5 MG TABLET PEG SCH ×2 (11:09→22:59)
[2019-06-08] MEDS: carBAMazepine 100 MG/5 ML UNIT-DOSE CUP GT SCH ×2 (11:09→23:27)
[2019-06-08] MEDS: ASPIRIN 81 MG CHEWABLE TABLETS GT SCH (11:09)
[2019-06-08] MEDS: levETIRAcetam 500 MG/5 ML ORAL SOLUTION (UNIT-DOSE CUPS) GT SCH ×2 (11:09→22:59)
[2019-06-08] MEDS: ALBUTEROL SO4 0.083% IH SOL 2.5 MG/3 ML VIAL.NEB. NEB PRN ×2 (11:56→20:45)
[2019-06-08] MEDS: SODIUM CHLORIDE 1,000 ML IV SCH (15:29)
[2019-06-08] MEDS ORDERED: PT OWN MED DRAWER 7, Y5N ONE (22:55)
[2019-06-09] MEDS ORDERED: PIPERACILLIN/TAZOBACTAM 3.375 GM VIAL IVPB ONE ×2 (01:05→08:57)
[2019-06-09] MEDS ORDERED: DEXTROSE 5%-WATER - 50 ML IVPB ONE ×2 (01:05→08:58)
[2019-06-09] MEDS: PIPERACILLIN/TAZOB 3.375 GM 3.375 GM in DEXTROSE 5%-WATER - 50 ML IVPB SCH ×2 (01:44→09:49)
[2019-06-09] MEDS: clonazePAM 0.5 MG TABLET GT SCH ×3 (05:16→21:48)
[2019-06-09] MEDS: ASPIRIN 81 MG CHEWABLE TABLETS GT SCH (09:48)
[2019-06-09] MEDS: APIXABAN 5 MG TABLET PEG SCH ×2 (09:48→21:48)
[2019-06-09] MEDS: carBAMazepine 100 MG/5 ML UNIT-DOSE CUP GT SCH ×2 (09:48→21:49)
[2019-06-09] MEDS: levETIRAcetam 500 MG/5 ML ORAL SOLUTION (UNIT-DOSE CUPS) GT SCH ×2 (09:57→21:49)
--- NOTE | 2019-06-09 10:57 | PN ---
Progress Note (short form) - Note Progress Note: HPI: No acute events. Pt comfortable with slight coughing. HPI limited GEN: NAD, awake, nonverbal HEENT: Microcephaly, MMM, minimal secretions, NC in place Neck: No JVD Lungs: CTA b/l on RA without any accessory muscle use CARD: RRR no murmur ABD: NT/ND, soft, PEG in place without any drainage around site Ext: No edema, contracted Active Medications Acetaminophen (Ofirmev Injection -) 750 mg IVPB Q6H PRN PRN Reason: FEVER Apixaban (Eliquis -) 5 mg PEG BID [facility] Last Admin: 06/07/19 10:41 Dose: 5 mg Aspirin (Asa -) 81 mg GT DAILY [facility] Last Admin: 06/07/19 10:41 Dose: 81 mg Carbamazepine (Carbamazepine) 280 mg GT BID [facility] Last Admin: 06/07/19 10:43 Dose: 280 mg Clonazepam (Klonopin -) 1 mg GT TID [facility] Last Admin: 06/07/19 06:41 Dose: 1 mg Diazepam (Diastat Rectal Gel -) 20 mg RC DAILY PRN PRN Reason: Seizures occuring 5 min + Sodium Chloride (Normal Saline -) 1,000 mls @ 100 mls/hr IV ASDIR [facility] Last Admin: 06/06/19 22:10 Dose: 100 mls/hr Piperacillin Sod/Tazobactam (Sod 3.375 gm/ Dextrose) 50 mls @ 100 mls/hr IVPB Q8H-IV [facility]; Protocol Influenza Virus Vaccine Quadrival (Flulaval Quad ) 60 mcg IM .ONCE ONE Stop: 06/07/19 12:01 Levetiracetam (Keppra Oral Solution -) 1,500 mg GT BID [facility] Last Admin: 06/07/19 10:42 Dose: 1,500 mg Microbiology 06/06/19 10:30 Urine - Urine - Catheterized Urine Culture - Final NO GROWTH OBTAINED 06/06/19 11:00 Blood - Peripheral Venous Blood Culture - Preliminary NO GROWTH OBTAINED AFTER 24 HOURS, INCUBATION TO CONTINUE FOR 4 DAYS. 06/06/19 11:00 Blood - Peripheral Venous Blood Culture - Preliminary NO GROWTH OBTAINED AFTER 24 HOURS, INCUBATION TO CONTINUE FOR 4 DAYS. ASSESSMENT/PLAN: Sepsis 2/2 to URI R/o Aspiration PNA HTN Cerebral palsy with functional quadriplegia Seizure disorder Popliteal DVT (02/2019) --d/c NS@100cc/hr --Influenza negative --Respiratory virus panel pending --Pre and post performed: No oxygen needed --Albuterol Neb PRN q4h for wheezing/distress --sputum and legionella ordered --Continue home medications: Keppra 1500mg GT BID Diazepam UT PRN for breakthrough seizures Klonopin 1mg GT TID Carbamazepine 280mg GT BID ASA 81mg GT daily Eliquis 5mg BID PEG FEN: Fluids: discontinue Electrolye abnormalities: Nutrition: Resume with changed goal to 38cc/hr PPX: DVT - Aleady on Eliquis Dispo: virus panel pending Case discussed with Dr. Nadia Parada, DO - IM PGY-3 <Marcellus Parada - Last Filed: 06/09/19 10:57> - Note Progress Note: Attending Addendum I have seen and examined the indicated patient independently/along with the resident team. I have personally verified all gaming exam findings and historical components. I have personally interpreted all diagnostics indicated per todays orders and reviewed interpretation of indicated subspecialty services. This patient meets a high level of medical complexity and warrants inpatient admission to avoid decompensation and worsening of the indicated illness. 60 minutes have been spent in the completion of this admission. S: No issues reported overnight Cannot obtain 10 sys ROS due to his underlying clinical condition. O: Physical exam is essentially unchanged from yesterday. Resting in bed, responds to verbal and tactile stimuli, on 2 L oxygen via nasal cannula, does not appear to be in distress Atraumatic, PERRLA, EOMI Regular rate and rhythm, S1-S2 Lungs with scattered rhonchi and poor respiratory effort; this is his baseline respiratory exam with no focal consolidations noted. Nontender nondistended positive bowel sounds No focal neurologic deficits, cranial nerve exam remains at baseline and intact. Essentially unchanged neurologic exam. Patient is nonagitated, cannot provide full psychiatric assessment due to his underlying clinical condition. No new rashes or skin breakdown noted. Trachea is midline, no minh lymphadenopathy noted. EKG reviewed Preliminary CXR reviewed A/P: Patient seen, examined, and discussed in depth with resident team. Problem list reviewed per resident note and agree with their discussion aside from as supplemented by myself below. Problems include: -Acute hypoxic respiratory failure, nearly resolved. (r/o aspiration PNA vs. microaspiration causing pneumonitis; in the setting of readmission with recent viral URI. Pending infectious disease consult. No cx growth yet but pending final results. Legionella and pneumococcus are negative, final culture results pending but the preliminary are negative. Once he is off of O2 we will determine final course of ab x per ID and plan for DC back to [place].) -Sepsis (Resolved with isotonic fluids/abx) -Hx Seizure Disorder (No seizure activity noted; continue to monitor on the floor and continue all home medications as prescribed) -Hx MR/CP/Functional Quadraplegia-Unchanged from prior encounters Further plan per resident note. Continue to monitor on the floor; agree with plan as documented per resident note. Unfortunately this patient has a poor overall prognosis and will likely continue to bounce back to the hospital. He has severe underlying respiratory issues that are secondary to his chronic severe developmental delays causing chronic aspiration, poor secretion clearance, etc. <Rob Zuniga - Last Filed: 06/10/19 12:35>
[2019-06-09 12:47] LABS: BASO % 0.5 % (0-2.0); HEMATOCRIT 34.8 % (35.4-49); HEMOGLOBIN 11.2 GM/dL (11.7-16.9); MCH 29.5 pg (25.7-33.7); MCHC 32.1 g/dl (32.0-35.9); MEAN PLT VOLUME 7.7 fl (7.5-11.1); MONO % 9.8 % (3.8-10.2); NEUT % 56.7 % (42.8-82.8); PLATELET COUNT 311 K/MM3 (134-434); RBC 3.78 M/mm3 (4.00-5.60); RDW 14.8 % (11.9-15.9); WHITE BLOOD COUNT 5.1 K/mm3 (4.0-10.0)
[2019-06-09 13:01] LABS: BLOOD UREA NITROGEN 3.8 mg/dL (7-18); CALCIUM 8.3 mg/dL (8.5-10.1); CREATININE 0.3 mg/dL (0.55-1.3); MAGNESIUM 2.2 mg/dL (1.8-2.4); POTASSIUM 4.4 mmol/L (3.5-5.1)
--- NOTE | 2019-06-09 14:48 | DS ---
Physical Exam: HPI: No acute events. Pt comfortable with slight coughing. HPI limited Of note: pt was discussed with Dr. Mayorga who reports that transportation and staff for the return of the patient will be tomorrow. He reports that he is cleared and that Joe will be the provider tomorrow however Dr. Mayorga will let him know that the patient is cleared for return OBJECTIVE: Vital Signs Period Temp Pulse Resp BP Sys/Don Pulse Ox Last 24 Hr 98.3 F-98.7 F 80-87 20-20 119-145/61-88 96-96 PHYSICAL EXAM GEN: NAD, awake, nonverbal HEENT: Microcephaly, MMM, minimal secretions, NC in place Neck: No JVD Lungs: CTA b/l on RA without any accessory muscle use CARD: RRR no murmur ABD: NT/ND, soft, PEG in place without any drainage around site Ext: No edema, contracted LABS Laboratory Results - last 24 hr 06/09/19 06/09/19 12:26 12:26 WBC 5.1 RBC 3.78 L Hgb 11.2 L Hct 34.8 L MCV 92.0 MCH 29.5 MCHC 32.1 RDW 14.8 Plt Count 311 MPV 7.7 Absolute Neuts (auto) 2.9 Neutrophils % 56.7 Lymphocytes % 27.0 D Monocytes % 9.8 Eosinophils % 6.0 H D Basophils % 0.5 Nucleated RBC % 0 Sodium 137 Potassium 4.4 Chloride 106 Carbon Dioxide 24 Anion Gap 7 L BUN 3.8 L Creatinine 0.3 L Est GFR (CKD-EPI)AfAm 212.34 Est GFR (CKD-EPI)NonAf 183.21 Random Glucose 89 Calcium 8.3 L Magnesium 2.2 Active Medications Acetaminophen (Ofirmev Injection -) 750 mg IVPB Q6H PRN PRN Reason: FEVER Albuterol Sulfate (Ventolin 0.083% Nebulizer Soln -) 1 amp NEB Q8H PRN PRN Reason: SHORT OF BREATH/WHEEZING Last Admin: 06/08/19 20:45 Dose: 1 amp Apixaban (Eliquis -) 5 mg PEG BID [facility] Last Admin: 06/09/19 09:48 Dose: 5 mg Aspirin (Asa -) 81 mg GT DAILY [facility] Last Admin: 06/09/19 09:48 Dose: 81 mg Carbamazepine (Carbamazepine) 280 mg GT BID [facility] Last Admin: 06/09/19 09:48 Dose: 280 mg Clonazepam (Klonopin -) 1 mg GT TID [facility] Last Admin: 06/09/19 13:57 Dose: 1 mg Diazepam (Diastat Rectal Gel -) 20 mg RC DAILY PRN PRN Reason: Seizures occuring 5 min + Levetiracetam (Keppra Oral Solution -) 1,500 mg GT BID [facility] Last Admin: 06/09/19 09:57 Dose: 1,500 mg Microbiology 06/06/19 11:00 Blood - Peripheral Venous Blood Culture - Preliminary NO GROWTH OBTAINED AFTER 72 HOURS, INCUBATION TO CONTINUE FOR 2 DAYS. 06/06/19 11:00 Blood - Peripheral Venous Blood Culture - Preliminary NO GROWTH OBTAINED AFTER 72 HOURS, INCUBATION TO CONTINUE FOR 2 DAYS. 06/07/19 19:00 Sputum - Oropharynx Suctioned Sputum Gram Stain - Final 06/08/19 06:45 Urine For Antigen Detection Legionella Antigen - Final 06/08/19 06:45 Urine For Antigen Detection Streptococcus pneumoniae Antigen (M - Final 06/06/19 15:30 Nasopharyngeal Swab Respiratory Virus Panel - Preliminary 06/06/19 10:30 Urine - Urine - Catheterized Urine Culture - Final NO GROWTH OBTAINED Laboratory Tests 06/06/19 06/07/19 12:20 12:46 Influenza A (Rapid) Negative Influenza B (Rapid) Negative RSV Rapid Negative IMAGING: CXR: Impression: No acute chest pathology. No change of an adverse nature 05/21/2019 HOSPITAL COURSE: Date of Admission:06/06/19 Date of Discharge: 06/09/19 Pt awas admitted on 06/06/19 due to hypoxia and possible aspiration PNA. Pt had CXR as above which did not show infiltrates despite his increased oxygen needs. Pt was continued on Zosyn during his stay and had Influenza, RSV, and respiratory virus panel drawn. Pt's feeds were re-evaluated and adjusted to goal 38cc/hr and FW 30cc/hr as displayed below. Pt's oxygen requirements were tested by respiratory therapy and they found he was 95% on RA. Pt is being discharged back to [facility] with instructions to continue 1 more day worth of Augmentin. Minutes to complete discharge: 30 <Marcellus Parada - Last Filed: 06/09/19 21:21> Physical Exam: SUBJECTIVE: Patient seen and examined OBJECTIVE: Vital Signs Period Temp Pulse Resp BP Sys/Don Pulse Ox Last 24 Hr 97.5 F-98.7 F 70-92 20-20 121-140/64-89 96 PHYSICAL EXAM GENERAL: The patient is awake, alert, and fully oriented, in no acute distress. HEAD: Normal with no signs of trauma. EYES: PERRL, extraocular movements intact, sclera anicteric, conjunctiva clear. ENT: Ears normal, nares patent, oropharynx clear without exudates, moist mucous membranes. NECK: Trachea midline, full range of motion, supple. LUNGS: Breath sounds equal, clear to auscultation bilaterally, no wheezes, no crackles, no accessory muscle use. HEART: Regular rate and rhythm, S1, S2 without murmur, rub or gallop. ABDOMEN: Soft, nontender, nondistended, normoactive bowel sounds, no guarding, no rebound, no hepatosplenomegaly, no masses. EXTREMITIES: 2+ pulses, warm, well-perfused, no edema. NEUROLOGICAL: Cranial nerves II through XII grossly intact. Normal speech, gait not observed. PSYCH: Normal mood, normal affect. SKIN: Warm, dry, normal turgor, no rashes or lesions noted. LABS Laboratory Results - last 24 hr 06/09/19 06/09/19 12:26 12:26 WBC 5.1 RBC 3.78 L Hgb 11.2 L Hct 34.8 L MCV 92.0 MCH 29.5 MCHC 32.1 RDW 14.8 Plt Count 311 MPV 7.7 Absolute Neuts (auto) 2.9 Neutrophils % 56.7 Lymphocytes % 27.0 D Monocytes % 9.8 Eosinophils % 6.0 H D Basophils % 0.5 Nucleated RBC % 0 Sodium 137 Potassium 4.4 Chloride 106 Carbon Dioxide 24 Anion Gap 7 L BUN 3.8 L Creatinine 0.3 L Est GFR (CKD-EPI)AfAm 212.34 Est GFR (CKD-EPI)NonAf 183.21 Random Glucose 89 Calcium 8.3 L Magnesium 2.2 HOSPITAL COURSE: Date of Admission:06/06/19 Date of Discharge: 06/10/19 <Rob Zuniga - Last Filed: 06/10/19 12:38> Discharge Summary Problems reviewed: Yes Reason For Visit: SEPSIS,PNEUMONIA Current Active Problems Pneumonia (Acute) Sepsis (Acute) - Home Medications Comprehensive Discharge Medication List: Ambulatory Orders Carbamazepine [Tegretol -] 280 mg GT BID 03/17/18 Cholecalciferol (Vitamin D3) [Vitamin D3] 2,000 unit GT DAILY 03/17/18 Omeprazole Magnesium [Prilosec] 20 mg GT DAILY 03/17/18 clonazePAM [KlonoPIN -] 1 mg GT TID 03/17/18 Budesonide [Pulmicort 0.5 mg Nebulizer -] 1 neb NEB BID 07/12/18 Diazepam [Diastat Acudial] 20 mg RC PRN PRN 07/12/18 Ipratropium/Albuterol Sulfate [Iprat-Albut 0.5-3(2.5) mg/3 ml] 3 ml IH QID PRN 07/12/18 levETIRAcetam [Keppra Oral Solution -] 1,500 mg GT BID cup 10/06/18 Baclofen 20 mg GT ASDIR 03/08/19 Apixaban [Eliquis] 5 mg GT BID 05/14/19 Tamsulosin HCl [Flomax] 0.4 mg GT DAILY 05/21/19 Mupirocin Cream [Bactroban 2% Cream -] 1 applic TP QID 06/08/19 Nystatin Cream [Mycostatin Cream -] 1 applic TP BID 06/08/19 Acetaminophen Oral Solution [Tylenol 160mg/5mL Oral Solution -] 480 mg GT Q6H PRN #30 tab 06/09/19 Amox-Tr/K Cl [Augmentin 875-125mg Tablet -] 1 tab GT BID@0800,1730 #2 tab <Marcellus Parada - Last Filed: 06/09/19 21:21> Problems reviewed: Yes Current Active Problems Pneumonia (Acute) Sepsis (Acute) - Home Medications Comprehensive Discharge Medication List: Ambulatory Orders Carbamazepine [Tegretol -] 280 mg GT BID 03/17/18 Cholecalciferol (Vitamin D3) [Vitamin D3] 2,000 unit GT DAILY 03/17/18 Omeprazole Magnesium [Prilosec] 20 mg GT DAILY 03/17/18 clonazePAM [KlonoPIN -] 1 mg GT TID 03/17/18 Budesonide [Pulmicort 0.5 mg Nebulizer -] 1 neb NEB BID 07/12/18 Diazepam [Diastat Acudial] 20 mg RC PRN PRN 07/12/18 Ipratropium/Albuterol Sulfate [Iprat-Albut 0.5-3(2.5) mg/3 ml] 3 ml IH QID PRN 07/12/18 levETIRAcetam [Keppra Oral Solution -] 1,500 mg GT BID cup 10/06/18 Baclofen 20 mg GT ASDIR 03/08/19 Apixaban [Eliquis] 5 mg GT BID 05/14/19 Tamsulosin HCl [Flomax] 0.4 mg GT DAILY 05/21/19 Mupirocin Cream [Bactroban 2% Cream -] 1 applic TP QID 06/08/19 Nystatin Cream [Mycostatin Cream -] 1 applic TP BID 06/08/19 Acetaminophen Oral Solution [Tylenol 160mg/5mL Oral Solution -] 480 mg GT Q6H PRN #30 tab 06/09/19 Amox-Tr/K Cl [Augmentin 875-125mg Tablet -] 1 tab GT BID@0800,1730 #2 tab <Rob Zuniga - Last Filed: 06/10/19 12:38> Condition: Stable - Instructions Diet, Activity, Other Instructions: RSV, Influenza, respiratory virus panel all negative. Oxygen requirements remain at none (RA 95%) Pt's diet has been changed: Jevity 1.5 goal 38cc/hr with 30cc free water flushes. Pt will be on Augmentin 875mg BID for one more day (2 total doses) Please continue to follow-up with the providers at [facility]. Please continue the rest of his medications as these remain unchanged (see list below). Referrals: Bernardo Mayorga Jr [Non Staff, Medical] - Disposition: [facility] FACILITY This patient is new to me today: No Emergency Visit: Yes ED Registration Date: 06/06/19 Care time: The patient presented to the Emergency Department on the above date and was hospitalized for further evaluation of their emergent condition. Critical Care patient: No - Discharge Referral Referred to [facility] Med P.C[facility] No <Marcellus Parada - Last Filed: 06/09/19 21:21> This patient is new to me today: No Emergency Visit: Yes ED Registration Date: 06/06/19 Care time: The patient presented to the Emergency Department on the above date and was hospitalized for further evaluation of their emergent condition. Critical Care patient: No - Discharge Referral Referred to [facility] No <Rob Zuniga - Last Filed: 06/10/19 12:38> ATTENDING PHYSICIAN STATEMENT I saw and evaluated the patient. I reviewed the resident's note and discussed the case with the resident. I agree with the resident's findings and plan as documented. SUBJECTIVE: OBJECTIVE: ASSESSMENT AND PLAN: <Marcellus Parada - Last Filed: 06/09/19 21:21> Attending Addendum I have seen and examined the indicated patient independently/along with the resident team. I have personally verified all gaming exam findings and historical components. I have personally interpreted all diagnostics indicated per todays orders and reviewed interpretation of indicated subspecialty services. This patient meets a high level of medical complexity and warrants inpatient admission to avoid decompensation and worsening of the indicated illness. S: Agree with historical findings as outlined in resident documentation regarding history of present illness. O: Physical exam is essentially unchanged from yesterday. Resting in bed, responds to verbal and tactile stimuli, on 2 L oxygen via nasal cannula, does not appear to be in distress Atraumatic, PERRLA, EOMI Regular rate and rhythm, S1-S2 Lungs with scattered rhonchi and poor respiratory effort; this is his baseline respiratory exam with no focal consolidations noted. Nontender nondistended positive bowel sounds No focal neurologic deficits, cranial nerve exam remains at baseline and intact. Essentially unchanged neurologic exam. Patient is nonagitated, cannot provide full psychiatric assessment due to his underlying clinical condition. No new rashes or skin breakdown noted. Trachea is midline, no minh lymphadenopathy noted. EKG reviewed Preliminary CXR reviewed A/P: Patient seen, examined, and discussed in depth with resident team. Problem list reviewed per resident note and agree with their discussion aside from as supplemented by myself below. Problems include: -Acute hypoxic respiratory failure, nearly resolved. (r/o aspiration PNA vs. microaspiration causing pneumonitis; in the setting of readmission with recent viral URI. Pending infectious disease consult. No cx growth yet but pending final results but will note he is likely chronically colonized and clinical picture with no WBC, lack of fevers and hemodynamic stability with decreased O2 requirements speak to improved clinical presentation.) -Sepsis (Resolved with isotonic fluids/abx) -Hx Seizure Disorder (No seizure activity noted; continue to monitor on the floor and continue all home medications as prescribed at the time of DC with no med changes made during this hospitalization). -Hx MR/CP/Functional Quadraplegia-Unchanged from prior encounters and is his clinical baseline Further plan per resident note. Continue to monitor on the floor; agree with plan as documented per resident note. Unfortunately this patient has a poor overall prognosis and will likely continue to bounce back to the hospital. He has severe underlying respiratory issues that are secondary to his chronic severe developmental delays causing chronic aspiration, poor secretion clearance, etc. Code status unchanged <Rob Zuniga - Last Filed: 06/10/19 12:38>
[2019-06-09] MEDS: ALBUTEROL SO4 0.083% IH SOL 2.5 MG/3 ML VIAL.NEB. NEB PRN (20:35)
[2019-06-10] MEDS: clonazePAM 0.5 MG TABLET GT SCH (05:45)
[2019-06-10] MEDS: ASPIRIN 81 MG CHEWABLE TABLETS GT SCH (11:49)
[2019-06-10] MEDS: carBAMazepine 100 MG/5 ML UNIT-DOSE CUP GT SCH (11:49)
[2019-06-10] MEDS: levETIRAcetam 500 MG/5 ML ORAL SOLUTION (UNIT-DOSE CUPS) GT SCH (11:49)
[2019-06-10] MEDS: APIXABAN 5 MG TABLET PEG SCH (11:50)
--- NOTE | 2019-06-10 12:04 | PN ---
Progress Note (short form) - Note Progress Note: Talked with Dr. Diaz at [place] for continued clearance of d/c back to [place]. Pt remains off oxygen and afebrile in normal state of health. No events overnight and no changes in exam from d/c summary. <Marcellus Parada - Last Filed: 06/10/19 12:03> - Note Progress Note: DC order placed yesterday but was unable to leave due to underlying issue with transport. Spoke to patient's mother who states that she is concerned about her son not getting enough antibiotics-I spoke with her at length and she was agreeable. Limited insight as to how chronic aspiration plays into his chronic issues-she wants to know if any other types of feeding tubes can lessen his aspiration risk. I informed her we can refer him to an outpatient GI specialist for followup to discuss, but that I don't know of any single modality that completely mitigates this risk. 10 sys ROS done and negative aside from HPI VS, labs, imaging reviewed NAD, AAOx0 but tracks and appears at baseline, no FND AT EOMI PERRLA; on RA. Passes pre and post with RT NT ND +BS CN2-12 at baseline, no new fnd with continued functional quadraplegia Normal mood, appropriate behavior Hospital Course: Patient presents as a bounceback to the hospital for recurring hypoxia; multiple admissions this month/year noted. He recently had viral PNA and has chronic microaspiration. He was septic on presentation which resolved with fluids and broad spectrum abx as per ID. Cx growing out likely chronic colonization and is clinically improved, off O2 for 24+ hours. Final course abx per ID. Was set to DC yesterday but did not due to undelrying issue with transport/facility and not medical instability. Remains stable today with no new issues and may be discharged back to [place]. No changes to his chronic maintenance medications. 25 minutes <Rob Zuniga - Last Filed: 06/10/19 12:49>
[2019-06-10 12:52] VITALS: BP 143/90; PULSE 90; TEMP 98
== END 2019-06-10 13:44 | DRG 720 ==
LOC: JER 09:49 → JERBED 11:12 → J5S 19:37
PROVIDERS: ADMIT Internal Medicine; ATTEND Internal Medicine
DX: A41.9 Sepsis, unspecified organism (principal); H47.619 Cortical blindness, unspecified side of brain; E87.1 Hypo-osmolality and hyponatremia; R53.2 Functional quadriplegia; R13.10 Dysphagia, unspecified; J96.01 Acute respiratory failure with hypoxia; G40.909 Epilepsy, unspecified, not intractable, without status epilepticus; Q02 Microcephaly; R00.0 Tachycardia, unspecified; G80.0 Spastic quadriplegic cerebral palsy; Z93.1 Gastrostomy status; J69.0 Pneumonitis due to inhalation of food and vomit
CPT/HCPCS: 36415; 71045-TC-FY; 80048; 80053; 81003; 82803; 83605; 83735; 83880; 84484; 85025; 85027; 85610; 85730; 87040; 87070; 87086; 87186; 87205; 87254; 87633; 87804; 87807; 87899; 93005; 93010; 94640; 94761; 99285-25; J0131; J1644; J7030; Q2036

== ENCOUNTER 2019-08-17 10:34 | Inpatient (IN) | payer OTHER ==
[2019-08-17] MEDS ORDERED: SODIUM CHLORIDE IV ONE (10:56)
[2019-08-17] MEDS ORDERED: ACETAMINOPHEN 1000 MG/100 ML VIAL (NON FORMULARY) IVPB ONE (10:58)
--- NOTE | 2019-08-17 11:33 | PDOC ---
History of Present Illness - General Chief Complaint: Cold Symptoms Stated Complaint: PNEUMONIA History Source: EMS, [facility] Records, Old Records Exam Limitations: Physical Impairment - History of Present Illness Initial Comments: 08/17/19 11:25 28YOM with h/o CP with spastic quadriparesis, severe DD, microcephaly, mulitple PNA with sepsis and [facility] admission (last 09/22-10/10/18), [place] x3, seizures, asthma , scoliosis, Jasmin fundoplication, dysphagia s/p G-tube placement, hyponatremia thought d/t meds, and testicular torsion who was BIBEMS from [place] for VS abnormalities (paperwork states HR 150s, RR 30s, O2 96%, 137/87 , T 98.3). The patient himself is nonverbal and unable to provide any history. Past History - Past Medical History Allergies/Adverse Reactions: Allergies Allergy/AdvReac Type Severity Reaction Status Date / Time Beef Containing Products Allergy Unknown Verified 08/17/19 10:44 erythromycin base Allergy Verified 08/17/19 10:44 phenobarbital Allergy Verified 08/17/19 10:44 venom-honey bee Allergy Verified 08/17/19 10:44 [bee venom (honey bee)] Home Medications: Ambulatory Orders Carbamazepine [Tegretol -] 280 mg GT BID 03/17/18 Cholecalciferol (Vitamin D3) [Vitamin D3] 2,000 unit GT DAILY 03/17/18 Omeprazole Magnesium [Prilosec] 20 mg GT DAILY 03/17/18 clonazePAM [KlonoPIN -] 1 mg GT TID 03/17/18 Budesonide [Pulmicort 0.5 mg Nebulizer -] 1 neb NEB BID 07/12/18 Diazepam [Diastat Acudial] 20 mg RC PRN PRN 07/12/18 Ipratropium/Albuterol Sulfate [Iprat-Albut 0.5-3(2.5) mg/3 ml] 3 ml IH QID PRN 07/12/18 levETIRAcetam [Keppra Oral Solution -] 1,500 mg GT BID cup 10/06/18 Baclofen 20 mg GT ASDIR 03/08/19 Apixaban [Eliquis] 5 mg GT BID 05/14/19 Tamsulosin HCl [Flomax] 0.4 mg GT DAILY 05/21/19 Mupirocin Cream [Bactroban 2% Cream -] 1 applic TP QID 06/08/19 Nystatin Cream [Mycostatin Cream -] 1 applic TP BID 06/08/19 Acetaminophen Oral Solution [Tylenol 160mg/5mL Oral Solution -] 480 mg GT Q6H PRN #30 tab 06/09/19 Amox-Tr/K Cl [Augmentin 875-125mg Tablet -] 1 tab GT BID@0800,1730 #2 tab Anemia: No Asthma: Yes Cancer: No Cardiac Disorders: No CVA: No COPD: Yes (asthma, aspiration pnuemonia and respiratory distress) CHF: No Dementia: Yes (mental retardation) Diabetes: No GI Disorders: Yes (dysphagia, s/p peg insertion) Disorders: Yes (left testicular torsion, scrotal pain) HTN: No Hypercholesterolemia: No Liver Disease: No Psychiatric Problems: (hyponatremia (due to meds)) Seizures: Yes Thyroid Disease: No - Surgical History Abdominal Surgery: No Appendectomy: No Cardiac Surgery: No Cholecystectomy: No GI Surgery: Yes (G-tube) Lung Surgery: No Neurologic Surgery: Yes (scoliosis w/ mcelroy rods) Orthopedic Surgery: (Left Hip Osteotomy) - Immunization History Td Vaccination: Yes TDAP Vaccination: Yes Immunization Up to Date: Yes - Psycho Social/Smoking Cessation Hx Smoking History: Never smoked Have you smoked in the past 12 months: No Number of Cigarettes Smoked Daily: 0 Cigars Per Day: 0 Information on smoking cessation initiated: No Hx Alcohol Use: No Drug/Substance Use Hx: No Substance Use Type: None Hx Substance Use Treatment: No Review of Systems - Review of Systems Able to Perform ROS?: No (non-communicative) *Physical Exam - Vital Signs Last Vital Signs Temp Pulse Resp BP Pulse Ox 100.3 F H 144 H 18 114/58 L 96 08/17/19 10:45 08/17/19 10:45 08/17/19 10:45 08/17/19 10:45 08/17/19 10:45 - Physical Exam 08/17/19 12:04 GENERAL: chronically ill-appearing, non-communicative, eyes open, no distress HEENT: microcephaly, PERRLA, EOMI, a bit dry mucous membranes NECK/BACK: midline well-healed scar, no spinal stepoff or deformity, no hematoma CARDIOVASCULAR: regular rate/rhythm, normal S1S2, no MGR, strong peripheral pulses, capillary refill <2 seconds, extremities contracted, no edema LUNGS/RESPIRATORY: good air movement, no focal area of decreased breath sounds GI/ABDOMEN: symmetric [id number], normoactive BS, soft, no midline pulsatile masses : no CVA tenderness EXTREMITIES: no muscle atrophy, no acute deformity SKIN: warm and dry, no pallor, no jaundice, no rash, no bruising, no skin breakdown, no cuts, no lesions NEUROLOGICAL: CN II-XII grossly intact, no facial droop ED Treatment Course - LABORATORY CBC & Chemistry Diagram: 08/17/19 11:29 08/17/19 11:29 Medical Decision Making - Medical Decision Making 08/17/19 12:07 Chronically ill 28YOM with CP, microcephaly, DD, seizure disorder, multiple PNA admissions; p/w abnormal vital signs as reported by [facility]. Initial Vital Signs Temp Pulse Resp BP Pulse Ox 100.3 F H 144 H 18 114/58 L 96 08/17/19 10:45 08/17/19 10:45 08/17/19 10:45 08/17/19 10:45 08/17/19 10:45 Exam: As noted in Physical Exam section. DDX IBNLT: Sepsis (e.g. d/t PNA, UTI, intraabdominal infection, meningitis, OM, etc) is most likely, other possibility VTE, ACS, etc. W/U ordered: Sepsis order set with labs, EKG, and imaging as noted below TX ordered: IVF and Ofirmev to start. EKG: Reviewed; results as noted in ECG Review section. CXR: No focal consolidation Laboratory Tests 08/17/19 08/17/19 08/17/19 11:29 11:29 11:29 WBC RBC Hgb Hct MCV MCH MCHC RDW Plt Count MPV Absolute Neuts (auto) Neutrophils % Lymphocytes % Monocytes % Eosinophils % Basophils % Nucleated RBC % PT with INR 16.90 H INR 1.43 H PTT (Actin FS) 42.0 H VBG pH POC VBG pCO2 POC VBG pO2 VBG HCO3 VBG O2 Sat (Rafa) VBG Base Excess Sodium Potassium Chloride Carbon Dioxide Anion Gap BUN Creatinine Est GFR (CKD-EPI)AfAm Est GFR (CKD-EPI)NonAf Random Glucose Lactic Acid 1.3 Calcium Total Bilirubin AST ALT Alkaline Phosphatase Troponin I < 0.02 Total Protein Albumin Urine Color Urine Appearance Urine pH Ur Specific [place] Urine Protein Urine Glucose (UA) Urine Ketones Urine Blood Urine Nitrite Urine Bilirubin Urine Urobilinogen Ur Leukocyte Esterase Influenza A (Rapid) Influenza B (Rapid) 08/17/19 08/17/19 08/17/19 11:29 11:29 11:29 WBC 11.8 H RBC 5.11 Hgb 14.6 Hct 42.3 D MCV 82.8 D MCH 28.6 MCHC 34.5 RDW 14.2 Plt Count 397 D MPV 7.7 Absolute Neuts (auto) 8.3 H Neutrophils % 70.1 D Lymphocytes % 18.9 D Monocytes % 10.2 Eosinophils % 0.3 D Basophils % 0.5 Nucleated RBC % 0 PT with INR INR PTT (Actin FS) VBG pH POC VBG pCO2 POC VBG pO2 VBG HCO3 VBG O2 Sat (Rafa) VBG Base Excess Sodium 132 L Potassium 4.2 Chloride 99 Carbon Dioxide 24 Anion Gap 9 BUN 7.3 Creatinine 0.4 L Est GFR (CKD-EPI)AfAm 188.66 Est GFR (CKD-EPI)NonAf 162.78 Random Glucose 94 Lactic Acid Calcium 8.7 Total Bilirubin 0.4 AST 31 ALT 42 Alkaline Phosphatase 135 H Troponin I Total Protein 8.1 Albumin 3.6 Urine Color Yellow Urine Appearance Cloudy Urine pH 8.5 H Ur Specific [place] 1.009 L Urine Protein Negative Urine Glucose (UA) Negative Urine Ketones Negative Urine Blood Negative Urine Nitrite Negative Urine Bilirubin Negative Urine Urobilinogen 0.2 Ur Leukocyte Esterase Negative Influenza A (Rapid) Influenza B (Rapid) 08/17/19 08/17/19 11:29 13:00 WBC RBC Hgb Hct MCV MCH MCHC RDW Plt Count MPV Absolute Neuts (auto) Neutrophils % Lymphocytes % Monocytes % Eosinophils % Basophils % Nucleated RBC % PT with INR INR PTT (Actin FS) VBG pH 7.47 H POC VBG pCO2 35.7 L POC VBG pO2 66.2 H VBG HCO3 25.6 VBG O2 Sat (Rafa) 92.2 H VBG Base Excess 2.6 H Sodium Potassium Chloride Carbon Dioxide Anion Gap BUN Creatinine Est GFR (CKD-EPI)AfAm Est GFR (CKD-EPI)NonAf Random Glucose Lactic Acid Calcium Total Bilirubin AST ALT Alkaline Phosphatase Troponin I Total Protein Albumin Urine Color Urine Appearance Urine pH Ur Specific [place] Urine Protein Urine Glucose (UA) Urine Ketones Urine Blood Urine Nitrite Urine Bilirubin Urine Urobilinogen Ur Leukocyte Esterase Influenza A (Rapid) Negative Influenza B (Rapid) Negative Reassessment: Patient remains tachycardic, coarse breath sounds diffusely ADMIT The Pt is unsafe for discharge at this time. They require further hospital observation, workup, and treatment. Microblog sent to [facility] for admission. Blank Decision to Admit order is placed per ED protocol. Discharge - Discharge Information Problems reviewed: Yes Clinical Impression/Diagnosis: PNA (pneumonia) - Admission Yes - Follow up/Referral Referrals: Bernardo Mayorga Jr [Primary Care Provider] - - Patient Discharge Instructions - Post Discharge Activity
[2019-08-17] MEDS ORDERED: ACETAMINOPHEN INJECTION 100 ML IVPB ONE (11:38)
[2019-08-17 11:46] LABS: BASO % 0.5 % (0-2.0); EOS % 0.3 % (0-4.5); HEMATOCRIT 42.3 % (35.4-49); HEMOGLOBIN 14.6 GM/dL (11.7-16.9); LYMPH % 18.9 % (8-40); MCH 28.6 pg (25.7-33.7); MCHC 34.5 g/dl (32.0-35.9); MEAN CELL VOLUME 82.8 fl (80-96); MEAN PLT VOLUME 7.7 fl (7.5-11.1); MONO % 10.2 % (3.8-10.2); NEUT % 70.1 % (42.8-82.8); PLATELET COUNT 397 K/MM3 (134-434); RBC 5.11 M/mm3 (4.00-5.60); RDW 14.2 % (11.9-15.9); VENOUS PC02 35.7 mmHg (38-52); VENOUS PH 7.47 (7.31-7.41); WHITE BLOOD COUNT 11.8 K/mm3 (4.0-10.0)
--- NOTE | 2019-08-17 11:53 | EKG ---
Test Reason : Blood Pressure : / mmHG Vent. Rate : 134 BPM Atrial Rate : 134 BPM P-R Int : 136 ms QRS Dur : 084 ms QT Int : 296 ms P-R-T Axes : 033 141 012 degrees QTc Int : 442 ms SINUS TACHYCARDIA POSSIBLE LEFT ATRIAL ENLARGEMENT POSSIBLE RIGHT VENTRICULAR HYPERTROPHY POSSIBLE LATERAL INFARCT , AGE UNDETERMINED INFERIOR INFARCT (CITED ON OR BEFORE 11-MAR-2019) ABNORMAL ECG WHEN COMPARED WITH ECG OF 06-JUN-2019 11:29, BORDERLINE CRITERIA FOR LATERAL INFARCT ARE NOW PRESENT Confirmed by GIO FISCHER MD ([id number]) on 08/17/2019 11:52:58 AM Referred By: Confirmed By:GIO FISCHER MD
[2019-08-17 11:58] LABS: VENOUS PO2 66.2 mmHg (28-48)
[2019-08-17 12:11] LABS: INR 1.43 (0.83-1.09); PROTHROMBIN TIME (PATIENT) 16.9 SEC (9.7-13.0)
[2019-08-17 12:13] LABS: PH,URINE 8.5 (5.0-8.0); URINE APPEARANCE CLOUDY; URINE BILIRUBIN NEGATIVE (NEGATIVE); URINE COLOR YELLOW; URINE GLUCOSE (UA) NEGATIVE (NEGATIVE); URINE KETONE NEGATIVE (NEGATIVE); URINE LEUK ESTERASE NEGATIVE (NEGATIVE); URINE NITRITE NEGATIVE (NEGATIVE); URINE PROTEIN NEGATIVE (NEGATIVE); URINE UROBILINOGEN 0.2 mg/dL (0.2-1.0)
[2019-08-17 12:29] LABS: ALBUMIN 3.6 g/dl (3.4-5.0); BILIRUBIN,TOTAL 0.4 mg/dL (0.2-1); BLOOD UREA NITROGEN 7.3 mg/dL (7-18); CALCIUM 8.7 mg/dL (8.5-10.1); CREATININE 0.4 mg/dL (0.55-1.3); POTASSIUM 4.2 mmol/L (3.5-5.1); TOT PROT 8.1 g/dl (6.4-8.2)
--- NOTE | 2019-08-17 13:35 | PDOC ---
Documentation entered by Chandni Gill SCRIBE, acting as scribe for Rafa Alba MD. Rafa Alba MD: This documentation has been prepared by the giannaibeJairo Lincy, SCRIBE, under my direction and personally reviewed by me in its entirety. I confirm that the documentation accurately reflects all work, treatment, procedures, and medical decision making performed by me. Attending Attestation - Resident Resident Name: MelgarPascale - ED Attending Attestation I have performed the following: I have examined & evaluated the patient, The case was reviewed & discussed with the resident, I agree w/resident's findings & plan, Exceptions are as noted - HPI HPI: 08/17/19 11:38 The patient is a 28-year-old male with a past medical history significant for developmental disability, cerebral palsy w/ spastic quadriparesis, hx of seizure disorder, dysphagia s/p G-tube who presents to the emergency department from [facility] for fever and r/o pneumonia. Per EMS, the patient was noted to be febrile and having respiratory issues of difficulty breathing. Allergies: phenobarbital and erythromycin base. - Physicial Exam PE: 08/17/19 11:38 Vitals: Triage Vital signs reviewed General Appearance: no acute distress, +contracted. Cardiac: Regular rate and rhythm, no murmurs, no rubs, no gallops. Lungs: +coarse breath sounds at the base. Abdomen: Soft, nondistended, normal bowel sounds, nontender to palpation Extremities: +contracted. no cyanosis, clubbing, or edema Skin: Warm and dry, no rashes or lesions, no petechiae Psych: normal mood, normal affect. - Medical Decision Making 08/17/19 14:45 History and examination consistent with clinical pneumonia coarse breath sounds fever moderate respiratory distress no wheezing Given mcc patient with persistent vital sign abnormalities will admit for IV antibiotics and further management.
[2019-08-17] MEDS ORDERED: PIPERACILLIN/TAZOB 4.5 GM 4.5 GM in DEXTROSE 5%-WATER 100 ML IVPB ONE (14:27)
[2019-08-17] MEDS ORDERED: VANCOMYCIN HCL 1,250 MG in DEXTROSE 5%-WATER - 250 ML IVPB ONE (14:28)
[2019-08-17] MEDS ORDERED: PIPERACILLIN/TAZOB 4.5 GM 4.5 GM/100 ML BAG IVPB ONE (14:45)
[2019-08-17] MEDS ORDERED: VANCOMYCIN 1 GRAM (PRE-DOCKED) 1,000 MG/250 ML BAG IVPB ONE (14:45)
--- NOTE | 2019-08-17 15:21 | HP ---
CHIEF COMPLAINT: PCP: HISTORY OF PRESENT ILLNESS: 28 y/o/m with developmental disability, Microcephaly, Seizure disorder, Asthma, Quadriparesis, Chronic hyponatremia, Dysphagia s/p G-Tube, Chronic microaspirations who presented from [facility] due to fever and tachypnea. Patient unable to provide history, no aide present at bedside. History obtained from chart review. Patient is still tachycardic and tachypnic in ED. ER course was notable for: (1) Vanc/Zosyn x1 given (2) CXR without any acute pathology noted (3) febrile to 100.3F Recent Travel: none PAST MEDICAL HISTORY: Microcephaly Seizure disorder Asthma Quadriparesis Chronic hyponatremia Dysphagia s/p G-Tube Chronic microaspirations PAST SURGICAL HISTORY: Scoliosis repair (07/2006) G-Tube insertion Social History: Smoking: none Alcohol: none Drugs: none Allergies Beef Containing Products Allergy (Unknown, Verified 08/17/19 10:44) erythromycin base Allergy (Verified 08/17/19 10:44) phenobarbital Allergy (Verified 08/17/19 10:44) venom-honey bee [bee venom (honey bee)] Allergy (Verified 08/17/19 10:44) HOME MEDICATIONS: Home Medications Medication Instructions Recorded Carbamazepine [Tegretol -] 280 mg GT BID 03/17/18 Cholecalciferol (Vitamin D3) 2,000 unit GT DAILY 03/17/18 [Vitamin D3] Omeprazole Magnesium [Prilosec] 20 mg GT DAILY 03/17/18 clonazePAM [KlonoPIN -] 1 mg GT TID 03/17/18 Budesonide [Pulmicort 0.5 mg 1 neb NEB BID 07/12/18 Nebulizer -] Diazepam [Diastat Acudial] 20 mg RC PRN PRN 07/12/18 Ipratropium/Albuterol Sulfate 3 ml IH QID PRN 07/12/18 [Iprat-Albut 0.5-3(2.5) mg/3 ml] levETIRAcetam [Keppra Oral 1,500 mg GT BID cup 10/06/18 Solution -] Baclofen 20 mg GT ASDIR 03/08/19 Apixaban [Eliquis] 5 mg GT BID 05/14/19 Tamsulosin HCl [Flomax] 0.4 mg GT DAILY 05/21/19 Mupirocin Cream [Bactroban 2% 1 applic TP QID 06/08/19 Cream -] Nystatin Cream [Mycostatin Cream -] 1 applic TP BID 06/08/19 Acetaminophen Oral Solution 480 mg GT Q6H PRN #30 tab 06/09/19 [Tylenol 160mg/5mL Oral Solution -] Amox-Tr/K Cl [Augmentin 875-125mg 1 tab GT BID@0800,1730 #2 tab 06/09/19 Tablet -] REVIEW OF SYSTEMS unable to obtain 2/2 patient mental status PHYSICAL EXAMINATION Vital Signs - 24 hr 08/17/19 08/17/19 10:45 13:58 Temperature 100.3 F H Pulse Rate 144 H Pulse Rate [ 126 H Apical] Respiratory 18 25 H Rate Blood Pressure 114/58 L Blood Pressure 137/85 [Left Arm] O2 Sat by Pulse 96 99 Oximetry (%) GENERAL: Awake, alert, no acute distress HEAD: Normal with no signs of trauma. EYES: PERRL, EOMI, no scleral icterus EARS, NOSE, THROAT: Moist mucous membranes, congested NECK: trachea midline, no JVD LUNGS: mild diffuse rhonchi, No wheezes, and no crackles. No accessory muscle use. HEART: Tachycardic ABDOMEN: Soft, nontender, not distended. PEG tube in place with mild surrounding erythema MUSCULOSKELETAL: contracted upper and lower extremities EXTREMITIES: 2+ pulses, warm, well-perfused. no edema NEUROLOGICAL: AAOx0, unable to assess SKIN: Warm, dry, normal turgor, no rashes or lesions noted, no sacral ulcers noted Laboratory Results - last 24 hr 08/17/19 08/17/19 08/17/19 11:29 11:29 11:29 WBC RBC Hgb Hct MCV MCH MCHC RDW Plt Count MPV Absolute Neuts (auto) Neutrophils % Lymphocytes % Monocytes % Eosinophils % Basophils % Nucleated RBC % PT with INR 16.90 H INR 1.43 H PTT (Actin FS) 42.0 H VBG pH POC VBG pCO2 POC VBG pO2 VBG HCO3 VBG O2 Sat (Rafa) VBG Base Excess Sodium Potassium Chloride Carbon Dioxide Anion Gap BUN Creatinine Est GFR (CKD-EPI)AfAm Est GFR (CKD-EPI)NonAf Random Glucose Lactic Acid 1.3 Calcium Total Bilirubin AST ALT Alkaline Phosphatase Troponin I < 0.02 Total Protein Albumin Urine Color Urine Appearance Urine pH Ur Specific [place] Urine Protein Urine Glucose (UA) Urine Ketones Urine Blood Urine Nitrite Urine Bilirubin Urine Urobilinogen Ur Leukocyte Esterase Influenza A (Rapid) Influenza B (Rapid) 08/17/19 08/17/19 08/17/19 11:29 11:29 11:29 WBC 11.8 H RBC 5.11 Hgb 14.6 Hct 42.3 D MCV 82.8 D MCH 28.6 MCHC 34.5 RDW 14.2 Plt Count 397 D MPV 7.7 Absolute Neuts (auto) 8.3 H Neutrophils % 70.1 D Lymphocytes % 18.9 D Monocytes % 10.2 Eosinophils % 0.3 D Basophils % 0.5 Nucleated RBC % 0 PT with INR INR PTT (Actin FS) VBG pH POC VBG pCO2 POC VBG pO2 VBG HCO3 VBG O2 Sat (Rafa) VBG Base Excess Sodium 132 L Potassium 4.2 Chloride 99 Carbon Dioxide 24 Anion Gap 9 BUN 7.3 Creatinine 0.4 L Est GFR (CKD-EPI)AfAm 188.66 Est GFR (CKD-EPI)NonAf 162.78 Random Glucose 94 Lactic Acid Calcium 8.7 Total Bilirubin 0.4 AST 31 ALT 42 Alkaline Phosphatase 135 H Troponin I Total Protein 8.1 Albumin 3.6 Urine Color Yellow Urine Appearance Cloudy Urine pH 8.5 H Ur Specific [place] 1.009 L Urine Protein Negative Urine Glucose (UA) Negative Urine Ketones Negative Urine Blood Negative Urine Nitrite Negative Urine Bilirubin Negative Urine Urobilinogen 0.2 Ur Leukocyte Esterase Negative Influenza A (Rapid) Influenza B (Rapid) 08/17/19 08/17/19 11:29 13:00 WBC RBC Hgb Hct MCV MCH MCHC RDW Plt Count MPV Absolute Neuts (auto) Neutrophils % Lymphocytes % Monocytes % Eosinophils % Basophils % Nucleated RBC % PT with INR INR PTT (Actin FS) VBG pH 7.47 H POC VBG pCO2 35.7 L POC VBG pO2 66.2 H VBG HCO3 25.6 VBG O2 Sat (Rafa) 92.2 H VBG Base Excess 2.6 H Sodium Potassium Chloride Carbon Dioxide Anion Gap BUN Creatinine Est GFR (CKD-EPI)AfAm Est GFR (CKD-EPI)NonAf Random Glucose Lactic Acid Calcium Total Bilirubin AST ALT Alkaline Phosphatase Troponin I Total Protein Albumin Urine Color Urine Appearance Urine pH Ur Specific [place] Urine Protein Urine Glucose (UA) Urine Ketones Urine Blood Urine Nitrite Urine Bilirubin Urine Urobilinogen Ur Leukocyte Esterase Influenza A (Rapid) Negative Influenza B (Rapid) Negative ASSESSMENT/PLAN: 28 y/o/m with developmental disability, Microcephaly, Seizure disorder, Asthma, Quadriparesis, Chronic hyponatremia, Dysphagia s/p G-Tube, Chronic microaspirations who presented from [facility] due to fever and tachypnea. Patient continued to be tachycadic in ED, low grade fever of 100.3F. Admitted for sepsis. #Sepsis likely 2/2 to PNA vs Acute Bronchitis - Initial CXR without acute process noted. Repeat CXR in the AM - Viral panel ordered - F/U blood cx, urine cx, Legionella antigen, sputum cx - Vanc/Zosyn x1 given in ED - Start Levofloxacin 750mg daily - NPO due to risk of aspiration, can consider started low dose feeds tomorrow - Suction hourly - IVF - UA negative for UTI - Tachycardia likely due to dehydration/sepsis. Will monitor #Seizure disorder history - continue Keppra, Carbamazepine, Diazepam #Asthma - Continue home Budesonide, Duonebs #GERD - Continue Omeprazole #Lower Extremity DVT history - Continue Eliquis #Development Delay - Hx of Cerebral Palsy - Continue home Clonazepam #Prophylaxis - Continue Eliquis #FEN - 3L of NS ordered - NS @100mls/hr - NPO - Hyponatremia #Disposition - admitted to med surg Visit type - Emergency Visit Emergency Visit: Yes ED Registration Date: 08/17/19 Care time: The patient presented to the Emergency Department on the above date and was hospitalized for further evaluation of their emergent condition. - New Patient This patient is new to me today: Yes Date on this admission: 08/17/19 - Critical Care Critical Care patient: No ATTENDING PHYSICIAN STATEMENT I saw and evaluated the patient. I reviewed the resident's note and discussed the case with the resident. I agree with the resident's findings and plan as documented. SUBJECTIVE: OBJECTIVE: ASSESSMENT AND PLAN:
[2019-08-17] MEDS ORDERED: ALBUTEROL SO4 0.083% IH SOL 2.5 MG/3 ML VIAL.NEB. NEB PRN (15:32)
[2019-08-17] MEDS ORDERED: SODIUM CHLORIDE 1,000 ML IV STA ×2 (15:38→18:11)
[2019-08-17] MEDS ORDERED: diazePAM ACUDIAL 5-7.5-10 MG 1 EACH KIT RC PRN (15:41)
[2019-08-17] MEDS ORDERED: PATIENT'S OWN MEDICATION (NON-FORMULARY) (Baclofen [Baclofen] 20 MG) GT SCH (15:45)
[2019-08-17] MEDS: SODIUM CHLORIDE 1,000 ML IV SCH ×2 (17:12→18:12)
--- NOTE | 2019-08-17 18:17 | PN ---
Teaching Attending Note Name of Resident: Zoë Churchill ATTENDING PHYSICIAN STATEMENT I saw and evaluated the patient. I reviewed the resident's note and discussed the case with the resident. I agree with the resident's findings and plan as documented. SUBJECTIVE: Non-verbal, unable to provide history. OBJECTIVE: Febrile, T 101. Tachycardia, Tachypnea. Last Vital Signs Temp Pulse Resp BP Pulse Ox 101.0 F H 129 H 29 H 102/56 L 96 08/17/19 17:36 08/17/19 17:36 08/17/19 17:36 08/17/19 17:36 08/17/19 17:36 HEENT - Atraumatic. Heart - S1, S2, Tachy Lungs - good air entry bilaterally. Abdomen - PEG in situ. Soft, non-tender. Bowel Sounds normal. Extremities - contractures UEs and LEs, no edema Laboratory Results - last 24 hr 08/17/19 08/17/19 08/17/19 11:29 11:29 11:29 WBC RBC Hgb Hct MCV MCH MCHC RDW Plt Count MPV Absolute Neuts (auto) Neutrophils % Lymphocytes % Monocytes % Eosinophils % Basophils % Nucleated RBC % PT with INR 16.90 H INR 1.43 H PTT (Actin FS) 42.0 H VBG pH POC VBG pCO2 POC VBG pO2 VBG HCO3 VBG O2 Sat (Rafa) VBG Base Excess Sodium Potassium Chloride Carbon Dioxide Anion Gap BUN Creatinine Est GFR (CKD-EPI)AfAm Est GFR (CKD-EPI)NonAf Random Glucose Lactic Acid 1.3 Calcium Total Bilirubin AST ALT Alkaline Phosphatase Troponin I < 0.02 Total Protein Albumin Urine Color Urine Appearance Urine pH Ur Specific [place] Urine Protein Urine Glucose (UA) Urine Ketones Urine Blood Urine Nitrite Urine Bilirubin Urine Urobilinogen Ur Leukocyte Esterase Influenza A (Rapid) Influenza B (Rapid) 08/17/19 08/17/19 08/17/19 11:29 11:29 11:29 WBC 11.8 H RBC 5.11 Hgb 14.6 Hct 42.3 D MCV 82.8 D MCH 28.6 MCHC 34.5 RDW 14.2 Plt Count 397 D MPV 7.7 Absolute Neuts (auto) 8.3 H Neutrophils % 70.1 D Lymphocytes % 18.9 D Monocytes % 10.2 Eosinophils % 0.3 D Basophils % 0.5 Nucleated RBC % 0 PT with INR INR PTT (Actin FS) VBG pH POC VBG pCO2 POC VBG pO2 VBG HCO3 VBG O2 Sat (Rafa) VBG Base Excess Sodium 132 L Potassium 4.2 Chloride 99 Carbon Dioxide 24 Anion Gap 9 BUN 7.3 Creatinine 0.4 L Est GFR (CKD-EPI)AfAm 188.66 Est GFR (CKD-EPI)NonAf 162.78 Random Glucose 94 Lactic Acid Calcium 8.7 Total Bilirubin 0.4 AST 31 ALT 42 Alkaline Phosphatase 135 H Troponin I Total Protein 8.1 Albumin 3.6 Urine Color Yellow Urine Appearance Cloudy Urine pH 8.5 H Ur Specific [place] 1.009 L Urine Protein Negative Urine Glucose (UA) Negative Urine Ketones Negative Urine Blood Negative Urine Nitrite Negative Urine Bilirubin Negative Urine Urobilinogen 0.2 Ur Leukocyte Esterase Negative Influenza A (Rapid) Influenza B (Rapid) 08/17/19 08/17/19 11:29 13:00 WBC RBC Hgb Hct MCV MCH MCHC RDW Plt Count MPV Absolute Neuts (auto) Neutrophils % Lymphocytes % Monocytes % Eosinophils % Basophils % Nucleated RBC % PT with INR INR PTT (Actin FS) VBG pH 7.47 H POC VBG pCO2 35.7 L POC VBG pO2 66.2 H VBG HCO3 25.6 VBG O2 Sat (Rafa) 92.2 H VBG Base Excess 2.6 H Sodium Potassium Chloride Carbon Dioxide Anion Gap BUN Creatinine Est GFR (CKD-EPI)AfAm Est GFR (CKD-EPI)NonAf Random Glucose Lactic Acid Calcium Total Bilirubin AST ALT Alkaline Phosphatase Troponin I Total Protein Albumin Urine Color Urine Appearance Urine pH Ur Specific [place] Urine Protein Urine Glucose (UA) Urine Ketones Urine Blood Urine Nitrite Urine Bilirubin Urine Urobilinogen Ur Leukocyte Esterase Influenza A (Rapid) Negative Influenza B (Rapid) Negative Current Medications Generic Name Dose Route Start Last Admin Trade Name Freq PRN Reason Stop Dose Admin Albuterol/Ipratropium 1 amp 08/17/19 15:41 Duoneb - NEB Q6H PRN WHEEZING Apixaban 5 mg 08/17/19 22:00 Eliquis - PEG BID ALEKSANDR Budesonide 1 amp 08/17/19 20:00 Pulmicort 0.5 Mg Nebulizer - NEB RBID ALEKSANDR Carbamazepine 280 mg 08/17/19 22:00 Tegretol Oral Suspension - GT BID [facility] Cholecalciferol 2,000 unit 08/18/19 10:00 Vitamin D3 Oral Solution - GT DAILY ALEKSANDR Clonazepam 1 mg 08/17/19 22:00 Klonopin - GT TID ALEKSANDR Diazepam 20 mg 08/17/19 15:41 Diastat Rectal Gel - RC DAILY PRN Seizures occuring 5 min + Famotidine 20 mg 08/17/19 22:00 Pepcid NGT BID ALEKSANDR Sodium Chloride 1,000 mls @ 100 mls/hr 08/17/19 18:00 08/17/19 17:12 Normal Saline - IV 100 mls/hr ASDIR ALEKSANDR Administration Levofloxacin 750 mg in 150 mls @ 100 mls/hr 08/17/19 18:00 08/17/19 17:10 Levaquin 750 Mg Premixed Ivpb - IVPB 100 mls/hr DAILY [facility] Administration Protocol Levetiracetam 1,500 mg 08/17/19 22:00 Keppra Oral Solution - GT BID [facility] Non-Formulary Medication 20 mg 08/17/19 15:45 Baclofen [Baclofen] GT ASDIR [facility] Nystatin 1 applic 08/17/19 22:00 Mycostatin Cream - TP BID ALEKSANDR Tamsulosin HCl 0.4 mg 08/18/19 08:30 Flomax - PO DAILY@0830 [facility] Home Medications Medication Instructions Recorded Carbamazepine [Tegretol -] 280 mg GT BID 03/17/18 Cholecalciferol (Vitamin D3) 2,000 unit GT DAILY 03/17/18 [Vitamin D3] Omeprazole Magnesium [Prilosec] 20 mg GT DAILY 03/17/18 clonazePAM [KlonoPIN -] 1 mg GT TID 03/17/18 Budesonide [Pulmicort 0.5 mg 1 neb NEB BID 07/12/18 Nebulizer -] Diazepam [Diastat Acudial] 20 mg RC PRN PRN 07/12/18 Ipratropium/Albuterol Sulfate 3 ml IH QID PRN 07/12/18 [Iprat-Albut 0.5-3(2.5) mg/3 ml] levETIRAcetam [Keppra Oral 1,500 mg GT BID cup 10/06/18 Solution -] Baclofen 20 mg GT ASDIR 03/08/19 Apixaban [Eliquis] 5 mg GT BID 05/14/19 Tamsulosin HCl [Flomax] 0.4 mg GT DAILY 05/21/19 Mupirocin Cream [Bactroban 2% 1 applic TP QID 06/08/19 Cream -] Nystatin Cream [Mycostatin Cream -] 1 applic TP BID 06/08/19 Acetaminophen Oral Solution 480 mg GT Q6H PRN #30 tab 06/09/19 [Tylenol 160mg/5mL Oral Solution -] ASSESSMENT AND PLAN: 28 year old male [place] resident with developmental delay, seizure disorder, Functional quadriplegia, Hx DVT, chronic/recurrent aspiration secondary to dysphagia, Asthma, scoliosis, s/p Jasmin fundoplication presented with fever and SOB. 1. Sepsis secondary to Acute Bronchitis. No evidence of consolidation on CXR - repeat in AM Received Vanc/Zosyn in ED. Continue Levofloxacin. IV hydration. 2. Seizure Disorder - Continue Keppra, Carbamazepine. Diazepam PRN. 3. Hx of LE DVT - on Eliquis. 4. Asthma -no evidence of acute exacerbation - Continue Pulmicort, DuoNeb. 5. GERD - Continue Omeprazole. 6. Developmental Delay/Cerebral Palsy - on Clonazepam. DVT Px - on Eliquis.
[2019-08-17] MEDS: BUDESONIDE 0.5 MG/2 ML INH SUSP VIAL NEB SCH (20:00)
[2019-08-17] MEDS: levETIRAcetam 500 MG/5 ML ORAL SOLUTION (UNIT-DOSE CUPS) GT SCH (23:40)
[2019-08-17] MEDS: carBAMazepine 200 MG/10 ML UNIT-DOSE CUP GT SCH (23:42)
[2019-08-17] MEDS: FAMOTIDINE 40 MG/5 ML ORAL SUSPENSION NGT SCH (23:42)
[2019-08-17] MEDS: clonazePAM 0.5 MG TABLET GT SCH (23:43)
[2019-08-17] MEDS: APIXABAN 5 MG TABLET PEG SCH (23:45)
[2019-08-18] MEDS: NYSTATIN 100,000 UNIT/GM TOPICAL CREAM 15 GM TUBE TP SCH ×3 (00:37→21:34)
[2019-08-18] MEDS: SODIUM CHLORIDE 1,000 ML IV SCH ×2 (06:46→17:09)
[2019-08-18] MEDS: clonazePAM 0.5 MG TABLET GT SCH ×3 (06:47→21:27)
[2019-08-18] MEDS: BUDESONIDE 0.5 MG/2 ML INH SUSP VIAL NEB SCH ×2 (08:34→20:30)
[2019-08-18] MEDS ORDERED: PT OWN MED DRAWER 7, Y5N ONE ×2 (10:03→20:38)
[2019-08-18 10:32] LABS: HEMATOCRIT 25.2 % (35.4-49); HEMOGLOBIN 8.3 GM/dL (11.7-16.9); MCH 28.1 pg (25.7-33.7); MCHC 33.1 g/dl (32.0-35.9); PLATELET COUNT 187 K/MM3 (134-434); RBC 2.96 M/mm3 (4.00-5.60); RDW 14.4 % (11.9-15.9)
[2019-08-18] MEDS: levETIRAcetam 500 MG/5 ML ORAL SOLUTION (UNIT-DOSE CUPS) GT SCH ×2 (10:35→21:27)
[2019-08-18] MEDS: APIXABAN 5 MG TABLET PEG SCH ×2 (10:36→21:27)
[2019-08-18] MEDS: TAMSULOSIN HCL 0.4 MG CAP PO SCH (10:36)
[2019-08-18] MEDS: FAMOTIDINE 40 MG/5 ML ORAL SUSPENSION NGT SCH ×2 (10:37→21:27)
[2019-08-18] MEDS: carBAMazepine 200 MG/10 ML UNIT-DOSE CUP GT SCH ×2 (10:38→21:28)
[2019-08-18] MEDS: CHOLECALCIFEROL (VIT D SOLUTION) 400 UNIT/1 ML DROPS GT SCH (12:37)
--- NOTE | 2019-08-18 13:29 | PN ---
Physical Exam: SUBJECTIVE: Patient seen and examined. Patient seen in bed lying comfortably. No acute events overnight. OBJECTIVE: Vital Signs Period Temp Pulse Resp BP Sys/Don Pulse Ox Last 24 Hr 97.0 F-101.0 F 112-139 22-29 79-162/46-92 96-99 GENERAL: Awake, alert, no acute distress HEAD: Normal with no signs of trauma. EYES: EOMI, no scleral icterus EARS, NOSE, THROAT: Moist mucous membranes, congested NECK: trachea midline, supple LUNGS: scattered rhonchi. No wheezes, no crackles. No accessory muscle use. HEART: Tachycardic ABDOMEN: Soft, nontender, not distended. PEG tube in place with mild surrounding erythema MUSCULOSKELETAL: contracted upper and lower extremities EXTREMITIES: 2+ pulses, warm, well-perfused. no edema NEUROLOGICAL: unable to assess SKIN: Warm, dry, normal turgor, no rashes or lesions noted, no sacral ulcers noted Laboratory Results - last 24 hr 08/17/19 08/17/19 08/18/19 13:00 18:20 09:27 WBC 6.0 RBC 2.96 L Hgb 8.3 L Hct 25.2 L D MCV 85.0 MCH 28.1 MCHC 33.1 RDW 14.4 Plt Count 187 D MPV 7.0 L Sodium Potassium Chloride Carbon Dioxide Anion Gap BUN Creatinine Est GFR (CKD-EPI)AfAm Est GFR (CKD-EPI)NonAf Random Glucose Calcium Magnesium Total Bilirubin AST ALT Alkaline Phosphatase Total Protein Albumin Influenza A (Rapid) Negative Influenza B (Rapid) Negative RSV Rapid Negative 08/18/19 09:27 WBC RBC Hgb Hct MCV MCH MCHC RDW Plt Count MPV Sodium Cancelled Potassium Cancelled Chloride Cancelled Carbon Dioxide Cancelled Anion Gap Cancelled BUN Cancelled Creatinine Cancelled Est GFR (CKD-EPI)AfAm Cancelled Est GFR (CKD-EPI)NonAf Cancelled Random Glucose Cancelled Calcium Cancelled Magnesium Cancelled Total Bilirubin Cancelled AST Cancelled ALT Cancelled Alkaline Phosphatase Cancelled Total Protein Cancelled Albumin Cancelled Influenza A (Rapid) Influenza B (Rapid) RSV Rapid Active Medications Generic Name Dose Route Start Last Admin Trade Name Freq PRN Reason Stop Dose Admin Albuterol/Ipratropium 1 amp 08/17/19 15:41 Duoneb - NEB Q6H PRN WHEEZING Apixaban 5 mg 08/17/19 22:00 08/18/19 10:36 Eliquis - PEG 5 mg BID ALEKSANDR Administration Budesonide 1 amp 08/17/19 20:00 08/18/19 08:34 Pulmicort 0.5 Mg Nebulizer - NEB 1 amp RBID ALEKSANDR Administration Carbamazepine 280 mg 08/17/19 22:00 08/18/19 10:38 Tegretol Oral Suspension - GT 280 mg BID ALEKSANDR Administration Cholecalciferol 2,000 unit 08/18/19 10:00 08/18/19 12:37 Vitamin D3 Oral Solution - GT 2,000 units DAILY ALEKSANDR Administration Clonazepam 1 mg 08/17/19 22:00 08/18/19 06:47 Klonopin - GT 1 mg TID ALEKSANDR Administration Diazepam 20 mg 08/17/19 15:41 Diastat Rectal Gel - RC DAILY PRN Seizures occuring 5 min + Famotidine 20 mg 08/17/19 22:00 08/18/19 10:37 Pepcid NGT 20 mg BID ALEKSANDR Administration Sodium Chloride 1,000 mls @ 100 mls/hr 08/17/19 18:00 08/18/19 06:46 Normal Saline - IV 100 mls/hr ASDIR ALEKSANDR Administration Levofloxacin 750 mg in 150 mls @ 100 mls/hr 08/17/19 18:00 08/18/19 10:35 Levaquin 750 Mg Premixed Ivpb - IVPB 100 mls/hr DAILY ALEKSANDR Administration Protocol Levetiracetam 1,500 mg 08/17/19 22:00 08/18/19 10:35 Keppra Oral Solution - GT 1,500 mg BID ALEKSANDR Administration Non-Formulary Medication 20 mg 08/17/19 15:45 Baclofen [Baclofen] GT ASDIR ALEKSANDR Nystatin 1 applic 08/17/19 22:00 08/18/19 10:52 Mycostatin Cream - TP 1 applic BID ALEKSANDR Administration Tamsulosin HCl 0.4 mg 08/18/19 08:30 08/18/19 10:36 Flomax - PO 0.4 mg DAILY@0830 ALEKSANDR Administration ASSESSMENT/PLAN: 28 y/o/m with developmental disability, Microcephaly, Seizure disorder, Asthma, Quadriparesis, Chronic hyponatremia, Dysphagia s/p G-Tube, Chronic microaspirations who presented from [facility] due to fever and tachypnea. Patient continued to be tachycadic in ED, low grade fever of 100.3F. Admitted for sepsis. #Sepsis likely 2/2 to Acute Bronchitis - Initial CXR without acute process noted. Repeat CXR without changes. - Blood, Urine Cx without growth. Urine Legionella negative - Sputum cx ordered - Vanc/Zosyn x1 given in ED - Continue Levofloxacin 750mg daily - Dietary consult placed, can start feeds pending recommendations - Suction hourly - IVF - UA negative for UTI - Tachycardia likely due to dehydration/sepsis. Will monitor #Seizure disorder history - continue Keppra, Carbamazepine, Diazepam #Asthma - Continue home Budesonide, Duonebs #GERD - Continue Omeprazole #Lower Extremity DVT history - Continue Eliquis #Development Delay - Hx of Cerebral Palsy - Continue home Clonazepam #Prophylaxis - Continue Eliquis #FEN - NS 75mls/hr - Can start feeds pending dietary recommendations #Disposition - admitted to med surg Visit type - Emergency Visit Emergency Visit: Yes ED Registration Date: 08/17/19 Care time: The patient presented to the Emergency Department on the above date and was hospitalized for further evaluation of their emergent condition. - New Patient This patient is new to me today: No - Critical Care Critical Care patient: No ATTENDING PHYSICIAN STATEMENT I saw and evaluated the patient. I reviewed the resident's note and discussed the case with the resident. I agree with the resident's findings and plan as documented. SUBJECTIVE: OBJECTIVE: ASSESSMENT AND PLAN:
[2019-08-18 15:18] VITALS: BMI 20.9
[2019-08-18 15:54] LABS: HEMATOCRIT 35.5 % (35.4-49); HEMOGLOBIN 11.7 GM/dL (11.7-16.9); MCH 27.9 pg (25.7-33.7); MCHC 33.1 g/dl (32.0-35.9); MEAN CELL VOLUME 84.2 fl (80-96); MEAN PLT VOLUME 7.3 fl (7.5-11.1); PLATELET COUNT 265 K/MM3 (134-434); RBC 4.21 M/mm3 (4.00-5.60); RDW 14.3 % (11.9-15.9); WHITE BLOOD COUNT 8.2 K/mm3 (4.0-10.0)
--- NOTE | 2019-08-18 16:13 | PN ---
Teaching Attending Note Name of Resident: Zoë Churchill ATTENDING PHYSICIAN STATEMENT I saw and evaluated the patient. I reviewed the resident's note and discussed the case with the resident. I agree with the resident's findings and plan as documented. SUBJECTIVE: Non-verbal, unable to provide history. OBJECTIVE: Fever resolved. Tmax 99.9. Tachycardia. Last Vital Signs Temp Pulse Resp BP Pulse Ox 99.1 F 105 H 18 132/86 96 08/18/19 11:00 08/18/19 11:00 08/18/19 11:00 08/18/19 11:00 08/17/19 17:36 Heart - S1, S2, Tachy Lungs - good air entry bilaterally. Abdomen - PEG in situ. Soft, non-tender. Bowel Sounds normal. Extremities - contractures UEs and LEs, no edema Laboratory Results - last 24 hr 08/17/19 08/18/19 08/18/19 18:20 09:27 09:27 WBC 6.0 RBC 2.96 L Hgb 8.3 L Hct 25.2 L D MCV 85.0 MCH 28.1 MCHC 33.1 RDW 14.4 Plt Count 187 D MPV 7.0 L Sodium Cancelled Potassium Cancelled Chloride Cancelled Carbon Dioxide Cancelled Anion Gap Cancelled BUN Cancelled Creatinine Cancelled Est GFR (CKD-EPI)AfAm Cancelled Est GFR (CKD-EPI)NonAf Cancelled Random Glucose Cancelled Calcium Cancelled Magnesium Cancelled Total Bilirubin Cancelled AST Cancelled ALT Cancelled Alkaline Phosphatase Cancelled Total Protein Cancelled Albumin Cancelled RSV Rapid Negative 08/18/19 14:40 WBC 8.2 RBC 4.21 Hgb 11.7 Hct 35.5 D MCV 84.2 MCH 27.9 MCHC 33.1 RDW 14.3 Plt Count 265 D MPV 7.3 L Sodium Potassium Chloride Carbon Dioxide Anion Gap BUN Creatinine Est GFR (CKD-EPI)AfAm Est GFR (CKD-EPI)NonAf Random Glucose Calcium Magnesium Total Bilirubin AST ALT Alkaline Phosphatase Total Protein Albumin RSV Rapid Current Medications Generic Name Dose Route Start Last Admin Trade Name Freq PRN Reason Stop Dose Admin Albuterol/Ipratropium 1 amp 08/17/19 15:41 Duoneb - NEB Q6H PRN WHEEZING Apixaban 5 mg 08/17/19 22:00 08/18/19 10:36 Eliquis - PEG 5 mg BID ALEKSANDR Administration Budesonide 1 amp 08/17/19 20:00 08/18/19 08:34 Pulmicort 0.5 Mg Nebulizer - NEB 1 amp RBID ALEKSANDR Administration Carbamazepine 280 mg 08/17/19 22:00 08/18/19 10:38 Tegretol Oral Suspension - GT 280 mg BID ALEKSANDR Administration Cholecalciferol 2,000 unit 08/18/19 10:00 08/18/19 12:37 Vitamin D3 Oral Solution - GT 2,000 units DAILY ALEKSANDR Administration Clonazepam 1 mg 08/17/19 22:00 08/18/19 14:49 Klonopin - GT 1 mg TID ALEKSANDR Administration Diazepam 20 mg 08/17/19 15:41 Diastat Rectal Gel - RC DAILY PRN Seizures occuring 5 min + Famotidine 20 mg 08/17/19 22:00 08/18/19 10:37 Pepcid NGT 20 mg BID ALEKSANDR Administration Sodium Chloride 1,000 mls @ 100 mls/hr 08/17/19 18:00 08/18/19 06:46 Normal Saline - IV 100 mls/hr ASDIR ALEKSANDR Administration Levofloxacin 750 mg in 150 mls @ 100 mls/hr 08/17/19 18:00 08/18/19 10:35 Levaquin 750 Mg Premixed Ivpb - IVPB 100 mls/hr DAILY ALEKSANDR Administration Protocol Levetiracetam 1,500 mg 08/17/19 22:00 08/18/19 10:35 Keppra Oral Solution - GT 1,500 mg BID ALEKASNDR Administration Non-Formulary Medication 20 mg 08/17/19 15:45 Baclofen [Baclofen] GT ASDIR ALEKSANDR Nystatin 1 applic 08/17/19 22:00 08/18/19 10:52 Mycostatin Cream - TP 1 applic BID ALEKSANDR Administration Tamsulosin HCl 0.4 mg 08/18/19 08:30 08/18/19 10:36 Flomax - PO 0.4 mg DAILY@0830 ALEKSANDR Administration Home Medications Medication Instructions Recorded Carbamazepine [Tegretol -] 280 mg GT BID 03/17/18 Cholecalciferol (Vitamin D3) 2,000 unit GT DAILY 03/17/18 [Vitamin D3] Omeprazole Magnesium [Prilosec] 20 mg GT DAILY 03/17/18 clonazePAM [KlonoPIN -] 1 mg GT TID 03/17/18 Budesonide [Pulmicort 0.5 mg 1 neb NEB BID 07/12/18 Nebulizer -] Diazepam [Diastat Acudial] 20 mg RC PRN PRN 07/12/18 Ipratropium/Albuterol Sulfate 3 ml IH QID PRN 07/12/18 [Iprat-Albut 0.5-3(2.5) mg/3 ml] levETIRAcetam [Keppra Oral 1,500 mg GT BID cup 10/06/18 Solution -] Baclofen 20 mg GT ASDIR 03/08/19 Apixaban [Eliquis] 5 mg GT BID 05/14/19 Tamsulosin HCl [Flomax] 0.4 mg GT DAILY 05/21/19 Diazepam [Valium] 10 mg GT TID@0600,1700,2100 08/17/19 Omeprazole Magnesium [Prilosec] 20 mg PO DAILY 08/18/19 ASSESSMENT AND PLAN: 28 year old male [place] resident with Developmental Delay, Seizure Disorder, Functional Quadriplegia, Hx DVT, chronic/recurrent aspiration secondary to Dysphagia, Asthma, Scoliosis, s/p Jasmin fundoplication presented with fever and SOB. 1. Sepsis secondary to Acute Bronchitis - improving. No evidence of consolidation on CXR Flu/RSV negative. Blood Cx negative. Continue Levofloxacin Fever resolving. 2. Seizure Disorder - Continue Keppra, Carbamazepine. Diazepam PRN. 3. Hx of LE DVT - on Eliquis. 4. Asthma -no evidence of acute exacerbation - Continue Pulmicort, DuoNeb. 5. GERD - Continue Omeprazole. 6. Developmental Delay/Cerebral Palsy - on Clonazepam. DVT Px - on Eliquis.
[2019-08-18 16:45] LABS: ALBUMIN 2.7 g/dl (3.4-5.0); BILIRUBIN,TOTAL 0.4 mg/dL (0.2-1); BLOOD UREA NITROGEN 8.4 mg/dL (7-18); CALCIUM 8.2 mg/dL (8.5-10.1); CREATININE 0.8 mg/dL (0.55-1.3); MAGNESIUM 2.2 mg/dL (1.8-2.4); POTASSIUM 3.5 mmol/L (3.5-5.1); TOT PROT 6.4 g/dl (6.4-8.2)
[2019-08-19] MEDS ORDERED: PT OWN MED DRAWER 7, Y5N ONE ×3 (05:24→20:32)
[2019-08-19] MEDS: clonazePAM 0.5 MG TABLET GT SCH ×3 (05:53→22:13)
[2019-08-19] MEDS: BUDESONIDE 0.5 MG/2 ML INH SUSP VIAL NEB SCH ×2 (07:38→21:33)
[2019-08-19 08:27] LABS: HEMATOCRIT 34.7 % (35.4-49); HEMOGLOBIN 11.5 GM/dL (11.7-16.9); MCH 28.1 pg (25.7-33.7); MCHC 33.3 g/dl (32.0-35.9); MEAN CELL VOLUME 84.4 fl (80-96); MEAN PLT VOLUME 7.5 fl (7.5-11.1); PLATELET COUNT 269 K/MM3 (134-434); RBC 4.11 M/mm3 (4.00-5.60); RDW 14.4 % (11.9-15.9); WHITE BLOOD COUNT 8.7 K/mm3 (4.0-10.0)
[2019-08-19 08:51] LABS: ALBUMIN 2.8 g/dl (3.4-5.0); BILIRUBIN,TOTAL 0.5 mg/dL (0.2-1); BLOOD UREA NITROGEN 8.4 mg/dL (7-18); CALCIUM 8.3 mg/dL (8.5-10.1); CREATININE 0.5 mg/dL (0.55-1.3); POTASSIUM 3.2 mmol/L (3.5-5.1); TOT PROT 6.6 g/dl (6.4-8.2)
[2019-08-19] MEDS: CLINDAMYCIN 600MG PREMIX IVPB 600 MG/50 ML BAG IVPB SCH ×2 (11:13→17:03)
[2019-08-19] MEDS: carBAMazepine 200 MG/10 ML UNIT-DOSE CUP GT SCH ×2 (11:14→22:14)
[2019-08-19] MEDS: CHOLECALCIFEROL (VIT D SOLUTION) 400 UNIT/1 ML DROPS GT SCH (11:14)
[2019-08-19] MEDS: FAMOTIDINE 40 MG/5 ML ORAL SUSPENSION NGT SCH ×2 (11:14→22:14)
[2019-08-19] MEDS: POTASSIUM CHLORIDE ORAL LIQUID 20 MEQ/15 ML PO SCH ×2 (11:15→22:13)
[2019-08-19] MEDS: levETIRAcetam 500 MG/5 ML ORAL SOLUTION (UNIT-DOSE CUPS) GT SCH ×2 (11:15→22:14)
[2019-08-19] MEDS: TAMSULOSIN HCL 0.4 MG CAP PO SCH (11:16)
[2019-08-19] MEDS: APIXABAN 5 MG TABLET PEG SCH ×2 (11:16→22:13)
[2019-08-19] MEDS: NYSTATIN 100,000 UNIT/GM TOPICAL CREAM 15 GM TUBE TP SCH ×2 (11:17→22:14)
--- NOTE | 2019-08-19 12:41 | PN ---
Physical Exam: SUBJECTIVE: Patient seen and examined. No acute events overnight. Patient had a low grade fever of 100.1F last night. OBJECTIVE: Vital Signs Period Temp Pulse Resp BP Sys/Don Pulse Ox Last 24 Hr 99.0 F-100.1 F 98-112 18-22 130-140/67-87 94 GENERAL: Awake, alert, no acute distress HEAD: Normal with no signs of trauma. EYES: EOMI, no scleral icterus EARS, NOSE, THROAT: Moist mucous membranes, congested NECK: trachea midline, supple LUNGS: clear to auscultation bilaterally. No wheezes, no crackles. No accessory muscle use. HEART: RRR, S1, S2 ABDOMEN: Soft, nontender, not distended. PEG tube in place with mild surrounding erythema MUSCULOSKELETAL: contracted upper and lower extremities EXTREMITIES: 2+ pulses, warm, well-perfused. no edema SKIN: Warm, dry, normal turgor, no rashes or lesions noted, no sacral ulcers noted Laboratory Results - last 24 hr 08/18/19 08/18/19 08/19/19 14:40 14:40 07:20 WBC 8.2 8.7 RBC 4.21 4.11 Hgb 11.7 11.5 L Hct 35.5 D 34.7 L MCV 84.2 84.4 MCH 27.9 28.1 MCHC 33.1 33.3 RDW 14.3 14.4 Plt Count 265 D 269 MPV 7.3 L 7.5 Sodium 142 Potassium 3.5 Chloride 111 H Carbon Dioxide 21 Anion Gap 10 BUN 8.4 Creatinine 0.8 Est GFR (CKD-EPI)AfAm 141.89 Est GFR (CKD-EPI)NonAf 122.43 Random Glucose 79 Calcium 8.2 L Magnesium 2.2 Total Bilirubin 0.4 AST 14 L ALT 30 Alkaline Phosphatase 103 Total Protein 6.4 Albumin 2.7 L 08/19/19 07:20 WBC RBC Hgb Hct MCV MCH MCHC RDW Plt Count MPV Sodium 142 Potassium 3.2 L Chloride 110 H Carbon Dioxide 24 Anion Gap 8 BUN 8.4 Creatinine 0.5 L Est GFR (CKD-EPI)AfAm 172.13 Est GFR (CKD-EPI)NonAf 148.51 Random Glucose 88 Calcium 8.3 L Magnesium Total Bilirubin 0.5 AST 17 ALT 30 Alkaline Phosphatase 100 Total Protein 6.6 Albumin 2.8 L Active Medications Generic Name Dose Route Start Last Admin Trade Name Freq PRN Reason Stop Dose Admin Albuterol/Ipratropium 1 amp 08/17/19 15:41 Duoneb - NEB Q6H PRN WHEEZING Apixaban 5 mg 08/17/19 22:00 08/19/19 11:16 Eliquis - PEG 5 mg BID ALEKSANDR Administration Budesonide 1 amp 08/17/19 20:00 08/19/19 07:38 Pulmicort 0.5 Mg Nebulizer - NEB 1 amp RBID ALEKSANDR Administration Carbamazepine 280 mg 08/17/19 22:00 08/19/19 11:14 Tegretol Oral Suspension - GT 280 mg BID ALEKSANDR Administration Cholecalciferol 2,000 unit 08/18/19 10:00 08/19/19 11:14 Vitamin D3 Oral Solution - GT 2,000 units DAILY ALEKSANDR Administration Clonazepam 1 mg 08/17/19 22:00 08/19/19 05:53 Klonopin - GT 1 mg TID ALEKSANDR Administration Diazepam 20 mg 08/17/19 15:41 Diastat Rectal Gel - RC DAILY PRN Seizures occuring 5 min + Famotidine 20 mg 08/17/19 22:00 08/19/19 11:14 Pepcid NGT 20 mg BID ALEKSANDR Administration Levofloxacin 750 mg in 150 mls @ 100 mls/hr 08/17/19 18:00 08/19/19 11:13 Levaquin 750 Mg Premixed Ivpb - IVPB 100 mls/hr DAILY ALEKSANDR Administration Protocol Sodium Chloride 1,000 mls @ 75 mls/hr 08/18/19 16:19 08/18/19 17:09 Normal Saline - IV 75 mls/hr ASDIR ALEKSANDR Administration Clindamycin Phosphate 600 mg in 50 mls @ 100 mls/hr 08/19/19 10:00 08/19/19 11:13 Cleocin 600 Mg Premix Ivpb - IVPB 100 mls/hr Q8H-IV ALEKSANDR Administration Protocol Levetiracetam 1,500 mg 08/17/19 22:00 08/19/19 11:15 Keppra Oral Solution - GT 1,500 mg BID ALEKSANDR Administration Non-Formulary Medication 20 mg 08/17/19 15:45 Baclofen [Baclofen] GT ASDIR ALEKSANDR Nystatin 1 applic 08/17/19 22:00 08/19/19 11:17 Mycostatin Cream - TP 1 applic BID ALEKSANDR Administration Potassium Chloride 40 meq 08/19/19 10:00 08/19/19 11:15 Potassium Chloride Oral Liquid PO 08/19/19 22:01 40 meq BID ALEKSANDR Administration Tamsulosin HCl 0.4 mg 08/18/19 08:30 08/19/19 11:16 Flomax - PO 0.4 mg DAILY@0830 ALEKSANDR Administration ASSESSMENT/PLAN: 28 y/o/m with developmental disability, Microcephaly, Seizure disorder, Asthma, Quadriparesis, Chronic hyponatremia, Dysphagia s/p G-Tube, Chronic microaspirations who presented from [facility] due to fever and tachypnea. Patient continued to be tachycadic in ED, low grade fever of 100.3F. Admitted for sepsis. #Sepsis likely 2/2 to Acute Bronchitis - Initial CXR without acute process noted. Repeat CXR without changes. - Blood, Urine Cx without growth. Urine Legionella negative - Sputum cx ordered - Vanc/Zosyn x1 given in ED - Continue Levofloxacin 750mg daily - Dietary consult placed, started feeds based on recommendations - Suction hourly - IVF - UA negative for UTI - Tachycardia improved - ID consulted for repeat low grade fever #Seizure disorder history - continue Keppra, Carbamazepine, Diazepam #Asthma - Continue home Budesonide, Duonebs #GERD - Continue Omeprazole #Lower Extremity DVT history - Continue Eliquis #Development Delay - Hx of Cerebral Palsy - Continue home Clonazepam #Prophylaxis - Continue Eliquis #FEN - NS 75mls/hr - Tube feeds as per dietary recommendations #Disposition - med/surg admission; pending ID consult for repeat fever Visit type - Emergency Visit Emergency Visit: Yes ED Registration Date: 08/17/19 Care time: The patient presented to the Emergency Department on the above date and was hospitalized for further evaluation of their emergent condition. - New Patient This patient is new to me today: No - Critical Care Critical Care patient: No ATTENDING PHYSICIAN STATEMENT I saw and evaluated the patient. I reviewed the resident's note and discussed the case with the resident. I agree with the resident's findings and plan as documented. SUBJECTIVE: OBJECTIVE: ASSESSMENT AND PLAN:
--- NOTE | 2019-08-19 13:56 | PN ---
Teaching Attending Note Name of Resident: Zoë Churchill ATTENDING PHYSICIAN STATEMENT I saw and evaluated the patient. I reviewed the resident's note and discussed the case with the resident. I agree with the resident's findings and plan as documented. SUBJECTIVE: Non-verbal, unable to provide history. OBJECTIVE: Fever again overnight, Tmax 100.1. Comfortable. Last Vital Signs Temp Pulse Resp BP Pulse Ox 99.6 F 98 H 18 139/75 94 L 08/19/19 09:15 08/19/19 09:15 08/19/19 09:15 08/19/19 09:15 08/18/19 21:00 Heart - S1, S2, Tachy Lungs - good air entry bilaterally. Abdomen - PEG in situ. Mild irritation at PEG site, no cellulitis. Soft, non- tender. Bowel Sounds normal. Extremities - contractures UEs and LEs, no edema Laboratory Results - last 24 hr 08/18/19 08/18/19 08/19/19 14:40 14:40 07:20 WBC 8.2 8.7 RBC 4.21 4.11 Hgb 11.7 11.5 L Hct 35.5 D 34.7 L MCV 84.2 84.4 MCH 27.9 28.1 MCHC 33.1 33.3 RDW 14.3 14.4 Plt Count 265 D 269 MPV 7.3 L 7.5 Sodium 142 Potassium 3.5 Chloride 111 H Carbon Dioxide 21 Anion Gap 10 BUN 8.4 Creatinine 0.8 Est GFR (CKD-EPI)AfAm 141.89 Est GFR (CKD-EPI)NonAf 122.43 Random Glucose 79 Calcium 8.2 L Magnesium 2.2 Total Bilirubin 0.4 AST 14 L ALT 30 Alkaline Phosphatase 103 Total Protein 6.4 Albumin 2.7 L 08/19/19 07:20 WBC RBC Hgb Hct MCV MCH MCHC RDW Plt Count MPV Sodium 142 Potassium 3.2 L Chloride 110 H Carbon Dioxide 24 Anion Gap 8 BUN 8.4 Creatinine 0.5 L Est GFR (CKD-EPI)AfAm 172.13 Est GFR (CKD-EPI)NonAf 148.51 Random Glucose 88 Calcium 8.3 L Magnesium Total Bilirubin 0.5 AST 17 ALT 30 Alkaline Phosphatase 100 Total Protein 6.6 Albumin 2.8 L Current Medications Generic Name Dose Route Start Last Admin Trade Name Freq PRN Reason Stop Dose Admin Albuterol/Ipratropium 1 amp 08/17/19 15:41 Duoneb - NEB Q6H PRN WHEEZING Apixaban 5 mg 08/17/19 22:00 08/19/19 11:16 Eliquis - PEG 5 mg BID ALEKSANDR Administration Budesonide 1 amp 08/17/19 20:00 08/19/19 07:38 Pulmicort 0.5 Mg Nebulizer - NEB 1 amp RBID ALEKSANDR Administration Carbamazepine 280 mg 08/17/19 22:00 08/19/19 11:14 Tegretol Oral Suspension - GT 280 mg BID ALEKSANDR Administration Cholecalciferol 2,000 unit 08/18/19 10:00 08/19/19 11:14 Vitamin D3 Oral Solution - GT 2,000 units DAILY ALEKSANDR Administration Clonazepam 1 mg 08/17/19 22:00 08/19/19 05:53 Klonopin - GT 1 mg TID ALEKSANDR Administration Diazepam 20 mg 08/17/19 15:41 Diastat Rectal Gel - RC DAILY PRN Seizures occuring 5 min + Famotidine 20 mg 08/17/19 22:00 08/19/19 11:14 Pepcid NGT 20 mg BID ALEKSANDR Administration Levofloxacin 750 mg in 150 mls @ 100 mls/hr 08/17/19 18:00 08/19/19 11:13 Levaquin 750 Mg Premixed Ivpb - IVPB 100 mls/hr DAILY ALEKSANDR Administration Protocol Sodium Chloride 1,000 mls @ 75 mls/hr 08/18/19 16:19 08/18/19 17:09 Normal Saline - IV 75 mls/hr ASDIR ALEKSANDR Administration Clindamycin Phosphate 600 mg in 50 mls @ 100 mls/hr 08/19/19 10:00 08/19/19 11:13 Cleocin 600 Mg Premix Ivpb - IVPB 100 mls/hr Q8H-IV ALEKSANDR Administration Protocol Levetiracetam 1,500 mg 08/17/19 22:00 08/19/19 11:15 Keppra Oral Solution - GT 1,500 mg BID ALEKSANDR Administration Non-Formulary Medication 20 mg 08/17/19 15:45 Baclofen [Baclofen] GT ASDIR ALEKSANDR Nystatin 1 applic 08/17/19 22:00 08/19/19 11:17 Mycostatin Cream - TP 1 applic BID ALEKSANDR Administration Potassium Chloride 40 meq 08/19/19 10:00 08/19/19 11:15 Potassium Chloride Oral Liquid PO 08/19/19 22:01 40 meq BID ALEKSANDR Administration Tamsulosin HCl 0.4 mg 08/18/19 08:30 08/19/19 11:16 Flomax - PO 0.4 mg DAILY@0830 ALEKSANDR Administration Home Medications Medication Instructions Recorded Carbamazepine [Tegretol -] 280 mg GT BID 03/17/18 Cholecalciferol (Vitamin D3) 2,000 unit GT DAILY 03/17/18 [Vitamin D3] Omeprazole Magnesium [Prilosec] 20 mg GT DAILY 03/17/18 clonazePAM [KlonoPIN -] 1 mg GT TID 03/17/18 Budesonide [Pulmicort 0.5 mg 1 neb NEB BID 07/12/18 Nebulizer -] Diazepam [Diastat Acudial] 20 mg RC PRN PRN 07/12/18 Ipratropium/Albuterol Sulfate 3 ml IH QID PRN 07/12/18 [Iprat-Albut 0.5-3(2.5) mg/3 ml] levETIRAcetam [Keppra Oral 1,500 mg GT BID cup 10/06/18 Solution -] Baclofen 20 mg GT ASDIR 03/08/19 Apixaban [Eliquis] 5 mg GT BID 05/14/19 Tamsulosin HCl [Flomax] 0.4 mg GT DAILY 05/21/19 Diazepam [Valium] 10 mg GT TID@0600,1700,2100 08/17/19 Omeprazole Magnesium [Prilosec] 20 mg PO DAILY 08/18/19 ASSESSMENT AND PLAN: 28 year old male [place] resident with Developmental Delay, Seizure Disorder, Functional Quadriplegia, Hx DVT, chronic/recurrent aspiration secondary to Dysphagia, Asthma, Scoliosis, s/p Jasmin fundoplication presented with fever and SOB. 1. Sepsis secondary to Acute Bronchitis, ?PNA ?microaspiration- still spiking temp on Levofloxacin. Will add Clindamycin. No evidence of consolidation on CXR Flu/RSV negative. Blood Cx negative. On Levofloxacin - ID to evaluate for other source of fevers. 2. Seizure Disorder - Continue Keppra, Carbamazepine. Diazepam PRN. 3. Hx of LE DVT - on Eliquis. 4. Asthma -no evidence of acute exacerbation - Continue Pulmicort, DuoNeb. 5. GERD - Continue Omeprazole. 6. Developmental Delay/Cerebral Palsy - on Clonazepam. 7. Hypokalemia - repleted DVT Px - on Eliquis.
[2019-08-19] MEDS: SODIUM CHLORIDE 1,000 ML IV SCH (17:07)
--- NOTE | 2019-08-19 19:13 | PN ---
Progress Note (short form) - Note Progress Note: ID CONSULT DICTATED PROBABLE RECURRENT ASPIRATION FEVER- IMPROVED CP/MR CONTINUE LEVAQUIN/CLINDAMYCIN
[2019-08-19] MEDS: ALBUTEROL SO4 2.5/IPRATROPIUM 0.5 INH SOL 3 ML VIAL.NEB. NEB PRN (21:34)
[2019-08-20] MEDS: CLINDAMYCIN 600MG PREMIX IVPB 600 MG/50 ML BAG IVPB SCH ×2 (02:26→09:26)
[2019-08-20] MEDS: clonazePAM 0.5 MG TABLET GT SCH ×3 (06:02→22:05)
[2019-08-20] MEDS: BUDESONIDE 0.5 MG/2 ML INH SUSP VIAL NEB SCH ×2 (07:36→20:40)
[2019-08-20 08:35] LABS: HEMATOCRIT 31.8 % (35.4-49); HEMOGLOBIN 10.6 GM/dL (11.7-16.9); MCH 28.1 pg (25.7-33.7); MCHC 33.5 g/dl (32.0-35.9); PLATELET COUNT 258 K/MM3 (134-434); RBC 3.78 M/mm3 (4.00-5.60); RDW 14.5 % (11.9-15.9); WHITE BLOOD COUNT 9.1 K/mm3 (4.0-10.0)
[2019-08-20 09:01] LABS: ALBUMIN 2.7 g/dl (3.4-5.0); BILIRUBIN,TOTAL 0.2 mg/dL (0.2-1); CREATININE 0.4 mg/dL (0.55-1.3); MAGNESIUM 1.9 mg/dL (1.8-2.4); POTASSIUM 3.2 mmol/L (3.5-5.1); TOT PROT 6.3 g/dl (6.4-8.2)
[2019-08-20] MEDS: TAMSULOSIN HCL 0.4 MG CAP PO SCH (09:26)
[2019-08-20] MEDS ORDERED: PT OWN MED DRAWER 7, Y5N ONE ×2 (10:14→20:33)
[2019-08-20] MEDS: CHOLECALCIFEROL (VIT D SOLUTION) 400 UNIT/1 ML DROPS GT SCH (10:18)
[2019-08-20] MEDS: levETIRAcetam 500 MG/5 ML ORAL SOLUTION (UNIT-DOSE CUPS) GT SCH ×2 (10:18→22:05)
[2019-08-20] MEDS: FAMOTIDINE 40 MG/5 ML ORAL SUSPENSION NGT SCH ×2 (10:18→22:06)
[2019-08-20] MEDS: NYSTATIN 100,000 UNIT/GM TOPICAL CREAM 15 GM TUBE TP SCH ×2 (10:19→22:06)
[2019-08-20] MEDS: carBAMazepine 200 MG/10 ML UNIT-DOSE CUP GT SCH ×2 (10:19→22:06)
[2019-08-20] MEDS: APIXABAN 5 MG TABLET PEG SCH ×2 (10:19→22:05)
--- NOTE | 2019-08-20 14:19 | PN ---
Progress Note, Physician History of Present Illness: AWAKE, NON VERBAL BREATHING NON-LABORED TEMPS DOWN AFEBRILE WBC WNL - Current Medication List Current Medications: Active Medications Albuterol/Ipratropium (Duoneb -) 1 amp NEB Q6H PRN PRN Reason: WHEEZING Last Admin: 08/19/19 21:34 Dose: 1 amp Apixaban (Eliquis -) 5 mg PEG BID [facility] Last Admin: 08/20/19 10:19 Dose: 5 mg Budesonide (Pulmicort 0.5 Mg Nebulizer -) 1 amp NEB RBID [facility] Last Admin: 08/20/19 07:36 Dose: 1 amp Carbamazepine (Tegretol Oral Suspension -) 280 mg GT BID [facility] Last Admin: 08/20/19 10:19 Dose: 280 mg Cholecalciferol (Vitamin D3 Oral Solution -) 2,000 unit GT DAILY [facility] Last Admin: 08/20/19 10:18 Dose: 2,000 units Clonazepam (Klonopin -) 1 mg GT TID [facility] Last Admin: 08/20/19 14:04 Dose: 1 mg Diazepam (Diastat Rectal Gel -) 20 mg RC DAILY PRN PRN Reason: Seizures occuring 5 min + Famotidine (Pepcid) 20 mg NGT BID [facility] Last Admin: 08/20/19 10:18 Dose: 20 mg Sodium Chloride (Normal Saline -) 1,000 mls @ 75 mls/hr IV ASDIR [facility] Last Admin: 08/19/19 17:07 Dose: 75 mls/hr Levetiracetam (Keppra Oral Solution -) 1,500 mg GT BID [facility] Last Admin: 08/20/19 10:18 Dose: 1,500 mg Levofloxacin (Levaquin -) 500 mg GT DAILY [facility] Non-Formulary Medication (Baclofen [Baclofen]) 20 mg GT ASDIR [facility] Nystatin (Mycostatin Cream -) 1 applic TP BID [facility] Last Admin: 08/20/19 10:19 Dose: 1 applic Tamsulosin HCl (Flomax -) 0.4 mg PO DAILY@0830 [facility] Last Admin: 08/20/19 09:26 Dose: 0.4 mg - Objective Vital Signs: Vital Signs Temperature 98.4 F 08/20/19 09:20 Pulse Rate 95 H 08/20/19 09:20 Respiratory Rate 20 08/20/19 09:20 Blood Pressure 120/70 08/20/19 09:20 O2 Sat by Pulse Oximetry (%) 98 08/19/19 21:00 Constitutional: Yes: No Distress Eyes: Yes: Conjunctiva Clear Cardiovascular: Yes: Regular Rate and Rhythm, S1, S2 Respiratory: Yes: Diminished Gastrointestinal: Yes: Normal Bowel Sounds, Soft. No: Tenderness Edema: No Labs: CBC, BMP 08/20/19 06:50 08/20/19 06:50 INR, PTT INR 1.43 (0.83-1.09) H 08/17/19 11:29 Assessment/Plan PROBABLE RECURRENT ASPIRATION FEVER/ LEUKOCYTOSIS CP/MR SUBSTITUTE LEVAQUIN VIA GT X 7D
[2019-08-20] MEDS ORDERED: POTASSIUM CHLORIDE ORAL LIQUID 20 MEQ/15 ML PO ONE (18:00)
--- NOTE | 2019-08-20 18:00 | PN ---
Physical Exam: SUBJECTIVE: Patient seen and examined, non verbal, unable to do ROS. OBJECTIVE: Vital Signs Period Temp Pulse Resp BP Sys/Don Pulse Ox Last 24 Hr 97.7 F-98.8 F 88-110 18-20 110-126/64-76 98-99 Intake & Output 08/17/19 08/18/19 08/19/19 08/20/19 23:59 23:59 23:59 23:59 Intake Total 300 1125 3457 1871 Output Total 1500 Balance 300 1125 3457 371 Weight 104 lb 12.8 oz 104 lb GENERAL: lying in bed, contracted, no acute distress neck: soft, supple Chest: Limited exam, pos air entry, occasional rales Abdomen:soft, NT, PEG in place Extremities: contractures Laboratory Results - last 24 hr 08/20/19 08/20/19 08/20/19 06:50 06:50 12:38 WBC 9.1 RBC 3.78 L Hgb 10.6 L Hct 31.8 L MCV 84.0 MCH 28.1 MCHC 33.5 RDW 14.5 Plt Count 258 MPV 8.0 Sodium 139 Potassium 3.2 L Chloride 106 Carbon Dioxide 24 Anion Gap 8 BUN 8.0 Creatinine 0.4 L Est GFR (CKD-EPI)AfAm 188.66 Est GFR (CKD-EPI)NonAf 162.78 POC Glucometer 89 Random Glucose 99 Calcium 8.0 L Magnesium 1.9 Total Bilirubin 0.2 AST 18 ALT 32 Alkaline Phosphatase 90 Total Protein 6.3 L Albumin 2.7 L Active Medications Generic Name Dose Route Start Last Admin Trade Name Freq PRN Reason Stop Dose Admin Albuterol/Ipratropium 1 amp 08/17/19 15:41 08/19/19 21:34 Duoneb - NEB 1 amp Q6H PRN Administration WHEEZING Apixaban 5 mg 08/17/19 22:00 08/20/19 10:19 Eliquis - PEG 5 mg BID ALEKSANDR Administration Budesonide 1 amp 08/17/19 20:00 08/20/19 07:36 Pulmicort 0.5 Mg Nebulizer - NEB 1 amp RBID ALEKSANDR Administration Carbamazepine 280 mg 08/17/19 22:00 08/20/19 10:19 Tegretol Oral Suspension - GT 280 mg BID ALEKSANDR Administration Cholecalciferol 2,000 unit 08/18/19 10:00 08/20/19 10:18 Vitamin D3 Oral Solution - GT 2,000 units DAILY ALEKSANDR Administration Clonazepam 1 mg 08/17/19 22:00 08/20/19 14:04 Klonopin - GT 1 mg TID ALEKSANDR Administration Famotidine 20 mg 08/17/19 22:00 08/20/19 10:18 Pepcid NGT 20 mg BID ALEKSANDR Administration Levetiracetam 1,500 mg 08/17/19 22:00 08/20/19 10:18 Keppra Oral Solution - GT 1,500 mg BID ALEKSANDR Administration Levofloxacin 500 mg 08/21/19 10:00 Levaquin - GT DAILY [facility] Non-Formulary Medication 20 mg 08/17/19 15:45 Baclofen [Baclofen] GT ASDIR [facility] Nystatin 1 applic 08/17/19 22:00 08/20/19 10:19 Mycostatin Cream - TP 1 applic BID ALEKSANDR Administration Tamsulosin HCl 0.4 mg 08/18/19 08:30 08/20/19 09:26 Flomax - PO 0.4 mg DAILY@0830 ALEKSANDR Administration ASSESSMENT/PLAN: 28 year old male [place] resident with Developmental Delay, Seizure Disorder, Functional Quadriplegia, Hx DVT, chronic/recurrent aspiration secondary to Dysphagia, Asthma, Scoliosis, s/p Jasmin fundoplication presented with fever and dyspnea -Acute bronchitis, suspected aspiration PNA -Sepsis -Seizure disorder -h/o LLE DVT -GERD -Asthma -GERD -Developmental Delay/Cerebral palsy -Hypokalemia Plan: No further fevers, ID input noted, levaquin changed to via G tube. Frequent suctioning, aspiration precautions. Tube feeds resumed, no concerns. Flu/RSV/blood cx neg. Continue keppra/carbamazepine/Clonazepam. Valium prn. Continue pulmicort/duoneb/omeprazole. DVTPPX on eliquis Dispo back to [facility] in 24 hours if no new events. Visit type - Emergency Visit Emergency Visit: Yes ED Registration Date: 08/17/19 Care time: The patient presented to the Emergency Department on the above date and was hospitalized for further evaluation of their emergent condition. - New Patient This patient is new to me today: Yes Date on this admission: 08/20/19 - Critical Care Critical Care patient: No - Discharge Referral Referred to [facility] Med P.C.: No
[2019-08-21] MEDS: clonazePAM 0.5 MG TABLET GT SCH (06:18)
[2019-08-21] MEDS: ALBUTEROL SO4 2.5/IPRATROPIUM 0.5 INH SOL 3 ML VIAL.NEB. NEB PRN (07:50)
[2019-08-21] MEDS: BUDESONIDE 0.5 MG/2 ML INH SUSP VIAL NEB SCH (07:50)
[2019-08-21] MEDS ORDERED: PT OWN MED DRAWER 7, Y5N ONE (11:37)
[2019-08-21] MEDS: TAMSULOSIN HCL 0.4 MG CAP PO SCH (11:46)
[2019-08-21] MEDS: APIXABAN 5 MG TABLET PEG SCH (11:46)
[2019-08-21] MEDS: levETIRAcetam 500 MG/5 ML ORAL SOLUTION (UNIT-DOSE CUPS) GT SCH (11:46)
[2019-08-21] MEDS: FAMOTIDINE 40 MG/5 ML ORAL SUSPENSION NGT SCH (11:47)
[2019-08-21] MEDS: carBAMazepine 200 MG/10 ML UNIT-DOSE CUP GT SCH (11:47)
[2019-08-21] MEDS: CHOLECALCIFEROL (VIT D SOLUTION) 400 UNIT/1 ML DROPS GT SCH (11:48)
[2019-08-21] MEDS: NYSTATIN 100,000 UNIT/GM TOPICAL CREAM 15 GM TUBE TP SCH (11:49)
--- NOTE | 2019-08-21 11:54 | PN ---
Teaching Attending Note Name of Resident: Zoë Churchill ATTENDING PHYSICIAN STATEMENT I saw and evaluated the patient. I reviewed the resident's note and discussed the case with the resident. I agree with the resident's findings and plan as documented with exceptions below. SUBJECTIVE: Patient seen and examined, non verbal, unable to do ROS. OBJECTIVE: Vital Signs Period Temp Pulse Resp BP Sys/Don Pulse Ox Last 24 Hr 98.1 F-99.2 F 90-105 18-20 111-126/64-73 97-99 Intake & Output 08/18/19 08/19/19 08/20/19 08/21/19 23:59 23:59 23:59 23:59 Intake Total 1125 3457 2321 500 Output Total 1900 400 Balance 1125 3457 421 100 Weight 104 lb General: lying in bed, breathing comfortably, no acute distress, more awake today Neck: soft Chest: good air entry, no current rales or wheezing appreciated Abdomen:Soft, PEG in place Extremities: contractures Home Medications Medication Instructions Recorded Cholecalciferol (Vitamin D3) 2,000 unit GT DAILY 03/17/18 [Vitamin D3] Omeprazole Magnesium [Prilosec] 20 mg GT DAILY 03/17/18 clonazePAM [KlonoPIN -] 1 mg GT TID 03/17/18 Budesonide [Pulmicort 0.5 mg 1 neb NEB BID 07/12/18 Nebulizer -] Diazepam [Diastat Acudial] 20 mg RC PRN PRN 07/12/18 Ipratropium/Albuterol Sulfate 3 ml IH QID PRN 07/12/18 [Iprat-Albut 0.5-3(2.5) mg/3 ml] levETIRAcetam [Keppra Oral 1,500 mg GT BID cup 10/06/18 Solution -] Baclofen 20 mg GT BID@1800,0000 03/08/19 Apixaban [Eliquis] 5 mg GT BID 05/14/19 Tamsulosin HCl [Flomax] 0.4 mg GT DAILY 05/21/19 Diazepam [Valium] 10 mg GT TID@0600,1700,2100 08/17/19 Baclofen 10 mg GT BID@0500,1200 08/19/19 Carbamazepine Oral Suspension 280 mg GT BID 08/19/19 [Tegretol Oral Suspension -] Active Medications Albuterol/Ipratropium (Duoneb -) 1 amp NEB Q6H PRN PRN Reason: WHEEZING Last Admin: 08/21/19 07:50 Dose: 1 amp Apixaban (Eliquis -) 5 mg PEG BID [facility] Last Admin: 08/21/19 11:46 Dose: 5 mg Budesonide (Pulmicort 0.5 Mg Nebulizer -) 1 amp NEB RBID [facility] Last Admin: 08/21/19 07:50 Dose: 1 amp Carbamazepine (Tegretol Oral Suspension -) 280 mg GT BID [facility] Last Admin: 08/21/19 11:47 Dose: 280 mg Cholecalciferol (Vitamin D3 Oral Solution -) 2,000 unit GT DAILY [facility] Last Admin: 08/21/19 11:48 Dose: 2,000 units Clonazepam (Klonopin -) 1 mg GT TID [facility] Last Admin: 08/21/19 06:18 Dose: 1 mg Famotidine (Pepcid) 20 mg NGT BID [facility] Last Admin: 08/21/19 11:47 Dose: 20 mg Levetiracetam (Keppra Oral Solution -) 1,500 mg GT BID [facility] Last Admin: 08/21/19 11:46 Dose: 1,500 mg Levofloxacin (Levaquin -) 500 mg GT DAILY [facility] Last Admin: 08/21/19 11:46 Dose: 500 mg Non-Formulary Medication (Baclofen [Baclofen]) 20 mg GT ASDIR [facility] Nystatin (Mycostatin Cream -) 1 applic TP BID [facility] Last Admin: 08/21/19 11:49 Dose: 1 applic Tamsulosin HCl (Flomax -) 0.4 mg PO DAILY@0830 [facility] Last Admin: 08/21/19 11:46 Dose: 0.4 mg Laboratory Results - last 24 hr 08/20/19 08/21/19 12:38 06:45 Potassium 3.7 POC Glucometer 89 Microbiology 08/17/19 11:29 Blood - Peripheral Venous Blood Culture - Preliminary NO GROWTH OBTAINED AFTER 96 HOURS, INCUBATION TO CONTINUE FOR 1 DAYS. 08/17/19 11:29 Blood - Peripheral Venous Blood Culture - Preliminary NO GROWTH OBTAINED AFTER 96 HOURS, INCUBATION TO CONTINUE FOR 1 DAYS. 08/17/19 16:41 Urine - Urine Clean Catch Legionella Antigen - Final 08/17/19 16:41 Urine - Urine Clean Catch Streptococcus pneumoniae Antigen ( M - Final 08/17/19 11:29 Urine - Urine Clean Catch Urine Culture - Final NO GROWTH OBTAINED ASSESSMENT AND PLAN: 28 year old male [place] resident with Developmental Delay, Seizure Disorder, Functional Quadriplegia, Hx DVT, chronic/recurrent aspiration secondary to Dysphagia, Asthma, Scoliosis, s/p Jasmin fundoplication presented with fever and dyspnea -Acute bronchitis, suspected aspiration PNA -Sepsis -Seizure disorder -h/o LLE DVT -GERD -Asthma -GERD -Developmental Delay/Cerebral palsy -Hypokalemia Plan: No further fevers, ID input noted, levaquin changed to via G tube for total 7 days. Frequent suctioning, aspiration precautions. Tube feeds resumed, no concerns. Flu/RSV/blood cx neg. Continue keppra/carbamazepine/Clonazepam. Valium prn. Continue pulmicort/duoneb/omeprazole. DVTPPX on eliquis Dispo back to [facility] today.
--- NOTE | 2019-08-21 12:37 | DS ---
Physical Exam: SUBJECTIVE: Patient seen and examined. No acute events overnight. Patient O2 saturation in the high 90s on room air. OBJECTIVE: Vital Signs Period Temp Pulse Resp BP Sys/Don Pulse Ox Last 24 Hr 98.1 F-99.2 F 90-105 18-20 111-126/64-73 97-99 PHYSICAL EXAM GENERAL: Awake, no acute distress HEAD: Normal with no signs of trauma. EYES: EOMI, no scleral icterus EARS, NOSE, THROAT: Moist mucous membranes NECK: trachea midline, supple LUNGS: clear to auscultation bilaterally. No wheezes, no crackles. No accessory muscle use. HEART: RRR, S1, S2 ABDOMEN: Soft, nontender, not distended. PEG tube in place with mild surrounding erythema MUSCULOSKELETAL: contracted upper and lower extremities EXTREMITIES: 2+ pulses, warm, well-perfused. no edema SKIN: Warm, dry, normal turgor, no rashes or lesions noted, no sacral ulcers noted LABS Laboratory Results - last 24 hr 08/20/19 08/21/19 12:38 06:45 Potassium 3.7 POC Glucometer 89 HOSPITAL COURSE: Date of Admission:08/17/19 Date of Discharge: 08/21/19 28 y/o/m with developmental disability, Microcephaly, Seizure disorder, Asthma, Quadriparesis, Chronic hyponatremia, Dysphagia s/p G-Tube, Chronic microaspirations who presented from [facility] due to fever and tachypnea. Patient continued to be tachycadic in ED, low grade fever of 100.3F. Admitted for sepsis. On admission CXR did not show evidence of pneumonia, repeat imaging did not show pneumonia either. Flu and RSV tests were negative. UA negative for UTI. Blood, urine cultures negative for growth. Patient was started on Levaquin for abx coverage with improvement. Patient had repeat fevers while admitted and was evaluated by ID, recommended to continue Levaquin. Patient's home medications were continued while admitted. Patient had hypokalemia while admitted which resolved after administration of multiple doses of potassium. Minutes to complete discharge: 36 Discharge Summary Problems reviewed: Yes Reason For Visit: PNEUMONIA Current Active Problems Pneumonia (Acute) Condition: Stable - Instructions Diet, Activity, Other Instructions: You presented to the hospital with increased heart rate, fever and increased breathing rate and were found to have acute bronchitis. You were treated with antibiotics with improvement in your condition. You had a chest x ray done which did not show any signs of pneumonia. Your home medications were continued while in the hospital. Medication Changes: 1. Continue Levaquin via PEG tube for 5 days. Follow up with the following physicians: 1. Please follow up with your primary care provider, Dr. Mayorga, upon return to [facility]. Continue all your other medications as prescribed Continue your tube feeds as prior Suctioning and aspiration precautions. Please return to the ER if you have any signs or symptoms of chest pain, shortness of breath, uncontrollable fever, chills, nausea, vomiting, numbness, tingling, or weakness in any part of your body, changes in vision, or slurred speech. Please return to the ER if symptoms persist, worsen, or new symptoms arise. Referrals: Bernardo Mayorga Jr [Primary Care Provider] - Disposition: [facility] - Home Medications Comprehensive Discharge Medication List: Ambulatory Orders Cholecalciferol (Vitamin D3) [Vitamin D3] 2,000 unit GT DAILY 03/17/18 Omeprazole Magnesium [Prilosec] 20 mg GT DAILY 03/17/18 clonazePAM [KlonoPIN -] 1 mg GT TID 03/17/18 Budesonide [Pulmicort 0.5 mg Nebulizer -] 1 neb NEB BID 07/12/18 Diazepam [Diastat Acudial] 20 mg RC PRN PRN 07/12/18 Ipratropium/Albuterol Sulfate [Iprat-Albut 0.5-3(2.5) mg/3 ml] 3 ml IH QID PRN 07/12/18 levETIRAcetam [Keppra Oral Solution -] 1,500 mg GT BID cup 10/06/18 Baclofen 20 mg GT BID@1800,0000 03/08/19 Apixaban [Eliquis] 5 mg GT BID 05/14/19 Tamsulosin HCl [Flomax] 0.4 mg GT DAILY 05/21/19 Diazepam [Valium] 10 mg GT TID@0600,1700,2100 08/17/19 Baclofen 10 mg GT BID@0500,1200 08/19/19 Carbamazepine Oral Suspension [Tegretol Oral Suspension -] 280 mg GT BID This patient is new to me today: Yes Date on this admission: 08/21/19 Emergency Visit: No Critical Care patient: No - Discharge Referral Referred to [facility] Med P.C.: No ATTENDING PHYSICIAN STATEMENT I saw and evaluated the patient. I reviewed the resident's note and discussed the case with the resident. I agree with the resident's findings and plan as documented. SUBJECTIVE: OBJECTIVE: ASSESSMENT AND PLAN:
[2019-08-21 14:24] VITALS: BP 133/90; PULSE 113; TEMP 97.6
[2019-08-21] MEDS ORDERED: BACLOFEN 10 MG TABLET (FP) GT SCH (22:00)
== END 2019-08-21 15:46 | disposition home or self-care (01) | DRG 720 ==
LOC: JER 10:34 → JERBED 14:34 → J8W 17:42
PROVIDERS: ATTEND Hospitalist
PROC: 3E0G76Z Introduction of Nutritional Substance into Upper GI, Via Natural or Artificial Opening (ICD-10-PCS; principal; 2019-08-17)
DX: A41.9 Sepsis, unspecified organism (principal); J69.0 Pneumonitis due to inhalation of food and vomit; R53.2 Functional quadriplegia; Q02 Microcephaly; R13.10 Dysphagia, unspecified; Z93.1 Gastrostomy status; M41.9 Scoliosis, unspecified; I25.2 Old myocardial infarction; J20.9 Acute bronchitis, unspecified; J45.909 Unspecified asthma, uncomplicated; G40.909 Epilepsy, unspecified, not intractable, without status epilepticus; K21.9 Gastro-esophageal reflux disease without esophagitis; R62.59 Other lack of expected normal physiological development in childhood; E87.6 Hypokalemia; G80.9 Cerebral palsy, unspecified; Z86.718 Personal history of other venous thrombosis and embolism
CPT/HCPCS: 36415; 71045-TC-FY; 80053; 81003; 82803; 82962; 83605; 83735; 84132; 84484; 85025; 85027; 85610; 85730; 87040; 87086; 87804; 87807; 87899; 93005; 93010; 94640; 97161-GP; 99283-25; J0131; J7030

== ENCOUNTER 2019-09-22 09:04 | Inpatient (IN) | payer OTHER ==
[2019-09-22] MEDS ORDERED: ACETAMINOPHEN INJECTION 100 ML IVPB ONE ×2 (09:12→16:27)
[2019-09-22] MEDS ORDERED: SODIUM CHLORIDE 0.9% 500 ML INFUS.BAG IV ONE ×2 (09:21→09:37)
[2019-09-22] MEDS ORDERED: ACETAMINOPHEN 1000 MG/100 ML VIAL (NON FORMULARY) IVPB ONE ×2 (09:21→16:28)
--- NOTE | 2019-09-22 09:37 | PDOC ---
History of Present Illness - General Chief Complaint: Respiratory Stated Complaint: R/O FLU Time Seen by Provider: 09/22/19 09:31 - History of Present Illness Initial Comments: The pt is a 29M w/ a history of CP with spastic quadriparesis, severe DD, microcephaly, mulitple PNAs, [place] x3, seizures, asthma, scoliosis, Jasmin fundoplication, dysphagia s/p G-tube placement who was BIBEMS from [place] for concerns of a respiratory infection. Staff report common influenza infection at facility. Per staff they endorse fevers and cough. 09/22/19 09:52 Past History - Past Medical History Allergies/Adverse Reactions: Allergies Allergy/AdvReac Type Severity Reaction Status Date / Time Beef Containing Products Allergy Unknown Verified 09/22/19 09:23 erythromycin base Allergy Verified 09/22/19 09:23 phenobarbital Allergy Verified 09/22/19 09:23 venom-honey bee Allergy Verified 09/22/19 09:23 [bee venom (honey bee)] Home Medications: Ambulatory Orders Cholecalciferol (Vitamin D3) [Vitamin D3] 2,000 unit GT DAILY 03/17/18 Omeprazole Magnesium [Prilosec] 20 mg GT DAILY 03/17/18 clonazePAM [KlonoPIN -] 1 mg GT TID 03/17/18 Budesonide [Pulmicort 0.5 mg Nebulizer -] 1 neb NEB BID 07/12/18 Diazepam [Diastat Acudial] 20 mg RC PRN PRN 07/12/18 Ipratropium/Albuterol Sulfate [Iprat-Albut 0.5-3(2.5) mg/3 ml] 3 ml IH QID PRN 07/12/18 levETIRAcetam [Keppra Oral Solution -] 1,500 mg GT BID cup 10/06/18 Baclofen 20 mg GT BID@1800,0000 03/08/19 Apixaban [Eliquis] 5 mg GT BID 05/14/19 Tamsulosin HCl [Flomax] 0.4 mg GT DAILY 05/21/19 Baclofen 10 mg GT BID@0500,1200 08/19/19 Carbamazepine Oral Suspension [Tegretol Oral Suspension -] 280 mg PO BID Anemia: No Asthma: Yes Cancer: No Cardiac Disorders: No CVA: No COPD: Yes (asthma, aspiration pnuemonia and respiratory distress) CHF: No Dementia: Yes (mental retardation) Diabetes: No GI Disorders: Yes (dysphagia, s/p peg insertion) Disorders: Yes (left testicular torsion, scrotal pain) HTN: No Hypercholesterolemia: No Liver Disease: No Psychiatric Problems: (hyponatremia (due to meds)) Seizures: Yes Thyroid Disease: No - Surgical History Abdominal Surgery: No Appendectomy: No Cardiac Surgery: No Cholecystectomy: No GI Surgery: Yes (G-tube) Lung Surgery: No Neurologic Surgery: Yes (scoliosis w/ mcelroy rods) Orthopedic Surgery: (Left Hip Osteotomy) - Immunization History Td Vaccination: Yes TDAP Vaccination: Yes Immunization Up to Date: Yes - Psycho Social/Smoking Cessation Hx Smoking History: Never smoked Have you smoked in the past 12 months: No Number of Cigarettes Smoked Daily: 0 Cigars Per Day: 0 Hx Alcohol Use: No Drug/Substance Use Hx: No Substance Use Type: None Hx Substance Use Treatment: No Review of Systems - Review of Systems Able to Perform ROS?: No (2/2 medical condition) *Physical Exam - Vital Signs Last Vital Signs Temp Pulse Resp BP Pulse Ox 102.3 F H 150 H 24 H 141/88 98 09/22/19 09:18 09/22/19 09:18 09/22/19 09:18 09/22/19 09:18 09/22/19 09:35 - Physical Exam GENERAL: Awake, non-verbal HEAD: No signs of trauma EYES: PERRLA, sclera anicteric, conjunctiva clear ENT: nares patent, Moist mucosa LUNGS: b/l crackles and decreased breath sounds at the bases HEART: Tachycardic rate with regular rhythm, normal S1 and S2, no murmurs appreciated ABDOMEN: Soft, g-tube in place w/o surrounding erythema; normoactive bowel sounds EXTREMITIES: BUE contractures; BLE contractures; no cellultis NEUROLOGICAL: Sensation to pinprick intact throughout SKIN: Warm, Dry 09/22/19 09:54 ED Treatment Course - LABORATORY CBC & Chemistry Diagram: 09/22/19 09:26 09/22/19 09:26 - RADIOLOGY Radiology Studies Ordered: Category Date Time Status CHEST X-RAY PORTABLE* [RAD] Stat Radiology 09/22/19 09:21 Ordered - Medications Given in the ED: ED Medications Discontinued Medications Generic Name Dose Route Start Last Admin Trade Name Freq PRN Reason Stop Dose Admin Acetaminophen 1,000 mg 09/22/19 09:21 09/22/19 09:33 Ofirmev Injection - IVPB 09/22/19 09:22 1,000 mg ONCE ONE Administration Sodium Chloride 1,000 ml 09/22/19 09:21 09/22/19 09:32 Normal Saline - IV 09/22/19 09:22 1,000 ml ONCE ONE Administration Medical Decision Making - Medical Decision Making The pt is a 29M w/ a history of CP with spastic quadriparesis, severe DD, microcephaly, mulitple PNAs, TN x3, seizures, asthma, scoliosis, Jasmin fundoplication, dysphagia s/p G-tube placement who was BIBEMS from [place] for concerns of a respiratory infection. ED Course Sepsis labs sent ECG CXR 1.4L NS (30cc/kg) Vanc/Zosyn for broad coverage 09/22/19 09:57 ECG w/ sinus tachycardia; HR 149; QTc 400; right axis deviation; abn ecg 09/22/19 11:37 No leukocytosis No anemia Hyponatremia noted, receiving NS No AL LA 2.6, receiving IVF LFTs wnl Trop I neg 09/22/19 11:43 Influenza positive, will give Tamiflu Pt signed out to Dr. Perry 09/22/19 11:45 Discharge - Discharge Information Problems reviewed: Yes Clinical Impression/Diagnosis: Influenza A, HCAP (healthcare-associated pneumonia), Functional quadriplegia Condition: Guarded - Admission Yes - Follow up/Referral Referrals: Bernardo Mayorga Jr [Primary Care Provider] - - Patient Discharge Instructions - Post Discharge Activity
[2019-09-22] MEDS ORDERED: PIPERACILLIN/TAZOB 4.5 GM 4.5 GM in DEXTROSE 5%-WATER 100 ML IVPB ONE (09:58)
[2019-09-22] MEDS ORDERED: VANCOMYCIN 1 GM in D5W (PRE-DOCKED) 1,000 MG/250 ML IVPB ONE (09:58)
[2019-09-22 09:59] LABS: VENOUS PC02 33.9 mmHg (38-52); VENOUS PH 7.47 (7.31-7.41)
[2019-09-22 10:01] LABS: VENOUS PO2 < 49 mmHg (28-48)
[2019-09-22 10:07] LABS: URINE APPEARANCE CLOUDY; URINE BILIRUBIN NEGATIVE (NEGATIVE); URINE COLOR YELLOW; URINE GLUCOSE (UA) NEGATIVE (NEGATIVE); URINE KETONE NEGATIVE (NEGATIVE); URINE LEUK ESTERASE NEGATIVE (NEGATIVE); URINE NITRITE NEGATIVE (NEGATIVE); URINE PROTEIN TRACE (NEGATIVE)
[2019-09-22 10:07] LABS: BASO % 0.4 % (0-2.0); EOS % 0.3 % (0-4.5); HEMATOCRIT 38.4 % (35.4-49); HEMOGLOBIN 12.9 GM/dL (11.7-16.9); LYMPH % 6.1 % (8-40); MCH 28.1 pg (25.7-33.7); MCHC 33.7 g/dl (32.0-35.9); MEAN CELL VOLUME 83.6 fl (80-96); MEAN PLT VOLUME 7.3 fl (7.5-11.1); MONO % 9.2 % (3.8-10.2); PLATELET COUNT 405 K/MM3 (134-434); RBC 4.59 M/mm3 (4.00-5.60); RDW 15.8 % (11.9-15.9); WHITE BLOOD COUNT 9.9 K/mm3 (4.0-10.0)
[2019-09-22 10:08] LABS: INR 1.74 (0.83-1.09); PROTHROMBIN TIME (PATIENT) 20.7 SEC (9.7-13.0)
[2019-09-22 10:11] LABS: ACTIVATED PTT 39.1 SECONDS (25.2-36.5)
--- NOTE | 2019-09-22 10:24 | PDOC ---
Documentation entered by Chrissie Rodriguez SCRIBE, acting as scribe for Greg Rodriguez MD. Greg Rodriguez MD: This documentation has been prepared by the Jennifer sharma Adrianna, SCRIBE, under my direction and personally reviewed by me in its entirety. I confirm that the documentation accurately reflects all work, treatment, procedures, and medical decision making performed by me. Attending Attestation - Resident Resident Name: Keegan Vyas - ED Attending Attestation I have performed the following: I have examined & evaluated the patient, The case was reviewed & discussed with the resident, I agree w/resident's findings & plan, Exceptions are as noted - HPI HPI: The patient is a 28 year old male, with a significant PMH of CP with spastic quadriparesis, microcephaly, mulitple PNAs with sepsis, [place] x3, seizures, asthma , scoliosis, Jasmin fundoplication, dysphagia (s/p G-tube placement), hyponatremia, and testicular torsion, who presents to the ED BIBEMS from [place] for evaluation of possible respiratory infection. Aid at bedside notes the patient has had a fever and cough at this time. Several sick contacts at [place] with flu. Allergies: Beef, erythromycin base, phenobarbital Surgical History: G-tube, scoliosis mcelroy rods, left hip osteotomy Social History: Non-communicative. [place] resident. PCP: Dr. Mayorga - Physicial Exam PE: 09/22/19 10:25 See resident exam - Critical Care Time Total Critical Care Time: 60 Critical Care Statement: The care of this patient involved high complexity decision making to prevent further life threatening deterioration of the patient 's condition and/or to evaluate & treat vital organ system(s) failure or risk of failure. - Medical Decision Making 09/22/19 10:28 29 M with fever, tachycardia. Will r/o sepsis. Suspect flu, but pt has had multiple admissions for sepsis and bacteremia. - Labs, cultures - CXR, UA - Flu swab - IVF, abx, tylenol
[2019-09-22 10:33] LABS: BILIRUBIN,TOTAL 0.2 mg/dL (0.2-1); BLOOD UREA NITROGEN 7.9 mg/dL (7-18); CALCIUM 8.4 mg/dL (8.5-10.1); CREATININE 0.5 mg/dL (0.55-1.3); TOT PROT 7.6 g/dl (6.4-8.2)
[2019-09-22] MEDS ORDERED: PIPERACILLIN/TAZOB 4.5 GM 4.5 GM/100 ML BAG IVPB ONE (10:35)
[2019-09-22] MEDS ORDERED: VANCOMYCIN 1 GRAM (PRE-DOCKED) 1,000 MG/250 ML BAG IVPB ONE (10:35)
[2019-09-22] MEDS ORDERED: OSELTAMIVIR PHOSPHATE 75 MG CAPSULE PO SCH (11:45)
[2019-09-22] MEDS ORDERED: OSELTAMIVIR PHOSPHATE 75 MG CAPSULE ONE (12:45)
[2019-09-22] MEDS ORDERED: SODIUM CHLORIDE 1,000 ML IV SCH (13:30)
--- NOTE | 2019-09-22 13:48 | EKG ---
Test Reason : Blood Pressure : / mmHG Vent. Rate : 149 BPM Atrial Rate : 149 BPM P-R Int : 124 ms QRS Dur : 082 ms QT Int : 254 ms P-R-T Axes : 048 144 015 degrees QTc Int : 400 ms POOR DATA QUALITY, INTERPRETATION MAY BE ADVERSELY AFFECTED SINUS TACHYCARDIA RIGHT AXIS DEVIATION POSSIBLE RIGHT VENTRICULAR HYPERTROPHY POSSIBLE INFERIOR INFARCT (CITED ON OR BEFORE 11-MAR-2019) ABNORMAL ECG WHEN COMPARED WITH ECG OF 17-AUG-2019 10:53, NONSPECIFIC T WAVE ABNORMALITY HAS REPLACED INVERTED T WAVES IN ANTERIOR LEADS Confirmed by SUNITA CHOUDHARY MD ([id number]) on 09/22/2019 1:48:01 PM Referred By: Confirmed By:SUNITA CHOUDHARY MD
[2019-09-22] MEDS ORDERED: diazePAM ACUDIAL 5-7.5-10 MG 1 EACH KIT RC PRN (13:52)
--- NOTE | 2019-09-22 13:56 | HP ---
CHIEF COMPLAINT: fever and cough PCP: Dr. Mayorga HISTORY OF PRESENT ILLNESS: Pt. is a 29 y.o. M w/ PMHx. of CP w/ spastic quadriparesis, microcephaly, recurrent PNAs, seizures, asthma, scoliosis, and dysphagia presents with fever and cough. Pt. non-verbal at baseline. Pt. comes from [place] where there has been a known outbreak of Flu. Pt. reportedly was on day 5 of therapeutic Tamiflu dosing. community aide at bedside stated she was not with Pt. today and did not know any information about the patient. Pt. has known history of MDR organisms in Sputum Cx. in April. Pt. received Flu vaccine. ER course was notable for: (1)NS x 1.4L, Ofirmev, BCx./UCx., CXR, EKG (2) (3) Recent Travel: No PAST MEDICAL HISTORY: As above PAST SURGICAL HISTORY: Jasmin Fundoplication, G-Tube placement, [place] Dm placements. Social History: Smoking: Denies Alcohol: Denies Drugs: Denies Allergies Beef Containing Products Allergy (Unknown, Verified 09/22/19 09:23) erythromycin base Allergy (Verified 09/22/19 09:23) phenobarbital Allergy (Verified 09/22/19 09:23) venom-honey bee [bee venom (honey bee)] Allergy (Verified 09/22/19 09:23) HOME MEDICATIONS: Home Medications Medication Instructions Recorded Cholecalciferol (Vitamin D3) 2,000 unit GT DAILY 03/17/18 [Vitamin D3] Omeprazole Magnesium [Prilosec] 20 mg GT DAILY 03/17/18 clonazePAM [KlonoPIN -] 1 mg GT TID 03/17/18 Budesonide [Pulmicort 0.5 mg 1 neb NEB BID 07/12/18 Nebulizer -] Diazepam [Diastat Acudial] 20 mg RC PRN PRN 07/12/18 Ipratropium/Albuterol Sulfate 3 ml IH QID PRN 07/12/18 [Iprat-Albut 0.5-3(2.5) mg/3 ml] levETIRAcetam [Keppra Oral 1,500 mg GT BID cup 10/06/18 Solution -] Baclofen 20 mg GT BID@1800,0000 03/08/19 Apixaban [Eliquis] 5 mg GT BID 05/14/19 Tamsulosin HCl [Flomax] 0.4 mg GT DAILY 05/21/19 Baclofen 10 mg GT BID@0500,1200 08/19/19 Carbamazepine Oral Suspension 280 mg PO BID 09/22/19 [Tegretol Oral Suspension -] REVIEW OF SYSTEMS Unable to obtain PHYSICAL EXAMINATION Vital Signs - 24 hr 09/22/19 09/22/19 09/22/19 09:18 09:35 09:37 Temperature 102.3 F H Pulse Rate 150 H Pulse Rate [ Apical] Respiratory 24 H Rate Blood Pressure 141/88 Blood Pressure [Right Calf] O2 Sat by Pulse 98 98 98 Oximetry (%) 09/22/19 09/22/19 09/22/19 10:28 11:36 12:22 Temperature 99.9 F H Pulse Rate Pulse Rate [ 140 H 135 H Apical] Respiratory 26 H 26 H Rate Blood Pressure Blood Pressure 137/83 116/70 [Right Calf] O2 Sat by Pulse 95 95 Oximetry (%) GENERAL: Awake, alert, and fully oriented, in no acute distress. HEAD: Normal with no signs of trauma. EYES: Pupils equal, round and reactive to light, sclera anicteric, conjunctiva clear. EARS, NOSE, THROAT: Moist mucous membranes w/ thick oral secretions LUNGS: Coarse breath sounds. Pt on supplemental oxygen. HEART: Tachycardic, regular rate and rhythm, normal S1 and S2 without murmur ABDOMEN: Soft, nontender, not distended, normoactive bowel sounds, no guarding, no rebound, no masses. MUSCULOSKELETAL: Contracted upper extremities UPPER EXTREMITIES: warm, well-perfused. No cyanosis. No clubbing. No peripheral edema. LOWER EXTREMITIES: 2+ dorsal pedal pulses, warm, well-perfused. No peripheral edema. SKIN: Warm, dry Laboratory Results - last 24 hr 09/22/19 09/22/19 09/22/19 09:20 09:20 09:26 WBC RBC Hgb Hct MCV MCH MCHC RDW Plt Count MPV Absolute Neuts (auto) Neutrophils % Lymphocytes % Monocytes % Eosinophils % Basophils % Nucleated RBC % PT with INR 20.70 H INR 1.74 H PTT (Actin FS) 39.1 H VBG pH POC VBG pCO2 POC VBG pO2 VBG HCO3 VBG O2 Sat (Rafa) VBG Base Excess Sodium Potassium Chloride Carbon Dioxide Anion Gap BUN Creatinine Est GFR (CKD-EPI)AfAm Est GFR (CKD-EPI)NonAf Random Glucose Lactic Acid Calcium Total Bilirubin AST ALT Alkaline Phosphatase Troponin I < 0.02 Total Protein Albumin Urine Color Urine Appearance Urine pH Ur Specific [place] Urine Protein Urine Glucose (UA) Urine Ketones Urine Blood Urine Nitrite Urine Bilirubin Urine Urobilinogen Ur Leukocyte Esterase Influenza A (Rapid) Positive A Influenza B (Rapid) Negative 09/22/19 09/22/19 09/22/19 09:26 09:26 09:26 WBC 9.9 RBC 4.59 Hgb 12.9 Hct 38.4 D MCV 83.6 MCH 28.1 MCHC 33.7 RDW 15.8 Plt Count 405 D MPV 7.3 L Absolute Neuts (auto) 8.3 H Neutrophils % 84.0 H Lymphocytes % 6.1 L D Monocytes % 9.2 Eosinophils % 0.3 Basophils % 0.4 Nucleated RBC % 0 PT with INR INR PTT (Actin FS) VBG pH POC VBG pCO2 POC VBG pO2 VBG HCO3 VBG O2 Sat (Rafa) VBG Base Excess Sodium 130 L Potassium 4.0 Chloride 96 L Carbon Dioxide 24 Anion Gap 10 BUN 7.9 Creatinine 0.5 L Est GFR (CKD-EPI)AfAm 170.92 Est GFR (CKD-EPI)NonAf 147.47 Random Glucose 96 Lactic Acid 2.6 H* Calcium 8.4 L Total Bilirubin 0.2 AST 24 ALT 44 Alkaline Phosphatase 122 H Troponin I Total Protein 7.6 Albumin 3.0 L Urine Color Urine Appearance Urine pH Ur Specific [place] Urine Protein Urine Glucose (UA) Urine Ketones Urine Blood Urine Nitrite Urine Bilirubin Urine Urobilinogen Ur Leukocyte Esterase Influenza A (Rapid) Influenza B (Rapid) 09/22/19 09/22/19 09:26 09:30 WBC RBC Hgb Hct MCV MCH MCHC RDW Plt Count MPV Absolute Neuts (auto) Neutrophils % Lymphocytes % Monocytes % Eosinophils % Basophils % Nucleated RBC % PT with INR INR PTT (Actin FS) VBG pH 7.47 H POC VBG pCO2 33.9 L POC VBG pO2 < 49 H VBG HCO3 24.6 VBG O2 Sat (Rafa) 80.5 H VBG Base Excess 1.5 Sodium Potassium Chloride Carbon Dioxide Anion Gap BUN Creatinine Est GFR (CKD-EPI)AfAm Est GFR (CKD-EPI)NonAf Random Glucose Lactic Acid Calcium Total Bilirubin AST ALT Alkaline Phosphatase Troponin I Total Protein Albumin Urine Color Yellow Urine Appearance Cloudy Urine pH 7.0 Ur Specific [place] 1.020 Urine Protein Trace Urine Glucose (UA) Negative Urine Ketones Negative Urine Blood Negative Urine Nitrite Negative Urine Bilirubin Negative Urine Urobilinogen 1.0 Ur Leukocyte Esterase Negative Influenza A (Rapid) Influenza B (Rapid) ASSESSMENT/PLAN: Pt. is a 29 y.o. M w/ PMHx. of CP w/ spastic quadriparesis, microcephaly, recurrent PNAs, seizures, asthma, scoliosis, and dysphagia presents with fever and cough. Pt. non-verbal at baseline. #Respiratory Distress Given Vanc and Zosyn in ED Flu A+ CXR: limited, no clear signs of infiltrates but marked scoliosis therefore cannot r/o PNA Pt. has history of MDR + SCx. will treat empirically with Clindamycin and Levaquin as Pt. was treated during the last admission. c/w Tamiflu BID #Hyponatremia Pt. 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 is known to be hyponatremic secondary to medication side effects however Pt. is more hyponatremic than in past. BNP: 35.3 #Seizure Disorder (Epilepsy) #Asthma c/w home medications #FEN LR @ 100 monitor electrolytes, replete as needed hold TF, will resume in AM #DVT Ppx. Lovenox 40mg SQ Visit type - Emergency Visit Emergency Visit: Yes ED Registration Date: 09/22/19 Care time: The patient presented to the Emergency Department on the above date and was hospitalized for further evaluation of their emergent condition. - New Patient This patient is new to me today: Yes Date on this admission: 09/24/19 - Critical Care Critical Care patient: No ATTENDING PHYSICIAN STATEMENT I saw and evaluated the patient. I reviewed the resident's note and discussed the case with the resident. I agree with the resident's findings and plan as documented. SUBJECTIVE: OBJECTIVE: ASSESSMENT AND PLAN:
[2019-09-22] MEDS: LACTATED RINGERS SOLUTION 1,000 ML/1,000 ML INFUS.BAG IV SCH (14:01)
[2019-09-22] MEDS ORDERED: ACETAMINOPHEN 650 MG/20.3 ML ORAL SOLUTION (CUPS) GT PRN (14:19)
[2019-09-22] MEDS ORDERED: clonazePAM 0.5 MG TABLET ONE (14:30)
[2019-09-22] MEDS: clonazePAM 2 MG TABLET GT SCH (14:39)
[2019-09-22] MEDS ORDERED: ALBUTEROL SO4 2.5/IPRATROPIUM 0.5 INH SOL 3 ML VIAL.NEB. NEB ONE (16:15)
[2019-09-22] MEDS: ALBUTEROL SO4 2.5/IPRATROPIUM 0.5 INH SOL 3 ML VIAL.NEB. NEB SCH ×2 (16:27→20:39)
[2019-09-22 17:19] LABS: N-TERMINAL BNP 35.3 pg/ml (5-125)
[2019-09-22] MEDS ORDERED: CLINDAMYCIN 600MG PREMIX IVPB 600 MG/50 ML BAG IVPB ONE (19:13)
[2019-09-22] MEDS: CLINDAMYCIN 600MG PREMIX IVPB 600 MG/50 ML BAG IVPB SCH (19:24)
[2019-09-22] MEDS ORDERED: BUDESONIDE 0.5 MG/2 ML INH SUSP VIAL NEB SCH (22:00)
[2019-09-23] MEDS: APIXABAN 5 MG TABLET PEG SCH ×3 (00:35→22:29)
[2019-09-23] MEDS: carBAMazepine 100 MG/5 ML UNIT-DOSE CUP PO SCH ×3 (00:35→22:29)
[2019-09-23] MEDS: clonazePAM 2 MG TABLET GT SCH ×4 (00:35→22:29)
[2019-09-23] MEDS: levETIRAcetam 500 MG/5 ML ORAL SOLUTION (UNIT-DOSE CUPS) GT SCH ×3 (00:36→22:32)
[2019-09-23] MEDS: OSELTAMIVIR PHOSPHATE 6 MG/1 ML GT SCH ×3 (00:36→22:29)
[2019-09-23] MEDS: FAMOTIDINE 40 MG/5 ML ORAL SUSPENSION PEG SCH ×3 (00:36→22:32)
[2019-09-23] MEDS: LACTATED RINGERS SOLUTION 1,000 ML/1,000 ML INFUS.BAG IV SCH ×2 (00:37→19:26)
[2019-09-23] MEDS: CLINDAMYCIN 600MG PREMIX IVPB 600 MG/50 ML BAG IVPB SCH ×2 (01:07→09:16)
[2019-09-23] MEDS: BACLOFEN 10 MG TABLET (FP) GT SCH ×3 (06:57→17:13)
[2019-09-23] MEDS: BUDESONIDE 0.5 MG/2 ML INH SUSP VIAL NEB SCH ×2 (08:15→21:20)
[2019-09-23] MEDS: ALBUTEROL SO4 2.5/IPRATROPIUM 0.5 INH SOL 3 ML VIAL.NEB. NEB SCH ×4 (08:15→21:15)
[2019-09-23] MEDS ORDERED: PT OWN MED DRAWER 7, Y5N ONE ×5 (08:37→17:09)
[2019-09-23 08:59] LABS: BASO % 0.4 % (0-2.0); HEMATOCRIT 32.2 % (35.4-49); HEMOGLOBIN 10.9 GM/dL (11.7-16.9); LYMPH % 16.7 % (8-40); MCH 27.9 pg (25.7-33.7); MCHC 33.8 g/dl (32.0-35.9); MEAN CELL VOLUME 82.5 fl (80-96); MEAN PLT VOLUME 6.8 fl (7.5-11.1); MONO % 13.4 % (3.8-10.2); NEUT % 69.5 % (42.8-82.8); PLATELET COUNT 321 K/MM3 (134-434); RDW 15.5 % (11.9-15.9); WHITE BLOOD COUNT 6.1 K/mm3 (4.0-10.0)
[2019-09-23] MEDS: TAMSULOSIN HCL 0.4 MG CAP PO SCH (09:16)
[2019-09-23 09:17] LABS: CREATININE 0.4 mg/dL (0.55-1.3); POTASSIUM 3.7 mmol/L (3.5-5.1)
[2019-09-23] MEDS ORDERED: ENOXAPARIN NA (PORCINE) 40 MG/0.4 ML DISP.SYRIN SQ SCH (10:00)
--- NOTE | 2019-09-23 10:24 | PN ---
Teaching Attending Note Name of Resident: Franklin Perry ATTENDING PHYSICIAN STATEMENT I saw and evaluated the patient. I reviewed the resident's note and discussed the case with the resident. I agree with the resident's findings and plan as documented. Seen and examined; please see resident note for further historical information. I personally verified all gaming historical information and exam findings. Personally interpreted all imaging and diagnostics and reviewed appropriate consults. I reviewed all labs and vital signs as per resident note and EMR as documented. I agree with the above assessment and plan unless supplemented by myself in the following. Discussed with resident and seen, patient is at neurologic baseline. Sepsis secondary to influenza plus or minus aspiration component of pneumonia. Broad- spectrum antibiotics, pulmonary and infectious disease consultation. Could not obtain review of systems secondary to baseline mental status. VS, labs, imaging reviewed NAD, tracks and responds to verbal stimuli, resting comfortably in bed on O2 RRR s1/2 no mgr Normal muscle tone, moves all 5 extremities with normal apparent strength Neck is supple, trachea midline, no minh LN Lungs with poor effort and scattered coarse rales, with sym expansion NT ND +BS no minh organomegaly CN2-12 wnl; no FND and at his neurological baseline NC AT EOMI PERRLA Normal mood, appropriate behavior, euthymic affect No skin breakdown or rashes noted Microbiology 09/22/19 16:55 Urine - Urine - Catheterized Legionella Antigen - Final 09/22/19 16:55 Urine - Urine - Catheterized Streptococcus pneumoniae Antigen (M - Final 09/22/19 09:26 Blood - Peripheral Venous Blood Culture - Preliminary NO GROWTH OBTAINED AFTER 24 HOURS, INCUBATION TO CONTINUE FOR 4 DAYS. 09/22/19 09:20 Blood - Peripheral Venous Blood Culture - Preliminary NO GROWTH OBTAINED AFTER 24 HOURS, INCUBATION TO CONTINUE FOR 4 DAYS. 09/22/19 09:26 Urine - Urine - Catheterized Urine Culture - Final NO GROWTH OBTAINED EKG shows sinus tachycardia with right axis deviation and possible right ventricular hypertrophy. QTc is 400. Chest x-ray shows dextroscoliosis of the thoracic spine with metal hardware wear in place with unchanged contour of the cardiomediastinal silhouette no airspace opacity seen in the visualized lungs with no pneumothorax or large pleural effusion. Radiology does comment that this is an exceptionally limited study due to motion artifact and patient fingers projecting over the lung bowie ASSESSMENT AND PLAN: Patient presents with sepsis secondary to influenza. Admitting to the medicine service, follow-up with infectious disease and pulmonary medicine. Broad- spectrum antibiotics, aspiration coverage, Tamiflu, monitor on the floor. Trending down lactate and continuing home medications for seizures. No seizure activity noted. Problems include: -Sepsis 2/2 influenza, r/o aspiration component -Influenza + -Sz history -Hx MR/CP -Hx MDROs, reviewed old cultures Full code
--- NOTE | 2019-09-23 10:24 | PN ---
Teaching Attending Note ATTENDING PHYSICIAN STATEMENT I saw and evaluated the patient. I reviewed the resident's note and discussed the case with the resident. I agree with the resident's findings and plan as documented. SUBJECTIVE: OBJECTIVE: ASSESSMENT AND PLAN:
[2019-09-23] MEDS: PIPERACILLIN/TAZOB 3.375 GM 3.375 GM in DEXTROSE 5%-WATER - 50 ML IVPB SCH ×2 (10:30→18:44)
[2019-09-23] MEDS ORDERED: PIPERACILLIN/TAZOB 3.375 GM 3.375 GM in DEXTROSE 5%-WATER - 50 ML IVPB SCH (10:45)
[2019-09-23 11:39] VITALS: BMI 21.4
--- NOTE | 2019-09-23 12:13 | PN ---
Physical Exam: SUBJECTIVE: Patient seen and examined; still tachy, sats improved. Pending ID and Pulm consults. No seizures, at mental status baseline. Couldn't obtain ROS secondary to underlying clinical condition OBJECTIVE: Vital Signs Period Temp Pulse Resp BP Sys/Don Pulse Ox Last 24 Hr 100 F-102.9 F 118-135 23-30 116-150/70-92 95-100 VS, labs, imaging reviewed NAD, tracks and responds to verbal stimuli, resting comfortably in bed on O2 RRR s1/2 no mgr Normal muscle tone, moves all 5 extremities with normal apparent strength Neck is supple, trachea midline, no minh LN Lungs with poor effort and scattered coarse rales, with sym expansion NT ND +BS no minh organomegaly CN2-12 wnl; no FND and at his neurological baseline NC AT EOMI PERRLA Normal mood, appropriate behavior, euthymic affect No skin breakdown or rashes noted Laboratory Results - last 24 hr 09/22/19 09/22/19 09/22/19 09:26 09:30 09:30 WBC RBC Hgb Hct MCV MCH MCHC RDW Plt Count MPV Absolute Neuts (auto) Neutrophils % Lymphocytes % Monocytes % Eosinophils % Basophils % Nucleated RBC % Sodium 130 L Potassium 4.0 Chloride 96 L Carbon Dioxide 24 Anion Gap 10 BUN 7.9 Creatinine 0.5 L Est GFR (CKD-EPI)AfAm 170.92 Est GFR (CKD-EPI)NonAf 147.47 Random Glucose 96 Serum Osmolality 275 L Lactic Acid Calcium 8.4 L Total Bilirubin 0.2 AST 24 ALT 44 Alkaline Phosphatase 122 H Creatine Kinase 159 Creatine Kinase Index 1.6 CK-MB (CK-2) 2.6 B-Natriuretic Peptide 35.3 Total Protein 7.6 Albumin 3.0 L Urine Osmolality 497 D Ur Random Sodium 15 L 09/22/19 09/22/19 09/23/19 13:00 21:15 08:42 WBC 6.1 RBC 3.90 L Hgb 10.9 L Hct 32.2 L D MCV 82.5 MCH 27.9 MCHC 33.8 RDW 15.5 Plt Count 321 D MPV 6.8 L Absolute Neuts (auto) 4.3 Neutrophils % 69.5 Lymphocytes % 16.7 D Monocytes % 13.4 H Eosinophils % 0.0 D Basophils % 0.4 Nucleated RBC % 0 Sodium Potassium Chloride Carbon Dioxide Anion Gap BUN Creatinine Est GFR (CKD-EPI)AfAm Est GFR (CKD-EPI)NonAf Random Glucose Serum Osmolality Lactic Acid 2.6 H* 1.2 Calcium Total Bilirubin AST ALT Alkaline Phosphatase Creatine Kinase Creatine Kinase Index CK-MB (CK-2) B-Natriuretic Peptide Total Protein Albumin Urine Osmolality Ur Random Sodium 09/23/19 08:42 WBC RBC Hgb Hct MCV MCH MCHC RDW Plt Count MPV Absolute Neuts (auto) Neutrophils % Lymphocytes % Monocytes % Eosinophils % Basophils % Nucleated RBC % Sodium 134 L Potassium 3.7 Chloride 102 Carbon Dioxide 24 Anion Gap 8 BUN 4.0 L Creatinine 0.4 L Est GFR (CKD-EPI)AfAm 187.34 Est GFR (CKD-EPI)NonAf 161.64 Random Glucose 83 Serum Osmolality Lactic Acid Calcium 8.0 L Total Bilirubin AST ALT Alkaline Phosphatase Creatine Kinase Creatine Kinase Index CK-MB (CK-2) B-Natriuretic Peptide Total Protein Albumin Urine Osmolality Ur Random Sodium Active Medications Generic Name Dose Route Start Last Admin Trade Name Freq PRN Reason Stop Dose Admin Acetaminophen 650 mg 09/22/19 14:19 Tylenol Oral Solution - GT Q6H PRN FEVER Albuterol/Ipratropium 1 amp 09/22/19 16:00 09/23/19 11:45 Duoneb - NEB 1 amp RQID ALEKSANDR Administration Apixaban 5 mg 09/22/19 22:00 09/23/19 09:17 Eliquis - PEG 5 mg BID ALEKSANDR Administration Baclofen 10 mg 09/23/19 05:00 09/23/19 06:57 Lioresal - GT 10 mg BID@0500,1200 ALEKSANDR Administration Baclofen 20 mg 09/23/19 18:00 Lioresal - GT BID@0000,1800 ALEKSANDR Budesonide 1 amp 09/23/19 08:00 09/23/19 08:15 Pulmicort 0.5 Mg Nebulizer - NEB Not Given RBID ALEKSANDR Carbamazepine 280 mg 09/22/19 22:00 09/23/19 09:16 Carbamazepine PO 280 mg BID ALEKSANDR Administration Clonazepam 1 mg 09/22/19 14:00 09/23/19 06:45 Klonopin - GT 1 mg TID ALEKSANDR Administration Diazepam 20 mg 09/22/19 13:52 Diastat Rectal Gel - RC 09/23/19 13:51 PRN PRN Seizures occuring 5 min + Famotidine 20 mg 01/24/20 22:00 09/23/19 09:21 Pepcid PEG 20 mg BID ALEKSANDR Administration Lactated Ringer's 1,000 ml in 1,000 mls @ 100 mls/hr 09/22/19 13:30 09/23/19 00:37 Lactated Ringers Solution IV 100 mls/hr ASDIR ALEKSANDR Administration Clindamycin Phosphate 600 mg in 50 mls @ 100 mls/hr 09/22/19 18:00 09/23/19 09:16 Cleocin 600 Mg Premix Ivpb - IVPB 100 mls/hr Q8H-IV ALEKSANDR Administration Protocol Levofloxacin 750 mg in 150 mls @ 150 mls/hr 09/22/19 16:15 09/23/19 09:16 Levaquin 750 Mg Premixed Ivpb - IVPB 150 mls/hr DAILY ALEKSANDR Administration Protocol Piperacillin Sod/Tazobactam 50 mls @ 100 mls/hr 09/23/19 10:30 Sod 3.375 gm/ Dextrose IVPB Q8H-IV ALEKSANDR Protocol Piperacillin Sod/Tazobactam 50 mls @ 100 mls/hr 09/23/19 10:45 Sod 3.375 gm/ Dextrose IVPB 09/24/19 10:44 Q8H-IV ALEKSANDR Protocol Levetiracetam 1,500 mg 09/22/19 22:00 09/23/19 09:21 Keppra Oral Solution - GT 1,500 mg BID ALEKSANDR Administration Oseltamivir Phosphate 75 mg 09/22/19 13:55 09/23/19 09:16 Tamiflu Oral Suspension - GT 09/27/19 11:44 75 mg BID ALEKSANDR Administration Tamsulosin HCl 0.4 mg 09/23/19 08:30 09/23/19 09:16 Flomax - PO 0.4 mg 0830 ALEKSANDR Administration Microbiology 09/22/19 16:55 Urine - Urine - Catheterized Legionella Antigen - Final 09/22/19 16:55 Urine - Urine - Catheterized Streptococcus pneumoniae Antigen (M - Final 09/22/19 09:26 Blood - Peripheral Venous Blood Culture - Preliminary NO GROWTH OBTAINED AFTER 24 HOURS, INCUBATION TO CONTINUE FOR 4 DAYS. 09/22/19 09:20 Blood - Peripheral Venous Blood Culture - Preliminary NO GROWTH OBTAINED AFTER 24 HOURS, INCUBATION TO CONTINUE FOR 4 DAYS. 09/22/19 09:26 Urine - Urine - Catheterized Urine Culture - Final NO GROWTH OBTAINED EKG shows sinus tachycardia with right axis deviation and possible right ventricular hypertrophy. QTc is 400. Chest x-ray shows dextroscoliosis of the thoracic spine with metal hardware wear in place with unchanged contour of the cardiomediastinal silhouette no airspace opacity seen in the visualized lungs with no pneumothorax or large pleural effusion. Radiology does comment that this is an exceptionally limited study due to motion artifact and patient fingers projecting over the lung bowie ASSESSMENT AND PLAN: Patient presents with sepsis secondary to influenza. Zosyn, tamiflu, defer to pulm for steroids. continue home antiepileptics. Isotonic hydration. Monitor HR and WBC. FU micro; negative legionella, pnc ag's. Cultures remain pending. Problems include: -Sepsis 2/2 influenza, r/o aspiration component -Influenza + -Sz history -Hx MR/CP -Hx MDROs, reviewed old cultures Full code Visit type - Emergency Visit Emergency Visit: Yes ED Registration Date: 09/22/19 Care time: The patient presented to the Emergency Department on the above date and was hospitalized for further evaluation of their emergent condition. - New Patient This patient is new to me today: No - Critical Care Critical Care patient: No
--- NOTE | 2019-09-23 14:03 | PN ---
Progress Note (short form) - Note Progress Note: ID consult dictated imp/reccd influenza A cannot r/o pneumonia- history of sputum CRE no clear inflitrate on cxray profound developmental delays functional quadraplegia plan iv access chest ct no contrast r/o pneumonia tamiflu nares for mrsa based on prior cultures levaquin/zosyn/vancomycin STRICT CONTACT ISOLATION -Dedicated equipment DROPLET isolation for influenza d/w hosptialist Problem List - Problems (1) Influenza A Code(s): J10.1 - FLU DUE TO OTH IDENT INFLUENZA VIRUS W OTH RESP MANIFEST (2) Pneumonia Code(s): J18.9 - PNEUMONIA, UNSPECIFIED ORGANISM (3) MDRO (multiple drug resistant organisms) resistance Code(s): Z16.35 - RESISTANCE TO MULTIPLE ANTIMICROBIAL DRUGS (4) Profound developmental delay Code(s): R62.50 - UNSP LACK OF EXPECTED NORMAL PHYSIOL DEV IN CHILDHOOD (5) Functional quadriplegia Code(s): R53.2 - FUNCTIONAL QUADRIPLEGIA
[2019-09-23] MEDS ORDERED: TRIPLE LUMEN FLUSH 4 ML ML IVPUSH PRN ×2 (14:09→15:07)
[2019-09-23] MEDS ORDERED: MIDAZOLAM HCL 2 MG/2 ML SINGLE DOSE VIAL IM ONE ×2 (14:18→18:49)
--- NOTE | 2019-09-23 15:18 | CONSULT ---
Consult - text type - Consultation Consultation Note: Pulm/CCM Request: hospitalist CC; resp distress, no access, fever HPI: Briefly Mr Marco is a 29 y.o. M w/ PMHx. of CP w/ spastic quadriparesis, microcephaly, recurrent PNAs, seizures, asthma, scoliosis, and dysphagia presents with fever and cough. Pt. non-verbal at baseline. Pt. comes from [facility] where there has been a recent Flu outbreak. Pt. reportedly was on day 5 of therapeutic Tamiflu dosing. Admitted for hypoxia and fever despite tamiflu/supportive care. Pulm/CCM request for access as pt has none and is still febrile with worsening resp distress. ID following, likely expanding abx coverage. Past Medical History TEAM GUIDE Seizure,Other Pulmonary Asthma Past Surgical History Past Surgical History Smoking History Smoking history Never smoked Aproximately how many 0 cigarettes per day Alcohol/Substance Use Hx Alcohol Use No History of Substance Use None Social History Usual Living Arrangement Long-Term ADL Support Services History of Recent Travel No Vital Signs Temp 100.1 F H 09/23/19 06:32 Pulse 118 H 09/23/19 06:32 Resp 30 H 09/23/19 06:32 BP 150/76 09/23/19 06:32 Pulse Ox 97 09/23/19 09:00 Intake & Output 09/22/19 09/23/19 09/23/19 23:59 11:59 23:59 Intake Total 100 1150 Balance 100 1150 Weight 48.398 kg 48.081 kg Intake: IV 100 900 LR 100 900 IVPB 50 Tube Irrigant 200 Other: Voiding Method Diaper Diaper # Unmeasured Voids Void 2 2 2 Height 4 ft 11 in 4 ft 11 in Body Mass Index (BMI) 21.5 21.4 Weight Measurement Method Built in [facility] Medications Medication Instructions Recorded Cholecalciferol (Vitamin D3) 2,000 unit GT DAILY 03/17/18 [Vitamin D3] Omeprazole Magnesium [Prilosec] 20 mg GT DAILY 03/17/18 clonazePAM [KlonoPIN -] 1 mg GT TID 03/17/18 Budesonide [Pulmicort 0.5 mg 1 neb NEB BID 07/12/18 Nebulizer -] Diazepam [Diastat Acudial] 20 mg RC PRN PRN 07/12/18 Ipratropium/Albuterol Sulfate 3 ml IH QID PRN 07/12/18 [Iprat-Albut 0.5-3(2.5) mg/3 ml] levETIRAcetam [Keppra Oral 1,500 mg GT BID cup 10/06/18 Solution -] Baclofen 20 mg GT BID@1800,0000 03/08/19 Apixaban [Eliquis] 5 mg GT BID 05/14/19 Tamsulosin HCl [Flomax] 0.4 mg GT DAILY 05/21/19 Baclofen 10 mg GT BID@0500,1200 08/19/19 Carbamazepine Oral Suspension 280 mg PO BID 09/22/19 [Tegretol Oral Suspension -] Active Medications Acetaminophen (Tylenol Oral Solution -) 650 mg GT Q6H PRN PRN Reason: FEVER Albuterol/Ipratropium (Duoneb -) 1 amp NEB RQID [facility] Last Admin: 09/23/19 11:45 Dose: 1 amp Apixaban (Eliquis -) 5 mg PEG BID [facility] Last Admin: 09/23/19 09:17 Dose: 5 mg Baclofen (Lioresal -) 10 mg GT BID@0500,1200 [facility] Last Admin: 09/23/19 12:30 Dose: 10 mg Baclofen (Lioresal -) 20 mg GT BID@0000,1800 [facility] Budesonide (Pulmicort 0.5 Mg Nebulizer -) 1 amp NEB RBID [facility] Last Admin: 09/23/19 08:15 Dose: Not Given Carbamazepine (Carbamazepine) 280 mg PO BID [facility] Last Admin: 09/23/19 09:16 Dose: 280 mg Clonazepam (Klonopin -) 1 mg GT TID [facility] Last Admin: 09/23/19 14:59 Dose: 1 mg Diazepam (Diastat Rectal Gel -) 20 mg RC PRN PRN PRN Reason: Seizures occuring 5 min + Stop: 09/23/19 13:51 Famotidine (Pepcid) 20 mg PEG BID [facility] Last Admin: 09/23/19 09:21 Dose: 20 mg IV Flush (Triple Lumen Flush) 4 ml IVPUSH PRN PRN PRN Reason: Protocol IV Flush (Triple Lumen Flush) 4 ml IVPUSH PRN PRN PRN Reason: Protocol Lactated Ringer's (Lactated Ringers Solution) 1,000 ml in 1,000 mls @ 100 mls/ hr IV ASDIR ALEKSANDR Last Admin: 09/23/19 00:37 Dose: 100 mls/hr Piperacillin Sod/Tazobactam (Sod 3.375 gm/ Dextrose) 50 mls @ 100 mls/hr IVPB Q8H-IV ALEKSANDR; Protocol Last Admin: 09/23/19 10:30 Dose: Not Given Vancomycin HCl 750 mg/ (Dextrose) 250 mls @ 250 mls/hr IVPB Q12H ALEKSANDR; Protocol Levofloxacin (Levaquin 500 Mg Premixed Ivpb -) 500 mg in 100 mls @ 100 mls/hr IVPB DAILY ALEKSANDR; Protocol Levetiracetam (Keppra Oral Solution -) 1,500 mg GT BID [facility] Last Admin: 09/23/19 09:21 Dose: 1,500 mg Oseltamivir Phosphate (Tamiflu Oral Suspension -) 75 mg GT BID [facility] Stop: 09/27/19 11:44 Last Admin: 09/23/19 09:16 Dose: 75 mg Tamsulosin HCl (Flomax -) 0.4 mg PO 0830 [facility] Last Admin: 09/23/19 09:16 Dose: 0.4 mg PE: Gen:non verbal, contracted, mild resp distress HEENT: microceph, EOMI, reactive PULM:scattered rhonchi CV: tachy, unable to appreciate m/r/g ABD:PEG CDI, +BS EXT: contracted, trace edema NEURO: withdrawals bilaterally CXR reviewed post line, TLC in adequate position, chronically elevated R stephanie diaphram, scattered opacities mild A/ 29 y/o [place] resident well known to our service, recent flu now with recurrent fever and resp insufficiency P/ -Fio2 as needed for Spo2 > 92 -NT suction as needed -ABX as per ID -cont tamiflu for now, may be reasonable to d/c -duonebs and pulmicort -high threshold for intubation -TLC placed for access Cate ACNP [id number]
--- NOTE | 2019-09-23 15:20 | PROC ---
Central Line Insertion Indication: Poor Venous Access Risks and Benefits Explained: No Consent on Chart: No (no access,hypoxic, emergent) Central Line: Triple Lumen Catheter Anesthesia: 1% Lidocaine Sterile Technique: Yes Ultrasound Guided Assistance: No Position: Right Subclavian Post Insertion: Yes: Bilateral Breath Sounds, Chest X-Ray Ordered Sterile Dressing Applied: Yes
[2019-09-23] MEDS: VANCOMYCIN 750 MG in DEXTROSE 5%-WATER - 250 ML IVPB SCH (15:30)
--- NOTE | 2019-09-23 15:32 | CONS ---
INFECTIOUS DISEASE CONSULTATION DATE OF CONSULTATION: DATE OF DICTATION: 09/23/2019 REQUESTED BY: Hospitalist service. HISTORY OF PRESENT ILLNESS: This is a 29-year-old man with severe developmental disabilities, who resides at the [facility], who was sent to the emergency room on the , with complaints of fever and cough. He was noted to be tachycardic in the ER with a pulse of 150 and a temperature of 102.3. His roommate was known to have influenza at the halfway and he was on Tamiflu and Augmentin there. He was admitted for further evaluation. Since admission, he has received a variety of antibiotics, including clindamycin , Levaquin, and he was started on Zosyn this morning. He is noted to be tachycardic and have a low-grade fever this morning of 100.1. He is otherwise nonverbal and unable to give any history. He recently had an admission in July for probable aspiration pneumonia and was treated on that admission with Levaquin and clindamycin. He does have a sputum culture, which was notable for pseudomonas, klebsiella, enterobacter, and citrobacter, of which the klebsiella, enterobacter, and citrobacter were all resistant to carbapenems and were sensitive to levofloxacin. He had a pseudomonas at that time that was levofloxacin- resistant and sensitive to all other anti-pseudomonal antibiotics. He currently has no IV access. PAST MEDICAL HISTORY: Notable for a history of cerebral palsy with spastic quadriparesis, microcephalus, recurrent pneumonia, seizures, asthma, scoliosis, and dysphagia. He did receive his influenza vaccine, this year. SURGICAL HISTORY: Notable for Jasmin fundoplication, G-tube placement, and Kong rods. SOCIAL HISTORY: As per HPI. He resides at the [facility] and he has long-standing cerebral palsy with microcephaly. ALLERGIES: He is allergic to BEEF-CONTAINING PRODUCTS, ERYTHROMYCIN, PHENOBARBITAL, and BEE VENOM. MEDICATIONS: At the halfway include vitamin D, Prilosec, Klonopin, Pulmicort, nebulizer, Keppra, Baclofen, Eliquis, tamsulosin, Tegretol, recent Augmentin, and Tamiflu which was started several days ago. PHYSICAL EXAMINATION: Vital Signs: He is resting comfortably, in no distress, but he is tachycardic with a heart rate of 118. His temp is 100.1, blood pressure is 150/76, respiratory rate is 23. He weighs 48 kg. He is saturating 97% on 2 L. HEENT: He has microcephaly. Lungs: Diminished breath sounds at the bases. He will not cooperate with the exam. Heart: Regular rate and rhythm, tachycardic. Abdomen: Soft. There is no distention. Extremities: Notable for bilateral clubfeet. LABORATORY DATA: White count is 6.1, on admission it was 9.9, hemoglobin 10.9, platelets are 321. BUN and creatinine are 4 and 0.4. Lactic acid was 2.6 on admission, is now 1.2. Liver function tests are notable for an alkaline phosphatase of 122. His influenza A antigen screen is positive. IMAGING: His chest x-ray is grossly normal on the portable film. In summary, this is a 29-year-old man with severe developmental disabilities, functional quadraplegia admitted with fever ongoing in the setting of influenza treatment. He has a history of multidrug-resistant organisms, as well as pseudomonas. Would plan to obtain IV access. Obtain a chest CT, no contrast, to rule out pneumonia. Would continue Tamiflu. Would obtain a nares swab to screen for MRSA, and based on his prior cultures, would treat him with Levaquin, Zosyn, and vancomycin at this time. Will need to maintain strict contact isolation for CRE history and single room while the patient is in the hospital. He needs droplet isolation, as well, for influenza. Case was discussed at length with the hospitalist. FLORINA FLETCHER M.D. [id number] MTDD
[2019-09-23] MEDS ORDERED: PIPERACILLIN/TAZOBACTAM 3.375 GM VIAL IVPB ONE (17:08)
[2019-09-23] MEDS ORDERED: DEXTROSE 5%-WATER - 100 ML IVPB ONE (17:08)
[2019-09-24] MEDS ORDERED: PIPERACILLIN/TAZOBACTAM 3.375 GM VIAL IVPB ONE ×3 (01:24→18:18)
[2019-09-24] MEDS ORDERED: DEXTROSE 5%-WATER - 50 ML IVPB ONE ×3 (01:24→18:18)
[2019-09-24] MEDS ORDERED: PT OWN MED DRAWER 7, Y5N ONE ×6 (01:24→22:10)
[2019-09-24] MEDS: BACLOFEN 10 MG TABLET (FP) GT SCH ×5 (02:35→23:57)
[2019-09-24] MEDS: PIPERACILLIN/TAZOB 3.375 GM 3.375 GM in DEXTROSE 5%-WATER - 50 ML IVPB SCH ×3 (02:37→18:31)
[2019-09-24] MEDS: VANCOMYCIN 750 MG in DEXTROSE 5%-WATER - 250 ML IVPB SCH ×2 (02:38→15:00)
[2019-09-24] MEDS: clonazePAM 2 MG TABLET GT SCH ×3 (05:14→21:43)
[2019-09-24] MEDS: LACTATED RINGERS SOLUTION 1,000 ML/1,000 ML INFUS.BAG IV SCH ×3 (05:15→16:00)
[2019-09-24] MEDS: BUDESONIDE 0.5 MG/2 ML INH SUSP VIAL NEB SCH ×2 (08:00→21:15)
[2019-09-24] MEDS: ALBUTEROL SO4 2.5/IPRATROPIUM 0.5 INH SOL 3 ML VIAL.NEB. NEB SCH ×4 (08:00→21:05)
[2019-09-24 08:35] LABS: HEMOGLOBIN 10.9 GM/dL (11.7-16.9); MCH 27.9 pg (25.7-33.7); MCHC 34.1 g/dl (32.0-35.9); MEAN CELL VOLUME 81.8 fl (80-96); MEAN PLT VOLUME 6.7 fl (7.5-11.1); PLATELET COUNT 335 K/MM3 (134-434); RBC 3.91 M/mm3 (4.00-5.60); RDW 15.5 % (11.9-15.9); WHITE BLOOD COUNT 9.5 K/mm3 (4.0-10.0)
[2019-09-24] MEDS: TAMSULOSIN HCL 0.4 MG CAP PO SCH (08:36)
[2019-09-24 09:21] LABS: ALBUMIN 2.6 g/dl (3.4-5.0); BILIRUBIN,TOTAL 0.3 mg/dL (0.2-1); BLOOD UREA NITROGEN 3.4 mg/dL (7-18); CALCIUM 8.3 mg/dL (8.5-10.1); CREATININE 0.3 mg/dL (0.55-1.3); TOT PROT 6.6 g/dl (6.4-8.2)
[2019-09-24] MEDS: APIXABAN 5 MG TABLET PEG SCH ×2 (09:48→21:43)
[2019-09-24] MEDS: OSELTAMIVIR PHOSPHATE 75 MG CAPSULE GT SCH ×2 (09:49→21:42)
[2019-09-24] MEDS: carBAMazepine 100 MG/5 ML UNIT-DOSE CUP PO SCH ×2 (09:50→21:44)
[2019-09-24 09:52] LABS: POTASSIUM 2.9 mmol/L (3.5-5.1)
--- NOTE | 2019-09-24 10:14 | PN ---
Progress Note (short form) - Note Progress Note: awaiting ct scan reading central line placed looks comfortable, still with low grade temps Vital Signs Period Temp Pulse Resp BP Sys/Don Pulse Ox Last 24 Hr 99.5 F-100.8 F 118-129 20-28 128-163/71-88 94-97 cor-rrr lungs decreased bs at bases abd soft,nt ext no edema CBC, BMP 09/24/19 08:20 09/24/19 08:20 Microbiology 09/22/19 09:26 Blood - Peripheral Venous Blood Culture - Preliminary NO GROWTH OBTAINED AFTER 48 HOURS, INCUBATION TO CONTINUE FOR 3 DAYS. 09/22/19 09:20 Blood - Peripheral Venous Blood Culture - Preliminary NO GROWTH OBTAINED AFTER 48 HOURS, INCUBATION TO CONTINUE FOR 3 DAYS. 09/22/19 16:55 Urine - Urine - Catheterized Legionella Antigen - Final 09/22/19 16:55 Urine - Urine - Catheterized Streptococcus pneumoniae Antigen (M - Final 09/22/19 09:26 Urine - Urine - Catheterized Urine Culture - Final NO GROWTH OBTAINED nares swab pending plan influenza A r/o pneumonia history of CRE severe developmental delays- CP/MR chest ct no contrast r/o pneumonia- pending reading tamiflu levaquin/zosyn/vancomycin STRICT CONTACT ISOLATION -Dedicated equipment DROPLET isolation for influenza d/w hosptalist
[2019-09-24] MEDS ORDERED: LACTATED RINGERS SOLUTION 1000 ML INFUS.BAG IV ONE (10:15)
--- NOTE | 2019-09-24 10:52 | PN ---
Teaching Attending Note Name of Resident: Wilbert Vicente ATTENDING PHYSICIAN STATEMENT I saw and evaluated the patient. I reviewed the resident's note and discussed the case with the resident. I agree with the resident's findings and plan as documented. Seen and examined; please see resident note for further historical information. I personally verified all gaming historical information and exam findings. Personally interpreted all imaging and diagnostics and reviewed appropriate consults. I reviewed all labs and vital signs as per resident note and EMR as documented. I agree with the above assessment and plan unless supplemented by myself in the following. 10 item review of systems completed and is negative aside from as discussed in the subjective data in my own/the resident documentation. VS, labs, imaging reviewed NAD, AAO, resting comfortably in bed. RRR s1/2 no mgr Normal muscle tone, moves all 5 extremities with normal apparent strength Neck is supple, trachea midline, no minh LN Lungs CTAB with sym expansion NT ND +BS no minh organomegaly CN2-12 wnl; no FND NC AT EOMI PERRLA Normal mood, appropriate behavior, euthymic affect No skin breakdown or rashes noted Microbiology 09/22/19 09:26 Blood - Peripheral Venous Blood Culture - Preliminary NO GROWTH OBTAINED AFTER 48 HOURS, INCUBATION TO CONTINUE FOR 3 DAYS. 09/22/19 09:20 Blood - Peripheral Venous Blood Culture - Preliminary NO GROWTH OBTAINED AFTER 48 HOURS, INCUBATION TO CONTINUE FOR 3 DAYS. 09/22/19 16:55 Urine - Urine - Catheterized Legionella Antigen - Final 09/22/19 16:55 Urine - Urine - Catheterized Streptococcus pneumoniae Antigen (M - Final 09/22/19 09:26 Urine - Urine - Catheterized Urine Culture - Final NO GROWTH OBTAINED CT chest was read inacurately, I am informed, and we are pending re-read. EKG shows sinus tachycardia with right axis deviation and possible right ventricular hypertrophy. QTc is 400. Chest x-ray shows dextroscoliosis of the thoracic spine with metal hardware wear in place with unchanged contour of the cardiomediastinal silhouette no airspace opacity seen in the visualized lungs with no pneumothorax or large pleural effusion. Radiology does comment that this is an exceptionally limited study due to motion artifact and patient fingers projecting over the lung bowie ASSESSMENT AND PLAN: Patient presents with sepsis secondary to influenza. Zosyn, tamiflu, defer to pulm for steroids. continue home antiepileptics. Isotonic hydration. Monitor HR and WBC. FU micro; negative legionella, pnc ag's. Cultures remain pending. Problems include: -Sepsis, improved once he got fluids yesterday. -Pneumonia (viral [flu +] with potential aspiration component; continue current abx, ID following, clinically improved but still requiring O2 -Seizure history (Continue home meds, precautions) -Hx MR/CP (at baseline) -Hx dysphagia (secondary to developmental issues; at baseline with dietary recs appreciated) -Dextroscoliosis -Anemia, likely dilutional, continue to trend. No bleeding. -Coagulopathy, likely secondary to sepsis and global process, repeat in the morning -Lactic acidosis, resolved, -Hypokalemia, repleted, recheck p.m. value -Elevated alkaline phosphatase, has been elevated in the past, slightly worse than yesterday, can repeat in the morning and obtain GGT if persists. Full code
[2019-09-24] MEDS: KCL 10 MEQ IVPB 10 MEQ/100 ML INFUS.BAG IVPB SCH ×3 (10:54→13:30)
[2019-09-24] MEDS: FAMOTIDINE 40 MG/5 ML ORAL SUSPENSION PEG SCH ×2 (12:30→21:47)
[2019-09-24] MEDS: levETIRAcetam 500 MG/5 ML ORAL SOLUTION (UNIT-DOSE CUPS) GT SCH ×2 (12:42→21:46)
--- NOTE | 2019-09-24 15:34 | PN ---
Physical Exam: SUBJECTIVE: Patient seen and examined OBJECTIVE: Vital Signs Period Temp Pulse Resp BP Sys/Don Pulse Ox Last 24 Hr 99.5 F-100.8 F 118-129 20-28 128-163/71-88 94-100 GENERAL: non-verbal, contracted, mild resp distress, monitoring in ICU EYES: Microceph, PERRL, extraocular movements intact. No ptosis. ENT: moist mucous membranes. NECK: Trachea midline, full range of motion, supple. LUNGS: scattered rhonchi b/l HEART: Tachycardic, normal S1, S2 without murmur, rub or gallop. ABDOMEN: PEG CDI, +BS, NT, nondistended, normoactive bowel sounds, no guarding, no rebound, no hepatosplenomegaly, no masses. EXTREMITIES: contracted, trace edema NEUROLOGICAL: withdrawals bilaterally, unable to assess rest of neuro exam Laboratory Results - last 24 hr 09/24/19 09/24/19 08:20 08:20 WBC 9.5 RBC 3.91 L Hgb 10.9 L Hct 32.0 L MCV 81.8 MCH 27.9 MCHC 34.1 RDW 15.5 Plt Count 335 MPV 6.7 L Sodium 136 Potassium 2.9 L* Chloride 103 Carbon Dioxide 25 Anion Gap 8 BUN 3.4 L Creatinine 0.3 L Est GFR (CKD-EPI)AfAm 210.85 Est GFR (CKD-EPI)NonAf 181.93 Random Glucose 130 H Calcium 8.3 L Total Bilirubin 0.3 AST 51 H ALT 84 H Alkaline Phosphatase 148 H Total Protein 6.6 Albumin 2.6 L Active Medications Current Medications Acetaminophen (Tylenol Oral Solution -) 650 mg GT Q6H PRN PRN Reason: FEVER Last Admin: 09/24/19 02:58 Dose: 650 mg Albuterol/Ipratropium (Duoneb -) 1 amp NEB RQID [facility] Last Admin: 09/24/19 12:03 Dose: 1 amp Apixaban (Eliquis -) 5 mg PEG BID [facility] Last Admin: 09/24/19 09:48 Dose: 5 mg Baclofen (Lioresal -) 10 mg GT BID@0500,1200 [facility] Last Admin: 09/24/19 12:24 Dose: 10 mg Baclofen (Lioresal -) 20 mg GT BID@0000,1800 [facility] Last Admin: 09/24/19 02:35 Dose: Not Given Budesonide (Pulmicort 0.5 Mg Nebulizer -) 1 amp NEB RBID [facility] Last Admin: 09/24/19 08:00 Dose: 1 amp Carbamazepine (Carbamazepine) 280 mg PO BID [facility] Last Admin: 09/24/19 09:50 Dose: 280 mg Clonazepam (Klonopin -) 1 mg GT TID [facility] Last Admin: 09/24/19 05:14 Dose: 1 mg Diazepam (Diastat Rectal Gel -) 20 mg RC PRN PRN PRN Reason: Seizures occuring 5 min + Stop: 09/23/19 13:51 Famotidine (Pepcid) 20 mg PEG BID [facility] Last Admin: 09/24/19 12:30 Dose: 20 mg IV Flush (Triple Lumen Flush) 4 ml IVPUSH PRN PRN PRN Reason: Protocol Last Admin: 09/24/19 09:51 Dose: 4 ml IV Flush (Triple Lumen Flush) 4 ml IVPUSH PRN PRN PRN Reason: Protocol Last Admin: 09/24/19 09:51 Dose: 4 ml Lactated Ringer's (Lactated Ringers Solution) 1,000 ml in 1,000 mls @ 100 mls/ hr IV ASDIR [facility] Last Admin: 09/24/19 05:15 Dose: 100 mls/hr Piperacillin Sod/Tazobactam (Sod 3.375 gm/ Dextrose) 50 mls @ 100 mls/hr IVPB Q8H-IV [facility]; Protocol Last Admin: 09/24/19 09:46 Dose: 100 mls/hr Vancomycin HCl 750 mg/ (Dextrose) 250 mls @ 250 mls/hr IVPB Q12H [facility]; Protocol Last Admin: 09/24/19 02:38 Dose: 250 mls/hr Levofloxacin (Levaquin 500 Mg Premixed Ivpb -) 500 mg in 100 mls @ 100 mls/hr IVPB DAILY [facility]; Protocol Last Admin: 09/24/19 09:46 Dose: 100 mls/hr Levetiracetam (Keppra Oral Solution -) 1,500 mg GT BID [facility] Last Admin: 09/24/19 12:42 Dose: 1,500 mg Oseltamivir Phosphate (Tamiflu -) 75 mg GT BID [facility] Stop: 09/27/19 10:01 Last Admin: 09/24/19 09:49 Dose: 75 mg Tamsulosin HCl (Flomax -) 0.4 mg PO 0830 [facility] Last Admin: 09/24/19 08:36 Dose: 0.4 mg Home Medications Medication Instructions Recorded Cholecalciferol (Vitamin D3) 2,000 unit GT DAILY 03/17/18 [Vitamin D3] Omeprazole Magnesium [Prilosec] 20 mg GT DAILY 03/17/18 clonazePAM [KlonoPIN -] 1 mg GT TID 03/17/18 Budesonide [Pulmicort 0.5 mg 1 neb NEB BID 07/12/18 Nebulizer -] Diazepam [Diastat Acudial] 20 mg RC PRN PRN 07/12/18 Ipratropium/Albuterol Sulfate 3 ml IH QID PRN 07/12/18 [Iprat-Albut 0.5-3(2.5) mg/3 ml] levETIRAcetam [Keppra Oral 1,500 mg GT BID cup 10/06/18 Solution -] Baclofen 20 mg GT BID@1800,0000 03/08/19 Apixaban [Eliquis] 5 mg GT BID 05/14/19 Tamsulosin HCl [Flomax] 0.4 mg GT DAILY 05/21/19 Baclofen 10 mg GT BID@0500,1200 08/19/19 Carbamazepine Oral Suspension 280 mg PO BID 09/22/19 [Tegretol Oral Suspension -] Microbiology 09/22/19 09:26 Blood - Peripheral Venous Blood Culture - Preliminary NO GROWTH OBTAINED AFTER 48 HOURS, INCUBATION TO CONTINUE FOR 3 DAYS. 09/22/19 09:20 Blood - Peripheral Venous Blood Culture - Preliminary NO GROWTH OBTAINED AFTER 48 HOURS, INCUBATION TO CONTINUE FOR 3 DAYS. 09/22/19 16:55 Urine - Urine - Catheterized Legionella Antigen - Final 09/22/19 16:55 Urine - Urine - Catheterized Streptococcus pneumoniae Antigen (M - Final 09/22/19 09:26 Urine - Urine - Catheterized Urine Culture - Final NO GROWTH OBTAINED ASSESSMENT/PLAN: 29 y/o M w/ PMH of CP w/ spastic quadriparesis, microcephaly, recurrent PNAs, seizures, asthma, scoliosis, and dysphagia presents with fever and cough admitted for sepsis 2/2 to influenza Sepsis 2/2 influenza Influenza A+ CXR: limited, no clear signs of infiltrates but marked scoliosis therefore cannot r/o PNA Hx of MDR + SCx. Vanc D2, Zosyn D2, Levaquin D2, Tamiflu CT chest was reported wrong today morning, will wait for corrected read MRSA nares screen pending #Hypokalemia Pt. 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 on eliquis 5 BID Dispo: cont to monitor in ICU, cont Abx, consider stopping Tamiflu Visit type - Emergency Visit Emergency Visit: Yes ED Registration Date: 09/22/19 Care time: The patient presented to the Emergency Department on the above date and was hospitalized for further evaluation of their emergent condition. - New Patient This patient is new to me today: Yes Date on this admission: 09/24/19 - Critical Care Critical Care patient: No - Discharge Referral Referred to [facility] Med P.C.: No ATTENDING PHYSICIAN STATEMENT I saw and evaluated the patient. I reviewed the resident's note and discussed the case with the resident. I agree with the resident's findings and plan as documented. SUBJECTIVE: OBJECTIVE: ASSESSMENT AND PLAN:
[2019-09-25] MEDS ORDERED: DEXTROSE 5%-WATER - 50 ML IVPB ONE ×3 (01:22→16:04)
[2019-09-25] MEDS ORDERED: PIPERACILLIN/TAZOBACTAM 3.375 GM VIAL IVPB ONE ×3 (01:22→16:04)
[2019-09-25] MEDS: PIPERACILLIN/TAZOB 3.375 GM 3.375 GM in DEXTROSE 5%-WATER - 50 ML IVPB SCH ×3 (01:25→17:31)
[2019-09-25] MEDS ORDERED: PT OWN MED DRAWER 7, Y5N ONE ×4 (03:22→20:53)
[2019-09-25] MEDS: VANCOMYCIN 750 MG in DEXTROSE 5%-WATER - 250 ML IVPB SCH (03:25)
[2019-09-25] MEDS: BACLOFEN 10 MG TABLET (FP) GT SCH ×3 (05:17→17:32)
[2019-09-25] MEDS: clonazePAM 2 MG TABLET GT SCH ×3 (05:17→21:00)
[2019-09-25 06:51] LABS: HEMATOCRIT 31.7 % (35.4-49); HEMOGLOBIN 10.6 GM/dL (11.7-16.9); MCH 27.8 pg (25.7-33.7); MCHC 33.5 g/dl (32.0-35.9); MEAN CELL VOLUME 82.8 fl (80-96); MEAN PLT VOLUME 7.2 fl (7.5-11.1); PLATELET COUNT 323 K/MM3 (134-434); RBC 3.83 M/mm3 (4.00-5.60); RDW 15.7 % (11.9-15.9); WHITE BLOOD COUNT 6.9 K/mm3 (4.0-10.0)
[2019-09-25 07:46] LABS: CALCIUM 8.2 mg/dL (8.5-10.1); CREATININE 0.2 mg/dL (0.55-1.3); POTASSIUM 3.3 mmol/L (3.5-5.1)
[2019-09-25 07:47] LABS: ALBUMIN 2.4 g/dl (3.4-5.0); BILIRUBIN,TOTAL 0.4 mg/dL (0.2-1); TOT PROT 6.4 g/dl (6.4-8.2)
[2019-09-25 07:49] LABS: BLOOD UREA NITROGEN 2.3 mg/dL (7-18)
[2019-09-25] MEDS: KCL 10 MEQ IVPB 10 MEQ/100 ML INFUS.BAG IVPB SCH ×3 (08:57→10:15)
[2019-09-25] MEDS: TAMSULOSIN HCL 0.4 MG CAP PO SCH (09:02)
[2019-09-25] MEDS: APIXABAN 5 MG TABLET PEG SCH ×2 (09:06→21:00)
[2019-09-25] MEDS: carBAMazepine 100 MG/5 ML UNIT-DOSE CUP PO SCH ×2 (09:06→21:00)
[2019-09-25] MEDS: levETIRAcetam 500 MG/5 ML ORAL SOLUTION (UNIT-DOSE CUPS) GT SCH ×2 (09:06→21:00)
[2019-09-25] MEDS: FAMOTIDINE 40 MG/5 ML ORAL SUSPENSION PEG SCH ×2 (09:07→21:00)
[2019-09-25] MEDS: OSELTAMIVIR PHOSPHATE 75 MG CAPSULE GT SCH ×2 (09:08→21:00)
--- NOTE | 2019-09-25 10:09 | PN ---
Progress Note (short form) - Note Progress Note: clinically comfortable nasal canulla Vital Signs Period Temp Pulse Resp BP Sys/Don Pulse Ox Last 24 Hr 98.6 F-98.7 F 94-120 17-24 129-165/79-94 100-100 cor-rrr llungs decreased bs at bases abd soft,nt ext no edema CBC, BMP 09/25/19 05:30 09/25/19 05:30 Microbiology 09/22/19 09:26 Blood - Peripheral Venous Blood Culture - Preliminary NO GROWTH OBTAINED AFTER 72 HOURS, INCUBATION TO CONTINUE FOR 2 DAYS. 09/22/19 09:20 Blood - Peripheral Venous Blood Culture - Preliminary NO GROWTH OBTAINED AFTER 72 HOURS, INCUBATION TO CONTINUE FOR 2 DAYS. 09/24/19 12:00 Sputum - Oropharynx Suctioned Sputum Gram Stain - Final 09/24/19 12:00 Sputum - Oropharynx Suctioned Sputum Sputum Culture - Preliminary NORMAL RESPIRATORY SHAQ 09/23/19 18:40 Nares - Mrsa Screen - Right MRSA Screen - Final NO MRSA ISOLATED 09/23/19 18:40 Nares - Mrsa Screen - Left MRSA Screen - Final NO MRSA ISOLATED 09/22/19 16:55 Urine - Urine - Catheterized Legionella Antigen - Final 09/22/19 16:55 Urine - Urine - Catheterized Streptococcus pneumoniae Antigen (M - Final 09/22/19 09:26 Urine - Urine - Catheterized Urine Culture - Final NO GROWTH OBTAINED Current Medications Acetaminophen (Tylenol Oral Solution -) 650 mg GT Q6H PRN PRN Reason: FEVER Last Admin: 09/24/19 02:58 Dose: 650 mg Albuterol/Ipratropium (Duoneb -) 1 amp NEB RQID [facility] Last Admin: 09/24/19 21:05 Dose: 1 amp Apixaban (Eliquis -) 5 mg PEG BID [facility] Last Admin: 09/25/19 09:06 Dose: 5 mg Baclofen (Lioresal -) 10 mg GT BID@0500,1200 [facility] Last Admin: 09/25/19 05:17 Dose: 10 mg Baclofen (Lioresal -) 20 mg GT BID@0000,1800 [facility] Last Admin: 09/24/19 23:57 Dose: 20 mg Budesonide (Pulmicort 0.5 Mg Nebulizer -) 1 amp NEB RBID [facility] Last Admin: 09/24/19 21:15 Dose: 1 amp Carbamazepine (Carbamazepine) 280 mg PO BID [facility] Last Admin: 09/25/19 09:06 Dose: 280 mg Clonazepam (Klonopin -) 1 mg GT TID [facility] Last Admin: 09/25/19 05:17 Dose: 1 mg Diazepam (Diastat Rectal Gel -) 20 mg RC PRN PRN PRN Reason: Seizures occuring 5 min + Stop: 09/23/19 13:51 Famotidine (Pepcid) 20 mg PEG BID [facility] Last Admin: 09/25/19 09:07 Dose: 20 mg IV Flush (Triple Lumen Flush) 4 ml IVPUSH PRN PRN PRN Reason: Protocol Last Admin: 09/24/19 09:51 Dose: 4 ml IV Flush (Triple Lumen Flush) 4 ml IVPUSH PRN PRN PRN Reason: Protocol Last Admin: 09/24/19 09:51 Dose: 4 ml Lactated Ringer's (Lactated Ringers Solution) 1,000 ml in 1,000 mls @ 100 mls/ hr IV ASDIR [facility] Last Admin: 09/24/19 16:00 Dose: 100 mls/hr Piperacillin Sod/Tazobactam (Sod 3.375 gm/ Dextrose) 50 mls @ 100 mls/hr IVPB Q8H-IV [facility]; Protocol Last Admin: 09/25/19 09:02 Dose: 100 mls/hr Vancomycin HCl 750 mg/ (Dextrose) 250 mls @ 250 mls/hr IVPB Q12H [facility]; Protocol Last Admin: 09/25/19 03:25 Dose: 250 mls/hr Levofloxacin (Levaquin 500 Mg Premixed Ivpb -) 500 mg in 100 mls @ 100 mls/hr IVPB DAILY [facility]; Protocol Last Admin: 09/25/19 09:03 Dose: 100 mls/hr Potassium Chloride (Potassium Chloride 10 Meq Premix Ivpb -) 10 meq in 100 mls @ 100 mls/hr IVPB Q60M [facility] Stop: 09/25/19 11:29 Last Admin: 09/25/19 09:03 Dose: 100 mls/hr Levetiracetam (Keppra Oral Solution -) 1,500 mg GT BID [facility] Last Admin: 09/25/19 09:06 Dose: 1,500 mg Oseltamivir Phosphate (Tamiflu -) 75 mg GT BID [facility] Stop: 09/27/19 10:01 Last Admin: 09/25/19 09:08 Dose: 75 mg Tamsulosin HCl (Flomax -) 0.4 mg PO 829 [facility] Last Admin: 09/25/19 09:02 Dose: 0.4 mg plan influenza A r/o pneumonia history of CRE severe developmental delays- CP/MR chest ct no contrast r/o pneumonia- ?developing RUL infiltrate-day #4 antibiotics tamiflu d/c vancomycin-mrsa screen negative d/c levaquin continue zosyn finish 5 days tamiflu STRICT CONTACT ISOLATION -Dedicated equipment DROPLET isolation for influenza d/w hospitalist
--- NOTE | 2019-09-25 12:30 | PN ---
Teaching Attending Note Name of Resident: Wilbert Vicente ATTENDING PHYSICIAN STATEMENT I saw and evaluated the patient. I reviewed the resident's note and discussed the case with the resident. I agree with the resident's findings and plan as documented. Seen and examined; please see resident note for further historical information. I personally verified all gaming historical information and exam findings. Personally interpreted all imaging and diagnostics and reviewed appropriate consults. I reviewed all labs and vital signs as per resident note and EMR as documented. I agree with the above assessment and plan unless supplemented by myself in the following. Seen in ICU (not on ICU service but there for isolation). HR improved, no issues with CVC, seen by ID. 10 item review of systems completed and is negative aside from as discussed in the subjective data in my own/the resident documentation. VS, labs, imaging reviewed NAD, AAO, resting comfortably in bed. RRR s1/2 no mgr Normal muscle tone, moves all 5 extremities with normal apparent strength Neck is supple, trachea midline, no minh LN Lungs CTAB with sym expansion NT ND +BS no minh organomegaly CN2-12 wnl; no FND NC AT EOMI PERRLA Normal mood, appropriate behavior, euthymic affect No skin breakdown or rashes noted Microbiology 09/22/19 09:26 Blood - Peripheral Venous Blood Culture - Preliminary NO GROWTH OBTAINED AFTER 48 HOURS, INCUBATION TO CONTINUE FOR 3 DAYS. 09/22/19 09:20 Blood - Peripheral Venous Blood Culture - Preliminary NO GROWTH OBTAINED AFTER 48 HOURS, INCUBATION TO CONTINUE FOR 3 DAYS. 09/22/19 16:55 Urine - Urine - Catheterized Legionella Antigen - Final 09/22/19 16:55 Urine - Urine - Catheterized Streptococcus pneumoniae Antigen (M - Final 09/22/19 09:26 Urine - Urine - Catheterized Urine Culture - Final NO GROWTH OBTAINED Final read on the chest CT shows mild degree of patchy consolidation in the right upper lobe concerning for pneumonia with mild bibasilar atelectasis ASSESSMENT AND PLAN: Patient presents with sepsis secondary to influenza. Zosyn, tamiflu, defer to pulm for steroids. continue home antiepileptics. Isotonic hydration. Monitor HR and WBC. FU micro; negative legionella, pnc ag's. NGTD cultures. Slowly improving. Problems include: -Sepsis, improved -OLIVIER Pneumonia (viral [flu +] with potential aspiration component; continue current abx, ID following, clinically improved but still requiring O2. Positive infiltrates and hypoxia. -Seizure history (Continue home meds, precautions) -Hx MR/CP (at baseline) -Hx dysphagia (secondary to developmental issues; at baseline with dietary recs appreciated) -Dextroscoliosis -Anemia, likely dilutional, continue to trend. No bleeding. -Coagulopathy, likely secondary to sepsis and global process, repeat in the morning -Lactic acidosis, resolved, -Hypokalemia, repleted, monitor -Elevated alkaline phosphatase, no abd pain. Continue to monitor Full code
--- NOTE | 2019-09-25 12:37 | PN ---
Progress Note (short form) - Note Progress Note: NAD on NC O2. No acute events overnight. Intake & Output 09/22/19 09/23/19 09/24/19 09/25/19 23:59 23:59 23:59 23:59 Intake Total 1500 1710 5550 1980 Output Total 1000 600 Balance 1500 1710 4550 1380 Weight 106 lb 11.2 oz 106 lb Last Vital Signs Temp Pulse Resp BP Pulse Ox 98.2 F 112 H 22 H 153/94 100 09/25/19 11:37 09/25/19 11:37 09/25/19 11:37 09/25/19 11:37 09/25/19 10:00 Active Medications Acetaminophen (Tylenol Oral Solution -) 650 mg GT Q6H PRN PRN Reason: FEVER Last Admin: 09/24/19 02:58 Dose: 650 mg Albuterol/Ipratropium (Duoneb -) 1 amp NEB RQID [facility] Last Admin: 09/24/19 21:05 Dose: 1 amp Apixaban (Eliquis -) 5 mg PEG BID [facility] Last Admin: 09/25/19 09:06 Dose: 5 mg Baclofen (Lioresal -) 10 mg GT BID@0500,1200 [facility] Last Admin: 09/25/19 11:34 Dose: 10 mg Baclofen (Lioresal -) 20 mg GT BID@0000,1800 [facility] Last Admin: 09/24/19 23:57 Dose: 20 mg Budesonide (Pulmicort 0.5 Mg Nebulizer -) 1 amp NEB RBID [facility] Last Admin: 09/24/19 21:15 Dose: 1 amp Carbamazepine (Carbamazepine) 280 mg PO BID [facility] Last Admin: 09/25/19 09:06 Dose: 280 mg Clonazepam (Klonopin -) 1 mg GT TID [facility] Last Admin: 09/25/19 05:17 Dose: 1 mg Diazepam (Diastat Rectal Gel -) 20 mg RC PRN PRN PRN Reason: Seizures occuring 5 min + Stop: 09/23/19 13:51 Famotidine (Pepcid) 20 mg PEG BID [facility] Last Admin: 09/25/19 09:07 Dose: 20 mg IV Flush (Triple Lumen Flush) 4 ml IVPUSH PRN PRN PRN Reason: Protocol Last Admin: 09/24/19 09:51 Dose: 4 ml IV Flush (Triple Lumen Flush) 4 ml IVPUSH PRN PRN PRN Reason: Protocol Last Admin: 09/24/19 09:51 Dose: 4 ml Piperacillin Sod/Tazobactam (Sod 3.375 gm/ Dextrose) 50 mls @ 100 mls/hr IVPB Q8H-IV [facility]; Protocol Last Admin: 09/25/19 09:02 Dose: 100 mls/hr Levetiracetam (Keppra Oral Solution -) 1,500 mg GT BID [facility] Last Admin: 09/25/19 09:06 Dose: 1,500 mg Oseltamivir Phosphate (Tamiflu -) 75 mg GT BID [facility] Stop: 09/27/19 10:01 Last Admin: 09/25/19 09:08 Dose: 75 mg Tamsulosin HCl (Flomax -) 0.4 mg PO 829 [facility] Last Admin: 09/25/19 09:02 Dose: 0.4 mg PE: Gen:non verbal, contracted, NAD HEENT: microceph, EOMI, reactive PULM:scattered rhonchi CV: S1S2 ABD:PEG CDI, +BS EXT: contracted, trace edema NEURO: withdrawals bilaterally Laboratory Results - last 24 hr 09/25/19 09/25/19 09/25/19 02:41 05:30 05:30 WBC 6.9 RBC 3.83 L Hgb 10.6 L Hct 31.7 L MCV 82.8 MCH 27.8 MCHC 33.5 RDW 15.7 Plt Count 323 MPV 7.2 L Sodium 131 L Potassium 3.3 L Chloride 96 L Carbon Dioxide 27 Anion Gap 8 BUN 2.3 L* Creatinine 0.2 L Est GFR (CKD-EPI)AfAm 249.09 Est GFR (CKD-EPI)NonAf 214.92 Random Glucose 118 H Calcium 8.2 L Phosphorus 3.0 Magnesium 2.0 Total Bilirubin 0.4 AST 30 ALT 67 H Alkaline Phosphatase 123 H Total Protein 6.4 Albumin 2.4 L Vancomycin Pre-Dose 3.4 L CXR reviewed post line, TLC in adequate position, chronically elevated R stephanie diaphram, scattered opacities mild IMP: Influenza A R/O RUL PNA ABX coverage per ID Tamiflu Supplemental O2 as needed to maintain saturation Aspiration precautions VTE prophylaxis BD TX Dr Trevizo
--- NOTE | 2019-09-25 14:33 | PN ---
Physical Exam: SUBJECTIVE: Patient seen and examined. No overnight events noted. Pt at baseline. No f/c/n/v/d. OBJECTIVE: Vital Signs Period Temp Pulse Resp BP Sys/Don Pulse Ox Last 24 Hr 97.5 F-98.7 F 94-116 17-24 117-165/70-94 100-100 GENERAL: non-verbal, contracted, mild resp distress, monitoring in ICU EYES: Microceph, PERRL, extraocular movements intact. No ptosis. ENT: moist mucous membranes. NECK: Trachea midline, full range of motion, supple. LUNGS: scattered rhonchi b/l HEART: Tachycardic, normal S1, S2 without murmur, rub or gallop. ABDOMEN: PEG CDI, +BS, NT, nondistended, normoactive bowel sounds, no guarding, no rebound, no hepatosplenomegaly, no masses. EXTREMITIES: contracted, trace edema NEUROLOGICAL: withdrawals bilaterally, unable to assess rest of neuro exam Laboratory Results - last 24 hr 09/25/19 09/25/19 09/25/19 02:41 05:30 05:30 WBC 6.9 RBC 3.83 L Hgb 10.6 L Hct 31.7 L MCV 82.8 MCH 27.8 MCHC 33.5 RDW 15.7 Plt Count 323 MPV 7.2 L Sodium 131 L Potassium 3.3 L Chloride 96 L Carbon Dioxide 27 Anion Gap 8 BUN 2.3 L* Creatinine 0.2 L Est GFR (CKD-EPI)AfAm 249.09 Est GFR (CKD-EPI)NonAf 214.92 Random Glucose 118 H Calcium 8.2 L Phosphorus 3.0 Magnesium 2.0 Total Bilirubin 0.4 AST 30 ALT 67 H Alkaline Phosphatase 123 H Total Protein 6.4 Albumin 2.4 L Vancomycin Pre-Dose 3.4 L Active Medications Current Medications Acetaminophen (Tylenol Oral Solution -) 650 mg GT Q6H PRN PRN Reason: FEVER Last Admin: 09/24/19 02:58 Dose: 650 mg Albuterol/Ipratropium (Duoneb -) 1 amp NEB RQID [facility] Last Admin: 09/24/19 21:05 Dose: 1 amp Apixaban (Eliquis -) 5 mg PEG BID [facility] Last Admin: 09/25/19 09:06 Dose: 5 mg Baclofen (Lioresal -) 10 mg GT BID@0500,1200 [facility] Last Admin: 09/25/19 11:34 Dose: 10 mg Baclofen (Lioresal -) 20 mg GT BID@0000,1800 [facility] Last Admin: 09/24/19 23:57 Dose: 20 mg Budesonide (Pulmicort 0.5 Mg Nebulizer -) 1 amp NEB RBID [facility] Last Admin: 09/24/19 21:15 Dose: 1 amp Carbamazepine (Carbamazepine) 280 mg PO BID [facility] Last Admin: 09/25/19 09:06 Dose: 280 mg Clonazepam (Klonopin -) 1 mg GT TID [facility] Last Admin: 09/25/19 14:06 Dose: 1 mg Diazepam (Diastat Rectal Gel -) 20 mg RC PRN PRN PRN Reason: Seizures occuring 5 min + Stop: 09/23/19 13:51 Famotidine (Pepcid) 20 mg PEG BID [facility] Last Admin: 09/25/19 09:07 Dose: 20 mg IV Flush (Triple Lumen Flush) 4 ml IVPUSH PRN PRN PRN Reason: Protocol Last Admin: 09/24/19 09:51 Dose: 4 ml IV Flush (Triple Lumen Flush) 4 ml IVPUSH PRN PRN PRN Reason: Protocol Last Admin: 09/24/19 09:51 Dose: 4 ml Piperacillin Sod/Tazobactam (Sod 3.375 gm/ Dextrose) 50 mls @ 100 mls/hr IVPB Q8H-IV [facility]; Protocol Last Admin: 09/25/19 09:02 Dose: 100 mls/hr Levetiracetam (Keppra Oral Solution -) 1,500 mg GT BID [facility] Last Admin: 09/25/19 09:06 Dose: 1,500 mg Oseltamivir Phosphate (Tamiflu -) 75 mg GT BID [facility] Stop: 09/27/19 10:01 Last Admin: 09/25/19 09:08 Dose: 75 mg Tamsulosin HCl (Flomax -) 0.4 mg PO 0830 [facility] Last Admin: 09/25/19 09:02 Dose: 0.4 mg Home Medications Medication Instructions Recorded Cholecalciferol (Vitamin D3) 2,000 unit GT DAILY 03/17/18 [Vitamin D3] Omeprazole Magnesium [Prilosec] 20 mg GT DAILY 03/17/18 clonazePAM [KlonoPIN -] 1 mg GT TID 03/17/18 Budesonide [Pulmicort 0.5 mg 1 neb NEB BID 07/12/18 Nebulizer -] Diazepam [Diastat Acudial] 20 mg RC PRN PRN 07/12/18 Ipratropium/Albuterol Sulfate 3 ml IH QID PRN 07/12/18 [Iprat-Albut 0.5-3(2.5) mg/3 ml] levETIRAcetam [Keppra Oral 1,500 mg GT BID cup 10/06/18 Solution -] Baclofen 20 mg GT BID@1800,0000 03/08/19 Apixaban [Eliquis] 5 mg GT BID 05/14/19 Tamsulosin HCl [Flomax] 0.4 mg GT DAILY 05/21/19 Baclofen 10 mg GT BID@0500,1200 08/19/19 Carbamazepine Oral Suspension 280 mg PO BID 09/22/19 [Tegretol Oral Suspension -] Microbiology 09/22/19 09:26 Blood - Peripheral Venous Blood Culture - Preliminary NO GROWTH OBTAINED AFTER 72 HOURS, INCUBATION TO CONTINUE FOR 2 DAYS. 09/22/19 09:20 Blood - Peripheral Venous Blood Culture - Preliminary NO GROWTH OBTAINED AFTER 72 HOURS, INCUBATION TO CONTINUE FOR 2 DAYS. 09/24/19 12:00 Sputum - Oropharynx Suctioned Sputum Gram Stain - Final 09/24/19 12:00 Sputum - Oropharynx Suctioned Sputum Sputum Culture - Preliminary NORMAL RESPIRATORY ED 09/23/19 18:40 Nares - Mrsa Screen - Right MRSA Screen - Final NO MRSA ISOLATED 09/23/19 18:40 Nares - Mrsa Screen - Left MRSA Screen - Final NO MRSA ISOLATED 09/22/19 16:55 Urine - Urine - Catheterized Legionella Antigen - Final 09/22/19 16:55 Urine - Urine - Catheterized Streptococcus pneumoniae Antigen (M - Final 09/22/19 09:26 Urine - Urine - Catheterized Urine Culture - Final NO GROWTH OBTAINED ASSESSMENT/PLAN: 29 y/o M w/ PMH of CP w/ spastic quadriparesis, microcephaly, recurrent PNAs, seizures, asthma, scoliosis, and dysphagia presents with fever and cough admitted for sepsis 2/2 to influenza Sepsis 2/2 influenza Influenza A+ Hx of MDR + SCx. Zosyn D3, Tamiflu D2 levaquin and vanc d/gerry MRSA nares screen neg sputum cx normal ed CT chest: RUL patchy consolidation- concerning for PNA. B/l atelectasis Isolation precaution #Hypokalemia Potassium repleted, will trend labs #Seizure Disorder (Epilepsy) #Asthma c/w home medications #FEN LR d/gerry monitor electrolytes, replete as needed #DVT Ppx. on eliquis 5 BID Dispo: cont to monitor in ICU, cont Abx, complete tamiflu course Visit type - Emergency Visit Emergency Visit: Yes ED Registration Date: 09/22/19 Care time: The patient presented to the Emergency Department on the above date and was hospitalized for further evaluation of their emergent condition. - New Patient This patient is new to me today: Yes Date on this admission: 09/25/19 - Critical Care Critical Care patient: No - Discharge Referral Referred to [facility] Med P.C.: No ATTENDING PHYSICIAN STATEMENT I saw and evaluated the patient. I reviewed the resident's note and discussed the case with the resident. I agree with the resident's findings and plan as documented. SUBJECTIVE: OBJECTIVE: ASSESSMENT AND PLAN:
[2019-09-25] MEDS: BUDESONIDE 0.5 MG/2 ML INH SUSP VIAL NEB SCH (20:54)
[2019-09-25] MEDS: ALBUTEROL SO4 2.5/IPRATROPIUM 0.5 INH SOL 3 ML VIAL.NEB. NEB SCH (20:54)
[2019-09-26] MEDS ORDERED: PIPERACILLIN/TAZOBACTAM 3.375 GM VIAL IVPB ONE ×3 (01:02→16:40)
[2019-09-26] MEDS ORDERED: DEXTROSE 5%-WATER - 50 ML IVPB ONE ×3 (01:02→16:40)
[2019-09-26] MEDS ORDERED: PT OWN MED DRAWER 7, Y5N ONE ×2 (01:02→14:14)
[2019-09-26] MEDS: PIPERACILLIN/TAZOB 3.375 GM 3.375 GM in DEXTROSE 5%-WATER - 50 ML IVPB SCH ×3 (01:21→17:18)
[2019-09-26] MEDS: BACLOFEN 10 MG TABLET (FP) GT SCH ×5 (01:21→23:19)
[2019-09-26 06:27] LABS: HEMATOCRIT 31.6 % (35.4-49); HEMOGLOBIN 10.6 GM/dL (11.7-16.9); MCH 27.7 pg (25.7-33.7); MCHC 33.5 g/dl (32.0-35.9); MEAN CELL VOLUME 82.8 fl (80-96); PLATELET COUNT 295 K/MM3 (134-434); RBC 3.81 M/mm3 (4.00-5.60); RDW 15.8 % (11.9-15.9); WHITE BLOOD COUNT 3.7 K/mm3 (4.0-10.0)
[2019-09-26] MEDS: clonazePAM 2 MG TABLET GT SCH ×3 (06:30→21:23)
[2019-09-26 06:48] LABS: ALBUMIN 2.4 g/dl (3.4-5.0); BILIRUBIN,TOTAL 0.3 mg/dL (0.2-1); BLOOD UREA NITROGEN 3.8 mg/dL (7-18); CALCIUM 8.3 mg/dL (8.5-10.1); CREATININE 0.3 mg/dL (0.55-1.3); POTASSIUM 3.6 mmol/L (3.5-5.1); TOT PROT 6.4 g/dl (6.4-8.2)
[2019-09-26] MEDS: BUDESONIDE 0.5 MG/2 ML INH SUSP VIAL NEB SCH ×2 (07:45→20:30)
[2019-09-26] MEDS: ALBUTEROL SO4 2.5/IPRATROPIUM 0.5 INH SOL 3 ML VIAL.NEB. NEB SCH ×4 (07:45→20:35)
[2019-09-26] MEDS: OSELTAMIVIR PHOSPHATE 75 MG CAPSULE GT SCH ×2 (09:00→21:23)
[2019-09-26] MEDS: FAMOTIDINE 40 MG/5 ML ORAL SUSPENSION PEG SCH ×2 (09:00→21:26)
[2019-09-26] MEDS: APIXABAN 5 MG TABLET PEG SCH ×2 (09:01→21:24)
[2019-09-26] MEDS: TAMSULOSIN HCL 0.4 MG CAP PO SCH (09:01)
[2019-09-26] MEDS: levETIRAcetam 500 MG/5 ML ORAL SOLUTION (UNIT-DOSE CUPS) GT SCH ×2 (09:01→21:25)
[2019-09-26] MEDS: carBAMazepine 100 MG/5 ML UNIT-DOSE CUP PO SCH ×2 (09:02→21:25)
--- NOTE | 2019-09-26 12:22 | PN ---
Physical Exam: SUBJECTIVE: Patient seen and examined. No overnight events noted. Pt at baseline. Awake and responding to pain but nonverbal. No f/c/n/v/d OBJECTIVE: Vital Signs Period Temp Pulse Resp BP Sys/Don Pulse Ox Last 24 Hr 97.5 F-97.9 F 82-116 15-26 100-152/51-82 98-100 GENERAL: non-verbal, contracted, mild resp distress, monitoring in ICU EYES: Microceph, PERRL, extraocular movements intact. No ptosis. ENT: moist mucous membranes. NECK: Trachea midline, full range of motion, supple. Right subclavian central line LUNGS: scattered rhonchi b/l HEART: Tachycardic, normal S1, S2 without murmur, rub or gallop. ABDOMEN: PEG CDI, +BS, NT, nondistended, normoactive bowel sounds, no guarding, no rebound, no hepatosplenomegaly, no masses. EXTREMITIES: contracted, trace edema NEUROLOGICAL: withdrawals bilaterally, unable to assess rest of neuro exam Laboratory Results - last 24 hr 09/26/19 09/26/19 06:00 06:00 WBC 3.7 L RBC 3.81 L Hgb 10.6 L Hct 31.6 L MCV 82.8 MCH 27.7 MCHC 33.5 RDW 15.8 Plt Count 295 MPV 7.0 L Sodium 138 Potassium 3.6 Chloride 102 Carbon Dioxide 29 Anion Gap 7 L BUN 3.8 L Creatinine 0.3 L Est GFR (CKD-EPI)AfAm 210.85 Est GFR (CKD-EPI)NonAf 181.93 Random Glucose 102 Calcium 8.3 L Total Bilirubin 0.3 AST 16 ALT 55 Alkaline Phosphatase 106 Total Protein 6.4 Albumin 2.4 L Active Medications Current Medications Acetaminophen (Tylenol Oral Solution -) 650 mg GT Q6H PRN PRN Reason: FEVER Last Admin: 09/24/19 02:58 Dose: 650 mg Albuterol/Ipratropium (Duoneb -) 1 amp NEB RQID [facility] Last Admin: 09/26/19 07:45 Dose: 1 amp Apixaban (Eliquis -) 5 mg PEG BID [facility] Last Admin: 09/26/19 09:01 Dose: 5 mg Baclofen (Lioresal -) 10 mg GT BID@0500,1200 [facility] Last Admin: 09/26/19 06:30 Dose: 10 mg Baclofen (Lioresal -) 20 mg GT BID@0000,1800 [facility] Last Admin: 09/26/19 01:21 Dose: 20 mg Budesonide (Pulmicort 0.5 Mg Nebulizer -) 1 amp NEB RBID [facility] Last Admin: 09/26/19 07:45 Dose: Not Given Carbamazepine (Carbamazepine) 280 mg PO BID [facility] Last Admin: 09/26/19 09:02 Dose: 280 mg Clonazepam (Klonopin -) 1 mg GT TID [facility] Last Admin: 09/26/19 06:30 Dose: 1 mg Famotidine (Pepcid) 20 mg PEG BID [facility] Last Admin: 09/26/19 09:00 Dose: 20 mg IV Flush (Triple Lumen Flush) 4 ml IVPUSH PRN PRN PRN Reason: Protocol Last Admin: 09/24/19 09:51 Dose: 4 ml IV Flush (Triple Lumen Flush) 4 ml IVPUSH PRN PRN PRN Reason: Protocol Last Admin: 09/24/19 09:51 Dose: 4 ml Piperacillin Sod/Tazobactam (Sod 3.375 gm/ Dextrose) 50 mls @ 100 mls/hr IVPB Q8H-IV [facility]; Protocol Last Admin: 09/26/19 09:02 Dose: 100 mls/hr Levetiracetam (Keppra Oral Solution -) 1,500 mg GT BID [facility] Last Admin: 09/26/19 09:01 Dose: 1,500 mg Oseltamivir Phosphate (Tamiflu -) 75 mg GT BID [facility] Stop: 09/27/19 10:01 Last Admin: 09/26/19 09:00 Dose: 75 mg Tamsulosin HCl (Flomax -) 0.4 mg PO 0830 [facility] Last Admin: 09/26/19 09:01 Dose: 0.4 mg Home Medications Medication Instructions Recorded Cholecalciferol (Vitamin D3) 2,000 unit GT DAILY 03/17/18 [Vitamin D3] Omeprazole Magnesium [Prilosec] 20 mg GT DAILY 03/17/18 clonazePAM [KlonoPIN -] 1 mg GT TID 03/17/18 Budesonide [Pulmicort 0.5 mg 1 neb NEB BID 07/12/18 Nebulizer -] Diazepam [Diastat Acudial] 20 mg RC PRN PRN 07/12/18 Ipratropium/Albuterol Sulfate 3 ml IH QID PRN 07/12/18 [Iprat-Albut 0.5-3(2.5) mg/3 ml] levETIRAcetam [Keppra Oral 1,500 mg GT BID cup 10/06/18 Solution -] Baclofen 20 mg GT BID@1800,0000 03/08/19 Apixaban [Eliquis] 5 mg GT BID 05/14/19 Tamsulosin HCl [Flomax] 0.4 mg GT DAILY 05/21/19 Baclofen 10 mg GT BID@0500,1200 08/19/19 Carbamazepine Oral Suspension 280 mg PO BID 09/22/19 [Tegretol Oral Suspension -] Mupirocin Ointment [Bactroban 2% 1 unit TP QID 09/26/19 Ointment -] Nystatin Ointment [Mycostatin 1 unit TP TID 09/26/19 Ointment -] Triamcinolone 0.1% Cream 1 unit TP BID 09/26/19 [Aristocort 0.1% Cream -] Microbiology 09/24/19 12:00 Sputum - Oropharynx Suctioned Sputum Gram Stain - Final 09/24/19 12:00 Sputum - Oropharynx Suctioned Sputum Sputum Culture - Final NORMAL RESPIRATORY SHAQ 09/22/19 09:26 Blood - Peripheral Venous Blood Culture - Preliminary NO GROWTH OBTAINED AFTER 96 HOURS, INCUBATION TO CONTINUE FOR 1 DAYS. 09/22/19 09:20 Blood - Peripheral Venous Blood Culture - Preliminary NO GROWTH OBTAINED AFTER 96 HOURS, INCUBATION TO CONTINUE FOR 1 DAYS. 09/23/19 18:40 Nares - Mrsa Screen - Right MRSA Screen - Final NO MRSA ISOLATED 09/23/19 18:40 Nares - Mrsa Screen - Left MRSA Screen - Final NO MRSA ISOLATED 09/22/19 16:55 Urine - Urine - Catheterized Legionella Antigen - Final 09/22/19 16:55 Urine - Urine - Catheterized Streptococcus pneumoniae Antigen (M - Final 09/22/19 09:26 Urine - Urine - Catheterized Urine Culture - Final NO GROWTH OBTAINED ASSESSMENT/PLAN: 29 y/o M w/ PMH of CP w/ spastic quadriparesis, microcephaly, recurrent PNAs, seizures, asthma, scoliosis, and dysphagia presents with fever and cough admitted for sepsis 2/2 to influenza Sepsis 2/2 influenza Influenza A+ Hx of MDR + SCx. Zosyn D4, Tamiflu D3 CT chest: RUL patchy consolidation- concerning for PNA. B/l atelectasis Isolation precaution #Hypokalemia Potassium repleted, will trend labs #Seizure Disorder (Epilepsy) #Asthma c/w home medications #Hx of DVT Right LE (03/15/19) Eliquis 5 mg BID #FEN Jevity rate 25, goal 40 monitor electrolytes, replete as needed #DVT Ppx. on eliquis 5 BID Dispo: cont to monitor in ICU, cont Abx, complete tamiflu course Visit type - Emergency Visit Emergency Visit: Yes ED Registration Date: 09/22/19 Care time: The patient presented to the Emergency Department on the above date and was hospitalized for further evaluation of their emergent condition. - New Patient This patient is new to me today: Yes Date on this admission: 09/27/19 - Critical Care Critical Care patient: No - Discharge Referral Referred to [facility] Med P.C.: No ATTENDING PHYSICIAN STATEMENT I saw and evaluated the patient. I reviewed the resident's note and discussed the case with the resident. I agree with the resident's findings and plan as documented. SUBJECTIVE: OBJECTIVE: ASSESSMENT AND PLAN:
--- NOTE | 2019-09-26 12:31 | PN ---
Teaching Attending Note Name of Resident: Wilbert Vicente ATTENDING PHYSICIAN STATEMENT I saw and evaluated the patient. I reviewed the resident's note and discussed the case with the resident. I agree with the resident's findings and plan as documented. SUBJECTIVE: Non-verbal, unable to participate in medical interview. OBJECTIVE: Afebrile, Hemodynamically Stable. Comfortable on 2-3L O2 via NC Last Vital Signs Temp Pulse Resp BP Pulse Ox 97.9 F 92 H 20 111/52 L 100 09/26/19 00:00 09/26/19 06:00 09/26/19 08:12 09/26/19 06:00 09/26/19 08:12 HEENT - Microcephaly. Heart - S1, S2, RRR Lungs - good air entry bilaterally, harsh BS on R MZ Abdomen - Soft, PEG in-situ (site clean) Extremities - no edema, contractures, wasting. Laboratory Results - last 24 hr 09/26/19 09/26/19 06:00 06:00 WBC 3.7 L RBC 3.81 L Hgb 10.6 L Hct 31.6 L MCV 82.8 MCH 27.7 MCHC 33.5 RDW 15.8 Plt Count 295 MPV 7.0 L Sodium 138 Potassium 3.6 Chloride 102 Carbon Dioxide 29 Anion Gap 7 L BUN 3.8 L Creatinine 0.3 L Est GFR (CKD-EPI)AfAm 210.85 Est GFR (CKD-EPI)NonAf 181.93 Random Glucose 102 Calcium 8.3 L Total Bilirubin 0.3 AST 16 ALT 55 Alkaline Phosphatase 106 Total Protein 6.4 Albumin 2.4 L Current Medications Generic Name Dose Route Start Last Admin Trade Name Mercedez PRN Reason Stop Dose Admin Acetaminophen 650 mg 09/22/19 14:19 09/24/19 02:58 Tylenol Oral Solution - GT 650 mg Q6H PRN Administration FEVER Albuterol/Ipratropium 1 amp 09/22/19 16:00 09/26/19 07:45 Duoneb - NEB 1 amp RQID [facility]KSANDR Administration Apixaban 5 mg 09/22/19 22:00 09/26/19 09:01 Eliquis - PEG 5 mg BID [facility]KSANDR Administration Baclofen 10 mg 09/23/19 05:00 09/26/19 06:30 Lioresal - GT 10 mg BID@0500,1200 A[facility] Administration Baclofen 20 mg 09/23/19 18:00 09/26/19 01:21 Lioresal - GT 20 mg BID@0000,1800 A[facility] Administration Budesonide 1 amp 09/23/19 08:00 09/26/19 07:45 Pulmicort 0.5 Mg Nebulizer - NEB Not Given RBID ALEKSANDR Carbamazepine 280 mg 09/22/19 22:00 09/26/19 09:02 Carbamazepine PO 280 mg BID [facility]AN[facility] Administration Clonazepam 1 mg 09/22/19 14:00 09/26/19 06:30 Klonopin - GT 1 mg TID ALEKSANDR Administration Famotidine 20 mg 09/22/19 22:00 09/26/19 09:00 Pepcid PEG 20 mg BID ALE[facility]ANDR Administration IV Flush 4 ml 09/23/19 14:09 09/24/19 09:51 Triple Lumen Flush IVPUSH 4 ml PRN PRN Administration Protocol IV Flush 4 ml 09/23/19 15:07 09/24/19 09:51 Triple Lumen Flush IVPUSH 4 ml PRN PRN Administration Protocol Piperacillin Sod/Tazobactam 50 mls @ 100 mls/hr 09/23/19 10:30 09/26/19 09:02 Sod 3.375 gm/ Dextrose IVPB 100 mls/hr Q8H-IV [facility]AN[facility] Administration Protocol Levetiracetam 1,500 mg 09/22/19 22:00 09/26/19 09:01 Keppra Oral Solution - GT 1,500 mg BID [facility] Administration Oseltamivir Phosphate 75 mg 09/24/19 10:00 09/26/19 09:00 Tamiflu - GT 09/27/19 10:01 75 mg BID ALEKSANDR Administration Tamsulosin HCl 0.4 mg 09/23/19 08:30 09/26/19 09:01 Flomax - PO 0.4 mg 0830 ALE[facility]AN[facility] Administration Home Medications Medication Instructions Recorded Cholecalciferol (Vitamin D3) 2,000 unit GT DAILY 03/17/18 [Vitamin D3] Omeprazole Magnesium [Prilosec] 20 mg GT DAILY 03/17/18 clonazePAM [KlonoPIN -] 1 mg GT TID 03/17/18 Budesonide [Pulmicort 0.5 mg 1 neb NEB BID 07/12/18 Nebulizer -] Diazepam [Diastat Acudial] 20 mg RC PRN PRN 07/12/18 Ipratropium/Albuterol Sulfate 3 ml IH QID PRN 07/12/18 [Iprat-Albut 0.5-3(2.5) mg/3 ml] levETIRAcetam [Keppra Oral 1,500 mg GT BID cup 10/06/18 Solution -] Baclofen 20 mg GT BID@1800,0000 03/08/19 Apixaban [Eliquis] 5 mg GT BID 05/14/19 Tamsulosin HCl [Flomax] 0.4 mg GT DAILY 05/21/19 Baclofen 10 mg GT BID@0500,1200 08/19/19 Carbamazepine Oral Suspension 280 mg PO BID 09/22/19 [Tegretol Oral Suspension -] Mupirocin Ointment [Bactroban 2% 1 unit TP QID 09/26/19 Ointment -] Nystatin Ointment [Mycostatin 1 unit TP TID 09/26/19 Ointment -] Triamcinolone 0.1% Cream 1 unit TP BID 09/26/19 [Aristocort 0.1% Cream -] ASSESSMENT AND PLAN: 29 year old male [facility], History of CP w/ spastic/functional quadriplegia, Microcephaly, Asthma, recurrent PNA, Seizure Disorder, Scoliosis, and Dysphagia s/p PEG, presented with fever and cough, admitted for sepsis 2/2 to influenza A and Pneumonia. 1. Sepsis secondary to Influenza A with Pneumonia CT chest - consolidation RUL, atelectasis at bases. ?superimposed bacterial infection Continue Tamiflu and Zosyn. 2. Seizure Disorder - continue Carbamazepine, Keppra, Clonazepam, Diazepam PRN. 3. History of DVT - on Eliquis. 4. CP with Developmental Delay and spastic quadriparesis - continue Baclofen, Clonazepam. DVT Px - on Eliquis
--- NOTE | 2019-09-26 13:27 | PN ---
Progress Note (short form) - Note Progress Note: NAD on NC O2. No acute events overnight. Intake & Output 09/23/19 09/24/19 09/25/19 09/26/19 23:59 23:59 23:59 23:59 Intake Total 1710 5550 3610 1130 Output Total 1000 600 Balance 1710 4550 3010 1130 Weight 106 lb Last Vital Signs Temp Pulse Resp BP Pulse Ox 97.9 F 92 H 20 111/52 L 100 09/26/19 00:00 09/26/19 06:00 09/26/19 08:12 09/26/19 06:00 09/26/19 08:12 Active Medications Acetaminophen (Tylenol Oral Solution -) 650 mg GT Q6H PRN PRN Reason: FEVER Last Admin: 09/24/19 02:58 Dose: 650 mg Albuterol/Ipratropium (Duoneb -) 1 amp NEB RQID [facility] Last Admin: 09/26/19 07:45 Dose: 1 amp Apixaban (Eliquis -) 5 mg PEG BID [facility] Last Admin: 09/26/19 09:01 Dose: 5 mg Baclofen (Lioresal -) 10 mg GT BID@0500,1200 [facility] Last Admin: 09/26/19 06:30 Dose: 10 mg Baclofen (Lioresal -) 20 mg GT BID@0000,1800 [facility] Last Admin: 09/26/19 01:21 Dose: 20 mg Budesonide (Pulmicort 0.5 Mg Nebulizer -) 1 amp NEB RBID [facility] Last Admin: 09/26/19 07:45 Dose: Not Given Carbamazepine (Carbamazepine) 280 mg PO BID [facility] Last Admin: 09/26/19 09:02 Dose: 280 mg Clonazepam (Klonopin -) 1 mg GT TID [facility] Last Admin: 09/26/19 06:30 Dose: 1 mg Famotidine (Pepcid) 20 mg PEG BID [facility] Last Admin: 09/26/19 09:00 Dose: 20 mg IV Flush (Triple Lumen Flush) 4 ml IVPUSH PRN PRN PRN Reason: Protocol Last Admin: 09/24/19 09:51 Dose: 4 ml IV Flush (Triple Lumen Flush) 4 ml IVPUSH PRN PRN PRN Reason: Protocol Last Admin: 09/24/19 09:51 Dose: 4 ml Piperacillin Sod/Tazobactam (Sod 3.375 gm/ Dextrose) 50 mls @ 100 mls/hr IVPB Q8H-IV [facility]; Protocol Last Admin: 09/26/19 09:02 Dose: 100 mls/hr Levetiracetam (Keppra Oral Solution -) 1,500 mg GT BID [facility] Last Admin: 09/26/19 09:01 Dose: 1,500 mg Oseltamivir Phosphate (Tamiflu -) 75 mg GT BID [facility] Stop: 09/27/19 10:01 Last Admin: 09/26/19 09:00 Dose: 75 mg Tamsulosin HCl (Flomax -) 0.4 mg PO 0830 [facility] Last Admin: 09/26/19 09:01 Dose: 0.4 mg PE: Gen:non verbal, contracted, NAD HEENT: microceph, EOMI, reactive PULM:scattered rhonchi CV: S1S2 ABD:PEG CDI, +BS EXT: contracted, trace edema NEURO: withdrawals bilaterally Laboratory Results - last 24 hr 09/26/19 09/26/19 06:00 06:00 WBC 3.7 L RBC 3.81 L Hgb 10.6 L Hct 31.6 L MCV 82.8 MCH 27.7 MCHC 33.5 RDW 15.8 Plt Count 295 MPV 7.0 L Sodium 138 Potassium 3.6 Chloride 102 Carbon Dioxide 29 Anion Gap 7 L BUN 3.8 L Creatinine 0.3 L Est GFR (CKD-EPI)AfAm 210.85 Est GFR (CKD-EPI)NonAf 181.93 Random Glucose 102 Calcium 8.3 L Total Bilirubin 0.3 AST 16 ALT 55 Alkaline Phosphatase 106 Total Protein 6.4 Albumin 2.4 L IMP: Influenza A R/O RUL PNA ABX coverage per ID Tamiflu Supplemental O2 as needed to maintain saturation Aspiration precautions VTE prophylaxis BD TX Dr Trevizo
[2019-09-27] MEDS: PIPERACILLIN/TAZOB 3.375 GM 3.375 GM in DEXTROSE 5%-WATER - 50 ML IVPB SCH ×3 (02:40→17:48)
[2019-09-27] MEDS: BACLOFEN 10 MG TABLET (FP) GT SCH ×3 (05:22→17:51)
[2019-09-27] MEDS: clonazePAM 2 MG TABLET GT SCH ×3 (05:22→22:23)
[2019-09-27 06:26] LABS: HEMATOCRIT 33.7 % (35.4-49); HEMOGLOBIN 11.3 GM/dL (11.7-16.9); MCH 27.7 pg (25.7-33.7); MCHC 33.5 g/dl (32.0-35.9); MEAN CELL VOLUME 82.5 fl (80-96); MEAN PLT VOLUME 6.9 fl (7.5-11.1); PLATELET COUNT 392 K/MM3 (134-434); RBC 4.08 M/mm3 (4.00-5.60); RDW 15.8 % (11.9-15.9); WHITE BLOOD COUNT 4.9 K/mm3 (4.0-10.0)
--- NOTE | 2019-09-27 06:38 | PN ---
Physical Exam: SUBJECTIVE: Patient seen and examined. No overnight events noted. Pt at baseline. Awake and responding to pain but nonverbal. Breathing improved. No f/c /n/v/d OBJECTIVE: Vital Signs Period Temp Pulse Resp BP Sys/Don Pulse Ox Last 24 Hr 98.7 F-99.9 F 79-102 18-22 103-137/55-83 98-100 GENERAL: non-verbal, contracted, mild resp distress, monitoring in ICU EYES: Microceph, PERRL, extraocular movements intact. No ptosis. ENT: moist mucous membranes. NECK: Trachea midline, full range of motion, supple. Right subclavian central line LUNGS: scattered rhonchi b/l HEART: Tachycardic, normal S1, S2 without murmur, rub or gallop. ABDOMEN: PEG CDI, +BS, NT, nondistended, normoactive bowel sounds, no guarding, no rebound, no hepatosplenomegaly, no masses. EXTREMITIES: contracted, trace edema NEUROLOGICAL: withdrawals bilaterally, unable to assess rest of neuro exam Laboratory Results - last 24 hr 09/26/19 06:00 Sodium 138 Potassium 3.6 Chloride 102 Carbon Dioxide 29 Anion Gap 7 L BUN 3.8 L Creatinine 0.3 L Est GFR (CKD-EPI)AfAm 210.85 Est GFR (CKD-EPI)NonAf 181.93 Random Glucose 102 Calcium 8.3 L Total Bilirubin 0.3 AST 16 ALT 55 Alkaline Phosphatase 106 Total Protein 6.4 Albumin 2.4 L Active Medications Current Medications Acetaminophen (Tylenol Oral Solution -) 650 mg GT Q6H PRN PRN Reason: FEVER Last Admin: 09/24/19 02:58 Dose: 650 mg Albuterol/Ipratropium (Duoneb -) 1 amp NEB RQID [facility] Last Admin: 09/27/19 08:15 Dose: 1 amp Apixaban (Eliquis -) 5 mg PEG BID [facility] Last Admin: 09/27/19 09:36 Dose: 5 mg Baclofen (Lioresal -) 10 mg GT BID@0500,1200 [facility] Last Admin: 09/27/19 12:29 Dose: 10 mg Baclofen (Lioresal -) 20 mg GT BID@0000,1800 [facility] Last Admin: 09/26/19 23:19 Dose: 20 mg Budesonide (Pulmicort 0.5 Mg Nebulizer -) 1 amp NEB RBID [facility] Last Admin: 09/26/19 20:30 Dose: 1 amp Carbamazepine (Carbamazepine) 280 mg PO BID [facility] Last Admin: 09/27/19 09:38 Dose: 280 mg Clonazepam (Klonopin -) 1 mg GT TID [facility] Last Admin: 09/27/19 05:22 Dose: 1 mg Famotidine (Pepcid) 20 mg PEG BID [facility] Last Admin: 09/27/19 09:39 Dose: 20 mg IV Flush (Triple Lumen Flush) 4 ml IVPUSH PRN PRN PRN Reason: Protocol Last Admin: 09/24/19 09:51 Dose: 4 ml IV Flush (Triple Lumen Flush) 4 ml IVPUSH PRN PRN PRN Reason: Protocol Last Admin: 09/24/19 09:51 Dose: 4 ml Piperacillin Sod/Tazobactam (Sod 3.375 gm/ Dextrose) 50 mls @ 100 mls/hr IVPB Q8H-IV [facility]ANDR; Protocol Last Admin: 09/27/19 09:36 Dose: 100 mls/hr Levetiracetam (Keppra Oral Solution -) 1,500 mg GT BID [facility] Last Admin: 09/27/19 09:38 Dose: 1,500 mg Tamsulosin HCl (Flomax -) 0.4 mg PO 0830 [facility] Last Admin: 09/27/19 09:36 Dose: 0.4 mg Home Medications Medication Instructions Recorded Cholecalciferol (Vitamin D3) 2,000 unit GT DAILY 03/17/18 [Vitamin D3] Omeprazole Magnesium [Prilosec] 20 mg GT DAILY 03/17/18 clonazePAM [KlonoPIN -] 1 mg GT TID 03/17/18 Budesonide [Pulmicort 0.5 mg 1 neb NEB BID 07/12/18 Nebulizer -] Diazepam [Diastat Acudial] 20 mg RC PRN PRN 07/12/18 Ipratropium/Albuterol Sulfate 3 ml IH QID PRN 07/12/18 [Iprat-Albut 0.5-3(2.5) mg/3 ml] levETIRAcetam [Keppra Oral 1,500 mg GT BID cup 10/06/18 Solution -] Baclofen 20 mg GT BID@1800,0000 03/08/19 Apixaban [Eliquis] 5 mg GT BID 05/14/19 Tamsulosin HCl [Flomax] 0.4 mg GT DAILY 05/21/19 Baclofen 10 mg GT BID@0500,1200 08/19/19 Carbamazepine Oral Suspension 280 mg PO BID 09/22/19 [Tegretol Oral Suspension -] Mupirocin Ointment [Bactroban 2% 1 unit TP QID 09/26/19 Ointment -] Nystatin Ointment [Mycostatin 1 unit TP TID 09/26/19 Ointment -] Triamcinolone 0.1% Cream 1 unit TP BID 09/26/19 [Aristocort 0.1% Cream -] Microbiology 09/22/19 09:26 Blood - Peripheral Venous Blood Culture - Final NO GROWTH AFTER 5 DAYS INCUBATION 09/22/19 09:20 Blood - Peripheral Venous Blood Culture - Final NO GROWTH AFTER 5 DAYS INCUBATION 09/24/19 12:00 Sputum - Oropharynx Suctioned Sputum Gram Stain - Final 09/24/19 12:00 Sputum - Oropharynx Suctioned Sputum Sputum Culture - Final NORMAL RESPIRATORY SHAQ 09/23/19 18:40 Nares - Mrsa Screen - Right MRSA Screen - Final NO MRSA ISOLATED 09/23/19 18:40 Nares - Mrsa Screen - Left MRSA Screen - Final NO MRSA ISOLATED 09/22/19 16:55 Urine - Urine - Catheterized Legionella Antigen - Final 09/22/19 16:55 Urine - Urine - Catheterized Streptococcus pneumoniae Antigen (M - Final 09/22/19 09:26 Urine - Urine - Catheterized Urine Culture - Final NO GROWTH OBTAINED ASSESSMENT/PLAN: 29 y/o M w/ PMH of CP w/ spastic quadriparesis, microcephaly, recurrent PNAs, seizures, asthma, scoliosis, and dysphagia presents with fever and cough admitted for sepsis 2/2 to influenza Sepsis 2/2 influenza Influenza A+ Hx of MDR + SCx. Zosyn D5, Tamiflu D4 Isolation precaution Wean off oxygen Can cnsider d/c back to [facility] #Hypokalemia Potassium repleted, will trend labs #Seizure Disorder (Epilepsy) #Asthma c/w home medications #Hx of DVT Right LE (03/15/19) Eliquis 5 mg BID #FEN Jevity rate 25, goal 40 monitor electrolytes, replete as needed #DVT Ppx. on eliquis 5 BID Dispo: cont to monitor in ICU, cont Abx, complete tamiflu course Visit type - Emergency Visit Emergency Visit: Yes ED Registration Date: 09/22/19 Care time: The patient presented to the Emergency Department on the above date and was hospitalized for further evaluation of their emergent condition. - New Patient This patient is new to me today: Yes Date on this admission: 09/28/19 - Critical Care Critical Care patient: No - Discharge Referral Referred to [facility] Med P.C.: No ATTENDING PHYSICIAN STATEMENT I saw and evaluated the patient. I reviewed the resident's note and discussed the case with the resident. I agree with the resident's findings and plan as documented. SUBJECTIVE: OBJECTIVE: ASSESSMENT AND PLAN:
[2019-09-27 06:47] LABS: ALBUMIN 2.6 g/dl (3.4-5.0); BILIRUBIN,TOTAL 0.3 mg/dL (0.2-1); CALCIUM 8.5 mg/dL (8.5-10.1); CREATININE 0.3 mg/dL (0.55-1.3); POTASSIUM 3.8 mmol/L (3.5-5.1)
[2019-09-27] MEDS: BUDESONIDE 0.5 MG/2 ML INH SUSP VIAL NEB SCH ×2 (08:15→20:30)
[2019-09-27] MEDS: ALBUTEROL SO4 2.5/IPRATROPIUM 0.5 INH SOL 3 ML VIAL.NEB. NEB SCH ×4 (08:15→20:30)
[2019-09-27] MEDS ORDERED: PIPERACILLIN/TAZOBACTAM 3.375 GM VIAL IVPB ONE ×2 (09:32→17:20)
[2019-09-27] MEDS ORDERED: DEXTROSE 5%-WATER - 50 ML IVPB ONE ×2 (09:32→17:20)
[2019-09-27] MEDS ORDERED: PT OWN MED DRAWER 7, Y5N ONE ×3 (09:32→21:40)
[2019-09-27] MEDS: TAMSULOSIN HCL 0.4 MG CAP PO SCH (09:36)
[2019-09-27] MEDS: OSELTAMIVIR PHOSPHATE 75 MG CAPSULE GT SCH (09:36)
[2019-09-27] MEDS: APIXABAN 5 MG TABLET PEG SCH ×2 (09:36→22:23)
[2019-09-27] MEDS: carBAMazepine 100 MG/5 ML UNIT-DOSE CUP PO SCH ×2 (09:38→22:23)
[2019-09-27] MEDS: levETIRAcetam 500 MG/5 ML ORAL SOLUTION (UNIT-DOSE CUPS) GT SCH ×2 (09:38→22:23)
[2019-09-27] MEDS: FAMOTIDINE 40 MG/5 ML ORAL SUSPENSION PEG SCH ×2 (09:39→22:23)
--- NOTE | 2019-09-27 12:08 | PN ---
Progress Note (short form) - Note Progress Note: NAD on NC O2. No acute events overnight. Intake & Output 09/24/19 09/25/19 09/26/19 09/27/19 23:59 23:59 23:59 23:59 Intake Total 5550 3610 2360 900 Output Total 1000 600 Balance 4550 3010 2360 900 Last Vital Signs Temp Pulse Resp BP Pulse Ox 99.9 F H 79 20 137/83 98 09/27/19 05:39 09/27/19 05:39 09/27/19 05:39 09/27/19 05:39 09/26/19 22:00 Active Medications Acetaminophen (Tylenol Oral Solution -) 650 mg GT Q6H PRN PRN Reason: FEVER Last Admin: 09/24/19 02:58 Dose: 650 mg Albuterol/Ipratropium (Duoneb -) 1 amp NEB RQID [facility] Last Admin: 09/27/19 08:15 Dose: 1 amp Apixaban (Eliquis -) 5 mg PEG BID [facility] Last Admin: 09/27/19 09:36 Dose: 5 mg Baclofen (Lioresal -) 10 mg GT BID@0500,1200 [facility] Last Admin: 09/27/19 05:22 Dose: 10 mg Baclofen (Lioresal -) 20 mg GT BID@0000,1800 [facility] Last Admin: 09/26/19 23:19 Dose: 20 mg Budesonide (Pulmicort 0.5 Mg Nebulizer -) 1 amp NEB RBID [facility] Last Admin: 09/26/19 20:30 Dose: 1 amp Carbamazepine (Carbamazepine) 280 mg PO BID [facility] Last Admin: 09/27/19 09:38 Dose: 280 mg Clonazepam (Klonopin -) 1 mg GT TID [facility] Last Admin: 09/27/19 05:22 Dose: 1 mg Famotidine (Pepcid) 20 mg PEG BID [facility] Last Admin: 09/27/19 09:39 Dose: 20 mg IV Flush (Triple Lumen Flush) 4 ml IVPUSH PRN PRN PRN Reason: Protocol Last Admin: 09/24/19 09:51 Dose: 4 ml IV Flush (Triple Lumen Flush) 4 ml IVPUSH PRN PRN PRN Reason: Protocol Last Admin: 09/24/19 09:51 Dose: 4 ml Piperacillin Sod/Tazobactam (Sod 3.375 gm/ Dextrose) 50 mls @ 100 mls/hr IVPB Q8H-IV [facility]; Protocol Last Admin: 09/27/19 09:36 Dose: 100 mls/hr Levetiracetam (Keppra Oral Solution -) 1,500 mg GT BID [facility] Last Admin: 09/27/19 09:38 Dose: 1,500 mg Tamsulosin HCl (Flomax -) 0.4 mg PO 0830 [facility] Last Admin: 09/27/19 09:36 Dose: 0.4 mg PE: Gen:non verbal, contracted, NAD HEENT: microceph, EOMI, reactive PULM:scattered rhonchi CV: S1S2 ABD:PEG CDI, +BS EXT: contracted, trace edema NEURO: withdrawals bilaterally Laboratory Results - last 24 hr 09/27/19 09/27/19 05:20 06:00 WBC 4.9 RBC 4.08 Hgb 11.3 L Hct 33.7 L MCV 82.5 MCH 27.7 MCHC 33.5 RDW 15.8 Plt Count 392 D MPV 6.9 L Sodium 138 Potassium 3.8 Chloride 101 Carbon Dioxide 27 Anion Gap 9 BUN 5.0 L Creatinine 0.3 L Est GFR (CKD-EPI)AfAm 210.85 Est GFR (CKD-EPI)NonAf 181.93 Random Glucose 84 Calcium 8.5 Total Bilirubin 0.3 AST 15 ALT 50 Alkaline Phosphatase 107 Total Protein 7.0 Albumin 2.6 L IMP: Influenza A RUL PNA by CT imaging ABX coverage per ID Complete Tamiflu Supplemental O2 as needed to maintain saturation Aspiration precautions VTE prophylaxis BD TX Dr Trevizo
--- NOTE | 2019-09-27 12:10 | PN ---
Progress Note (short form) - Note Progress Note: clinically comfortable on NC congested cough-suctioning clear saliva Vital Signs Period Temp Pulse Resp BP Sys/Don Pulse Ox Last 24 Hr 98.7 F-99.9 F 79-102 18-22 103-137/55-83 98-98 cor-rrr lungs scattered rhonchi abd soft,nt ext no edema CBC, BMP 09/27/19 05:20 09/27/19 06:00 Microbiology 09/22/19 09:26 Blood - Peripheral Venous Blood Culture - Final NO GROWTH AFTER 5 DAYS INCUBATION 09/22/19 09:20 Blood - Peripheral Venous Blood Culture - Final NO GROWTH AFTER 5 DAYS INCUBATION 09/24/19 12:00 Sputum - Oropharynx Suctioned Sputum Gram Stain - Final 09/24/19 12:00 Sputum - Oropharynx Suctioned Sputum Sputum Culture - Final NORMAL RESPIRATORY ED 09/23/19 18:40 Nares - Mrsa Screen - Right MRSA Screen - Final NO MRSA ISOLATED 09/23/19 18:40 Nares - Mrsa Screen - Left MRSA Screen - Final NO MRSA ISOLATED 09/22/19 16:55 Urine - Urine - Catheterized Legionella Antigen - Final 09/22/19 16:55 Urine - Urine - Catheterized Streptococcus pneumoniae Antigen (M - Final 09/22/19 09:26 Urine - Urine - Catheterized Urine Culture - Final NO GROWTH OBTAINED plan influenza A history of CRE-recent cultures normal ed severe developmental delays- CP/MR chest ct no contrast r/o pneumonia- ?developing RUL infiltrate-day # 5 antibiotics-can switch to augmentin via GT to complete 7 days tamiflu completed STRICT CONTACT ISOLATION -Dedicated equipment DROPLET isolation for influenza
--- NOTE | 2019-09-27 12:30 | PN ---
Teaching Attending Note Name of Resident: iWlbert Vicente ATTENDING PHYSICIAN STATEMENT I saw and evaluated the patient. I reviewed the resident's note and discussed the case with the resident. I agree with the resident's findings and plan as documented. SUBJECTIVE: Non-verbal, unable to participate in medical interview. OBJECTIVE: Afebrile, Hemodynamically Stable. Comfortable on 2L O2 via NC Last Vital Signs Temp Pulse Resp BP Pulse Ox 99.9 F H 79 20 137/83 98 09/27/19 05:39 09/27/19 05:39 09/27/19 05:39 09/27/19 05:39 09/26/19 22:00 HEENT - Microcephaly. Heart - S1, S2, RRR Lungs - good air entry bilaterally, harsh Breath Sounds R MZ. R SC line - site clean. Abdomen - Soft, PEG in-situ (site clean), Bowel Sounds normal. Extremities - contractures, wasting. No edema. Laboratory Results - last 24 hr 09/27/19 09/27/19 05:20 06:00 WBC 4.9 RBC 4.08 Hgb 11.3 L Hct 33.7 L MCV 82.5 MCH 27.7 MCHC 33.5 RDW 15.8 Plt Count 392 D MPV 6.9 L Sodium 138 Potassium 3.8 Chloride 101 Carbon Dioxide 27 Anion Gap 9 BUN 5.0 L Creatinine 0.3 L Est GFR (CKD-EPI)AfAm 210.85 Est GFR (CKD-EPI)NonAf 181.93 Random Glucose 84 Calcium 8.5 Total Bilirubin 0.3 AST 15 ALT 50 Alkaline Phosphatase 107 Total Protein 7.0 Albumin 2.6 L Current Medications Generic Name Dose Route Start Last Admin Trade Name Mercedez PRN Reason Stop Dose Admin Acetaminophen 650 mg 09/22/19 14:19 09/24/19 02:58 Tylenol Oral Solution - GT 650 mg Q6H PRN Administration FEVER Albuterol/Ipratropium 1 amp 09/22/19 16:00 09/27/19 08:15 Duoneb - NEB 1 amp RQID ALEKSANDR Administration Apixaban 5 mg 09/22/19 22:00 09/27/19 09:36 Eliquis - PEG 5 mg BID ALEKSANDR Administration Baclofen 10 mg 09/23/19 05:00 09/27/19 05:22 Lioresal - GT 10 mg BID@0500,1200 ALEKSANDR Administration Baclofen 20 mg 09/23/19 18:00 09/26/19 23:19 Lioresal - GT 20 mg BID@0000,1800 ALEKSANDR Administration Budesonide 1 amp 09/23/19 08:00 09/26/19 20:30 Pulmicort 0.5 Mg Nebulizer - NEB 1 amp RBID ALEKSANDR Administration Carbamazepine 280 mg 09/22/19 22:00 09/27/19 09:38 Carbamazepine PO 280 mg BID ALEKSANDR Administration Clonazepam 1 mg 09/22/19 14:00 09/27/19 05:22 Klonopin - GT 1 mg TID ALEKSANDR Administration Famotidine 20 mg 09/22/19 22:00 09/27/19 09:39 Pepcid PEG 20 mg BID ALEKSANDR Administration IV Flush 4 ml 09/23/19 14:09 09/24/19 09:51 Triple Lumen Flush IVPUSH 4 ml PRN PRN Administration Protocol IV Flush 4 ml 09/23/19 15:07 09/24/19 09:51 Triple Lumen Flush IVPUSH 4 ml PRN PRN Administration Protocol Piperacillin Sod/Tazobactam 50 mls @ 100 mls/hr 09/23/19 10:30 09/27/19 09:36 Sod 3.375 gm/ Dextrose IVPB 100 mls/hr Q8H-IV ALEKSANDR Administration Protocol Levetiracetam 1,500 mg 09/22/19 22:00 09/27/19 09:38 Keppra Oral Solution - GT 1,500 mg BID ALEKSANDR Administration Tamsulosin HCl 0.4 mg 09/23/19 08:30 09/27/19 09:36 Flomax - PO 0.4 mg 0830 ALEKSANDR Administration Home Medications Medication Instructions Recorded Cholecalciferol (Vitamin D3) 2,000 unit GT DAILY 03/17/18 [Vitamin D3] Omeprazole Magnesium [Prilosec] 20 mg GT DAILY 03/17/18 clonazePAM [KlonoPIN -] 1 mg GT TID 03/17/18 Budesonide [Pulmicort 0.5 mg 1 neb NEB BID 07/12/18 Nebulizer -] Diazepam [Diastat Acudial] 20 mg RC PRN PRN 07/12/18 Ipratropium/Albuterol Sulfate 3 ml IH QID PRN 07/12/18 [Iprat-Albut 0.5-3(2.5) mg/3 ml] levETIRAcetam [Keppra Oral 1,500 mg GT BID cup 10/06/18 Solution -] Baclofen 20 mg GT BID@1800,0000 03/08/19 Apixaban [Eliquis] 5 mg GT BID 05/14/19 Tamsulosin HCl [Flomax] 0.4 mg GT DAILY 05/21/19 Baclofen 10 mg GT BID@0500,1200 08/19/19 Carbamazepine Oral Suspension 280 mg PO BID 09/22/19 [Tegretol Oral Suspension -] Mupirocin Ointment [Bactroban 2% 1 unit TP QID 09/26/19 Ointment -] Nystatin Ointment [Mycostatin 1 unit TP TID 09/26/19 Ointment -] Triamcinolone 0.1% Cream 1 unit TP BID 09/26/19 [Aristocort 0.1% Cream -] ASSESSMENT AND PLAN: 29 year old male [facility], History of CP w/ spastic/functional quadriplegia, Microcephaly, Asthma, recurrent PNA, Seizure Disorder, Scoliosis, and Dysphagia s/p PEG, presented with fever and cough, admitted for sepsis 2/2 to influenza A and Pneumonia. 1. Sepsis secondary to Influenza A with Pneumonia CT Chest - consolidation RUL, atelectasis at bases. ?superimposed bacterial infection Completed 5 days Tamiflu and Zosyn - can switch to Augmentin on discharge to complete total 7 days as per ID. 2. Seizure Disorder - continue Carbamazepine, Keppra, Clonazepam, Diazepam PRN. 3. 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 4. 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 DVT Px - on Eliquis
[2019-09-28] MEDS: BACLOFEN 10 MG TABLET (FP) GT SCH ×3 (00:38→11:38)
[2019-09-28] MEDS ORDERED: PIPERACILLIN/TAZOBACTAM 3.375 GM VIAL IVPB ONE ×2 (00:52→09:21)
[2019-09-28] MEDS ORDERED: DEXTROSE 5%-WATER - 50 ML IVPB ONE ×2 (00:53→09:22)
[2019-09-28] MEDS: PIPERACILLIN/TAZOB 3.375 GM 3.375 GM in DEXTROSE 5%-WATER - 50 ML IVPB SCH ×2 (01:30→09:28)
[2019-09-28] MEDS ORDERED: PT OWN MED DRAWER 7, Y5N ONE ×4 (06:06→09:36)
[2019-09-28] MEDS: clonazePAM 2 MG TABLET GT SCH ×2 (06:20→14:55)
[2019-09-28 06:50] LABS: HEMATOCRIT 32.9 % (35.4-49); MCH 27.7 pg (25.7-33.7); MCHC 33.5 g/dl (32.0-35.9); MEAN CELL VOLUME 82.7 fl (80-96); MEAN PLT VOLUME 6.8 fl (7.5-11.1); PLATELET COUNT 378 K/MM3 (134-434); RBC 3.98 M/mm3 (4.00-5.60); RDW 15.8 % (11.9-15.9); WHITE BLOOD COUNT 4.8 K/mm3 (4.0-10.0)
[2019-09-28 07:11] LABS: ALBUMIN 2.6 g/dl (3.4-5.0); BILIRUBIN,TOTAL 0.2 mg/dL (0.2-1); BLOOD UREA NITROGEN 6.9 mg/dL (7-18); CALCIUM 8.3 mg/dL (8.5-10.1); CREATININE 0.3 mg/dL (0.55-1.3); POTASSIUM 3.6 mmol/L (3.5-5.1); TOT PROT 6.9 g/dl (6.4-8.2)
[2019-09-28] MEDS: ALBUTEROL SO4 2.5/IPRATROPIUM 0.5 INH SOL 3 ML VIAL.NEB. NEB SCH ×3 (09:00→16:37)
[2019-09-28] MEDS: TAMSULOSIN HCL 0.4 MG CAP PO SCH (09:29)
[2019-09-28] MEDS: APIXABAN 5 MG TABLET PEG SCH (09:29)
[2019-09-28] MEDS: carBAMazepine 100 MG/5 ML UNIT-DOSE CUP PO SCH (09:38)
[2019-09-28] MEDS: FAMOTIDINE 40 MG/5 ML ORAL SUSPENSION PEG SCH (09:38)
[2019-09-28] MEDS: levETIRAcetam 500 MG/5 ML ORAL SOLUTION (UNIT-DOSE CUPS) GT SCH (09:39)
[2019-09-28] MEDS: BUDESONIDE 0.5 MG/2 ML INH SUSP VIAL NEB SCH (09:39)
--- NOTE | 2019-09-28 11:49 | PN ---
Teaching Attending Note Name of Resident: Wilbert Vicente ATTENDING PHYSICIAN STATEMENT I saw and evaluated the patient. I reviewed the resident's note and discussed the case with the resident. I agree with the resident's findings and plan as documented. SUBJECTIVE: Non-verbal, unable to participate in medical interview. OBJECTIVE: Afebrile, Hemodynamically Stable. Comfortable on RA. Last Vital Signs Temp Pulse Resp BP Pulse Ox 97.7 F 94 H 19 132/84 97 09/28/19 09:50 09/28/19 09:50 09/28/19 09:50 09/28/19 09:50 09/27/19 20:42 HEENT - Microcephaly. Heart - S1, S2, RRR Lungs - good air entry bilaterally, R SC line - site clean. Abdomen - Soft, PEG in-situ (site clean), Bowel Sounds normal. Extremities - contractures, wasting LEs. No edema. Laboratory Results - last 24 hr 09/22/19 09/28/19 09/28/19 15:30 05:30 05:30 WBC 4.8 RBC 3.98 L Hgb 11.0 L Hct 32.9 L MCV 82.7 MCH 27.7 MCHC 33.5 RDW 15.8 Plt Count 378 MPV 6.8 L Sodium 136 Potassium 3.6 Chloride 100 Carbon Dioxide 28 Anion Gap 8 BUN 6.9 L Creatinine 0.3 L Est GFR (CKD-EPI)AfAm 210.85 Est GFR (CKD-EPI)NonAf 181.93 Random Glucose 100 Calcium 8.3 L Total Bilirubin 0.2 AST 16 ALT 41 Alkaline Phosphatase 95 Total Protein 6.9 Albumin 2.6 L Adenovirus (PCR) Negative Human Metapneumovir PCR Negative Influenza A (H1) PCR Positive H Influenza B (RT-PCR) Negative Parainfluenza 1 (PCR) Negative Parainfluenza 2 (PCR) Negative Parainfluenza 3 (PCR) Negative RSV Type A (PCR) Negative RSV Type B (PCR) Negative Rhinovirus (PCR) Negative Current Medications Generic Name Dose Route Start Last Admin Trade Name Freq PRN Reason Stop Dose Admin Acetaminophen 650 mg 09/22/19 14:19 09/24/19 02:58 Tylenol Oral Solution - GT 650 mg Q6H PRN Administration FEVER Albuterol/Ipratropium 1 amp 09/22/19 16:00 09/28/19 09:00 Duoneb - NEB 1 amp RQID ALEKSANDR Administration Apixaban 5 mg 09/22/19 22:00 09/28/19 09:29 Eliquis - PEG 5 mg BID ALEKSANDR Administration Baclofen 10 mg 09/23/19 05:00 09/28/19 11:38 Lioresal - GT 10 mg BID@0500,1200 ALEKSANDR Administration Baclofen 20 mg 09/23/19 18:00 09/28/19 00:38 Lioresal - GT 20 mg BID@0000,1800 ALEKSANDR Administration Budesonide 1 amp 09/23/19 08:00 09/28/19 09:39 Pulmicort 0.5 Mg Nebulizer - NEB 1 amp RBID ALEKSANDR Administration Carbamazepine 280 mg 09/22/19 22:00 09/28/19 09:38 Carbamazepine PO 280 mg BID ALEKSANDR Administration Clonazepam 1 mg 09/22/19 14:00 09/28/19 06:20 Klonopin - GT 1 mg TID ALEKSANDR Administration Famotidine 20 mg 09/22/19 22:00 09/28/19 09:38 Pepcid PEG 20 mg BID ALEKSANDR Administration IV Flush 4 ml 09/23/19 14:09 09/24/19 09:51 Triple Lumen Flush IVPUSH 4 ml PRN PRN Administration Protocol IV Flush 4 ml 09/23/19 15:07 09/24/19 09:51 Triple Lumen Flush IVPUSH 4 ml PRN PRN Administration Protocol Piperacillin Sod/Tazobactam 50 mls @ 100 mls/hr 09/23/19 10:30 09/28/19 09:28 Sod 3.375 gm/ Dextrose IVPB 100 mls/hr Q8H-IV ALEKSANDR Administration Protocol Levetiracetam 1,500 mg 09/22/19 22:00 09/28/19 09:39 Keppra Oral Solution - GT 1,500 mg BID ALEKSANDR Administration Tamsulosin HCl 0.4 mg 09/23/19 08:30 09/28/19 09:29 Flomax - PO 0.4 mg 0830 ALEKSANDR Administration Home Medications Medication Instructions Recorded Cholecalciferol (Vitamin D3) 2,000 unit GT DAILY 03/17/18 [Vitamin D3] Omeprazole Magnesium [Prilosec] 20 mg GT DAILY 03/17/18 clonazePAM [KlonoPIN -] 1 mg GT TID 03/17/18 Budesonide [Pulmicort 0.5 mg 1 neb NEB BID 07/12/18 Nebulizer -] Diazepam [Diastat Acudial] 20 mg RC PRN PRN 07/12/18 Ipratropium/Albuterol Sulfate 3 ml IH QID PRN 07/12/18 [Iprat-Albut 0.5-3(2.5) mg/3 ml] levETIRAcetam [Keppra Oral 1,500 mg GT BID cup 10/06/18 Solution -] Baclofen 20 mg GT BID@1800,0000 03/08/19 Apixaban [Eliquis] 5 mg GT BID 05/14/19 Tamsulosin HCl [Flomax] 0.4 mg GT DAILY 05/21/19 Baclofen 10 mg GT BID@0500,1200 08/19/19 Carbamazepine Oral Suspension 280 mg PO BID 09/22/19 [Tegretol Oral Suspension -] Mupirocin Ointment [Bactroban 2% 1 unit TP QID 09/26/19 Ointment -] Nystatin Ointment [Mycostatin 1 unit TP TID 09/26/19 Ointment -] Triamcinolone 0.1% Cream 1 unit TP BID 09/26/19 [Aristocort 0.1% Cream -] ASSESSMENT AND PLAN: 29 year old male [place] resident, History of CP w/ spastic/functional quadriplegia, Microcephaly, Asthma, recurrent PNA, Seizure Disorder, Scoliosis, and Dysphagia s/p PEG, presented with fever and cough, admitted for sepsis 2/2 to influenza A and Pneumonia. 1. Sepsis secondary to Influenza A with Pneumonia - resolved. CT Chest - consolidation RUL, atelectasis at bases. likely superimposed bacterial infection Completed 5 days Tamiflu and 7 days Zosyn. No need for further abx therapy. Medically optimized for transfer to [place]. Discussed with Dr. Mayorga. 2. Seizure Disorder - continue Carbamazepine, Keppra, Clonazepam, Diazepam PRN. 3. 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 4. 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
--- NOTE | 2019-09-28 12:20 | DS ---
Physical Exam: SUBJECTIVE: Patient seen and examined Patient seen and examined. No overnight events noted. Pt at baseline. Breathing improved. Afebrile and asymptomatic. No f/c/n/v/d OBJECTIVE: Vital Signs Period Temp Pulse Resp BP Sys/Don Pulse Ox Last 24 Hr 97.7 F-98.9 F 78-102 18-28 120-143/72-86 97-98 PHYSICAL EXAM GENERAL: non-verbal, contracted, mild resp distress, monitoring in ICU EYES: Microceph, PERRL, extraocular movements intact. No ptosis. ENT: moist mucous membranes. NECK: Trachea midline, full range of motion, supple. Right subclavian central line LUNGS: Breath sounds improved b/l. HEART: Tachycardic, normal S1, S2 without murmur, rub or gallop. ABDOMEN: PEG CDI, +BS, NT, nondistended, normoactive bowel sounds, no guarding, no rebound, no hepatosplenomegaly, no masses. EXTREMITIES: contracted, trace edema NEUROLOGICAL: withdrawals bilaterally, unable to assess rest of neuro exam LABS Laboratory Results - last 24 hr 09/22/19 09/28/19 09/28/19 15:30 05:30 05:30 WBC 4.8 RBC 3.98 L Hgb 11.0 L Hct 32.9 L MCV 82.7 MCH 27.7 MCHC 33.5 RDW 15.8 Plt Count 378 MPV 6.8 L Sodium 136 Potassium 3.6 Chloride 100 Carbon Dioxide 28 Anion Gap 8 BUN 6.9 L Creatinine 0.3 L Est GFR (CKD-EPI)AfAm 210.85 Est GFR (CKD-EPI)NonAf 181.93 Random Glucose 100 Calcium 8.3 L Total Bilirubin 0.2 AST 16 ALT 41 Alkaline Phosphatase 95 Total Protein 6.9 Albumin 2.6 L Adenovirus (PCR) Negative Human Metapneumovir PCR Negative Influenza A (H1) PCR Positive H Influenza B (RT-PCR) Negative Parainfluenza 1 (PCR) Negative Parainfluenza 2 (PCR) Negative Parainfluenza 3 (PCR) Negative RSV Type A (PCR) Negative RSV Type B (PCR) Negative Rhinovirus (PCR) Negative HOSPITAL COURSE: Date of Admission:09/22/19 29 y/o M w/ PMH of CP w/ spastic quadriparesis, microcephaly, recurrent PNAs, seizures, asthma, scoliosis, and dysphagia presents with fever and cough admitted for sepsis 2/2 to influenza Flu+ and possible pneumonia seen on CAT scan. Pt had history of MDR + SCx s they started empirically with Clindamycin and Levaquin at this admission as pt was treated during the last admission which was later switched to zosyn, vancomycin, Levaquin and Tamiflu. Once pt improved, Levaquin and vanc were d/gerry and pt was continued on zosyn and tamiflu. Sputum Cx and nares were negative for MRSA. We continued pt's Eliquis on discharge, which was started for DVT hx during February 2019 admission. After improvement, tamiflu x5d was stopped and pt was discharged on Augmentin 875/125 PO for two more days. Influenza positive ECG w/ sinus tachycardia; HR 149; QTc 400; right axis deviation; abn ecg CXR: limited, no clear signs of infiltrates but marked scoliosis therefore cannot r/o PNA CT chest: RUL patchy consolidation- concerning for PNA. B/l atelectasis Date of Discharge: 09/28/19 Minutes to complete discharge: 40 Discharge Summary Problems reviewed: Yes Reason For Visit: INFLUENZA DUE TO INFLUENZA VIRUS,PROFOUND DEVELOP. Current Active Problems Functional quadriplegia (Chronic) Condition: Improved - Instructions Diet, Activity, Other Instructions: You were admitted to the hospital for difficulty breathing and the flu. While you were in the hospital, we evaluated you with lab work, blood work, imaging including a CAT scan of your Chest. We treated you with medications and your symptoms improved. The CT scan was concerning for a pneumonia and we treated you with antibiotics. To complete the treatment of your Pneumonia please take: Augmentin 875mg/125mg twice daily for two more days starting tomorrow through the G-tube. Please continue taking all your medications as prescribed Please follow up with the Program Specialist, Dr. Roth within 1-2 weeks Please follow up with the infectious disease specialist, Dr. Aburto within 1 -2 weeks Please follow up with your primary care physician within 1 week Return to the emergency room, if you experience worsening of your symptoms, chest pains, abdominal pain or worsening of any of your conditions. Referrals: Hollie Velasquez MD [Staff Physician] - 1 Week Bernardo Mayorga Jr [Primary Care Provider] - 1 Week Inocente Trevizo MD [Staff Physician] - 1 Week Disposition: [facility] - Home Medications Comprehensive Discharge Medication List: Ambulatory Orders Cholecalciferol (Vitamin D3) [Vitamin D3] 2,000 unit GT DAILY 03/17/18 Omeprazole Magnesium [Prilosec] 20 mg GT DAILY 03/17/18 clonazePAM [KlonoPIN -] 1 mg GT TID 03/17/18 Budesonide [Pulmicort 0.5 mg Nebulizer -] 1 neb NEB BID 07/12/18 Diazepam [Diastat Acudial] 20 mg RC PRN PRN 07/12/18 Ipratropium/Albuterol Sulfate [Iprat-Albut 0.5-3(2.5) mg/3 ml] 3 ml IH QID PRN 07/12/18 levETIRAcetam [Keppra Oral Solution -] 1,500 mg GT BID cup 10/06/18 Baclofen 20 mg GT BID@1800,0000 03/08/19 Apixaban [Eliquis] 5 mg GT BID 05/14/19 Tamsulosin HCl [Flomax] 0.4 mg GT DAILY 05/21/19 Baclofen 10 mg GT BID@0500,1200 08/19/19 Carbamazepine Oral Suspension [Tegretol 100mg/5mL Oral Suspension -] 280 mg PO BID 09/22/19 Mupirocin Ointment [Bactroban 2% Ointment -] 1 unit TP QID 09/26/19 Nystatin Ointment [Mycostatin Ointment -] 1 unit TP TID 09/26/19 Triamcinolone 0.1% Cream [Aristocort 0.1% Cream -] 1 unit TP BID 09/26/19 Amox-Tr/K Cl [Augmentin - 875Mg Tablet] 1 tab PO BID #4 tablet 09/28/19 This patient is new to me today: Yes Date on this admission: 09/28/19 Emergency Visit: Yes ED Registration Date: 09/22/19 Care time: The patient presented to the Emergency Department on the above date and was hospitalized for further evaluation of their emergent condition. Critical Care patient: No - Discharge Referral Referred to [facility] No ATTENDING PHYSICIAN STATEMENT I saw and evaluated the patient. I reviewed the resident's note and discussed the case with the resident. I agree with the resident's findings and plan as documented. SUBJECTIVE: OBJECTIVE: ASSESSMENT AND PLAN:
[2019-09-28 13:47] VITALS: PULSE 92; TEMP 97.9
[2019-09-28 13:53] VITALS: BP 130/74
== END 2019-09-28 17:34 | DRG 720 ==
LOC: JER 09:04 → J2W 10:52
PROVIDERS: ADMIT Internal Medicine
PROC: 05H533Z Insertion of Infusion Device into Right Subclavian Vein, Percutaneous Approach (ICD-10-PCS; principal; 2019-09-23)
PROC: B516ZZA Fluoroscopy of Right Subclavian Vein, Guidance (ICD-10-PCS; 2019-09-23)
DX: A41.89 Other specified sepsis (principal); E87.1 Hypo-osmolality and hyponatremia; J98.11 Atelectasis; G40.909 Epilepsy, unspecified, not intractable, without status epilepticus; E87.2 Acidosis; R53.2 Functional quadriplegia; J11.00 Influenza due to unidentified influenza virus with unspecified type of pneumonia; F72 Severe intellectual disabilities; R13.10 Dysphagia, unspecified; G80.9 Cerebral palsy, unspecified; D64.9 Anemia, unspecified; D68.8 Other specified coagulation defects; R41.89 Other symptoms and signs involving cognitive functions and awareness; Q02 Microcephaly; R00.0 Tachycardia, unspecified; R50.9 Fever, unspecified; J45.909 Unspecified asthma, uncomplicated; M41.9 Scoliosis, unspecified; E87.6 Hypokalemia; Z93.1 Gastrostomy status
CPT/HCPCS: 36415; 71045-TC-FY; 71250-TC; 80048; 80053; 81003; 82550; 82553; 82803; 83605; 83735; 83880; 83930; 83935; 84100; 84300; 84484; 85025; 85027; 85610; 85730; 87040; 87070; 87081; 87086; 87205; 87633; 87804; 87899; 93005; 93010; 94640; 99285-25; G0480; J0131; J0475

== ENCOUNTER 2019-11-08 09:54 | Emergency (ER) | payer OTHER ==
[2019-11-08] MEDS ORDERED: ALBUTEROL SO4 2.5/IPRATROPIUM 0.5 INH SOL 3 ML VIAL.NEB. NEB ONE (10:32)
--- NOTE | 2019-11-08 10:41 | PDOC ---
History of Present Illness - General Stated Complaint: RESPITORY DISTRESS Time Seen by Provider: 11/08/19 10:28 History Source: [facility] Records Exam Limitations: Clinical Condition - History of Present Illness Initial Comments: 11/08/19 10:36 Patient is a 29M with history of cerebral palsy with spastic quadriparesis, microcephaly, seizures, asthma here today for respiratory distress. [facility] records indicate patient was retracting and tachypneic with heart rate in 130s. Given duoneb at 9am. O2 was 82% on room air. Patient was suctioned upon arrival to ED, O2 sats at 100% on room air afterwards. Patient is unable to give any history. Aide denies any outbreaks at facility. Past History - Past Medical History Allergies/Adverse Reactions: Allergies Allergy/AdvReac Type Severity Reaction Status Date / Time Beef Containing Products Allergy Unknown Verified 10/13/19 13:27 erythromycin base Allergy Verified 10/13/19 13:27 phenobarbital Allergy Verified 10/13/19 13:27 venom-honey bee Allergy Verified 10/13/19 13:27 [bee venom (honey bee)] Home Medications: Ambulatory Orders Cholecalciferol (Vitamin D3) [Vitamin D3] 2,000 unit GT DAILY 03/17/18 Omeprazole Magnesium [Prilosec] 20 mg GT DAILY 03/17/18 clonazePAM [KlonoPIN -] 1 mg GT TID 03/17/18 Budesonide [Pulmicort 0.5 mg Nebulizer -] 1 neb NEB BID 07/12/18 Diazepam [Diastat Acudial] 20 mg RC PRN PRN 07/12/18 Ipratropium/Albuterol Sulfate [Iprat-Albut 0.5-3(2.5) mg/3 ml] 3 ml IH QID PRN 07/12/18 levETIRAcetam [Keppra Oral Solution -] 1,500 mg GT BID cup 10/06/18 Baclofen 20 mg GT BID@1800,0000 03/08/19 Apixaban [Eliquis] 5 mg GT BID 05/14/19 Tamsulosin HCl [Flomax] 0.4 mg GT DAILY 05/21/19 Baclofen 10 mg GT BID@0500,1200 08/19/19 Carbamazepine Oral Suspension [Tegretol 100mg/5mL Oral Suspension -] 280 mg PO BID 09/22/19 Mupirocin Ointment [Bactroban 2% Ointment -] 1 unit TP QID 09/26/19 Nystatin Ointment [Mycostatin Ointment -] 1 unit TP TID 09/26/19 Triamcinolone 0.1% Cream [Aristocort 0.1% Cream -] 1 unit TP BID 09/26/19 Amox-Tr/K Cl [Augmentin - 875Mg Tablet] 1 tab PO BID #4 tablet 09/28/19 Anemia: No Asthma: Yes Cancer: No Cardiac Disorders: No CVA: No COPD: Yes (asthma, aspiration pnuemonia and respiratory distress) CHF: No Dementia: Yes (mental retardation) Diabetes: No GI Disorders: Yes (dysphagia, s/p peg insertion) Disorders: Yes (left testicular torsion, scrotal pain) HTN: No Hypercholesterolemia: No Liver Disease: No Psychiatric Problems: (hyponatremia (due to meds)) Seizures: Yes Thyroid Disease: No - Surgical History Abdominal Surgery: No Appendectomy: No Cardiac Surgery: No Cholecystectomy: No GI Surgery: Yes (G-tube) Lung Surgery: No Neurologic Surgery: Yes (scoliosis w/ mcelroy rods) Orthopedic Surgery: Yes (Left Hip Osteotomy) - Immunization History Td Vaccination: Yes TDAP Vaccination: Yes Immunization Up to Date: Yes - Psycho Social/Smoking Cessation Hx Smoking History: Never smoked Have you smoked in the past 12 months: No Number of Cigarettes Smoked Daily: 0 Cigars Per Day: 0 Hx Alcohol Use: No Drug/Substance Use Hx: No Substance Use Type: None Hx Substance Use Treatment: No Review of Systems - Review of Systems Able to Perform ROS?: No (2/2 pt clinical condition) *Physical Exam - Physical Exam 11/08/19 10:40 GENERAL: Awake, alert, and fully oriented, in no acute distress HEAD: No signs of trauma, normocephalic, atraumatic EYES: sclera anicteric, conjunctiva clear ENT: Auricles normal inspection, hearing grossly normal, nares patent, oropharynx clear without exudates. Moist mucosa NECK: Normal ROM, supple, no lymphadenopathy, JVD, or masses LUNGS: No distress, lower lungs clear with transmitted upper airway sounds, patient spitting HEART: Tachycardic and regular rhythm, normal S1 and S2, no murmurs, rubs or gallops, peripheral pulses normal and equal bilaterally. ABDOMEN: Soft, nontender, normoactive bowel sounds. No guarding, no rebound. No masses EXTREMITIES: Normal inspection, Normal range of motion, no edema. No clubbing or cyanosis. NEUROLOGICAL: Spastic paralysis of extremities, does not follow commands SKIN: Warm, Dry, normal turgor, no rashes or lesions noted. ED Treatment Course - RADIOLOGY Radiology Studies Ordered: Category Date Time Status CXRPORT [CHEST X-RAY PORTABLE*] [RAD] Stat Radiology 11/08/19 10:32 Ordered Medical Decision Making - Medical Decision Making 11/08/19 10:41 Patient is 29M with history of microcephaly, asthma, seizures here today with URI symptoms and congestion. Vitals normalizing after suctioning. Will evaluate for possible pneumonia with CXR, and give duoneb. Likely discharge home. 11/08/19 10:50 EKG shows sinus tachycardia with HR of 117. Right axis deviation. No st elevations/depressions. Unchanged from prior EKG. 11/08/19 11:36 CXR negative. SPO2 remains normal. Will discharge home with return precautions. 11/08/19 12:59 Case d/w Dr Carter, accepted back to [place]. Discharge - Discharge Information Problems reviewed: Yes Clinical Impression/Diagnosis: Viral URI Condition: Good Disposition: HOME - Admission No - Follow up/Referral Referrals: Bernardo Mayorga Jr [Primary Care Provider] - - Patient Discharge Instructions Patient Printed Discharge Instructions: DI for Viral Upper Respiratory Infect ion -- Adult Additional Instructions: Please return Mr Lara if he has any new, worsening or concerning symptoms. His hypoxia resolved after suctioning and his CXR was clear. - Post Discharge Activity
[2019-11-08] MEDS ORDERED: IPRATROPIUM BR 0.02% 0.5 MG/2.5 ML VIAL.NEB. NEB ONE (10:42)
[2019-11-08 10:50] VITALS: PULSE 114; TEMP 99.4; BMI 21.0
[2019-11-08 11:51] VITALS: BP 114/68
--- NOTE | 2019-11-08 12:19 | PDOC ---
Documentation entered by Mitra Haro SCRIBE, acting as scribe for Luis Armando Barr MD. Luis Armando Barr MD: This documentation has been prepared by the Estrellita sharma Xhesika, SCRIBE, under my direction and personally reviewed by me in its entirety. I confirm that the documentation accurately reflects all work, treatment, procedures, and medical decision making performed by me. Attending Attestation - Resident Resident Name: Jules Diaz - ED Attending Attestation I have performed the following: I have examined & evaluated the patient, The case was reviewed & discussed with the resident, I agree w/resident's findings & plan, Exceptions are as noted - HPI HPI: 11/08/19 10:37 The patient is a 29 year old male, with a significant PMH of CP with spastic quadriparesis, microcephaly, mulitple PNAs with sepsis, ME x3, seizures, asthma, scoliosis, Jasmin fundoplication, dysphagia (s/p G-tube placement), hyponatremia, and testicular torsion, who presents to the ED [facility] from [place] for respiratory distress. Pt is unable to provide to history due to clinical condition. Allergies: Beef, erythromycin base, phenobarbital Surgical History: G-tube, scoliosis mcelroy rods, left hip osteotomy PCP: Dr. Mayorga - Physicial Exam PE: 11/08/19 Patient is somnolent, opens his eyes when examined by MD, does not follow commands, is nonverbal; Microcephalic, atraumatic Increased amount of oropharyngeal secretions(suctioned) Lungs are clear to auscultation, upper respiratory sounds and transmitted distally Abdomen is flat, nondistended, G-tube is noted in the left upper quadrant Extremities are contracted - Medical Decision Making 11/08/19 12:18 Patient is a 29-year-old male with microcephaly, severe mental retardation, ex tremity contractions who presents from [facility] for respiratory distress. In the ER, patient suctioned with immediate improvement of his oxygen saturation to 98% room air. Chest x-ray reveals no evidence of infiltrate or effusion; patient is afebrile and mildly tachycardic. No acute issues at present at this time. Will discharge with encouragement for more frequent suctioning.
--- NOTE | 2019-11-09 15:08 | EKG ---
Test Reason : Blood Pressure : / mmHG Vent. Rate : 117 BPM Atrial Rate : 117 BPM P-R Int : 150 ms QRS Dur : 090 ms QT Int : 326 ms P-R-T Axes : 047 125 042 degrees QTc Int : 454 ms SINUS TACHYCARDIA RIGHT AXIS DEVIATION INFERIOR INFARCT (CITED ON OR BEFORE 11-MAR-2019) T WAVE ABNORMALITY, CONSIDER ANTERIOR ISCHEMIA ABNORMAL ECG WHEN COMPARED WITH ECG OF 22-SEP-2019 09:13, NO SIGNIFICANT CHANGE WAS FOUND Confirmed by GIO FISCHER MD ([id number]) on 11/09/2019 3:07:31 PM Referred By: Confirmed By:GIO FISCEHR MD
== END 2019-11-08 16:01 ==
LOC: JER 09:54
PROC: 3E0F7GC Introduction of Other Therapeutic Substance into Respiratory Tract, Via Natural or Artificial Opening (ICD-10-PCS; principal; 2019-11-08)
DX: J06.9 Acute upper respiratory infection, unspecified (principal); B97.89 Other viral agents as the cause of diseases classified elsewhere; J45.909 Unspecified asthma, uncomplicated; Q02 Microcephaly; R56.9 Unspecified convulsions; R09.89 Other specified symptoms and signs involving the circulatory and respiratory systems; G82.50 Quadriplegia, unspecified
CPT/HCPCS: 71045-TC-FY; 93005; 93010; 94640; 99284-25

== ENCOUNTER 2020-07-14 10:23 | Inpatient (IN) | payer OTHER ==
[2020-07-14] MEDS ORDERED: ACETAMINOPHEN 500 MG TABLET (FP) PO ONE (10:43)
[2020-07-14] MEDS ORDERED: ACETAMINOPHEN INJECTION 100 ML IVPB ONE (11:08)
[2020-07-14] MEDS ORDERED: ACETAMINOPHEN 1000 MG/100 ML VIAL (NON FORMULARY) IVPB ONE (11:08)
[2020-07-14] MEDS ORDERED: SODIUM CHLORIDE 1,361 ML IV ONE (11:09)
[2020-07-14 11:18] LABS: BASO % 0.3 % (0-2.0); EOS % 0.1 % (0-4.5); HEMOGLOBIN 16.2 GM/dL (11.7-16.9); LYMPH % 12.1 % (8-40); MCH 29.5 pg (25.7-33.7); MCHC 34.4 g/dl (32.0-35.9); MEAN CELL VOLUME 85.9 fl (80-96); MEAN PLT VOLUME 7.6 fl (7.5-11.1); MONO % 12.9 % (3.8-10.2); NEUT % 74.6 % (42.8-82.8); PLATELET COUNT 274 K/MM3 (134-434); RBC 5.47 M/mm3 (4.00-5.60); RDW 15.1 % (11.9-15.9); WHITE BLOOD COUNT 11.6 K/mm3 (4.0-10.0)
[2020-07-14 11:19] LABS: VENOUS BASE EXCESS 1.6 mmol/L (-2-2); VENOUS PCO2 39.9 mmHg (38-52); VENOUS PH 7.431 (7.310-7.410)
[2020-07-14 11:25] LABS: INR 1.18 (0.83-1.09); PROTHROMBIN TIME (PATIENT) 14.4 SEC (9.7-13.0)
[2020-07-14 11:28] LABS: ACTIVATED PTT 30.4 SECONDS (25.2-36.5)
[2020-07-14 11:34] LABS: PH,URINE 7.5 (5.0-8.0); URINE APPEARANCE CLOUDY; URINE BILIRUBIN NEGATIVE (NEGATIVE); URINE COLOR YELLOW; URINE GLUCOSE (UA) NEGATIVE (NEGATIVE); URINE KETONE NEGATIVE (NEGATIVE); URINE LEUK ESTERASE NEGATIVE (NEGATIVE); URINE NITRITE NEGATIVE (NEGATIVE); URINE PROTEIN NEGATIVE (NEGATIVE); URINE UROBILINOGEN 0.2 mg/dL (0.2-1.0)
[2020-07-14 11:38] LABS: POTASSIUM 4.2 mmol/L (3.5-5.1)
[2020-07-14 11:40] LABS: CALCIUM 9.4 mg/dL (8.5-10.1)
[2020-07-14 11:41] LABS: BLOOD UREA NITROGEN 8.2 mg/dL (7-18)
[2020-07-14 11:44] LABS: CREATININE 0.6 mg/dL (0.55-1.3)
[2020-07-14 11:45] LABS: BILIRUBIN,TOTAL 0.3 mg/dL (0.2-1); TOT PROT 8.6 g/dl (6.4-8.2)
[2020-07-14] MEDS ORDERED: PIPERACILLIN/TAZOB 4.5 GM 4.5 GM in DEXTROSE 5%-WATER 100 ML IVPB ONE (11:53)
[2020-07-14] MEDS ORDERED: VANCOMYCIN 1 GM in D5W (PRE-DOCKED) 1,000 MG/250 ML IVPB ONE (11:54)
[2020-07-14] MEDS ORDERED: GENTAMICIN 80 MG PREMIXED IVPB 80 MG/100 ML BAG IVPB ONE ×2 (11:59→12:44)
[2020-07-14] MEDS ORDERED: LORazepam 2 MG/ML SDV VIAL ONE ×2 (12:13→18:38)
[2020-07-14] MEDS ORDERED: RAPID SEQUENCE INTUBATION KIT NR ONE (12:17)
[2020-07-14] MEDS ORDERED: ETOMIDATE 40 MG/20 ML VIAL IVPUSH ONE (12:33)
[2020-07-14] MEDS ORDERED: ROCURONIUM BROMIDE 50 MG/5 ML VIAL IV ONE (12:33)
[2020-07-14] MEDS ORDERED: PROPOFOL 1,000,000 MCG/100 ML VIAL ONE (12:43)
[2020-07-14] MEDS ORDERED: VANCOMYCIN 1 GRAM (PRE-DOCKED) 1,000 MG/250 ML BAG IVPB ONE (12:44)
[2020-07-14] MEDS: PROPOFOL 1,000,000 MCG/100 ML VIAL IVPB SCH ×2 (12:51→18:39)
[2020-07-14] MEDS ORDERED: FAMOTIDINE 20 MG/50 ML IVPB 20 MG/50 ML MG IVPB ONE ×3 (13:00→22:04)
[2020-07-14 14:31] LABS: ARTERIAL BLD GAS O2 SATURATION 99.6 mmHg (95-98); ARTERIAL BLOOD GAS BASE EXCESS -1.6 mmol/L (-2-2); ARTERIAL BLOOD GAS PO2 246.9 mmHg (80-100)
[2020-07-14 14:33] LABS: ALLENS TEST POSITIVE; VENT MODE AC; VENT RATE 16
[2020-07-14] MEDS ORDERED: MIDAZOLAM HCL 2 MG/2 ML SINGLE DOSE VIAL IVPUSH ONE (15:22)
[2020-07-14] MEDS ORDERED: MIDAZOLAM HCL 2 MG/2 ML SINGLE DOSE VIAL ONE (15:27)
[2020-07-14] MEDS ORDERED: PIPERACILLIN/TAZOB 4.5 GM 4.5 GM in DEXTROSE 5%-WATER 100 ML IVPB SCH (18:30)
[2020-07-14] MEDS ORDERED: levETIRAcetam 500 MG/5 ML INJECTION VIAL IVPB ONE ×3 (18:37→19:17)
[2020-07-14] MEDS ORDERED: PIPERACILLIN/TAZOB 3.375 GM 3.375 GM/50 ML BAG IVPB ONE (19:01)
[2020-07-14] MEDS ORDERED: PIPERACILLIN/TAZOB 4.5 GM 4.5 GM/100 ML BAG IVPB ONE (19:17)
[2020-07-14] MEDS: levETIRAcetam 500 MG/5 ML ORAL SOLUTION (UNIT-DOSE CUPS) PEG SCH (22:00)
[2020-07-14] MEDS ORDERED: HEPARIN NA (PORCINE) 5,000 UNITS/ML 1ML VIAL ONE (22:04)
[2020-07-14] MEDS: HEPARIN NA (PORCINE) 5,000 UNITS/ML 1ML VIAL SQ SCH (22:30)
[2020-07-14] MEDS: FAMOTIDINE 20 MG/50 ML IVPB 20 MG/50 ML MG IVPB SCH (22:30)
[2020-07-14] MEDS: PIPERACILLIN/TAZOB 4.5 GM 4.5 GM in DEXTROSE 5%-WATER 100 ML IVPB SCH (22:57)
[2020-07-15] MEDS ORDERED: PIPERACILLIN/TAZOB 4.5 GM 4.5 GM/100 ML BAG IVPB ONE (01:37)
[2020-07-15] MEDS: PIPERACILLIN/TAZOB 4.5 GM 4.5 GM in DEXTROSE 5%-WATER 100 ML IVPB SCH ×3 (01:49→18:04)
[2020-07-15] MEDS: PROPOFOL 1,000,000 MCG/100 ML VIAL IVPB SCH ×2 (03:47→14:06)
[2020-07-15 07:36] LABS: BASO % 0.5 % (0-2.0); EOS % 1.3 % (0-4.5); HEMATOCRIT 43.2 % (35.4-49); HEMOGLOBIN 14.4 GM/dL (11.7-16.9); LYMPH % 24.7 % (8-40); MCH 28.7 pg (25.7-33.7); MCHC 33.4 g/dl (32.0-35.9); MEAN CELL VOLUME 85.8 fl (80-96); MEAN PLT VOLUME 7.9 fl (7.5-11.1); MONO % 10.5 % (3.8-10.2); PLATELET COUNT 231 K/MM3 (134-434); RBC 5.03 M/mm3 (4.00-5.60); RDW 15.2 % (11.9-15.9); WHITE BLOOD COUNT 8.9 K/mm3 (4.0-10.0)
[2020-07-15 07:53] LABS: POTASSIUM 3.2 mmol/L (3.5-5.1)
[2020-07-15 07:58] LABS: ALBUMIN 3.3 g/dl (3.4-5.0); MAGNESIUM 2.4 mg/dL (1.8-2.4)
[2020-07-15 08:00] LABS: CREATININE 0.4 mg/dL (0.55-1.3); PHOSPHOROUS 3.4 mg/dL (2.5-4.9)
[2020-07-15 08:02] LABS: TOT PROT 7.5 g/dl (6.4-8.2)
[2020-07-15] MEDS ORDERED: POTASSIUM CHLORIDE 20 MEQ PREMIX IVPB 100 ML IVPB ONE (08:32)
[2020-07-15] MEDS ORDERED: PIPERACILLIN/TAZOBACTAM 4.5 GM VIAL IVPB ONE ×2 (09:10→17:36)
[2020-07-15] MEDS ORDERED: DEXTROSE 5%-WATER 100 ML IVPB ONE ×2 (09:10→17:36)
[2020-07-15] MEDS: KCL 10 MEQ IVPB 10 MEQ/100 ML INFUS.BAG IVPB SCH ×4 (09:28→14:05)
[2020-07-15] MEDS: FAMOTIDINE 20 MG/50 ML IVPB 20 MG/50 ML MG IVPB SCH ×2 (09:28→22:15)
[2020-07-15] MEDS: levETIRAcetam 500 MG/5 ML ORAL SOLUTION (UNIT-DOSE CUPS) PEG SCH ×2 (09:28→23:00)
[2020-07-15] MEDS: MUPIROCIN CA 2% TOPICAL CREAM 15 GM TUBE TP SCH ×2 (09:29→22:16)
[2020-07-15] MEDS: HEPARIN NA (PORCINE) 5,000 UNITS/ML 1ML VIAL SQ SCH ×2 (09:30→22:11)
[2020-07-15] MEDS ORDERED: SODIUM ZIRCONIUM CYCLOSILICATE (LOKELMA) 5 GM PACKET PO SCH (10:00)
[2020-07-15] MEDS ORDERED: LORazepam 2 MG/ML SDV VIAL IVPUSH ONE ×2 (18:50→19:32)
[2020-07-15] MEDS ORDERED: LORazepam 2 MG/ML SDV VIAL ONE ×2 (18:53→19:01)
[2020-07-15] MEDS ORDERED: clonazePAM 0.5 MG TABLET GT STA (19:05)
[2020-07-15] MEDS ORDERED: ACETAMINOPHEN 650 MG/20.3 ML ORAL SOLUTION (CUPS) GT ONE (19:12)
[2020-07-15] MEDS ORDERED: clonazePAM 0.5 MG TABLET GT ONE (19:23)
[2020-07-15] MEDS ORDERED: morphine SULFATE 4 MG/ML VIAL IVPUSH ONE (19:26)
[2020-07-15] MEDS ORDERED: POTASSIUM CHLORIDE ORAL LIQUID 20 MEQ/15 ML GT ONE (20:30)
[2020-07-15] MEDS: CHLORHEXIDINE GLUCONATE 4% CLEANSER FOR DECOLONIZATION TP SCH (22:16)
[2020-07-15] MEDS ORDERED: LACTATED RINGERS SOLUTION 1,000 ML/1,000 ML INFUS.BAG IV SCH (22:45)
[2020-07-15] MEDS: APIXABAN 5 MG TABLET GT SCH (23:04)
[2020-07-16] MEDS ORDERED: ACETAMINOPHEN 650 MG/20.3 ML ORAL SOLUTION (CUPS) PO PRN ×2 (01:00→22:56)
[2020-07-16] MEDS ORDERED: DEXTROSE 5%-WATER 100 ML IVPB ONE ×2 (02:10→09:17)
[2020-07-16] MEDS ORDERED: PIPERACILLIN/TAZOBACTAM 4.5 GM VIAL IVPB ONE ×2 (02:10→09:16)
[2020-07-16] MEDS: PIPERACILLIN/TAZOB 4.5 GM 4.5 GM in DEXTROSE 5%-WATER 100 ML IVPB SCH ×2 (02:18→18:13)
[2020-07-16] MEDS: clonazePAM 0.5 MG TABLET GT SCH ×3 (03:04→21:19)
[2020-07-16 06:57] LABS: BASO % 0.4 % (0-2.0); EOS % 1.1 % (0-4.5); HEMATOCRIT 40.9 % (35.4-49); HEMOGLOBIN 13.7 GM/dL (11.7-16.9); LYMPH % 20.2 % (8-40); MCH 29.2 pg (25.7-33.7); MCHC 33.4 g/dl (32.0-35.9); MEAN CELL VOLUME 87.4 fl (80-96); MEAN PLT VOLUME 7.7 fl (7.5-11.1); MONO % 8.6 % (3.8-10.2); NEUT % 69.7 % (42.8-82.8); PLATELET COUNT 186 K/MM3 (134-434); RBC 4.69 M/mm3 (4.00-5.60); RDW 14.9 % (11.9-15.9); WHITE BLOOD COUNT 10.1 K/mm3 (4.0-10.0)
[2020-07-16 07:25] LABS: BILIRUBIN,TOTAL 1.2 mg/dL (0.2-1); BLOOD UREA NITROGEN 4.6 mg/dL (7-18); CALCIUM 7.8 mg/dL (8.5-10.1); CREATININE 0.4 mg/dL (0.55-1.3); PHOSPHOROUS 3.7 mg/dL (2.5-4.9); POTASSIUM 4.1 mmol/L (3.5-5.1); TOT PROT 6.7 g/dl (6.4-8.2)
[2020-07-16] MEDS: FAMOTIDINE 20 MG/50 ML IVPB 20 MG/50 ML MG IVPB SCH ×2 (10:01→21:20)
[2020-07-16] MEDS: levETIRAcetam 500 MG/5 ML ORAL SOLUTION (UNIT-DOSE CUPS) PEG SCH ×2 (10:02→21:20)
[2020-07-16] MEDS ORDERED: ALBUTEROL SO4 2.5/IPRATROPIUM 0.5 INH SOL 3 ML VIAL.NEB. NEB PRN ×2 (10:52→22:56)
[2020-07-16] MEDS: APIXABAN 5 MG TABLET GT SCH ×2 (11:03→21:20)
[2020-07-16] MEDS: MUPIROCIN CA 2% TOPICAL CREAM 15 GM TUBE TP SCH ×2 (11:05→21:20)
[2020-07-16 14:15] VITALS: BMI 22.6
[2020-07-16] MEDS ORDERED: PIPERACILLIN/TAZOBACTAM 3.375 GM VIAL IVPB ONE (17:47)
[2020-07-16] MEDS ORDERED: DEXTROSE 5%-WATER - 50 ML IVPB ONE (17:47)
[2020-07-16] MEDS ORDERED: PIPERACILLIN/TAZOB 3.375 GM 3.375 GM in DEXTROSE 5%-WATER - 50 ML IVPB SCH (18:00)
[2020-07-16] MEDS: KCL 10 MEQ IVPB 10 MEQ/100 ML INFUS.BAG IVPB SCH (21:03)
[2020-07-16] MEDS ORDERED: PT OWN MED DRAWER 7, Y5N ONE (21:16)
[2020-07-16] MEDS: CHLORHEXIDINE GLUCONATE 4% CLEANSER FOR DECOLONIZATION TP SCH (21:20)
[2020-07-16] MEDS ORDERED: LACTATED RINGERS SOLUTION 1,000 ML/1,000 ML INFUS.BAG IV SCH (22:56)
[2020-07-17] MEDS ORDERED: PIPERACILLIN/TAZOBACTAM 3.375 GM VIAL IVPB ONE (00:58)
[2020-07-17] MEDS ORDERED: DEXTROSE 5%-WATER - 50 ML IVPB ONE (00:59)
[2020-07-17] MEDS: PIPERACILLIN/TAZOB 3.375 GM 3.375 GM in DEXTROSE 5%-WATER - 50 ML IVPB SCH ×2 (01:23→10:29)
[2020-07-17] MEDS ORDERED: clonazePAM 0.5 MG TABLET GT SCH (04:00)
[2020-07-17 08:14] LABS: BASO % 0.4 % (0-2.0); EOS % 0.6 % (0-4.5); HEMATOCRIT 38.6 % (35.4-49); HEMOGLOBIN 12.8 GM/dL (11.7-16.9); LYMPH % 9.6 % (8-40); MCH 28.9 pg (25.7-33.7); MCHC 33.3 g/dl (32.0-35.9); MEAN CELL VOLUME 86.9 fl (80-96); MEAN PLT VOLUME 7.7 fl (7.5-11.1); MONO % 6.9 % (3.8-10.2); NEUT % 82.5 % (42.8-82.8); PLATELET COUNT 232 K/MM3 (134-434); RBC 4.44 M/mm3 (4.00-5.60); RDW 15.1 % (11.9-15.9); WHITE BLOOD COUNT 6.2 K/mm3 (4.0-10.0)
[2020-07-17 08:37] LABS: POTASSIUM 3.3 mmol/L (3.5-5.1)
[2020-07-17] MEDS: AMINO ACIDS/PROTEIN HYDROLYS 30 ML LIQUID.PKT PO SCH (08:37)
[2020-07-17 08:50] LABS: CALCIUM 8.2 mg/dL (8.5-10.1)
[2020-07-17 08:51] LABS: ALBUMIN 3.2 g/dl (3.4-5.0); BLOOD UREA NITROGEN 4.3 mg/dL (7-18); MAGNESIUM 2.1 mg/dL (1.8-2.4)
[2020-07-17 08:54] LABS: BILIRUBIN,TOTAL 0.6 mg/dL (0.2-1); CREATININE 0.2 mg/dL (0.55-1.3); PHOSPHOROUS 3.5 mg/dL (2.5-4.9)
[2020-07-17 08:56] LABS: TOT PROT 7.2 g/dl (6.4-8.2)
[2020-07-17] MEDS ORDERED: POTASSIUM CHLORIDE ORAL LIQUID 20 MEQ/15 ML GT ONE (09:07)
[2020-07-17] MEDS ORDERED: levETIRAcetam 500 MG/5 ML ORAL SOLUTION (UNIT-DOSE CUPS) PEG SCH (10:00)
[2020-07-17] MEDS ORDERED: MUPIROCIN CA 2% TOPICAL CREAM 15 GM TUBE TP SCH (10:00)
[2020-07-17] MEDS: FAMOTIDINE 20 MG/50 ML IVPB 20 MG/50 ML MG IVPB SCH ×2 (10:13→10:36)
[2020-07-17] MEDS: APIXABAN 5 MG TABLET GT SCH ×2 (10:38→22:05)
[2020-07-17] MEDS ORDERED: PT OWN MED DRAWER 7, Y5N ONE (12:59)
[2020-07-17] MEDS: FAMOTIDINE 40 MG/5 ML ORAL SUSPENSION PEG SCH ×2 (14:23→22:01)
[2020-07-17] MEDS: AMOX TR/POTASSIUM CLAVULANATE 250 MG/5 ML BOTTLE PO SCH ×2 (15:23→18:52)
[2020-07-17] MEDS ORDERED: ALBUTEROL SO4 2.5/IPRATROPIUM 0.5 INH SOL 3 ML VIAL.NEB. NEB PRN (15:38)
[2020-07-17] MEDS ORDERED: SCOPOLAMINE HYDROBROMIDE 1 PATCH PATCH.TD72 TD SCH (15:45)
[2020-07-17] MEDS ORDERED: PATIENT'S OWN MEDICATION (NON-FORMULARY) (Omeprazole Magnesium [Prilosec] 10 MG Suspdr.Pkt GT SCH (15:45)
[2020-07-17] MEDS: CHOLECALCIFEROL (VIT D SOLUTION) 400 UNIT/1 ML DROPS GT SCH (18:52)
[2020-07-17] MEDS: BACLOFEN 10 MG TABLET (FP) GT SCH (18:52)
[2020-07-17] MEDS: BUDESONIDE 0.5 MG/2 ML INH SUSP VIAL NEB SCH (21:52)
[2020-07-17] MEDS: levETIRAcetam 500 MG/5 ML ORAL SOLUTION (UNIT-DOSE CUPS) GT SCH (22:01)
[2020-07-17] MEDS: clonazePAM 0.25 MG ODT TABLETS GT SCH (22:02)
[2020-07-17] MEDS: CHLORHEXIDINE GLUCONATE 4% CLEANSER FOR DECOLONIZATION TP SCH (22:05)
[2020-07-17] MEDS: carBAMazepine 100 MG/5 ML UNIT-DOSE CUP GT SCH (22:31)
[2020-07-18] MEDS: BACLOFEN 10 MG TABLET (FP) GT SCH ×4 (00:40→17:50)
[2020-07-18] MEDS: clonazePAM 0.25 MG ODT TABLETS GT SCH ×3 (06:14→21:39)
[2020-07-18] MEDS ORDERED: TAMSULOSIN HCL 0.4 MG CAP PO SCH ×2 (08:30)
[2020-07-18] MEDS: AMOX TR/POTASSIUM CLAVULANATE 250 MG/5 ML BOTTLE PO SCH ×3 (08:34→16:53)
[2020-07-18 08:59] LABS: BASO % 0.6 % (0-2.0); EOS % 2.7 % (0-4.5); HEMATOCRIT 41.3 % (35.4-49); HEMOGLOBIN 13.8 GM/dL (11.7-16.9); LYMPH % 28.4 % (8-40); MCH 28.6 pg (25.7-33.7); MCHC 33.3 g/dl (32.0-35.9); MEAN PLT VOLUME 7.7 fl (7.5-11.1); MONO % 10.3 % (3.8-10.2); PLATELET COUNT 264 K/MM3 (134-434); RDW 15.3 % (11.9-15.9); WHITE BLOOD COUNT 5.5 K/mm3 (4.0-10.0)
[2020-07-18] MEDS: BUDESONIDE 0.5 MG/2 ML INH SUSP VIAL NEB SCH ×2 (09:30→21:03)
[2020-07-18 09:35] LABS: CALCIUM 8.8 mg/dL (8.5-10.1)
[2020-07-18 09:37] LABS: BLOOD UREA NITROGEN 8.6 mg/dL (7-18)
[2020-07-18 09:40] LABS: CREATININE 0.4 mg/dL (0.55-1.3)
[2020-07-18] MEDS ORDERED: PT OWN MED DRAWER 7, Y5N ONE ×2 (10:19→22:29)
[2020-07-18] MEDS: levETIRAcetam 500 MG/5 ML ORAL SOLUTION (UNIT-DOSE CUPS) GT SCH ×2 (10:25→21:39)
[2020-07-18] MEDS: carBAMazepine 100 MG/5 ML UNIT-DOSE CUP GT SCH ×2 (10:25→21:40)
[2020-07-18] MEDS: AMINO ACIDS/PROTEIN HYDROLYS 30 ML LIQUID.PKT PO SCH (10:25)
[2020-07-18] MEDS: FAMOTIDINE 40 MG/5 ML ORAL SUSPENSION PEG SCH ×2 (10:26→21:39)
[2020-07-18] MEDS: APIXABAN 5 MG TABLET GT SCH ×2 (10:26→21:39)
[2020-07-18] MEDS: CHOLECALCIFEROL (VIT D SOLUTION) 400 UNIT/1 ML DROPS GT SCH (10:26)
[2020-07-18] MEDS ORDERED: DOXAZOSIN MESYLATE 1 MG TABLET PO SCH (19:30)
[2020-07-18] MEDS: DOXAZOSIN MESYLATE 1 MG TABLET GT SCH (21:43)
[2020-07-18] MEDS: CHLORHEXIDINE GLUCONATE 4% CLEANSER FOR DECOLONIZATION TP SCH (22:00)
[2020-07-19] MEDS: BACLOFEN 10 MG TABLET (FP) GT SCH ×3 (01:48→12:49)
[2020-07-19] MEDS: clonazePAM 0.25 MG ODT TABLETS GT SCH ×2 (06:34→13:46)
[2020-07-19] MEDS: BUDESONIDE 0.5 MG/2 ML INH SUSP VIAL NEB SCH (08:20)
[2020-07-19] MEDS ORDERED: PT OWN MED DRAWER 7, Y5N ONE (09:21)
[2020-07-19] MEDS: levETIRAcetam 500 MG/5 ML ORAL SOLUTION (UNIT-DOSE CUPS) GT SCH (09:27)
[2020-07-19] MEDS: CHOLECALCIFEROL (VIT D SOLUTION) 400 UNIT/1 ML DROPS GT SCH (09:27)
[2020-07-19] MEDS: FAMOTIDINE 40 MG/5 ML ORAL SUSPENSION PEG SCH (09:27)
[2020-07-19] MEDS: carBAMazepine 100 MG/5 ML UNIT-DOSE CUP GT SCH (09:29)
[2020-07-19] MEDS: AMINO ACIDS/PROTEIN HYDROLYS 30 ML LIQUID.PKT PO SCH (09:30)
[2020-07-19] MEDS: DOXAZOSIN MESYLATE 1 MG TABLET GT SCH (09:30)
[2020-07-19] MEDS: AMOX TR/POTASSIUM CLAVULANATE 250 MG/5 ML BOTTLE PO SCH ×3 (09:30→17:21)
[2020-07-19] MEDS: APIXABAN 5 MG TABLET GT SCH (09:30)
[2020-07-19] MEDS ORDERED: POLYETHYLENE GLYCOL 3350 119 GM BTL PO SCH (10:00)
[2020-07-19 13:44] VITALS: BP 113/58; PULSE 120; TEMP 98.4
== END 2020-07-19 17:58 | disposition home or self-care (01) | DRG 137 ==
LOC: JER 10:23 → JERBED 12:39 → JICU 07-15 03:55 → J6S 07-16 23:47
PROVIDERS: ADMIT Internal Medicine Pulmonary Disease
PROC: 3E0G76Z Introduction of Nutritional Substance into Upper GI, Via Natural or Artificial Opening (ICD-10-PCS; 2020-07-14)
PROC: 0BH17EZ Insertion of Endotracheal Airway into Trachea, Via Natural or Artificial Opening (ICD-10-PCS; principal; 2020-07-17)
PROC: 5A1935Z Respiratory Ventilation, Less than 24 Consecutive Hours (ICD-10-PCS; 2020-07-17)
DX: J69.0 Pneumonitis due to inhalation of food and vomit (principal); J96.01 Acute respiratory failure with hypoxia; R53.2 Functional quadriplegia; Q02 Microcephaly; M41.9 Scoliosis, unspecified; Z93.1 Gastrostomy status; R13.10 Dysphagia, unspecified; G80.9 Cerebral palsy, unspecified; G40.909 Epilepsy, unspecified, not intractable, without status epilepticus; Z20.828 Contact with and (suspected) exposure to other viral communicable diseases; E87.6 Hypokalemia; N40.0 Benign prostatic hyperplasia without lower urinary tract symptoms; Z86.718 Personal history of other venous thrombosis and embolism; Z79.01 Long term (current) use of anticoagulants
CPT/HCPCS: 36415; 36600; 71045-TC-FY; 80048; 80053; 81003; 82728; 82803; 83605; 83615; 83735; 84100; 84484; 85025; 85610; 85730; 86140; 87040; 87086; 87804; 87899; 93005; 93010; 94002; 94640; 99285-25; C9803; J0131; J0475; J1644; U0003

== ENCOUNTER 2020-07-20 09:00 | Inpatient (IN) | payer OTHER ==
[2020-07-20] MEDS ORDERED: SODIUM CHLORIDE 1,000 ML IV STA (09:14)
[2020-07-20 09:50] VITALS: BMI 20.9
[2020-07-20 09:52] LABS: BASO % 0.4 % (0-2.0); HEMATOCRIT 40.8 % (35.4-49); HEMOGLOBIN 13.7 GM/dL (11.7-16.9); LYMPH % 29.1 % (8-40); MCH 29.8 pg (25.7-33.7); MCHC 33.7 g/dl (32.0-35.9); MEAN CELL VOLUME 88.4 fl (80-96); MEAN PLT VOLUME 7.4 fl (7.5-11.1); MONO % 11.6 % (3.8-10.2); NEUT % 57.9 % (42.8-82.8); PLATELET COUNT 264 K/MM3 (134-434); RBC 4.61 M/mm3 (4.00-5.60); RDW 15.3 % (11.9-15.9); WHITE BLOOD COUNT 6.9 K/mm3 (4.0-10.0)
[2020-07-20] MEDS ORDERED: AZITHROMYCIN IVPB 500 MG in DEXTROSE 5%-WATER - 250 ML IVPB ONE (09:54)
[2020-07-20] MEDS ORDERED: PIPERACILLIN/TAZOB 4.5 GM 4.5 GM in DEXTROSE 5%-WATER 100 ML IVPB ONE (09:54)
[2020-07-20] MEDS ORDERED: VANCOMYCIN 1 GM PREMIX - 1 GM/200 ML BAG IVPB ONE (09:54)
[2020-07-20 09:57] LABS: INR 1.66 (0.83-1.09); PROTHROMBIN TIME (PATIENT) 20.1 SEC (9.7-13.0)
[2020-07-20 09:59] LABS: ACTIVATED PTT 41.6 SECONDS (25.2-36.5)
[2020-07-20 10:02] LABS: VENOUS BASE EXCESS -1.4 mmol/L (-2-2); VENOUS O2 SATURATION 98.8 % (70-80); VENOUS PCO2 38.4 mmHg (38-52); VENOUS PH 7.396 (7.310-7.410)
[2020-07-20 10:02] LABS: URINE APPEARANCE CLEAR; URINE BILIRUBIN 1+ (NEGATIVE); URINE COLOR DK YELLOW; URINE GLUCOSE (UA) NEGATIVE (NEGATIVE); URINE KETONE TRACE (NEGATIVE); URINE LEUK ESTERASE NEGATIVE (NEGATIVE); URINE NITRITE NEGATIVE (NEGATIVE); URINE PROTEIN TRACE (NEGATIVE)
[2020-07-20] MEDS ORDERED: VANCOMYCIN 1 GRAM (PRE-DOCKED) 1,000 MG/250 ML BAG IVPB ONE (10:04)
[2020-07-20] MEDS ORDERED: AZITHROMYCIN IVPB 500 MG/250 ML BAG IVPB ONE (10:04)
[2020-07-20] MEDS ORDERED: PIPERACILLIN/TAZOB 4.5 GM 4.5 GM/100 ML BAG IVPB ONE (10:04)
[2020-07-20] MEDS ORDERED: SODIUM CHLORIDE 500 ML IV STA (10:39)
[2020-07-20 10:44] LABS: POTASSIUM 3.9 mmol/L (3.5-5.1)
[2020-07-20 10:46] LABS: ALBUMIN 3.4 g/dl (3.4-5.0); BLOOD UREA NITROGEN 18.4 mg/dL (7-18); CALCIUM 8.7 mg/dL (8.5-10.1)
[2020-07-20 10:50] LABS: CREATININE 0.6 mg/dL (0.55-1.3)
[2020-07-20 10:51] LABS: BILIRUBIN,TOTAL 0.3 mg/dL (0.2-1)
[2020-07-20] MEDS ORDERED: LORazepam 2 MG/ML SDV VIAL IVPUSH PRN ×2 (14:25→14:48)
[2020-07-20] MEDS ORDERED: TAMSULOSIN HCL 0.4 MG CAP PO SCH (14:30)
[2020-07-20] MEDS ORDERED: clonazePAM 0.5 MG TABLET GT SCH (14:30)
[2020-07-20] MEDS ORDERED: POLYETHYLENE GLYCOL 3350 119 GM BTL PO SCH (14:30)
[2020-07-20] MEDS ORDERED: clonazePAM 0.5 MG TABLET ONE (14:38)
[2020-07-20] MEDS ORDERED: clonazePAM 0.5 MG TABLET PEG SCH (14:46)
[2020-07-20] MEDS ORDERED: clonazePAM 0.5 MG ODT TABLETS PEG SCH (14:52)
[2020-07-20] MEDS: SODIUM CHLORIDE 1,000 ML IV SCH (15:03)
[2020-07-20] MEDS: INSULIN SLIDING SCALE (NOVOLOG) 1 VIAL SQ SCH (16:33)
[2020-07-20] MEDS ORDERED: PIPERACILLIN/TAZOB 3.375 GM 3.375 GM in DEXTROSE 5%-WATER - 50 ML IVPB SCH (18:00)
[2020-07-20] MEDS ORDERED: PIPERACILLIN/TAZOBACTAM 3.375 GM VIAL IVPB ONE (18:02)
[2020-07-20] MEDS ORDERED: DEXTROSE 5%-WATER - 50 ML IVPB ONE (18:02)
[2020-07-20] MEDS: MUPIROCIN 2% TOPICAL OINTMENT 22 GM TUBE TP SCH (19:00)
[2020-07-20] MEDS ORDERED: VANCOMYCIN 1 GM in D5W (PRE-DOCKED) 1,000 MG/250 ML IVPB SCH (22:00)
[2020-07-20] MEDS ORDERED: PT OWN MED DRAWER 7, Y5N ONE (22:55)
[2020-07-20] MEDS: APIXABAN 5 MG TABLET PEG SCH (23:00)
[2020-07-21] MEDS: levETIRAcetam 500 MG/5 ML ORAL SOLUTION (UNIT-DOSE CUPS) PEG SCH ×3 (01:24→21:25)
[2020-07-21] MEDS: MUPIROCIN 2% TOPICAL OINTMENT 22 GM TUBE TP SCH ×5 (01:24→21:24)
[2020-07-21] MEDS: clonazePAM 0.5 MG TABLET PEG SCH ×4 (01:24→21:29)
[2020-07-21] MEDS: INSULIN SLIDING SCALE (NOVOLOG) 1 VIAL SQ SCH ×5 (01:25→22:28)
[2020-07-21] MEDS: carBAMazepine 200 MG/10 ML UNIT-DOSE CUP PEG SCH ×3 (01:25→21:29)
[2020-07-21 07:18] LABS: HEMOGLOBIN 11.5 GM/dL (11.7-16.9); MCH 29.2 pg (25.7-33.7); MCHC 32.8 g/dl (32.0-35.9); MEAN PLT VOLUME 7.6 fl (7.5-11.1); PLATELET COUNT 227 K/MM3 (134-434); RBC 3.93 M/mm3 (4.00-5.60); RDW 14.5 % (11.9-15.9); WHITE BLOOD COUNT 5.6 K/mm3 (4.0-10.0)
[2020-07-21 07:38] LABS: POTASSIUM 3.5 mmol/L (3.5-5.1)
[2020-07-21 07:45] LABS: ALBUMIN 2.8 g/dl (3.4-5.0); BLOOD UREA NITROGEN 6.6 mg/dL (7-18); CALCIUM 7.6 mg/dL (8.5-10.1); MAGNESIUM 1.9 mg/dL (1.8-2.4)
[2020-07-21 07:48] LABS: CREATININE 0.3 mg/dL (0.55-1.3); PHOSPHOROUS 2.9 mg/dL (2.5-4.9)
[2020-07-21 07:49] LABS: BILIRUBIN,TOTAL 0.4 mg/dL (0.2-1); TOT PROT 6.4 g/dl (6.4-8.2)
[2020-07-21] MEDS: BACLOFEN 10 MG TABLET (FP) PEG SCH ×2 (07:49→12:08)
[2020-07-21] MEDS ORDERED: ENOXAPARIN NA (PORCINE) 40 MG/0.4 ML DISP.SYRIN SQ SCH (10:00)
[2020-07-21] MEDS ORDERED: CHOLECALCIFEROL (VIT D3) 1,000 UNIT (25 MCG) TABLET NR SCH (10:00)
[2020-07-21] MEDS ORDERED: CEFTRIAXONE 2 GM in DEXTROSE 5%-WATER 2 GM/100 ML BAG IVPB SCH (10:00)
[2020-07-21] MEDS ORDERED: DEXTROSE 5%-WATER 100 ML IVPB ONE (10:34)
[2020-07-21] MEDS: APIXABAN 5 MG TABLET PEG SCH ×2 (10:45→21:25)
[2020-07-21] MEDS: DOXAZOSIN MESYLATE 2 MG TABLET PEG SCH (10:47)
[2020-07-21] MEDS: SODIUM CHLORIDE 1,000 ML IV SCH ×2 (10:48→14:32)
[2020-07-21] MEDS: PANTOPRAZOLE SODIUM 40 MG VIAL IVPUSH SCH (10:48)
[2020-07-21] MEDS: POLYETHYLENE GLYCOL 3350 119 GM BTL PEG SCH (10:49)
[2020-07-21] MEDS ORDERED: PIPERACILLIN/TAZOBACTAM 2.25 GM VIAL IVPB ONE ×2 (12:05→16:41)
[2020-07-21] MEDS ORDERED: DEXTROSE 5%-WATER - 50 ML IVPB ONE ×2 (12:05→16:41)
[2020-07-21] MEDS: PIPERACILLIN/TAZOB 2.25 GM 2.25 GM in DEXTROSE 5%-WATER - 50 ML IVPB SCH ×2 (12:08→17:07)
[2020-07-21] MEDS ORDERED: ALBUTEROL SO4 2.5/IPRATROPIUM 0.5 INH SOL 3 ML VIAL.NEB. NEB PRN (13:55)
[2020-07-21] MEDS: SCOPOLAMINE HYDROBROMIDE 1 PATCH PATCH.TD72 TD SCH (14:25)
[2020-07-21] MEDS ORDERED: PIPERACILLIN/TAZOB 3.375 GM 3.375 GM in DEXTROSE 5%-WATER - 50 ML IVPB SCH (18:00)
[2020-07-21] MEDS ORDERED: PT OWN MED DRAWER 7, Y5N ONE (20:07)
[2020-07-21] MEDS: BUDESONIDE 0.5 MG/2 ML INH SUSP VIAL NEB SCH (20:09)
[2020-07-22] MEDS ORDERED: PIPERACILLIN/TAZOBACTAM 2.25 GM VIAL IVPB ONE ×3 (00:49→17:19)
[2020-07-22] MEDS ORDERED: DEXTROSE 5%-WATER - 50 ML IVPB ONE ×3 (00:49→17:19)
[2020-07-22] MEDS: PIPERACILLIN/TAZOB 2.25 GM 2.25 GM in DEXTROSE 5%-WATER - 50 ML IVPB SCH ×3 (01:03→17:16)
[2020-07-22] MEDS: BACLOFEN 10 MG TABLET (FP) PEG SCH ×2 (05:40→13:28)
[2020-07-22] MEDS: INSULIN SLIDING SCALE (NOVOLOG) 1 VIAL SQ SCH ×4 (06:11→22:08)
[2020-07-22] MEDS: clonazePAM 0.5 MG TABLET PEG SCH ×3 (06:11→22:03)
[2020-07-22 07:34] LABS: BASO % 0.5 % (0-2.0); EOS % 3.9 % (0-4.5); HEMATOCRIT 38.2 % (35.4-49); HEMOGLOBIN 12.4 GM/dL (11.7-16.9); LYMPH % 39.9 % (8-40); MCH 28.8 pg (25.7-33.7); MCHC 32.4 g/dl (32.0-35.9); MEAN CELL VOLUME 88.7 fl (80-96); MEAN PLT VOLUME 7.8 fl (7.5-11.1); MONO % 9.6 % (3.8-10.2); NEUT % 46.1 % (42.8-82.8); PLATELET COUNT 250 K/MM3 (134-434); RDW 14.7 % (11.9-15.9); WHITE BLOOD COUNT 5.7 K/mm3 (4.0-10.0)
[2020-07-22 08:01] LABS: POTASSIUM 3.4 mmol/L (3.5-5.1)
[2020-07-22 08:07] LABS: CALCIUM 8.6 mg/dL (8.5-10.1)
[2020-07-22 08:10] LABS: CREATININE 0.3 mg/dL (0.55-1.3)
[2020-07-22 08:17] LABS: BLOOD UREA NITROGEN 2.8 mg/dL (7-18)
[2020-07-22] MEDS: BUDESONIDE 0.5 MG/2 ML INH SUSP VIAL NEB SCH ×2 (08:37→20:30)
[2020-07-22] MEDS ORDERED: POTASSIUM CHLORIDE ORAL LIQUID 20 MEQ/15 ML PO ONE (08:50)
[2020-07-22] MEDS ORDERED: POTASSIUM CHLORIDE ORAL LIQUID 20 MEQ/15 ML GT ONE (08:50)
[2020-07-22] MEDS ORDERED: FAMOTIDINE 40 MG/5 ML ORAL SUSPENSION PEG SCH (10:00)
[2020-07-22] MEDS: MUPIROCIN 2% TOPICAL OINTMENT 22 GM TUBE TP SCH ×4 (10:06→22:08)
[2020-07-22] MEDS: levETIRAcetam 500 MG/5 ML ORAL SOLUTION (UNIT-DOSE CUPS) PEG SCH ×2 (10:08→22:03)
[2020-07-22] MEDS: CHOLECALCIFEROL (VIT D SOLUTION) 400 UNIT/1 ML DROPS PEG SCH (10:09)
[2020-07-22] MEDS: DOXAZOSIN MESYLATE 2 MG TABLET PEG SCH (10:10)
[2020-07-22] MEDS: POLYETHYLENE GLYCOL 3350 119 GM BTL PEG SCH (10:10)
[2020-07-22] MEDS: APIXABAN 5 MG TABLET PEG SCH ×2 (10:10→22:03)
[2020-07-22] MEDS: carBAMazepine 200 MG/10 ML UNIT-DOSE CUP PEG SCH ×2 (10:10→22:03)
[2020-07-22] MEDS: PANTOPRAZOLE SODIUM 40 MG VIAL IVPUSH SCH (10:12)
[2020-07-22] MEDS ORDERED: PT OWN MED DRAWER 7, Y5N ONE ×3 (10:16→21:34)
[2020-07-22] MEDS: SODIUM CHLORIDE 1,000 ML IV SCH (15:06)
[2020-07-23] MEDS ORDERED: DEXTROSE 5%-WATER - 50 ML IVPB ONE ×3 (00:58→14:49)
[2020-07-23] MEDS ORDERED: PIPERACILLIN/TAZOBACTAM 2.25 GM VIAL IVPB ONE ×3 (00:58→14:48)
[2020-07-23] MEDS: PIPERACILLIN/TAZOB 2.25 GM 2.25 GM in DEXTROSE 5%-WATER - 50 ML IVPB SCH ×3 (01:54→17:45)
[2020-07-23] MEDS: clonazePAM 0.5 MG TABLET PEG SCH ×3 (05:48→21:53)
[2020-07-23] MEDS: BACLOFEN 10 MG TABLET (FP) PEG SCH ×2 (05:48→13:36)
[2020-07-23] MEDS: INSULIN SLIDING SCALE (NOVOLOG) 1 VIAL SQ SCH ×4 (06:02→22:19)
[2020-07-23] MEDS ORDERED: PT OWN MED DRAWER 7, Y5N ONE ×7 (08:33→21:11)
[2020-07-23] MEDS: BUDESONIDE 0.5 MG/2 ML INH SUSP VIAL NEB SCH ×2 (08:45→20:45)
[2020-07-23] MEDS: MUPIROCIN 2% TOPICAL OINTMENT 22 GM TUBE TP SCH ×4 (09:16→22:19)
[2020-07-23] MEDS: FAMOTIDINE 40 MG/5 ML ORAL SUSPENSION PEG SCH ×2 (09:17→21:53)
[2020-07-23] MEDS: AMINO ACIDS/PROTEIN HYDROLYS 30 ML LIQUID.PKT PEG SCH (09:17)
[2020-07-23] MEDS: carBAMazepine 200 MG/10 ML UNIT-DOSE CUP PEG SCH ×2 (09:17→21:53)
[2020-07-23] MEDS: POLYETHYLENE GLYCOL 3350 119 GM BTL PEG SCH (09:18)
[2020-07-23] MEDS: APIXABAN 5 MG TABLET PEG SCH ×2 (09:19→21:53)
[2020-07-23] MEDS: CHOLECALCIFEROL (VIT D SOLUTION) 400 UNIT/1 ML DROPS PEG SCH (09:20)
[2020-07-23] MEDS: DOXAZOSIN MESYLATE 2 MG TABLET PEG SCH (09:23)
[2020-07-23] MEDS: levETIRAcetam 500 MG/5 ML ORAL SOLUTION (UNIT-DOSE CUPS) PEG SCH ×2 (09:45→21:53)
[2020-07-23] MEDS ORDERED: PANTOPRAZOLE SOD 40 MG SUSPENSION PACKET PO SCH (10:00)
[2020-07-23] MEDS: SODIUM CHLORIDE 1,000 ML IV SCH (14:36)
[2020-07-24] MEDS ORDERED: PIPERACILLIN/TAZOBACTAM 2.25 GM VIAL IVPB ONE ×2 (01:01→09:41)
[2020-07-24] MEDS ORDERED: DEXTROSE 5%-WATER - 50 ML IVPB ONE ×2 (01:01→09:41)
[2020-07-24] MEDS: PIPERACILLIN/TAZOB 2.25 GM 2.25 GM in DEXTROSE 5%-WATER - 50 ML IVPB SCH ×2 (01:26→11:43)
[2020-07-24] MEDS: BACLOFEN 10 MG TABLET (FP) PEG SCH ×2 (05:51→11:43)
[2020-07-24] MEDS: clonazePAM 0.5 MG TABLET PEG SCH ×3 (05:51→21:33)
[2020-07-24] MEDS: INSULIN SLIDING SCALE (NOVOLOG) 1 VIAL SQ SCH ×4 (06:07→21:55)
[2020-07-24 07:41] LABS: POTASSIUM 3.1 mmol/L (3.5-5.1)
[2020-07-24 07:57] LABS: CALCIUM 8.2 mg/dL (8.5-10.1)
[2020-07-24 07:58] LABS: BLOOD UREA NITROGEN 3.3 mg/dL (7-18)
[2020-07-24] MEDS: BUDESONIDE 0.5 MG/2 ML INH SUSP VIAL NEB SCH ×2 (08:00→20:30)
[2020-07-24 08:01] LABS: CREATININE 0.3 mg/dL (0.55-1.3)
[2020-07-24 08:13] LABS: BASO % 0.5 % (0-2.0); EOS % 3.4 % (0-4.5); HEMATOCRIT 38.7 % (35.4-49); HEMOGLOBIN 12.8 GM/dL (11.7-16.9); LYMPH % 31.5 % (8-40); MCH 29.3 pg (25.7-33.7); MCHC 33.1 g/dl (32.0-35.9); MEAN CELL VOLUME 88.6 fl (80-96); MEAN PLT VOLUME 7.9 fl (7.5-11.1); MONO % 10.9 % (3.8-10.2); NEUT % 53.7 % (42.8-82.8); PLATELET COUNT 253 K/MM3 (134-434); RBC 4.36 M/mm3 (4.00-5.60); WHITE BLOOD COUNT 6.4 K/mm3 (4.0-10.0)
[2020-07-24] MEDS ORDERED: PT OWN MED DRAWER 7, Y5N ONE ×3 (09:40→11:20)
[2020-07-24] MEDS ORDERED: ALBUTEROL SO4 2.5/IPRATROPIUM 0.5 INH SOL 3 ML VIAL.NEB. NEB ONE (10:02)
[2020-07-24] MEDS: APIXABAN 5 MG TABLET PEG SCH ×2 (11:42→21:33)
[2020-07-24] MEDS: MUPIROCIN 2% TOPICAL OINTMENT 22 GM TUBE TP SCH ×4 (11:42→21:39)
[2020-07-24] MEDS: levETIRAcetam 500 MG/5 ML ORAL SOLUTION (UNIT-DOSE CUPS) PEG SCH ×2 (11:42→21:32)
[2020-07-24] MEDS: POLYETHYLENE GLYCOL 3350 119 GM BTL PEG SCH (11:42)
[2020-07-24] MEDS: DOXAZOSIN MESYLATE 2 MG TABLET PEG SCH (11:42)
[2020-07-24] MEDS: FAMOTIDINE 40 MG/5 ML ORAL SUSPENSION PEG SCH ×2 (11:43→21:45)
[2020-07-24] MEDS: CHOLECALCIFEROL (VIT D SOLUTION) 400 UNIT/1 ML DROPS PEG SCH (11:43)
[2020-07-24] MEDS: carBAMazepine 200 MG/10 ML UNIT-DOSE CUP PEG SCH ×2 (11:43→21:45)
[2020-07-24] MEDS: AMINO ACIDS/PROTEIN HYDROLYS 30 ML LIQUID.PKT PEG SCH (11:43)
[2020-07-24] MEDS: SCOPOLAMINE HYDROBROMIDE 1 PATCH PATCH.TD72 TD SCH (11:43)
[2020-07-24] MEDS ORDERED: ALBUTEROL SO4 2.5/IPRATROPIUM 0.5 INH SOL 3 ML VIAL.NEB. NEB PRN (13:37)
[2020-07-24] MEDS: KCL 10 MEQ IVPB 10 MEQ/100 ML INFUS.BAG IVPB SCH ×2 (14:05→15:47)
[2020-07-24] MEDS: POTASSIUM CHLORIDE ORAL LIQUID 20 MEQ/15 ML PO SCH (21:32)
[2020-07-24] MEDS: CEFUROXIME AXETIL 250 MG TABLET NGT SCH (22:30)
[2020-07-25] MEDS ORDERED: ACETAMINOPHEN 650 MG/20.3 ML ORAL SOLUTION (CUPS) PO ONE (04:51)
[2020-07-25] MEDS: BACLOFEN 10 MG TABLET (FP) PEG SCH ×2 (05:06→12:50)
[2020-07-25] MEDS: clonazePAM 0.5 MG TABLET PEG SCH ×3 (05:06→22:31)
[2020-07-25] MEDS: INSULIN SLIDING SCALE (NOVOLOG) 1 VIAL SQ SCH ×4 (06:16→21:26)
[2020-07-25 07:01] LABS: BASO % 0.6 % (0-2.0); EOS % 0.2 % (0-4.5); HEMATOCRIT 43.4 % (35.4-49); HEMOGLOBIN 14.3 GM/dL (11.7-16.9); LYMPH % 12.8 % (8-40); MCHC 32.9 g/dl (32.0-35.9); MEAN CELL VOLUME 88.3 fl (80-96); MEAN PLT VOLUME 7.7 fl (7.5-11.1); NEUT % 75.4 % (42.8-82.8); PLATELET COUNT 326 K/MM3 (134-434); RBC 4.92 M/mm3 (4.00-5.60); RDW 15.1 % (11.9-15.9); WHITE BLOOD COUNT 9.6 K/mm3 (4.0-10.0)
[2020-07-25 07:10] LABS: POTASSIUM 4.2 mmol/L (3.5-5.1)
[2020-07-25 07:13] LABS: CALCIUM 9.2 mg/dL (8.5-10.1)
[2020-07-25 07:14] LABS: BLOOD UREA NITROGEN 6.3 mg/dL (7-18)
[2020-07-25 07:17] LABS: CREATININE 0.5 mg/dL (0.55-1.3)
[2020-07-25 07:22] LABS: N-TERMINAL BNP 135.3 pg/ml (5-125)
[2020-07-25] MEDS: BUDESONIDE 0.5 MG/2 ML INH SUSP VIAL NEB SCH ×2 (07:25→20:15)
[2020-07-25] MEDS ORDERED: PT OWN MED DRAWER 7, Y5N ONE ×2 (10:46→22:22)
[2020-07-25] MEDS: POTASSIUM CHLORIDE ORAL LIQUID 20 MEQ/15 ML PO SCH (10:50)
[2020-07-25] MEDS: levETIRAcetam 500 MG/5 ML ORAL SOLUTION (UNIT-DOSE CUPS) PEG SCH ×2 (10:51→22:27)
[2020-07-25] MEDS: APIXABAN 5 MG TABLET PEG SCH ×2 (10:52→22:31)
[2020-07-25] MEDS: AMINO ACIDS/PROTEIN HYDROLYS 30 ML LIQUID.PKT PEG SCH (10:52)
[2020-07-25] MEDS: MUPIROCIN 2% TOPICAL OINTMENT 22 GM TUBE TP SCH ×4 (10:53→22:09)
[2020-07-25] MEDS: CHOLECALCIFEROL (VIT D SOLUTION) 400 UNIT/1 ML DROPS PEG SCH (10:53)
[2020-07-25] MEDS: carBAMazepine 200 MG/10 ML UNIT-DOSE CUP PEG SCH ×2 (10:54→22:33)
[2020-07-25] MEDS: DOXAZOSIN MESYLATE 2 MG TABLET PEG SCH (10:55)
[2020-07-25] MEDS: CEFUROXIME AXETIL 250 MG TABLET NGT SCH ×2 (10:55→22:31)
[2020-07-25] MEDS: FAMOTIDINE 40 MG/5 ML ORAL SUSPENSION PEG SCH ×2 (10:55→22:31)
[2020-07-25] MEDS: POLYETHYLENE GLYCOL 3350 119 GM BTL PEG SCH (10:58)
[2020-07-26] MEDS: BACLOFEN 10 MG TABLET (FP) PEG SCH ×2 (04:44→13:00)
[2020-07-26] MEDS: clonazePAM 0.5 MG TABLET PEG SCH ×3 (06:46→23:10)
[2020-07-26] MEDS: INSULIN SLIDING SCALE (NOVOLOG) 1 VIAL SQ SCH ×4 (07:08→21:39)
[2020-07-26] MEDS: BUDESONIDE 0.5 MG/2 ML INH SUSP VIAL NEB SCH ×2 (08:40→20:12)
[2020-07-26] MEDS ORDERED: PT OWN MED DRAWER 7, Y5N ONE ×3 (12:55→23:08)
[2020-07-26] MEDS: AMINO ACIDS/PROTEIN HYDROLYS 30 ML LIQUID.PKT PEG SCH (13:00)
[2020-07-26] MEDS: APIXABAN 5 MG TABLET PEG SCH ×2 (13:00→23:10)
[2020-07-26] MEDS: MUPIROCIN 2% TOPICAL OINTMENT 22 GM TUBE TP SCH ×3 (13:00→21:40)
[2020-07-26] MEDS: carBAMazepine 200 MG/10 ML UNIT-DOSE CUP PEG SCH ×2 (13:00→23:11)
[2020-07-26] MEDS: DOXAZOSIN MESYLATE 2 MG TABLET PEG SCH (13:01)
[2020-07-26] MEDS: CEFUROXIME AXETIL 250 MG TABLET NGT SCH (13:01)
[2020-07-26] MEDS: POLYETHYLENE GLYCOL 3350 119 GM BTL PEG SCH (13:03)
[2020-07-26] MEDS: FAMOTIDINE 40 MG/5 ML ORAL SUSPENSION PEG SCH ×2 (13:04→23:11)
[2020-07-26] MEDS: CHOLECALCIFEROL (VIT D SOLUTION) 400 UNIT/1 ML DROPS PEG SCH (13:04)
[2020-07-26] MEDS: levETIRAcetam 500 MG/5 ML ORAL SOLUTION (UNIT-DOSE CUPS) PEG SCH ×2 (13:13→23:10)
[2020-07-27 05:43] VITALS: BP 131/66; PULSE 108; TEMP 98.3
[2020-07-27] MEDS: BACLOFEN 10 MG TABLET (FP) PEG SCH (06:10)
[2020-07-27] MEDS: INSULIN SLIDING SCALE (NOVOLOG) 1 VIAL SQ SCH ×2 (06:18→11:51)
[2020-07-27] MEDS: clonazePAM 0.5 MG TABLET PEG SCH (06:58)
[2020-07-27] MEDS: BUDESONIDE 0.5 MG/2 ML INH SUSP VIAL NEB SCH (08:00)
[2020-07-27] MEDS: APIXABAN 5 MG TABLET PEG SCH (09:19)
[2020-07-27] MEDS: MUPIROCIN 2% TOPICAL OINTMENT 22 GM TUBE TP SCH (09:19)
[2020-07-27] MEDS: DOXAZOSIN MESYLATE 2 MG TABLET PEG SCH (09:20)
[2020-07-27] MEDS: AMINO ACIDS/PROTEIN HYDROLYS 30 ML LIQUID.PKT PEG SCH (09:20)
[2020-07-27] MEDS: CHOLECALCIFEROL (VIT D SOLUTION) 400 UNIT/1 ML DROPS PEG SCH (09:20)
[2020-07-27] MEDS: levETIRAcetam 500 MG/5 ML ORAL SOLUTION (UNIT-DOSE CUPS) PEG SCH (09:32)
[2020-07-27] MEDS: carBAMazepine 200 MG/10 ML UNIT-DOSE CUP PEG SCH (09:32)
[2020-07-27] MEDS: POLYETHYLENE GLYCOL 3350 119 GM BTL PEG SCH (09:32)
[2020-07-27] MEDS: FAMOTIDINE 40 MG/5 ML ORAL SUSPENSION PEG SCH (09:32)
[2020-07-27] MEDS ORDERED: METOPROLOL TARTRATE 25 MG TABLET (FP) PEG SCH (10:00)
[2020-07-27] MEDS ORDERED: SCOPOLAMINE HYDROBROMIDE 1 PATCH PATCH.TD72 TD SCH (10:00)
[2020-07-27 11:18] LABS: BASO % 0.4 % (0-2.0); EOS % 1.2 % (0-4.5); HEMATOCRIT 42.7 % (35.4-49); HEMOGLOBIN 14.2 GM/dL (11.7-16.9); LYMPH % 14.4 % (8-40); MCH 29.7 pg (25.7-33.7); MCHC 33.2 g/dl (32.0-35.9); MEAN CELL VOLUME 89.2 fl (80-96); MEAN PLT VOLUME 7.6 fl (7.5-11.1); MONO % 7.8 % (3.8-10.2); NEUT % 76.2 % (42.8-82.8); PLATELET COUNT 318 K/MM3 (134-434); RBC 4.78 M/mm3 (4.00-5.60); RDW 15.5 % (11.9-15.9); WHITE BLOOD COUNT 9.3 K/mm3 (4.0-10.0)
[2020-07-27 11:40] LABS: POTASSIUM 3.9 mmol/L (3.5-5.1)
[2020-07-27 11:42] LABS: CALCIUM 8.4 mg/dL (8.5-10.1)
[2020-07-27 11:46] LABS: CREATININE 0.5 mg/dL (0.55-1.3)
== END 2020-07-27 15:47 | disposition home or self-care (01) | DRG 133 ==
LOC: JER 09:00 → JERBED 12:05 → J4W 17:57 → J6S 07-24 14:28
PROVIDERS: ADMIT Internal Medicine; ATTEND Student in an Organized Health Care Education/Training Program
PROC: 3E0H76Z Introduction of Nutritional Substance into Lower GI, Via Natural or Artificial Opening (ICD-10-PCS; principal; 2020-07-20)
DX: J96.01 Acute respiratory failure with hypoxia (principal); G80.9 Cerebral palsy, unspecified; G40.909 Epilepsy, unspecified, not intractable, without status epilepticus; R53.2 Functional quadriplegia; J84.9 Interstitial pulmonary disease, unspecified; N40.0 Benign prostatic hyperplasia without lower urinary tract symptoms; G31.84 Mild cognitive impairment of uncertain or unknown etiology; R00.0 Tachycardia, unspecified
CPT/HCPCS: 36415; 71045-TC-FY; 80048; 80053; 81003; 82550; 82553; 82803; 82962; 83605; 83735; 83880; 84100; 84484; 85025; 85027; 85610; 85730; 86850; 86900; 86901; 87040; 87045; 87046; 87086; 87177; 87209; 87324; 87449; 87804; 93005; 93010; 94640; 99285-25; C9803; J0475; U0003

== ENCOUNTER 2020-10-22 12:15 | Inpatient (IN) | payer OTHER ==
[2020-10-22 12:54] VITALS: BMI 21.2
[2020-10-22] MEDS ORDERED: SODIUM CHLORIDE 1,429 ML IV ONE (13:55)
[2020-10-22] MEDS ORDERED: PIPERACILLIN/TAZOB 4.5 GM 4.5 GM in DEXTROSE 5%-WATER 100 ML IVPB ONE (15:27)
[2020-10-22] MEDS ORDERED: VANCOMYCIN 1 GM in D5W (PRE-DOCKED) 1,000 MG/250 ML IVPB ONE (15:28)
[2020-10-22 15:48] LABS: BASO % 0.6 % (0-2.0); EOS % 2.5 % (0-4.5); HEMATOCRIT 44.6 % (35.4-49); HEMOGLOBIN 15.2 GM/dL (11.7-16.9); LYMPH % 47.3 % (8-40); MCH 29.7 pg (25.7-33.7); MCHC 34.2 g/dl (32.0-35.9); MEAN CELL VOLUME 86.8 fl (80-96); MEAN PLT VOLUME 7.2 fl (7.5-11.1); MONO % 8.3 % (3.8-10.2); NEUT % 41.3 % (42.8-82.8); PLATELET COUNT 309 K/MM3 (134-434); RBC 5.14 M/mm3 (4.00-5.60); RDW 13.7 % (11.9-15.9); WHITE BLOOD COUNT 6.1 K/mm3 (4.0-10.0)
[2020-10-22 15:53] LABS: INR 1.14 (0.83-1.09); PROTHROMBIN TIME (PATIENT) 13.7 SEC (9.7-13.0)
[2020-10-22 15:55] LABS: ACTIVATED PTT 41.9 SECONDS (25.2-36.5)
[2020-10-22 16:03] LABS: CHLORIDE 93 mmol/L (98-107); SODIUM 125 mmol/L (136-145)
[2020-10-22 16:05] LABS: CALCIUM 8.9 mg/dL (8.5-10.1)
[2020-10-22 16:06] LABS: ALBUMIN 3.8 g/dl (3.4-5.0); BLOOD UREA NITROGEN 7.5 mg/dL (7-18); CO2 27 mmol/L (21-32); GLUCOSE,RANDOM 71 mg/dL (74-106)
[2020-10-22 16:09] LABS: CREATININE 0.5 mg/dL (0.55-1.3); SGOT/AST 57 U/L (15-37); SGPT/ALT 36 U/L (13-61)
[2020-10-22 16:10] LABS: BILIRUBIN,TOTAL 0.5 mg/dL (0.2-1)
[2020-10-22 16:11] LABS: ALK PHOS 123 U/L (45-117)
[2020-10-22] MEDS ORDERED: VANCOMYCIN 1 GRAM (PRE-DOCKED) 1,000 MG/250 ML BAG IVPB ONE (16:30)
[2020-10-22] MEDS ORDERED: PIPERACILLIN/TAZOB 4.5 GM 4.5 GM/100 ML BAG IVPB ONE (16:30)
[2020-10-22 16:43] LABS: ANION GAP 5 MMOL/L (8-16)
[2020-10-22 16:55] LABS: POTASSIUM 6.2 mmol/L (3.5-5.1)
[2020-10-22] MEDS ORDERED: CALCIUM GLUCONATE 10% - 1,000 MG/10 ML VIAL IVPUSH ONE (16:58)
[2020-10-22] MEDS ORDERED: MEROPENEM 1 GM VIAL (RESTRICTED TO ID) IVPB ONE (17:06)
[2020-10-22] MEDS ORDERED: CALCIUM GLUCONATE 10% - 1,000 MG/10 ML VIAL ONE (17:07)
[2020-10-22 17:13] LABS: PH,URINE 7.5 (5.0-8.0); URINE APPEARANCE CLEAR; URINE BILIRUBIN NEGATIVE (NEGATIVE); URINE COLOR YELLOW; URINE GLUCOSE (UA) NEGATIVE (NEGATIVE); URINE KETONE NEGATIVE (NEGATIVE); URINE LEUK ESTERASE NEGATIVE (NEGATIVE); URINE NITRITE NEGATIVE (NEGATIVE); URINE PROTEIN NEGATIVE (NEGATIVE); URINE UROBILINOGEN 0.2 mg/dL (0.2-1.0)
[2020-10-22 17:19] LABS: EPI CELLS 7 /uL (0-25.1); HYALINE CASTS 0 /uL (0-3.1); URINE BACTERIA 22 /uL (0-1359); URINE RBC 1 /uL (0-23.9); URINE WBC 1 /uL (0-25.8)
[2020-10-22 18:01] LABS: POTASSIUM 5.5 mmol/L (3.5-5.1)
[2020-10-22 18:03] LABS: ALBUMIN 3.3 g/dl (3.4-5.0); BLOOD UREA NITROGEN 5.6 mg/dL (7-18); CALCIUM 8.2 mg/dL (8.5-10.1)
[2020-10-22] MEDS: MEROPENEM 1 GM in DEXTROSE 5%-WATER 100 ML IVPB ONE ×2 (18:05→19:16)
[2020-10-22 18:07] LABS: CREATININE 0.4 mg/dL (0.55-1.3)
[2020-10-22 18:08] LABS: BILIRUBIN,TOTAL 0.4 mg/dL (0.2-1); TOT PROT 7.2 g/dl (6.4-8.2)
[2020-10-22] MEDS ORDERED: LACTATED RINGERS SOLUTION 1,000 ML IV SCH (20:15)
[2020-10-22] MEDS ORDERED: ALBUTEROL SO4 2.5/IPRATROPIUM 0.5 INH SOL 3 ML VIAL.NEB. NEB PRN (22:13)
[2020-10-23] MEDS: MUPIROCIN 2% TOPICAL OINTMENT 22 GM TUBE TP SCH ×4 (00:29→18:32)
[2020-10-23] MEDS: MEROPENEM 1 GM in DEXTROSE 5%-WATER 100 ML IVPB SCH ×4 (04:28→10:59)
[2020-10-23] MEDS ORDERED: MEROPENEM 1 GM VIAL (RESTRICTED TO ID) IVPB ONE (04:28)
[2020-10-23] MEDS ORDERED: METOPROLOL TARTRATE 25 MG TABLET (FP) PEG ONE (05:05)
[2020-10-23] MEDS ORDERED: clonazePAM 0.5 MG TABLET ONE ×2 (05:21→14:29)
[2020-10-23] MEDS ORDERED: METOPROLOL TARTRATE 25 MG TABLET (FP) ONE (05:22)
[2020-10-23] MEDS ORDERED: BACLOFEN 10 MG TABLET (FP) ONE ×2 (05:22→12:00)
[2020-10-23] MEDS: BACLOFEN 10 MG TABLET (FP) GT SCH ×2 (05:30→12:18)
[2020-10-23] MEDS: clonazePAM 0.5 MG TABLET GT SCH ×2 (05:30→14:38)
[2020-10-23 07:56] LABS: POTASSIUM 4.4 mmol/L (3.5-5.1)
[2020-10-23] MEDS ORDERED: BUDESONIDE 0.5 MG/2 ML INH SUSP VIAL NEB SCH (08:00)
[2020-10-23 08:06] LABS: ALBUMIN 3.8 g/dl (3.4-5.0); BLOOD UREA NITROGEN 7.2 mg/dL (7-18); CALCIUM 8.7 mg/dL (8.5-10.1)
[2020-10-23 08:07] LABS: MAGNESIUM 2.2 mg/dL (1.8-2.4)
[2020-10-23 08:09] LABS: CREATININE 0.4 mg/dL (0.55-1.3)
[2020-10-23 08:10] LABS: BILIRUBIN,TOTAL 0.4 mg/dL (0.2-1); PHOSPHOROUS 3.2 mg/dL (2.5-4.9)
[2020-10-23 08:11] LABS: TOT PROT 8.2 g/dl (6.4-8.2)
[2020-10-23] MEDS ORDERED: TAMSULOSIN HCL 0.4 MG CAP PO SCH ×2 (08:30)
[2020-10-23] MEDS ORDERED: PT OWN MED DRAWER 7, Y5N ONE (08:43)
[2020-10-23] MEDS ORDERED: APIXABAN 5 MG TABLET ONE (09:24)
[2020-10-23] MEDS ORDERED: amLODIPine BESYLATE 5 MG TABLET (FP) PO SCH (10:00)
[2020-10-23] MEDS ORDERED: APIXABAN 5 MG TABLET GT SCH (10:00)
[2020-10-23] MEDS ORDERED: FAMOTIDINE 40 MG/5 ML ORAL SUSPENSION NGT SCH (10:00)
[2020-10-23] MEDS ORDERED: METOPROLOL TARTRATE 25 MG TABLET (FP) PEG SCH (10:00)
[2020-10-23] MEDS ORDERED: VANCOMYCIN 1 GM in D5W (PRE-DOCKED) 1,000 MG/250 ML IVPB SCH ×2 (10:00→17:00)
[2020-10-23] MEDS ORDERED: amLODIPine BESYLATE 5 MG TABLET (FP) PEG SCH (10:00)
[2020-10-23] MEDS ORDERED: POLYETHYLENE GLYCOL 3350 119 GM BTL PO SCH (10:00)
[2020-10-23] MEDS ORDERED: levETIRAcetam 500 MG/5 ML ORAL SOLUTION (UNIT-DOSE CUPS) GT SCH (10:00)
[2020-10-23] MEDS ORDERED: CHOLECALCIFEROL (VIT D SOLUTION) 400 UNIT/1 ML DROPS GT SCH (10:00)
[2020-10-23] MEDS ORDERED: carBAMazepine 100 MG/5 ML UNIT-DOSE CUP PO SCH (10:00)
[2020-10-23] MEDS ORDERED: ALBUTEROL SO4 2.5/IPRATROPIUM 0.5 INH SOL 3 ML VIAL.NEB. NEB ONE (15:49)
[2020-10-23 19:13] VITALS: BP 145/89; PULSE 92; TEMP 98
== END 2020-10-23 19:10 | DRG 201 ==
LOC: JER 12:15 → JERBED 18:51
PROVIDERS: ADMIT Hospitalist; ATTEND Internal Medicine
DX: R00.1 Bradycardia, unspecified (principal); R68.0 Hypothermia, not associated with low environmental temperature; I10 Essential (primary) hypertension; G80.9 Cerebral palsy, unspecified; Z93.1 Gastrostomy status; E87.1 Hypo-osmolality and hyponatremia; R53.2 Functional quadriplegia
CPT/HCPCS: 36415; 71045-TC-FY; 80053; 81003; 82550; 82553; 83605; 83735; 84100; 84443; 84484; 85025; 85610; 85730; 87040; 87086; 87804; 93005; 93010; 99285-25; C9803; J0475; U0003

== ENCOUNTER 2020-12-10 10:47 | Inpatient (IN) | payer OTHER ==
[2020-12-10] MEDS ORDERED: LACTATED RINGERS SOLUTION 1000 ML INFUS.BAG IV ONE (12:24)
[2020-12-10 12:41] LABS: PH,URINE 8.5 (5.0-8.0); URINE APPEARANCE CLEAR; URINE BILIRUBIN NEGATIVE (NEGATIVE); URINE COLOR YELLOW; URINE GLUCOSE (UA) NEGATIVE (NEGATIVE); URINE KETONE NEGATIVE (NEGATIVE); URINE LEUK ESTERASE NEGATIVE (NEGATIVE); URINE NITRITE NEGATIVE (NEGATIVE); URINE PROTEIN TRACE (NEGATIVE); URINE UROBILINOGEN 0.2 mg/dL (0.2-1.0)
[2020-12-10 12:42] LABS: BASO % 0.2 % (0-2.0); HEMATOCRIT 41.2 % (35.4-49); LYMPH % 8.8 % (8-40); MCH 29.1 pg (25.7-33.7); MEAN CELL VOLUME 85.6 fl (80-96); MONO % 11.4 % (3.8-10.2); NEUT % 79.6 % (42.8-82.8); PLATELET COUNT 232 K/MM3 (134-434); RBC 4.81 M/mm3 (4.00-5.60); RDW 14.3 % (11.9-15.9); WHITE BLOOD COUNT 8.9 K/mm3 (4.0-10.0)
[2020-12-10 12:51] LABS: INR 1.53 (0.83-1.09); PROTHROMBIN TIME (PATIENT) 18.3 SEC (9.7-13.0)
[2020-12-10 12:53] LABS: ACTIVATED PTT 42.5 SECONDS (25.2-36.5)
[2020-12-10 13:01] LABS: CHLORIDE 99 mmol/L (98-107); SODIUM 130 mmol/L (136-145)
[2020-12-10 13:03] LABS: ALBUMIN 3.7 g/dl (3.4-5.0); ANION GAP 7 MMOL/L (8-16); BLOOD UREA NITROGEN 8.2 mg/dL (7-18); CALCIUM 8.6 mg/dL (8.5-10.1); CO2 25 mmol/L (21-32); GLUCOSE,RANDOM 74 mg/dL (74-106)
[2020-12-10 13:07] LABS: CREATININE 0.4 mg/dL (0.55-1.3); SGOT/AST 19 U/L (15-37); SGPT/ALT 32 U/L (13-61)
[2020-12-10 13:08] LABS: BILIRUBIN,TOTAL 0.3 mg/dL (0.2-1)
[2020-12-10 13:09] LABS: ALK PHOS 123 U/L (45-117); TOT PROT 7.7 g/dl (6.4-8.2)
[2020-12-10] MEDS ORDERED: MEROPENEM 1 GM in DEXTROSE 5%-WATER 100 ML IVPB ONE (13:13)
[2020-12-10] MEDS ORDERED: VANCOMYCIN 1 GM in D5W (PRE-DOCKED) 1,000 MG/250 ML IVPB ONE (13:13)
[2020-12-10] MEDS ORDERED: VANCOMYCIN 1 GRAM (PRE-DOCKED) 1,000 MG/250 ML BAG IVPB ONE (14:02)
[2020-12-10] MEDS ORDERED: ACETAMINOPHEN 325 MG TABLET (FP) PO PRN (15:24)
[2020-12-10] MEDS ORDERED: PANTOPRAZOLE 40 MG TABLET PO SCH (15:30)
[2020-12-10] MEDS ORDERED: ALBUTEROL SO4 2.5/IPRATROPIUM 0.5 INH SOL 3 ML VIAL.NEB. NEB PRN (15:31)
[2020-12-10] MEDS ORDERED: TAMSULOSIN HCL 0.4 MG CAP NR SCH (15:45)
[2020-12-10] MEDS ORDERED: PIPERACILLIN/TAZOBACTAM 3.375 GM VIAL IVPB ONE (16:12)
[2020-12-10] MEDS ORDERED: DEXTROSE 5%-WATER - 50 ML IVPB ONE (16:12)
[2020-12-10] MEDS: PIPERACILLIN/TAZOB 3.375 GM 3.375 GM in DEXTROSE 5%-WATER - 50 ML IVPB SCH ×2 (16:18→17:23)
[2020-12-10] MEDS: SODIUM CHLORIDE 1,000 ML IV SCH (16:18)
[2020-12-10] MEDS: amLODIPine BESYLATE 5 MG TABLET (FP) PEG SCH (16:18)
[2020-12-10] MEDS: clonazePAM 0.5 MG TABLET GT SCH ×2 (16:18→21:53)
[2020-12-10] MEDS: MUPIROCIN 2% TOPICAL OINTMENT 22 GM TUBE TP SCH (18:51)
[2020-12-10] MEDS ORDERED: ACETAMINOPHEN 650 MG/20.3 ML ORAL SOLUTION (CUPS) GT PRN (19:31)
[2020-12-10] MEDS: METOPROLOL TARTRATE 25 MG TABLET (FP) PEG SCH (21:52)
[2020-12-10] MEDS: APIXABAN 5 MG TABLET GT SCH (21:53)
[2020-12-10] MEDS: levETIRAcetam 500 MG/5 ML ORAL SOLUTION (UNIT-DOSE CUPS) GT SCH (21:53)
[2020-12-10] MEDS: BUDESONIDE 0.5 MG/2 ML INH SUSP VIAL NEB SCH (22:00)
[2020-12-10] MEDS: carBAMazepine 100 MG/5 ML UNIT-DOSE CUP GT SCH (22:20)
[2020-12-11] MEDS ORDERED: DEXTROSE 5%-WATER - 50 ML IVPB ONE ×3 (01:17→17:32)
[2020-12-11] MEDS ORDERED: PIPERACILLIN/TAZOBACTAM 3.375 GM VIAL IVPB ONE ×3 (01:17→17:31)
[2020-12-11] MEDS: MUPIROCIN 2% TOPICAL OINTMENT 22 GM TUBE TP SCH ×5 (01:25→21:19)
[2020-12-11] MEDS: PIPERACILLIN/TAZOB 3.375 GM 3.375 GM in DEXTROSE 5%-WATER - 50 ML IVPB SCH ×3 (01:27→18:53)
[2020-12-11] MEDS: BACLOFEN 10 MG TABLET (FP) GT SCH ×2 (05:56→15:54)
[2020-12-11] MEDS: clonazePAM 0.5 MG TABLET GT SCH ×3 (05:56→21:18)
[2020-12-11] MEDS: SODIUM CHLORIDE 1,000 ML IV SCH ×2 (06:44→19:00)
[2020-12-11 09:18] LABS: BASO % 0.4 % (0-2.0); EOS % 0.9 % (0-4.5); HEMATOCRIT 41.9 % (35.4-49); HEMOGLOBIN 14.7 GM/dL (11.7-16.9); MCH 30.1 pg (25.7-33.7); MCHC 35.2 g/dl (32.0-35.9); MEAN CELL VOLUME 85.4 fl (80-96); MEAN PLT VOLUME 7.8 fl (7.5-11.1); MONO % 11.7 % (3.8-10.2); PLATELET COUNT 193 K/MM3 (134-434); RDW 14.3 % (11.9-15.9); WHITE BLOOD COUNT 7.2 K/mm3 (4.0-10.0)
[2020-12-11 09:27] LABS: INR 1.51 (0.83-1.09); PROTHROMBIN TIME (PATIENT) 18.4 SEC (9.7-13.0)
[2020-12-11] MEDS ORDERED: PT OWN MED DRAWER 7, Y5N ONE ×2 (09:56→15:56)
[2020-12-11 09:59] LABS: ALBUMIN 3.1 g/dl (3.4-5.0)
[2020-12-11 10:01] LABS: CALCIUM 8.4 mg/dL (8.5-10.1); MAGNESIUM 2.4 mg/dL (1.8-2.4)
[2020-12-11 10:02] LABS: PHOSPHOROUS 3.9 mg/dL (2.5-4.9)
[2020-12-11 10:06] LABS: BILIRUBIN,TOTAL 0.5 mg/dL (0.2-1); CREATININE 0.4 mg/dL (0.55-1.3); TOT PROT 7.1 g/dl (6.4-8.2)
[2020-12-11 10:11] LABS: BLOOD UREA NITROGEN 5.6 mg/dL (7-18)
[2020-12-11] MEDS: APIXABAN 5 MG TABLET GT SCH ×2 (10:17→21:18)
[2020-12-11] MEDS: METOPROLOL TARTRATE 25 MG TABLET (FP) PEG SCH ×2 (10:17→21:19)
[2020-12-11] MEDS: carBAMazepine 100 MG/5 ML UNIT-DOSE CUP GT SCH ×2 (10:17→22:13)
[2020-12-11] MEDS: BUDESONIDE 0.5 MG/2 ML INH SUSP VIAL NEB SCH ×2 (10:17→21:30)
[2020-12-11] MEDS: levETIRAcetam 500 MG/5 ML ORAL SOLUTION (UNIT-DOSE CUPS) GT SCH ×2 (10:17→21:20)
[2020-12-11] MEDS: FINASTERIDE 5 MG TABLET (FP) NR SCH (10:18)
[2020-12-11] MEDS: amLODIPine BESYLATE 5 MG TABLET (FP) PEG SCH (10:18)
[2020-12-11] MEDS: PANTOPRAZOLE SODIUM 40 MG/100 ML PRE-DOCKED IVPB SCH (10:18)
[2020-12-11] MEDS ORDERED: VANCOMYCIN 1,000 MG in DEXTROSE 5%-WATER - 250 ML IVPB ONE (15:30)
[2020-12-11] MEDS ORDERED: PIPERACILLIN/TAZOB 3.375 GM 3.375 GM in DEXTROSE 5%-WATER - 50 ML IVPB SCH (18:00)
[2020-12-12] MEDS ORDERED: DEXTROSE 5%-WATER - 50 ML IVPB ONE ×3 (00:48→17:00)
[2020-12-12] MEDS ORDERED: PIPERACILLIN/TAZOBACTAM 3.375 GM VIAL IVPB ONE ×3 (00:48→17:00)
[2020-12-12] MEDS: PIPERACILLIN/TAZOB 3.375 GM 3.375 GM in DEXTROSE 5%-WATER - 50 ML IVPB SCH ×3 (01:23→17:26)
[2020-12-12] MEDS: BACLOFEN 10 MG TABLET (FP) GT SCH ×2 (05:32→11:03)
[2020-12-12] MEDS: clonazePAM 0.5 MG TABLET GT SCH ×3 (05:33→22:25)
[2020-12-12] MEDS: BUDESONIDE 0.5 MG/2 ML INH SUSP VIAL NEB SCH ×2 (08:13→20:20)
[2020-12-12 09:27] LABS: BASO % 0.4 % (0-2.0); EOS % 4.6 % (0-4.5); HEMATOCRIT 37.3 % (35.4-49); HEMOGLOBIN 12.6 GM/dL (11.7-16.9); LYMPH % 35.5 % (8-40); MCH 29.4 pg (25.7-33.7); MCHC 33.9 g/dl (32.0-35.9); MEAN PLT VOLUME 8.2 fl (7.5-11.1); MONO % 9.5 % (3.8-10.2); PLATELET COUNT 181 K/MM3 (134-434); RBC 4.29 M/mm3 (4.00-5.60); RDW 14.3 % (11.9-15.9); WHITE BLOOD COUNT 4.8 K/mm3 (4.0-10.0)
[2020-12-12 09:47] LABS: CHLORIDE 103 mmol/L (98-107); SODIUM 135 mmol/L (136-145)
[2020-12-12 09:59] LABS: ALBUMIN 2.9 g/dl (3.4-5.0); ALK PHOS 106 U/L (45-117); ANION GAP 8 MMOL/L (8-16); CALCIUM 8.3 mg/dL (8.5-10.1); CO2 24 mmol/L (21-32); GLUCOSE,RANDOM 75 mg/dL (74-106)
[2020-12-12 10:00] LABS: MAGNESIUM 2.2 mg/dL (1.8-2.4); SGOT/AST 20 U/L (15-37); SGPT/ALT 40 U/L (13-61)
[2020-12-12 10:01] LABS: BILIRUBIN,TOTAL 0.3 mg/dL (0.2-1); TOT PROT 6.4 g/dl (6.4-8.2)
[2020-12-12 10:02] LABS: CREATININE 0.3 mg/dL (0.55-1.3); PHOSPHOROUS 3.4 mg/dL (2.5-4.9)
[2020-12-12 10:54] LABS: BLOOD UREA NITROGEN 2.8 mg/dL (7-18)
[2020-12-12] MEDS: METOPROLOL TARTRATE 25 MG TABLET (FP) PEG SCH ×2 (11:03→22:24)
[2020-12-12] MEDS: APIXABAN 5 MG TABLET GT SCH ×2 (11:04→22:24)
[2020-12-12] MEDS: FINASTERIDE 5 MG TABLET (FP) NR SCH (11:04)
[2020-12-12] MEDS: amLODIPine BESYLATE 5 MG TABLET (FP) PEG SCH (11:04)
[2020-12-12] MEDS: levETIRAcetam 500 MG/5 ML ORAL SOLUTION (UNIT-DOSE CUPS) GT SCH ×2 (11:04→22:24)
[2020-12-12] MEDS: SODIUM CHLORIDE 1,000 ML IV SCH ×2 (11:05→15:30)
[2020-12-12] MEDS ORDERED: PT OWN MED DRAWER 7, Y5N ONE ×2 (11:07→22:16)
[2020-12-12] MEDS: carBAMazepine 100 MG/5 ML UNIT-DOSE CUP GT SCH ×2 (11:08→22:25)
[2020-12-12] MEDS: PANTOPRAZOLE SODIUM 40 MG/100 ML PRE-DOCKED IVPB SCH (11:08)
[2020-12-12] MEDS: MUPIROCIN 2% TOPICAL OINTMENT 22 GM TUBE TP SCH ×4 (11:10→22:03)
[2020-12-13] MEDS: SODIUM CHLORIDE 1,000 ML IV SCH ×2 (00:37→15:43)
[2020-12-13] MEDS ORDERED: PIPERACILLIN/TAZOBACTAM 3.375 GM VIAL IVPB ONE ×3 (03:06→16:50)
[2020-12-13] MEDS ORDERED: DEXTROSE 5%-WATER - 50 ML IVPB ONE ×3 (03:07→16:51)
[2020-12-13] MEDS: PIPERACILLIN/TAZOB 3.375 GM 3.375 GM in DEXTROSE 5%-WATER - 50 ML IVPB SCH ×3 (03:09→17:21)
[2020-12-13] MEDS: BACLOFEN 10 MG TABLET (FP) GT SCH ×2 (06:21→11:40)
[2020-12-13] MEDS: clonazePAM 0.5 MG TABLET GT SCH ×3 (06:21→21:52)
[2020-12-13] MEDS: BUDESONIDE 0.5 MG/2 ML INH SUSP VIAL NEB SCH ×2 (07:42→19:25)
[2020-12-13 08:49] LABS: BASO % 0.5 % (0-2.0); EOS % 5.6 % (0-4.5); HEMATOCRIT 39.3 % (35.4-49); HEMOGLOBIN 13.5 GM/dL (11.7-16.9); LYMPH % 36.1 % (8-40); MCH 29.9 pg (25.7-33.7); MCHC 34.4 g/dl (32.0-35.9); MEAN CELL VOLUME 87.1 fl (80-96); MEAN PLT VOLUME 8.4 fl (7.5-11.1); MONO % 10.8 % (3.8-10.2); PLATELET COUNT 188 K/MM3 (134-434); RBC 4.52 M/mm3 (4.00-5.60); RDW 14.1 % (11.9-15.9); WHITE BLOOD COUNT 4.1 K/mm3 (4.0-10.0)
[2020-12-13 09:11] LABS: CHLORIDE 99 mmol/L (98-107); SODIUM 133 mmol/L (136-145)
[2020-12-13 09:19] LABS: CALCIUM 8.3 mg/dL (8.5-10.1)
[2020-12-13 09:20] LABS: ALBUMIN 3.2 g/dl (3.4-5.0); ANION GAP 8 MMOL/L (8-16); BILIRUBIN,TOTAL 0.4 mg/dL (0.2-1); CO2 26 mmol/L (21-32); GLUCOSE,RANDOM 77 mg/dL (74-106); MAGNESIUM 2.1 mg/dL (1.8-2.4)
[2020-12-13 09:21] LABS: ALK PHOS 114 U/L (45-117)
[2020-12-13 09:22] LABS: CREATININE 0.3 mg/dL (0.55-1.3); SGOT/AST 17 U/L (15-37); SGPT/ALT 40 U/L (13-61)
[2020-12-13 09:23] LABS: BLOOD UREA NITROGEN 2.3 mg/dL (7-18); PHOSPHOROUS 2.9 mg/dL (2.5-4.9); TOT PROT 7.1 g/dl (6.4-8.2)
[2020-12-13] MEDS ORDERED: PT OWN MED DRAWER 7, Y5N ONE ×2 (11:28→21:41)
[2020-12-13] MEDS: carBAMazepine 100 MG/5 ML UNIT-DOSE CUP GT SCH ×2 (11:39→21:51)
[2020-12-13] MEDS: levETIRAcetam 500 MG/5 ML ORAL SOLUTION (UNIT-DOSE CUPS) GT SCH ×2 (11:39→21:51)
[2020-12-13] MEDS: FINASTERIDE 5 MG TABLET (FP) NR SCH (11:40)
[2020-12-13] MEDS: APIXABAN 5 MG TABLET GT SCH ×2 (11:40→21:51)
[2020-12-13] MEDS: MUPIROCIN 2% TOPICAL OINTMENT 22 GM TUBE TP SCH ×4 (11:40→23:38)
[2020-12-13] MEDS: amLODIPine BESYLATE 5 MG TABLET (FP) PEG SCH (11:40)
[2020-12-13] MEDS: METOPROLOL TARTRATE 25 MG TABLET (FP) PEG SCH ×2 (11:40→21:52)
[2020-12-13] MEDS: PANTOPRAZOLE SODIUM 40 MG/100 ML PRE-DOCKED IVPB SCH (11:43)
[2020-12-13] MEDS ORDERED: SODIUM CHLORIDE 250 ML IV STA (14:47)
[2020-12-14] MEDS ORDERED: DEXTROSE 5%-WATER - 50 ML IVPB ONE (00:50)
[2020-12-14] MEDS ORDERED: PIPERACILLIN/TAZOBACTAM 3.375 GM VIAL IVPB ONE (00:50)
[2020-12-14] MEDS: PIPERACILLIN/TAZOB 3.375 GM 3.375 GM in DEXTROSE 5%-WATER - 50 ML IVPB SCH (01:17)
[2020-12-14] MEDS: clonazePAM 0.5 MG TABLET GT SCH ×3 (05:45→21:48)
[2020-12-14] MEDS: BACLOFEN 10 MG TABLET (FP) GT SCH ×2 (05:45→11:54)
[2020-12-14] MEDS: BUDESONIDE 0.5 MG/2 ML INH SUSP VIAL NEB SCH ×2 (08:03→20:52)
[2020-12-14 09:14] LABS: BLOOD UREA NITROGEN 4.4 mg/dL (7-18); CALCIUM 8.5 mg/dL (8.5-10.1)
[2020-12-14 09:15] LABS: ALBUMIN 3.2 g/dl (3.4-5.0)
[2020-12-14 09:18] LABS: CREATININE 0.3 mg/dL (0.55-1.3)
[2020-12-14 09:19] LABS: BILIRUBIN,TOTAL 0.3 mg/dL (0.2-1); TOT PROT 7.3 g/dl (6.4-8.2)
[2020-12-14] MEDS: MUPIROCIN 2% TOPICAL OINTMENT 22 GM TUBE TP SCH ×4 (10:14→21:50)
[2020-12-14] MEDS: FINASTERIDE 5 MG TABLET (FP) NR SCH (10:15)
[2020-12-14] MEDS: carBAMazepine 100 MG/5 ML UNIT-DOSE CUP GT SCH ×2 (10:15→21:50)
[2020-12-14] MEDS: METOPROLOL TARTRATE 25 MG TABLET (FP) PEG SCH ×2 (10:15→21:49)
[2020-12-14] MEDS: amLODIPine BESYLATE 5 MG TABLET (FP) PEG SCH (10:17)
[2020-12-14] MEDS: APIXABAN 5 MG TABLET GT SCH ×2 (10:17→21:48)
[2020-12-14] MEDS: levETIRAcetam 500 MG/5 ML ORAL SOLUTION (UNIT-DOSE CUPS) GT SCH ×2 (10:17→21:49)
[2020-12-14] MEDS: PANTOPRAZOLE SODIUM 40 MG/100 ML PRE-DOCKED IVPB SCH (10:27)
[2020-12-14] MEDS: SODIUM CHLORIDE 1,000 ML IV SCH (16:54)
[2020-12-14] MEDS ORDERED: POTASSIUM CHLORIDE ORAL LIQUID 20 MEQ/15 ML PO ONE (17:33)
[2020-12-14] MEDS ORDERED: PT OWN MED DRAWER 7, Y5N ONE (21:32)
[2020-12-15] MEDS: clonazePAM 0.5 MG TABLET GT SCH ×3 (05:17→22:56)
[2020-12-15] MEDS: BACLOFEN 10 MG TABLET (FP) GT SCH ×2 (05:17→13:12)
[2020-12-15] MEDS: BUDESONIDE 0.5 MG/2 ML INH SUSP VIAL NEB SCH ×2 (07:45→20:34)
[2020-12-15] MEDS: METOPROLOL TARTRATE 25 MG TABLET (FP) PEG SCH ×2 (09:51→22:57)
[2020-12-15] MEDS: levETIRAcetam 500 MG/5 ML ORAL SOLUTION (UNIT-DOSE CUPS) GT SCH ×2 (09:51→22:57)
[2020-12-15] MEDS: amLODIPine BESYLATE 5 MG TABLET (FP) PEG SCH (09:51)
[2020-12-15] MEDS: FINASTERIDE 5 MG TABLET (FP) NR SCH (09:51)
[2020-12-15] MEDS: carBAMazepine 100 MG/5 ML UNIT-DOSE CUP GT SCH ×2 (09:51→22:58)
[2020-12-15] MEDS: MUPIROCIN 2% TOPICAL OINTMENT 22 GM TUBE TP SCH ×4 (09:52→22:59)
[2020-12-15] MEDS: APIXABAN 5 MG TABLET GT SCH ×2 (09:52→22:57)
[2020-12-15] MEDS ORDERED: PT OWN MED DRAWER 7, Y5N ONE ×3 (09:54→22:55)
[2020-12-15 10:10] LABS: BLOOD UREA NITROGEN 7.4 mg/dL (7-18); CALCIUM 8.4 mg/dL (8.5-10.1); CREATININE 0.5 mg/dL (0.55-1.3); MAGNESIUM 2.3 mg/dL (1.8-2.4)
[2020-12-15] MEDS: FAMOTIDINE 40 MG/5 ML ORAL SUSPENSION PO SCH (22:59)
[2020-12-16] MEDS: BACLOFEN 10 MG TABLET (FP) GT SCH ×2 (07:36→12:37)
[2020-12-16] MEDS: clonazePAM 0.5 MG TABLET GT SCH ×3 (07:36→21:59)
[2020-12-16] MEDS: BUDESONIDE 0.5 MG/2 ML INH SUSP VIAL NEB SCH ×2 (07:40→20:25)
[2020-12-16 09:12] LABS: BASO % 0.4 % (0-2.0); EOS % 1.3 % (0-4.5); HEMATOCRIT 39.5 % (35.4-49); HEMOGLOBIN 13.3 GM/dL (11.7-16.9); MCH 29.5 pg (25.7-33.7); MCHC 33.6 g/dl (32.0-35.9); MEAN CELL VOLUME 87.6 fl (80-96); MEAN PLT VOLUME 7.9 fl (7.5-11.1); MONO % 11.5 % (3.8-10.2); NEUT % 55.8 % (42.8-82.8); PLATELET COUNT 234 K/MM3 (134-434); RBC 4.51 M/mm3 (4.00-5.60); RDW 14.7 % (11.9-15.9); WHITE BLOOD COUNT 8.7 K/mm3 (4.0-10.0)
[2020-12-16 09:35] LABS: ALBUMIN 3.3 g/dl (3.4-5.0); BLOOD UREA NITROGEN 8.3 mg/dL (7-18); CALCIUM 8.6 mg/dL (8.5-10.1); MAGNESIUM 2.2 mg/dL (1.8-2.4)
[2020-12-16 09:38] LABS: CREATININE 0.3 mg/dL (0.55-1.3); PHOSPHOROUS 4.6 mg/dL (2.5-4.9)
[2020-12-16 09:40] LABS: BILIRUBIN,TOTAL 0.4 mg/dL (0.2-1); TOT PROT 7.2 g/dl (6.4-8.2)
[2020-12-16] MEDS ORDERED: PT OWN MED DRAWER 7, Y5N ONE (10:14)
[2020-12-16] MEDS: FAMOTIDINE 40 MG/5 ML ORAL SUSPENSION PO SCH ×2 (10:47→22:00)
[2020-12-16] MEDS: levETIRAcetam 500 MG/5 ML ORAL SOLUTION (UNIT-DOSE CUPS) GT SCH ×2 (10:47→21:59)
[2020-12-16] MEDS: carBAMazepine 100 MG/5 ML UNIT-DOSE CUP GT SCH ×2 (10:48→21:59)
[2020-12-16] MEDS: METOPROLOL TARTRATE 25 MG TABLET (FP) PEG SCH (10:48)
[2020-12-16] MEDS: MUPIROCIN 2% TOPICAL OINTMENT 22 GM TUBE TP SCH ×4 (10:49→21:58)
[2020-12-16] MEDS: amLODIPine BESYLATE 5 MG TABLET (FP) PEG SCH (10:49)
[2020-12-16] MEDS: APIXABAN 5 MG TABLET GT SCH ×2 (10:49→21:59)
[2020-12-16] MEDS: FINASTERIDE 5 MG TABLET (FP) NR SCH (10:50)
[2020-12-16] MEDS: SODIUM CHLORIDE 1,000 ML IV STA ×2 (15:00→15:04)
[2020-12-17] MEDS: BACLOFEN 10 MG TABLET (FP) GT SCH ×2 (05:23→12:17)
[2020-12-17] MEDS: clonazePAM 0.5 MG TABLET GT SCH ×2 (05:23→14:11)
[2020-12-17] MEDS: BUDESONIDE 0.5 MG/2 ML INH SUSP VIAL NEB SCH ×2 (07:30→21:00)
[2020-12-17 08:49] LABS: ALBUMIN 3.1 g/dl (3.4-5.0); BLOOD UREA NITROGEN 5.1 mg/dL (7-18)
[2020-12-17 08:53] LABS: CREATININE 0.3 mg/dL (0.55-1.3)
[2020-12-17 08:54] LABS: BILIRUBIN,TOTAL 0.5 mg/dL (0.2-1); TOT PROT 7.1 g/dl (6.4-8.2)
[2020-12-17] MEDS: FAMOTIDINE 40 MG/5 ML ORAL SUSPENSION PO SCH ×2 (10:34→21:42)
[2020-12-17] MEDS: FINASTERIDE 5 MG TABLET (FP) NR SCH (10:34)
[2020-12-17] MEDS: APIXABAN 5 MG TABLET GT SCH ×2 (10:34→21:42)
[2020-12-17] MEDS: levETIRAcetam 500 MG/5 ML ORAL SOLUTION (UNIT-DOSE CUPS) GT SCH ×2 (10:35→21:42)
[2020-12-17] MEDS: MUPIROCIN 2% TOPICAL OINTMENT 22 GM TUBE TP SCH ×4 (10:35→21:42)
[2020-12-17] MEDS: carBAMazepine 100 MG/5 ML UNIT-DOSE CUP GT SCH ×2 (10:35→21:42)
[2020-12-17] MEDS ORDERED: PT OWN MED DRAWER 7, Y5N ONE (21:37)
[2020-12-18] MEDS: BACLOFEN 10 MG TABLET (FP) GT SCH ×2 (06:00→12:36)
[2020-12-18] MEDS: BUDESONIDE 0.5 MG/2 ML INH SUSP VIAL NEB SCH (08:25)
[2020-12-18] MEDS ORDERED: PT OWN MED DRAWER 7, Y5N ONE (10:09)
[2020-12-18] MEDS: carBAMazepine 100 MG/5 ML UNIT-DOSE CUP GT SCH (10:14)
[2020-12-18] MEDS: FAMOTIDINE 40 MG/5 ML ORAL SUSPENSION PO SCH (10:14)
[2020-12-18] MEDS: APIXABAN 5 MG TABLET GT SCH (10:14)
[2020-12-18] MEDS: FINASTERIDE 5 MG TABLET (FP) NR SCH (10:14)
[2020-12-18] MEDS: amLODIPine BESYLATE 5 MG TABLET (FP) PEG SCH (10:14)
[2020-12-18] MEDS: MUPIROCIN 2% TOPICAL OINTMENT 22 GM TUBE TP SCH ×2 (10:14→14:56)
[2020-12-18] MEDS: levETIRAcetam 500 MG/5 ML ORAL SOLUTION (UNIT-DOSE CUPS) GT SCH (10:15)
[2020-12-18 12:23] VITALS: BMI 21.1
[2020-12-18 14:34] VITALS: BP 112/62; PULSE 118; TEMP 97.3
== END 2020-12-18 17:48 | disposition home or self-care (01) | DRG 720 ==
LOC: JER 10:47 → JERBED 13:39 → J6S 15:11
PROVIDERS: ADMIT Internal Medicine; ATTEND Internal Medicine
PROC: 3E0G76Z Introduction of Nutritional Substance into Upper GI, Via Natural or Artificial Opening (ICD-10-PCS; principal; 2020-12-10)
DX: A41.9 Sepsis, unspecified organism (principal); J96.01 Acute respiratory failure with hypoxia; J69.0 Pneumonitis due to inhalation of food and vomit; R53.2 Functional quadriplegia; Q02 Microcephaly; R13.10 Dysphagia, unspecified; Z93.1 Gastrostomy status; N40.0 Benign prostatic hyperplasia without lower urinary tract symptoms; G80.9 Cerebral palsy, unspecified; G40.909 Epilepsy, unspecified, not intractable, without status epilepticus
CPT/HCPCS: 36415; 71045-TC-FY; 80048; 80053; 81003; 83605; 83735; 84100; 84484; 85025; 85610; 85730; 87040; 87086; 87804; 93005; 93010; 94640; 99291; C9803; J0475; U0003; U0005

== ENCOUNTER 2020-12-19 06:33 | Inpatient (IN) | payer OTHER ==
[2020-12-19] MEDS ORDERED: ACETAMINOPHEN 1000 MG/100 ML VIAL (NON FORMULARY) IVPB ONE (06:35)
[2020-12-19] MEDS ORDERED: ACETAMINOPHEN INJECTION 100 ML IVPB ONE (06:36)
[2020-12-19] MEDS ORDERED: SODIUM CHLORIDE 0.9% 500 ML INFUS.BAG IV ONE (06:41)
[2020-12-19 07:17] LABS: VENOUS BASE EXCESS -2.3 mmol/L (-2-2); VENOUS PCO2 30.5 mmHg (38-52); VENOUS PH 7.44 (7.310-7.410)
[2020-12-19] MEDS ORDERED: SODIUM CHLORIDE 1,000 ML IV STA (07:28)
[2020-12-19 07:30] LABS: INR 1.45 (0.83-1.09); PROTHROMBIN TIME (PATIENT) 17.4 SEC (9.7-13.0)
[2020-12-19 07:33] LABS: ACTIVATED PTT 36.5 SECONDS (25.2-36.5)
[2020-12-19 07:36] LABS: BASO % 0.3 % (0-2.0); EOS % 0.3 % (0-4.5); HEMATOCRIT 38.7 % (35.4-49); HEMOGLOBIN 13.4 GM/dL (11.7-16.9); LYMPH % 9.6 % (8-40); MCH 29.5 pg (25.7-33.7); MCHC 34.6 g/dl (32.0-35.9); MEAN CELL VOLUME 85.3 fl (80-96); MEAN PLT VOLUME 7.6 fl (7.5-11.1); NEUT % 80.8 % (42.8-82.8); PLATELET COUNT 286 K/MM3 (134-434); RBC 4.54 M/mm3 (4.00-5.60); RDW 14.6 % (11.9-15.9); WHITE BLOOD COUNT 11.6 K/mm3 (4.0-10.0)
[2020-12-19 07:40] LABS: CHLORIDE 99 mmol/L (98-107); SODIUM 133 mmol/L (136-145)
[2020-12-19 07:42] LABS: ALBUMIN 3.3 g/dl (3.4-5.0); ANION GAP 13 MMOL/L (8-16); BLOOD UREA NITROGEN 7.8 mg/dL (7-18); CALCIUM 8.5 mg/dL (8.5-10.1); CO2 22 mmol/L (21-32); GLUCOSE,RANDOM 115 mg/dL (74-106); MAGNESIUM 1.9 mg/dL (1.8-2.4)
[2020-12-19 07:45] LABS: CREATININE 0.6 mg/dL (0.55-1.3); PHOSPHOROUS 3.2 mg/dL (2.5-4.9); SGOT/AST 39 U/L (15-37); SGPT/ALT 34 U/L (13-61)
[2020-12-19 07:47] LABS: BILIRUBIN,TOTAL 0.4 mg/dL (0.2-1); TOT PROT 7.6 g/dl (6.4-8.2)
[2020-12-19 07:48] LABS: ALK PHOS 104 U/L (45-117)
[2020-12-19 07:50] LABS: LACTIC ACID 4.7 mmol/L (0.4-2.0)
[2020-12-19 08:10] LABS: EPI CELLS >36 /uL (0-25.1); HYALINE CASTS 6 /uL (0-3.1); PH,URINE 7.5 (5.0-8.0); URINE APPEARANCE CLEAR; URINE BACTERIA 44 /uL (0-1359); URINE BILIRUBIN NEGATIVE (NEGATIVE); URINE COLOR YELLOW; URINE GLUCOSE (UA) NEGATIVE (NEGATIVE); URINE KETONE NEGATIVE (NEGATIVE); URINE LEUK ESTERASE NEGATIVE (NEGATIVE); URINE NITRITE NEGATIVE (NEGATIVE); URINE PROTEIN 1+ (NEGATIVE); URINE RBC 8 /uL (0-23.9); URINE UROBILINOGEN 0.2 mg/dL (0.2-1.0); URINE WBC 9 /uL (0-25.8)
[2020-12-19] MEDS ORDERED: VANCOMYCIN 750 MG in DEXTROSE 5%-WATER - 250 ML IVPB ONE (08:27)
[2020-12-19] MEDS ORDERED: PIPERACILLIN/TAZOB 3.375 GM 3.375 GM in DEXTROSE 5%-WATER - 50 ML IVPB ONE (08:28)
[2020-12-19] MEDS ORDERED: PIPERACILLIN/TAZOB 3.375 GM 3.375 GM/50 ML BAG IVPB ONE (09:15)
[2020-12-19] MEDS ORDERED: diazePAM RECTAL GEL 10 MG KIT (PRE-CALIBRATED) RC PRN (09:43)
[2020-12-19] MEDS ORDERED: ALBUTEROL SO4 2.5/IPRATROPIUM 0.5 INH SOL 3 ML VIAL.NEB. NEB PRN (09:43)
[2020-12-19] MEDS: MUPIROCIN 2% TOPICAL OINTMENT 22 GM TUBE TP SCH ×4 (10:00→21:45)
[2020-12-19] MEDS ORDERED: ENOXAPARIN NA (PORCINE) 40 MG/0.4 ML DISP.SYRIN SQ SCH (10:00)
[2020-12-19] MEDS ORDERED: PATIENT'S OWN MEDICATION (NON-FORMULARY) (Lactose-Reduced Food/Fiber [Jevity 1 Cal Liquid] PO SCH (10:00)
[2020-12-19] MEDS: SODIUM CHLORIDE 1,000 ML IV SCH ×2 (10:12→17:43)
[2020-12-19] MEDS ORDERED: ACETAMINOPHEN 1000 MG/100 ML VIAL (NON FORMULARY) IVPB PRN (10:23)
[2020-12-19] MEDS ORDERED: ASCORBIC ACID 500 MG TABLET (FP) ONE (11:09)
[2020-12-19] MEDS ORDERED: APIXABAN 5 MG TABLET ONE (11:10)
[2020-12-19] MEDS ORDERED: METOPROLOL TARTRATE 25 MG TABLET (FP) ONE (11:10)
[2020-12-19] MEDS ORDERED: FAMOTIDINE 20 MG TABLET ONE (11:10)
[2020-12-19] MEDS ORDERED: BACLOFEN 10 MG TABLET (FP) ONE (11:11)
[2020-12-19] MEDS: FAMOTIDINE 40 MG/5 ML ORAL SUSPENSION PO SCH ×2 (11:30→22:10)
[2020-12-19] MEDS: BUDESONIDE 0.5 MG/2 ML INH SUSP VIAL NEB SCH ×2 (11:30→21:00)
[2020-12-19] MEDS: APIXABAN 5 MG TABLET GT SCH ×2 (11:30→21:42)
[2020-12-19] MEDS: METOPROLOL TARTRATE 50 MG TABLET (FP) PEG SCH ×2 (11:30→21:41)
[2020-12-19] MEDS: carBAMazepine 100 MG/5 ML UNIT-DOSE CUP GT SCH ×2 (11:30→21:45)
[2020-12-19] MEDS: levETIRAcetam 500 MG/5 ML ORAL SOLUTION (UNIT-DOSE CUPS) GT SCH ×2 (11:30→21:42)
[2020-12-19] MEDS: POLYETHYLENE GLYCOL 3350 119 GM BTL GT SCH (11:30)
[2020-12-19] MEDS: CHOLECALCIFEROL (VIT D3) 1,000 UNIT (25 MCG) TABLET GT SCH (11:30)
[2020-12-19] MEDS: DOXAZOSIN MESYLATE 1 MG TABLET GT SCH (11:49)
[2020-12-19] MEDS: BACLOFEN 10 MG TABLET (FP) GT SCH (11:51)
[2020-12-19 14:07] LABS: LACTIC ACID 2.4 mmol/L (0.4-2.0)
[2020-12-19] MEDS: clonazePAM 0.5 MG TABLET GT SCH ×2 (15:38→21:41)
[2020-12-19] MEDS ORDERED: clonazePAM 0.5 MG TABLET ONE (15:45)
[2020-12-19] MEDS ORDERED: DEXTROSE 5%-WATER 100 ML IVPB ONE (17:49)
[2020-12-19] MEDS: CEFEPIME 1 GM in DEXTROSE 5%-WATER 100 ML IVPB SCH (17:49)
[2020-12-19] MEDS ORDERED: CEFEPIME HCL 1 GM VIAL (RESTRICTED TO ID) ONE (17:49)
[2020-12-20] MEDS ORDERED: DEXTROSE 5%-WATER 100 ML IVPB ONE ×3 (00:37→17:56)
[2020-12-20] MEDS ORDERED: CEFEPIME HCL 1 GM VIAL (RESTRICTED TO ID) ONE ×3 (00:37→17:56)
[2020-12-20] MEDS: CEFEPIME 1 GM in DEXTROSE 5%-WATER 100 ML IVPB SCH ×3 (01:03→18:03)
[2020-12-20] MEDS: clonazePAM 0.5 MG TABLET GT SCH ×3 (05:30→22:08)
[2020-12-20] MEDS: BACLOFEN 10 MG TABLET (FP) GT SCH ×2 (05:30→12:42)
[2020-12-20] MEDS: BUDESONIDE 0.5 MG/2 ML INH SUSP VIAL NEB SCH ×2 (07:57→19:58)
[2020-12-20 09:02] LABS: BASO % 0.8 % (0-2.0); EOS % 4.1 % (0-4.5); HEMATOCRIT 34.6 % (35.4-49); HEMOGLOBIN 11.6 GM/dL (11.7-16.9); LYMPH % 35.8 % (8-40); MCH 29.5 pg (25.7-33.7); MCHC 33.6 g/dl (32.0-35.9); MEAN CELL VOLUME 87.8 fl (80-96); MEAN PLT VOLUME 7.7 fl (7.5-11.1); MONO % 9.8 % (3.8-10.2); NEUT % 49.5 % (42.8-82.8); PLATELET COUNT 227 K/MM3 (134-434); RBC 3.94 M/mm3 (4.00-5.60); RDW 14.4 % (11.9-15.9); WHITE BLOOD COUNT 4.6 K/mm3 (4.0-10.0)
[2020-12-20] MEDS: SODIUM CHLORIDE 1,000 ML IV SCH (09:13)
[2020-12-20 09:59] LABS: ALBUMIN 2.8 g/dl (3.4-5.0); BLOOD UREA NITROGEN 3.4 mg/dL (7-18)
[2020-12-20 10:00] LABS: MAGNESIUM 2.1 mg/dL (1.8-2.4)
[2020-12-20] MEDS ORDERED: VANCOMYCIN 750 MG in DEXTROSE 5%-WATER - 150 ML IVPB SCH (10:00)
[2020-12-20 10:02] LABS: CALCIUM 8.3 mg/dL (8.5-10.1)
[2020-12-20 10:03] LABS: CREATININE 0.2 mg/dL (0.55-1.3); PHOSPHOROUS 3.1 mg/dL (2.5-4.9)
[2020-12-20 10:04] LABS: BILIRUBIN,TOTAL 0.3 mg/dL (0.2-1); TOT PROT 6.3 g/dl (6.4-8.2)
[2020-12-20] MEDS ORDERED: PT OWN MED DRAWER 7, Y5N ONE ×2 (10:45→22:06)
[2020-12-20] MEDS: carBAMazepine 100 MG/5 ML UNIT-DOSE CUP GT SCH ×2 (10:53→22:12)
[2020-12-20] MEDS: levETIRAcetam 500 MG/5 ML ORAL SOLUTION (UNIT-DOSE CUPS) GT SCH ×2 (10:54→22:08)
[2020-12-20] MEDS: CHOLECALCIFEROL (VIT D3) 1,000 UNIT (25 MCG) TABLET GT SCH (10:55)
[2020-12-20] MEDS: METOPROLOL TARTRATE 50 MG TABLET (FP) PEG SCH ×2 (10:55→22:10)
[2020-12-20] MEDS: APIXABAN 5 MG TABLET GT SCH ×2 (10:56→22:09)
[2020-12-20] MEDS: DOXAZOSIN MESYLATE 1 MG TABLET GT SCH (10:56)
[2020-12-20] MEDS: FAMOTIDINE 40 MG/5 ML ORAL SUSPENSION PO SCH ×2 (10:58→22:12)
[2020-12-20] MEDS: POLYETHYLENE GLYCOL 3350 119 GM BTL GT SCH (10:58)
[2020-12-20] MEDS: VANCOMYCIN 750 MG in DEXTROSE 5%-WATER - 250 ML IVPB SCH (10:59)
[2020-12-20] MEDS: MUPIROCIN 2% TOPICAL OINTMENT 22 GM TUBE TP SCH ×4 (12:42→22:07)
[2020-12-20 15:53] VITALS: BMI 20.9
[2020-12-21] MEDS ORDERED: CEFEPIME HCL 1 GM VIAL (RESTRICTED TO ID) ONE ×3 (01:23→17:11)
[2020-12-21] MEDS ORDERED: DEXTROSE 5%-WATER 100 ML IVPB ONE ×3 (01:23→17:11)
[2020-12-21] MEDS: CEFEPIME 1 GM in DEXTROSE 5%-WATER 100 ML IVPB SCH ×3 (01:26→17:17)
[2020-12-21] MEDS: SODIUM CHLORIDE 1,000 ML IV SCH ×2 (01:27→13:00)
[2020-12-21] MEDS: clonazePAM 0.5 MG TABLET GT SCH ×3 (05:58→21:19)
[2020-12-21] MEDS: BACLOFEN 10 MG TABLET (FP) GT SCH ×2 (05:58→13:00)
[2020-12-21] MEDS: BUDESONIDE 0.5 MG/2 ML INH SUSP VIAL NEB SCH ×2 (08:30→20:15)
[2020-12-21 09:49] LABS: BASO % 0.5 % (0-2.0); EOS % 2.5 % (0-4.5); HEMOGLOBIN 12.1 GM/dL (11.7-16.9); LYMPH % 29.1 % (8-40); MCH 29.1 pg (25.7-33.7); MCHC 33.6 g/dl (32.0-35.9); MEAN CELL VOLUME 86.7 fl (80-96); MEAN PLT VOLUME 7.4 fl (7.5-11.1); MONO % 7.6 % (3.8-10.2); NEUT % 60.3 % (42.8-82.8); PLATELET COUNT 298 K/MM3 (134-434); RBC 4.15 M/mm3 (4.00-5.60); RDW 14.6 % (11.9-15.9); WHITE BLOOD COUNT 7.6 K/mm3 (4.0-10.0)
[2020-12-21 09:56] LABS: CHLORIDE 106 mmol/L (98-107); SODIUM 137 mmol/L (136-145)
[2020-12-21] MEDS ORDERED: PT OWN MED DRAWER 7, Y5N ONE ×3 (09:58→21:37)
[2020-12-21 10:05] LABS: CALCIUM 8.6 mg/dL (8.5-10.1)
[2020-12-21 10:06] LABS: ANION GAP 6 MMOL/L (8-16); CO2 26 mmol/L (21-32); GLUCOSE,RANDOM 87 mg/dL (74-106); MAGNESIUM 2.2 mg/dL (1.8-2.4)
[2020-12-21 10:09] LABS: CREATININE 0.2 mg/dL (0.55-1.3); SGOT/AST 17 U/L (15-37); SGPT/ALT 33 U/L (13-61)
[2020-12-21 10:10] LABS: BILIRUBIN,TOTAL 0.3 mg/dL (0.2-1); TOT PROT 6.7 g/dl (6.4-8.2)
[2020-12-21 10:11] LABS: ALK PHOS 96 U/L (45-117)
[2020-12-21] MEDS: carBAMazepine 100 MG/5 ML UNIT-DOSE CUP GT SCH ×2 (10:32→22:57)
[2020-12-21] MEDS: APIXABAN 5 MG TABLET GT SCH ×2 (10:32→21:21)
[2020-12-21] MEDS: METOPROLOL TARTRATE 50 MG TABLET (FP) PEG SCH ×2 (10:32→21:20)
[2020-12-21] MEDS: DOXAZOSIN MESYLATE 1 MG TABLET GT SCH (10:32)
[2020-12-21] MEDS: FAMOTIDINE 40 MG/5 ML ORAL SUSPENSION PO SCH ×2 (10:32→21:25)
[2020-12-21] MEDS: levETIRAcetam 500 MG/5 ML ORAL SOLUTION (UNIT-DOSE CUPS) GT SCH ×2 (10:32→21:23)
[2020-12-21] MEDS: POLYETHYLENE GLYCOL 3350 119 GM BTL GT SCH (10:33)
[2020-12-21] MEDS: CHOLECALCIFEROL (VIT D3) 1,000 UNIT (25 MCG) TABLET GT SCH (10:33)
[2020-12-21] MEDS: MUPIROCIN 2% TOPICAL OINTMENT 22 GM TUBE TP SCH ×4 (10:34→21:22)
[2020-12-21 11:07] LABS: BLOOD UREA NITROGEN 2.4 mg/dL (7-18)
[2020-12-21] MEDS: VANCOMYCIN 750 MG in DEXTROSE 5%-WATER - 250 ML IVPB SCH (11:28)
[2020-12-21] MEDS ORDERED: POTASSIUM CHLORIDE ORAL LIQUID 20 MEQ/15 ML PEG ONE (20:05)
[2020-12-22] MEDS ORDERED: CEFEPIME HCL 1 GM VIAL (RESTRICTED TO ID) ONE ×3 (01:59→17:02)
[2020-12-22] MEDS ORDERED: DEXTROSE 5%-WATER 100 ML IVPB ONE ×3 (02:00→17:02)
[2020-12-22] MEDS: CEFEPIME 1 GM in DEXTROSE 5%-WATER 100 ML IVPB SCH ×3 (02:17→17:12)
[2020-12-22] MEDS: BACLOFEN 10 MG TABLET (FP) GT SCH ×2 (05:25→11:28)
[2020-12-22] MEDS: clonazePAM 0.5 MG TABLET GT SCH ×3 (05:25→22:51)
[2020-12-22] MEDS: SODIUM CHLORIDE 1,000 ML IV SCH (05:58)
[2020-12-22] MEDS: BUDESONIDE 0.5 MG/2 ML INH SUSP VIAL NEB SCH ×2 (07:40→20:42)
[2020-12-22] MEDS ORDERED: PT OWN MED DRAWER 7, Y5N ONE ×2 (09:04→22:43)
[2020-12-22 09:06] LABS: HEMATOCRIT 36.4 % (35.4-49); HEMOGLOBIN 12.7 GM/dL (11.7-16.9); MCH 29.7 pg (25.7-33.7); MCHC 34.8 g/dl (32.0-35.9); MEAN CELL VOLUME 85.5 fl (80-96); PLATELET COUNT 318 K/MM3 (134-434); RBC 4.26 M/mm3 (4.00-5.60); RDW 14.7 % (11.9-15.9)
[2020-12-22 09:07] LABS: BASO % 0.4 % (0-2.0); EOS % 1.3 % (0-4.5); LYMPH % 16.9 % (8-40); MEAN PLT VOLUME 7.4 fl (7.5-11.1); MONO % 5.9 % (3.8-10.2); NEUT % 75.5 % (42.8-82.8)
[2020-12-22] MEDS: APIXABAN 5 MG TABLET GT SCH ×2 (09:09→22:51)
[2020-12-22] MEDS: DOXAZOSIN MESYLATE 1 MG TABLET GT SCH (09:09)
[2020-12-22] MEDS: CHOLECALCIFEROL (VIT D3) 1,000 UNIT (25 MCG) TABLET GT SCH (09:09)
[2020-12-22] MEDS: METOPROLOL TARTRATE 50 MG TABLET (FP) PEG SCH ×2 (09:09→22:51)
[2020-12-22] MEDS: MUPIROCIN 2% TOPICAL OINTMENT 22 GM TUBE TP SCH ×3 (09:10→17:12)
[2020-12-22] MEDS: carBAMazepine 100 MG/5 ML UNIT-DOSE CUP GT SCH ×2 (09:10→22:51)
[2020-12-22] MEDS: levETIRAcetam 500 MG/5 ML ORAL SOLUTION (UNIT-DOSE CUPS) GT SCH ×2 (09:10→22:50)
[2020-12-22] MEDS: FAMOTIDINE 40 MG/5 ML ORAL SUSPENSION PO SCH ×2 (09:11→22:52)
[2020-12-22] MEDS: POLYETHYLENE GLYCOL 3350 119 GM BTL GT SCH (09:11)
[2020-12-22 09:33] LABS: ALBUMIN 3.2 g/dl (3.4-5.0); CALCIUM 8.6 mg/dL (8.5-10.1)
[2020-12-22 09:34] LABS: BLOOD UREA NITROGEN 5.1 mg/dL (7-18); MAGNESIUM 2.1 mg/dL (1.8-2.4)
[2020-12-22 09:37] LABS: CREATININE 0.3 mg/dL (0.55-1.3); PHOSPHOROUS 2.9 mg/dL (2.5-4.9)
[2020-12-22 09:38] LABS: BILIRUBIN,TOTAL 0.3 mg/dL (0.2-1); TOT PROT 7.4 g/dl (6.4-8.2)
[2020-12-22] MEDS: VANCOMYCIN 750 MG in DEXTROSE 5%-WATER - 250 ML IVPB SCH (10:26)
[2020-12-23] MEDS ORDERED: CEFEPIME HCL 1 GM VIAL (RESTRICTED TO ID) ONE ×2 (01:33→10:10)
[2020-12-23] MEDS: CEFEPIME 1 GM in DEXTROSE 5%-WATER 100 ML IVPB SCH ×2 (01:46→10:24)
[2020-12-23] MEDS: clonazePAM 0.5 MG TABLET GT SCH ×3 (05:22→22:23)
[2020-12-23] MEDS: BACLOFEN 10 MG TABLET (FP) GT SCH ×2 (05:22→11:24)
[2020-12-23] MEDS: BUDESONIDE 0.5 MG/2 ML INH SUSP VIAL NEB SCH ×2 (07:25→20:35)
[2020-12-23] MEDS ORDERED: PT OWN MED DRAWER 7, Y5N ONE ×4 (10:10→22:15)
[2020-12-23] MEDS ORDERED: DEXTROSE 5%-WATER 100 ML IVPB ONE (10:10)
[2020-12-23] MEDS: METOPROLOL TARTRATE 50 MG TABLET (FP) PEG SCH ×2 (10:21→22:23)
[2020-12-23] MEDS: CHOLECALCIFEROL (VIT D3) 1,000 UNIT (25 MCG) TABLET GT SCH (10:25)
[2020-12-23] MEDS: levETIRAcetam 500 MG/5 ML ORAL SOLUTION (UNIT-DOSE CUPS) GT SCH ×2 (10:26→22:21)
[2020-12-23] MEDS: DOXAZOSIN MESYLATE 1 MG TABLET GT SCH (10:27)
[2020-12-23] MEDS: carBAMazepine 100 MG/5 ML UNIT-DOSE CUP GT SCH ×2 (10:28→22:22)
[2020-12-23] MEDS: APIXABAN 5 MG TABLET GT SCH ×2 (10:28→22:23)
[2020-12-23] MEDS: FAMOTIDINE 40 MG/5 ML ORAL SUSPENSION PO SCH ×2 (10:29→22:21)
[2020-12-23] MEDS: POLYETHYLENE GLYCOL 3350 119 GM BTL GT SCH (10:40)
[2020-12-23 10:48] LABS: BASO % 0.3 % (0-2.0); EOS % 0.3 % (0-4.5); HEMATOCRIT 37.8 % (35.4-49); HEMOGLOBIN 13.3 GM/dL (11.7-16.9); LYMPH % 19.7 % (8-40); MCH 30.1 pg (25.7-33.7); MCHC 35.1 g/dl (32.0-35.9); MEAN CELL VOLUME 85.8 fl (80-96); MEAN PLT VOLUME 7.6 fl (7.5-11.1); MONO % 9.7 % (3.8-10.2); PLATELET COUNT 404 K/MM3 (134-434); RBC 4.41 M/mm3 (4.00-5.60); RDW 14.7 % (11.9-15.9); WHITE BLOOD COUNT 10.3 K/mm3 (4.0-10.0)
[2020-12-23] MEDS: VANCOMYCIN 750 MG in DEXTROSE 5%-WATER - 250 ML IVPB SCH (11:05)
[2020-12-23 11:11] LABS: BLOOD UREA NITROGEN 5.4 mg/dL (7-18); MAGNESIUM 2.3 mg/dL (1.8-2.4)
[2020-12-23 11:14] LABS: CREATININE 0.4 mg/dL (0.55-1.3)
[2020-12-23 11:15] LABS: PHOSPHOROUS 3.4 mg/dL (2.5-4.9)
[2020-12-24] MEDS: clonazePAM 0.5 MG TABLET GT SCH ×2 (06:00→14:09)
[2020-12-24] MEDS: BACLOFEN 10 MG TABLET (FP) GT SCH ×2 (06:01→13:10)
[2020-12-24] MEDS: BUDESONIDE 0.5 MG/2 ML INH SUSP VIAL NEB SCH ×2 (07:54→19:15)
[2020-12-24] MEDS ORDERED: PT OWN MED DRAWER 7, Y5N ONE (10:54)
[2020-12-24] MEDS: levETIRAcetam 500 MG/5 ML ORAL SOLUTION (UNIT-DOSE CUPS) GT SCH (11:33)
[2020-12-24] MEDS: CHOLECALCIFEROL (VIT D3) 1,000 UNIT (25 MCG) TABLET GT SCH (11:33)
[2020-12-24] MEDS: APIXABAN 5 MG TABLET GT SCH (11:33)
[2020-12-24] MEDS: METOPROLOL TARTRATE 50 MG TABLET (FP) PEG SCH (11:33)
[2020-12-24] MEDS: DOXAZOSIN MESYLATE 1 MG TABLET GT SCH (11:34)
[2020-12-24] MEDS: carBAMazepine 100 MG/5 ML UNIT-DOSE CUP GT SCH (11:34)
[2020-12-24] MEDS: POLYETHYLENE GLYCOL 3350 119 GM BTL GT SCH (11:35)
[2020-12-24] MEDS: FAMOTIDINE 40 MG/5 ML ORAL SUSPENSION PO SCH (11:35)
[2020-12-24 14:20] VITALS: BP 103/56; PULSE 86; TEMP 99.1
== END 2020-12-24 20:55 | DRG 720 ==
LOC: JER 06:33 → JERBED 09:18 → J6S 17:35
PROVIDERS: ADMIT Internal Medicine; ATTEND Student in an Organized Health Care Education/Training Program
DX: A41.89 Other specified sepsis (principal); R50.9 Fever, unspecified; G40.909 Epilepsy, unspecified, not intractable, without status epilepticus; Q02 Microcephaly; G80.8 Other cerebral palsy; Q67.5 Congenital deformity of spine; F78 Other intellectual disabilities; N44.00 Torsion of testis, unspecified; N50.82 Scrotal pain; J45.909 Unspecified asthma, uncomplicated; R13.10 Dysphagia, unspecified; E87.2 Acidosis; N40.0 Benign prostatic hyperplasia without lower urinary tract symptoms; R53.2 Functional quadriplegia; D72.829 Elevated white blood cell count, unspecified; Z86.718 Personal history of other venous thrombosis and embolism
CPT/HCPCS: 36415; 71045-TC-FY; 80048; 80053; 80156; 80177; 81003; 82550; 82553; 82803; 83605; 83735; 84100; 84484; 85025; 85610; 85730; 86738; 86769; 86850; 86900; 86901; 87040; 87070; 87086; 87186; 87205; 87804; 87899; 93005; 93010; 94640; 99285-25; C9803; G0480; J0131; J0475; U0003; U0005

== ENCOUNTER 2021-04-23 05:52 | Inpatient (IN) | payer OTHER ==
[2021-04-23 06:15] VITALS: BMI 17.6
[2021-04-23] MEDS ORDERED: SODIUM CHLORIDE 0.9% 500 ML INFUS.BAG IV ONE (06:15)
[2021-04-23] MEDS ORDERED: ACETAMINOPHEN 1000 MG/100 ML BAG IVPB ONE (06:15)
[2021-04-23] MEDS ORDERED: ACETAMINOPHEN INJECTION 100 ML IVPB ONE (07:07)
[2021-04-23 07:14] LABS: HEMATOCRIT 41.6 % (35.4-49); HEMOGLOBIN 14.3 GM/dL (11.7-16.9); MCH 29.9 pg (25.7-33.7); MCHC 34.5 g/dl (32.0-35.9); MEAN CELL VOLUME 86.9 fl (80-96); MEAN PLT VOLUME 7.1 fl (7.5-11.1); PLATELET COUNT 366 10^3/uL (134-434); RBC 4.79 M/mm3 (4.00-5.60); RDW 14.1 % (11.9-15.9); WHITE BLOOD COUNT 13.1 K/mm3 (4.0-10.0)
[2021-04-23 07:23] LABS: INR 1.26 (0.83-1.09); PROTHROMBIN TIME (PATIENT) 15.1 SEC (9.7-13.0)
[2021-04-23 07:26] LABS: ACTIVATED PTT 34.2 SECONDS (25.2-36.5)
[2021-04-23 07:40] LABS: CALCIUM 8.8 mg/dL (8.5-10.1)
[2021-04-23 07:41] LABS: ALBUMIN 3.6 g/dl (3.4-5.0); BLOOD UREA NITROGEN 9.9 mg/dL (7-18)
[2021-04-23 07:44] LABS: CREATININE 0.5 mg/dL (0.55-1.3)
[2021-04-23 07:45] LABS: BILIRUBIN,TOTAL 0.2 mg/dL (0.2-1)
[2021-04-23 07:46] LABS: TOT PROT 8.1 g/dl (6.4-8.2)
[2021-04-23 08:47] LABS: ANISOCYTOSIS 0; HELMET CELLS 0; HOWELL-JOLLY BODIES 0; MACROCYTOSIS 0; OVALOCYTE 0; PLATELET ESTIMATE NORMAL; ROULEAU 0; SICKELED CELLS 0; TARGET CELLS 0; TEAR DROP CELLS 0; TOXIC GRANULATION 0
[2021-04-23] MEDS ORDERED: ASPIRIN 81 MG CHEWABLE TABLETS PEG ONE (09:58)
[2021-04-23] MEDS ORDERED: SODIUM CHLORIDE 1,000 ML IV STA (09:59)
[2021-04-23 10:01] LABS: URINE APPEARANCE CLEAR; URINE BILIRUBIN NEGATIVE (NEGATIVE); URINE COLOR YELLOW; URINE GLUCOSE (UA) NEGATIVE (NEGATIVE); URINE KETONE TRACE (NEGATIVE); URINE LEUK ESTERASE NEGATIVE (NEGATIVE); URINE NITRITE NEGATIVE (NEGATIVE); URINE PROTEIN NEGATIVE (NEGATIVE); URINE UROBILINOGEN 0.2 mg/dL (0.2-1.0)
[2021-04-23] MEDS ORDERED: VANCOMYCIN 1 GM in D5W (PRE-DOCKED) 1,000 MG/250 ML IVPB ONE (10:18)
[2021-04-23] MEDS ORDERED: CEFEPIME HCL/D5W 1 GM/50 ML BAG IVPB ONE (10:19)
[2021-04-23] MEDS ORDERED: ASPIRIN 81 MG CHEWABLE TABLETS ONE (11:03)
[2021-04-23] MEDS ORDERED: VANCOMYCIN 1 GRAM (PRE-DOCKED) 1,000 MG/250 ML BAG IVPB ONE (12:04)
[2021-04-23] MEDS ORDERED: ALBUTEROL SO4 2.5/IPRATROPIUM 0.5 INH SOL 3 ML VIAL.NEB. NEB PRN (15:24)
[2021-04-23] MEDS: INSULIN SLIDING SCALE (NOVOLOG) 1 VIAL SQ SCH ×2 (16:50→23:00)
[2021-04-23] MEDS: TAMSULOSIN HCL 0.4 MG CAP PO SCH (22:31)
[2021-04-23] MEDS: SODIUM CHLORIDE 1,000 ML IV SCH (22:33)
[2021-04-23] MEDS: carBAMazepine 200 MG/10 ML UNIT-DOSE CUP GT SCH (22:33)
[2021-04-23] MEDS: APIXABAN 2.5 MG TABLET GT SCH (22:33)
[2021-04-23] MEDS: clonazePAM 0.5 MG TABLET GT SCH (22:33)
[2021-04-23] MEDS: levETIRAcetam 500 MG/5 ML ORAL SOLUTION (UNIT-DOSE CUPS) GT SCH (22:34)
[2021-04-23] MEDS: FAMOTIDINE 40 MG/5 ML ORAL SUSPENSION NGT SCH (22:34)
[2021-04-23] MEDS: BACLOFEN 10 MG TABLET (FP) GT SCH (23:00)
[2021-04-24] MEDS: clonazePAM 0.5 MG TABLET GT SCH ×3 (05:52→22:12)
[2021-04-24] MEDS: BACLOFEN 10 MG TABLET (FP) GT SCH ×4 (05:52→23:12)
[2021-04-24] MEDS: INSULIN SLIDING SCALE (NOVOLOG) 1 VIAL SQ SCH ×4 (06:11→22:26)
[2021-04-24 08:38] LABS: HEMATOCRIT 35.9 % (35.4-49); HEMOGLOBIN 12.1 GM/dL (11.7-16.9); MCH 29.7 pg (25.7-33.7); MCHC 33.8 g/dl (32.0-35.9); MEAN CELL VOLUME 87.8 fl (80-96); MEAN PLT VOLUME 7.3 fl (7.5-11.1); PLATELET COUNT 295 10^3/uL (134-434); RBC 4.09 M/mm3 (4.00-5.60); RDW 13.9 % (11.9-15.9); WHITE BLOOD COUNT 6.6 K/mm3 (4.0-10.0)
[2021-04-24 09:03] LABS: BLOOD UREA NITROGEN 4.5 mg/dL (7-18); CALCIUM 8.1 mg/dL (8.5-10.1); MAGNESIUM 2.2 mg/dL (1.8-2.4)
[2021-04-24 09:07] LABS: CREATININE 0.3 mg/dL (0.55-1.3); PHOSPHOROUS 3.8 mg/dL (2.5-4.9)
[2021-04-24] MEDS ORDERED: PT OWN MED DRAWER 7, Y5N ONE ×2 (09:26→22:02)
[2021-04-24] MEDS ORDERED: ENOXAPARIN NA (PORCINE) 40 MG/0.4 ML DISP.SYRIN SQ SCH (10:00)
[2021-04-24] MEDS: APIXABAN 2.5 MG TABLET GT SCH ×2 (10:03→22:12)
[2021-04-24] MEDS: levETIRAcetam 500 MG/5 ML ORAL SOLUTION (UNIT-DOSE CUPS) GT SCH ×2 (10:04→22:12)
[2021-04-24] MEDS: FAMOTIDINE 40 MG/5 ML ORAL SUSPENSION NGT SCH ×2 (10:05→22:12)
[2021-04-24] MEDS: carBAMazepine 200 MG/10 ML UNIT-DOSE CUP GT SCH ×2 (10:05→22:12)
[2021-04-24] MEDS: CHOLECALCIFEROL (VIT D3) 1,000 UNIT (25 MCG) TABLET GT SCH (10:06)
[2021-04-24] MEDS: SODIUM CHLORIDE 1,000 ML IV SCH ×3 (12:02→22:11)
[2021-04-24] MEDS ORDERED: ALBUTEROL SO4 2.5/IPRATROPIUM 0.5 INH SOL 3 ML VIAL.NEB. NEB PRN (15:32)
[2021-04-24] MEDS ORDERED: PATIENT'S OWN MEDICATION (NON-FORMULARY) (Omeprazole Magnesium [Prilosec] 10 MG Suspdr.Pkt GT SCH (18:00)
[2021-04-24] MEDS: TAMSULOSIN HCL 0.4 MG CAP PO SCH (22:12)
[2021-04-25] MEDS: clonazePAM 0.5 MG TABLET GT SCH ×3 (06:30→21:58)
[2021-04-25] MEDS: BACLOFEN 10 MG TABLET (FP) GT SCH ×4 (06:30→23:44)
[2021-04-25] MEDS: INSULIN SLIDING SCALE (NOVOLOG) 1 VIAL SQ SCH ×4 (06:37→22:28)
[2021-04-25 08:14] LABS: BASO % 0.5 % (0-2.0); EOS % 1.5 % (0-4.5); HEMATOCRIT 37.5 % (35.4-49); LYMPH % 28.1 % (8-40); MCH 30.1 pg (25.7-33.7); MCHC 34.6 g/dl (32.0-35.9); MEAN PLT VOLUME 7.2 fl (7.5-11.1); MONO % 7.6 % (3.8-10.2); NEUT % 62.3 % (42.8-82.8); PLATELET COUNT 315 10^3/uL (134-434); RBC 4.31 M/mm3 (4.00-5.60); RDW 13.8 % (11.9-15.9); WHITE BLOOD COUNT 6.2 K/mm3 (4.0-10.0)
[2021-04-25 08:26] LABS: CHLORIDE 103 mmol/L (98-107); SODIUM 136 mmol/L (136-145)
[2021-04-25 08:29] LABS: CALCIUM 8.4 mg/dL (8.5-10.1)
[2021-04-25 08:30] LABS: ALBUMIN 3.1 g/dl (3.4-5.0); ANION GAP 8 MMOL/L (8-16); CO2 25 mmol/L (21-32); GLUCOSE,RANDOM 102 mg/dL (74-106)
[2021-04-25 08:33] LABS: CREATININE 0.3 mg/dL (0.55-1.3); SGOT/AST 14 U/L (15-37); SGPT/ALT 35 U/L (13-61)
[2021-04-25 08:36] LABS: ALK PHOS 90 U/L (45-117)
[2021-04-25 09:34] LABS: BILIRUBIN,TOTAL 0.2 mg/dL (0.2-1); BLOOD UREA NITROGEN 2.6 mg/dL (7-18)
[2021-04-25] MEDS ORDERED: amLODIPine BESYLATE 5 MG TABLET (FP) GT SCH (10:00)
[2021-04-25 10:30] LABS: PHOSPHOROUS 3.5 mg/dL (2.5-4.9)
[2021-04-25] MEDS ORDERED: PT OWN MED DRAWER 7, Y5N ONE (11:26)
[2021-04-25] MEDS: APIXABAN 2.5 MG TABLET GT SCH ×2 (11:29→21:59)
[2021-04-25] MEDS: POLYETHYLENE GLYCOL (HEALTHYLAX) 3350 17 GM PACKET PO SCH (11:29)
[2021-04-25] MEDS: CHOLECALCIFEROL (VIT D3) 1,000 UNIT (25 MCG) TABLET GT SCH (11:29)
[2021-04-25] MEDS: levETIRAcetam 500 MG/5 ML ORAL SOLUTION (UNIT-DOSE CUPS) GT SCH ×2 (11:30→21:59)
[2021-04-25] MEDS: FAMOTIDINE 40 MG/5 ML ORAL SUSPENSION NGT SCH ×2 (11:31→21:59)
[2021-04-25] MEDS: carBAMazepine 200 MG/10 ML UNIT-DOSE CUP GT SCH ×2 (11:32→21:59)
[2021-04-25] MEDS ORDERED: POTASSIUM PHOSPHATE 30 MM in SODIUM CHLORIDE 500 ML IVPB ONE (13:00)
[2021-04-25] MEDS ORDERED: POTASSIUM CHLORIDE ORAL LIQUID 20 MEQ/15 ML PEG ONE (15:27)
[2021-04-25] MEDS: TAMSULOSIN HCL 0.4 MG CAP PO SCH (22:00)
[2021-04-25] MEDS: SODIUM CHLORIDE 1,000 ML IV SCH (23:43)
[2021-04-26] MEDS: BACLOFEN 10 MG TABLET (FP) GT SCH ×4 (05:50→23:07)
[2021-04-26] MEDS: clonazePAM 0.5 MG TABLET GT SCH ×3 (06:17→22:48)
[2021-04-26] MEDS: INSULIN SLIDING SCALE (NOVOLOG) 1 VIAL SQ SCH ×4 (06:30→23:21)
[2021-04-26 08:34] LABS: BASO % 0.4 % (0-2.0); EOS % 1.3 % (0-4.5); HEMATOCRIT 37.2 % (35.4-49); HEMOGLOBIN 12.8 GM/dL (11.7-16.9); LYMPH % 33.6 % (8-40); MCH 29.6 pg (25.7-33.7); MCHC 34.3 g/dl (32.0-35.9); MEAN CELL VOLUME 86.2 fl (80-96); MEAN PLT VOLUME 6.9 fl (7.5-11.1); MONO % 10.2 % (3.8-10.2); NEUT % 54.5 % (42.8-82.8); PLATELET COUNT 291 10^3/uL (134-434); RBC 4.31 M/mm3 (4.00-5.60); RDW 13.8 % (11.9-15.9); WHITE BLOOD COUNT 6.8 K/mm3 (4.0-10.0)
[2021-04-26 08:53] LABS: CALCIUM 8.3 mg/dL (8.5-10.1)
[2021-04-26 08:54] LABS: MAGNESIUM 2.2 mg/dL (1.8-2.4)
[2021-04-26 08:57] LABS: CREATININE 0.3 mg/dL (0.55-1.3)
[2021-04-26 09:00] LABS: BILIRUBIN,TOTAL 0.3 mg/dL (0.2-1); TOT PROT 6.7 g/dl (6.4-8.2)
[2021-04-26] MEDS ORDERED: PT OWN MED DRAWER 7, Y5N ONE ×2 (11:24→22:41)
[2021-04-26] MEDS: APIXABAN 2.5 MG TABLET GT SCH ×2 (11:31→22:47)
[2021-04-26] MEDS: CHOLECALCIFEROL (VIT D3) 1,000 UNIT (25 MCG) TABLET GT SCH (11:31)
[2021-04-26] MEDS: POLYETHYLENE GLYCOL (HEALTHYLAX) 3350 17 GM PACKET PO SCH (11:32)
[2021-04-26] MEDS: carBAMazepine 200 MG/10 ML UNIT-DOSE CUP GT SCH ×2 (11:33→22:48)
[2021-04-26] MEDS: levETIRAcetam 500 MG/5 ML ORAL SOLUTION (UNIT-DOSE CUPS) GT SCH ×2 (11:35→22:49)
[2021-04-26] MEDS: FAMOTIDINE 40 MG/5 ML ORAL SUSPENSION NGT SCH ×2 (11:36→22:49)
[2021-04-26] MEDS: SODIUM CHLORIDE 1,000 ML IV SCH ×2 (13:38→20:15)
[2021-04-26] MEDS: TAMSULOSIN HCL 0.4 MG CAP PO SCH (22:48)
[2021-04-27] MEDS: SODIUM CHLORIDE 1,000 ML IV SCH ×2 (00:11→13:05)
[2021-04-27] MEDS: BACLOFEN 10 MG TABLET (FP) GT SCH ×3 (05:09→18:04)
[2021-04-27] MEDS: clonazePAM 0.5 MG TABLET GT SCH ×3 (05:09→22:00)
[2021-04-27] MEDS: INSULIN SLIDING SCALE (NOVOLOG) 1 VIAL SQ SCH ×4 (06:02→23:00)
[2021-04-27] MEDS ORDERED: amLODIPine BESYLATE 5 MG TABLET (FP) GT SCH (10:00)
[2021-04-27 10:02] LABS: BASO % 0.6 % (0-2.0); EOS % 3.7 % (0-4.5); HEMATOCRIT 34.6 % (35.4-49); LYMPH % 40.8 % (8-40); MCH 30.1 pg (25.7-33.7); MCHC 34.7 g/dl (32.0-35.9); MEAN CELL VOLUME 86.9 fl (80-96); MEAN PLT VOLUME 7.2 fl (7.5-11.1); MONO % 10.4 % (3.8-10.2); NEUT % 44.5 % (42.8-82.8); PLATELET COUNT 305 10^3/uL (134-434); RBC 3.98 M/mm3 (4.00-5.60); RDW 13.6 % (11.9-15.9); WHITE BLOOD COUNT 4.8 K/mm3 (4.0-10.0)
[2021-04-27 10:34] LABS: BLOOD UREA NITROGEN 5.3 mg/dL (7-18); CALCIUM 7.9 mg/dL (8.5-10.1); MAGNESIUM 2.2 mg/dL (1.8-2.4)
[2021-04-27 10:37] LABS: CREATININE 0.4 mg/dL (0.55-1.3); PHOSPHOROUS 3.7 mg/dL (2.5-4.9)
[2021-04-27] MEDS: POLYETHYLENE GLYCOL (HEALTHYLAX) 3350 17 GM PACKET PO SCH (10:45)
[2021-04-27] MEDS: APIXABAN 2.5 MG TABLET GT SCH ×2 (10:45→22:52)
[2021-04-27] MEDS: CHOLECALCIFEROL (VIT D3) 1,000 UNIT (25 MCG) TABLET GT SCH (10:45)
[2021-04-27] MEDS: levETIRAcetam 500 MG/5 ML ORAL SOLUTION (UNIT-DOSE CUPS) GT SCH ×2 (10:45→22:52)
[2021-04-27] MEDS: FAMOTIDINE 40 MG/5 ML ORAL SUSPENSION NGT SCH ×2 (10:46→22:53)
[2021-04-27] MEDS: carBAMazepine 200 MG/10 ML UNIT-DOSE CUP GT SCH ×2 (10:46→22:53)
[2021-04-27] MEDS ORDERED: PT OWN MED DRAWER 7, Y5N ONE (17:04)
[2021-04-27] MEDS: TAMSULOSIN HCL 0.4 MG CAP PO SCH (22:52)
[2021-04-28] MEDS: BACLOFEN 10 MG TABLET (FP) GT SCH ×4 (01:00→18:06)
[2021-04-28] MEDS: SODIUM CHLORIDE 1,000 ML IV SCH ×2 (01:12→15:33)
[2021-04-28] MEDS: clonazePAM 0.5 MG TABLET GT SCH ×3 (06:00→23:20)
[2021-04-28] MEDS: INSULIN SLIDING SCALE (NOVOLOG) 1 VIAL SQ SCH ×4 (06:45→23:22)
[2021-04-28] MEDS ORDERED: INSULIN (NOVOLOG) ASPART 100 UNITS/ML 10ML VIAL ONE (06:51)
[2021-04-28 07:43] LABS: BASO % 0.4 % (0-2.0); EOS % 1.7 % (0-4.5); HEMATOCRIT 39.1 % (35.4-49); HEMOGLOBIN 13.5 GM/dL (11.7-16.9); LYMPH % 34.6 % (8-40); MCH 29.7 pg (25.7-33.7); MCHC 34.4 g/dl (32.0-35.9); MEAN CELL VOLUME 86.4 fl (80-96); MEAN PLT VOLUME 6.9 fl (7.5-11.1); MONO % 7.7 % (3.8-10.2); NEUT % 55.6 % (42.8-82.8); PLATELET COUNT 337 10^3/uL (134-434); RBC 4.53 M/mm3 (4.00-5.60); RDW 13.8 % (11.9-15.9); WHITE BLOOD COUNT 6.1 K/mm3 (4.0-10.0)
[2021-04-28 08:05] LABS: ALBUMIN 3.4 g/dl (3.4-5.0); CALCIUM 8.4 mg/dL (8.5-10.1); MAGNESIUM 2.2 mg/dL (1.8-2.4)
[2021-04-28 08:08] LABS: CREATININE 0.3 mg/dL (0.55-1.3); PHOSPHOROUS 3.4 mg/dL (2.5-4.9)
[2021-04-28 08:10] LABS: BILIRUBIN,TOTAL 0.2 mg/dL (0.2-1); TOT PROT 7.8 g/dl (6.4-8.2)
[2021-04-28] MEDS ORDERED: PT OWN MED DRAWER 7, Y5N ONE ×2 (09:39→22:34)
[2021-04-28] MEDS: POLYETHYLENE GLYCOL (HEALTHYLAX) 3350 17 GM PACKET PO SCH (09:49)
[2021-04-28] MEDS: APIXABAN 2.5 MG TABLET GT SCH ×2 (09:50→23:19)
[2021-04-28] MEDS: levETIRAcetam 500 MG/5 ML ORAL SOLUTION (UNIT-DOSE CUPS) GT SCH ×2 (09:51→23:22)
[2021-04-28] MEDS: carBAMazepine 200 MG/10 ML UNIT-DOSE CUP GT SCH ×2 (09:51→23:21)
[2021-04-28] MEDS: FAMOTIDINE 40 MG/5 ML ORAL SUSPENSION NGT SCH ×2 (09:51→23:22)
[2021-04-28] MEDS: CHOLECALCIFEROL (VIT D3) 1,000 UNIT (25 MCG) TABLET GT SCH (09:51)
[2021-04-28] MEDS: TAMSULOSIN HCL 0.4 MG CAP PO SCH (23:20)
[2021-04-29] MEDS: BACLOFEN 10 MG TABLET (FP) GT SCH ×3 (00:27→11:06)
[2021-04-29] MEDS: SODIUM CHLORIDE 1,000 ML IV SCH (03:44)
[2021-04-29] MEDS: clonazePAM 0.5 MG TABLET GT SCH (06:20)
[2021-04-29] MEDS: INSULIN SLIDING SCALE (NOVOLOG) 1 VIAL SQ SCH ×2 (06:49→10:53)
[2021-04-29 09:28] VITALS: BP 137/80; PULSE 93; TEMP 98.4
[2021-04-29] MEDS: POLYETHYLENE GLYCOL (HEALTHYLAX) 3350 17 GM PACKET PO SCH (09:30)
[2021-04-29] MEDS: CHOLECALCIFEROL (VIT D3) 1,000 UNIT (25 MCG) TABLET GT SCH (09:30)
[2021-04-29] MEDS: FAMOTIDINE 40 MG/5 ML ORAL SUSPENSION NGT SCH (09:31)
[2021-04-29] MEDS: APIXABAN 2.5 MG TABLET GT SCH (09:31)
[2021-04-29] MEDS: levETIRAcetam 500 MG/5 ML ORAL SOLUTION (UNIT-DOSE CUPS) GT SCH (09:32)
[2021-04-29] MEDS: carBAMazepine 200 MG/10 ML UNIT-DOSE CUP GT SCH (09:32)
[2021-04-29] MEDS ORDERED: MULTIVIT-MINERALS ORAL LIQUID PO SCH (10:00)
== END 2021-04-29 13:31 | disposition home or self-care (01) | DRG 720 ==
LOC: JER 05:52 → JERBED 13:27 → J7W 14:25
PROVIDERS: ADMIT Internal Medicine; ATTEND Internal Medicine
DX: A41.89 Other specified sepsis (principal); R65.21 Severe sepsis with septic shock; R53.2 Functional quadriplegia; G31.84 Mild cognitive impairment of uncertain or unknown etiology; I10 Essential (primary) hypertension; I95.9 Hypotension, unspecified; J45.909 Unspecified asthma, uncomplicated; N40.0 Benign prostatic hyperplasia without lower urinary tract symptoms; G80.9 Cerebral palsy, unspecified; E87.1 Hypo-osmolality and hyponatremia; G40.909 Epilepsy, unspecified, not intractable, without status epilepticus; M41.9 Scoliosis, unspecified; E87.6 Hypokalemia; R62.50 Unspecified lack of expected normal physiological development in childhood; Q02 Microcephaly; J96.01 Acute respiratory failure with hypoxia; J69.0 Pneumonitis due to inhalation of food and vomit; I24.8 Other forms of acute ischemic heart disease; R50.9 Fever, unspecified; Z79.2 Long term (current) use of antibiotics; Z86.718 Personal history of other venous thrombosis and embolism
CPT/HCPCS: 36415; 71045-TC-FY; 80048; 80053; 81003; 82550; 82553; 82962; 83036; 83605; 83735; 84100; 84484; 85025; 85027; 85610; 85730; 87040; 87086; 87804; 87807; 87899; 93005; 93010; 93306-TC; 97161-GP; 99285-25; C9803; J0131; J0475; U0003; U0005

== ENCOUNTER 2021-06-24 17:13 | Inpatient (IN) | payer OTHER ==
[2021-06-24 17:41] VITALS: BMI 22.0
[2021-06-24] MEDS: SODIUM CHLORIDE IV ONE ×2 (18:10→19:07)
[2021-06-24 18:22] LABS: VENOUS BASE EXCESS 0.9 mmol/L (-2-2); VENOUS O2 SATURATION 40.2 % (70-80); VENOUS PCO2 57.2 mmHg (38-52); VENOUS PH 7.314 (7.310-7.410)
[2021-06-24 18:25] LABS: BASO % 0.5 % (0-2.0); EOS % 1.7 % (0-4.5); HEMATOCRIT 41.2 % (35.4-49); HEMOGLOBIN 14.1 GM/dL (11.7-16.9); LYMPH % 44.6 % (8-40); MCH 29.2 pg (25.7-33.7); MCHC 34.1 g/dl (32.0-35.9); MEAN CELL VOLUME 85.7 fl (80-96); MEAN PLT VOLUME 6.8 fl (7.5-11.1); MONO % 9.2 % (3.8-10.2); PLATELET COUNT 262 10^3/uL (134-434); RBC 4.81 M/mm3 (4.00-5.60); RDW 14.5 % (11.9-15.9); WHITE BLOOD COUNT 6.4 K/mm3 (4.0-10.0)
[2021-06-24 18:32] LABS: INR 1.15 (0.83-1.09); PROTHROMBIN TIME (PATIENT) 13.5 SEC (9.7-13.0)
[2021-06-24 18:35] LABS: ACTIVATED PTT 39.6 SECONDS (25.2-36.5)
[2021-06-24] MEDS ORDERED: ALBUTEROL SO4 2.5/IPRATROPIUM 0.5 INH SOL 3 ML VIAL.NEB. NEB ONE (18:39)
[2021-06-24] MEDS ORDERED: PIPERACILLIN/TAZOB 4.5 GM 4.5 GM in DEXTROSE 5%-WATER 100 ML IVPB ONE (18:41)
[2021-06-24] MEDS ORDERED: VANCOMYCIN 1 GM in D5W (PRE-DOCKED) 1,000 MG/250 ML IVPB ONE (18:41)
[2021-06-24 18:49] LABS: CHLORIDE 94 mmol/L (98-107); SODIUM 130 mmol/L (136-145)
[2021-06-24] MEDS ORDERED: SODIUM CHLORIDE 1,000 ML IV STA (18:49)
[2021-06-24] MEDS: ALBUTEROL SO4 2.5/IPRATROPIUM 0.5 INH SOL 3 ML VIAL.NEB. NEB SCH ×4 (18:50→19:35)
[2021-06-24 18:51] LABS: ALBUMIN 3.4 g/dl (3.4-5.0); ANION GAP 9 MMOL/L (8-16); BLOOD UREA NITROGEN 4.7 mg/dL (7-18); CALCIUM 9.1 mg/dL (8.5-10.1); CO2 27 mmol/L (21-32)
[2021-06-24 18:52] LABS: GLUCOSE,RANDOM 78 mg/dL (74-106)
[2021-06-24 18:54] LABS: SGOT/AST 15 U/L (15-37); SGPT/ALT 34 U/L (13-61)
[2021-06-24 18:55] LABS: CREATININE 0.4 mg/dL (0.55-1.3)
[2021-06-24 18:56] LABS: BILIRUBIN,TOTAL 0.2 mg/dL (0.2-1); TOT PROT 8.4 g/dl (6.4-8.2)
[2021-06-24 18:57] LABS: ALK PHOS 136 U/L (45-117)
[2021-06-24] MEDS ORDERED: PIPERACILLIN/TAZOB 4.5 GM 4.5 GM/100 ML BAG IVPB ONE (19:10)
[2021-06-24] MEDS ORDERED: VANCOMYCIN 1 GRAM (PRE-DOCKED) 1,000 MG/250 ML BAG IVPB ONE (20:26)
[2021-06-24 20:46] LABS: PH,URINE 7.5 (5.0-8.0); URINE APPEARANCE CLEAR; URINE BILIRUBIN NEGATIVE (NEGATIVE); URINE COLOR YELLOW; URINE GLUCOSE (UA) NEGATIVE (NEGATIVE); URINE KETONE NEGATIVE (NEGATIVE); URINE LEUK ESTERASE NEGATIVE (NEGATIVE); URINE NITRITE NEGATIVE (NEGATIVE); URINE PROTEIN NEGATIVE (NEGATIVE); URINE UROBILINOGEN 0.2 mg/dL (0.2-1.0)
[2021-06-24 23:06] LABS: BLOOD UREA NITROGEN 3.8 mg/dL (7-18); CALCIUM 7.8 mg/dL (8.5-10.1)
[2021-06-24 23:10] LABS: CREATININE 0.3 mg/dL (0.55-1.3)
[2021-06-24] MEDS ORDERED: POTASSIUM CHLORIDE ORAL LIQUID 20 MEQ/15 ML PEG ONE (23:19)
[2021-06-24] MEDS ORDERED: POTASSIUM CHLORIDE ORAL LIQUID 20 MEQ/15 ML ONE (23:30)
[2021-06-25 00:35] LABS: ARTERIAL BLD GAS O2 SATURATION 97.8 % (95-98); ARTERIAL BLOOD GAS BASE EXCESS -1.3 mmol/L (-2-2); ARTERIAL BLOOD GAS PO2 102.3 mmHg (80-100); ARTERIAL BLOOD GAS pH 7.414 (7.350-7.450)
[2021-06-25] MEDS ORDERED: ALBUTEROL SO4 2.5/IPRATROPIUM 0.5 INH SOL 3 ML VIAL.NEB. NEB ONE (01:13)
[2021-06-25] MEDS ORDERED: METOPROLOL TARTRATE 5 MG/5 ML VIAL IVPUSH ONE ×2 (01:18→06:23)
[2021-06-25] MEDS: ALBUTEROL SO4 2.5/IPRATROPIUM 0.5 INH SOL 3 ML VIAL.NEB. NEB SCH ×4 (01:31→15:39)
[2021-06-25] MEDS ORDERED: METOPROLOL TARTRATE 5 MG/5 ML VIAL ONE ×2 (01:32→06:26)
[2021-06-25] MEDS ORDERED: PIPERACILLIN/TAZOB 2.25 GM 2.25 GM/50 ML BAG IVPB ONE (06:26)
[2021-06-25] MEDS: PIPERACILLIN/TAZOB 2.25 GM 2.25 GM in DEXTROSE 5%-WATER - 50 ML IVPB SCH ×2 (06:29→11:26)
[2021-06-25 06:42] LABS: HEMOGLOBIN 14.5 GM/dL (11.7-16.9); MCH 29.7 pg (25.7-33.7); MCHC 34.6 g/dl (32.0-35.9); MEAN CELL VOLUME 85.6 fl (80-96); MEAN PLT VOLUME 7.4 fl (7.5-11.1); PLATELET COUNT 298 10^3/uL (134-434); RBC 4.91 M/mm3 (4.00-5.60); RDW 14.5 % (11.9-15.9); WHITE BLOOD COUNT 6.9 K/mm3 (4.0-10.0)
[2021-06-25 07:12] LABS: BLOOD UREA NITROGEN 3.4 mg/dL (7-18); CALCIUM 8.7 mg/dL (8.5-10.1); MAGNESIUM 2.2 mg/dL (1.8-2.4)
[2021-06-25 07:13] LABS: ALBUMIN 3.6 g/dl (3.4-5.0)
[2021-06-25 07:15] LABS: CREATININE 0.4 mg/dL (0.55-1.3)
[2021-06-25 07:16] LABS: PHOSPHOROUS 3.1 mg/dL (2.5-4.9)
[2021-06-25 07:17] LABS: BILIRUBIN,TOTAL 0.3 mg/dL (0.2-1); TOT PROT 8.4 g/dl (6.4-8.2)
[2021-06-25] MEDS ORDERED: clonazePAM 0.5 MG TABLET GT SCH (09:00)
[2021-06-25] MEDS ORDERED: APIXABAN 2.5 MG TABLET PO SCH (10:00)
[2021-06-25] MEDS ORDERED: carBAMazepine 200 MG/10 ML UNIT-DOSE CUP PO SCH (10:00)
[2021-06-25] MEDS ORDERED: carBAMazepine 100 MG/5 ML UNIT-DOSE CUP GT SCH (11:19)
[2021-06-25] MEDS ORDERED: DEXTROSE 5%-WATER - 50 ML IVPB ONE (11:23)
[2021-06-25] MEDS ORDERED: PIPERACILLIN/TAZOBACTAM 2.25 GM VIAL IVPB ONE (11:23)
[2021-06-25] MEDS: methylPREDNISolone NA SUCC 40 MG/1 ML VIAL IVPUSH SCH (11:26)
[2021-06-25] MEDS: APIXABAN 2.5 MG TABLET GT SCH ×2 (11:27→22:19)
[2021-06-25] MEDS: carBAMazepine 100 MG/5 ML UNIT-DOSE CUP PO SCH ×2 (11:27→11:34)
[2021-06-25] MEDS: TAMSULOSIN HCL 0.4 MG CAP NR SCH (11:27)
[2021-06-25] MEDS: amLODIPine BESYLATE 5 MG TABLET (FP) GT SCH (11:27)
[2021-06-25] MEDS: METOPROLOL TARTRATE 25 MG TABLET (FP) GT SCH ×2 (11:28→22:20)
[2021-06-25] MEDS ORDERED: PT OWN MED DRAWER 7, Y5N ONE ×2 (11:29→21:57)
[2021-06-25] MEDS: CHOLECALCIFEROL (VIT D SOLUTION) 400 UNIT/1 ML DROPS GT SCH (11:29)
[2021-06-25] MEDS: PANTOPRAZOLE SODIUM 40 MG VIAL IVPUSH SCH (11:29)
[2021-06-25] MEDS: carBAMazepine 100 MG/5 ML UNIT-DOSE CUP GT SCH ×2 (11:34→22:20)
[2021-06-25] MEDS: BUDESONIDE/FORMETEROL FUMARATE 80/4.5 mcg INHALER IH SCH ×3 (13:28→22:20)
[2021-06-25] MEDS: BACLOFEN 10 MG TABLET (FP) GT SCH ×2 (13:28→17:40)
[2021-06-25] MEDS: clonazePAM 0.5 MG TABLET GT SCH ×2 (13:29→22:19)
[2021-06-25] MEDS: levETIRAcetam 500 MG/5 ML ORAL SOLUTION (UNIT-DOSE CUPS) GT SCH ×2 (13:29→22:20)
[2021-06-25] MEDS: SODIUM CHLORIDE 1,000 ML IV SCH (13:41)
[2021-06-25] MEDS ORDERED: PIPERACILLIN/TAZOBACTAM 4.5 GM VIAL IVPB ONE (17:25)
[2021-06-25] MEDS ORDERED: DEXTROSE 5%-WATER 100 ML IVPB ONE (17:26)
[2021-06-25] MEDS: PIPERACILLIN/TAZOB 4.5 GM 4.5 GM in DEXTROSE 5%-WATER 100 ML IVPB SCH (17:39)
[2021-06-25] MEDS ORDERED: ACETAMINOPHEN 1000 MG/100 ML VIAL IVPB ONE (17:44)
[2021-06-25] MEDS ORDERED: ACETAMINOPHEN INJECTION 100 ML IVPB ONE (17:48)
[2021-06-25] MEDS: IPRATROPIUM BR 0.02% 0.5 MG/2.5 ML VIAL.NEB. NEB SCH (20:40)
[2021-06-25] MEDS ORDERED: LEVALBUTEROL HCL 0.63 MG/3 ML VIAL.NEB. IH PRN (22:30)
[2021-06-26] MEDS: BACLOFEN 10 MG TABLET (FP) GT SCH ×4 (00:06→17:37)
[2021-06-26] MEDS ORDERED: DEXTROSE 5%-WATER 100 ML IVPB ONE ×3 (01:23→16:44)
[2021-06-26] MEDS ORDERED: PIPERACILLIN/TAZOBACTAM 4.5 GM VIAL IVPB ONE ×3 (01:23→16:44)
[2021-06-26] MEDS: PIPERACILLIN/TAZOB 4.5 GM 4.5 GM in DEXTROSE 5%-WATER 100 ML IVPB SCH ×3 (01:37→17:36)
[2021-06-26] MEDS: clonazePAM 0.5 MG TABLET GT SCH ×3 (05:29→21:50)
[2021-06-26 06:43] LABS: HEMATOCRIT 37.1 % (35.4-49); HEMOGLOBIN 13.1 GM/dL (11.7-16.9); MCH 30.2 pg (25.7-33.7); MCHC 35.3 g/dl (32.0-35.9); MEAN CELL VOLUME 85.4 fl (80-96); MEAN PLT VOLUME 7.3 fl (7.5-11.1); PLATELET COUNT 271 10^3/uL (134-434); RBC 4.35 M/mm3 (4.00-5.60); RDW 14.5 % (11.9-15.9); WHITE BLOOD COUNT 9.2 K/mm3 (4.0-10.0)
[2021-06-26 06:55] LABS: CALCIUM 8.5 mg/dL (8.5-10.1)
[2021-06-26 06:56] LABS: BLOOD UREA NITROGEN 5.5 mg/dL (7-18)
[2021-06-26 06:59] LABS: CREATININE 0.4 mg/dL (0.55-1.3)
[2021-06-26] MEDS: IPRATROPIUM BR 0.02% 0.5 MG/2.5 ML VIAL.NEB. NEB SCH ×3 (07:56→20:05)
[2021-06-26] MEDS ORDERED: PT OWN MED DRAWER 7, Y5N ONE ×5 (08:42→22:40)
[2021-06-26] MEDS: methylPREDNISolone NA SUCC 40 MG/1 ML VIAL IVPUSH SCH (09:54)
[2021-06-26] MEDS: TAMSULOSIN HCL 0.4 MG CAP NR SCH (09:54)
[2021-06-26] MEDS: PANTOPRAZOLE SODIUM 40 MG VIAL IVPUSH SCH (09:54)
[2021-06-26] MEDS: APIXABAN 2.5 MG TABLET GT SCH ×2 (09:55→21:50)
[2021-06-26] MEDS: METOPROLOL TARTRATE 25 MG TABLET (FP) GT SCH ×2 (09:55→21:51)
[2021-06-26] MEDS: amLODIPine BESYLATE 5 MG TABLET (FP) GT SCH (09:56)
[2021-06-26] MEDS: CHOLECALCIFEROL (VIT D SOLUTION) 400 UNIT/1 ML DROPS GT SCH (09:56)
[2021-06-26] MEDS: levETIRAcetam 500 MG/5 ML ORAL SOLUTION (UNIT-DOSE CUPS) GT SCH ×2 (09:57→21:50)
[2021-06-26] MEDS: BUDESONIDE/FORMETEROL FUMARATE 80/4.5 mcg INHALER IH SCH ×2 (09:57→21:52)
[2021-06-26] MEDS: carBAMazepine 100 MG/5 ML UNIT-DOSE CUP GT SCH ×2 (09:58→21:50)
[2021-06-26] MEDS ORDERED: ACETAMINOPHEN 1000 MG/100 ML VIAL IVPB PRN (13:33)
[2021-06-26] MEDS: KCL 10 MEQ IVPB 10 MEQ/100 ML INFUS.BAG IVPB SCH ×3 (14:24→16:52)
[2021-06-26] MEDS: SODIUM CHLORIDE 1,000 ML IV SCH ×2 (14:24→22:04)
[2021-06-27] MEDS ORDERED: PIPERACILLIN/TAZOBACTAM 4.5 GM VIAL IVPB ONE ×3 (00:52→17:03)
[2021-06-27] MEDS ORDERED: DEXTROSE 5%-WATER 100 ML IVPB ONE ×3 (00:52→17:03)
[2021-06-27] MEDS: BACLOFEN 10 MG TABLET (FP) GT SCH ×4 (00:59→17:37)
[2021-06-27] MEDS: PIPERACILLIN/TAZOB 4.5 GM 4.5 GM in DEXTROSE 5%-WATER 100 ML IVPB SCH ×3 (01:00→17:37)
[2021-06-27] MEDS: clonazePAM 0.5 MG TABLET GT SCH ×3 (05:42→22:06)
[2021-06-27] MEDS: IPRATROPIUM BR 0.02% 0.5 MG/2.5 ML VIAL.NEB. NEB SCH ×3 (07:30→20:10)
[2021-06-27 07:41] LABS: HEMATOCRIT 33.1 % (35.4-49); HEMOGLOBIN 11.5 GM/dL (11.7-16.9); MCHC 34.7 g/dl (32.0-35.9); MEAN CELL VOLUME 86.4 fl (80-96); PLATELET COUNT 259 10^3/uL (134-434); RBC 3.83 M/mm3 (4.00-5.60); RDW 14.5 % (11.9-15.9); WHITE BLOOD COUNT 9.5 K/mm3 (4.0-10.0)
[2021-06-27 07:58] LABS: CALCIUM 8.5 mg/dL (8.5-10.1)
[2021-06-27 07:59] LABS: BLOOD UREA NITROGEN 3.4 mg/dL (7-18)
[2021-06-27 08:00] LABS: MAGNESIUM 1.5 mg/dL (1.8-2.4)
[2021-06-27 08:02] LABS: CREATININE 0.3 mg/dL (0.55-1.3); PHOSPHOROUS 3.5 mg/dL (2.5-4.9)
[2021-06-27] MEDS ORDERED: MAGNESIUM SULF 50% (8.12 MEQ/2 ML-1 GM VIAL) IVPB ONE (08:54)
[2021-06-27] MEDS ORDERED: POTASSIUM CHLORIDE ORAL LIQUID 20 MEQ/15 ML PO ONE (09:15)
[2021-06-27] MEDS ORDERED: PT OWN MED DRAWER 7, Y5N ONE ×3 (09:37→22:05)
[2021-06-27] MEDS: TAMSULOSIN HCL 0.4 MG CAP NR SCH (09:48)
[2021-06-27] MEDS: PANTOPRAZOLE SODIUM 40 MG VIAL IVPUSH SCH (09:50)
[2021-06-27] MEDS: carBAMazepine 100 MG/5 ML UNIT-DOSE CUP GT SCH ×2 (09:52→22:06)
[2021-06-27] MEDS: levETIRAcetam 500 MG/5 ML ORAL SOLUTION (UNIT-DOSE CUPS) GT SCH ×2 (09:52→22:06)
[2021-06-27] MEDS: CHOLECALCIFEROL (VIT D SOLUTION) 400 UNIT/1 ML DROPS GT SCH (09:52)
[2021-06-27] MEDS: METOPROLOL TARTRATE 25 MG TABLET (FP) GT SCH ×2 (09:53→22:05)
[2021-06-27] MEDS: predniSONE 20 MG TABLET (UD) GT SCH (09:53)
[2021-06-27] MEDS: amLODIPine BESYLATE 5 MG TABLET (FP) GT SCH (09:54)
[2021-06-27] MEDS: APIXABAN 2.5 MG TABLET GT SCH ×2 (09:54→22:06)
[2021-06-27] MEDS: BUDESONIDE/FORMETEROL FUMARATE 80/4.5 mcg INHALER IH SCH ×2 (09:54→22:07)
[2021-06-27] MEDS: SODIUM CHLORIDE 1,000 ML IV SCH (13:22)
[2021-06-28] MEDS ORDERED: DEXTROSE 5%-WATER 100 ML IVPB ONE ×3 (00:38→18:15)
[2021-06-28] MEDS ORDERED: PIPERACILLIN/TAZOBACTAM 4.5 GM VIAL IVPB ONE ×3 (00:38→18:15)
[2021-06-28] MEDS: BACLOFEN 10 MG TABLET (FP) GT SCH ×4 (00:59→18:27)
[2021-06-28] MEDS: PIPERACILLIN/TAZOB 4.5 GM 4.5 GM in DEXTROSE 5%-WATER 100 ML IVPB SCH ×3 (01:00→18:24)
[2021-06-28] MEDS: clonazePAM 0.5 MG TABLET GT SCH ×3 (05:45→21:48)
[2021-06-28] MEDS: IPRATROPIUM BR 0.02% 0.5 MG/2.5 ML VIAL.NEB. NEB SCH ×3 (07:30→20:26)
[2021-06-28 07:36] LABS: BLOOD UREA NITROGEN 5.4 mg/dL (7-18); HEMATOCRIT 36.8 % (35.4-49); HEMOGLOBIN 12.5 GM/dL (11.7-16.9); MAGNESIUM 1.8 mg/dL (1.8-2.4); MCH 29.3 pg (25.7-33.7); MCHC 33.8 g/dl (32.0-35.9); MEAN CELL VOLUME 86.6 fl (80-96); MEAN PLT VOLUME 7.3 fl (7.5-11.1); PLATELET COUNT 294 10^3/uL (134-434); RBC 4.25 M/mm3 (4.00-5.60); RDW 14.8 % (11.9-15.9); WHITE BLOOD COUNT 9.1 K/mm3 (4.0-10.0)
[2021-06-28 07:39] LABS: CREATININE 0.3 mg/dL (0.55-1.3)
[2021-06-28 07:40] LABS: PHOSPHOROUS 3.3 mg/dL (2.5-4.9)
[2021-06-28] MEDS ORDERED: PT OWN MED DRAWER 7, Y5N ONE ×6 (09:32→21:42)
[2021-06-28] MEDS: TAMSULOSIN HCL 0.4 MG CAP NR SCH (10:04)
[2021-06-28] MEDS: PANTOPRAZOLE SODIUM 40 MG VIAL IVPUSH SCH (10:05)
[2021-06-28] MEDS: levETIRAcetam 500 MG/5 ML ORAL SOLUTION (UNIT-DOSE CUPS) GT SCH ×2 (10:08→21:47)
[2021-06-28] MEDS: predniSONE 20 MG TABLET (UD) GT SCH (10:08)
[2021-06-28] MEDS: CHOLECALCIFEROL (VIT D SOLUTION) 400 UNIT/1 ML DROPS GT SCH (10:09)
[2021-06-28] MEDS: carBAMazepine 100 MG/5 ML UNIT-DOSE CUP GT SCH ×2 (10:09→21:47)
[2021-06-28] MEDS: METOPROLOL TARTRATE 25 MG TABLET (FP) GT SCH ×2 (10:09→21:48)
[2021-06-28] MEDS: APIXABAN 2.5 MG TABLET GT SCH ×2 (10:09→21:47)
[2021-06-28] MEDS: amLODIPine BESYLATE 5 MG TABLET (FP) GT SCH (10:09)
[2021-06-28] MEDS: BUDESONIDE/FORMETEROL FUMARATE 80/4.5 mcg INHALER IH SCH ×2 (10:10→21:49)
[2021-06-28] MEDS ORDERED: LEVALBUTEROL HCL 0.63 MG/3 ML VIAL.NEB. IH PRN (17:00)
[2021-06-29] MEDS: BACLOFEN 10 MG TABLET (FP) GT SCH ×5 (00:10→23:06)
[2021-06-29] MEDS: PIPERACILLIN/TAZOB 4.5 GM 4.5 GM in DEXTROSE 5%-WATER 100 ML IVPB SCH ×3 (02:23→18:15)
[2021-06-29] MEDS ORDERED: PIPERACILLIN/TAZOBACTAM 4.5 GM VIAL IVPB ONE ×3 (02:24→17:14)
[2021-06-29] MEDS ORDERED: DEXTROSE 5%-WATER 100 ML IVPB ONE ×3 (02:24→17:14)
[2021-06-29] MEDS: clonazePAM 0.5 MG TABLET GT SCH ×3 (05:40→21:43)
[2021-06-29] MEDS: TAMSULOSIN HCL 0.4 MG CAP NR SCH (08:14)
[2021-06-29] MEDS: IPRATROPIUM BR 0.02% 0.5 MG/2.5 ML VIAL.NEB. NEB SCH ×3 (08:55→20:10)
[2021-06-29] MEDS ORDERED: PT OWN MED DRAWER 7, Y5N ONE (10:07)
[2021-06-29] MEDS: APIXABAN 2.5 MG TABLET GT SCH ×2 (10:16→21:44)
[2021-06-29] MEDS: amLODIPine BESYLATE 5 MG TABLET (FP) GT SCH (10:16)
[2021-06-29] MEDS: predniSONE 20 MG TABLET (UD) GT SCH (10:16)
[2021-06-29] MEDS: PANTOPRAZOLE SODIUM 40 MG VIAL IVPUSH SCH (10:16)
[2021-06-29] MEDS: METOPROLOL TARTRATE 25 MG TABLET (FP) GT SCH ×2 (10:16→21:47)
[2021-06-29] MEDS: carBAMazepine 100 MG/5 ML UNIT-DOSE CUP GT SCH ×2 (10:19→21:45)
[2021-06-29] MEDS: levETIRAcetam 500 MG/5 ML ORAL SOLUTION (UNIT-DOSE CUPS) GT SCH ×2 (10:20→21:44)
[2021-06-29] MEDS: CHOLECALCIFEROL (VIT D SOLUTION) 400 UNIT/1 ML DROPS GT SCH (10:20)
[2021-06-29] MEDS: BUDESONIDE/FORMETEROL FUMARATE 80/4.5 mcg INHALER IH SCH ×2 (10:20→21:47)
[2021-06-29 10:21] LABS: HEMATOCRIT 37.9 % (35.4-49); HEMOGLOBIN 12.9 GM/dL (11.7-16.9); MCH 29.4 pg (25.7-33.7); MCHC 33.9 g/dl (32.0-35.9); MEAN CELL VOLUME 86.7 fl (80-96); MEAN PLT VOLUME 7.3 fl (7.5-11.1); PLATELET COUNT 307 10^3/uL (134-434); RBC 4.37 M/mm3 (4.00-5.60); RDW 14.7 % (11.9-15.9); WHITE BLOOD COUNT 7.6 K/mm3 (4.0-10.0)
[2021-06-29 10:44] LABS: CALCIUM 8.8 mg/dL (8.5-10.1)
[2021-06-29 10:45] LABS: BLOOD UREA NITROGEN 5.6 mg/dL (7-18); MAGNESIUM 2.4 mg/dL (1.8-2.4)
[2021-06-29 10:48] LABS: CREATININE 0.3 mg/dL (0.55-1.3); PHOSPHOROUS 3.8 mg/dL (2.5-4.9)
[2021-06-30] MEDS ORDERED: DEXTROSE 5%-WATER 100 ML IVPB ONE ×3 (00:56→16:33)
[2021-06-30] MEDS ORDERED: PIPERACILLIN/TAZOBACTAM 4.5 GM VIAL IVPB ONE ×3 (00:56→16:33)
[2021-06-30] MEDS: PIPERACILLIN/TAZOB 4.5 GM 4.5 GM in DEXTROSE 5%-WATER 100 ML IVPB SCH ×3 (01:17→17:08)
[2021-06-30] MEDS: clonazePAM 0.5 MG TABLET GT SCH ×3 (06:11→21:14)
[2021-06-30] MEDS: BACLOFEN 10 MG TABLET (FP) GT SCH ×4 (06:14→23:12)
[2021-06-30] MEDS: IPRATROPIUM BR 0.02% 0.5 MG/2.5 ML VIAL.NEB. NEB SCH ×3 (07:39→20:57)
[2021-06-30 08:40] LABS: HEMATOCRIT 37.8 % (35.4-49); HEMOGLOBIN 12.9 GM/dL (11.7-16.9); MCH 29.9 pg (25.7-33.7); MCHC 34.3 g/dl (32.0-35.9); MEAN CELL VOLUME 87.3 fl (80-96); MEAN PLT VOLUME 7.1 fl (7.5-11.1); PLATELET COUNT 305 10^3/uL (134-434); RBC 4.33 M/mm3 (4.00-5.60); RDW 14.8 % (11.9-15.9); WHITE BLOOD COUNT 7.6 K/mm3 (4.0-10.0)
[2021-06-30 09:05] LABS: CALCIUM 8.9 mg/dL (8.5-10.1)
[2021-06-30 09:06] LABS: BLOOD UREA NITROGEN 8.4 mg/dL (7-18)
[2021-06-30 09:09] LABS: CREATININE 0.3 mg/dL (0.55-1.3); PHOSPHOROUS 4.6 mg/dL (2.5-4.9)
[2021-06-30 09:22] LABS: MAGNESIUM 2.4 mg/dL (1.8-2.4)
[2021-06-30] MEDS: PANTOPRAZOLE SODIUM 40 MG VIAL IVPUSH SCH (10:40)
[2021-06-30] MEDS: amLODIPine BESYLATE 5 MG TABLET (FP) GT SCH (10:41)
[2021-06-30] MEDS: TAMSULOSIN HCL 0.4 MG CAP NR SCH (10:41)
[2021-06-30] MEDS: predniSONE 20 MG TABLET (UD) GT SCH (10:41)
[2021-06-30] MEDS: APIXABAN 2.5 MG TABLET GT SCH ×2 (10:41→21:13)
[2021-06-30] MEDS: METOPROLOL TARTRATE 25 MG TABLET (FP) GT SCH ×2 (10:41→21:13)
[2021-06-30] MEDS: levETIRAcetam 500 MG/5 ML ORAL SOLUTION (UNIT-DOSE CUPS) GT SCH ×2 (10:42→21:13)
[2021-06-30] MEDS: carBAMazepine 100 MG/5 ML UNIT-DOSE CUP GT SCH ×2 (10:43→21:13)
[2021-06-30] MEDS: BUDESONIDE/FORMETEROL FUMARATE 80/4.5 mcg INHALER IH SCH ×2 (10:43→23:13)
[2021-06-30] MEDS: CHOLECALCIFEROL (VIT D SOLUTION) 400 UNIT/1 ML DROPS GT SCH (10:43)
[2021-07-01] MEDS ORDERED: PIPERACILLIN/TAZOBACTAM 4.5 GM VIAL IVPB ONE ×3 (01:11→15:09)
[2021-07-01] MEDS ORDERED: DEXTROSE 5%-WATER 100 ML IVPB ONE ×3 (01:12→15:09)
[2021-07-01] MEDS: PIPERACILLIN/TAZOB 4.5 GM 4.5 GM in DEXTROSE 5%-WATER 100 ML IVPB SCH ×3 (01:20→17:31)
[2021-07-01] MEDS: BACLOFEN 10 MG TABLET (FP) GT SCH ×4 (05:31→23:07)
[2021-07-01] MEDS: clonazePAM 0.5 MG TABLET GT SCH ×3 (05:31→21:03)
[2021-07-01] MEDS: IPRATROPIUM BR 0.02% 0.5 MG/2.5 ML VIAL.NEB. NEB SCH ×3 (07:25→20:18)
[2021-07-01 07:31] LABS: HEMATOCRIT 35.6 % (35.4-49); HEMOGLOBIN 12.2 GM/dL (11.7-16.9); MCH 29.2 pg (25.7-33.7); MCHC 34.3 g/dl (32.0-35.9); MEAN CELL VOLUME 85.1 fl (80-96); PLATELET COUNT 343 10^3/uL (134-434); RBC 4.18 M/mm3 (4.00-5.60); RDW 14.6 % (11.9-15.9); WHITE BLOOD COUNT 11.4 K/mm3 (4.0-10.0)
[2021-07-01 07:51] LABS: CALCIUM 8.6 mg/dL (8.5-10.1)
[2021-07-01 07:55] LABS: CREATININE 0.4 mg/dL (0.55-1.3)
[2021-07-01] MEDS: PANTOPRAZOLE SODIUM 40 MG VIAL IVPUSH SCH (09:44)
[2021-07-01] MEDS: METOPROLOL TARTRATE 25 MG TABLET (FP) GT SCH ×2 (09:46→21:03)
[2021-07-01] MEDS: TAMSULOSIN HCL 0.4 MG CAP NR SCH (09:46)
[2021-07-01] MEDS: amLODIPine BESYLATE 5 MG TABLET (FP) GT SCH (09:46)
[2021-07-01] MEDS: APIXABAN 2.5 MG TABLET GT SCH ×2 (09:47→21:03)
[2021-07-01] MEDS: predniSONE 20 MG TABLET (UD) GT SCH (09:47)
[2021-07-01] MEDS: carBAMazepine 100 MG/5 ML UNIT-DOSE CUP GT SCH ×2 (09:48→23:16)
[2021-07-01] MEDS: levETIRAcetam 500 MG/5 ML ORAL SOLUTION (UNIT-DOSE CUPS) GT SCH ×2 (09:49→21:01)
[2021-07-01] MEDS: CHOLECALCIFEROL (VIT D SOLUTION) 400 UNIT/1 ML DROPS GT SCH (09:50)
[2021-07-01] MEDS: BUDESONIDE/FORMETEROL FUMARATE 80/4.5 mcg INHALER IH SCH ×2 (09:50→21:09)
[2021-07-02] MEDS ORDERED: PIPERACILLIN/TAZOBACTAM 4.5 GM VIAL IVPB ONE ×2 (00:44→08:39)
[2021-07-02] MEDS ORDERED: DEXTROSE 5%-WATER 100 ML IVPB ONE ×2 (00:45→08:39)
[2021-07-02] MEDS ORDERED: ACETAMINOPHEN 1000 MG/100 ML VIAL IVPB ONE (00:48)
[2021-07-02] MEDS: PIPERACILLIN/TAZOB 4.5 GM 4.5 GM in DEXTROSE 5%-WATER 100 ML IVPB SCH ×3 (01:21→12:54)
[2021-07-02] MEDS: clonazePAM 0.5 MG TABLET GT SCH ×3 (05:41→21:15)
[2021-07-02] MEDS: BACLOFEN 10 MG TABLET (FP) GT SCH ×4 (05:42→23:45)
[2021-07-02 06:34] LABS: HEMATOCRIT 38.5 % (35.4-49); HEMOGLOBIN 13.5 GM/dL (11.7-16.9); MCH 29.6 pg (25.7-33.7); MCHC 35.1 g/dl (32.0-35.9); MEAN CELL VOLUME 84.2 fl (80-96); MEAN PLT VOLUME 6.9 fl (7.5-11.1); PLATELET COUNT 361 10^3/uL (134-434); RBC 4.57 M/mm3 (4.00-5.60); RDW 14.8 % (11.9-15.9); WHITE BLOOD COUNT 8.4 K/mm3 (4.0-10.0)
[2021-07-02 06:52] LABS: BLOOD UREA NITROGEN 11.6 mg/dL (7-18); CALCIUM 8.5 mg/dL (8.5-10.1)
[2021-07-02 06:56] LABS: CREATININE 0.4 mg/dL (0.55-1.3)
[2021-07-02] MEDS: IPRATROPIUM BR 0.02% 0.5 MG/2.5 ML VIAL.NEB. NEB SCH ×3 (08:10→19:51)
[2021-07-02] MEDS: TAMSULOSIN HCL 0.4 MG CAP NR SCH (09:39)
[2021-07-02] MEDS: PANTOPRAZOLE SODIUM 40 MG VIAL IVPUSH SCH ×2 (09:39→12:53)
[2021-07-02] MEDS: METOPROLOL TARTRATE 25 MG TABLET (FP) GT SCH ×2 (09:40→21:15)
[2021-07-02] MEDS: amLODIPine BESYLATE 5 MG TABLET (FP) GT SCH (09:40)
[2021-07-02] MEDS: levETIRAcetam 500 MG/5 ML ORAL SOLUTION (UNIT-DOSE CUPS) GT SCH (09:42)
[2021-07-02] MEDS: APIXABAN 2.5 MG TABLET GT SCH ×2 (09:42→21:14)
[2021-07-02] MEDS: predniSONE 20 MG TABLET (UD) GT SCH (09:42)
[2021-07-02] MEDS: CHOLECALCIFEROL (VIT D SOLUTION) 400 UNIT/1 ML DROPS GT SCH (09:43)
[2021-07-02] MEDS: carBAMazepine 100 MG/5 ML UNIT-DOSE CUP GT SCH (09:43)
[2021-07-02] MEDS: BUDESONIDE/FORMETEROL FUMARATE 80/4.5 mcg INHALER IH SCH ×2 (09:45→21:15)
[2021-07-02] MEDS ORDERED: PANTOPRAZOLE 40 MG TABLET PO SCH (11:45)
[2021-07-02] MEDS: FAMOTIDINE 40 MG/5 ML ORAL SUSPENSION PEG SCH ×2 (13:18→21:15)
[2021-07-02] MEDS ORDERED: SODIUM CHLORIDE 500 ML IV STA (16:46)
[2021-07-02 18:23] LABS: URINE APPEARANCE CLOUDY; URINE BILIRUBIN NEGATIVE (NEGATIVE); URINE COLOR YELLOW; URINE GLUCOSE (UA) NEGATIVE (NEGATIVE); URINE KETONE NEGATIVE (NEGATIVE); URINE LEUK ESTERASE NEGATIVE (NEGATIVE); URINE NITRITE NEGATIVE (NEGATIVE); URINE PROTEIN NEGATIVE (NEGATIVE)
[2021-07-02] MEDS: SODIUM CHLORIDE 1,000 ML IV SCH (18:39)
[2021-07-02] MEDS ORDERED: PT OWN MED DRAWER 7, Y5N ONE (20:52)
[2021-07-02] MEDS ORDERED: VALPROATE SODIUM 500 MG/5 ML VIAL IVPB SCH (21:00)
[2021-07-02] MEDS: VALPROATE SODIUM IVPB SCH (21:09)
[2021-07-02] MEDS: WATER IVPB SCH (21:09)
[2021-07-02] MEDS: DEXTROSE 5% IVPB SCH (21:09)
[2021-07-02] MEDS ORDERED: levETIRAcetam 500 MG/5 ML INJECTION VIAL IVPB SCH (22:00)
[2021-07-03] MEDS: VALPROATE SODIUM IVPB SCH ×2 (02:16→10:12)
[2021-07-03] MEDS: WATER IVPB SCH ×2 (02:16→10:12)
[2021-07-03] MEDS: DEXTROSE 5% IVPB SCH ×2 (02:16→10:12)
[2021-07-03] MEDS: BACLOFEN 10 MG TABLET (FP) GT SCH ×3 (04:07→18:04)
[2021-07-03] MEDS: SODIUM CHLORIDE 1,000 ML IV SCH ×2 (04:27→18:04)
[2021-07-03] MEDS: clonazePAM 0.5 MG TABLET GT SCH ×2 (05:27→13:50)
[2021-07-03 06:57] LABS: BLOOD UREA NITROGEN 11.5 mg/dL (7-18); CALCIUM 8.7 mg/dL (8.5-10.1); MAGNESIUM 2.3 mg/dL (1.8-2.4)
[2021-07-03 07:00] LABS: CREATININE 0.4 mg/dL (0.55-1.3); PHOSPHOROUS 4.4 mg/dL (2.5-4.9)
[2021-07-03 07:02] LABS: BILIRUBIN,TOTAL 0.4 mg/dL (0.2-1); TOT PROT 7.2 g/dl (6.4-8.2)
[2021-07-03 07:13] LABS: BASO % 0.7 % (0-2.0); EOS % 0.5 % (0-4.5); HEMOGLOBIN 12.6 GM/dL (11.7-16.9); LYMPH % 33.5 % (8-40); MCH 29.5 pg (25.7-33.7); MEAN CELL VOLUME 86.8 fl (80-96); MONO % 10.4 % (3.8-10.2); NEUT % 54.9 % (42.8-82.8); PLATELET COUNT 352 10^3/uL (134-434); RBC 4.26 M/mm3 (4.00-5.60); WHITE BLOOD COUNT 9.4 K/mm3 (4.0-10.0)
[2021-07-03] MEDS: IPRATROPIUM BR 0.02% 0.5 MG/2.5 ML VIAL.NEB. NEB SCH ×2 (07:38→14:05)
[2021-07-03 07:43] LABS: ALBUMIN 2.8 g/dl (3.4-5.0)
[2021-07-03] MEDS ORDERED: TUBE FEED DECLOGGING SOLUTION 12,000 UNITS NGT ONE (09:00)
[2021-07-03] MEDS ORDERED: levETIRAcetam 500 MG/5 ML ORAL SOLUTION (UNIT-DOSE CUPS) GT SCH (10:00)
[2021-07-03] MEDS ORDERED: carBAMazepine 100 MG/5 ML UNIT-DOSE CUP GT SCH (10:00)
[2021-07-03] MEDS: TAMSULOSIN HCL 0.4 MG CAP NR SCH (10:13)
[2021-07-03] MEDS: amLODIPine BESYLATE 5 MG TABLET (FP) GT SCH (10:14)
[2021-07-03] MEDS: APIXABAN 2.5 MG TABLET GT SCH (10:14)
[2021-07-03] MEDS: METOPROLOL TARTRATE 25 MG TABLET (FP) GT SCH (10:14)
[2021-07-03] MEDS: FAMOTIDINE 40 MG/5 ML ORAL SUSPENSION PEG SCH (10:15)
[2021-07-03] MEDS: BUDESONIDE/FORMETEROL FUMARATE 80/4.5 mcg INHALER IH SCH (10:17)
[2021-07-03] MEDS: CHOLECALCIFEROL (VIT D SOLUTION) 400 UNIT/1 ML DROPS GT SCH (10:17)
[2021-07-03 14:17] VITALS: BP 127/73; PULSE 117; TEMP 98.5
[2021-07-03 18:51] LABS: PH,URINE 7.5 (5.0-8.0); URINE APPEARANCE CLOUDY; URINE BILIRUBIN NEGATIVE (NEGATIVE); URINE COLOR YELLOW; URINE GLUCOSE (UA) NEGATIVE (NEGATIVE); URINE KETONE NEGATIVE (NEGATIVE); URINE LEUK ESTERASE NEGATIVE (NEGATIVE); URINE NITRITE NEGATIVE (NEGATIVE); URINE PROTEIN NEGATIVE (NEGATIVE)
== END 2021-07-03 18:15 | DRG 720 ==
LOC: JER 17:13 → JERBED 18:54 → J4S 06-25 09:43 → J7W 06-28 17:00
PROVIDERS: ADMIT Internal Medicine; ATTEND Internal Medicine
DX: A41.52 Sepsis due to Pseudomonas (principal); R65.20 Severe sepsis without septic shock; R53.2 Functional quadriplegia; E87.1 Hypo-osmolality and hyponatremia; J69.0 Pneumonitis due to inhalation of food and vomit; H47.619 Cortical blindness, unspecified side of brain; G31.84 Mild cognitive impairment of uncertain or unknown etiology; R00.0 Tachycardia, unspecified; M41.9 Scoliosis, unspecified; R62.50 Unspecified lack of expected normal physiological development in childhood; R50.9 Fever, unspecified; R64 Cachexia; Z68.22 Body mass index [BMI] 22.0-22.9, adult; N40.0 Benign prostatic hyperplasia without lower urinary tract symptoms; Z86.718 Personal history of other venous thrombosis and embolism
CPT/HCPCS: 36415; 36600; 71045-TC-FY; 80048; 80053; 81003; 82803; 83605; 83735; 84100; 84443; 84484; 85025; 85027; 85610; 85730; 87040; 87070; 87086; 87186; 87205; 87633; 87804; 87807; 87899; 93005; 93010; 94640; 99285-25; C9803; J0131; J0475; U0003; U0005

== ENCOUNTER 2021-07-07 19:05 | Inpatient (IN) | payer OTHER ==
[2021-07-07] MEDS ORDERED: methylPREDNISolone NA SUCC 40 MG/1 ML VIAL IVPUSH ONE (20:48)
[2021-07-07] MEDS ORDERED: VANCOMYCIN 1 GM in D5W (PRE-DOCKED) 1,000 MG/250 ML IVPB ONE (20:53)
[2021-07-07] MEDS ORDERED: PIPERACILLIN/TAZOB 3.375 GM 3.375 GM in DEXTROSE 5%-WATER - 50 ML IVPB ONE (20:54)
[2021-07-07 22:44] LABS: INR 1.19 (0.83-1.09); PROTHROMBIN TIME (PATIENT) 13.3 SEC (9.7-13.0)
[2021-07-07 22:47] LABS: ACTIVATED PTT 22.9 SECONDS (25.2-36.5)
[2021-07-07 23:02] LABS: ALBUMIN 3.2 g/dl (3.4-5.0); BLOOD UREA NITROGEN 3.9 mg/dL (7-18); CALCIUM 8.9 mg/dL (8.5-10.1)
[2021-07-07 23:03] LABS: MAGNESIUM 2.3 mg/dL (1.8-2.4)
[2021-07-07 23:06] LABS: CREATININE 0.4 mg/dL (0.55-1.3)
[2021-07-07 23:07] LABS: BILIRUBIN,TOTAL 0.4 mg/dL (0.2-1)
[2021-07-07 23:35] LABS: BASO % 0.5 % (0-2.0); EOS % 1.9 % (0-4.5); HEMATOCRIT 36.7 % (35.4-49); HEMOGLOBIN 12.9 GM/dL (11.7-16.9); LYMPH % 30.7 % (8-40); MCHC 35.2 g/dl (32.0-35.9); MEAN CELL VOLUME 85.3 fl (80-96); MEAN PLT VOLUME 7.1 fl (7.5-11.1); MONO % 9.5 % (3.8-10.2); NEUT % 57.4 % (42.8-82.8); PLATELET COUNT 395 10^3/uL (134-434); WHITE BLOOD COUNT 8.9 K/mm3 (4.0-10.0)
[2021-07-07] MEDS ORDERED: methylPREDNISolone NA SUCC 40 MG/1 ML VIAL ONE (23:51)
[2021-07-07] MEDS ORDERED: PIPERACILLIN/TAZOB 3.375 GM 3.375 GM/50 ML BAG IVPB ONE (23:51)
[2021-07-08] MEDS ORDERED: VANCOMYCIN 1 GRAM (PRE-DOCKED) 1,000 MG/250 ML BAG IVPB ONE (00:55)
[2021-07-08 04:22] LABS: ARTERIAL BLD GAS O2 SATURATION 96.8 % (95-98); ARTERIAL BLOOD GAS BASE EXCESS -4.2 mmol/L (-2-2); ARTERIAL BLOOD GAS PO2 85.7 mmHg (80-100); ARTERIAL BLOOD GAS pH 7.418 (7.350-7.450)
[2021-07-08 04:57] LABS: ALLENS TEST POSITIVE
[2021-07-08 07:25] LABS: BASO % 0.1 % (0-2.0); EOS % 0.1 % (0-4.5); HEMATOCRIT 40.6 % (35.4-49); HEMOGLOBIN 13.6 GM/dL (11.7-16.9); LYMPH % 8.6 % (8-40); MCH 29.4 pg (25.7-33.7); MCHC 33.6 g/dl (32.0-35.9); MEAN CELL VOLUME 87.4 fl (80-96); MONO % 1.4 % (3.8-10.2); NEUT % 89.8 % (42.8-82.8); PLATELET COUNT 395 10^3/uL (134-434); RBC 4.64 M/mm3 (4.00-5.60); RDW 15.3 % (11.9-15.9); WHITE BLOOD COUNT 8.1 K/mm3 (4.0-10.0)
[2021-07-08] MEDS ORDERED: ALBUTEROL SO4 2.5/IPRATROPIUM 0.5 INH SOL 3 ML VIAL.NEB. NEB PRN (07:34)
[2021-07-08] MEDS ORDERED: diazePAM RECTAL GEL 10 MG KIT (PRE-CALIBRATED) RC PRN (07:34)
[2021-07-08 07:45] LABS: BLOOD UREA NITROGEN 5.1 mg/dL (7-18); CALCIUM 8.7 mg/dL (8.5-10.1)
[2021-07-08 07:46] LABS: ALBUMIN 3.3 g/dl (3.4-5.0); MAGNESIUM 2.1 mg/dL (1.8-2.4)
[2021-07-08 07:49] LABS: CREATININE 0.5 mg/dL (0.55-1.3); PHOSPHOROUS 2.8 mg/dL (2.5-4.9)
[2021-07-08 07:50] LABS: BILIRUBIN,TOTAL 0.3 mg/dL (0.2-1); TOT PROT 8.1 g/dl (6.4-8.2)
[2021-07-08] MEDS ORDERED: ALBUTEROL SO4 2.5/IPRATROPIUM 0.5 INH SOL 3 ML VIAL.NEB. NEB SCH (08:00)
[2021-07-08] MEDS ORDERED: PT OWN MED DRAWER 7, Y5N ONE ×3 (09:36→14:21)
[2021-07-08] MEDS ORDERED: clonazePAM 0.5 MG TABLET ONE ×3 (09:41→23:10)
[2021-07-08] MEDS: clonazePAM 0.5 MG TABLET GT SCH ×3 (09:47→23:13)
[2021-07-08] MEDS: levETIRAcetam 500 MG/5 ML ORAL SOLUTION (UNIT-DOSE CUPS) GT SCH (09:48)
[2021-07-08] MEDS: METOPROLOL TARTRATE 25 MG TABLET (FP) GT SCH ×2 (09:48→23:13)
[2021-07-08] MEDS: amLODIPine BESYLATE 5 MG TABLET (FP) GT SCH (09:49)
[2021-07-08] MEDS ORDERED: carBAMazepine 100 MG/5 ML UNIT-DOSE CUP PO SCH (10:00)
[2021-07-08] MEDS ORDERED: ENOXAPARIN NA (PORCINE) 40 MG/0.4 ML DISP.SYRIN SQ SCH (10:00)
[2021-07-08] MEDS ORDERED: POLYETHYLENE GLYCOL (HEALTHYLAX) 3350 17 GM PACKET GT SCH (10:00)
[2021-07-08] MEDS ORDERED: CHOLECALCIFEROL (VIT D3) 1,000 UNIT (25 MCG) TABLET GT SCH (10:15)
[2021-07-08] MEDS: FAMOTIDINE 40 MG/5 ML ORAL SUSPENSION NGT SCH (11:43)
[2021-07-08] MEDS: BUDESONIDE 0.5 MG/2 ML INH SUSP VIAL NEB SCH ×2 (11:43→22:55)
[2021-07-08] MEDS ORDERED: POLYETHYLENE GLYCOL (HEALTHYLAX) 3350 17 GM PACKET ONE (14:21)
[2021-07-08] MEDS ORDERED: BACLOFEN 10 MG TABLET (FP) ONE ×2 (14:23→23:11)
[2021-07-08] MEDS: BACLOFEN 10 MG TABLET (FP) GT SCH ×2 (14:29→23:13)
[2021-07-08] MEDS: POLYETHYLENE GLYCOL (HEALTHYLAX) 3350 17 GM PACKET PO SCH (14:29)
[2021-07-08] MEDS: PATIENT'S OWN MEDICATION (NON-FORMULARY) (Lactose-Reduced Food/Fiber [Jevity 1 Cal Liquid] PO SCH (14:29)
[2021-07-08] MEDS: APIXABAN 2.5 MG TABLET GT SCH ×2 (14:29→23:13)
[2021-07-08] MEDS ORDERED: METOPROLOL TARTRATE 25 MG TABLET (FP) ONE (23:10)
[2021-07-08] MEDS ORDERED: FAMOTIDINE 20 MG TABLET ONE (23:10)
[2021-07-08] MEDS ORDERED: APIXABAN 2.5 MG TABLET ONE (23:11)
[2021-07-08] MEDS ORDERED: TAMSULOSIN HCL 0.4 MG CAP ONE (23:11)
[2021-07-08] MEDS: TAMSULOSIN HCL 0.4 MG CAP PO SCH (23:13)
[2021-07-08 23:59] LABS: PH,URINE 8.5 (5.0-8.0); URINE APPEARANCE CLEAR; URINE BILIRUBIN NEGATIVE (NEGATIVE); URINE COLOR YELLOW; URINE GLUCOSE (UA) NEGATIVE (NEGATIVE); URINE KETONE NEGATIVE (NEGATIVE); URINE LEUK ESTERASE NEGATIVE (NEGATIVE); URINE NITRITE NEGATIVE (NEGATIVE); URINE PROTEIN NEGATIVE (NEGATIVE); URINE UROBILINOGEN 0.2 mg/dL (0.2-1.0)
[2021-07-09] MEDS: BACLOFEN 10 MG TABLET (FP) GT SCH ×4 (00:30→18:11)
[2021-07-09] MEDS: levETIRAcetam 500 MG/5 ML ORAL SOLUTION (UNIT-DOSE CUPS) GT SCH ×2 (00:50→10:00)
[2021-07-09] MEDS: carBAMazepine 100 MG/5 ML UNIT-DOSE CUP GT SCH ×2 (00:50→10:00)
[2021-07-09] MEDS: FAMOTIDINE 40 MG/5 ML ORAL SUSPENSION NGT SCH ×2 (00:51→10:00)
[2021-07-09] MEDS ORDERED: BACLOFEN 10 MG TABLET (FP) ONE ×3 (05:12→18:00)
[2021-07-09] MEDS ORDERED: clonazePAM 0.5 MG TABLET ONE ×2 (06:39→15:03)
[2021-07-09] MEDS: clonazePAM 0.5 MG TABLET GT SCH ×2 (06:47→15:00)
[2021-07-09 09:32] LABS: HEMATOCRIT 39.5 % (35.4-49); HEMOGLOBIN 13.4 GM/dL (11.7-16.9); MCH 29.4 pg (25.7-33.7); MEAN CELL VOLUME 86.4 fl (80-96); MEAN PLT VOLUME 6.5 fl (7.5-11.1); PLATELET COUNT 374 10^3/uL (134-434); RBC 4.57 M/mm3 (4.00-5.60); WHITE BLOOD COUNT 8.6 K/mm3 (4.0-10.0)
[2021-07-09 09:53] LABS: BLOOD UREA NITROGEN 9.8 mg/dL (7-18); CALCIUM 9.1 mg/dL (8.5-10.1)
[2021-07-09] MEDS ORDERED: POLYETHYLENE GLYCOL (HEALTHYLAX) 3350 17 GM PACKET ONE (09:56)
[2021-07-09] MEDS ORDERED: METOPROLOL TARTRATE 25 MG TABLET (FP) ONE (09:56)
[2021-07-09] MEDS ORDERED: APIXABAN 2.5 MG TABLET ONE (09:56)
[2021-07-09] MEDS ORDERED: amLODIPine BESYLATE 5 MG TABLET (FP) ONE (09:56)
[2021-07-09 09:57] LABS: CREATININE 0.4 mg/dL (0.55-1.3)
[2021-07-09] MEDS: CHOLECALCIFEROL (VIT D SOLUTION) 400 UNIT/1 ML DROPS GT SCH (10:00)
[2021-07-09] MEDS: POLYETHYLENE GLYCOL (HEALTHYLAX) 3350 17 GM PACKET PO SCH (10:00)
[2021-07-09] MEDS: METOPROLOL TARTRATE 25 MG TABLET (FP) GT SCH (10:00)
[2021-07-09] MEDS: APIXABAN 2.5 MG TABLET GT SCH (10:00)
[2021-07-09] MEDS: BUDESONIDE 0.5 MG/2 ML INH SUSP VIAL NEB SCH (10:45)
[2021-07-09] MEDS: PATIENT'S OWN MEDICATION (NON-FORMULARY) (Lactose-Reduced Food/Fiber [Jevity 1 Cal Liquid] PO SCH (11:00)
[2021-07-09] MEDS: amLODIPine BESYLATE 5 MG TABLET (FP) GT SCH (11:56)
[2021-07-10] MEDS: APIXABAN 2.5 MG TABLET GT SCH ×2 (00:01→10:04)
[2021-07-10] MEDS: levETIRAcetam 500 MG/5 ML ORAL SOLUTION (UNIT-DOSE CUPS) GT SCH ×2 (00:01→10:01)
[2021-07-10] MEDS: METOPROLOL TARTRATE 25 MG TABLET (FP) GT SCH ×2 (00:02→10:05)
[2021-07-10] MEDS: clonazePAM 0.5 MG TABLET GT SCH ×3 (00:02→13:09)
[2021-07-10] MEDS: TAMSULOSIN HCL 0.4 MG CAP PO SCH (00:02)
[2021-07-10] MEDS: BUDESONIDE 0.5 MG/2 ML INH SUSP VIAL NEB SCH ×2 (00:03→10:05)
[2021-07-10] MEDS: BACLOFEN 10 MG TABLET (FP) GT SCH ×3 (00:04→13:10)
[2021-07-10] MEDS: carBAMazepine 100 MG/5 ML UNIT-DOSE CUP GT SCH ×2 (00:19→10:06)
[2021-07-10] MEDS: FAMOTIDINE 40 MG/5 ML ORAL SUSPENSION NGT SCH ×2 (00:19→10:03)
[2021-07-10 03:15] VITALS: BMI 19.7
[2021-07-10] MEDS ORDERED: PT OWN MED DRAWER 7, Y5N ONE (09:30)
[2021-07-10 09:43] LABS: HEMATOCRIT 40.6 % (35.4-49); HEMOGLOBIN 13.7 GM/dL (11.7-16.9); MCH 29.6 pg (25.7-33.7); MCHC 33.8 g/dl (32.0-35.9); MEAN CELL VOLUME 87.6 fl (80-96); MEAN PLT VOLUME 7.1 fl (7.5-11.1); PLATELET COUNT 423 10^3/uL (134-434); RBC 4.63 M/mm3 (4.00-5.60); RDW 15.4 % (11.9-15.9); WHITE BLOOD COUNT 8.7 K/mm3 (4.0-10.0)
[2021-07-10 10:04] LABS: CALCIUM 8.5 mg/dL (8.5-10.1)
[2021-07-10] MEDS: CHOLECALCIFEROL (VIT D SOLUTION) 400 UNIT/1 ML DROPS GT SCH (10:04)
[2021-07-10] MEDS: POLYETHYLENE GLYCOL (HEALTHYLAX) 3350 17 GM PACKET PO SCH (10:04)
[2021-07-10 10:05] LABS: BLOOD UREA NITROGEN 8.7 mg/dL (7-18)
[2021-07-10] MEDS: amLODIPine BESYLATE 5 MG TABLET (FP) GT SCH (10:06)
[2021-07-10 10:08] LABS: CREATININE 0.4 mg/dL (0.55-1.3)
[2021-07-10] MEDS: PATIENT'S OWN MEDICATION (NON-FORMULARY) (Lactose-Reduced Food/Fiber [Jevity 1 Cal Liquid] PO SCH (11:00)
[2021-07-10 13:19] VITALS: BP 115/74; PULSE 133; TEMP 98.7
== END 2021-07-10 15:31 | disposition home or self-care (01) | DRG 137 ==
LOC: JER 19:05 → JERBED 20:52 → J6S 07-09 23:41
PROVIDERS: ATTEND Internal Medicine
DX: J69.0 Pneumonitis due to inhalation of food and vomit (principal); J45.901 Unspecified asthma with (acute) exacerbation; G80.8 Other cerebral palsy; Q67.5 Congenital deformity of spine; Q02 Microcephaly; R56.9 Unspecified convulsions; F79 Unspecified intellectual disabilities; H47.619 Cortical blindness, unspecified side of brain; N44.00 Torsion of testis, unspecified; R13.10 Dysphagia, unspecified; E87.1 Hypo-osmolality and hyponatremia; R53.2 Functional quadriplegia; R64 Cachexia; Z68.1 Body mass index [BMI] 19.9 or less, adult; R09.02 Hypoxemia; N40.0 Benign prostatic hyperplasia without lower urinary tract symptoms; I10 Essential (primary) hypertension; Z91.89 Other specified personal risk factors, not elsewhere classified; Z93.1 Gastrostomy status; Z86.718 Personal history of other venous thrombosis and embolism
CPT/HCPCS: 36415; 36600; 71045-TC-FY; 80048; 80053; 80156; 80177; 81003; 82803; 83735; 84100; 85025; 85027; 85610; 85730; 87070; 87086; 87186; 87205; 93005; 93010; 94640; 99285-25; C9803; J0475; U0003; U0005

== ENCOUNTER 2021-12-02 12:29 | Inpatient (IN) | payer OTHER ==
[2021-12-02 16:44] LABS: BASO % 0.5 % (0-2.0); EOS % 1.5 % (0-4.5); HEMATOCRIT 40.2 % (35.4-49); HEMOGLOBIN 13.5 GM/dL (11.7-16.9); LYMPH % 29.4 % (8-40); MCH 28.7 pg (25.7-33.7); MCHC 33.6 g/dl (32.0-35.9); MEAN CELL VOLUME 85.4 fl (80-96); MONO % 10.5 % (3.8-10.2); NEUT % 58.1 % (42.8-82.8); RDW 16.2 % (11.9-15.9); WHITE BLOOD COUNT 10.1 K/mm3 (4.0-10.0)
[2021-12-02 16:51] LABS: INR 1.28 (0.83-1.09); PROTHROMBIN TIME (PATIENT) 14.7 SEC (9.7-13.0)
[2021-12-02 16:54] LABS: ACTIVATED PTT 29.5 SECONDS (25.2-36.5)
[2021-12-02 17:05] LABS: ALBUMIN 3.5 g/dl (3.4-5.0); BLOOD UREA NITROGEN 5.5 mg/dL (7-18); CALCIUM 8.8 mg/dL (8.5-10.1)
[2021-12-02 17:08] LABS: CREATININE 0.4 mg/dL (0.55-1.3)
[2021-12-02 17:09] LABS: BILIRUBIN,TOTAL 0.7 mg/dL (0.2-1)
[2021-12-02 17:10] LABS: TOT PROT 8.1 g/dl (6.4-8.2)
[2021-12-02] MEDS ORDERED: VANCOMYCIN 1 GM in D5W (PRE-DOCKED) 1,000 MG/250 ML IVPB ONE (17:14)
[2021-12-02] MEDS ORDERED: PIPERACILLIN/TAZOB 3.375 GM 3.375 GM in DEXTROSE 5%-WATER - 50 ML IVPB ONE (17:15)
[2021-12-02 17:30] LABS: MEAN PLT VOLUME 7.8 fl (7.5-11.1); PLATELET COUNT 290 10^3/uL (134-434); PLATELET ESTIMATE ADEQUATE
[2021-12-02] MEDS ORDERED: VANCOMYCIN 1 GRAM (PRE-DOCKED) 1,000 MG/250 ML BAG IVPB ONE (17:38)
[2021-12-02] MEDS ORDERED: PIPERACILLIN/TAZOB 3.375 GM 3.375 GM/50 ML BAG IVPB ONE (17:38)
[2021-12-03 04:36] VITALS: BMI 19.1
[2021-12-03] MEDS: SODIUM CHLORIDE 1,000 ML IV SCH ×4 (05:41→14:38)
[2021-12-03 09:01] LABS: BASO % 0.4 % (0-2.0); EOS % 0.6 % (0-4.5); HEMATOCRIT 37.7 % (35.4-49); HEMOGLOBIN 12.7 GM/dL (11.7-16.9); MCH 28.7 pg (25.7-33.7); MCHC 33.6 g/dl (32.0-35.9); MEAN CELL VOLUME 85.3 fl (80-96); MEAN PLT VOLUME 7.2 fl (7.5-11.1); MONO % 12.6 % (3.8-10.2); NEUT % 65.4 % (42.8-82.8); PLATELET COUNT 291 10^3/uL (134-434); RBC 4.42 M/mm3 (4.00-5.60); RDW 15.9 % (11.9-15.9); WHITE BLOOD COUNT 5.8 K/mm3 (4.0-10.0)
[2021-12-03] MEDS ORDERED: ALBUTEROL SO4 2.5/IPRATROPIUM 0.5 INH SOL 3 ML VIAL.NEB. NEB PRN (09:19)
[2021-12-03 09:21] LABS: ALBUMIN 3.5 g/dl (3.4-5.0)
[2021-12-03 09:22] LABS: BLOOD UREA NITROGEN 4.2 mg/dL (7-18)
[2021-12-03 09:23] LABS: CALCIUM 8.4 mg/dL (8.5-10.1); MAGNESIUM 2.2 mg/dL (1.8-2.4)
[2021-12-03 09:24] LABS: CREATININE 0.3 mg/dL (0.55-1.3); PHOSPHOROUS 3.5 mg/dL (2.5-4.9)
[2021-12-03 09:26] LABS: BILIRUBIN,TOTAL 0.6 mg/dL (0.2-1); TOT PROT 7.7 g/dl (6.4-8.2)
[2021-12-03] MEDS ORDERED: ENOXAPARIN NA (PORCINE) 40 MG/0.4 ML DISP.SYRIN SQ SCH (10:00)
[2021-12-03] MEDS: levETIRAcetam 500 MG/5 ML ORAL SOLUTION (UNIT-DOSE CUPS) GT SCH ×2 (10:21→22:41)
[2021-12-03] MEDS: APIXABAN 2.5 MG TABLET GT SCH ×2 (10:22→22:41)
[2021-12-03] MEDS: carBAMazepine 100 MG/5 ML UNIT-DOSE CUP PO SCH ×2 (11:14→23:11)
[2021-12-03] MEDS: BUDESONIDE 0.5 MG/2 ML INH SUSP VIAL NEB SCH ×2 (11:25→19:06)
[2021-12-03] MEDS: clonazePAM 0.5 MG TABLET GT SCH ×2 (14:39→22:41)
[2021-12-03 15:08] LABS: SARS-CoV-2 NAA Not Detected (Not Detected)
[2021-12-03] MEDS ORDERED: PATIENT'S OWN MEDICATION (NON-FORMULARY) (Omeprazole Magnesium [Prilosec] 10 MG Suspdr.Pkt GT SCH (18:00)
[2021-12-03 19:11] LABS: PH,URINE 7.5 (5.0-8.0); URINE APPEARANCE CLEAR; URINE BILIRUBIN NEGATIVE (NEGATIVE); URINE COLOR YELLOW; URINE GLUCOSE (UA) NEGATIVE (NEGATIVE); URINE KETONE 1+ (NEGATIVE); URINE LEUK ESTERASE NEGATIVE (NEGATIVE); URINE NITRITE NEGATIVE (NEGATIVE); URINE PROTEIN NEGATIVE (NEGATIVE); URINE UROBILINOGEN 0.2 mg/dL (0.2-1.0)
[2021-12-03] MEDS ORDERED: ACETAMINOPHEN 1000 MG/100 ML BAG IVPB ONE ×2 (21:59→22:39)
[2021-12-04] MEDS ORDERED: IBUPROFEN 800 MG/8 ML IJ IVPB ONE (00:50)
[2021-12-04] MEDS ORDERED: PIPERACILLIN/TAZOBACTAM 3.375 GM VIAL IVPB ONE ×3 (03:02→17:26)
[2021-12-04] MEDS ORDERED: DEXTROSE 5%-WATER - 50 ML IVPB ONE ×3 (03:02→17:26)
[2021-12-04] MEDS: PIPERACILLIN/TAZOB 3.375 GM 3.375 GM in DEXTROSE 5%-WATER - 50 ML IVPB SCH ×6 (03:12→18:57)
[2021-12-04] MEDS: clonazePAM 0.5 MG TABLET GT SCH ×3 (05:34→21:29)
[2021-12-04] MEDS: BUDESONIDE 0.5 MG/2 ML INH SUSP VIAL NEB SCH ×2 (07:40→20:20)
[2021-12-04 08:28] LABS: HEMATOCRIT 37.4 % (35.4-49); HEMOGLOBIN 12.4 GM/dL (11.7-16.9); MCH 28.1 pg (25.7-33.7); MCHC 33.1 g/dl (32.0-35.9); MEAN CELL VOLUME 84.9 fl (80-96); MEAN PLT VOLUME 7.3 fl (7.5-11.1); PLATELET COUNT 272 10^3/uL (134-434); RBC 4.41 M/mm3 (4.00-5.60); RDW 15.6 % (11.9-15.9)
[2021-12-04] MEDS ORDERED: TAMSULOSIN HCL 0.4 MG CAP PO SCH ×2 (08:30)
[2021-12-04 08:47] LABS: CHLORIDE 103 mmol/L (98-107); SODIUM 135 mmol/L (136-145)
[2021-12-04 08:53] LABS: ANION GAP 9 MMOL/L (8-16); CALCIUM 8.5 mg/dL (8.5-10.1); CO2 22 mmol/L (21-32); GLUCOSE,RANDOM 91 mg/dL (74-106); MAGNESIUM 2.2 mg/dL (1.8-2.4)
[2021-12-04 08:54] LABS: ALBUMIN 3.3 g/dl (3.4-5.0)
[2021-12-04 08:55] LABS: SGOT/AST 24 U/L (15-37); SGPT/ALT 32 U/L (13-61)
[2021-12-04 08:57] LABS: CREATININE 0.3 mg/dL (0.55-1.3); PHOSPHOROUS 3.7 mg/dL (2.5-4.9)
[2021-12-04 08:58] LABS: BILIRUBIN,TOTAL 0.5 mg/dL (0.2-1); TOT PROT 7.4 g/dl (6.4-8.2)
[2021-12-04 08:59] LABS: ALK PHOS 121 U/L (45-117)
[2021-12-04 09:10] LABS: BLOOD UREA NITROGEN 1.6 mg/dL (7-18)
[2021-12-04] MEDS: levETIRAcetam 500 MG/5 ML ORAL SOLUTION (UNIT-DOSE CUPS) GT SCH ×2 (10:33→21:30)
[2021-12-04] MEDS: APIXABAN 2.5 MG TABLET GT SCH ×2 (10:36→21:30)
[2021-12-04] MEDS: FAMOTIDINE 40 MG/5 ML ORAL SUSPENSION PEG SCH (10:36)
[2021-12-04] MEDS: METOPROLOL TARTRATE 25 MG TABLET (FP) GT SCH ×2 (10:37→21:29)
[2021-12-04] MEDS: carBAMazepine 100 MG/5 ML UNIT-DOSE CUP PO SCH ×2 (10:37→21:30)
[2021-12-04] MEDS: SODIUM CHLORIDE 1,000 ML IV SCH (10:37)
[2021-12-04] MEDS: CHOLECALCIFEROL (VIT D3) 1,000 UNIT (25 MCG) TABLET GT SCH (10:38)
[2021-12-04] MEDS: KCL 10 MEQ IVPB 10 MEQ/100 ML INFUS.BAG IVPB SCH (13:26)
[2021-12-04] MEDS ORDERED: POTASSIUM CHLORIDE ORAL LIQUID 20 MEQ/15 ML GT ONE (13:45)
[2021-12-04] MEDS: BACLOFEN 10 MG TABLET (FP) GT SCH ×4 (14:01→23:10)
[2021-12-04] MEDS: amLODIPine BESYLATE 2.5 MG TABLET (FP) GT SCH (14:01)
[2021-12-04] MEDS ORDERED: ACETAMINOPHEN 1000 MG/100 ML BAG IVPB PRN ×2 (14:05→14:18)
[2021-12-04] MEDS ORDERED: SODIUM CHLORIDE 1,000 ML IV SCH (14:15)
[2021-12-04] MEDS: SCOPOLAMINE HYDROBROMIDE 1 PATCH PATCH.TD72 TD SCH (15:19)
[2021-12-04] MEDS: DOXAZOSIN MESYLATE 1 MG TABLET GT SCH (21:31)
[2021-12-05] MEDS ORDERED: PIPERACILLIN/TAZOBACTAM 3.375 GM VIAL IVPB ONE ×4 (01:48→23:57)
[2021-12-05] MEDS ORDERED: DEXTROSE 5%-WATER - 50 ML IVPB ONE ×4 (01:48→23:57)
[2021-12-05] MEDS: PIPERACILLIN/TAZOB 3.375 GM 3.375 GM in DEXTROSE 5%-WATER - 50 ML IVPB SCH ×3 (02:55→17:52)
[2021-12-05] MEDS: BACLOFEN 10 MG TABLET (FP) GT SCH ×3 (05:47→17:57)
[2021-12-05] MEDS: clonazePAM 0.5 MG TABLET GT SCH ×3 (05:47→22:09)
[2021-12-05] MEDS: BUDESONIDE 0.5 MG/2 ML INH SUSP VIAL NEB SCH ×2 (07:32→21:33)
[2021-12-05 09:09] LABS: HEMATOCRIT 36.4 % (35.4-49); HEMOGLOBIN 12.1 GM/dL (11.7-16.9); MCH 28.9 pg (25.7-33.7); MCHC 33.3 g/dl (32.0-35.9); MEAN PLT VOLUME 7.3 fl (7.5-11.1); PLATELET COUNT 231 10^3/uL (134-434); RBC 4.18 M/mm3 (4.00-5.60); WHITE BLOOD COUNT 6.2 K/mm3 (4.0-10.0)
[2021-12-05 09:39] LABS: ALBUMIN 2.8 g/dl (3.4-5.0); BLOOD UREA NITROGEN 3.7 mg/dL (7-18); CALCIUM 8.2 mg/dL (8.5-10.1); MAGNESIUM 2.3 mg/dL (1.8-2.4)
[2021-12-05 09:42] LABS: BILIRUBIN,TOTAL 0.5 mg/dL (0.2-1); CREATININE 0.3 mg/dL (0.55-1.3); PHOSPHOROUS 4.4 mg/dL (2.5-4.9)
[2021-12-05 09:44] LABS: TOT PROT 6.4 g/dl (6.4-8.2)
[2021-12-05] MEDS: METOPROLOL TARTRATE 25 MG TABLET (FP) GT SCH ×2 (09:48→22:09)
[2021-12-05] MEDS: APIXABAN 2.5 MG TABLET GT SCH ×2 (09:48→22:09)
[2021-12-05] MEDS: levETIRAcetam 500 MG/5 ML ORAL SOLUTION (UNIT-DOSE CUPS) GT SCH ×2 (09:49→22:09)
[2021-12-05] MEDS: CHOLECALCIFEROL (VIT D3) 1,000 UNIT (25 MCG) TABLET GT SCH (09:49)
[2021-12-05] MEDS: carBAMazepine 100 MG/5 ML UNIT-DOSE CUP PO SCH ×2 (09:50→22:09)
[2021-12-05] MEDS: FAMOTIDINE 40 MG/5 ML ORAL SUSPENSION PEG SCH (09:52)
[2021-12-05] MEDS: amLODIPine BESYLATE 2.5 MG TABLET (FP) GT SCH (11:27)
[2021-12-05] MEDS: DOXAZOSIN MESYLATE 1 MG TABLET GT SCH (22:08)
[2021-12-06] MEDS: BACLOFEN 10 MG TABLET (FP) GT SCH ×4 (00:43→17:19)
[2021-12-06] MEDS: PIPERACILLIN/TAZOB 3.375 GM 3.375 GM in DEXTROSE 5%-WATER - 50 ML IVPB SCH ×3 (01:43→17:20)
[2021-12-06] MEDS: clonazePAM 0.5 MG TABLET GT SCH ×3 (05:44→22:24)
[2021-12-06] MEDS: BUDESONIDE 0.5 MG/2 ML INH SUSP VIAL NEB SCH ×2 (07:55→20:05)
[2021-12-06 08:48] LABS: HEMATOCRIT 35.2 % (35.4-49); HEMOGLOBIN 11.8 GM/dL (11.7-16.9); MCH 28.9 pg (25.7-33.7); MCHC 33.5 g/dl (32.0-35.9); MEAN CELL VOLUME 86.2 fl (80-96); MEAN PLT VOLUME 7.5 fl (7.5-11.1); PLATELET COUNT 269 10^3/uL (134-434); RBC 4.08 M/mm3 (4.00-5.60); RDW 15.8 % (11.9-15.9); WHITE BLOOD COUNT 5.3 K/mm3 (4.0-10.0)
[2021-12-06 09:11] LABS: CALCIUM 7.8 mg/dL (8.5-10.1)
[2021-12-06 09:12] LABS: ALBUMIN 2.7 g/dl (3.4-5.0); BLOOD UREA NITROGEN 3.7 mg/dL (7-18); MAGNESIUM 2.1 mg/dL (1.8-2.4)
[2021-12-06 09:15] LABS: CREATININE 0.4 mg/dL (0.55-1.3)
[2021-12-06 09:16] LABS: BILIRUBIN,TOTAL 0.2 mg/dL (0.2-1)
[2021-12-06 09:17] LABS: TOT PROT 7.1 g/dl (6.4-8.2)
[2021-12-06] MEDS ORDERED: DEXTROSE 5%-WATER - 50 ML IVPB ONE ×2 (09:32→17:06)
[2021-12-06] MEDS ORDERED: PIPERACILLIN/TAZOBACTAM 3.375 GM VIAL IVPB ONE ×2 (09:32→17:05)
[2021-12-06] MEDS: levETIRAcetam 500 MG/5 ML ORAL SOLUTION (UNIT-DOSE CUPS) GT SCH ×2 (09:44→22:23)
[2021-12-06] MEDS: APIXABAN 2.5 MG TABLET GT SCH ×2 (09:45→22:24)
[2021-12-06] MEDS: METOPROLOL TARTRATE 25 MG TABLET (FP) GT SCH ×2 (09:45→22:24)
[2021-12-06] MEDS: FAMOTIDINE 40 MG/5 ML ORAL SUSPENSION PEG SCH (09:46)
[2021-12-06] MEDS: CHOLECALCIFEROL (VIT D3) 1,000 UNIT (25 MCG) TABLET GT SCH (09:46)
[2021-12-06] MEDS: carBAMazepine 100 MG/5 ML UNIT-DOSE CUP PO SCH ×2 (09:46→22:23)
[2021-12-06] MEDS: amLODIPine BESYLATE 2.5 MG TABLET (FP) GT SCH (12:49)
[2021-12-06] MEDS: DOXAZOSIN MESYLATE 1 MG TABLET GT SCH (22:24)
[2021-12-07] MEDS: BACLOFEN 10 MG TABLET (FP) GT SCH ×5 (00:11→23:39)
[2021-12-07] MEDS: clonazePAM 0.5 MG TABLET GT SCH ×3 (06:08→22:00)
[2021-12-07] MEDS: BUDESONIDE 0.5 MG/2 ML INH SUSP VIAL NEB SCH ×2 (07:32→20:16)
[2021-12-07 08:55] LABS: HEMATOCRIT 37.8 % (35.4-49); HEMOGLOBIN 12.7 GM/dL (11.7-16.9); MCH 29.3 pg (25.7-33.7); MCHC 33.7 g/dl (32.0-35.9); MEAN CELL VOLUME 86.9 fl (80-96); MEAN PLT VOLUME 7.7 fl (7.5-11.1); PLATELET COUNT 175 10^3/uL (134-434); RBC 4.35 M/mm3 (4.00-5.60); RDW 16.3 % (11.9-15.9); WHITE BLOOD COUNT 5.9 K/mm3 (4.0-10.0)
[2021-12-07] MEDS ORDERED: DEXTROSE 5%-WATER - 50 ML IVPB ONE ×2 (09:05→17:39)
[2021-12-07] MEDS ORDERED: PIPERACILLIN/TAZOBACTAM 3.375 GM VIAL IVPB ONE ×2 (09:05→17:39)
[2021-12-07] MEDS: levETIRAcetam 500 MG/5 ML ORAL SOLUTION (UNIT-DOSE CUPS) GT SCH ×2 (09:25→22:32)
[2021-12-07] MEDS: carBAMazepine 100 MG/5 ML UNIT-DOSE CUP GT SCH ×2 (09:27→22:01)
[2021-12-07] MEDS: FAMOTIDINE 40 MG/5 ML ORAL SUSPENSION PEG SCH (09:27)
[2021-12-07] MEDS: APIXABAN 2.5 MG TABLET GT SCH ×2 (09:28→21:59)
[2021-12-07] MEDS: CHOLECALCIFEROL (VIT D3) 1,000 UNIT (25 MCG) TABLET GT SCH (09:30)
[2021-12-07] MEDS: METOPROLOL TARTRATE 25 MG TABLET (FP) GT SCH ×2 (09:30→21:59)
[2021-12-07 09:31] LABS: ALBUMIN 2.8 g/dl (3.4-5.0); BILIRUBIN,TOTAL 0.4 mg/dL (0.2-1); BLOOD UREA NITROGEN 5.7 mg/dL (7-18); CALCIUM 8.1 mg/dL (8.5-10.1); CREATININE 0.3 mg/dL (0.55-1.3); MAGNESIUM 2.2 mg/dL (1.8-2.4); PHOSPHOROUS 4.4 mg/dL (2.5-4.9); TOT PROT 7.2 g/dl (6.4-8.2)
[2021-12-07] MEDS: PIPERACILLIN/TAZOB 3.375 GM 3.375 GM in DEXTROSE 5%-WATER - 50 ML IVPB SCH ×2 (09:31→17:46)
[2021-12-07] MEDS ORDERED: POLYETHYLENE GLYCOL 3350 119 GM BTL PO SCH (11:00)
[2021-12-07] MEDS: POLYETHYLENE GLYCOL (HEALTHYLAX) 3350 17 GM PACKET GT SCH ×2 (11:55→22:00)
[2021-12-07] MEDS: SCOPOLAMINE HYDROBROMIDE 1 PATCH PATCH.TD72 TD SCH (14:51)
[2021-12-07] MEDS: DOXAZOSIN MESYLATE 1 MG TABLET GT SCH (22:01)
[2021-12-08] MEDS ORDERED: DEXTROSE 5%-WATER - 50 ML IVPB ONE ×3 (00:01→17:05)
[2021-12-08] MEDS ORDERED: PIPERACILLIN/TAZOBACTAM 3.375 GM VIAL IVPB ONE ×3 (00:01→17:05)
[2021-12-08] MEDS: PIPERACILLIN/TAZOB 3.375 GM 3.375 GM in DEXTROSE 5%-WATER - 50 ML IVPB SCH ×3 (01:36→17:12)
[2021-12-08] MEDS: BACLOFEN 10 MG TABLET (FP) GT SCH ×4 (05:19→23:03)
[2021-12-08] MEDS: clonazePAM 0.5 MG TABLET GT SCH ×3 (05:19→22:41)
[2021-12-08] MEDS: BUDESONIDE 0.5 MG/2 ML INH SUSP VIAL NEB SCH ×2 (07:40→20:54)
[2021-12-08 09:39] LABS: HEMATOCRIT 38.6 % (35.4-49); HEMOGLOBIN 12.9 GM/dL (11.7-16.9); MCH 28.6 pg (25.7-33.7); MCHC 33.4 g/dl (32.0-35.9); MEAN CELL VOLUME 85.7 fl (80-96); MEAN PLT VOLUME 7.3 fl (7.5-11.1); PLATELET COUNT 331 10^3/uL (134-434); RDW 15.8 % (11.9-15.9); WHITE BLOOD COUNT 6.6 K/mm3 (4.0-10.0)
[2021-12-08 10:04] LABS: CALCIUM 8.5 mg/dL (8.5-10.1); MAGNESIUM 2.4 mg/dL (1.8-2.4)
[2021-12-08 10:07] LABS: CREATININE 0.4 mg/dL (0.55-1.3)
[2021-12-08 10:09] LABS: BILIRUBIN,TOTAL 0.2 mg/dL (0.2-1); TOT PROT 7.7 g/dl (6.4-8.2)
[2021-12-08] MEDS: APIXABAN 2.5 MG TABLET GT SCH ×2 (10:20→22:39)
[2021-12-08] MEDS: CHOLECALCIFEROL (VIT D3) 1,000 UNIT (25 MCG) TABLET GT SCH (10:20)
[2021-12-08] MEDS: METOPROLOL TARTRATE 25 MG TABLET (FP) GT SCH ×2 (10:20→22:36)
[2021-12-08] MEDS: POLYETHYLENE GLYCOL (HEALTHYLAX) 3350 17 GM PACKET GT SCH ×2 (10:22→22:40)
[2021-12-08] MEDS: FAMOTIDINE 40 MG/5 ML ORAL SUSPENSION PEG SCH (10:22)
[2021-12-08] MEDS: carBAMazepine 100 MG/5 ML UNIT-DOSE CUP GT SCH ×2 (10:24→22:36)
[2021-12-08] MEDS: levETIRAcetam 500 MG/5 ML ORAL SOLUTION (UNIT-DOSE CUPS) GT SCH ×2 (12:28→22:35)
[2021-12-08] MEDS ORDERED: amLODIPine BESYLATE 2.5 MG TABLET (FP) GT SCH (14:19)
[2021-12-08] MEDS ORDERED: TAMSULOSIN HCL 0.4 MG CAP PO ONE (15:42)
[2021-12-09] MEDS ORDERED: DEXTROSE 5%-WATER - 50 ML IVPB ONE ×2 (01:44→10:09)
[2021-12-09] MEDS ORDERED: PIPERACILLIN/TAZOBACTAM 3.375 GM VIAL IVPB ONE ×2 (01:44→10:09)
[2021-12-09] MEDS: PIPERACILLIN/TAZOB 3.375 GM 3.375 GM in DEXTROSE 5%-WATER - 50 ML IVPB SCH ×2 (02:08→10:15)
[2021-12-09] MEDS: BACLOFEN 10 MG TABLET (FP) GT SCH ×3 (06:30→17:19)
[2021-12-09] MEDS: clonazePAM 0.5 MG TABLET GT SCH ×2 (06:30→13:54)
[2021-12-09] MEDS: BUDESONIDE 0.5 MG/2 ML INH SUSP VIAL NEB SCH (08:10)
[2021-12-09] MEDS ORDERED: TAMSULOSIN HCL 0.4 MG CAP PO SCH (08:30)
[2021-12-09] MEDS ORDERED: TAMSULOSIN HCL 0.4 MG CAP NR SCH ×2 (08:30)
[2021-12-09 09:14] LABS: HEMATOCRIT 37.8 % (35.4-49); HEMOGLOBIN 12.8 GM/dL (11.7-16.9); MCH 29.1 pg (25.7-33.7); MEAN CELL VOLUME 85.7 fl (80-96); MEAN PLT VOLUME 6.8 fl (7.5-11.1); PLATELET COUNT 294 10^3/uL (134-434); RBC 4.41 M/mm3 (4.00-5.60); RDW 15.9 % (11.9-15.9); WHITE BLOOD COUNT 7.5 K/mm3 (4.0-10.0)
[2021-12-09 09:38] LABS: CALCIUM 8.7 mg/dL (8.5-10.1)
[2021-12-09 09:41] LABS: CREATININE 0.4 mg/dL (0.55-1.3)
[2021-12-09] MEDS: levETIRAcetam 500 MG/5 ML ORAL SOLUTION (UNIT-DOSE CUPS) GT SCH (10:15)
[2021-12-09] MEDS: METOPROLOL TARTRATE 25 MG TABLET (FP) GT SCH (10:15)
[2021-12-09] MEDS: carBAMazepine 100 MG/5 ML UNIT-DOSE CUP GT SCH (10:17)
[2021-12-09] MEDS: CHOLECALCIFEROL (VIT D3) 1,000 UNIT (25 MCG) TABLET GT SCH (10:17)
[2021-12-09] MEDS: APIXABAN 2.5 MG TABLET GT SCH (10:17)
[2021-12-09] MEDS: POLYETHYLENE GLYCOL (HEALTHYLAX) 3350 17 GM PACKET GT SCH (10:17)
[2021-12-09] MEDS: FAMOTIDINE 40 MG/5 ML ORAL SUSPENSION PEG SCH (10:18)
[2021-12-09] MEDS ORDERED: amLODIPine BESYLATE 2.5 MG TABLET (FP) GT SCH (12:00)
[2021-12-09 15:44] VITALS: BP 107/68; PULSE 97; TEMP 98.3
== END 2021-12-09 17:58 | disposition home or self-care (01) | DRG 137 ==
LOC: JER 12:29 → JERBED 17:19 → J8W 12-03 04:01
PROVIDERS: ADMIT Internal Medicine; ATTEND Internal Medicine
DX: J69.0 Pneumonitis due to inhalation of food and vomit (principal); I95.9 Hypotension, unspecified; E87.1 Hypo-osmolality and hyponatremia; R53.2 Functional quadriplegia; G80.9 Cerebral palsy, unspecified; E87.6 Hypokalemia; R62.50 Unspecified lack of expected normal physiological development in childhood; R33.9 Retention of urine, unspecified; I10 Essential (primary) hypertension; N40.0 Benign prostatic hyperplasia without lower urinary tract symptoms
CPT/HCPCS: 36415; 71045-TC-FY; 74018-TC-FY; 80048; 80053; 81003; 83735; 84100; 85025; 85027; 85610; 85730; 87040; 87070; 87086; 87186; 87205; 87633; 87804; 87807; 87899; 93005; 93010; 93970-TC; 94640; 99285-25; C9803-CS; J0475; U0003; U0005

== ENCOUNTER 2022-01-09 15:00 | Inpatient (IN) | payer OTHER ==
[2022-01-09] MEDS ORDERED: ONDANSETRON 4 MG/2 ML VIAL IVPUSH ONE (15:48)
[2022-01-09] MEDS ORDERED: SODIUM CHLORIDE 0.9% 500 ML INFUS.BAG IV ONE (15:48)
[2022-01-09] MEDS ORDERED: ONDANSETRON 4 MG/2 ML VIAL ONE (15:58)
[2022-01-09 16:52] LABS: BASO % 0.1 % (0-2.0); HEMATOCRIT 40.3 % (35.4-49); HEMOGLOBIN 13.6 GM/dL (11.7-16.9); LYMPH % 3.8 % (8-40); MCH 28.3 pg (25.7-33.7); MCHC 33.8 g/dl (32.0-35.9); MEAN CELL VOLUME 83.9 fl (80-96); MONO % 3.5 % (3.8-10.2); NEUT % 92.6 % (42.8-82.8); PLATELET COUNT 292 10^3/uL (134-434); RDW 14.9 % (11.9-15.9)
[2022-01-09 16:54] LABS: VENOUS BASE EXCESS -3.5 mmol/L (-2-2); VENOUS O2 SATURATION 90.5 % (70-80); VENOUS PCO2 45.6 mmHg (38-52); VENOUS PH 7.317 (7.310-7.410)
[2022-01-09 16:57] LABS: INR 1.29 (0.83-1.09); PROTHROMBIN TIME (PATIENT) 14.9 SEC (9.7-13.0)
[2022-01-09 17:07] LABS: ALBUMIN 3.2 g/dl (3.4-5.0); BLOOD UREA NITROGEN 5.4 mg/dL (7-18); CALCIUM 8.5 mg/dL (8.5-10.1)
[2022-01-09 17:10] LABS: CREATININE 0.4 mg/dL (0.55-1.3)
[2022-01-09 17:12] LABS: BILIRUBIN,TOTAL 0.3 mg/dL (0.2-1); TOT PROT 7.7 g/dl (6.4-8.2)
[2022-01-09 17:57] LABS: ANISOCYTOSIS 1+; MACROCYTOSIS 0
[2022-01-09 17:58] LABS: PLATELET ESTIMATE ADEQUATE
[2022-01-09] MEDS ORDERED: SODIUM CHLORIDE 1,000 ML IV SCH ×2 (21:15→23:20)
[2022-01-09 21:30] LABS: PH,URINE 7.5 (5.0-8.0); URINE APPEARANCE CLEAR; URINE BILIRUBIN NEGATIVE (NEGATIVE); URINE COLOR YELLOW; URINE GLUCOSE (UA) NEGATIVE (NEGATIVE); URINE KETONE NEGATIVE (NEGATIVE); URINE LEUK ESTERASE NEGATIVE (NEGATIVE); URINE NITRITE NEGATIVE (NEGATIVE); URINE PROTEIN NEGATIVE (NEGATIVE); URINE UROBILINOGEN 0.2 mg/dL (0.2-1.0)
[2022-01-09] MEDS ORDERED: PATIENT'S OWN MEDICATION (NON-FORMULARY) (Lactose-Reduced Food/Fiber [Jevity 1 Cal Liquid] GT SCH (21:45)
[2022-01-09] MEDS ORDERED: TAMSULOSIN HCL 0.4 MG CAP NR SCH (22:00)
[2022-01-09] MEDS ORDERED: INSULIN SLIDING SCALE (NOVOLOG) 1 VIAL SQ SCH (22:00)
[2022-01-09 23:04] LABS: BLOOD UREA NITROGEN 3.8 mg/dL (7-18); CALCIUM 8.4 mg/dL (8.5-10.1); CREATININE 0.2 mg/dL (0.55-1.3)
[2022-01-09] MEDS ORDERED: SCOPOLAMINE HYDROBROMIDE 1 PATCH PATCH.TD72 TD SCH (23:30)
[2022-01-10] MEDS: FLUTICASONE PROP 0.05% 16 GM NASAL SPRAY NS SCH ×2 (01:14→10:59)
[2022-01-10] MEDS: levETIRAcetam 500 MG/5 ML ORAL SOLUTION (UNIT-DOSE CUPS) GT SCH ×3 (01:15→21:38)
[2022-01-10] MEDS: APIXABAN 2.5 MG TABLET GT SCH ×3 (01:16→21:38)
[2022-01-10] MEDS: carBAMazepine 200 MG/10 ML UNIT-DOSE CUP GT SCH ×3 (01:16→21:38)
[2022-01-10] MEDS: clonazePAM 0.5 MG TABLET GT SCH ×4 (01:17→21:38)
[2022-01-10 02:28] VITALS: BMI 29.2
[2022-01-10] MEDS: BACLOFEN 10 MG TABLET (FP) GT SCH ×2 (05:57→11:36)
[2022-01-10] MEDS: BUDESONIDE 0.5 MG/2 ML INH SUSP VIAL NEB SCH ×2 (07:20→20:16)
[2022-01-10] MEDS: SCOPOLAMINE HYDROBROMIDE 1 PATCH PATCH.TD72 TD SCH (07:26)
[2022-01-10 08:43] LABS: BASO % 0.2 % (0-2.0); EOS % 0.1 % (0-4.5); HEMATOCRIT 37.8 % (35.4-49); HEMOGLOBIN 12.5 GM/dL (11.7-16.9); LYMPH % 11.3 % (8-40); MCH 28.2 pg (25.7-33.7); MEAN CELL VOLUME 85.4 fl (80-96); MEAN PLT VOLUME 7.5 fl (7.5-11.1); MONO % 9.6 % (3.8-10.2); NEUT % 78.8 % (42.8-82.8); PLATELET COUNT 285 10^3/uL (134-434); RBC 4.42 M/mm3 (4.00-5.60); RDW 14.8 % (11.9-15.9); WHITE BLOOD COUNT 7.2 K/mm3 (4.0-10.0)
[2022-01-10 09:07] LABS: ALBUMIN 3.1 g/dl (3.4-5.0); CALCIUM 8.3 mg/dL (8.5-10.1); MAGNESIUM 2.4 mg/dL (1.8-2.4)
[2022-01-10 09:08] LABS: BLOOD UREA NITROGEN 4.3 mg/dL (7-18)
[2022-01-10 09:10] LABS: CREATININE 0.3 mg/dL (0.55-1.3); PHOSPHOROUS 3.4 mg/dL (2.5-4.9)
[2022-01-10 09:12] LABS: BILIRUBIN,TOTAL 0.2 mg/dL (0.2-1); TOT PROT 7.3 g/dl (6.4-8.2)
[2022-01-10] MEDS ORDERED: ENOXAPARIN NA (PORCINE) 40 MG/0.4 ML DISP.SYRIN SQ SCH (10:00)
[2022-01-10] MEDS: CHOLECALCIFEROL (VIT D3) 1,000 UNIT (25 MCG) TABLET GT SCH (10:00)
[2022-01-10] MEDS: KCL 10 MEQ IVPB 10 MEQ/100 ML INFUS.BAG IVPB SCH ×3 (11:35→14:47)
[2022-01-10] MEDS ORDERED: POTASSIUM CHLORIDE ORAL LIQUID 20 MEQ/15 ML PO ONE (16:13)
[2022-01-11] MEDS: BACLOFEN 10 MG TABLET (FP) GT SCH ×2 (05:57→13:13)
[2022-01-11] MEDS: clonazePAM 0.5 MG TABLET GT SCH ×3 (05:57→21:01)
[2022-01-11 08:34] LABS: BASO % 0.6 % (0-2.0); EOS % 0.6 % (0-4.5); HEMATOCRIT 38.4 % (35.4-49); HEMOGLOBIN 13.1 GM/dL (11.7-16.9); LYMPH % 27.8 % (8-40); MCH 28.7 pg (25.7-33.7); MCHC 34.1 g/dl (32.0-35.9); MEAN CELL VOLUME 84.1 fl (80-96); MONO % 12.5 % (3.8-10.2); NEUT % 58.5 % (42.8-82.8); PLATELET COUNT 329 10^3/uL (134-434); RBC 4.56 M/mm3 (4.00-5.60); RDW 14.8 % (11.9-15.9); WHITE BLOOD COUNT 6.8 K/mm3 (4.0-10.0)
[2022-01-11 08:51] LABS: CALCIUM 8.7 mg/dL (8.5-10.1)
[2022-01-11 08:52] LABS: ALBUMIN 3.1 g/dl (3.4-5.0); BLOOD UREA NITROGEN 4.9 mg/dL (7-18); MAGNESIUM 2.4 mg/dL (1.8-2.4)
[2022-01-11 08:55] LABS: CREATININE 0.3 mg/dL (0.55-1.3); PHOSPHOROUS 3.8 mg/dL (2.5-4.9)
[2022-01-11 08:56] LABS: BILIRUBIN,TOTAL 0.2 mg/dL (0.2-1); TOT PROT 7.5 g/dl (6.4-8.2)
[2022-01-11] MEDS: BUDESONIDE 0.5 MG/2 ML INH SUSP VIAL NEB SCH ×2 (08:59→20:30)
[2022-01-11] MEDS: FAMOTIDINE 40 MG/5 ML ORAL SUSPENSION GT SCH ×2 (09:07→17:10)
[2022-01-11] MEDS: carBAMazepine 200 MG/10 ML UNIT-DOSE CUP GT SCH ×2 (09:23→21:05)
[2022-01-11] MEDS: APIXABAN 2.5 MG TABLET GT SCH ×2 (09:23→21:04)
[2022-01-11] MEDS: FLUTICASONE PROP 0.05% 16 GM NASAL SPRAY NS SCH (09:23)
[2022-01-11] MEDS: CHOLECALCIFEROL (VIT D3) 1,000 UNIT (25 MCG) TABLET GT SCH (09:23)
[2022-01-11] MEDS: levETIRAcetam 500 MG/5 ML ORAL SOLUTION (UNIT-DOSE CUPS) GT SCH ×2 (09:23→21:02)
[2022-01-11] MEDS ORDERED: ACETAMINOPHEN 1000 MG/100 ML BAG IVPB ONE (21:19)
[2022-01-12] MEDS: clonazePAM 0.5 MG TABLET GT SCH ×3 (05:11→21:55)
[2022-01-12] MEDS: BACLOFEN 10 MG TABLET (FP) GT SCH ×2 (05:11→11:38)
[2022-01-12] MEDS: BUDESONIDE 0.5 MG/2 ML INH SUSP VIAL NEB SCH ×2 (07:50→19:11)
[2022-01-12] MEDS: ALBUTEROL SO4 2.5/IPRATROPIUM 0.5 INH SOL 3 ML VIAL.NEB. NEB PRN ×2 (08:04→19:11)
[2022-01-12] MEDS: CHOLECALCIFEROL (VIT D3) 1,000 UNIT (25 MCG) TABLET GT SCH (09:45)
[2022-01-12] MEDS: APIXABAN 2.5 MG TABLET GT SCH ×2 (09:45→21:55)
[2022-01-12] MEDS: carBAMazepine 200 MG/10 ML UNIT-DOSE CUP GT SCH ×2 (09:46→21:55)
[2022-01-12] MEDS: levETIRAcetam 500 MG/5 ML ORAL SOLUTION (UNIT-DOSE CUPS) GT SCH ×2 (09:46→21:55)
[2022-01-12] MEDS: FLUTICASONE PROP 0.05% 16 GM NASAL SPRAY NS SCH (09:47)
[2022-01-12 12:37] LABS: BASO % 0.4 % (0-2.0); EOS % 0.9 % (0-4.5); HEMATOCRIT 41.6 % (35.4-49); LYMPH % 28.7 % (8-40); MCH 28.4 pg (25.7-33.7); MCHC 33.7 g/dl (32.0-35.9); MEAN CELL VOLUME 84.3 fl (80-96); MEAN PLT VOLUME 6.9 fl (7.5-11.1); MONO % 14.2 % (3.8-10.2); NEUT % 55.8 % (42.8-82.8); PLATELET COUNT 344 10^3/uL (134-434); RBC 4.93 M/mm3 (4.00-5.60); RDW 14.6 % (11.9-15.9); WHITE BLOOD COUNT 7.2 K/mm3 (4.0-10.0)
[2022-01-12 12:52] LABS: ALBUMIN 3.2 g/dl (3.4-5.0); BLOOD UREA NITROGEN 5.6 mg/dL (7-18); MAGNESIUM 2.3 mg/dL (1.8-2.4)
[2022-01-12 12:54] LABS: CREATININE 0.4 mg/dL (0.55-1.3); PHOSPHOROUS 4.6 mg/dL (2.5-4.9)
[2022-01-12 12:56] LABS: BILIRUBIN,TOTAL 0.4 mg/dL (0.2-1); TOT PROT 7.7 g/dl (6.4-8.2)
[2022-01-12] MEDS: SODIUM CHLORIDE 1,000 ML IV SCH (14:56)
[2022-01-12] MEDS: FAMOTIDINE 40 MG/5 ML ORAL SUSPENSION GT SCH (16:59)
[2022-01-13] MEDS ORDERED: ACETAMINOPHEN 1000 MG/100 ML BAG IVPB ONE (05:45)
[2022-01-13] MEDS: SCOPOLAMINE HYDROBROMIDE 1 PATCH PATCH.TD72 TD SCH (05:57)
[2022-01-13] MEDS: clonazePAM 0.5 MG TABLET GT SCH ×3 (05:57→23:12)
[2022-01-13] MEDS: BACLOFEN 10 MG TABLET (FP) GT SCH ×2 (05:58→11:35)
[2022-01-13 08:33] LABS: EPI CELLS 29 /uL (0-25.1); HYALINE CASTS 5 /uL (0-3.1); PH,URINE 8.5 (5.0-8.0); URINE APPEARANCE TURBID; URINE BACTERIA 107 /uL (0-1359); URINE BILIRUBIN NEGATIVE (NEGATIVE); URINE COLOR ORANGE; URINE GLUCOSE (UA) NEGATIVE (NEGATIVE); URINE KETONE NEGATIVE (NEGATIVE); URINE LEUK ESTERASE TRACE (NEGATIVE); URINE NITRITE NEGATIVE (NEGATIVE); URINE PROTEIN TRACE (NEGATIVE); URINE RBC 3469 /uL (0-23.9); URINE WBC 29 /uL (0-25.8)
[2022-01-13] MEDS: BUDESONIDE 0.5 MG/2 ML INH SUSP VIAL NEB SCH ×2 (08:34→20:16)
[2022-01-13] MEDS ORDERED: PIPERACILLIN/TAZOB 4.5 GM 3.375 GM in DEXTROSE 5%-WATER 100 ML IVPB SCH (11:30)
[2022-01-13] MEDS: carBAMazepine 200 MG/10 ML UNIT-DOSE CUP GT SCH ×2 (11:34→23:00)
[2022-01-13] MEDS: APIXABAN 2.5 MG TABLET GT SCH ×2 (11:34→23:12)
[2022-01-13] MEDS: levETIRAcetam 500 MG/5 ML ORAL SOLUTION (UNIT-DOSE CUPS) GT SCH ×2 (11:34→23:00)
[2022-01-13] MEDS: FLUTICASONE PROP 0.05% 16 GM NASAL SPRAY NS SCH (11:35)
[2022-01-13] MEDS: CHOLECALCIFEROL (VIT D3) 1,000 UNIT (25 MCG) TABLET GT SCH (11:35)
[2022-01-13] MEDS ORDERED: PIPERACILLIN/TAZOB 4.5 GM 4.5 GM in DEXTROSE 5%-WATER 100 ML IVPB SCH (12:00)
[2022-01-13] MEDS ORDERED: DEXTROSE 5%-WATER 100 ML IVPB ONE ×2 (12:42→18:19)
[2022-01-13] MEDS ORDERED: PIPERACILLIN/TAZOBACTAM 4.5 GM VIAL IVPB ONE ×2 (12:42→18:19)
[2022-01-13] MEDS: SODIUM CHLORIDE 1,000 ML IV SCH (13:05)
[2022-01-13] MEDS: FAMOTIDINE 40 MG/5 ML ORAL SUSPENSION GT SCH (18:30)
[2022-01-13] MEDS: PIPERACILLIN/TAZOB 4.5 GM 4.5 GM in DEXTROSE 5%-WATER 100 ML IVPB SCH (18:30)
[2022-01-13] MEDS: ALBUTEROL SO4 2.5/IPRATROPIUM 0.5 INH SOL 3 ML VIAL.NEB. NEB PRN (20:17)
[2022-01-14] MEDS: SODIUM CHLORIDE 1,000 ML IV SCH (00:37)
[2022-01-14] MEDS ORDERED: PIPERACILLIN/TAZOBACTAM 4.5 GM VIAL IVPB ONE ×3 (03:09→16:17)
[2022-01-14] MEDS ORDERED: DEXTROSE 5%-WATER 100 ML IVPB ONE ×3 (03:09→16:17)
[2022-01-14] MEDS: PIPERACILLIN/TAZOB 4.5 GM 4.5 GM in DEXTROSE 5%-WATER 100 ML IVPB SCH ×3 (03:10→17:33)
[2022-01-14] MEDS: BACLOFEN 10 MG TABLET (FP) GT SCH ×2 (06:07→13:15)
[2022-01-14] MEDS: clonazePAM 0.5 MG TABLET GT SCH ×3 (06:07→22:10)
[2022-01-14] MEDS: BUDESONIDE 0.5 MG/2 ML INH SUSP VIAL NEB SCH ×2 (08:10→19:48)
[2022-01-14] MEDS: SCOPOLAMINE HYDROBROMIDE 1 PATCH PATCH.TD72 TD SCH (09:39)
[2022-01-14] MEDS: carBAMazepine 200 MG/10 ML UNIT-DOSE CUP GT SCH ×2 (09:39→22:11)
[2022-01-14] MEDS: FLUTICASONE PROP 0.05% 16 GM NASAL SPRAY NS SCH (09:40)
[2022-01-14] MEDS: CHOLECALCIFEROL (VIT D3) 1,000 UNIT (25 MCG) TABLET GT SCH (09:40)
[2022-01-14] MEDS: APIXABAN 2.5 MG TABLET GT SCH ×2 (09:40→22:10)
[2022-01-14] MEDS: levETIRAcetam 500 MG/5 ML ORAL SOLUTION (UNIT-DOSE CUPS) GT SCH ×2 (09:40→22:10)
[2022-01-14 12:22] LABS: BASO % 0.3 % (0-2.0); EOS % 1.2 % (0-4.5); HEMATOCRIT 36.1 % (35.4-49); HEMOGLOBIN 12.2 GM/dL (11.7-16.9); LYMPH % 11.6 % (8-40); MCH 28.8 pg (25.7-33.7); MCHC 33.9 g/dl (32.0-35.9); MEAN PLT VOLUME 6.7 fl (7.5-11.1); MONO % 10.4 % (3.8-10.2); NEUT % 76.5 % (42.8-82.8); PLATELET COUNT 348 10^3/uL (134-434); RBC 4.25 M/mm3 (4.00-5.60); RDW 14.4 % (11.9-15.9); WHITE BLOOD COUNT 8.4 K/mm3 (4.0-10.0)
[2022-01-14 12:53] LABS: BLOOD UREA NITROGEN 8.2 mg/dL (7-18); CALCIUM 8.2 mg/dL (8.5-10.1); MAGNESIUM 2.2 mg/dL (1.8-2.4)
[2022-01-14 12:54] LABS: ALBUMIN 2.6 g/dl (3.4-5.0)
[2022-01-14 12:56] LABS: PHOSPHOROUS 3.5 mg/dL (2.5-4.9)
[2022-01-14 12:57] LABS: CREATININE 0.3 mg/dL (0.55-1.3)
[2022-01-14 12:58] LABS: BILIRUBIN,TOTAL 0.4 mg/dL (0.2-1); TOT PROT 6.8 g/dl (6.4-8.2)
[2022-01-14] MEDS: FAMOTIDINE 40 MG/5 ML ORAL SUSPENSION GT SCH (17:33)
[2022-01-15] MEDS: PIPERACILLIN/TAZOB 4.5 GM 4.5 GM in DEXTROSE 5%-WATER 100 ML IVPB SCH ×2 (01:22→09:39)
[2022-01-15] MEDS ORDERED: PIPERACILLIN/TAZOBACTAM 4.5 GM VIAL IVPB ONE ×2 (01:22→09:41)
[2022-01-15] MEDS ORDERED: DEXTROSE 5%-WATER 100 ML IVPB ONE ×2 (01:22→09:41)
[2022-01-15] MEDS: clonazePAM 0.5 MG TABLET GT SCH ×3 (06:12→21:52)
[2022-01-15] MEDS: BACLOFEN 10 MG TABLET (FP) GT SCH ×2 (06:12→16:20)
[2022-01-15] MEDS: BUDESONIDE 0.5 MG/2 ML INH SUSP VIAL NEB SCH ×2 (07:57→20:10)
[2022-01-15 08:31] LABS: BASO % 0.5 % (0-2.0); HEMATOCRIT 35.5 % (35.4-49); HEMOGLOBIN 11.7 GM/dL (11.7-16.9); MCH 28.2 pg (25.7-33.7); MEAN CELL VOLUME 85.4 fl (80-96); MEAN PLT VOLUME 6.9 fl (7.5-11.1); MONO % 13.5 % (3.8-10.2); PLATELET COUNT 398 10^3/uL (134-434); RBC 4.15 M/mm3 (4.00-5.60); RDW 14.7 % (11.9-15.9); WHITE BLOOD COUNT 7.6 K/mm3 (4.0-10.0)
[2022-01-15 09:07] LABS: CALCIUM 8.4 mg/dL (8.5-10.1)
[2022-01-15 09:08] LABS: ALBUMIN 2.6 g/dl (3.4-5.0); BLOOD UREA NITROGEN 9.4 mg/dL (7-18); MAGNESIUM 2.3 mg/dL (1.8-2.4)
[2022-01-15 09:10] LABS: CREATININE 0.3 mg/dL (0.55-1.3); PHOSPHOROUS 4.5 mg/dL (2.5-4.9)
[2022-01-15 09:11] LABS: BILIRUBIN,TOTAL 0.4 mg/dL (0.2-1)
[2022-01-15 09:12] LABS: TOT PROT 6.9 g/dl (6.4-8.2)
[2022-01-15] MEDS: APIXABAN 2.5 MG TABLET GT SCH ×2 (09:37→21:52)
[2022-01-15] MEDS: CHOLECALCIFEROL (VIT D3) 1,000 UNIT (25 MCG) TABLET GT SCH (09:38)
[2022-01-15] MEDS: levETIRAcetam 500 MG/5 ML ORAL SOLUTION (UNIT-DOSE CUPS) GT SCH ×2 (09:38→21:52)
[2022-01-15] MEDS: carBAMazepine 200 MG/10 ML UNIT-DOSE CUP GT SCH ×2 (09:38→21:52)
[2022-01-15] MEDS: FLUTICASONE PROP 0.05% 16 GM NASAL SPRAY NS SCH (09:39)
[2022-01-15] MEDS ORDERED: SODIUM CHLORIDE 1,000 ML IV SCH (10:15)
[2022-01-15] MEDS: POLYETHYLENE GLYCOL (HEALTHYLAX) 3350 17 GM PACKET PO SCH (16:20)
[2022-01-15] MEDS: FAMOTIDINE 40 MG/5 ML ORAL SUSPENSION GT SCH (18:56)
[2022-01-16] MEDS ORDERED: ACETAMINOPHEN 1000 MG/100 ML BAG IVPB ONE (02:15)
[2022-01-16] MEDS: SODIUM CHLORIDE 1,000 ML IV SCH (02:58)
[2022-01-16] MEDS: clonazePAM 0.5 MG TABLET GT SCH ×3 (06:14→22:38)
[2022-01-16] MEDS: BACLOFEN 10 MG TABLET (FP) GT SCH ×2 (06:14→11:46)
[2022-01-16] MEDS: BUDESONIDE 0.5 MG/2 ML INH SUSP VIAL NEB SCH ×2 (07:29→19:57)
[2022-01-16 08:01] LABS: BASO % 0.4 % (0-2.0); EOS % 1.7 % (0-4.5); HEMATOCRIT 34.4 % (35.4-49); HEMOGLOBIN 11.8 GM/dL (11.7-16.9); LYMPH % 26.9 % (8-40); MCH 28.6 pg (25.7-33.7); MCHC 34.3 g/dl (32.0-35.9); MEAN CELL VOLUME 83.4 fl (80-96); MEAN PLT VOLUME 6.6 fl (7.5-11.1); MONO % 14.9 % (3.8-10.2); NEUT % 56.1 % (42.8-82.8); PLATELET COUNT 367 10^3/uL (134-434); RBC 4.13 M/mm3 (4.00-5.60); RDW 14.4 % (11.9-15.9); WHITE BLOOD COUNT 7.2 K/mm3 (4.0-10.0)
[2022-01-16 08:23] LABS: ALBUMIN 2.5 g/dl (3.4-5.0); BLOOD UREA NITROGEN 5.4 mg/dL (7-18); CALCIUM 8.2 mg/dL (8.5-10.1); MAGNESIUM 2.1 mg/dL (1.8-2.4)
[2022-01-16 08:26] LABS: CREATININE 0.2 mg/dL (0.55-1.3); PHOSPHOROUS 4.4 mg/dL (2.5-4.9)
[2022-01-16 08:28] LABS: BILIRUBIN,TOTAL 0.5 mg/dL (0.2-1); TOT PROT 6.8 g/dl (6.4-8.2)
[2022-01-16] MEDS: CHOLECALCIFEROL (VIT D3) 1,000 UNIT (25 MCG) TABLET GT SCH (11:46)
[2022-01-16] MEDS: APIXABAN 2.5 MG TABLET GT SCH ×2 (11:46→22:39)
[2022-01-16] MEDS: POLYETHYLENE GLYCOL (HEALTHYLAX) 3350 17 GM PACKET PO SCH (11:49)
[2022-01-16] MEDS: FLUTICASONE PROP 0.05% 16 GM NASAL SPRAY NS SCH (11:49)
[2022-01-16] MEDS: carBAMazepine 200 MG/10 ML UNIT-DOSE CUP GT SCH ×2 (11:50→22:39)
[2022-01-16] MEDS: levETIRAcetam 500 MG/5 ML ORAL SOLUTION (UNIT-DOSE CUPS) GT SCH ×2 (11:50→22:40)
[2022-01-16] MEDS ORDERED: SODIUM CHLORIDE 1,000 ML IV SCH (14:35)
[2022-01-16] MEDS: FAMOTIDINE 40 MG/5 ML ORAL SUSPENSION GT SCH (18:45)
[2022-01-17] MEDS: BACLOFEN 10 MG TABLET (FP) GT SCH ×2 (05:07→15:54)
[2022-01-17] MEDS: clonazePAM 0.5 MG TABLET GT SCH ×3 (05:08→22:06)
[2022-01-17 08:18] LABS: BASO % 0.3 % (0-2.0); HEMATOCRIT 35.8 % (35.4-49); HEMOGLOBIN 12.1 GM/dL (11.7-16.9); LYMPH % 10.3 % (8-40); MCH 28.3 pg (25.7-33.7); MCHC 33.7 g/dl (32.0-35.9); MEAN PLT VOLUME 7.3 fl (7.5-11.1); MONO % 7.6 % (3.8-10.2); NEUT % 81.8 % (42.8-82.8); PLATELET COUNT 463 10^3/uL (134-434); RBC 4.26 M/mm3 (4.00-5.60); RDW 14.5 % (11.9-15.9); WHITE BLOOD COUNT 10.7 K/mm3 (4.0-10.0)
[2022-01-17] MEDS: BUDESONIDE 0.5 MG/2 ML INH SUSP VIAL NEB SCH ×2 (08:45→20:39)
[2022-01-17 08:46] LABS: ALBUMIN 2.8 g/dl (3.4-5.0)
[2022-01-17 08:47] LABS: MAGNESIUM 2.2 mg/dL (1.8-2.4)
[2022-01-17 08:48] LABS: CALCIUM 8.8 mg/dL (8.5-10.1)
[2022-01-17 08:49] LABS: PHOSPHOROUS 3.4 mg/dL (2.5-4.9)
[2022-01-17 08:50] LABS: CREATININE 0.2 mg/dL (0.55-1.3)
[2022-01-17 08:51] LABS: BILIRUBIN,TOTAL 0.6 mg/dL (0.2-1); TOT PROT 7.8 g/dl (6.4-8.2)
[2022-01-17 08:55] LABS: BLOOD UREA NITROGEN 6.1 mg/dL (7-18)
[2022-01-17] MEDS: POLYETHYLENE GLYCOL (HEALTHYLAX) 3350 17 GM PACKET PO SCH ×2 (09:53→16:03)
[2022-01-17] MEDS: APIXABAN 2.5 MG TABLET GT SCH ×3 (09:53→22:06)
[2022-01-17] MEDS: SCOPOLAMINE HYDROBROMIDE 1 PATCH PATCH.TD72 TD SCH (09:53)
[2022-01-17] MEDS: CHOLECALCIFEROL (VIT D3) 1,000 UNIT (25 MCG) TABLET GT SCH ×2 (09:53→16:01)
[2022-01-17] MEDS: levETIRAcetam 500 MG/5 ML ORAL SOLUTION (UNIT-DOSE CUPS) GT SCH ×3 (09:54→22:07)
[2022-01-17] MEDS: carBAMazepine 200 MG/10 ML UNIT-DOSE CUP GT SCH ×3 (09:55→22:07)
[2022-01-17] MEDS: FLUTICASONE PROP 0.05% 16 GM NASAL SPRAY NS SCH (09:56)
[2022-01-17] MEDS: SODIUM CHLORIDE 1,000 ML IV SCH (12:04)
[2022-01-17] MEDS ORDERED: TUBE FEED DECLOGGING SOLUTION 12,000 UNITS GT ONE (13:00)
[2022-01-17] MEDS: ACETAMINOPHEN 650 MG/20.3 ML ORAL SOLUTION (CUPS) GT PRN ×2 (16:43→22:37)
[2022-01-17] MEDS: FAMOTIDINE 40 MG/5 ML ORAL SUSPENSION GT SCH (17:18)
[2022-01-18 01:32] LABS: EPI CELLS 6 /uL (0-25.1); HYALINE CASTS 44 /uL (0-3.1); PH,URINE 5.5 (5.0-8.0); URINE APPEARANCE TURBID; URINE BILIRUBIN 1+ (NEGATIVE); URINE COLOR RED; URINE GLUCOSE (UA) NEGATIVE (NEGATIVE); URINE KETONE NEGATIVE (NEGATIVE); URINE LEUK ESTERASE 2+ (NEGATIVE); URINE NITRITE POSITIVE (NEGATIVE); URINE PROTEIN 2+ (NEGATIVE); URINE RBC 18216 /uL (0-23.9); URINE UROBILINOGEN 0.2 mg/dL (0.2-1.0); URINE WBC 39 /uL (0-25.8)
[2022-01-18] MEDS: BACLOFEN 10 MG TABLET (FP) GT SCH ×2 (05:55→13:21)
[2022-01-18] MEDS: clonazePAM 0.5 MG TABLET GT SCH ×2 (05:55→13:21)
[2022-01-18] MEDS: SODIUM CHLORIDE 1,000 ML IV SCH ×2 (05:56→13:21)
[2022-01-18] MEDS: BUDESONIDE 0.5 MG/2 ML INH SUSP VIAL NEB SCH ×2 (08:56→20:01)
[2022-01-18 09:07] LABS: BASO % 0.3 % (0-2.0); EOS % 0.1 % (0-4.5); HEMATOCRIT 34.4 % (35.4-49); HEMOGLOBIN 11.5 GM/dL (11.7-16.9); LYMPH % 14.7 % (8-40); MCH 28.1 pg (25.7-33.7); MCHC 33.5 g/dl (32.0-35.9); MEAN CELL VOLUME 83.9 fl (80-96); MONO % 10.2 % (3.8-10.2); NEUT % 74.7 % (42.8-82.8); PLATELET COUNT 462 10^3/uL (134-434); RDW 14.5 % (11.9-15.9); WHITE BLOOD COUNT 9.5 K/mm3 (4.0-10.0)
[2022-01-18 09:38] LABS: CALCIUM 8.6 mg/dL (8.5-10.1)
[2022-01-18 09:39] LABS: ALBUMIN 2.5 g/dl (3.4-5.0); BLOOD UREA NITROGEN 6.4 mg/dL (7-18); MAGNESIUM 2.4 mg/dL (1.8-2.4)
[2022-01-18 09:42] LABS: CREATININE 0.2 mg/dL (0.55-1.3); PHOSPHOROUS 3.1 mg/dL (2.5-4.9)
[2022-01-18 09:43] LABS: BILIRUBIN,TOTAL 0.5 mg/dL (0.2-1)
[2022-01-18] MEDS: APIXABAN 2.5 MG TABLET GT SCH (09:51)
[2022-01-18] MEDS: CHOLECALCIFEROL (VIT D3) 1,000 UNIT (25 MCG) TABLET GT SCH (09:51)
[2022-01-18] MEDS: carBAMazepine 200 MG/10 ML UNIT-DOSE CUP GT SCH (09:52)
[2022-01-18] MEDS: levETIRAcetam 500 MG/5 ML ORAL SOLUTION (UNIT-DOSE CUPS) GT SCH (09:53)
[2022-01-18] MEDS: FLUTICASONE PROP 0.05% 16 GM NASAL SPRAY NS SCH (09:54)
[2022-01-18] MEDS: POLYETHYLENE GLYCOL (HEALTHYLAX) 3350 17 GM PACKET PO SCH (09:54)
[2022-01-18 13:13] LABS: EPI CELLS >36 /uL (0-25.1); HYALINE CASTS 45 /uL (0-3.1); PH,URINE 6.5 (5.0-8.0); URINE APPEARANCE TURBID; URINE BILIRUBIN 1+ (NEGATIVE); URINE COLOR RED; URINE GLUCOSE (UA) NEGATIVE (NEGATIVE); URINE KETONE NEGATIVE (NEGATIVE); URINE LEUK ESTERASE 2+ (NEGATIVE); URINE NITRITE POSITIVE (NEGATIVE); URINE PROTEIN 3+ (NEGATIVE); URINE WBC 37 /uL (0-25.8)
[2022-01-18 13:41] LABS: URINE RBC 26245.7 /uL (0-23.9); YEAST NEGATIVE (NEGATIVE)
[2022-01-18] MEDS: FAMOTIDINE 40 MG/5 ML ORAL SUSPENSION GT SCH (17:28)
[2022-01-19] MEDS ORDERED: DEXTROSE 5%-WATER 100 ML IVPB ONE ×3 (00:39→22:00)
[2022-01-19] MEDS ORDERED: CEFEPIME HCL 1 GM VIAL (RESTRICTED TO ID) ONE ×3 (00:39→22:00)
[2022-01-19] MEDS: levETIRAcetam 500 MG/5 ML ORAL SOLUTION (UNIT-DOSE CUPS) GT SCH ×3 (00:45→23:00)
[2022-01-19] MEDS: carBAMazepine 200 MG/10 ML UNIT-DOSE CUP GT SCH ×3 (00:45→23:00)
[2022-01-19] MEDS: clonazePAM 0.5 MG TABLET GT SCH ×4 (00:45→23:00)
[2022-01-19] MEDS: CEFEPIME 1 GM in DEXTROSE 5%-WATER 100 ML IVPB SCH ×3 (00:46→23:00)
[2022-01-19] MEDS: APIXABAN 2.5 MG TABLET GT SCH ×3 (00:46→23:00)
[2022-01-19] MEDS: ACETAMINOPHEN 650 MG/20.3 ML ORAL SOLUTION (CUPS) GT PRN (00:52)
[2022-01-19] MEDS: SODIUM CHLORIDE 1,000 ML IV SCH ×2 (02:41→12:46)
[2022-01-19] MEDS: BACLOFEN 10 MG TABLET (FP) GT SCH ×2 (06:30→12:47)
[2022-01-19] MEDS: BUDESONIDE 0.5 MG/2 ML INH SUSP VIAL NEB SCH ×2 (08:43→20:08)
[2022-01-19 09:06] LABS: BASO % 0.4 % (0-2.0); HEMOGLOBIN 10.8 GM/dL (11.7-16.9); LYMPH % 18.2 % (8-40); MCH 28.8 pg (25.7-33.7); MCHC 33.8 g/dl (32.0-35.9); MEAN CELL VOLUME 85.2 fl (80-96); MONO % 13.4 % (3.8-10.2); PLATELET COUNT 460 10^3/uL (134-434); RBC 3.76 M/mm3 (4.00-5.60); RDW 14.3 % (11.9-15.9); WHITE BLOOD COUNT 9.3 K/mm3 (4.0-10.0)
[2022-01-19 10:03] LABS: CALCIUM 8.2 mg/dL (8.5-10.1)
[2022-01-19 10:04] LABS: ALBUMIN 2.4 g/dl (3.4-5.0); BLOOD UREA NITROGEN 6.2 mg/dL (7-18); MAGNESIUM 2.3 mg/dL (1.8-2.4)
[2022-01-19 10:07] LABS: PHOSPHOROUS 4.4 mg/dL (2.5-4.9)
[2022-01-19 10:08] LABS: BILIRUBIN,TOTAL 0.8 mg/dL (0.2-1); TOT PROT 6.7 g/dl (6.4-8.2)
[2022-01-19 10:22] LABS: CREATININE 0.2 mg/dL (0.55-1.3)
[2022-01-19] MEDS: POLYETHYLENE GLYCOL (HEALTHYLAX) 3350 17 GM PACKET PO SCH (10:59)
[2022-01-19] MEDS: FLUTICASONE PROP 0.05% 16 GM NASAL SPRAY NS SCH (11:00)
[2022-01-19] MEDS: CHOLECALCIFEROL (VIT D3) 1,000 UNIT (25 MCG) TABLET GT SCH (11:00)
[2022-01-19] MEDS: FAMOTIDINE 40 MG/5 ML ORAL SUSPENSION GT SCH (18:17)
[2022-01-20] MEDS: clonazePAM 0.5 MG TABLET GT SCH ×3 (06:10→23:00)
[2022-01-20] MEDS: BACLOFEN 10 MG TABLET (FP) GT SCH ×2 (06:10→13:35)
[2022-01-20] MEDS: BUDESONIDE 0.5 MG/2 ML INH SUSP VIAL NEB SCH ×2 (08:07→20:30)
[2022-01-20 08:45] LABS: BASO % 0.6 % (0-2.0); EOS % 0.5 % (0-4.5); HEMATOCRIT 31.4 % (35.4-49); HEMOGLOBIN 10.6 GM/dL (11.7-16.9); MCH 28.3 pg (25.7-33.7); MCHC 33.6 g/dl (32.0-35.9); MEAN CELL VOLUME 84.3 fl (80-96); MEAN PLT VOLUME 7.2 fl (7.5-11.1); MONO % 10.4 % (3.8-10.2); NEUT % 72.5 % (42.8-82.8); PLATELET COUNT 542 10^3/uL (134-434); RBC 3.73 M/mm3 (4.00-5.60); RDW 15.1 % (11.9-15.9); WHITE BLOOD COUNT 8.7 K/mm3 (4.0-10.0)
[2022-01-20 09:06] LABS: ALBUMIN 2.4 g/dl (3.4-5.0); BLOOD UREA NITROGEN 5.7 mg/dL (7-18); CALCIUM 8.1 mg/dL (8.5-10.1)
[2022-01-20 09:07] LABS: MAGNESIUM 2.2 mg/dL (1.8-2.4)
[2022-01-20 09:08] LABS: PHOSPHOROUS 3.4 mg/dL (2.5-4.9)
[2022-01-20 09:09] LABS: CREATININE 0.2 mg/dL (0.55-1.3); TOT PROT 6.8 g/dl (6.4-8.2)
[2022-01-20 09:10] LABS: BILIRUBIN,TOTAL 0.2 mg/dL (0.2-1)
[2022-01-20] MEDS ORDERED: CEFEPIME HCL 1 GM VIAL (RESTRICTED TO ID) ONE ×2 (09:12→22:53)
[2022-01-20] MEDS ORDERED: DEXTROSE 5%-WATER 100 ML IVPB ONE ×2 (09:13→22:53)
[2022-01-20] MEDS: CEFEPIME 1 GM in DEXTROSE 5%-WATER 100 ML IVPB SCH ×2 (10:02→23:07)
[2022-01-20] MEDS: levETIRAcetam 500 MG/5 ML ORAL SOLUTION (UNIT-DOSE CUPS) GT SCH ×2 (10:03→23:00)
[2022-01-20] MEDS: carBAMazepine 200 MG/10 ML UNIT-DOSE CUP GT SCH ×2 (10:03→23:00)
[2022-01-20] MEDS: POLYETHYLENE GLYCOL (HEALTHYLAX) 3350 17 GM PACKET PO SCH (10:03)
[2022-01-20] MEDS: CHOLECALCIFEROL (VIT D3) 1,000 UNIT (25 MCG) TABLET GT SCH (10:04)
[2022-01-20] MEDS: SCOPOLAMINE HYDROBROMIDE 1 PATCH PATCH.TD72 TD SCH (10:04)
[2022-01-20] MEDS: APIXABAN 2.5 MG TABLET GT SCH ×2 (10:04→23:05)
[2022-01-20] MEDS: FLUTICASONE PROP 0.05% 16 GM NASAL SPRAY NS SCH (10:05)
[2022-01-20] MEDS: ACETAMINOPHEN 650 MG/20.3 ML ORAL SOLUTION (CUPS) GT PRN (13:35)
[2022-01-20] MEDS: FAMOTIDINE 40 MG/5 ML ORAL SUSPENSION GT SCH (17:48)
[2022-01-21] MEDS: ACETAMINOPHEN 650 MG/20.3 ML ORAL SOLUTION (CUPS) GT PRN ×3 (01:17→21:41)
[2022-01-21] MEDS: BACLOFEN 10 MG TABLET (FP) GT SCH ×2 (06:41→11:42)
[2022-01-21] MEDS: clonazePAM 0.5 MG TABLET GT SCH ×3 (06:41→21:43)
[2022-01-21] MEDS: BUDESONIDE 0.5 MG/2 ML INH SUSP VIAL NEB SCH ×2 (08:10→19:30)
[2022-01-21 09:01] LABS: BASO % 0.4 % (0-2.0); EOS % 0.8 % (0-4.5); HEMATOCRIT 33.2 % (35.4-49); HEMOGLOBIN 11.1 GM/dL (11.7-16.9); LYMPH % 20.8 % (8-40); MCH 28.2 pg (25.7-33.7); MCHC 33.4 g/dl (32.0-35.9); MEAN CELL VOLUME 84.5 fl (80-96); MEAN PLT VOLUME 6.7 fl (7.5-11.1); PLATELET COUNT 593 10^3/uL (134-434); RBC 3.93 M/mm3 (4.00-5.60); RDW 14.5 % (11.9-15.9); WHITE BLOOD COUNT 7.6 K/mm3 (4.0-10.0)
[2022-01-21 10:07] LABS: BLOOD UREA NITROGEN 6.3 mg/dL (7-18); CALCIUM 8.5 mg/dL (8.5-10.1); MAGNESIUM 2.4 mg/dL (1.8-2.4)
[2022-01-21 10:08] LABS: ALBUMIN 2.4 g/dl (3.4-5.0)
[2022-01-21 10:10] LABS: PHOSPHOROUS 4.1 mg/dL (2.5-4.9)
[2022-01-21 10:11] LABS: BILIRUBIN,TOTAL 0.4 mg/dL (0.2-1); CREATININE 0.3 mg/dL (0.55-1.3)
[2022-01-21] MEDS: levETIRAcetam 500 MG/5 ML ORAL SOLUTION (UNIT-DOSE CUPS) GT SCH ×2 (11:42→22:15)
[2022-01-21] MEDS: APIXABAN 2.5 MG TABLET GT SCH ×2 (11:42→21:43)
[2022-01-21] MEDS: carBAMazepine 200 MG/10 ML UNIT-DOSE CUP GT SCH ×2 (11:42→21:43)
[2022-01-21] MEDS: POLYETHYLENE GLYCOL (HEALTHYLAX) 3350 17 GM PACKET PO SCH (11:42)
[2022-01-21] MEDS: CHOLECALCIFEROL (VIT D3) 1,000 UNIT (25 MCG) TABLET GT SCH (11:42)
[2022-01-21] MEDS: FLUTICASONE PROP 0.05% 16 GM NASAL SPRAY NS SCH (11:43)
[2022-01-21] MEDS: FAMOTIDINE 40 MG/5 ML ORAL SUSPENSION GT SCH (17:46)
[2022-01-22] MEDS: clonazePAM 0.5 MG TABLET GT SCH ×3 (05:34→22:35)
[2022-01-22] MEDS: BACLOFEN 10 MG TABLET (FP) GT SCH ×2 (05:34→13:58)
[2022-01-22] MEDS: ACETAMINOPHEN 650 MG/20.3 ML ORAL SOLUTION (CUPS) GT PRN (05:34)
[2022-01-22 09:30] LABS: BASO % 0.3 % (0-2.0); EOS % 0.7 % (0-4.5); HEMATOCRIT 33.2 % (35.4-49); HEMOGLOBIN 11.4 GM/dL (11.7-16.9); LYMPH % 20.6 % (8-40); MCH 28.8 pg (25.7-33.7); MCHC 34.4 g/dl (32.0-35.9); MEAN CELL VOLUME 83.8 fl (80-96); MEAN PLT VOLUME 6.8 fl (7.5-11.1); MONO % 9.8 % (3.8-10.2); NEUT % 68.6 % (42.8-82.8); PLATELET COUNT 658 10^3/uL (134-434); RBC 3.96 M/mm3 (4.00-5.60); RDW 14.8 % (11.9-15.9); WHITE BLOOD COUNT 9.6 K/mm3 (4.0-10.0)
[2022-01-22] MEDS: CHOLECALCIFEROL (VIT D3) 1,000 UNIT (25 MCG) TABLET GT SCH (09:41)
[2022-01-22] MEDS: levETIRAcetam 500 MG/5 ML ORAL SOLUTION (UNIT-DOSE CUPS) GT SCH ×2 (09:41→22:35)
[2022-01-22] MEDS: carBAMazepine 200 MG/10 ML UNIT-DOSE CUP GT SCH ×2 (09:41→22:35)
[2022-01-22] MEDS: FLUTICASONE PROP 0.05% 16 GM NASAL SPRAY NS SCH (09:41)
[2022-01-22] MEDS: POLYETHYLENE GLYCOL (HEALTHYLAX) 3350 17 GM PACKET PO SCH (09:41)
[2022-01-22] MEDS: APIXABAN 2.5 MG TABLET GT SCH ×2 (09:41→22:35)
[2022-01-22] MEDS: BUDESONIDE 0.5 MG/2 ML INH SUSP VIAL NEB SCH ×2 (09:56→20:00)
[2022-01-22 10:00] LABS: CALCIUM 8.5 mg/dL (8.5-10.1)
[2022-01-22 10:01] LABS: ALBUMIN 2.5 g/dl (3.4-5.0)
[2022-01-22 10:02] LABS: MAGNESIUM 2.5 mg/dL (1.8-2.4)
[2022-01-22 10:03] LABS: CREATININE 0.3 mg/dL (0.55-1.3); PHOSPHOROUS 4.8 mg/dL (2.5-4.9)
[2022-01-22 10:05] LABS: BILIRUBIN,TOTAL 0.9 mg/dL (0.2-1); TOT PROT 7.6 g/dl (6.4-8.2)
[2022-01-22] MEDS: FAMOTIDINE 40 MG/5 ML ORAL SUSPENSION GT SCH (17:07)
[2022-01-23] MEDS: clonazePAM 0.5 MG TABLET GT SCH ×3 (06:36→22:29)
[2022-01-23] MEDS: BACLOFEN 10 MG TABLET (FP) GT SCH ×3 (06:36→18:31)
[2022-01-23] MEDS: ACETAMINOPHEN 650 MG/20.3 ML ORAL SOLUTION (CUPS) GT PRN (06:37)
[2022-01-23] MEDS: BUDESONIDE 0.5 MG/2 ML INH SUSP VIAL NEB SCH ×2 (08:35→20:16)
[2022-01-23 08:52] LABS: BASO % 0.6 % (0-2.0); EOS % 1.1 % (0-4.5); HEMATOCRIT 33.3 % (35.4-49); LYMPH % 18.7 % (8-40); MCH 28.1 pg (25.7-33.7); MEAN CELL VOLUME 85.1 fl (80-96); MEAN PLT VOLUME 6.8 fl (7.5-11.1); MONO % 9.5 % (3.8-10.2); NEUT % 70.1 % (42.8-82.8); PLATELET COUNT 711 10^3/uL (134-434); RBC 3.92 M/mm3 (4.00-5.60); RDW 14.6 % (11.9-15.9); WHITE BLOOD COUNT 8.4 K/mm3 (4.0-10.0)
[2022-01-23 09:14] LABS: CALCIUM 8.8 mg/dL (8.5-10.1)
[2022-01-23 09:15] LABS: ALBUMIN 2.5 g/dl (3.4-5.0); MAGNESIUM 2.5 mg/dL (1.8-2.4)
[2022-01-23 09:18] LABS: CREATININE 0.3 mg/dL (0.55-1.3); PHOSPHOROUS 4.5 mg/dL (2.5-4.9)
[2022-01-23 09:19] LABS: TOT PROT 7.6 g/dl (6.4-8.2)
[2022-01-23 09:20] LABS: BILIRUBIN,TOTAL 0.3 mg/dL (0.2-1)
[2022-01-23] MEDS: CHOLECALCIFEROL (VIT D3) 1,000 UNIT (25 MCG) TABLET GT SCH (11:26)
[2022-01-23] MEDS: APIXABAN 2.5 MG TABLET GT SCH ×2 (11:26→22:30)
[2022-01-23] MEDS: levETIRAcetam 500 MG/5 ML ORAL SOLUTION (UNIT-DOSE CUPS) GT SCH ×2 (11:27→22:30)
[2022-01-23] MEDS: carBAMazepine 200 MG/10 ML UNIT-DOSE CUP GT SCH ×2 (11:28→22:31)
[2022-01-23] MEDS: POLYETHYLENE GLYCOL (HEALTHYLAX) 3350 17 GM PACKET PO SCH (11:30)
[2022-01-23] MEDS: SCOPOLAMINE HYDROBROMIDE 1 PATCH PATCH.TD72 TD SCH (11:30)
[2022-01-23] MEDS: FLUTICASONE PROP 0.05% 16 GM NASAL SPRAY NS SCH (11:30)
[2022-01-23] MEDS: METOPROLOL TARTRATE 25 MG TABLET (FP) GT SCH ×2 (15:31→22:29)
[2022-01-23] MEDS: amLODIPine BESYLATE 2.5 MG TABLET (FP) GT SCH (15:31)
[2022-01-23] MEDS: FAMOTIDINE 40 MG/5 ML ORAL SUSPENSION GT SCH (18:31)
[2022-01-24] MEDS: BACLOFEN 10 MG TABLET (FP) GT SCH ×5 (01:33→23:19)
[2022-01-24] MEDS: ACETAMINOPHEN 650 MG/20.3 ML ORAL SOLUTION (CUPS) GT PRN ×2 (02:34→23:33)
[2022-01-24] MEDS: clonazePAM 0.5 MG TABLET GT SCH ×3 (06:45→23:18)
[2022-01-24] MEDS: BUDESONIDE 0.5 MG/2 ML INH SUSP VIAL NEB SCH ×2 (07:23→20:45)
[2022-01-24 08:48] LABS: BASO % 0.3 % (0-2.0); EOS % 0.1 % (0-4.5); HEMOGLOBIN 12.1 GM/dL (11.7-16.9); LYMPH % 8.4 % (8-40); MCH 28.4 pg (25.7-33.7); MCHC 33.6 g/dl (32.0-35.9); MEAN CELL VOLUME 84.5 fl (80-96); MEAN PLT VOLUME 6.8 fl (7.5-11.1); NEUT % 83.2 % (42.8-82.8); PLATELET COUNT 772 10^3/uL (134-434); RBC 4.26 M/mm3 (4.00-5.60); WHITE BLOOD COUNT 11.6 K/mm3 (4.0-10.0)
[2022-01-24 09:10] LABS: CALCIUM 9.2 mg/dL (8.5-10.1)
[2022-01-24 09:11] LABS: ALBUMIN 2.8 g/dl (3.4-5.0); BLOOD UREA NITROGEN 16.3 mg/dL (7-18); MAGNESIUM 2.6 mg/dL (1.8-2.4)
[2022-01-24 09:14] LABS: CREATININE 0.5 mg/dL (0.55-1.3)
[2022-01-24 09:16] LABS: BILIRUBIN,TOTAL 0.4 mg/dL (0.2-1); TOT PROT 8.7 g/dl (6.4-8.2)
[2022-01-24] MEDS: METOPROLOL TARTRATE 25 MG TABLET (FP) GT SCH ×2 (10:43→23:17)
[2022-01-24] MEDS: CHOLECALCIFEROL (VIT D3) 1,000 UNIT (25 MCG) TABLET GT SCH (10:43)
[2022-01-24] MEDS: APIXABAN 2.5 MG TABLET GT SCH ×2 (10:43→23:18)
[2022-01-24] MEDS: POLYETHYLENE GLYCOL (HEALTHYLAX) 3350 17 GM PACKET PO SCH (10:44)
[2022-01-24] MEDS: carBAMazepine 200 MG/10 ML UNIT-DOSE CUP GT SCH ×2 (10:44→23:18)
[2022-01-24] MEDS: FLUTICASONE PROP 0.05% 16 GM NASAL SPRAY NS SCH (10:44)
[2022-01-24] MEDS: levETIRAcetam 500 MG/5 ML ORAL SOLUTION (UNIT-DOSE CUPS) GT SCH ×2 (10:44→23:19)
[2022-01-24] MEDS: amLODIPine BESYLATE 2.5 MG TABLET (FP) GT SCH (13:35)
[2022-01-24 15:45] LABS: EPI CELLS 27 /uL (0-25.1); HYALINE CASTS 5 /uL (0-3.1); PH,URINE 7.5 (5.0-8.0); URINE APPEARANCE CLOUDY; URINE BACTERIA 32 /uL (0-1359); URINE BILIRUBIN NEGATIVE (NEGATIVE); URINE COLOR DK YELLOW; URINE GLUCOSE (UA) NEGATIVE (NEGATIVE); URINE KETONE NEGATIVE (NEGATIVE); URINE LEUK ESTERASE TRACE (NEGATIVE); URINE NITRITE NEGATIVE (NEGATIVE); URINE PROTEIN 2+ (NEGATIVE); URINE RBC 9245 /uL (0-23.9); URINE WBC 34 /uL (0-25.8)
[2022-01-24 18:32] LABS: URINE CRYSTALS NONE SEEN /hpf
[2022-01-24] MEDS: FAMOTIDINE 40 MG/5 ML ORAL SUSPENSION GT SCH (18:48)
[2022-01-25] MEDS: BACLOFEN 10 MG TABLET (FP) GT SCH ×3 (05:35→17:01)
[2022-01-25] MEDS: clonazePAM 0.5 MG TABLET GT SCH ×3 (05:35→21:28)
[2022-01-25] MEDS: BUDESONIDE 0.5 MG/2 ML INH SUSP VIAL NEB SCH ×2 (07:15→20:06)
[2022-01-25 08:50] LABS: BASO % 0.3 % (0-2.0); HEMATOCRIT 34.6 % (35.4-49); HEMOGLOBIN 11.8 GM/dL (11.7-16.9); LYMPH % 25.3 % (8-40); MCH 29.2 pg (25.7-33.7); MCHC 34.1 g/dl (32.0-35.9); MEAN CELL VOLUME 85.5 fl (80-96); MEAN PLT VOLUME 6.8 fl (7.5-11.1); MONO % 9.8 % (3.8-10.2); NEUT % 60.6 % (42.8-82.8); PLATELET COUNT 669 10^3/uL (134-434); RBC 4.05 M/mm3 (4.00-5.60); RDW 14.9 % (11.9-15.9); WHITE BLOOD COUNT 6.8 K/mm3 (4.0-10.0)
[2022-01-25] MEDS: POLYETHYLENE GLYCOL (HEALTHYLAX) 3350 17 GM PACKET PO SCH (09:02)
[2022-01-25] MEDS: METOPROLOL TARTRATE 25 MG TABLET (FP) GT SCH ×2 (09:03→21:29)
[2022-01-25] MEDS: carBAMazepine 200 MG/10 ML UNIT-DOSE CUP GT SCH ×2 (09:03→21:30)
[2022-01-25] MEDS: APIXABAN 2.5 MG TABLET GT SCH ×2 (09:03→21:29)
[2022-01-25] MEDS: CHOLECALCIFEROL (VIT D3) 1,000 UNIT (25 MCG) TABLET GT SCH (09:03)
[2022-01-25] MEDS: FLUTICASONE PROP 0.05% 16 GM NASAL SPRAY NS SCH (09:04)
[2022-01-25] MEDS: levETIRAcetam 500 MG/5 ML ORAL SOLUTION (UNIT-DOSE CUPS) GT SCH ×2 (09:04→21:29)
[2022-01-25 09:09] LABS: BLOOD UREA NITROGEN 23.4 mg/dL (7-18); CALCIUM 8.8 mg/dL (8.5-10.1); MAGNESIUM 2.6 mg/dL (1.8-2.4)
[2022-01-25 09:12] LABS: CREATININE 0.4 mg/dL (0.55-1.3); PHOSPHOROUS 4.8 mg/dL (2.5-4.9)
[2022-01-25] MEDS: amLODIPine BESYLATE 2.5 MG TABLET (FP) GT SCH (11:41)
[2022-01-25] MEDS: ACETAMINOPHEN 650 MG/20.3 ML ORAL SOLUTION (CUPS) GT PRN (15:07)
[2022-01-25] MEDS: FAMOTIDINE 40 MG/5 ML ORAL SUSPENSION GT SCH (17:01)
[2022-01-25] MEDS ORDERED: SODIUM CHLORIDE 250 ML IV STA (21:45)
[2022-01-26] MEDS: BACLOFEN 10 MG TABLET (FP) GT SCH ×4 (00:04→17:01)
[2022-01-26] MEDS: clonazePAM 0.5 MG TABLET GT SCH ×3 (06:32→22:19)
[2022-01-26] MEDS: BUDESONIDE 0.5 MG/2 ML INH SUSP VIAL NEB SCH ×2 (07:35→19:38)
[2022-01-26 08:46] LABS: BASO % 0.4 % (0-2.0); EOS % 4.7 % (0-4.5); HEMATOCRIT 32.8 % (35.4-49); HEMOGLOBIN 10.8 GM/dL (11.7-16.9); LYMPH % 34.4 % (8-40); MCH 28.2 pg (25.7-33.7); MEAN CELL VOLUME 85.5 fl (80-96); NEUT % 50.5 % (42.8-82.8); PLATELET COUNT 717 10^3/uL (134-434); RBC 3.84 M/mm3 (4.00-5.60); RDW 14.9 % (11.9-15.9); WHITE BLOOD COUNT 5.6 K/mm3 (4.0-10.0)
[2022-01-26 09:04] LABS: CALCIUM 8.7 mg/dL (8.5-10.1)
[2022-01-26 09:05] LABS: BLOOD UREA NITROGEN 17.1 mg/dL (7-18)
[2022-01-26 09:08] LABS: CREATININE 0.4 mg/dL (0.55-1.3)
[2022-01-26] MEDS: CHOLECALCIFEROL (VIT D3) 1,000 UNIT (25 MCG) TABLET GT SCH (09:58)
[2022-01-26] MEDS: SCOPOLAMINE HYDROBROMIDE 1 PATCH PATCH.TD72 TD SCH (09:58)
[2022-01-26] MEDS: levETIRAcetam 500 MG/5 ML ORAL SOLUTION (UNIT-DOSE CUPS) GT SCH ×2 (09:58→22:20)
[2022-01-26] MEDS: APIXABAN 2.5 MG TABLET GT SCH ×2 (09:59→22:20)
[2022-01-26] MEDS: POLYETHYLENE GLYCOL (HEALTHYLAX) 3350 17 GM PACKET PO SCH (09:59)
[2022-01-26] MEDS: FLUTICASONE PROP 0.05% 16 GM NASAL SPRAY NS SCH (09:59)
[2022-01-26] MEDS: METOPROLOL TARTRATE 25 MG TABLET (FP) GT SCH ×2 (09:59→22:20)
[2022-01-26] MEDS: carBAMazepine 200 MG/10 ML UNIT-DOSE CUP GT SCH ×2 (09:59→22:20)
[2022-01-26] MEDS: amLODIPine BESYLATE 2.5 MG TABLET (FP) GT SCH (12:01)
[2022-01-26] MEDS: FAMOTIDINE 40 MG/5 ML ORAL SUSPENSION GT SCH (17:01)
[2022-01-26] MEDS ORDERED: SODIUM CHLORIDE 250 ML IV STA (19:40)
[2022-01-27] MEDS: BACLOFEN 10 MG TABLET (FP) GT SCH ×5 (01:24→23:16)
[2022-01-27] MEDS: clonazePAM 0.5 MG TABLET GT SCH ×3 (05:39→21:40)
[2022-01-27] MEDS: BUDESONIDE 0.5 MG/2 ML INH SUSP VIAL NEB SCH ×2 (08:15→20:59)
[2022-01-27 08:59] LABS: HEMATOCRIT 33.2 % (35.4-49); HEMOGLOBIN 10.9 GM/dL (11.7-16.9); MCH 28.2 pg (25.7-33.7); MCHC 32.9 g/dl (32.0-35.9); MEAN CELL VOLUME 85.9 fl (80-96); MEAN PLT VOLUME 7.1 fl (7.5-11.1); PLATELET COUNT 692 10^3/uL (134-434); RBC 3.86 M/mm3 (4.00-5.60); RDW 14.8 % (11.9-15.9); WHITE BLOOD COUNT 5.7 K/mm3 (4.0-10.0)
[2022-01-27 09:23] LABS: CALCIUM 8.6 mg/dL (8.5-10.1)
[2022-01-27 09:24] LABS: BLOOD UREA NITROGEN 12.3 mg/dL (7-18)
[2022-01-27 09:27] LABS: CREATININE 0.3 mg/dL (0.55-1.3)
[2022-01-27] MEDS: POLYETHYLENE GLYCOL (HEALTHYLAX) 3350 17 GM PACKET PO SCH (10:18)
[2022-01-27] MEDS: FLUTICASONE PROP 0.05% 16 GM NASAL SPRAY NS SCH (10:21)
[2022-01-27] MEDS: APIXABAN 2.5 MG TABLET GT SCH ×2 (10:22→21:40)
[2022-01-27] MEDS: METOPROLOL TARTRATE 25 MG TABLET (FP) GT SCH ×2 (10:22→21:40)
[2022-01-27] MEDS: CHOLECALCIFEROL (VIT D3) 1,000 UNIT (25 MCG) TABLET GT SCH (10:24)
[2022-01-27] MEDS: carBAMazepine 200 MG/10 ML UNIT-DOSE CUP GT SCH ×2 (10:24→21:41)
[2022-01-27] MEDS: levETIRAcetam 500 MG/5 ML ORAL SOLUTION (UNIT-DOSE CUPS) GT SCH ×2 (10:25→21:41)
[2022-01-27] MEDS: BACITRACIN 15 GM TUBE TOPICAL OINTMENT TP SCH ×2 (10:32→21:40)
[2022-01-27] MEDS: amLODIPine BESYLATE 2.5 MG TABLET (FP) GT SCH (13:02)
[2022-01-27] MEDS: FAMOTIDINE 40 MG/5 ML ORAL SUSPENSION GT SCH (17:27)
[2022-01-28] MEDS: BACLOFEN 10 MG TABLET (FP) GT SCH ×4 (06:17→23:57)
[2022-01-28] MEDS: clonazePAM 0.5 MG TABLET GT SCH ×3 (06:17→23:45)
[2022-01-28] MEDS: BUDESONIDE 0.5 MG/2 ML INH SUSP VIAL NEB SCH ×2 (08:50→20:37)
[2022-01-28 09:20] LABS: BASO % 0.7 % (0-2.0); EOS % 3.9 % (0-4.5); HEMATOCRIT 33.6 % (35.4-49); HEMOGLOBIN 11.2 GM/dL (11.7-16.9); LYMPH % 27.1 % (8-40); MCH 28.6 pg (25.7-33.7); MCHC 33.3 g/dl (32.0-35.9); MEAN CELL VOLUME 85.8 fl (80-96); MEAN PLT VOLUME 7.4 fl (7.5-11.1); MONO % 11.5 % (3.8-10.2); NEUT % 56.8 % (42.8-82.8); PLATELET COUNT 666 10^3/uL (134-434); RBC 3.91 M/mm3 (4.00-5.60); RDW 14.8 % (11.9-15.9); WHITE BLOOD COUNT 6.7 K/mm3 (4.0-10.0)
[2022-01-28 09:59] LABS: BLOOD UREA NITROGEN 10.6 mg/dL (7-18); CALCIUM 8.7 mg/dL (8.5-10.1)
[2022-01-28 10:00] LABS: ALBUMIN 2.7 g/dl (3.4-5.0)
[2022-01-28 10:02] LABS: BILIRUBIN,TOTAL 0.3 mg/dL (0.2-1)
[2022-01-28 10:03] LABS: CREATININE 0.4 mg/dL (0.55-1.3)
[2022-01-28 10:04] LABS: TOT PROT 7.8 g/dl (6.4-8.2)
[2022-01-28] MEDS: BACITRACIN 15 GM TUBE TOPICAL OINTMENT TP SCH ×2 (10:12→23:55)
[2022-01-28] MEDS: CHOLECALCIFEROL (VIT D3) 1,000 UNIT (25 MCG) TABLET GT SCH (10:13)
[2022-01-28] MEDS: levETIRAcetam 500 MG/5 ML ORAL SOLUTION (UNIT-DOSE CUPS) GT SCH ×2 (10:13→23:00)
[2022-01-28] MEDS: METOPROLOL TARTRATE 25 MG TABLET (FP) GT SCH ×2 (10:13→23:46)
[2022-01-28] MEDS: POLYETHYLENE GLYCOL (HEALTHYLAX) 3350 17 GM PACKET PO SCH (10:13)
[2022-01-28] MEDS: APIXABAN 2.5 MG TABLET GT SCH ×2 (10:13→23:45)
[2022-01-28] MEDS: carBAMazepine 200 MG/10 ML UNIT-DOSE CUP GT SCH ×2 (10:13→23:00)
[2022-01-28] MEDS: FLUTICASONE PROP 0.05% 16 GM NASAL SPRAY NS SCH (10:14)
[2022-01-28] MEDS ORDERED: TAMSULOSIN HCL 0.4 MG CAP PO SCH (11:12)
[2022-01-28] MEDS: amLODIPine BESYLATE 2.5 MG TABLET (FP) GT SCH (12:06)
[2022-01-28] MEDS ORDERED: TAMSULOSIN HCL 0.4 MG CAP NR SCH (14:30)
[2022-01-28] MEDS: FAMOTIDINE 40 MG/5 ML ORAL SUSPENSION GT SCH (17:04)
[2022-01-29] MEDS: BACLOFEN 10 MG TABLET (FP) GT SCH ×4 (06:07→23:40)
[2022-01-29] MEDS: clonazePAM 0.5 MG TABLET GT SCH ×3 (06:07→23:39)
[2022-01-29] MEDS: BUDESONIDE 0.5 MG/2 ML INH SUSP VIAL NEB SCH ×2 (07:15→20:17)
[2022-01-29] MEDS ORDERED: TAMSULOSIN HCL 0.4 MG CAP NR SCH (08:30)
[2022-01-29] MEDS: SCOPOLAMINE HYDROBROMIDE 1 PATCH PATCH.TD72 TD SCH (10:33)
[2022-01-29] MEDS: BACITRACIN 15 GM TUBE TOPICAL OINTMENT TP SCH ×2 (10:33→23:41)
[2022-01-29] MEDS: CHOLECALCIFEROL (VIT D SOLUTION) 400 UNIT/1 ML DROPS GT SCH (10:34)
[2022-01-29] MEDS: levETIRAcetam 500 MG/5 ML ORAL SOLUTION (UNIT-DOSE CUPS) GT SCH ×2 (10:34→23:39)
[2022-01-29] MEDS: POLYETHYLENE GLYCOL (HEALTHYLAX) 3350 17 GM PACKET PO SCH (10:35)
[2022-01-29] MEDS: carBAMazepine 200 MG/10 ML UNIT-DOSE CUP GT SCH ×2 (10:35→23:38)
[2022-01-29] MEDS: METOPROLOL TARTRATE 25 MG TABLET (FP) GT SCH ×2 (10:36→23:39)
[2022-01-29] MEDS: APIXABAN 2.5 MG TABLET GT SCH ×2 (10:36→23:39)
[2022-01-29] MEDS: FLUTICASONE PROP 0.05% 16 GM NASAL SPRAY NS SCH (10:37)
[2022-01-29] MEDS: amLODIPine BESYLATE 2.5 MG TABLET (FP) GT SCH (13:30)
[2022-01-29] MEDS: FAMOTIDINE 40 MG/5 ML ORAL SUSPENSION GT SCH (17:04)
[2022-01-30] MEDS: clonazePAM 0.5 MG TABLET GT SCH (05:48)
[2022-01-30] MEDS: BACLOFEN 10 MG TABLET (FP) GT SCH ×2 (05:49→11:55)
[2022-01-30] MEDS: BUDESONIDE 0.5 MG/2 ML INH SUSP VIAL NEB SCH (08:03)
[2022-01-30] MEDS: APIXABAN 2.5 MG TABLET GT SCH (09:28)
[2022-01-30] MEDS: METOPROLOL TARTRATE 25 MG TABLET (FP) GT SCH (09:28)
[2022-01-30] MEDS: CHOLECALCIFEROL (VIT D SOLUTION) 400 UNIT/1 ML DROPS GT SCH (09:28)
[2022-01-30] MEDS: carBAMazepine 200 MG/10 ML UNIT-DOSE CUP GT SCH (09:28)
[2022-01-30] MEDS: FLUTICASONE PROP 0.05% 16 GM NASAL SPRAY NS SCH (09:28)
[2022-01-30] MEDS: BACITRACIN 15 GM TUBE TOPICAL OINTMENT TP SCH (09:29)
[2022-01-30] MEDS: levETIRAcetam 500 MG/5 ML ORAL SOLUTION (UNIT-DOSE CUPS) GT SCH (09:29)
[2022-01-30] MEDS: POLYETHYLENE GLYCOL (HEALTHYLAX) 3350 17 GM PACKET PO SCH (09:29)
[2022-01-30] MEDS: amLODIPine BESYLATE 2.5 MG TABLET (FP) GT SCH (11:55)
[2022-01-30 15:35] VITALS: BP 119/82; PULSE 103; TEMP 98.5
== END 2022-01-30 16:15 | DRG 425 ==
LOC: JER 15:00 → JERBED 17:58 → J7W 01-10 00:02
PROVIDERS: ADMIT Hospitalist; ATTEND Internal Medicine
DX: E87.1 Hypo-osmolality and hyponatremia (principal); I10 Essential (primary) hypertension; G40.909 Epilepsy, unspecified, not intractable, without status epilepticus; Q02 Microcephaly; R33.9 Retention of urine, unspecified; N44.00 Torsion of testis, unspecified; A41.89 Other specified sepsis; R00.0 Tachycardia, unspecified; G80.0 Spastic quadriplegic cerebral palsy; H47.619 Cortical blindness, unspecified side of brain; I95.9 Hypotension, unspecified; N13.2 Hydronephrosis with renal and ureteral calculous obstruction; B97.89 Other viral agents as the cause of diseases classified elsewhere; R50.9 Fever, unspecified; Q67.5 Congenital deformity of spine; D72.829 Elevated white blood cell count, unspecified; D75.838 Other thrombocytosis; J45.909 Unspecified asthma, uncomplicated; Z86.718 Personal history of other venous thrombosis and embolism; Z93.1 Gastrostomy status; Z74.01 Bed confinement status
CPT/HCPCS: 36415; 71045-TC-FY; 71250-TC; 74018-TC-FY; 74176-TC; 74177-TC; 76775-TC; 80048; 80053; 81003; 82550; 82553; 82803; 82962; 83605; 83735; 84100; 84300; 84443; 85025; 85027; 85610; 85651; 85730; 86140; 86850; 86900; 86901; 87040; 87086; 87633; 93005; 93010; 94640; 99285-25; C9803-CS; J0475; Q9967; U0003; U0005

== ENCOUNTER 2022-03-19 11:24 | Inpatient (IN) | payer OTHER ==
[2022-03-19] MEDS ORDERED: VANCOMYCIN 1,000 MG in DEXTROSE 5%-WATER - 250 ML IVPB ONE (12:22)
[2022-03-19] MEDS ORDERED: PIPERACILLIN/TAZOBACTAM 4.5 GM VIAL IVPB ONE (12:22)
[2022-03-19] MEDS ORDERED: SODIUM CHLORIDE 1,497 ML IV ONE (12:22)
[2022-03-19] MEDS ORDERED: ACETAMINOPHEN 1000 MG/100 ML BAG IVPB ONE (12:26)
[2022-03-19] MEDS ORDERED: ACETAMINOPHEN INJECTION 100 ML IVPB ONE (13:15)
[2022-03-19] MEDS ORDERED: PIPERACILLIN/TAZOB 4.5 GM 4.5 GM/100 ML BAG IVPB ONE (13:46)
[2022-03-19 13:59] LABS: VENOUS BASE EXCESS 0.2 mmol/L (-2-2); VENOUS O2 SATURATION 87.8 % (70-80); VENOUS PH 7.389 (7.310-7.410)
[2022-03-19 14:00] LABS: URINE APPEARANCE CLEAR; URINE BILIRUBIN NEGATIVE (NEGATIVE); URINE COLOR YELLOW; URINE GLUCOSE (UA) NEGATIVE (NEGATIVE); URINE KETONE NEGATIVE (NEGATIVE); URINE LEUK ESTERASE NEGATIVE (NEGATIVE); URINE NITRITE NEGATIVE (NEGATIVE); URINE PROTEIN NEGATIVE (NEGATIVE)
[2022-03-19 14:01] LABS: BASO % 0.2 % (0-2.0); HEMOGLOBIN 13.5 GM/dL (11.7-16.9); LYMPH % 9.2 % (8-40); MCH 27.6 pg (25.7-33.7); MEAN CELL VOLUME 83.8 fl (80-96); MEAN PLT VOLUME 7.7 fl (7.5-11.1); MONO % 7.6 % (3.8-10.2); PLATELET COUNT 357 10^3/uL (134-434); RDW 16.4 % (11.9-15.9); WHITE BLOOD COUNT 16.1 K/mm3 (4.0-10.0)
[2022-03-19 14:19] LABS: CALCIUM 9.5 mg/dL (8.5-10.1)
[2022-03-19 14:20] LABS: ALBUMIN 3.5 g/dl (3.4-5.0); BLOOD UREA NITROGEN 5.3 mg/dL (7-18)
[2022-03-19 14:23] LABS: CREATININE 0.4 mg/dL (0.55-1.3)
[2022-03-19 14:24] LABS: TOT PROT 8.9 g/dl (6.4-8.2)
[2022-03-19 14:25] LABS: BILIRUBIN,TOTAL 0.5 mg/dL (0.2-1); LACTIC ACID 2.6 mmol/L (0.4-2.0)
[2022-03-19] MEDS ORDERED: VANCOMYCIN/WATER FOR INJ (PEG) 1,000 MG/200 ML BAG IVPB ONE (15:12)
[2022-03-19] MEDS ORDERED: ALBUTEROL SO4 2.5/IPRATROPIUM 0.5 INH SOL 3 ML VIAL.NEB. NEB PRN (18:11)
[2022-03-19] MEDS: clonazePAM 0.5 MG TABLET GT SCH ×2 (21:57→22:22)
[2022-03-19] MEDS ORDERED: clonazePAM 0.5 MG TABLET ONE (22:03)
[2022-03-19] MEDS ORDERED: METOPROLOL TARTRATE 25 MG TABLET (FP) ONE (22:03)
[2022-03-19] MEDS ORDERED: PIPERACILLIN/TAZOB 3.375 GM 3.375 GM/50 ML BAG IVPB ONE (22:03)
[2022-03-19] MEDS ORDERED: APIXABAN 2.5 MG TABLET ONE (22:03)
[2022-03-19] MEDS: levETIRAcetam 500 MG/5 ML ORAL SOLUTION (UNIT-DOSE CUPS) GT SCH (22:22)
[2022-03-19] MEDS: PIPERACILLIN/TAZOB 3.375 GM 3.375 GM in DEXTROSE 5%-WATER - 50 ML IVPB SCH (22:22)
[2022-03-19] MEDS: BUDESONIDE 0.5 MG/2 ML INH SUSP VIAL NEB SCH (22:22)
[2022-03-19] MEDS: FAMOTIDINE 40 MG/5 ML ORAL SUSPENSION GT SCH (22:22)
[2022-03-19] MEDS: APIXABAN 2.5 MG TABLET GT SCH (22:22)
[2022-03-19] MEDS: METOPROLOL TARTRATE 25 MG TABLET (FP) GT SCH (22:22)
[2022-03-19] MEDS: carBAMazepine 200 MG/10 ML UNIT-DOSE CUP GT SCH (22:22)
[2022-03-19] MEDS: SODIUM CHLORIDE 1,000 ML IV SCH (22:22)
[2022-03-20] MEDS ORDERED: PATIENT'S OWN MEDICATION (NON-FORMULARY) (Baclofen [Baclofen] 20 MG Tablet) GT SCH
[2022-03-20] MEDS ORDERED: DEXTROSE 5%-WATER - 50 ML IVPB ONE ×3 (05:44→22:27)
[2022-03-20] MEDS ORDERED: PIPERACILLIN/TAZOBACTAM 3.375 GM VIAL IVPB ONE ×3 (05:44→22:27)
[2022-03-20] MEDS: PIPERACILLIN/TAZOB 3.375 GM 3.375 GM in DEXTROSE 5%-WATER - 50 ML IVPB SCH ×3 (05:53→22:51)
[2022-03-20] MEDS: clonazePAM 0.5 MG TABLET GT SCH ×3 (05:54→22:48)
[2022-03-20] MEDS: BACLOFEN 10 MG TABLET (FP) GT SCH ×2 (05:54→18:31)
[2022-03-20] MEDS: BUDESONIDE 0.5 MG/2 ML INH SUSP VIAL NEB SCH ×2 (07:25→20:16)
[2022-03-20] MEDS: DOXAZOSIN MESYLATE 1 MG TABLET GT SCH (07:58)
[2022-03-20 08:42] LABS: CALCIUM 8.3 mg/dL (8.5-10.1)
[2022-03-20 08:43] LABS: ALBUMIN 2.9 g/dl (3.4-5.0); BLOOD UREA NITROGEN 4.4 mg/dL (7-18); MAGNESIUM 2.2 mg/dL (1.8-2.4)
[2022-03-20 08:45] LABS: CREATININE 0.3 mg/dL (0.55-1.3)
[2022-03-20 08:46] LABS: PHOSPHOROUS 3.6 mg/dL (2.5-4.9)
[2022-03-20 08:47] LABS: BILIRUBIN,TOTAL 0.4 mg/dL (0.2-1); TOT PROT 7.3 g/dl (6.4-8.2)
[2022-03-20 08:51] LABS: HEMATOCRIT 35.3 % (35.4-49); HEMOGLOBIN 11.9 GM/dL (11.7-16.9); MCH 28.2 pg (25.7-33.7); MCHC 33.7 g/dl (32.0-35.9); MEAN CELL VOLUME 83.7 fl (80-96); MEAN PLT VOLUME 8.2 fl (7.5-11.1); PLATELET COUNT 255 10^3/uL (134-434); RBC 4.22 M/mm3 (4.00-5.60); WHITE BLOOD COUNT 11.8 K/mm3 (4.0-10.0)
[2022-03-20] MEDS ORDERED: VANCOMYCIN 1 GM/200 ML PREMIX BAG IVPB SCH (10:00)
[2022-03-20] MEDS: APIXABAN 2.5 MG TABLET GT SCH ×2 (10:11→22:44)
[2022-03-20] MEDS: METOPROLOL TARTRATE 25 MG TABLET (FP) GT SCH ×2 (10:11→22:48)
[2022-03-20] MEDS: carBAMazepine 200 MG/10 ML UNIT-DOSE CUP GT SCH ×2 (10:13→22:50)
[2022-03-20] MEDS: levETIRAcetam 500 MG/5 ML ORAL SOLUTION (UNIT-DOSE CUPS) GT SCH ×2 (10:17→22:50)
[2022-03-20] MEDS: FAMOTIDINE 40 MG/5 ML ORAL SUSPENSION GT SCH ×2 (10:17→22:50)
[2022-03-20] MEDS: CHOLECALCIFEROL (VIT D3) 1,000 UNIT (25 MCG) TABLET GT SCH (10:18)
[2022-03-20] MEDS: NYSTATIN 100,000 UNIT/GM TOPICAL CREAM 15 GM TUBE TP SCH ×2 (15:01→22:50)
[2022-03-20] MEDS: SODIUM CHLORIDE 1,000 ML IV SCH (18:44)
[2022-03-20] MEDS: SCOPOLAMINE HYDROBROMIDE 1 PATCH PATCH.TD72 TD SCH (23:18)
[2022-03-21] MEDS ORDERED: DEXTROSE 5%-WATER - 50 ML IVPB ONE ×3 (05:29→21:36)
[2022-03-21] MEDS ORDERED: PIPERACILLIN/TAZOBACTAM 3.375 GM VIAL IVPB ONE ×3 (05:29→21:36)
[2022-03-21] MEDS: BACLOFEN 10 MG TABLET (FP) GT SCH ×2 (06:21→11:27)
[2022-03-21] MEDS: PIPERACILLIN/TAZOB 3.375 GM 3.375 GM in DEXTROSE 5%-WATER - 50 ML IVPB SCH ×3 (06:21→21:57)
[2022-03-21] MEDS: DOXAZOSIN MESYLATE 1 MG TABLET GT SCH (06:21)
[2022-03-21] MEDS: clonazePAM 0.5 MG TABLET GT SCH ×3 (06:21→21:56)
[2022-03-21] MEDS: BUDESONIDE 0.5 MG/2 ML INH SUSP VIAL NEB SCH ×2 (08:58→19:34)
[2022-03-21 09:08] LABS: CALCIUM 8.2 mg/dL (8.5-10.1); PHOSPHOROUS 4.2 mg/dL (2.5-4.9)
[2022-03-21 09:09] LABS: CREATININE 0.3 mg/dL (0.55-1.3)
[2022-03-21 09:10] LABS: MAGNESIUM 2.1 mg/dL (1.8-2.4)
[2022-03-21] MEDS: CHOLECALCIFEROL (VIT D3) 1,000 UNIT (25 MCG) TABLET GT SCH (09:36)
[2022-03-21] MEDS: APIXABAN 2.5 MG TABLET GT SCH ×2 (09:37→21:56)
[2022-03-21] MEDS: METOPROLOL TARTRATE 25 MG TABLET (FP) GT SCH ×2 (09:37→21:56)
[2022-03-21] MEDS: levETIRAcetam 500 MG/5 ML ORAL SOLUTION (UNIT-DOSE CUPS) GT SCH ×2 (09:37→21:57)
[2022-03-21] MEDS: FAMOTIDINE 40 MG/5 ML ORAL SUSPENSION GT SCH ×2 (09:37→21:57)
[2022-03-21] MEDS: NYSTATIN 100,000 UNIT/GM TOPICAL CREAM 15 GM TUBE TP SCH ×2 (09:37→21:57)
[2022-03-21] MEDS: carBAMazepine 200 MG/10 ML UNIT-DOSE CUP GT SCH ×2 (09:38→21:57)
[2022-03-21 09:49] LABS: HEMATOCRIT 33.2 % (35.4-49); HEMOGLOBIN 10.9 GM/dL (11.7-16.9); MCH 27.9 pg (25.7-33.7); MCHC 32.8 g/dl (32.0-35.9); MEAN PLT VOLUME 7.7 fl (7.5-11.1); PLATELET COUNT 266 10^3/uL (134-434); RBC 3.91 M/mm3 (4.00-5.60); RDW 15.9 % (11.9-15.9); WHITE BLOOD COUNT 5.3 K/mm3 (4.0-10.0)
[2022-03-21] MEDS ORDERED: VANCOMYCIN 1 GM/200 ML PREMIX BAG IVPB SCH (10:00)
[2022-03-21] MEDS: FINASTERIDE 5 MG TABLET (FP) PO SCH (11:19)
[2022-03-21] MEDS: KCL 10 MEQ IVPB 10 MEQ/100 ML INFUS.BAG IVPB SCH ×2 (14:33→15:46)
[2022-03-22] MEDS ORDERED: PIPERACILLIN/TAZOBACTAM 3.375 GM VIAL IVPB ONE ×3 (05:51→21:05)
[2022-03-22] MEDS ORDERED: DEXTROSE 5%-WATER - 50 ML IVPB ONE ×3 (05:51→21:06)
[2022-03-22] MEDS: clonazePAM 0.5 MG TABLET GT SCH ×3 (06:07→23:31)
[2022-03-22] MEDS: BACLOFEN 10 MG TABLET (FP) GT SCH ×2 (06:08→13:24)
[2022-03-22] MEDS: PIPERACILLIN/TAZOB 3.375 GM 3.375 GM in DEXTROSE 5%-WATER - 50 ML IVPB SCH ×3 (06:08→22:47)
[2022-03-22] MEDS: DOXAZOSIN MESYLATE 1 MG TABLET GT SCH (06:08)
[2022-03-22 08:13] LABS: HEMOGLOBIN 12.3 GM/dL (11.7-16.9); MCH 27.9 pg (25.7-33.7); MCHC 33.3 g/dl (32.0-35.9); MEAN CELL VOLUME 83.7 fl (80-96); MEAN PLT VOLUME 7.4 fl (7.5-11.1); PLATELET COUNT 286 10^3/uL (134-434); RBC 4.42 M/mm3 (4.00-5.60); WHITE BLOOD COUNT 7.2 K/mm3 (4.0-10.0)
[2022-03-22 08:28] LABS: BLOOD UREA NITROGEN 5.4 mg/dL (7-18); CALCIUM 8.5 mg/dL (8.5-10.1); MAGNESIUM 2.3 mg/dL (1.8-2.4)
[2022-03-22 08:31] LABS: PHOSPHOROUS 4.4 mg/dL (2.5-4.9)
[2022-03-22 08:32] LABS: CREATININE 0.3 mg/dL (0.55-1.3)
[2022-03-22] MEDS: BUDESONIDE 0.5 MG/2 ML INH SUSP VIAL NEB SCH ×2 (08:46→20:05)
[2022-03-22] MEDS: METOPROLOL TARTRATE 25 MG TABLET (FP) GT SCH ×2 (09:22→23:31)
[2022-03-22] MEDS: APIXABAN 2.5 MG TABLET GT SCH ×2 (09:22→23:31)
[2022-03-22] MEDS: carBAMazepine 200 MG/10 ML UNIT-DOSE CUP GT SCH ×2 (09:22→23:28)
[2022-03-22] MEDS: FINASTERIDE 5 MG TABLET (FP) PO SCH (09:22)
[2022-03-22] MEDS: CHOLECALCIFEROL (VIT D3) 1,000 UNIT (25 MCG) TABLET GT SCH (09:22)
[2022-03-22] MEDS: FAMOTIDINE 40 MG/5 ML ORAL SUSPENSION GT SCH ×2 (09:23→23:29)
[2022-03-22] MEDS: NYSTATIN 100,000 UNIT/GM TOPICAL CREAM 15 GM TUBE TP SCH ×2 (09:23→23:40)
[2022-03-22] MEDS: levETIRAcetam 500 MG/5 ML ORAL SOLUTION (UNIT-DOSE CUPS) GT SCH ×2 (09:24→23:30)
[2022-03-23] MEDS ORDERED: PIPERACILLIN/TAZOBACTAM 3.375 GM VIAL IVPB ONE ×4 (05:08→21:59)
[2022-03-23] MEDS ORDERED: DEXTROSE 5%-WATER - 50 ML IVPB ONE ×3 (05:09→22:00)
[2022-03-23] MEDS: PIPERACILLIN/TAZOB 3.375 GM 3.375 GM in DEXTROSE 5%-WATER - 50 ML IVPB SCH ×2 (06:30→15:05)
[2022-03-23] MEDS: clonazePAM 0.5 MG TABLET GT SCH ×3 (06:30→23:46)
[2022-03-23] MEDS: DOXAZOSIN MESYLATE 1 MG TABLET GT SCH (06:31)
[2022-03-23] MEDS: BACLOFEN 10 MG TABLET (FP) GT SCH ×2 (06:38→12:28)
[2022-03-23] MEDS: BUDESONIDE 0.5 MG/2 ML INH SUSP VIAL NEB SCH ×2 (08:45→20:08)
[2022-03-23] MEDS: levETIRAcetam 500 MG/5 ML ORAL SOLUTION (UNIT-DOSE CUPS) GT SCH ×2 (10:20→23:48)
[2022-03-23] MEDS: APIXABAN 2.5 MG TABLET GT SCH ×2 (10:20→23:47)
[2022-03-23] MEDS: METOPROLOL TARTRATE 25 MG TABLET (FP) GT SCH ×2 (10:20→23:47)
[2022-03-23] MEDS: FAMOTIDINE 40 MG/5 ML ORAL SUSPENSION GT SCH ×2 (10:22→23:51)
[2022-03-23 10:23] LABS: HEMATOCRIT 37.8 % (35.4-49); HEMOGLOBIN 12.4 GM/dL (11.7-16.9); MCH 27.6 pg (25.7-33.7); MCHC 32.7 g/dl (32.0-35.9); MEAN CELL VOLUME 84.4 fl (80-96); MEAN PLT VOLUME 7.2 fl (7.5-11.1); PLATELET COUNT 311 10^3/uL (134-434); RBC 4.48 M/mm3 (4.00-5.60); RDW 16.3 % (11.9-15.9); WHITE BLOOD COUNT 6.3 K/mm3 (4.0-10.0)
[2022-03-23] MEDS: carBAMazepine 200 MG/10 ML UNIT-DOSE CUP GT SCH ×2 (10:23→23:51)
[2022-03-23] MEDS: FINASTERIDE 5 MG TABLET (FP) PO SCH (10:23)
[2022-03-23] MEDS: CHOLECALCIFEROL (VIT D3) 1,000 UNIT (25 MCG) TABLET GT SCH (10:24)
[2022-03-23 10:43] LABS: CALCIUM 8.8 mg/dL (8.5-10.1)
[2022-03-23 10:44] LABS: BLOOD UREA NITROGEN 5.8 mg/dL (7-18); MAGNESIUM 2.5 mg/dL (1.8-2.4)
[2022-03-23 10:47] LABS: CREATININE 0.3 mg/dL (0.55-1.3); PHOSPHOROUS 4.2 mg/dL (2.5-4.9)
[2022-03-23] MEDS: NYSTATIN 100,000 UNIT/GM TOPICAL CREAM 15 GM TUBE TP SCH ×2 (11:18→23:57)
[2022-03-23] MEDS ORDERED: ACETAMINOPHEN 1000 MG/100 ML BAG IVPB PRN ×2 (17:27→17:37)
[2022-03-24] MEDS: SCOPOLAMINE HYDROBROMIDE 1 PATCH PATCH.TD72 TD SCH (01:21)
[2022-03-24] MEDS: clonazePAM 0.5 MG TABLET GT SCH ×3 (06:13→23:22)
[2022-03-24] MEDS: BACLOFEN 10 MG TABLET (FP) GT SCH ×2 (06:13→11:38)
[2022-03-24] MEDS: DOXAZOSIN MESYLATE 1 MG TABLET GT SCH (07:05)
[2022-03-24] MEDS: BUDESONIDE 0.5 MG/2 ML INH SUSP VIAL NEB SCH ×2 (09:03→20:00)
[2022-03-24] MEDS: levETIRAcetam 500 MG/5 ML ORAL SOLUTION (UNIT-DOSE CUPS) GT SCH ×2 (09:42→23:26)
[2022-03-24] MEDS: APIXABAN 2.5 MG TABLET GT SCH ×2 (09:44→23:22)
[2022-03-24] MEDS: FINASTERIDE 5 MG TABLET (FP) PO SCH (09:44)
[2022-03-24] MEDS: METOPROLOL TARTRATE 25 MG TABLET (FP) GT SCH ×2 (09:44→23:22)
[2022-03-24] MEDS: CHOLECALCIFEROL (VIT D3) 1,000 UNIT (25 MCG) TABLET GT SCH (09:44)
[2022-03-24] MEDS: FAMOTIDINE 40 MG/5 ML ORAL SUSPENSION GT SCH ×2 (09:45→23:25)
[2022-03-24] MEDS: carBAMazepine 200 MG/10 ML UNIT-DOSE CUP GT SCH ×2 (09:45→23:26)
[2022-03-24] MEDS: NYSTATIN 100,000 UNIT/GM TOPICAL CREAM 15 GM TUBE TP SCH ×2 (09:47→23:37)
[2022-03-24] MEDS ORDERED: SODIUM CHLORIDE FOR INHALATION 3 ML VIAL.NEB IH PRN (10:52)
[2022-03-24 10:56] LABS: BASO % 0.5 % (0-2.0); EOS % 0.2 % (0-4.5); HEMATOCRIT 40.1 % (35.4-49); HEMOGLOBIN 13.5 GM/dL (11.7-16.9); LYMPH % 12.9 % (8-40); MCH 28.1 pg (25.7-33.7); MCHC 33.7 g/dl (32.0-35.9); MEAN CELL VOLUME 83.4 fl (80-96); MEAN PLT VOLUME 7.3 fl (7.5-11.1); NEUT % 75.4 % (42.8-82.8); PLATELET COUNT 354 10^3/uL (134-434); RDW 16.2 % (11.9-15.9); WHITE BLOOD COUNT 8.9 K/mm3 (4.0-10.0)
[2022-03-24 11:25] LABS: ALBUMIN 3.2 g/dl (3.4-5.0); BLOOD UREA NITROGEN 7.7 mg/dL (7-18); CALCIUM 9.3 mg/dL (8.5-10.1)
[2022-03-24 11:29] LABS: CREATININE 0.5 mg/dL (0.55-1.3)
[2022-03-24 11:30] LABS: BILIRUBIN,TOTAL 0.4 mg/dL (0.2-1); TOT PROT 8.9 g/dl (6.4-8.2)
[2022-03-24] MEDS ORDERED: CEFEPIME 1 GM in DEXTROSE 5%-WATER 1 GM/100 ML BAG IVPB ONE (11:30)
[2022-03-24] MEDS ORDERED: VANCOMYCIN 1 GM/200 ML PREMIX BAG IVPB ONE (11:30)
[2022-03-24] MEDS ORDERED: DEXTROSE 5%-WATER 100 ML IVPB ONE ×2 (11:35→17:57)
[2022-03-24] MEDS ORDERED: CEFEPIME HCL 1 GM VIAL (RESTRICTED TO ID) ONE ×2 (11:35→17:57)
[2022-03-24] MEDS: LACTATED RINGERS SOLUTION 1,000 ML/1,000 ML INFUS.BAG IV SCH (11:41)
[2022-03-24 13:33] VITALS: BMI 21.4
[2022-03-24 13:34] LABS: EPI CELLS 8 /uL (0-25.1); HYALINE CASTS 3 /uL (0-3.1); PH,URINE 7.5 (5.0-8.0); URINE APPEARANCE TURBID; URINE BACTERIA 11 /uL (0-1359); URINE BILIRUBIN NEGATIVE (NEGATIVE); URINE COLOR YELLOW; URINE GLUCOSE (UA) NEGATIVE (NEGATIVE); URINE KETONE NEGATIVE (NEGATIVE); URINE LEUK ESTERASE NEGATIVE (NEGATIVE); URINE NITRITE NEGATIVE (NEGATIVE); URINE PROTEIN 1+ (NEGATIVE); URINE RBC 115 /uL (0-23.9); URINE WBC 13 /uL (0-25.8)
[2022-03-24] MEDS: CEFEPIME 1 GM in DEXTROSE 5%-WATER 100 ML IVPB SCH (17:59)
[2022-03-25] MEDS ORDERED: DEXTROSE 5%-WATER 100 ML IVPB ONE ×3 (03:43→18:06)
[2022-03-25] MEDS ORDERED: CEFEPIME HCL 1 GM VIAL (RESTRICTED TO ID) ONE ×3 (03:43→18:06)
[2022-03-25] MEDS: CEFEPIME 1 GM in DEXTROSE 5%-WATER 100 ML IVPB SCH ×3 (04:15→18:12)
[2022-03-25] MEDS ORDERED: ACETAMINOPHEN 325 MG TABLET (FP) PO PRN (06:20)
[2022-03-25] MEDS ORDERED: ACETAMINOPHEN 1000 MG/100 ML BAG IVPB PRN (06:21)
[2022-03-25] MEDS: BACLOFEN 10 MG TABLET (FP) GT SCH ×2 (06:50→14:25)
[2022-03-25] MEDS: clonazePAM 0.5 MG TABLET GT SCH ×3 (06:50→21:44)
[2022-03-25] MEDS: DOXAZOSIN MESYLATE 1 MG TABLET GT SCH (06:58)
[2022-03-25 09:05] LABS: HEMATOCRIT 33.7 % (35.4-49); HEMOGLOBIN 11.4 GM/dL (11.7-16.9); MCH 28.2 pg (25.7-33.7); MCHC 33.7 g/dl (32.0-35.9); MEAN CELL VOLUME 83.6 fl (80-96); MEAN PLT VOLUME 7.2 fl (7.5-11.1); PLATELET COUNT 315 10^3/uL (134-434); RBC 4.03 M/mm3 (4.00-5.60); WHITE BLOOD COUNT 8.3 K/mm3 (4.0-10.0)
[2022-03-25 09:31] LABS: CALCIUM 8.3 mg/dL (8.5-10.1)
[2022-03-25 09:32] LABS: BLOOD UREA NITROGEN 7.1 mg/dL (7-18)
[2022-03-25 09:35] LABS: CREATININE 0.2 mg/dL (0.55-1.3)
[2022-03-25] MEDS: levETIRAcetam 500 MG/5 ML ORAL SOLUTION (UNIT-DOSE CUPS) GT SCH ×2 (10:34→21:45)
[2022-03-25] MEDS: FINASTERIDE 5 MG TABLET (FP) PO SCH (10:34)
[2022-03-25] MEDS: METOPROLOL TARTRATE 25 MG TABLET (FP) GT SCH ×2 (10:34→22:05)
[2022-03-25] MEDS: APIXABAN 2.5 MG TABLET GT SCH ×2 (10:34→21:45)
[2022-03-25] MEDS: CHOLECALCIFEROL (VIT D3) 1,000 UNIT (25 MCG) TABLET GT SCH (10:34)
[2022-03-25] MEDS: carBAMazepine 200 MG/10 ML UNIT-DOSE CUP GT SCH ×2 (10:35→23:20)
[2022-03-25] MEDS: NYSTATIN 100,000 UNIT/GM TOPICAL CREAM 15 GM TUBE TP SCH ×2 (10:35→21:45)
[2022-03-25] MEDS: FAMOTIDINE 40 MG/5 ML ORAL SUSPENSION GT SCH ×2 (10:35→23:27)
[2022-03-25] MEDS: LACTATED RINGERS SOLUTION 1,000 ML/1,000 ML INFUS.BAG IV SCH (14:25)
[2022-03-25] MEDS: BUDESONIDE 0.5 MG/2 ML INH SUSP VIAL NEB SCH (20:36)
[2022-03-26] MEDS ORDERED: CEFEPIME HCL 1 GM VIAL (RESTRICTED TO ID) ONE ×3 (01:30→18:35)
[2022-03-26] MEDS: CEFEPIME 1 GM in DEXTROSE 5%-WATER 100 ML IVPB SCH ×3 (01:30→18:40)
[2022-03-26] MEDS ORDERED: DEXTROSE 5%-WATER 100 ML IVPB ONE ×3 (01:30→18:35)
[2022-03-26] MEDS: BACLOFEN 10 MG TABLET (FP) GT SCH ×2 (05:31→13:11)
[2022-03-26] MEDS: clonazePAM 0.5 MG TABLET GT SCH ×3 (05:31→23:03)
[2022-03-26] MEDS: DOXAZOSIN MESYLATE 1 MG TABLET GT SCH (07:37)
[2022-03-26] MEDS: BUDESONIDE 0.5 MG/2 ML INH SUSP VIAL NEB SCH ×3 (07:42→20:00)
[2022-03-26 09:10] LABS: HEMATOCRIT 34.6 % (35.4-49); HEMOGLOBIN 11.4 GM/dL (11.7-16.9); MCH 27.9 pg (25.7-33.7); MCHC 33.1 g/dl (32.0-35.9); MEAN CELL VOLUME 84.4 fl (80-96); MEAN PLT VOLUME 7.2 fl (7.5-11.1); PLATELET COUNT 340 10^3/uL (134-434); RDW 15.8 % (11.9-15.9); WHITE BLOOD COUNT 8.9 K/mm3 (4.0-10.0)
[2022-03-26 10:00] LABS: ALBUMIN 2.8 g/dl (3.4-5.0)
[2022-03-26 10:01] LABS: CALCIUM 8.8 mg/dL (8.5-10.1)
[2022-03-26 10:03] LABS: BLOOD UREA NITROGEN 6.1 mg/dL (7-18); CREATININE 0.2 mg/dL (0.55-1.3)
[2022-03-26 10:04] LABS: BILIRUBIN,TOTAL 0.5 mg/dL (0.2-1); MAGNESIUM 2.2 mg/dL (1.8-2.4); TOT PROT 7.8 g/dl (6.4-8.2)
[2022-03-26 10:07] LABS: PHOSPHOROUS 3.6 mg/dL (2.5-4.9)
[2022-03-26] MEDS: FINASTERIDE 5 MG TABLET (FP) PO SCH (10:55)
[2022-03-26] MEDS: CHOLECALCIFEROL (VIT D3) 1,000 UNIT (25 MCG) TABLET GT SCH (10:55)
[2022-03-26] MEDS: APIXABAN 2.5 MG TABLET GT SCH ×2 (10:55→23:03)
[2022-03-26] MEDS: METOPROLOL TARTRATE 25 MG TABLET (FP) GT SCH ×2 (10:55→23:03)
[2022-03-26] MEDS: levETIRAcetam 500 MG/5 ML ORAL SOLUTION (UNIT-DOSE CUPS) GT SCH ×2 (10:57→23:02)
[2022-03-26] MEDS: carBAMazepine 200 MG/10 ML UNIT-DOSE CUP GT SCH ×2 (10:58→23:04)
[2022-03-26] MEDS: FAMOTIDINE 40 MG/5 ML ORAL SUSPENSION GT SCH ×2 (11:00→23:09)
[2022-03-26] MEDS: LACTATED RINGERS SOLUTION 1,000 ML/1,000 ML INFUS.BAG IV SCH (11:01)
[2022-03-26] MEDS: ACETAMINOPHEN 650 MG/20.3 ML ORAL SOLUTION (CUPS) GT PRN (11:05)
[2022-03-26] MEDS: NYSTATIN 100,000 UNIT/GM TOPICAL CREAM 15 GM TUBE TP SCH ×2 (11:12→23:03)
[2022-03-26] MEDS ORDERED: INSULIN (NOVOLOG) ASPART 100 UNITS/ML 10ML VIAL ONE (12:25)
[2022-03-26 20:19] LABS: ALBUMIN 2.9 g/dl (3.4-5.0); BILIRUBIN,TOTAL 0.4 mg/dL (0.2-1); BLOOD UREA NITROGEN 6.3 mg/dL (7-18); CALCIUM 8.5 mg/dL (8.5-10.1); CREATININE 0.3 mg/dL (0.55-1.3)
[2022-03-26] MEDS: SCOPOLAMINE HYDROBROMIDE 1 PATCH PATCH.TD72 TD SCH (23:05)
[2022-03-27] MEDS ORDERED: DEXTROSE 5%-WATER 100 ML IVPB ONE ×3 (01:15→17:53)
[2022-03-27] MEDS ORDERED: CEFEPIME HCL 1 GM VIAL (RESTRICTED TO ID) ONE ×3 (01:15→17:52)
[2022-03-27] MEDS: CEFEPIME 1 GM in DEXTROSE 5%-WATER 100 ML IVPB SCH ×3 (01:28→18:22)
[2022-03-27] MEDS: BACLOFEN 10 MG TABLET (FP) GT SCH ×2 (06:12→13:26)
[2022-03-27] MEDS: clonazePAM 0.5 MG TABLET GT SCH ×3 (06:12→22:19)
[2022-03-27] MEDS: DOXAZOSIN MESYLATE 1 MG TABLET GT SCH (06:13)
[2022-03-27] MEDS: ACETAMINOPHEN 650 MG/20.3 ML ORAL SOLUTION (CUPS) GT PRN (06:16)
[2022-03-27] MEDS: BUDESONIDE 0.5 MG/2 ML INH SUSP VIAL NEB SCH ×2 (09:20→19:45)
[2022-03-27] MEDS: METOPROLOL TARTRATE 25 MG TABLET (FP) GT SCH ×2 (11:03→22:11)
[2022-03-27] MEDS: APIXABAN 2.5 MG TABLET GT SCH ×2 (11:03→22:19)
[2022-03-27] MEDS: CHOLECALCIFEROL (VIT D3) 1,000 UNIT (25 MCG) TABLET GT SCH (11:04)
[2022-03-27] MEDS: FINASTERIDE 5 MG TABLET (FP) PO SCH (11:04)
[2022-03-27] MEDS: levETIRAcetam 500 MG/5 ML ORAL SOLUTION (UNIT-DOSE CUPS) GT SCH ×2 (11:05→22:24)
[2022-03-27] MEDS: FAMOTIDINE 40 MG/5 ML ORAL SUSPENSION GT SCH ×2 (11:05→22:24)
[2022-03-27] MEDS: carBAMazepine 200 MG/10 ML UNIT-DOSE CUP GT SCH ×2 (11:12→22:24)
[2022-03-27] MEDS: NYSTATIN 100,000 UNIT/GM TOPICAL CREAM 15 GM TUBE TP SCH ×2 (11:28→22:25)
[2022-03-27] MEDS: POLYETHYLENE GLYCOL (HEALTHYLAX) 3350 17 GM PACKET GT SCH (13:26)
[2022-03-27] MEDS: ALBUTEROL SO4 0.5 % INH SOLN 2.5 MG/0.5 ML VIAL.NEB. NEB PRN (13:44)
[2022-03-27 13:48] LABS: HEMATOCRIT 32.1 % (35.4-49); HEMOGLOBIN 10.8 GM/dL (11.7-16.9); MCH 28.1 pg (25.7-33.7); MCHC 33.8 g/dl (32.0-35.9); MEAN CELL VOLUME 83.1 fl (80-96); MEAN PLT VOLUME 7.1 fl (7.5-11.1); PLATELET COUNT 355 10^3/uL (134-434); RBC 3.86 M/mm3 (4.00-5.60); RDW 15.7 % (11.9-15.9); WHITE BLOOD COUNT 7.5 K/mm3 (4.0-10.0)
[2022-03-28] MEDS ORDERED: DEXTROSE 5%-WATER 100 ML IVPB ONE ×3 (01:47→17:41)
[2022-03-28] MEDS ORDERED: CEFEPIME HCL 1 GM VIAL (RESTRICTED TO ID) ONE ×3 (01:47→17:41)
[2022-03-28] MEDS: CEFEPIME 1 GM in DEXTROSE 5%-WATER 100 ML IVPB SCH ×3 (02:03→17:46)
[2022-03-28] MEDS: BACLOFEN 10 MG TABLET (FP) GT SCH ×2 (06:50→11:00)
[2022-03-28] MEDS: clonazePAM 0.5 MG TABLET GT SCH ×3 (06:50→22:25)
[2022-03-28] MEDS: DOXAZOSIN MESYLATE 1 MG TABLET GT SCH (06:51)
[2022-03-28 08:17] LABS: HEMATOCRIT 30.8 % (35.4-49); HEMOGLOBIN 10.4 GM/dL (11.7-16.9); MCH 28.2 pg (25.7-33.7); MCHC 33.8 g/dl (32.0-35.9); MEAN CELL VOLUME 83.3 fl (80-96); PLATELET COUNT 365 10^3/uL (134-434); RDW 16.1 % (11.9-15.9)
[2022-03-28 08:26] LABS: CALCIUM 8.1 mg/dL (8.5-10.1)
[2022-03-28 08:27] LABS: BLOOD UREA NITROGEN 7.8 mg/dL (7-18)
[2022-03-28 08:30] LABS: CREATININE 0.2 mg/dL (0.55-1.3)
[2022-03-28] MEDS: BUDESONIDE 0.5 MG/2 ML INH SUSP VIAL NEB SCH ×2 (08:54→21:23)
[2022-03-28] MEDS: CHOLECALCIFEROL (VIT D3) 1,000 UNIT (25 MCG) TABLET GT SCH (11:00)
[2022-03-28] MEDS: NYSTATIN 100,000 UNIT/GM TOPICAL CREAM 15 GM TUBE TP SCH ×2 (11:01→22:32)
[2022-03-28] MEDS: FINASTERIDE 5 MG TABLET (FP) PO SCH (11:01)
[2022-03-28] MEDS: METOPROLOL TARTRATE 25 MG TABLET (FP) GT SCH ×2 (11:01→22:25)
[2022-03-28] MEDS: FAMOTIDINE 40 MG/5 ML ORAL SUSPENSION GT SCH ×2 (11:01→22:31)
[2022-03-28] MEDS: APIXABAN 2.5 MG TABLET GT SCH ×2 (11:01→22:27)
[2022-03-28] MEDS: POLYETHYLENE GLYCOL (HEALTHYLAX) 3350 17 GM PACKET GT SCH (11:02)
[2022-03-28] MEDS: levETIRAcetam 500 MG/5 ML ORAL SOLUTION (UNIT-DOSE CUPS) GT SCH ×2 (11:02→22:30)
[2022-03-28] MEDS: carBAMazepine 200 MG/10 ML UNIT-DOSE CUP GT SCH ×2 (11:03→22:31)
[2022-03-28] MEDS: ACETAMINOPHEN 650 MG/20.3 ML ORAL SOLUTION (CUPS) GT PRN (22:53)
[2022-03-29] MEDS ORDERED: DEXTROSE 5%-WATER 100 ML IVPB ONE ×3 (02:14→16:57)
[2022-03-29] MEDS ORDERED: CEFEPIME HCL 1 GM VIAL (RESTRICTED TO ID) ONE ×3 (02:14→16:57)
[2022-03-29] MEDS: CEFEPIME 1 GM in DEXTROSE 5%-WATER 100 ML IVPB SCH ×3 (02:26→17:27)
[2022-03-29] MEDS: BACLOFEN 10 MG TABLET (FP) GT SCH ×2 (07:00→11:49)
[2022-03-29] MEDS: clonazePAM 0.5 MG TABLET GT SCH ×3 (07:01→22:49)
[2022-03-29] MEDS: DOXAZOSIN MESYLATE 1 MG TABLET GT SCH (07:02)
[2022-03-29] MEDS: BUDESONIDE 0.5 MG/2 ML INH SUSP VIAL NEB SCH ×2 (07:58→19:45)
[2022-03-29] MEDS: METOPROLOL TARTRATE 25 MG TABLET (FP) GT SCH ×2 (10:54→22:49)
[2022-03-29] MEDS: FINASTERIDE 5 MG TABLET (FP) PO SCH (10:54)
[2022-03-29] MEDS: NYSTATIN 100,000 UNIT/GM TOPICAL CREAM 15 GM TUBE TP SCH ×2 (10:55→22:57)
[2022-03-29] MEDS: APIXABAN 2.5 MG TABLET GT SCH ×2 (10:55→22:49)
[2022-03-29] MEDS: CHOLECALCIFEROL (VIT D3) 1,000 UNIT (25 MCG) TABLET GT SCH (10:55)
[2022-03-29] MEDS: FAMOTIDINE 40 MG/5 ML ORAL SUSPENSION GT SCH ×2 (10:56→22:56)
[2022-03-29] MEDS: levETIRAcetam 500 MG/5 ML ORAL SOLUTION (UNIT-DOSE CUPS) GT SCH ×2 (10:56→22:49)
[2022-03-29] MEDS: carBAMazepine 200 MG/10 ML UNIT-DOSE CUP GT SCH ×2 (10:56→22:56)
[2022-03-29] MEDS: POLYETHYLENE GLYCOL (HEALTHYLAX) 3350 17 GM PACKET GT SCH (10:56)
[2022-03-29] MEDS: SCOPOLAMINE HYDROBROMIDE 1 PATCH PATCH.TD72 TD SCH (22:56)
[2022-03-30] MEDS ORDERED: CEFEPIME HCL 1 GM VIAL (RESTRICTED TO ID) ONE ×2 (01:32→09:45)
[2022-03-30] MEDS ORDERED: DEXTROSE 5%-WATER 100 ML IVPB ONE ×2 (01:32→09:45)
[2022-03-30] MEDS: CEFEPIME 1 GM in DEXTROSE 5%-WATER 100 ML IVPB SCH ×2 (02:04→09:49)
[2022-03-30] MEDS: clonazePAM 0.5 MG TABLET GT SCH ×3 (06:46→22:42)
[2022-03-30] MEDS: DOXAZOSIN MESYLATE 1 MG TABLET GT SCH (06:47)
[2022-03-30] MEDS: BACLOFEN 10 MG TABLET (FP) GT SCH ×2 (06:47→12:51)
[2022-03-30 09:04] LABS: HEMATOCRIT 31.6 % (35.4-49); HEMOGLOBIN 10.8 GM/dL (11.7-16.9); MCH 28.8 pg (25.7-33.7); MCHC 34.3 g/dl (32.0-35.9); MEAN CELL VOLUME 83.9 fl (80-96); MEAN PLT VOLUME 7.1 fl (7.5-11.1); PLATELET COUNT 483 10^3/uL (134-434); RBC 3.76 M/mm3 (4.00-5.60); WHITE BLOOD COUNT 8.6 K/mm3 (4.0-10.0)
[2022-03-30 09:11] LABS: CALCIUM 8.4 mg/dL (8.5-10.1)
[2022-03-30 09:12] LABS: BLOOD UREA NITROGEN 7.8 mg/dL (7-18)
[2022-03-30 09:15] LABS: CREATININE 0.2 mg/dL (0.55-1.3)
[2022-03-30] MEDS: BUDESONIDE 0.5 MG/2 ML INH SUSP VIAL NEB SCH ×2 (09:15→20:10)
[2022-03-30] MEDS: FINASTERIDE 5 MG TABLET (FP) PO SCH (09:50)
[2022-03-30] MEDS: CHOLECALCIFEROL (VIT D3) 1,000 UNIT (25 MCG) TABLET GT SCH (09:50)
[2022-03-30] MEDS: APIXABAN 2.5 MG TABLET GT SCH ×2 (09:50→22:42)
[2022-03-30] MEDS: carBAMazepine 200 MG/10 ML UNIT-DOSE CUP GT SCH ×2 (09:50→22:43)
[2022-03-30] MEDS: levETIRAcetam 500 MG/5 ML ORAL SOLUTION (UNIT-DOSE CUPS) GT SCH ×2 (09:50→22:42)
[2022-03-30] MEDS: METOPROLOL TARTRATE 25 MG TABLET (FP) GT SCH ×2 (09:50→22:42)
[2022-03-30] MEDS: NYSTATIN 100,000 UNIT/GM TOPICAL CREAM 15 GM TUBE TP SCH ×2 (09:51→22:42)
[2022-03-30] MEDS: POLYETHYLENE GLYCOL (HEALTHYLAX) 3350 17 GM PACKET GT SCH (09:51)
[2022-03-30] MEDS: FAMOTIDINE 40 MG/5 ML ORAL SUSPENSION GT SCH ×2 (09:51→22:43)
[2022-03-30] MEDS ORDERED: metoPROLOL SUCCINATE 25 MG TAB.SR.24H (FP) PO SCH (10:00)
[2022-03-30] MEDS ORDERED: METOPROLOL TARTRATE 25 MG TABLET (FP) PO ONE (10:24)
[2022-03-30] MEDS ORDERED: METOPROLOL TARTRATE 25 MG TABLET (FP) GT ONE (12:30)
[2022-03-30] MEDS: ALBUTEROL SO4 0.5 % INH SOLN 2.5 MG/0.5 ML VIAL.NEB. NEB PRN (22:53)
[2022-03-31] MEDS: BACLOFEN 10 MG TABLET (FP) GT SCH ×2 (06:26→13:18)
[2022-03-31] MEDS: clonazePAM 0.5 MG TABLET GT SCH ×3 (06:26→21:47)
[2022-03-31] MEDS: DOXAZOSIN MESYLATE 1 MG TABLET GT SCH (06:27)
[2022-03-31] MEDS: BUDESONIDE 0.5 MG/2 ML INH SUSP VIAL NEB SCH ×2 (07:40→20:18)
[2022-03-31 08:34] LABS: HEMOGLOBIN 10.7 GM/dL (11.7-16.9); MCH 28.2 pg (25.7-33.7); MCHC 33.5 g/dl (32.0-35.9); MEAN CELL VOLUME 84.1 fl (80-96); MEAN PLT VOLUME 6.8 fl (7.5-11.1); PLATELET COUNT 565 10^3/uL (134-434); RDW 15.7 % (11.9-15.9); WHITE BLOOD COUNT 9.3 K/mm3 (4.0-10.0)
[2022-03-31 08:46] LABS: CALCIUM 8.4 mg/dL (8.5-10.1)
[2022-03-31 08:47] LABS: BLOOD UREA NITROGEN 9.9 mg/dL (7-18)
[2022-03-31 08:50] LABS: CREATININE 0.3 mg/dL (0.55-1.3)
[2022-03-31] MEDS: APIXABAN 2.5 MG TABLET GT SCH ×2 (10:48→21:44)
[2022-03-31] MEDS: POLYETHYLENE GLYCOL (HEALTHYLAX) 3350 17 GM PACKET GT SCH (10:48)
[2022-03-31] MEDS: levETIRAcetam 500 MG/5 ML ORAL SOLUTION (UNIT-DOSE CUPS) GT SCH ×2 (10:49→21:49)
[2022-03-31] MEDS: METOPROLOL TARTRATE 25 MG TABLET (FP) GT SCH ×2 (10:50→21:45)
[2022-03-31] MEDS: FAMOTIDINE 40 MG/5 ML ORAL SUSPENSION GT SCH ×2 (10:51→21:50)
[2022-03-31] MEDS: FINASTERIDE 5 MG TABLET (FP) PO SCH (10:51)
[2022-03-31] MEDS: carBAMazepine 200 MG/10 ML UNIT-DOSE CUP GT SCH ×2 (10:52→21:49)
[2022-03-31] MEDS: CHOLECALCIFEROL (VIT D3) 1,000 UNIT (25 MCG) TABLET GT SCH (10:52)
[2022-03-31] MEDS: NYSTATIN 100,000 UNIT/GM TOPICAL CREAM 15 GM TUBE TP SCH ×2 (11:45→21:50)
[2022-04-01] MEDS: clonazePAM 0.5 MG TABLET GT SCH ×3 (06:19→22:42)
[2022-04-01] MEDS: DOXAZOSIN MESYLATE 1 MG TABLET GT SCH (06:22)
[2022-04-01] MEDS: BACLOFEN 10 MG TABLET (FP) GT SCH ×2 (06:22→12:18)
[2022-04-01] MEDS: BUDESONIDE 0.5 MG/2 ML INH SUSP VIAL NEB SCH ×2 (07:31→21:00)
[2022-04-01 08:58] LABS: HEMATOCRIT 35.7 % (35.4-49); HEMOGLOBIN 11.8 GM/dL (11.7-16.9); MCH 27.7 pg (25.7-33.7); PLATELET COUNT 704 10^3/uL (134-434); RBC 4.25 M/mm3 (4.00-5.60); RDW 15.7 % (11.9-15.9); WHITE BLOOD COUNT 12.3 K/mm3 (4.0-10.0)
[2022-04-01 09:32] LABS: ALBUMIN 2.8 g/dl (3.4-5.0); BLOOD UREA NITROGEN 10.6 mg/dL (7-18); CALCIUM 8.5 mg/dL (8.5-10.1)
[2022-04-01 09:35] LABS: CREATININE 0.4 mg/dL (0.55-1.3)
[2022-04-01 09:37] LABS: BILIRUBIN,TOTAL 0.6 mg/dL (0.2-1); TOT PROT 8.2 g/dl (6.4-8.2)
[2022-04-01] MEDS: POLYETHYLENE GLYCOL (HEALTHYLAX) 3350 17 GM PACKET GT SCH (09:53)
[2022-04-01] MEDS: METOPROLOL TARTRATE 25 MG TABLET (FP) GT SCH ×2 (09:54→22:40)
[2022-04-01] MEDS: FAMOTIDINE 40 MG/5 ML ORAL SUSPENSION GT SCH ×2 (09:55→22:44)
[2022-04-01] MEDS: FINASTERIDE 5 MG TABLET (FP) PO SCH (09:55)
[2022-04-01] MEDS: CHOLECALCIFEROL (VIT D3) 1,000 UNIT (25 MCG) TABLET GT SCH (09:56)
[2022-04-01] MEDS: carBAMazepine 200 MG/10 ML UNIT-DOSE CUP GT SCH ×2 (09:56→22:44)
[2022-04-01] MEDS: NYSTATIN 100,000 UNIT/GM TOPICAL CREAM 15 GM TUBE TP SCH ×2 (10:26→22:45)
[2022-04-01] MEDS: levETIRAcetam 500 MG/5 ML ORAL SOLUTION (UNIT-DOSE CUPS) GT SCH ×2 (10:26→22:43)
[2022-04-01] MEDS: ALBUTEROL SO4 0.5 % INH SOLN 2.5 MG/0.5 ML VIAL.NEB. NEB PRN (14:26)
[2022-04-01 17:16] LABS: EPI CELLS >36 /uL (0-25.1); HYALINE CASTS 14 /uL (0-3.1); URINE APPEARANCE TURBID; URINE BACTERIA 59 /uL (0-1359); URINE BILIRUBIN NEGATIVE (NEGATIVE); URINE COLOR DK YELLOW; URINE GLUCOSE (UA) NEGATIVE (NEGATIVE); URINE KETONE NEGATIVE (NEGATIVE); URINE LEUK ESTERASE 1+ (NEGATIVE); URINE NITRITE NEGATIVE (NEGATIVE); URINE PROTEIN 2+ (NEGATIVE); URINE RBC 3746 /uL (0-23.9); URINE WBC 41 /uL (0-25.8)
[2022-04-01] MEDS: APIXABAN 2.5 MG TABLET GT SCH (22:33)
[2022-04-01] MEDS: SCOPOLAMINE HYDROBROMIDE 1 PATCH PATCH.TD72 TD SCH (23:14)
[2022-04-02] MEDS: ACETAMINOPHEN 650 MG/20.3 ML ORAL SOLUTION (CUPS) GT PRN ×3 (00:23→23:14)
[2022-04-02] MEDS: ALBUTEROL SO4 0.5 % INH SOLN 2.5 MG/0.5 ML VIAL.NEB. NEB PRN (01:43)
[2022-04-02] MEDS: BACLOFEN 10 MG TABLET (FP) GT SCH ×2 (06:16→12:20)
[2022-04-02] MEDS: DOXAZOSIN MESYLATE 1 MG TABLET GT SCH (06:17)
[2022-04-02] MEDS: clonazePAM 0.5 MG TABLET GT SCH ×3 (06:19→23:16)
[2022-04-02] MEDS: BUDESONIDE 0.5 MG/2 ML INH SUSP VIAL NEB SCH ×2 (07:40→20:09)
[2022-04-02 08:56] LABS: HEMATOCRIT 36.3 % (35.4-49); HEMOGLOBIN 11.8 GM/dL (11.7-16.9); MCH 27.9 pg (25.7-33.7); MCHC 32.5 g/dl (32.0-35.9); MEAN CELL VOLUME 85.8 fl (80-96); MEAN PLT VOLUME 7.2 fl (7.5-11.1); PLATELET COUNT 703 10^3/uL (134-434); RBC 4.23 M/mm3 (4.00-5.60); RDW 16.3 % (11.9-15.9); WHITE BLOOD COUNT 14.4 K/mm3 (4.0-10.0)
[2022-04-02 09:57] LABS: ALBUMIN 2.9 g/dl (3.4-5.0); CALCIUM 8.7 mg/dL (8.5-10.1)
[2022-04-02 09:58] LABS: BLOOD UREA NITROGEN 14.6 mg/dL (7-18)
[2022-04-02 10:00] LABS: CREATININE 0.3 mg/dL (0.55-1.3)
[2022-04-02 10:01] LABS: BILIRUBIN,TOTAL 0.8 mg/dL (0.2-1)
[2022-04-02] MEDS: APIXABAN 2.5 MG TABLET GT SCH ×2 (10:01→23:16)
[2022-04-02] MEDS: POLYETHYLENE GLYCOL (HEALTHYLAX) 3350 17 GM PACKET GT SCH (10:01)
[2022-04-02] MEDS: levETIRAcetam 500 MG/5 ML ORAL SOLUTION (UNIT-DOSE CUPS) GT SCH ×2 (10:02→23:15)
[2022-04-02] MEDS: METOPROLOL TARTRATE 25 MG TABLET (FP) GT SCH ×2 (10:02→23:15)
[2022-04-02] MEDS: NYSTATIN 100,000 UNIT/GM TOPICAL CREAM 15 GM TUBE TP SCH ×2 (10:03→23:17)
[2022-04-02] MEDS: FAMOTIDINE 40 MG/5 ML ORAL SUSPENSION GT SCH ×2 (10:03→23:17)
[2022-04-02] MEDS: CHOLECALCIFEROL (VIT D3) 1,000 UNIT (25 MCG) TABLET GT SCH (10:04)
[2022-04-02] MEDS: FINASTERIDE 5 MG TABLET (FP) PO SCH (10:04)
[2022-04-02] MEDS: carBAMazepine 200 MG/10 ML UNIT-DOSE CUP GT SCH ×2 (10:05→23:17)
[2022-04-02] MEDS: CEFTAZIDIME/AVIBACTAM 2.5 GM in DEXTROSE 5%-WATER - 250 ML IVPB SCH (17:12)
[2022-04-03] MEDS: CEFTAZIDIME/AVIBACTAM 2.5 GM in DEXTROSE 5%-WATER - 250 ML IVPB SCH ×3 (01:58→18:11)
[2022-04-03] MEDS: clonazePAM 0.5 MG TABLET GT SCH ×3 (05:41→21:34)
[2022-04-03] MEDS: BACLOFEN 10 MG TABLET (FP) GT SCH ×2 (05:41→13:16)
[2022-04-03] MEDS: DOXAZOSIN MESYLATE 1 MG TABLET GT SCH (06:20)
[2022-04-03] MEDS: BUDESONIDE 0.5 MG/2 ML INH SUSP VIAL NEB SCH ×2 (07:37→20:00)
[2022-04-03] MEDS: METOPROLOL TARTRATE 25 MG TABLET (FP) GT SCH ×2 (11:22→21:34)
[2022-04-03] MEDS: FINASTERIDE 5 MG TABLET (FP) PO SCH (11:22)
[2022-04-03] MEDS: CHOLECALCIFEROL (VIT D3) 1,000 UNIT (25 MCG) TABLET GT SCH (11:22)
[2022-04-03] MEDS: APIXABAN 2.5 MG TABLET GT SCH ×2 (11:22→21:35)
[2022-04-03] MEDS: levETIRAcetam 500 MG/5 ML ORAL SOLUTION (UNIT-DOSE CUPS) GT SCH ×2 (11:22→21:32)
[2022-04-03] MEDS: POLYETHYLENE GLYCOL (HEALTHYLAX) 3350 17 GM PACKET GT SCH (11:23)
[2022-04-03] MEDS: FAMOTIDINE 40 MG/5 ML ORAL SUSPENSION GT SCH ×2 (11:23→21:35)
[2022-04-03] MEDS: carBAMazepine 200 MG/10 ML UNIT-DOSE CUP GT SCH ×2 (11:23→21:34)
[2022-04-03] MEDS: NYSTATIN 100,000 UNIT/GM TOPICAL CREAM 15 GM TUBE TP SCH ×2 (11:23→21:35)
[2022-04-03 12:19] LABS: HEMATOCRIT 32.3 % (35.4-49); HEMOGLOBIN 10.9 GM/dL (11.7-16.9); MCH 28.6 pg (25.7-33.7); MCHC 33.6 g/dl (32.0-35.9); MEAN PLT VOLUME 6.9 fl (7.5-11.1); PLATELET COUNT 725 10^3/uL (134-434); RDW 15.6 % (11.9-15.9); WHITE BLOOD COUNT 10.2 K/mm3 (4.0-10.0)
[2022-04-03] MEDS: LACTATED RINGERS SOLUTION 1,000 ML/1,000 ML INFUS.BAG IV SCH (12:22)
[2022-04-03 12:37] LABS: CALCIUM 8.5 mg/dL (8.5-10.1)
[2022-04-03 12:38] LABS: ALBUMIN 2.6 g/dl (3.4-5.0); BLOOD UREA NITROGEN 14.1 mg/dL (7-18)
[2022-04-03 12:41] LABS: CREATININE 0.2 mg/dL (0.55-1.3)
[2022-04-03 12:43] LABS: BILIRUBIN,TOTAL 0.3 mg/dL (0.2-1); TOT PROT 7.5 g/dl (6.4-8.2)
[2022-04-04] MEDS: CEFTAZIDIME/AVIBACTAM 2.5 GM in DEXTROSE 5%-WATER - 250 ML IVPB SCH ×3 (02:27→18:15)
[2022-04-04] MEDS: clonazePAM 0.5 MG TABLET GT SCH ×3 (06:14→22:43)
[2022-04-04] MEDS: BACLOFEN 10 MG TABLET (FP) GT SCH ×2 (06:14→11:48)
[2022-04-04] MEDS: DOXAZOSIN MESYLATE 1 MG TABLET GT SCH (06:16)
[2022-04-04] MEDS: BUDESONIDE 0.5 MG/2 ML INH SUSP VIAL NEB SCH ×2 (07:50→20:05)
[2022-04-04] MEDS: ALBUTEROL SO4 0.5 % INH SOLN 2.5 MG/0.5 ML VIAL.NEB. NEB PRN (07:57)
[2022-04-04 09:08] LABS: HEMATOCRIT 28.8 % (35.4-49); HEMOGLOBIN 9.5 GM/dL (11.7-16.9); MCH 28.1 pg (25.7-33.7); MCHC 32.9 g/dl (32.0-35.9); MEAN CELL VOLUME 85.5 fl (80-96); MEAN PLT VOLUME 6.7 fl (7.5-11.1); PLATELET COUNT 669 10^3/uL (134-434); RBC 3.37 M/mm3 (4.00-5.60); RDW 15.7 % (11.9-15.9); WHITE BLOOD COUNT 6.9 K/mm3 (4.0-10.0)
[2022-04-04] MEDS: METOPROLOL TARTRATE 25 MG TABLET (FP) GT SCH ×2 (09:24→22:44)
[2022-04-04] MEDS: POLYETHYLENE GLYCOL (HEALTHYLAX) 3350 17 GM PACKET GT SCH (09:24)
[2022-04-04] MEDS: CHOLECALCIFEROL (VIT D3) 1,000 UNIT (25 MCG) TABLET GT SCH (09:24)
[2022-04-04] MEDS: APIXABAN 2.5 MG TABLET GT SCH ×2 (09:24→22:44)
[2022-04-04] MEDS: FINASTERIDE 5 MG TABLET (FP) PO SCH (09:24)
[2022-04-04] MEDS: FAMOTIDINE 40 MG/5 ML ORAL SUSPENSION GT SCH ×2 (09:25→22:42)
[2022-04-04] MEDS: levETIRAcetam 500 MG/5 ML ORAL SOLUTION (UNIT-DOSE CUPS) GT SCH ×2 (09:25→22:42)
[2022-04-04] MEDS: NYSTATIN 100,000 UNIT/GM TOPICAL CREAM 15 GM TUBE TP SCH ×2 (09:25→22:43)
[2022-04-04] MEDS: carBAMazepine 200 MG/10 ML UNIT-DOSE CUP GT SCH ×2 (09:25→22:43)
[2022-04-04 09:31] LABS: CALCIUM 8.4 mg/dL (8.5-10.1)
[2022-04-04 09:32] LABS: ALBUMIN 2.2 g/dl (3.4-5.0); BLOOD UREA NITROGEN 7.9 mg/dL (7-18); MAGNESIUM 2.3 mg/dL (1.8-2.4)
[2022-04-04 09:34] LABS: PHOSPHOROUS 4.8 mg/dL (2.5-4.9)
[2022-04-04 09:35] LABS: BILIRUBIN,TOTAL 0.2 mg/dL (0.2-1); CREATININE 0.2 mg/dL (0.55-1.3); TOT PROT 6.6 g/dl (6.4-8.2)
[2022-04-04] MEDS: LACTATED RINGERS SOLUTION 1,000 ML/1,000 ML INFUS.BAG IV SCH (11:48)
[2022-04-04] MEDS: SCOPOLAMINE HYDROBROMIDE 1 PATCH PATCH.TD72 TD SCH (22:44)
[2022-04-05] MEDS: CEFTAZIDIME/AVIBACTAM 2.5 GM in DEXTROSE 5%-WATER - 250 ML IVPB SCH ×3 (02:29→18:10)
[2022-04-05] MEDS: LACTATED RINGERS SOLUTION 1,000 ML/1,000 ML INFUS.BAG IV SCH ×2 (06:20→11:25)
[2022-04-05] MEDS: clonazePAM 0.5 MG TABLET GT SCH ×3 (06:20→21:36)
[2022-04-05] MEDS: DOXAZOSIN MESYLATE 1 MG TABLET GT SCH (06:20)
[2022-04-05] MEDS: BACLOFEN 10 MG TABLET (FP) GT SCH ×2 (06:20→14:07)
[2022-04-05] MEDS: BUDESONIDE 0.5 MG/2 ML INH SUSP VIAL NEB SCH ×2 (07:15→20:05)
[2022-04-05 08:41] LABS: BASO % 0.7 % (0-2.0); EOS % 3.3 % (0-4.5); HEMATOCRIT 28.6 % (35.4-49); HEMOGLOBIN 9.5 GM/dL (11.7-16.9); LYMPH % 29.7 % (8-40); MCH 28.2 pg (25.7-33.7); MCHC 33.1 g/dl (32.0-35.9); MEAN CELL VOLUME 85.1 fl (80-96); MEAN PLT VOLUME 6.7 fl (7.5-11.1); MONO % 12.5 % (3.8-10.2); NEUT % 53.8 % (42.8-82.8); PLATELET COUNT 669 10^3/uL (134-434); RBC 3.36 M/mm3 (4.00-5.60); RDW 15.6 % (11.9-15.9); WHITE BLOOD COUNT 4.9 K/mm3 (4.0-10.0)
[2022-04-05 09:02] LABS: CALCIUM 8.2 mg/dL (8.5-10.1)
[2022-04-05 09:03] LABS: ALBUMIN 2.3 g/dl (3.4-5.0); BLOOD UREA NITROGEN 7.5 mg/dL (7-18)
[2022-04-05 09:06] LABS: CREATININE 0.2 mg/dL (0.55-1.3)
[2022-04-05 09:08] LABS: BILIRUBIN,TOTAL 0.4 mg/dL (0.2-1); TOT PROT 6.7 g/dl (6.4-8.2)
[2022-04-05] MEDS: METOPROLOL TARTRATE 25 MG TABLET (FP) GT SCH ×2 (11:19→21:36)
[2022-04-05] MEDS: FINASTERIDE 5 MG TABLET (FP) PO SCH (11:20)
[2022-04-05] MEDS: APIXABAN 2.5 MG TABLET GT SCH ×2 (11:21→21:36)
[2022-04-05] MEDS: CHOLECALCIFEROL (VIT D3) 1,000 UNIT (25 MCG) TABLET GT SCH (11:21)
[2022-04-05] MEDS: levETIRAcetam 500 MG/5 ML ORAL SOLUTION (UNIT-DOSE CUPS) GT SCH ×2 (11:21→21:36)
[2022-04-05] MEDS: POLYETHYLENE GLYCOL (HEALTHYLAX) 3350 17 GM PACKET GT SCH (11:22)
[2022-04-05] MEDS: NYSTATIN 100,000 UNIT/GM TOPICAL CREAM 15 GM TUBE TP SCH ×2 (11:23→21:36)
[2022-04-05] MEDS: FAMOTIDINE 40 MG/5 ML ORAL SUSPENSION GT SCH ×2 (11:24→21:35)
[2022-04-05] MEDS: carBAMazepine 200 MG/10 ML UNIT-DOSE CUP GT SCH ×2 (11:25→21:35)
[2022-04-06] MEDS: CEFTAZIDIME/AVIBACTAM 2.5 GM in DEXTROSE 5%-WATER - 250 ML IVPB SCH ×3 (02:34→17:01)
[2022-04-06] MEDS: clonazePAM 0.5 MG TABLET GT SCH ×3 (06:11→23:28)
[2022-04-06] MEDS: DOXAZOSIN MESYLATE 1 MG TABLET GT SCH (06:11)
[2022-04-06] MEDS: BACLOFEN 10 MG TABLET (FP) GT SCH ×2 (06:11→12:04)
[2022-04-06] MEDS: BUDESONIDE 0.5 MG/2 ML INH SUSP VIAL NEB SCH ×2 (07:17→21:04)
[2022-04-06] MEDS: carBAMazepine 200 MG/10 ML UNIT-DOSE CUP GT SCH ×2 (09:32→23:27)
[2022-04-06] MEDS: levETIRAcetam 500 MG/5 ML ORAL SOLUTION (UNIT-DOSE CUPS) GT SCH ×2 (11:10→23:27)
[2022-04-06] MEDS: METOPROLOL TARTRATE 25 MG TABLET (FP) GT SCH ×2 (11:11→23:28)
[2022-04-06] MEDS: FINASTERIDE 5 MG TABLET (FP) PO SCH (11:11)
[2022-04-06] MEDS: CHOLECALCIFEROL (VIT D3) 1,000 UNIT (25 MCG) TABLET GT SCH (11:11)
[2022-04-06] MEDS: APIXABAN 2.5 MG TABLET GT SCH ×2 (11:17→23:28)
[2022-04-06] MEDS: POLYETHYLENE GLYCOL (HEALTHYLAX) 3350 17 GM PACKET GT SCH (11:18)
[2022-04-06] MEDS: FAMOTIDINE 40 MG/5 ML ORAL SUSPENSION GT SCH ×2 (11:19→23:29)
[2022-04-06] MEDS: NYSTATIN 100,000 UNIT/GM TOPICAL CREAM 15 GM TUBE TP SCH ×2 (11:22→23:28)
[2022-04-07] MEDS: CEFTAZIDIME/AVIBACTAM 2.5 GM in DEXTROSE 5%-WATER - 250 ML IVPB SCH ×3 (01:57→18:22)
[2022-04-07] MEDS: BACLOFEN 10 MG TABLET (FP) GT SCH ×2 (06:54→12:23)
[2022-04-07] MEDS: clonazePAM 0.5 MG TABLET GT SCH ×3 (06:54→23:13)
[2022-04-07] MEDS: DOXAZOSIN MESYLATE 1 MG TABLET GT SCH (06:55)
[2022-04-07] MEDS: BUDESONIDE 0.5 MG/2 ML INH SUSP VIAL NEB SCH ×2 (07:11→20:05)
[2022-04-07] MEDS: FINASTERIDE 5 MG TABLET (FP) PO SCH (10:24)
[2022-04-07] MEDS: METOPROLOL TARTRATE 25 MG TABLET (FP) GT SCH ×2 (10:24→23:15)
[2022-04-07] MEDS: APIXABAN 2.5 MG TABLET GT SCH ×2 (10:24→23:16)
[2022-04-07] MEDS: POLYETHYLENE GLYCOL (HEALTHYLAX) 3350 17 GM PACKET GT SCH (10:25)
[2022-04-07] MEDS: CHOLECALCIFEROL (VIT D3) 1,000 UNIT (25 MCG) TABLET GT SCH (10:25)
[2022-04-07] MEDS: levETIRAcetam 500 MG/5 ML ORAL SOLUTION (UNIT-DOSE CUPS) GT SCH ×2 (10:25→23:17)
[2022-04-07] MEDS: NYSTATIN 100,000 UNIT/GM TOPICAL CREAM 15 GM TUBE TP SCH ×2 (10:26→23:18)
[2022-04-07] MEDS: FAMOTIDINE 40 MG/5 ML ORAL SUSPENSION GT SCH ×2 (10:26→23:18)
[2022-04-07] MEDS: carBAMazepine 200 MG/10 ML UNIT-DOSE CUP GT SCH ×2 (10:26→23:17)
[2022-04-07 12:08] LABS: BASO % 0.5 % (0-2.0); EOS % 1.5 % (0-4.5); HEMATOCRIT 32.2 % (35.4-49); HEMOGLOBIN 10.7 GM/dL (11.7-16.9); MCH 28.3 pg (25.7-33.7); MCHC 33.2 g/dl (32.0-35.9); MEAN CELL VOLUME 85.1 fl (80-96); MONO % 5.5 % (3.8-10.2); NEUT % 75.5 % (42.8-82.8); PLATELET COUNT 704 10^3/uL (134-434); RBC 3.78 M/mm3 (4.00-5.60); RDW 15.4 % (11.9-15.9); WHITE BLOOD COUNT 8.4 K/mm3 (4.0-10.0)
[2022-04-07 12:11] LABS: CALCIUM 8.7 mg/dL (8.5-10.1)
[2022-04-07 12:12] LABS: ALBUMIN 2.7 g/dl (3.4-5.0); BLOOD UREA NITROGEN 5.4 mg/dL (7-18)
[2022-04-07 12:15] LABS: CREATININE 0.3 mg/dL (0.55-1.3)
[2022-04-07 12:16] LABS: BILIRUBIN,TOTAL 0.3 mg/dL (0.2-1); TOT PROT 7.6 g/dl (6.4-8.2)
[2022-04-07] MEDS: SCOPOLAMINE HYDROBROMIDE 1 PATCH PATCH.TD72 TD SCH ×2 (18:26→23:19)
[2022-04-08] MEDS: CEFTAZIDIME/AVIBACTAM 2.5 GM in DEXTROSE 5%-WATER - 250 ML IVPB SCH ×3 (02:54→17:48)
[2022-04-08] MEDS: BACLOFEN 10 MG TABLET (FP) GT SCH ×2 (06:22→11:13)
[2022-04-08] MEDS: DOXAZOSIN MESYLATE 1 MG TABLET GT SCH (06:22)
[2022-04-08] MEDS: clonazePAM 0.5 MG TABLET GT SCH ×3 (06:22→22:17)
[2022-04-08] MEDS: BUDESONIDE 0.5 MG/2 ML INH SUSP VIAL NEB SCH ×2 (07:29→20:29)
[2022-04-08 09:28] LABS: HEMATOCRIT 37.6 % (35.4-49); HEMOGLOBIN 12.4 GM/dL (11.7-16.9); MCH 28.1 pg (25.7-33.7); MEAN CELL VOLUME 85.2 fl (80-96); MEAN PLT VOLUME 7.1 fl (7.5-11.1); PLATELET COUNT 674 10^3/uL (134-434); RBC 4.42 M/mm3 (4.00-5.60); RDW 15.8 % (11.9-15.9)
[2022-04-08 09:29] LABS: WHITE BLOOD COUNT 11.3 K/mm3 (4.0-10.0)
[2022-04-08] MEDS: APIXABAN 2.5 MG TABLET GT SCH ×2 (11:13→22:19)
[2022-04-08] MEDS: FINASTERIDE 5 MG TABLET (FP) PO SCH (11:13)
[2022-04-08] MEDS: CHOLECALCIFEROL (VIT D3) 1,000 UNIT (25 MCG) TABLET GT SCH (11:14)
[2022-04-08] MEDS: levETIRAcetam 500 MG/5 ML ORAL SOLUTION (UNIT-DOSE CUPS) GT SCH ×2 (11:14→22:28)
[2022-04-08] MEDS: METOPROLOL TARTRATE 25 MG TABLET (FP) GT SCH ×2 (11:14→22:19)
[2022-04-08] MEDS: POLYETHYLENE GLYCOL (HEALTHYLAX) 3350 17 GM PACKET GT SCH (11:14)
[2022-04-08] MEDS: NYSTATIN 100,000 UNIT/GM TOPICAL CREAM 15 GM TUBE TP SCH ×2 (11:16→22:30)
[2022-04-08] MEDS: FAMOTIDINE 40 MG/5 ML ORAL SUSPENSION GT SCH ×2 (11:21→22:29)
[2022-04-08] MEDS: carBAMazepine 200 MG/10 ML UNIT-DOSE CUP GT SCH ×2 (11:22→22:30)
[2022-04-09] MEDS: CEFTAZIDIME/AVIBACTAM 2.5 GM in DEXTROSE 5%-WATER - 250 ML IVPB SCH ×3 (01:47→17:44)
[2022-04-09] MEDS: clonazePAM 0.5 MG TABLET GT SCH ×3 (06:19→21:28)
[2022-04-09] MEDS: DOXAZOSIN MESYLATE 1 MG TABLET GT SCH (06:20)
[2022-04-09] MEDS: BACLOFEN 10 MG TABLET (FP) GT SCH ×2 (06:20→13:22)
[2022-04-09] MEDS: BUDESONIDE 0.5 MG/2 ML INH SUSP VIAL NEB SCH ×2 (07:29→20:54)
[2022-04-09 10:39] LABS: HEMOGLOBIN 13.2 GM/dL (11.7-16.9); MCH 27.9 pg (25.7-33.7); MEAN CELL VOLUME 84.6 fl (80-96); MEAN PLT VOLUME 6.8 fl (7.5-11.1); PLATELET COUNT 732 10^3/uL (134-434); RBC 4.73 M/mm3 (4.00-5.60); RDW 15.5 % (11.9-15.9); WHITE BLOOD COUNT 8.6 K/mm3 (4.0-10.0)
[2022-04-09 10:59] LABS: ALBUMIN 2.9 g/dl (3.4-5.0); BLOOD UREA NITROGEN 7.1 mg/dL (7-18); CALCIUM 9.1 mg/dL (8.5-10.1); MAGNESIUM 2.4 mg/dL (1.8-2.4)
[2022-04-09 11:02] LABS: CREATININE 0.4 mg/dL (0.55-1.3)
[2022-04-09 11:05] LABS: BILIRUBIN,TOTAL 0.2 mg/dL (0.2-1); TOT PROT 8.5 g/dl (6.4-8.2)
[2022-04-09] MEDS: FINASTERIDE 5 MG TABLET (FP) PO SCH (11:21)
[2022-04-09] MEDS: APIXABAN 2.5 MG TABLET GT SCH ×2 (11:21→21:28)
[2022-04-09] MEDS: METOPROLOL TARTRATE 25 MG TABLET (FP) GT SCH ×2 (11:21→21:28)
[2022-04-09] MEDS: levETIRAcetam 500 MG/5 ML ORAL SOLUTION (UNIT-DOSE CUPS) GT SCH ×2 (11:21→21:27)
[2022-04-09] MEDS: CHOLECALCIFEROL (VIT D3) 1,000 UNIT (25 MCG) TABLET GT SCH (11:21)
[2022-04-09] MEDS: carBAMazepine 200 MG/10 ML UNIT-DOSE CUP GT SCH ×2 (11:21→21:29)
[2022-04-09] MEDS: NYSTATIN 100,000 UNIT/GM TOPICAL CREAM 15 GM TUBE TP SCH ×2 (11:22→21:28)
[2022-04-09] MEDS: FAMOTIDINE 40 MG/5 ML ORAL SUSPENSION GT SCH ×2 (11:22→21:28)
[2022-04-09] MEDS: POLYETHYLENE GLYCOL (HEALTHYLAX) 3350 17 GM PACKET GT SCH (11:22)
[2022-04-09 23:55] VITALS: RESP 20
[2022-04-10] MEDS: CEFTAZIDIME/AVIBACTAM 2.5 GM in DEXTROSE 5%-WATER - 250 ML IVPB SCH ×2 (02:25→10:44)
[2022-04-10] MEDS: clonazePAM 0.5 MG TABLET GT SCH ×2 (06:08→14:21)
[2022-04-10] MEDS: BACLOFEN 10 MG TABLET (FP) GT SCH ×2 (06:09→12:06)
[2022-04-10] MEDS: DOXAZOSIN MESYLATE 1 MG TABLET GT SCH (06:09)
[2022-04-10] MEDS: BUDESONIDE 0.5 MG/2 ML INH SUSP VIAL NEB SCH (07:30)
[2022-04-10] MEDS ORDERED: FINASTERIDE 5 MG TABLET (FP) NR SCH (09:39)
[2022-04-10] MEDS: APIXABAN 2.5 MG TABLET GT SCH (10:34)
[2022-04-10] MEDS: POLYETHYLENE GLYCOL (HEALTHYLAX) 3350 17 GM PACKET GT SCH (10:35)
[2022-04-10] MEDS: METOPROLOL TARTRATE 25 MG TABLET (FP) GT SCH (10:35)
[2022-04-10] MEDS: levETIRAcetam 500 MG/5 ML ORAL SOLUTION (UNIT-DOSE CUPS) GT SCH (10:35)
[2022-04-10] MEDS: NYSTATIN 100,000 UNIT/GM TOPICAL CREAM 15 GM TUBE TP SCH (10:36)
[2022-04-10] MEDS: FAMOTIDINE 40 MG/5 ML ORAL SUSPENSION GT SCH (10:37)
[2022-04-10] MEDS: CHOLECALCIFEROL (VIT D3) 1,000 UNIT (25 MCG) TABLET GT SCH (10:39)
[2022-04-10] MEDS: carBAMazepine 200 MG/10 ML UNIT-DOSE CUP GT SCH (10:39)
[2022-04-10] MEDS ORDERED: CEFTAZIDIME/AVIBACTAM 2.5 GM in DEXTROSE 5%-WATER - 250 ML IVPB ONE (13:00)
[2022-04-10 16:04] VITALS: BP 98/54; PULSE 116; TEMP 97.9
== END 2022-04-10 16:30 | disposition home or self-care (01) | DRG 720 ==
LOC: JER 11:24 → JERBED 15:06 → J4S 03-20 00:05 → J8W 03-22 20:37
PROVIDERS: ADMIT Internal Medicine; ATTEND Internal Medicine
DX: A41.9 Sepsis, unspecified organism (principal); Q02 Microcephaly; G40.909 Epilepsy, unspecified, not intractable, without status epilepticus; J45.909 Unspecified asthma, uncomplicated; R53.2 Functional quadriplegia; G80.8 Other cerebral palsy; M41.9 Scoliosis, unspecified; Z86.718 Personal history of other venous thrombosis and embolism; Z79.01 Long term (current) use of anticoagulants; J69.0 Pneumonitis due to inhalation of food and vomit; E87.1 Hypo-osmolality and hyponatremia; E87.6 Hypokalemia; B35.3 Tinea pedis; R62.50 Unspecified lack of expected normal physiological development in childhood; E86.1 Hypovolemia; R33.8 Other retention of urine
CPT/HCPCS: 0241U-QW; 36415; 71045-TC-FY; 71250-TC; 80048; 80053; 81003; 82272; 82803; 83605; 83735; 84100; 84439; 84443; 85025; 85027; 87040; 87070; 87081; 87086; 87184; 87186; 87205; 87899; 93005; 93010; 94640; 94761; 99285-25; C9803-CS; J0475; U0003; U0005

== ENCOUNTER 2022-09-27 05:06 | Inpatient (IN) | payer OTHER ==
[2022-09-27] MEDS ORDERED: PIPERACILLIN/TAZOB 4.5 GM 4.5 GM in DEXTROSE 5%-WATER 100 ML IVPB ONE (05:19)
[2022-09-27] MEDS ORDERED: PIPERACILLIN/TAZOB 4.5 GM 4.5 GM/100 ML BAG IVPB ONE ×3 (05:38→14:55)
[2022-09-27 06:12] LABS: URINE APPEARANCE CLOUDY; URINE BILIRUBIN NEGATIVE (NEGATIVE); URINE COLOR YELLOW; URINE GLUCOSE (UA) NEGATIVE (NEGATIVE); URINE KETONE NEGATIVE (NEGATIVE); URINE LEUK ESTERASE NEGATIVE (NEGATIVE); URINE NITRITE NEGATIVE (NEGATIVE); URINE PROTEIN NEGATIVE (NEGATIVE); URINE UROBILINOGEN 0.2 mg/dL (0.2-1.0)
[2022-09-27 06:13] LABS: INR 1.18 (0.83-1.09); PROTHROMBIN TIME (PATIENT) 13.6 SEC (9.7-13.0)
[2022-09-27 06:15] LABS: ACTIVATED PTT 31.9 SECONDS (25.2-36.5)
[2022-09-27 06:25] LABS: CALCIUM 8.7 mg/dL (8.5-10.1)
[2022-09-27 06:26] LABS: ALBUMIN 3.5 g/dl (3.4-5.0); BLOOD UREA NITROGEN 7.6 mg/dL (7-18)
[2022-09-27 06:29] LABS: CREATININE 0.4 mg/dL (0.55-1.3)
[2022-09-27 06:30] LABS: TOT PROT 8.2 g/dl (6.4-8.2)
[2022-09-27 06:31] LABS: BILIRUBIN,TOTAL 0.2 mg/dL (0.2-1)
[2022-09-27 06:58] LABS: BASO % 0.3 % (0-2.0); EOS % 0.4 % (0-4.5); HEMATOCRIT 38.6 % (35.4-49); HEMOGLOBIN 12.8 GM/dL (11.7-16.9); LYMPH % 20.8 % (8-40); MCH 28.2 pg (25.7-33.7); MCHC 33.3 g/dl (32.0-35.9); MEAN CELL VOLUME 84.6 fl (80-96); MEAN PLT VOLUME 7.8 fl (7.5-11.1); NEUT % 69.5 % (42.8-82.8); PLATELET COUNT 234 10^3/uL (134-434); RBC 4.56 M/mm3 (4.00-5.60); WHITE BLOOD COUNT 9.2 K/mm3 (4.0-10.0)
[2022-09-27 07:00] LABS: VENOUS BASE EXCESS 0.1 mmol/L (-2-2); VENOUS O2 SATURATION 94.1 % (70-80); VENOUS PCO2 38.6 mmHg (38-52); VENOUS PH 7.418 (7.310-7.410)
[2022-09-27 07:19] LABS: ALBUMIN 3.4 g/dl (3.4-5.0); CALCIUM 8.6 mg/dL (8.5-10.1)
[2022-09-27 07:20] LABS: BLOOD UREA NITROGEN 7.4 mg/dL (7-18)
[2022-09-27 07:23] LABS: CREATININE 0.3 mg/dL (0.55-1.3)
[2022-09-27 07:24] LABS: BILIRUBIN,TOTAL 0.2 mg/dL (0.2-1); TOT PROT 7.7 g/dl (6.4-8.2)
[2022-09-27] MEDS ORDERED: PIPERACILLIN/TAZOB 4.5 GM 4.5 GM in DEXTROSE 5%-WATER 100 ML IVPB SCH ×2 (10:00→11:00)
[2022-09-27] MEDS ORDERED: APIXABAN 2.5 MG TABLET ONE ×2 (10:08→22:03)
[2022-09-27] MEDS ORDERED: METOPROLOL TARTRATE 25 MG TABLET (FP) ONE ×2 (10:08→22:03)
[2022-09-27] MEDS: SCOPOLAMINE HYDROBROMIDE 1 PATCH PATCH.TD72 TD SCH (10:23)
[2022-09-27] MEDS: levETIRAcetam 500 MG/5 ML ORAL SOLUTION (UNIT-DOSE CUPS) GT SCH ×2 (10:23→22:15)
[2022-09-27] MEDS: APIXABAN 2.5 MG TABLET GT SCH ×2 (10:23→22:15)
[2022-09-27] MEDS: METOPROLOL TARTRATE 25 MG TABLET (FP) GT SCH ×2 (10:23→22:28)
[2022-09-27] MEDS: carBAMazepine 200 MG/10 ML UNIT-DOSE CUP PO SCH ×2 (10:23→22:15)
[2022-09-27] MEDS: NYSTATIN 100,000 UNIT/GM TOPICAL CREAM 15 GM TUBE TP SCH ×2 (10:33→22:15)
[2022-09-27] MEDS: SODIUM CHLORIDE 1,000 ML IV SCH (11:55)
[2022-09-27] MEDS: BACLOFEN 10 MG TABLET (FP) GT SCH (12:13)
[2022-09-27] MEDS ORDERED: BACLOFEN 10 MG TABLET (FP) ONE (12:14)
[2022-09-27] MEDS ORDERED: clonazePAM 0.5 MG TABLET ONE ×2 (13:31→22:03)
[2022-09-27] MEDS: clonazePAM 2 MG TABLET GT SCH ×2 (13:54→22:15)
[2022-09-27] MEDS: PIPERACILLIN/TAZOB 3.375 GM 3.375 GM in DEXTROSE 5%-WATER - 50 ML IVPB SCH (17:00)
[2022-09-28] MEDS ORDERED: ALBUTEROL SO4 2.5/IPRATROPIUM 0.5 INH SOL 3 ML VIAL.NEB. NEB ONE (02:36)
[2022-09-28] MEDS ORDERED: PIPERACILLIN/TAZOB 3.375 GM 3.375 GM/50 ML BAG IVPB ONE ×2 (02:36→08:39)
[2022-09-28] MEDS: PIPERACILLIN/TAZOB 3.375 GM 3.375 GM in DEXTROSE 5%-WATER - 50 ML IVPB SCH ×3 (02:43→17:00)
[2022-09-28] MEDS: ALBUTEROL SO4 2.5/IPRATROPIUM 0.5 INH SOL 3 ML VIAL.NEB. NEB PRN (06:13)
[2022-09-28] MEDS: BACLOFEN 10 MG TABLET (FP) GT SCH ×2 (06:13→13:37)
[2022-09-28] MEDS ORDERED: clonazePAM 0.5 MG TABLET ONE ×2 (06:20→13:32)
[2022-09-28] MEDS: clonazePAM 2 MG TABLET GT SCH ×3 (06:24→23:09)
[2022-09-28] MEDS ORDERED: BACLOFEN 10 MG TABLET (FP) ONE ×2 (06:27→13:32)
[2022-09-28] MEDS ORDERED: METOPROLOL TARTRATE 25 MG TABLET (FP) ONE (08:38)
[2022-09-28] MEDS ORDERED: APIXABAN 2.5 MG TABLET ONE (08:38)
[2022-09-28] MEDS: SODIUM CHLORIDE 1,000 ML IV SCH ×2 (08:51→23:18)
[2022-09-28] MEDS: NYSTATIN 100,000 UNIT/GM TOPICAL CREAM 15 GM TUBE TP SCH ×2 (08:57→23:10)
[2022-09-28] MEDS: APIXABAN 2.5 MG TABLET GT SCH ×2 (08:57→23:09)
[2022-09-28] MEDS: METOPROLOL TARTRATE 25 MG TABLET (FP) GT SCH ×2 (08:57→23:09)
[2022-09-28] MEDS: levETIRAcetam 500 MG/5 ML ORAL SOLUTION (UNIT-DOSE CUPS) GT SCH ×2 (11:30→23:09)
[2022-09-28] MEDS: carBAMazepine 200 MG/10 ML UNIT-DOSE CUP PO SCH ×2 (11:30→23:10)
[2022-09-28 12:37] LABS: BASO % 0.2 % (0-2.0); EOS % 0.7 % (0-4.5); HEMATOCRIT 39.4 % (35.4-49); HEMOGLOBIN 13.1 GM/dL (11.7-16.9); LYMPH % 31.1 % (8-40); MCH 28.5 pg (25.7-33.7); MCHC 33.4 g/dl (32.0-35.9); MEAN CELL VOLUME 85.4 fl (80-96); MEAN PLT VOLUME 7.7 fl (7.5-11.1); MONO % 8.9 % (3.8-10.2); NEUT % 59.1 % (42.8-82.8); PLATELET COUNT 220 10^3/uL (134-434); RBC 4.61 M/mm3 (4.00-5.60); RDW 16.1 % (11.9-15.9); WHITE BLOOD COUNT 4.3 K/mm3 (4.0-10.0)
[2022-09-28 13:10] LABS: ALBUMIN 3.2 g/dl (3.4-5.0); CALCIUM 8.9 mg/dL (8.5-10.1)
[2022-09-28 13:11] LABS: BLOOD UREA NITROGEN 4.5 mg/dL (7-18)
[2022-09-28 13:14] LABS: CREATININE 0.3 mg/dL (0.55-1.3)
[2022-09-28 13:15] LABS: BILIRUBIN,TOTAL 0.4 mg/dL (0.2-1); TOT PROT 7.9 g/dl (6.4-8.2)
[2022-09-28] MEDS ORDERED: TAZOB IVPB ONE (16:31)
[2022-09-28] MEDS ORDERED: PIPERACILLIN IVPB ONE (16:31)
[2022-09-29] MEDS: PIPERACILLIN/TAZOB 3.375 GM 3.375 GM in DEXTROSE 5%-WATER - 50 ML IVPB SCH ×2 (03:19→09:42)
[2022-09-29] MEDS: clonazePAM 2 MG TABLET GT SCH ×3 (07:08→22:54)
[2022-09-29] MEDS: BACLOFEN 10 MG TABLET (FP) GT SCH ×2 (07:08→11:34)
[2022-09-29 09:05] LABS: BASO % 0.3 % (0-2.0); EOS % 1.1 % (0-4.5); HEMOGLOBIN 11.8 GM/dL (11.7-16.9); LYMPH % 36.5 % (8-40); MCH 28.8 pg (25.7-33.7); MCHC 33.8 g/dl (32.0-35.9); MEAN CELL VOLUME 85.2 fl (80-96); MEAN PLT VOLUME 7.9 fl (7.5-11.1); MONO % 9.9 % (3.8-10.2); NEUT % 52.2 % (42.8-82.8); PLATELET COUNT 205 10^3/uL (134-434); RBC 4.11 M/mm3 (4.00-5.60); RDW 16.2 % (11.9-15.9); WHITE BLOOD COUNT 5.1 K/mm3 (4.0-10.0)
[2022-09-29] MEDS: ALBUTEROL SO4 2.5/IPRATROPIUM 0.5 INH SOL 3 ML VIAL.NEB. NEB PRN ×2 (09:18→11:52)
[2022-09-29 09:28] LABS: CALCIUM 8.5 mg/dL (8.5-10.1)
[2022-09-29 09:29] LABS: BLOOD UREA NITROGEN 3.4 mg/dL (7-18)
[2022-09-29 09:32] LABS: CREATININE 0.4 mg/dL (0.55-1.3)
[2022-09-29 09:33] LABS: BILIRUBIN,TOTAL 0.5 mg/dL (0.2-1)
[2022-09-29 09:34] LABS: TOT PROT 7.1 g/dl (6.4-8.2)
[2022-09-29] MEDS: SODIUM CHLORIDE 1,000 ML IV SCH (09:41)
[2022-09-29] MEDS: levETIRAcetam 500 MG/5 ML ORAL SOLUTION (UNIT-DOSE CUPS) GT SCH ×2 (09:42→22:55)
[2022-09-29] MEDS: APIXABAN 2.5 MG TABLET GT SCH ×2 (09:42→22:55)
[2022-09-29] MEDS: carBAMazepine 200 MG/10 ML UNIT-DOSE CUP PO SCH ×2 (09:42→22:56)
[2022-09-29] MEDS: METOPROLOL TARTRATE 25 MG TABLET (FP) GT SCH ×2 (09:43→22:54)
[2022-09-29] MEDS: NYSTATIN 100,000 UNIT/GM TOPICAL CREAM 15 GM TUBE TP SCH ×2 (09:55→22:55)
[2022-09-29] MEDS: ACETYLCYSTEINE 20% 200MG/ML 4 ML VIAL *FOR ORAL / INH USE ONLY NEB SCH ×3 (15:09→20:35)
[2022-09-29] MEDS: ALBUTEROL SO4 0.083% IH SOL 2.5 MG/3 ML VIAL.NEB. NEB PRN (15:57)
[2022-09-29] MEDS: CEFTAZIDIME/AVIBACTAM 2.5 GM in DEXTROSE 5%-WATER - 250 ML IVPB SCH (17:45)
[2022-09-29] MEDS: POLYETHYLENE GLYCOL (HEALTHYLAX) 3350 17 GM PACKET GT SCH (22:54)
[2022-09-30] MEDS: CEFTAZIDIME/AVIBACTAM 2.5 GM in DEXTROSE 5%-WATER - 250 ML IVPB SCH ×3 (01:26→17:49)
[2022-09-30] MEDS: BACLOFEN 10 MG TABLET (FP) GT SCH ×2 (05:34→14:15)
[2022-09-30] MEDS: clonazePAM 2 MG TABLET GT SCH ×3 (05:35→21:07)
[2022-09-30] MEDS: ACETYLCYSTEINE 20% 200MG/ML 4 ML VIAL *FOR ORAL / INH USE ONLY NEB SCH ×4 (08:00→20:50)
[2022-09-30] MEDS: ALBUTEROL SO4 0.083% IH SOL 2.5 MG/3 ML VIAL.NEB. NEB PRN ×3 (08:01→15:34)
[2022-09-30 08:59] LABS: HEMATOCRIT 39.5 % (35.4-49); HEMOGLOBIN 13.5 GM/dL (11.7-16.9); MCHC 34.2 g/dl (32.0-35.9); MEAN CELL VOLUME 84.8 fl (80-96); MEAN PLT VOLUME 7.8 fl (7.5-11.1); PLATELET COUNT 229 10^3/uL (134-434); RBC 4.66 M/mm3 (4.00-5.60); WHITE BLOOD COUNT 7.4 K/mm3 (4.0-10.0)
[2022-09-30 09:24] LABS: CHLORIDE 102 mmol/L (98-107); SODIUM 137 mmol/L (136-145)
[2022-09-30 09:28] LABS: ANION GAP 8 MMOL/L (8-16); CO2 27 mmol/L (21-32); GLUCOSE,RANDOM 100 mg/dL (74-106)
[2022-09-30 09:32] LABS: CREATININE 0.3 mg/dL (0.55-1.3)
[2022-09-30] MEDS: SODIUM CHLORIDE 1,000 ML IV SCH (10:24)
[2022-09-30] MEDS: POLYETHYLENE GLYCOL (HEALTHYLAX) 3350 17 GM PACKET GT SCH ×2 (10:26→21:07)
[2022-09-30] MEDS: METOPROLOL TARTRATE 25 MG TABLET (FP) GT SCH ×2 (10:27→21:09)
[2022-09-30] MEDS: SCOPOLAMINE HYDROBROMIDE 1 PATCH PATCH.TD72 TD SCH (10:27)
[2022-09-30] MEDS: APIXABAN 2.5 MG TABLET GT SCH ×2 (10:27→21:00)
[2022-09-30] MEDS: levETIRAcetam 500 MG/5 ML ORAL SOLUTION (UNIT-DOSE CUPS) GT SCH ×2 (10:28→21:00)
[2022-09-30] MEDS: carBAMazepine 200 MG/10 ML UNIT-DOSE CUP PO SCH ×2 (10:29→21:01)
[2022-09-30] MEDS: SODIUM CHLORIDE 1 GM TABLET PO SCH (10:33)
[2022-09-30] MEDS: NYSTATIN 100,000 UNIT/GM TOPICAL CREAM 15 GM TUBE TP SCH ×2 (10:34→21:08)
[2022-10-01] MEDS: CEFTAZIDIME/AVIBACTAM 2.5 GM in DEXTROSE 5%-WATER - 250 ML IVPB SCH ×3 (01:05→12:18)
[2022-10-01] MEDS: BACLOFEN 10 MG TABLET (FP) GT SCH ×2 (04:37→13:03)
[2022-10-01] MEDS: clonazePAM 2 MG TABLET GT SCH ×3 (05:49→22:50)
[2022-10-01] MEDS: ACETYLCYSTEINE 20% 200MG/ML 4 ML VIAL *FOR ORAL / INH USE ONLY NEB SCH ×2 (07:42→11:35)
[2022-10-01] MEDS: ALBUTEROL SO4 0.083% IH SOL 2.5 MG/3 ML VIAL.NEB. NEB PRN ×2 (07:42→11:35)
[2022-10-01 09:42] LABS: HEMATOCRIT 37.1 % (35.4-49); HEMOGLOBIN 12.9 GM/dL (11.7-16.9); MCH 29.1 pg (25.7-33.7); MCHC 34.7 g/dl (32.0-35.9); MEAN CELL VOLUME 83.6 fl (80-96); MEAN PLT VOLUME 7.7 fl (7.5-11.1); PLATELET COUNT 241 10^3/uL (134-434); RBC 4.44 M/mm3 (4.00-5.60); RDW 16.1 % (11.9-15.9); WHITE BLOOD COUNT 7.7 K/mm3 (4.0-10.0)
[2022-10-01 10:04] LABS: BLOOD UREA NITROGEN 5.7 mg/dL (7-18)
[2022-10-01 10:07] LABS: CREATININE 0.4 mg/dL (0.55-1.3)
[2022-10-01] MEDS: POLYETHYLENE GLYCOL (HEALTHYLAX) 3350 17 GM PACKET GT SCH ×2 (11:02→22:52)
[2022-10-01] MEDS: METOPROLOL TARTRATE 25 MG TABLET (FP) GT SCH ×2 (11:03→22:50)
[2022-10-01] MEDS: carBAMazepine 200 MG/10 ML UNIT-DOSE CUP PO SCH ×2 (11:03→22:51)
[2022-10-01] MEDS: levETIRAcetam 500 MG/5 ML ORAL SOLUTION (UNIT-DOSE CUPS) GT SCH ×2 (11:04→22:49)
[2022-10-01] MEDS: APIXABAN 2.5 MG TABLET GT SCH ×2 (11:04→22:49)
[2022-10-01] MEDS: ALBUTEROL SO4 2.5/IPRATROPIUM 0.5 INH SOL 3 ML VIAL.NEB. NEB PRN (11:35)
[2022-10-01] MEDS: SODIUM CHLORIDE 1 GM TABLET PO SCH (13:03)
[2022-10-01] MEDS: NYSTATIN 100,000 UNIT/GM TOPICAL CREAM 15 GM TUBE TP SCH ×2 (13:03→22:51)
[2022-10-01] MEDS ORDERED: POTASSIUM CHLORIDE ORAL LIQUID 20 MEQ/15 ML PO ONE (16:31)
[2022-10-01] MEDS ORDERED: FUROSEMIDE 20 MG TABLET (FP) GT ONE (16:31)
[2022-10-01] MEDS ORDERED: POTASSIUM CHLORIDE ORAL LIQUID 20 MEQ/15 ML GT ONE (16:45)
[2022-10-02] MEDS: clonazePAM 2 MG TABLET GT SCH ×3 (07:09→22:01)
[2022-10-02] MEDS: BACLOFEN 10 MG TABLET (FP) GT SCH ×2 (07:09→11:20)
[2022-10-02] MEDS: ALBUTEROL SO4 0.083% IH SOL 2.5 MG/3 ML VIAL.NEB. NEB PRN (08:46)
[2022-10-02 10:32] LABS: HEMOGLOBIN 13.2 GM/dL (11.7-16.9); MCH 28.8 pg (25.7-33.7); MCHC 33.8 g/dl (32.0-35.9); MEAN CELL VOLUME 85.2 fl (80-96); PLATELET COUNT 278 10^3/uL (134-434); RBC 4.58 M/mm3 (4.00-5.60); RDW 16.2 % (11.9-15.9); WHITE BLOOD COUNT 6.9 K/mm3 (4.0-10.0)
[2022-10-02 10:52] LABS: ALBUMIN 3.2 g/dl (3.4-5.0); BLOOD UREA NITROGEN 9.7 mg/dL (7-18); CALCIUM 9.1 mg/dL (8.5-10.1)
[2022-10-02 10:55] LABS: CREATININE 0.3 mg/dL (0.55-1.3)
[2022-10-02 10:57] LABS: TOT PROT 7.9 g/dl (6.4-8.2)
[2022-10-02 10:59] LABS: BILIRUBIN,TOTAL 0.5 mg/dL (0.2-1)
[2022-10-02] MEDS: carBAMazepine 200 MG/10 ML UNIT-DOSE CUP PO SCH ×2 (11:21→22:02)
[2022-10-02] MEDS: POLYETHYLENE GLYCOL (HEALTHYLAX) 3350 17 GM PACKET GT SCH ×2 (11:21→22:01)
[2022-10-02] MEDS: SODIUM CHLORIDE 1 GM TABLET PO SCH (11:23)
[2022-10-02] MEDS: APIXABAN 2.5 MG TABLET GT SCH ×2 (11:23→22:01)
[2022-10-02] MEDS: levETIRAcetam 500 MG/5 ML ORAL SOLUTION (UNIT-DOSE CUPS) GT SCH ×2 (11:24→22:02)
[2022-10-02] MEDS: DOXAZOSIN MESYLATE 2 MG TABLET PO SCH ×2 (11:26→14:08)
[2022-10-02] MEDS: METOPROLOL TARTRATE 25 MG TABLET (FP) GT SCH ×2 (11:26→22:01)
[2022-10-02] MEDS: NYSTATIN 100,000 UNIT/GM TOPICAL CREAM 15 GM TUBE TP SCH ×2 (11:28→22:03)
[2022-10-02] MEDS: ALBUTEROL SO4 2.5/IPRATROPIUM 0.5 INH SOL 3 ML VIAL.NEB. NEB PRN (15:39)
[2022-10-03] MEDS: BACLOFEN 10 MG TABLET (FP) GT SCH ×2 (05:43→11:56)
[2022-10-03] MEDS: clonazePAM 2 MG TABLET GT SCH ×3 (05:43→22:55)
[2022-10-03] MEDS: ALBUTEROL SO4 2.5/IPRATROPIUM 0.5 INH SOL 3 ML VIAL.NEB. NEB PRN ×2 (07:24→20:25)
[2022-10-03 08:48] LABS: HEMATOCRIT 36.8 % (35.4-49); HEMOGLOBIN 12.7 GM/dL (11.7-16.9); MCH 29.3 pg (25.7-33.7); MCHC 34.5 g/dl (32.0-35.9); MEAN CELL VOLUME 84.8 fl (80-96); MEAN PLT VOLUME 7.4 fl (7.5-11.1); PLATELET COUNT 266 10^3/uL (134-434); RBC 4.34 M/mm3 (4.00-5.60); RDW 16.1 % (11.9-15.9); WHITE BLOOD COUNT 6.5 K/mm3 (4.0-10.0)
[2022-10-03] MEDS: SCOPOLAMINE HYDROBROMIDE 1 PATCH PATCH.TD72 TD SCH (09:01)
[2022-10-03 09:36] LABS: CALCIUM 8.9 mg/dL (8.5-10.1)
[2022-10-03 09:40] LABS: CREATININE 0.3 mg/dL (0.55-1.3)
[2022-10-03] MEDS: METOPROLOL TARTRATE 25 MG TABLET (FP) GT SCH ×2 (10:37→22:55)
[2022-10-03] MEDS: POLYETHYLENE GLYCOL (HEALTHYLAX) 3350 17 GM PACKET GT SCH ×2 (10:37→22:55)
[2022-10-03] MEDS: APIXABAN 2.5 MG TABLET GT SCH ×2 (10:37→22:55)
[2022-10-03] MEDS: levETIRAcetam 500 MG/5 ML ORAL SOLUTION (UNIT-DOSE CUPS) GT SCH ×2 (10:38→22:55)
[2022-10-03] MEDS: carBAMazepine 200 MG/10 ML UNIT-DOSE CUP PO SCH ×2 (10:39→22:55)
[2022-10-03] MEDS: SODIUM CHLORIDE 1 GM TABLET PO SCH (10:39)
[2022-10-03] MEDS: NYSTATIN 100,000 UNIT/GM TOPICAL CREAM 15 GM TUBE TP SCH ×2 (10:44→22:55)
[2022-10-03] MEDS: DOXAZOSIN MESYLATE 2 MG TABLET PO SCH (11:58)
[2022-10-03 20:06] VITALS: BMI 21.5
[2022-10-04] MEDS: clonazePAM 2 MG TABLET GT SCH (05:40)
[2022-10-04] MEDS: BACLOFEN 10 MG TABLET (FP) GT SCH ×2 (05:40→12:18)
[2022-10-04 08:50] LABS: BASO % 0.4 % (0-2.0); EOS % 1.1 % (0-4.5); HEMOGLOBIN 12.5 GM/dL (11.7-16.9); LYMPH % 24.9 % (8-40); MCH 29.4 pg (25.7-33.7); MCHC 34.7 g/dl (32.0-35.9); MEAN CELL VOLUME 84.7 fl (80-96); MEAN PLT VOLUME 7.5 fl (7.5-11.1); MONO % 11.3 % (3.8-10.2); NEUT % 62.3 % (42.8-82.8); PLATELET COUNT 305 10^3/uL (134-434); RBC 4.25 M/mm3 (4.00-5.60); WHITE BLOOD COUNT 6.5 K/mm3 (4.0-10.0)
[2022-10-04 09:29] LABS: ALBUMIN 3.1 g/dl (3.4-5.0); BILIRUBIN,TOTAL 0.2 mg/dL (0.2-1); BLOOD UREA NITROGEN 11.2 mg/dL (7-18); CREATININE 0.3 mg/dL (0.55-1.3); TOT PROT 7.8 g/dl (6.4-8.2)
[2022-10-04] MEDS: levETIRAcetam 500 MG/5 ML ORAL SOLUTION (UNIT-DOSE CUPS) GT SCH ×2 (10:56→22:35)
[2022-10-04] MEDS: SODIUM CHLORIDE 1 GM TABLET PO SCH (10:56)
[2022-10-04] MEDS: DOXAZOSIN MESYLATE 2 MG TABLET PO SCH (10:56)
[2022-10-04] MEDS: APIXABAN 2.5 MG TABLET GT SCH ×2 (10:56→22:35)
[2022-10-04] MEDS: METOPROLOL TARTRATE 25 MG TABLET (FP) GT SCH ×2 (10:56→22:36)
[2022-10-04] MEDS: POLYETHYLENE GLYCOL (HEALTHYLAX) 3350 17 GM PACKET GT SCH ×2 (10:57→22:37)
[2022-10-04] MEDS: carBAMazepine 200 MG/10 ML UNIT-DOSE CUP PO SCH ×2 (10:57→22:36)
[2022-10-04] MEDS: NYSTATIN 100,000 UNIT/GM TOPICAL CREAM 15 GM TUBE TP SCH ×2 (13:36→22:37)
[2022-10-04] MEDS: clonazePAM 0.5 MG TABLET GT SCH ×2 (15:53→22:35)
[2022-10-05] MEDS: clonazePAM 0.5 MG TABLET GT SCH ×3 (05:01→23:28)
[2022-10-05] MEDS: BACLOFEN 10 MG TABLET (FP) GT SCH ×2 (05:01→12:13)
[2022-10-05] MEDS: POLYETHYLENE GLYCOL (HEALTHYLAX) 3350 17 GM PACKET GT SCH ×2 (10:27→23:30)
[2022-10-05] MEDS: APIXABAN 2.5 MG TABLET GT SCH ×2 (10:27→23:28)
[2022-10-05] MEDS: METOPROLOL TARTRATE 25 MG TABLET (FP) GT SCH ×2 (10:27→23:29)
[2022-10-05] MEDS: carBAMazepine 200 MG/10 ML UNIT-DOSE CUP PO SCH ×2 (10:28→23:29)
[2022-10-05] MEDS: SODIUM CHLORIDE 1 GM TABLET PO SCH (10:29)
[2022-10-05] MEDS: levETIRAcetam 500 MG/5 ML ORAL SOLUTION (UNIT-DOSE CUPS) GT SCH ×2 (10:29→23:30)
[2022-10-05] MEDS: DOXAZOSIN MESYLATE 2 MG TABLET PO SCH (10:29)
[2022-10-05] MEDS: NYSTATIN 100,000 UNIT/GM TOPICAL CREAM 15 GM TUBE TP SCH ×2 (10:43→23:30)
[2022-10-05] MEDS ORDERED: DOXAZOSIN MESYLATE 2 MG TABLET PO ONE (12:30)
[2022-10-05] MEDS: ALBUTEROL SO4 2.5/IPRATROPIUM 0.5 INH SOL 3 ML VIAL.NEB. NEB PRN (20:36)
[2022-10-06] MEDS: clonazePAM 0.5 MG TABLET GT SCH ×3 (05:28→23:30)
[2022-10-06] MEDS: BACLOFEN 10 MG TABLET (FP) GT SCH ×2 (05:28→11:38)
[2022-10-06] MEDS: ALBUTEROL SO4 2.5/IPRATROPIUM 0.5 INH SOL 3 ML VIAL.NEB. NEB PRN (08:00)
[2022-10-06] MEDS: APIXABAN 2.5 MG TABLET GT SCH ×2 (11:34→23:30)
[2022-10-06] MEDS: POLYETHYLENE GLYCOL (HEALTHYLAX) 3350 17 GM PACKET GT SCH (11:37)
[2022-10-06] MEDS: levETIRAcetam 500 MG/5 ML ORAL SOLUTION (UNIT-DOSE CUPS) GT SCH ×2 (11:37→23:30)
[2022-10-06] MEDS: carBAMazepine 200 MG/10 ML UNIT-DOSE CUP PO SCH ×2 (11:38→23:30)
[2022-10-06] MEDS: SCOPOLAMINE HYDROBROMIDE 1 PATCH PATCH.TD72 TD SCH (11:39)
[2022-10-06] MEDS: DOXAZOSIN MESYLATE 4 MG TABLET PO SCH (11:39)
[2022-10-06] MEDS: METOPROLOL TARTRATE 25 MG TABLET (FP) GT SCH ×2 (11:39→23:30)
[2022-10-06] MEDS: NYSTATIN 100,000 UNIT/GM TOPICAL CREAM 15 GM TUBE TP SCH ×2 (11:40→23:31)
[2022-10-06] MEDS: SODIUM CHLORIDE 1 GM TABLET GT SCH (11:40)
[2022-10-06] MEDS ORDERED: POLYETHYLENE GLYCOL (HEALTHYLAX) 3350 17 GM PACKET GT PRN (15:41)
[2022-10-07] MEDS: clonazePAM 0.5 MG TABLET GT SCH ×2 (06:08→14:19)
[2022-10-07] MEDS: BACLOFEN 10 MG TABLET (FP) GT SCH ×2 (06:08→11:55)
[2022-10-07] MEDS: ALBUTEROL SO4 2.5/IPRATROPIUM 0.5 INH SOL 3 ML VIAL.NEB. NEB SCH ×3 (10:05→15:04)
[2022-10-07] MEDS: carBAMazepine 200 MG/10 ML UNIT-DOSE CUP PO SCH (10:31)
[2022-10-07] MEDS: levETIRAcetam 500 MG/5 ML ORAL SOLUTION (UNIT-DOSE CUPS) GT SCH (10:32)
[2022-10-07] MEDS: APIXABAN 2.5 MG TABLET GT SCH (10:33)
[2022-10-07] MEDS: METOPROLOL TARTRATE 25 MG TABLET (FP) GT SCH (10:33)
[2022-10-07] MEDS: SODIUM CHLORIDE 1 GM TABLET GT SCH (10:35)
[2022-10-07] MEDS: NYSTATIN 100,000 UNIT/GM TOPICAL CREAM 15 GM TUBE TP SCH (11:15)
[2022-10-07] MEDS: DOXAZOSIN MESYLATE 4 MG TABLET PO SCH (11:18)
[2022-10-07] MEDS ORDERED: SILVER SULFADIAZINE 1% TOP CREAM 50 GM JAR TP SCH (11:30)
[2022-10-07 16:55] VITALS: BP 108/67; PULSE 123; RESP 20; TEMP 98.5
== END 2022-10-07 17:40 | DRG 133 ==
LOC: JER 05:06 → JERBED 07:53 → J7W 09-28 17:32
PROVIDERS: ADMIT Internal Medicine; ATTEND Internal Medicine
DX: J96.01 Acute respiratory failure with hypoxia (principal); J69.0 Pneumonitis due to inhalation of food and vomit; R53.2 Functional quadriplegia; G40.909 Epilepsy, unspecified, not intractable, without status epilepticus; J45.909 Unspecified asthma, uncomplicated; F73 Profound intellectual disabilities; M41.9 Scoliosis, unspecified; E87.1 Hypo-osmolality and hyponatremia; Z86.718 Personal history of other venous thrombosis and embolism; R50.9 Fever, unspecified; Q02 Microcephaly; G80.0 Spastic quadriplegic cerebral palsy; H47.619 Cortical blindness, unspecified side of brain
CPT/HCPCS: 0241U-QW; 36415; 71045-TC-FY; 80048; 80053; 81003; 82550; 82553; 82803; 82962; 83605; 84439; 84443; 84484; 85025; 85027; 85610; 85730; 87040; 87086; 93005; 93010; 94640; 99285-25; C9803-CS; J0475; U0003; U0005

== ENCOUNTER 2022-10-25 05:59 | Inpatient (IN) | payer OTHER ==
[2022-10-25 06:35] VITALS: BMI 19.5
[2022-10-25] MEDS ORDERED: ACETAMINOPHEN 1000 MG/100 ML BAG IVPB ONE (07:02)
[2022-10-25 07:12] LABS: VENOUS O2 SATURATION 42.9 % (70-80); VENOUS PCO2 54.7 mmHg (38-52); VENOUS PH 7.274 (7.310-7.410)
[2022-10-25 07:21] LABS: INR 1.14 (0.83-1.09); PROTHROMBIN TIME (PATIENT) 13.2 SEC (9.7-13.0)
[2022-10-25 07:24] LABS: ACTIVATED PTT 29.1 SECONDS (25.2-36.5)
[2022-10-25 07:28] LABS: CALCIUM 9.1 mg/dL (8.5-10.1)
[2022-10-25 07:29] LABS: ALBUMIN 3.7 g/dl (3.4-5.0); BLOOD UREA NITROGEN 9.7 mg/dL (7-18)
[2022-10-25 07:32] LABS: CREATININE 0.5 mg/dL (0.55-1.3)
[2022-10-25 07:33] LABS: BILIRUBIN,TOTAL 0.3 mg/dL (0.2-1); TOT PROT 8.9 g/dl (6.4-8.2)
[2022-10-25] MEDS ORDERED: ACETAMINOPHEN INJECTION 100 ML IVPB ONE (07:47)
[2022-10-25 07:59] LABS: LACTIC ACID 3.9 mmol/L (0.4-2.0)
[2022-10-25 08:28] LABS: BASO % 0.1 % (0-2.0); HEMATOCRIT 41.7 % (35.4-49); HEMOGLOBIN 14.2 GM/dL (11.7-16.9); LYMPH % 3.3 % (8-40); MCH 29.3 pg (25.7-33.7); MEAN CELL VOLUME 86.4 fl (80-96); MEAN PLT VOLUME 9.3 fl (7.5-11.1); MONO % 7.2 % (3.8-10.2); NEUT % 89.4 % (42.8-82.8); PLATELET COUNT 322 10^3/uL (134-434); RBC 4.83 M/mm3 (4.00-5.60); RDW 15.9 % (11.9-15.9); WHITE BLOOD COUNT 17.3 K/mm3 (4.0-10.0)
[2022-10-25] MEDS ORDERED: SODIUM CHLORIDE 0.9% 500 ML INFUS.BAG IV ONE (08:33)
[2022-10-25] MEDS ORDERED: VANCOMYCIN 1 GM in D5W (PRE-DOCKED) 1,000 MG/250 ML IVPB ONE (08:46)
[2022-10-25 09:15] LABS: PH,URINE 7.5 (5.0-8.0); URINE APPEARANCE CLEAR; URINE BILIRUBIN NEGATIVE (NEGATIVE); URINE COLOR YELLOW; URINE GLUCOSE (UA) NEGATIVE (NEGATIVE); URINE KETONE NEGATIVE (NEGATIVE); URINE LEUK ESTERASE NEGATIVE (NEGATIVE); URINE NITRITE NEGATIVE (NEGATIVE); URINE PROTEIN NEGATIVE (NEGATIVE); URINE UROBILINOGEN 0.2 mg/dL (0.2-1.0)
[2022-10-25] MEDS ORDERED: VANCOMYCIN/WATER FOR INJ (PEG) 1,000 MG/200 ML BAG IVPB ONE (09:35)
[2022-10-25] MEDS ORDERED: ACETAMINOPHEN 325 MG TABLET (FP) PO PRN (13:13)
[2022-10-25] MEDS ORDERED: LACTATED RINGERS SOLUTION 1,000 ML IV SCH (13:15)
[2022-10-25] MEDS ORDERED: ALBUTEROL SO4 2.5/IPRATROPIUM 0.5 INH SOL 3 ML VIAL.NEB. NEB PRN (15:03)
[2022-10-25] MEDS: SCOPOLAMINE HYDROBROMIDE 1 PATCH PATCH.TD72 TD SCH (17:50)
[2022-10-25] MEDS: BUDESONIDE 0.5 MG/2 ML INH SUSP VIAL NEB SCH (20:13)
[2022-10-25] MEDS: levETIRAcetam 500 MG/5 ML ORAL SOLUTION (UNIT-DOSE CUPS) GT SCH (21:23)
[2022-10-25] MEDS: METOPROLOL TARTRATE 25 MG TABLET (FP) GT SCH (21:23)
[2022-10-25] MEDS: clonazePAM 0.5 MG TABLET GT SCH (21:23)
[2022-10-25] MEDS: APIXABAN 5 MG TABLET GT SCH (21:23)
[2022-10-25] MEDS: carBAMazepine 200 MG/10 ML UNIT-DOSE CUP GT SCH (21:23)
[2022-10-25] MEDS: BACLOFEN 10 MG TABLET (FP) PO SCH (21:23)
[2022-10-25] MEDS: VANCOMYCIN/WATER FOR INJ (PEG) 1,000 MG/200 ML BAG IVPB SCH (23:41)
[2022-10-26] MEDS: clonazePAM 0.5 MG TABLET GT SCH ×3 (05:07→21:03)
[2022-10-26] MEDS: BACLOFEN 10 MG TABLET (FP) PO SCH ×3 (05:07→21:03)
[2022-10-26] MEDS ORDERED: DEXTROSE 50%-WATER 25 GM/50 ML DISP.SYRIN IVPUSH PRN (06:36)
[2022-10-26 09:01] LABS: INR 1.38 (0.83-1.09)
[2022-10-26 09:04] LABS: ACTIVATED PTT 44.8 SECONDS (25.2-36.5)
[2022-10-26 09:05] LABS: BASO % 0.5 % (0-2.0); EOS % 0.3 % (0-4.5); HEMATOCRIT 37.2 % (35.4-49); HEMOGLOBIN 12.6 GM/dL (11.7-16.9); LYMPH % 30.5 % (8-40); MCH 29.1 pg (25.7-33.7); MCHC 33.9 g/dl (32.0-35.9); MEAN PLT VOLUME 8.7 fl (7.5-11.1); MONO % 9.8 % (3.8-10.2); NEUT % 58.9 % (42.8-82.8); PLATELET COUNT 238 10^3/uL (134-434); RBC 4.33 M/mm3 (4.00-5.60); RDW 15.6 % (11.9-15.9); WHITE BLOOD COUNT 5.4 K/mm3 (4.0-10.0)
[2022-10-26 09:16] LABS: CALCIUM 8.9 mg/dL (8.5-10.1); MAGNESIUM 1.9 mg/dL (1.8-2.4)
[2022-10-26 09:17] LABS: ALBUMIN 3.3 g/dl (3.4-5.0); BLOOD UREA NITROGEN 4.9 mg/dL (7-18)
[2022-10-26 09:19] LABS: CREATININE 0.4 mg/dL (0.55-1.3)
[2022-10-26 09:20] LABS: PHOSPHOROUS 2.5 mg/dL (2.5-4.9)
[2022-10-26 09:21] LABS: TOT PROT 7.9 g/dl (6.4-8.2)
[2022-10-26 09:22] LABS: BILIRUBIN,TOTAL 0.3 mg/dL (0.2-1)
[2022-10-26] MEDS: BUDESONIDE 0.5 MG/2 ML INH SUSP VIAL NEB SCH ×2 (09:46→19:59)
[2022-10-26] MEDS: levETIRAcetam 500 MG/5 ML ORAL SOLUTION (UNIT-DOSE CUPS) GT SCH (09:48)
[2022-10-26] MEDS: TAMSULOSIN HCL 0.4 MG CAP PO SCH ×2 (09:49→12:49)
[2022-10-26] MEDS: METOPROLOL TARTRATE 25 MG TABLET (FP) GT SCH ×3 (09:49→21:03)
[2022-10-26] MEDS: amLODIPine BESYLATE 2.5 MG TABLET (FP) GT SCH ×2 (09:50→12:50)
[2022-10-26] MEDS: APIXABAN 5 MG TABLET GT SCH ×2 (09:50→12:49)
[2022-10-26] MEDS: PANTOPRAZOLE 40 MG TABLET PO SCH ×2 (09:50→12:50)
[2022-10-26] MEDS ORDERED: ENOXAPARIN NA (PORCINE) 40 MG/0.4 ML DISP.SYRIN SQ SCH (10:00)
[2022-10-26] MEDS ORDERED: CEFEPIME 1 GM in DEXTROSE 5%-WATER 100 ML IVPB SCH (10:00)
[2022-10-26] MEDS ORDERED: CEFEPIME HCL/D5W 1 GM/50 ML BAG IVPB SCH (10:00)
[2022-10-26] MEDS: carBAMazepine 200 MG/10 ML UNIT-DOSE CUP GT SCH ×2 (12:51→21:03)
[2022-10-26] MEDS: levETIRAcetam 500 MG/5 ML INJECTION VIAL IVPB SCH ×2 (15:01→21:03)
[2022-10-26] MEDS: FLUTICASONE PROP 0.05% 16 GM NASAL SPRAY NS SCH (15:02)
[2022-10-26] MEDS: PIPERACILLIN/TAZOB 3.375 GM 3.375 GM in DEXTROSE 5%-WATER - 50 ML IVPB SCH (18:57)
[2022-10-26] MEDS: DEXTROSE 5%-0.45% SALINE 1,000 ML IV SCH (19:01)
[2022-10-26] MEDS: ENOXAPARIN NA (PORCINE) 60 MG/0.6 ML DISP.SYRIN SQ SCH (19:02)
[2022-10-27] MEDS: PIPERACILLIN/TAZOB 3.375 GM 3.375 GM in DEXTROSE 5%-WATER - 50 ML IVPB SCH ×3 (02:29→17:25)
[2022-10-27] MEDS: clonazePAM 0.5 MG TABLET GT SCH ×3 (05:17→22:13)
[2022-10-27] MEDS: BACLOFEN 10 MG TABLET (FP) PO SCH (05:17)
[2022-10-27] MEDS: ENOXAPARIN NA (PORCINE) 60 MG/0.6 ML DISP.SYRIN SQ SCH ×2 (06:34→17:26)
[2022-10-27] MEDS: BUDESONIDE 0.5 MG/2 ML INH SUSP VIAL NEB SCH ×2 (07:18→20:29)
[2022-10-27] MEDS: VANCOMYCIN 1 GM in D5W (PRE-DOCKED) 1,000 MG/250 ML IVPB SCH (07:23)
[2022-10-27] MEDS: levETIRAcetam 500 MG/5 ML ORAL SOLUTION (UNIT-DOSE CUPS) GT SCH (07:24)
[2022-10-27] MEDS: VANCOMYCIN/WATER FOR INJ (PEG) 1,000 MG/200 ML BAG IVPB SCH (07:24)
[2022-10-27] MEDS: TAMSULOSIN HCL 0.4 MG CAP PO SCH (08:58)
[2022-10-27 09:04] LABS: HEMATOCRIT 37.1 % (35.4-49); HEMOGLOBIN 12.4 GM/dL (11.7-16.9); MCH 27.9 pg (25.7-33.7); MCHC 33.5 g/dl (32.0-35.9); MEAN CELL VOLUME 83.2 fl (80-96); MEAN PLT VOLUME 8.5 fl (7.5-11.1); PLATELET COUNT 215 10^3/uL (134-434); RBC 4.45 M/mm3 (4.00-5.60); RDW 15.5 % (11.9-15.9); WHITE BLOOD COUNT 8.7 K/mm3 (4.0-10.0)
[2022-10-27 09:11] LABS: CALCIUM 8.8 mg/dL (8.5-10.1)
[2022-10-27 09:12] LABS: ALBUMIN 3.4 g/dl (3.4-5.0); BLOOD UREA NITROGEN 6.1 mg/dL (7-18)
[2022-10-27] MEDS: levETIRAcetam 500 MG/5 ML INJECTION VIAL IVPB SCH ×2 (09:13→22:12)
[2022-10-27 09:15] LABS: PHOSPHOROUS 3.5 mg/dL (2.5-4.9)
[2022-10-27 09:16] LABS: BILIRUBIN,TOTAL 0.4 mg/dL (0.2-1); CREATININE 0.4 mg/dL (0.55-1.3)
[2022-10-27] MEDS: METOPROLOL TARTRATE 25 MG TABLET (FP) GT SCH ×2 (10:35→22:13)
[2022-10-27] MEDS: amLODIPine BESYLATE 2.5 MG TABLET (FP) GT SCH (10:35)
[2022-10-27] MEDS: PANTOPRAZOLE 40 MG TABLET PO SCH (10:35)
[2022-10-27] MEDS: carBAMazepine 200 MG/10 ML UNIT-DOSE CUP GT SCH ×2 (10:35→22:12)
[2022-10-27] MEDS: FLUTICASONE PROP 0.05% 16 GM NASAL SPRAY NS SCH (11:46)
[2022-10-27] MEDS ORDERED: TUBE FEED DECLOGGING SOLUTION 12,000 UNITS GT SCH (13:30)
[2022-10-27] MEDS: BACLOFEN 10 MG TABLET (FP) GT SCH ×2 (15:26→22:13)
[2022-10-28] MEDS: PIPERACILLIN/TAZOB 3.375 GM 3.375 GM in DEXTROSE 5%-WATER - 50 ML IVPB SCH ×3 (01:53→18:47)
[2022-10-28] MEDS: clonazePAM 0.5 MG TABLET GT SCH ×3 (05:14→22:25)
[2022-10-28] MEDS: BACLOFEN 10 MG TABLET (FP) GT SCH ×3 (05:14→22:27)
[2022-10-28] MEDS: ENOXAPARIN NA (PORCINE) 60 MG/0.6 ML DISP.SYRIN SQ SCH ×2 (05:29→18:45)
[2022-10-28] MEDS: BUDESONIDE 0.5 MG/2 ML INH SUSP VIAL NEB SCH ×2 (07:18→20:20)
[2022-10-28] MEDS: TAMSULOSIN HCL 0.4 MG CAP PO SCH (08:52)
[2022-10-28] MEDS: PANTOPRAZOLE SODIUM 40 MG VIAL IVPUSH SCH (09:56)
[2022-10-28] MEDS: METOPROLOL TARTRATE 25 MG TABLET (FP) GT SCH ×2 (09:56→22:27)
[2022-10-28] MEDS: amLODIPine BESYLATE 2.5 MG TABLET (FP) GT SCH (09:56)
[2022-10-28] MEDS: levETIRAcetam 500 MG/5 ML INJECTION VIAL IVPB SCH ×2 (09:57→22:25)
[2022-10-28] MEDS: MULTIVIT-MINERALS ORAL LIQUID GT SCH (09:57)
[2022-10-28] MEDS: ASCORBIC ACID 500 MG/5 ML GT SCH (09:58)
[2022-10-28] MEDS: carBAMazepine 200 MG/10 ML UNIT-DOSE CUP GT SCH ×2 (09:59→22:27)
[2022-10-28 10:11] LABS: HEMOGLOBIN 11.5 GM/dL (11.7-16.9); MCH 29.1 pg (25.7-33.7); MCHC 33.9 g/dl (32.0-35.9); MEAN CELL VOLUME 85.7 fl (80-96); MEAN PLT VOLUME 9.1 fl (7.5-11.1); PLATELET COUNT 198 10^3/uL (134-434); RBC 3.96 M/mm3 (4.00-5.60); RDW 15.7 % (11.9-15.9); WHITE BLOOD COUNT 7.9 K/mm3 (4.0-10.0)
[2022-10-28 10:33] LABS: CHLORIDE 106 mmol/L (98-107); SODIUM 137 mmol/L (136-145)
[2022-10-28 10:36] LABS: CALCIUM 8.1 mg/dL (8.5-10.1); CO2 24 mmol/L (21-32); GLUCOSE,RANDOM 108 mg/dL (74-106)
[2022-10-28 10:37] LABS: BLOOD UREA NITROGEN 7.5 mg/dL (7-18)
[2022-10-28 10:40] LABS: CREATININE 0.4 mg/dL (0.55-1.3); SGOT/AST 24 U/L (15-37); SGPT/ALT 40 U/L (13-61)
[2022-10-28 10:41] LABS: BILIRUBIN,TOTAL 0.3 mg/dL (0.2-1); TOT PROT 7.1 g/dl (6.4-8.2)
[2022-10-28 10:43] LABS: ALK PHOS 109 U/L (45-117)
[2022-10-28 10:44] LABS: ANION GAP 7 MMOL/L (8-16)
[2022-10-28] MEDS ORDERED: POTASSIUM CHLORIDE ORAL LIQUID 20 MEQ/15 ML GT ONE (11:10)
[2022-10-28] MEDS: FLUTICASONE PROP 0.05% 16 GM NASAL SPRAY NS SCH (11:28)
[2022-10-28] MEDS: SCOPOLAMINE HYDROBROMIDE 1 PATCH PATCH.TD72 TD SCH (14:42)
[2022-10-28] MEDS ORDERED: ENOXAPARIN NA (PORCINE) 60 MG/0.6 ML DISP.SYRIN SQ SCH (19:15)
[2022-10-28 19:41] LABS: CALCIUM 8.3 mg/dL (8.5-10.1)
[2022-10-28 19:45] LABS: CREATININE 0.3 mg/dL (0.55-1.3)
[2022-10-29] MEDS: DEXTROSE 5%-0.45% SALINE 1,000 ML IV SCH ×2 (02:16→02:22)
[2022-10-29] MEDS: PIPERACILLIN/TAZOB 3.375 GM 3.375 GM in DEXTROSE 5%-WATER - 50 ML IVPB SCH ×3 (02:22→17:53)
[2022-10-29] MEDS: BACLOFEN 10 MG TABLET (FP) GT SCH ×3 (06:02→22:10)
[2022-10-29] MEDS: clonazePAM 0.5 MG TABLET GT SCH ×3 (06:03→22:09)
[2022-10-29] MEDS: ENOXAPARIN NA (PORCINE) 60 MG/0.6 ML DISP.SYRIN SQ SCH (06:03)
[2022-10-29] MEDS ORDERED: POTASSIUM CHLORIDE ORAL LIQUID 20 MEQ/15 ML GT ONE ×2 (07:06→10:00)
[2022-10-29] MEDS: BUDESONIDE 0.5 MG/2 ML INH SUSP VIAL NEB SCH ×2 (07:27→20:00)
[2022-10-29 08:45] LABS: HEMATOCRIT 33.9 % (35.4-49); HEMOGLOBIN 11.3 GM/dL (11.7-16.9); MCH 28.7 pg (25.7-33.7); MCHC 33.4 g/dl (32.0-35.9); MEAN CELL VOLUME 85.8 fl (80-96); MEAN PLT VOLUME 8.6 fl (7.5-11.1); PLATELET COUNT 168 10^3/uL (134-434); RBC 3.96 M/mm3 (4.00-5.60); RDW 15.7 % (11.9-15.9); WHITE BLOOD COUNT 5.5 K/mm3 (4.0-10.0)
[2022-10-29] MEDS: TAMSULOSIN HCL 0.4 MG CAP PO SCH (08:54)
[2022-10-29 09:03] LABS: CALCIUM 8.1 mg/dL (8.5-10.1)
[2022-10-29 09:04] LABS: ALBUMIN 2.8 g/dl (3.4-5.0); BLOOD UREA NITROGEN 3.4 mg/dL (7-18); MAGNESIUM 1.9 mg/dL (1.8-2.4)
[2022-10-29 09:07] LABS: CREATININE 0.3 mg/dL (0.55-1.3); PHOSPHOROUS 3.3 mg/dL (2.5-4.9)
[2022-10-29 09:08] LABS: BILIRUBIN,TOTAL 0.4 mg/dL (0.2-1)
[2022-10-29 09:09] LABS: TOT PROT 6.9 g/dl (6.4-8.2)
[2022-10-29] MEDS: levETIRAcetam 500 MG/5 ML INJECTION VIAL IVPB SCH ×2 (09:32→22:09)
[2022-10-29] MEDS: MULTIVIT-MINERALS ORAL LIQUID GT SCH (09:37)
[2022-10-29] MEDS: carBAMazepine 200 MG/10 ML UNIT-DOSE CUP GT SCH ×2 (09:40→22:10)
[2022-10-29] MEDS: ASCORBIC ACID 500 MG/5 ML GT SCH (09:41)
[2022-10-29] MEDS: METOPROLOL TARTRATE 25 MG TABLET (FP) GT SCH ×2 (09:42→22:10)
[2022-10-29] MEDS: amLODIPine BESYLATE 2.5 MG TABLET (FP) GT SCH (09:43)
[2022-10-29] MEDS: FLUTICASONE PROP 0.05% 16 GM NASAL SPRAY NS SCH (09:43)
[2022-10-29] MEDS: PANTOPRAZOLE SODIUM 40 MG VIAL IVPUSH SCH (09:50)
[2022-10-29] MEDS ORDERED: PIPERACILLIN/TAZOBACTAM 3.375 GM VIAL IVPB ONE (17:41)
[2022-10-29] MEDS ORDERED: APIXABAN 2.5 MG TABLET PO SCH (22:00)
[2022-10-29] MEDS: APIXABAN 2.5 MG TABLET GT SCH (22:08)
[2022-10-30] MEDS: PIPERACILLIN/TAZOB 3.375 GM 3.375 GM in DEXTROSE 5%-WATER - 50 ML IVPB SCH ×2 (02:42→09:21)
[2022-10-30 05:24] VITALS: RESP 20
[2022-10-30] MEDS: clonazePAM 0.5 MG TABLET GT SCH (06:11)
[2022-10-30] MEDS: BACLOFEN 10 MG TABLET (FP) GT SCH (06:11)
[2022-10-30] MEDS: BUDESONIDE 0.5 MG/2 ML INH SUSP VIAL NEB SCH (08:08)
[2022-10-30 08:14] LABS: BASO % 0.3 % (0-2.0); EOS % 2.4 % (0-4.5); HEMOGLOBIN 11.3 GM/dL (11.7-16.9); LYMPH % 31.8 % (8-40); MCH 28.7 pg (25.7-33.7); MCHC 33.1 g/dl (32.0-35.9); MEAN CELL VOLUME 86.6 fl (80-96); MEAN PLT VOLUME 7.9 fl (7.5-11.1); NEUT % 52.5 % (42.8-82.8); PLATELET COUNT 166 10^3/uL (134-434); RBC 3.93 M/mm3 (4.00-5.60); RDW 15.6 % (11.9-15.9); WHITE BLOOD COUNT 6.1 K/mm3 (4.0-10.0)
[2022-10-30 08:31] LABS: CALCIUM 8.3 mg/dL (8.5-10.1)
[2022-10-30 08:32] LABS: ALBUMIN 2.8 g/dl (3.4-5.0); BLOOD UREA NITROGEN 6.8 mg/dL (7-18)
[2022-10-30 08:35] LABS: CREATININE 0.3 mg/dL (0.55-1.3); PHOSPHOROUS 3.6 mg/dL (2.5-4.9)
[2022-10-30 08:36] LABS: BILIRUBIN,TOTAL 0.6 mg/dL (0.2-1); TOT PROT 6.9 g/dl (6.4-8.2)
[2022-10-30] MEDS: PANTOPRAZOLE SODIUM 40 MG VIAL IVPUSH SCH (09:20)
[2022-10-30] MEDS: TAMSULOSIN HCL 0.4 MG CAP PO SCH (09:21)
[2022-10-30] MEDS: levETIRAcetam 500 MG/5 ML INJECTION VIAL IVPB SCH (09:21)
[2022-10-30] MEDS: amLODIPine BESYLATE 2.5 MG TABLET (FP) GT SCH (09:21)
[2022-10-30] MEDS: APIXABAN 2.5 MG TABLET GT SCH (09:21)
[2022-10-30] MEDS: METOPROLOL TARTRATE 25 MG TABLET (FP) GT SCH (09:21)
[2022-10-30] MEDS: MULTIVIT-MINERALS ORAL LIQUID GT SCH (09:22)
[2022-10-30] MEDS: FLUTICASONE PROP 0.05% 16 GM NASAL SPRAY NS SCH (09:23)
[2022-10-30] MEDS: ASCORBIC ACID 500 MG/5 ML GT SCH (10:44)
[2022-10-30] MEDS: carBAMazepine 200 MG/10 ML UNIT-DOSE CUP GT SCH (10:44)
[2022-10-30 11:20] VITALS: BP 131/69; PULSE 72; TEMP 97.9
== END 2022-10-30 13:33 | DRG 720 ==
LOC: JER 05:59 → JERBED 07:05 → J6S 15:33
PROVIDERS: ADMIT Internal Medicine; ATTEND Internal Medicine
PROC: 0D20XUZ Change Feeding Device in Upper Intestinal Tract, External Approach (ICD-10-PCS; principal; 2022-10-27)
DX: A41.89 Other specified sepsis (principal); G80.9 Cerebral palsy, unspecified; Q02 Microcephaly; F72 Severe intellectual disabilities; K94.23 Gastrostomy malfunction; J69.0 Pneumonitis due to inhalation of food and vomit; J45.909 Unspecified asthma, uncomplicated; M41.9 Scoliosis, unspecified; R13.10 Dysphagia, unspecified; H47.619 Cortical blindness, unspecified side of brain; N44.00 Torsion of testis, unspecified; E87.20 Acidosis, unspecified; G40.909 Epilepsy, unspecified, not intractable, without status epilepticus; L89.152 Pressure ulcer of sacral region, stage 2; D72.829 Elevated white blood cell count, unspecified; E87.6 Hypokalemia; I95.9 Hypotension, unspecified; K59.00 Constipation, unspecified; Z86.718 Personal history of other venous thrombosis and embolism; Z74.01 Bed confinement status; Z79.01 Long term (current) use of anticoagulants
CPT/HCPCS: 0241U-QW; 36415; 71045-TC-FY; 74018-TC-FY; 74176-TC; 80048; 80053; 80156; 80177; 81003; 82150; 82553; 82803; 82962; 83605; 83690; 83735; 84100; 84484; 85025; 85027; 85610; 85730; 86850; 86900; 86901; 87040; 87086; 94640; 99285-25; C9803-CS; J0475; U0003; U0005

== ENCOUNTER 2022-11-24 12:49 | Inpatient (IN) | payer OTHER ==
[2022-11-24] MEDS ORDERED: MAGNESIUM SULF 50% (8.12 MEQ/2 ML-1 GM VIAL) IVPB ONE (13:02)
[2022-11-24] MEDS ORDERED: ALBUTEROL SO4 2.5/IPRATROPIUM 0.5 INH SOL 3 ML VIAL.NEB. NEB ONE (13:06)
[2022-11-24] MEDS ORDERED: DEXAMETHASONE SOD PHOSPHATE 10 MG/1 ML VIAL ONE (13:06)
[2022-11-24] MEDS ORDERED: EPINEPHrine/PF 1 MG/1 ML (1:1,000) AMPULE ONE (13:07)
[2022-11-24] MEDS: ALBUTEROL SO4 0.083% IH SOL 2.5 MG/3 ML VIAL.NEB. NEB SCH ×4 (13:30→14:15)
[2022-11-24] MEDS ORDERED: ALBUTEROL SO4 0.083% IH SOL 2.5 MG/3 ML VIAL.NEB. NEB ONE ×3 (13:43→19:18)
[2022-11-24 13:58] LABS: VENOUS BASE EXCESS -1.8 mmol/L (-2-2); VENOUS PCO2 57.1 mmHg (38-52); VENOUS PH 7.276 (7.310-7.410)
[2022-11-24 14:05] LABS: BASO % 0.2 % (0-2.0); EOS % 0.2 % (0-4.5); HEMATOCRIT 37.9 % (35.4-49); HEMOGLOBIN 12.8 GM/dL (11.7-16.9); MCH 28.6 pg (25.7-33.7); MCHC 33.8 g/dl (32.0-35.9); MEAN CELL VOLUME 84.7 fl (80-96); MEAN PLT VOLUME 8.8 fl (7.5-11.1); MONO % 5.7 % (3.8-10.2); NEUT % 86.9 % (42.8-82.8); PLATELET COUNT 331 10^3/uL (134-434); RBC 4.47 M/mm3 (4.00-5.60); RDW 15.5 % (11.9-15.9); WHITE BLOOD COUNT 13.7 K/mm3 (4.0-10.0)
[2022-11-24 14:22] LABS: CALCIUM 8.7 mg/dL (8.5-10.1)
[2022-11-24 14:23] LABS: ALBUMIN 3.5 g/dl (3.4-5.0)
[2022-11-24 14:26] LABS: CREATININE 0.4 mg/dL (0.55-1.3); PHOSPHOROUS 3.8 mg/dL (2.5-4.9)
[2022-11-24 14:28] LABS: BILIRUBIN,TOTAL 0.3 mg/dL (0.2-1); TOT PROT 8.8 g/dl (6.4-8.2)
[2022-11-24 14:31] LABS: N-TERMINAL BNP 19.5 pg/ml (5-125)
[2022-11-24] MEDS ORDERED: SODIUM CHLORIDE 0.9% 500 ML INFUS.BAG IV ONE (14:43)
[2022-11-24 14:44] LABS: ACTIVATED PTT 31.8 SECONDS (25.2-36.5); INR 1.12 (0.83-1.09)
[2022-11-24] MEDS ORDERED: MAGNESIUM 1GM/D5W - 1 GM/100 ML IVPB IVPB ONE (14:49)
[2022-11-24] MEDS ORDERED: CEFEPIME HCL/D5W 1 GM/50 ML BAG IVPB ONE (15:16)
[2022-11-24] MEDS ORDERED: VANCOMYCIN 1 GM in D5W (PRE-DOCKED) 1,000 MG/250 ML (RESTRICTED TO ID ONLY IVPB ONE (15:16)
[2022-11-24 15:48] LABS: URINE APPEARANCE CLOUDY; URINE BILIRUBIN NEGATIVE (NEGATIVE); URINE COLOR YELLOW; URINE GLUCOSE (UA) NEGATIVE (NEGATIVE); URINE KETONE NEGATIVE (NEGATIVE); URINE LEUK ESTERASE NEGATIVE (NEGATIVE); URINE NITRITE NEGATIVE (NEGATIVE); URINE PROTEIN NEGATIVE (NEGATIVE); URINE UROBILINOGEN 0.2 mg/dL (0.2-1.0)
[2022-11-24] MEDS ORDERED: VANCOMYCIN/WATER FOR INJ (PEG) 1,000 MG/200 ML BAG IVPB ONE (17:13)
[2022-11-24] MEDS ORDERED: CEFEPIME 1 GM/100 ML BAG IVPB ONE (17:13)
[2022-11-24] MEDS ORDERED: ALBUTEROL SO4 0.083% IH SOL 2.5 MG/3 ML VIAL.NEB. NEB PRN (17:51)
[2022-11-24] MEDS ORDERED: SCOPOLAMINE HYDROBROMIDE 1 PATCH PATCH.TD72 TD SCH (18:30)
[2022-11-24 19:06] LABS: CALCIUM 8.8 mg/dL (8.5-10.1)
[2022-11-24 19:07] LABS: BLOOD UREA NITROGEN 6.3 mg/dL (7-18)
[2022-11-24 19:10] LABS: CREATININE 0.5 mg/dL (0.55-1.3)
[2022-11-24] MEDS: ALBUTEROL SO4 2.5/IPRATROPIUM 0.5 INH SOL 3 ML VIAL.NEB. NEB SCH (19:17)
[2022-11-24 19:28] LABS: LACTIC ACID 4.1 mmol/L (0.4-2.0)
[2022-11-24] MEDS ORDERED: DOXYCYCLINE INJECTION 100 MG in DEXTROSE 5%-WATER 100 ML IVPB SCH (22:00)
[2022-11-24] MEDS ORDERED: PATIENT'S OWN MEDICATION (NON-FORMULARY) (Omeprazole Magnesium [Prilosec] 10 MG Suspdr.Pkt GT SCH (22:00)
[2022-11-24] MEDS ORDERED: fentaNYL CITRATE 250 MCG/5 ML VIAL ONE (23:36)
[2022-11-24] MEDS ORDERED: RAPID SEQUENCE INTUBATION KIT NR ONE (23:36)
[2022-11-24] MEDS ORDERED: ROCURONIUM BROMIDE 50 MG/5 ML VIAL IVPUSH ONE (23:37)
[2022-11-24] MEDS ORDERED: ETOMIDATE 40 MG/20 ML VIAL IVPUSH ONE (23:38)
[2022-11-24] MEDS ORDERED: PROPOFOL 1,000,000 MCG/100 ML VIAL IVPB SCH (23:45)
[2022-11-25] MEDS ORDERED: ACETAMINOPHEN 1000 MG/100 ML BAG IVPB ONE (00:36)
[2022-11-25] MEDS: POLYETHYLENE GLYCOL (HEALTHYLAX) 3350 17 GM PACKET GT SCH ×3 (00:40→21:29)
[2022-11-25] MEDS: levETIRAcetam 500 MG/5 ML ORAL SOLUTION (UNIT-DOSE CUPS) GT SCH ×3 (00:40→21:29)
[2022-11-25] MEDS: clonazePAM 2 MG TABLET GT SCH ×4 (00:40→21:30)
[2022-11-25] MEDS: APIXABAN 5 MG TABLET GT SCH ×2 (00:40→09:07)
[2022-11-25] MEDS: METOPROLOL TARTRATE 25 MG TABLET (FP) GT SCH ×3 (00:40→21:31)
[2022-11-25 00:49] LABS: ARTERIAL BLD GAS O2 SATURATION 96.6 % (95-98); ARTERIAL BLOOD GAS BASE EXCESS -0.1 mmol/L (-2-2); ARTERIAL BLOOD GAS PO2 76.7 mmHg (80-100)
[2022-11-25 00:57] LABS: ALLENS TEST POSITIVE
[2022-11-25 00:58] LABS: VENT MODE A/C; VENT RATE 25
[2022-11-25] MEDS ORDERED: FENTANYL NS IVPB 500 MCG/100 ML BAG IVPB SCH (01:15)
[2022-11-25] MEDS: FAMOTIDINE 40 MG/5 ML ORAL SUSPENSION GT SCH ×3 (01:26→21:32)
[2022-11-25] MEDS: carBAMazepine 100 MG/5 ML UNIT-DOSE CUP GT SCH ×3 (01:26→21:26)
[2022-11-25] MEDS: methylPREDNISolone NA SUCC 40 MG/1 ML VIAL IVPUSH SCH ×4 (01:44→18:14)
[2022-11-25 02:44] LABS: LACTIC ACID 4.4 mmol/L (0.4-2.0)
[2022-11-25] MEDS ORDERED: LACTATED RINGERS SOLUTION 1000 ML INFUS.BAG IV ONE (02:49)
[2022-11-25 08:04] LABS: HEMATOCRIT 32.3 % (35.4-49); HEMOGLOBIN 11.4 GM/dL (11.7-16.9); LYMPH % 4.9 % (8-40); MCH 29.2 pg (25.7-33.7); MCHC 35.2 g/dl (32.0-35.9); MEAN PLT VOLUME 8.5 fl (7.5-11.1); MONO % 6.1 % (3.8-10.2); PLATELET COUNT 209 10^3/uL (134-434); RDW 14.9 % (11.9-15.9); WHITE BLOOD COUNT 7.5 K/mm3 (4.0-10.0)
[2022-11-25] MEDS: ALBUTEROL SO4 2.5/IPRATROPIUM 0.5 INH SOL 3 ML VIAL.NEB. NEB SCH ×4 (08:23→20:05)
[2022-11-25 08:46] LABS: ALBUMIN 2.9 g/dl (3.4-5.0); CALCIUM 8.2 mg/dL (8.5-10.1)
[2022-11-25 08:47] LABS: BLOOD UREA NITROGEN 9.6 mg/dL (7-18); MAGNESIUM 2.1 mg/dL (1.8-2.4)
[2022-11-25 08:50] LABS: CREATININE 0.5 mg/dL (0.55-1.3); PHOSPHOROUS 2.4 mg/dL (2.5-4.9)
[2022-11-25 08:51] LABS: BILIRUBIN,TOTAL 0.4 mg/dL (0.2-1)
[2022-11-25] MEDS ORDERED: NAPH,MB-DB/K PH,MBDB POWDER PACKET NGT ONE (09:27)
[2022-11-25] MEDS ORDERED: TAMSULOSIN HCL 0.4 MG CAP PO SCH (10:00)
[2022-11-25] MEDS ORDERED: amLODIPine BESYLATE 5 MG TABLET (FP) GT SCH (10:00)
[2022-11-25] MEDS ORDERED: CEFTRIAXONE 1 GM in DEXTROSE 5%-WATER - 50 ML IVPB SCH (10:00)
[2022-11-25] MEDS ORDERED: methylPREDNISolone NA SUCC 40 MG/1 ML VIAL IVPUSH SCH (10:00)
[2022-11-25] MEDS ORDERED: CHOLECALCIFEROL (VIT D3) 1,000 UNIT (25 MCG) TABLET GT SCH (10:00)
[2022-11-25] MEDS: MUPIROCIN 2% TOPICAL OINTMENT FOR DECOLONIZATION NS SCH ×2 (10:21→21:25)
[2022-11-25] MEDS ORDERED: ALBUTEROL SO4 0.083% IH SOL 2.5 MG/3 ML VIAL.NEB. NEB PRN (11:41)
[2022-11-25] MEDS: APIXABAN 2.5 MG TABLET GT SCH (21:27)
[2022-11-25] MEDS: CHLORHEXIDINE GLUCONATE 4% CLEANSER FOR DECOLONIZATION TP SCH (21:29)
[2022-11-25] MEDS ORDERED: DOXYCYCLINE INJECTION 100 MG in DEXTROSE 5%-WATER 100 ML IVPB SCH (22:00)
[2022-11-26] MEDS: methylPREDNISolone NA SUCC 40 MG/1 ML VIAL IVPUSH SCH ×3 (01:17→17:15)
[2022-11-26] MEDS: clonazePAM 2 MG TABLET GT SCH ×2 (05:21→13:56)
[2022-11-26 07:35] LABS: HEMOGLOBIN 11.6 GM/dL (11.7-16.9); MCH 28.9 pg (25.7-33.7); MCHC 34.2 g/dl (32.0-35.9); MEAN CELL VOLUME 84.6 fl (80-96); MEAN PLT VOLUME 8.8 fl (7.5-11.1); PLATELET COUNT 213 10^3/uL (134-434); RBC 4.01 M/mm3 (4.00-5.60); RDW 15.2 % (11.9-15.9); WHITE BLOOD COUNT 12.2 K/mm3 (4.0-10.0)
[2022-11-26] MEDS ORDERED: guaiFENesin/D-METHORPHAN HB 10 ML UNIT-DOSE CUPS PO PRN (07:51)
[2022-11-26] MEDS ORDERED: SCOPOLAMINE HYDROBROMIDE 1 PATCH PATCH.TD72 TD SCH (07:52)
[2022-11-26] MEDS ORDERED: guaiFENesin/D-METHORPHAN HB 10 ML UNIT-DOSE CUPS PEG PRN (07:52)
[2022-11-26 08:06] LABS: ALBUMIN 3.3 g/dl (3.4-5.0); CALCIUM 8.6 mg/dL (8.5-10.1)
[2022-11-26 08:07] LABS: BLOOD UREA NITROGEN 16.4 mg/dL (7-18)
[2022-11-26 08:10] LABS: CREATININE 0.4 mg/dL (0.55-1.3); PHOSPHOROUS 4.5 mg/dL (2.5-4.9)
[2022-11-26 08:11] LABS: BILIRUBIN,TOTAL 0.2 mg/dL (0.2-1)
[2022-11-26] MEDS: ALBUTEROL SO4 2.5/IPRATROPIUM 0.5 INH SOL 3 ML VIAL.NEB. NEB SCH ×4 (08:30→20:33)
[2022-11-26] MEDS ORDERED: TAMSULOSIN HCL 0.4 MG CAP PO SCH (08:30)
[2022-11-26] MEDS: CHOLECALCIFEROL (VIT D3) 1,000 UNIT (25 MCG) TABLET GT SCH (09:00)
[2022-11-26] MEDS: AMINO ACIDS/PROTEIN HYDROLYS 30 ML LIQUID.PKT GT SCH (09:00)
[2022-11-26] MEDS: POLYETHYLENE GLYCOL (HEALTHYLAX) 3350 17 GM PACKET GT SCH ×2 (09:00→21:52)
[2022-11-26] MEDS: METOPROLOL TARTRATE 25 MG TABLET (FP) GT SCH ×2 (09:01→21:57)
[2022-11-26] MEDS: APIXABAN 2.5 MG TABLET GT SCH (09:01)
[2022-11-26] MEDS: ASCORBIC ACID 500 MG TABLET (FP) GT SCH (09:01)
[2022-11-26] MEDS: amLODIPine BESYLATE 2.5 MG TABLET (FP) GT SCH (09:01)
[2022-11-26] MEDS: FAMOTIDINE 40 MG/5 ML ORAL SUSPENSION GT SCH ×2 (09:01→21:56)
[2022-11-26] MEDS: levETIRAcetam 500 MG/5 ML ORAL SOLUTION (UNIT-DOSE CUPS) GT SCH ×2 (09:02→21:56)
[2022-11-26] MEDS: carBAMazepine 100 MG/5 ML UNIT-DOSE CUP GT SCH ×2 (09:02→21:56)
[2022-11-26] MEDS: MUPIROCIN 2% TOPICAL OINTMENT FOR DECOLONIZATION NS SCH ×2 (09:03→21:58)
[2022-11-26] MEDS ORDERED: PIPERACILLIN/TAZOB 3.375 GM 3.375 GM in DEXTROSE 5%-WATER - 50 ML IVPB SCH (10:00)
[2022-11-26] MEDS: guaiFENesin/D-METHORPHAN HB 10 ML UNIT-DOSE CUPS PEG SCH ×2 (13:55→21:58)
[2022-11-26 16:46] LABS: EPI CELLS 8 /uL (0-25.1); HYALINE CASTS 2 /uL (0-3.1); URINE APPEARANCE TURBID; URINE BACTERIA 0 /uL (0-1359); URINE BILIRUBIN NEGATIVE (NEGATIVE); URINE COLOR RED; URINE GLUCOSE (UA) NEGATIVE (NEGATIVE); URINE KETONE NEGATIVE (NEGATIVE); URINE LEUK ESTERASE 2+ (NEGATIVE); URINE NITRITE NEGATIVE (NEGATIVE); URINE PROTEIN 2+ (NEGATIVE); URINE RBC 44194 /uL (0-23.9); URINE UROBILINOGEN 0.2 mg/dL (0.2-1.0); URINE WBC 141 /uL (0-25.8)
[2022-11-26] MEDS: clonazePAM 0.5 MG TABLET GT SCH (21:57)
[2022-11-26] MEDS: CHLORHEXIDINE GLUCONATE 4% CLEANSER FOR DECOLONIZATION TP SCH (21:58)
[2022-11-27] MEDS: methylPREDNISolone NA SUCC 40 MG/1 ML VIAL IVPUSH SCH ×3 (02:21→18:17)
[2022-11-27] MEDS: clonazePAM 0.5 MG TABLET GT SCH ×3 (06:13→21:19)
[2022-11-27] MEDS: guaiFENesin/D-METHORPHAN HB 10 ML UNIT-DOSE CUPS PEG SCH ×3 (06:14→21:22)
[2022-11-27 07:23] LABS: BASO % 0.1 % (0-2.0); HEMATOCRIT 35.8 % (35.4-49); HEMOGLOBIN 12.4 GM/dL (11.7-16.9); MCH 29.2 pg (25.7-33.7); MCHC 34.7 g/dl (32.0-35.9); MEAN CELL VOLUME 84.2 fl (80-96); MEAN PLT VOLUME 8.5 fl (7.5-11.1); MONO % 5.6 % (3.8-10.2); NEUT % 84.3 % (42.8-82.8); PLATELET COUNT 183 10^3/uL (134-434); RBC 4.25 M/mm3 (4.00-5.60); RDW 15.8 % (11.9-15.9); WHITE BLOOD COUNT 6.3 K/mm3 (4.0-10.0)
[2022-11-27] MEDS: ALBUTEROL SO4 2.5/IPRATROPIUM 0.5 INH SOL 3 ML VIAL.NEB. NEB SCH ×6 (07:39→20:05)
[2022-11-27 07:42] LABS: CALCIUM 8.8 mg/dL (8.5-10.1)
[2022-11-27 07:43] LABS: ALBUMIN 3.1 g/dl (3.4-5.0); BLOOD UREA NITROGEN 19.2 mg/dL (7-18); MAGNESIUM 2.2 mg/dL (1.8-2.4)
[2022-11-27 07:46] LABS: CREATININE 0.4 mg/dL (0.55-1.3); PHOSPHOROUS 3.3 mg/dL (2.5-4.9)
[2022-11-27 07:47] LABS: TOT PROT 8.1 g/dl (6.4-8.2)
[2022-11-27 07:48] LABS: BILIRUBIN,TOTAL 0.4 mg/dL (0.2-1)
[2022-11-27] MEDS ORDERED: TAMSULOSIN HCL 0.4 MG CAP PO SCH (08:30)
[2022-11-27] MEDS: CHOLECALCIFEROL (VIT D3) 1,000 UNIT (25 MCG) TABLET GT SCH (09:33)
[2022-11-27] MEDS: ASCORBIC ACID 500 MG TABLET (FP) GT SCH (09:33)
[2022-11-27] MEDS: amLODIPine BESYLATE 2.5 MG TABLET (FP) GT SCH (09:33)
[2022-11-27] MEDS: METOPROLOL TARTRATE 25 MG TABLET (FP) GT SCH ×2 (09:38→21:19)
[2022-11-27] MEDS: levETIRAcetam 500 MG/5 ML ORAL SOLUTION (UNIT-DOSE CUPS) GT SCH ×2 (09:38→21:22)
[2022-11-27] MEDS: AMINO ACIDS/PROTEIN HYDROLYS 30 ML LIQUID.PKT GT SCH (09:39)
[2022-11-27] MEDS: carBAMazepine 100 MG/5 ML UNIT-DOSE CUP GT SCH ×2 (09:39→23:09)
[2022-11-27] MEDS: MUPIROCIN 2% TOPICAL OINTMENT FOR DECOLONIZATION NS SCH (09:40)
[2022-11-27] MEDS: FAMOTIDINE 40 MG/5 ML ORAL SUSPENSION GT SCH ×2 (09:40→23:09)
[2022-11-27 12:29] LABS: ARTERIAL BLD GAS O2 SATURATION 95.2 % (95-98); ARTERIAL BLOOD GAS BASE EXCESS 2.1 mmol/L (-2-2); ARTERIAL BLOOD GAS PO2 77.1 mmHg (80-100); ARTERIAL BLOOD GAS pH 7.387 (7.350-7.450)
[2022-11-27 12:30] LABS: ALLENS TEST POSITIVE
[2022-11-27 12:31] LABS: VENT MODE HIFLOW
[2022-11-27] MEDS: POLYETHYLENE GLYCOL (HEALTHYLAX) 3350 17 GM PACKET GT SCH ×2 (14:00→21:23)
[2022-11-27 15:59] VITALS: BMI 17.7
[2022-11-27] MEDS ORDERED: SCOPOLAMINE HYDROBROMIDE 1 PATCH PATCH.TD72 TD SCH (18:30)
[2022-11-27] MEDS ORDERED: MUPIROCIN 2% TOPICAL OINTMENT FOR DECOLONIZATION NS SCH ×2 (22:00)
[2022-11-27] MEDS ORDERED: APIXABAN 2.5 MG TABLET GT SCH (22:00)
[2022-11-27] MEDS ORDERED: CHLORHEXIDINE GLUCONATE 4% CLEANSER FOR DECOLONIZATION TP SCH (22:00)
[2022-11-28] MEDS: methylPREDNISolone NA SUCC 40 MG/1 ML VIAL IVPUSH SCH ×3 (01:57→17:50)
[2022-11-28] MEDS: clonazePAM 0.5 MG TABLET GT SCH ×3 (05:59→21:41)
[2022-11-28] MEDS: guaiFENesin/D-METHORPHAN HB 10 ML UNIT-DOSE CUPS PEG SCH ×3 (05:59→21:40)
[2022-11-28] MEDS: AMINO ACIDS/PROTEIN HYDROLYS 30 ML LIQUID.PKT GT SCH (08:00)
[2022-11-28] MEDS: ALBUTEROL SO4 2.5/IPRATROPIUM 0.5 INH SOL 3 ML VIAL.NEB. NEB SCH ×4 (08:00→20:26)
[2022-11-28 08:28] LABS: HEMATOCRIT 34.7 % (35.4-49); HEMOGLOBIN 11.6 GM/dL (11.7-16.9); MCH 28.4 pg (25.7-33.7); MCHC 33.5 g/dl (32.0-35.9); MEAN PLT VOLUME 7.4 fl (7.5-11.1); PLATELET COUNT 185 10^3/uL (134-434); RBC 4.08 M/mm3 (4.00-5.60); RDW 15.6 % (11.9-15.9); WHITE BLOOD COUNT 6.2 K/mm3 (4.0-10.0)
[2022-11-28] MEDS ORDERED: TAMSULOSIN HCL 0.4 MG CAP PO SCH (08:30)
[2022-11-28 08:51] LABS: CALCIUM 8.8 mg/dL (8.5-10.1)
[2022-11-28 08:52] LABS: ALBUMIN 2.9 g/dl (3.4-5.0); BLOOD UREA NITROGEN 19.8 mg/dL (7-18)
[2022-11-28 08:55] LABS: CREATININE 0.3 mg/dL (0.55-1.3)
[2022-11-28 08:56] LABS: TOT PROT 7.5 g/dl (6.4-8.2)
[2022-11-28 08:57] LABS: BILIRUBIN,TOTAL 0.4 mg/dL (0.2-1)
[2022-11-28] MEDS: carBAMazepine 100 MG/5 ML UNIT-DOSE CUP GT SCH ×2 (10:40→21:42)
[2022-11-28] MEDS: levETIRAcetam 500 MG/5 ML ORAL SOLUTION (UNIT-DOSE CUPS) GT SCH ×2 (10:42→21:43)
[2022-11-28] MEDS: CHOLECALCIFEROL (VIT D3) 1,000 UNIT (25 MCG) TABLET GT SCH (10:43)
[2022-11-28] MEDS: POLYETHYLENE GLYCOL (HEALTHYLAX) 3350 17 GM PACKET GT SCH ×2 (10:43→21:41)
[2022-11-28] MEDS: METOPROLOL TARTRATE 25 MG TABLET (FP) GT SCH ×2 (10:44→21:41)
[2022-11-28] MEDS: amLODIPine BESYLATE 2.5 MG TABLET (FP) GT SCH (10:44)
[2022-11-28] MEDS: FAMOTIDINE 40 MG/5 ML ORAL SUSPENSION GT SCH ×2 (10:44→21:41)
[2022-11-28] MEDS: ASCORBIC ACID 500 MG TABLET (FP) GT SCH (10:45)
[2022-11-28] MEDS: CEFEPIME 2 GM in DEXTROSE 5%-WATER 100 ML IVPB SCH ×3 (15:10→21:40)
[2022-11-29] MEDS: methylPREDNISolone NA SUCC 40 MG/1 ML VIAL IVPUSH SCH ×3 (01:12→17:38)
[2022-11-29] MEDS: guaiFENesin/D-METHORPHAN HB 10 ML UNIT-DOSE CUPS PEG SCH ×3 (05:18→21:45)
[2022-11-29] MEDS: CEFEPIME 2 GM in DEXTROSE 5%-WATER 100 ML IVPB SCH (05:18)
[2022-11-29] MEDS: clonazePAM 0.5 MG TABLET GT SCH ×3 (05:18→21:45)
[2022-11-29 07:05] LABS: BASO % 0.1 % (0-2.0); HEMATOCRIT 33.2 % (35.4-49); HEMOGLOBIN 11.4 GM/dL (11.7-16.9); MCH 28.9 pg (25.7-33.7); MCHC 34.2 g/dl (32.0-35.9); MEAN CELL VOLUME 84.4 fl (80-96); MEAN PLT VOLUME 7.9 fl (7.5-11.1); MONO % 5.8 % (3.8-10.2); NEUT % 81.1 % (42.8-82.8); PLATELET COUNT 183 10^3/uL (134-434); RBC 3.94 M/mm3 (4.00-5.60); RDW 15.4 % (11.9-15.9); WHITE BLOOD COUNT 6.7 K/mm3 (4.0-10.0)
[2022-11-29] MEDS: ALBUTEROL SO4 2.5/IPRATROPIUM 0.5 INH SOL 3 ML VIAL.NEB. NEB SCH ×4 (07:40→20:39)
[2022-11-29 08:05] LABS: BILIRUBIN,TOTAL 0.3 mg/dL (0.2-1); BLOOD UREA NITROGEN 22.5 mg/dL (7-18); CALCIUM 8.7 mg/dL (8.5-10.1); CREATININE 0.4 mg/dL (0.55-1.3); MAGNESIUM 2.1 mg/dL (1.8-2.4); PHOSPHOROUS 3.3 mg/dL (2.5-4.9); TOT PROT 7.7 g/dl (6.4-8.2)
[2022-11-29] MEDS: AMINO ACIDS/PROTEIN HYDROLYS 30 ML LIQUID.PKT GT SCH (08:19)
[2022-11-29] MEDS: SCOPOLAMINE HYDROBROMIDE 1 PATCH PATCH.TD72 TD SCH (08:19)
[2022-11-29] MEDS: METOPROLOL TARTRATE 25 MG TABLET (FP) GT SCH ×2 (11:05→21:43)
[2022-11-29] MEDS: amLODIPine BESYLATE 2.5 MG TABLET (FP) GT SCH (11:05)
[2022-11-29] MEDS: CHOLECALCIFEROL (VIT D3) 1,000 UNIT (25 MCG) TABLET GT SCH (11:05)
[2022-11-29] MEDS: carBAMazepine 100 MG/5 ML UNIT-DOSE CUP GT SCH ×2 (11:06→21:45)
[2022-11-29] MEDS: FAMOTIDINE 40 MG/5 ML ORAL SUSPENSION GT SCH ×2 (11:06→21:46)
[2022-11-29] MEDS: ASCORBIC ACID 500 MG TABLET (FP) GT SCH (11:06)
[2022-11-29] MEDS: POLYETHYLENE GLYCOL (HEALTHYLAX) 3350 17 GM PACKET GT SCH ×2 (11:06→21:45)
[2022-11-29] MEDS: levETIRAcetam 500 MG/5 ML ORAL SOLUTION (UNIT-DOSE CUPS) GT SCH ×2 (13:57→22:40)
[2022-11-29] MEDS ORDERED: ACETAMINOPHEN 500 MG TABLET (FP) PO ONE (22:07)
[2022-11-30] MEDS: methylPREDNISolone NA SUCC 40 MG/1 ML VIAL IVPUSH SCH ×3 (02:55→17:50)
[2022-11-30] MEDS: guaiFENesin/D-METHORPHAN HB 10 ML UNIT-DOSE CUPS PEG SCH ×3 (06:14→22:50)
[2022-11-30] MEDS: clonazePAM 0.5 MG TABLET GT SCH ×3 (06:14→22:51)
[2022-11-30] MEDS: ALBUTEROL SO4 2.5/IPRATROPIUM 0.5 INH SOL 3 ML VIAL.NEB. NEB SCH ×4 (07:30→20:50)
[2022-11-30] MEDS: AMINO ACIDS/PROTEIN HYDROLYS 30 ML LIQUID.PKT GT SCH (08:03)
[2022-11-30 08:23] LABS: HEMATOCRIT 33.3 % (35.4-49); HEMOGLOBIN 11.5 GM/dL (11.7-16.9); MCH 29.2 pg (25.7-33.7); MCHC 34.5 g/dl (32.0-35.9); MEAN CELL VOLUME 84.6 fl (80-96); MEAN PLT VOLUME 7.6 fl (7.5-11.1); PLATELET COUNT 213 10^3/uL (134-434); RBC 3.94 M/mm3 (4.00-5.60); RDW 15.5 % (11.9-15.9); WHITE BLOOD COUNT 7.6 K/mm3 (4.0-10.0)
[2022-11-30 09:25] LABS: ALBUMIN 2.9 g/dl (3.4-5.0); BLOOD UREA NITROGEN 23.2 mg/dL (7-18); CALCIUM 8.6 mg/dL (8.5-10.1); MAGNESIUM 2.3 mg/dL (1.8-2.4)
[2022-11-30 09:28] LABS: CREATININE 0.4 mg/dL (0.55-1.3)
[2022-11-30 09:30] LABS: BILIRUBIN,TOTAL 0.4 mg/dL (0.2-1); TOT PROT 7.7 g/dl (6.4-8.2)
[2022-11-30] MEDS: METOPROLOL TARTRATE 25 MG TABLET (FP) GT SCH ×2 (11:22→22:51)
[2022-11-30] MEDS: amLODIPine BESYLATE 2.5 MG TABLET (FP) GT SCH (11:22)
[2022-11-30] MEDS: ASCORBIC ACID 500 MG TABLET (FP) GT SCH (11:22)
[2022-11-30] MEDS: POLYETHYLENE GLYCOL (HEALTHYLAX) 3350 17 GM PACKET GT SCH ×2 (11:23→22:50)
[2022-11-30] MEDS: levETIRAcetam 500 MG/5 ML ORAL SOLUTION (UNIT-DOSE CUPS) GT SCH ×2 (11:23→22:57)
[2022-11-30] MEDS: carBAMazepine 100 MG/5 ML UNIT-DOSE CUP GT SCH ×2 (11:23→22:55)
[2022-11-30] MEDS: CHOLECALCIFEROL (VIT D3) 1,000 UNIT (25 MCG) TABLET GT SCH (11:23)
[2022-11-30] MEDS: FAMOTIDINE 40 MG/5 ML ORAL SUSPENSION GT SCH ×2 (11:23→22:57)
[2022-11-30] MEDS ORDERED: PIPERACILLIN/TAZOB 4.5 GM 4.5 GM in DEXTROSE 5%-WATER 100 ML IVPB SCH (15:15)
[2022-11-30] MEDS: PIPERACILLIN/TAZOB 4.5 GM 4.5 GM in DEXTROSE 5%-WATER 100 ML IVPB SCH ×2 (15:57→23:24)
[2022-11-30] MEDS ORDERED: PIPERACILLIN/TAZOB 4.5 GM 3.375 GM in DEXTROSE 5%-WATER 100 ML IVPB SCH (16:27)
[2022-12-01] MEDS: PIPERACILLIN/TAZOB 4.5 GM 4.5 GM in DEXTROSE 5%-WATER 100 ML IVPB SCH ×3 (01:58→17:30)
[2022-12-01] MEDS: methylPREDNISolone NA SUCC 40 MG/1 ML VIAL IVPUSH SCH ×3 (01:58→17:30)
[2022-12-01] MEDS: clonazePAM 0.5 MG TABLET GT SCH ×3 (06:10→22:39)
[2022-12-01] MEDS: guaiFENesin/D-METHORPHAN HB 10 ML UNIT-DOSE CUPS PEG SCH ×3 (06:10→22:42)
[2022-12-01 07:50] LABS: HEMATOCRIT 33.8 % (35.4-49); HEMOGLOBIN 11.7 GM/dL (11.7-16.9); MCH 29.2 pg (25.7-33.7); MCHC 34.5 g/dl (32.0-35.9); MEAN CELL VOLUME 84.4 fl (80-96); MEAN PLT VOLUME 8.1 fl (7.5-11.1); MONO % 8.3 % (3.8-10.2); NEUT % 76.7 % (42.8-82.8); PLATELET COUNT 231 10^3/uL (134-434); RBC 4.01 M/mm3 (4.00-5.60); RDW 15.4 % (11.9-15.9); WHITE BLOOD COUNT 6.6 K/mm3 (4.0-10.0)
[2022-12-01 08:53] LABS: ALBUMIN 2.9 g/dl (3.4-5.0); BLOOD UREA NITROGEN 25.1 mg/dL (7-18); MAGNESIUM 2.3 mg/dL (1.8-2.4)
[2022-12-01 08:54] LABS: CALCIUM 8.8 mg/dL (8.5-10.1)
[2022-12-01 08:56] LABS: CREATININE 0.4 mg/dL (0.55-1.3); PHOSPHOROUS 3.8 mg/dL (2.5-4.9)
[2022-12-01 08:57] LABS: TOT PROT 7.8 g/dl (6.4-8.2)
[2022-12-01 09:00] LABS: BILIRUBIN,TOTAL 0.4 mg/dL (0.2-1)
[2022-12-01] MEDS: POLYETHYLENE GLYCOL (HEALTHYLAX) 3350 17 GM PACKET GT SCH ×2 (09:28→22:34)
[2022-12-01] MEDS: AMINO ACIDS/PROTEIN HYDROLYS 30 ML LIQUID.PKT GT SCH (09:28)
[2022-12-01] MEDS: FAMOTIDINE 40 MG/5 ML ORAL SUSPENSION GT SCH ×2 (09:29→22:40)
[2022-12-01] MEDS: levETIRAcetam 500 MG/5 ML ORAL SOLUTION (UNIT-DOSE CUPS) GT SCH ×3 (09:30→22:49)
[2022-12-01] MEDS: amLODIPine BESYLATE 2.5 MG TABLET (FP) GT SCH (09:31)
[2022-12-01] MEDS: METOPROLOL TARTRATE 25 MG TABLET (FP) GT SCH ×2 (09:32→22:41)
[2022-12-01] MEDS: ASCORBIC ACID 500 MG TABLET (FP) GT SCH (09:32)
[2022-12-01] MEDS: CHOLECALCIFEROL (VIT D3) 1,000 UNIT (25 MCG) TABLET GT SCH (09:33)
[2022-12-01] MEDS: ALBUTEROL SO4 2.5/IPRATROPIUM 0.5 INH SOL 3 ML VIAL.NEB. NEB SCH ×4 (09:55→20:05)
[2022-12-01] MEDS: carBAMazepine 100 MG/5 ML UNIT-DOSE CUP GT SCH ×2 (11:16→22:35)
[2022-12-02] MEDS: methylPREDNISolone NA SUCC 40 MG/1 ML VIAL IVPUSH SCH ×3 (01:42→17:18)
[2022-12-02] MEDS: guaiFENesin/D-METHORPHAN HB 10 ML UNIT-DOSE CUPS PEG SCH ×3 (06:04→21:28)
[2022-12-02] MEDS: clonazePAM 0.5 MG TABLET GT SCH ×3 (06:04→21:28)
[2022-12-02] MEDS: SCOPOLAMINE HYDROBROMIDE 1 PATCH PATCH.TD72 TD SCH (07:27)
[2022-12-02 07:32] LABS: HEMATOCRIT 30.9 % (35.4-49); HEMOGLOBIN 10.6 GM/dL (11.7-16.9); LYMPH % 8.9 % (8-40); MCH 29.4 pg (25.7-33.7); MCHC 34.5 g/dl (32.0-35.9); MEAN CELL VOLUME 85.3 fl (80-96); MEAN PLT VOLUME 8.1 fl (7.5-11.1); MONO % 6.9 % (3.8-10.2); NEUT % 84.2 % (42.8-82.8); PLATELET COUNT 254 10^3/uL (134-434); RBC 3.62 M/mm3 (4.00-5.60); RDW 15.4 % (11.9-15.9); WHITE BLOOD COUNT 13.3 K/mm3 (4.0-10.0)
[2022-12-02] MEDS: ALBUTEROL SO4 2.5/IPRATROPIUM 0.5 INH SOL 3 ML VIAL.NEB. NEB SCH ×4 (07:45→20:35)
[2022-12-02 07:55] LABS: CALCIUM 8.8 mg/dL (8.5-10.1)
[2022-12-02 07:56] LABS: ALBUMIN 2.7 g/dl (3.4-5.0); BLOOD UREA NITROGEN 23.1 mg/dL (7-18); MAGNESIUM 2.3 mg/dL (1.8-2.4)
[2022-12-02 07:59] LABS: CREATININE 0.4 mg/dL (0.55-1.3)
[2022-12-02 08:01] LABS: BILIRUBIN,TOTAL 0.3 mg/dL (0.2-1); TOT PROT 7.2 g/dl (6.4-8.2)
[2022-12-02] MEDS: AMINO ACIDS/PROTEIN HYDROLYS 30 ML LIQUID.PKT GT SCH (08:51)
[2022-12-02] MEDS: CHOLECALCIFEROL (VIT D3) 1,000 UNIT (25 MCG) TABLET GT SCH (10:53)
[2022-12-02] MEDS: amLODIPine BESYLATE 2.5 MG TABLET (FP) GT SCH (10:53)
[2022-12-02] MEDS: levETIRAcetam 500 MG/5 ML ORAL SOLUTION (UNIT-DOSE CUPS) GT SCH ×2 (10:53→21:28)
[2022-12-02] MEDS: METOPROLOL TARTRATE 25 MG TABLET (FP) GT SCH ×2 (10:54→21:29)
[2022-12-02] MEDS: ASCORBIC ACID 500 MG TABLET (FP) GT SCH (10:54)
[2022-12-02] MEDS: carBAMazepine 100 MG/5 ML UNIT-DOSE CUP GT SCH ×2 (10:55→21:48)
[2022-12-02] MEDS: POLYETHYLENE GLYCOL (HEALTHYLAX) 3350 17 GM PACKET GT SCH ×2 (10:55→21:30)
[2022-12-02] MEDS: FAMOTIDINE 40 MG/5 ML ORAL SUSPENSION GT SCH ×2 (10:58→21:29)
[2022-12-02] MEDS ORDERED: SODIUM CHLORIDE NASAL SPRAY 44 ML BOTTLE NS PRN (13:32)
[2022-12-02] MEDS: PIPERACILLIN/TAZOB 4.5 GM 4.5 GM in DEXTROSE 5%-WATER 100 ML IVPB SCH ×4 (16:24→21:30)
[2022-12-02] MEDS: CEFEPIME 2 GM in DEXTROSE 5%-WATER 100 ML IVPB SCH (19:01)
[2022-12-02] MEDS: BUDESONIDE 0.5 MG/2 ML INH SUSP VIAL NEB SCH (20:36)
[2022-12-03] MEDS: methylPREDNISolone NA SUCC 40 MG/1 ML VIAL IVPUSH SCH ×3 (01:49→17:22)
[2022-12-03] MEDS: PIPERACILLIN/TAZOB 4.5 GM 4.5 GM in DEXTROSE 5%-WATER 100 ML IVPB SCH ×3 (05:33→22:14)
[2022-12-03] MEDS: guaiFENesin/D-METHORPHAN HB 10 ML UNIT-DOSE CUPS PEG SCH ×3 (05:33→22:14)
[2022-12-03] MEDS: clonazePAM 0.5 MG TABLET GT SCH ×3 (05:33→22:10)
[2022-12-03] MEDS: BUDESONIDE 0.5 MG/2 ML INH SUSP VIAL NEB SCH ×2 (07:52→20:22)
[2022-12-03] MEDS: ALBUTEROL SO4 2.5/IPRATROPIUM 0.5 INH SOL 3 ML VIAL.NEB. NEB SCH ×2 (07:52→11:41)
[2022-12-03] MEDS: AMINO ACIDS/PROTEIN HYDROLYS 30 ML LIQUID.PKT GT SCH (08:16)
[2022-12-03 08:34] LABS: ALBUMIN 2.6 g/dl (3.4-5.0); BLOOD UREA NITROGEN 19.3 mg/dL (7-18); CALCIUM 8.3 mg/dL (8.5-10.1); MAGNESIUM 2.2 mg/dL (1.8-2.4)
[2022-12-03 08:37] LABS: PHOSPHOROUS 3.6 mg/dL (2.5-4.9)
[2022-12-03 08:38] LABS: CREATININE 0.4 mg/dL (0.55-1.3)
[2022-12-03 08:39] LABS: BILIRUBIN,TOTAL 0.3 mg/dL (0.2-1)
[2022-12-03 08:54] LABS: HEMOGLOBIN 10.6 GM/dL (11.7-16.9); LYMPH % 15.7 % (8-40); MCH 28.4 pg (25.7-33.7); MCHC 33.2 g/dl (32.0-35.9); MEAN CELL VOLUME 85.6 fl (80-96); MEAN PLT VOLUME 7.7 fl (7.5-11.1); MONO % 13.2 % (3.8-10.2); NEUT % 71.1 % (42.8-82.8); PLATELET COUNT 286 10^3/uL (134-434); RBC 3.74 M/mm3 (4.00-5.60); RDW 15.5 % (11.9-15.9); WHITE BLOOD COUNT 8.8 K/mm3 (4.0-10.0)
[2022-12-03] MEDS: FAMOTIDINE 40 MG/5 ML ORAL SUSPENSION GT SCH ×2 (09:59→22:13)
[2022-12-03] MEDS: amLODIPine BESYLATE 2.5 MG TABLET (FP) GT SCH (10:00)
[2022-12-03] MEDS: ASCORBIC ACID 500 MG TABLET (FP) GT SCH (10:00)
[2022-12-03] MEDS: METOPROLOL TARTRATE 25 MG TABLET (FP) GT SCH ×2 (10:00→22:10)
[2022-12-03] MEDS: levETIRAcetam 500 MG/5 ML ORAL SOLUTION (UNIT-DOSE CUPS) GT SCH ×2 (10:03→22:10)
[2022-12-03] MEDS: CHOLECALCIFEROL (VIT D3) 1,000 UNIT (25 MCG) TABLET GT SCH (10:03)
[2022-12-03] MEDS: carBAMazepine 100 MG/5 ML UNIT-DOSE CUP GT SCH ×2 (10:03→22:14)
[2022-12-03] MEDS: POLYETHYLENE GLYCOL (HEALTHYLAX) 3350 17 GM PACKET GT SCH ×2 (10:03→22:13)
[2022-12-03] MEDS ORDERED: ENOXAPARIN NA (PORCINE) 30 MG/0.3 ML DISP.SYRIN SQ SCH (10:30)
[2022-12-03] MEDS: ALBUTEROL SO4 0.083% IH SOL 2.5 MG/3 ML VIAL.NEB. NEB PRN ×2 (13:07→22:15)
[2022-12-03] MEDS: ACETYLCYSTEINE 20% 200MG/ML 4 ML VIAL *FOR ORAL / INH USE ONLY NEB SCH ×2 (16:02→20:27)
[2022-12-03] MEDS: ALBUTEROL SO4 0.042% IH SOL 1.25 MG/3 ML VIAL.NEB NEB SCH ×2 (16:03→20:27)
[2022-12-03] MEDS ORDERED: MIDAZOLAM IN 0.9 % SOD.CHLORID 100 MG/100 ML PLAST..BAG IVPB SCH (23:15)
[2022-12-03] MEDS ORDERED: SODIUM CHLORIDE NASAL SPRAY 44 ML BOTTLE NS PRN (23:57)
[2022-12-03] MEDS ORDERED: ALBUTEROL SO4 0.083% IH SOL 2.5 MG/3 ML VIAL.NEB. NEB PRN (23:57)
[2022-12-04] MEDS: MIDAZOLAM IN 0.9 % SOD.CHLORID 100 MG/100 ML PLAST..BAG IVPB SCH ×3 (00:20→21:10)
[2022-12-04] MEDS: PROPOFOL 1,000,000 MCG/100 ML VIAL IVPB SCH ×3 (00:34→17:22)
[2022-12-04] MEDS: MUPIROCIN 2% TOPICAL OINTMENT FOR DECOLONIZATION NS SCH ×3 (00:52→21:09)
[2022-12-04] MEDS ORDERED: VANCOMYCIN 1 GM in NS (PRE-DOCKED) 1,000 MG/250 ML (RESTRICTED TO ID ONLY) IVPB ONE (01:15)
[2022-12-04] MEDS ORDERED: VANCOMYCIN 1 GM in D5W (PRE-DOCKED) 1,000 MG/250 ML (RESTRICTED TO ID ONLY IVPB ONE (01:15)
[2022-12-04] MEDS: methylPREDNISolone NA SUCC 40 MG/1 ML VIAL IVPUSH SCH ×3 (01:33→17:23)
[2022-12-04] MEDS ORDERED: LACTATED RINGERS SOLUTION 1000 ML INFUS.BAG IV ONE (03:15)
[2022-12-04] MEDS: guaiFENesin/D-METHORPHAN HB 10 ML UNIT-DOSE CUPS PEG SCH ×3 (06:50→23:14)
[2022-12-04] MEDS: PIPERACILLIN/TAZOB 4.5 GM 4.5 GM in DEXTROSE 5%-WATER 100 ML IVPB SCH ×2 (06:50→13:53)
[2022-12-04] MEDS: clonazePAM 0.5 MG TABLET GT SCH ×3 (06:50→21:06)
[2022-12-04 07:03] LABS: HEMATOCRIT 32.1 % (35.4-49); HEMOGLOBIN 10.7 GM/dL (11.7-16.9); LYMPH % 7.7 % (8-40); MCH 28.6 pg (25.7-33.7); MCHC 33.3 g/dl (32.0-35.9); MEAN CELL VOLUME 85.7 fl (80-96); MEAN PLT VOLUME 7.9 fl (7.5-11.1); MONO % 7.1 % (3.8-10.2); NEUT % 85.2 % (42.8-82.8); PLATELET COUNT 330 10^3/uL (134-434); RBC 3.75 M/mm3 (4.00-5.60); RDW 15.3 % (11.9-15.9); WHITE BLOOD COUNT 13.8 K/mm3 (4.0-10.0)
[2022-12-04 07:25] LABS: BLOOD UREA NITROGEN 17.6 mg/dL (7-18); CALCIUM 8.4 mg/dL (8.5-10.1); MAGNESIUM 2.3 mg/dL (1.8-2.4)
[2022-12-04 07:26] LABS: ALBUMIN 2.7 g/dl (3.4-5.0)
[2022-12-04 07:29] LABS: CREATININE 0.6 mg/dL (0.55-1.3); PHOSPHOROUS 3.4 mg/dL (2.5-4.9)
[2022-12-04 07:30] LABS: BILIRUBIN,TOTAL 0.4 mg/dL (0.2-1)
[2022-12-04] MEDS ORDERED: ACETYLCYSTEINE 20% 200MG/ML 4 ML VIAL *FOR ORAL / INH USE ONLY NEB SCH (08:00)
[2022-12-04] MEDS: AMINO ACIDS/PROTEIN HYDROLYS 30 ML LIQUID.PKT GT SCH (08:09)
[2022-12-04] MEDS: BUDESONIDE 0.5 MG/2 ML INH SUSP VIAL NEB SCH ×2 (08:15→20:46)
[2022-12-04] MEDS: ALBUTEROL SO4 0.042% IH SOL 1.25 MG/3 ML VIAL.NEB NEB SCH ×4 (08:20→20:46)
[2022-12-04] MEDS ORDERED: TAMSULOSIN HCL 0.4 MG CAP PO SCH (08:30)
[2022-12-04] MEDS: POLYETHYLENE GLYCOL (HEALTHYLAX) 3350 17 GM PACKET GT SCH ×2 (09:26→21:08)
[2022-12-04] MEDS: carBAMazepine 100 MG/5 ML UNIT-DOSE CUP GT SCH ×2 (09:26→21:07)
[2022-12-04] MEDS: ENOXAPARIN NA (PORCINE) 30 MG/0.3 ML DISP.SYRIN SQ SCH (09:27)
[2022-12-04] MEDS: CHOLECALCIFEROL (VIT D3) 1,000 UNIT (25 MCG) TABLET GT SCH (09:27)
[2022-12-04] MEDS: METOPROLOL TARTRATE 25 MG TABLET (FP) GT SCH ×2 (09:27→21:07)
[2022-12-04] MEDS: amLODIPine BESYLATE 2.5 MG TABLET (FP) GT SCH (09:27)
[2022-12-04] MEDS: ASCORBIC ACID 500 MG TABLET (FP) GT SCH (09:28)
[2022-12-04] MEDS: PANTOPRAZOLE SODIUM 40 MG VIAL IVPUSH SCH (09:28)
[2022-12-04] MEDS ORDERED: PANTOPRAZOLE SODIUM 40 MG VIAL IVPUSH SCH (10:00)
[2022-12-04] MEDS ORDERED: MUPIROCIN 2% TOPICAL OINTMENT FOR DECOLONIZATION NS SCH ×2 (10:00)
[2022-12-04] MEDS: FAMOTIDINE 40 MG/5 ML ORAL SUSPENSION GT SCH ×2 (11:31→23:14)
[2022-12-04] MEDS: levETIRAcetam 500 MG/5 ML ORAL SOLUTION (UNIT-DOSE CUPS) GT SCH ×2 (11:31→21:07)
[2022-12-04 12:55] LABS: ARTERIAL BLD GAS O2 SATURATION 97.9 % (95-98); ARTERIAL BLOOD GAS PO2 96.1 mmHg (80-100); ARTERIAL BLOOD GAS pH 7.502 (7.350-7.450)
[2022-12-04 13:01] LABS: ALLENS TEST POSITIVE
[2022-12-04 13:05] LABS: VENT MODE AC; VENT RATE 15
[2022-12-04] MEDS: DOXAZOSIN MESYLATE 1 MG TABLET GT SCH (17:15)
[2022-12-04] MEDS: PIPERACILLIN/TAZOB 3.375 GM 3.375 GM in DEXTROSE 5%-WATER - 50 ML IVPB SCH (17:23)
[2022-12-04] MEDS: CHLORHEXIDINE GLUCONATE 4% CLEANSER FOR DECOLONIZATION TP SCH (21:10)
[2022-12-04] MEDS ORDERED: CHLORHEXIDINE GLUCONATE 4% CLEANSER FOR DECOLONIZATION TP SCH ×2 (22:00)
[2022-12-05] MEDS: PROPOFOL 1,000,000 MCG/100 ML VIAL IVPB SCH (01:37)
[2022-12-05] MEDS: PIPERACILLIN/TAZOB 3.375 GM 3.375 GM in DEXTROSE 5%-WATER - 50 ML IVPB SCH ×3 (01:38→17:01)
[2022-12-05] MEDS: methylPREDNISolone NA SUCC 40 MG/1 ML VIAL IVPUSH SCH ×3 (01:38→21:02)
[2022-12-05] MEDS: clonazePAM 0.5 MG TABLET GT SCH ×3 (06:45→21:03)
[2022-12-05 08:13] LABS: CHLORIDE 103 mmol/L (98-107); SODIUM 140 mmol/L (136-145)
[2022-12-05 08:18] LABS: HEMATOCRIT 29.2 % (35.4-49); MCH 29.3 pg (25.7-33.7); MCHC 34.2 g/dl (32.0-35.9); MEAN CELL VOLUME 85.8 fl (80-96); MEAN PLT VOLUME 7.8 fl (7.5-11.1); PLATELET COUNT 327 10^3/uL (134-434); RDW 15.2 % (11.9-15.9)
[2022-12-05 08:20] LABS: PHOSPHOROUS 3.4 mg/dL (2.5-4.9)
[2022-12-05 08:21] LABS: ALBUMIN 2.4 g/dl (3.4-5.0); BLOOD UREA NITROGEN 17.4 mg/dL (7-18); CREATININE 0.4 mg/dL (0.55-1.3); GLUCOSE,RANDOM 109 mg/dL (74-106)
[2022-12-05 08:22] LABS: BILIRUBIN,TOTAL 0.4 mg/dL (0.2-1); TOT PROT 6.5 g/dl (6.4-8.2)
[2022-12-05 08:23] LABS: ALK PHOS 67 U/L (45-117); CO2 27 mmol/L (21-32); MAGNESIUM 2.1 mg/dL (1.8-2.4)
[2022-12-05 08:24] LABS: SGOT/AST 5 U/L (15-37); SGPT/ALT 30 U/L (13-61)
[2022-12-05] MEDS: BUDESONIDE 0.5 MG/2 ML INH SUSP VIAL NEB SCH ×2 (08:36→20:43)
[2022-12-05] MEDS: ALBUTEROL SO4 0.042% IH SOL 1.25 MG/3 ML VIAL.NEB NEB SCH ×4 (08:37→20:43)
[2022-12-05 08:45] LABS: ANION GAP 10 MMOL/L (8-16)
[2022-12-05] MEDS: SCOPOLAMINE HYDROBROMIDE 1 PATCH PATCH.TD72 TD SCH (08:48)
[2022-12-05] MEDS: AMINO ACIDS/PROTEIN HYDROLYS 30 ML LIQUID.PKT GT SCH (08:49)
[2022-12-05] MEDS: CHOLECALCIFEROL (VIT D3) 1,000 UNIT (25 MCG) TABLET GT SCH (09:11)
[2022-12-05] MEDS: PANTOPRAZOLE SODIUM 40 MG VIAL IVPUSH SCH (09:11)
[2022-12-05] MEDS: levETIRAcetam 500 MG/5 ML ORAL SOLUTION (UNIT-DOSE CUPS) GT SCH ×2 (09:11→21:02)
[2022-12-05] MEDS: ENOXAPARIN NA (PORCINE) 30 MG/0.3 ML DISP.SYRIN SQ SCH (09:13)
[2022-12-05] MEDS: POLYETHYLENE GLYCOL (HEALTHYLAX) 3350 17 GM PACKET GT SCH ×2 (09:13→21:48)
[2022-12-05] MEDS: amLODIPine BESYLATE 2.5 MG TABLET (FP) GT SCH (09:13)
[2022-12-05] MEDS: FAMOTIDINE 40 MG/5 ML ORAL SUSPENSION GT SCH ×2 (09:13→21:03)
[2022-12-05] MEDS: METOPROLOL TARTRATE 25 MG TABLET (FP) GT SCH ×2 (09:13→21:03)
[2022-12-05] MEDS: MUPIROCIN 2% TOPICAL OINTMENT FOR DECOLONIZATION NS SCH ×2 (09:14→21:02)
[2022-12-05] MEDS: carBAMazepine 100 MG/5 ML UNIT-DOSE CUP GT SCH ×2 (09:14→21:05)
[2022-12-05] MEDS: DOXAZOSIN MESYLATE 1 MG TABLET GT SCH (09:14)
[2022-12-05] MEDS: ASCORBIC ACID 500 MG TABLET (FP) GT SCH (09:18)
[2022-12-05] MEDS: POTASSIUM CHLORIDE ORAL LIQUID 20 MEQ/15 ML PO SCH ×3 (09:18→17:00)
[2022-12-05 10:25] LABS: ANISOCYTOSIS 0; MACROCYTOSIS 0
[2022-12-05] MEDS: MIDAZOLAM HCL 2 MG/2 ML SINGLE DOSE VIAL IVPUSH PRN ×2 (11:00→17:33)
[2022-12-05 19:35] LABS: CALCIUM 8.7 mg/dL (8.5-10.1)
[2022-12-05 19:36] LABS: BLOOD UREA NITROGEN 14.8 mg/dL (7-18)
[2022-12-05 19:39] LABS: CREATININE 0.4 mg/dL (0.55-1.3)
[2022-12-05] MEDS: CHLORHEXIDINE GLUCONATE 4% CLEANSER FOR DECOLONIZATION TP SCH (21:02)
[2022-12-05] MEDS: LORazepam 2 MG/ML SDV VIAL IVPUSH PRN (21:04)
[2022-12-06] MEDS: PIPERACILLIN/TAZOB 3.375 GM 3.375 GM in DEXTROSE 5%-WATER - 50 ML IVPB SCH ×3 (01:56→17:23)
[2022-12-06] MEDS: LORazepam 2 MG/ML SDV VIAL IVPUSH PRN ×3 (02:12→16:04)
[2022-12-06] MEDS: clonazePAM 0.5 MG TABLET GT SCH ×3 (06:00→21:27)
[2022-12-06] MEDS: BUDESONIDE 0.5 MG/2 ML INH SUSP VIAL NEB SCH ×2 (07:10→20:02)
[2022-12-06 07:17] LABS: HEMATOCRIT 33.2 % (35.4-49); HEMOGLOBIN 11.1 GM/dL (11.7-16.9); LYMPH % 19.7 % (8-40); MCHC 33.3 g/dl (32.0-35.9); MEAN CELL VOLUME 86.9 fl (80-96); MEAN PLT VOLUME 7.3 fl (7.5-11.1); MONO % 12.3 % (3.8-10.2); PLATELET COUNT 424 10^3/uL (134-434); RBC 3.82 M/mm3 (4.00-5.60); WHITE BLOOD COUNT 12.8 K/mm3 (4.0-10.0)
[2022-12-06 07:35] LABS: CALCIUM 8.6 mg/dL (8.5-10.1)
[2022-12-06 07:36] LABS: ALBUMIN 2.7 g/dl (3.4-5.0); BLOOD UREA NITROGEN 14.5 mg/dL (7-18); MAGNESIUM 2.4 mg/dL (1.8-2.4)
[2022-12-06 07:38] LABS: PHOSPHOROUS 3.8 mg/dL (2.5-4.9)
[2022-12-06 07:39] LABS: CREATININE 0.4 mg/dL (0.55-1.3)
[2022-12-06 07:40] LABS: BILIRUBIN,TOTAL 0.3 mg/dL (0.2-1); TOT PROT 7.1 g/dl (6.4-8.2)
[2022-12-06] MEDS: ALBUTEROL SO4 0.042% IH SOL 1.25 MG/3 ML VIAL.NEB NEB SCH ×4 (08:27→20:01)
[2022-12-06] MEDS: ENOXAPARIN NA (PORCINE) 30 MG/0.3 ML DISP.SYRIN SQ SCH (09:01)
[2022-12-06] MEDS: carBAMazepine 100 MG/5 ML UNIT-DOSE CUP GT SCH ×2 (09:01→21:26)
[2022-12-06] MEDS: AMINO ACIDS/PROTEIN HYDROLYS 30 ML LIQUID.PKT GT SCH (09:01)
[2022-12-06] MEDS: levETIRAcetam 500 MG/5 ML ORAL SOLUTION (UNIT-DOSE CUPS) GT SCH ×2 (09:01→21:27)
[2022-12-06] MEDS: CHOLECALCIFEROL (VIT D3) 1,000 UNIT (25 MCG) TABLET GT SCH (09:02)
[2022-12-06] MEDS: FAMOTIDINE 40 MG/5 ML ORAL SUSPENSION GT SCH ×2 (09:02→21:27)
[2022-12-06] MEDS: amLODIPine BESYLATE 2.5 MG TABLET (FP) GT SCH (09:02)
[2022-12-06] MEDS: DOXAZOSIN MESYLATE 1 MG TABLET GT SCH (09:02)
[2022-12-06] MEDS: ASCORBIC ACID 500 MG TABLET (FP) GT SCH (09:03)
[2022-12-06] MEDS: METOPROLOL TARTRATE 25 MG TABLET (FP) GT SCH ×2 (09:06→21:27)
[2022-12-06] MEDS: methylPREDNISolone NA SUCC 40 MG/1 ML VIAL IVPUSH SCH ×2 (09:15→21:25)
[2022-12-06] MEDS: POLYETHYLENE GLYCOL (HEALTHYLAX) 3350 17 GM PACKET GT SCH ×2 (09:15→21:27)
[2022-12-06] MEDS: MUPIROCIN 2% TOPICAL OINTMENT FOR DECOLONIZATION NS SCH ×2 (09:15→21:25)
[2022-12-06] MEDS: CHLORHEXIDINE GLUCONATE 4% CLEANSER FOR DECOLONIZATION TP SCH (21:27)
[2022-12-07] MEDS: PIPERACILLIN/TAZOB 3.375 GM 3.375 GM in DEXTROSE 5%-WATER - 50 ML IVPB SCH ×3 (01:03→17:43)
[2022-12-07] MEDS: LORazepam 2 MG/ML SDV VIAL IVPUSH PRN (04:44)
[2022-12-07] MEDS: clonazePAM 0.5 MG TABLET GT SCH ×3 (04:59→21:19)
[2022-12-07 07:32] LABS: ALBUMIN 2.6 g/dl (3.4-5.0); CALCIUM 8.5 mg/dL (8.5-10.1)
[2022-12-07 07:33] LABS: BLOOD UREA NITROGEN 18.8 mg/dL (7-18); MAGNESIUM 2.3 mg/dL (1.8-2.4)
[2022-12-07 07:35] LABS: CREATININE 0.4 mg/dL (0.55-1.3)
[2022-12-07 07:36] LABS: PHOSPHOROUS 4.1 mg/dL (2.5-4.9)
[2022-12-07 07:37] LABS: BILIRUBIN,TOTAL 0.8 mg/dL (0.2-1); TOT PROT 6.7 g/dl (6.4-8.2)
[2022-12-07 07:43] LABS: BASO % 0.1 % (0-2.0); HEMATOCRIT 30.1 % (35.4-49); HEMOGLOBIN 10.2 GM/dL (11.7-16.9); LYMPH % 10.6 % (8-40); MCH 29.1 pg (25.7-33.7); MEAN CELL VOLUME 85.6 fl (80-96); MEAN PLT VOLUME 7.2 fl (7.5-11.1); MONO % 8.7 % (3.8-10.2); NEUT % 80.6 % (42.8-82.8); PLATELET COUNT 443 10^3/uL (134-434); RBC 3.52 M/mm3 (4.00-5.60); RDW 16.2 % (11.9-15.9); WHITE BLOOD COUNT 12.8 K/mm3 (4.0-10.0)
[2022-12-07] MEDS: BUDESONIDE 0.5 MG/2 ML INH SUSP VIAL NEB SCH ×2 (08:10→20:31)
[2022-12-07] MEDS: ALBUTEROL SO4 0.042% IH SOL 1.25 MG/3 ML VIAL.NEB NEB SCH ×4 (08:15→20:31)
[2022-12-07] MEDS ORDERED: HYDROCORTISONE SOD SUCCINATE 100 MG/2 ML VIAL IVPUSH SCH (10:00)
[2022-12-07] MEDS: AMINO ACIDS/PROTEIN HYDROLYS 30 ML LIQUID.PKT GT SCH (10:26)
[2022-12-07] MEDS: MUPIROCIN 2% TOPICAL OINTMENT FOR DECOLONIZATION NS SCH ×2 (10:26→21:14)
[2022-12-07] MEDS: carBAMazepine 100 MG/5 ML UNIT-DOSE CUP GT SCH ×2 (10:27→21:15)
[2022-12-07] MEDS: POLYETHYLENE GLYCOL (HEALTHYLAX) 3350 17 GM PACKET GT SCH ×2 (10:27→21:15)
[2022-12-07] MEDS: DOXAZOSIN MESYLATE 1 MG TABLET GT SCH (10:27)
[2022-12-07] MEDS: levETIRAcetam 500 MG/5 ML ORAL SOLUTION (UNIT-DOSE CUPS) GT SCH ×2 (10:27→21:18)
[2022-12-07] MEDS: ENOXAPARIN NA (PORCINE) 30 MG/0.3 ML DISP.SYRIN SQ SCH (10:28)
[2022-12-07] MEDS: FAMOTIDINE 40 MG/5 ML ORAL SUSPENSION GT SCH ×2 (10:28→21:20)
[2022-12-07] MEDS: amLODIPine BESYLATE 2.5 MG TABLET (FP) GT SCH (10:28)
[2022-12-07] MEDS: METOPROLOL TARTRATE 25 MG TABLET (FP) GT SCH ×2 (10:28→21:19)
[2022-12-07] MEDS: ASCORBIC ACID 500 MG TABLET (FP) GT SCH (10:30)
[2022-12-07] MEDS: CHOLECALCIFEROL (VIT D3) 1,000 UNIT (25 MCG) TABLET GT SCH (10:30)
[2022-12-07] MEDS: CHLORHEXIDINE GLUCONATE 4% CLEANSER FOR DECOLONIZATION TP SCH (21:15)
[2022-12-08] MEDS: PIPERACILLIN/TAZOB 3.375 GM 3.375 GM in DEXTROSE 5%-WATER - 50 ML IVPB SCH ×3 (02:17→17:43)
[2022-12-08] MEDS: clonazePAM 0.5 MG TABLET GT SCH ×3 (06:21→21:25)
[2022-12-08 07:04] LABS: HEMATOCRIT 32.1 % (35.4-49); HEMOGLOBIN 11.1 GM/dL (11.7-16.9); MCH 29.8 pg (25.7-33.7); MCHC 34.5 g/dl (32.0-35.9); MEAN CELL VOLUME 86.2 fl (80-96); MEAN PLT VOLUME 7.3 fl (7.5-11.1); PLATELET COUNT 490 10^3/uL (134-434); RBC 3.73 M/mm3 (4.00-5.60); RDW 15.8 % (11.9-15.9); WHITE BLOOD COUNT 11.5 K/mm3 (4.0-10.0)
[2022-12-08 07:17] LABS: CALCIUM 8.4 mg/dL (8.5-10.1)
[2022-12-08 07:18] LABS: MAGNESIUM 2.2 mg/dL (1.8-2.4)
[2022-12-08 07:21] LABS: CREATININE 0.4 mg/dL (0.55-1.3); PHOSPHOROUS 3.8 mg/dL (2.5-4.9)
[2022-12-08] MEDS: BUDESONIDE 0.5 MG/2 ML INH SUSP VIAL NEB SCH ×2 (08:30→20:58)
[2022-12-08] MEDS: ALBUTEROL SO4 0.042% IH SOL 1.25 MG/3 ML VIAL.NEB NEB SCH ×4 (08:31→20:58)
[2022-12-08] MEDS: ENOXAPARIN NA (PORCINE) 30 MG/0.3 ML DISP.SYRIN SQ SCH (09:32)
[2022-12-08] MEDS: AMINO ACIDS/PROTEIN HYDROLYS 30 ML LIQUID.PKT GT SCH (09:32)
[2022-12-08] MEDS: levETIRAcetam 500 MG/5 ML ORAL SOLUTION (UNIT-DOSE CUPS) GT SCH ×2 (09:32→21:25)
[2022-12-08] MEDS: SCOPOLAMINE HYDROBROMIDE 1 PATCH PATCH.TD72 TD SCH (09:32)
[2022-12-08] MEDS: METOPROLOL TARTRATE 25 MG TABLET (FP) GT SCH ×2 (09:33→21:25)
[2022-12-08] MEDS: CHOLECALCIFEROL (VIT D3) 1,000 UNIT (25 MCG) TABLET GT SCH (09:33)
[2022-12-08] MEDS: FAMOTIDINE 40 MG/5 ML ORAL SUSPENSION GT SCH ×2 (09:33→21:25)
[2022-12-08] MEDS: methylPREDNISolone NA SUCC 40 MG/1 ML VIAL IVPUSH SCH (09:34)
[2022-12-08] MEDS: amLODIPine BESYLATE 2.5 MG TABLET (FP) GT SCH (09:34)
[2022-12-08] MEDS: POLYETHYLENE GLYCOL (HEALTHYLAX) 3350 17 GM PACKET GT SCH ×2 (09:34→21:26)
[2022-12-08] MEDS: ASCORBIC ACID 500 MG TABLET (FP) GT SCH (09:34)
[2022-12-08] MEDS: carBAMazepine 100 MG/5 ML UNIT-DOSE CUP GT SCH ×2 (09:35→21:25)
[2022-12-08] MEDS: MUPIROCIN 2% TOPICAL OINTMENT FOR DECOLONIZATION NS SCH ×2 (09:36→21:26)
[2022-12-08] MEDS: DOXAZOSIN MESYLATE 1 MG TABLET GT SCH (09:46)
[2022-12-08] MEDS: CHLORHEXIDINE GLUCONATE 4% CLEANSER FOR DECOLONIZATION TP SCH (21:25)
[2022-12-08] MEDS: GLYCOPYRROLATE 1 MG TABLET GT SCH (21:41)
[2022-12-09] MEDS: PIPERACILLIN/TAZOB 3.375 GM 3.375 GM in DEXTROSE 5%-WATER - 50 ML IVPB SCH ×3 (01:08→17:17)
[2022-12-09] MEDS: clonazePAM 0.5 MG TABLET GT SCH ×3 (06:26→21:06)
[2022-12-09 06:46] LABS: HEMATOCRIT 28.6 % (35.4-49); HEMOGLOBIN 10.1 GM/dL (11.7-16.9); MCH 30.3 pg (25.7-33.7); MCHC 35.2 g/dl (32.0-35.9); MEAN CELL VOLUME 85.9 fl (80-96); MEAN PLT VOLUME 7.3 fl (7.5-11.1); PLATELET COUNT 553 10^3/uL (134-434); RBC 3.33 M/mm3 (4.00-5.60); RDW 15.7 % (11.9-15.9)
[2022-12-09 07:08] LABS: CALCIUM 8.2 mg/dL (8.5-10.1)
[2022-12-09 07:09] LABS: BLOOD UREA NITROGEN 15.7 mg/dL (7-18); MAGNESIUM 2.2 mg/dL (1.8-2.4)
[2022-12-09 07:13] LABS: CREATININE 0.3 mg/dL (0.55-1.3); PHOSPHOROUS 2.7 mg/dL (2.5-4.9)
[2022-12-09] MEDS: BUDESONIDE 0.5 MG/2 ML INH SUSP VIAL NEB SCH ×2 (07:50→20:30)
[2022-12-09] MEDS ORDERED: DEXAMETHASONE SOD PHOSPHATE 10 MG/1 ML VIAL IVPUSH ONE (09:40)
[2022-12-09] MEDS ORDERED: DEXAMETHASONE SOD PHOSPHATE 10 MG/1 ML VIAL ONE (09:41)
[2022-12-09] MEDS ORDERED: RACEPINEPHRINE IH SOL 2.25% 11.25 MG/0.5 ML VIAL NEB ONE ×2 (09:41→09:44)
[2022-12-09] MEDS: ASCORBIC ACID 500 MG TABLET (FP) GT SCH (09:46)
[2022-12-09] MEDS: ENOXAPARIN NA (PORCINE) 30 MG/0.3 ML DISP.SYRIN SQ SCH (09:46)
[2022-12-09] MEDS: METOPROLOL TARTRATE 25 MG TABLET (FP) GT SCH ×2 (09:46→21:06)
[2022-12-09] MEDS: CHOLECALCIFEROL (VIT D3) 1,000 UNIT (25 MCG) TABLET GT SCH (09:46)
[2022-12-09] MEDS: AMINO ACIDS/PROTEIN HYDROLYS 30 ML LIQUID.PKT GT SCH (09:47)
[2022-12-09] MEDS: DOXAZOSIN MESYLATE 1 MG TABLET GT SCH (09:47)
[2022-12-09] MEDS: FAMOTIDINE 40 MG/5 ML ORAL SUSPENSION GT SCH ×2 (09:47→21:06)
[2022-12-09] MEDS: levETIRAcetam 500 MG/5 ML ORAL SOLUTION (UNIT-DOSE CUPS) GT SCH ×2 (09:47→21:11)
[2022-12-09] MEDS: amLODIPine BESYLATE 2.5 MG TABLET (FP) GT SCH (09:47)
[2022-12-09] MEDS: methylPREDNISolone NA SUCC 40 MG/1 ML VIAL IVPUSH SCH (09:48)
[2022-12-09] MEDS: carBAMazepine 100 MG/5 ML UNIT-DOSE CUP GT SCH ×2 (09:48→21:35)
[2022-12-09] MEDS: POLYETHYLENE GLYCOL (HEALTHYLAX) 3350 17 GM PACKET GT SCH ×2 (09:48→21:06)
[2022-12-09] MEDS: CHLORHEXIDINE GLUCONATE 4% CLEANSER FOR DECOLONIZATION TP SCH (21:11)
[2022-12-09] MEDS: GLYCOPYRROLATE 1 MG TABLET GT SCH (21:35)
[2022-12-10] MEDS: PIPERACILLIN/TAZOB 3.375 GM 3.375 GM in DEXTROSE 5%-WATER - 50 ML IVPB SCH ×3 (02:45→17:10)
[2022-12-10] MEDS: clonazePAM 0.5 MG TABLET GT SCH ×3 (05:07→21:36)
[2022-12-10 07:17] LABS: HEMATOCRIT 31.8 % (35.4-49); HEMOGLOBIN 10.9 GM/dL (11.7-16.9); MCH 29.4 pg (25.7-33.7); MCHC 34.4 g/dl (32.0-35.9); MEAN CELL VOLUME 85.4 fl (80-96); MEAN PLT VOLUME 7.1 fl (7.5-11.1); PLATELET COUNT 574 10^3/uL (134-434); RBC 3.72 M/mm3 (4.00-5.60); WHITE BLOOD COUNT 9.4 K/mm3 (4.0-10.0)
[2022-12-10 07:43] LABS: CALCIUM 8.8 mg/dL (8.5-10.1)
[2022-12-10 07:45] LABS: BLOOD UREA NITROGEN 18.8 mg/dL (7-18); MAGNESIUM 2.4 mg/dL (1.8-2.4)
[2022-12-10 07:48] LABS: CREATININE 0.4 mg/dL (0.55-1.3); PHOSPHOROUS 3.3 mg/dL (2.5-4.9)
[2022-12-10] MEDS: BUDESONIDE 0.5 MG/2 ML INH SUSP VIAL NEB SCH ×2 (08:23→20:25)
[2022-12-10] MEDS: METOPROLOL TARTRATE 25 MG TABLET (FP) GT SCH ×2 (09:46→21:37)
[2022-12-10] MEDS: DOXAZOSIN MESYLATE 1 MG TABLET GT SCH (09:46)
[2022-12-10] MEDS: amLODIPine BESYLATE 2.5 MG TABLET (FP) GT SCH (09:46)
[2022-12-10] MEDS: methylPREDNISolone NA SUCC 40 MG/1 ML VIAL IVPUSH SCH (09:46)
[2022-12-10] MEDS: CHOLECALCIFEROL (VIT D3) 1,000 UNIT (25 MCG) TABLET GT SCH (09:46)
[2022-12-10] MEDS: ASCORBIC ACID 500 MG TABLET (FP) GT SCH (09:46)
[2022-12-10] MEDS: AMINO ACIDS/PROTEIN HYDROLYS 30 ML LIQUID.PKT GT SCH (09:47)
[2022-12-10] MEDS: carBAMazepine 100 MG/5 ML UNIT-DOSE CUP GT SCH ×2 (09:47→21:38)
[2022-12-10] MEDS: FAMOTIDINE 40 MG/5 ML ORAL SUSPENSION GT SCH ×2 (09:47→21:37)
[2022-12-10] MEDS: POLYETHYLENE GLYCOL (HEALTHYLAX) 3350 17 GM PACKET GT SCH ×2 (09:47→21:36)
[2022-12-10] MEDS: levETIRAcetam 500 MG/5 ML ORAL SOLUTION (UNIT-DOSE CUPS) GT SCH ×2 (09:48→21:38)
[2022-12-10] MEDS: ENOXAPARIN NA (PORCINE) 30 MG/0.3 ML DISP.SYRIN SQ SCH (11:29)
[2022-12-10] MEDS: GLYCOPYRROLATE 1 MG TABLET GT SCH (21:37)
[2022-12-10] MEDS: CHLORHEXIDINE GLUCONATE 4% CLEANSER FOR DECOLONIZATION TP SCH (21:38)
[2022-12-11] MEDS: PIPERACILLIN/TAZOB 3.375 GM 3.375 GM in DEXTROSE 5%-WATER - 50 ML IVPB SCH ×3 (02:54→17:48)
[2022-12-11] MEDS: clonazePAM 0.5 MG TABLET GT SCH ×3 (05:09→21:57)
[2022-12-11] MEDS: BUDESONIDE 0.5 MG/2 ML INH SUSP VIAL NEB SCH ×2 (07:20→21:43)
[2022-12-11 07:43] LABS: HEMATOCRIT 34.3 % (35.4-49); HEMOGLOBIN 11.7 GM/dL (11.7-16.9); MCHC 34.1 g/dl (32.0-35.9); MEAN CELL VOLUME 85.1 fl (80-96); MEAN PLT VOLUME 6.6 fl (7.5-11.1); PLATELET COUNT 674 10^3/uL (134-434); RBC 4.03 M/mm3 (4.00-5.60); RDW 15.9 % (11.9-15.9); WHITE BLOOD COUNT 7.6 K/mm3 (4.0-10.0)
[2022-12-11 08:12] LABS: BLOOD UREA NITROGEN 19.9 mg/dL (7-18); MAGNESIUM 2.4 mg/dL (1.8-2.4)
[2022-12-11 08:14] LABS: CREATININE 0.4 mg/dL (0.55-1.3); PHOSPHOROUS 3.4 mg/dL (2.5-4.9)
[2022-12-11] MEDS: POLYETHYLENE GLYCOL (HEALTHYLAX) 3350 17 GM PACKET GT SCH ×2 (09:11→21:56)
[2022-12-11] MEDS: AMINO ACIDS/PROTEIN HYDROLYS 30 ML LIQUID.PKT GT SCH (09:12)
[2022-12-11] MEDS: levETIRAcetam 500 MG/5 ML ORAL SOLUTION (UNIT-DOSE CUPS) GT SCH ×2 (09:13→21:57)
[2022-12-11] MEDS: SCOPOLAMINE HYDROBROMIDE 1 PATCH PATCH.TD72 TD SCH (09:13)
[2022-12-11] MEDS: CHOLECALCIFEROL (VIT D3) 1,000 UNIT (25 MCG) TABLET GT SCH (09:13)
[2022-12-11] MEDS: amLODIPine BESYLATE 2.5 MG TABLET (FP) GT SCH (09:13)
[2022-12-11] MEDS: methylPREDNISolone NA SUCC 40 MG/1 ML VIAL IVPUSH SCH (09:18)
[2022-12-11] MEDS: METOPROLOL TARTRATE 25 MG TABLET (FP) GT SCH ×2 (09:19→21:58)
[2022-12-11] MEDS: ASCORBIC ACID 500 MG TABLET (FP) GT SCH (09:20)
[2022-12-11] MEDS: carBAMazepine 100 MG/5 ML UNIT-DOSE CUP GT SCH ×2 (09:22→21:57)
[2022-12-11] MEDS: FAMOTIDINE 40 MG/5 ML ORAL SUSPENSION GT SCH ×2 (09:25→21:58)
[2022-12-11] MEDS: DOXAZOSIN MESYLATE 1 MG TABLET GT SCH (09:26)
[2022-12-11] MEDS: ENOXAPARIN NA (PORCINE) 30 MG/0.3 ML DISP.SYRIN SQ SCH (13:41)
[2022-12-11] MEDS: CHLORHEXIDINE GLUCONATE 4% CLEANSER FOR DECOLONIZATION TP SCH (21:57)
[2022-12-11] MEDS: GLYCOPYRROLATE 1 MG TABLET GT SCH (21:58)
[2022-12-12] MEDS: PIPERACILLIN/TAZOB 3.375 GM 3.375 GM in DEXTROSE 5%-WATER - 50 ML IVPB SCH (02:20)
[2022-12-12] MEDS: clonazePAM 0.5 MG TABLET GT SCH ×3 (05:15→21:32)
[2022-12-12 07:10] LABS: HEMATOCRIT 32.2 % (35.4-49); MCH 29.3 pg (25.7-33.7); MCHC 34.2 g/dl (32.0-35.9); MEAN CELL VOLUME 85.7 fl (80-96); MEAN PLT VOLUME 7.2 fl (7.5-11.1); PLATELET COUNT 647 10^3/uL (134-434); RBC 3.75 M/mm3 (4.00-5.60); RDW 15.7 % (11.9-15.9); WHITE BLOOD COUNT 6.7 K/mm3 (4.0-10.0)
[2022-12-12 07:30] LABS: CALCIUM 8.9 mg/dL (8.5-10.1)
[2022-12-12 07:32] LABS: BLOOD UREA NITROGEN 18.4 mg/dL (7-18); MAGNESIUM 2.6 mg/dL (1.8-2.4)
[2022-12-12 07:35] LABS: CREATININE 0.4 mg/dL (0.55-1.3); PHOSPHOROUS 3.6 mg/dL (2.5-4.9)
[2022-12-12] MEDS: BUDESONIDE 0.5 MG/2 ML INH SUSP VIAL NEB SCH ×2 (07:51→20:53)
[2022-12-12] MEDS: AMINO ACIDS/PROTEIN HYDROLYS 30 ML LIQUID.PKT GT SCH (08:35)
[2022-12-12] MEDS: KCL 10 MEQ IVPB 10 MEQ/100 ML INFUS.BAG IVPB SCH ×2 (08:44→10:59)
[2022-12-12] MEDS: POLYETHYLENE GLYCOL (HEALTHYLAX) 3350 17 GM PACKET GT SCH ×2 (09:08→21:31)
[2022-12-12] MEDS: methylPREDNISolone NA SUCC 40 MG/1 ML VIAL IVPUSH SCH (09:08)
[2022-12-12] MEDS: levETIRAcetam 500 MG/5 ML ORAL SOLUTION (UNIT-DOSE CUPS) GT SCH ×2 (09:09→21:32)
[2022-12-12] MEDS: ENOXAPARIN NA (PORCINE) 30 MG/0.3 ML DISP.SYRIN SQ SCH (09:09)
[2022-12-12] MEDS: carBAMazepine 100 MG/5 ML UNIT-DOSE CUP GT SCH ×2 (09:10→21:31)
[2022-12-12] MEDS: DOXAZOSIN MESYLATE 1 MG TABLET GT SCH (09:11)
[2022-12-12] MEDS: amLODIPine BESYLATE 2.5 MG TABLET (FP) GT SCH (09:11)
[2022-12-12] MEDS: METOPROLOL TARTRATE 25 MG TABLET (FP) GT SCH ×2 (09:11→21:32)
[2022-12-12] MEDS: ASCORBIC ACID 500 MG TABLET (FP) GT SCH (09:12)
[2022-12-12] MEDS: FAMOTIDINE 40 MG/5 ML ORAL SUSPENSION GT SCH ×2 (09:12→21:32)
[2022-12-12] MEDS: CHOLECALCIFEROL (VIT D3) 1,000 UNIT (25 MCG) TABLET GT SCH (09:13)
[2022-12-12] MEDS: CHLORHEXIDINE GLUCONATE 4% CLEANSER FOR DECOLONIZATION TP SCH (21:32)
[2022-12-12] MEDS: GLYCOPYRROLATE 1 MG TABLET GT SCH (21:32)
[2022-12-13] MEDS: clonazePAM 0.5 MG TABLET GT SCH ×3 (05:35→22:04)
[2022-12-13 07:00] LABS: HEMATOCRIT 30.2 % (35.4-49); HEMOGLOBIN 10.4 GM/dL (11.7-16.9); MCH 29.9 pg (25.7-33.7); MCHC 34.4 g/dl (32.0-35.9); MEAN CELL VOLUME 86.8 fl (80-96); MEAN PLT VOLUME 6.8 fl (7.5-11.1); PLATELET COUNT 623 10^3/uL (134-434); RBC 3.48 M/mm3 (4.00-5.60); RDW 15.6 % (11.9-15.9); WHITE BLOOD COUNT 7.3 K/mm3 (4.0-10.0)
[2022-12-13 07:21] LABS: CALCIUM 8.3 mg/dL (8.5-10.1)
[2022-12-13 07:22] LABS: BLOOD UREA NITROGEN 15.7 mg/dL (7-18); MAGNESIUM 2.3 mg/dL (1.8-2.4)
[2022-12-13 07:25] LABS: CREATININE 0.4 mg/dL (0.55-1.3); PHOSPHOROUS 3.9 mg/dL (2.5-4.9)
[2022-12-13] MEDS: BUDESONIDE 0.5 MG/2 ML INH SUSP VIAL NEB SCH ×2 (07:25→20:41)
[2022-12-13] MEDS: POLYETHYLENE GLYCOL (HEALTHYLAX) 3350 17 GM PACKET GT SCH ×2 (09:37→20:59)
[2022-12-13] MEDS: METOPROLOL TARTRATE 25 MG TABLET (FP) GT SCH ×2 (10:00→22:04)
[2022-12-13] MEDS: carBAMazepine 100 MG/5 ML UNIT-DOSE CUP GT SCH ×2 (10:00→22:06)
[2022-12-13] MEDS: DOXAZOSIN MESYLATE 1 MG TABLET GT SCH (10:00)
[2022-12-13] MEDS: predniSONE 20 MG TABLET (UD) GT SCH (10:00)
[2022-12-13] MEDS: AMINO ACIDS/PROTEIN HYDROLYS 30 ML LIQUID.PKT GT SCH (10:00)
[2022-12-13] MEDS: levETIRAcetam 500 MG/5 ML ORAL SOLUTION (UNIT-DOSE CUPS) GT SCH ×2 (10:00→22:04)
[2022-12-13] MEDS: ENOXAPARIN NA (PORCINE) 30 MG/0.3 ML DISP.SYRIN SQ SCH (10:01)
[2022-12-13] MEDS: amLODIPine BESYLATE 2.5 MG TABLET (FP) GT SCH (10:01)
[2022-12-13] MEDS: ASCORBIC ACID 500 MG TABLET (FP) GT SCH (10:01)
[2022-12-13] MEDS: FAMOTIDINE 40 MG/5 ML ORAL SUSPENSION GT SCH ×2 (10:01→22:05)
[2022-12-13] MEDS: CHOLECALCIFEROL (VIT D3) 1,000 UNIT (25 MCG) TABLET GT SCH (10:02)
[2022-12-13] MEDS ORDERED: ACETAMINOPHEN 1000 MG/100 ML BAG IVPB ONE (20:16)
[2022-12-13] MEDS: SCOPOLAMINE HYDROBROMIDE 1 PATCH PATCH.TD72 TD SCH (20:59)
[2022-12-13] MEDS: GLYCOPYRROLATE 1 MG TABLET GT SCH (22:05)
[2022-12-13] MEDS: CHLORHEXIDINE GLUCONATE 4% CLEANSER FOR DECOLONIZATION TP SCH (22:05)
[2022-12-14] MEDS: clonazePAM 0.5 MG TABLET GT SCH ×3 (05:19→21:32)
[2022-12-14] MEDS: BUDESONIDE 0.5 MG/2 ML INH SUSP VIAL NEB SCH ×2 (07:15→20:35)
[2022-12-14] MEDS ORDERED: TUBE FEED DECLOGGING SOLUTION 12,000 UNITS GT SCH (08:00)
[2022-12-14] MEDS: SCOPOLAMINE HYDROBROMIDE 1 PATCH PATCH.TD72 TD SCH (09:59)
[2022-12-14] MEDS: AMINO ACIDS/PROTEIN HYDROLYS 30 ML LIQUID.PKT GT SCH (09:59)
[2022-12-14] MEDS: TUBE FEED DECLOGGING SOLUTION 12,000 UNITS GT SCH ×3 (09:59→17:14)
[2022-12-14] MEDS: DOXAZOSIN MESYLATE 1 MG TABLET GT SCH (09:59)
[2022-12-14] MEDS: carBAMazepine 100 MG/5 ML UNIT-DOSE CUP GT SCH ×2 (10:00→21:32)
[2022-12-14] MEDS: POLYETHYLENE GLYCOL (HEALTHYLAX) 3350 17 GM PACKET GT SCH ×2 (10:00→21:31)
[2022-12-14] MEDS: amLODIPine BESYLATE 2.5 MG TABLET (FP) GT SCH (10:00)
[2022-12-14] MEDS: predniSONE 20 MG TABLET (UD) GT SCH (10:00)
[2022-12-14] MEDS: ASCORBIC ACID 500 MG TABLET (FP) GT SCH (10:00)
[2022-12-14] MEDS: levETIRAcetam 500 MG/5 ML ORAL SOLUTION (UNIT-DOSE CUPS) GT SCH ×2 (10:00→21:31)
[2022-12-14] MEDS: CHOLECALCIFEROL (VIT D3) 1,000 UNIT (25 MCG) TABLET GT SCH (10:01)
[2022-12-14] MEDS: FAMOTIDINE 40 MG/5 ML ORAL SUSPENSION GT SCH ×2 (10:01→21:32)
[2022-12-14] MEDS: ENOXAPARIN NA (PORCINE) 30 MG/0.3 ML DISP.SYRIN SQ SCH (10:01)
[2022-12-14] MEDS: METOPROLOL TARTRATE 25 MG TABLET (FP) GT SCH (10:01)
[2022-12-14 13:56] LABS: HEMATOCRIT 31.5 % (35.4-49); HEMOGLOBIN 10.8 GM/dL (11.7-16.9); MCH 29.6 pg (25.7-33.7); MCHC 34.2 g/dl (32.0-35.9); MEAN CELL VOLUME 86.3 fl (80-96); MEAN PLT VOLUME 7.2 fl (7.5-11.1); PLATELET COUNT 535 10^3/uL (134-434); RBC 3.65 M/mm3 (4.00-5.60); RDW 15.9 % (11.9-15.9); WHITE BLOOD COUNT 9.9 K/mm3 (4.0-10.0)
[2022-12-14 14:12] LABS: CALCIUM 8.2 mg/dL (8.5-10.1); MAGNESIUM 2.3 mg/dL (1.8-2.4)
[2022-12-14 14:15] LABS: CREATININE 0.3 mg/dL (0.55-1.3); PHOSPHOROUS 3.6 mg/dL (2.5-4.9)
[2022-12-14] MEDS: CHLORHEXIDINE GLUCONATE 4% CLEANSER FOR DECOLONIZATION TP SCH (21:31)
[2022-12-14] MEDS: GLYCOPYRROLATE 1 MG TABLET GT SCH (21:32)
[2022-12-15] MEDS: clonazePAM 0.5 MG TABLET GT SCH ×3 (06:06→22:06)
[2022-12-15 07:25] LABS: BASO % 0.4 % (0-2.0); EOS % 1.8 % (0-4.5); HEMATOCRIT 30.1 % (35.4-49); HEMOGLOBIN 10.6 GM/dL (11.7-16.9); LYMPH % 14.5 % (8-40); MCH 30.1 pg (25.7-33.7); MCHC 35.1 g/dl (32.0-35.9); MEAN CELL VOLUME 85.7 fl (80-96); MEAN PLT VOLUME 6.8 fl (7.5-11.1); MONO % 7.2 % (3.8-10.2); NEUT % 76.1 % (42.8-82.8); PLATELET COUNT 517 10^3/uL (134-434); RBC 3.52 M/mm3 (4.00-5.60); RDW 15.8 % (11.9-15.9)
[2022-12-15 07:43] LABS: ALBUMIN 2.4 g/dl (3.4-5.0); MAGNESIUM 2.1 mg/dL (1.8-2.4)
[2022-12-15 07:46] LABS: CREATININE 0.3 mg/dL (0.55-1.3)
[2022-12-15 07:48] LABS: BILIRUBIN,TOTAL 0.2 mg/dL (0.2-1); TOT PROT 6.4 g/dl (6.4-8.2)
[2022-12-15] MEDS: BUDESONIDE 0.5 MG/2 ML INH SUSP VIAL NEB SCH ×2 (08:38→20:45)
[2022-12-15] MEDS: ASCORBIC ACID 500 MG TABLET (FP) GT SCH (10:07)
[2022-12-15] MEDS: levETIRAcetam 500 MG/5 ML ORAL SOLUTION (UNIT-DOSE CUPS) GT SCH ×2 (10:07→22:06)
[2022-12-15] MEDS: FAMOTIDINE 40 MG/5 ML ORAL SUSPENSION GT SCH ×2 (10:07→22:07)
[2022-12-15] MEDS: TUBE FEED DECLOGGING SOLUTION 12,000 UNITS GT SCH ×3 (10:07→16:56)
[2022-12-15] MEDS: CHOLECALCIFEROL (VIT D3) 1,000 UNIT (25 MCG) TABLET GT SCH (10:07)
[2022-12-15] MEDS: carBAMazepine 100 MG/5 ML UNIT-DOSE CUP GT SCH ×2 (10:08→22:07)
[2022-12-15] MEDS: AMINO ACIDS/PROTEIN HYDROLYS 30 ML LIQUID.PKT GT SCH (10:08)
[2022-12-15] MEDS: DOXAZOSIN MESYLATE 1 MG TABLET GT SCH (10:09)
[2022-12-15] MEDS: POLYETHYLENE GLYCOL (HEALTHYLAX) 3350 17 GM PACKET GT SCH ×2 (10:09→22:06)
[2022-12-15] MEDS: predniSONE 20 MG TABLET (UD) GT SCH (10:09)
[2022-12-15] MEDS: ENOXAPARIN NA (PORCINE) 30 MG/0.3 ML DISP.SYRIN SQ SCH (10:09)
[2022-12-15] MEDS: amLODIPine BESYLATE 2.5 MG TABLET (FP) GT SCH (10:10)
[2022-12-15] MEDS: CHLORHEXIDINE GLUCONATE 4% CLEANSER FOR DECOLONIZATION TP SCH (22:06)
[2022-12-15] MEDS: GLYCOPYRROLATE 1 MG TABLET GT SCH (22:33)
[2022-12-16] MEDS: clonazePAM 0.5 MG TABLET GT SCH ×3 (05:18→21:29)
[2022-12-16 07:25] LABS: BASO % 0.6 % (0-2.0); EOS % 1.9 % (0-4.5); HEMATOCRIT 31.3 % (35.4-49); HEMOGLOBIN 10.7 GM/dL (11.7-16.9); LYMPH % 28.4 % (8-40); MCH 29.4 pg (25.7-33.7); MEAN CELL VOLUME 86.3 fl (80-96); MEAN PLT VOLUME 7.5 fl (7.5-11.1); MONO % 5.9 % (3.8-10.2); NEUT % 63.2 % (42.8-82.8); PLATELET COUNT 448 10^3/uL (134-434); RBC 3.63 M/mm3 (4.00-5.60); RDW 16.2 % (11.9-15.9); WHITE BLOOD COUNT 7.1 K/mm3 (4.0-10.0)
[2022-12-16 07:51] LABS: CALCIUM 8.3 mg/dL (8.5-10.1)
[2022-12-16 07:52] LABS: ALBUMIN 2.4 g/dl (3.4-5.0); BLOOD UREA NITROGEN 8.9 mg/dL (7-18); MAGNESIUM 2.1 mg/dL (1.8-2.4)
[2022-12-16 07:55] LABS: CREATININE 0.3 mg/dL (0.55-1.3); PHOSPHOROUS 3.1 mg/dL (2.5-4.9)
[2022-12-16 07:56] LABS: BILIRUBIN,TOTAL 0.3 mg/dL (0.2-1); TOT PROT 6.3 g/dl (6.4-8.2)
[2022-12-16] MEDS: BUDESONIDE 0.5 MG/2 ML INH SUSP VIAL NEB SCH ×2 (08:18→20:30)
[2022-12-16] MEDS: TUBE FEED DECLOGGING SOLUTION 12,000 UNITS GT SCH ×3 (09:49→17:14)
[2022-12-16] MEDS: AMINO ACIDS/PROTEIN HYDROLYS 30 ML LIQUID.PKT GT SCH (09:50)
[2022-12-16] MEDS: ENOXAPARIN NA (PORCINE) 30 MG/0.3 ML DISP.SYRIN SQ SCH (09:50)
[2022-12-16] MEDS: carBAMazepine 100 MG/5 ML UNIT-DOSE CUP GT SCH ×2 (09:51→22:21)
[2022-12-16] MEDS: levETIRAcetam 500 MG/5 ML ORAL SOLUTION (UNIT-DOSE CUPS) GT SCH ×2 (09:51→21:29)
[2022-12-16] MEDS: amLODIPine BESYLATE 2.5 MG TABLET (FP) GT SCH (09:52)
[2022-12-16] MEDS: FAMOTIDINE 40 MG/5 ML ORAL SUSPENSION GT SCH ×2 (09:52→21:29)
[2022-12-16] MEDS: predniSONE 20 MG TABLET (UD) GT SCH (09:52)
[2022-12-16] MEDS: DOXAZOSIN MESYLATE 1 MG TABLET GT SCH (09:52)
[2022-12-16] MEDS: CHOLECALCIFEROL (VIT D3) 1,000 UNIT (25 MCG) TABLET GT SCH (09:52)
[2022-12-16] MEDS: POLYETHYLENE GLYCOL (HEALTHYLAX) 3350 17 GM PACKET GT SCH ×2 (09:53→21:28)
[2022-12-16] MEDS: ASCORBIC ACID 500 MG TABLET (FP) GT SCH (09:53)
[2022-12-16] MEDS: CHLORHEXIDINE GLUCONATE 4% CLEANSER FOR DECOLONIZATION TP SCH (21:28)
[2022-12-16] MEDS: GLYCOPYRROLATE 1 MG TABLET GT SCH (21:30)
[2022-12-17] MEDS: clonazePAM 0.5 MG TABLET GT SCH ×2 (05:42→14:46)
[2022-12-17] MEDS: BUDESONIDE 0.5 MG/2 ML INH SUSP VIAL NEB SCH (07:15)
[2022-12-17 08:02] VITALS: RESP 18
[2022-12-17 08:07] LABS: BASO % 0.5 % (0-2.0); EOS % 1.3 % (0-4.5); LYMPH % 42.3 % (8-40); MCH 29.2 pg (25.7-33.7); MCHC 33.5 g/dl (32.0-35.9); MEAN CELL VOLUME 87.3 fl (80-96); MEAN PLT VOLUME 7.2 fl (7.5-11.1); MONO % 7.8 % (3.8-10.2); NEUT % 48.1 % (42.8-82.8); PLATELET COUNT 458 10^3/uL (134-434); RBC 3.78 M/mm3 (4.00-5.60); RDW 16.1 % (11.9-15.9); WHITE BLOOD COUNT 8.5 K/mm3 (4.0-10.0)
[2022-12-17 08:14] LABS: CALCIUM 8.4 mg/dL (8.5-10.1)
[2022-12-17 08:15] LABS: ALBUMIN 2.6 g/dl (3.4-5.0); BLOOD UREA NITROGEN 13.7 mg/dL (7-18); MAGNESIUM 2.2 mg/dL (1.8-2.4)
[2022-12-17 08:16] LABS: TOT PROT 6.8 g/dl (6.4-8.2)
[2022-12-17 08:18] LABS: CREATININE 0.3 mg/dL (0.55-1.3); PHOSPHOROUS 4.4 mg/dL (2.5-4.9)
[2022-12-17 08:22] LABS: BILIRUBIN,TOTAL 0.2 mg/dL (0.2-1)
[2022-12-17] MEDS: POLYETHYLENE GLYCOL (HEALTHYLAX) 3350 17 GM PACKET GT SCH (09:35)
[2022-12-17] MEDS: CHOLECALCIFEROL (VIT D3) 1,000 UNIT (25 MCG) TABLET GT SCH (09:36)
[2022-12-17] MEDS: amLODIPine BESYLATE 2.5 MG TABLET (FP) GT SCH (09:36)
[2022-12-17] MEDS: levETIRAcetam 500 MG/5 ML ORAL SOLUTION (UNIT-DOSE CUPS) GT SCH (09:36)
[2022-12-17] MEDS: FAMOTIDINE 40 MG/5 ML ORAL SUSPENSION GT SCH (09:37)
[2022-12-17] MEDS: ENOXAPARIN NA (PORCINE) 30 MG/0.3 ML DISP.SYRIN SQ SCH (09:37)
[2022-12-17] MEDS: AMINO ACIDS/PROTEIN HYDROLYS 30 ML LIQUID.PKT GT SCH (09:37)
[2022-12-17] MEDS: SCOPOLAMINE HYDROBROMIDE 1 PATCH PATCH.TD72 TD SCH (09:37)
[2022-12-17] MEDS: carBAMazepine 100 MG/5 ML UNIT-DOSE CUP GT SCH (09:38)
[2022-12-17] MEDS: ASCORBIC ACID 500 MG TABLET (FP) GT SCH (09:39)
[2022-12-17] MEDS: DOXAZOSIN MESYLATE 1 MG TABLET GT SCH (09:39)
[2022-12-17] MEDS ORDERED: predniSONE 10 MG TABLET (UD) GT SCH (10:00)
[2022-12-17 13:02] VITALS: TEMP 98.5
[2022-12-17 16:04] VITALS: BP 113/68; PULSE 112
== END 2022-12-17 16:30 | DRG 720 ==
LOC: JER 12:49 → JERBED 13:20 → J8W 21:04 → JICU 23:17 → J4S 11-26 16:18 → JICU 12-03 22:53 → J2W 12-10 18:21
PROVIDERS: ADMIT Internal Medicine; ATTEND Internal Medicine
PROC: 05HD33Z Insertion of Infusion Device into Right Cephalic Vein, Percutaneous Approach (ICD-10-PCS; 2022-11-25)
PROC: 5A1955Z Respiratory Ventilation, Greater than 96 Consecutive Hours (ICD-10-PCS; principal; 2022-12-03)
PROC: 0BH17EZ Insertion of Endotracheal Airway into Trachea, Via Natural or Artificial Opening (ICD-10-PCS; 2022-12-03)
DX: A41.9 Sepsis, unspecified organism (principal); G82.50 Quadriplegia, unspecified; J69.0 Pneumonitis due to inhalation of food and vomit; J96.01 Acute respiratory failure with hypoxia; J96.02 Acute respiratory failure with hypercapnia; L89.152 Pressure ulcer of sacral region, stage 2; R56.9 Unspecified convulsions; T68.XXXA Hypothermia, initial encounter; E87.1 Hypo-osmolality and hyponatremia; J45.901 Unspecified asthma with (acute) exacerbation; Q02 Microcephaly; R33.9 Retention of urine, unspecified; E87.20 Acidosis, unspecified; R64 Cachexia; Z68.1 Body mass index [BMI] 19.9 or less, adult; R31.0 Gross hematuria; E87.3 Alkalosis; R00.0 Tachycardia, unspecified
CPT/HCPCS: 0241U-QW; 31500; 36415; 36600; 71045-TC-FY; 71275-TC; 76775-TC; 76856-TC; 80048; 80053; 81003; 82308; 82803; 82962; 83605; 83735; 83880; 84100; 84484; 85025; 85027; 85379; 85610; 85730; 86850; 86900; 86901; 87040; 87070; 87086; 87186; 87205; 93005; 93010; 93970-TC; 94002; 94640; 99285-25; C9803-CS; J1100; Q9967; U0003; U0005

== ENCOUNTER 2023-01-06 10:00 | Inpatient (IN) | payer OTHER ==
[2023-01-06] MEDS ORDERED: GLUCAGON 1 MG KIT IVPUSH ONE (11:51)
[2023-01-06 12:27] LABS: CHLORIDE 101 mmol/L (98-107); POTASSIUM 4.7 mmol/L (3.5-5.1); SODIUM 133 mmol/L (136-145)
[2023-01-06 12:29] LABS: CALCIUM 8.3 mg/dL (8.5-10.1)
[2023-01-06 12:30] LABS: ANION GAP 5 MMOL/L (8-16); BLOOD UREA NITROGEN 7.2 mg/dL (7-18); CO2 27 mmol/L (21-32)
[2023-01-06 12:33] LABS: CREATININE 0.2 mg/dL (0.55-1.3); SGOT/AST 26 U/L (15-37); SGPT/ALT 38 U/L (13-61)
[2023-01-06 12:35] LABS: BILIRUBIN,TOTAL 0.2 mg/dL (0.2-1)
[2023-01-06 12:36] LABS: ALK PHOS 94 U/L (45-117)
[2023-01-06 12:37] LABS: GLUCOSE,RANDOM 38 mg/dL (74-106)
[2023-01-06] MEDS ORDERED: DEXTROSE 50%-WATER - 25 GM/50 ML VIAL IVPUSH ONE (12:39)
[2023-01-06] MEDS ORDERED: DEXTROSE 50%-WATER 25 GM/50 ML DISP.SYRIN ONE (12:41)
[2023-01-06] MEDS ORDERED: SODIUM CHLORIDE 1,000 ML IV STA (15:21)
[2023-01-06 15:56] LABS: POTASSIUM 3.6 mmol/L (3.5-5.1)
[2023-01-06 15:58] LABS: CALCIUM 8.9 mg/dL (8.5-10.1)
[2023-01-06 15:59] LABS: ALBUMIN 3.1 g/dl (3.4-5.0); BLOOD UREA NITROGEN 7.9 mg/dL (7-18)
[2023-01-06 16:01] LABS: BASO % 0.4 % (0-2.0); EOS % 0.8 % (0-4.5); HEMATOCRIT 31.7 % (35.4-49); HEMOGLOBIN 10.7 GM/dL (11.7-16.9); LYMPH % 27.5 % (8-40); MCH 28.7 pg (25.7-33.7); MCHC 33.7 g/dl (32.0-35.9); MEAN CELL VOLUME 85.2 fl (80-96); MEAN PLT VOLUME 10.2 fl (7.5-11.1); MONO % 1.6 % (3.8-10.2); NEUT % 69.7 % (42.8-82.8); PLATELET COUNT 179 10^3/uL (134-434); RBC 3.72 M/mm3 (4.00-5.60); RDW 16.2 % (11.9-15.9); WHITE BLOOD COUNT 5.8 K/mm3 (4.0-10.0)
[2023-01-06 16:02] LABS: CREATININE 0.4 mg/dL (0.55-1.3)
[2023-01-06 16:03] LABS: URINE APPEARANCE CLEAR; URINE BILIRUBIN NEGATIVE (NEGATIVE); URINE COLOR YELLOW; URINE GLUCOSE (UA) TRACE (NEGATIVE); URINE KETONE NEGATIVE (NEGATIVE); URINE LEUK ESTERASE NEGATIVE (NEGATIVE); URINE NITRITE NEGATIVE (NEGATIVE); URINE PROTEIN NEGATIVE (NEGATIVE); URINE UROBILINOGEN 0.2 mg/dL (0.2-1.0)
[2023-01-06 16:03] LABS: TOT PROT 7.2 g/dl (6.4-8.2)
[2023-01-06 16:04] LABS: BILIRUBIN,TOTAL 0.2 mg/dL (0.2-1)
[2023-01-06 16:09] LABS: PLATELET ESTIMATE DECREASED
[2023-01-06 16:09] LABS: LACTIC ACID 2.6 mmol/L (0.4-2.0)
[2023-01-06] MEDS ORDERED: PIPERACILLIN/TAZOB 3.375 GM 3.375 GM in DEXTROSE 5%-WATER - 50 ML IVPB ONE (16:27)
[2023-01-06] MEDS ORDERED: VANCOMYCIN 1 GM in D5W (PRE-DOCKED) 1,000 MG/250 ML (RESTRICTED TO ID ONLY IVPB ONE (16:27)
[2023-01-06] MEDS ORDERED: PIPERACILLIN/TAZOB 3.375 GM 3.375 GM/50 ML BAG IVPB ONE (16:35)
[2023-01-06] MEDS ORDERED: VANCOMYCIN/WATER FOR INJ (PEG) 1,000 MG/200 ML BAG IVPB ONE (16:35)
[2023-01-06] MEDS ORDERED: levETIRAcetam 500 MG/5 ML INJECTION VIAL IVPB ONE ×2 (17:07→17:17)
[2023-01-06] MEDS ORDERED: ACETAMINOPHEN INJECTION 100 ML IVPB ONE (17:15)
[2023-01-06] MEDS ORDERED: ACETAMINOPHEN 1000 MG/100 ML BAG IVPB ONE (17:17)
[2023-01-06] MEDS ORDERED: LORazepam 2 MG/ML SDV VIAL IVPUSH ONE ×2 (17:17→17:21)
[2023-01-06] MEDS ORDERED: SODIUM PHOSPHATE/NA BIPHOS 133 ML ENEMA PR ONE (19:02)
[2023-01-06] MEDS ORDERED: SODIUM CHLORIDE NASAL SPRAY 44 ML BOTTLE NS PRN (20:58)
[2023-01-06] MEDS ORDERED: SCOPOLAMINE HYDROBROMIDE 1 PATCH PATCH.TD72 TD SCH (21:00)
[2023-01-06] MEDS ORDERED: PATIENT'S OWN MEDICATION (NON-FORMULARY) (Omeprazole Magnesium [Prilosec] 10 MG Suspdr.Pkt GT SCH (22:00)
[2023-01-06] MEDS: levETIRAcetam 500 MG/5 ML ORAL SOLUTION (UNIT-DOSE CUPS) GT SCH (23:31)
[2023-01-06] MEDS: clonazePAM 0.5 MG TABLET GT SCH (23:31)
[2023-01-06] MEDS: BACLOFEN 10 MG TABLET (FP) GT SCH (23:31)
[2023-01-06] MEDS: APIXABAN 2.5 MG TABLET GT SCH (23:32)
[2023-01-06] MEDS: POLYETHYLENE GLYCOL (HEALTHYLAX) 3350 17 GM PACKET GT SCH (23:33)
[2023-01-06] MEDS: carBAMazepine 100 MG/5 ML UNIT-DOSE CUP GT SCH (23:50)
[2023-01-06] MEDS: GLYCOPYRROLATE 2 MG TABLET GT SCH (23:50)
[2023-01-06] MEDS: BUDESONIDE 0.5 MG/2 ML INH SUSP VIAL NEB SCH (23:51)
[2023-01-06] MEDS: FAMOTIDINE 40 MG/5 ML ORAL SUSPENSION GT SCH (23:51)
[2023-01-07] MEDS: clonazePAM 0.5 MG TABLET GT SCH ×3 (06:16→22:43)
[2023-01-07] MEDS: FLUTICASONE PROP 0.05% 16 GM NASAL SPRAY NS SCH (06:56)
[2023-01-07 07:30] LABS: HEMATOCRIT 32.5 % (35.4-49); MCH 29.1 pg (25.7-33.7); MEAN CELL VOLUME 85.8 fl (80-96); PLATELET COUNT 233 10^3/uL (134-434); RBC 3.79 M/mm3 (4.00-5.60); RDW 16.1 % (11.9-15.9); WHITE BLOOD COUNT 7.3 K/mm3 (4.0-10.0)
[2023-01-07 07:48] LABS: ALBUMIN 2.9 g/dl (3.4-5.0); BLOOD UREA NITROGEN 5.8 mg/dL (7-18); CALCIUM 8.6 mg/dL (8.5-10.1)
[2023-01-07 07:51] LABS: CREATININE 0.3 mg/dL (0.55-1.3)
[2023-01-07 07:52] LABS: TOT PROT 6.6 g/dl (6.4-8.2)
[2023-01-07] MEDS: BUDESONIDE 0.5 MG/2 ML INH SUSP VIAL NEB SCH ×2 (07:59→22:18)
[2023-01-07 08:02] LABS: BILIRUBIN,TOTAL 0.3 mg/dL (0.2-1); MAGNESIUM 1.9 mg/dL (1.8-2.4)
[2023-01-07] MEDS: TAMSULOSIN HCL 0.4 MG CAP NR SCH (08:41)
[2023-01-07] MEDS: APIXABAN 2.5 MG TABLET GT SCH ×2 (09:51→22:42)
[2023-01-07] MEDS: POLYETHYLENE GLYCOL (HEALTHYLAX) 3350 17 GM PACKET GT SCH ×4 (09:51→22:46)
[2023-01-07] MEDS: SODIUM CHLORIDE 1 GM TABLET PEG SCH (09:51)
[2023-01-07] MEDS: levETIRAcetam 500 MG/5 ML ORAL SOLUTION (UNIT-DOSE CUPS) GT SCH ×2 (09:51→22:45)
[2023-01-07] MEDS: BACLOFEN 10 MG TABLET (FP) GT SCH ×4 (09:51→22:43)
[2023-01-07] MEDS: SCOPOLAMINE HYDROBROMIDE 1 PATCH PATCH.TD72 TD SCH (09:52)
[2023-01-07] MEDS: CHOLECALCIFEROL (VIT D3) 1,000 UNIT (25 MCG) TABLET GT SCH (09:52)
[2023-01-07] MEDS ORDERED: LACTULOSE 20 GM/30 ML UDC (FOR ORAL USE ONLY) PO ONE (09:59)
[2023-01-07] MEDS ORDERED: ENOXAPARIN NA (PORCINE) 30 MG/0.3 ML DISP.SYRIN SQ SCH (10:00)
[2023-01-07] MEDS: DEXTROSE 5%-NORMAL SALINE 1,000 ML IV SCH (11:22)
[2023-01-07] MEDS: CEFTRIAXONE 1 GM in DEXTROSE 5%-WATER - 50 ML IVPB ONE ×2 (13:20→13:40)
[2023-01-07] MEDS: carBAMazepine 100 MG/5 ML UNIT-DOSE CUP GT SCH ×2 (14:40→23:16)
[2023-01-07] MEDS: FAMOTIDINE 40 MG/5 ML ORAL SUSPENSION GT SCH (14:42)
[2023-01-08] MEDS: GLYCOPYRROLATE 2 MG TABLET GT SCH ×2 (00:50→22:02)
[2023-01-08] MEDS: FAMOTIDINE 40 MG/5 ML ORAL SUSPENSION GT SCH ×3 (00:52→21:56)
[2023-01-08] MEDS: POLYETHYLENE GLYCOL (HEALTHYLAX) 3350 17 GM PACKET GT SCH ×3 (05:57→22:01)
[2023-01-08] MEDS: FLUTICASONE PROP 0.05% 16 GM NASAL SPRAY NS SCH (05:57)
[2023-01-08] MEDS: clonazePAM 0.5 MG TABLET GT SCH ×3 (05:58→22:00)
[2023-01-08 07:31] LABS: HEMATOCRIT 29.7 % (35.4-49); HEMOGLOBIN 10.3 GM/dL (11.7-16.9); MCH 29.2 pg (25.7-33.7); MCHC 34.5 g/dl (32.0-35.9); MEAN CELL VOLUME 84.6 fl (80-96); MEAN PLT VOLUME 8.6 fl (7.5-11.1); PLATELET COUNT 192 10^3/uL (134-434); RBC 3.51 M/mm3 (4.00-5.60); RDW 15.9 % (11.9-15.9); WHITE BLOOD COUNT 4.9 K/mm3 (4.0-10.0)
[2023-01-08 07:36] LABS: POTASSIUM 3.4 mmol/L (3.5-5.1)
[2023-01-08 07:44] LABS: CALCIUM 8.1 mg/dL (8.5-10.1)
[2023-01-08 07:45] LABS: ALBUMIN 2.6 g/dl (3.4-5.0); MAGNESIUM 1.7 mg/dL (1.8-2.4)
[2023-01-08 07:48] LABS: CREATININE 0.2 mg/dL (0.55-1.3)
[2023-01-08 07:49] LABS: BILIRUBIN,TOTAL 0.5 mg/dL (0.2-1); TOT PROT 5.9 g/dl (6.4-8.2)
[2023-01-08 07:50] LABS: PHOSPHOROUS 2.8 mg/dL (2.5-4.9)
[2023-01-08] MEDS: BUDESONIDE 0.5 MG/2 ML INH SUSP VIAL NEB SCH ×2 (08:12→21:36)
[2023-01-08] MEDS: TAMSULOSIN HCL 0.4 MG CAP NR SCH (08:56)
[2023-01-08] MEDS: CHOLECALCIFEROL (VIT D3) 1,000 UNIT (25 MCG) TABLET GT SCH (10:42)
[2023-01-08] MEDS: BACLOFEN 10 MG TABLET (FP) GT SCH ×4 (10:42→21:59)
[2023-01-08] MEDS: APIXABAN 2.5 MG TABLET GT SCH ×2 (10:42→22:01)
[2023-01-08] MEDS: SODIUM CHLORIDE 1 GM TABLET PEG SCH (10:42)
[2023-01-08] MEDS: levETIRAcetam 500 MG/5 ML ORAL SOLUTION (UNIT-DOSE CUPS) GT SCH ×2 (10:43→21:50)
[2023-01-08] MEDS: DEXTROSE 5%-NORMAL SALINE 1,000 ML IV SCH ×2 (10:43→17:50)
[2023-01-08] MEDS: carBAMazepine 100 MG/5 ML UNIT-DOSE CUP GT SCH ×2 (10:44→21:54)
[2023-01-08] MEDS ORDERED: MAGNESIUM SULF 50% (8.12 MEQ/2 ML-1 GM VIAL) IVPB ONE (16:49)
[2023-01-08] MEDS ORDERED: POTASSIUM PHOSPHATE 30 MM in SODIUM CHLORIDE 500 ML IVPB ONE (16:49)
[2023-01-08] MEDS ORDERED: NAPH,MB-DB/K PH,MBDB POWDER PACKET GT ONE (17:40)
[2023-01-08] MEDS: KCL 10 MEQ IVPB 10 MEQ/100 ML INFUS.BAG IVPB SCH ×3 (21:50→22:55)
[2023-01-09] MEDS: POLYETHYLENE GLYCOL (HEALTHYLAX) 3350 17 GM PACKET GT SCH ×3 (06:37→21:48)
[2023-01-09] MEDS: clonazePAM 0.5 MG TABLET GT SCH ×3 (06:37→21:43)
[2023-01-09] MEDS: BUDESONIDE 0.5 MG/2 ML INH SUSP VIAL NEB SCH ×2 (07:30→22:00)
[2023-01-09 07:38] LABS: HEMATOCRIT 34.2 % (35.4-49); HEMOGLOBIN 11.2 GM/dL (11.7-16.9); MCH 27.9 pg (25.7-33.7); MCHC 32.7 g/dl (32.0-35.9); MEAN CELL VOLUME 85.5 fl (80-96); MEAN PLT VOLUME 8.5 fl (7.5-11.1); PLATELET COUNT 215 10^3/uL (134-434); RDW 16.3 % (11.9-15.9); WHITE BLOOD COUNT 14.8 K/mm3 (4.0-10.0)
[2023-01-09] MEDS: ALBUTEROL SO4 2.5/IPRATROPIUM 0.5 INH SOL 3 ML VIAL.NEB. NEB PRN ×4 (07:40→20:00)
[2023-01-09 07:44] LABS: CHLORIDE 107 mmol/L (98-107); POTASSIUM 3.7 mmol/L (3.5-5.1); SODIUM 139 mmol/L (136-145)
[2023-01-09 07:46] LABS: ALBUMIN 2.6 g/dl (3.4-5.0); CALCIUM 8.5 mg/dL (8.5-10.1)
[2023-01-09 07:47] LABS: ANION GAP 8 MMOL/L (8-16); CO2 24 mmol/L (21-32); GLUCOSE,RANDOM 81 mg/dL (74-106); MAGNESIUM 2.2 mg/dL (1.8-2.4)
[2023-01-09 07:50] LABS: CREATININE 0.4 mg/dL (0.55-1.3); SGOT/AST 22 U/L (15-37); SGPT/ALT 35 U/L (13-61)
[2023-01-09 07:51] LABS: BILIRUBIN,TOTAL 0.2 mg/dL (0.2-1)
[2023-01-09 07:52] LABS: TOT PROT 6.2 g/dl (6.4-8.2)
[2023-01-09 07:53] LABS: ALK PHOS 98 U/L (45-117)
[2023-01-09 08:02] LABS: BLOOD UREA NITROGEN 1.2 mg/dL (7-18)
[2023-01-09] MEDS: TAMSULOSIN HCL 0.4 MG CAP NR SCH (09:30)
[2023-01-09] MEDS: APIXABAN 2.5 MG TABLET GT SCH ×2 (09:59→21:43)
[2023-01-09] MEDS: SODIUM CHLORIDE 1 GM TABLET PEG SCH (09:59)
[2023-01-09] MEDS: CHOLECALCIFEROL (VIT D3) 1,000 UNIT (25 MCG) TABLET GT SCH (09:59)
[2023-01-09] MEDS: BACLOFEN 10 MG TABLET (FP) GT SCH ×4 (10:00→21:57)
[2023-01-09] MEDS: carBAMazepine 100 MG/5 ML UNIT-DOSE CUP GT SCH ×2 (10:01→21:47)
[2023-01-09] MEDS: FAMOTIDINE 40 MG/5 ML ORAL SUSPENSION GT SCH ×2 (10:02→21:45)
[2023-01-09] MEDS: levETIRAcetam 500 MG/5 ML ORAL SOLUTION (UNIT-DOSE CUPS) GT SCH ×2 (10:02→21:43)
[2023-01-09] MEDS: FLUTICASONE PROP 0.05% 16 GM NASAL SPRAY NS SCH (14:31)
[2023-01-09 17:46] VITALS: BMI 19.5
[2023-01-09] MEDS: METOPROLOL TARTRATE 25 MG TABLET (FP) GT SCH (21:44)
[2023-01-09] MEDS: GLYCOPYRROLATE 1 MG TABLET GT SCH (22:07)
[2023-01-10] MEDS: D5-NS + 20 MEQ KCL - 20 MEQ/1,000 ML INFUS.BAG IV SCH ×2 (01:08→17:43)
[2023-01-10] MEDS: FLUTICASONE PROP 0.05% 16 GM NASAL SPRAY NS SCH (06:09)
[2023-01-10] MEDS: POLYETHYLENE GLYCOL (HEALTHYLAX) 3350 17 GM PACKET GT SCH ×3 (06:09→22:12)
[2023-01-10] MEDS: clonazePAM 0.5 MG TABLET GT SCH ×3 (06:09→22:14)
[2023-01-10] MEDS: BUDESONIDE 0.5 MG/2 ML INH SUSP VIAL NEB SCH ×2 (07:36→22:28)
[2023-01-10 08:16] LABS: HEMATOCRIT 33.9 % (35.4-49); HEMOGLOBIN 11.4 GM/dL (11.7-16.9); MCH 28.5 pg (25.7-33.7); MCHC 33.8 g/dl (32.0-35.9); MEAN CELL VOLUME 84.3 fl (80-96); MEAN PLT VOLUME 7.6 fl (7.5-11.1); PLATELET COUNT 273 10^3/uL (134-434); RBC 4.02 M/mm3 (4.00-5.60); RDW 15.7 % (11.9-15.9); WHITE BLOOD COUNT 7.4 K/mm3 (4.0-10.0)
[2023-01-10 08:34] LABS: POTASSIUM 3.6 mmol/L (3.5-5.1)
[2023-01-10 08:39] LABS: BLOOD UREA NITROGEN 4.8 mg/dL (7-18)
[2023-01-10 08:40] LABS: ALBUMIN 2.5 g/dl (3.4-5.0)
[2023-01-10 08:43] LABS: CREATININE 0.3 mg/dL (0.55-1.3)
[2023-01-10 08:44] LABS: TOT PROT 6.1 g/dl (6.4-8.2)
[2023-01-10 08:45] LABS: BILIRUBIN,TOTAL 0.4 mg/dL (0.2-1); CALCIUM 8.2 mg/dL (8.5-10.1)
[2023-01-10] MEDS: METOPROLOL TARTRATE 25 MG TABLET (FP) GT SCH ×2 (09:05→22:12)
[2023-01-10] MEDS: SODIUM CHLORIDE 1 GM TABLET PEG SCH (09:05)
[2023-01-10] MEDS: BACLOFEN 10 MG TABLET (FP) GT SCH ×4 (09:05→22:14)
[2023-01-10] MEDS: CHOLECALCIFEROL (VIT D3) 1,000 UNIT (25 MCG) TABLET GT SCH (09:05)
[2023-01-10] MEDS: TAMSULOSIN HCL 0.4 MG CAP NR SCH (09:06)
[2023-01-10] MEDS: carBAMazepine 100 MG/5 ML UNIT-DOSE CUP GT SCH ×2 (09:07→22:17)
[2023-01-10] MEDS: levETIRAcetam 500 MG/5 ML ORAL SOLUTION (UNIT-DOSE CUPS) GT SCH ×2 (09:07→22:11)
[2023-01-10] MEDS: APIXABAN 2.5 MG TABLET GT SCH ×2 (09:08→22:12)
[2023-01-10] MEDS: FAMOTIDINE 40 MG/5 ML ORAL SUSPENSION GT SCH ×2 (09:09→22:15)
[2023-01-10] MEDS: amLODIPine BESYLATE 2.5 MG TABLET (FP) GT SCH (09:12)
[2023-01-10] MEDS: SCOPOLAMINE HYDROBROMIDE 1 PATCH PATCH.TD72 TD SCH (11:00)
[2023-01-10] MEDS: ALBUTEROL SO4 2.5/IPRATROPIUM 0.5 INH SOL 3 ML VIAL.NEB. NEB PRN (20:10)
[2023-01-10] MEDS: GLYCOPYRROLATE 1 MG TABLET GT SCH (22:16)
[2023-01-11] MEDS: POLYETHYLENE GLYCOL (HEALTHYLAX) 3350 17 GM PACKET GT SCH ×3 (05:55→21:54)
[2023-01-11] MEDS: FLUTICASONE PROP 0.05% 16 GM NASAL SPRAY NS SCH (05:55)
[2023-01-11] MEDS: clonazePAM 0.5 MG TABLET GT SCH ×3 (05:55→21:52)
[2023-01-11] MEDS: BUDESONIDE 0.5 MG/2 ML INH SUSP VIAL NEB SCH ×2 (08:14→20:05)
[2023-01-11 08:42] LABS: BASO % 0.3 % (0-2.0); EOS % 1.4 % (0-4.5); HEMATOCRIT 30.8 % (35.4-49); HEMOGLOBIN 10.4 GM/dL (11.7-16.9); LYMPH % 25.8 % (8-40); MCH 28.7 pg (25.7-33.7); MCHC 33.7 g/dl (32.0-35.9); MEAN CELL VOLUME 85.1 fl (80-96); MEAN PLT VOLUME 8.1 fl (7.5-11.1); MONO % 14.9 % (3.8-10.2); NEUT % 57.6 % (42.8-82.8); PLATELET COUNT 268 10^3/uL (134-434); RBC 3.62 M/mm3 (4.00-5.60); WHITE BLOOD COUNT 6.9 K/mm3 (4.0-10.0)
[2023-01-11 08:45] LABS: ACTIVATED PTT 33.7 SECONDS (25.2-36.5); INR 1.36 (0.83-1.09); PROTHROMBIN TIME (PATIENT) 15.7 SEC (9.7-13.0)
[2023-01-11 08:48] LABS: POTASSIUM 3.9 mmol/L (3.5-5.1)
[2023-01-11 08:57] LABS: CALCIUM 7.7 mg/dL (8.5-10.1)
[2023-01-11 08:58] LABS: ALBUMIN 2.4 g/dl (3.4-5.0); BLOOD UREA NITROGEN 3.9 mg/dL (7-18); MAGNESIUM 1.7 mg/dL (1.8-2.4)
[2023-01-11 09:01] LABS: CREATININE 0.2 mg/dL (0.55-1.3); PHOSPHOROUS 3.9 mg/dL (2.5-4.9)
[2023-01-11 09:02] LABS: BILIRUBIN,TOTAL 0.5 mg/dL (0.2-1); TOT PROT 5.9 g/dl (6.4-8.2)
[2023-01-11] MEDS: BACLOFEN 10 MG TABLET (FP) GT SCH ×4 (09:05→21:52)
[2023-01-11] MEDS: APIXABAN 2.5 MG TABLET GT SCH ×2 (09:05→21:52)
[2023-01-11] MEDS: TAMSULOSIN HCL 0.4 MG CAP NR SCH (09:05)
[2023-01-11] MEDS: FAMOTIDINE 40 MG/5 ML ORAL SUSPENSION GT SCH ×2 (09:05→21:53)
[2023-01-11] MEDS: SODIUM CHLORIDE 1 GM TABLET PEG SCH (09:05)
[2023-01-11] MEDS: amLODIPine BESYLATE 2.5 MG TABLET (FP) GT SCH (09:05)
[2023-01-11] MEDS: CHOLECALCIFEROL (VIT D3) 1,000 UNIT (25 MCG) TABLET GT SCH (09:05)
[2023-01-11] MEDS: levETIRAcetam 500 MG/5 ML ORAL SOLUTION (UNIT-DOSE CUPS) GT SCH ×2 (09:05→21:53)
[2023-01-11] MEDS: carBAMazepine 100 MG/5 ML UNIT-DOSE CUP GT SCH ×2 (09:06→21:54)
[2023-01-11] MEDS: METOPROLOL TARTRATE 25 MG TABLET (FP) GT SCH ×2 (09:06→21:51)
[2023-01-11] MEDS ORDERED: MAGNESIUM SULF 50% (8.12 MEQ/2 ML-1 GM VIAL) IVPB ONE (16:34)
[2023-01-11] MEDS: MAGNESIUM 2GM/50ML STERILE WATER IVPB IVPB ONE (20:12)
[2023-01-11] MEDS: D5-NS + 20 MEQ KCL - 20 MEQ/1,000 ML INFUS.BAG IV SCH (21:50)
[2023-01-11] MEDS: GLYCOPYRROLATE 1 MG TABLET GT SCH (21:51)
[2023-01-12] MEDS: FLUTICASONE PROP 0.05% 16 GM NASAL SPRAY NS SCH (05:35)
[2023-01-12] MEDS: clonazePAM 0.5 MG TABLET GT SCH ×3 (05:35→21:38)
[2023-01-12] MEDS: POLYETHYLENE GLYCOL (HEALTHYLAX) 3350 17 GM PACKET GT SCH ×3 (05:36→21:39)
[2023-01-12 07:45] LABS: HEMATOCRIT 28.2 % (35.4-49); HEMOGLOBIN 9.7 GM/dL (11.7-16.9); MCH 29.1 pg (25.7-33.7); MCHC 34.6 g/dl (32.0-35.9); MEAN CELL VOLUME 84.2 fl (80-96); MEAN PLT VOLUME 8.4 fl (7.5-11.1); PLATELET COUNT 283 10^3/uL (134-434); RBC 3.35 M/mm3 (4.00-5.60); RDW 15.8 % (11.9-15.9); WHITE BLOOD COUNT 6.5 K/mm3 (4.0-10.0)
[2023-01-12 08:10] LABS: POTASSIUM 3.9 mmol/L (3.5-5.1)
[2023-01-12 08:17] LABS: CALCIUM 7.7 mg/dL (8.5-10.1)
[2023-01-12 08:18] LABS: ALBUMIN 2.3 g/dl (3.4-5.0); BLOOD UREA NITROGEN 5.3 mg/dL (7-18)
[2023-01-12 08:20] LABS: BILIRUBIN,TOTAL 0.3 mg/dL (0.2-1); TOT PROT 5.8 g/dl (6.4-8.2)
[2023-01-12 08:21] LABS: CREATININE 0.2 mg/dL (0.55-1.3); PHOSPHOROUS 3.5 mg/dL (2.5-4.9)
[2023-01-12] MEDS: BUDESONIDE 0.5 MG/2 ML INH SUSP VIAL NEB SCH ×2 (08:40→22:00)
[2023-01-12] MEDS: levETIRAcetam 500 MG/5 ML ORAL SOLUTION (UNIT-DOSE CUPS) GT SCH ×2 (11:03→21:39)
[2023-01-12] MEDS: APIXABAN 2.5 MG TABLET GT SCH ×2 (11:03→21:38)
[2023-01-12] MEDS: CHOLECALCIFEROL (VIT D3) 1,000 UNIT (25 MCG) TABLET GT SCH (11:03)
[2023-01-12] MEDS: amLODIPine BESYLATE 2.5 MG TABLET (FP) GT SCH (11:03)
[2023-01-12] MEDS: METOPROLOL TARTRATE 25 MG TABLET (FP) GT SCH ×2 (11:04→21:38)
[2023-01-12] MEDS: TAMSULOSIN HCL 0.4 MG CAP NR SCH (11:04)
[2023-01-12] MEDS: SODIUM CHLORIDE 1 GM TABLET PEG SCH (11:04)
[2023-01-12] MEDS: BACLOFEN 10 MG TABLET (FP) GT SCH ×4 (11:04→21:38)
[2023-01-12] MEDS: FAMOTIDINE 20 MG/2.5 ML ORAL LIQUID GT SCH ×2 (11:05→21:39)
[2023-01-12] MEDS: carBAMazepine 100 MG/5 ML UNIT-DOSE CUP GT SCH ×2 (11:05→21:39)
[2023-01-12] MEDS: ALBUTEROL SO4 2.5/IPRATROPIUM 0.5 INH SOL 3 ML VIAL.NEB. NEB PRN (12:38)
[2023-01-12] MEDS: D5-NS + 20 MEQ KCL - 20 MEQ/1,000 ML INFUS.BAG IV SCH (17:44)
[2023-01-12] MEDS: GLYCOPYRROLATE 1 MG TABLET GT SCH (21:39)
[2023-01-12 22:24] VITALS: RESP 20
[2023-01-13] MEDS: clonazePAM 0.5 MG TABLET GT SCH ×2 (05:33→15:00)
[2023-01-13] MEDS: POLYETHYLENE GLYCOL (HEALTHYLAX) 3350 17 GM PACKET GT SCH ×2 (05:33→15:01)
[2023-01-13] MEDS: FLUTICASONE PROP 0.05% 16 GM NASAL SPRAY NS SCH (05:45)
[2023-01-13 07:07] LABS: HEMATOCRIT 27.5 % (35.4-49); HEMOGLOBIN 9.6 GM/dL (11.7-16.9); MCH 29.3 pg (25.7-33.7); MCHC 34.8 g/dl (32.0-35.9); MEAN CELL VOLUME 84.3 fl (80-96); MEAN PLT VOLUME 8.1 fl (7.5-11.1); PLATELET COUNT 299 10^3/uL (134-434); RBC 3.26 M/mm3 (4.00-5.60); RDW 15.8 % (11.9-15.9)
[2023-01-13 07:34] LABS: POTASSIUM 4.3 mmol/L (3.5-5.1)
[2023-01-13 07:41] LABS: ALBUMIN 2.4 g/dl (3.4-5.0); CALCIUM 8.1 mg/dL (8.5-10.1); MAGNESIUM 1.8 mg/dL (1.8-2.4)
[2023-01-13 07:42] LABS: BLOOD UREA NITROGEN 5.7 mg/dL (7-18)
[2023-01-13 07:44] LABS: CREATININE 0.2 mg/dL (0.55-1.3)
[2023-01-13 07:45] LABS: PHOSPHOROUS 4.1 mg/dL (2.5-4.9)
[2023-01-13 07:46] LABS: BILIRUBIN,TOTAL 0.3 mg/dL (0.2-1); TOT PROT 5.9 g/dl (6.4-8.2)
[2023-01-13] MEDS: BUDESONIDE 0.5 MG/2 ML INH SUSP VIAL NEB SCH (08:18)
[2023-01-13] MEDS ORDERED: MAGNESIUM SULF 50% (8.12 MEQ/2 ML-1 GM VIAL) IVPB ONE (08:19)
[2023-01-13] MEDS: BACLOFEN 10 MG TABLET (FP) GT SCH ×3 (10:15→17:17)
[2023-01-13] MEDS: SODIUM CHLORIDE 1 GM TABLET PEG SCH (10:15)
[2023-01-13] MEDS: APIXABAN 2.5 MG TABLET GT SCH (10:15)
[2023-01-13] MEDS: CHOLECALCIFEROL (VIT D3) 1,000 UNIT (25 MCG) TABLET GT SCH (10:15)
[2023-01-13] MEDS: levETIRAcetam 500 MG/5 ML ORAL SOLUTION (UNIT-DOSE CUPS) GT SCH (10:15)
[2023-01-13] MEDS: amLODIPine BESYLATE 2.5 MG TABLET (FP) GT SCH (10:16)
[2023-01-13] MEDS: METOPROLOL TARTRATE 25 MG TABLET (FP) GT SCH (10:16)
[2023-01-13] MEDS: TAMSULOSIN HCL 0.4 MG CAP NR SCH (10:17)
[2023-01-13] MEDS: carBAMazepine 100 MG/5 ML UNIT-DOSE CUP GT SCH (10:24)
[2023-01-13] MEDS: FAMOTIDINE 20 MG/2.5 ML ORAL LIQUID GT SCH (10:24)
[2023-01-13] MEDS: SCOPOLAMINE HYDROBROMIDE 1 PATCH PATCH.TD72 TD SCH (10:25)
[2023-01-13 16:02] VITALS: BP 125/75; PULSE 91; TEMP 98.4
== END 2023-01-13 17:57 | DRG 424 ==
LOC: JER 10:00 → JERBED 20:04 → J4W 22:23
PROVIDERS: ADMIT Internal Medicine; ATTEND Internal Medicine
DX: E16.2 Hypoglycemia, unspecified (principal); I95.9 Hypotension, unspecified; G80.8 Other cerebral palsy; Q02 Microcephaly; H47.619 Cortical blindness, unspecified side of brain; J45.909 Unspecified asthma, uncomplicated; R13.19 Other dysphagia; F79 Unspecified intellectual disabilities; N44.00 Torsion of testis, unspecified; R53.2 Functional quadriplegia; G40.909 Epilepsy, unspecified, not intractable, without status epilepticus; R00.1 Bradycardia, unspecified; K56.41 Fecal impaction; R62.50 Unspecified lack of expected normal physiological development in childhood; R68.0 Hypothermia, not associated with low environmental temperature; Q67.5 Congenital deformity of spine; D64.9 Anemia, unspecified
CPT/HCPCS: 0241U-QW; 36415; 71045-TC-FY; 72132-TC; 74018-TC-FY; 74177-TC; 80053; 80177; 81003; 82533; 82962; 83605; 83735; 84100; 84443; 84484; 85025; 85027; 85610; 85730; 87040; 87086; 93005; 93010; 93306-TC; 94640; 99285-25; C9803-CS; J0475; Q9967; U0003; U0005

== ENCOUNTER 2023-04-23 22:37 | Emergency (ER) | payer OTHER ==
[2023-04-23 22:59] VITALS: BMI 30.8
[2023-04-23] MEDS ORDERED: SODIUM CHLORIDE 500 ML IV STA (23:05)
[2023-04-23] MEDS ORDERED: SODIUM CHLORIDE 1,000 ML IV STA (23:15)
[2023-04-23 23:33] LABS: URINE APPEARANCE CLEAR; URINE BILIRUBIN NEGATIVE (NEGATIVE); URINE COLOR YELLOW; URINE GLUCOSE (UA) NEGATIVE (NEGATIVE); URINE KETONE NEGATIVE (NEGATIVE); URINE LEUK ESTERASE NEGATIVE (NEGATIVE); URINE NITRITE NEGATIVE (NEGATIVE); URINE PROTEIN NEGATIVE (NEGATIVE); URINE UROBILINOGEN 0.2 mg/dL (0.2-1.0)
[2023-04-24 00:29] LABS: POTASSIUM 5.6 mmol/L (3.5-5.1)
[2023-04-24 00:30] LABS: ALBUMIN 3.3 g/dl (3.4-5.0); CALCIUM 9.1 mg/dL (8.5-10.1)
[2023-04-24 00:35] LABS: CREATININE 0.3 mg/dL (0.55-1.3)
[2023-04-24 00:36] LABS: BILIRUBIN,TOTAL 0.4 mg/dL (0.2-1)
[2023-04-24 00:38] LABS: TOT PROT 8.1 g/dl (6.4-8.2)
[2023-04-24 01:32] LABS: VENOUS BASE EXCESS 1.1 mmol/L (-2-2); VENOUS O2 SATURATION 84.9 % (70-80); VENOUS PCO2 48.7 mmHg (38-52); VENOUS PH 7.365 (7.310-7.410)
[2023-04-24 01:34] LABS: INR 1.25 (0.83-1.09); PROTHROMBIN TIME (PATIENT) 14.5 SEC (9.7-13.0)
[2023-04-24 01:37] LABS: ACTIVATED PTT 51.1 SECONDS (25.2-36.5)
[2023-04-24] MEDS ORDERED: DEXTROSE 50%-WATER - 25 GM/50 ML VIAL IVPUSH ONE (01:38)
[2023-04-24 01:45] LABS: BASO % 0.3 % (0-2.0); EOS % 1.4 % (0-4.5); HEMATOCRIT 34.9 % (35.4-49); HEMOGLOBIN 11.3 GM/dL (11.7-16.9); MCH 26.6 pg (25.7-33.7); MCHC 32.3 g/dl (32.0-35.9); MEAN CELL VOLUME 82.3 fl (80-96); MEAN PLT VOLUME 9.9 fl (7.5-11.1); NEUT % 51.3 % (42.8-82.8); PLATELET COUNT 163 10^3/uL (134-434); RBC 4.24 M/mm3 (4.00-5.60); RDW 17.1 % (11.9-15.9)
[2023-04-24 01:47] LABS: POTASSIUM 4.2 mmol/L (3.5-5.1)
[2023-04-24 01:48] LABS: CALCIUM 8.9 mg/dL (8.5-10.1)
[2023-04-24 01:49] LABS: BLOOD UREA NITROGEN 12.5 mg/dL (7-18)
[2023-04-24 01:51] LABS: CREATININE 0.2 mg/dL (0.55-1.3)
[2023-04-24 02:07] VITALS: BP 119/71; PULSE 61; RESP 18; TEMP 96.9
[2023-04-24] MEDS ORDERED: DEXTROSE 50%-WATER 25 GM/50 ML DISP.SYRIN ONE (03:53)
== END 2023-04-24 06:51 | disposition home or self-care (01) ==
LOC: JER 22:37
PROC: 3E033GC Introduction of Other Therapeutic Substance into Peripheral Vein, Percutaneous Approach (ICD-10-PCS; principal; 2023-04-24)
PROC: 3E0337Z Introduction of Electrolytic and Water Balance Substance into Peripheral Vein, Percutaneous Approach (ICD-10-PCS; 2023-04-24)
DX: I95.9 Hypotension, unspecified (principal); T68.XXXA Hypothermia, initial encounter; Z20.822 Contact with and (suspected) exposure to COVID-19
CPT/HCPCS: 0241U-QW; 36415; 71045-TC-FY; 80048; 80053; 81003; 82553; 82803; 83605; 84484; 85025; 85610; 85730; 87040; 87086; 93005; 93010; 99285-25

== ENCOUNTER 2023-04-29 22:49 | Inpatient (IN) | payer OTHER ==
[2023-04-29 23:42] LABS: VENOUS BASE EXCESS -1.8 mmol/L (-2-2); VENOUS O2 SATURATION 60.3 % (70-80); VENOUS PCO2 52.9 mmHg (38-52); VENOUS PH 7.299 (7.310-7.410)
[2023-04-29 23:49] LABS: HEMATOCRIT 38.6 % (35.4-49); HEMOGLOBIN 12.9 GM/dL (11.7-16.9); MCH 26.9 pg (25.7-33.7); MCHC 33.4 g/dl (32.0-35.9); MEAN CELL VOLUME 80.8 fl (80-96); MEAN PLT VOLUME 8.7 fl (7.5-11.1); PLATELET COUNT 164 10^3/uL (134-434); RBC 4.78 M/mm3 (4.00-5.60); RDW 17.7 % (11.9-15.9); WHITE BLOOD COUNT 3.8 K/mm3 (4.0-10.0)
[2023-04-29 23:55] LABS: INR 1.24 (0.83-1.09); PROTHROMBIN TIME (PATIENT) 14.3 SEC (9.7-13.0)
[2023-04-29 23:57] LABS: ACTIVATED PTT 48.9 SECONDS (25.2-36.5)
[2023-04-30 00:10] LABS: POTASSIUM 5.9 mmol/L (3.5-5.1)
[2023-04-30 00:11] LABS: CALCIUM 8.9 mg/dL (8.5-10.1)
[2023-04-30 00:12] LABS: ALBUMIN 3.3 g/dl (3.4-5.0); BLOOD UREA NITROGEN 9.8 mg/dL (7-18)
[2023-04-30 00:15] LABS: CREATININE 0.4 mg/dL (0.55-1.3)
[2023-04-30 00:17] LABS: BILIRUBIN,TOTAL 0.4 mg/dL (0.2-1); TOT PROT 8.5 g/dl (6.4-8.2)
[2023-04-30] MEDS ORDERED: PIPERACILLIN/TAZOB 4.5 GM 4.5 GM in DEXTROSE 5%-WATER 100 ML IVPB ONE (00:23)
[2023-04-30] MEDS ORDERED: VANCOMYCIN 1,000 MG in DEXTROSE 5%-WATER - 250 ML IVPB ONE (00:23)
[2023-04-30] MEDS ORDERED: PIPERACILLIN/TAZOB 4.5 GM 4.5 GM/100 ML BAG IVPB ONE ×3 (00:40→14:32)
[2023-04-30] MEDS ORDERED: VANCOMYCIN 1 GRAM (PRE-DOCKED) 1,000 MG/250 ML BAG IVPB ONE (00:40)
[2023-04-30 01:47] LABS: ANISOCYTOSIS 2+; MACROCYTOSIS 2+; OVALOCYTE 2+; TARGET CELLS 1+; TEAR DROP CELLS 1+
[2023-04-30 02:11] LABS: POTASSIUM 4.6 mmol/L (3.5-5.1)
[2023-04-30 02:13] LABS: CALCIUM 8.5 mg/dL (8.5-10.1)
[2023-04-30 02:14] LABS: ALBUMIN 3.2 g/dl (3.4-5.0); BLOOD UREA NITROGEN 9.4 mg/dL (7-18)
[2023-04-30 02:17] LABS: CREATININE 0.4 mg/dL (0.55-1.3)
[2023-04-30 02:19] LABS: BILIRUBIN,TOTAL 0.2 mg/dL (0.2-1)
[2023-04-30] MEDS ORDERED: ALBUTEROL SO4 2.5/IPRATROPIUM 0.5 INH SOL 3 ML VIAL.NEB. NEB PRN (04:57)
[2023-04-30] MEDS ORDERED: SODIUM CHLORIDE NASAL SPRAY 44 ML BOTTLE NS PRN (04:57)
[2023-04-30 06:00] LABS: BASO % 0.2 % (0-2.0); EOS % 0.4 % (0-4.5); HEMATOCRIT 36.2 % (35.4-49); HEMOGLOBIN 11.7 GM/dL (11.7-16.9); LYMPH % 18.6 % (8-40); MCH 26.9 pg (25.7-33.7); MCHC 32.4 g/dl (32.0-35.9); MEAN CELL VOLUME 82.8 fl (80-96); MEAN PLT VOLUME 8.8 fl (7.5-11.1); MONO % 7.7 % (3.8-10.2); NEUT % 73.1 % (42.8-82.8); PLATELET COUNT 181 10^3/uL (134-434); RBC 4.37 M/mm3 (4.00-5.60); WHITE BLOOD COUNT 5.1 K/mm3 (4.0-10.0)
[2023-04-30 06:17] LABS: POTASSIUM 4.4 mmol/L (3.5-5.1)
[2023-04-30 06:23] LABS: ALBUMIN 3.3 g/dl (3.4-5.0); BLOOD UREA NITROGEN 7.7 mg/dL (7-18); CALCIUM 8.6 mg/dL (8.5-10.1); MAGNESIUM 1.9 mg/dL (1.8-2.4)
[2023-04-30 06:26] LABS: PHOSPHOROUS 3.9 mg/dL (2.5-4.9)
[2023-04-30 06:27] LABS: CREATININE 0.3 mg/dL (0.55-1.3)
[2023-04-30 06:28] LABS: BILIRUBIN,TOTAL 0.3 mg/dL (0.2-1)
[2023-04-30] MEDS ORDERED: clonazePAM 0.5 MG TABLET ONE ×2 (07:00→14:31)
[2023-04-30] MEDS: clonazePAM 0.5 MG TABLET GT SCH ×3 (07:20→21:40)
[2023-04-30] MEDS: BUDESONIDE 0.5 MG/2 ML INH SUSP VIAL NEB SCH ×2 (07:55→20:24)
[2023-04-30] MEDS: levETIRAcetam 500 MG/5 ML ORAL SOLUTION (UNIT-DOSE CUPS) GT SCH ×2 (09:13→21:31)
[2023-04-30] MEDS: BACLOFEN 10 MG TABLET (FP) PEG SCH ×4 (09:13→21:32)
[2023-04-30] MEDS: POLYETHYLENE GLYCOL (HEALTHYLAX) 3350 17 GM PACKET GT SCH ×2 (09:13→21:32)
[2023-04-30] MEDS: APIXABAN 2.5 MG TABLET GT SCH ×2 (09:13→21:31)
[2023-04-30] MEDS: carBAMazepine 100 MG/5 ML UNIT-DOSE CUP GT SCH ×2 (09:13→23:00)
[2023-04-30] MEDS: SODIUM CHLORIDE 1 GM TABLET PEG SCH (09:14)
[2023-04-30] MEDS: METOPROLOL TARTRATE 25 MG TABLET (FP) GT SCH ×2 (09:14→21:31)
[2023-04-30] MEDS: SCOPOLAMINE HYDROBROMIDE 1 PATCH PATCH.TD72 TD SCH (09:14)
[2023-04-30] MEDS: CHOLECALCIFEROL (VIT D SOLUTION) 400 UNIT/1 ML DROPS GT SCH (09:15)
[2023-04-30] MEDS: FLUTICASONE PROP 0.05% 16 GM NASAL SPRAY NS SCH (09:17)
[2023-04-30] MEDS: PIPERACILLIN/TAZOB 4.5 GM 4.5 GM in DEXTROSE 5%-WATER 100 ML IVPB SCH ×4 (09:36→18:03)
[2023-04-30] MEDS ORDERED: TAMSULOSIN HCL 0.4 MG CAP PO SCH (10:00)
[2023-04-30] MEDS ORDERED: ALBUTEROL SO4 0.083% IH SOL 2.5 MG/3 ML VIAL.NEB. NEB PRN (11:41)
[2023-04-30 12:04] LABS: ARTERIAL BLD GAS O2 SATURATION 98.6 % (95-98); ARTERIAL BLOOD GAS BASE EXCESS 1.8 mmol/L (-2-2)
[2023-04-30 12:05] LABS: ALLENS TEST POSITIVE
[2023-04-30 12:07] LABS: VENT MODE 15L
[2023-04-30] MEDS ORDERED: methylPREDNISolone NA SUCC 40 MG/1 ML VIAL ONE (12:24)
[2023-04-30] MEDS ORDERED: ALBUTEROL SO4 2.5/IPRATROPIUM 0.5 INH SOL 3 ML VIAL.NEB. NEB ONE (12:28)
[2023-04-30] MEDS: methylPREDNISolone NA SUCC 40 MG/1 ML VIAL IVPUSH SCH (12:35)
[2023-04-30] MEDS: ALBUTEROL SO4 2.5/IPRATROPIUM 0.5 INH SOL 3 ML VIAL.NEB. NEB SCH ×3 (13:57→20:41)
[2023-04-30] MEDS ORDERED: SODIUM CHLORIDE 1,000 ML IV SCH (14:45)
[2023-04-30] MEDS: FAMOTIDINE 20 MG/2.5 ML ORAL LIQUID GT SCH (21:36)
[2023-04-30] MEDS: GLYCOPYRROLATE 1 MG TABLET GT SCH (21:37)
[2023-05-01] MEDS: PIPERACILLIN/TAZOB 4.5 GM 4.5 GM in DEXTROSE 5%-WATER 100 ML IVPB SCH ×3 (01:05→18:52)
[2023-05-01] MEDS: clonazePAM 0.5 MG TABLET GT SCH ×3 (05:28→22:20)
[2023-05-01] MEDS: BUDESONIDE 0.5 MG/2 ML INH SUSP VIAL NEB SCH ×2 (09:14→20:24)
[2023-05-01] MEDS: ALBUTEROL SO4 2.5/IPRATROPIUM 0.5 INH SOL 3 ML VIAL.NEB. NEB SCH ×4 (09:14→20:24)
[2023-05-01] MEDS: CHOLECALCIFEROL (VIT D SOLUTION) 400 UNIT/1 ML DROPS GT SCH (09:35)
[2023-05-01] MEDS: SODIUM CHLORIDE 1 GM TABLET PEG SCH (09:36)
[2023-05-01] MEDS: carBAMazepine 100 MG/5 ML UNIT-DOSE CUP GT SCH ×2 (09:37→22:20)
[2023-05-01] MEDS: POLYETHYLENE GLYCOL (HEALTHYLAX) 3350 17 GM PACKET GT SCH ×2 (09:38→22:19)
[2023-05-01] MEDS: methylPREDNISolone NA SUCC 40 MG/1 ML VIAL IVPUSH SCH (09:38)
[2023-05-01] MEDS: levETIRAcetam 500 MG/5 ML ORAL SOLUTION (UNIT-DOSE CUPS) GT SCH ×2 (09:38→22:19)
[2023-05-01] MEDS: BACLOFEN 10 MG TABLET (FP) PEG SCH ×4 (09:39→22:19)
[2023-05-01] MEDS: APIXABAN 2.5 MG TABLET GT SCH ×2 (09:39→22:19)
[2023-05-01] MEDS: METOPROLOL TARTRATE 25 MG TABLET (FP) GT SCH ×2 (09:39→22:20)
[2023-05-01] MEDS: FLUTICASONE PROP 0.05% 16 GM NASAL SPRAY NS SCH (14:25)
[2023-05-01 19:08] VITALS: BMI 30.9
[2023-05-01] MEDS: GLYCOPYRROLATE 1 MG TABLET GT SCH (22:22)
[2023-05-01] MEDS: FAMOTIDINE 20 MG/2.5 ML ORAL LIQUID GT SCH (22:24)
[2023-05-02] MEDS: PIPERACILLIN/TAZOB 4.5 GM 4.5 GM in DEXTROSE 5%-WATER 100 ML IVPB SCH ×3 (02:37→18:11)
[2023-05-02] MEDS: clonazePAM 0.5 MG TABLET GT SCH ×3 (05:08→23:22)
[2023-05-02] MEDS: BUDESONIDE 0.5 MG/2 ML INH SUSP VIAL NEB SCH ×2 (07:45→20:35)
[2023-05-02] MEDS: ALBUTEROL SO4 2.5/IPRATROPIUM 0.5 INH SOL 3 ML VIAL.NEB. NEB SCH ×4 (07:45→20:35)
[2023-05-02 08:38] LABS: BASO % 0.5 % (0-2.0); EOS % 0.6 % (0-4.5); HEMATOCRIT 30.9 % (35.4-49); LYMPH % 53.9 % (8-40); MCH 26.6 pg (25.7-33.7); MCHC 32.2 g/dl (32.0-35.9); MEAN CELL VOLUME 82.8 fl (80-96); MEAN PLT VOLUME 9.5 fl (7.5-11.1); MONO % 10.7 % (3.8-10.2); NEUT % 34.3 % (42.8-82.8); PLATELET COUNT 94 10^3/uL (134-434); RBC 3.74 M/mm3 (4.00-5.60); RDW 17.7 % (11.9-15.9); WHITE BLOOD COUNT 4.6 K/mm3 (4.0-10.0)
[2023-05-02 08:57] LABS: POTASSIUM 3.9 mmol/L (3.5-5.1)
[2023-05-02 08:58] LABS: CALCIUM 8.4 mg/dL (8.5-10.1)
[2023-05-02 08:59] LABS: ALBUMIN 2.8 g/dl (3.4-5.0); BLOOD UREA NITROGEN 8.9 mg/dL (7-18)
[2023-05-02 09:02] LABS: CREATININE 0.3 mg/dL (0.55-1.3)
[2023-05-02 09:04] LABS: BILIRUBIN,TOTAL 0.3 mg/dL (0.2-1); TOT PROT 6.7 g/dl (6.4-8.2)
[2023-05-02 11:15] VITALS: RESP 20
[2023-05-02] MEDS: POLYETHYLENE GLYCOL (HEALTHYLAX) 3350 17 GM PACKET GT SCH ×2 (11:16→23:22)
[2023-05-02] MEDS: APIXABAN 2.5 MG TABLET GT SCH ×2 (11:16→23:21)
[2023-05-02] MEDS: levETIRAcetam 500 MG/5 ML ORAL SOLUTION (UNIT-DOSE CUPS) GT SCH ×2 (11:16→23:22)
[2023-05-02] MEDS: methylPREDNISolone NA SUCC 40 MG/1 ML VIAL IVPUSH SCH (11:16)
[2023-05-02] MEDS: CHOLECALCIFEROL (VIT D SOLUTION) 400 UNIT/1 ML DROPS GT SCH (11:17)
[2023-05-02] MEDS: BACLOFEN 10 MG TABLET (FP) PEG SCH ×4 (11:17→23:21)
[2023-05-02] MEDS: SODIUM CHLORIDE 1 GM TABLET PEG SCH (11:19)
[2023-05-02] MEDS: METOPROLOL TARTRATE 25 MG TABLET (FP) GT SCH ×2 (11:19→23:22)
[2023-05-02] MEDS: carBAMazepine 100 MG/5 ML UNIT-DOSE CUP GT SCH ×2 (11:19→23:28)
[2023-05-02] MEDS: FLUTICASONE PROP 0.05% 16 GM NASAL SPRAY NS SCH (11:20)
[2023-05-02] MEDS: FAMOTIDINE 20 MG/2.5 ML ORAL LIQUID GT SCH (23:23)
[2023-05-02] MEDS: GLYCOPYRROLATE 1 MG TABLET GT SCH (23:23)
[2023-05-03] MEDS: PIPERACILLIN/TAZOB 4.5 GM 4.5 GM in DEXTROSE 5%-WATER 100 ML IVPB SCH ×3 (02:51→17:15)
[2023-05-03] MEDS: clonazePAM 0.5 MG TABLET GT SCH ×3 (05:32→22:19)
[2023-05-03] MEDS: BUDESONIDE 0.5 MG/2 ML INH SUSP VIAL NEB SCH ×2 (07:51→19:47)
[2023-05-03] MEDS: ALBUTEROL SO4 2.5/IPRATROPIUM 0.5 INH SOL 3 ML VIAL.NEB. NEB SCH ×4 (07:51→19:47)
[2023-05-03 09:10] LABS: BASO % 0.5 % (0-2.0); EOS % 0.4 % (0-4.5); HEMATOCRIT 31.9 % (35.4-49); HEMOGLOBIN 10.2 GM/dL (11.7-16.9); LYMPH % 44.9 % (8-40); MCH 26.4 pg (25.7-33.7); MEAN CELL VOLUME 82.3 fl (80-96); MEAN PLT VOLUME 9.1 fl (7.5-11.1); MONO % 10.6 % (3.8-10.2); NEUT % 43.6 % (42.8-82.8); PLATELET COUNT 207 10^3/uL (134-434); RBC 3.88 M/mm3 (4.00-5.60); RDW 18.2 % (11.9-15.9); WHITE BLOOD COUNT 6.9 K/mm3 (4.0-10.0)
[2023-05-03] MEDS: POLYETHYLENE GLYCOL (HEALTHYLAX) 3350 17 GM PACKET GT SCH ×2 (09:20→22:19)
[2023-05-03] MEDS: FLUTICASONE PROP 0.05% 16 GM NASAL SPRAY NS SCH (09:21)
[2023-05-03] MEDS: methylPREDNISolone NA SUCC 40 MG/1 ML VIAL IVPUSH SCH (09:21)
[2023-05-03] MEDS: METOPROLOL TARTRATE 25 MG TABLET (FP) GT SCH ×2 (09:22→22:19)
[2023-05-03] MEDS: APIXABAN 2.5 MG TABLET GT SCH ×2 (09:22→22:20)
[2023-05-03] MEDS: BACLOFEN 10 MG TABLET (FP) PEG SCH ×4 (09:22→22:19)
[2023-05-03] MEDS: levETIRAcetam 500 MG/5 ML ORAL SOLUTION (UNIT-DOSE CUPS) GT SCH ×2 (09:22→22:20)
[2023-05-03] MEDS: SCOPOLAMINE HYDROBROMIDE 1 PATCH PATCH.TD72 TD SCH (09:22)
[2023-05-03] MEDS: SODIUM CHLORIDE 1 GM TABLET PEG SCH (09:24)
[2023-05-03] MEDS: carBAMazepine 100 MG/5 ML UNIT-DOSE CUP GT SCH ×2 (09:24→22:22)
[2023-05-03] MEDS: CHOLECALCIFEROL (VIT D SOLUTION) 400 UNIT/1 ML DROPS GT SCH (09:27)
[2023-05-03 09:30] LABS: POTASSIUM 3.8 mmol/L (3.5-5.1)
[2023-05-03 09:49] LABS: BILIRUBIN,TOTAL 0.2 mg/dL (0.2-1)
[2023-05-03 09:50] LABS: ALBUMIN 2.8 g/dl (3.4-5.0); CREATININE 0.4 mg/dL (0.55-1.3)
[2023-05-03 09:51] LABS: BLOOD UREA NITROGEN 12.4 mg/dL (7-18); CALCIUM 8.5 mg/dL (8.5-10.1)
[2023-05-03] MEDS ORDERED: PANTOPRAZOLE SODIUM 40 MG VIAL IVPUSH SCH (10:00)
[2023-05-03] MEDS: FAMOTIDINE 20 MG/2.5 ML ORAL LIQUID GT SCH (22:21)
[2023-05-03] MEDS: GLYCOPYRROLATE 1 MG TABLET GT SCH (22:21)
[2023-05-04] MEDS: PIPERACILLIN/TAZOB 4.5 GM 4.5 GM in DEXTROSE 5%-WATER 100 ML IVPB SCH (01:33)
[2023-05-04] MEDS: clonazePAM 0.5 MG TABLET GT SCH ×2 (05:26→14:04)
[2023-05-04] MEDS: BUDESONIDE 0.5 MG/2 ML INH SUSP VIAL NEB SCH (08:10)
[2023-05-04] MEDS: ALBUTEROL SO4 2.5/IPRATROPIUM 0.5 INH SOL 3 ML VIAL.NEB. NEB SCH ×3 (08:10→16:59)
[2023-05-04] MEDS ORDERED: AMOX TR/POT CLAV 875MG/125MG TABLETS (FP) NR SCH (08:31)
[2023-05-04] MEDS: carBAMazepine 100 MG/5 ML UNIT-DOSE CUP GT SCH (09:00)
[2023-05-04] MEDS: FLUTICASONE PROP 0.05% 16 GM NASAL SPRAY NS SCH (09:00)
[2023-05-04] MEDS: CHOLECALCIFEROL (VIT D SOLUTION) 400 UNIT/1 ML DROPS GT SCH (09:01)
[2023-05-04] MEDS: POLYETHYLENE GLYCOL (HEALTHYLAX) 3350 17 GM PACKET GT SCH (09:01)
[2023-05-04] MEDS: BACLOFEN 10 MG TABLET (FP) PEG SCH ×2 (09:01→14:04)
[2023-05-04] MEDS: SODIUM CHLORIDE 1 GM TABLET PEG SCH (09:01)
[2023-05-04] MEDS: APIXABAN 2.5 MG TABLET GT SCH (09:01)
[2023-05-04 09:03] LABS: BASO % 0.4 % (0-2.0); EOS % 1.7 % (0-4.5); HEMATOCRIT 30.5 % (35.4-49); HEMOGLOBIN 9.8 GM/dL (11.7-16.9); LYMPH % 59.1 % (8-40); MCH 26.3 pg (25.7-33.7); MCHC 32.2 g/dl (32.0-35.9); MEAN CELL VOLUME 81.9 fl (80-96); MEAN PLT VOLUME 8.9 fl (7.5-11.1); MONO % 10.7 % (3.8-10.2); NEUT % 28.1 % (42.8-82.8); PLATELET COUNT 210 10^3/uL (134-434); RBC 3.72 M/mm3 (4.00-5.60); RDW 17.8 % (11.9-15.9); WHITE BLOOD COUNT 4.7 K/mm3 (4.0-10.0)
[2023-05-04] MEDS: METOPROLOL TARTRATE 25 MG TABLET (FP) GT SCH (09:07)
[2023-05-04 09:18] LABS: POTASSIUM 3.6 mmol/L (3.5-5.1)
[2023-05-04 09:26] LABS: ALBUMIN 2.7 g/dl (3.4-5.0); BLOOD UREA NITROGEN 7.4 mg/dL (7-18); CREATININE 0.3 mg/dL (0.55-1.3)
[2023-05-04 09:27] LABS: BILIRUBIN,TOTAL 0.2 mg/dL (0.2-1); CALCIUM 8.1 mg/dL (8.5-10.1); MAGNESIUM 2.1 mg/dL (1.8-2.4)
[2023-05-04 09:28] LABS: TOT PROT 6.8 g/dl (6.4-8.2)
[2023-05-04] MEDS ORDERED: predniSONE 20 MG TABLET (UD) GT SCH ×2 (10:00→11:05)
[2023-05-04] MEDS: levETIRAcetam 500 MG/5 ML ORAL SOLUTION (UNIT-DOSE CUPS) GT SCH (11:43)
[2023-05-04] MEDS ORDERED: AMOX TR/POTASSIUM CLAVULANATE 250 MG/5 ML BOTTLE GT SCH (12:00)
[2023-05-04 14:31] VITALS: BP 121/66; PULSE 66; TEMP 97.6
== END 2023-05-04 16:50 | DRG 137 ==
LOC: JER 22:49 → JERBED 04-30 01:16 → J7W 04-30 16:15
PROVIDERS: ADMIT Internal Medicine; ATTEND Nurse Practitioner Acute Care
DX: J69.0 Pneumonitis due to inhalation of food and vomit (principal); F73 Profound intellectual disabilities; G40.909 Epilepsy, unspecified, not intractable, without status epilepticus; R53.2 Functional quadriplegia; H47.619 Cortical blindness, unspecified side of brain; E87.5 Hyperkalemia; G80.1 Spastic diplegic cerebral palsy; J96.01 Acute respiratory failure with hypoxia; N44.00 Torsion of testis, unspecified; J45.909 Unspecified asthma, uncomplicated; K59.00 Constipation, unspecified; Q67.5 Congenital deformity of spine; Z86.718 Personal history of other venous thrombosis and embolism; Z93.1 Gastrostomy status
CPT/HCPCS: 0241U-QW; 36415; 36600; 71045-TC-FY; 80053; 82550; 82553; 82803; 82962; 83605; 83735; 84100; 84132; 84484; 85025; 85610; 85730; 86850; 86900; 86901; 87040; 87635; 93005; 93010; 94640; 99285-25; J0475

== ENCOUNTER 2023-08-11 13:05 | Inpatient (IN) | payer OTHER ==
[2023-08-11] MEDS: ALBUTEROL SO4 2.5/IPRATROPIUM 0.5 INH SOL 3 ML VIAL.NEB. NEB SCH ×4 (13:48→14:33)
[2023-08-11 14:23] LABS: VENOUS BASE EXCESS 0.3 mmol/L (-2-2); VENOUS O2 SATURATION 88.4 % (70-80); VENOUS PCO2 47.7 mmHg (38-52); VENOUS PH 7.358 (7.310-7.410)
[2023-08-11] MEDS ORDERED: ALBUTEROL SO4 2.5/IPRATROPIUM 0.5 INH SOL 3 ML VIAL.NEB. NEB ONE (14:26)
[2023-08-11 14:38] LABS: BASO % 0.2 % (0-2.0); EOS % 0.6 % (0-4.5); HEMATOCRIT 35.7 % (35.4-49); HEMOGLOBIN 11.8 GM/dL (11.7-16.9); LYMPH % 28.9 % (8-40); MCH 28.2 pg (25.7-33.7); MCHC 33.1 g/dl (32.0-35.9); MEAN CELL VOLUME 85.1 fl (80-96); MEAN PLT VOLUME 9.2 fl (7.5-11.1); MONO % 9.4 % (3.8-10.2); NEUT % 60.9 % (42.8-82.8); PLATELET COUNT 101 10^3/uL (134-434); RBC 4.19 M/mm3 (4.00-5.60); RDW 19.5 % (11.9-15.9); WHITE BLOOD COUNT 5.2 K/mm3 (4.0-10.0)
[2023-08-11] MEDS ORDERED: AMPICILLIN NA/SULBACTAM NA 3 GM in SODIUM CHLORIDE 100 ML IVPB ONE (14:58)
[2023-08-11] MEDS ORDERED: AMPICILLIN NA/SULBACTAM NA 3 GM VIAL ONE (15:15)
[2023-08-11 15:59] LABS: POTASSIUM 4.7 mmol/L (3.5-5.1)
[2023-08-11] MEDS ORDERED: SODIUM CHLORIDE 0.9% 500 ML INFUS.BAG IV ONE ×2 (16:00→16:51)
[2023-08-11 16:01] LABS: BLOOD UREA NITROGEN 10.8 mg/dL (7-18); CALCIUM 8.4 mg/dL (8.5-10.1); MAGNESIUM 2.1 mg/dL (1.8-2.4)
[2023-08-11] MEDS ORDERED: DEXTROSE 50%-WATER - 25 GM/50 ML VIAL IVPUSH ONE (16:04)
[2023-08-11 16:05] LABS: CREATININE 0.2 mg/dL (0.55-1.3)
[2023-08-11 16:06] LABS: BILIRUBIN,TOTAL 0.2 mg/dL (0.2-1); TOT PROT 7.4 g/dl (6.4-8.2)
[2023-08-11] MEDS ORDERED: DEXTROSE 50%-WATER 25 GM/50 ML DISP.SYRIN IVPUSH ONE (16:11)
[2023-08-11] MEDS ORDERED: DEXTROSE 5%-NORMAL SALINE 1,000 ML IV SCH (16:15)
[2023-08-11] MEDS ORDERED: ALBUTEROL SO4 2.5/IPRATROPIUM 0.5 INH SOL 3 ML VIAL.NEB. NEB PRN (20:50)
[2023-08-11] MEDS ORDERED: SCOPOLAMINE HYDROBROMIDE 1 PATCH PATCH.TD72 TD SCH (21:00)
[2023-08-11] MEDS ORDERED: SODIUM CHLORIDE NASAL SPRAY 44 ML BOTTLE NS PRN (21:09)
[2023-08-11] MEDS ORDERED: SODIUM CHLORIDE 1,000 ML IV STA (21:49)
[2023-08-11] MEDS ORDERED: METOPROLOL TARTRATE 25 MG TABLET (FP) GT SCH (22:00)
[2023-08-11] MEDS ORDERED: PANTOPRAZOLE SOD 40 MG SUSPENSION PACKET PO SCH (22:00)
[2023-08-11] MEDS: DEXTROSE 5%-NORMAL SALINE 1,000 ML IV SCH (22:16)
[2023-08-12] MEDS ORDERED: clonazePAM 0.5 MG TABLET ONE (01:26)
[2023-08-12] MEDS ORDERED: POLYETHYLENE GLYCOL (HEALTHYLAX) 3350 17 GM PACKET ONE (01:26)
[2023-08-12] MEDS ORDERED: levETIRAcetam 500 MG TABLET (FP) PO ONE (01:27)
[2023-08-12] MEDS ORDERED: carBAMazepine 200 MG TABLET ONE (01:27)
[2023-08-12] MEDS ORDERED: BACLOFEN 10 MG TABLET (FP) ONE (01:27)
[2023-08-12] MEDS ORDERED: APIXABAN 2.5 MG TABLET ONE (01:27)
[2023-08-12] MEDS ORDERED: PANTOPRAZOLE 20 MG TABLET PO ONE (01:27)
[2023-08-12] MEDS ORDERED: ALBUTEROL SO4 2.5/IPRATROPIUM 0.5 INH SOL 3 ML VIAL.NEB. NEB ONE ×2 (01:32→03:52)
[2023-08-12] MEDS ORDERED: methylPREDNISolone NA SUCC 40 MG/1 ML VIAL ONE (01:32)
[2023-08-12] MEDS: carBAMazepine 100 MG/5 ML UNIT-DOSE CUP GT SCH ×3 (03:09→21:16)
[2023-08-12] MEDS: POLYETHYLENE GLYCOL (HEALTHYLAX) 3350 17 GM PACKET GT SCH ×3 (03:10→21:16)
[2023-08-12] MEDS: levETIRAcetam 500 MG/5 ML ORAL SOLUTION (UNIT-DOSE CUPS) GT SCH ×3 (03:10→21:16)
[2023-08-12] MEDS: APIXABAN 2.5 MG TABLET GT SCH ×3 (03:10→21:17)
[2023-08-12] MEDS: BUDESONIDE 0.5 MG/2 ML INH SUSP VIAL NEB SCH ×3 (03:11→22:49)
[2023-08-12] MEDS: clonazePAM 2 MG TABLET GT SCH ×3 (03:11→17:22)
[2023-08-12] MEDS: BACLOFEN 10 MG TABLET (FP) GT SCH ×6 (03:11→21:16)
[2023-08-12] MEDS: GLYCOPYRROLATE 2 MG TABLET GT SCH ×2 (03:13→21:18)
[2023-08-12] MEDS: ALBUTEROL SO4 2.5/IPRATROPIUM 0.5 INH SOL 3 ML VIAL.NEB. NEB SCH ×6 (03:14→20:05)
[2023-08-12] MEDS ORDERED: PIPERACILLIN/TAZOB 2.25 GM 2.25 GM/50 ML BAG IVPB ONE (03:21)
[2023-08-12] MEDS ORDERED: PIPERACILLIN/TAZOB 3.375 GM 3.375 GM/50 ML BAG IVPB ONE ×2 (03:27→11:15)
[2023-08-12] MEDS: methylPREDNISolone NA SUCC 40 MG/1 ML VIAL IVPUSH SCH ×4 (03:28→21:17)
[2023-08-12] MEDS: PIPERACILLIN/TAZOB 3.375 GM 3.375 GM in DEXTROSE 5%-WATER - 50 ML IVPB SCH ×3 (03:28→17:23)
[2023-08-12 07:22] LABS: HEMATOCRIT 34.5 % (35.4-49); HEMOGLOBIN 11.6 GM/dL (11.7-16.9); MCH 28.6 pg (25.7-33.7); MCHC 33.6 g/dl (32.0-35.9); MEAN CELL VOLUME 85.3 fl (80-96); MEAN PLT VOLUME 9.6 fl (7.5-11.1); PLATELET COUNT 119 10^3/uL (134-434); RBC 4.05 M/mm3 (4.00-5.60); RDW 19.2 % (11.9-15.9); WHITE BLOOD COUNT 8.4 K/mm3 (4.0-10.0)
[2023-08-12 07:57] LABS: POTASSIUM 3.9 mmol/L (3.5-5.1)
[2023-08-12 07:59] LABS: BILIRUBIN,TOTAL 0.3 mg/dL (0.2-1)
[2023-08-12 08:15] LABS: BLOOD UREA NITROGEN 4.3 mg/dL (7-18)
[2023-08-12 08:18] LABS: CALCIUM 8.3 mg/dL (8.5-10.1); CREATININE 0.3 mg/dL (0.55-1.3); PHOSPHOROUS 2.4 mg/dL (2.5-4.9)
[2023-08-12 09:22] LABS: TOT PROT 7.2 g/dl (6.4-8.2)
[2023-08-12] MEDS ORDERED: TAMSULOSIN HCL 0.4 MG CAP PO SCH (10:00)
[2023-08-12 10:02] LABS: BILIRUBIN,DIRECT 0.1 mg/dL (0.0-0.2)
[2023-08-12] MEDS: SCOPOLAMINE HYDROBROMIDE 1 PATCH PATCH.TD72 TD SCH (10:55)
[2023-08-12] MEDS: FLUTICASONE PROP 0.05% 16 GM NASAL SPRAY NS SCH (10:55)
[2023-08-12] MEDS: SODIUM CHLORIDE 1 GM TABLET PEG SCH (11:35)
[2023-08-12] MEDS: CHOLECALCIFEROL (VIT D3) 1,000 UNIT (25 MCG) TABLET GT SCH (11:35)
[2023-08-12] MEDS: clonazePAM 0.5 MG TABLET GT SCH ×2 (17:23→21:16)
[2023-08-12] MEDS: METOPROLOL TARTRATE 25 MG TABLET (FP) GT SCH (21:17)
[2023-08-12] MEDS: FAMOTIDINE 20 MG/2.5 ML ORAL LIQUID PO SCH (21:18)
[2023-08-12] MEDS ORDERED: METOPROLOL TARTRATE 25 MG TABLET (FP) GT SCH (22:00)
[2023-08-13] MEDS: ALBUTEROL SO4 2.5/IPRATROPIUM 0.5 INH SOL 3 ML VIAL.NEB. NEB SCH ×6 (00:27→20:11)
[2023-08-13] MEDS: PIPERACILLIN/TAZOB 3.375 GM 3.375 GM in DEXTROSE 5%-WATER - 50 ML IVPB SCH ×3 (02:36→17:08)
[2023-08-13] MEDS: methylPREDNISolone NA SUCC 40 MG/1 ML VIAL IVPUSH SCH ×4 (02:36→21:54)
[2023-08-13] MEDS: DEXTROSE 5%-NORMAL SALINE 1,000 ML IV SCH (02:42)
[2023-08-13] MEDS: clonazePAM 0.5 MG TABLET GT SCH ×3 (05:49→21:55)
[2023-08-13] MEDS: BUDESONIDE 0.5 MG/2 ML INH SUSP VIAL NEB SCH ×2 (09:05→20:23)
[2023-08-13 09:12] LABS: BASO % 0.1 % (0-2.0); HEMATOCRIT 28.4 % (35.4-49); HEMOGLOBIN 9.4 GM/dL (11.7-16.9); LYMPH % 20.4 % (8-40); MCH 28.3 pg (25.7-33.7); MCHC 33.2 g/dl (32.0-35.9); MEAN CELL VOLUME 85.3 fl (80-96); MEAN PLT VOLUME 8.9 fl (7.5-11.1); MONO % 5.4 % (3.8-10.2); NEUT % 74.1 % (42.8-82.8); PLATELET COUNT 100 10^3/uL (134-434); RBC 3.34 M/mm3 (4.00-5.60); RDW 19.3 % (11.9-15.9)
[2023-08-13 09:18] LABS: POTASSIUM 3.6 mmol/L (3.5-5.1)
[2023-08-13 09:28] LABS: BLOOD UREA NITROGEN 5.3 mg/dL (7-18)
[2023-08-13 09:29] LABS: ALBUMIN 2.5 g/dl (3.4-5.0); CALCIUM 8.3 mg/dL (8.5-10.1)
[2023-08-13 09:30] LABS: CREATININE 0.3 mg/dL (0.55-1.3)
[2023-08-13 09:32] LABS: BILIRUBIN,TOTAL 0.3 mg/dL (0.2-1); TOT PROT 6.3 g/dl (6.4-8.2)
[2023-08-13] MEDS: BACLOFEN 10 MG TABLET (FP) GT SCH ×4 (10:06→21:55)
[2023-08-13] MEDS: SODIUM CHLORIDE 1 GM TABLET PEG SCH (10:06)
[2023-08-13] MEDS: levETIRAcetam 500 MG/5 ML ORAL SOLUTION (UNIT-DOSE CUPS) GT SCH ×2 (10:07→21:55)
[2023-08-13] MEDS: APIXABAN 2.5 MG TABLET GT SCH ×2 (10:07→21:55)
[2023-08-13] MEDS: CHOLECALCIFEROL (VIT D3) 1,000 UNIT (25 MCG) TABLET GT SCH (10:07)
[2023-08-13] MEDS: METOPROLOL TARTRATE 25 MG TABLET (FP) GT SCH ×2 (10:07→21:55)
[2023-08-13] MEDS: carBAMazepine 100 MG/5 ML UNIT-DOSE CUP GT SCH ×2 (10:07→21:56)
[2023-08-13] MEDS: POLYETHYLENE GLYCOL (HEALTHYLAX) 3350 17 GM PACKET GT SCH ×2 (10:27→21:55)
[2023-08-13] MEDS: FLUTICASONE PROP 0.05% 16 GM NASAL SPRAY NS SCH (12:40)
[2023-08-13] MEDS ORDERED: NAPH,MB-DB/K PH,MBDB POWDER PACKET PO ONE (17:00)
[2023-08-13] MEDS ORDERED: NAPH,MB-DB/K PH,MBDB POWDER PACKET GT ONE (17:00)
[2023-08-13] MEDS: FAMOTIDINE 20 MG/2.5 ML ORAL LIQUID PO SCH (21:56)
[2023-08-13] MEDS: GLYCOPYRROLATE 2 MG TABLET GT SCH (21:57)
[2023-08-14] MEDS: ALBUTEROL SO4 2.5/IPRATROPIUM 0.5 INH SOL 3 ML VIAL.NEB. NEB SCH ×6 (00:11→19:59)
[2023-08-14] MEDS: PIPERACILLIN/TAZOB 3.375 GM 3.375 GM in DEXTROSE 5%-WATER - 50 ML IVPB SCH ×3 (01:04→17:46)
[2023-08-14] MEDS: methylPREDNISolone NA SUCC 40 MG/1 ML VIAL IVPUSH SCH ×4 (04:22→21:31)
[2023-08-14] MEDS: DEXTROSE 5%-NORMAL SALINE 1,000 ML IV SCH ×2 (06:06→21:31)
[2023-08-14] MEDS: clonazePAM 0.5 MG TABLET GT SCH ×3 (06:07→21:36)
[2023-08-14 08:11] LABS: HEMATOCRIT 30.5 % (35.4-49); MCH 28.4 pg (25.7-33.7); MCHC 32.9 g/dl (32.0-35.9); MEAN CELL VOLUME 86.5 fl (80-96); MEAN PLT VOLUME 8.5 fl (7.5-11.1); PLATELET COUNT 104 10^3/uL (134-434); RBC 3.52 M/mm3 (4.00-5.60); RDW 19.8 % (11.9-15.9)
[2023-08-14 08:33] LABS: POTASSIUM 3.2 mmol/L (3.5-5.1)
[2023-08-14 08:36] LABS: CALCIUM 8.3 mg/dL (8.5-10.1)
[2023-08-14 08:37] LABS: ALBUMIN 2.4 g/dl (3.4-5.0); BLOOD UREA NITROGEN 5.4 mg/dL (7-18); MAGNESIUM 1.7 mg/dL (1.8-2.4)
[2023-08-14 08:40] LABS: CREATININE 0.3 mg/dL (0.55-1.3); PHOSPHOROUS 2.6 mg/dL (2.5-4.9)
[2023-08-14 08:41] LABS: BILIRUBIN,TOTAL 0.5 mg/dL (0.2-1)
[2023-08-14 08:42] LABS: TOT PROT 6.2 g/dl (6.4-8.2)
[2023-08-14] MEDS: levETIRAcetam 500 MG/5 ML ORAL SOLUTION (UNIT-DOSE CUPS) GT SCH ×2 (09:31→21:33)
[2023-08-14] MEDS: FLUTICASONE PROP 0.05% 16 GM NASAL SPRAY NS SCH (09:32)
[2023-08-14] MEDS: METOPROLOL TARTRATE 25 MG TABLET (FP) GT SCH ×2 (09:32→21:35)
[2023-08-14] MEDS: BACLOFEN 10 MG TABLET (FP) GT SCH ×4 (09:32→21:37)
[2023-08-14] MEDS: APIXABAN 2.5 MG TABLET GT SCH ×2 (09:33→21:35)
[2023-08-14] MEDS: CHOLECALCIFEROL (VIT D3) 1,000 UNIT (25 MCG) TABLET GT SCH (09:34)
[2023-08-14] MEDS: carBAMazepine 100 MG/5 ML UNIT-DOSE CUP GT SCH ×2 (09:34→21:34)
[2023-08-14] MEDS: POLYETHYLENE GLYCOL (HEALTHYLAX) 3350 17 GM PACKET GT SCH ×2 (09:35→21:34)
[2023-08-14 09:44] LABS: ANISOCYTOSIS 1+; MACROCYTOSIS 1+; TARGET CELLS 2+; TEAR DROP CELLS 1+; TOXIC GRANULATION 2+
[2023-08-14] MEDS: BUDESONIDE 0.5 MG/2 ML INH SUSP VIAL NEB SCH ×2 (10:30→21:39)
[2023-08-14] MEDS: FAMOTIDINE 20 MG/2.5 ML ORAL LIQUID PO SCH (21:34)
[2023-08-14] MEDS: GLYCOPYRROLATE 1 MG TABLET GT SCH (21:39)
[2023-08-14] MEDS: ACETAMINOPHEN 1000 MG/100 ML BAG IVPB PRN (23:17)
[2023-08-14 23:43] VITALS: BMI 30.7
[2023-08-15] MEDS: ALBUTEROL SO4 2.5/IPRATROPIUM 0.5 INH SOL 3 ML VIAL.NEB. NEB SCH ×6 (00:41→20:16)
[2023-08-15] MEDS: PIPERACILLIN/TAZOB 3.375 GM 3.375 GM in DEXTROSE 5%-WATER - 50 ML IVPB SCH ×3 (01:12→18:22)
[2023-08-15] MEDS: methylPREDNISolone NA SUCC 40 MG/1 ML VIAL IVPUSH SCH ×4 (02:05→22:09)
[2023-08-15] MEDS: ACETAMINOPHEN 1000 MG/100 ML BAG IVPB PRN (05:56)
[2023-08-15] MEDS: clonazePAM 0.5 MG TABLET GT SCH ×3 (05:56→22:09)
[2023-08-15 09:12] LABS: HEMATOCRIT 27.4 % (35.4-49); HEMOGLOBIN 9.2 GM/dL (11.7-16.9); MCH 28.9 pg (25.7-33.7); MCHC 33.6 g/dl (32.0-35.9); MEAN PLT VOLUME 8.4 fl (7.5-11.1); MONO % 13.4 % (3.8-10.2); NEUT % 62.6 % (42.8-82.8); PLATELET COUNT 125 10^3/uL (134-434); RBC 3.19 M/mm3 (4.00-5.60); RDW 19.6 % (11.9-15.9); WHITE BLOOD COUNT 4.7 K/mm3 (4.0-10.0)
[2023-08-15 09:23] LABS: CHLORIDE 107 mmol/L (98-107); SODIUM 139 mmol/L (136-145)
[2023-08-15] MEDS: METOPROLOL TARTRATE 25 MG TABLET (FP) GT SCH ×2 (09:28→22:09)
[2023-08-15] MEDS: CHOLECALCIFEROL (VIT D3) 1,000 UNIT (25 MCG) TABLET GT SCH (09:28)
[2023-08-15 09:29] LABS: ALBUMIN 2.4 g/dl (3.4-5.0); CALCIUM 8.3 mg/dL (8.5-10.1); CO2 26 mmol/L (21-32)
[2023-08-15] MEDS: APIXABAN 2.5 MG TABLET GT SCH ×2 (09:29→22:09)
[2023-08-15] MEDS: BACLOFEN 10 MG TABLET (FP) GT SCH ×4 (09:29→22:09)
[2023-08-15 09:30] LABS: BLOOD UREA NITROGEN 5.7 mg/dL (7-18); GLUCOSE,RANDOM 115 mg/dL (74-106); MAGNESIUM 1.7 mg/dL (1.8-2.4)
[2023-08-15 09:31] LABS: CREATININE 0.3 mg/dL (0.55-1.3); SGOT/AST 55 U/L (15-37)
[2023-08-15] MEDS: SCOPOLAMINE HYDROBROMIDE 1 PATCH PATCH.TD72 TD SCH (09:31)
[2023-08-15 09:33] LABS: BILIRUBIN,TOTAL 0.4 mg/dL (0.2-1); SGPT/ALT 67 U/L (13-61); TOT PROT 5.9 g/dl (6.4-8.2)
[2023-08-15 09:34] LABS: ALK PHOS 100 U/L (45-117)
[2023-08-15] MEDS: ASCORBIC ACID 500 MG/5 ML UNIT DOSE CUP PO SCH (09:37)
[2023-08-15] MEDS: levETIRAcetam 500 MG/5 ML ORAL SOLUTION (UNIT-DOSE CUPS) GT SCH ×2 (09:38→22:08)
[2023-08-15] MEDS: carBAMazepine 100 MG/5 ML UNIT-DOSE CUP GT SCH ×2 (09:43→22:08)
[2023-08-15] MEDS: MULTIVIT-MINERALS ORAL LIQUID PO SCH (09:43)
[2023-08-15] MEDS: POLYETHYLENE GLYCOL (HEALTHYLAX) 3350 17 GM PACKET GT SCH ×2 (09:47→22:25)
[2023-08-15 10:05] LABS: ANION GAP 6 mmol/L (4-13); POTASSIUM 2.6 mmol/L (3.5-5.1)
[2023-08-15] MEDS ORDERED: POTASSIUM CHLORIDE ORAL LIQUID 20 MEQ/15 ML PEG ONE (10:35)
[2023-08-15] MEDS ORDERED: TAMSULOSIN HCL 0.4 MG CAP PO SCH (10:45)
[2023-08-15] MEDS: BUDESONIDE 0.5 MG/2 ML INH SUSP VIAL NEB SCH ×2 (10:55→22:04)
[2023-08-15] MEDS ORDERED: MAGNESIUM SULF 50% (8.12 MEQ/2 ML-1 GM VIAL) IVPB ONE (11:01)
[2023-08-15] MEDS: KCL 10 MEQ IVPB 10 MEQ/100 ML INFUS.BAG IVPB SCH ×3 (11:45→17:08)
[2023-08-15] MEDS: FLUTICASONE PROP 0.05% 16 GM NASAL SPRAY NS SCH (12:08)
[2023-08-15] MEDS: GLYCOPYRROLATE 1 MG TABLET GT SCH (22:10)
[2023-08-15] MEDS: FAMOTIDINE 20 MG/2.5 ML ORAL LIQUID PO SCH (22:10)
[2023-08-16] MEDS: PIPERACILLIN/TAZOB 3.375 GM 3.375 GM in DEXTROSE 5%-WATER - 50 ML IVPB SCH ×3 (01:36→18:14)
[2023-08-16] MEDS: methylPREDNISolone NA SUCC 40 MG/1 ML VIAL IVPUSH SCH ×4 (01:41→21:30)
[2023-08-16] MEDS: ALBUTEROL SO4 2.5/IPRATROPIUM 0.5 INH SOL 3 ML VIAL.NEB. NEB SCH ×6 (01:55→20:05)
[2023-08-16] MEDS: clonazePAM 0.5 MG TABLET GT SCH ×3 (06:13→21:29)
[2023-08-16 08:41] LABS: HEMATOCRIT 29.3 % (35.4-49); HEMOGLOBIN 9.6 GM/dL (11.7-16.9); LYMPH % 34.8 % (8-40); MCH 27.9 pg (25.7-33.7); MCHC 32.6 g/dl (32.0-35.9); MEAN CELL VOLUME 85.7 fl (80-96); MONO % 12.4 % (3.8-10.2); NEUT % 52.8 % (42.8-82.8); PLATELET COUNT 123 10^3/uL (134-434); RBC 3.42 M/mm3 (4.00-5.60); RDW 19.7 % (11.9-15.9); WHITE BLOOD COUNT 5.8 K/mm3 (4.0-10.0)
[2023-08-16 09:12] LABS: POTASSIUM 3.4 mmol/L (3.5-5.1)
[2023-08-16 09:26] LABS: ALBUMIN 2.5 g/dl (3.4-5.0); BLOOD UREA NITROGEN 6.5 mg/dL (7-18); CALCIUM 8.5 mg/dL (8.5-10.1); MAGNESIUM 2.1 mg/dL (1.8-2.4)
[2023-08-16 09:29] LABS: CREATININE 0.3 mg/dL (0.55-1.3); PHOSPHOROUS 2.9 mg/dL (2.5-4.9)
[2023-08-16 09:31] LABS: BILIRUBIN,TOTAL 0.5 mg/dL (0.2-1); TOT PROT 5.9 g/dl (6.4-8.2)
[2023-08-16] MEDS ORDERED: POTASSIUM CHLORIDE ORAL LIQUID 20 MEQ/15 ML PO ONE (10:00)
[2023-08-16] MEDS: BUDESONIDE 0.5 MG/2 ML INH SUSP VIAL NEB SCH ×2 (10:00→21:36)
[2023-08-16] MEDS ORDERED: POTASSIUM CHLORIDE ORAL LIQUID 20 MEQ/15 ML GT ONE (10:15)
[2023-08-16] MEDS: carBAMazepine 100 MG/5 ML UNIT-DOSE CUP GT SCH ×2 (10:42→21:30)
[2023-08-16] MEDS: MULTIVIT-MINERALS ORAL LIQUID PO SCH (10:43)
[2023-08-16] MEDS: APIXABAN 2.5 MG TABLET GT SCH ×2 (10:45→21:29)
[2023-08-16] MEDS: FLUTICASONE PROP 0.05% 16 GM NASAL SPRAY NS SCH (10:46)
[2023-08-16] MEDS: POLYETHYLENE GLYCOL (HEALTHYLAX) 3350 17 GM PACKET GT SCH ×2 (10:48→21:29)
[2023-08-16] MEDS: levETIRAcetam 500 MG/5 ML ORAL SOLUTION (UNIT-DOSE CUPS) GT SCH ×2 (10:49→21:29)
[2023-08-16] MEDS: BACLOFEN 10 MG TABLET (FP) GT SCH ×4 (10:50→21:29)
[2023-08-16] MEDS: CHOLECALCIFEROL (VIT D3) 1,000 UNIT (25 MCG) TABLET GT SCH (10:51)
[2023-08-16] MEDS: ASCORBIC ACID 500 MG/5 ML UNIT DOSE CUP PO SCH (10:51)
[2023-08-16] MEDS: METOPROLOL TARTRATE 25 MG TABLET (FP) GT SCH ×2 (10:54→21:31)
[2023-08-16] MEDS: GLYCOPYRROLATE 1 MG TABLET GT SCH (21:30)
[2023-08-16] MEDS: FAMOTIDINE 20 MG/2.5 ML ORAL LIQUID PO SCH (21:30)
[2023-08-17] MEDS: PIPERACILLIN/TAZOB 3.375 GM 3.375 GM in DEXTROSE 5%-WATER - 50 ML IVPB SCH ×3 (02:07→17:57)
[2023-08-17] MEDS: methylPREDNISolone NA SUCC 40 MG/1 ML VIAL IVPUSH SCH ×3 (02:07→22:03)
[2023-08-17] MEDS: ALBUTEROL SO4 2.5/IPRATROPIUM 0.5 INH SOL 3 ML VIAL.NEB. NEB SCH ×7 (04:00→23:44)
[2023-08-17] MEDS: clonazePAM 0.5 MG TABLET GT SCH ×3 (05:42→22:01)
[2023-08-17 08:01] LABS: HEMATOCRIT 30.5 % (35.4-49); HEMOGLOBIN 10.2 GM/dL (11.7-16.9); MCH 28.9 pg (25.7-33.7); MCHC 33.3 g/dl (32.0-35.9); MEAN CELL VOLUME 86.6 fl (80-96); MEAN PLT VOLUME 8.3 fl (7.5-11.1); PLATELET COUNT 149 10^3/uL (134-434); RBC 3.53 M/mm3 (4.00-5.60); RDW 19.3 % (11.9-15.9); WHITE BLOOD COUNT 11.2 K/mm3 (4.0-10.0)
[2023-08-17 08:31] LABS: POTASSIUM 3.6 mmol/L (3.5-5.1)
[2023-08-17 08:34] LABS: BLOOD UREA NITROGEN 10.7 mg/dL (7-18); CALCIUM 8.5 mg/dL (8.5-10.1); MAGNESIUM 1.9 mg/dL (1.8-2.4)
[2023-08-17 08:38] LABS: CREATININE 0.4 mg/dL (0.55-1.3)
[2023-08-17 08:39] LABS: BILIRUBIN,TOTAL 0.6 mg/dL (0.2-1); TOT PROT 6.4 g/dl (6.4-8.2)
[2023-08-17 08:40] LABS: ALBUMIN 2.6 g/dl (3.4-5.0)
[2023-08-17] MEDS: BUDESONIDE 0.5 MG/2 ML INH SUSP VIAL NEB SCH ×2 (09:00→22:45)
[2023-08-17] MEDS: POLYETHYLENE GLYCOL (HEALTHYLAX) 3350 17 GM PACKET GT SCH ×2 (10:15→22:01)
[2023-08-17] MEDS: ASCORBIC ACID 500 MG/5 ML UNIT DOSE CUP PO SCH (10:15)
[2023-08-17] MEDS: METOPROLOL TARTRATE 25 MG TABLET (FP) GT SCH ×2 (10:16→22:00)
[2023-08-17] MEDS: APIXABAN 2.5 MG TABLET GT SCH ×2 (10:19→22:02)
[2023-08-17] MEDS: CHOLECALCIFEROL (VIT D3) 1,000 UNIT (25 MCG) TABLET GT SCH (10:19)
[2023-08-17] MEDS: MULTIVIT-MINERALS ORAL LIQUID PO SCH (10:20)
[2023-08-17] MEDS: carBAMazepine 100 MG/5 ML UNIT-DOSE CUP GT SCH ×2 (10:20→22:02)
[2023-08-17] MEDS: FLUTICASONE PROP 0.05% 16 GM NASAL SPRAY NS SCH (10:20)
[2023-08-17] MEDS: levETIRAcetam 500 MG/5 ML ORAL SOLUTION (UNIT-DOSE CUPS) GT SCH ×2 (10:21→22:01)
[2023-08-17] MEDS: BACLOFEN 10 MG TABLET (FP) GT SCH ×4 (12:23→22:01)
[2023-08-17] MEDS: FAMOTIDINE 20 MG/2.5 ML ORAL LIQUID PO SCH (22:02)
[2023-08-17] MEDS: GLYCOPYRROLATE 1 MG TABLET GT SCH (22:03)
[2023-08-18] MEDS: PIPERACILLIN/TAZOB 3.375 GM 3.375 GM in DEXTROSE 5%-WATER - 50 ML IVPB SCH ×3 (01:47→17:15)
[2023-08-18] MEDS: ALBUTEROL SO4 2.5/IPRATROPIUM 0.5 INH SOL 3 ML VIAL.NEB. NEB SCH ×6 (04:50→23:46)
[2023-08-18] MEDS: clonazePAM 0.5 MG TABLET GT SCH ×3 (05:08→22:47)
[2023-08-18] MEDS: BUDESONIDE 0.5 MG/2 ML INH SUSP VIAL NEB SCH ×2 (09:32→22:00)
[2023-08-18 09:40] LABS: HEMATOCRIT 31.2 % (35.4-49); HEMOGLOBIN 10.5 GM/dL (11.7-16.9); MCH 29.2 pg (25.7-33.7); MCHC 33.5 g/dl (32.0-35.9); MEAN CELL VOLUME 87.1 fl (80-96); MEAN PLT VOLUME 8.2 fl (7.5-11.1); PLATELET COUNT 187 10^3/uL (134-434); RBC 3.59 M/mm3 (4.00-5.60); RDW 19.4 % (11.9-15.9); WHITE BLOOD COUNT 7.2 K/mm3 (4.0-10.0)
[2023-08-18 10:09] LABS: POTASSIUM 3.3 mmol/L (3.5-5.1)
[2023-08-18 10:12] LABS: CALCIUM 8.6 mg/dL (8.5-10.1)
[2023-08-18 10:13] LABS: ALBUMIN 2.6 g/dl (3.4-5.0); BLOOD UREA NITROGEN 10.9 mg/dL (7-18); MAGNESIUM 1.9 mg/dL (1.8-2.4)
[2023-08-18 10:16] LABS: CREATININE 0.4 mg/dL (0.55-1.3); PHOSPHOROUS 4.7 mg/dL (2.5-4.9)
[2023-08-18 10:18] LABS: BILIRUBIN,TOTAL 0.6 mg/dL (0.2-1); TOT PROT 6.4 g/dl (6.4-8.2)
[2023-08-18] MEDS: levETIRAcetam 500 MG/5 ML ORAL SOLUTION (UNIT-DOSE CUPS) GT SCH ×2 (10:20→22:45)
[2023-08-18] MEDS: methylPREDNISolone NA SUCC 40 MG/1 ML VIAL IVPUSH SCH ×2 (10:21→22:46)
[2023-08-18] MEDS: ASCORBIC ACID 500 MG/5 ML UNIT DOSE CUP PO SCH (10:22)
[2023-08-18] MEDS: BACLOFEN 10 MG TABLET (FP) GT SCH ×4 (10:23→22:46)
[2023-08-18] MEDS: APIXABAN 2.5 MG TABLET GT SCH ×2 (10:23→23:04)
[2023-08-18] MEDS: CHOLECALCIFEROL (VIT D3) 1,000 UNIT (25 MCG) TABLET GT SCH (10:23)
[2023-08-18] MEDS: SCOPOLAMINE HYDROBROMIDE 1 PATCH PATCH.TD72 TD SCH (10:23)
[2023-08-18] MEDS: carBAMazepine 100 MG/5 ML UNIT-DOSE CUP GT SCH ×2 (10:24→22:49)
[2023-08-18] MEDS: MULTIVIT-MINERALS ORAL LIQUID PO SCH (10:25)
[2023-08-18] MEDS: FLUTICASONE PROP 0.05% 16 GM NASAL SPRAY NS SCH (10:25)
[2023-08-18] MEDS: POLYETHYLENE GLYCOL (HEALTHYLAX) 3350 17 GM PACKET GT SCH ×2 (10:25→22:48)
[2023-08-18] MEDS: METOPROLOL TARTRATE 25 MG TABLET (FP) GT SCH ×2 (11:33→22:47)
[2023-08-18] MEDS ORDERED: POTASSIUM CHLORIDE ORAL LIQUID 20 MEQ/15 ML PEG ONE (16:46)
[2023-08-18] MEDS: FAMOTIDINE 20 MG/2.5 ML ORAL LIQUID PO SCH (22:49)
[2023-08-18] MEDS: GLYCOPYRROLATE 1 MG TABLET GT SCH (22:49)
[2023-08-19] MEDS: PIPERACILLIN/TAZOB 3.375 GM 3.375 GM in DEXTROSE 5%-WATER - 50 ML IVPB SCH ×3 (01:32→18:20)
[2023-08-19] MEDS: ALBUTEROL SO4 2.5/IPRATROPIUM 0.5 INH SOL 3 ML VIAL.NEB. NEB SCH ×5 (04:00→21:00)
[2023-08-19] MEDS: clonazePAM 0.5 MG TABLET GT SCH ×2 (05:37→13:48)
[2023-08-19 07:21] LABS: HEMOGLOBIN 11.1 GM/dL (11.7-16.9); MCH 29.5 pg (25.7-33.7); MCHC 33.6 g/dl (32.0-35.9); MEAN CELL VOLUME 87.7 fl (80-96); MEAN PLT VOLUME 7.4 fl (7.5-11.1); PLATELET COUNT 236 10^3/uL (134-434); RBC 3.77 M/mm3 (4.00-5.60)
[2023-08-19 07:48] LABS: ALBUMIN 2.8 g/dl (3.4-5.0); BLOOD UREA NITROGEN 10.2 mg/dL (7-18); CALCIUM 8.8 mg/dL (8.5-10.1); MAGNESIUM 2.2 mg/dL (1.8-2.4)
[2023-08-19 07:51] LABS: CREATININE 0.4 mg/dL (0.55-1.3); PHOSPHOROUS 4.2 mg/dL (2.5-4.9)
[2023-08-19 07:52] LABS: BILIRUBIN,TOTAL 0.5 mg/dL (0.2-1); TOT PROT 6.8 g/dl (6.4-8.2)
[2023-08-19] MEDS: BUDESONIDE 0.5 MG/2 ML INH SUSP VIAL NEB SCH ×2 (09:52→21:00)
[2023-08-19] MEDS: MULTIVIT-MINERALS ORAL LIQUID PO SCH (10:31)
[2023-08-19] MEDS: FLUTICASONE PROP 0.05% 16 GM NASAL SPRAY NS SCH (10:33)
[2023-08-19] MEDS: carBAMazepine 100 MG/5 ML UNIT-DOSE CUP GT SCH ×2 (10:33→23:01)
[2023-08-19] MEDS: methylPREDNISolone NA SUCC 40 MG/1 ML VIAL IVPUSH SCH ×2 (10:43→23:02)
[2023-08-19] MEDS: levETIRAcetam 500 MG/5 ML ORAL SOLUTION (UNIT-DOSE CUPS) GT SCH ×2 (10:43→23:00)
[2023-08-19] MEDS: ASCORBIC ACID 500 MG/5 ML UNIT DOSE CUP PO SCH (10:43)
[2023-08-19] MEDS: APIXABAN 2.5 MG TABLET GT SCH ×2 (10:44→23:00)
[2023-08-19] MEDS: METOPROLOL TARTRATE 25 MG TABLET (FP) GT SCH ×2 (10:44→23:02)
[2023-08-19] MEDS: BACLOFEN 10 MG TABLET (FP) GT SCH ×4 (10:44→23:00)
[2023-08-19] MEDS: POLYETHYLENE GLYCOL (HEALTHYLAX) 3350 17 GM PACKET GT SCH ×2 (10:45→23:00)
[2023-08-19] MEDS: CHOLECALCIFEROL (VIT D3) 1,000 UNIT (25 MCG) TABLET GT SCH (10:45)
[2023-08-19] MEDS: GLYCOPYRROLATE 1 MG TABLET GT SCH (23:01)
[2023-08-19] MEDS: FAMOTIDINE 20 MG/2.5 ML ORAL LIQUID PO SCH (23:01)
[2023-08-20] MEDS: ALBUTEROL SO4 2.5/IPRATROPIUM 0.5 INH SOL 3 ML VIAL.NEB. NEB SCH ×6 (01:05→20:30)
[2023-08-20] MEDS: PIPERACILLIN/TAZOB 3.375 GM 3.375 GM in DEXTROSE 5%-WATER - 50 ML IVPB SCH ×3 (02:28→17:23)
[2023-08-20 08:07] LABS: HEMATOCRIT 33.4 % (35.4-49); HEMOGLOBIN 10.9 GM/dL (11.7-16.9); MCH 29.4 pg (25.7-33.7); MCHC 32.7 g/dl (32.0-35.9); MEAN PLT VOLUME 7.6 fl (7.5-11.1); PLATELET COUNT 264 10^3/uL (134-434); RBC 3.72 M/mm3 (4.00-5.60); RDW 19.4 % (11.9-15.9); WHITE BLOOD COUNT 11.2 K/mm3 (4.0-10.0)
[2023-08-20 08:24] LABS: POTASSIUM 3.8 mmol/L (3.5-5.1)
[2023-08-20 08:30] LABS: ALBUMIN 2.8 g/dl (3.4-5.0); CALCIUM 8.8 mg/dL (8.5-10.1)
[2023-08-20 08:31] LABS: BLOOD UREA NITROGEN 14.8 mg/dL (7-18); MAGNESIUM 2.3 mg/dL (1.8-2.4)
[2023-08-20 08:32] LABS: CREATININE 0.5 mg/dL (0.55-1.3); PHOSPHOROUS 4.5 mg/dL (2.5-4.9)
[2023-08-20 08:33] LABS: BILIRUBIN,TOTAL 0.8 mg/dL (0.2-1); TOT PROT 7.1 g/dl (6.4-8.2)
[2023-08-20] MEDS: BUDESONIDE 0.5 MG/2 ML INH SUSP VIAL NEB SCH ×2 (09:07→22:00)
[2023-08-20] MEDS ORDERED: SODIUM CHLORIDE 250 ML IV STA (09:24)
[2023-08-20] MEDS: levETIRAcetam 500 MG/5 ML ORAL SOLUTION (UNIT-DOSE CUPS) GT SCH ×2 (09:51→23:01)
[2023-08-20] MEDS: CHOLECALCIFEROL (VIT D3) 1,000 UNIT (25 MCG) TABLET GT SCH (09:52)
[2023-08-20] MEDS: ASCORBIC ACID 500 MG/5 ML UNIT DOSE CUP PO SCH (09:52)
[2023-08-20] MEDS: carBAMazepine 100 MG/5 ML UNIT-DOSE CUP GT SCH ×2 (09:52→23:01)
[2023-08-20] MEDS: APIXABAN 2.5 MG TABLET GT SCH ×2 (09:53→23:02)
[2023-08-20] MEDS: POLYETHYLENE GLYCOL (HEALTHYLAX) 3350 17 GM PACKET GT SCH ×2 (09:53→23:07)
[2023-08-20] MEDS: MULTIVIT-MINERALS ORAL LIQUID PO SCH (09:53)
[2023-08-20] MEDS: FLUTICASONE PROP 0.05% 16 GM NASAL SPRAY NS SCH (09:53)
[2023-08-20] MEDS: BACLOFEN 10 MG TABLET (FP) GT SCH ×4 (09:53→23:07)
[2023-08-20] MEDS: methylPREDNISolone NA SUCC 40 MG/1 ML VIAL IVPUSH SCH ×2 (09:54→23:02)
[2023-08-20] MEDS: FAMOTIDINE 20 MG/2.5 ML ORAL LIQUID PO SCH (23:02)
[2023-08-21] MEDS: ALBUTEROL SO4 2.5/IPRATROPIUM 0.5 INH SOL 3 ML VIAL.NEB. NEB SCH ×6 (00:04→20:16)
[2023-08-21] MEDS: PIPERACILLIN/TAZOB 3.375 GM 3.375 GM in DEXTROSE 5%-WATER - 50 ML IVPB SCH ×3 (04:26→17:44)
[2023-08-21] MEDS: GLYCOPYRROLATE 1 MG TABLET GT SCH ×2 (06:28→22:39)
[2023-08-21 08:42] LABS: HEMATOCRIT 33.4 % (35.4-49); MCH 29.7 pg (25.7-33.7); MEAN CELL VOLUME 90.1 fl (80-96); MEAN PLT VOLUME 7.3 fl (7.5-11.1); PLATELET COUNT 301 10^3/uL (134-434); RBC 3.71 M/mm3 (4.00-5.60); RDW 19.7 % (11.9-15.9); WHITE BLOOD COUNT 10.6 K/mm3 (4.0-10.0)
[2023-08-21 09:16] LABS: ALBUMIN 2.9 g/dl (3.4-5.0); BILIRUBIN,TOTAL 1.1 mg/dL (0.2-1); CREATININE 0.6 mg/dL (0.55-1.3); POTASSIUM 3.5 mmol/L (3.5-5.1); TOT PROT 7.3 g/dl (6.4-8.2)
[2023-08-21] MEDS: BACLOFEN 10 MG TABLET (FP) GT SCH ×4 (10:35→22:38)
[2023-08-21] MEDS: CHOLECALCIFEROL (VIT D3) 1,000 UNIT (25 MCG) TABLET GT SCH (10:35)
[2023-08-21] MEDS: levETIRAcetam 500 MG/5 ML ORAL SOLUTION (UNIT-DOSE CUPS) GT SCH ×2 (10:35→22:39)
[2023-08-21] MEDS: methylPREDNISolone NA SUCC 40 MG/1 ML VIAL IVPUSH SCH ×2 (10:35→22:39)
[2023-08-21] MEDS: SCOPOLAMINE HYDROBROMIDE 1 PATCH PATCH.TD72 TD SCH (10:35)
[2023-08-21] MEDS: POLYETHYLENE GLYCOL (HEALTHYLAX) 3350 17 GM PACKET GT SCH ×2 (10:35→22:40)
[2023-08-21] MEDS: ASCORBIC ACID 500 MG/5 ML UNIT DOSE CUP PO SCH (10:35)
[2023-08-21] MEDS: APIXABAN 2.5 MG TABLET GT SCH ×2 (10:35→22:39)
[2023-08-21] MEDS: FLUTICASONE PROP 0.05% 16 GM NASAL SPRAY NS SCH (10:37)
[2023-08-21] MEDS: MULTIVIT-MINERALS ORAL LIQUID PO SCH (10:37)
[2023-08-21] MEDS: carBAMazepine 100 MG/5 ML UNIT-DOSE CUP GT SCH ×2 (10:37→22:39)
[2023-08-21] MEDS: BUDESONIDE 0.5 MG/2 ML INH SUSP VIAL NEB SCH ×2 (11:34→22:11)
[2023-08-21] MEDS: FAMOTIDINE 20 MG/2.5 ML ORAL LIQUID PO SCH (22:39)
[2023-08-22] MEDS: ALBUTEROL SO4 2.5/IPRATROPIUM 0.5 INH SOL 3 ML VIAL.NEB. NEB SCH ×6 (01:11→21:23)
[2023-08-22] MEDS: PIPERACILLIN/TAZOB 3.375 GM 3.375 GM in DEXTROSE 5%-WATER - 50 ML IVPB SCH ×3 (02:01→16:59)
[2023-08-22] MEDS ORDERED: clonazePAM 0.5 MG TABLET GT ONE (03:18)
[2023-08-22] MEDS ORDERED: ACETAMINOPHEN 1000 MG/100 ML BAG IVPB ONE (05:40)
[2023-08-22] MEDS ORDERED: clonazePAM 0.5 MG TABLET GT SCH ×2 (06:00→15:00)
[2023-08-22 07:39] LABS: HEMATOCRIT 32.5 % (35.4-49); HEMOGLOBIN 10.6 GM/dL (11.7-16.9); MCH 29.6 pg (25.7-33.7); MCHC 32.7 g/dl (32.0-35.9); MEAN CELL VOLUME 90.6 fl (80-96); MEAN PLT VOLUME 7.1 fl (7.5-11.1); PLATELET COUNT 337 10^3/uL (134-434); RBC 3.58 M/mm3 (4.00-5.60); RDW 19.4 % (11.9-15.9); WHITE BLOOD COUNT 7.6 K/mm3 (4.0-10.0)
[2023-08-22 07:47] LABS: POTASSIUM 3.4 mmol/L (3.5-5.1)
[2023-08-22 07:57] LABS: BLOOD UREA NITROGEN 23.2 mg/dL (7-18); CALCIUM 9.1 mg/dL (8.5-10.1)
[2023-08-22 07:58] LABS: ALBUMIN 2.9 g/dl (3.4-5.0)
[2023-08-22 08:01] LABS: CREATININE 0.5 mg/dL (0.55-1.3)
[2023-08-22 08:02] LABS: TOT PROT 7.2 g/dl (6.4-8.2)
[2023-08-22 08:16] LABS: BILIRUBIN,TOTAL 0.7 mg/dL (0.2-1)
[2023-08-22] MEDS: BUDESONIDE 0.5 MG/2 ML INH SUSP VIAL NEB SCH ×2 (09:00→21:23)
[2023-08-22] MEDS: carBAMazepine 100 MG/5 ML UNIT-DOSE CUP GT SCH ×2 (10:53→21:53)
[2023-08-22] MEDS: MULTIVIT-MINERALS ORAL LIQUID PO SCH (10:54)
[2023-08-22] MEDS: POLYETHYLENE GLYCOL (HEALTHYLAX) 3350 17 GM PACKET GT SCH ×2 (10:56→21:52)
[2023-08-22] MEDS: levETIRAcetam 500 MG/5 ML ORAL SOLUTION (UNIT-DOSE CUPS) GT SCH ×2 (10:57→21:52)
[2023-08-22] MEDS: methylPREDNISolone NA SUCC 40 MG/1 ML VIAL IVPUSH SCH ×2 (10:57→21:53)
[2023-08-22] MEDS: BACLOFEN 10 MG TABLET (FP) GT SCH ×4 (10:57→21:53)
[2023-08-22] MEDS: ASCORBIC ACID 500 MG/5 ML UNIT DOSE CUP PO SCH (10:58)
[2023-08-22] MEDS: CHOLECALCIFEROL (VIT D3) 1,000 UNIT (25 MCG) TABLET GT SCH (10:59)
[2023-08-22] MEDS: APIXABAN 2.5 MG TABLET GT SCH ×2 (11:08→21:53)
[2023-08-22] MEDS: FLUTICASONE PROP 0.05% 16 GM NASAL SPRAY NS SCH (11:08)
[2023-08-22] MEDS: clonazePAM 0.5 MG TABLET GT SCH ×2 (16:05→21:53)
[2023-08-22 18:42] LABS: EPI CELLS 24 /uL (0-25.1); HYALINE CASTS 2 /uL (0-3.1); PH,URINE 6.5 (5.0-8.0); URINE APPEARANCE CLEAR; URINE BACTERIA 33 /uL (0-1359); URINE BILIRUBIN NEGATIVE (NEGATIVE); URINE COLOR DK YELLOW; URINE GLUCOSE (UA) NEGATIVE (NEGATIVE); URINE KETONE NEGATIVE (NEGATIVE); URINE LEUK ESTERASE NEGATIVE (NEGATIVE); URINE NITRITE NEGATIVE (NEGATIVE); URINE PROTEIN 1+ (NEGATIVE); URINE RBC 546 /uL (0-23.9); URINE WBC 17 /uL (0-25.8)
[2023-08-22] MEDS: GLYCOPYRROLATE 1 MG TABLET GT SCH (21:53)
[2023-08-22] MEDS: FAMOTIDINE 20 MG/2.5 ML ORAL LIQUID PO SCH (23:03)
[2023-08-23] MEDS: ALBUTEROL SO4 2.5/IPRATROPIUM 0.5 INH SOL 3 ML VIAL.NEB. NEB SCH ×7 (00:30→20:19)
[2023-08-23] MEDS: PIPERACILLIN/TAZOB 3.375 GM 3.375 GM in DEXTROSE 5%-WATER - 50 ML IVPB SCH ×3 (01:53→17:17)
[2023-08-23] MEDS: clonazePAM 0.5 MG TABLET GT SCH ×3 (05:07→21:45)
[2023-08-23 08:56] LABS: HEMOGLOBIN 10.7 GM/dL (11.7-16.9); MCH 29.6 pg (25.7-33.7); MCHC 32.5 g/dl (32.0-35.9); MEAN PLT VOLUME 7.5 fl (7.5-11.1); PLATELET COUNT 358 10^3/uL (134-434); RBC 3.63 M/mm3 (4.00-5.60); RDW 18.9 % (11.9-15.9); WHITE BLOOD COUNT 11.3 K/mm3 (4.0-10.0)
[2023-08-23 09:12] LABS: POTASSIUM 3.1 mmol/L (3.5-5.1)
[2023-08-23 09:16] LABS: ALBUMIN 2.9 g/dl (3.4-5.0); BLOOD UREA NITROGEN 24.8 mg/dL (7-18); CALCIUM 8.7 mg/dL (8.5-10.1); MAGNESIUM 2.4 mg/dL (1.8-2.4)
[2023-08-23 09:19] LABS: BILIRUBIN,DIRECT 0.2 mg/dL (0.0-0.2); CREATININE 0.5 mg/dL (0.55-1.3); PHOSPHOROUS 3.8 mg/dL (2.5-4.9)
[2023-08-23 09:21] LABS: BILIRUBIN,TOTAL 0.9 mg/dL (0.2-1); TOT PROT 7.2 g/dl (6.4-8.2)
[2023-08-23] MEDS: BUDESONIDE 0.5 MG/2 ML INH SUSP VIAL NEB SCH ×2 (10:30→21:16)
[2023-08-23] MEDS: CHOLECALCIFEROL (VIT D3) 1,000 UNIT (25 MCG) TABLET GT SCH (10:40)
[2023-08-23] MEDS: APIXABAN 2.5 MG TABLET GT SCH ×2 (10:40→21:46)
[2023-08-23] MEDS: levETIRAcetam 500 MG/5 ML ORAL SOLUTION (UNIT-DOSE CUPS) GT SCH ×2 (10:40→21:44)
[2023-08-23] MEDS: MULTIVIT-MINERALS ORAL LIQUID PO SCH (10:41)
[2023-08-23] MEDS: BACLOFEN 10 MG TABLET (FP) GT SCH ×4 (10:42→21:46)
[2023-08-23] MEDS: FLUTICASONE PROP 0.05% 16 GM NASAL SPRAY NS SCH (10:43)
[2023-08-23] MEDS: carBAMazepine 100 MG/5 ML UNIT-DOSE CUP GT SCH ×2 (10:43→21:45)
[2023-08-23] MEDS: POLYETHYLENE GLYCOL (HEALTHYLAX) 3350 17 GM PACKET GT SCH ×2 (10:43→21:46)
[2023-08-23] MEDS: methylPREDNISolone NA SUCC 40 MG/1 ML VIAL IVPUSH SCH ×2 (10:43→21:46)
[2023-08-23] MEDS: ASCORBIC ACID 500 MG/5 ML UNIT DOSE CUP PO SCH (10:44)
[2023-08-23] MEDS ORDERED: POTASSIUM CHLORIDE ORAL LIQUID 20 MEQ/15 ML GT ONE (19:45)
[2023-08-23] MEDS: FAMOTIDINE 20 MG/2.5 ML ORAL LIQUID PO SCH (21:45)
[2023-08-23] MEDS: GLYCOPYRROLATE 1 MG TABLET GT SCH (21:46)
[2023-08-24] MEDS: PIPERACILLIN/TAZOB 3.375 GM 3.375 GM in DEXTROSE 5%-WATER - 50 ML IVPB SCH ×3 (03:08→17:56)
[2023-08-24] MEDS: clonazePAM 0.5 MG TABLET GT SCH ×3 (05:30→22:00)
[2023-08-24] MEDS ORDERED: TUBE FEED DECLOGGING SOLUTION 12,000 UNITS GT ONE (06:14)
[2023-08-24 07:55] LABS: BASO % 0.1 % (0-2.0); EOS % 0.1 % (0-4.5); HEMATOCRIT 33.8 % (35.4-49); HEMOGLOBIN 10.9 GM/dL (11.7-16.9); LYMPH % 22.6 % (8-40); MCH 29.3 pg (25.7-33.7); MCHC 32.3 g/dl (32.0-35.9); MEAN CELL VOLUME 90.6 fl (80-96); MEAN PLT VOLUME 7.2 fl (7.5-11.1); NEUT % 69.2 % (42.8-82.8); PLATELET COUNT 353 10^3/uL (134-434); RBC 3.73 M/mm3 (4.00-5.60); RDW 18.7 % (11.9-15.9); WHITE BLOOD COUNT 8.7 K/mm3 (4.0-10.0)
[2023-08-24] MEDS: ALBUTEROL SO4 2.5/IPRATROPIUM 0.5 INH SOL 3 ML VIAL.NEB. NEB SCH ×4 (07:55→20:30)
[2023-08-24 08:06] LABS: POTASSIUM 3.8 mmol/L (3.5-5.1)
[2023-08-24 08:08] LABS: CALCIUM 9.1 mg/dL (8.5-10.1)
[2023-08-24 08:09] LABS: BLOOD UREA NITROGEN 17.1 mg/dL (7-18)
[2023-08-24 08:12] LABS: CREATININE 0.5 mg/dL (0.55-1.3)
[2023-08-24 08:13] LABS: TOT PROT 7.5 g/dl (6.4-8.2)
[2023-08-24] MEDS: BUDESONIDE 0.5 MG/2 ML INH SUSP VIAL NEB SCH ×2 (09:15→22:37)
[2023-08-24] MEDS: SCOPOLAMINE HYDROBROMIDE 1 PATCH PATCH.TD72 TD SCH (12:46)
[2023-08-24] MEDS: methylPREDNISolone NA SUCC 40 MG/1 ML VIAL IVPUSH SCH ×2 (12:46→22:02)
[2023-08-24] MEDS: FLUTICASONE PROP 0.05% 16 GM NASAL SPRAY NS SCH (12:47)
[2023-08-24] MEDS: ACETAMINOPHEN 1000 MG/100 ML BAG IVPB PRN (12:48)
[2023-08-24] MEDS: APIXABAN 2.5 MG TABLET GT SCH ×2 (14:22→22:00)
[2023-08-24] MEDS: CHOLECALCIFEROL (VIT D3) 1,000 UNIT (25 MCG) TABLET GT SCH (14:22)
[2023-08-24] MEDS: ASCORBIC ACID 500 MG/5 ML UNIT DOSE CUP PO SCH (14:23)
[2023-08-24] MEDS: BACLOFEN 10 MG TABLET (FP) GT SCH ×4 (14:23→22:00)
[2023-08-24] MEDS: levETIRAcetam 500 MG/5 ML ORAL SOLUTION (UNIT-DOSE CUPS) GT SCH ×2 (14:23→21:59)
[2023-08-24] MEDS: MULTIVIT-MINERALS ORAL LIQUID PO SCH (14:24)
[2023-08-24] MEDS: POLYETHYLENE GLYCOL (HEALTHYLAX) 3350 17 GM PACKET GT SCH ×2 (14:25→22:01)
[2023-08-24] MEDS: carBAMazepine 100 MG/5 ML UNIT-DOSE CUP GT SCH ×2 (14:25→22:00)
[2023-08-24] MEDS: GLYCOPYRROLATE 1 MG TABLET GT SCH (22:00)
[2023-08-24] MEDS: FAMOTIDINE 20 MG/2.5 ML ORAL LIQUID PO SCH (22:01)
[2023-08-25] MEDS: PIPERACILLIN/TAZOB 3.375 GM 3.375 GM in DEXTROSE 5%-WATER - 50 ML IVPB SCH ×2 (02:59→09:23)
[2023-08-25] MEDS: clonazePAM 0.5 MG TABLET GT SCH ×3 (05:28→21:07)
[2023-08-25] MEDS: ACETAMINOPHEN 1000 MG/100 ML BAG IVPB PRN (06:16)
[2023-08-25 07:40] LABS: POTASSIUM 3.2 mmol/L (3.5-5.1)
[2023-08-25 07:43] LABS: ALBUMIN 2.6 g/dl (3.4-5.0); CALCIUM 8.5 mg/dL (8.5-10.1)
[2023-08-25 07:44] LABS: BLOOD UREA NITROGEN 16.2 mg/dL (7-18)
[2023-08-25 07:46] LABS: CREATININE 0.4 mg/dL (0.55-1.3)
[2023-08-25 07:48] LABS: BILIRUBIN,TOTAL 0.3 mg/dL (0.2-1); TOT PROT 6.5 g/dl (6.4-8.2)
[2023-08-25 07:49] LABS: BASO % 0.2 % (0-2.0); EOS % 0.2 % (0-4.5); HEMATOCRIT 30.7 % (35.4-49); HEMOGLOBIN 10.2 GM/dL (11.7-16.9); LYMPH % 17.8 % (8-40); MCH 30.1 pg (25.7-33.7); MCHC 33.2 g/dl (32.0-35.9); MEAN CELL VOLUME 90.8 fl (80-96); MEAN PLT VOLUME 7.5 fl (7.5-11.1); MONO % 5.8 % (3.8-10.2); PLATELET COUNT 324 10^3/uL (134-434); RBC 3.39 M/mm3 (4.00-5.60); RDW 18.6 % (11.9-15.9); WHITE BLOOD COUNT 7.2 K/mm3 (4.0-10.0)
[2023-08-25] MEDS: ALBUTEROL SO4 2.5/IPRATROPIUM 0.5 INH SOL 3 ML VIAL.NEB. NEB SCH ×4 (09:00→20:46)
[2023-08-25] MEDS: BUDESONIDE 0.5 MG/2 ML INH SUSP VIAL NEB SCH ×2 (09:10→21:08)
[2023-08-25] MEDS: ASCORBIC ACID 500 MG/5 ML UNIT DOSE CUP PO SCH (09:23)
[2023-08-25] MEDS: methylPREDNISolone NA SUCC 40 MG/1 ML VIAL IVPUSH SCH ×2 (09:23→21:04)
[2023-08-25] MEDS: levETIRAcetam 500 MG/5 ML ORAL SOLUTION (UNIT-DOSE CUPS) GT SCH ×2 (09:23→21:04)
[2023-08-25] MEDS: BACLOFEN 10 MG TABLET (FP) GT SCH ×4 (09:24→21:06)
[2023-08-25] MEDS: MULTIVIT-MINERALS ORAL LIQUID PO SCH (09:24)
[2023-08-25] MEDS: CHOLECALCIFEROL (VIT D3) 1,000 UNIT (25 MCG) TABLET GT SCH (09:24)
[2023-08-25] MEDS: FLUTICASONE PROP 0.05% 16 GM NASAL SPRAY NS SCH (09:24)
[2023-08-25] MEDS: APIXABAN 2.5 MG TABLET GT SCH ×2 (09:24→21:07)
[2023-08-25] MEDS: POLYETHYLENE GLYCOL (HEALTHYLAX) 3350 17 GM PACKET GT SCH ×2 (09:25→21:04)
[2023-08-25] MEDS ORDERED: POTASSIUM CHLORIDE ORAL LIQUID 20 MEQ/15 ML PO ONE (11:45)
[2023-08-25] MEDS: carBAMazepine 100 MG/5 ML UNIT-DOSE CUP GT SCH ×2 (14:58→21:12)
[2023-08-25] MEDS: FAMOTIDINE 20 MG/2.5 ML ORAL LIQUID PO SCH (21:11)
[2023-08-25] MEDS: GLYCOPYRROLATE 1 MG TABLET GT SCH (21:12)
[2023-08-25] MEDS: BACITRACIN ZINC 15 GM TUBE TOPICAL OINTMENT TP SCH (21:23)
[2023-08-25] MEDS ORDERED: ACETAMINOPHEN 1000 MG/100 ML BAG IVPB ONE (21:54)
[2023-08-26] MEDS: clonazePAM 0.5 MG TABLET GT SCH ×3 (05:31→21:12)
[2023-08-26] MEDS: ALBUTEROL SO4 2.5/IPRATROPIUM 0.5 INH SOL 3 ML VIAL.NEB. NEB SCH ×4 (07:26→20:33)
[2023-08-26 07:54] LABS: HEMATOCRIT 28.8 % (35.4-49); HEMOGLOBIN 9.5 GM/dL (11.7-16.9); MCH 29.9 pg (25.7-33.7); MCHC 33.1 g/dl (32.0-35.9); MEAN CELL VOLUME 90.1 fl (80-96); MEAN PLT VOLUME 7.9 fl (7.5-11.1); PLATELET COUNT 457 10^3/uL (134-434); RBC 3.19 M/mm3 (4.00-5.60); RDW 18.4 % (11.9-15.9); WHITE BLOOD COUNT 9.2 K/mm3 (4.0-10.0)
[2023-08-26 08:17] LABS: POTASSIUM 4.4 mmol/L (3.5-5.1)
[2023-08-26 08:26] LABS: BILIRUBIN,TOTAL 0.2 mg/dL (0.2-1)
[2023-08-26 08:47] LABS: CALCIUM 8.9 mg/dL (8.5-10.1)
[2023-08-26 08:48] LABS: BLOOD UREA NITROGEN 13.2 mg/dL (7-18); MAGNESIUM 2.4 mg/dL (1.8-2.4)
[2023-08-26 08:49] LABS: CREATININE 0.4 mg/dL (0.55-1.3)
[2023-08-26 08:52] LABS: PHOSPHOROUS 3.4 mg/dL (2.5-4.9); TOT PROT 7.3 g/dl (6.4-8.2)
[2023-08-26] MEDS: BUDESONIDE 0.5 MG/2 ML INH SUSP VIAL NEB SCH ×2 (09:07→21:38)
[2023-08-26] MEDS: ASCORBIC ACID 500 MG/5 ML UNIT DOSE CUP PO SCH (09:52)
[2023-08-26] MEDS: levETIRAcetam 500 MG/5 ML ORAL SOLUTION (UNIT-DOSE CUPS) GT SCH ×2 (09:52→21:11)
[2023-08-26] MEDS: BACLOFEN 10 MG TABLET (FP) GT SCH ×4 (09:53→21:14)
[2023-08-26] MEDS: POLYETHYLENE GLYCOL (HEALTHYLAX) 3350 17 GM PACKET GT SCH ×2 (09:53→21:14)
[2023-08-26] MEDS: APIXABAN 2.5 MG TABLET GT SCH ×2 (09:56→21:12)
[2023-08-26] MEDS: predniSONE 20 MG TABLET (UD) GT SCH (09:56)
[2023-08-26] MEDS: CHOLECALCIFEROL (VIT D3) 1,000 UNIT (25 MCG) TABLET GT SCH (09:56)
[2023-08-26] MEDS: carBAMazepine 100 MG/5 ML UNIT-DOSE CUP GT SCH ×2 (09:58→21:16)
[2023-08-26] MEDS: MULTIVIT-MINERALS ORAL LIQUID PO SCH (09:58)
[2023-08-26] MEDS ORDERED: predniSONE 5 MG/5 ML ORAL SOLN- UNIT-DOSE CUP GT SCH (10:00)
[2023-08-26] MEDS: FLUTICASONE PROP 0.05% 16 GM NASAL SPRAY NS SCH (10:04)
[2023-08-26] MEDS: BACITRACIN ZINC 15 GM TUBE TOPICAL OINTMENT TP SCH ×2 (11:45→21:33)
[2023-08-26] MEDS ORDERED: metoPROLOL SUCCINATE 25 MG TAB.SR.24H (FP) PO SCH (14:15)
[2023-08-26] MEDS: METOPROLOL TARTRATE 25 MG TABLET (FP) PO SCH ×2 (14:45→21:12)
[2023-08-26] MEDS: GLYCOPYRROLATE 1 MG TABLET GT SCH (21:15)
[2023-08-26] MEDS: FAMOTIDINE 20 MG/2.5 ML ORAL LIQUID PO SCH (22:36)
[2023-08-27] MEDS: clonazePAM 0.5 MG TABLET GT SCH ×3 (05:22→22:13)
[2023-08-27] MEDS: ALBUTEROL SO4 2.5/IPRATROPIUM 0.5 INH SOL 3 ML VIAL.NEB. NEB SCH ×4 (08:03→20:00)
[2023-08-27] MEDS: BUDESONIDE 0.5 MG/2 ML INH SUSP VIAL NEB SCH ×2 (09:46→21:30)
[2023-08-27 09:53] LABS: HEMATOCRIT 33.6 % (35.4-49); HEMOGLOBIN 10.9 GM/dL (11.7-16.9); MCH 29.6 pg (25.7-33.7); MCHC 32.5 g/dl (32.0-35.9); MEAN PLT VOLUME 7.8 fl (7.5-11.1); PLATELET COUNT 432 10^3/uL (134-434); RBC 3.69 M/mm3 (4.00-5.60); RDW 18.9 % (11.9-15.9); WHITE BLOOD COUNT 8.6 K/mm3 (4.0-10.0)
[2023-08-27 10:52] LABS: POTASSIUM 3.7 mmol/L (3.5-5.1)
[2023-08-27 10:54] LABS: CALCIUM 9.1 mg/dL (8.5-10.1)
[2023-08-27 10:56] LABS: ALBUMIN 2.8 g/dl (3.4-5.0); BLOOD UREA NITROGEN 15.9 mg/dL (7-18); MAGNESIUM 2.3 mg/dL (1.8-2.4)
[2023-08-27 10:59] LABS: BILIRUBIN,TOTAL 0.2 mg/dL (0.2-1); CREATININE 0.4 mg/dL (0.55-1.3); PHOSPHOROUS 4.1 mg/dL (2.5-4.9); TOT PROT 6.8 g/dl (6.4-8.2)
[2023-08-27] MEDS: POLYETHYLENE GLYCOL (HEALTHYLAX) 3350 17 GM PACKET GT SCH ×2 (11:46→22:14)
[2023-08-27] MEDS: CHOLECALCIFEROL (VIT D3) 1,000 UNIT (25 MCG) TABLET GT SCH (11:46)
[2023-08-27] MEDS: APIXABAN 2.5 MG TABLET GT SCH ×2 (11:47→22:13)
[2023-08-27] MEDS: BACLOFEN 10 MG TABLET (FP) GT SCH ×4 (11:47→22:13)
[2023-08-27] MEDS: predniSONE 20 MG TABLET (UD) GT SCH (11:47)
[2023-08-27] MEDS: METOPROLOL TARTRATE 25 MG TABLET (FP) PO SCH ×2 (11:48→22:13)
[2023-08-27] MEDS: SCOPOLAMINE HYDROBROMIDE 1 PATCH PATCH.TD72 TD SCH (11:49)
[2023-08-27] MEDS: MULTIVIT-MINERALS ORAL LIQUID PO SCH (11:49)
[2023-08-27] MEDS: levETIRAcetam 500 MG/5 ML ORAL SOLUTION (UNIT-DOSE CUPS) GT SCH ×2 (11:50→22:13)
[2023-08-27] MEDS: carBAMazepine 100 MG/5 ML UNIT-DOSE CUP GT SCH ×2 (11:50→22:14)
[2023-08-27] MEDS: ASCORBIC ACID 500 MG/5 ML UNIT DOSE CUP PO SCH (11:50)
[2023-08-27] MEDS: FLUTICASONE PROP 0.05% 16 GM NASAL SPRAY NS SCH (12:20)
[2023-08-27] MEDS: BACITRACIN ZINC 15 GM TUBE TOPICAL OINTMENT TP SCH ×2 (12:20→22:14)
[2023-08-27] MEDS: DOXAZOSIN MESYLATE 1 MG TABLET PO SCH (16:15)
[2023-08-27] MEDS: FAMOTIDINE 20 MG/2.5 ML ORAL LIQUID PO SCH (22:13)
[2023-08-27] MEDS: GLYCOPYRROLATE 1 MG TABLET GT SCH (22:14)
[2023-08-28] MEDS: clonazePAM 0.5 MG TABLET GT SCH ×3 (05:53→21:52)
[2023-08-28] MEDS: ALBUTEROL SO4 2.5/IPRATROPIUM 0.5 INH SOL 3 ML VIAL.NEB. NEB SCH ×5 (08:04→20:45)
[2023-08-28] MEDS: BUDESONIDE 0.5 MG/2 ML INH SUSP VIAL NEB SCH ×2 (09:30→21:07)
[2023-08-28] MEDS: ASCORBIC ACID 500 MG/5 ML UNIT DOSE CUP PO SCH (10:59)
[2023-08-28] MEDS: levETIRAcetam 500 MG/5 ML ORAL SOLUTION (UNIT-DOSE CUPS) GT SCH ×2 (10:59→21:52)
[2023-08-28] MEDS: BACLOFEN 10 MG TABLET (FP) GT SCH ×4 (11:00→21:52)
[2023-08-28] MEDS: METOPROLOL TARTRATE 25 MG TABLET (FP) PO SCH ×2 (11:00→21:52)
[2023-08-28] MEDS: APIXABAN 2.5 MG TABLET GT SCH ×2 (11:00→21:53)
[2023-08-28] MEDS: predniSONE 20 MG TABLET (UD) GT SCH (11:01)
[2023-08-28] MEDS: BACITRACIN ZINC 15 GM TUBE TOPICAL OINTMENT TP SCH ×2 (11:01→21:53)
[2023-08-28] MEDS: CHOLECALCIFEROL (VIT D3) 1,000 UNIT (25 MCG) TABLET GT SCH (11:01)
[2023-08-28] MEDS: carBAMazepine 100 MG/5 ML UNIT-DOSE CUP GT SCH ×2 (11:01→21:53)
[2023-08-28] MEDS: DOXAZOSIN MESYLATE 1 MG TABLET PO SCH (11:01)
[2023-08-28] MEDS: FLUTICASONE PROP 0.05% 16 GM NASAL SPRAY NS SCH (11:02)
[2023-08-28] MEDS: MULTIVIT-MINERALS ORAL LIQUID PO SCH (11:02)
[2023-08-28] MEDS: POLYETHYLENE GLYCOL (HEALTHYLAX) 3350 17 GM PACKET GT SCH ×2 (11:02→21:53)
[2023-08-28 12:41] LABS: HEMOGLOBIN 11.2 GM/dL (11.7-16.9); MCH 30.4 pg (25.7-33.7); MCHC 32.9 g/dl (32.0-35.9); MEAN CELL VOLUME 92.3 fl (80-96); MEAN PLT VOLUME 8.4 fl (7.5-11.1); PLATELET COUNT 390 10^3/uL (134-434); RBC 3.69 M/mm3 (4.00-5.60); RDW 18.9 % (11.9-15.9); WHITE BLOOD COUNT 7.7 K/mm3 (4.0-10.0)
[2023-08-28 13:01] LABS: POTASSIUM 3.6 mmol/L (3.5-5.1)
[2023-08-28 13:08] LABS: ALBUMIN 2.9 g/dl (3.4-5.0); BLOOD UREA NITROGEN 18.9 mg/dL (7-18); CALCIUM 8.6 mg/dL (8.5-10.1); MAGNESIUM 2.3 mg/dL (1.8-2.4)
[2023-08-28 13:10] LABS: PHOSPHOROUS 3.4 mg/dL (2.5-4.9)
[2023-08-28 13:11] LABS: BILIRUBIN,TOTAL 0.2 mg/dL (0.2-1); CREATININE 0.4 mg/dL (0.55-1.3); TOT PROT 7.2 g/dl (6.4-8.2)
[2023-08-28] MEDS ORDERED: ACETAMINOPHEN 1000 MG/100 ML BAG IVPB PRN (17:41)
[2023-08-28] MEDS ORDERED: METOPROLOL TARTRATE 5 MG/5 ML VIAL IVPUSH ONE (18:00)
[2023-08-28] MEDS ORDERED: VANCOMYCIN/WATER FOR INJ (PEG) 1,000 MG/200 ML BAG IVPB ONE (18:15)
[2023-08-28] MEDS: SCOPOLAMINE HYDROBROMIDE 1 PATCH PATCH.TD72 TD SCH (18:27)
[2023-08-28] MEDS: methylPREDNISolone NA SUCC 40 MG/1 ML VIAL IVPUSH SCH (18:28)
[2023-08-28] MEDS: GLYCOPYRROLATE 1 MG TABLET GT SCH (21:53)
[2023-08-28] MEDS: FAMOTIDINE 20 MG/2.5 ML ORAL LIQUID PO SCH (22:40)
[2023-08-29] MEDS: methylPREDNISolone NA SUCC 40 MG/1 ML VIAL IVPUSH SCH ×3 (01:09→17:06)
[2023-08-29] MEDS: clonazePAM 0.5 MG TABLET GT SCH ×3 (05:13→22:00)
[2023-08-29] MEDS: ALBUTEROL SO4 2.5/IPRATROPIUM 0.5 INH SOL 3 ML VIAL.NEB. NEB SCH ×4 (07:52→19:30)
[2023-08-29 07:53] LABS: BASO % 0.3 % (0-2.0); EOS % 0.5 % (0-4.5); HEMATOCRIT 31.4 % (35.4-49); HEMOGLOBIN 10.6 GM/dL (11.7-16.9); LYMPH % 25.1 % (8-40); MCHC 33.7 g/dl (32.0-35.9); MEAN CELL VOLUME 91.9 fl (80-96); MEAN PLT VOLUME 7.9 fl (7.5-11.1); NEUT % 69.1 % (42.8-82.8); PLATELET COUNT 335 10^3/uL (134-434); RBC 3.41 M/mm3 (4.00-5.60); RDW 18.7 % (11.9-15.9)
[2023-08-29 08:03] LABS: POTASSIUM 3.6 mmol/L (3.5-5.1)
[2023-08-29 08:07] LABS: BLOOD UREA NITROGEN 12.7 mg/dL (7-18); CALCIUM 8.3 mg/dL (8.5-10.1); MAGNESIUM 2.1 mg/dL (1.8-2.4)
[2023-08-29 08:08] LABS: ALBUMIN 2.7 g/dl (3.4-5.0)
[2023-08-29 08:10] LABS: CREATININE 0.3 mg/dL (0.55-1.3); PHOSPHOROUS 3.5 mg/dL (2.5-4.9)
[2023-08-29 08:12] LABS: TOT PROT 6.6 g/dl (6.4-8.2)
[2023-08-29 08:34] LABS: BILIRUBIN,TOTAL 0.3 mg/dL (0.2-1)
[2023-08-29] MEDS: ASCORBIC ACID 500 MG/5 ML UNIT DOSE CUP PO SCH (10:29)
[2023-08-29] MEDS: levETIRAcetam 500 MG/5 ML ORAL SOLUTION (UNIT-DOSE CUPS) GT SCH ×2 (10:30→22:01)
[2023-08-29] MEDS: carBAMazepine 100 MG/5 ML UNIT-DOSE CUP GT SCH ×2 (10:31→22:01)
[2023-08-29] MEDS: BUDESONIDE 0.5 MG/2 ML INH SUSP VIAL NEB SCH (10:32)
[2023-08-29] MEDS: CHOLECALCIFEROL (VIT D3) 1,000 UNIT (25 MCG) TABLET GT SCH (10:32)
[2023-08-29] MEDS: METOPROLOL TARTRATE 25 MG TABLET (FP) PO SCH ×2 (10:32→22:02)
[2023-08-29] MEDS: BACLOFEN 10 MG TABLET (FP) GT SCH ×4 (10:32→22:02)
[2023-08-29] MEDS: BACITRACIN ZINC 15 GM TUBE TOPICAL OINTMENT TP SCH ×2 (10:33→22:00)
[2023-08-29] MEDS: POLYETHYLENE GLYCOL (HEALTHYLAX) 3350 17 GM PACKET GT SCH ×2 (10:39→22:02)
[2023-08-29] MEDS: APIXABAN 2.5 MG TABLET GT SCH ×2 (10:40→22:02)
[2023-08-29] MEDS: FLUTICASONE PROP 0.05% 16 GM NASAL SPRAY NS SCH (10:40)
[2023-08-29] MEDS: MULTIVIT-MINERALS ORAL LIQUID PO SCH (12:18)
[2023-08-29] MEDS: SILVER SULFADIAZINE 1% TOP CREAM 50 GM JAR TP SCH (22:00)
[2023-08-29] MEDS: FAMOTIDINE 20 MG/2.5 ML ORAL LIQUID PO SCH (22:01)
[2023-08-29] MEDS: GLYCOPYRROLATE 1 MG TABLET GT SCH (22:01)
[2023-08-30] MEDS: methylPREDNISolone NA SUCC 40 MG/1 ML VIAL IVPUSH SCH ×3 (01:30→22:52)
[2023-08-30] MEDS: clonazePAM 0.5 MG TABLET GT SCH ×3 (05:24→22:51)
[2023-08-30] MEDS: ALBUTEROL SO4 2.5/IPRATROPIUM 0.5 INH SOL 3 ML VIAL.NEB. NEB SCH ×4 (07:42→20:13)
[2023-08-30] MEDS: BUDESONIDE 0.5 MG/2 ML INH SUSP VIAL NEB SCH ×2 (09:00→22:13)
[2023-08-30 09:15] LABS: BASO % 0.1 % (0-2.0); HEMATOCRIT 32.3 % (35.4-49); HEMOGLOBIN 10.7 GM/dL (11.7-16.9); LYMPH % 15.7 % (8-40); MCH 30.1 pg (25.7-33.7); MCHC 33.1 g/dl (32.0-35.9); MEAN CELL VOLUME 90.8 fl (80-96); MEAN PLT VOLUME 7.9 fl (7.5-11.1); MONO % 6.4 % (3.8-10.2); NEUT % 77.8 % (42.8-82.8); PLATELET COUNT 379 10^3/uL (134-434); RBC 3.56 M/mm3 (4.00-5.60); RDW 18.7 % (11.9-15.9); WHITE BLOOD COUNT 6.4 K/mm3 (4.0-10.0)
[2023-08-30 09:57] LABS: POTASSIUM 3.9 mmol/L (3.5-5.1)
[2023-08-30 10:12] LABS: CALCIUM 9.2 mg/dL (8.5-10.1)
[2023-08-30 10:13] LABS: ALBUMIN 2.8 g/dl (3.4-5.0); BLOOD UREA NITROGEN 12.1 mg/dL (7-18)
[2023-08-30 10:16] LABS: CREATININE 0.3 mg/dL (0.55-1.3)
[2023-08-30 10:17] LABS: TOT PROT 6.8 g/dl (6.4-8.2)
[2023-08-30 10:18] LABS: BILIRUBIN,TOTAL 0.2 mg/dL (0.2-1)
[2023-08-30] MEDS: METOPROLOL TARTRATE 25 MG TABLET (FP) PO SCH ×2 (10:22→22:51)
[2023-08-30] MEDS: CHOLECALCIFEROL (VIT D3) 1,000 UNIT (25 MCG) TABLET GT SCH (10:22)
[2023-08-30] MEDS: BACLOFEN 10 MG TABLET (FP) GT SCH ×4 (10:22→22:51)
[2023-08-30] MEDS: APIXABAN 2.5 MG TABLET GT SCH ×2 (10:22→22:51)
[2023-08-30] MEDS: levETIRAcetam 500 MG/5 ML ORAL SOLUTION (UNIT-DOSE CUPS) GT SCH ×2 (10:23→22:51)
[2023-08-30] MEDS: MULTIVIT-MINERALS ORAL LIQUID PO SCH (10:23)
[2023-08-30] MEDS: ASCORBIC ACID 500 MG/5 ML UNIT DOSE CUP PO SCH (10:23)
[2023-08-30] MEDS: BACITRACIN ZINC 15 GM TUBE TOPICAL OINTMENT TP SCH ×2 (10:24→22:52)
[2023-08-30] MEDS: POLYETHYLENE GLYCOL (HEALTHYLAX) 3350 17 GM PACKET GT SCH ×2 (10:25→22:52)
[2023-08-30] MEDS: carBAMazepine 100 MG/5 ML UNIT-DOSE CUP GT SCH ×2 (10:25→22:51)
[2023-08-30] MEDS: FLUTICASONE PROP 0.05% 16 GM NASAL SPRAY NS SCH (10:26)
[2023-08-30] MEDS: SILVER SULFADIAZINE 1% TOP CREAM 50 GM JAR TP SCH (10:26)
[2023-08-30] MEDS: GLYCOPYRROLATE 1 MG TABLET GT SCH (22:51)
[2023-08-30] MEDS: FAMOTIDINE 20 MG/2.5 ML ORAL LIQUID PO SCH (22:52)
[2023-08-31] MEDS: clonazePAM 0.5 MG TABLET GT SCH ×3 (05:59→21:00)
[2023-08-31] MEDS: ALBUTEROL SO4 2.5/IPRATROPIUM 0.5 INH SOL 3 ML VIAL.NEB. NEB SCH ×4 (07:50→20:05)
[2023-08-31 08:53] LABS: BASO % 0.2 % (0-2.0); HEMOGLOBIN 11.6 GM/dL (11.7-16.9); LYMPH % 20.1 % (8-40); MCH 30.3 pg (25.7-33.7); MCHC 33.1 g/dl (32.0-35.9); MEAN CELL VOLUME 91.4 fl (80-96); MONO % 5.5 % (3.8-10.2); NEUT % 74.2 % (42.8-82.8); PLATELET COUNT 400 10^3/uL (134-434); RBC 3.83 M/mm3 (4.00-5.60); WHITE BLOOD COUNT 8.7 K/mm3 (4.0-10.0)
[2023-08-31] MEDS: BUDESONIDE 0.5 MG/2 ML INH SUSP VIAL NEB SCH ×2 (09:30→21:16)
[2023-08-31 09:52] LABS: POTASSIUM 4.3 mmol/L (3.5-5.1)
[2023-08-31 10:07] LABS: ALBUMIN 2.8 g/dl (3.4-5.0); CALCIUM 8.6 mg/dL (8.5-10.1); MAGNESIUM 2.1 mg/dL (1.8-2.4)
[2023-08-31 10:09] LABS: CREATININE 0.4 mg/dL (0.55-1.3); PHOSPHOROUS 2.9 mg/dL (2.5-4.9)
[2023-08-31 10:10] LABS: BILIRUBIN,TOTAL 0.2 mg/dL (0.2-1)
[2023-08-31 10:11] LABS: TOT PROT 6.9 g/dl (6.4-8.2)
[2023-08-31] MEDS: BACLOFEN 10 MG TABLET (FP) GT SCH ×4 (11:17→21:01)
[2023-08-31] MEDS: CHOLECALCIFEROL (VIT D3) 1,000 UNIT (25 MCG) TABLET GT SCH (11:18)
[2023-08-31] MEDS: APIXABAN 2.5 MG TABLET GT SCH ×2 (11:18→21:01)
[2023-08-31] MEDS: METOPROLOL TARTRATE 25 MG TABLET (FP) PO SCH ×2 (11:18→21:01)
[2023-08-31] MEDS: MULTIVIT-MINERALS ORAL LIQUID PO SCH (11:19)
[2023-08-31] MEDS: methylPREDNISolone NA SUCC 40 MG/1 ML VIAL IVPUSH SCH ×2 (11:19→21:00)
[2023-08-31] MEDS: carBAMazepine 100 MG/5 ML UNIT-DOSE CUP GT SCH ×2 (11:20→21:39)
[2023-08-31] MEDS: ASCORBIC ACID 500 MG/5 ML UNIT DOSE CUP PO SCH (11:21)
[2023-08-31] MEDS: levETIRAcetam 500 MG/5 ML ORAL SOLUTION (UNIT-DOSE CUPS) GT SCH ×2 (11:21→21:00)
[2023-08-31] MEDS: POLYETHYLENE GLYCOL (HEALTHYLAX) 3350 17 GM PACKET GT SCH ×2 (11:24→21:02)
[2023-08-31] MEDS: FLUTICASONE PROP 0.05% 16 GM NASAL SPRAY NS SCH (11:42)
[2023-08-31] MEDS: SILVER SULFADIAZINE 1% TOP CREAM 50 GM JAR TP SCH (11:42)
[2023-08-31] MEDS: BACITRACIN ZINC 15 GM TUBE TOPICAL OINTMENT TP SCH ×2 (11:43→21:39)
[2023-08-31] MEDS: SCOPOLAMINE HYDROBROMIDE 1 PATCH PATCH.TD72 TD SCH (17:59)
[2023-08-31] MEDS: FAMOTIDINE 20 MG/2.5 ML ORAL LIQUID PO SCH (21:01)
[2023-08-31] MEDS: GLYCOPYRROLATE 1 MG TABLET GT SCH (21:02)
[2023-09-01] MEDS: clonazePAM 0.5 MG TABLET GT SCH ×3 (05:39→21:10)
[2023-09-01] MEDS ORDERED: SODIUM CHLORIDE 500 ML IV STA (07:45)
[2023-09-01] MEDS: ALBUTEROL SO4 2.5/IPRATROPIUM 0.5 INH SOL 3 ML VIAL.NEB. NEB SCH ×2 (07:55→11:50)
[2023-09-01 08:38] LABS: BASO % 0.4 % (0-2.0); EOS % 0.1 % (0-4.5); HEMATOCRIT 34.1 % (35.4-49); HEMOGLOBIN 11.2 GM/dL (11.7-16.9); LYMPH % 26.2 % (8-40); MCHC 32.8 g/dl (32.0-35.9); MEAN CELL VOLUME 91.5 fl (80-96); MEAN PLT VOLUME 8.6 fl (7.5-11.1); MONO % 8.3 % (3.8-10.2); PLATELET COUNT 408 10^3/uL (134-434); RBC 3.72 M/mm3 (4.00-5.60); RDW 18.7 % (11.9-15.9); WHITE BLOOD COUNT 10.1 K/mm3 (4.0-10.0)
[2023-09-01 08:40] LABS: POTASSIUM 4.2 mmol/L (3.5-5.1)
[2023-09-01 08:44] LABS: ALBUMIN 2.9 g/dl (3.4-5.0); CALCIUM 9.2 mg/dL (8.5-10.1)
[2023-09-01 08:45] LABS: BLOOD UREA NITROGEN 8.7 mg/dL (7-18)
[2023-09-01 08:48] LABS: CREATININE 0.4 mg/dL (0.55-1.3)
[2023-09-01 08:50] LABS: BILIRUBIN,TOTAL 0.1 mg/dL (0.2-1)
[2023-09-01] MEDS: BUDESONIDE 0.5 MG/2 ML INH SUSP VIAL NEB SCH ×2 (09:09→21:11)
[2023-09-01] MEDS: CHOLECALCIFEROL (VIT D3) 1,000 UNIT (25 MCG) TABLET GT SCH (12:00)
[2023-09-01] MEDS: BACLOFEN 10 MG TABLET (FP) GT SCH ×4 (12:01→21:10)
[2023-09-01] MEDS: levETIRAcetam 500 MG/5 ML ORAL SOLUTION (UNIT-DOSE CUPS) GT SCH ×2 (12:01→21:10)
[2023-09-01] MEDS: APIXABAN 2.5 MG TABLET GT SCH ×2 (12:01→21:10)
[2023-09-01] MEDS: ASCORBIC ACID 500 MG/5 ML UNIT DOSE CUP PO SCH (12:01)
[2023-09-01] MEDS: methylPREDNISolone NA SUCC 40 MG/1 ML VIAL IVPUSH SCH ×2 (12:02→21:10)
[2023-09-01] MEDS: MULTIVIT-MINERALS ORAL LIQUID PO SCH (12:02)
[2023-09-01] MEDS: BACITRACIN ZINC 15 GM TUBE TOPICAL OINTMENT TP SCH ×2 (12:05→21:12)
[2023-09-01] MEDS: SILVER SULFADIAZINE 1% TOP CREAM 50 GM JAR TP SCH (12:24)
[2023-09-01] MEDS: METOPROLOL TARTRATE 25 MG TABLET (FP) PO SCH ×2 (12:24→21:10)
[2023-09-01] MEDS: POLYETHYLENE GLYCOL (HEALTHYLAX) 3350 17 GM PACKET GT SCH ×2 (12:24→21:10)
[2023-09-01] MEDS: FLUTICASONE PROP 0.05% 16 GM NASAL SPRAY NS SCH (12:25)
[2023-09-01] MEDS: carBAMazepine 100 MG/5 ML UNIT-DOSE CUP GT SCH ×2 (14:34→21:11)
[2023-09-01] MEDS: FAMOTIDINE 20 MG/2.5 ML ORAL LIQUID PO SCH (21:11)
[2023-09-01] MEDS: GLYCOPYRROLATE 1 MG TABLET GT SCH (21:12)
[2023-09-02] MEDS: clonazePAM 0.5 MG TABLET GT SCH ×3 (05:25→23:17)
[2023-09-02 08:30] LABS: BASO % 0.1 % (0-2.0); HEMATOCRIT 35.2 % (35.4-49); HEMOGLOBIN 11.5 GM/dL (11.7-16.9); MCH 30.1 pg (25.7-33.7); MCHC 32.8 g/dl (32.0-35.9); MEAN CELL VOLUME 91.7 fl (80-96); MEAN PLT VOLUME 7.7 fl (7.5-11.1); MONO % 8.2 % (3.8-10.2); NEUT % 77.7 % (42.8-82.8); PLATELET COUNT 432 10^3/uL (134-434); RBC 3.83 M/mm3 (4.00-5.60); RDW 18.8 % (11.9-15.9); WHITE BLOOD COUNT 12.4 K/mm3 (4.0-10.0)
[2023-09-02 08:32] LABS: POTASSIUM 3.9 mmol/L (3.5-5.1)
[2023-09-02 08:39] LABS: BLOOD UREA NITROGEN 9.2 mg/dL (7-18)
[2023-09-02 08:40] LABS: ALBUMIN 2.8 g/dl (3.4-5.0); CREATININE 0.3 mg/dL (0.55-1.3)
[2023-09-02 08:41] LABS: BILIRUBIN,TOTAL 0.2 mg/dL (0.2-1); CALCIUM 8.4 mg/dL (8.5-10.1); TOT PROT 7.3 g/dl (6.4-8.2)
[2023-09-02] MEDS: BUDESONIDE 0.5 MG/2 ML INH SUSP VIAL NEB SCH ×2 (10:00→21:23)
[2023-09-02] MEDS: levETIRAcetam 500 MG/5 ML ORAL SOLUTION (UNIT-DOSE CUPS) GT SCH ×2 (11:14→23:18)
[2023-09-02] MEDS: ASCORBIC ACID 500 MG/5 ML UNIT DOSE CUP PO SCH (11:14)
[2023-09-02] MEDS: APIXABAN 2.5 MG TABLET GT SCH ×2 (11:15→23:16)
[2023-09-02] MEDS: BACLOFEN 10 MG TABLET (FP) GT SCH ×4 (11:15→23:16)
[2023-09-02] MEDS: methylPREDNISolone NA SUCC 40 MG/1 ML VIAL IVPUSH SCH ×2 (11:15→23:14)
[2023-09-02] MEDS: CHOLECALCIFEROL (VIT D3) 1,000 UNIT (25 MCG) TABLET GT SCH (11:15)
[2023-09-02] MEDS: BACITRACIN ZINC 15 GM TUBE TOPICAL OINTMENT TP SCH ×2 (11:16→23:53)
[2023-09-02] MEDS: carBAMazepine 100 MG/5 ML UNIT-DOSE CUP GT SCH (11:16)
[2023-09-02] MEDS: METOPROLOL TARTRATE 25 MG TABLET (FP) PO SCH ×2 (11:16→23:14)
[2023-09-02] MEDS: MULTIVIT-MINERALS ORAL LIQUID PO SCH (11:16)
[2023-09-02] MEDS: FLUTICASONE PROP 0.05% 16 GM NASAL SPRAY NS SCH (11:17)
[2023-09-02] MEDS: SILVER SULFADIAZINE 1% TOP CREAM 50 GM JAR TP SCH (11:17)
[2023-09-02] MEDS: POLYETHYLENE GLYCOL (HEALTHYLAX) 3350 17 GM PACKET GT SCH ×2 (11:17→23:14)
[2023-09-02] MEDS: FAMOTIDINE 20 MG/2.5 ML ORAL LIQUID PO SCH (23:14)
[2023-09-02] MEDS: GLYCOPYRROLATE 1 MG TABLET GT SCH (23:52)
[2023-09-03] MEDS: carBAMazepine 100 MG/5 ML UNIT-DOSE CUP GT SCH ×3 (00:26→23:34)
[2023-09-03] MEDS: clonazePAM 0.5 MG TABLET GT SCH ×3 (06:58→22:33)
[2023-09-03 08:18] LABS: BASO % 0.1 % (0-2.0); HEMATOCRIT 34.5 % (35.4-49); HEMOGLOBIN 11.3 GM/dL (11.7-16.9); LYMPH % 12.8 % (8-40); MCH 29.8 pg (25.7-33.7); MCHC 32.8 g/dl (32.0-35.9); MEAN CELL VOLUME 90.8 fl (80-96); MEAN PLT VOLUME 7.4 fl (7.5-11.1); MONO % 6.6 % (3.8-10.2); NEUT % 80.5 % (42.8-82.8); PLATELET COUNT 426 10^3/uL (134-434); RDW 18.9 % (11.9-15.9); WHITE BLOOD COUNT 12.2 K/mm3 (4.0-10.0)
[2023-09-03 08:30] LABS: POTASSIUM 4.3 mmol/L (3.5-5.1)
[2023-09-03 08:32] LABS: ALBUMIN 2.8 g/dl (3.4-5.0); BLOOD UREA NITROGEN 12.1 mg/dL (7-18)
[2023-09-03 08:35] LABS: CREATININE 0.3 mg/dL (0.55-1.3)
[2023-09-03 08:37] LABS: BILIRUBIN,TOTAL 0.2 mg/dL (0.2-1); TOT PROT 6.7 g/dl (6.4-8.2)
[2023-09-03] MEDS: BUDESONIDE 0.5 MG/2 ML INH SUSP VIAL NEB SCH ×2 (09:40→21:01)
[2023-09-03] MEDS: ASCORBIC ACID 500 MG/5 ML UNIT DOSE CUP PO SCH (11:10)
[2023-09-03] MEDS: levETIRAcetam 500 MG/5 ML ORAL SOLUTION (UNIT-DOSE CUPS) GT SCH ×2 (11:15→22:33)
[2023-09-03] MEDS: CHOLECALCIFEROL (VIT D3) 1,000 UNIT (25 MCG) TABLET GT SCH (11:15)
[2023-09-03] MEDS: BACLOFEN 10 MG TABLET (FP) GT SCH ×4 (11:20→22:33)
[2023-09-03] MEDS: SILVER SULFADIAZINE 1% TOP CREAM 50 GM JAR TP SCH (11:39)
[2023-09-03] MEDS: METOPROLOL TARTRATE 25 MG TABLET (FP) PO SCH ×2 (11:39→22:33)
[2023-09-03] MEDS: methylPREDNISolone NA SUCC 40 MG/1 ML VIAL IVPUSH SCH ×2 (11:39→22:36)
[2023-09-03] MEDS: FLUTICASONE PROP 0.05% 16 GM NASAL SPRAY NS SCH (11:40)
[2023-09-03] MEDS: APIXABAN 2.5 MG TABLET GT SCH ×2 (11:40→22:32)
[2023-09-03] MEDS: POLYETHYLENE GLYCOL (HEALTHYLAX) 3350 17 GM PACKET GT SCH ×2 (11:40→22:33)
[2023-09-03] MEDS: MULTIVIT-MINERALS ORAL LIQUID PO SCH (11:41)
[2023-09-03] MEDS: BACITRACIN ZINC 15 GM TUBE TOPICAL OINTMENT TP SCH ×2 (11:42→22:31)
[2023-09-03] MEDS: SCOPOLAMINE HYDROBROMIDE 1 PATCH PATCH.TD72 TD SCH (18:20)
[2023-09-03] MEDS: GLYCOPYRROLATE 1 MG TABLET GT SCH (22:34)
[2023-09-03] MEDS: FAMOTIDINE 20 MG/2.5 ML ORAL LIQUID PO SCH (23:34)
[2023-09-04] MEDS: clonazePAM 0.5 MG TABLET GT SCH ×3 (05:08→22:43)
[2023-09-04 08:46] LABS: BASO % 0.1 % (0-2.0); HEMATOCRIT 35.5 % (35.4-49); HEMOGLOBIN 11.7 GM/dL (11.7-16.9); LYMPH % 15.2 % (8-40); MCHC 32.9 g/dl (32.0-35.9); MEAN PLT VOLUME 7.7 fl (7.5-11.1); MONO % 8.1 % (3.8-10.2); NEUT % 76.6 % (42.8-82.8); PLATELET COUNT 406 10^3/uL (134-434); RDW 18.8 % (11.9-15.9); WHITE BLOOD COUNT 11.8 K/mm3 (4.0-10.0)
[2023-09-04] MEDS: BUDESONIDE 0.5 MG/2 ML INH SUSP VIAL NEB SCH ×2 (09:05→21:31)
[2023-09-04] MEDS: BACLOFEN 10 MG TABLET (FP) GT SCH ×4 (09:26→22:42)
[2023-09-04] MEDS: POLYETHYLENE GLYCOL (HEALTHYLAX) 3350 17 GM PACKET GT SCH ×2 (09:26→22:44)
[2023-09-04] MEDS: levETIRAcetam 500 MG/5 ML ORAL SOLUTION (UNIT-DOSE CUPS) GT SCH ×2 (09:26→22:42)
[2023-09-04] MEDS: SILVER SULFADIAZINE 1% TOP CREAM 50 GM JAR TP SCH (09:27)
[2023-09-04] MEDS: CHOLECALCIFEROL (VIT D3) 1,000 UNIT (25 MCG) TABLET GT SCH (09:27)
[2023-09-04] MEDS: APIXABAN 2.5 MG TABLET GT SCH ×2 (09:27→22:42)
[2023-09-04] MEDS: METOPROLOL TARTRATE 25 MG TABLET (FP) PO SCH ×2 (09:27→22:43)
[2023-09-04] MEDS: ASCORBIC ACID 500 MG/5 ML UNIT DOSE CUP PO SCH (09:27)
[2023-09-04 09:28] LABS: POTASSIUM 4.1 mmol/L (3.5-5.1)
[2023-09-04] MEDS: BACITRACIN ZINC 15 GM TUBE TOPICAL OINTMENT TP SCH ×2 (09:28→22:42)
[2023-09-04] MEDS: FLUTICASONE PROP 0.05% 16 GM NASAL SPRAY NS SCH (09:28)
[2023-09-04] MEDS: carBAMazepine 100 MG/5 ML UNIT-DOSE CUP GT SCH ×2 (09:28→22:45)
[2023-09-04 09:32] LABS: CALCIUM 8.5 mg/dL (8.5-10.1)
[2023-09-04] MEDS: methylPREDNISolone NA SUCC 40 MG/1 ML VIAL IVPUSH SCH (09:32)
[2023-09-04 09:33] LABS: ALBUMIN 2.8 g/dl (3.4-5.0); BLOOD UREA NITROGEN 11.5 mg/dL (7-18)
[2023-09-04 09:36] LABS: CREATININE 0.4 mg/dL (0.55-1.3)
[2023-09-04 09:38] LABS: BILIRUBIN,TOTAL 0.2 mg/dL (0.2-1); TOT PROT 6.7 g/dl (6.4-8.2)
[2023-09-04] MEDS: MULTIVIT-MINERALS ORAL LIQUID PO SCH ×2 (12:03→12:15)
[2023-09-04] MEDS ORDERED: ACETAMINOPHEN 1000 MG/100 ML BAG IVPB ONE (19:58)
[2023-09-04] MEDS: FAMOTIDINE 20 MG/2.5 ML ORAL LIQUID PO SCH (22:44)
[2023-09-04] MEDS: GLYCOPYRROLATE 1 MG TABLET GT SCH (22:45)
[2023-09-05] MEDS: clonazePAM 0.5 MG TABLET GT SCH ×2 (06:45→13:59)
[2023-09-05 08:23] LABS: BASO % 0.4 % (0-2.0); EOS % 0.2 % (0-4.5); HEMATOCRIT 37.8 % (35.4-49); HEMOGLOBIN 12.3 GM/dL (11.7-16.9); LYMPH % 23.7 % (8-40); MCH 29.8 pg (25.7-33.7); MCHC 32.6 g/dl (32.0-35.9); MEAN CELL VOLUME 91.6 fl (80-96); MEAN PLT VOLUME 7.8 fl (7.5-11.1); MONO % 7.9 % (3.8-10.2); NEUT % 67.8 % (42.8-82.8); PLATELET COUNT 356 10^3/uL (134-434); RBC 4.13 M/mm3 (4.00-5.60); RDW 18.5 % (11.9-15.9); WHITE BLOOD COUNT 11.2 K/mm3 (4.0-10.0)
[2023-09-05] MEDS: BUDESONIDE 0.5 MG/2 ML INH SUSP VIAL NEB SCH ×2 (08:27→20:00)
[2023-09-05 08:40] LABS: POTASSIUM 4.4 mmol/L (3.5-5.1)
[2023-09-05 08:44] LABS: BLOOD UREA NITROGEN 15.1 mg/dL (7-18); CALCIUM 8.4 mg/dL (8.5-10.1)
[2023-09-05 08:48] LABS: CREATININE 0.3 mg/dL (0.55-1.3)
[2023-09-05] MEDS: levETIRAcetam 500 MG/5 ML ORAL SOLUTION (UNIT-DOSE CUPS) GT SCH ×2 (11:41→21:16)
[2023-09-05] MEDS: CHOLECALCIFEROL (VIT D3) 1,000 UNIT (25 MCG) TABLET GT SCH (11:42)
[2023-09-05] MEDS: METOPROLOL TARTRATE 25 MG TABLET (FP) PO SCH ×2 (11:42→21:17)
[2023-09-05] MEDS: methylPREDNISolone NA SUCC 40 MG/1 ML VIAL IVPUSH SCH (11:42)
[2023-09-05] MEDS: BACLOFEN 10 MG TABLET (FP) GT SCH ×4 (11:43→21:18)
[2023-09-05] MEDS: ASCORBIC ACID 500 MG/5 ML UNIT DOSE CUP PO SCH (11:43)
[2023-09-05] MEDS: FLUTICASONE PROP 0.05% 16 GM NASAL SPRAY NS SCH (11:44)
[2023-09-05] MEDS: SILVER SULFADIAZINE 1% TOP CREAM 50 GM JAR TP SCH (11:44)
[2023-09-05] MEDS: MULTIVIT-MINERALS ORAL LIQUID PO SCH (11:45)
[2023-09-05] MEDS: POLYETHYLENE GLYCOL (HEALTHYLAX) 3350 17 GM PACKET GT SCH ×2 (11:45→21:18)
[2023-09-05] MEDS: APIXABAN 2.5 MG TABLET GT SCH ×2 (11:45→21:17)
[2023-09-05] MEDS: BACITRACIN ZINC 15 GM TUBE TOPICAL OINTMENT TP SCH ×2 (11:46→21:18)
[2023-09-05] MEDS: carBAMazepine 100 MG/5 ML UNIT-DOSE CUP GT SCH ×2 (11:47→21:19)
[2023-09-05] MEDS ORDERED: BUDESONIDE 0.5 MG/2 ML INH SUSP VIAL NEB SCH (20:00)
[2023-09-05] MEDS: GLYCOPYRROLATE 1 MG TABLET GT SCH (21:19)
[2023-09-05] MEDS: FAMOTIDINE 20 MG/2.5 ML ORAL LIQUID PO SCH (21:19)
[2023-09-06 06:36] VITALS: RESP 20
[2023-09-06] MEDS: BUDESONIDE 0.5 MG/2 ML INH SUSP VIAL NEB SCH (07:20)
[2023-09-06] MEDS: levETIRAcetam 500 MG/5 ML ORAL SOLUTION (UNIT-DOSE CUPS) GT SCH (09:01)
[2023-09-06] MEDS: METOPROLOL TARTRATE 25 MG TABLET (FP) PO SCH (09:02)
[2023-09-06] MEDS: CHOLECALCIFEROL (VIT D3) 1,000 UNIT (25 MCG) TABLET GT SCH (09:02)
[2023-09-06] MEDS: POLYETHYLENE GLYCOL (HEALTHYLAX) 3350 17 GM PACKET GT SCH (09:02)
[2023-09-06] MEDS: methylPREDNISolone NA SUCC 40 MG/1 ML VIAL IVPUSH SCH (09:02)
[2023-09-06] MEDS: carBAMazepine 100 MG/5 ML UNIT-DOSE CUP GT SCH (09:02)
[2023-09-06] MEDS: APIXABAN 2.5 MG TABLET GT SCH (09:02)
[2023-09-06] MEDS: MULTIVIT-MINERALS ORAL LIQUID PO SCH (09:02)
[2023-09-06] MEDS: BACLOFEN 10 MG TABLET (FP) GT SCH (09:03)
[2023-09-06] MEDS: SILVER SULFADIAZINE 1% TOP CREAM 50 GM JAR TP SCH (09:03)
[2023-09-06] MEDS: ASCORBIC ACID 500 MG/5 ML UNIT DOSE CUP PO SCH (09:03)
[2023-09-06] MEDS: FLUTICASONE PROP 0.05% 16 GM NASAL SPRAY NS SCH (09:03)
[2023-09-06] MEDS: BACITRACIN ZINC 15 GM TUBE TOPICAL OINTMENT TP SCH (09:03)
[2023-09-06 10:15] VITALS: BP 113/69; PULSE 109; TEMP 98
== END 2023-09-06 10:49 | DRG 137 ==
LOC: JER 13:05 → JERBED 15:36 → J4S 08-12 12:04
PROVIDERS: ADMIT Internal Medicine; ATTEND Internal Medicine
DX: J69.0 Pneumonitis due to inhalation of food and vomit (principal); J96.01 Acute respiratory failure with hypoxia; R53.2 Functional quadriplegia; G80.0 Spastic quadriplegic cerebral palsy; Q02 Microcephaly; G40.909 Epilepsy, unspecified, not intractable, without status epilepticus; G80.9 Cerebral palsy, unspecified; K59.00 Constipation, unspecified; A41.89 Other specified sepsis; H47.619 Cortical blindness, unspecified side of brain; Q67.5 Congenital deformity of spine; J98.01 Acute bronchospasm; D61.818 Other pancytopenia; E87.1 Hypo-osmolality and hyponatremia; E86.0 Dehydration; E87.0 Hyperosmolality and hypernatremia; E87.6 Hypokalemia
CPT/HCPCS: 0241U-QW; 36415; 71045-TC-FY; 71250-TC; 80048; 80053; 80076; 81003; 82803; 83605; 83735; 83880; 84100; 85025; 85027; 87040; 87070; 87081; 87086; 87186; 87205; 87635; 87899; 93005; 93010; 93306-TC; 94640; 94761; 99291; J0475

== ENCOUNTER 2023-09-12 22:02 | Emergency (ER) | payer OTHER ==
[2023-09-12 22:26] VITALS: BMI 21.1
[2023-09-12] MEDS ORDERED: LACTATED RINGERS SOLUTION 1000 ML INFUS.BAG IV ONE (22:59)
[2023-09-13] MEDS ORDERED: DEXAMETHASONE SOD PHOSPHATE 10 MG/1 ML VIAL IM ONE (00:12)
[2023-09-13] MEDS ORDERED: DEXAMETHASONE SOD PHOSPHATE 10 MG/1 ML VIAL ONE (01:37)
[2023-09-13] MEDS ORDERED: ACETAMINOPHEN 1000 MG/100 ML BAG IVPB ONE (02:26)
[2023-09-13] MEDS ORDERED: ACETAMINOPHEN INJECTION 100 ML IVPB ONE (02:28)
[2023-09-13 02:43] LABS: HEMATOCRIT 33.1 % (35.4-49); HEMOGLOBIN 11.1 GM/dL (11.7-16.9); MCH 30.9 pg (25.7-33.7); MCHC 33.6 g/dl (32.0-35.9); MEAN CELL VOLUME 91.7 fl (80-96); MEAN PLT VOLUME 7.7 fl (7.5-11.1); PLATELET COUNT 205 10^3/uL (134-434); RBC 3.61 M/mm3 (4.00-5.60); RDW 18.8 % (11.9-15.9); WHITE BLOOD COUNT 6.6 K/mm3 (4.0-10.0)
[2023-09-13 02:58] LABS: POTASSIUM 4.4 mmol/L (3.5-5.1)
[2023-09-13 03:01] LABS: ALBUMIN 2.7 g/dl (3.4-5.0); BLOOD UREA NITROGEN 7.9 mg/dL (7-18); CALCIUM 8.2 mg/dL (8.5-10.1)
[2023-09-13 03:04] LABS: CREATININE 0.2 mg/dL (0.55-1.3)
[2023-09-13 03:06] LABS: BILIRUBIN,TOTAL 0.2 mg/dL (0.2-1); TOT PROT 6.2 g/dl (6.4-8.2)
[2023-09-13] MEDS ORDERED: PIPERACILLIN/TAZOB 4.5 GM 4.5 GM/100 ML BAG IVPB ONE (03:29)
[2023-09-13] MEDS ORDERED: VANCOMYCIN 1,000 MG in DEXTROSE 5%-WATER - 250 ML IVPB ONE (03:30)
[2023-09-13] MEDS ORDERED: PIPERACILLIN/TAZOB 4.5 GM 4.5 GM in DEXTROSE 5%-WATER 100 ML IVPB ONE ×2 (04:00→05:30)
[2023-09-13] MEDS ORDERED: VANCOMYCIN 1 GRAM (PRE-DOCKED) 1,000 MG/250 ML BAG IVPB ONE (04:04)
[2023-09-13 06:20] VITALS: RESP 20
[2023-09-13 09:37] VITALS: BP 107/69; PULSE 82; TEMP 98.5
== END 2023-09-13 09:37 | disposition home or self-care (01) ==
LOC: JER 22:02
PROC: 3E03329 Introduction of Other Anti-infective into Peripheral Vein, Percutaneous Approach (ICD-10-PCS; principal; 2023-09-13)
PROC: 3E03329 Introduction of Other Anti-infective into Peripheral Vein, Percutaneous Approach (ICD-10-PCS; 2023-09-13)
PROC: 3E033NZ Introduction of Analgesics, Hypnotics, Sedatives into Peripheral Vein, Percutaneous Approach (ICD-10-PCS; 2023-09-13)
PROC: 3E033GC Introduction of Other Therapeutic Substance into Peripheral Vein, Percutaneous Approach (ICD-10-PCS; 2023-09-13)
DX: U07.1 COVID-19 (principal); A41.9 Sepsis, unspecified organism; R09.02 Hypoxemia; R50.9 Fever, unspecified; R00.0 Tachycardia, unspecified
CPT/HCPCS: 0241U-QW; 36415; 71045-TC-FY; 80053; 82550; 83605; 84484; 85025; 86850; 86900; 86901; 87040; 87086; 93005; 93010; 99285-25; J0131; J1100

== ENCOUNTER 2023-10-12 15:46 | Inpatient (IN) | payer OTHER ==
[2023-10-12 16:54] VITALS: BMI 27.5
[2023-10-12] MEDS ORDERED: methylPREDNISolone NA SUCC 125 MG/2 ML VIAL ONE (16:59)
[2023-10-12 17:00] LABS: BASO % 0.4 % (0-2.0); EOS % 0.6 % (0-4.5); HEMATOCRIT 33.6 % (35.4-49); HEMOGLOBIN 11.3 GM/dL (11.7-16.9); LYMPH % 31.8 % (8-40); MCH 30.5 pg (25.7-33.7); MCHC 33.6 g/dl (32.0-35.9); MEAN CELL VOLUME 90.6 fl (80-96); MEAN PLT VOLUME 8.7 fl (7.5-11.1); MONO % 10.1 % (3.8-10.2); NEUT % 57.1 % (42.8-82.8); PLATELET COUNT 205 10^3/uL (134-434); RBC 3.71 M/mm3 (4.00-5.60); RDW 16.9 % (11.9-15.9); WHITE BLOOD COUNT 5.1 K/mm3 (4.0-10.0)
[2023-10-12] MEDS: methylPREDNISolone NA SUCC 125 MG/2 ML VIAL IVPUSH ONE (17:00)
[2023-10-12 17:05] LABS: VENOUS BASE EXCESS -0.1 mmol/L (-2-2); VENOUS PCO2 48.4 mmHg (38-52); VENOUS PH 7.352 (7.310-7.410)
[2023-10-12 17:07] LABS: INR 1.17 (0.83-1.09); PROTHROMBIN TIME (PATIENT) 13.5 SEC (9.7-13.0)
[2023-10-12 17:09] LABS: ACTIVATED PTT 45.7 SECONDS (25.2-36.5)
[2023-10-12] MEDS: PIPERACILLIN/TAZOB 4.5 GM 4.5 GM in DEXTROSE 5%-WATER 100 ML IVPB ONE (17:23)
[2023-10-12] MEDS ORDERED: PIPERACILLIN/TAZOB 4.5 GM 4.5 GM/100 ML BAG IVPB ONE (17:23)
[2023-10-12 17:27] LABS: URINE APPEARANCE CLOUDY; URINE BILIRUBIN NEGATIVE (NEGATIVE); URINE COLOR YELLOW; URINE GLUCOSE (UA) NEGATIVE (NEGATIVE); URINE KETONE NEGATIVE (NEGATIVE); URINE LEUK ESTERASE NEGATIVE (NEGATIVE); URINE NITRITE NEGATIVE (NEGATIVE); URINE PROTEIN NEGATIVE (NEGATIVE); URINE UROBILINOGEN 0.2 mg/dL (0.2-1.0)
[2023-10-12] MEDS ORDERED: VANCOMYCIN 1 GRAM (PRE-DOCKED) 1,000 MG/250 ML BAG IVPB ONE (17:49)
[2023-10-12] MEDS: VANCOMYCIN 1,000 MG in DEXTROSE 5%-WATER - 250 ML IVPB ONE (17:50)
[2023-10-12] MEDS: ALBUTEROL SO4 2.5/IPRATROPIUM 0.5 INH SOL 3 ML VIAL.NEB. NEB SCH (17:51)
[2023-10-12 18:00] LABS: POTASSIUM 4.4 mmol/L (3.5-5.1)
[2023-10-12 18:03] LABS: ALBUMIN 3.2 g/dl (3.4-5.0); BLOOD UREA NITROGEN 12.4 mg/dL (7-18); CALCIUM 8.2 mg/dL (8.5-10.1)
[2023-10-12 18:06] LABS: CREATININE 0.3 mg/dL (0.55-1.3)
[2023-10-12 18:08] LABS: BILIRUBIN,TOTAL 0.2 mg/dL (0.2-1)
[2023-10-12] MEDS: REMDESIVIR 200 MG in SODIUM CHLORIDE 250 ML IVPB ONE (20:56)
[2023-10-12] MEDS ORDERED: VITAMINS A AND D TOPICAL OINTMENT 60 GM TUBE TP PRN (21:50)
[2023-10-12] MEDS ORDERED: MAG HYDROX/AL HYDROX/SIMETH 30 ML UNIT-DOSE CUP GT PRN (21:50)
[2023-10-12] MEDS ORDERED: BACITRACIN ZINC 15 GM TUBE TOPICAL OINTMENT TP PRN (21:50)
[2023-10-12] MEDS ORDERED: BISACODYL 10 MG SUPP.RECT RC PRN (21:50)
[2023-10-12] MEDS ORDERED: [UNRECOGNIZED DRUG - OTHER] TP SCH (22:00)
[2023-10-12] MEDS: clonazePAM 0.5 MG TABLET GT SCH (23:07)
[2023-10-12] MEDS: AMINO ACIDS/PROTEIN HYDROLYS 30 ML LIQUID.PKT GT SCH (23:07)
[2023-10-12] MEDS: BACLOFEN 10 MG TABLET (FP) GT SCH (23:07)
[2023-10-12] MEDS: FAMOTIDINE 20 MG/2.5 ML ORAL LIQUID GT SCH (23:53)
[2023-10-12] MEDS: GLYCOPYRROLATE 1 MG TABLET GT SCH (23:53)
[2023-10-12] MEDS: POLYETHYLENE GLYCOL (HEALTHYLAX) 3350 17 GM PACKET GT SCH (23:55)
[2023-10-13] MEDS: carBAMazepine 200 MG/10 ML UNIT-DOSE CUP GT SCH (05:01)
[2023-10-13] MEDS ORDERED: carBAMazepine 200 MG/10 ML UNIT-DOSE CUP GT SCH (06:00)
[2023-10-13] MEDS ORDERED: ALBUTEROL SO4 2.5/IPRATROPIUM 0.5 INH SOL 3 ML VIAL.NEB. NEB PRN ×2 (06:45→07:24)
[2023-10-13] MEDS: GLYCOPYRROLATE 2 MG TABLET GT SCH (07:06)
[2023-10-13] MEDS ORDERED: APIXABAN 2.5 MG TABLET GT SCH (08:00)
[2023-10-13] MEDS ORDERED: levETIRAcetam 500 MG/5 ML ORAL SOLUTION (UNIT-DOSE CUPS) GT SCH (08:00)
[2023-10-13] MEDS ORDERED: TAMSULOSIN HCL 0.4 MG CAP PO SCH (08:30)
[2023-10-13] MEDS: levETIRAcetam 500 MG/5 ML ORAL SOLUTION (UNIT-DOSE CUPS) GT SCH (09:08)
[2023-10-13] MEDS: APIXABAN 2.5 MG TABLET GT SCH (09:09)
[2023-10-13 09:10] LABS: HEMATOCRIT 32.1 % (35.4-49); HEMOGLOBIN 10.7 GM/dL (11.7-16.9); LYMPH % 10.8 % (8-40); MCH 30.6 pg (25.7-33.7); MCHC 33.4 g/dl (32.0-35.9); MEAN CELL VOLUME 91.8 fl (80-96); MEAN PLT VOLUME 9.3 fl (7.5-11.1); MONO % 5.6 % (3.8-10.2); NEUT % 83.6 % (42.8-82.8); PLATELET COUNT 202 10^3/uL (134-434); RDW 16.9 % (11.9-15.9); WHITE BLOOD COUNT 10.9 K/mm3 (4.0-10.0)
[2023-10-13] MEDS: VANCOMYCIN/WATER FOR INJ (PEG) 1,000 MG/200 ML BAG IVPB SCH (09:11)
[2023-10-13] MEDS: SCOPOLAMINE HYDROBROMIDE 1 PATCH PATCH.TD72 TD SCH (09:13)
[2023-10-13] MEDS: SODIUM CHLORIDE NASAL SPRAY 44 ML BOTTLE NS PRN (09:14)
[2023-10-13] MEDS: DOXAZOSIN MESYLATE 1 MG TABLET GT SCH (09:15)
[2023-10-13] MEDS: SODIUM CHLORIDE 1 GM TABLET PEG SCH (09:15)
[2023-10-13] MEDS: DOXYCYCLINE MONOHYDRATE 25 MG/5 ML SUSPENSION GT SCH (09:16)
[2023-10-13 09:29] LABS: ALBUMIN 2.8 g/dl (3.4-5.0); BLOOD UREA NITROGEN 12.5 mg/dL (7-18)
[2023-10-13 09:32] LABS: CREATININE 0.3 mg/dL (0.55-1.3); PHOSPHOROUS 3.8 mg/dL (2.5-4.9)
[2023-10-13 09:34] LABS: BILIRUBIN,TOTAL 0.2 mg/dL (0.2-1); TOT PROT 6.4 g/dl (6.4-8.2)
[2023-10-13] MEDS ORDERED: ENOXAPARIN NA (PORCINE) 40 MG/0.4 ML DISP.SYRIN SQ SCH (10:00)
[2023-10-13] MEDS ORDERED: ZINC OXIDE 20% TOPICAL OINTMENT 30 GM TUBE TP PRN (10:00)
[2023-10-13] MEDS: LACTOBACILLUS ACIDOPHILUS 1 TABLET GT SCH (10:36)
[2023-10-13] MEDS: PIPERACILLIN/TAZOB 3.375 GM 3.375 GM in DEXTROSE 5%-WATER - 50 ML IVPB SCH ×2 (10:37→18:27)
[2023-10-13] MEDS: METOPROLOL TARTRATE 25 MG TABLET (FP) PO SCH (10:38)
[2023-10-13] MEDS ORDERED: SODIUM CHLORIDE 500 ML IV STA (10:57)
[2023-10-13] MEDS: ALBUTEROL SO4 2.5/IPRATROPIUM 0.5 INH SOL 3 ML VIAL.NEB. NEB SCH (11:20)
[2023-10-13] MEDS: SODIUM CHLORIDE 1,000 ML IV STA (11:38)
[2023-10-13] MEDS: methylPREDNISolone NA SUCC 40 MG/1 ML VIAL IVPUSH SCH (12:23)
[2023-10-13] MEDS: SODIUM CHLORIDE 0.9% 500 ML INFUS.BAG IV ONE (12:48)
[2023-10-13] MEDS: VANCOMYCIN 1,000 MG in DEXTROSE 5%-WATER - 250 ML IVPB SCH (16:22)
[2023-10-13] MEDS: AMINO ACIDS/PROTEIN HYDROLYS 30 ML LIQUID.PKT GT SCH (18:26)
[2023-10-14] MEDS ORDERED: ALBUTEROL SO4 2.5/IPRATROPIUM 0.5 INH SOL 3 ML VIAL.NEB. NEB PRN (08:00)
[2023-10-14 09:17] LABS: BASO % 0.2 % (0-2.0); EOS % 0.1 % (0-4.5); HEMATOCRIT 31.4 % (35.4-49); HEMOGLOBIN 10.5 GM/dL (11.7-16.9); LYMPH % 40.4 % (8-40); MCH 30.6 pg (25.7-33.7); MCHC 33.4 g/dl (32.0-35.9); MEAN CELL VOLUME 91.7 fl (80-96); MEAN PLT VOLUME 8.8 fl (7.5-11.1); MONO % 12.5 % (3.8-10.2); NEUT % 46.8 % (42.8-82.8); PLATELET COUNT 182 10^3/uL (134-434); RBC 3.43 M/mm3 (4.00-5.60); RDW 16.7 % (11.9-15.9); WHITE BLOOD COUNT 4.9 K/mm3 (4.0-10.0)
[2023-10-14 09:39] LABS: POTASSIUM 3.7 mmol/L (3.5-5.1)
[2023-10-14] MEDS: MULTIVIT-MINERALS ORAL LIQUID GT SCH (09:39)
[2023-10-14 09:49] LABS: ALBUMIN 2.6 g/dl (3.4-5.0); BLOOD UREA NITROGEN 13.5 mg/dL (7-18); CALCIUM 8.4 mg/dL (8.5-10.1)
[2023-10-14 09:52] LABS: CREATININE 0.3 mg/dL (0.55-1.3); MAGNESIUM 1.9 mg/dL (1.8-2.4); PHOSPHOROUS 3.2 mg/dL (2.5-4.9)
[2023-10-14 09:53] LABS: TOT PROT 6.2 g/dl (6.4-8.2)
[2023-10-14 09:54] LABS: BILIRUBIN,TOTAL 0.2 mg/dL (0.2-1)
[2023-10-14] MEDS: ASCORBIC ACID 250 MG TABLET (FP) GT SCH (14:43)
[2023-10-15 08:51] LABS: BASO % 0.3 % (0-2.0); EOS % 0.4 % (0-4.5); HEMOGLOBIN 10.1 GM/dL (11.7-16.9); MCHC 32.5 g/dl (32.0-35.9); MEAN CELL VOLUME 92.2 fl (80-96); MEAN PLT VOLUME 8.6 fl (7.5-11.1); MONO % 13.3 % (3.8-10.2); PLATELET COUNT 175 10^3/uL (134-434); RBC 3.36 M/mm3 (4.00-5.60); WHITE BLOOD COUNT 6.2 K/mm3 (4.0-10.0)
[2023-10-15 09:08] LABS: POTASSIUM 3.2 mmol/L (3.5-5.1)
[2023-10-15 09:13] LABS: ALBUMIN 2.6 g/dl (3.4-5.0); BLOOD UREA NITROGEN 17.4 mg/dL (7-18); CALCIUM 8.2 mg/dL (8.5-10.1); MAGNESIUM 2.1 mg/dL (1.8-2.4)
[2023-10-15 09:17] LABS: CREATININE 0.3 mg/dL (0.55-1.3); PHOSPHOROUS 3.4 mg/dL (2.5-4.9)
[2023-10-15 09:18] LABS: BILIRUBIN,TOTAL 0.3 mg/dL (0.2-1)
[2023-10-15] MEDS: KCL 10 MEQ IVPB 10 MEQ/100 ML INFUS.BAG IVPB SCH (11:39)
[2023-10-16 07:40] LABS: BASO % 0.2 % (0-2.0); EOS % 0.6 % (0-4.5); HEMATOCRIT 32.4 % (35.4-49); HEMOGLOBIN 10.7 GM/dL (11.7-16.9); LYMPH % 43.7 % (8-40); MCH 30.1 pg (25.7-33.7); MCHC 32.9 g/dl (32.0-35.9); MEAN CELL VOLUME 91.5 fl (80-96); MEAN PLT VOLUME 8.1 fl (7.5-11.1); MONO % 11.5 % (3.8-10.2); PLATELET COUNT 175 10^3/uL (134-434); RBC 3.55 M/mm3 (4.00-5.60); RDW 16.9 % (11.9-15.9); WHITE BLOOD COUNT 7.7 K/mm3 (4.0-10.0)
[2023-10-16 07:58] LABS: POTASSIUM 3.1 mmol/L (3.5-5.1)
[2023-10-16 08:00] LABS: ALBUMIN 2.7 g/dl (3.4-5.0); CALCIUM 8.1 mg/dL (8.5-10.1)
[2023-10-16 08:01] LABS: BLOOD UREA NITROGEN 13.7 mg/dL (7-18)
[2023-10-16 08:03] LABS: CREATININE 0.3 mg/dL (0.55-1.3); PHOSPHOROUS 4.2 mg/dL (2.5-4.9)
[2023-10-16 08:05] LABS: BILIRUBIN,TOTAL 0.3 mg/dL (0.2-1); TOT PROT 6.3 g/dl (6.4-8.2)
[2023-10-16 18:14] VITALS: RESP 18
[2023-10-16] MEDS: AMOX TR/POT CLAV 875MG/125MG TABLETS (FP) PO SCH (21:05)
[2023-10-17] MEDS: carBAMazepine 100 MG/5 ML UNIT-DOSE CUP GT SCH (07:49)
[2023-10-17 10:34] VITALS: BP 107/58; PULSE 96; TEMP 98.1
== END 2023-10-17 10:45 | disposition home or self-care (01) | DRG 137 ==
LOC: JER 15:46 → JERBED 16:40 → J4S 19:07
PROVIDERS: ADMIT Internal Medicine; ATTEND Internal Medicine
PROC: XW033E5 Introduction of Remdesivir Anti-infective into Peripheral Vein, Percutaneous Approach, New Technology Group 5 (ICD-10-PCS; principal; 2023-10-12)
DX: J69.0 Pneumonitis due to inhalation of food and vomit (principal); J96.21 Acute and chronic respiratory failure with hypoxia; Q02 Microcephaly; U07.1 COVID-19; R53.2 Functional quadriplegia; H47.619 Cortical blindness, unspecified side of brain; G80.9 Cerebral palsy, unspecified; E87.1 Hypo-osmolality and hyponatremia; Q67.5 Congenital deformity of spine; N50.82 Scrotal pain; N44.00 Torsion of testis, unspecified; G40.909 Epilepsy, unspecified, not intractable, without status epilepticus; J45.909 Unspecified asthma, uncomplicated; I10 Essential (primary) hypertension; R68.0 Hypothermia, not associated with low environmental temperature; G31.84 Mild cognitive impairment of uncertain or unknown etiology; K59.00 Constipation, unspecified; R19.7 Diarrhea, unspecified
CPT/HCPCS: 0241U-QW; 36415; 71045-TC-FY; 80053; 81003; 82550; 82553; 82803; 83605; 83735; 84100; 84484; 85025; 85610; 85730; 86140; 86850; 86900; 86901; 87040; 87086; 87633; 87899; 93005; 93010; 94640; 99291; J0248; J0475

== ENCOUNTER 2023-12-20 15:15 | Inpatient (IN) | payer OTHER ==
[2023-12-20 17:08] LABS: VENOUS BASE EXCESS 2.6 mmol/L (-2-2); VENOUS O2 SATURATION 92.4 % (70-80); VENOUS PCO2 46.4 mmHg (38-52); VENOUS PH 7.398 (7.310-7.410)
[2023-12-20 17:12] LABS: BASO % 0.4 % (0-2.0); HEMATOCRIT 34.6 % (35.4-49); HEMOGLOBIN 11.7 GM/dL (11.7-16.9); LYMPH % 32.8 % (8-40); MCH 30.1 pg (25.7-33.7); MCHC 33.8 g/dl (32.0-35.9); MEAN CELL VOLUME 88.8 fl (80-96); MEAN PLT VOLUME 8.4 fl (7.5-11.1); MONO % 11.7 % (3.8-10.2); NEUT % 54.1 % (42.8-82.8); PLATELET COUNT 244 10^3/uL (134-434); RBC 3.89 M/mm3 (4.00-5.60); RDW 15.3 % (11.9-15.9)
[2023-12-20 17:18] LABS: INR 1.21 (0.83-1.09)
[2023-12-20 17:21] LABS: ACTIVATED PTT 44.4 SECONDS (25.2-36.5)
[2023-12-20 17:29] LABS: POTASSIUM 4.1 mmol/L (3.5-5.1)
[2023-12-20 17:31] LABS: EPI CELLS 13 /uL (0-25.1); HYALINE CASTS 0 /uL (0-3.1); PH,URINE 7.5 (5.0-8.0); URINE APPEARANCE CLEAR; URINE BACTERIA 5 /uL (0-1359); URINE BILIRUBIN NEGATIVE (NEGATIVE); URINE COLOR YELLOW; URINE GLUCOSE (UA) NEGATIVE (NEGATIVE); URINE KETONE NEGATIVE (NEGATIVE); URINE LEUK ESTERASE TRACE (NEGATIVE); URINE NITRITE NEGATIVE (NEGATIVE); URINE PROTEIN NEGATIVE (NEGATIVE); URINE RBC 22 /uL (0-23.9); URINE UROBILINOGEN 0.2 mg/dL (0.2-1.0); URINE WBC 6 /uL (0-25.8)
[2023-12-20 17:31] LABS: ALBUMIN 3.1 g/dl (3.4-5.0); CALCIUM 8.5 mg/dL (8.5-10.1); MAGNESIUM 2.1 mg/dL (1.8-2.4)
[2023-12-20 17:35] LABS: CREATININE 0.3 mg/dL (0.55-1.3); PHOSPHOROUS 3.3 mg/dL (2.5-4.9); TOT PROT 7.2 g/dl (6.4-8.2)
[2023-12-20 17:36] LABS: BILIRUBIN,TOTAL 0.2 mg/dL (0.2-1)
[2023-12-20] MEDS ORDERED: PIPERACILLIN/TAZOB 4.5 GM 4.5 GM/100 ML BAG IVPB ONE (19:45)
[2023-12-20] MEDS ORDERED: VANCOMYCIN 1 GRAM (PRE-DOCKED) 1,000 MG/250 ML BAG IVPB ONE (19:45)
[2023-12-20] MEDS: PIPERACILLIN/TAZOB 4.5 GM 4.5 GM in DEXTROSE 5%-WATER 100 ML IVPB ONE (19:54)
[2023-12-20] MEDS: SODIUM CHLORIDE 0.9% 500 ML INFUS.BAG IV ONE (19:54)
[2023-12-20] MEDS: VANCOMYCIN 1,000 MG in DEXTROSE 5%-WATER - 250 ML IVPB ONE (20:30)
[2023-12-20] MEDS ORDERED: ZINC OXIDE 20% TOPICAL OINTMENT 30 GM TUBE TP PRN (21:16)
[2023-12-20] MEDS ORDERED: VITAMINS A AND D TOPICAL OINTMENT TP PRN (21:16)
[2023-12-20] MEDS ORDERED: MAG HYDROX/AL HYDROX/SIMETH 30 ML UNIT-DOSE CUP GT PRN (21:16)
[2023-12-20] MEDS ORDERED: BACITRACIN ZINC 15 GM TUBE TOPICAL OINTMENT TP PRN (21:16)
[2023-12-20] MEDS ORDERED: BISACODYL 10 MG SUPP.RECT RC PRN (21:16)
[2023-12-20] MEDS: VANCOMYCIN 1,000 MG in DEXTROSE 5%-WATER - 250 ML IVPB SCH (21:35)
[2023-12-20] MEDS ORDERED: [UNRECOGNIZED DRUG - OTHER] TP SCH (22:00)
[2023-12-20] MEDS ORDERED: FAMOTIDINE 20 MG/2.5 ML ORAL LIQUID GT SCH (22:00)
[2023-12-20] MEDS ORDERED: VANCOMYCIN/WATER FOR INJ (PEG) 1,000 MG/200 ML BAG IVPB SCH (22:15)
[2023-12-21] MEDS: GLYCOPYRROLATE 1 MG TABLET GT SCH (00:09)
[2023-12-21] MEDS: BACLOFEN 10 MG TABLET (FP) GT SCH (00:09)
[2023-12-21] MEDS: SCOPOLAMINE HYDROBROMIDE 1 PATCH PATCH.TD72 TD SCH (00:09)
[2023-12-21] MEDS: clonazePAM 0.5 MG TABLET GT SCH (00:09)
[2023-12-21] MEDS: METOPROLOL TARTRATE 25 MG TABLET (FP) PO SCH (00:09)
[2023-12-21] MEDS: FAMOTIDINE 20 MG/2.5 ML ORAL LIQUID GT SCH (00:09)
[2023-12-21] MEDS: CHOLECALCIFEROL (VIT D3) 1,000 UNIT (25 MCG) TABLET GT SCH (00:10)
[2023-12-21] MEDS: POLYETHYLENE GLYCOL (HEALTHYLAX) 3350 17 GM PACKET GT SCH (00:10)
[2023-12-21] MEDS ORDERED: PIPERACILLIN/TAZOB 4.5 GM 4.5 GM in DEXTROSE 5%-WATER 100 ML IVPB SCH (04:00)
[2023-12-21] MEDS: carBAMazepine 100 MG/5 ML UNIT-DOSE CUP GT SCH (05:37)
[2023-12-21] MEDS: ALBUTEROL SO4 2.5/IPRATROPIUM 0.5 INH SOL 3 ML VIAL.NEB. NEB SCH (07:18)
[2023-12-21] MEDS: BUDESONIDE 0.5 MG/2 ML INH SUSP VIAL NEB SCH (07:40)
[2023-12-21 07:57] LABS: BASO % 0.4 % (0-2.0); EOS % 0.8 % (0-4.5); HEMOGLOBIN 11.6 GM/dL (11.7-16.9); LYMPH % 28.1 % (8-40); MCH 30.7 pg (25.7-33.7); MCHC 34.2 g/dl (32.0-35.9); MEAN CELL VOLUME 89.9 fl (80-96); MEAN PLT VOLUME 8.8 fl (7.5-11.1); MONO % 14.5 % (3.8-10.2); NEUT % 56.2 % (42.8-82.8); PLATELET COUNT 252 10^3/uL (134-434); RBC 3.78 M/mm3 (4.00-5.60); RDW 15.2 % (11.9-15.9); WHITE BLOOD COUNT 3.9 K/mm3 (4.0-10.0)
[2023-12-21] MEDS ORDERED: AMINO ACIDS/PROTEIN HYDROLYS 30 ML LIQUID.PKT PO SCH (08:00)
[2023-12-21 08:02] LABS: POTASSIUM 4.2 mmol/L (3.5-5.1)
[2023-12-21 08:16] LABS: CALCIUM 8.5 mg/dL (8.5-10.1)
[2023-12-21 08:19] LABS: CREATININE 0.3 mg/dL (0.55-1.3)
[2023-12-21 08:20] LABS: BILIRUBIN,TOTAL 0.2 mg/dL (0.2-1); TOT PROT 6.9 g/dl (6.4-8.2)
[2023-12-21] MEDS ORDERED: VANCOMYCIN/WATER FOR INJ (PEG) 1,000 MG/200 ML BAG IVPB SCH (08:30)
[2023-12-21] MEDS: TAMSULOSIN HCL 0.4 MG CAP PO SCH (09:16)
[2023-12-21] MEDS: APIXABAN 2.5 MG TABLET GT SCH (09:16)
[2023-12-21] MEDS: levETIRAcetam 500 MG/5 ML ORAL SOLUTION (UNIT-DOSE CUPS) GT SCH (09:16)
[2023-12-21] MEDS ORDERED: LACTOBACILLUS ACIDOPHILUS GT SCH (10:00)
[2023-12-21] MEDS: SODIUM CHLORIDE 1 GM TABLET GT SCH (11:04)
[2023-12-22 07:27] LABS: BASO % 0.3 % (0-2.0); EOS % 1.3 % (0-4.5); HEMATOCRIT 36.3 % (35.4-49); HEMOGLOBIN 11.8 GM/dL (11.7-16.9); LYMPH % 42.1 % (8-40); MCH 29.5 pg (25.7-33.7); MCHC 32.5 g/dl (32.0-35.9); MEAN CELL VOLUME 90.8 fl (80-96); MEAN PLT VOLUME 8.6 fl (7.5-11.1); MONO % 13.8 % (3.8-10.2); NEUT % 42.5 % (42.8-82.8); PLATELET COUNT 252 10^3/uL (134-434); RDW 15.2 % (11.9-15.9); WHITE BLOOD COUNT 5.9 K/mm3 (4.0-10.0)
[2023-12-22 07:55] LABS: POTASSIUM 4.2 mmol/L (3.5-5.1)
[2023-12-22 08:14] LABS: ALBUMIN 3.2 g/dl (3.4-5.0); CALCIUM 8.8 mg/dL (8.5-10.1)
[2023-12-22 08:15] LABS: BLOOD UREA NITROGEN 8.4 mg/dL (7-18)
[2023-12-22 08:18] LABS: CREATININE 0.4 mg/dL (0.55-1.3)
[2023-12-22 08:20] LABS: BILIRUBIN,TOTAL 0.2 mg/dL (0.2-1); TOT PROT 7.4 g/dl (6.4-8.2)
[2023-12-22] MEDS: AMINO ACIDS GT SCH ×2 (11:07→11:08)
[2023-12-22] MEDS: PROTEIN HYDROLYS GT SCH ×2 (11:07→11:08)
[2023-12-22] MEDS: [UNRECOGNIZED DRUG - OTHER] GT SCH ×2 (11:07→11:08)
[2023-12-22 13:49] VITALS: BMI 27.3
[2023-12-23 07:13] LABS: BASO % 0.3 % (0-2.0); HEMATOCRIT 32.6 % (35.4-49); HEMOGLOBIN 10.7 GM/dL (11.7-16.9); LYMPH % 25.1 % (8-40); MCH 29.7 pg (25.7-33.7); MCHC 32.9 g/dl (32.0-35.9); MEAN CELL VOLUME 90.4 fl (80-96); MEAN PLT VOLUME 8.9 fl (7.5-11.1); MONO % 11.7 % (3.8-10.2); NEUT % 61.9 % (42.8-82.8); PLATELET COUNT 292 10^3/uL (134-434); RBC 3.61 M/mm3 (4.00-5.60); RDW 15.1 % (11.9-15.9); WHITE BLOOD COUNT 7.9 K/mm3 (4.0-10.0)
[2023-12-23 07:24] LABS: POTASSIUM 4.7 mmol/L (3.5-5.1)
[2023-12-23 07:29] LABS: ALBUMIN 2.9 g/dl (3.4-5.0); BLOOD UREA NITROGEN 8.2 mg/dL (7-18); CALCIUM 8.8 mg/dL (8.5-10.1)
[2023-12-23 07:32] LABS: CREATININE 0.3 mg/dL (0.55-1.3)
[2023-12-23 07:34] LABS: BILIRUBIN,TOTAL 0.3 mg/dL (0.2-1); TOT PROT 7.1 g/dl (6.4-8.2)
[2023-12-23] MEDS: AMINO ACIDS/PROTEIN HYDROLYS 30 ML LIQUID.PKT PO SCH (09:00)
[2023-12-23] MEDS ORDERED: IOHEXOL (OMNIPAQUE PO) 12 MG/ML - 500 ML BOTTLE PO ONE (15:59)
[2023-12-24 06:51] LABS: BASO % 0.3 % (0-2.0); EOS % 0.7 % (0-4.5); HEMATOCRIT 36.5 % (35.4-49); LYMPH % 11.8 % (8-40); MCH 29.7 pg (25.7-33.7); MEAN PLT VOLUME 8.4 fl (7.5-11.1); MONO % 7.4 % (3.8-10.2); NEUT % 79.8 % (42.8-82.8); PLATELET COUNT 270 10^3/uL (134-434); RBC 4.05 M/mm3 (4.00-5.60); RDW 15.1 % (11.9-15.9); WHITE BLOOD COUNT 10.5 K/mm3 (4.0-10.0)
[2023-12-24 07:06] LABS: POTASSIUM 4.2 mmol/L (3.5-5.1)
[2023-12-24 07:18] LABS: ALBUMIN 3.2 g/dl (3.4-5.0); BLOOD UREA NITROGEN 10.3 mg/dL (7-18); CALCIUM 8.9 mg/dL (8.5-10.1)
[2023-12-24 07:20] LABS: CREATININE 0.4 mg/dL (0.55-1.3)
[2023-12-24 07:22] LABS: TOT PROT 7.6 g/dl (6.4-8.2)
[2023-12-24 07:23] LABS: BILIRUBIN,TOTAL 0.4 mg/dL (0.2-1)
[2023-12-24] MEDS: ALBUTEROL SO4 0.083% IH SOL 2.5 MG/3 ML VIAL.NEB. NEB SCH (11:16)
[2023-12-24] MEDS: ACETYLCYSTEINE 20% 200MG/ML 4 ML VIAL *FOR ORAL / INH USE ONLY NEB SCH (11:17)
[2023-12-25 08:26] LABS: BASO % 0.2 % (0-2.0); EOS % 0.3 % (0-4.5); HEMATOCRIT 35.8 % (35.4-49); HEMOGLOBIN 12.1 GM/dL (11.7-16.9); LYMPH % 13.9 % (8-40); MCH 29.9 pg (25.7-33.7); MCHC 33.9 g/dl (32.0-35.9); MEAN CELL VOLUME 88.2 fl (80-96); MEAN PLT VOLUME 8.3 fl (7.5-11.1); MONO % 7.6 % (3.8-10.2); PLATELET COUNT 265 10^3/uL (134-434); RBC 4.06 M/mm3 (4.00-5.60); RDW 15.3 % (11.9-15.9); WHITE BLOOD COUNT 9.6 K/mm3 (4.0-10.0)
[2023-12-25 08:38] LABS: POTASSIUM 4.3 mmol/L (3.5-5.1)
[2023-12-25 08:45] LABS: CALCIUM 8.7 mg/dL (8.5-10.1)
[2023-12-25 08:46] LABS: ALBUMIN 3.1 g/dl (3.4-5.0); BLOOD UREA NITROGEN 11.9 mg/dL (7-18)
[2023-12-25 08:49] LABS: CREATININE 0.4 mg/dL (0.55-1.3)
[2023-12-25 08:50] LABS: BILIRUBIN,TOTAL 0.3 mg/dL (0.2-1)
[2023-12-25 08:51] LABS: TOT PROT 7.6 g/dl (6.4-8.2)
[2023-12-25] MEDS ORDERED: ACETAMINOPHEN 650 MG/20.3 ML ORAL SOLUTION (CUPS) GT PRN (13:50)
[2023-12-26 07:17] LABS: POTASSIUM 3.6 mmol/L (3.5-5.1)
[2023-12-26 07:22] LABS: HEMATOCRIT 35.4 % (35.4-49); HEMOGLOBIN 11.7 GM/dL (11.7-16.9); MCH 29.6 pg (25.7-33.7); MCHC 33.1 g/dl (32.0-35.9); MEAN CELL VOLUME 89.2 fl (80-96); MEAN PLT VOLUME 8.5 fl (7.5-11.1); PLATELET COUNT 237 10^3/uL (134-434); RBC 3.97 M/mm3 (4.00-5.60); RDW 15.1 % (11.9-15.9); WHITE BLOOD COUNT 5.5 K/mm3 (4.0-10.0)
[2023-12-26 07:25] LABS: CALCIUM 8.9 mg/dL (8.5-10.1)
[2023-12-26 07:26] LABS: MAGNESIUM 2.2 mg/dL (1.8-2.4); PHOSPHOROUS 3.7 mg/dL (2.5-4.9)
[2023-12-26 07:27] LABS: BILIRUBIN,TOTAL 0.4 mg/dL (0.2-1); TOT PROT 7.5 g/dl (6.4-8.2)
[2023-12-26 07:28] LABS: CREATININE 0.4 mg/dL (0.55-1.3)
[2023-12-27 09:33] LABS: BASO % 0.4 % (0-2.0); EOS % 1.2 % (0-4.5); HEMATOCRIT 36.5 % (35.4-49); HEMOGLOBIN 12.1 GM/dL (11.7-16.9); MCH 29.4 pg (25.7-33.7); MEAN CELL VOLUME 89.1 fl (80-96); MONO % 9.8 % (3.8-10.2); NEUT % 54.6 % (42.8-82.8); PLATELET COUNT 257 10^3/uL (134-434); RDW 15.2 % (11.9-15.9); WHITE BLOOD COUNT 6.6 K/mm3 (4.0-10.0)
[2023-12-27 09:48] LABS: POTASSIUM 3.7 mmol/L (3.5-5.1)
[2023-12-27 09:50] LABS: BLOOD UREA NITROGEN 10.3 mg/dL (7-18); CALCIUM 8.6 mg/dL (8.5-10.1)
[2023-12-27 09:53] LABS: CREATININE 0.4 mg/dL (0.55-1.3)
[2023-12-27 09:55] LABS: BILIRUBIN,TOTAL 0.3 mg/dL (0.2-1); TOT PROT 7.5 g/dl (6.4-8.2)
[2023-12-27] MEDS ORDERED: PIPERACILLIN/TAZOB 3.375 GM 3.375 GM in DEXTROSE 5%-WATER - 50 ML IVPB SCH (11:15)
[2023-12-27] MEDS: PIPERACILLIN/TAZOB 3.375 GM 3.375 GM in DEXTROSE 5%-WATER - 50 ML IVPB SCH (12:26)
[2023-12-27] MEDS: METOPROLOL TARTRATE 5 MG/5 ML VIAL IVPUSH ONE (19:55)
[2023-12-27] MEDS: ACETAMINOPHEN 650 MG/20.3 ML ORAL SOLUTION (CUPS) GT PRN (20:19)
[2023-12-27 21:17] LABS: URINE APPEARANCE CLEAR; URINE BILIRUBIN NEGATIVE (NEGATIVE); URINE COLOR YELLOW; URINE GLUCOSE (UA) NEGATIVE (NEGATIVE); URINE KETONE NEGATIVE (NEGATIVE); URINE LEUK ESTERASE NEGATIVE (NEGATIVE); URINE NITRITE NEGATIVE (NEGATIVE); URINE PROTEIN TRACE (NEGATIVE); URINE UROBILINOGEN 0.2 mg/dL (0.2-1.0)
[2023-12-28] MEDS: ACETAMINOPHEN 1000 MG/100 ML BAG IVPB ONE (06:13)
[2023-12-28 07:24] LABS: BASO % 0.4 % (0-2.0); EOS % 1.1 % (0-4.5); HEMATOCRIT 36.9 % (35.4-49); HEMOGLOBIN 12.3 GM/dL (11.7-16.9); LYMPH % 21.4 % (8-40); MCH 29.3 pg (25.7-33.7); MCHC 33.3 g/dl (32.0-35.9); MEAN PLT VOLUME 7.6 fl (7.5-11.1); MONO % 10.2 % (3.8-10.2); NEUT % 66.9 % (42.8-82.8); PLATELET COUNT 256 10^3/uL (134-434); RBC 4.19 M/mm3 (4.00-5.60); RDW 14.9 % (11.9-15.9); WHITE BLOOD COUNT 6.9 K/mm3 (4.0-10.0)
[2023-12-28 07:55] LABS: BILIRUBIN,TOTAL 0.5 mg/dL (0.2-1); BLOOD UREA NITROGEN 9.6 mg/dL (7-18); CALCIUM 8.7 mg/dL (8.5-10.1); CREATININE 0.4 mg/dL (0.55-1.3); POTASSIUM 3.4 mmol/L (3.5-5.1); TOT PROT 7.4 g/dl (6.4-8.2)
[2023-12-28 08:52] LABS: MAGNESIUM 2.3 mg/dL (1.8-2.4)
[2023-12-28] MEDS: POTASSIUM CHLORIDE ORAL LIQUID 20 MEQ/15 ML GT ONE (10:18)
[2023-12-28] MEDS ORDERED: PIPERACILLIN/TAZOB 3.375 GM 3.375 GM in DEXTROSE 5%-WATER - 50 ML IVPB SCH (16:00)
[2023-12-28] MEDS: PIPERACILLIN/TAZOB 3.375 GM 3.375 GM in DEXTROSE 5%-WATER - 50 ML IVPB SCH (17:29)
[2023-12-29 08:17] LABS: BASO % 0.7 % (0-2.0); EOS % 1.3 % (0-4.5); MCH 29.3 pg (25.7-33.7); MCHC 32.5 g/dl (32.0-35.9); MEAN CELL VOLUME 90.1 fl (80-96); MEAN PLT VOLUME 8.3 fl (7.5-11.1); MONO % 9.8 % (3.8-10.2); NEUT % 60.2 % (42.8-82.8); PLATELET COUNT 276 10^3/uL (134-434); RBC 4.11 M/mm3 (4.00-5.60); RDW 15.1 % (11.9-15.9); WHITE BLOOD COUNT 6.2 K/mm3 (4.0-10.0)
[2023-12-29 08:21] LABS: POTASSIUM 4.2 mmol/L (3.5-5.1)
[2023-12-29 08:23] LABS: CALCIUM 8.7 mg/dL (8.5-10.1)
[2023-12-29 08:24] LABS: ALBUMIN 3.2 g/dl (3.4-5.0); BLOOD UREA NITROGEN 11.7 mg/dL (7-18)
[2023-12-29 08:27] LABS: CREATININE 0.5 mg/dL (0.55-1.3)
[2023-12-29 08:29] LABS: BILIRUBIN,TOTAL 0.5 mg/dL (0.2-1); TOT PROT 7.5 g/dl (6.4-8.2)
[2023-12-29] MEDS: PIPERACILLIN/TAZOB 3.375 GM 3.375 GM in DEXTROSE 5%-WATER - 50 ML IVPB SCH (21:21)
[2023-12-30 07:30] LABS: BASO % 0.5 % (0-2.0); EOS % 1.2 % (0-4.5); HEMATOCRIT 34.2 % (35.4-49); HEMOGLOBIN 11.3 GM/dL (11.7-16.9); LYMPH % 20.4 % (8-40); MCH 29.6 pg (25.7-33.7); MEAN CELL VOLUME 89.7 fl (80-96); MEAN PLT VOLUME 7.8 fl (7.5-11.1); NEUT % 69.9 % (42.8-82.8); PLATELET COUNT 248 10^3/uL (134-434); RBC 3.82 M/mm3 (4.00-5.60); RDW 14.8 % (11.9-15.9); WHITE BLOOD COUNT 8.6 K/mm3 (4.0-10.0)
[2023-12-30 07:49] LABS: POTASSIUM 3.2 mmol/L (3.5-5.1)
[2023-12-30 07:55] LABS: ALBUMIN 2.8 g/dl (3.4-5.0); BLOOD UREA NITROGEN 14.3 mg/dL (7-18); CALCIUM 8.5 mg/dL (8.5-10.1)
[2023-12-30 07:58] LABS: CREATININE 0.4 mg/dL (0.55-1.3)
[2023-12-30 08:00] LABS: BILIRUBIN,TOTAL 0.3 mg/dL (0.2-1); TOT PROT 7.1 g/dl (6.4-8.2)
[2023-12-30 09:41] LABS: MAGNESIUM 2.1 mg/dL (1.8-2.4)
[2023-12-30] MEDS: POTASSIUM CHLORIDE ORAL LIQUID 20 MEQ/15 ML GT ONE (09:56)
[2023-12-30] MEDS: guaiFENesin 200 MG/10 ML 10 ML UNIT-DOSE CUPS GT PRN (09:57)
[2023-12-31 08:22] LABS: BASO % 0.4 % (0-2.0); EOS % 3.7 % (0-4.5); HEMATOCRIT 33.5 % (35.4-49); HEMOGLOBIN 11.2 GM/dL (11.7-16.9); LYMPH % 36.3 % (8-40); MCHC 33.4 g/dl (32.0-35.9); MEAN CELL VOLUME 89.7 fl (80-96); MEAN PLT VOLUME 7.8 fl (7.5-11.1); MONO % 10.6 % (3.8-10.2); PLATELET COUNT 277 10^3/uL (134-434); RBC 3.74 M/mm3 (4.00-5.60); RDW 15.2 % (11.9-15.9); WHITE BLOOD COUNT 5.3 K/mm3 (4.0-10.0)
[2023-12-31 08:23] LABS: POTASSIUM 4.1 mmol/L (3.5-5.1)
[2023-12-31 08:33] LABS: BLOOD UREA NITROGEN 10.8 mg/dL (7-18); CALCIUM 8.8 mg/dL (8.5-10.1)
[2023-12-31 08:36] LABS: CREATININE 0.3 mg/dL (0.55-1.3)
[2023-12-31 08:38] LABS: BILIRUBIN,TOTAL 0.2 mg/dL (0.2-1); TOT PROT 7.3 g/dl (6.4-8.2)
[2023-12-31 10:33] VITALS: BP 117/56; PULSE 81; RESP 18; TEMP 98.3
== END 2023-12-31 13:20 | DRG 951 ==
LOC: JER 15:15 → JERBED 20:06 → J4W 22:00
PROVIDERS: ADMIT Internal Medicine; ATTEND Internal Medicine
PROC: 0DP63UZ Removal of Feeding Device from Stomach, Percutaneous Approach (ICD-10-PCS; principal; 2023-12-23)
PROC: 0DH63UZ Insertion of Feeding Device into Stomach, Percutaneous Approach (ICD-10-PCS; 2023-12-23)
PROC: 3E0G76Z Introduction of Nutritional Substance into Upper GI, Via Natural or Artificial Opening (ICD-10-PCS; 2023-12-26)
DX: J69.0 Pneumonitis due to inhalation of food and vomit (principal); J96.01 Acute respiratory failure with hypoxia; E87.1 Hypo-osmolality and hyponatremia; G80.0 Spastic quadriplegic cerebral palsy; L89.616 Pressure-induced deep tissue damage of right heel; L89.626 Pressure-induced deep tissue damage of left heel; Q02 Microcephaly; R56.9 Unspecified convulsions; G80.9 Cerebral palsy, unspecified; I10 Essential (primary) hypertension; J45.909 Unspecified asthma, uncomplicated; N40.0 Benign prostatic hyperplasia without lower urinary tract symptoms; E87.6 Hypokalemia; K59.00 Constipation, unspecified; F79 Unspecified intellectual disabilities; J98.11 Atelectasis
CPT/HCPCS: 0241U-QW; 36415; 71045-TC-FY; 71250-TC; 74018-TC-FY; 80053; 81003; 82308; 82803; 83735; 84100; 84484; 85025; 85027; 85610; 85730; 87040; 87070; 87081; 87086; 87186; 87205; 87635; 93005; 93010; 94640; 99285-25; J0475

== ENCOUNTER 2024-01-17 04:27 | Inpatient (IN) | payer OTHER ==
[2024-01-17] MEDS ORDERED: PIPERACILLIN/TAZOB 4.5 GM 4.5 GM/100 ML BAG IVPB ONE (04:39)
[2024-01-17] MEDS ORDERED: VANCOMYCIN 1 GRAM (PRE-DOCKED) 1,000 MG/250 ML BAG IVPB ONE (04:39)
[2024-01-17] MEDS ORDERED: ALBUTEROL SO4 2.5/IPRATROPIUM 0.5 INH SOL 3 ML VIAL.NEB. NEB ONE ×2 (04:49→05:01)
[2024-01-17 05:17] LABS: VENOUS BASE EXCESS -0.6 mmol/L (-2-2); VENOUS O2 SATURATION 91.6 % (70-80); VENOUS PCO2 46.5 mmHg (38-52); VENOUS PH 7.354 (7.310-7.410)
[2024-01-17] MEDS: VANCOMYCIN 1,000 MG in DEXTROSE 5%-WATER - 250 ML IVPB ONE (05:18)
[2024-01-17] MEDS: PIPERACILLIN/TAZOB 4.5 GM 4.5 GM in DEXTROSE 5%-WATER 100 ML IVPB ONE (05:18)
[2024-01-17] MEDS: ALBUTEROL SO4 2.5/IPRATROPIUM 0.5 INH SOL 3 ML VIAL.NEB. NEB ONE (05:18)
[2024-01-17] MEDS: SODIUM CHLORIDE 0.9% 500 ML INFUS.BAG IV ONE ×2 (05:18→05:36)
[2024-01-17] MEDS ORDERED: ACETAMINOPHEN INJECTION 100 ML IVPB ONE (05:19)
[2024-01-17 05:22] LABS: INR 1.11 (0.83-1.09); PROTHROMBIN TIME (PATIENT) 12.5 SEC (9.7-13.0)
[2024-01-17] MEDS: ACETAMINOPHEN 1000 MG/100 ML BAG IVPB ONE (05:24)
[2024-01-17 05:27] LABS: ACTIVATED PTT 29.9 SECONDS (25.2-36.5)
[2024-01-17 05:30] LABS: POTASSIUM 5.1 mmol/L (3.5-5.1)
[2024-01-17 05:33] LABS: ALBUMIN 3.7 g/dl (3.4-5.0)
[2024-01-17 05:36] LABS: CREATININE 0.5 mg/dL (0.55-1.3)
[2024-01-17 05:37] LABS: BILIRUBIN,TOTAL 0.2 mg/dL (0.2-1); TOT PROT 8.3 g/dl (6.4-8.2)
[2024-01-17 06:11] LABS: PH,URINE 7.5 (5.0-8.0); URINE APPEARANCE CLOUDY; URINE BILIRUBIN NEGATIVE (NEGATIVE); URINE COLOR YELLOW; URINE GLUCOSE (UA) NEGATIVE (NEGATIVE); URINE KETONE NEGATIVE (NEGATIVE); URINE LEUK ESTERASE NEGATIVE (NEGATIVE); URINE NITRITE NEGATIVE (NEGATIVE); URINE PROTEIN NEGATIVE (NEGATIVE); URINE UROBILINOGEN 0.2 mg/dL (0.2-1.0)
[2024-01-17 06:25] LABS: BASO % 0.3 % (0-2.0); EOS % 0.1 % (0-4.5); HEMATOCRIT 31.7 % (35.4-49); HEMOGLOBIN 10.7 GM/dL (11.7-16.9); LYMPH % 6.1 % (8-40); MCH 29.1 pg (25.7-33.7); MCHC 33.8 g/dl (32.0-35.9); MEAN CELL VOLUME 86.1 fl (80-96); MEAN PLT VOLUME 8.5 fl (7.5-11.1); MONO % 5.8 % (3.8-10.2); NEUT % 87.7 % (42.8-82.8); PLATELET COUNT 256 10^3/uL (134-434); RBC 3.68 M/mm3 (4.00-5.60); RDW 15.5 % (11.9-15.9); WHITE BLOOD COUNT 11.2 K/mm3 (4.0-10.0)
[2024-01-17 08:49] LABS: POTASSIUM 3.8 mmol/L (3.5-5.1)
[2024-01-17 08:50] LABS: CALCIUM 7.9 mg/dL (8.5-10.1)
[2024-01-17 08:51] LABS: BLOOD UREA NITROGEN 12.1 mg/dL (7-18)
[2024-01-17 08:54] LABS: CREATININE 0.3 mg/dL (0.55-1.3)
[2024-01-17] MEDS ORDERED: RAPID SEQUENCE INTUBATION KIT NR ONE (09:42)
[2024-01-17] MEDS ORDERED: PROPOFOL 1,000,000 MCG/100 ML VIAL ONE (10:05)
[2024-01-17] MEDS: ALBUTEROL SO4 0.083% IH SOL 2.5 MG/3 ML VIAL.NEB. NEB ONE (10:30)
[2024-01-17] MEDS: HEPARIN NA (PORCINE) 5,000 UNITS/ML 1ML VIAL SQ SCH (10:57)
[2024-01-17] MEDS: SCOPOLAMINE HYDROBROMIDE 1 PATCH PATCH.TD72 TD SCH (11:13)
[2024-01-17] MEDS ORDERED: MIDAZOLAM HCL 2 MG/2 ML SINGLE DOSE VIAL ONE ×3 (12:06→12:42)
[2024-01-17] MEDS: MIDAZOLAM IN 0.9 % SOD.CHLORID 100 MG/100 ML PLAST..BAG IVPB SCH (12:45)
[2024-01-17 13:04] LABS: ARTERIAL BLD GAS O2 SATURATION 97.1 % (95-98); ARTERIAL BLOOD GAS BASE EXCESS -2.7 mmol/L (-2-2); ARTERIAL BLOOD GAS PO2 91.4 mmHg (80-100)
[2024-01-17 13:05] LABS: ALLENS TEST POSITIVE
[2024-01-17 13:06] LABS: VENT MODE A/C; VENT RATE 16
[2024-01-17] MEDS ORDERED: MIDAZOLAM HCL 2 MG/2 ML SINGLE DOSE VIAL IVPUSH ONE (13:19)
[2024-01-17] MEDS ORDERED: MIDAZOLAM HCL 5 MG/1 ML Single Dose Vial IVPUSH ONE (13:20)
[2024-01-17] MEDS: KETAMINE HCL 200 MG/20 ML VIAL IVPUSH ONE ×2 (13:21→16:31)
[2024-01-17] MEDS: MIDAZOLAM HCL 2 MG/2 ML SINGLE DOSE VIAL IVPUSH ONE ×3 (13:40)
[2024-01-17] MEDS: MUPIROCIN 2% TOPICAL OINTMENT FOR DECOLONIZATION NS SCH (13:41)
[2024-01-17] MEDS ORDERED: PIPERACILLIN/TAZOB 4.5 GM 4.5 GM in DEXTROSE 5%-WATER 100 ML IVPB SCH (15:00)
[2024-01-17] MEDS: PIPERACILLIN/TAZOB 4.5 GM 4.5 GM in DEXTROSE 5%-WATER 100 ML IVPB SCH ×3 (15:44→17:14)
[2024-01-17] MEDS: FENTANYL NS IVPB 500 MCG/100 ML BAG IVPB SCH (15:45)
[2024-01-17] MEDS: DEXTROSE 5%-NORMAL SALINE 1,000 ML IV SCH (15:45)
[2024-01-17] MEDS: MIDAZOLAM HCL 5 MG/1 ML Single Dose Vial IVPUSH ONE (17:14)
[2024-01-17] MEDS: VANCOMYCIN/WATER FOR INJ (PEG) 1,000 MG/200 ML BAG IVPB SCH (17:23)
[2024-01-17] MEDS: CHLORHEXIDINE GLUCONATE 4% CLEANSER FOR DECOLONIZATION TP SCH (21:11)
[2024-01-18 07:01] LABS: BASO % 0.4 % (0-2.0); EOS % 3.2 % (0-4.5); HEMATOCRIT 27.5 % (35.4-49); HEMOGLOBIN 9.2 GM/dL (11.7-16.9); MCH 29.3 pg (25.7-33.7); MCHC 33.4 g/dl (32.0-35.9); MEAN CELL VOLUME 87.7 fl (80-96); MEAN PLT VOLUME 8.6 fl (7.5-11.1); MONO % 15.8 % (3.8-10.2); NEUT % 67.6 % (42.8-82.8); PLATELET COUNT 184 10^3/uL (134-434); RBC 3.14 M/mm3 (4.00-5.60); RDW 15.2 % (11.9-15.9); WHITE BLOOD COUNT 3.4 K/mm3 (4.0-10.0)
[2024-01-18 07:17] LABS: POTASSIUM 3.2 mmol/L (3.5-5.1)
[2024-01-18 07:20] LABS: BLOOD UREA NITROGEN 6.9 mg/dL (7-18)
[2024-01-18 07:21] LABS: CALCIUM 7.7 mg/dL (8.5-10.1)
[2024-01-18 07:23] LABS: CREATININE 0.2 mg/dL (0.55-1.3); PHOSPHOROUS 2.3 mg/dL (2.5-4.9)
[2024-01-18 07:24] LABS: BILIRUBIN,TOTAL 0.5 mg/dL (0.2-1)
[2024-01-18 07:36] LABS: ALBUMIN 2.5 g/dl (3.4-5.0); TOT PROT 5.9 g/dl (6.4-8.2)
[2024-01-18] MEDS: NAPH,MB-DB/K PH,MBDB POWDER PACKET PEG ONE (08:11)
[2024-01-18] MEDS: KCL 10 MEQ IVPB 10 MEQ/100 ML INFUS.BAG IVPB SCH (08:22)
[2024-01-18] MEDS: DEXMEDETOMIDINE PREMIX 400 MCG/100 ML BAG IVPB SCH (13:47)
[2024-01-19 06:59] LABS: HEMATOCRIT 28.8 % (35.4-49); HEMOGLOBIN 9.6 GM/dL (11.7-16.9); MCHC 33.4 g/dl (32.0-35.9); MEAN CELL VOLUME 86.6 fl (80-96); MEAN PLT VOLUME 8.4 fl (7.5-11.1); PLATELET COUNT 190 10^3/uL (134-434); RBC 3.32 M/mm3 (4.00-5.60); RDW 15.8 % (11.9-15.9); WHITE BLOOD COUNT 3.7 K/mm3 (4.0-10.0)
[2024-01-19 07:20] LABS: CHLORIDE 104 mmol/L (98-107); POTASSIUM 3.4 mmol/L (3.5-5.1); SODIUM 133 mmol/L (136-145)
[2024-01-19 07:24] LABS: CALCIUM 8.1 mg/dL (8.5-10.1)
[2024-01-19 07:25] LABS: ALBUMIN 2.5 g/dl (3.4-5.0); ANION GAP 6 mmol/L (4-13); CO2 23 mmol/L (21-32); GLUCOSE,RANDOM 82 mg/dL (74-106); MAGNESIUM 1.8 mg/dL (1.8-2.4)
[2024-01-19 07:28] LABS: CREATININE 0.3 mg/dL (0.55-1.3); PHOSPHOROUS 2.4 mg/dL (2.5-4.9); SGOT/AST 56 U/L (15-37); SGPT/ALT 79 U/L (13-61)
[2024-01-19 07:29] LABS: BILIRUBIN,TOTAL 0.5 mg/dL (0.2-1); TOT PROT 6.1 g/dl (6.4-8.2)
[2024-01-19 07:31] LABS: ALK PHOS 95 U/L (45-117)
[2024-01-19 07:46] LABS: BLOOD UREA NITROGEN 2.3 mg/dL (7-18)
[2024-01-19 08:49] LABS: ANISOCYTOSIS 1+; MACROCYTOSIS 0
[2024-01-19] MEDS: AMINO ACIDS/PROTEIN HYDROLYS 30 ML LIQUID.PKT PO SCH (08:51)
[2024-01-19] MEDS: POTASSIUM PHOSPHATE 30 MM in SODIUM CHLORIDE 250 ML IVPB ONE (10:26)
[2024-01-20 15:43] LABS: BASO % 0.4 % (0-2.0); EOS % 2.5 % (0-4.5); HEMATOCRIT 29.7 % (35.4-49); LYMPH % 30.7 % (8-40); MCH 28.8 pg (25.7-33.7); MCHC 33.7 g/dl (32.0-35.9); MEAN CELL VOLUME 85.6 fl (80-96); MEAN PLT VOLUME 8.1 fl (7.5-11.1); MONO % 16.2 % (3.8-10.2); NEUT % 50.2 % (42.8-82.8); PLATELET COUNT 191 10^3/uL (134-434); RBC 3.47 M/mm3 (4.00-5.60); RDW 15.5 % (11.9-15.9)
[2024-01-20 15:53] VITALS: BMI 25.0
[2024-01-20 16:07] LABS: POTASSIUM 3.4 mmol/L (3.5-5.1)
[2024-01-20 16:09] LABS: CALCIUM 8.6 mg/dL (8.5-10.1)
[2024-01-20 16:10] LABS: ALBUMIN 2.4 g/dl (3.4-5.0); BLOOD UREA NITROGEN 5.1 mg/dL (7-18); MAGNESIUM 1.8 mg/dL (1.8-2.4)
[2024-01-20 16:13] LABS: CREATININE 0.3 mg/dL (0.55-1.3); PHOSPHOROUS 3.5 mg/dL (2.5-4.9)
[2024-01-20 16:15] LABS: TOT PROT 6.4 g/dl (6.4-8.2)
[2024-01-20 16:19] LABS: BILIRUBIN,TOTAL 0.3 mg/dL (0.2-1)
[2024-01-20] MEDS ORDERED: BISACODYL 10 MG SUPP.RECT PR PRN (18:12)
[2024-01-20] MEDS ORDERED: ACETYLCYSTEINE 20% 200MG/ML 30 ML VIAL *FOR ORAL / INH USE ONLY NEB SCH (20:00)
[2024-01-20] MEDS: BUDESONIDE 0.5 MG/2 ML INH SUSP VIAL NEB SCH (20:29)
[2024-01-20] MEDS: ACETYLCYSTEINE 20% 200MG/ML 4 ML VIAL *FOR ORAL / INH USE ONLY NEB SCH (20:29)
[2024-01-20] MEDS: levETIRAcetam 500 MG/5 ML INJECTION VIAL IVPB SCH (20:59)
[2024-01-20] MEDS: clonazePAM 0.5 MG TABLET GT SCH (21:25)
[2024-01-20] MEDS: BACLOFEN 10 MG TABLET (FP) GT SCH (21:25)
[2024-01-20] MEDS: POLYETHYLENE GLYCOL (HEALTHYLAX) 3350 17 GM PACKET GT SCH (21:26)
[2024-01-20] MEDS: GLYCOPYRROLATE 1 MG TABLET GT SCH (21:27)
[2024-01-20] MEDS: METOPROLOL TARTRATE 25 MG TABLET (FP) GT SCH (21:27)
[2024-01-20] MEDS: CHOLECALCIFEROL (VIT D3) 1,000 UNIT (25 MCG) TABLET GT SCH (21:27)
[2024-01-20] MEDS: NAPHAZOLINE/PHENIRAMINE OPHTHALMIC 15 ML BOTTLE OU PRN (21:35)
[2024-01-21] MEDS ORDERED: EPINEPHrine 1:10,000 (P-F SYR) 1 MG/10 ML DISP.SYRIN ONE (01:39)
[2024-01-21] MEDS: VANCOMYCIN/WATER 1250 MG 1,250 MG/250 ML BAG IVPB SCH (05:13)
[2024-01-21 07:11] LABS: BASO % 0.5 % (0-2.0); EOS % 3.3 % (0-4.5); HEMATOCRIT 27.3 % (35.4-49); LYMPH % 41.6 % (8-40); MCH 28.6 pg (25.7-33.7); MEAN CELL VOLUME 86.8 fl (80-96); MEAN PLT VOLUME 8.2 fl (7.5-11.1); NEUT % 37.6 % (42.8-82.8); PLATELET COUNT 190 10^3/uL (134-434); RBC 3.15 M/mm3 (4.00-5.60); RDW 15.3 % (11.9-15.9); WHITE BLOOD COUNT 4.8 K/mm3 (4.0-10.0)
[2024-01-21 07:38] LABS: POTASSIUM 3.1 mmol/L (3.5-5.1)
[2024-01-21 07:42] LABS: CALCIUM 7.9 mg/dL (8.5-10.1)
[2024-01-21 07:43] LABS: ALBUMIN 2.2 g/dl (3.4-5.0); BLOOD UREA NITROGEN 4.3 mg/dL (7-18); MAGNESIUM 1.8 mg/dL (1.8-2.4)
[2024-01-21 07:46] LABS: CREATININE 0.2 mg/dL (0.55-1.3); PHOSPHOROUS 3.8 mg/dL (2.5-4.9)
[2024-01-21 07:47] LABS: BILIRUBIN,TOTAL 0.5 mg/dL (0.2-1); TOT PROT 5.9 g/dl (6.4-8.2)
[2024-01-21] MEDS: ALBUTEROL SO4 0.5 % INH SOLN 2.5 MG/0.5 ML VIAL.NEB. NEB PRN (08:00)
[2024-01-21] MEDS: AMINO ACIDS/PROTEIN HYDROLYS 30 ML LIQUID.PKT GT SCH (08:23)
[2024-01-21] MEDS: GLUCAGON 1 MG KIT IVPUSH ONE (08:38)
[2024-01-21] MEDS: SODIUM CHLORIDE 500 ML IV STA (08:39)
[2024-01-21] MEDS: SODIUM CHLORIDE 1 GM TABLET GT SCH (08:59)
[2024-01-21] MEDS: KCL 20 MEQ PREMIX BAG 20 MEQ/100 ML INFUS.BAG IVPB SCH (09:38)
[2024-01-21] MEDS ORDERED: KETAMINE HCL 200 MG/20 ML VIAL IVPUSH ONE (15:01)
[2024-01-21] MEDS: LACTATED RINGERS SOLUTION 1000 ML INFUS.BAG IV ONE (17:58)
[2024-01-21] MEDS: DEXMEDETOMIDINE PREMIX 400 MCG/100 ML BAG IVPB SCH (21:35)
[2024-01-22 06:57] LABS: BASO % 0.4 % (0-2.0); EOS % 4.1 % (0-4.5); HEMATOCRIT 24.8 % (35.4-49); HEMOGLOBIN 8.3 GM/dL (11.7-16.9); LYMPH % 29.9 % (8-40); MCH 29.4 pg (25.7-33.7); MCHC 33.5 g/dl (32.0-35.9); MEAN CELL VOLUME 87.7 fl (80-96); MEAN PLT VOLUME 8.2 fl (7.5-11.1); MONO % 13.3 % (3.8-10.2); NEUT % 52.3 % (42.8-82.8); PLATELET COUNT 155 10^3/uL (134-434); RBC 2.82 M/mm3 (4.00-5.60); RDW 15.8 % (11.9-15.9); WHITE BLOOD COUNT 4.7 K/mm3 (4.0-10.0)
[2024-01-22 07:06] LABS: POTASSIUM 3.4 mmol/L (3.5-5.1)
[2024-01-22 07:12] LABS: CALCIUM 8.2 mg/dL (8.5-10.1)
[2024-01-22 07:13] LABS: ALBUMIN 2.1 g/dl (3.4-5.0); MAGNESIUM 1.7 mg/dL (1.8-2.4)
[2024-01-22 07:16] LABS: CREATININE 0.3 mg/dL (0.55-1.3); PHOSPHOROUS 3.1 mg/dL (2.5-4.9); TOT PROT 5.5 g/dl (6.4-8.2)
[2024-01-22 07:17] LABS: BILIRUBIN,TOTAL 0.4 mg/dL (0.2-1)
[2024-01-22] MEDS: POTASSIUM CHLORIDE ORAL LIQUID 20 MEQ/15 ML GT ONE (09:17)
[2024-01-22] MEDS: MAGNESIUM 2GM/50ML STERILE WATER IVPB IVPB ONE (12:10)
[2024-01-22] MEDS ORDERED: PROPOFOL 1,000,000 MCG/100 ML VIAL ONE (18:41)
[2024-01-23 06:40] LABS: BASO % 0.5 % (0-2.0); EOS % 5.2 % (0-4.5); HEMATOCRIT 25.7 % (35.4-49); HEMOGLOBIN 8.7 GM/dL (11.7-16.9); MCH 29.4 pg (25.7-33.7); MCHC 33.8 g/dl (32.0-35.9); MEAN CELL VOLUME 86.9 fl (80-96); MEAN PLT VOLUME 8.4 fl (7.5-11.1); MONO % 11.2 % (3.8-10.2); NEUT % 34.1 % (42.8-82.8); PLATELET COUNT 170 10^3/uL (134-434); RBC 2.96 M/mm3 (4.00-5.60); RDW 15.8 % (11.9-15.9)
[2024-01-23 06:56] LABS: POTASSIUM 3.8 mmol/L (3.5-5.1)
[2024-01-23 06:59] LABS: CALCIUM 7.8 mg/dL (8.5-10.1)
[2024-01-23 07:00] LABS: ALBUMIN 2.2 g/dl (3.4-5.0); BLOOD UREA NITROGEN 5.6 mg/dL (7-18)
[2024-01-23 07:03] LABS: CREATININE 0.2 mg/dL (0.55-1.3)
[2024-01-23 07:04] LABS: BILIRUBIN,TOTAL 0.4 mg/dL (0.2-1); TOT PROT 5.8 g/dl (6.4-8.2)
[2024-01-23] MEDS: ALBUTEROL SO4 0.5 % INH SOLN 2.5 MG/0.5 ML VIAL.NEB. NEB SCH (15:15)
[2024-01-24 06:53] LABS: BASO % 0.4 % (0-2.0); EOS % 4.5 % (0-4.5); HEMATOCRIT 30.8 % (35.4-49); HEMOGLOBIN 10.1 GM/dL (11.7-16.9); LYMPH % 27.5 % (8-40); MCH 28.4 pg (25.7-33.7); MCHC 32.7 g/dl (32.0-35.9); MEAN CELL VOLUME 86.9 fl (80-96); MEAN PLT VOLUME 8.3 fl (7.5-11.1); MONO % 10.7 % (3.8-10.2); NEUT % 56.9 % (42.8-82.8); PLATELET COUNT 235 10^3/uL (134-434); RBC 3.55 M/mm3 (4.00-5.60); RDW 15.6 % (11.9-15.9); WHITE BLOOD COUNT 7.3 K/mm3 (4.0-10.0)
[2024-01-24 07:11] LABS: POTASSIUM 4.1 mmol/L (3.5-5.1)
[2024-01-24 07:15] LABS: ALBUMIN 2.4 g/dl (3.4-5.0); BLOOD UREA NITROGEN 7.7 mg/dL (7-18)
[2024-01-24 07:16] LABS: CALCIUM 8.2 mg/dL (8.5-10.1)
[2024-01-24 07:17] LABS: CREATININE 0.3 mg/dL (0.55-1.3)
[2024-01-24 07:19] LABS: BILIRUBIN,TOTAL 0.3 mg/dL (0.2-1)
[2024-01-24 07:24] LABS: TOT PROT 6.4 g/dl (6.4-8.2)
[2024-01-24] MEDS: CALCIUM GLUC IN NACL, ISO-OSM 1 GM/50 ML BAG IVPB ONE (10:47)
[2024-01-25] MEDS: LACTATED RINGERS SOLUTION 1000 ML INFUS.BAG IV ONE (06:24)
[2024-01-25 06:57] LABS: BASO % 0.1 % (0-2.0); EOS % 0.2 % (0-4.5); HEMATOCRIT 27.7 % (35.4-49); HEMOGLOBIN 9.2 GM/dL (11.7-16.9); LYMPH % 6.2 % (8-40); MCH 28.6 pg (25.7-33.7); MCHC 33.3 g/dl (32.0-35.9); MEAN PLT VOLUME 7.7 fl (7.5-11.1); MONO % 4.4 % (3.8-10.2); NEUT % 89.1 % (42.8-82.8); PLATELET COUNT 252 10^3/uL (134-434); RBC 3.22 M/mm3 (4.00-5.60); RDW 15.7 % (11.9-15.9); WHITE BLOOD COUNT 18.3 K/mm3 (4.0-10.0)
[2024-01-25 07:26] LABS: POTASSIUM 3.8 mmol/L (3.5-5.1)
[2024-01-25 07:28] LABS: CALCIUM 8.4 mg/dL (8.5-10.1)
[2024-01-25 07:29] LABS: ALBUMIN 2.2 g/dl (3.4-5.0); BLOOD UREA NITROGEN 9.1 mg/dL (7-18)
[2024-01-25 07:32] LABS: CREATININE 0.4 mg/dL (0.55-1.3)
[2024-01-25 07:33] LABS: BILIRUBIN,TOTAL 0.6 mg/dL (0.2-1)
[2024-01-26 06:37] LABS: BASO % 0.4 % (0-2.0); EOS % 1.8 % (0-4.5); HEMOGLOBIN 9.9 GM/dL (11.7-16.9); LYMPH % 20.5 % (8-40); MCH 28.5 pg (25.7-33.7); MCHC 33.1 g/dl (32.0-35.9); MEAN CELL VOLUME 86.3 fl (80-96); MEAN PLT VOLUME 7.8 fl (7.5-11.1); MONO % 10.5 % (3.8-10.2); NEUT % 66.8 % (42.8-82.8); PLATELET COUNT 297 10^3/uL (134-434); RBC 3.47 M/mm3 (4.00-5.60); WHITE BLOOD COUNT 7.9 K/mm3 (4.0-10.0)
[2024-01-26 06:58] LABS: POTASSIUM 3.5 mmol/L (3.5-5.1)
[2024-01-26 07:07] LABS: ALBUMIN 2.6 g/dl (3.4-5.0); BLOOD UREA NITROGEN 6.8 mg/dL (7-18); CALCIUM 8.6 mg/dL (8.5-10.1); MAGNESIUM 2.1 mg/dL (1.8-2.4)
[2024-01-26 07:11] LABS: CREATININE 0.3 mg/dL (0.55-1.3); PHOSPHOROUS 3.3 mg/dL (2.5-4.9)
[2024-01-26 07:12] LABS: BILIRUBIN,TOTAL 0.6 mg/dL (0.2-1)
[2024-01-26] MEDS ORDERED: VANCOMYCIN 250 MG/5 ML ORAL SOLUTION (RESTRICTED TO ID ONLY) PO SCH (12:00)
[2024-01-26] MEDS: VANCOMYCIN 250 MG/5 ML ORAL SOLUTION (RESTRICTED TO ID ONLY) GT SCH (12:55)
[2024-01-26] MEDS: VANCOMYCIN ORAL SOLUTION 125 MG/2.5 ML GT SCH (13:00)
[2024-01-26] MEDS: ACETAMINOPHEN 1000 MG/100 ML BAG IVPB ONE (16:12)
[2024-01-27 05:59] LABS: HEMATOCRIT 29.6 % (35.4-49); HEMOGLOBIN 9.8 GM/dL (11.7-16.9); MCH 28.6 pg (25.7-33.7); MEAN CELL VOLUME 86.7 fl (80-96); MEAN PLT VOLUME 7.6 fl (7.5-11.1); PLATELET COUNT 317 10^3/uL (134-434); RBC 3.41 M/mm3 (4.00-5.60); WHITE BLOOD COUNT 6.5 K/mm3 (4.0-10.0)
[2024-01-27 06:18] LABS: POTASSIUM 3.6 mmol/L (3.5-5.1)
[2024-01-27 06:25] LABS: CALCIUM 8.6 mg/dL (8.5-10.1)
[2024-01-27 06:26] LABS: ALBUMIN 2.6 g/dl (3.4-5.0); BLOOD UREA NITROGEN 8.6 mg/dL (7-18); MAGNESIUM 2.1 mg/dL (1.8-2.4)
[2024-01-27 06:29] LABS: CREATININE 0.3 mg/dL (0.55-1.3); PHOSPHOROUS 3.5 mg/dL (2.5-4.9)
[2024-01-27 06:30] LABS: BILIRUBIN,TOTAL 0.4 mg/dL (0.2-1)
[2024-01-27] MEDS: TAMSULOSIN HCL 0.4 MG CAP PO SCH (16:40)
[2024-01-28] MEDS: ACETAMINOPHEN 1000 MG/100 ML BAG IVPB PRN (01:57)
[2024-01-28 06:53] LABS: HEMATOCRIT 30.9 % (35.4-49); HEMOGLOBIN 10.1 GM/dL (11.7-16.9); MCH 28.7 pg (25.7-33.7); MCHC 32.5 g/dl (32.0-35.9); MEAN CELL VOLUME 88.4 fl (80-96); MEAN PLT VOLUME 7.9 fl (7.5-11.1); PLATELET COUNT 334 10^3/uL (134-434); RDW 16.2 % (11.9-15.9); WHITE BLOOD COUNT 6.8 K/mm3 (4.0-10.0)
[2024-01-28 06:54] LABS: POTASSIUM 3.9 mmol/L (3.5-5.1)
[2024-01-28 07:07] LABS: CALCIUM 8.7 mg/dL (8.5-10.1)
[2024-01-28 07:09] LABS: ALBUMIN 2.6 g/dl (3.4-5.0); BLOOD UREA NITROGEN 9.6 mg/dL (7-18); MAGNESIUM 2.1 mg/dL (1.8-2.4)
[2024-01-28 07:12] LABS: BILIRUBIN,TOTAL 0.4 mg/dL (0.2-1); CREATININE 0.4 mg/dL (0.55-1.3); PHOSPHOROUS 3.6 mg/dL (2.5-4.9); TOT PROT 6.9 g/dl (6.4-8.2)
[2024-01-28] MEDS ORDERED: ACETAMINOPHEN 1000 MG/100 ML BAG IVPB PRN (11:03)
[2024-01-29 06:33] LABS: BASO % 0.5 % (0-2.0); EOS % 3.8 % (0-4.5); HEMATOCRIT 30.4 % (35.4-49); HEMOGLOBIN 9.9 GM/dL (11.7-16.9); LYMPH % 24.2 % (8-40); MCH 28.5 pg (25.7-33.7); MCHC 32.4 g/dl (32.0-35.9); MEAN PLT VOLUME 7.6 fl (7.5-11.1); MONO % 10.3 % (3.8-10.2); NEUT % 61.2 % (42.8-82.8); PLATELET COUNT 407 10^3/uL (134-434); RBC 3.46 M/mm3 (4.00-5.60); WHITE BLOOD COUNT 5.4 K/mm3 (4.0-10.0)
[2024-01-29 06:47] LABS: CALCIUM 8.5 mg/dL (8.5-10.1)
[2024-01-29 06:48] LABS: ALBUMIN 2.7 g/dl (3.4-5.0); BLOOD UREA NITROGEN 10.2 mg/dL (7-18); MAGNESIUM 2.1 mg/dL (1.8-2.4)
[2024-01-29 06:51] LABS: CREATININE 0.3 mg/dL (0.55-1.3); PHOSPHOROUS 3.5 mg/dL (2.5-4.9)
[2024-01-29 06:53] LABS: BILIRUBIN,TOTAL 0.4 mg/dL (0.2-1); TOT PROT 7.1 g/dl (6.4-8.2)
[2024-01-29] MEDS ORDERED: ACETAMINOPHEN INJECTION 100 ML IVPB ONE (20:56)
[2024-01-29] MEDS: ACETAMINOPHEN 1000 MG/100 ML BAG IVPB ONE (20:59)
[2024-01-29] MEDS ORDERED: MEROPENEM 1 GM in DEXTROSE 5%-WATER 100 ML IVPB SCH (21:00)
[2024-01-29] MEDS: SODIUM CHLORIDE 1,500 ML IV STA (21:06)
[2024-01-29] MEDS ORDERED: PATIENT'S OWN MEDICATION (NON-FORMULARY) (Clonazepam [Clonazepam] 1 MG Tablet) GT SCH (22:00)
[2024-01-29] MEDS ORDERED: clonazePAM 0.5 MG TABLET PO SCH (22:00)
[2024-01-29 22:01] LABS: BASO % 0.3 % (0-2.0); EOS % 1.1 % (0-4.5); HEMATOCRIT 36.7 % (35.4-49); HEMOGLOBIN 11.5 GM/dL (11.7-16.9); LYMPH % 18.9 % (8-40); MCH 29.4 pg (25.7-33.7); MCHC 31.4 g/dl (32.0-35.9); MEAN CELL VOLUME 93.6 fl (80-96); MONO % 7.4 % (3.8-10.2); NEUT % 72.3 % (42.8-82.8); PLATELET COUNT 542 10^3/uL (134-434); RBC 3.92 M/mm3 (4.00-5.60); WHITE BLOOD COUNT 14.9 K/mm3 (4.0-10.0)
[2024-01-29] MEDS: MEROPENEM 1 GM in DEXTROSE 5%-WATER 100 ML IVPB SCH (22:02)
[2024-01-29] MEDS: clonazePAM 0.5 MG TABLET GT SCH (22:03)
[2024-01-29] MEDS: APIXABAN 2.5 MG TABLET PO SCH (22:03)
[2024-01-29 22:14] LABS: POTASSIUM 5.9 mmol/L (3.5-5.1)
[2024-01-29 22:17] LABS: CALCIUM 9.5 mg/dL (8.5-10.1)
[2024-01-29 22:18] LABS: BLOOD UREA NITROGEN 11.5 mg/dL (7-18); MAGNESIUM 2.3 mg/dL (1.8-2.4)
[2024-01-29] MEDS: SODIUM CHLORIDE 1,000 ML IV SCH (22:19)
[2024-01-29 22:21] LABS: CREATININE 0.7 mg/dL (0.55-1.3); PHOSPHOROUS 3.8 mg/dL (2.5-4.9)
[2024-01-29 22:23] LABS: BILIRUBIN,TOTAL 0.3 mg/dL (0.2-1); TOT PROT 8.8 g/dl (6.4-8.2)
[2024-01-29 22:33] LABS: ALBUMIN 3.4 g/dl (3.4-5.0)
[2024-01-29] MEDS: METOPROLOL TARTRATE 5 MG/5 ML VIAL IVPUSH ONE (23:55)
[2024-01-30 07:13] LABS: POTASSIUM 3.8 mmol/L (3.5-5.1)
[2024-01-30 07:17] LABS: BLOOD UREA NITROGEN 6.8 mg/dL (7-18); CALCIUM 8.3 mg/dL (8.5-10.1); MAGNESIUM 2.1 mg/dL (1.8-2.4)
[2024-01-30 07:20] LABS: CREATININE 0.3 mg/dL (0.55-1.3); PHOSPHOROUS 2.9 mg/dL (2.5-4.9)
[2024-01-30 07:22] LABS: BILIRUBIN,TOTAL 0.4 mg/dL (0.2-1)
[2024-01-30 07:24] LABS: BASO % 0.2 % (0-2.0); EOS % 0.2 % (0-4.5); HEMATOCRIT 29.8 % (35.4-49); HEMOGLOBIN 9.7 GM/dL (11.7-16.9); LYMPH % 14.2 % (8-40); MCH 28.3 pg (25.7-33.7); MCHC 32.4 g/dl (32.0-35.9); MEAN CELL VOLUME 87.3 fl (80-96); MONO % 7.4 % (3.8-10.2); PLATELET COUNT 460 10^3/uL (134-434); RBC 3.42 M/mm3 (4.00-5.60); RDW 16.6 % (11.9-15.9); WHITE BLOOD COUNT 11.1 K/mm3 (4.0-10.0)
[2024-01-30 07:27] LABS: ALBUMIN 2.7 g/dl (3.4-5.0); TOT PROT 6.8 g/dl (6.4-8.2)
[2024-01-30] MEDS: carBAMazepine 100 MG/5 ML UNIT-DOSE CUP PO SCH (09:18)
[2024-01-31] MEDS: ACETAMINOPHEN 1000 MG/100 ML BAG IVPB ONE (01:57)
[2024-01-31 06:46] LABS: BASO % 0.9 % (0-2.0); EOS % 5.6 % (0-4.5); HEMATOCRIT 25.8 % (35.4-49); HEMOGLOBIN 8.7 GM/dL (11.7-16.9); LYMPH % 33.9 % (8-40); MCH 29.3 pg (25.7-33.7); MCHC 33.6 g/dl (32.0-35.9); MEAN PLT VOLUME 7.6 fl (7.5-11.1); MONO % 10.5 % (3.8-10.2); NEUT % 49.1 % (42.8-82.8); PLATELET COUNT 470 10^3/uL (134-434); RBC 2.97 M/mm3 (4.00-5.60); RDW 16.6 % (11.9-15.9); WHITE BLOOD COUNT 4.7 K/mm3 (4.0-10.0)
[2024-01-31 06:59] LABS: POTASSIUM 3.8 mmol/L (3.5-5.1)
[2024-01-31 07:04] LABS: CALCIUM 7.8 mg/dL (8.5-10.1)
[2024-01-31 07:05] LABS: ALBUMIN 2.5 g/dl (3.4-5.0); MAGNESIUM 2.1 mg/dL (1.8-2.4)
[2024-01-31 07:07] LABS: BILIRUBIN,TOTAL 0.2 mg/dL (0.2-1); TOT PROT 6.3 g/dl (6.4-8.2)
[2024-01-31 07:08] LABS: CREATININE 0.2 mg/dL (0.55-1.3)
[2024-01-31 07:11] LABS: PHOSPHOROUS 2.4 mg/dL (2.5-4.9)
[2024-01-31] MEDS: NAPH,MB-DB/K PH,MBDB POWDER PACKET PO ONE (10:08)
[2024-01-31] MEDS: POTASSIUM PHOSPHATE 15 MM in DEXTROSE 5%-WATER - 250 ML IVPB ONE (13:51)
[2024-01-31] MEDS ORDERED: BISACODYL 10 MG SUPP.RECT PR PRN (18:58)
[2024-01-31] MEDS ORDERED: NAPHAZOLINE/PHENIRAMINE OPHTHALMIC 15 ML BOTTLE OU PRN (18:58)
[2024-01-31] MEDS: BUDESONIDE 0.5 MG/2 ML INH SUSP VIAL NEB SCH (21:00)
[2024-01-31] MEDS: POLYETHYLENE GLYCOL (HEALTHYLAX) 3350 17 GM PACKET GT SCH (21:27)
[2024-01-31] MEDS: levETIRAcetam 500 MG/5 ML INJECTION VIAL IVPB SCH (21:28)
[2024-01-31] MEDS: GLYCOPYRROLATE 1 MG TABLET GT SCH (21:29)
[2024-01-31] MEDS: BACLOFEN 10 MG TABLET (FP) GT SCH (21:29)
[2024-01-31] MEDS: CHOLECALCIFEROL (VIT D3) 1,000 UNIT (25 MCG) TABLET GT SCH (21:29)
[2024-01-31] MEDS: CHLORHEXIDINE GLUCONATE 4% CLEANSER FOR DECOLONIZATION TP SCH (21:29)
[2024-01-31] MEDS: LEVALBUTEROL HCL 0.31 MG/3 ML VIAL.NEB IH PRN (22:04)
[2024-02-01] MEDS: VANCOMYCIN/WATER 1250 MG 1,250 MG/250 ML BAG IVPB SCH (05:47)
[2024-02-01 06:33] LABS: HEMATOCRIT 28.6 % (35.4-49); HEMOGLOBIN 9.5 GM/dL (11.7-16.9); MCH 29.1 pg (25.7-33.7); MCHC 33.4 g/dl (32.0-35.9); MEAN CELL VOLUME 87.1 fl (80-96); MEAN PLT VOLUME 7.3 fl (7.5-11.1); PLATELET COUNT 623 10^3/uL (134-434); RBC 3.28 M/mm3 (4.00-5.60); RDW 16.2 % (11.9-15.9); WHITE BLOOD COUNT 5.6 K/mm3 (4.0-10.0)
[2024-02-01 07:12] LABS: ALBUMIN 2.8 g/dl (3.4-5.0); BLOOD UREA NITROGEN 9.8 mg/dL (7-18); CALCIUM 8.6 mg/dL (8.5-10.1); MAGNESIUM 2.2 mg/dL (1.8-2.4)
[2024-02-01 07:15] LABS: CREATININE 0.3 mg/dL (0.55-1.3); PHOSPHOROUS 3.6 mg/dL (2.5-4.9)
[2024-02-01 07:16] LABS: TOT PROT 6.8 g/dl (6.4-8.2)
[2024-02-01 07:18] LABS: BILIRUBIN,TOTAL 0.2 mg/dL (0.2-1)
[2024-02-01] MEDS: AMINO ACIDS/PROTEIN HYDROLYS 30 ML LIQUID.PKT GT SCH (08:58)
[2024-02-01] MEDS: SCOPOLAMINE HYDROBROMIDE 1 PATCH PATCH.TD72 TD SCH (09:07)
[2024-02-02 06:55] LABS: HEMATOCRIT 30.9 % (35.4-49); HEMOGLOBIN 10.4 GM/dL (11.7-16.9); MCH 29.1 pg (25.7-33.7); MCHC 33.7 g/dl (32.0-35.9); MEAN CELL VOLUME 86.3 fl (80-96); MEAN PLT VOLUME 7.3 fl (7.5-11.1); PLATELET COUNT 716 10^3/uL (134-434); RBC 3.59 M/mm3 (4.00-5.60); RDW 16.9 % (11.9-15.9); WHITE BLOOD COUNT 6.6 K/mm3 (4.0-10.0)
[2024-02-02 07:25] LABS: POTASSIUM 4.2 mmol/L (3.5-5.1)
[2024-02-02 07:27] LABS: CALCIUM 8.7 mg/dL (8.5-10.1)
[2024-02-02 07:28] LABS: BLOOD UREA NITROGEN 11.5 mg/dL (7-18); MAGNESIUM 2.2 mg/dL (1.8-2.4)
[2024-02-02 07:31] LABS: CREATININE 0.3 mg/dL (0.55-1.3); PHOSPHOROUS 3.8 mg/dL (2.5-4.9)
[2024-02-02 07:32] LABS: BILIRUBIN,TOTAL 0.3 mg/dL (0.2-1); TOT PROT 7.2 g/dl (6.4-8.2)
[2024-02-02] MEDS: ACETYLCYSTEINE 20% 200MG/ML 4 ML VIAL *FOR ORAL / INH USE ONLY NEB SCH (11:42)
[2024-02-02] MEDS: ALBUTEROL SO4 0.083% IH SOL 2.5 MG/3 ML VIAL.NEB. NEB SCH (20:45)
[2024-02-03 06:58] LABS: HEMATOCRIT 33.6 % (35.4-49); HEMOGLOBIN 10.9 GM/dL (11.7-16.9); MCH 28.1 pg (25.7-33.7); MCHC 32.3 g/dl (32.0-35.9); MEAN CELL VOLUME 86.9 fl (80-96); MEAN PLT VOLUME 7.5 fl (7.5-11.1); PLATELET COUNT 773 10^3/uL (134-434); RBC 3.86 M/mm3 (4.00-5.60); RDW 16.7 % (11.9-15.9); WHITE BLOOD COUNT 8.3 K/mm3 (4.0-10.0)
[2024-02-03 07:05] LABS: POTASSIUM 4.7 mmol/L (3.5-5.1)
[2024-02-03 07:07] LABS: BLOOD UREA NITROGEN 10.6 mg/dL (7-18); CALCIUM 9.1 mg/dL (8.5-10.1)
[2024-02-03 07:08] LABS: ALBUMIN 3.2 g/dl (3.4-5.0); MAGNESIUM 2.2 mg/dL (1.8-2.4)
[2024-02-03 07:10] LABS: PHOSPHOROUS 4.4 mg/dL (2.5-4.9)
[2024-02-03 07:11] LABS: CREATININE 0.3 mg/dL (0.55-1.3)
[2024-02-03 07:12] LABS: BILIRUBIN,TOTAL 0.3 mg/dL (0.2-1); TOT PROT 7.8 g/dl (6.4-8.2)
[2024-02-03] MEDS: ACETAMINOPHEN 1000 MG/100 ML BAG IVPB PRN (13:12)
[2024-02-04 07:13] LABS: POTASSIUM 4.5 mmol/L (3.5-5.1)
[2024-02-04 07:15] LABS: CALCIUM 9.3 mg/dL (8.5-10.1)
[2024-02-04 07:16] LABS: ALBUMIN 3.3 g/dl (3.4-5.0); BLOOD UREA NITROGEN 12.1 mg/dL (7-18); MAGNESIUM 2.2 mg/dL (1.8-2.4)
[2024-02-04 07:18] LABS: CREATININE 0.4 mg/dL (0.55-1.3)
[2024-02-04 07:19] LABS: PHOSPHOROUS 3.8 mg/dL (2.5-4.9)
[2024-02-04 07:20] LABS: BILIRUBIN,TOTAL 0.4 mg/dL (0.2-1); TOT PROT 8.1 g/dl (6.4-8.2)
[2024-02-04 08:43] LABS: HEMATOCRIT 35.4 % (35.4-49); HEMOGLOBIN 11.9 GM/dL (11.7-16.9); MCH 28.7 pg (25.7-33.7); MCHC 33.6 g/dl (32.0-35.9); MEAN CELL VOLUME 85.5 fl (80-96); PLATELET COUNT 868 10^3/uL (134-434); RBC 4.14 M/mm3 (4.00-5.60); RDW 16.6 % (11.9-15.9); WHITE BLOOD COUNT 10.8 K/mm3 (4.0-10.0)
[2024-02-04] MEDS: ACETAMINOPHEN 1000 MG/100 ML BAG IVPB PRN (17:02)
[2024-02-04] MEDS: ACETAMINOPHEN 650 MG/20.3 ML ORAL SOLUTION (CUPS) GT SCH (17:52)
[2024-02-04] MEDS: METOPROLOL TARTRATE 25 MG TABLET (FP) GT SCH (21:32)
[2024-02-05 05:55] LABS: HEMATOCRIT 35.6 % (35.4-49); HEMOGLOBIN 11.6 GM/dL (11.7-16.9); MCH 28.3 pg (25.7-33.7); MCHC 32.5 g/dl (32.0-35.9); MEAN CELL VOLUME 86.9 fl (80-96); MEAN PLT VOLUME 6.9 fl (7.5-11.1); PLATELET COUNT 866 10^3/uL (134-434); RBC 4.09 M/mm3 (4.00-5.60); RDW 16.6 % (11.9-15.9); WHITE BLOOD COUNT 6.1 K/mm3 (4.0-10.0)
[2024-02-05 06:13] LABS: POTASSIUM 4.8 mmol/L (3.5-5.1)
[2024-02-05 06:18] LABS: CALCIUM 9.2 mg/dL (8.5-10.1)
[2024-02-05 06:19] LABS: ALBUMIN 3.4 g/dl (3.4-5.0); BLOOD UREA NITROGEN 13.3 mg/dL (7-18); MAGNESIUM 2.2 mg/dL (1.8-2.4)
[2024-02-05 06:22] LABS: CREATININE 0.4 mg/dL (0.55-1.3); PHOSPHOROUS 4.5 mg/dL (2.5-4.9)
[2024-02-05 06:23] LABS: BILIRUBIN,TOTAL 0.4 mg/dL (0.2-1)
[2024-02-05 06:24] LABS: TOT PROT 8.4 g/dl (6.4-8.2)
[2024-02-05] MEDS: ACETYLCYSTEINE 20% 200MG/ML 4 ML VIAL *FOR ORAL / INH USE ONLY NEB SCH (10:05)
[2024-02-07 06:18] VITALS: BP 103/68; PULSE 100; RESP 20; TEMP 98.4
== END 2024-02-07 10:00 | DRG 720 ==
LOC: JER 04:27 → JERBED 07:03 → JICU 09:05 → J2W 01-26 19:20
PROVIDERS: ADMIT Internal Medicine Pulmonary Disease; ATTEND Internal Medicine
PROC: 5A1955Z Respiratory Ventilation, Greater than 96 Consecutive Hours (ICD-10-PCS; principal; 2024-01-17)
PROC: 0BH17EZ Insertion of Endotracheal Airway into Trachea, Via Natural or Artificial Opening (ICD-10-PCS; 2024-01-17)
PROC: 05HM33Z Insertion of Infusion Device into Right Internal Jugular Vein, Percutaneous Approach (ICD-10-PCS; 2024-01-17)
PROC: B543ZZA Ultrasonography of Right Jugular Veins, Guidance (ICD-10-PCS; 2024-01-17)
DX: A41.9 Sepsis, unspecified organism (principal); E87.1 Hypo-osmolality and hyponatremia; I95.9 Hypotension, unspecified; J69.0 Pneumonitis due to inhalation of food and vomit; J96.01 Acute respiratory failure with hypoxia; R53.2 Functional quadriplegia; Z93.1 Gastrostomy status; Q02 Microcephaly; G40.909 Epilepsy, unspecified, not intractable, without status epilepticus; G80.9 Cerebral palsy, unspecified; R00.0 Tachycardia, unspecified; R62.50 Unspecified lack of expected normal physiological development in childhood; R74.01 Elevation of levels of liver transaminase levels; A04.72 Enterocolitis due to Clostridium difficile, not specified as recurrent; R33.9 Retention of urine, unspecified; R31.9 Hematuria, unspecified
CPT/HCPCS: 0241U-QW; 36415; 36600; 71045-TC-FY; 80048; 80053; 81003; 82550; 82803; 82962; 83605; 83735; 84100; 84484; 85025; 85027; 85610; 85730; 87040; 87070; 87086; 87186; 87205; 87324; 87449; 87493; 87635; 87899; 93005; 93010; 93306-TC; 94002; 94640; 99291; G0480; J0131; J0475; J1644

== ENCOUNTER 2024-02-07 16:54 | Inpatient (IN) | payer OTHER ==
[2024-02-07 17:22] VITALS: BMI 24.4
[2024-02-07 18:39] LABS: BASO % 0.5 % (0-2.0); EOS % 0.3 % (0-4.5); HEMATOCRIT 36.9 % (35.4-49); HEMOGLOBIN 12.3 GM/dL (11.7-16.9); LYMPH % 9.4 % (8-40); MCHC 33.2 g/dl (32.0-35.9); MEAN CELL VOLUME 84.4 fl (80-96); MEAN PLT VOLUME 6.8 fl (7.5-11.1); MONO % 9.3 % (3.8-10.2); NEUT % 80.5 % (42.8-82.8); PLATELET COUNT 821 10^3/uL (134-434); RBC 4.37 M/mm3 (4.00-5.60); RDW 16.5 % (11.9-15.9); WHITE BLOOD COUNT 10.4 K/mm3 (4.0-10.0)
[2024-02-07] MEDS: SODIUM CHLORIDE 0.9% 500 ML INFUS.BAG IV ONE (18:43)
[2024-02-07] MEDS ORDERED: PIPERACILLIN/TAZOB 4.5 GM 4.5 GM/100 ML BAG IVPB ONE (18:44)
[2024-02-07 18:46] LABS: INR 1.41 (0.83-1.09)
[2024-02-07] MEDS: PIPERACILLIN/TAZOB 4.5 GM 4.5 GM in DEXTROSE 5%-WATER 100 ML IVPB ONE (18:48)
[2024-02-07 18:49] LABS: ACTIVATED PTT 40.3 SECONDS (25.2-36.5)
[2024-02-07 18:49] LABS: PH,URINE 6.5 (5.0-8.0); URINE APPEARANCE CLEAR; URINE BILIRUBIN NEGATIVE (NEGATIVE); URINE COLOR YELLOW; URINE GLUCOSE (UA) NEGATIVE (NEGATIVE); URINE KETONE NEGATIVE (NEGATIVE); URINE LEUK ESTERASE NEGATIVE (NEGATIVE); URINE NITRITE NEGATIVE (NEGATIVE); URINE PROTEIN NEGATIVE (NEGATIVE); URINE UROBILINOGEN 0.2 mg/dL (0.2-1.0)
[2024-02-07 18:52] LABS: VENOUS BASE EXCESS 2.4 mmol/L (-2-2); VENOUS O2 SATURATION 84.3 % (70-80); VENOUS PCO2 41.2 mmHg (38-52); VENOUS PH 7.432 (7.310-7.410)
[2024-02-07 19:00] LABS: POTASSIUM 3.9 mmol/L (3.5-5.1)
[2024-02-07 19:02] LABS: CALCIUM 9.4 mg/dL (8.5-10.1)
[2024-02-07 19:03] LABS: ALBUMIN 3.4 g/dl (3.4-5.0); BLOOD UREA NITROGEN 19.4 mg/dL (7-18)
[2024-02-07 19:06] LABS: CREATININE 0.6 mg/dL (0.55-1.3)
[2024-02-07 19:07] LABS: BILIRUBIN,TOTAL 0.5 mg/dL (0.2-1); TOT PROT 8.3 g/dl (6.4-8.2)
[2024-02-07] MEDS ORDERED: VANCOMYCIN IVPB ONE (19:22)
[2024-02-07] MEDS ORDERED: [UNRECOGNIZED DRUG - OTHER] IVPB ONE (19:22)
[2024-02-07] MEDS ORDERED: VANCOMYCIN 1 GRAM (PRE-DOCKED) 1,000 MG/250 ML BAG IVPB ONE ×2 (19:22→19:27)
[2024-02-07] MEDS: VANCOMYCIN 1,000 MG in DEXTROSE 5%-WATER - 250 ML IVPB ONE (19:35)
[2024-02-07 22:42] LABS: ARTERIAL BLD GAS O2 SATURATION 94.6 % (95-98); ARTERIAL BLOOD GAS BASE EXCESS -0.5 mmol/L (-2-2); ARTERIAL BLOOD GAS pH 7.456 (7.350-7.450)
[2024-02-07 22:52] LABS: ALLENS TEST POSITIVE
[2024-02-08] MEDS ORDERED: diphenhydrAMINE HCL 12.5 MG/5 ML UNIT-DOSE CUPS GT PRN (00:02)
[2024-02-08] MEDS ORDERED: VITAMINS A AND D TOPICAL OINTMENT TP PRN (00:02)
[2024-02-08] MEDS ORDERED: NAPHAZOLINE/PHENIRAMINE OPHTHALMIC 15 ML BOTTLE OU PRN (00:02)
[2024-02-08] MEDS ORDERED: BACITRACIN ZINC 15 GM TUBE TOPICAL OINTMENT TP PRN (00:02)
[2024-02-08] MEDS ORDERED: BISACODYL 10 MG SUPP.RECT RC PRN (00:02)
[2024-02-08] MEDS ORDERED: ALBUTEROL SO4 0.5 % INH SOLN 2.5 MG/0.5 ML VIAL.NEB. NEB PRN (00:03)
[2024-02-08] MEDS ORDERED: ZINC OXIDE 20% TOPICAL OINTMENT 454 GM JAR TP PRN (00:03)
[2024-02-08] MEDS ORDERED: [UNRECOGNIZED DRUG - OTHER] RC PRN (00:16)
[2024-02-08] MEDS ORDERED: DISPOSABLE RC PRN (00:16)
[2024-02-08] MEDS: SODIUM CHLORIDE 1,000 ML IV STA (00:40)
[2024-02-08] MEDS ORDERED: carBAMazepine 200 MG TABLET ONE (01:27)
[2024-02-08] MEDS ORDERED: levETIRAcetam 500 MG/5 ML INJECTION VIAL IVPB ONE (01:28)
[2024-02-08] MEDS: levETIRAcetam 500 MG/5 ML INJECTION VIAL IVPB ONE (01:34)
[2024-02-08] MEDS: carBAMazepine 100 MG/5 ML UNIT-DOSE CUP GT ONE (01:34)
[2024-02-08] MEDS: levETIRAcetam 500 MG/5 ML ORAL SOLUTION (UNIT-DOSE CUPS) GT ONE (01:35)
[2024-02-08] MEDS ORDERED: clonazePAM 0.5 MG TABLET ONE ×2 (05:22→14:27)
[2024-02-08] MEDS: FLUTICASONE PROP 0.05% 16 GM NASAL SPRAY NS SCH (06:00)
[2024-02-08] MEDS: GLYCOPYRROLATE 1 MG TABLET GT SCH (06:00)
[2024-02-08] MEDS: clonazePAM 0.5 MG TABLET GT SCH (06:00)
[2024-02-08 06:52] LABS: POTASSIUM 4.3 mmol/L (3.5-5.1)
[2024-02-08 06:55] LABS: CALCIUM 8.7 mg/dL (8.5-10.1)
[2024-02-08 06:56] LABS: ALBUMIN 3.4 g/dl (3.4-5.0); BLOOD UREA NITROGEN 16.3 mg/dL (7-18); MAGNESIUM 2.1 mg/dL (1.8-2.4)
[2024-02-08 06:59] LABS: CREATININE 0.4 mg/dL (0.55-1.3); PHOSPHOROUS 3.3 mg/dL (2.5-4.9)
[2024-02-08 07:00] LABS: BILIRUBIN,TOTAL 0.6 mg/dL (0.2-1); TOT PROT 8.2 g/dl (6.4-8.2)
[2024-02-08 08:20] LABS: HEMATOCRIT 34.7 % (35.4-49); HEMOGLOBIN 11.5 GM/dL (11.7-16.9); MCH 27.9 pg (25.7-33.7); MCHC 33.1 g/dl (32.0-35.9); MEAN CELL VOLUME 84.2 fl (80-96); MEAN PLT VOLUME 6.9 fl (7.5-11.1); PLATELET COUNT 660 10^3/uL (134-434); RBC 4.12 M/mm3 (4.00-5.60); RDW 16.5 % (11.9-15.9); WHITE BLOOD COUNT 6.8 K/mm3 (4.0-10.0)
[2024-02-08] MEDS ORDERED: ALBUTEROL SO4 2.5/IPRATROPIUM 0.5 INH SOL 3 ML VIAL.NEB. NEB ONE (09:03)
[2024-02-08] MEDS: ALBUTEROL SO4 2.5/IPRATROPIUM 0.5 INH SOL 3 ML VIAL.NEB. NEB SCH (09:13)
[2024-02-08] MEDS: levETIRAcetam 500 MG/5 ML ORAL SOLUTION (UNIT-DOSE CUPS) GT SCH (09:14)
[2024-02-08] MEDS ORDERED: POLYETHYLENE GLYCOL (HEALTHYLAX) 3350 17 GM PACKET GT SCH (10:00)
[2024-02-08] MEDS ORDERED: [UNRECOGNIZED DRUG - OTHER] TP SCH (10:00)
[2024-02-08] MEDS ORDERED: carBAMazepine 200 MG TABLET PO SCH (10:00)
[2024-02-08] MEDS: BUDESONIDE 0.5 MG/2 ML INH SUSP VIAL NEB SCH (11:40)
[2024-02-08] MEDS: APIXABAN 2.5 MG TABLET GT SCH (11:40)
[2024-02-08] MEDS: carBAMazepine 100 MG/5 ML UNIT-DOSE CUP GT SCH (11:40)
[2024-02-08] MEDS: methylPREDNISolone NA SUCC 40 MG/1 ML VIAL IVPUSH SCH (11:41)
[2024-02-08] MEDS: BACLOFEN 10 MG TABLET (FP) GT SCH (11:41)
[2024-02-08] MEDS: SODIUM CHLORIDE 1 GM TABLET GT SCH (11:41)
[2024-02-08] MEDS: SCOPOLAMINE HYDROBROMIDE 1 PATCH PATCH.TD72 TD SCH (11:58)
[2024-02-08] MEDS: ACETYLCYSTEINE 20% 200MG/ML 4 ML VIAL *FOR ORAL / INH USE ONLY NEB SCH (11:59)
[2024-02-08] MEDS: ALBUTEROL SO4 0.083% IH SOL 2.5 MG/3 ML VIAL.NEB. NEB SCH (12:01)
[2024-02-08] MEDS: ACETYLCYSTEINE 20% 200MG/ML 10 ML VIAL *FOR ORAL / INH USE ONLY NEB SCH (12:02)
[2024-02-08] MEDS ORDERED: methylPREDNISolone NA SUCC 40 MG/1 ML VIAL ONE (12:18)
[2024-02-08] MEDS: VANCOMYCIN/WATER FOR INJ (PEG) 1,000 MG/200 ML BAG IVPB SCH (18:23)
[2024-02-08] MEDS: FAMOTIDINE 20 MG/2.5 ML ORAL LIQUID GT SCH (22:04)
[2024-02-08] MEDS: AMINO ACIDS/PROTEIN HYDROLYS 30 ML LIQUID.PKT GT SCH (22:05)
[2024-02-08] MEDS: CHOLECALCIFEROL (VIT D3) 1,000 UNIT (25 MCG) TABLET GT SCH (22:05)
[2024-02-09 08:11] LABS: BASO % 0.6 % (0-2.0); HEMATOCRIT 32.8 % (35.4-49); HEMOGLOBIN 10.6 GM/dL (11.7-16.9); LYMPH % 7.8 % (8-40); MCH 27.4 pg (25.7-33.7); MCHC 32.4 g/dl (32.0-35.9); MEAN CELL VOLUME 84.6 fl (80-96); MEAN PLT VOLUME 6.9 fl (7.5-11.1); MONO % 2.7 % (3.8-10.2); NEUT % 88.9 % (42.8-82.8); PLATELET COUNT 562 10^3/uL (134-434); RBC 3.88 M/mm3 (4.00-5.60); RDW 16.5 % (11.9-15.9); WHITE BLOOD COUNT 7.2 K/mm3 (4.0-10.0)
[2024-02-09 08:45] LABS: POTASSIUM 3.8 mmol/L (3.5-5.1)
[2024-02-09 08:51] LABS: BLOOD UREA NITROGEN 14.8 mg/dL (7-18); CALCIUM 8.7 mg/dL (8.5-10.1)
[2024-02-09 08:54] LABS: CREATININE 0.4 mg/dL (0.55-1.3)
[2024-02-09 08:56] LABS: BILIRUBIN,TOTAL 0.3 mg/dL (0.2-1); TOT PROT 7.7 g/dl (6.4-8.2)
[2024-02-09] MEDS: LACTOBACILLUS ACIDOPHILUS 1 TABLET GT SCH (10:21)
[2024-02-10] MEDS: methylPREDNISolone NA SUCC 40 MG/1 ML VIAL IVPUSH SCH (09:42)
[2024-02-10 09:59] LABS: BASO % 0.2 % (0-2.0); HEMATOCRIT 32.6 % (35.4-49); HEMOGLOBIN 10.7 GM/dL (11.7-16.9); LYMPH % 11.7 % (8-40); MCH 28.3 pg (25.7-33.7); MCHC 32.8 g/dl (32.0-35.9); MEAN CELL VOLUME 86.3 fl (80-96); MEAN PLT VOLUME 7.2 fl (7.5-11.1); MONO % 13.6 % (3.8-10.2); NEUT % 74.5 % (42.8-82.8); PLATELET COUNT 494 10^3/uL (134-434); RBC 3.78 M/mm3 (4.00-5.60); RDW 16.3 % (11.9-15.9); WHITE BLOOD COUNT 9.2 K/mm3 (4.0-10.0)
[2024-02-10 10:12] LABS: POTASSIUM 3.9 mmol/L (3.5-5.1)
[2024-02-10 10:16] LABS: BLOOD UREA NITROGEN 22.4 mg/dL (7-18); CALCIUM 8.7 mg/dL (8.5-10.1); MAGNESIUM 2.1 mg/dL (1.8-2.4)
[2024-02-10 10:19] LABS: CREATININE 0.4 mg/dL (0.55-1.3)
[2024-02-10 10:21] LABS: BILIRUBIN,TOTAL 0.4 mg/dL (0.2-1); TOT PROT 7.4 g/dl (6.4-8.2)
[2024-02-10] MEDS: ACETAMINOPHEN 1000 MG/100 ML BAG IVPB ONE (22:41)
[2024-02-11 09:15] LABS: BASO % 0.2 % (0-2.0); HEMATOCRIT 31.2 % (35.4-49); HEMOGLOBIN 10.6 GM/dL (11.7-16.9); LYMPH % 8.9 % (8-40); MCH 28.8 pg (25.7-33.7); MEAN CELL VOLUME 84.7 fl (80-96); MEAN PLT VOLUME 7.3 fl (7.5-11.1); MONO % 8.9 % (3.8-10.2); PLATELET COUNT 387 10^3/uL (134-434); RBC 3.69 M/mm3 (4.00-5.60); RDW 16.3 % (11.9-15.9)
[2024-02-11 09:40] LABS: POTASSIUM 3.8 mmol/L (3.5-5.1)
[2024-02-11 09:43] LABS: CALCIUM 8.9 mg/dL (8.5-10.1)
[2024-02-11 09:44] LABS: BLOOD UREA NITROGEN 20.1 mg/dL (7-18); MAGNESIUM 2.3 mg/dL (1.8-2.4)
[2024-02-11 09:47] LABS: CREATININE 0.4 mg/dL (0.55-1.3)
[2024-02-11 09:48] LABS: TOT PROT 7.4 g/dl (6.4-8.2)
[2024-02-11 09:49] LABS: BILIRUBIN,TOTAL 0.4 mg/dL (0.2-1)
[2024-02-11 10:54] VITALS: BP 108/61; PULSE 113; RESP 18; TEMP 99.5
[2024-02-11] MEDS: DOXYCYCLINE MONOHYDRATE 25 MG/5 ML SUSPENSION NGT SCH (11:18)
[2024-02-11] MEDS: methylPREDNISolone NA SUCC 40 MG/1 ML VIAL IVPUSH SCH (11:19)
== END 2024-02-11 11:52 | DRG 720 ==
LOC: JER 16:54 → JERBED 20:23 → J8W 02-08 15:49
PROVIDERS: ADMIT Internal Medicine; ATTEND Nurse Practitioner Acute Care
DX: A41.89 Other specified sepsis (principal); J69.0 Pneumonitis due to inhalation of food and vomit; G80.9 Cerebral palsy, unspecified; I10 Essential (primary) hypertension; J45.909 Unspecified asthma, uncomplicated; R53.2 Functional quadriplegia; Q02 Microcephaly; G40.909 Epilepsy, unspecified, not intractable, without status epilepticus; H47.619 Cortical blindness, unspecified side of brain; N44.00 Torsion of testis, unspecified; R13.19 Other dysphagia; Q67.5 Congenital deformity of spine; F73 Profound intellectual disabilities; N40.0 Benign prostatic hyperplasia without lower urinary tract symptoms; K59.00 Constipation, unspecified; E87.1 Hypo-osmolality and hyponatremia; J96.11 Chronic respiratory failure with hypoxia
CPT/HCPCS: 0241U-QW; 36415; 36600; 71045-TC-FY; 71260-TC; 80053; 81003; 82803; 83605; 83735; 84100; 84484; 85025; 85027; 85610; 85730; 86850; 86900; 86901; 87040; 87086; 87186; 87635; 93005; 93010; 94640; 99285-25; J0131; J0475; Q9967

== ENCOUNTER 2024-06-21 21:53 | Inpatient (IN) | payer OTHER ==
[2024-06-21 22:20] VITALS: BMI 19.5
[2024-06-21 22:52] LABS: BASO % 0.5 % (0-2.0); EOS % 1.5 % (0-4.5); HEMATOCRIT 38.6 % (35.4-49); HEMOGLOBIN 12.8 GM/dL (11.7-16.9); LYMPH % 22.6 % (8-40); MCH 26.6 pg (25.7-33.7); MCHC 33.1 g/dl (32.0-35.9); MEAN CELL VOLUME 80.4 fl (80-96); MEAN PLT VOLUME 7.6 fl (7.5-11.1); MONO % 12.5 % (3.8-10.2); NEUT % 62.9 % (42.8-82.8); PLATELET COUNT 241 10^3/uL (134-434); RBC 4.81 M/mm3 (4.00-5.60); WHITE BLOOD COUNT 6.2 K/mm3 (4.0-10.0)
[2024-06-21 22:57] LABS: VENOUS BASE EXCESS -0.6 mmol/L (-2-2); VENOUS O2 SATURATION 46.6 % (70-80); VENOUS PCO2 50.2 mmHg (38-52); VENOUS PH 7.331 (7.310-7.410)
[2024-06-21 23:00] LABS: INR 1.31 (0.83-1.09)
[2024-06-21 23:03] LABS: ACTIVATED PTT 30.1 SECONDS (25.2-36.5)
[2024-06-21 23:16] LABS: POTASSIUM 4.4 mmol/L (3.5-5.1)
[2024-06-21 23:18] LABS: CALCIUM 9.4 mg/dL (8.5-10.1)
[2024-06-21 23:19] LABS: ALBUMIN 3.5 g/dl (3.4-5.0); BLOOD UREA NITROGEN 13.5 mg/dL (7-18)
[2024-06-21 23:22] LABS: CREATININE 0.5 mg/dL (0.55-1.3)
[2024-06-21 23:24] LABS: TOT PROT 8.4 g/dl (6.4-8.2)
[2024-06-21 23:32] LABS: BILIRUBIN,TOTAL 0.4 mg/dL (0.2-1); LACTIC ACID 3.4 mmol/L (0.4-2.0)
[2024-06-21] MEDS: SODIUM CHLORIDE 0.9% 500 ML INFUS.BAG IV ONE (23:44)
[2024-06-21] MEDS: ACETAMINOPHEN 1000 MG/100 ML BAG IVPB ONE (23:44)
[2024-06-21] MEDS: ACETAMINOPHEN 650 MG/20.3 ML ORAL SOLUTION (CUPS) PO ONE (23:45)
[2024-06-21] MEDS ORDERED: ACETAMINOPHEN 650 MG/20.3 ML ORAL SOLUTION (CUPS) ONE (23:46)
[2024-06-22] MEDS: PIPERACILLIN/TAZOB 4.5 GM 4.5 GM in DEXTROSE 5%-WATER 100 ML IVPB ONE (00:21)
[2024-06-22] MEDS ORDERED: PIPERACILLIN/TAZOB 4.5 GM 4.5 GM/100 ML BAG IVPB ONE (00:24)
[2024-06-22] MEDS ORDERED: VANCOMYCIN 1 GRAM (PRE-DOCKED) 1,000 MG/250 ML BAG IVPB ONE (00:57)
[2024-06-22 01:57] LABS: EPI CELLS 3 /uL (0-25.1); HYALINE CASTS 0 /uL (0-3.1); PH,URINE 7.5 (5.0-8.0); URINE APPEARANCE CLOUDY; URINE BACTERIA 8 /uL (0-1359); URINE BILIRUBIN NEGATIVE (NEGATIVE); URINE COLOR YELLOW; URINE GLUCOSE (UA) NEGATIVE (NEGATIVE); URINE KETONE NEGATIVE (NEGATIVE); URINE LEUK ESTERASE TRACE (NEGATIVE); URINE NITRITE NEGATIVE (NEGATIVE); URINE PROTEIN NEGATIVE (NEGATIVE); URINE RBC 15 /uL (0-23.9); URINE WBC 3 /uL (0-25.8)
[2024-06-22 02:00] LABS: LACTIC ACID 2.8 mmol/L (0.4-2.0)
[2024-06-22] MEDS: VANCOMYCIN 1,000 MG in DEXTROSE 5%-WATER - 250 ML IVPB ONE (02:00)
[2024-06-22] MEDS: clonazePAM 0.5 MG TABLET GT SCH (06:05)
[2024-06-22] MEDS ORDERED: clonazePAM 0.5 MG TABLET ONE ×3 (06:06→21:38)
[2024-06-22 08:25] LABS: HEMOGLOBIN 10.8 GM/dL (11.7-16.9); MCH 26.8 pg (25.7-33.7); MCHC 33.6 g/dl (32.0-35.9); MEAN CELL VOLUME 79.7 fl (80-96); MEAN PLT VOLUME 7.8 fl (7.5-11.1); PLATELET COUNT 233 10^3/uL (134-434); RBC 4.02 M/mm3 (4.00-5.60); RDW 18.7 % (11.9-15.9); WHITE BLOOD COUNT 4.9 K/mm3 (4.0-10.0)
[2024-06-22 08:44] LABS: POTASSIUM 3.8 mmol/L (3.5-5.1)
[2024-06-22 08:48] LABS: ALBUMIN 3.1 g/dl (3.4-5.0); BLOOD UREA NITROGEN 9.8 mg/dL (7-18); CALCIUM 8.6 mg/dL (8.5-10.1); MAGNESIUM 1.9 mg/dL (1.8-2.4)
[2024-06-22 08:52] LABS: CREATININE 0.3 mg/dL (0.55-1.3); PHOSPHOROUS 3.3 mg/dL (2.5-4.9)
[2024-06-22 08:53] LABS: BILIRUBIN,TOTAL 0.4 mg/dL (0.2-1); TOT PROT 7.2 g/dl (6.4-8.2)
[2024-06-22] MEDS ORDERED: BACLOFEN 10 MG TABLET (FP) ONE ×5 (09:14→21:39)
[2024-06-22] MEDS ORDERED: APIXABAN 2.5 MG TABLET ONE ×2 (09:14→21:39)
[2024-06-22] MEDS ORDERED: METOPROLOL TARTRATE 25 MG TABLET (FP) ONE ×2 (09:14→21:38)
[2024-06-22] MEDS: APIXABAN 2.5 MG TABLET GT SCH (09:49)
[2024-06-22] MEDS: METOPROLOL TARTRATE 25 MG TABLET (FP) GT SCH (09:50)
[2024-06-22] MEDS: SODIUM CHLORIDE 1 GM TABLET GT SCH (09:50)
[2024-06-22] MEDS: BACLOFEN 10 MG TABLET (FP) GT SCH (09:51)
[2024-06-22] MEDS: carBAMazepine 100 MG/5 ML UNIT-DOSE CUP GT SCH (09:53)
[2024-06-22] MEDS: D5-1/2NS+10 MEQ KCL - 10 MEQ/1,000 ML INFUS.BAG IV SCH (11:27)
[2024-06-22] MEDS: VANCOMYCIN ORAL SOLUTION 125 MG/2.5 ML GT SCH (20:17)
[2024-06-22] MEDS ORDERED: carBAMazepine 200 MG TABLET ONE (21:39)
[2024-06-23] MEDS ORDERED: clonazePAM 0.5 MG TABLET ONE (05:20)
[2024-06-23 07:16] LABS: BASO % 0.6 % (0-2.0); EOS % 2.2 % (0-4.5); HEMOGLOBIN 10.8 GM/dL (11.7-16.9); LYMPH % 27.7 % (8-40); MCH 27.1 pg (25.7-33.7); MCHC 33.8 g/dl (32.0-35.9); MEAN CELL VOLUME 80.2 fl (80-96); MEAN PLT VOLUME 7.5 fl (7.5-11.1); MONO % 10.6 % (3.8-10.2); NEUT % 58.9 % (42.8-82.8); PLATELET COUNT 209 10^3/uL (134-434); RBC 3.99 M/mm3 (4.00-5.60); RDW 18.5 % (11.9-15.9); WHITE BLOOD COUNT 6.6 K/mm3 (4.0-10.0)
[2024-06-23 07:37] LABS: POTASSIUM 3.6 mmol/L (3.5-5.1)
[2024-06-23 07:40] LABS: CALCIUM 8.1 mg/dL (8.5-10.1)
[2024-06-23 07:44] LABS: CREATININE 0.3 mg/dL (0.55-1.3)
[2024-06-23] MEDS ORDERED: METOPROLOL TARTRATE 25 MG TABLET (FP) ONE (09:22)
[2024-06-23] MEDS ORDERED: APIXABAN 2.5 MG TABLET ONE (09:22)
[2024-06-23] MEDS ORDERED: carBAMazepine 200 MG TABLET ONE (09:23)
[2024-06-23] MEDS: TERAZOSIN HCL 1 MG CAPSULE PO SCH (09:49)
[2024-06-23 11:29] VITALS: BP 109/66; PULSE 70; RESP 20
[2024-06-23 12:11] VITALS: TEMP 95.6
== END 2024-06-23 14:28 | DRG 720 ==
LOC: JER 21:53 → JERBED 06-22 03:38
PROVIDERS: ADMIT Internal Medicine; ATTEND Internal Medicine
DX: A41.9 Sepsis, unspecified organism (principal); J18.9 Pneumonia, unspecified organism; R53.2 Functional quadriplegia; E87.1 Hypo-osmolality and hyponatremia; Q02 Microcephaly; F73 Profound intellectual disabilities; Z93.1 Gastrostomy status; G40.909 Epilepsy, unspecified, not intractable, without status epilepticus; G80.9 Cerebral palsy, unspecified; J45.909 Unspecified asthma, uncomplicated
CPT/HCPCS: 0241U-QW; 36415; 71045-TC-FY; 80048; 80053; 81003; 82803; 83605; 83735; 84100; 84484; 85025; 85027; 85610; 85730; 86850; 86900; 86901; 87040; 87070; 87086; 87186; 87205; 93005; 93010; 99285-25; J0475

== ENCOUNTER 2024-08-09 20:08 | Inpatient (IN) | payer OTHER ==
[2024-08-09] MEDS ORDERED: HEPARIN NA (PORCINE) 5,000 UNITS/ML 1ML VIAL IVPUSH PRN ×3 (20:53→21:06)
[2024-08-09] MEDS ORDERED: HEPARIN NA (PORCINE) 5,000 UNITS/ML 1ML VIAL ONE (21:01)
[2024-08-09] MEDS ORDERED: HEPARIN INFUSION - 25,000 UNITS/500 ML INFUS.BAG IVPB ONE (21:01)
[2024-08-09 21:04] LABS: BASO % 0.3 % (0-2.0); EOS % 3.6 % (0-4.5); HEMATOCRIT 37.7 % (35.4-49); HEMOGLOBIN 12.2 GM/dL (11.7-16.9); LYMPH % 51.6 % (8-40); MCH 26.8 pg (25.7-33.7); MCHC 32.5 g/dl (32.0-35.9); MEAN CELL VOLUME 82.6 fl (80-96); MEAN PLT VOLUME 9.7 fl (7.5-11.1); MONO % 9.9 % (3.8-10.2); NEUT % 34.6 % (42.8-82.8); PLATELET COUNT 98 10^3/uL (134-434); RBC 4.56 M/mm3 (4.00-5.60); RDW 18.7 % (11.9-15.9); WHITE BLOOD COUNT 2.7 K/mm3 (4.0-10.0)
[2024-08-09] MEDS: HEPARIN NA (PORCINE) 5,000 UNITS/ML 1ML VIAL IVPUSH PRN (21:09)
[2024-08-09] MEDS: HEPARIN INFUSION - 25,000 UNITS/500 ML INFUS.BAG IVPB SCH ×2 (21:09)
[2024-08-09 21:12] LABS: VENOUS BASE EXCESS -2.1 mmol/L (-2-2); VENOUS O2 SATURATION 93.6 % (70-80); VENOUS PCO2 41.3 mmHg (38-52); VENOUS PH 7.366 (7.310-7.410)
[2024-08-09 21:17] LABS: INR 1.2 (0.83-1.09); PROTHROMBIN TIME (PATIENT) 13.5 SEC (9.7-13.0)
[2024-08-09 21:19] LABS: ACTIVATED PTT 50.2 SECONDS (25.2-36.5)
[2024-08-09] MEDS ORDERED: CLOPIDOGREL BISULFATE 300 MG TABLET ONE (21:25)
[2024-08-09] MEDS ORDERED: ASPIRIN 325 MG TABLET ONE (21:25)
[2024-08-09] MEDS: ASPIRIN 325 MG TABLET PO ONE (21:28)
[2024-08-09] MEDS: CLOPIDOGREL BISULFATE 300 MG TABLET PO ONE ×2 (21:28→21:44)
[2024-08-09 21:32] LABS: POTASSIUM 4.8 mmol/L (3.5-5.1)
[2024-08-09 21:33] LABS: CALCIUM 9.3 mg/dL (8.5-10.1)
[2024-08-09 21:34] LABS: ALBUMIN 3.4 g/dl (3.4-5.0); BLOOD UREA NITROGEN 14.9 mg/dL (7-18)
[2024-08-09 21:37] LABS: CREATININE 0.4 mg/dL (0.55-1.3)
[2024-08-09 21:39] LABS: BILIRUBIN,TOTAL 0.2 mg/dL (0.2-1)
[2024-08-09] MEDS: ASPIRIN 325 MG TABLET GT ONE (21:44)
[2024-08-10] MEDS ORDERED: PIPERACILLIN/TAZOB 3.375 GM 3.375 GM/50 ML BAG IVPB ONE (00:19)
[2024-08-10] MEDS: PIPERACILLIN/TAZOB 3.375 GM 3.375 GM in DEXTROSE 5%-WATER - 50 ML IVPB ONE (00:28)
[2024-08-10] MEDS ORDERED: VANCOMYCIN 1 GM PREMIX (F) 1 GM/200 ML BAG ONE (01:13)
[2024-08-10] MEDS: VANCOMYCIN 1,000 MG in DEXTROSE 5%-WATER - 250 ML IVPB ONE (01:23)
[2024-08-10] MEDS: SODIUM CHLORIDE FOR INHALATION 3 ML VIAL.NEB IH ONE (02:19)
[2024-08-10] MEDS ORDERED: ACETAMINOPHEN INJECTION 100 ML ONE (03:15)
[2024-08-10] MEDS: ACETAMINOPHEN 1000 MG/100 ML BAG IVPB ONE (03:30)
[2024-08-10 04:24] LABS: PH,URINE 7.5 (5.0-8.0); URINE APPEARANCE CLEAR; URINE BILIRUBIN NEGATIVE (NEGATIVE); URINE COLOR YELLOW; URINE GLUCOSE (UA) NEGATIVE (NEGATIVE); URINE KETONE NEGATIVE (NEGATIVE); URINE LEUK ESTERASE NEGATIVE (NEGATIVE); URINE NITRITE NEGATIVE (NEGATIVE); URINE PROTEIN NEGATIVE (NEGATIVE); URINE UROBILINOGEN 0.2 mg/dL (0.2-1.0)
[2024-08-10 04:33] LABS: URINE RBC 195.4 /uL (0-23.9)
[2024-08-10 04:34] LABS: EPI CELLS 2.3 /uL (0-25.1); URINE BACTERIA 3.7 /uL (0-1359); URINE WBC 3.4 /uL (0-25.8)
[2024-08-10] MEDS ORDERED: clonazePAM 0.5 MG TABLET PO ONE (04:59)
[2024-08-10] MEDS ORDERED: methylPREDNISolone NA SUCC 40 MG/1 ML VIAL ONE (05:44)
[2024-08-10] MEDS ORDERED: PIPERACILLIN/TAZOB 4.5 GM 4.5 GM/100 ML BAG IVPB ONE ×2 (05:44→06:01)
[2024-08-10] MEDS ORDERED: ACETAMINOPHEN 325 MG TABLET (FP) PO PRN (06:35)
[2024-08-10] MEDS ORDERED: ZINC OXIDE 20% TOPICAL OINTMENT 30 GM TUBE TP PRN (06:35)
[2024-08-10] MEDS ORDERED: BACITRACIN ZINC 15 GM TUBE TOPICAL OINTMENT TP PRN (06:35)
[2024-08-10 07:23] LABS: ALBUMIN 3.4 g/dl (3.4-5.0); BILIRUBIN,TOTAL 0.4 mg/dL (0.2-1); BLOOD UREA NITROGEN 20.6 mg/dL (7-18); CALCIUM 8.6 mg/dL (8.5-10.1); CREATININE 0.5 mg/dL (0.55-1.3); MAGNESIUM 1.8 mg/dL (1.8-2.4); PHOSPHOROUS 3.6 mg/dL (2.5-4.9); POTASSIUM 4.6 mmol/L (3.5-5.1); TOT PROT 7.5 g/dl (6.4-8.2)
[2024-08-10] MEDS: ALBUTEROL SO4 2.5/IPRATROPIUM 0.5 INH SOL 3 ML VIAL.NEB. NEB SCH (07:42)
[2024-08-10] MEDS: methylPREDNISolone NA SUCC 125 MG/2 ML VIAL IVPUSH ONE (10:46)
[2024-08-10] MEDS: PIPERACILLIN/TAZOB 4.5 GM 4.5 GM in DEXTROSE 5%-WATER 100 ML IVPB SCH ×2 (10:49→17:09)
[2024-08-10] MEDS: levETIRAcetam 500 MG/5 ML ORAL SOLUTION (UNIT-DOSE CUPS) GT SCH (10:49)
[2024-08-10] MEDS: LACTATED RINGERS SOLUTION 1,000 ML/1,000 ML INFUS.BAG IV SCH (10:49)
[2024-08-10] MEDS: BACLOFEN 10 MG TABLET (FP) GT SCH (10:50)
[2024-08-10] MEDS: carBAMazepine 200 MG/10 ML UNIT-DOSE CUP GT SCH (10:52)
[2024-08-10] MEDS: FAMOTIDINE 20 MG/2.5 ML ORAL LIQUID GT SCH (10:52)
[2024-08-10] MEDS: TAMSULOSIN HCL 0.4 MG CAP PO SCH (11:13)
[2024-08-10] MEDS: methylPREDNISolone NA SUCC 40 MG/1 ML VIAL IVPUSH SCH (11:33)
[2024-08-10] MEDS ORDERED: VANCOMYCIN 1,000 MG in DEXTROSE 5%-WATER - 250 ML IVPB SCH (13:00)
[2024-08-10] MEDS: GLYCOPYRROLATE 1 MG TABLET GT SCH (14:26)
[2024-08-10] MEDS: SODIUM CHLORIDE 1 GM TABLET GT SCH (14:26)
[2024-08-10] MEDS: clonazePAM 0.5 MG TABLET GT SCH (14:27)
[2024-08-10] MEDS: ASPIRIN 81 MG CHEWABLE TABLETS PO SCH (14:27)
[2024-08-10] MEDS: PIPERACILLIN/TAZOB 2.25 GM 2.25 GM/50 ML BAG IVPB SCH (17:43)
[2024-08-10] MEDS: ASPIRIN 81 MG CHEWABLE TABLETS GT ONE (17:44)
[2024-08-11] MEDS: ACETAMINOPHEN 650 MG/20.3 ML ORAL SOLUTION (CUPS) GT PRN (05:47)
[2024-08-11 07:59] LABS: HEMATOCRIT 30.9 % (35.4-49); HEMOGLOBIN 10.2 GM/dL (11.7-16.9); MCH 27.4 pg (25.7-33.7); MCHC 33.1 g/dl (32.0-35.9); MEAN CELL VOLUME 82.9 fl (80-96); MEAN PLT VOLUME 9.5 fl (7.5-11.1); PLATELET COUNT 114 10^3/uL (134-434); RBC 3.72 M/mm3 (4.00-5.60); WHITE BLOOD COUNT 3.6 K/mm3 (4.0-10.0)
[2024-08-11 08:27] LABS: POTASSIUM 3.7 mmol/L (3.5-5.1)
[2024-08-11 08:35] LABS: CREATININE 0.5 mg/dL (0.55-1.3)
[2024-08-11 08:36] LABS: ALBUMIN 2.9 g/dl (3.4-5.0); BLOOD UREA NITROGEN 12.6 mg/dL (7-18); CALCIUM 8.5 mg/dL (8.5-10.1)
[2024-08-11 08:37] LABS: BILIRUBIN,TOTAL 0.2 mg/dL (0.2-1); TOT PROT 6.6 g/dl (6.4-8.2)
[2024-08-11] MEDS: SODIUM CHLORIDE 1,000 ML IV SCH (14:53)
[2024-08-11] MEDS: SCOPOLAMINE HYDROBROMIDE 1 PATCH PATCH.TD72 TD SCH (14:55)
[2024-08-11 15:35] LABS: HEMATOCRIT 31.1 % (35.4-49); HEMOGLOBIN 10.4 GM/dL (11.7-16.9); MCH 27.4 pg (25.7-33.7); MCHC 33.4 g/dl (32.0-35.9); PLATELET COUNT 103 10^3/uL (134-434); WHITE BLOOD COUNT 3.5 K/mm3 (4.0-10.0)
[2024-08-11] MEDS: ASPIRIN 81 MG CHEWABLE TABLETS GT SCH (17:02)
[2024-08-11] MEDS: SODIUM CHLORIDE 1 GM TABLET GT SCH (21:26)
[2024-08-12] MEDS: carBAMazepine 100 MG/5 ML UNIT-DOSE CUP GT SCH (10:36)
[2024-08-12] MEDS: PIPERACILLIN/TAZOB 3.375 GM 50 ML IVPB SCH (21:43)
[2024-08-12] MEDS ORDERED: ACETAMINOPHEN 1000 MG/100 ML BAG IVPB PRN (22:44)
[2024-08-12] MEDS: SODIUM CHLORIDE 500 ML IV STA (22:57)
[2024-08-13] MEDS: METOPROLOL TARTRATE 5 MG/5 ML VIAL IVPUSH ONE (06:05)
[2024-08-13 07:13] LABS: BASO % 0.1 % (0-2.0); EOS % 0.1 % (0-4.5); HEMATOCRIT 29.5 % (35.4-49); HEMOGLOBIN 9.5 GM/dL (11.7-16.9); LYMPH % 39.2 % (8-40); MCH 26.8 pg (25.7-33.7); MCHC 32.3 g/dl (32.0-35.9); MEAN CELL VOLUME 83.1 fl (80-96); MEAN PLT VOLUME 9.1 fl (7.5-11.1); NEUT % 42.6 % (42.8-82.8); PLATELET COUNT 133 10^3/uL (134-434); RBC 3.55 M/mm3 (4.00-5.60); RDW 19.1 % (11.9-15.9); WHITE BLOOD COUNT 6.1 K/mm3 (4.0-10.0)
[2024-08-13 07:31] LABS: POTASSIUM 3.7 mmol/L (3.5-5.1)
[2024-08-13 07:39] LABS: BLOOD UREA NITROGEN 11.1 mg/dL (7-18); CALCIUM 8.2 mg/dL (8.5-10.1)
[2024-08-13 07:42] LABS: CREATININE 0.4 mg/dL (0.55-1.3)
[2024-08-13 07:43] LABS: PHOSPHOROUS 3.4 mg/dL (2.5-4.9)
[2024-08-13 07:44] LABS: BILIRUBIN,TOTAL 0.3 mg/dL (0.2-1); TOT PROT 6.7 g/dl (6.4-8.2)
[2024-08-13] MEDS ORDERED: ACETAMINOPHEN 1000 MG/100 ML BAG IVPB PRN (11:09)
[2024-08-13] MEDS ORDERED: PANTOPRAZOLE SODIUM 40 MG/100 ML BAG IVPB SCH (14:00)
[2024-08-13] MEDS: PANTOPRAZOLE SODIUM 40 MG VIAL IVPUSH SCH (16:02)
[2024-08-14 06:55] LABS: HEMATOCRIT 30.5 % (35.4-49); MCH 27.4 pg (25.7-33.7); MEAN CELL VOLUME 83.1 fl (80-96); MEAN PLT VOLUME 8.7 fl (7.5-11.1); PLATELET COUNT 155 10^3/uL (134-434); RBC 3.67 M/mm3 (4.00-5.60); RDW 19.1 % (11.9-15.9); WHITE BLOOD COUNT 9.7 K/mm3 (4.0-10.0)
[2024-08-14 07:10] LABS: BLOOD UREA NITROGEN 11.3 mg/dL (7-18); CALCIUM 8.6 mg/dL (8.5-10.1); MAGNESIUM 2.1 mg/dL (1.8-2.4)
[2024-08-14 07:13] LABS: CREATININE 0.4 mg/dL (0.55-1.3)
[2024-08-14 07:14] LABS: PHOSPHOROUS 3.3 mg/dL (2.5-4.9)
[2024-08-14 07:15] LABS: BILIRUBIN,TOTAL 0.4 mg/dL (0.2-1); TOT PROT 6.9 g/dl (6.4-8.2)
[2024-08-14 07:20] LABS: INR 1.14 (0.83-1.09); PROTHROMBIN TIME (PATIENT) 12.8 SEC (9.7-13.0)
[2024-08-14] MEDS: methylPREDNISolone NA SUCC 40 MG/1 ML VIAL IVPUSH SCH (21:30)
[2024-08-14] MEDS: APIXABAN 2.5 MG TABLET PO SCH (21:31)
[2024-08-14] MEDS: ACETAMINOPHEN 650 MG/20.3 ML ORAL SOLUTION (CUPS) GT ONE (23:40)
[2024-08-15] MEDS: ALBUTEROL SO4 2.5/IPRATROPIUM 0.5 INH SOL 3 ML VIAL.NEB. NEB PRN (01:07)
[2024-08-15 07:33] LABS: HEMATOCRIT 30.1 % (35.4-49); HEMOGLOBIN 10.2 GM/dL (11.7-16.9); MCH 27.9 pg (25.7-33.7); MCHC 33.7 g/dl (32.0-35.9); MEAN CELL VOLUME 82.7 fl (80-96); MEAN PLT VOLUME 8.8 fl (7.5-11.1); PLATELET COUNT 186 10^3/uL (134-434); RBC 3.64 M/mm3 (4.00-5.60); WHITE BLOOD COUNT 7.6 K/mm3 (4.0-10.0)
[2024-08-15 08:01] LABS: POTASSIUM 3.9 mmol/L (3.5-5.1)
[2024-08-15 08:04] LABS: BLOOD UREA NITROGEN 10.9 mg/dL (7-18); CALCIUM 8.2 mg/dL (8.5-10.1)
[2024-08-15 08:05] LABS: MAGNESIUM 2.1 mg/dL (1.8-2.4)
[2024-08-15 08:07] LABS: CREATININE 0.3 mg/dL (0.55-1.3); PHOSPHOROUS 3.8 mg/dL (2.5-4.9)
[2024-08-15 08:09] LABS: BILIRUBIN,TOTAL 0.4 mg/dL (0.2-1); TOT PROT 6.7 g/dl (6.4-8.2)
[2024-08-15 15:34] VITALS: BMI 19.5
[2024-08-15] MEDS: APIXABAN 2.5 MG TABLET GT SCH (21:16)
[2024-08-16 07:10] LABS: HEMATOCRIT 31.4 % (35.4-49); HEMOGLOBIN 10.3 GM/dL (11.7-16.9); MCH 27.5 pg (25.7-33.7); MCHC 32.9 g/dl (32.0-35.9); MEAN CELL VOLUME 83.6 fl (80-96); MEAN PLT VOLUME 8.3 fl (7.5-11.1); PLATELET COUNT 205 10^3/uL (134-434); RBC 3.75 M/mm3 (4.00-5.60); RDW 18.7 % (11.9-15.9); WHITE BLOOD COUNT 8.1 K/mm3 (4.0-10.0)
[2024-08-16 07:19] LABS: POTASSIUM 4.1 mmol/L (3.5-5.1)
[2024-08-16 07:27] LABS: BLOOD UREA NITROGEN 13.2 mg/dL (7-18); CALCIUM 8.3 mg/dL (8.5-10.1)
[2024-08-16 07:28] LABS: MAGNESIUM 2.1 mg/dL (1.8-2.4)
[2024-08-16 07:31] LABS: CREATININE 0.3 mg/dL (0.55-1.3); PHOSPHOROUS 4.1 mg/dL (2.5-4.9)
[2024-08-16 07:32] LABS: BILIRUBIN,TOTAL 0.5 mg/dL (0.2-1); TOT PROT 6.5 g/dl (6.4-8.2)
[2024-08-16 07:53] LABS: INR 1.14 (0.83-1.09); PROTHROMBIN TIME (PATIENT) 13.1 SEC (9.7-13.0)
[2024-08-16] MEDS: NAPHAZOLINE/PHENIRAMINE OPHTHALMIC 15 ML BOTTLE OU PRN (10:18)
[2024-08-16] MEDS ORDERED: ZINC OXIDE 20% TOPICAL OINTMENT 30 GM TUBE TP PRN (11:58)
[2024-08-16] MEDS: TUBE FEED DECLOGGING SOLUTION 12,000 UNITS GT ONE (13:40)
[2024-08-17 00:18] VITALS: RESP 20
[2024-08-17 09:20] VITALS: BP 114/71; PULSE 60; TEMP 97.4
== END 2024-08-17 11:59 | DRG 720 ==
LOC: JER 20:08 → JERBED 08-10 00:03 → J2W 08-10 06:52 → UNDODISIN 08-12 14:10
PROVIDERS: ADMIT Internal Medicine; ATTEND Internal Medicine
DX: A41.9 Sepsis, unspecified organism (principal); J69.0 Pneumonitis due to inhalation of food and vomit; J96.01 Acute respiratory failure with hypoxia; G82.50 Quadriplegia, unspecified; E87.1 Hypo-osmolality and hyponatremia; G40.909 Epilepsy, unspecified, not intractable, without status epilepticus; I10 Essential (primary) hypertension; N40.0 Benign prostatic hyperplasia without lower urinary tract symptoms; F79 Unspecified intellectual disabilities
CPT/HCPCS: 0241U-QW; 36415; 71045-TC-FY; 71250-TC; 80053; 80061; 81003; 82272; 82803; 83605; 83735; 84100; 84443; 84484; 85025; 85027; 85610; 85730; 86850; 86900; 86901; 87040; 87070; 87086; 87186; 87205; 87481; 87635; 93005; 93010; 94640; 99291; J0131; J0475; J1644

== ENCOUNTER 2024-10-14 13:14 | Inpatient (IN) | payer OTHER ==
[2024-10-14] MEDS: SODIUM CHLORIDE 0.9% 1000 ML INFUS.BAG IV STA (14:51)
[2024-10-14] MEDS: PIPERACILLIN/TAZOB 4.5 GM 4.5 GM/100 ML BAG IVPB ONE (14:51)
[2024-10-14 14:53] LABS: VENOUS BASE EXCESS 0.2 mmol/L (-2-2); VENOUS O2 SATURATION 89.7 % (70-80); VENOUS PCO2 41.3 mmHg (38-52); VENOUS PH 7.401 (7.310-7.410)
[2024-10-14] MEDS ORDERED: VANCOMYCIN 1 GM PREMIX (F) 1 GM/200 ML BAG ONE (14:54)
[2024-10-14 14:56] LABS: BASO % 0.2 % (0-2.0); EOS % 0.5 % (0-4.5); HEMATOCRIT 36.7 % (35.4-49); HEMOGLOBIN 11.8 GM/dL (11.7-16.9); LYMPH % 31.8 % (8-40); MCH 27.9 pg (25.7-33.7); MCHC 32.1 g/dl (32.0-35.9); MEAN CELL VOLUME 86.8 fl (80-96); MEAN PLT VOLUME 8.7 fl (7.5-11.1); MONO % 10.6 % (3.8-10.2); NEUT % 56.9 % (42.8-82.8); PLATELET COUNT 240 10^3/uL (134-434); RBC 4.23 M/mm3 (4.00-5.60); RDW 18.9 % (11.9-15.9); WHITE BLOOD COUNT 4.8 K/mm3 (4.0-10.0)
[2024-10-14 15:16] LABS: POTASSIUM 5.1 mmol/L (3.5-5.1)
[2024-10-14 15:18] LABS: ALBUMIN 3.6 g/dl (3.4-5.0)
[2024-10-14 15:19] LABS: BLOOD UREA NITROGEN 19.1 mg/dL (7-18)
[2024-10-14] MEDS: VANCOMYCIN 1 GM PREMIX (F) 1 GM/200 ML BAG IVPB ONE (15:20)
[2024-10-14 15:22] LABS: CALCIUM 9.6 mg/dL (8.5-10.1); CREATININE 0.4 mg/dL (0.55-1.3)
[2024-10-14 15:23] LABS: BILIRUBIN,TOTAL 0.3 mg/dL (0.2-1); TOT PROT 8.1 g/dl (6.4-8.2)
[2024-10-14] MEDS ORDERED: ACETYLCYSTEINE 20% 200MG/ML 4 ML VIAL *FOR ORAL / INH USE ONLY ONE (16:19)
[2024-10-14] MEDS: ACETYLCYSTEINE 20% 200MG/ML 30 ML VIAL *FOR ORAL / INH USE ONLY NEB ONE (16:30)
[2024-10-14] MEDS ORDERED: LORazepam 2 MG/ML SDV VIAL ONE (17:44)
[2024-10-14] MEDS: LORazepam 2 MG/ML SDV VIAL IVPUSH ONE (18:00)
[2024-10-14] MEDS ORDERED: levETIRAcetam 500 MG/5 ML INJECTION VIAL IVPB ONE (18:19)
[2024-10-14 18:26] LABS: PH,URINE 7.5 (5.0-8.0); URINE APPEARANCE CLEAR; URINE BILIRUBIN NEGATIVE (NEGATIVE); URINE COLOR YELLOW; URINE GLUCOSE (UA) NEGATIVE (NEGATIVE); URINE KETONE NEGATIVE (NEGATIVE); URINE LEUK ESTERASE NEGATIVE (NEGATIVE); URINE NITRITE NEGATIVE (NEGATIVE); URINE PROTEIN NEGATIVE (NEGATIVE); URINE UROBILINOGEN 0.2 mg/dL (0.2-1.0)
[2024-10-14] MEDS: levETIRAcetam 500 MG/5 ML INJECTION VIAL IVPB ONE (18:27)
[2024-10-14] MEDS: DEXTROSE 5% IVPB ONE (19:29)
[2024-10-14] MEDS: PIPERACILLIN/TAZOB 4.5 GM 4.5 GM in DEXTROSE 5%-WATER - 100 ML IVPB ONE (19:29)
[2024-10-14] MEDS: VANCOMYCIN IVPB ONE (19:29)
[2024-10-14] MEDS: WATER IVPB ONE (19:29)
[2024-10-14] MEDS: VANCOMYCIN 1,000 MG in DEXTROSE 5%-WATER - 250 ML IVPB ONE (19:30)
[2024-10-14] MEDS: SCOPOLAMINE HYDROBROMIDE 1 PATCH PATCH.TD72 TD SCH (20:30)
[2024-10-14] MEDS ORDERED: PANTOPRAZOLE SODIUM 40 MG VIAL ONE (20:49)
[2024-10-14] MEDS: BUDESONIDE 0.5 MG/2 ML INH SUSP VIAL NEB SCH (20:50)
[2024-10-14] MEDS: PANTOPRAZOLE SODIUM 40 MG VIAL IVPUSH SCH (20:50)
[2024-10-14] MEDS: clonazePAM 0.5 MG TABLET GT SCH (21:58)
[2024-10-14] MEDS: BACLOFEN 10 MG TABLET (FP) PO SCH (21:58)
[2024-10-14] MEDS: levETIRAcetam 500 MG/5 ML ORAL SOLUTION (UNIT-DOSE CUPS) GT SCH (21:58)
[2024-10-14] MEDS: APIXABAN 2.5 MG TABLET GT SCH (21:58)
[2024-10-14] MEDS: IPRATROPIUM BR 0.02% 0.5 MG/2.5 ML VIAL.NEB. NEB PRN (22:20)
[2024-10-14] MEDS: CHLORHEXIDINE GLUCONATE 4% CLEANSER FOR DECOLONIZATION TP SCH (22:59)
[2024-10-14] MEDS: MUPIROCIN 2% TOPICAL OINTMENT FOR DECOLONIZATION NS SCH (23:10)
[2024-10-14] MEDS: carBAMazepine 100 MG/5 ML UNIT-DOSE CUP GT SCH (23:14)
[2024-10-15] MEDS: PIPERACILLIN/TAZOB 3.375 GM 50 ML IVPB SCH ×2 (05:00→10:00)
[2024-10-15] MEDS: guaiFENesin 200 MG/10 ML 10 ML UNIT-DOSE CUPS GT PRN (05:00)
[2024-10-15 07:07] LABS: BASO % 0.2 % (0-2.0); EOS % 0.5 % (0-4.5); HEMATOCRIT 27.6 % (35.4-49); HEMOGLOBIN 9.1 GM/dL (11.7-16.9); LYMPH % 21.9 % (8-40); MCH 28.2 pg (25.7-33.7); MCHC 32.9 g/dl (32.0-35.9); MEAN CELL VOLUME 85.8 fl (80-96); MEAN PLT VOLUME 8.6 fl (7.5-11.1); MONO % 11.6 % (3.8-10.2); NEUT % 65.8 % (42.8-82.8); PLATELET COUNT 180 10^3/uL (134-434); RBC 3.22 M/mm3 (4.00-5.60); RDW 18.8 % (11.9-15.9); WHITE BLOOD COUNT 6.3 K/mm3 (4.0-10.0)
[2024-10-15 07:12] LABS: INR 1.34 (0.83-1.09); PROTHROMBIN TIME (PATIENT) 14.7 SEC (9.7-13.0)
[2024-10-15 07:21] LABS: POTASSIUM 4.1 mmol/L (3.5-5.1)
[2024-10-15 07:28] LABS: BLOOD UREA NITROGEN 10.4 mg/dL (7-18); MAGNESIUM 1.9 mg/dL (1.8-2.4)
[2024-10-15 07:30] LABS: CREATININE 0.3 mg/dL (0.55-1.3); PHOSPHOROUS 3.1 mg/dL (2.5-4.9)
[2024-10-15 07:32] LABS: BILIRUBIN,TOTAL 0.5 mg/dL (0.2-1); TOT PROT 6.2 g/dl (6.4-8.2)
[2024-10-15 07:34] LABS: ALBUMIN 2.7 g/dl (3.4-5.0); CALCIUM 8.1 mg/dL (8.5-10.1)
[2024-10-15] MEDS: ENOXAPARIN NA (PORCINE) 40 MG/0.4 ML DISP.SYRIN SQ SCH (09:46)
[2024-10-15] MEDS: TERAZOSIN HCL 1 MG CAPSULE GT SCH (09:47)
[2024-10-15] MEDS ORDERED: [UNRECOGNIZED DRUG - MIXTURE] IVPB SCH (10:00)
[2024-10-15] MEDS: LACTATED RINGERS SOLUTION 1000 ML INFUS.BAG IV ONE (11:00)
[2024-10-15] MEDS: VANCOMYCIN ORAL SOLUTION 125 MG/2.5 ML PEG SCH (11:52)
[2024-10-16 08:09] LABS: POTASSIUM 3.7 mmol/L (3.5-5.1)
[2024-10-16 08:13] LABS: ALBUMIN 2.8 g/dl (3.4-5.0); BLOOD UREA NITROGEN 8.1 mg/dL (7-18); CALCIUM 8.6 mg/dL (8.5-10.1)
[2024-10-16 08:16] LABS: BILIRUBIN,TOTAL 0.4 mg/dL (0.2-1); CREATININE 0.3 mg/dL (0.55-1.3); PHOSPHOROUS 3.5 mg/dL (2.5-4.9)
[2024-10-16 08:17] LABS: TOT PROT 6.4 g/dl (6.4-8.2)
[2024-10-16 08:18] LABS: HEMOGLOBIN 9.2 GM/dL (11.7-16.9); MCH 28.6 pg (25.7-33.7); MCHC 32.8 g/dl (32.0-35.9); MEAN CELL VOLUME 87.3 fl (80-96); MEAN PLT VOLUME 9.2 fl (7.5-11.1); PLATELET COUNT 176 10^3/uL (134-434); RBC 3.21 M/mm3 (4.00-5.60); RDW 18.8 % (11.9-15.9)
[2024-10-16 10:19] LABS: ANISOCYTOSIS 0; MACROCYTOSIS 0
[2024-10-16] MEDS: methylPREDNISolone NA SUCC 40 MG/1 ML VIAL IVPUSH ONE (10:43)
[2024-10-16] MEDS: IPRATROPIUM BR 0.02% 0.5 MG/2.5 ML VIAL.NEB. NEB ONE (10:50)
[2024-10-16] MEDS ORDERED: LORazepam 2 MG/ML SDV VIAL IVPUSH PRN ×2 (15:31→15:35)
[2024-10-17 07:41] LABS: HEMATOCRIT 30.3 % (35.4-49); HEMOGLOBIN 10.2 GM/dL (11.7-16.9); MCH 28.9 pg (25.7-33.7); MCHC 33.7 g/dl (32.0-35.9); MEAN CELL VOLUME 85.7 fl (80-96); MEAN PLT VOLUME 8.4 fl (7.5-11.1); PLATELET COUNT 188 10^3/uL (134-434); RBC 3.53 M/mm3 (4.00-5.60); WHITE BLOOD COUNT 6.1 K/mm3 (4.0-10.0)
[2024-10-17] MEDS ORDERED: methylPREDNISolone NA SUCC 40 MG/1 ML VIAL IVPUSH SCH (08:00)
[2024-10-17 08:05] LABS: POTASSIUM 3.7 mmol/L (3.5-5.1)
[2024-10-17 08:30] LABS: CALCIUM 8.8 mg/dL (8.5-10.1)
[2024-10-17 08:31] LABS: ALBUMIN 3.2 g/dl (3.4-5.0); MAGNESIUM 2.1 mg/dL (1.8-2.4)
[2024-10-17 08:33] LABS: CREATININE 0.4 mg/dL (0.55-1.3); PHOSPHOROUS 3.8 mg/dL (2.5-4.9)
[2024-10-17 08:36] LABS: BILIRUBIN,TOTAL 0.4 mg/dL (0.2-1)
[2024-10-17] MEDS: methylPREDNISolone NA SUCC 40 MG/1 ML VIAL IVPUSH SCH (10:22)
[2024-10-17 15:21] VITALS: BMI 18.8
[2024-10-18 06:58] LABS: BASO % 0.4 % (0-2.0); EOS % 0.7 % (0-4.5); HEMATOCRIT 31.9 % (35.4-49); HEMOGLOBIN 10.3 GM/dL (11.7-16.9); LYMPH % 30.6 % (8-40); MCH 28.4 pg (25.7-33.7); MCHC 32.2 g/dl (32.0-35.9); MEAN CELL VOLUME 88.2 fl (80-96); MEAN PLT VOLUME 8.4 fl (7.5-11.1); MONO % 12.3 % (3.8-10.2); PLATELET COUNT 198 10^3/uL (134-434); RBC 3.62 M/mm3 (4.00-5.60); RDW 18.9 % (11.9-15.9); WHITE BLOOD COUNT 8.5 K/mm3 (4.0-10.0)
[2024-10-18 07:19] LABS: POTASSIUM 3.7 mmol/L (3.5-5.1)
[2024-10-18 07:26] LABS: CALCIUM 8.8 mg/dL (8.5-10.1)
[2024-10-18 07:28] LABS: BLOOD UREA NITROGEN 16.6 mg/dL (7-18)
[2024-10-18 07:31] LABS: CREATININE 0.4 mg/dL (0.55-1.3); PHOSPHOROUS 4.4 mg/dL (2.5-4.9)
[2024-10-18] MEDS: ALBUTEROL SO4 2.5/IPRATROPIUM 0.5 INH SOL 3 ML VIAL.NEB. NEB PRN (09:45)
[2024-10-19 06:36] LABS: BASO % 0.9 % (0-2.0); HEMATOCRIT 29.9 % (35.4-49); HEMOGLOBIN 9.7 GM/dL (11.7-16.9); LYMPH % 43.7 % (8-40); MCH 28.6 pg (25.7-33.7); MCHC 32.5 g/dl (32.0-35.9); MEAN CELL VOLUME 88.1 fl (80-96); MEAN PLT VOLUME 8.4 fl (7.5-11.1); MONO % 13.3 % (3.8-10.2); NEUT % 41.1 % (42.8-82.8); PLATELET COUNT 183 10^3/uL (134-434); RBC 3.39 M/mm3 (4.00-5.60); RDW 18.7 % (11.9-15.9); WHITE BLOOD COUNT 5.5 K/mm3 (4.0-10.0)
[2024-10-19 06:48] LABS: POTASSIUM 3.5 mmol/L (3.5-5.1)
[2024-10-19 06:52] LABS: BLOOD UREA NITROGEN 13.2 mg/dL (7-18); CALCIUM 8.4 mg/dL (8.5-10.1)
[2024-10-19 06:56] LABS: CREATININE 0.4 mg/dL (0.55-1.3)
[2024-10-19] MEDS: MAGNESIUM HYDROX 2400MG/30ML ORAL SUSPENSION 30 ML CUP PO PRN (17:30)
[2024-10-20 06:53] LABS: BASO % 0.3 % (0-2.0); EOS % 0.9 % (0-4.5); HEMATOCRIT 32.3 % (35.4-49); HEMOGLOBIN 10.2 GM/dL (11.7-16.9); LYMPH % 49.2 % (8-40); MCH 27.9 pg (25.7-33.7); MCHC 31.4 g/dl (32.0-35.9); MEAN PLT VOLUME 8.7 fl (7.5-11.1); MONO % 13.5 % (3.8-10.2); NEUT % 36.1 % (42.8-82.8); PLATELET COUNT 206 10^3/uL (134-434); RBC 3.63 M/mm3 (4.00-5.60); RDW 18.8 % (11.9-15.9); WHITE BLOOD COUNT 6.1 K/mm3 (4.0-10.0)
[2024-10-20 07:15] LABS: POTASSIUM 4.1 mmol/L (3.5-5.1)
[2024-10-20 07:20] LABS: CALCIUM 8.8 mg/dL (8.5-10.1)
[2024-10-20 07:21] LABS: BLOOD UREA NITROGEN 12.4 mg/dL (7-18); MAGNESIUM 2.1 mg/dL (1.8-2.4)
[2024-10-20 07:24] LABS: CREATININE 0.4 mg/dL (0.55-1.3); PHOSPHOROUS 3.9 mg/dL (2.5-4.9)
[2024-10-21] MEDS ORDERED: guaiFENesin 200 MG/10 ML 10 ML UNIT-DOSE CUPS GT PRN (00:15)
[2024-10-21] MEDS: PIPERACILLIN/TAZOB 3.375 GM 50 ML IVPB SCH (02:15)
[2024-10-21] MEDS: clonazePAM 0.5 MG TABLET GT SCH (06:01)
[2024-10-21] MEDS: VANCOMYCIN ORAL SOLUTION 125 MG/2.5 ML PEG SCH (06:20)
[2024-10-21 07:57] LABS: BASO % 0.4 % (0-2.0); HEMATOCRIT 29.6 % (35.4-49); HEMOGLOBIN 9.6 GM/dL (11.7-16.9); LYMPH % 47.2 % (8-40); MCH 28.8 pg (25.7-33.7); MCHC 32.5 g/dl (32.0-35.9); MEAN CELL VOLUME 88.6 fl (80-96); MEAN PLT VOLUME 8.6 fl (7.5-11.1); MONO % 9.9 % (3.8-10.2); NEUT % 41.5 % (42.8-82.8); PLATELET COUNT 219 10^3/uL (134-434); RBC 3.34 M/mm3 (4.00-5.60); RDW 18.8 % (11.9-15.9); WHITE BLOOD COUNT 6.1 K/mm3 (4.0-10.0)
[2024-10-21 08:16] LABS: CALCIUM 8.7 mg/dL (8.5-10.1)
[2024-10-21 08:17] LABS: MAGNESIUM 2.2 mg/dL (1.8-2.4)
[2024-10-21 08:20] LABS: CREATININE 0.4 mg/dL (0.55-1.3); PHOSPHOROUS 4.3 mg/dL (2.5-4.9)
[2024-10-21] MEDS: BUDESONIDE 0.5 MG/2 ML INH SUSP VIAL NEB SCH (08:41)
[2024-10-21] MEDS: carBAMazepine 100 MG/5 ML UNIT-DOSE CUP GT SCH (09:52)
[2024-10-21] MEDS: APIXABAN 2.5 MG TABLET GT SCH (09:54)
[2024-10-21] MEDS: PANTOPRAZOLE SODIUM 40 MG VIAL IVPUSH SCH (09:54)
[2024-10-21] MEDS: levETIRAcetam 500 MG/5 ML ORAL SOLUTION (UNIT-DOSE CUPS) GT SCH (09:54)
[2024-10-21] MEDS: BACLOFEN 10 MG TABLET (FP) PO SCH (09:54)
[2024-10-21] MEDS: TERAZOSIN HCL 1 MG CAPSULE GT SCH (09:55)
[2024-10-21] MEDS: CHLORHEXIDINE GLUCONATE 4% CLEANSER FOR DECOLONIZATION TP SCH (21:19)
[2024-10-22] MEDS ORDERED: guaiFENesin 200 MG/10 ML 10 ML UNIT-DOSE CUPS GT PRN (12:28)
[2024-10-22] MEDS ORDERED: LORazepam 2 MG/ML SDV VIAL IVPUSH PRN (12:28)
[2024-10-22] MEDS ORDERED: ALBUTEROL SO4 2.5/IPRATROPIUM 0.5 INH SOL 3 ML VIAL.NEB. NEB PRN (12:28)
[2024-10-22] MEDS ORDERED: MAGNESIUM HYDROX 2400MG/30ML ORAL SUSPENSION 30 ML CUP PO PRN (12:28)
[2024-10-22] MEDS: VANCOMYCIN ORAL SOLUTION 125 MG/2.5 ML PEG SCH (13:39)
[2024-10-22] MEDS ORDERED: BACLOFEN 10 MG TABLET (FP) GT SCH (14:07)
[2024-10-22] MEDS ORDERED: MAGNESIUM HYDROX 2400MG/30ML ORAL SUSPENSION 30 ML CUP GT PRN (14:08)
[2024-10-22] MEDS: BACLOFEN 10 MG TABLET (FP) PO SCH (14:32)
[2024-10-22] MEDS: clonazePAM 0.5 MG TABLET GT SCH (14:47)
[2024-10-22] MEDS: BACLOFEN 10 MG TABLET (FP) GT SCH (14:47)
[2024-10-22] MEDS: FAMOTIDINE 20 MG/2.5 ML ORAL LIQUID PEG SCH (17:10)
[2024-10-22] MEDS: BUDESONIDE 0.5 MG/2 ML INH SUSP VIAL NEB SCH (19:48)
[2024-10-22] MEDS ORDERED: LACTOBACILLUS ACIDOPHILUS 1 TABLET PO SCH (22:00)
[2024-10-22] MEDS ORDERED: CHLORHEXIDINE GLUCONATE 4% CLEANSER FOR DECOLONIZATION TP SCH (22:00)
[2024-10-22] MEDS: levETIRAcetam 500 MG/5 ML ORAL SOLUTION (UNIT-DOSE CUPS) GT SCH (22:12)
[2024-10-22] MEDS: LACTOBACILLUS ACIDOPHILUS 1 TABLET PO SCH (22:13)
[2024-10-22] MEDS: APIXABAN 2.5 MG TABLET GT SCH (22:13)
[2024-10-22] MEDS: carBAMazepine 100 MG/5 ML UNIT-DOSE CUP GT SCH (22:14)
[2024-10-23] MEDS ORDERED: PANTOPRAZOLE SODIUM 40 MG VIAL IVPUSH SCH (10:00)
[2024-10-23 10:27] VITALS: BP 127/67; PULSE 90; RESP 16; TEMP 98.2
[2024-10-23] MEDS: TERAZOSIN HCL 1 MG CAPSULE GT SCH (10:41)
[2024-10-23] MEDS ORDERED: SCOPOLAMINE HYDROBROMIDE 1 PATCH PATCH.TD72 TD SCH ×2 (19:30)
== END 2024-10-23 12:20 | disposition home or self-care (01) | DRG 137 ==
LOC: JER 13:14 → JERBED 18:40 → JICU 21:16 → J2W 10-20 21:44 → J8W 10-22 12:17
PROVIDERS: ADMIT Internal Medicine Pulmonary Disease; ATTEND Nurse Practitioner Family
DX: J69.0 Pneumonitis due to inhalation of food and vomit (principal); J96.01 Acute respiratory failure with hypoxia; M41.9 Scoliosis, unspecified; G40.909 Epilepsy, unspecified, not intractable, without status epilepticus; J45.909 Unspecified asthma, uncomplicated; R53.2 Functional quadriplegia; Z93.1 Gastrostomy status; I48.91 Unspecified atrial fibrillation; G80.0 Spastic quadriplegic cerebral palsy; K59.00 Constipation, unspecified; D64.9 Anemia, unspecified; F73 Profound intellectual disabilities; Q02 Microcephaly; E87.1 Hypo-osmolality and hyponatremia; R62.50 Unspecified lack of expected normal physiological development in childhood
CPT/HCPCS: 0241U-QW; 36415; 71045-TC-FY; 80048; 80053; 81003; 82803; 82962; 83605; 83735; 84100; 84484; 85025; 85027; 85610; 86850; 86900; 86901; 87040; 87086; 87481; 94640; 94660; 94761; 99291; J0475

== ENCOUNTER 2025-01-11 12:48 | Inpatient (IN) | payer OTHER ==
[2025-01-11] MEDS: SODIUM CHLORIDE 500 ML IV STA (15:32)
[2025-01-11 16:20] LABS: ABSOLUTE IMMATURE GRANULOCYTES 0.02 x10^3/uL (0.0-0.031); BASOPHILS # 0.02 x10^3/uL (0.01-0.08); EOSINOPHILS # 0.16 x10^3/uL (0.04-0.54); HEMOGLOBIN 10.3 g/dL (13.7-17.5); MCHC 33.2 g/dl (32.3-36.5); MEAN CELL VOLUME 81.8 fl (79.0-92.2); MEAN PLT VOLUME 9.8 fl (9.4-12.4); MONOCYTE # 0.55 x10^3/uL (0.30-0.82); MONOCYTE % 10.4 % (5.3-12.2); PLATELET COUNT 303 x10^3/uL (163-337); RDW 15.9 % (12.0-15.6)
[2025-01-11 16:35] LABS: POTASSIUM 5.2 mmol/L (3.5-5.1)
[2025-01-11 16:37] LABS: ALBUMIN 3.2 g/dl (3.4-5.0); BLOOD UREA NITROGEN 10.6 mg/dL (7-18); CALCIUM 8.9 mg/dL (8.5-10.1); MAGNESIUM 2.2 mg/dL (1.8-2.4)
[2025-01-11 16:41] LABS: CREATININE 0.3 mg/dL (0.55-1.3)
[2025-01-11 16:42] LABS: BILIRUBIN,TOTAL 0.3 mg/dL (0.2-1); TOT PROT 8.2 g/dl (6.4-8.2)
[2025-01-11] MEDS ORDERED: PIPERACILLIN/TAZOB 4.5 GM 4.5 GM/100 ML BAG IVPB ONE (17:20)
[2025-01-11] MEDS: PIPERACILLIN/TAZOB 4.5 GM 4.5 GM in DEXTROSE 5%-WATER - 100 ML IVPB ONE (17:36)
[2025-01-11] MEDS ORDERED: ACETAMINOPHEN 650 MG/20.3 ML ORAL SOLUTION (CUPS) PO PRN (18:28)
[2025-01-11] MEDS ORDERED: BISACODYL 10 MG SUPP.RECT RC PRN (18:28)
[2025-01-11] MEDS ORDERED: VANCOMYCIN 1 GM PREMIX (F) 1 GM/200 ML BAG ONE (19:06)
[2025-01-11] MEDS: VANCOMYCIN 1,000 MG in DEXTROSE 5%-WATER - 250 ML IVPB ONE (19:13)
[2025-01-11] MEDS ORDERED: ALBUTEROL SO4 2.5/IPRATROPIUM 0.5 INH SOL 3 ML VIAL.NEB. NEB ONE (20:40)
[2025-01-11] MEDS: ALBUTEROL SO4 2.5/IPRATROPIUM 0.5 INH SOL 3 ML VIAL.NEB. NEB SCH (20:48)
[2025-01-11 20:55] LABS: PH,URINE 8.5 (5.0-8.0); URINE APPEARANCE CLEAR; URINE BILIRUBIN NEGATIVE (NEGATIVE); URINE COLOR YELLOW; URINE GLUCOSE (UA) NEGATIVE (NEGATIVE); URINE KETONE NEGATIVE (NEGATIVE); URINE LEUK ESTERASE NEGATIVE (NEGATIVE); URINE NITRITE NEGATIVE (NEGATIVE); URINE PROTEIN NEGATIVE (NEGATIVE)
[2025-01-11] MEDS ORDERED: ACETAMINOPHEN 650 MG/20.3 ML ORAL SOLUTION (CUPS) GT PRN (22:47)
[2025-01-11] MEDS: levETIRAcetam 500 MG/5 ML ORAL SOLUTION (UNIT-DOSE CUPS) GT SCH (22:50)
[2025-01-11] MEDS: METOPROLOL TARTRATE 25 MG TABLET (FP) GT SCH (22:51)
[2025-01-11] MEDS: BACLOFEN 10 MG TABLET (FP) GT SCH (22:52)
[2025-01-11] MEDS: CHOLECALCIFEROL (VIT D3) 1,000 UNIT (25 MCG) TABLET GT SCH (22:52)
[2025-01-11] MEDS: APIXABAN 2.5 MG TABLET GT SCH (22:52)
[2025-01-11] MEDS: GLYCOPYRROLATE 1 MG TABLET GT SCH (22:53)
[2025-01-11] MEDS: PIPERACILLIN/TAZOB 3.375 GM 3.375 GM in DEXTROSE 5%-WATER - 50 ML IVPB SCH (22:53)
[2025-01-11] MEDS: clonazePAM 0.5 MG TABLET GT SCH (22:53)
[2025-01-11] MEDS: MUPIROCIN CA 2% TOPICAL CREAM 15 GM TUBE TP SCH (22:54)
[2025-01-11] MEDS ORDERED: PIPERACILLIN/TAZOB 3.375 GM 3.375 GM in DEXTROSE 5%-WATER - 50 ML IVPB SCH (23:00)
[2025-01-11] MEDS ORDERED: CLINDAMYCIN 600MG PREMIX IVPB 600 MG/50 ML BAG IVPB SCH (23:00)
[2025-01-11] MEDS: SCOPOLAMINE HYDROBROMIDE 1 PATCH PATCH.TD72 TD SCH (23:17)
[2025-01-12] MEDS: SCOPOLAMINE HYDROBROMIDE 1 PATCH PATCH.TD72 TD SCH (00:29)
[2025-01-12] MEDS: BUDESONIDE 0.5 MG/2 ML INH SUSP VIAL NEB SCH ×2 (00:30→07:25)
[2025-01-12] MEDS: ALBUTEROL SO4 2.5/IPRATROPIUM 0.5 INH SOL 3 ML VIAL.NEB. NEB SCH (04:15)
[2025-01-12] MEDS: SODIUM CHLORIDE 1,000 ML IV SCH (07:22)
[2025-01-12] MEDS ORDERED: ENOXAPARIN NA (PORCINE) 40 MG/0.4 ML DISP.SYRIN SQ SCH (10:00)
[2025-01-12] MEDS: SODIUM CHLORIDE 1 GM TABLET GT SCH (10:16)
[2025-01-12] MEDS: TERAZOSIN HCL 1 MG CAPSULE GT SCH (10:17)
[2025-01-12] MEDS: FAMOTIDINE 20 MG/2.5 ML ORAL LIQUID GT SCH (10:18)
[2025-01-12 10:32] LABS: BLOOD UREA NITROGEN 7.6 mg/dL (7-18); MAGNESIUM 2.2 mg/dL (1.8-2.4); POTASSIUM 5.7 mmol/L (3.5-5.1)
[2025-01-12 10:35] LABS: PHOSPHOROUS 3.4 mg/dL (2.5-4.9)
[2025-01-12 10:37] LABS: BILIRUBIN,TOTAL 0.4 mg/dL (0.2-1)
[2025-01-12 10:38] LABS: CREATININE 0.4 mg/dL (0.55-1.3)
[2025-01-12] MEDS: VANCOMYCIN 1 GM PREMIX (F) 1 GM/200 ML BAG IVPB SCH (13:14)
[2025-01-12 13:35] LABS: ABSOLUTE IMMATURE GRANULOCYTES 0.02 x10^3/uL (0.0-0.031); BASOPHILS # 0.03 x10^3/uL (0.01-0.08); EOSINOPHIL % 1.2 % (0.8-7.0); EOSINOPHILS # 0.06 x10^3/uL (0.04-0.54); HEMATOCRIT 31.5 % (40.1-51.0); HEMOGLOBIN 10.3 g/dL (13.7-17.5); MCHC 32.7 g/dl (32.3-36.5); MONOCYTE # 0.56 x10^3/uL (0.30-0.82); PLATELET COUNT 318 x10^3/uL (163-337); RDW 15.9 % (12.0-15.6)
[2025-01-12 13:54] LABS: POTASSIUM 4.1 mmol/L (3.5-5.1)
[2025-01-12 13:57] LABS: ALBUMIN 2.9 g/dl (3.4-5.0)
[2025-01-12 14:02] LABS: BILIRUBIN,TOTAL 0.3 mg/dL (0.2-1); CREATININE 0.4 mg/dL (0.55-1.3); TOT PROT 7.6 g/dl (6.4-8.2)
[2025-01-12 14:05] LABS: BLOOD UREA NITROGEN 6.9 mg/dL (7-18)
[2025-01-12] MEDS: PIPERACILLIN/TAZOB 3.375 GM 50 ML IVPB SCH (17:15)
[2025-01-13] MEDS: VANCOMYCIN/WATER FOR INJ (PEG) 1 GM/200 ML BAG IVPB SCH (02:51)
[2025-01-13 15:32] VITALS: BMI 22.2
[2025-01-13] MEDS: METOPROLOL TARTRATE 25 MG TABLET (FP) GT SCH (21:23)
[2025-01-14] MEDS: VANCOMYCIN 1 GM PREMIX (F) 1 GM/200 ML BAG IVPB SCH (02:23)
[2025-01-15 09:44] LABS: ABSOLUTE IMMATURE GRANULOCYTES 0.04 x10^3/uL (0.0-0.031); BASOPHILS # 0.05 x10^3/uL (0.01-0.08); EOSINOPHIL % 1.6 % (0.8-7.0); EOSINOPHILS # 0.12 x10^3/uL (0.04-0.54); HEMATOCRIT 32.1 % (40.1-51.0); HEMOGLOBIN 10.4 g/dL (13.7-17.5); MCHC 32.4 g/dl (32.3-36.5); MEAN CELL VOLUME 83.4 fl (79.0-92.2); MEAN PLT VOLUME 9.2 fl (9.4-12.4); MONOCYTE # 0.66 x10^3/uL (0.30-0.82); MONOCYTE % 8.8 % (5.3-12.2); PLATELET COUNT 336 x10^3/uL (163-337); RDW 16.3 % (12.0-15.6)
[2025-01-15 12:53] VITALS: RESP 18
[2025-01-16 11:31] VITALS: BP 104/59; PULSE 92; TEMP 98.4
== END 2025-01-16 12:12 | disposition home or self-care (01) | DRG 720 ==
LOC: JER 12:48 → JERBED 17:19 → J6S 22:09
PROVIDERS: ADMIT Internal Medicine; ATTEND Internal Medicine
DX: A41.89 Other specified sepsis (principal); L89.151 Pressure ulcer of sacral region, stage 1; R53.2 Functional quadriplegia; Q02 Microcephaly; G40.909 Epilepsy, unspecified, not intractable, without status epilepticus; I48.0 Paroxysmal atrial fibrillation; J45.909 Unspecified asthma, uncomplicated; L02.31 Cutaneous abscess of buttock; R62.50 Unspecified lack of expected normal physiological development in childhood; E87.1 Hypo-osmolality and hyponatremia; R13.19 Other dysphagia; G80.8 Other cerebral palsy; R68.0 Hypothermia, not associated with low environmental temperature; E87.5 Hyperkalemia; M41.80 Other forms of scoliosis, site unspecified; Z86.718 Personal history of other venous thrombosis and embolism
CPT/HCPCS: 0241U-QW; 36415; 71045-TC-FY; 76604; 80053; 81003; 83605; 83735; 84100; 84484; 85025; 87040; 87070; 87081; 87086; 87186; 87205; 87481; 87635; 93005; 93010; 94640; 99285-25; G0480; J0475

== ENCOUNTER 2025-02-15 04:03 | Inpatient (IN) | payer OTHER ==
[2025-02-15] MEDS ORDERED: ACETAMINOPHEN INJECTION 100 ML ONE (04:12)
[2025-02-15] MEDS: ACETAMINOPHEN 1000 MG/100 ML BAG IVPB ONE (04:29)
[2025-02-15] MEDS: LACTATED RINGERS SOLUTION 1000 ML INFUS.BAG IV ONE (04:34)
[2025-02-15] MEDS ORDERED: PIPERACILLIN/TAZOB 4.5 GM 4.5 GM/100 ML BAG IVPB ONE (04:39)
[2025-02-15 04:40] LABS: ABSOLUTE IMMATURE GRANULOCYTES 0.02 x10^3/uL (0.0-0.031); BASOPHILS # 0.02 x10^3/uL (0.01-0.08); EOSINOPHIL % 1.2 % (0.8-7.0); EOSINOPHILS # 0.09 x10^3/uL (0.04-0.54); MCHC 32.6 g/dl (32.3-36.5); MEAN CELL VOLUME 81.3 fl (79.0-92.2); MEAN PLT VOLUME 10.6 fl (9.4-12.4); MONOCYTE # 0.37 x10^3/uL (0.30-0.82); MONOCYTE % 5.0 % (5.3-12.2); RDW 16.8 % (12.0-15.6)
[2025-02-15] MEDS: PIPERACILLIN/TAZOB 4.5 GM 4.5 GM in DEXTROSE 5%-WATER 100 ML IVPB ONE (04:43)
[2025-02-15 04:44] LABS: BG HCT 40.0 % (35.4-49); VENOUS BASE EXCESS 0.3 mmol/L (-2-2); VENOUS O2 SATURATION 63.5 % (70-80); VENOUS PCO2 49.2 mmHg (38-52); VENOUS PH 7.349 (7.310-7.410)
[2025-02-15] MEDS ORDERED: DOXYCYCLINE HYCLATE 100 MG VIAL ONE (04:45)
[2025-02-15] MEDS ORDERED: DEXTROSE 5%-WATER 100 ML IVPB ONE (04:49)
[2025-02-15 04:55] LABS: INR 1.27 (0.83-1.09); PROTHROMBIN TIME (PATIENT) 13.8 SEC (9.7-13.0)
[2025-02-15 04:57] LABS: ACTIVATED PTT 38.7 SECONDS (25.2-36.5)
[2025-02-15] MEDS: DOXYCYCLINE INJECTION 100 MG in DEXTROSE 5%-WATER 100 ML IVPB ONE (05:16)
[2025-02-15 05:23] LABS: LACTIC ACID 2.3 mmol/L (0.4-2.0)
[2025-02-15 05:25] LABS: CO2 26.0 mmol/L (21-32); GLUCOSE,RANDOM 91.0 mg/dL (74-106)
[2025-02-15 05:28] LABS: CREATININE 0.5 mg/dL (0.55-1.3); SGOT/AST 26.0 U/L (15-37); SGPT/ALT 39.0 U/L (13-61)
[2025-02-15 05:29] LABS: TOT PROT 9.2 g/dl (6.4-8.2)
[2025-02-15 05:31] LABS: ALK PHOS 142.0 U/L (45-117)
[2025-02-15 05:33] LABS: N-TERMINAL BNP 80.8 pg/ml (5-125)
[2025-02-15] MEDS ORDERED: CALCIUM GLUC IN NACL, ISO-OSM 1 GM/50 ML BAG IVPB ONE (05:38)
[2025-02-15] MEDS ORDERED: ALBUTEROL SO4 0.083% IH SOL 2.5 MG/3 ML VIAL.NEB. NEB PRN (05:38)
[2025-02-15] MEDS ORDERED: ONDANSETRON 4 MG/2 ML VIAL IVPUSH PRN ×2 (05:41→19:06)
[2025-02-15] MEDS: CALCIUM GLUCONATE 10% - 1,000 MG/10 ML VIAL IVPB ONE (05:45)
[2025-02-15] MEDS ORDERED: ZINC OXIDE 20% TOPICAL OINTMENT 30 GM TUBE TP PRN ×2 (05:46→19:06)
[2025-02-15] MEDS ORDERED: BISACODYL 10 MG SUPP.RECT RC PRN (05:46)
[2025-02-15] MEDS ORDERED: VANCOMYCIN 1 GM PREMIX (F) 1 GM/200 ML BAG ONE (05:49)
[2025-02-15] MEDS: VANCOMYCIN 1,000 MG in DEXTROSE 5%-WATER - 250 ML IVPB ONE (06:03)
[2025-02-15] MEDS: SCOPOLAMINE HYDROBROMIDE 1 PATCH PATCH.TD72 TD SCH (06:29)
[2025-02-15] MEDS: VANCOMYCIN 1,000 MG in DEXTROSE 5%-WATER - 250 ML IVPB SCH (06:45)
[2025-02-15] MEDS: SODIUM CHLORIDE 1,000 ML IV SCH ×2 (07:37→07:48)
[2025-02-15] MEDS ORDERED: RAPID SEQUENCE INTUBATION KIT NR ONE (09:50)
[2025-02-15] MEDS ORDERED: PROPOFOL 1,000,000 MCG/100 ML VIAL ONE (09:57)
[2025-02-15] MEDS ORDERED: LACTOSE REDUCED FOOD GT SCH (10:00)
[2025-02-15] MEDS ORDERED: [UNRECOGNIZED DRUG - OTHER] GT SCH (10:00)
[2025-02-15] MEDS ORDERED: METOPROLOL TARTRATE 25 MG TABLET (FP) GT SCH (10:00)
[2025-02-15] MEDS ORDERED: ENOXAPARIN NA (PORCINE) 40 MG/0.4 ML DISP.SYRIN SQ SCH (10:00)
[2025-02-15] MEDS ORDERED: FIBER GT SCH (10:00)
[2025-02-15] MEDS: BUDESONIDE 0.5 MG/2 ML INH SUSP VIAL NEB SCH ×2 (10:40→19:59)
[2025-02-15] MEDS: levETIRAcetam 500 MG/5 ML ORAL SOLUTION (UNIT-DOSE CUPS) GT SCH ×2 (10:43→21:00)
[2025-02-15] MEDS: carBAMazepine 100 MG/5 ML UNIT-DOSE CUP GT SCH ×2 (10:43→21:01)
[2025-02-15] MEDS: FAMOTIDINE 20 MG/2.5 ML ORAL LIQUID GT SCH ×2 (10:43→21:02)
[2025-02-15] MEDS: APIXABAN 2.5 MG TABLET GT SCH ×2 (10:44→21:01)
[2025-02-15] MEDS: AMINO ACIDS/PROTEIN HYDROLYS 30 ML LIQUID.PKT GT SCH (10:44)
[2025-02-15] MEDS: BACLOFEN 10 MG TABLET (FP) GT SCH ×2 (10:44→21:00)
[2025-02-15] MEDS: LACTOBACILLUS ACIDOPHILUS 1 TABLET GT SCH (10:44)
[2025-02-15] MEDS: PIPERACILLIN/TAZOB 4.5 GM 4.5 GM/100 ML BAG IVPB SCH (10:44)
[2025-02-15] MEDS: TERAZOSIN HCL 1 MG CAPSULE PO SCH (10:45)
[2025-02-15] MEDS: SODIUM CHLORIDE 1 GM TABLET GT SCH (10:45)
[2025-02-15] MEDS: NAPHAZOLINE/PHENIRAMINE OPHTHALMIC 15 ML BOTTLE OU PRN (10:45)
[2025-02-15] MEDS: ROCURONIUM BROMIDE 50 MG/5 ML VIAL IVPUSH ONE (10:46)
[2025-02-15] MEDS: PROPOFOL 1,000,000 MCG/100 ML VIAL IVPB SCH (10:47)
[2025-02-15] MEDS: MUPIROCIN 2% TOPICAL OINTMENT FOR DECOLONIZATION NS SCH (10:48)
[2025-02-15] MEDS: methylPREDNISolone NA SUCC 40 MG/1 ML VIAL IVPUSH SCH (10:48)
[2025-02-15] MEDS: ROCURONIUM BROMIDE 50 MG/5 ML VIAL IV ONE (11:27)
[2025-02-15] MEDS: ALBUTEROL SO4 0.083% IH SOL 2.5 MG/3 ML VIAL.NEB. NEB SCH (11:50)
[2025-02-15] MEDS ORDERED: SODIUM CHLORIDE 1,000 ML IV SCH (12:01)
[2025-02-15 13:57] VITALS: BMI 26.2
[2025-02-15] MEDS: FENTANYL NS IVPB 500 MCG/100 ML BAG IVPB SCH (15:27)
[2025-02-15] MEDS: PROPOFOL 200 MG/20 ML VIAL IVPUSH ONE (15:27)
[2025-02-15] MEDS: SODIUM CHLORIDE 1,000 ML IV STA (15:28)
[2025-02-15] MEDS ORDERED: MIDAZOLAM HCL 2 MG/2 ML SINGLE DOSE VIAL ONE (17:43)
[2025-02-15] MEDS: MIDAZOLAM HCL 2 MG/2 ML SINGLE DOSE VIAL IVPUSH ONE (17:48)
[2025-02-15] MEDS ORDERED: NAPHAZOLINE/PHENIRAMINE OPHTHALMIC 15 ML BOTTLE OU PRN (19:06)
[2025-02-15] MEDS: VANCOMYCIN/WATER FOR INJ (PEG) 1,000 MG/200 ML BAG IVPB SCH (20:28)
[2025-02-15] MEDS: MIDAZOLAM IN 0.9 % SOD.CHLORID 100 MG/100 ML PLAST..BAG IVPB SCH (20:58)
[2025-02-15] MEDS ORDERED: PIPERACILLIN/TAZOB 4.5 GM 4.5 GM in DEXTROSE 5%-WATER 100 ML IVPB SCH (21:00)
[2025-02-15] MEDS ORDERED: PIPERACILLIN/TAZOB 4.5 GM 4.5 GM/100 ML BAG IVPB SCH (21:00)
[2025-02-15] MEDS: CHLORHEXIDINE GLUCONATE 4% CLEANSER FOR DECOLONIZATION TP SCH (21:02)
[2025-02-15] MEDS: GLYCOPYRROLATE 1 MG TABLET GT SCH (21:03)
[2025-02-15] MEDS: PIPERACILLIN/TAZOB 4.5 GM 4.5 GM in DEXTROSE 5%-WATER 100 ML IVPB SCH (21:30)
[2025-02-16] MEDS: SODIUM CHLORIDE 0.9% 500 ML INFUS.BAG IV ONE (00:01)
[2025-02-16 02:13] LABS: URINE APPEARANCE CLEAR; URINE BILIRUBIN NEGATIVE (NEGATIVE); URINE COLOR YELLOW; URINE GLUCOSE (UA) NEGATIVE (NEGATIVE); URINE KETONE NEGATIVE (NEGATIVE); URINE LEUK ESTERASE NEGATIVE (NEGATIVE); URINE NITRITE NEGATIVE (NEGATIVE); URINE PROTEIN NEGATIVE (NEGATIVE); URINE UROBILINOGEN 0.2 mg/dL (0.2-1.0)
[2025-02-16] MEDS ORDERED: VANCOMYCIN 1,000 MG in DEXTROSE 5%-WATER - 250 ML IVPB SCH (05:45)
[2025-02-16 06:32] LABS: ABSOLUTE IMMATURE GRANULOCYTES 0.01 x10^3/uL (0.0-0.031); MCHC 32.2 g/dl (32.3-36.5)
[2025-02-16 06:34] LABS: BASOPHILS # 0.01 x10^3/uL (0.01-0.08); EOSINOPHIL % 0.5 % (0.8-7.0); EOSINOPHILS # 0.03 x10^3/uL (0.04-0.54); IMMATURE PLATELET FRACTION # 4.60 x10^3/uL; MEAN CELL VOLUME 81.2 fl (79.0-92.2); MEAN PLT VOLUME 11.5 fl (9.4-12.4); MONOCYTE # 0.38 x10^3/uL (0.30-0.82); MONOCYTE % 6.8 % (5.3-12.2); RDW 16.8 % (12.0-15.6)
[2025-02-16 06:48] LABS: CO2 23 mmol/L (21-32); GLUCOSE,RANDOM 96 mg/dL (74-106)
[2025-02-16 06:51] LABS: CREATININE 0.3 mg/dL (0.55-1.3); SGOT/AST 31 U/L (15-37); SGPT/ALT 39 U/L (13-61)
[2025-02-16 06:55] LABS: ALK PHOS 89 U/L (45-117); TOT PROT 6.1 g/dl (6.4-8.2)
[2025-02-16] MEDS: KCL 10 MEQ IVPB 10 MEQ/100 ML INFUS.BAG IVPB SCH (07:44)
[2025-02-16] MEDS: POTASSIUM CHLORIDE ORAL LIQUID 20 MEQ/15 ML PO ONE (07:49)
[2025-02-16] MEDS ORDERED: POTASSIUM CHLORIDE TABS 20 MEQ TABLET.ER (FP) PO ONE (08:30)
[2025-02-16] MEDS: AMINO ACIDS/PROTEIN HYDROLYS 30 ML LIQUID.PKT GT SCH (08:59)
[2025-02-16] MEDS: TERAZOSIN HCL 1 MG CAPSULE GT SCH (09:00)
[2025-02-16] MEDS: LACTOBACILLUS ACIDOPHILUS 1 TABLET GT SCH (09:00)
[2025-02-16] MEDS: SODIUM CHLORIDE 1 GM TABLET GT SCH (09:01)
[2025-02-16] MEDS: POTASSIUM CHLORIDE ORAL LIQUID 20 MEQ/15 ML GT ONE (12:50)
[2025-02-16] MEDS: SCOPOLAMINE HYDROBROMIDE 1 PATCH PATCH.TD72 TD SCH (13:38)
[2025-02-16 16:13] LABS: CO2 21.0 mmol/L (21-32); GLUCOSE,RANDOM 164.0 mg/dL (74-106)
[2025-02-16 16:16] LABS: CREATININE 0.3 mg/dL (0.55-1.3)
[2025-02-16] MEDS: PIPERACILLIN/TAZOB 3.375 GM 3.375 GM in DEXTROSE 5%-WATER - 50 ML IVPB SCH (17:03)
[2025-02-17 06:14] LABS: MEAN PLT VOLUME 10.8 fl (9.4-12.4)
[2025-02-17 06:16] LABS: IMMATURE PLATELET FRACTION # 7.70 x10^3/uL; MCHC 32.6 g/dl (32.3-36.5); MEAN CELL VOLUME 82.0 fl (79.0-92.2); RDW 17.2 % (12.0-15.6)
[2025-02-17 06:34] LABS: CO2 24.0 mmol/L (21-32); GLUCOSE,RANDOM 110.0 mg/dL (74-106)
[2025-02-17 06:37] LABS: CREATININE 0.3 mg/dL (0.55-1.3); SGOT/AST 48.0 U/L (15-37); SGPT/ALT 66.0 U/L (13-61)
[2025-02-17 06:39] LABS: TOT PROT 6.7 g/dl (6.4-8.2)
[2025-02-17 06:40] LABS: ALK PHOS 88.0 U/L (45-117)
[2025-02-17] MEDS: PIPERACILLIN/TAZOB 4.5 GM 4.5 GM in DEXTROSE 5%-WATER 100 ML IVPB SCH (19:33)
[2025-02-17] MEDS: VANCOMYCIN 1,000 MG in DEXTROSE 5%-WATER - 250 ML IVPB SCH (19:33)
[2025-02-18] MEDS: VANCOMYCIN ORAL SOLUTION 125 MG/2.5 ML PEG SCH (01:27)
[2025-02-18] MEDS: BISACODYL 10 MG SUPP.RECT RC PRN (05:05)
[2025-02-18 07:18] LABS: CO2 27.0 mmol/L (21-32); GLUCOSE,RANDOM 82.0 mg/dL (74-106)
[2025-02-18 07:20] LABS: ABSOLUTE IMMATURE GRANULOCYTES 0.01 x10^3/uL (0.0-0.031); BASOPHILS # 0.02 x10^3/uL (0.01-0.08); EOSINOPHIL % 1.0 % (0.8-7.0); EOSINOPHILS # 0.05 x10^3/uL (0.04-0.54); MCHC 32.6 g/dl (32.3-36.5); MEAN CELL VOLUME 81.2 fl (79.0-92.2); MEAN PLT VOLUME 11.2 fl (9.4-12.4); MONOCYTE # 0.69 x10^3/uL (0.30-0.82); MONOCYTE % 13.7 % (5.3-12.2); RDW 17.6 % (12.0-15.6)
[2025-02-18 07:21] LABS: CREATININE 0.3 mg/dL (0.55-1.3); SGOT/AST 49.0 U/L (15-37); SGPT/ALT 66.0 U/L (13-61)
[2025-02-18 07:23] LABS: TOT PROT 6.9 g/dl (6.4-8.2)
[2025-02-18 07:24] LABS: ALK PHOS 86.0 U/L (45-117)
[2025-02-19 06:33] LABS: ABSOLUTE IMMATURE GRANULOCYTES 0.01 x10^3/uL (0.0-0.031); BASOPHILS # 0.02 x10^3/uL (0.01-0.08); EOSINOPHIL % 1.0 % (0.8-7.0); EOSINOPHILS # 0.05 x10^3/uL (0.04-0.54); MCHC 32.1 g/dl (32.3-36.5); MEAN CELL VOLUME 81.3 fl (79.0-92.2); MEAN PLT VOLUME 11.7 fl (9.4-12.4); MONOCYTE # 0.65 x10^3/uL (0.30-0.82); MONOCYTE % 12.5 % (5.3-12.2); RDW 17.2 % (12.0-15.6)
[2025-02-19 07:03] LABS: CO2 27.0 mmol/L (21-32); GLUCOSE,RANDOM 88.0 mg/dL (74-106)
[2025-02-19 07:06] LABS: SGOT/AST 27.0 U/L (15-37); SGPT/ALT 56.0 U/L (13-61)
[2025-02-19 07:07] LABS: CREATININE 0.3 mg/dL (0.55-1.3)
[2025-02-19 07:08] LABS: ALK PHOS 95.0 U/L (45-117); TOT PROT 7.2 g/dl (6.4-8.2)
[2025-02-19] MEDS: POTASSIUM CHLORIDE ORAL LIQUID 20 MEQ/15 ML PO ONE (09:08)
[2025-02-19] MEDS ORDERED: ONDANSETRON 4 MG/2 ML VIAL IVPUSH PRN (14:43)
[2025-02-19] MEDS ORDERED: ZINC OXIDE 20% TOPICAL OINTMENT 30 GM TUBE TP PRN (14:43)
[2025-02-19] MEDS ORDERED: SODIUM CHLORIDE 1,000 ML IV SCH (14:43)
[2025-02-19] MEDS ORDERED: BISACODYL 10 MG SUPP.RECT RC PRN (14:43)
[2025-02-19] MEDS: ALBUTEROL SO4 0.083% IH SOL 2.5 MG/3 ML VIAL.NEB. NEB SCH (15:34)
[2025-02-19] MEDS: BACLOFEN 10 MG TABLET (FP) GT SCH (17:52)
[2025-02-19] MEDS: PIPERACILLIN/TAZOB 3.375 GM 3.375 GM in DEXTROSE 5%-WATER - 50 ML IVPB SCH (17:52)
[2025-02-19] MEDS: VANCOMYCIN ORAL SOLUTION 125 MG/2.5 ML PEG SCH (17:53)
[2025-02-19] MEDS: BUDESONIDE 0.5 MG/2 ML INH SUSP VIAL NEB SCH (20:05)
[2025-02-19] MEDS: levETIRAcetam 500 MG/5 ML ORAL SOLUTION (UNIT-DOSE CUPS) GT SCH (22:26)
[2025-02-19] MEDS: APIXABAN 2.5 MG TABLET GT SCH (22:26)
[2025-02-19] MEDS: carBAMazepine 100 MG/5 ML UNIT-DOSE CUP GT SCH (22:57)
[2025-02-19] MEDS: FAMOTIDINE 20 MG/2.5 ML ORAL LIQUID GT SCH (22:57)
[2025-02-19] MEDS: GLYCOPYRROLATE 1 MG TABLET GT SCH (22:57)
[2025-02-20 06:36] LABS: ABSOLUTE IMMATURE GRANULOCYTES 0.01 x10^3/uL (0.0-0.031); BASOPHILS # 0.02 x10^3/uL (0.01-0.08)
[2025-02-20 06:38] LABS: EOSINOPHIL % 2.0 % (0.8-7.0); EOSINOPHILS # 0.12 x10^3/uL (0.04-0.54); MCHC 32.2 g/dl (32.3-36.5); MEAN CELL VOLUME 81.5 fl (79.0-92.2); MEAN PLT VOLUME 10.9 fl (9.4-12.4); MONOCYTE # 0.71 x10^3/uL (0.30-0.82); MONOCYTE % 11.8 % (5.3-12.2); RDW 17.3 % (12.0-15.6)
[2025-02-20 07:04] LABS: CO2 28.0 mmol/L (21-32)
[2025-02-20 07:07] LABS: GLUCOSE,RANDOM 102.0 mg/dL (74-106)
[2025-02-20 07:10] LABS: CREATININE 0.4 mg/dL (0.55-1.3); SGOT/AST 21.0 U/L (15-37)
[2025-02-20 07:11] LABS: SGPT/ALT 55.0 U/L (13-61)
[2025-02-20 07:13] LABS: TOT PROT 7.5 g/dl (6.4-8.2)
[2025-02-20 07:14] LABS: ALK PHOS 96.0 U/L (45-117)
[2025-02-20] MEDS: AMINO ACIDS/PROTEIN HYDROLYS 30 ML LIQUID.PKT GT SCH (10:22)
[2025-02-20] MEDS: LACTOBACILLUS ACIDOPHILUS 1 TABLET GT SCH (10:22)
[2025-02-20] MEDS: methylPREDNISolone NA SUCC 40 MG/1 ML VIAL IVPUSH SCH (10:23)
[2025-02-20] MEDS: TERAZOSIN HCL 1 MG CAPSULE GT SCH (14:32)
[2025-02-20] MEDS: SODIUM CHLORIDE 1 GM TABLET GT SCH (14:32)
[2025-02-20] MEDS: BUDESONIDE 0.5 MG/2 ML INH SUSP VIAL NEB SCH (23:00)
[2025-02-21 06:38] LABS: CO2 29.0 mmol/L (21-32)
[2025-02-21 06:39] LABS: GLUCOSE,RANDOM 95.0 mg/dL (74-106)
[2025-02-21 06:41] LABS: CREATININE 0.4 mg/dL (0.55-1.3); SGPT/ALT 51.0 U/L (13-61)
[2025-02-21 06:42] LABS: SGOT/AST 19.0 U/L (15-37)
[2025-02-21 06:43] LABS: ABSOLUTE IMMATURE GRANULOCYTES 0.03 x10^3/uL (0.0-0.031); BASOPHILS # 0.02 x10^3/uL (0.01-0.08); EOSINOPHIL % 2.7 % (0.8-7.0); EOSINOPHILS # 0.19 x10^3/uL (0.04-0.54); MCHC 32.2 g/dl (32.3-36.5); MEAN CELL VOLUME 82.1 fl (79.0-92.2); MEAN PLT VOLUME 11.0 fl (9.4-12.4); MONOCYTE # 0.74 x10^3/uL (0.30-0.82); MONOCYTE % 10.5 % (5.3-12.2); RDW 17.4 % (12.0-15.6); TOT PROT 7.6 g/dl (6.4-8.2)
[2025-02-21 06:44] LABS: ALK PHOS 94.0 U/L (45-117)
[2025-02-22 06:41] LABS: ABSOLUTE IMMATURE GRANULOCYTES 0.03 x10^3/uL (0.0-0.031); BASOPHILS # 0.01 x10^3/uL (0.01-0.08); EOSINOPHIL % 1.6 % (0.8-7.0); EOSINOPHILS # 0.12 x10^3/uL (0.04-0.54); MCHC 31.8 g/dl (32.3-36.5); MEAN CELL VOLUME 83.0 fl (79.0-92.2); MEAN PLT VOLUME 10.4 fl (9.4-12.4); MONOCYTE # 0.58 x10^3/uL (0.30-0.82); MONOCYTE % 7.9 % (5.3-12.2); RDW 17.6 % (12.0-15.6)
[2025-02-22 07:01] LABS: CO2 29.0 mmol/L (21-32); GLUCOSE,RANDOM 106.0 mg/dL (74-106)
[2025-02-22 07:04] LABS: CREATININE 0.4 mg/dL (0.55-1.3); SGOT/AST 22.0 U/L (15-37); SGPT/ALT 51.0 U/L (13-61)
[2025-02-22 07:06] LABS: TOT PROT 7.6 g/dl (6.4-8.2)
[2025-02-22 07:07] LABS: ALK PHOS 94.0 U/L (45-117)
[2025-02-22] MEDS: ACETAMINOPHEN 1000 MG/100 ML BAG IVPB ONE (12:00)
[2025-02-22] MEDS: methylPREDNISolone NA SUCC 40 MG/1 ML VIAL IVPUSH SCH (12:00)
[2025-02-22] MEDS ORDERED: SCOPOLAMINE HYDROBROMIDE 1 PATCH PATCH.TD72 TD SCH (14:00)
[2025-02-22] MEDS: SCOPOLAMINE HYDROBROMIDE 1 PATCH PATCH.TD72 TD SCH (17:15)
[2025-02-23 09:12] LABS: MCHC 32.6 g/dl (32.3-36.5); MEAN CELL VOLUME 82.2 fl (79.0-92.2); MEAN PLT VOLUME 10.2 fl (9.4-12.4); RDW 17.3 % (12.0-15.6)
[2025-02-23 09:39] LABS: CO2 26.0 mmol/L (21-32)
[2025-02-23 09:42] LABS: SGOT/AST 19.0 U/L (15-37); SGPT/ALT 48.0 U/L (13-61)
[2025-02-23 10:28] LABS: CREATININE 0.2 mg/dL (0.55-1.3)
[2025-02-23 10:30] LABS: ALK PHOS 97.0 U/L (45-117)
[2025-02-23 10:33] LABS: GLUCOSE,RANDOM 125.0 mg/dL (74-106); TOT PROT 7.5 g/dl (6.4-8.2)
[2025-02-23] MEDS: AMOX TR/POTASSIUM CLAVULANATE 400 MG/5 ML BOTTLE NGT SCH (17:22)
[2025-02-24 07:35] LABS: MCHC 32.3 g/dl (32.3-36.5); MEAN CELL VOLUME 83.0 fl (79.0-92.2); MEAN PLT VOLUME 10.7 fl (9.4-12.4); RDW 17.6 % (12.0-15.6)
[2025-02-24 07:55] LABS: GLUCOSE,RANDOM 103.0 mg/dL (74-106)
[2025-02-24 07:56] LABS: CO2 29.0 mmol/L (21-32)
[2025-02-24 07:59] LABS: CREATININE 0.3 mg/dL (0.55-1.3); SGOT/AST 15.0 U/L (15-37); SGPT/ALT 46.0 U/L (13-61)
[2025-02-24 08:00] LABS: TOT PROT 7.2 g/dl (6.4-8.2)
[2025-02-24 08:02] LABS: ALK PHOS 91.0 U/L (45-117)
[2025-02-25 06:33] LABS: ABSOLUTE IMMATURE GRANULOCYTES 0.02 x10^3/uL (0.0-0.031); BASOPHILS # 0.02 x10^3/uL (0.01-0.08); EOSINOPHIL % 0.3 % (0.8-7.0); EOSINOPHILS # 0.02 x10^3/uL (0.04-0.54); MCHC 32.0 g/dl (32.3-36.5); MEAN CELL VOLUME 84.2 fl (79.0-92.2); MEAN PLT VOLUME 9.8 fl (9.4-12.4); MONOCYTE # 0.77 x10^3/uL (0.30-0.82); MONOCYTE % 11.4 % (5.3-12.2); RDW 18.5 % (12.0-15.6)
[2025-02-25 07:04] LABS: CO2 29.0 mmol/L (21-32); GLUCOSE,RANDOM 83.0 mg/dL (74-106)
[2025-02-25 07:07] LABS: CREATININE 0.3 mg/dL (0.55-1.3); SGOT/AST 21.0 U/L (15-37); SGPT/ALT 51.0 U/L (13-61)
[2025-02-25 07:09] LABS: TOT PROT 7.4 g/dl (6.4-8.2)
[2025-02-25 07:10] LABS: ALK PHOS 93.0 U/L (45-117)
[2025-02-26 06:33] LABS: ABSOLUTE IMMATURE GRANULOCYTES 0.02 x10^3/uL (0.0-0.031); BASOPHILS # 0.01 x10^3/uL (0.01-0.08); EOSINOPHIL % 1.1 % (0.8-7.0); EOSINOPHILS # 0.07 x10^3/uL (0.04-0.54); MCHC 32.0 g/dl (32.3-36.5); MEAN CELL VOLUME 82.6 fl (79.0-92.2); MEAN PLT VOLUME 9.7 fl (9.4-12.4); MONOCYTE # 0.82 x10^3/uL (0.30-0.82); MONOCYTE % 12.3 % (5.3-12.2); RDW 18.1 % (12.0-15.6)
[2025-02-26 06:47] LABS: CO2 28.0 mmol/L (21-32); GLUCOSE,RANDOM 131.0 mg/dL (74-106)
[2025-02-26 06:49] LABS: SGPT/ALT 52.0 U/L (13-61)
[2025-02-26 06:50] LABS: CREATININE 0.4 mg/dL (0.55-1.3); SGOT/AST 19.0 U/L (15-37)
[2025-02-26 06:51] LABS: TOT PROT 7.5 g/dl (6.4-8.2)
[2025-02-26 06:52] LABS: ALK PHOS 97.0 U/L (45-117)
[2025-02-26] MEDS: methylPREDNISolone NA SUCC 40 MG/1 ML VIAL IVPUSH SCH (09:33)
[2025-02-26] MEDS: predniSONE 20 MG TABLET (UD) NGT SCH (16:09)
[2025-02-26] MEDS ORDERED: ACETAMINOPHEN 1000 MG/100 ML BAG IVPB PRN (16:47)
[2025-02-26] MEDS: ACETAMINOPHEN 650 MG/20.3 ML ORAL SOLUTION (CUPS) PEG PRN (19:39)
[2025-02-26] MEDS: ALBUTEROL SO4 2.5/IPRATROPIUM 0.5 INH SOL 3 ML VIAL.NEB. NEB PRN (21:43)
[2025-02-27] MEDS: PIPERACILLIN/TAZOB 3.375 GM 3.375 GM in DEXTROSE 5%-WATER - 50 ML IVPB SCH (00:40)
[2025-02-27] MEDS: ACETAMINOPHEN 1000 MG/100 ML BAG IVPB ONE (03:29)
[2025-02-27 06:39] LABS: MCHC 31.7 g/dl (32.3-36.5); MEAN CELL VOLUME 83.0 fl (79.0-92.2); MEAN PLT VOLUME 9.6 fl (9.4-12.4); RDW 18.3 % (12.0-15.6)
[2025-02-27 07:09] LABS: CO2 28.0 mmol/L (21-32); GLUCOSE,RANDOM 84.0 mg/dL (74-106)
[2025-02-27 07:12] LABS: CREATININE 0.4 mg/dL (0.55-1.3); SGOT/AST 30.0 U/L (15-37); SGPT/ALT 56.0 U/L (13-61)
[2025-02-27 07:14] LABS: TOT PROT 6.9 g/dl (6.4-8.2)
[2025-02-27 07:15] LABS: ALK PHOS 97.0 U/L (45-117)
[2025-02-27] MEDS: ACETYLCYSTEINE 20% 200MG/ML 4 ML VIAL *FOR ORAL / INH USE ONLY NEB SCH (20:18)
[2025-02-27] MEDS: ALBUTEROL SO4 0.083% IH SOL 2.5 MG/3 ML VIAL.NEB. NEB SCH (20:19)
[2025-02-28 06:38] LABS: ABSOLUTE IMMATURE GRANULOCYTES 0.03 x10^3/uL (0.0-0.031); BASOPHILS # 0.02 x10^3/uL (0.01-0.08); EOSINOPHIL % 3.2 % (0.8-7.0); EOSINOPHILS # 0.24 x10^3/uL (0.04-0.54); MCHC 31.1 g/dl (32.3-36.5); MEAN CELL VOLUME 84.0 fl (79.0-92.2); MEAN PLT VOLUME 9.4 fl (9.4-12.4); MONOCYTE # 0.94 x10^3/uL (0.30-0.82); MONOCYTE % 12.7 % (5.3-12.2); RDW 18.3 % (12.0-15.6)
[2025-02-28 06:54] LABS: CREATININE 0.4 mg/dL (0.55-1.3); GLUCOSE,RANDOM 104.0 mg/dL (74-106)
[2025-02-28 06:55] LABS: CO2 27.0 mmol/L (21-32); SGPT/ALT 57.0 U/L (13-61)
[2025-02-28 06:56] LABS: TOT PROT 7.2 g/dl (6.4-8.2)
[2025-02-28 06:57] LABS: ALK PHOS 94.0 U/L (45-117)
[2025-02-28 06:58] LABS: SGOT/AST 22.0 U/L (15-37)
[2025-02-28] MEDS: predniSONE 20 MG TABLET (UD) NGT SCH (09:42)
[2025-02-28] MEDS: VANCOMYCIN ORAL SOLUTION 125 MG/2.5 ML GT SCH (09:44)
[2025-02-28] MEDS: KCL 10 MEQ IVPB 10 MEQ/100 ML INFUS.BAG IVPB SCH (14:04)
[2025-03-01 06:40] LABS: MCHC 32.0 g/dl (32.3-36.5); MEAN CELL VOLUME 83.9 fl (79.0-92.2); MEAN PLT VOLUME 9.1 fl (9.4-12.4); RDW 18.6 % (12.0-15.6)
[2025-03-01 06:59] LABS: CO2 25.0 mmol/L (21-32); GLUCOSE,RANDOM 106.0 mg/dL (74-106)
[2025-03-01 07:02] LABS: CREATININE 0.4 mg/dL (0.55-1.3); SGOT/AST 20.0 U/L (15-37); SGPT/ALT 55.0 U/L (13-61)
[2025-03-01 07:04] LABS: TOT PROT 7.7 g/dl (6.4-8.2)
[2025-03-01 07:05] LABS: ALK PHOS 97.0 U/L (45-117)
[2025-03-01] MEDS: PIPERACILLIN/TAZOB 3.375 GM 3.375 GM in DEXTROSE 5%-WATER - 50 ML IVPB SCH (09:04)
[2025-03-01] MEDS: TERAZOSIN HCL 1 MG CAPSULE GT ONE (14:25)
[2025-03-02 06:15] LABS: MCHC 31.3 g/dl (32.3-36.5); MEAN CELL VOLUME 85.3 fl (79.0-92.2); MEAN PLT VOLUME 9.2 fl (9.4-12.4); RDW 18.6 % (12.0-15.6)
[2025-03-02 06:27] LABS: CO2 25.0 mmol/L (21-32); GLUCOSE,RANDOM 103.0 mg/dL (74-106)
[2025-03-02 06:30] LABS: CREATININE 0.3 mg/dL (0.55-1.3); SGOT/AST 13.0 U/L (15-37); SGPT/ALT 44.0 U/L (13-61)
[2025-03-02 06:31] LABS: TOT PROT 7.1 g/dl (6.4-8.2)
[2025-03-02 06:33] LABS: ALK PHOS 89.0 U/L (45-117)
[2025-03-02] MEDS: predniSONE 20 MG TABLET (UD) NGT SCH (09:01)
[2025-03-02] MEDS: PIPERACILLIN/TAZOB 3.375 GM 3.375 GM in DEXTROSE 5%-WATER - 50 ML IVPB ONE (14:28)
[2025-03-02] MEDS ORDERED: LORazepam 2 MG/ML SDV VIAL ONE (19:12)
[2025-03-02] MEDS: LORazepam 2 MG/ML SDV VIAL IVPUSH ONE (19:41)
[2025-03-03 06:46] LABS: ABSOLUTE IMMATURE GRANULOCYTES 0.02 x10^3/uL (0.0-0.031); BASOPHILS # 0.06 x10^3/uL (0.01-0.08); EOSINOPHIL % 4.4 % (0.8-7.0); EOSINOPHILS # 0.30 x10^3/uL (0.04-0.54); MCHC 31.2 g/dl (32.3-36.5); MEAN CELL VOLUME 85.1 fl (79.0-92.2); MEAN PLT VOLUME 9.3 fl (9.4-12.4); MONOCYTE # 0.84 x10^3/uL (0.30-0.82); MONOCYTE % 12.4 % (5.3-12.2); RDW 18.6 % (12.0-15.6)
[2025-03-03] MEDS: NAPHAZOLINE/PHENIRAMINE OPHTHALMIC 15 ML BOTTLE OU PRN (09:19)
[2025-03-03 14:40] LABS: EPI CELLS 10 /uL (0-25.1); HYALINE CASTS 0 /uL (0-3.1); URINE APPEARANCE CLOUDY; URINE BACTERIA 9 /uL (0-1359); URINE BILIRUBIN NEGATIVE (NEGATIVE); URINE COLOR YELLOW; URINE GLUCOSE (UA) NEGATIVE (NEGATIVE); URINE KETONE NEGATIVE (NEGATIVE); URINE LEUK ESTERASE 2+ (NEGATIVE); URINE NITRITE NEGATIVE (NEGATIVE); URINE PROTEIN NEGATIVE (NEGATIVE); URINE RBC 29 /uL (0-23.9); URINE UROBILINOGEN 1.0 mg/dL (0.2-1.0)
[2025-03-03 15:09] LABS: YEAST PRESENT (NEGATIVE)
[2025-03-03] MEDS: SENNOSIDES 8.8 MG/5 ML SYRUP PO SCH (21:48)
[2025-03-04] MEDS: predniSONE 10 MG TABLET (UD) NGT SCH (09:25)
[2025-03-04] MEDS: POLYETHYLENE GLYCOL (HEALTHYLAX) 3350 17 GM PACKET PO PRN (09:25)
[2025-03-04 09:30] LABS: MCHC 31.2 g/dl (32.3-36.5); MEAN CELL VOLUME 84.9 fl (79.0-92.2); MEAN PLT VOLUME 9.0 fl (9.4-12.4); RDW 19.0 % (12.0-15.6)
[2025-03-04 10:10] LABS: CO2 26.0 mmol/L (21-32); CREATININE 0.3 mg/dL (0.55-1.3); GLUCOSE,RANDOM 92.0 mg/dL (74-106)
[2025-03-04 10:12] LABS: SGOT/AST 26.0 U/L (15-37); SGPT/ALT 45.0 U/L (13-61)
[2025-03-04 10:13] LABS: ALK PHOS 91.0 U/L (45-117); TOT PROT 7.2 g/dl (6.4-8.2)
[2025-03-05 06:42] LABS: MCHC 31.1 g/dl (32.3-36.5); MEAN CELL VOLUME 85.7 fl (79.0-92.2); MEAN PLT VOLUME 9.4 fl (9.4-12.4); RDW 18.9 % (12.0-15.6)
[2025-03-05 07:23] LABS: CO2 28.0 mmol/L (21-32); GLUCOSE,RANDOM 85.0 mg/dL (74-106)
[2025-03-05 07:26] LABS: CREATININE 0.4 mg/dL (0.55-1.3)
[2025-03-05] MEDS: ALBUTEROL SO4 0.083% IH SOL 2.5 MG/3 ML VIAL.NEB. NEB ONE (12:41)
[2025-03-05] MEDS: ALBUTEROL SO4 0.083% IH SOL 2.5 MG/3 ML VIAL.NEB. NEB PRN (16:31)
[2025-03-05] MEDS: PIPERACILLIN/TAZOB 3.375 GM 3.375 GM in DEXTROSE 5%-WATER - 50 ML IVPB SCH ×2 (21:50)
[2025-03-06 06:43] LABS: MCHC 31.2 g/dl (32.3-36.5); MEAN CELL VOLUME 85.6 fl (79.0-92.2); MEAN PLT VOLUME 9.0 fl (9.4-12.4); RDW 18.8 % (12.0-15.6)
[2025-03-06 07:11] LABS: CO2 28.0 mmol/L (21-32)
[2025-03-06 07:12] LABS: GLUCOSE,RANDOM 87.0 mg/dL (74-106)
[2025-03-06 07:15] LABS: CREATININE 0.4 mg/dL (0.55-1.3)
[2025-03-06] MEDS: BACLOFEN 10 MG TABLET (FP) GT SCH (14:31)
[2025-03-07 09:37] LABS: ABSOLUTE IMMATURE GRANULOCYTES 0.05 x10^3/uL (0.0-0.031); BASOPHILS # 0.04 x10^3/uL (0.01-0.08); EOSINOPHIL % 1.8 % (0.8-7.0); EOSINOPHILS # 0.15 x10^3/uL (0.04-0.54); IMMATURE PLATELET FRACTION # 7.80 x10^3/uL; MCHC 30.2 g/dl (32.3-36.5); MEAN CELL VOLUME 88.7 fl (79.0-92.2); MEAN PLT VOLUME 9.4 fl (9.4-12.4); MONOCYTE # 0.75 x10^3/uL (0.30-0.82); MONOCYTE % 8.9 % (5.3-12.2); RDW 18.9 % (12.0-15.6)
[2025-03-07 12:05] LABS: CO2 25.0 mmol/L (21-32); GLUCOSE,RANDOM 90.0 mg/dL (74-106)
[2025-03-07 12:08] LABS: CREATININE 0.3 mg/dL (0.55-1.3); SGOT/AST 21.0 U/L (15-37); SGPT/ALT 39.0 U/L (13-61)
[2025-03-07 12:10] LABS: TOT PROT 7.1 g/dl (6.4-8.2)
[2025-03-07 12:11] LABS: ALK PHOS 91.0 U/L (45-117)
[2025-03-07 14:44] LABS: MCHC 30.9 g/dl (32.3-36.5); MEAN CELL VOLUME 86.0 fl (79.0-92.2); MEAN PLT VOLUME 9.1 fl (9.4-12.4); RDW 19.0 % (12.0-15.6)
[2025-03-07] MEDS: guaiFENesin 200 MG/10 ML 10 ML UNIT-DOSE CUPS GT ONE (22:39)
[2025-03-07 22:52] LABS: MCHC 31.7 g/dl (32.3-36.5); MEAN CELL VOLUME 84.5 fl (79.0-92.2); MEAN PLT VOLUME 9.2 fl (9.4-12.4); RDW 18.8 % (12.0-15.6)
[2025-03-08 07:40] LABS: MCHC 30.7 g/dl (32.3-36.5); MEAN CELL VOLUME 86.1 fl (79.0-92.2); MEAN PLT VOLUME 9.3 fl (9.4-12.4); RDW 18.6 % (12.0-15.6)
[2025-03-08 07:45] LABS: CO2 26.0 mmol/L (21-32); GLUCOSE,RANDOM 89.0 mg/dL (74-106)
[2025-03-08 07:49] LABS: CREATININE 0.3 mg/dL (0.55-1.3)
[2025-03-08] MEDS: methylPREDNISolone NA SUCC 40 MG/1 ML VIAL IVPUSH SCH (14:58)
[2025-03-09 13:23] LABS: MCHC 31.9 g/dl (32.3-36.5); MEAN CELL VOLUME 85.0 fl (79.0-92.2); MEAN PLT VOLUME 9.2 fl (9.4-12.4); RDW 18.7 % (12.0-15.6)
[2025-03-09] MEDS: ALBUTEROL SO4 2.5/IPRATROPIUM 0.5 INH SOL 3 ML VIAL.NEB. NEB SCH (14:35)
[2025-03-09 14:46] LABS: CO2 25.0 mmol/L (21-32); CREATININE 0.4 mg/dL (0.55-1.3); GLUCOSE,RANDOM 128.0 mg/dL (74-106)
[2025-03-09] MEDS: PANTOPRAZOLE SODIUM 40 MG VIAL IVPUSH SCH (16:35)
[2025-03-10 07:09] LABS: ABSOLUTE IMMATURE GRANULOCYTES 0.05 x10^3/uL (0.0-0.031); BASOPHILS # 0.01 x10^3/uL (0.01-0.08); EOSINOPHIL % 0.0 % (0.8-7.0); EOSINOPHILS # 0.00 x10^3/uL (0.04-0.54); MCHC 31.2 g/dl (32.3-36.5); MEAN CELL VOLUME 85.0 fl (79.0-92.2); MEAN PLT VOLUME 9.2 fl (9.4-12.4); MONOCYTE # 0.57 x10^3/uL (0.30-0.82); MONOCYTE % 6.8 % (5.3-12.2); RDW 18.8 % (12.0-15.6)
[2025-03-10 07:39] LABS: CO2 25.0 mmol/L (21-32); GLUCOSE,RANDOM 102.0 mg/dL (74-106)
[2025-03-10 07:42] LABS: CREATININE 0.5 mg/dL (0.55-1.3); SGOT/AST 17.0 U/L (15-37); SGPT/ALT 41.0 U/L (13-61)
[2025-03-10 07:44] LABS: TOT PROT 8.6 g/dl (6.4-8.2)
[2025-03-10 07:45] LABS: ALK PHOS 114.0 U/L (45-117)
[2025-03-12] MEDS: AMINO ACIDS/PROTEIN HYDROLYS 30 ML LIQUID.PKT GT SCH (16:52)
[2025-03-13 06:59] LABS: MCHC 31.5 g/dl (32.3-36.5); MEAN CELL VOLUME 84.0 fl (79.0-92.2); MEAN PLT VOLUME 9.5 fl (9.4-12.4); RDW 18.3 % (12.0-15.6)
[2025-03-13 07:33] LABS: CO2 29.0 mmol/L (21-32); GLUCOSE,RANDOM 77.0 mg/dL (74-106)
[2025-03-13 07:36] LABS: CREATININE 0.4 mg/dL (0.55-1.3); SGOT/AST 30.0 U/L (15-37); SGPT/ALT 61.0 U/L (13-61)
[2025-03-13 07:38] LABS: TOT PROT 7.6 g/dl (6.4-8.2)
[2025-03-13 07:39] LABS: ALK PHOS 99.0 U/L (45-117)
[2025-03-13 09:50] VITALS: TEMP 96.8
[2025-03-13] MEDS ORDERED: methylPREDNISolone NA SUCC 40 MG/1 ML VIAL IVPUSH SCH (10:00)
[2025-03-13] MEDS: predniSONE 20 MG TABLET (UD) PEG SCH (10:09)
[2025-03-13 12:24] VITALS: BP 113/66; PULSE 79; RESP 18
== END 2025-03-13 15:00 | DRG 137 ==
LOC: JER 04:03 → JERBED 05:31 → J2W 08:25 → JICU 09:50 → J2W 02-19 12:02
PROVIDERS: ADMIT Internal Medicine; ATTEND Internal Medicine
PROC: 5A1945Z Respiratory Ventilation, 24-96 Consecutive Hours (ICD-10-PCS; principal; 2025-02-15)
PROC: 0BH17EZ Insertion of Endotracheal Airway into Trachea, Via Natural or Artificial Opening (ICD-10-PCS; 2025-02-15)
DX: J69.0 Pneumonitis due to inhalation of food and vomit (principal); J96.01 Acute respiratory failure with hypoxia; G80.0 Spastic quadriplegic cerebral palsy; Q02 Microcephaly; E87.6 Hypokalemia; G40.909 Epilepsy, unspecified, not intractable, without status epilepticus; R62.50 Unspecified lack of expected normal physiological development in childhood; R33.9 Retention of urine, unspecified; R00.1 Bradycardia, unspecified; K21.9 Gastro-esophageal reflux disease without esophagitis
CPT/HCPCS: 0241U-QW; 31500; 36415; 71045-TC-FY; 74018-TC-FY; 80048; 80053; 81003; 82550; 82553; 82803; 82962; 83605; 83735; 83880; 84100; 84436; 84443; 84484; 85025; 85027; 85610; 85730; 86850; 86900; 86901; 87040; 87070; 87081; 87086; 87205; 87481; 87635; 87899; 93005; 93010; 94002; 94640; 99291; J0475